=== PATIENT | female | born 1980 | race American Indian/Alaskan Native ===

== ENCOUNTER 2016-11-11 17:57 | Emergency (ER) | payer OTHER ==
[2016-11-11] MEDS ORDERED: ZOFRAN ONE (18:50)
[2016-11-11] MEDS ORDERED: APRESOLINE IV ONE (18:54)
[2016-11-11] MEDS ORDERED: ZOFRAN IV ONE (18:54)
[2016-11-11] MEDS ORDERED: MORPHINE IV ONE (18:54)
[2016-11-11] MEDS ORDERED: REGLAN IV ONE (18:54)
[2016-11-11] MEDS ORDERED: REGLAN ONE (18:56)
--- NOTE | 2016-11-11 19:01 | Emergency Department Report ---
ED Abdominal Pain HPI - General Chief Complaint: Chest Pain Stated Complaint: N/V Time Seen by Provider: 11/11/16 18:47 Source: patient, EMS Mode of arrival: Stretcher Limitations: No Limitations - History of Present Illness Initial Comments: 36 years old female history of diabetes and diabetic gastroparesis, history of high blood pressure. Brought by EMS today for intractable vomiting and abdominal pain. Patient was at [facility] ER today and she was discharged home while she is still vomiting. Patient denied any fever no diarrhea. Describes her pain as diffuse and crampy in nature. Last episode like this for 3 years ago. MD Complaint: abdominal pain -: Last night Location: diffuse Severity: moderate Severity scale (0 -10): 6 Worsens With: eating, vomiting Associated Symptoms: nausea, vomiting. denies: diarrhea, fever, chills, hematemesis, hematochezia, melena, hematuria - Related Data Previous Rx's Medication Instructions Recorded Last Taken Type Lactulose 10 gm PO DAILY PRN #150 ml 11/12/16 Unknown Rx Ondansetron [Zofran Odt] 4 mg PO Q8HR PRN #14 tab.rapdis 11/12/16 Unknown Rx Promethazine [Phenergan SUPPOS] 50 mg [place] Q6H PRN #30 supp.rect 11/12/16 Unknown Rx oxyCODONE /ACETAMINOPHEN [Percocet 1 tab PO Q6HR PRN #10 tablet 11/12/16 Unknown Rx 5/325] Allergies Allergy/AdvReac Type Severity Reaction Status Date / Time No Known Allergies Allergy Verified 11/11/16 18:34 ED Review of Systems ROS: Stated complaint: N/V Other details as noted in HPI Comment: All other systems reviewed and negative Constitutional: denies: chills, fever Respiratory: denies: cough, orthopnea, shortness of breath, SOB with exertion Cardiovascular: denies: palpitations, orthopnea Gastrointestinal: abdominal pain, nausea, vomiting. denies: diarrhea, constipation Neurological: denies: headache, weakness, numbness ED Past Medical Hx - Past Medical History Previous Medical History?: Yes Hx Hypertension: Yes Hx Diabetes: Yes Additional medical history: gastroparesis, cardiomyopathy - Surgical History Past Surgical History?: No - Social History Smoking Status: Never Smoker Substance Use Type: None - Medications Home Medications: Home Medications Medication Instructions Recorded Confirmed Last Taken Type Lactulose 10 gm PO DAILY PRN #150 ml 11/12/16 Unknown Rx Ondansetron [Zofran Odt] 4 mg PO Q8HR PRN #14 tab.rapdis 11/12/16 Unknown Rx Promethazine [Phenergan SUPPOS] 50 mg NV Q6H PRN #30 supp.rect 11/12/16 Unknown Rx oxyCODONE /ACETAMINOPHEN [Percocet 1 tab PO Q6HR PRN #10 tablet 11/12/16 Unknown Rx 5/325] ED Physical Exam - General Limitations: No Limitations General appearance: alert, in distress - Head Head exam: Present: normocephalic - Eye Eye exam: Present: normal appearance - ENT ENT exam: Present: normal exam - Neck Neck exam: Present: normal inspection, full ROM. Absent: meningismus, lymphadenopathy - Respiratory Respiratory exam: Present: normal lung sounds bilaterally. Absent: wheezes, rales, rhonchi, accessory muscle use, decreased breath sounds, prolonged expiratory - Cardiovascular Cardiovascular Exam: Present: tachycardia - GI/Abdominal GI/Abdominal exam: Present: soft, tenderness. Absent: distended, guarding, rebound, rigid, normal bowel sounds, mass, bruit, pulsatile mass, hernia - Extremities Exam Extremities exam: Present: normal inspection - Back Exam Back exam: Present: normal inspection - Neurological Exam Neurological exam: Present: alert, oriented X3, CN II-XII intact, normal gait - Skin Skin exam: Present: warm, normal color ED Course Vital Signs 11/11/16 11/11/16 11/11/16 18:12 19:16 20:16 Temperature 99.5 F Pulse Rate 112 H 115 H Respiratory 16 20 16 Rate Blood Pressure 185/110 204/118 O2 Sat by Pulse 100 100 Oximetry - Reevaluation(s) Reevaluation #1: 11/12/16 00:41 Patient stated that she is feeling better and no more vomiting since she had the Benadryl. Since this is her second visit today for intractable vomiting I recommended admission but patient and her significant others they want to go home with prescription. I informed them that, she can come back if her symptoms don't resolve with outpatient medication. ED Medical Decision Making - Lab Data Result diagrams: 11/11/16 19:00 11/11/16 21:51 Critical care attestation.: If time is entered above; I have spent that time in minutes in the direct care of this critically ill patient, excluding procedure time. ED Disposition Clinical Impression: Abdominal pain, Gastroparesis, Intractable vomiting with nausea Disposition: DC-01 TO HOME OR SELFCARE Is pt being admited?: No Does the pt Need Aspirin: No Condition: Stable Instructions: Acute Nausea and Vomiting (ED), Abdominal Pain (ED) Referrals: PRIMARY CARE, [Primary Care Provider] - 3-5 Days
[2016-11-11] MEDS ORDERED: LOPRESSOR IV ONE ×2 (19:13→19:16)
[2016-11-11 19:14] LABS: Basophils % (Auto) 0.9 % (0.0-1.8); Hematocrit 32.8 % (30.3-42.9); Hemoglobin 10.9 gm/dl (10.1-14.3); Mean Corpuscular HGB Conc 33 % (30-34); Mean Corpuscular Hemoglobin 26 pg (28-32); Mean Corpuscular Volume 80 fl (79-97); Platelet Count 481 K/mm3 (140-440); Red Blood Count 4.11 M/mm3 (3.65-5.03); Red Cell Distribution Width 14.8 % (13.2-15.2); White Blood Count 14.4 K/mm3 (4.5-11.0)
[2016-11-11] MEDS ORDERED: NACL ONE ×2 (20:10→23:22)
[2016-11-11] MEDS ORDERED: NITROSTAT SL ONE (21:02)
[2016-11-11 21:23] LABS: Bilirubin,Urine NEG (Negative); Blood,Urine LG (Negative); Ketones,Urine 80 mg/dL (Negative); Leukocyte Esterase,Urine NEG (Negative); Mucus,Urine FEW /HPF; Nitrite,Urine NEG (Negative); Urobilinogen,Urine < 2.0 mg/dL (<2.0)
[2016-11-11 21:24] LABS: Protein,Urine >500 mg/dL (Negative); RBC,Urine > 182.0 /HPF (0.0-6.0)
[2016-11-11 23:11] LABS: Blood Urea Nitrogen 23 mg/dL (7-17)
[2016-11-11 23:47] LABS: Anion Gap 27 mmol/L; BUN/Creatinine Ratio 18.46; Blood Urea Nitrogen 24 mg/dL (7-17); Calcium 8.9 mg/dL (8.4-10.2); Carbon Dioxide 21 mmol/L (22-30); Chloride 99.1 mmol/L (98-107); Glucose 230 mg/dL (65-100); Potassium 4.4 mmol/L (3.6-5.0); Sodium 143 mmol/L (137-145)
--- NOTE | 2016-11-12 | Cat Scan Report ---
FINAL REPORT PROCEDURE: CT ABDOMEN PELVIS W CON TECHNIQUE: Computerized axial tomography of the abdomen and pelvis was performed after the IV injection of iodinated nonionic contrast. HISTORY: abdominal pain EPIGASTRIC COMPARISON: No prior studies are available for comparison. FINDINGS: There are mild bilateral pleural effusions. Subsegmental atelectatic changes are noted in bilateral lung bases.. Liver, spleen, pancreas and adrenal glands are within normal limits. Bilateral kidneys demonstrate uniform enhancement without hydronephrosis. Aorta is of normal caliber. There is no free fluid or free air. Status post cholecystectomy. Small bowel loops are within normal limits. Large amount of residual stool is noted. Appendix is normal. IMPRESSION: Large amount of residual stool is noted consistent with constipation. Otherwise no acute intra-abdominal or pelvic pathology. Mild degree bilateral pleural effusions. Subsegmental atelectatic changes are noted in bilateral lower lungs. Any underlying early infiltrates cannot be excluded.
[2016-11-12] MEDS ORDERED: BENADRYL ONE (00:07)
[2016-11-12] MEDS ORDERED: BENADRYL IV ONE (00:11)
[2016-11-12 01:32] VITALS: BP 160/88
--- NOTE | 2016-11-12 08:00 | XRay Report ---
PORTABLE CHEST INDICATION: Chest pain, difficulty breathing. COMPARISON: None similar at this institution. FINDINGS: Portable, frontal chest radiograph suggests borderline cardiomegaly. Slight increased bronchovascular prominence centrally, possibly congestive. No significant pleural effusions however. EKG leads. Intact bones. Possible cholecystectomy clips. CONCLUSION: Slight cardiomegaly and possible central congestion, as described. Please correlate. Thank you for the opportunity to participate in this patient's care.
== END 2016-11-12 01:10 | disposition home or self-care (01) ==
LOC: ED 17:57
DX: K31.84 Gastroparesis (principal); R11.2 Nausea with vomiting, unspecified; R10.84 Generalized abdominal pain
CPT/HCPCS: 36415; 71010; 74177; 80048; 81001; 82565; 82962; 83690; 84484; 84520; 84703; 85025; 93005; 93010; 96374; 96375; 99285; J1200; J2270; J2405; J2765; Q9967; J0360

== ENCOUNTER 2016-12-26 15:29 | Inpatient (IN) | payer OTHER ==
[2016-12-26] MEDS ORDERED: ATIVAN ONE ×2 (17:16→17:44)
[2016-12-26] MEDS ORDERED: KEPPRA 1,000 MG in NACL 0.9% 100 ML IV ONE (17:20)
[2016-12-26] MEDS ORDERED: HALDOL IM ONE (17:30)
[2016-12-26] MEDS ORDERED: ATIVAN IV ONE ×2 (17:30→19:46)
[2016-12-26] MEDS ORDERED: GEODON IM ONE ×2 (17:49→19:43)
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
[2016-12-26] MEDS ORDERED: QUELICIN ONE (18:00)
[2016-12-26] MEDS ORDERED: AMIDATE IV ONE (18:00)
[2016-12-26] MEDS ORDERED: DIPRIVAN 10 MG/ML 1,000 MG/100 ML BOTTLE IV ONE (18:06)
[2016-12-26] MEDS ORDERED: VASELINE LIP THERAPY TP PRN (18:08)
[2016-12-26] MEDS ORDERED: ARTIFICIAL TEARS OPHTH OINT OU PRN (18:08)
[2016-12-26] MEDS: DIPRIVAN 10 MG/ML 1,000 MG/100 ML BOTTLE IV SCH (18:15)
[2016-12-26] MEDS ORDERED: NACL 0.9% 1000 ML 1,000 ML IV ONE ×2 (18:33→18:34)
[2016-12-26] MEDS ORDERED: DIPRIVAN 10 MG/ML IV ONE (18:49)
[2016-12-26 18:56] LABS: Urine Drugs of Abuse Note Disclamer
[2016-12-26] MEDS ORDERED: NACL 0.9% 500 ML IV SCH (19:00)
[2016-12-26 19:03] LABS: Basophils % (Auto) 0.3 % (0.0-1.8); Eosinophils % (Auto) 0.1 % (0.0-4.3); Hematocrit 28.1 % (30.3-42.9); Hemoglobin 9.8 gm/dl (10.1-14.3); Mean Corpuscular HGB Conc 35 % (30-34); Mean Corpuscular Hemoglobin 27 pg (28-32); Mean Corpuscular Volume 79 fl (79-97); Platelet Count 393 K/mm3 (140-440); Red Blood Count 3.58 M/mm3 (3.65-5.03); Red Cell Distribution Width 14.2 % (13.2-15.2); White Blood Count 13.4 K/mm3 (4.5-11.0)
[2016-12-26 19:05] LABS: Bilirubin,Urine NEG (Negative); Blood,Urine MOD (Negative); Ketones,Urine NEG (Negative); Leukocyte Esterase,Urine NEG (Negative); Nitrite,Urine NEG (Negative); Urobilinogen,Urine < 2.0 mg/dL (<2.0)
[2016-12-26 19:12] LABS: Protein,Urine >500 mg/dL (Negative)
[2016-12-26 19:19] LABS: Albumin 2.8 g/dL (3.9-5); Albumin/Globulin Ratio 0.9 %; Bilirubin,Total 0.6 mg/dL (0.1-1.2); Chloride 81.6 mmol/L (98-107); Total Protein 5.8 g/dL (6.3-8.2)
[2016-12-26 19:30] LABS: Potassium 2.7 mmol/L (3.6-5.0)
[2016-12-26 19:34] LABS: ABG Base Excess 6.2 mmol/L (-2.0-3.0); ABG HCO3 29.4 mmol/L (20.0-26.0); ABG Oxygen Saturation 93.4 % (95.0-99.0); ABG PH 7.519 pH Units (7.350-7.450); ABG PO2 55.5 mm Hg (80.0-90.0)
[2016-12-26] MEDS ORDERED: VANCOMYCIN/NS 1 GM/250 ML 1 GM/250 ML BAG IV ONE (19:38)
[2016-12-26] MEDS ORDERED: K-DUR PO ONE (19:38)
[2016-12-26] MEDS ORDERED: BENADRYL IV ONE (19:42)
[2016-12-26] MEDS: ZOSYN/NS 3.375GM/50ML 3.375 GM/50 ML BAG IV SCH (20:31)
--- NOTE | 2016-12-26 20:51 | Cat Scan Report ---
FINAL REPORT PROCEDURE: CT HEAD/BRAIN WO CON TECHNIQUE: Computerized tomography of the head was performed without contrast material. HISTORY: new onset seizure COMPARISON: No prior studies are available for comparison. FINDINGS: Skull and scalp: Normal. Paranasal sinuses: Normal. Ventricles and subarachnoid spaces: Normal. Cerebrum: No evidence of hemorrhage, acute infarction or mass . Cerebellum and brainstem: No evidence of hemorrhage, acute infarction or mass. Vasculature: Normal. Comments: None. IMPRESSION: Normal Examination
[2016-12-26] MEDS ORDERED: D50W (25GM) Syringe IV PRN (21:56)
[2016-12-26 22:13] LABS: Phosphorous 3.3 mg/dL (2.5-4.5)
[2016-12-26] MEDS ORDERED: DULCOLAX PR PRN (22:18)
[2016-12-26] MEDS ORDERED: TYLENOL PO PRN (22:18)
[2016-12-26] MEDS ORDERED: ZOFRAN IV PRN (22:18)
[2016-12-26] MEDS ORDERED: MILK OF MAGNESIA PO PRN (22:18)
[2016-12-26] MEDS ORDERED: TYLENOL PR PRN (22:18)
--- NOTE | 2016-12-26 22:25 | History and Physical Report ---
History of Present Illness Date of examination: 12/26/16 History of present illness: There is a 36-year-old man with a history of diabetes complicated by gastroparesis, hypertension was brought to the emergency room because she had a seizure at home. The at bedside stated she had a flare of her gastroparesis for 1 week. Today in the emergency room she also had another seizure. Her glucose was elevated. The patient was intubated for airway protection after his seizure in the emergency room. A review of system is unobtainable PAST MEDICAL HISTORY: diabetes complicated by gastroparesis, hypertension PAST SURGICAL HISTORY: Cholecystectomy FAMILY HISTORY: Hypertension SOCIAL HISTORY: Social alcohol, no tobacco drugs Medications and Allergies Allergies Allergy/AdvReac Type Severity Reaction Status Date / Time No Known Allergies Allergy Verified 11/11/16 18:34 Home Medications Medication Instructions Recorded Confirmed Last Taken Type Ondansetron [Zofran Odt] 4 mg PO Q8HR PRN #14 tab.rapdis 11/12/16 12/26/16 Unknown Rx Promethazine [Phenergan SUPPOS] 50 mg [place] Q6H PRN #30 supp.rect 11/12/16 Unknown Rx Insulin Regular, Human [Novolin R] 22 units SQ AC 12/26/16 12/26/16 Unknown History Active Meds: Active Medications Acetaminophen (Tylenol) 650 mg PO Q4H PRN PRN Reason: Pain MILD(1-3)/Fever >100.5/RICHARDSON Acetaminophen (Tylenol) 650 mg MN Q4H PRN PRN Reason: Pain MILD(1-3)/Fever >100.5/[place] Bisacodyl (Dulcolax) 10 mg MN QDAY PRN PRN Reason: Constipation unrelieved by MOM Dextrose (D50w (25gm) Syringe) 0 ml IV ONCE PRN PRN Reason: Hypoglycemia Enoxaparin Sodium (Lovenox) 30 mg SUB-Q QDAY GUZMAN Hydrophilic Ointment (Vaseline Lip Therapy) 1 applic TP Q2HR PRN PRN Reason: Dry Lips Propofol (Diprivan 10 Mg/Ml) 1,000 mg in 100 mls @ 5.25 mls/hr IV TITR GUZMAN; 5 MCG/KG/MIN PRN Reason: Protocol Last Titration: 12/26/16 20:00 Dose: 30 mcg/kg/min, 31.5 mls/hr Piperacillin Sod/Tazobactam Sod (Zosyn/Ns 3.375gm/50ml) 3.375 gm in 50 mls @ 100 mls/hr IV Q6H GUZMAN Last Admin: 12/26/16 20:31 Dose: 100 mls/hr Insulin Human Regular 100 (units/ Sodium Chloride) 100 mls @ 1 mls/hr IV TITR GUZMAN; 1 UNITS/HR PRN Reason: Protocol Sodium Chloride (Nacl 0.9% 1000 Ml) 1,000 mls @ 150 mls/hr IV DIRECT GUZMAN Magnesium Hydroxide (Milk Of Magnesia) 30 ml PO Q4H PRN PRN Reason: Constipation Multi-Ingred Cream/Lotion/Oil/Oint (Artificial Tears Ophth Oint) 1 applic OU Q4HR PRN PRN Reason: Dry Eye(s) Ondansetron HCl (Zofran) 4 mg IV Q8H PRN PRN Reason: N/V unrelieved by Reglan Sodium Chloride (Nacl 0.9% 500 Ml) 1 ml IV DIRECT GUZMAN Exam - Physical Exam Narrative exam: Gen. appearance: Patient lying in bed in no acute distress, intubated HEENT: Normocephalic/atraumatic, pupils equal round reactive to light, unable to do extraocular movements, no scleral icterus, no JVD or thyromegaly or nodule , neck is supple, mucous membrane moist, unable to examine oral cavity Heart: S1-S2, regular rate and rhythm Lungs: Clear to auscultation bilateral breathing comfortable Abdomen: Positive bowel sounds, soft, nondistended, no organomegaly Extremities: No edema, cyanosis, clubbing Neuro:: Sedated Skin: No rash, nodules, warm dry - Constitutional Vitals: Temp Pulse Resp BP Pulse Ox 104 H 14 124/70 100 12/26/16 21:01 12/26/16 21:01 12/26/16 21:01 12/26/16 21:01 Results - Labs CBC & Chem 7: 12/30/16 05:00 12/29/16 09:12 Labs: Abnormal lab results 12/26/16 12/26/16 12/26/16 Range/Units 17:41 18:35 18:35 WBC 13.4 H (4.5-11.0) K/mm3 RBC 3.58 L (3.65-5.03) M/mm3 Hgb 9.8 L (10.1-14.3) gm/dl Hct 28.1 L (30.3-42.9) % MCH 27 L (28-32) pg MCHC 35 H (30-34) % Lymph % (Auto) 5.4 L (13.4-35.0) % Lymph # 0.7 L (1.2-5.4) K/mm3 Mercer # 0.9 H (0.0-0.8) K/mm3 Seg Neutrophils % 87.2 H (40.0-70.0) % Seg Neutrophils # 11.7 H (1.8-7.7) K/mm3 ABG pH (7.350-7.450) pH Units ABG pO2 (80.0-90.0) mm Hg ABG HCO3 (20.0-26.0) mmol/L ABG O2 Saturation (95.0-99.0) % ABG Base Excess (-2.0-3.0) mmol/L ABG Hemoglobin (12.0-16.0) gm/dl VBG pH (7.320-7.420) Oxyhemoglobin (95.0-99.0) % Potassium 2.7 L* (3.6-5.0) mmol/L BUN 28 H (7-17) mg/dL Creatinine 2.1 H (0.7-1.2) mg/dL Glucose 651 H* (65-100) mg/dL POC Glucose > 500 H (70-105) Lactic Acid (0.7-2.0) mmol/L Total Protein 5.8 L (6.3-8.2) g/dL Albumin 2.8 L (3.9-5) g/dL Salicylates (2.8-20.0) mg/dL 12/26/16 12/26/16 12/26/16 Range/Units 18:35 18:35 18:58 WBC (4.5-11.0) K/mm3 RBC (3.65-5.03) M/mm3 Hgb (10.1-14.3) gm/dl Hct (30.3-42.9) % MCH (28-32) pg MCHC (30-34) % Lymph % (Auto) (13.4-35.0) % Lymph # (1.2-5.4) K/mm3 Mercer # (0.0-0.8) K/mm3 Seg Neutrophils % (40.0-70.0) % Seg Neutrophils # (1.8-7.7) K/mm3 ABG pH (7.350-7.450) pH Units ABG pO2 (80.0-90.0) mm Hg ABG HCO3 (20.0-26.0) mmol/L ABG O2 Saturation (95.0-99.0) % ABG Base Excess (-2.0-3.0) mmol/L ABG Hemoglobin (12.0-16.0) gm/dl VBG pH 7.467 H (7.320-7.420) Oxyhemoglobin (95.0-99.0) % Potassium (3.6-5.0) mmol/L BUN (7-17) mg/dL Creatinine (0.7-1.2) mg/dL Glucose (65-100) mg/dL POC Glucose (70-105) Lactic Acid 6.20 H* (0.7-2.0) mmol/L Total Protein (6.3-8.2) g/dL Albumin (3.9-5) g/dL Salicylates < 0.3 L (2.8-20.0) mg/dL 12/26/16 12/26/16 Range/Units 19:20 21:06 WBC (4.5-11.0) K/mm3 RBC (3.65-5.03) M/mm3 Hgb (10.1-14.3) gm/dl Hct (30.3-42.9) % MCH (28-32) pg MCHC (30-34) % Lymph % (Auto) (13.4-35.0) % Lymph # (1.2-5.4) K/mm3 Mercer # (0.0-0.8) K/mm3 Seg Neutrophils % (40.0-70.0) % Seg Neutrophils # (1.8-7.7) K/mm3 ABG pH 7.519 H (7.350-7.450) pH Units ABG pO2 55.5 L (80.0-90.0) mm Hg ABG HCO3 29.4 H (20.0-26.0) mmol/L ABG O2 Saturation 93.4 L (95.0-99.0) % ABG Base Excess 6.2 H (-2.0-3.0) mmol/L ABG Hemoglobin 8.9 L (12.0-16.0) gm/dl VBG pH (7.320-7.420) Oxyhemoglobin 91.3 L (95.0-99.0) % Potassium (3.6-5.0) mmol/L BUN (7-17) mg/dL Creatinine (0.7-1.2) mg/dL Glucose (65-100) mg/dL POC Glucose > 500 H (70-105) Lactic Acid (0.7-2.0) mmol/L Total Protein (6.3-8.2) g/dL Albumin (3.9-5) g/dL Salicylates (2.8-20.0) mg/dL - Imaging and Cardiology CT Scan - head: report reviewed Assessment and Plan Assessment HONK New onset seizure probably secondary to elevated glucose Hypertension Hypokalemia Plan Admit to medicine Start IV fluids, insulin drip Monitor finger sticks, serum electrolytes Obtain EEG, consult neurology Change propofol to Ativan drip Consult critical care, replete potassium DVT prophylaxis
[2016-12-26 22:56] LABS: Calcium 8.6 mg/dL (8.4-10.2); Chloride 92.7 mmol/L (98-107)
[2016-12-26 23:22] LABS: Potassium 2.9 mmol/L (3.6-5.0)
[2016-12-26] MEDS ORDERED: KCL 10MEQ/100ML 10 MEQ/100 ML BAG IV ONE (23:25)
[2016-12-27] MEDS: DIPRIVAN 10 MG/ML 1,000 MG/100 ML BOTTLE IV SCH ×4 (00:55→20:51)
[2016-12-27 02:18] LABS: ABG Base Excess 4.9 mmol/L (-2.0-3.0); ABG HCO3 28.9 mmol/L (20.0-26.0); ABG Oxygen Saturation 99.4 % (95.0-99.0); ABG PCO2 40.1 mm Hg; ABG PH 7.475 pH Units (7.350-7.450); ABG PO2 228.4 mm Hg (80.0-90.0)
[2016-12-27] MEDS: NACL 0.9% 1000 ML 1,000 ML IV SCH ×3 (02:22→17:21)
[2016-12-27] MEDS: KCL 10MEQ/100ML 10 MEQ/100 ML BAG IV SCH ×6 (02:48→11:45)
[2016-12-27] MEDS: ZOSYN/NS 3.375GM/50ML 3.375 GM/50 ML BAG IV SCH ×2 (02:59→10:10)
[2016-12-27 03:23] LABS: Calcium 8.3 mg/dL (8.4-10.2); Chloride 100.2 mmol/L (98-107)
[2016-12-27 03:34] LABS: Potassium 2.5 mmol/L (3.6-5.0)
[2016-12-27 05:03] LABS: Calcium 8.3 mg/dL (8.4-10.2); Chloride 101.7 mmol/L (98-107)
[2016-12-27 05:04] LABS: Potassium 2.8 mmol/L (3.6-5.0)
[2016-12-27 07:03] LABS: Calcium 8.3 mg/dL (8.4-10.2)
[2016-12-27 07:13] LABS: Potassium 2.7 mmol/L (3.6-5.0)
--- NOTE | 2016-12-27 09:17 | XRay Report ---
AP CHEST :12/26/16 15:29:00 CLINICAL: Post intubation. COMPARISON:11/11/16 FINDINGS: Endotracheal tube is been inserted and the tip is satisfactory. A nasogastric tube tip is below the diaphragm and not imaged. Normal heart and pulmonary vessels. The lungs are clear except for a few calcified granulomata in the left lung. No pneumothorax. IMPRESSION: Satisfactory position of the endotracheal tube.No acute cardiopulmonary process.
[2016-12-27] MEDS: LOVENOX SUB-Q SCH (09:34)
--- NOTE | 2016-12-27 12:35 | Consultation ---
History of Present Illness Consult date: 12/27/16 Requesting physician: HANNAH ROQUE Reason for consult: other (Intubated secondary to aggressive combative state) History of present illness: 36 y/o female admitted with acute respiratory failure, secondary to needing sedation to calm the patient. Per ED notes, patient had several generalized tonic clonic seizures. After being given aTivan in the ED, patient became confused and combative. She was intubated as she was felt to be a threat to others and herself. She is hypokalemic and in acute renal failure. Past History Past Medical History: other (unable to obtain) Past Surgical History: Other (unable to obtain) Medications and Allergies Allergies Allergy/AdvReac Type Severity Reaction Status Date / Time No Known Allergies Allergy Verified 11/11/16 18:34 Home Medications Medication Instructions Recorded Confirmed Last Taken Type Ondansetron [Zofran Odt] 4 mg PO Q8HR PRN #14 tab.rapdis 11/12/16 12/26/16 Unknown Rx Promethazine [Phenergan SUPPOS] 50 mg MS Q6H PRN #30 supp.rect 11/12/16 Unknown Rx Insulin Regular, Human [Novolin R] 22 units SQ AC 12/26/16 12/26/16 Unknown History Active Meds: Active Medications Acetaminophen (Tylenol) 650 mg PO Q4H PRN PRN Reason: Pain MILD(1-3)/Fever >100.5/[place] Acetaminophen (Tylenol) 650 mg MS Q4H PRN PRN Reason: Pain MILD(1-3)/Fever >100.5/[place] Bisacodyl (Dulcolax) 10 mg MS QDAY PRN PRN Reason: Constipation unrelieved by MOM Dextrose (D50w (25gm) Syringe) 0 ml IV ONCE PRN PRN Reason: Hypoglycemia Enoxaparin Sodium (Lovenox) 40 mg SUB-Q QDAY@1000 GUZMAN Last Admin: 12/27/16 09:34 Dose: 40 mg Hydrophilic Ointment (Vaseline Lip Therapy) 1 applic TP Q2HR PRN PRN Reason: Dry Lips Propofol (Diprivan 10 Mg/Ml) 1,000 mg in 100 mls @ 5.25 mls/hr IV TITR GUZMAN; 5 MCG/KG/MIN PRN Reason: Protocol Last Titration: 12/27/16 08:00 Dose: Infused Piperacillin Sod/Tazobactam Sod (Zosyn/Ns 3.375gm/50ml) 3.375 gm in 50 mls @ 100 mls/hr IV Q6H GUZMAN Last Admin: 12/27/16 10:10 Dose: 100 mls/hr Insulin Human Regular 100 (units/ Sodium Chloride) 100 mls @ 1 mls/hr IV TITR GUZMAN; 1 UNITS/HR PRN Reason: Protocol Sodium Chloride (Nacl 0.9% 1000 Ml) 1,000 mls @ 150 mls/hr IV DIRECT GUZMAN Last Admin: 12/27/16 09:35 Dose: 150 mls/hr Magnesium Hydroxide (Milk Of Magnesia) 30 ml PO Q4H PRN PRN Reason: Constipation Multi-Ingred Cream/Lotion/Oil/Oint (Artificial Tears Ophth Oint) 1 applic OU Q4HR PRN PRN Reason: Dry Eye(s) Ondansetron HCl (Zofran) 4 mg IV Q8H PRN PRN Reason: N/V unrelieved by Reglan Sodium Chloride (Nacl 0.9% 500 Ml) 1 ml IV DIRECT GUZMAN Review of Systems ROS unobtainable: due to endotracheal tube, due to mental status Physical Examination Vital signs: Vital Signs Resp Pulse Ox 16 100 12/26/16 18:16 12/26/16 18:16 General appearance: appears uncomfortable, other (appears older than stated age) Eyes: non-icteric, injected ENT: other (orally intubated and sedated on vent, no family at bedside) Neck: supple Ascultation: Bilateral: diminished breath sounds Percussion: Bilateral: not dull Cardiovascular: regular rate and rhythm Gastrointestinal: normoactive bowel sounds, soft, non-tender Extremities: no cyanosis, no edema Results - Laboratory Findings CBC and BMP: 12/26/16 18:35 12/27/16 06:15 ABG ABG pH 7.475 pH Units (7.350-7.450) H 12/27/16 02:11 ABG pCO2 40.1 mm Hg 12/27/16 02:11 ABG pO2 228.4 mm Hg (80.0-90.0) H 12/27/16 02:11 ABG O2 Saturation 99.4 % (95.0-99.0) H 12/27/16 02:11 Abnormal lab findings: Abnormal Labs 12/26/16 12/26/16 12/27/16 23:14 Unknown 02:11 ABG pH 7.475 H ABG pO2 228.4 H ABG HCO3 28.9 H ABG O2 Saturation 99.4 H ABG Base Excess 4.9 H ABG Hemoglobin 8.4 L Potassium BUN Creatinine Glucose POC Glucose 389 H Hemoglobin A1c 8.7 H Calcium 12/27/16 12/27/16 12/27/16 02:18 03:38 04:17 ABG pH ABG pO2 ABG HCO3 ABG O2 Saturation ABG Base Excess ABG Hemoglobin Potassium 2.5 L* 2.8 L* BUN 25 H 25 H Creatinine 1.9 H 1.9 H Glucose 203 H 185 H POC Glucose 226 H Hemoglobin A1c Calcium 8.3 L 8.3 L 12/27/16 12/27/16 12/27/16 04:39 06:06 06:15 ABG pH ABG pO2 ABG HCO3 ABG O2 Saturation ABG Base Excess ABG Hemoglobin Potassium 2.7 L* BUN 25 H Creatinine 1.8 H Glucose 168 H POC Glucose 180 H 200 H Hemoglobin A1c Calcium 8.3 L 12/27/16 06:40 ABG pH ABG pO2 ABG HCO3 ABG O2 Saturation ABG Base Excess ABG Hemoglobin Potassium BUN Creatinine Glucose POC Glucose 182 H Hemoglobin A1c Calcium - Diagnostic Findings Chest x-ray: image reviewed (clear) Assessment and Plan 36 y/o female with acute respiratory failure and seizure with encephalopathy 1. Increase propofol for adequate sedation. May need to add scheduled haldol when weaning diprovan off 2. Correct electrolytes. Checking stat Mag levels to see why K is so low. Need to repeat K later this am. When I spoke with night nurse asked for 10am draw, not done. Will order now 3. Continue vent support, CXR is clear 4. Overall prognosis is guarded CCt 31 minutes
--- NOTE | 2016-12-27 13:44 | Progress Note ---
Assessment and Plan Assessment and plan: Patient is a 36-year-old woman with a history of insulin-dependent diabetes mellitus, gastroparesis who presented with altered mental status and seizures at home. She was intubated for airway protection. -Acute respiratory failure: Continue mechanical ventilator, Carolyn -Status epilepticus: re-ordered IV Keppra, Consult neurology, EEG ordered -Acute encephalopathy due to seizure, treat seizures -Hypokalemia: Replace and recheck magnesium level -Uncontrolled type 2 diabetes mellitus with honk versus DKA: Treat with insulin drip, critical care is following Additional critical care time 34 minutes History Interval history: Patient was seen and examined. Follow-up on current diagnosis/seizures. Patient currently intubated and sedated with the Proventil. Hospitalist Physical - Physical exam Narrative exam: GEN: Ill-appearing, intubated and sedated HEENT: NCAT, EOMI, PERRL, OP with ET tube in place NECK: supple, no adenopathy, no thyromegaly, no JVD CVS/HEART: RRR, NORMAL S1S2, NO JVD, pulses present bilaterally CHEST/LUNGS: CTA B, Symmetrical chest expansion, good air entry bilaterally GI/Abdomen: soft, NTND, good bowel sounds, no guarding or rebound /Bladder: no suprapubic tenderness, no CVA or paraspinal tenderness EXT/Skin: no c/c/e, no obvious rash MSK: Spontaneous movement 4 Neuro: Doesn't follow commands Psych: Sedated - Constitutional Vitals: Temp Pulse Resp BP Pulse Ox 95 F L 76 12 111/70 100 12/27/16 08:00 12/27/16 10:30 12/27/16 10:30 12/27/16 10:30 12/27/16 10:30 Results - Labs CBC & Chem 7: 12/26/16 18:35 12/27/16 06:15 Labs: Laboratory Last Values WBC 13.4 K/mm3 (4.5-11.0) H 12/26/16 18:35 RBC 3.58 M/mm3 (3.65-5.03) L 12/26/16 18:35 Hgb 9.8 gm/dl (10.1-14.3) L 12/26/16 18:35 Hct 28.1 % (30.3-42.9) L 12/26/16 18:35 MCV 79 fl (79-97) 12/26/16 18:35 MCH 27 pg (28-32) L 12/26/16 18:35 MCHC 35 % (30-34) H 12/26/16 18:35 RDW 14.2 % (13.2-15.2) 12/26/16 18:35 Plt Count 393 K/mm3 (140-440) 12/26/16 18:35 Lymph % (Auto) 5.4 % (13.4-35.0) L 12/26/16 18:35 [place] % (Auto) 7.0 % (0.0-7.3) 12/26/16 18:35 Eos % (Auto) 0.1 % (0.0-4.3) 12/26/16 18:35 Baso % (Auto) 0.3 % (0.0-1.8) 12/26/16 18:35 Lymph # 0.7 K/mm3 (1.2-5.4) L 12/26/16 18:35 [place] # 0.9 K/mm3 (0.0-0.8) H 12/26/16 18:35 Eos # 0.0 K/mm3 (0.0-0.4) 12/26/16 18:35 Baso # 0.0 K/mm3 (0.0-0.1) 12/26/16 18:35 Seg Neutrophils % 87.2 % (40.0-70.0) H 12/26/16 18:35 Seg Neutrophils # 11.7 K/mm3 (1.8-7.7) H 12/26/16 18:35 ABG pH 7.475 pH Units (7.350-7.450) H 12/27/16 02:11 ABG pCO2 40.1 mm Hg 12/27/16 02:11 ABG pO2 228.4 mm Hg (80.0-90.0) H 12/27/16 02:11 ABG HCO3 28.9 mmol/L (20.0-26.0) H 12/27/16 02:11 ABG O2 Saturation 99.4 % (95.0-99.0) H 12/27/16 02:11 ABG O2 Content 12.0 (0.0-44) 12/27/16 02:11 ABG Base Excess 4.9 mmol/L (-2.0-3.0) H 12/27/16 02:11 ABG Hemoglobin 8.4 gm/dl (12.0-16.0) L 12/27/16 02:11 ABG Carboxyhemoglobin 1.8 % (0.0-5.0) 12/27/16 02:11 ABG Methemoglobin 0.4 % (0.0-1.5) 12/27/16 02:11 VBG pH 7.467 (7.320-7.420) H 12/26/16 18:35 Oxyhemoglobin 97.2 % (95.0-99.0) 12/27/16 02:11 FiO2 45 % 12/27/16 02:11 Sodium 140 mmol/L (137-145) 12/27/16 06:15 Potassium 2.7 mmol/L (3.6-5.0) L* 12/27/16 06:15 Chloride 102.0 mmol/L (98-107) 12/27/16 06:15 Carbon Dioxide 27 mmol/L (22-30) 12/27/16 06:15 Anion Gap 14 mmol/L 12/27/16 06:15 BUN 25 mg/dL (7-17) H 12/27/16 06:15 Creatinine 1.8 mg/dL (0.7-1.2) H 12/27/16 06:15 Estimated GFR 39 ml/min 12/27/16 06:15 BUN/Creatinine Ratio 14 % 12/27/16 06:15 Glucose 168 mg/dL (65-100) H 12/27/16 06:15 POC Glucose 182 (70-105) H 12/27/16 06:40 Hemoglobin A1c 8.7 % (4-6) H 12/26/16 Unknown Lactic Acid 6.20 mmol/L (0.7-2.0) H* 12/26/16 18:58 Calcium 8.3 mg/dL (8.4-10.2) L 12/27/16 06:15 Phosphorus 3.30 mg/dL (2.5-4.5) 12/26/16 18:35 Magnesium 2.00 mg/dL (1.7-2.3) 12/26/16 18:35 Total Bilirubin 0.60 mg/dL (0.1-1.2) 12/26/16 18:35 AST 16 units/L (5-40) 12/26/16 18:35 ALT 10 units/L (7-56) 12/26/16 18:35 Alkaline Phosphatase 82 units/L (35-129) 12/26/16 18:35 Total Protein 5.8 g/dL (6.3-8.2) L 12/26/16 18:35 Albumin 2.8 g/dL (3.9-5) L 12/26/16 18:35 Albumin/Globulin Ratio 0.9 % 12/26/16 18:35 HCG, Quant < 2 mIU/mL (0-4) 12/26/16 18:35 Urine Color Yellow (Yellow) 12/26/16 18:37 Urine Turbidity Clear (Clear) 12/26/16 18:37 Urine pH 6.0 (5.0-7.0) 12/26/16 18:37 Ur Specific [place] 1.023 (1.003-1.030) 12/26/16 18:37 Urine Protein >500 mg/dL (Negative) 12/26/16 18:37 Urine Glucose (UA) >=500 mg/dL (Negative) 12/26/16 18:37 Urine Ketones Neg mg/dL (Negative) 12/26/16 18:37 Urine Blood Mod (Negative) 12/26/16 18:37 Urine Nitrite Neg (Negative) 12/26/16 18:37 Urine Bilirubin Neg (Negative) 12/26/16 18:37 Urine Urobilinogen < 2.0 mg/dL (<2.0) 12/26/16 18:37 Ur Leukocyte Esterase Neg (Negative) 12/26/16 18:37 Urine WBC (Auto) 2.0 /HPF (0.0-6.0) 12/26/16 18:37 Urine RBC (Auto) 1.0 /HPF (0.0-6.0) 12/26/16 18:37 U Epithel Cells (Auto) < 1.0 /HPF (0-13.0) 12/26/16 18:37 Urine HCG, Qual Negative (Negative) 12/26/16 18:37 Salicylates < 0.3 mg/dL (2.8-20.0) L 12/26/16 18:35 Urine Opiates Screen Presumptive negative 12/26/16 18:37 Urine Methadone Screen Presumptive negative 12/26/16 18:37 Acetaminophen < 15.0 ug/mL (10.0-30.0) 12/26/16 18:35 Ur Barbiturates Screen Presumptive negative 12/26/16 18:37 Ur Phencyclidine Scrn Presumptive negative 12/26/16 18:37 Ur Amphetamines Screen Presumptive negative 12/26/16 18:37 U Benzodiazepines Scrn Presumptive negative 12/26/16 18:37 Urine Cocaine Screen Presumptive negative 12/26/16 18:37 U Marijuana (THC) Screen Presumptive negative 12/26/16 18:37 Drugs of Abuse Note Disclamer 12/26/16 18:37
[2016-12-27] MEDS: KEPPRA 500 MG in NACL 0.9% 100 ML IV SCH ×2 (14:52→21:52)
[2016-12-27 18:39] LABS: Calcium 7.9 mg/dL (8.4-10.2); Chloride 103.6 mmol/L (98-107); Potassium 3.4 mmol/L (3.6-5.0)
[2016-12-27] MEDS ORDERED: NovoLIN R 100 UNITS in NACL 0.9% 99 ML IV SCH (21:00)
[2016-12-27 22:49] LABS: Calcium 7.8 mg/dL (8.4-10.2); Chloride 106.1 mmol/L (98-107)
[2016-12-28] MEDS: NACL 0.9% 1000 ML 1,000 ML IV SCH ×4 (00:10→20:35)
[2016-12-28] MEDS: DIPRIVAN 10 MG/ML 1,000 MG/100 ML BOTTLE IV SCH ×5 (01:28→21:52)
[2016-12-28] MEDS: KCL 10MEQ/100ML 10 MEQ/100 ML BAG IV SCH ×4 (01:40→04:53)
[2016-12-28 06:59] LABS: Hematocrit 21.8 % (30.3-42.9); Hemoglobin 7.7 gm/dl (10.1-14.3); Mean Corpuscular HGB Conc 35 % (30-34); Mean Corpuscular Hemoglobin 28 pg (28-32); Mean Corpuscular Volume 78 fl (79-97); Platelet Count 306 K/mm3 (140-440); Red Blood Count 2.79 M/mm3 (3.65-5.03); Red Cell Distribution Width 14.8 % (13.2-15.2); White Blood Count 11.5 K/mm3 (4.5-11.0)
[2016-12-28 07:18] LABS: Calcium 7.8 mg/dL (8.4-10.2); Chloride 107.9 mmol/L (98-107); Potassium 3.5 mmol/L (3.6-5.0)
[2016-12-28 07:18] LABS: ABG Base Excess -2.7 mmol/L (-2.0-3.0); ABG HCO3 21.9 mmol/L (20.0-26.0); ABG Oxygen Saturation 98.6 % (95.0-99.0); ABG PCO2 37.1 mm Hg; ABG PH 7.389 pH Units (7.350-7.450); ABG PO2 133.5 mm Hg (80.0-90.0)
[2016-12-28] MEDS: LOVENOX SUB-Q SCH (09:13)
[2016-12-28] MEDS: KEPPRA 500 MG in NACL 0.9% 100 ML IV SCH ×2 (09:13→22:48)
--- NOTE | 2016-12-28 09:22 | XRay Report ---
AP CHEST :12/28/16 02:06 CLINICAL: Intubated.Follow up respiratory failure. COMPARISON:12/26/16 FINDINGS: The endotracheal tube is in satisfactory position. The nasogastric tube has been pulled back and is in the mid esophagus. The cardiac silhouette is larger but this may be due to technique. Redistribution of pulmonary blood flow to the upper lobes. No airspace disease or pleural effusion. No pneumothorax. IMPRESSION: Possible cardiac enlargement since the last exam.Recommend advancement of the nasogastric tube into the stomach.
[2016-12-28] MEDS ORDERED: SIMPLE SYRUP FEEDTUBE PRN ×2 (11:00)
[2016-12-28] MEDS ORDERED: SODIUM BICARBONATE FEEDTUBE PRN (11:00)
[2016-12-28] MEDS ORDERED: PANCREAZE DR 10,500 UNIT FEEDTUBE PRN (11:00)
--- NOTE | 2016-12-28 11:29 | XRay Report ---
KUB: 12/28/16 10:46:00 CLINICAL: Nasogastric tube placement. FINDINGS: The nasogastric tube tip is in the upper stomach in satisfactory position.Normal gas pattern. IMPRESSION: Satisfactory position of the nasogastric tube.
[2016-12-28] MEDS: NOVOLOG SUB-Q SCH ×2 (11:55→17:41)
--- NOTE | 2016-12-28 12:49 | Progress Note ---
Assessment and Plan Assessment and plan: Patient is a 36-year-old woman with a history of insulin-dependent diabetes mellitus, gastroparesis who presented with altered mental status and seizures at home. She was intubated for airway protection. -Acute respiratory failure: Continue mechanical ventilator, -Status epilepticus: re-ordered IV Keppra, Consult neurology, EEG ordered -Acute encephalopathy due to seizure, treat seizures -Hypokalemia: Replace and recheck magnesium level -Uncontrolled type 2 diabetes mellitus with honk: critical care is following -Hypokalemai: replace and recheck -DVT prophylaxis: scd hold dvt chemoprophylaxis due to drop in hct -Drop in hct: recheck cbc History Interval history: Patient was seen and examined. Follow-up on current diagnosis/seizures. Patient currently intubated and sedated with the Giselatil. Hospitalist Physical - Physical exam Narrative exam: GEN: Ill-appearing, intubated and sedated HEENT: NCAT, EOMI, PERRL, OP with ET tube in place NECK: supple, no adenopathy, no thyromegaly, no JVD CVS/HEART: RRR, NORMAL S1S2, NO JVD, pulses present bilaterally CHEST/LUNGS: CTA B, Symmetrical chest expansion, good air entry bilaterally GI/Abdomen: soft, NTND, good bowel sounds, no guarding or rebound /Bladder: no suprapubic tenderness, no CVA or paraspinal tenderness EXT/Skin: no c/c/e, no obvious rash MSK: Spontaneous movement 4 Neuro: Doesn't follow commands Psych: Sedated - Constitutional Vitals: Temp Pulse Resp BP Pulse Ox 97.6 F 77 12 165/85 100 12/28/16 12:00 12/28/16 12:20 12/28/16 12:20 12/28/16 12:20 12/28/16 12:20 Results - Labs CBC & Chem 7: 12/28/16 06:28 12/28/16 06:28 Labs: Laboratory Last Values WBC 11.5 K/mm3 (4.5-11.0) H 12/28/16 06:28 RBC 2.79 M/mm3 (3.65-5.03) L 12/28/16 06:28 Hgb 7.7 gm/dl (10.1-14.3) L 12/28/16 06:28 Hct 21.8 % (30.3-42.9) L D 12/28/16 06:28 MCV 78 fl (79-97) L 12/28/16 06:28 MCH 28 pg (28-32) 12/28/16 06:28 MCHC 35 % (30-34) H 12/28/16 06:28 RDW 14.8 % (13.2-15.2) 12/28/16 06:28 Plt Count 306 K/mm3 (140-440) 12/28/16 06:28 Lymph % (Auto) 5.4 % (13.4-35.0) L 12/26/16 18:35 [place] % (Auto) 7.0 % (0.0-7.3) 12/26/16 18:35 Eos % (Auto) 0.1 % (0.0-4.3) 12/26/16 18:35 Baso % (Auto) 0.3 % (0.0-1.8) 12/26/16 18:35 Lymph # 0.7 K/mm3 (1.2-5.4) L 12/26/16 18:35 [place] # 0.9 K/mm3 (0.0-0.8) H 12/26/16 18:35 Eos # 0.0 K/mm3 (0.0-0.4) 12/26/16 18:35 Baso # 0.0 K/mm3 (0.0-0.1) 12/26/16 18:35 Seg Neutrophils % 87.2 % (40.0-70.0) H 12/26/16 18:35 Seg Neutrophils # 11.7 K/mm3 (1.8-7.7) H 12/26/16 18:35 ABG pH 7.389 pH Units (7.350-7.450) 12/28/16 06:00 ABG pCO2 37.1 mm Hg 12/28/16 06:00 ABG pO2 133.5 mm Hg (80.0-90.0) H 12/28/16 06:00 ABG HCO3 21.9 mmol/L (20.0-26.0) 12/28/16 06:00 ABG O2 Saturation 98.6 % (95.0-99.0) 12/28/16 06:00 ABG O2 Content 11.6 (0.0-44) 12/28/16 06:00 ABG Base Excess -2.7 mmol/L (-2.0-3.0) L 12/28/16 06:00 ABG Hemoglobin 8.4 gm/dl (12.0-16.0) L 12/28/16 06:00 ABG Carboxyhemoglobin 1.7 % (0.0-5.0) 12/28/16 06:00 ABG Methemoglobin 0.5 % (0.0-1.5) 12/28/16 06:00 VBG pH 7.467 (7.320-7.420) H 12/26/16 18:35 Oxyhemoglobin 96.5 % (95.0-99.0) 12/28/16 06:00 FiO2 30 % 12/28/16 06:00 Sodium 141 mmol/L (137-145) 12/28/16 06:28 Potassium 3.5 mmol/L (3.6-5.0) L 12/28/16 06:28 Chloride 107.9 mmol/L (98-107) H 12/28/16 06:28 Carbon Dioxide 21 mmol/L (22-30) L 12/28/16 06:28 Anion Gap 16 mmol/L 12/28/16 06:28 BUN 18 mg/dL (7-17) H 12/28/16 06:28 Creatinine 1.5 mg/dL (0.7-1.2) H 12/28/16 06:28 Estimated GFR 48 ml/min 12/28/16 06:28 BUN/Creatinine Ratio 12 % 12/28/16 06:28 Glucose 224 mg/dL (65-100) H 12/28/16 06:28 POC Glucose 264 (70-105) H 12/28/16 10:02 Hemoglobin A1c 8.7 % (4-6) H 12/26/16 Unknown Lactic Acid 6.20 mmol/L (0.7-2.0) H* 12/26/16 18:58 Calcium 7.8 mg/dL (8.4-10.2) L 12/28/16 06:28 Phosphorus 3.30 mg/dL (2.5-4.5) 12/26/16 18:35 Magnesium 1.80 mg/dL (1.7-2.3) 12/27/16 18:14 Total Bilirubin 0.60 mg/dL (0.1-1.2) 12/26/16 18:35 AST 16 units/L (5-40) 12/26/16 18:35 ALT 10 units/L (7-56) 12/26/16 18:35 Alkaline Phosphatase 82 units/L (35-129) 12/26/16 18:35 Total Protein 5.8 g/dL (6.3-8.2) L 12/26/16 18:35 Albumin 2.8 g/dL (3.9-5) L 12/26/16 18:35 Albumin/Globulin Ratio 0.9 % 12/26/16 18:35 HCG, Quant < 2 mIU/mL (0-4) 12/26/16 18:35 Urine Color Yellow (Yellow) 12/26/16 18:37 Urine Turbidity Clear (Clear) 12/26/16 18:37 Urine pH 6.0 (5.0-7.0) 12/26/16 18:37 Ur Specific [place] 1.023 (1.003-1.030) 12/26/16 18:37 Urine Protein >500 mg/dL (Negative) 12/26/16 18:37 Urine Glucose (UA) >=500 mg/dL (Negative) 12/26/16 18:37 Urine Ketones Neg mg/dL (Negative) 12/26/16 18:37 Urine Blood Mod (Negative) 12/26/16 18:37 Urine Nitrite Neg (Negative) 12/26/16 18:37 Urine Bilirubin Neg (Negative) 12/26/16 18:37 Urine Urobilinogen < 2.0 mg/dL (<2.0) 12/26/16 18:37 Ur Leukocyte Esterase Neg (Negative) 12/26/16 18:37 Urine WBC (Auto) 2.0 /HPF (0.0-6.0) 12/26/16 18:37 Urine RBC (Auto) 1.0 /HPF (0.0-6.0) 12/26/16 18:37 U Epithel Cells (Auto) < 1.0 /HPF (0-13.0) 12/26/16 18:37 Urine HCG, Qual Negative (Negative) 12/26/16 18:37 Salicylates < 0.3 mg/dL (2.8-20.0) L 12/26/16 18:35 Urine Opiates Screen Presumptive negative 12/26/16 18:37 Urine Methadone Screen Presumptive negative 12/26/16 18:37 Acetaminophen < 15.0 ug/mL (10.0-30.0) 12/26/16 18:35 Ur Barbiturates Screen Presumptive negative 12/26/16 18:37 Ur Phencyclidine Scrn Presumptive negative 12/26/16 18:37 Ur Amphetamines Screen Presumptive negative 12/26/16 18:37 U Benzodiazepines Scrn Presumptive negative 12/26/16 18:37 Urine Cocaine Screen Presumptive negative 12/26/16 18:37 U Marijuana (THC) Screen Presumptive negative 12/26/16 18:37 Drugs of Abuse Note Disclamer 12/26/16 18:37
[2016-12-28] MEDS ORDERED: MAGNESIUM SULFATE 2GM/50ML 2 GM/50 ML BAG IV ONE (14:09)
--- NOTE | 2016-12-28 14:14 | Progress Note ---
Assessment and Plan 36 y/o female with acute respiratory failure and seizure with encephalopathy 1. Follow up neurology recs and EEG read 2. Ordered 2 grams of Mag to be administered. 3. Continue vent support, CXR is clear 4. Overall prognosis is guarded 5. Given patient's mental state, we will likely have to just extubate and restrain as needed if she remains encephalopathic. Follow up triglyceride level given patient being on Propofol 6. Nursing asked for BP help, per chart has a history of HTN but no meds available. Added PRN hydralazine and then started scheduled HCTZ. CCt 31 minutes Subjective Date of service: 12/28/16 Interval history: No acute events. Stable. CXR remains clear. Still on high doses of propofol. Becomes very agitated when trying to wean. [facility] has ordered Neuro consult and EEG. Renal Function improving. Objective Vital Signs - 12hr 12/28/16 12/28/16 12/28/16 02:20 02:30 02:40 Temperature Pulse Rate 96 H 107 H 97 H Respiratory 12 15 12 Rate Blood Pressure 168/96 181/97 181/97 O2 Sat by Pulse 100 100 100 Oximetry 12/28/16 12/28/16 12/28/16 02:50 03:00 03:10 Temperature Pulse Rate 94 H 99 H 89 Respiratory 12 11 L 12 Rate Blood Pressure 149/87 155/87 155/87 O2 Sat by Pulse 100 100 100 Oximetry 12/28/16 12/28/16 12/28/16 03:20 03:30 03:40 Temperature Pulse Rate 84 86 84 Respiratory 12 12 12 Rate Blood Pressure 155/87 120/75 120/75 O2 Sat by Pulse 100 100 100 Oximetry 12/28/16 12/28/16 12/28/16 03:50 03:56 04:00 Temperature 98.1 F Pulse Rate 81 79 Respiratory 12 12 Rate Blood Pressure 120/75 114/69 O2 Sat by Pulse 100 100 Oximetry 12/28/16 12/28/16 12/28/16 04:10 04:20 04:30 Temperature Pulse Rate 78 77 100 H Respiratory 12 12 14 Rate Blood Pressure 114/69 114/69 138/91 O2 Sat by Pulse 100 100 100 Oximetry 12/28/16 12/28/16 12/28/16 04:40 04:50 05:00 Temperature Pulse Rate 80 80 91 H Respiratory 12 12 10 L Rate Blood Pressure 138/91 138/91 148/91 O2 Sat by Pulse 100 100 100 Oximetry 12/28/16 12/28/16 12/28/16 05:10 05:20 05:30 Temperature Pulse Rate 92 H 99 H 94 H Respiratory 13 9 L 12 Rate Blood Pressure 148/91 148/91 164/96 O2 Sat by Pulse 100 100 100 Oximetry 12/28/16 12/28/16 12/28/16 05:40 05:50 06:00 Temperature Pulse Rate 93 H 101 H Respiratory 12 14 Rate Blood Pressure 148/91 148/91 145/100 O2 Sat by Pulse 100 94 100 Oximetry 12/28/16 12/28/16 12/28/16 06:10 06:20 06:30 Temperature Pulse Rate 88 82 90 Respiratory 12 12 13 Rate Blood Pressure 145/100 145/100 151/83 O2 Sat by Pulse 100 100 100 Oximetry 12/28/16 12/28/16 12/28/16 06:40 06:50 07:00 Temperature Pulse Rate 82 84 82 Respiratory 12 10 L 11 L Rate Blood Pressure 151/83 151/83 159/90 O2 Sat by Pulse 100 100 100 Oximetry 12/28/16 12/28/16 12/28/16 07:10 07:20 07:30 Temperature Pulse Rate 85 79 79 Respiratory 12 12 12 Rate Blood Pressure 159/90 159/90 142/82 O2 Sat by Pulse 100 100 100 Oximetry 12/28/16 12/28/16 12/28/16 07:40 07:50 08:00 Temperature 97.5 F L Pulse Rate 77 103 H 95 H Respiratory 12 14 14 Rate Blood Pressure 159/90 159/90 170/94 O2 Sat by Pulse 100 100 100 Oximetry 12/28/16 12/28/16 12/28/16 08:10 08:20 08:30 Temperature Pulse Rate 84 83 81 Respiratory 12 12 12 Rate Blood Pressure 170/94 170/94 161/91 O2 Sat by Pulse 100 100 100 Oximetry 12/28/16 12/28/16 12/28/16 08:40 08:50 08:51 Temperature Pulse Rate 79 96 H 88 Respiratory 12 13 Rate Blood Pressure 170/94 156/86 156/86 O2 Sat by Pulse 100 100 100 Oximetry 12/28/16 12/28/16 12/28/16 09:00 09:10 09:20 Temperature Pulse Rate 96 H 91 H 82 Respiratory 11 L 12 12 Rate Blood Pressure 168/98 168/98 168/98 O2 Sat by Pulse 100 100 100 Oximetry 12/28/16 12/28/16 12/28/16 09:30 09:40 09:50 Temperature Pulse Rate 101 H 108 H 92 H Respiratory 14 14 12 Rate Blood Pressure 170/92 170/92 167/91 O2 Sat by Pulse 100 100 Oximetry 12/28/16 12/28/16 12/28/16 10:00 10:10 10:20 Temperature Pulse Rate 97 H 87 93 H Respiratory 12 12 13 Rate Blood Pressure 153/85 153/85 153/85 O2 Sat by Pulse 100 100 100 Oximetry 12/28/16 12/28/16 12/28/16 10:30 10:40 10:50 Temperature Pulse Rate 83 79 80 Respiratory 12 12 12 Rate Blood Pressure 172/95 172/95 172/95 O2 Sat by Pulse 100 100 100 Oximetry 12/28/16 12/28/16 12/28/16 11:00 11:10 11:20 Temperature Pulse Rate 94 H 80 82 Respiratory 11 L 12 12 Rate Blood Pressure 167/93 167/93 167/93 O2 Sat by Pulse 100 100 100 Oximetry 12/28/16 12/28/16 12/28/16 11:30 11:40 11:50 Temperature Pulse Rate 85 79 83 Respiratory 12 12 12 Rate Blood Pressure 171/87 171/87 171/87 O2 Sat by Pulse 100 100 100 Oximetry 12/28/16 12/28/16 12/28/16 12:00 12:10 12:14 Temperature 97.6 F Pulse Rate 79 79 78 Respiratory 15 12 Rate Blood Pressure 165/85 165/85 165/85 O2 Sat by Pulse 100 100 100 Oximetry 12/28/16 12:20 Temperature Pulse Rate 77 Respiratory 12 Rate Blood Pressure 165/85 O2 Sat by Pulse 100 Oximetry Constitutional: appears uncomfortable, other (appears older than stated age) Eyes: non-icteric, injected ENT: other (orally intubated and sedated on vent, no family at bedside) Neck: supple Ascultation: Bilateral: diminished breath sounds Percussion: Bilateral: not dull Cardiovascular: regular rate and rhythm Gastrointestinal: normoactive bowel sounds, soft, non-tender Extremities: no cyanosis, no edema CBC and BMP: 12/28/16 06:28 12/28/16 06:28 ABG, PT/INR, D-dimer: ABG ABG pH 7.389 pH Units (7.350-7.450) 12/28/16 06:00 ABG pCO2 37.1 mm Hg 12/28/16 06:00 ABG pO2 133.5 mm Hg (80.0-90.0) H 12/28/16 06:00 ABG O2 Saturation 98.6 % (95.0-99.0) 12/28/16 06:00 Abnormal lab findings: Abnormal Labs 12/26/16 12/26/16 12/27/16 23:14 Unknown 02:11 WBC RBC Hgb Hct MCV MCHC ABG pH 7.475 H ABG pO2 228.4 H ABG HCO3 28.9 H ABG O2 Saturation 99.4 H ABG Base Excess 4.9 H ABG Hemoglobin 8.4 L Potassium Chloride Carbon Dioxide BUN Creatinine Glucose POC Glucose 389 H Hemoglobin A1c 8.7 H Calcium 12/27/16 12/27/16 12/27/16 02:18 03:38 04:17 WBC RBC Hgb Hct MCV MCHC ABG pH ABG pO2 ABG HCO3 ABG O2 Saturation ABG Base Excess ABG Hemoglobin Potassium 2.5 L* 2.8 L* Chloride Carbon Dioxide BUN 25 H 25 H Creatinine 1.9 H 1.9 H Glucose 203 H 185 H POC Glucose 226 H Hemoglobin A1c Calcium 8.3 L 8.3 L 12/27/16 12/27/16 12/27/16 04:39 06:06 06:15 WBC RBC Hgb Hct MCV MCHC ABG pH ABG pO2 ABG HCO3 ABG O2 Saturation ABG Base Excess ABG Hemoglobin Potassium 2.7 L* Chloride Carbon Dioxide BUN 25 H Creatinine 1.8 H Glucose 168 H POC Glucose 180 H 200 H Hemoglobin A1c Calcium 8.3 L 12/27/16 12/27/16 12/27/16 06:40 08:13 10:29 WBC RBC Hgb Hct MCV MCHC ABG pH ABG pO2 ABG HCO3 ABG O2 Saturation ABG Base Excess ABG Hemoglobin Potassium Chloride Carbon Dioxide BUN Creatinine Glucose POC Glucose 182 H 135 H 207 H Hemoglobin A1c Calcium 12/27/16 12/27/16 12/27/16 11:52 14:37 16:33 WBC RBC Hgb Hct MCV MCHC ABG pH ABG pO2 ABG HCO3 ABG O2 Saturation ABG Base Excess ABG Hemoglobin Potassium Chloride Carbon Dioxide BUN Creatinine Glucose POC Glucose 191 H 241 H 226 H Hemoglobin A1c Calcium 12/27/16 12/27/16 12/27/16 18:14 18:26 20:05 WBC RBC Hgb Hct MCV MCHC ABG pH ABG pO2 ABG HCO3 ABG O2 Saturation ABG Base Excess ABG Hemoglobin Potassium 3.4 L D Chloride Carbon Dioxide BUN 20 H Creatinine 1.7 H Glucose 201 H POC Glucose 233 H 220 H Hemoglobin A1c Calcium 7.9 L 12/27/16 12/27/16 12/27/16 22:03 22:18 22:45 WBC RBC Hgb Hct MCV MCHC ABG pH ABG pO2 ABG HCO3 ABG O2 Saturation ABG Base Excess ABG Hemoglobin Potassium 3.0 L Chloride Carbon Dioxide BUN 20 H Creatinine 1.7 H Glucose 198 H POC Glucose 217 H 222 H Hemoglobin A1c Calcium 7.8 L 12/27/16 12/28/16 12/28/16 23:56 02:00 03:54 WBC RBC Hgb Hct MCV MCHC ABG pH ABG pO2 ABG HCO3 ABG O2 Saturation ABG Base Excess ABG Hemoglobin Potassium Chloride Carbon Dioxide BUN Creatinine Glucose POC Glucose 153 H 209 H 232 H Hemoglobin A1c Calcium 12/28/16 12/28/16 12/28/16 05:04 06:00 06:28 WBC 11.5 H RBC 2.79 L Hgb 7.7 L Hct 21.8 L D MCV 78 L MCHC 35 H ABG pH ABG pO2 133.5 H ABG HCO3 ABG O2 Saturation ABG Base Excess -2.7 L ABG Hemoglobin 8.4 L Potassium Chloride Carbon Dioxide BUN Creatinine Glucose POC Glucose 252 H Hemoglobin A1c Calcium 12/28/16 12/28/16 12/28/16 06:28 08:07 10:02 WBC RBC Hgb Hct MCV MCHC ABG pH ABG pO2 ABG HCO3 ABG O2 Saturation ABG Base Excess ABG Hemoglobin Potassium 3.5 L Chloride 107.9 H Carbon Dioxide 21 L BUN 18 H Creatinine 1.5 H Glucose 224 H POC Glucose 245 H 264 H Hemoglobin A1c Calcium 7.8 L
[2016-12-28] MEDS: APRESOLINE IV PRN (14:20)
[2016-12-28] MEDS: HCTZ PO SCH (14:21)
[2016-12-28] MEDS: fentaNYL DRIP Premix 2,000 MCG/100 ML BAG IV SCH (17:31)
[2016-12-28] MEDS ORDERED: SUBLIMAZE IV ONE (18:00)
[2016-12-29] MEDS: NOVOLOG SUB-Q SCH ×5 (00:20→23:51)
[2016-12-29] MEDS: DIPRIVAN 10 MG/ML 1,000 MG/100 ML BOTTLE IV SCH ×3 (02:05→13:59)
[2016-12-29] MEDS: NACL 0.9% 1000 ML 1,000 ML IV SCH ×3 (04:11→20:53)
[2016-12-29 06:19] LABS: ABG Base Excess -3.8 mmol/L (-2.0-3.0); ABG HCO3 20.6 mmol/L (20.0-26.0); ABG Oxygen Saturation 98.6 % (95.0-99.0); ABG PCO2 35.3 mm Hg; ABG PH 7.384 pH Units (7.350-7.450); ABG PO2 133.5 mm Hg (80.0-90.0)
--- NOTE | 2016-12-29 07:24 | XRay Report ---
AP CHEST: HISTORY: Follow up respiratory failure The endotracheal tube remains in good position. The nasogastric tube has been repositioned and now terminates in the fundus of the stomach. Heart and mediastinal structures remain unremarkable. The lungs are clear. No acute process is noted. IMPRESSION: Unremarkable AP chest.
[2016-12-29] MEDS: APRESOLINE IV PRN ×2 (08:00→15:31)
[2016-12-29] MEDS: fentaNYL DRIP Premix 2,000 MCG/100 ML BAG IV SCH (08:51)
[2016-12-29] MEDS: HCTZ PO SCH (09:28)
[2016-12-29] MEDS: PEPCID IV SCH ×2 (09:28→21:50)
[2016-12-29] MEDS: KEPPRA 500 MG in NACL 0.9% 100 ML IV SCH ×2 (09:30→21:51)
[2016-12-29 09:36] LABS: Hemoglobin 8.1 gm/dl (10.1-14.3); Mean Corpuscular HGB Conc 34 % (30-34); Mean Corpuscular Hemoglobin 27 pg (28-32); Mean Corpuscular Volume 80 fl (79-97); Platelet Count 351 K/mm3 (140-440); Red Blood Count 3.02 M/mm3 (3.65-5.03); Red Cell Distribution Width 15.3 % (13.2-15.2); White Blood Count 11.7 K/mm3 (4.5-11.0)
[2016-12-29 09:51] LABS: Anion Gap 16 mmol/L; BUN/Creatinine Ratio 11; Blood Urea Nitrogen 13 mg/dL (7-17); Calcium 8.1 mg/dL (8.4-10.2); Carbon Dioxide 20 mmol/L (22-30); Chloride 111.9 mmol/L (98-107); Glucose 136 mg/dL (65-100); Potassium 3.2 mmol/L (3.6-5.0); Sodium 145 mmol/L (137-145)
--- NOTE | 2016-12-29 11:09 | XRay Report ---
AP CHEST: HISTORY: PICC placement A left arm PICC has been inserted which terminates in the mid to superior right atrium. The endotracheal tube and nasogastric tube are in good position. Normal heart and mediastinal structures. The lungs are clear. IMPRESSION: The left arm PICC terminates in the right atrium. Otherwise, no change since earlier today at 0220 hrs.
[2016-12-29] MEDS: KCL 20MEQ/100ML 20 MEQ/100 ML BAG IV SCH ×3 (12:08→16:21)
[2016-12-29] MEDS ORDERED: POTASSIUM CHLORIDE FEEDTUBE ONE (13:32)
--- NOTE | 2016-12-29 13:34 | Progress Note ---
Assessment and Plan Assessment and plan: Patient is a 36-year-old woman with a history of insulin-dependent diabetes mellitus, gastroparesis who presented with altered mental status and seizures at home. She was intubated for airway protection. -Acute hypoxic respiratory failure nearing 96 hours: Continue trying to wean ventilator -Status epilepticus: re-ordered IV Keppra, Consult neurology, EEG ordered, await results -Acute encephalopathy due to seizure, treat seizures -Hypokalemia: Replace and recheck magnesium level-->replace and reorder tomorrow -Uncontrolled type 2 diabetes mellitus with honk: critical care is following -Hypokalemai: replace and recheck -DVT prophylaxis: scd hold dvt chemoprophylaxis due to drop in hct -Acute on chronic anemia worsen wtih Drop in hct: recheck cbc Picc line placed today and had to be re-positioned. IF h/h stable tomorrow, start dvt chemophylaxis History Interval history: Patient was seen and examined. Follow-up on current diagnosis/seizures. Patient currently intubated and sedated with [facility] Physical - Physical exam Narrative exam: GEN: Ill-appearing, intubated and sedated HEENT: NCAT, EOMI, PERRL, OP with ET tube in place NECK: supple, no adenopathy, no thyromegaly, no JVD CVS/HEART: Reg tach, NORMAL S1S2, NO JVD, pulses present bilaterally CHEST/LUNGS: CTA B, Symmetrical chest expansion, good air entry bilaterally GI/Abdomen: soft, NTND, good bowel sounds, no guarding or rebound /Bladder: no suprapubic tenderness, no CVA or paraspinal tenderness EXT/Skin: no c/c/e, no obvious rash MSK: Spontaneous movement 4 Neuro: Doesn't follow commands Psych: Sedated - Constitutional Vitals: Temp Pulse Resp BP Pulse Ox 98.5 F 109 H 12 147/72 100 12/29/16 12:00 12/29/16 11:38 12/29/16 09:00 12/29/16 11:38 12/29/16 11:38 Results - Labs CBC & Chem 7: 12/29/16 08:21 12/29/16 09:12 Labs: Laboratory Last Values WBC 11.7 K/mm3 (4.5-11.0) H 12/29/16 08:21 RBC 3.02 M/mm3 (3.65-5.03) L 12/29/16 08:21 Hgb 8.1 gm/dl (10.1-14.3) L 12/29/16 08:21 Hct 24.0 % (30.3-42.9) L 12/29/16 08:21 MCV 80 fl (79-97) 12/29/16 08:21 MCH 27 pg (28-32) L 12/29/16 08:21 MCHC 34 % (30-34) 12/29/16 08:21 RDW 15.3 % (13.2-15.2) H 12/29/16 08:21 Plt Count 351 K/mm3 (140-440) 12/29/16 08:21 Lymph % (Auto) 5.4 % (13.4-35.0) L 12/26/16 18:35 [place] % (Auto) 7.0 % (0.0-7.3) 12/26/16 18:35 Eos % (Auto) 0.1 % (0.0-4.3) 12/26/16 18:35 Baso % (Auto) 0.3 % (0.0-1.8) 12/26/16 18:35 Lymph # 0.7 K/mm3 (1.2-5.4) L 12/26/16 18:35 [place] # 0.9 K/mm3 (0.0-0.8) H 12/26/16 18:35 Eos # 0.0 K/mm3 (0.0-0.4) 12/26/16 18:35 Baso # 0.0 K/mm3 (0.0-0.1) 12/26/16 18:35 Seg Neutrophils % 87.2 % (40.0-70.0) H 12/26/16 18:35 Seg Neutrophils # 11.7 K/mm3 (1.8-7.7) H 12/26/16 18:35 ABG pH 7.384 pH Units (7.350-7.450) 12/29/16 Unknown ABG pCO2 35.3 mm Hg 12/29/16 Unknown ABG pO2 133.5 mm Hg (80.0-90.0) H 12/29/16 Unknown ABG HCO3 20.6 mmol/L (20.0-26.0) 12/29/16 Unknown ABG O2 Saturation 98.6 % (95.0-99.0) 12/29/16 Unknown ABG O2 Content 16.7 (0.0-44) 12/29/16 Unknown ABG Base Excess -3.8 mmol/L (-2.0-3.0) L 12/29/16 Unknown ABG Hemoglobin 12.2 gm/dl (12.0-16.0) 12/29/16 Unknown ABG Carboxyhemoglobin 1.9 % (0.0-5.0) 12/29/16 Unknown ABG Methemoglobin 0.3 % (0.0-1.5) 12/29/16 Unknown VBG pH 7.467 (7.320-7.420) H 12/26/16 18:35 Oxyhemoglobin 96.4 % (95.0-99.0) 12/29/16 Unknown FiO2 30 % 12/29/16 Unknown Sodium 145 mmol/L (137-145) 12/29/16 09:12 Potassium 3.2 mmol/L (3.6-5.0) L 12/29/16 09:12 Chloride 111.9 mmol/L (98-107) H 12/29/16 09:12 Carbon Dioxide 20 mmol/L (22-30) L 12/29/16 09:12 Anion Gap 16 mmol/L 12/29/16 09:12 BUN 13 mg/dL (7-17) 12/29/16 09:12 Creatinine 1.2 mg/dL (0.7-1.2) 12/29/16 09:12 Estimated GFR > 60 ml/min 12/29/16 09:12 BUN/Creatinine Ratio 11 % 12/29/16 09:12 Glucose 136 mg/dL (65-100) H 12/29/16 09:12 POC Glucose 167 (70-105) H 12/29/16 11:25 Hemoglobin A1c 8.7 % (4-6) H 12/26/16 Unknown Lactic Acid 6.20 mmol/L (0.7-2.0) H* 12/26/16 18:58 Calcium 8.1 mg/dL (8.4-10.2) L 12/29/16 09:12 Phosphorus 3.30 mg/dL (2.5-4.5) 12/26/16 18:35 Magnesium 1.80 mg/dL (1.7-2.3) 12/29/16 09:12 Total Bilirubin 0.60 mg/dL (0.1-1.2) 12/26/16 18:35 AST 16 units/L (5-40) 12/26/16 18:35 ALT 10 units/L (7-56) 12/26/16 18:35 Alkaline Phosphatase 82 units/L (35-129) 12/26/16 18:35 Total Protein 5.8 g/dL (6.3-8.2) L 12/26/16 18:35 Albumin 2.8 g/dL (3.9-5) L 12/26/16 18:35 Albumin/Globulin Ratio 0.9 % 12/26/16 18:35 Triglycerides 177 mg/dL (2-149) H 12/29/16 09:12 HCG, Quant < 2 mIU/mL (0-4) 12/26/16 18:35 Urine Color Yellow (Yellow) 12/26/16 18:37 Urine Turbidity Clear (Clear) 12/26/16 18:37 Urine pH 6.0 (5.0-7.0) 12/26/16 18:37 Ur Specific [place] 1.023 (1.003-1.030) 12/26/16 18:37 Urine Protein >500 mg/dL (Negative) 12/26/16 18:37 Urine Glucose (UA) >=500 mg/dL (Negative) 12/26/16 18:37 Urine Ketones Neg mg/dL (Negative) 12/26/16 18:37 Urine Blood Mod (Negative) 12/26/16 18:37 Urine Nitrite Neg (Negative) 12/26/16 18:37 Urine Bilirubin Neg (Negative) 12/26/16 18:37 Urine Urobilinogen < 2.0 mg/dL (<2.0) 12/26/16 18:37 Ur Leukocyte Esterase Neg (Negative) 12/26/16 18:37 Urine WBC (Auto) 2.0 /HPF (0.0-6.0) 12/26/16 18:37 Urine RBC (Auto) 1.0 /HPF (0.0-6.0) 12/26/16 18:37 U Epithel Cells (Auto) < 1.0 /HPF (0-13.0) 12/26/16 18:37 Urine HCG, Qual Negative (Negative) 12/26/16 18:37 Salicylates < 0.3 mg/dL (2.8-20.0) L 12/26/16 18:35 Urine Opiates Screen Presumptive negative 12/26/16 18:37 Urine Methadone Screen Presumptive negative 12/26/16 18:37 Acetaminophen < 15.0 ug/mL (10.0-30.0) 12/26/16 18:35 Ur Barbiturates Screen Presumptive negative 12/26/16 18:37 Ur Phencyclidine Scrn Presumptive negative 12/26/16 18:37 Ur Amphetamines Screen Presumptive negative 12/26/16 18:37 U Benzodiazepines Scrn Presumptive negative 12/26/16 18:37 Urine Cocaine Screen Presumptive negative 12/26/16 18:37 U Marijuana (THC) Screen Presumptive negative 12/26/16 18:37 Drugs of Abuse Note Disclamer 12/26/16 18:37
--- NOTE | 2016-12-29 14:20 | Progress Note ---
Assessment and Plan 36 y/o female with acute respiratory failure and seizure with encephalopathy 1. Follow up neurology recs and EEG read 2. Discontinue sedation. 3. Attempt extubation today. 4. BP control CCt 31 minutes Subjective Date of service: 12/29/16 Interval history: Mother at bedside. Patient had to have second agent added yesterday for sedation. Wakes up on both and follows simple commands. Objective Vital Signs - 12hr 12/29/16 12/29/16 12/29/16 02:21 02:31 02:41 Temperature Pulse Rate 102 H 89 84 Respiratory 12 12 12 Rate Blood Pressure 141/85 167/94 167/94 O2 Sat by Pulse 100 100 100 Oximetry 12/29/16 12/29/16 12/29/16 02:51 03:00 03:05 Temperature 97.8 F Pulse Rate 79 77 Respiratory 12 12 Rate Blood Pressure 141/85 153/83 O2 Sat by Pulse 100 100 Oximetry 12/29/16 12/29/16 12/29/16 03:11 03:21 03:30 Temperature Pulse Rate 73 73 76 Respiratory 12 12 12 Rate Blood Pressure 153/83 167/94 142/83 O2 Sat by Pulse 100 100 100 Oximetry 12/29/16 12/29/16 12/29/16 03:41 03:51 04:00 Temperature Pulse Rate 80 102 H 87 Respiratory 12 13 12 Rate Blood Pressure 142/83 153/83 154/84 O2 Sat by Pulse 100 100 100 Oximetry 12/29/16 12/29/16 12/29/16 04:08 04:09 04:11 Temperature Pulse Rate 85 82 Respiratory 18 12 Rate Blood Pressure 154/84 154/84 O2 Sat by Pulse 100 100 100 Oximetry 12/29/16 12/29/16 12/29/16 04:21 04:30 04:41 Temperature Pulse Rate 79 79 77 Respiratory 12 12 12 Rate Blood Pressure 154/84 133/79 133/79 O2 Sat by Pulse 100 100 100 Oximetry 12/29/16 12/29/16 12/29/16 04:51 05:00 05:11 Temperature Pulse Rate 75 78 75 Respiratory 12 12 12 Rate Blood Pressure 133/79 131/78 131/78 O2 Sat by Pulse 100 100 100 Oximetry 12/29/16 12/29/16 12/29/16 05:21 05:30 05:41 Temperature Pulse Rate 76 83 85 Respiratory 12 12 12 Rate Blood Pressure 131/78 154/85 154/85 O2 Sat by Pulse 100 100 100 Oximetry 12/29/16 12/29/16 12/29/16 05:51 06:00 06:11 Temperature Pulse Rate 84 93 H 89 Respiratory 12 12 12 Rate Blood Pressure 154/85 157/80 157/80 O2 Sat by Pulse 100 100 100 Oximetry 12/29/16 12/29/16 12/29/16 06:21 06:31 06:41 Temperature Pulse Rate 96 H 103 H Respiratory 14 12 Rate Blood Pressure 157/80 157/80 157/80 O2 Sat by Pulse 100 100 100 Oximetry 12/29/16 12/29/16 12/29/16 06:51 07:00 07:11 Temperature Pulse Rate 94 H 92 H 86 Respiratory 12 13 12 Rate Blood Pressure 157/80 151/83 151/83 O2 Sat by Pulse 100 100 100 Oximetry 12/29/16 12/29/16 12/29/16 07:21 07:30 07:41 Temperature Pulse Rate 84 82 Respiratory 12 12 Rate Blood Pressure 151/83 140/82 140/82 O2 Sat by Pulse 100 100 100 Oximetry 12/29/16 12/29/16 12/29/16 07:50 07:51 08:00 Temperature 98.4 F Pulse Rate 91 H 92 H 104 H Respiratory 12 12 Rate Blood Pressure 140/82 140/82 169/101 O2 Sat by Pulse 100 100 100 Oximetry 12/29/16 12/29/16 12/29/16 08:11 08:21 08:30 Temperature Pulse Rate 113 H 93 H 95 H Respiratory 18 12 12 Rate Blood Pressure 169/101 169/101 137/73 O2 Sat by Pulse 100 100 100 Oximetry 12/29/16 12/29/16 12/29/16 08:41 08:51 09:00 Temperature Pulse Rate 96 H 102 H 103 H Respiratory 12 12 12 Rate Blood Pressure 137/73 137/73 157/84 O2 Sat by Pulse 100 100 Oximetry 12/29/16 12/29/16 11:38 12:00 Temperature 98.5 F Pulse Rate 109 H Respiratory Rate Blood Pressure 147/72 O2 Sat by Pulse 100 Oximetry Constitutional: appears uncomfortable, other (appears older than stated age) Eyes: non-icteric, injected ENT: other (orally intubated and sedated on vent, no family at bedside) Neck: supple Ascultation: Bilateral: diminished breath sounds Percussion: Bilateral: not dull Cardiovascular: regular rate and rhythm Gastrointestinal: normoactive bowel sounds, soft, non-tender Extremities: no cyanosis, no edema CBC and BMP: 12/29/16 08:21 12/29/16 09:12 ABG, PT/INR, D-dimer: ABG ABG pH 7.384 pH Units (7.350-7.450) 12/29/16 Unknown ABG pCO2 35.3 mm Hg 12/29/16 Unknown ABG pO2 133.5 mm Hg (80.0-90.0) H 12/29/16 Unknown ABG O2 Saturation 98.6 % (95.0-99.0) 12/29/16 Unknown Abnormal lab findings: Abnormal Labs 12/26/16 12/26/16 12/27/16 23:14 Unknown 02:11 WBC RBC Hgb Hct MCV MCH MCHC RDW ABG pH 7.475 H ABG pO2 228.4 H ABG HCO3 28.9 H ABG O2 Saturation 99.4 H ABG Base Excess 4.9 H ABG Hemoglobin 8.4 L Potassium Chloride Carbon Dioxide BUN Creatinine Glucose POC Glucose 389 H Hemoglobin A1c 8.7 H Calcium Triglycerides 12/27/16 12/27/16 12/27/16 02:18 03:38 04:17 WBC RBC Hgb Hct MCV MCH MCHC RDW ABG pH ABG pO2 ABG HCO3 ABG O2 Saturation ABG Base Excess ABG Hemoglobin Potassium 2.5 L* 2.8 L* Chloride Carbon Dioxide BUN 25 H 25 H Creatinine 1.9 H 1.9 H Glucose 203 H 185 H POC Glucose 226 H Hemoglobin A1c Calcium 8.3 L 8.3 L Triglycerides 12/27/16 12/27/16 12/27/16 04:39 06:06 06:15 WBC RBC Hgb Hct MCV MCH MCHC RDW ABG pH ABG pO2 ABG HCO3 ABG O2 Saturation ABG Base Excess ABG Hemoglobin Potassium 2.7 L* Chloride Carbon Dioxide BUN 25 H Creatinine 1.8 H Glucose 168 H POC Glucose 180 H 200 H Hemoglobin A1c Calcium 8.3 L Triglycerides 12/27/16 12/27/16 12/27/16 06:40 08:13 10:29 WBC RBC Hgb Hct MCV MCH MCHC RDW ABG pH ABG pO2 ABG HCO3 ABG O2 Saturation ABG Base Excess ABG Hemoglobin Potassium Chloride Carbon Dioxide BUN Creatinine Glucose POC Glucose 182 H 135 H 207 H Hemoglobin A1c Calcium Triglycerides 12/27/16 12/27/16 12/27/16 11:52 14:37 16:33 WBC RBC Hgb Hct MCV MCH MCHC RDW ABG pH ABG pO2 ABG HCO3 ABG O2 Saturation ABG Base Excess ABG Hemoglobin Potassium Chloride Carbon Dioxide BUN Creatinine Glucose POC Glucose 191 H 241 H 226 H Hemoglobin A1c Calcium Triglycerides 12/27/16 12/27/16 12/27/16 18:14 18:26 20:05 WBC RBC Hgb Hct MCV MCH MCHC RDW ABG pH ABG pO2 ABG HCO3 ABG O2 Saturation ABG Base Excess ABG Hemoglobin Potassium 3.4 L D Chloride Carbon Dioxide BUN 20 H Creatinine 1.7 H Glucose 201 H POC Glucose 233 H 220 H Hemoglobin A1c Calcium 7.9 L Triglycerides 12/27/16 12/27/16 12/27/16 22:03 22:18 22:45 WBC RBC Hgb Hct MCV MCH MCHC RDW ABG pH ABG pO2 ABG HCO3 ABG O2 Saturation ABG Base Excess ABG Hemoglobin Potassium 3.0 L Chloride Carbon Dioxide BUN 20 H Creatinine 1.7 H Glucose 198 H POC Glucose 217 H 222 H Hemoglobin A1c Calcium 7.8 L Triglycerides 12/27/16 12/28/16 12/28/16 23:56 02:00 03:54 WBC RBC Hgb Hct MCV MCH MCHC RDW ABG pH ABG pO2 ABG HCO3 ABG O2 Saturation ABG Base Excess ABG Hemoglobin Potassium Chloride Carbon Dioxide BUN Creatinine Glucose POC Glucose 153 H 209 H 232 H Hemoglobin A1c Calcium Triglycerides 12/28/16 12/28/16 12/28/16 05:04 06:00 06:28 WBC 11.5 H RBC 2.79 L Hgb 7.7 L Hct 21.8 L D MCV 78 L MCH MCHC 35 H RDW ABG pH ABG pO2 133.5 H ABG HCO3 ABG O2 Saturation ABG Base Excess -2.7 L ABG Hemoglobin 8.4 L Potassium Chloride Carbon Dioxide BUN Creatinine Glucose POC Glucose 252 H Hemoglobin A1c Calcium Triglycerides 12/28/16 12/28/16 12/28/16 06:28 08:07 10:02 WBC RBC Hgb Hct MCV MCH MCHC RDW ABG pH ABG pO2 ABG HCO3 ABG O2 Saturation ABG Base Excess ABG Hemoglobin Potassium 3.5 L Chloride 107.9 H Carbon Dioxide 21 L BUN 18 H Creatinine 1.5 H Glucose 224 H POC Glucose 245 H 264 H Hemoglobin A1c Calcium 7.8 L Triglycerides 12/28/16 12/28/16 12/28/16 11:46 17:42 22:21 WBC RBC Hgb Hct MCV MCH MCHC RDW ABG pH ABG pO2 ABG HCO3 ABG O2 Saturation ABG Base Excess ABG Hemoglobin Potassium Chloride Carbon Dioxide BUN Creatinine Glucose POC Glucose 245 H 135 H 186 H Hemoglobin A1c Calcium Triglycerides 12/29/16 12/29/16 12/29/16 00:26 05:32 08:21 WBC 11.7 H RBC 3.02 L Hgb 8.1 L Hct 24.0 L MCV MCH 27 L MCHC RDW 15.3 H ABG pH ABG pO2 ABG HCO3 ABG O2 Saturation ABG Base Excess ABG Hemoglobin Potassium Chloride Carbon Dioxide BUN Creatinine Glucose POC Glucose 189 H 144 H Hemoglobin A1c Calcium Triglycerides 12/29/16 12/29/16 12/29/16 09:12 09:12 11:25 WBC RBC Hgb Hct MCV MCH MCHC RDW ABG pH ABG pO2 ABG HCO3 ABG O2 Saturation ABG Base Excess ABG Hemoglobin Potassium 3.2 L Chloride 111.9 H Carbon Dioxide 20 L BUN Creatinine Glucose 136 H POC Glucose 167 H Hemoglobin A1c Calcium 8.1 L Triglycerides 177 H 12/29/16 Unknown WBC RBC Hgb Hct MCV MCH MCHC RDW ABG pH ABG pO2 133.5 H ABG HCO3 ABG O2 Saturation ABG Base Excess -3.8 L ABG Hemoglobin Potassium Chloride Carbon Dioxide BUN Creatinine Glucose POC Glucose Hemoglobin A1c Calcium Triglycerides
[2016-12-30] MEDS: LOVENOX SUB-Q SCH ×2 (00:02→22:32)
[2016-12-30] MEDS: APRESOLINE IV PRN ×2 (04:42→12:06)
[2016-12-30] MEDS: NACL 0.9% 1000 ML 1,000 ML IV SCH (04:44)
[2016-12-30] MEDS ORDERED: LOPRESSOR IV ONE ×3 (05:31→13:00)
[2016-12-30 06:08] LABS: Hematocrit 26.3 % (30.3-42.9); Hemoglobin 8.8 gm/dl (10.1-14.3); Mean Corpuscular HGB Conc 33 % (30-34); Mean Corpuscular Hemoglobin 27 pg (28-32); Mean Corpuscular Volume 82 fl (79-97); Platelet Count 421 K/mm3 (140-440); Red Blood Count 3.21 M/mm3 (3.65-5.03); Red Cell Distribution Width 15.5 % (13.2-15.2); White Blood Count 13.2 K/mm3 (4.5-11.0)
[2016-12-30 07:19] LABS: Calcium 8.7 mg/dL (8.4-10.2); Chloride 115.4 mmol/L (98-107); Magnesium 1.8 mg/dL (1.7-2.3)
--- NOTE | 2016-12-30 07:32 | XRay Report ---
AP CHEST: HISTORY: Followup respiratory failure The patient has been extubated. The nasogastric tube has been removed. The left arm PICC is still present and has been retracted to the cavoatrial junction. Heart size and pulmonary vascularity are at the upper limits of normal. The lungs are clear. Trace right pleural effusion is suspected. The bony structures are intact. IMPRESSION: Trace right pleural effusion.
--- NOTE | 2016-12-30 09:54 | Progress Note ---
Assessment and Plan 36 y/o female with acute respiratory failure and seizure with encephalopathy 1. Successful extubation. Wean FiO2 as no evidence of underlying lung disease. 2. Still no note from neurology and no EEG reading, if done at all. 3. Will increase BP med. May need to consider low dose BB 4. Transfer out of ICU Subjective Date of service: 12/30/16 Interval history: No acute events. Successful extubation on yesterday. Objective Vital Signs - 12hr 12/29/16 12/29/16 12/29/16 21:50 21:55 22:00 Temperature Pulse Rate 143 H 143 H 135 H Respiratory 16 21 18 Rate Blood Pressure 132/77 120/72 O2 Sat by Pulse 100 100 100 Oximetry 12/29/16 12/29/16 12/29/16 22:10 22:20 22:30 Temperature Pulse Rate 140 H 141 H 142 H Respiratory 22 21 19 Rate Blood Pressure 120/72 120/72 118/71 O2 Sat by Pulse 100 100 100 Oximetry 12/29/16 12/29/16 12/29/16 22:40 22:50 23:00 Temperature Pulse Rate 145 H 142 H 143 H Respiratory 20 19 25 H Rate Blood Pressure 118/71 120/72 131/68 O2 Sat by Pulse 100 100 99 Oximetry 12/29/16 12/29/16 12/29/16 23:06 23:10 23:20 Temperature 102.4 F H Pulse Rate 138 H 142 H Respiratory 21 19 Rate Blood Pressure 131/68 131/68 O2 Sat by Pulse 100 100 Oximetry 12/29/16 12/29/16 12/29/16 23:30 23:40 23:48 Temperature 102.1 F H Pulse Rate 135 H 139 H 135 H Respiratory 20 14 19 Rate Blood Pressure 125/62 125/62 125/62 O2 Sat by Pulse 100 100 100 Oximetry 12/29/16 12/30/16 12/30/16 23:50 00:00 00:10 Temperature Pulse Rate 139 H 135 H 136 H Respiratory 17 17 20 Rate Blood Pressure 125/62 130/76 130/76 O2 Sat by Pulse 100 100 98 Oximetry 12/30/16 12/30/16 12/30/16 00:20 00:30 00:40 Temperature Pulse Rate 138 H 139 H 136 H Respiratory 15 20 18 Rate Blood Pressure 125/62 151/85 151/85 O2 Sat by Pulse 100 100 Oximetry 12/30/16 12/30/16 12/30/16 00:50 01:00 01:10 Temperature Pulse Rate 136 H 134 H 136 H Respiratory 16 16 17 Rate Blood Pressure 151/85 125/77 125/77 O2 Sat by Pulse 100 100 100 Oximetry 12/30/16 12/30/16 12/30/16 01:20 01:28 01:30 Temperature Pulse Rate 138 H 133 H Respiratory 22 14 16 Rate Blood Pressure 125/77 162/89 O2 Sat by Pulse 100 100 100 Oximetry 12/30/16 12/30/16 12/30/16 01:40 01:50 02:00 Temperature Pulse Rate 134 H 132 H 133 H Respiratory 16 17 14 Rate Blood Pressure 162/89 162/89 165/95 O2 Sat by Pulse 100 100 Oximetry 12/30/16 12/30/16 12/30/16 02:10 02:20 02:30 Temperature Pulse Rate 133 H 134 H 136 H Respiratory 18 17 13 Rate Blood Pressure 165/95 165/95 164/84 O2 Sat by Pulse 99 100 100 Oximetry 12/30/16 12/30/16 12/30/16 02:40 02:50 03:00 Temperature Pulse Rate 128 H 126 H 133 H Respiratory 10 L 17 13 Rate Blood Pressure 164/84 164/84 148/88 O2 Sat by Pulse 100 100 100 Oximetry 12/30/16 12/30/16 12/30/16 03:10 03:15 03:20 Temperature Pulse Rate 128 H 126 H 128 H Respiratory 16 13 Rate Blood Pressure 148/88 148/88 O2 Sat by Pulse 100 100 100 Oximetry 12/30/16 12/30/16 12/30/16 03:30 03:40 03:50 Temperature Pulse Rate 127 H 127 H 126 H Respiratory 16 17 15 Rate Blood Pressure 175/92 175/92 175/92 O2 Sat by Pulse 100 100 100 Oximetry 12/30/16 12/30/16 12/30/16 03:56 04:00 04:10 Temperature 99.9 F H Pulse Rate 126 H 126 H Respiratory 17 16 Rate Blood Pressure 172/94 172/94 O2 Sat by Pulse 100 100 Oximetry 12/30/16 12/30/16 12/30/16 04:20 04:30 04:40 Temperature Pulse Rate 127 H 126 H 131 H Respiratory 16 16 12 Rate Blood Pressure 172/94 187/104 174/89 O2 Sat by Pulse 100 100 100 Oximetry 12/30/16 12/30/16 12/30/16 04:42 04:50 05:00 Temperature Pulse Rate 128 H 173 H 178 H Respiratory 13 15 Rate Blood Pressure 174/89 174/89 174/89 O2 Sat by Pulse 100 100 Oximetry 12/30/16 12/30/16 12/30/16 05:10 05:20 05:30 Temperature Pulse Rate 181 H 183 H 179 H Respiratory 17 17 17 Rate Blood Pressure 134/77 134/77 135/69 O2 Sat by Pulse 100 100 100 Oximetry 12/30/16 12/30/16 12/30/16 05:40 05:50 05:54 Temperature Pulse Rate 158 H 144 H 149 H Respiratory 17 9 L Rate Blood Pressure 135/69 135/69 135/69 O2 Sat by Pulse 100 100 Oximetry 12/30/16 12/30/16 12/30/16 06:00 06:10 06:20 Temperature Pulse Rate 123 H 124 H 125 H Respiratory 18 24 25 H Rate Blood Pressure 137/74 137/74 137/74 O2 Sat by Pulse 100 100 100 Oximetry 12/30/16 12/30/16 12/30/16 06:30 06:40 06:50 Temperature Pulse Rate 126 H 125 H 126 H Respiratory 25 H 17 17 Rate Blood Pressure 137/81 137/81 137/81 O2 Sat by Pulse 100 100 100 Oximetry 12/30/16 12/30/16 12/30/16 07:00 07:10 07:20 Temperature Pulse Rate 127 H 129 H 127 H Respiratory 18 15 17 Rate Blood Pressure 145/78 145/78 145/78 O2 Sat by Pulse 100 100 100 Oximetry 12/30/16 12/30/16 12/30/16 07:30 07:40 07:50 Temperature Pulse Rate 129 H 128 H 133 H Respiratory 16 18 15 Rate Blood Pressure 156/94 156/94 156/94 O2 Sat by Pulse 100 100 99 Oximetry 12/30/16 12/30/16 12/30/16 08:00 08:10 08:12 Temperature 99.6 F Pulse Rate 133 H 131 H Respiratory 17 19 Rate Blood Pressure 166/96 166/96 O2 Sat by Pulse 100 100 100 Oximetry 12/30/16 12/30/16 12/30/16 08:20 08:30 08:40 Temperature Pulse Rate 137 H 131 H 134 H Respiratory 19 19 16 Rate Blood Pressure 166/96 150/72 150/72 O2 Sat by Pulse 100 100 100 Oximetry 12/30/16 12/30/16 12/30/16 08:50 09:00 09:10 Temperature Pulse Rate 134 H 132 H 138 H Respiratory 21 22 20 Rate Blood Pressure 150/72 182/95 182/95 O2 Sat by Pulse 89 99 100 Oximetry 12/30/16 09:20 Temperature Pulse Rate 131 H Respiratory 21 Rate Blood Pressure 182/95 O2 Sat by Pulse 100 Oximetry Constitutional: no acute distress, other (appears older than stated age) Eyes: non-icteric, injected Neck: supple Ascultation: Bilateral: diminished breath sounds Percussion: Bilateral: not dull Cardiovascular: regular rate and rhythm Gastrointestinal: normoactive bowel sounds, soft, non-tender Extremities: no cyanosis, no edema CBC and BMP: 12/30/16 05:00 12/30/16 05:00 ABG, PT/INR, D-dimer: ABG ABG pH 7.384 pH Units (7.350-7.450) 12/29/16 Unknown ABG pCO2 35.3 mm Hg 12/29/16 Unknown ABG pO2 133.5 mm Hg (80.0-90.0) H 12/29/16 Unknown ABG O2 Saturation 98.6 % (95.0-99.0) 12/29/16 Unknown Abnormal lab findings: Abnormal Labs 12/26/16 12/26/16 12/27/16 23:14 Unknown 02:11 WBC RBC Hgb Hct MCV MCH MCHC RDW ABG pH 7.475 H ABG pO2 228.4 H ABG HCO3 28.9 H ABG O2 Saturation 99.4 H ABG Base Excess 4.9 H ABG Hemoglobin 8.4 L Sodium Potassium Chloride Carbon Dioxide BUN Creatinine Glucose POC Glucose 389 H Hemoglobin A1c 8.7 H Calcium Triglycerides 12/27/16 12/27/16 12/27/16 02:18 03:38 04:17 WBC RBC Hgb Hct MCV MCH MCHC RDW ABG pH ABG pO2 ABG HCO3 ABG O2 Saturation ABG Base Excess ABG Hemoglobin Sodium Potassium 2.5 L* 2.8 L* Chloride Carbon Dioxide BUN 25 H 25 H Creatinine 1.9 H 1.9 H Glucose 203 H 185 H POC Glucose 226 H Hemoglobin A1c Calcium 8.3 L 8.3 L Triglycerides 12/27/16 12/27/16 12/27/16 04:39 06:06 06:15 WBC RBC Hgb Hct MCV MCH MCHC RDW ABG pH ABG pO2 ABG HCO3 ABG O2 Saturation ABG Base Excess ABG Hemoglobin Sodium Potassium 2.7 L* Chloride Carbon Dioxide BUN 25 H Creatinine 1.8 H Glucose 168 H POC Glucose 180 H 200 H Hemoglobin A1c Calcium 8.3 L Triglycerides 12/27/16 12/27/16 12/27/16 06:40 08:13 10:29 WBC RBC Hgb Hct MCV MCH MCHC RDW ABG pH ABG pO2 ABG HCO3 ABG O2 Saturation ABG Base Excess ABG Hemoglobin Sodium Potassium Chloride Carbon Dioxide BUN Creatinine Glucose POC Glucose 182 H 135 H 207 H Hemoglobin A1c Calcium Triglycerides 12/27/16 12/27/16 12/27/16 11:52 14:37 16:33 WBC RBC Hgb Hct MCV MCH MCHC RDW ABG pH ABG pO2 ABG HCO3 ABG O2 Saturation ABG Base Excess ABG Hemoglobin Sodium Potassium Chloride Carbon Dioxide BUN Creatinine Glucose POC Glucose 191 H 241 H 226 H Hemoglobin A1c Calcium Triglycerides 12/27/16 12/27/16 12/27/16 18:14 18:26 20:05 WBC RBC Hgb Hct MCV MCH MCHC RDW ABG pH ABG pO2 ABG HCO3 ABG O2 Saturation ABG Base Excess ABG Hemoglobin Sodium Potassium 3.4 L D Chloride Carbon Dioxide BUN 20 H Creatinine 1.7 H Glucose 201 H POC Glucose 233 H 220 H Hemoglobin A1c Calcium 7.9 L Triglycerides 12/27/16 12/27/16 12/27/16 22:03 22:18 22:45 WBC RBC Hgb Hct MCV MCH MCHC RDW ABG pH ABG pO2 ABG HCO3 ABG O2 Saturation ABG Base Excess ABG Hemoglobin Sodium Potassium 3.0 L Chloride Carbon Dioxide BUN 20 H Creatinine 1.7 H Glucose 198 H POC Glucose 217 H 222 H Hemoglobin A1c Calcium 7.8 L Triglycerides 12/27/16 12/28/16 12/28/16 23:56 02:00 03:54 WBC RBC Hgb Hct MCV MCH MCHC RDW ABG pH ABG pO2 ABG HCO3 ABG O2 Saturation ABG Base Excess ABG Hemoglobin Sodium Potassium Chloride Carbon Dioxide BUN Creatinine Glucose POC Glucose 153 H 209 H 232 H Hemoglobin A1c Calcium Triglycerides 12/28/16 12/28/16 12/28/16 05:04 06:00 06:28 WBC 11.5 H RBC 2.79 L Hgb 7.7 L Hct 21.8 L D MCV 78 L MCH MCHC 35 H RDW ABG pH ABG pO2 133.5 H ABG HCO3 ABG O2 Saturation ABG Base Excess -2.7 L ABG Hemoglobin 8.4 L Sodium Potassium Chloride Carbon Dioxide BUN Creatinine Glucose POC Glucose 252 H Hemoglobin A1c Calcium Triglycerides 12/28/16 12/28/16 12/28/16 06:28 08:07 10:02 WBC RBC Hgb Hct MCV MCH MCHC RDW ABG pH ABG pO2 ABG HCO3 ABG O2 Saturation ABG Base Excess ABG Hemoglobin Sodium Potassium 3.5 L Chloride 107.9 H Carbon Dioxide 21 L BUN 18 H Creatinine 1.5 H Glucose 224 H POC Glucose 245 H 264 H Hemoglobin A1c Calcium 7.8 L Triglycerides 12/28/16 12/28/16 12/28/16 11:46 17:42 22:21 WBC RBC Hgb Hct MCV MCH MCHC RDW ABG pH ABG pO2 ABG HCO3 ABG O2 Saturation ABG Base Excess ABG Hemoglobin Sodium Potassium Chloride Carbon Dioxide BUN Creatinine Glucose POC Glucose 245 H 135 H 186 H Hemoglobin A1c Calcium Triglycerides 12/29/16 12/29/16 12/29/16 00:26 05:32 08:21 WBC 11.7 H RBC 3.02 L Hgb 8.1 L Hct 24.0 L MCV MCH 27 L MCHC RDW 15.3 H ABG pH ABG pO2 ABG HCO3 ABG O2 Saturation ABG Base Excess ABG Hemoglobin Sodium Potassium Chloride Carbon Dioxide BUN Creatinine Glucose POC Glucose 189 H 144 H Hemoglobin A1c Calcium Triglycerides 12/29/16 12/29/16 12/29/16 09:12 09:12 11:25 WBC RBC Hgb Hct MCV MCH MCHC RDW ABG pH ABG pO2 ABG HCO3 ABG O2 Saturation ABG Base Excess ABG Hemoglobin Sodium Potassium 3.2 L Chloride 111.9 H Carbon Dioxide 20 L BUN Creatinine Glucose 136 H POC Glucose 167 H Hemoglobin A1c Calcium 8.1 L Triglycerides 177 H 12/29/16 12/29/16 12/29/16 18:09 23:32 Unknown WBC RBC Hgb Hct MCV MCH MCHC RDW ABG pH ABG pO2 133.5 H ABG HCO3 ABG O2 Saturation ABG Base Excess -3.8 L ABG Hemoglobin Sodium Potassium Chloride Carbon Dioxide BUN Creatinine Glucose POC Glucose 198 H 199 H Hemoglobin A1c Calcium Triglycerides 12/30/16 12/30/16 12/30/16 05:00 05:00 05:07 WBC 13.2 H RBC 3.21 L Hgb 8.8 L Hct 26.3 L MCV MCH 27 L MCHC RDW 15.5 H ABG pH ABG pO2 ABG HCO3 ABG O2 Saturation ABG Base Excess ABG Hemoglobin Sodium 147 H Potassium Chloride 115.4 H Carbon Dioxide 16 L BUN Creatinine 1.6 H Glucose 128 H POC Glucose 126 H Hemoglobin A1c Calcium Triglycerides
[2016-12-30] MEDS: PEPCID IV SCH (10:53)
[2016-12-30] MEDS: KEPPRA 500 MG in NACL 0.9% 100 ML IV SCH (10:53)
[2016-12-30] MEDS: HCTZ PO SCH (10:53)
[2016-12-30] MEDS ORDERED: ZESTRIL PO SCH (11:00)
[2016-12-30] MEDS: NOVOLOG SUB-Q SCH ×3 (12:44→17:21)
--- NOTE | 2016-12-30 17:20 | Progress Note ---
Assessment and Plan Assessment and plan: Patient is a 36-year-old woman with a history of insulin-dependent diabetes mellitus, gastroparesis who presented with altered mental status and seizures at home. She was intubated for airway protection. -Acute hypoxic respiratory failure nearing 96 hours: Patient extubated, doing well. -Status epilepticus: re-ordered IV Keppra, Consult neurology, EEG ordered, await results -Acute encephalopathy due to seizure, treat seizures -Sinus Tachycardia. Start on Low dose BB. no evidence of sepsis at this time. Elevated Temp likely reactive. -Lactic acidosis: Will reacheck, likely elevated due to SEIZURE. -HTN: ACEI Discontinued, due to hx of angioedema -Hypokalemia: Replace and recheck magnesium level-->replace and reorder tomorrow -Uncontrolled type 2 diabetes mellitus with honk: critical care is following -Hypokalemai: replace and recheck -Acute on chronic anemia worsen with Drop in hct: recheck cbc -DVT prophylaxis: scd hold dvt chemoprophylaxis due to drop in hct - plan History Interval history: Patient seen and examined, awake alert oriented but diaphoretic. Denies any chest pain at this time. Hospitalist Physical - Constitutional Vitals: Temp Pulse Resp BP Pulse Ox 98.4 F 119 H 16 166/83 100 12/30/16 12:00 12/30/16 12:30 12/30/16 12:30 12/30/16 12:30 12/30/16 12:30 General appearance: Present: no acute distress, well-nourished, other ( Diaphoretic) - EENT Eyes: Present: PERRL, EOM intact ENT: hearing intact, clear oral mucosa - Neck Neck: Present: supple, normal ROM - Respiratory Respiratory effort: normal Respiratory: bilateral: CTA - Cardiovascular Heart Sounds: Present: S1 & S2 - Extremities Extremities: pulses intact, pulses symmetrical (Tacycardia), Full ROM Peripheral Pulses: within normal limits - Abdominal General gastrointestinal: soft, non-tender, non-distended, normal bowel sounds - Integumentary Integumentary: Present: clear, warm, dry - Psychiatric Psychiatric: appropriate mood/affect, intact judgment & insight, cooperative - Neurologic Neurologic: CNII-XII intact, moves all extremities - Allied Health Allied health notes reviewed: nursing Results - Labs CBC & Chem 7: 12/31/16 05:05 12/31/16 05:05 Labs: Laboratory Last Values WBC 13.2 K/mm3 (4.5-11.0) H 12/30/16 05:00 RBC 3.21 M/mm3 (3.65-5.03) L 12/30/16 05:00 Hgb 8.8 gm/dl (10.1-14.3) L 12/30/16 05:00 Hct 26.3 % (30.3-42.9) L 12/30/16 05:00 MCV 82 fl (79-97) 12/30/16 05:00 MCH 27 pg (28-32) L 12/30/16 05:00 MCHC 33 % (30-34) 12/30/16 05:00 RDW 15.5 % (13.2-15.2) H 12/30/16 05:00 Plt Count 421 K/mm3 (140-440) 12/30/16 05:00 Lymph % (Auto) 5.4 % (13.4-35.0) L 12/26/16 18:35 [place] % (Auto) 7.0 % (0.0-7.3) 12/26/16 18:35 Eos % (Auto) 0.1 % (0.0-4.3) 12/26/16 18:35 Baso % (Auto) 0.3 % (0.0-1.8) 12/26/16 18:35 Lymph # 0.7 K/mm3 (1.2-5.4) L 12/26/16 18:35 [place] # 0.9 K/mm3 (0.0-0.8) H 12/26/16 18:35 Eos # 0.0 K/mm3 (0.0-0.4) 12/26/16 18:35 Baso # 0.0 K/mm3 (0.0-0.1) 12/26/16 18:35 Seg Neutrophils % 87.2 % (40.0-70.0) H 12/26/16 18:35 Seg Neutrophils # 11.7 K/mm3 (1.8-7.7) H 12/26/16 18:35 ABG pH 7.384 pH Units (7.350-7.450) 12/29/16 Unknown ABG pCO2 35.3 mm Hg 12/29/16 Unknown ABG pO2 133.5 mm Hg (80.0-90.0) H 12/29/16 Unknown ABG HCO3 20.6 mmol/L (20.0-26.0) 12/29/16 Unknown ABG O2 Saturation 98.6 % (95.0-99.0) 12/29/16 Unknown ABG O2 Content 16.7 (0.0-44) 12/29/16 Unknown ABG Base Excess -3.8 mmol/L (-2.0-3.0) L 12/29/16 Unknown ABG Hemoglobin 12.2 gm/dl (12.0-16.0) 12/29/16 Unknown ABG Carboxyhemoglobin 1.9 % (0.0-5.0) 12/29/16 Unknown ABG Methemoglobin 0.3 % (0.0-1.5) 12/29/16 Unknown VBG pH 7.467 (7.320-7.420) H 12/26/16 18:35 Oxyhemoglobin 96.4 % (95.0-99.0) 12/29/16 Unknown FiO2 30 % 12/29/16 Unknown Sodium 147 mmol/L (137-145) H 12/30/16 05:00 Potassium 4.0 mmol/L (3.6-5.0) D 12/30/16 05:00 Chloride 115.4 mmol/L (98-107) H 12/30/16 05:00 Carbon Dioxide 16 mmol/L (22-30) L 12/30/16 05:00 Anion Gap 20 mmol/L 12/30/16 05:00 BUN 14 mg/dL (7-17) 12/30/16 05:00 Creatinine 1.6 mg/dL (0.7-1.2) H 12/30/16 05:00 Estimated GFR 44 ml/min 12/30/16 05:00 BUN/Creatinine Ratio 9 % 12/30/16 05:00 Glucose 128 mg/dL (65-100) H 12/30/16 05:00 POC Glucose 369 (70-105) H 12/30/16 16:42 Hemoglobin A1c 8.7 % (4-6) H 12/26/16 Unknown Lactic Acid 1.80 mmol/L (0.7-2.0) 12/30/16 14:49 Calcium 8.7 mg/dL (8.4-10.2) 12/30/16 05:00 Phosphorus 3.30 mg/dL (2.5-4.5) 12/26/16 18:35 Magnesium 1.80 mg/dL (1.7-2.3) 12/30/16 05:00 Total Bilirubin 0.60 mg/dL (0.1-1.2) 12/26/16 18:35 AST 16 units/L (5-40) 12/26/16 18:35 ALT 10 units/L (7-56) 12/26/16 18:35 Alkaline Phosphatase 82 units/L (35-129) 12/26/16 18:35 Total Protein 5.8 g/dL (6.3-8.2) L 12/26/16 18:35 Albumin 2.8 g/dL (3.9-5) L 12/26/16 18:35 Albumin/Globulin Ratio 0.9 % 12/26/16 18:35 Triglycerides 177 mg/dL (2-149) H 12/29/16 09:12 HCG, Quant < 2 mIU/mL (0-4) 12/26/16 18:35 Urine Color Yellow (Yellow) 12/26/16 18:37 Urine Turbidity Clear (Clear) 12/26/16 18:37 Urine pH 6.0 (5.0-7.0) 12/26/16 18:37 Ur Specific [place] 1.023 (1.003-1.030) 12/26/16 18:37 Urine Protein >500 mg/dL (Negative) 12/26/16 18:37 Urine Glucose (UA) >=500 mg/dL (Negative) 12/26/16 18:37 Urine Ketones Neg mg/dL (Negative) 12/26/16 18:37 Urine Blood Mod (Negative) 12/26/16 18:37 Urine Nitrite Neg (Negative) 12/26/16 18:37 Urine Bilirubin Neg (Negative) 12/26/16 18:37 Urine Urobilinogen < 2.0 mg/dL (<2.0) 12/26/16 18:37 Ur Leukocyte Esterase Neg (Negative) 12/26/16 18:37 Urine WBC (Auto) 2.0 /HPF (0.0-6.0) 12/26/16 18:37 Urine RBC (Auto) 1.0 /HPF (0.0-6.0) 12/26/16 18:37 U Epithel Cells (Auto) < 1.0 /HPF (0-13.0) 12/26/16 18:37 Urine HCG, Qual Negative (Negative) 12/26/16 18:37 Salicylates < 0.3 mg/dL (2.8-20.0) L 12/26/16 18:35 Urine Opiates Screen Presumptive negative 12/26/16 18:37 Urine Methadone Screen Presumptive negative 12/26/16 18:37 Acetaminophen < 15.0 ug/mL (10.0-30.0) 12/26/16 18:35 Ur Barbiturates Screen Presumptive negative 12/26/16 18:37 Ur Phencyclidine Scrn Presumptive negative 12/26/16 18:37 Ur Amphetamines Screen Presumptive negative 12/26/16 18:37 U Benzodiazepines Scrn Presumptive negative 12/26/16 18:37 Urine Cocaine Screen Presumptive negative 12/26/16 18:37 U Marijuana (THC) Screen Presumptive negative 12/26/16 18:37 Drugs of Abuse Note Disclamer 12/26/16 18:37 - Imaging and Cardiology Chest x-ray: image reviewed (Trace PLEURAL EFFUSION)
[2016-12-30] MEDS: KEPPRA PO SCH (22:33)
[2016-12-30] MEDS: PEPCID PO SCH (22:33)
[2016-12-30] MEDS: COREG PO SCH (22:33)
[2016-12-31] MEDS: NOVOLOG SUB-Q SCH ×4 (00:22→17:05)
[2016-12-31 05:48] LABS: Hematocrit 20.8 % (30.3-42.9); Hemoglobin 7.4 gm/dl (10.1-14.3); Mean Corpuscular HGB Conc 36 % (30-34); Mean Corpuscular Hemoglobin 28 pg (28-32); Mean Corpuscular Volume 79 fl (79-97); Platelet Count 357 K/mm3 (140-440); Red Blood Count 2.63 M/mm3 (3.65-5.03); Red Cell Distribution Width 15.2 % (13.2-15.2); White Blood Count 10.1 K/mm3 (4.5-11.0)
[2016-12-31 06:09] LABS: Calcium 8.6 mg/dL (8.4-10.2); Potassium 3.7 mmol/L (3.6-5.0)
--- NOTE | 2016-12-31 11:28 | Progress Note ---
Assessment and Plan Assessment and plan: Patient is a 36-year-old woman with a history of insulin-dependent diabetes mellitus, gastroparesis who presented with altered mental status and seizures at home. She was intubated for airway protection. -Acute hypoxic respiratory failure nearing 96 hours: Continues to improve post extubation. -Status epilepticus: Will switch ot PO keppra, Consult neurology, EEG ordered, await results -Acute encephalopathy due to seizure, treat seizures -Sinus Tachycardia. Start on Low dose BB. no evidence of sepsis at this time. NO new fever. -Lactic acidosis: Will reacheck, likely elevated due to SEIZURE. Resolved on recheCK -HTN: ACEI Discontinued, due to hx of angioedema -Hypokalemia: Replaced -Uncontrolled type 2 diabetes mellitus with honk: critical care is following -Hypokalemia-corrected -Acute on chronic anemia worsen with Drop in hct: Stable -DVT prophylaxis: scd hold dvt chemoprophylaxis due to drop in hct Anticipate discharge in [place] if remains stable Patient reports hx of tachycardia - Plan discussed with the patient. she is not to drive for 6-9 months untill cleared by Neurology History Interval history: Patient seen and examined, awake alert oriented In good spirits, tolerating diet. Hospitalist Physical - Constitutional Vitals: Temp Pulse Resp BP Pulse Ox 99.3 F 113 H 16 146/93 100 12/31/16 09:12 12/31/16 09:12 12/31/16 09:12 12/31/16 09:12 12/31/16 09:12 General appearance: Present: no acute distress, well-nourished, other ( Diaphoretic) Results - Labs CBC & Chem 7: 12/31/16 05:05 12/31/16 05:05 Labs: Laboratory Last Values WBC 10.1 K/mm3 (4.5-11.0) 12/31/16 05:05 RBC 2.63 M/mm3 (3.65-5.03) L 12/31/16 05:05 Hgb 7.4 gm/dl (10.1-14.3) L 12/31/16 05:05 Hct 20.8 % (30.3-42.9) L 12/31/16 05:05 MCV 79 fl (79-97) 12/31/16 05:05 MCH 28 pg (28-32) 12/31/16 05:05 MCHC 36 % (30-34) H 12/31/16 05:05 RDW 15.2 % (13.2-15.2) 12/31/16 05:05 Plt Count 357 K/mm3 (140-440) 12/31/16 05:05 Lymph % (Auto) 5.4 % (13.4-35.0) L 12/26/16 18:35 [place] % (Auto) 7.0 % (0.0-7.3) 12/26/16 18:35 Eos % (Auto) 0.1 % (0.0-4.3) 12/26/16 18:35 Baso % (Auto) 0.3 % (0.0-1.8) 12/26/16 18:35 Lymph # 0.7 K/mm3 (1.2-5.4) L 12/26/16 18:35 [place] # 0.9 K/mm3 (0.0-0.8) H 12/26/16 18:35 Eos # 0.0 K/mm3 (0.0-0.4) 12/26/16 18:35 Baso # 0.0 K/mm3 (0.0-0.1) 12/26/16 18:35 Seg Neutrophils % 87.2 % (40.0-70.0) H 12/26/16 18:35 Seg Neutrophils # 11.7 K/mm3 (1.8-7.7) H 12/26/16 18:35 ABG pH 7.384 pH Units (7.350-7.450) 12/29/16 Unknown ABG pCO2 35.3 mm Hg 12/29/16 Unknown ABG pO2 133.5 mm Hg (80.0-90.0) H 12/29/16 Unknown ABG HCO3 20.6 mmol/L (20.0-26.0) 12/29/16 Unknown ABG O2 Saturation 98.6 % (95.0-99.0) 12/29/16 Unknown ABG O2 Content 16.7 (0.0-44) 12/29/16 Unknown ABG Base Excess -3.8 mmol/L (-2.0-3.0) L 12/29/16 Unknown ABG Hemoglobin 12.2 gm/dl (12.0-16.0) 12/29/16 Unknown ABG Carboxyhemoglobin 1.9 % (0.0-5.0) 12/29/16 Unknown ABG Methemoglobin 0.3 % (0.0-1.5) 12/29/16 Unknown VBG pH 7.467 (7.320-7.420) H 12/26/16 18:35 Oxyhemoglobin 96.4 % (95.0-99.0) 12/29/16 Unknown FiO2 30 % 12/29/16 Unknown Sodium 145 mmol/L (137-145) 12/31/16 05:05 Potassium 3.7 mmol/L (3.6-5.0) 12/31/16 05:05 Chloride 114.0 mmol/L (98-107) H 12/31/16 05:05 Carbon Dioxide 19 mmol/L (22-30) L 12/31/16 05:05 Anion Gap 16 mmol/L 12/31/16 05:05 BUN 16 mg/dL (7-17) 12/31/16 05:05 Creatinine 1.7 mg/dL (0.7-1.2) H 12/31/16 05:05 Estimated GFR 41 ml/min 12/31/16 05:05 BUN/Creatinine Ratio 9 % 12/31/16 05:05 Glucose 142 mg/dL (65-100) H 12/31/16 05:05 POC Glucose 156 (70-105) H 12/31/16 06:48 Hemoglobin A1c 8.7 % (4-6) H 12/26/16 Unknown Lactic Acid 1.80 mmol/L (0.7-2.0) 12/30/16 14:49 Calcium 8.6 mg/dL (8.4-10.2) 12/31/16 05:05 Phosphorus 3.30 mg/dL (2.5-4.5) 12/26/16 18:35 Magnesium 1.80 mg/dL (1.7-2.3) 12/30/16 05:00 Total Bilirubin 0.60 mg/dL (0.1-1.2) 12/26/16 18:35 AST 16 units/L (5-40) 12/26/16 18:35 ALT 10 units/L (7-56) 12/26/16 18:35 Alkaline Phosphatase 82 units/L (35-129) 12/26/16 18:35 Total Protein 5.8 g/dL (6.3-8.2) L 12/26/16 18:35 Albumin 2.8 g/dL (3.9-5) L 12/26/16 18:35 Albumin/Globulin Ratio 0.9 % 12/26/16 18:35 Triglycerides 177 mg/dL (2-149) H 12/29/16 09:12 HCG, Quant < 2 mIU/mL (0-4) 12/26/16 18:35 Urine Color Yellow (Yellow) 12/26/16 18:37 Urine Turbidity Clear (Clear) 12/26/16 18:37 Urine pH 6.0 (5.0-7.0) 12/26/16 18:37 Ur Specific [place] 1.023 (1.003-1.030) 12/26/16 18:37 Urine Protein >500 mg/dL (Negative) 12/26/16 18:37 Urine Glucose (UA) >=500 mg/dL (Negative) 12/26/16 18:37 Urine Ketones Neg mg/dL (Negative) 12/26/16 18:37 Urine Blood Mod (Negative) 12/26/16 18:37 Urine Nitrite Neg (Negative) 12/26/16 18:37 Urine Bilirubin Neg (Negative) 12/26/16 18:37 Urine Urobilinogen < 2.0 mg/dL (<2.0) 12/26/16 18:37 Ur Leukocyte Esterase Neg (Negative) 12/26/16 18:37 Urine WBC (Auto) 2.0 /HPF (0.0-6.0) 12/26/16 18:37 Urine RBC (Auto) 1.0 /HPF (0.0-6.0) 12/26/16 18:37 U Epithel Cells (Auto) < 1.0 /HPF (0-13.0) 12/26/16 18:37 Urine HCG, Qual Negative (Negative) 12/26/16 18:37 Salicylates < 0.3 mg/dL (2.8-20.0) L 12/26/16 18:35 Urine Opiates Screen Presumptive negative 12/26/16 18:37 Urine Methadone Screen Presumptive negative 12/26/16 18:37 Acetaminophen < 15.0 ug/mL (10.0-30.0) 12/26/16 18:35 Ur Barbiturates Screen Presumptive negative 12/26/16 18:37 Ur Phencyclidine Scrn Presumptive negative 12/26/16 18:37 Ur Amphetamines Screen Presumptive negative 12/26/16 18:37 U Benzodiazepines Scrn Presumptive negative 12/26/16 18:37 Urine Cocaine Screen Presumptive negative 12/26/16 18:37 U Marijuana (THC) Screen Presumptive negative 12/26/16 18:37 Drugs of Abuse Note Disclamer 12/26/16 18:37
[2016-12-31] MEDS: COREG PO SCH ×2 (12:23→21:00)
[2016-12-31] MEDS: KEPPRA PO SCH ×2 (12:24→21:00)
[2016-12-31] MEDS: PEPCID PO SCH ×2 (12:25→21:00)
[2016-12-31] MEDS: LOVENOX SUB-Q SCH (21:01)
[2017-01-01] MEDS: NOVOLOG SUB-Q SCH ×3 (01:01→12:30)
[2017-01-01 08:02] VITALS: BP 136/83
--- NOTE | 2017-01-01 09:08 | Discharge Summary ---
Providers - Providers Date of Admission: 12/26/16 22:18 Attending physician: WIL RAMIREZ MD 12/28/16 10:37 Consult to Dietitian/Nutrition [CONS] Routine Physician Instructions: Diabetic Tube Feeding Reason For Exam: Reason for Consult: Write/Manage Tube Feeding 12/28/16 17:22 Consult to PICC Line RN [CONS] Urgent Reason For Exam: Fentanyl and diprivan drips. Type Line:: PICC 12/31/16 17:36 Consult to Physician [CONS] Routine Consulting Provider: GONZALO ALBRIGHT Reason For Exam: seizure Place consult to:: jania Notified:: service Phone number called:: [phone] Was contact made?: Yes Time called:: 18:33 Primary care physician: SILK SCREEN ETCHER Hospitalization Reason for admission: seizure Condition: Stable Hospital course: Patient is a 36-year-old woman with a history of insulin-dependent diabetes mellitus, gastroparesis who presented with altered mental status and seizures at home. She was intubated for airway protection and subsequently extubated -Acute hypoxic respiratory failure nearing 96 hours: -Status epilepticus: * Patient was treated with IV Keppra and switched to keppra, [place] against driving discussed in detail with the patient. Etiology of the seizure was not noted this is the first seizure patient has had. Recommended a neurology follow -up of admission. -Acute encephalopathy due to seizure, -Resolved -Sinus Tachycardia. * Started on Low dose BB. no evidence of sepsis at this time. NO new fever. * PER Patient this is chronic, Cardiology eval recommended on discharge -Lactic acidosis: * likely elevated due to SEIZURE. Resolved on recheck -HTN: * ACEI Discontinued, due to hx of angioedema * Pateint stated on BB -Hypokalemia: * Corrected Replaced -Uncontrolled type 2 diabetes mellitus with honk: * Continue insulin. Diabetic education provided -Hypokalemia-corrected -Acute on chronic anemia * Stable - Plan discussed with the patient. she is not to drive for 6-9 months untill cleared by Neurology Disposition: DC-01 TO HOME OR SELFCARE Time spent for discharge: 35 MINS Core Measure Documentation - Palliative Care Palliative Care/ Comfort Measures: Not Applicable - Core Measures Any of the following diagnoses?: none - VTE Discharge Requirements Deep Vein Thrombosis/Pulmonary Embolism Present on Admission: No Exam - Physical Exam Narrative exam: VITAL SIGNS: Reviewed. GENERAL: The patient appeared well nourished and normally developed. Vital signs as documented. HEAD: No signs of head trauma. EYES: Pupils are equal. Extraocular motions intact. EARS: Hearing grossly intact. MOUTH: Oropharynx is normal. NECK: No adenopathy, no JVD. CHEST: Chest with clear breath sounds bilaterally. No wheezes, rales, or rhonchi. CARDIAC: Regular rate and rhythm. S1 and S2, without murmurs, gallops, or rubs. VASCULAR: No Edema. Peripheral pulses normal and equal in all extremities. ABDOMEN: Soft, without detectable tenderness. No sign of distention. No rebound or guarding, and no masses palpated. Bowel Sounds normal. MUSCULOSKELETAL: Good range of motion of all major joints. Extremities without clubbing, cyanosis or edema. NEUROLOGIC EXAM: Alert and oriented x 3. No focal sensory or strength deficits. Speech normal. Follows commands. PSYCHIATRIC: Mood normal. SKIN: No rash or lesions. - Constitutional Vitals: Temp Pulse Resp BP Pulse Ox 98.9 F 112 H 20 136/83 100 01/01/17 08:00 01/01/17 08:00 01/01/17 08:00 01/01/17 08:00 01/01/17 08:00 Plan Activity: advance as tolerated, no driving until cleared by PCP (according to [place] DRIVING LAW. NO DRIVING FOR 6 MONTHS TILL CLEARED BY NEUROLOGY), fall precautions Diet: low fat Special Instructions: record daily weights, record daily BP diary, record blood sugar diary, smoking cessation Follow up with: PRIMARY CARE, [Primary Care Provider] - 7 Days GONZALO ALBRIGHT MD [Staff Physician] - 7 Days Prescriptions: Carvedilol [Coreg] 12.5 mg PO BID #30 tablet Insulin Regular, Human [Novolin R] 22 units SQ AC 30 Days levETIRAcetam [Keppra TAB] 1,000 mg PO BID #60 tablet
[2017-01-01] MEDS: COREG PO SCH (11:53)
[2017-01-01] MEDS: PEPCID PO SCH (11:53)
[2017-01-01] MEDS: KEPPRA PO SCH (11:53)
== END 2017-01-01 17:47 | disposition home or self-care (01) | DRG 208 ==
LOC: ED 15:29 → CC1 22:18 → 4A 12-30 13:52
PROVIDERS: ADMIT Internal Medicine; ATTEND Internal Medicine
PROC: 5A1945Z Respiratory Ventilation, 24-96 Consecutive Hours (ICD-10-PCS; 2016-12-26)
PROC: 0BH17EZ Insertion of Endotracheal Airway into Trachea, Via Natural or Artificial Opening (ICD-10-PCS; 2016-12-26)
PROC: 4A033R1 Measurement of Arterial Saturation, Peripheral, Percutaneous Approach (ICD-10-PCS; principal; 2016-12-27)
PROC: 02H633Z Insertion of Infusion Device into Right Atrium, Percutaneous Approach (ICD-10-PCS; 2016-12-29)
DX: J96.01 Acute respiratory failure with hypoxia (principal); E11.00 Type 2 diabetes mellitus with hyperosmolarity without nonketotic hyperglycemic-hyperosmolar coma (NKHHC); I42.9 Cardiomyopathy, unspecified; D64.9 Anemia, unspecified; G40.901 Epilepsy, unspecified, not intractable, with status epilepticus; E87.6 Hypokalemia; E11.43 Type 2 diabetes mellitus with diabetic autonomic (poly)neuropathy; K31.84 Gastroparesis; I10 Essential (primary) hypertension; Z79.899 Other long term (current) drug therapy; E11.65 Type 2 diabetes mellitus with hyperglycemia; Z90.49 Acquired absence of other specified parts of digestive tract; Z82.49 Family history of ischemic heart disease and other diseases of the circulatory system
CPT/HCPCS: 36415; 36600; 70450; 71010; 74000; 80048; 80053; 80307; 80320; 81001; 81025; 82140; 82803; 82805; 82962; 83036; 83735; 84100; 84478; 84702; 85025; 85027; 87040; 87070; 87086; 87205; 93005; 93010; 94002; 94003; 94760; 95819; 96365; 96366; 96367; 96372; 96375; G0480; J0330; J0360; J1650; J1815; J1953; J2060; J2405; J2543; J2704; J3010; J3370; J3475; J3480; J3486; J7030

== ENCOUNTER 2017-05-30 06:46 | Inpatient (IN) | payer OTHER ==
[2017-05-30] MEDS ORDERED: KEPPRA 1,000 MG/NS 0.75% 100ML 1,000 MG/100 ML BAG IV ONE (07:53)
[2017-05-30] MEDS ORDERED: APRESOLINE IV ONE (08:02)
[2017-05-30] MEDS ORDERED: APRESOLINE ONE (08:02)
[2017-05-30] MEDS: KEPPRA 1,000 MG in D5W 100 ML IV SCH ×2 (08:08→10:08)
[2017-05-30 08:28] LABS: Hematocrit 36.8 % (30.3-42.9); Mean Corpuscular HGB Conc 33 % (30-34); Mean Corpuscular Hemoglobin 27 pg (28-32); Mean Corpuscular Volume 84 fl (79-97); Platelet Count 383 K/mm3 (140-440); Red Blood Count 4.37 M/mm3 (3.65-5.03); Red Cell Distribution Width 16.3 % (13.2-15.2)
[2017-05-30] MEDS ORDERED: NACL 0.9% 1000 ML 1,000 ML IV ONE (08:32)
[2017-05-30] MEDS ORDERED: NACL 0.9% 1000 ML 1,000 ML ONE ×2 (08:32→12:47)
[2017-05-30 08:45] LABS: Calcium 8.7 mg/dL (8.4-10.2)
[2017-05-30] MEDS ORDERED: HumuLIN R IV ONE (09:15)
[2017-05-30] MEDS ORDERED: ATIVAN ONE (09:23)
[2017-05-30 09:25] LABS: Hematocrit 34.3 % (30.3-42.9); Hemoglobin 11.7 gm/dl (10.1-14.3); Mean Corpuscular HGB Conc 34 % (30-34); Mean Corpuscular Hemoglobin 28 pg (28-32); Mean Corpuscular Volume 81 fl (79-97); Platelet Count 378 K/mm3 (140-440); Red Blood Count 4.22 M/mm3 (3.65-5.03)
[2017-05-30] MEDS ORDERED: ATIVAN IV ONE ×2 (09:25→10:18)
[2017-05-30 09:44] LABS: Albumin 2.9 g/dL (3.9-5); Calcium 8.8 mg/dL (8.4-10.2)
[2017-05-30 10:02] LABS: Monocytes % (Manual) 0 % (0.0-7.3); Total Cells Counted 100
[2017-05-30 10:03] LABS: Anisocytosis 1+; Ovalocytes 1+; Poikilocytosis 1+
[2017-05-30] MEDS ORDERED: D50W (25GM) Syringe IV PRN (11:34)
[2017-05-30] MEDS ORDERED: ZEMURON IV ONE ×2 (11:56→12:15)
[2017-05-30] MEDS ORDERED: AMIDATE IV ONE ×2 (11:57→12:15)
--- NOTE | 2017-05-30 12:23 | History and Physical Report ---
History of Present Illness Date of examination: 05/30/17 Date of admission: 05/30/17 11:38 Chief complaint: Chief complaint: seizures 1. Headache Elevated blood sugar History of present illness: History of Present Illness: 36-year-old female with history of hypertension seizures and insulin-dependent diabetes brought in because she had a tonic seizure with active sensorium. Patient's altered sensorium did not resolve. Also started having headache. In the past when patient had the symptoms she was diagnosed with severe hyperglycemia. Seizure was tonic. No clonic activity. No tongue biting. No shortness of breath. Happened in the daughter's room. No fever no chills. No shortness of breath. No recent travel. Patient intubated in the emergency room for airway protection secondary to patient being very lethargic and altered sensorium . Past Medical History Hypertension: Yes Diabetes: Yes Seizure disorder Additional medical history: gastroparesis, cardiomyopathy Surgical History Hx Cholecystectomy: Yes Additional Surgical History: breast reduction Social History Smoking Status: Unknown if ever smoked Medications Home Medications: Home Medications Medication Instructions Recorded Confirmed Last Taken Type Carvedilol [Coreg] 12.5 mg PO BID #30 tablet 01/01/17 Unknown Rx Insulin Regular, Human [Novolin R] 22 units SQ AC 30 Days vial 01/01/17 Unknown Rx levETIRAcetam [Keppra TAB] 1,000 mg PO BID #60 tablet 01/01/17 Unknown Rx Medications and Allergies Allergies Allergy/AdvReac Type Severity Reaction Status Date / Time lisinopril Allergy Angioedema Verified 12/30/16 12:06 Home Medications Medication Instructions Recorded Confirmed Last Taken Type Carvedilol [Coreg] 12.5 mg PO BID #30 tablet 01/01/17 Unknown Rx Insulin Regular, Human [Novolin R] 22 units SQ AC 30 Days vial 01/01/17 Unknown Rx levETIRAcetam [Keppra TAB] 1,000 mg PO BID #60 tablet 01/01/17 Unknown Rx Active Meds: Active Medications Dextrose (D50w (25gm) Syringe) 0 ml IV ONCE PRN PRN Reason: Hypoglycemia Levetiracetam 1,000 mg/ (Dextrose) 110 mls @ 400 mls/hr IV Q12HR GUZMAN Last Admin: 05/30/17 10:08 Dose: Not Given Review of Systems All systems: negative Constitutional: no weight loss, no weight gain, no fever, no chills Ears, nose, mouth and throat: no sore throat, no swelling in mouth Cardiovascular: no chest pain, no orthopnea, no palpitations, no rapid/ irregular heart beat, no edema, no syncope, no lightheadedness, no shortness of breath Respiratory: no cough, no cough with sputum, no excessive sputum, no hemoptysis , no shortness of breath, no dyspnea on exertion Gastrointestinal: no abdominal pain, no nausea, no vomiting, no diarrhea, no constipation Genitourinary Female: no flank pain, no dysuria, no urinary frequency, no urgency, no stress incontinence, no post void dribbling, no incomplete emptying Rectal: no pain Musculoskeletal: no neck stiffness, no neck pain, no shooting arm pain, no arm numbness/tingling, no low back pain, no shooting leg pain, no leg numbness/ tingling, no redness of joints Integumentary: no rash, no pruritis, no redness, no sores, no wounds, no jaundice, no boils, no blisters Neurological: no seizures, no syncope Psychiatric: no anxiety, no memory loss, no change in sleep habits, no sleep disturbances, no insomnia, no hypersomnia, no change in appetite, no change in libido Endocrine: no cold intolerance, no heat intolerance, no polyphagia, no excessive thirst, no polydipsia, no polyuria Hematologic/Lymphatic: no easy bruising, no easy bleeding Allergic/Immunologic: no urticaria, no allergic rhinitis, no wheezing (O) Exam - Constitutional Vitals: Temp Pulse Resp BP Pulse Ox 104 H 19 186/131 100 05/30/17 08:00 05/30/17 08:00 05/30/17 08:00 05/30/17 07:46 General appearance: Present: severe distress, well-nourished - EENT Eyes: Present: PERRL ENT: hearing intact, clear oral mucosa - Neck Neck: Present: supple, normal ROM - Respiratory Respiratory effort: normal Respiratory: bilateral: CTA - Cardiovascular Heart rate: 80 Rhythm: regular Heart Sounds: Present: S1 & S2. Absent: rub, click - Extremities Extremities: no ischemia, pulses intact (plan Rhinocort bleeding), pulses symmetrical, No edema Peripheral Pulses: within normal limits - Abdominal General gastrointestinal: Present: soft, non-tender, non-distended, normal bowel sounds Female genitourinary: Present: normal - Integumentary Integumentary: Present: clear, warm, dry - Musculoskeletal Musculoskeletal: generalized weakness, other - Psychiatric Psychiatric: other (could not be done) - Neurologic Neurologic: CNII-XII intact, moves all extremities - Allied Health Allied health notes reviewed: nursing, case management Results - Labs CBC & Chem 7: 05/30/17 08:59 05/30/17 16:08 Labs: Laboratory Last Values WBC 14.5 K/mm3 (4.5-11.0) H 05/30/17 08:59 RBC 4.22 M/mm3 (3.65-5.03) 05/30/17 08:59 Hgb 11.7 gm/dl (10.1-14.3) 05/30/17 08:59 Hct 34.3 % (30.3-42.9) 05/30/17 08:59 MCV 81 fl (79-97) 05/30/17 08:59 MCH 28 pg (28-32) 05/30/17 08:59 MCHC 34 % (30-34) 05/30/17 08:59 RDW 16.0 % (13.2-15.2) H 05/30/17 08:59 Plt Count 378 K/mm3 (140-440) 05/30/17 08:59 Add Manual Diff Complete 05/30/17 08:59 Total Counted 100 05/30/17 08:59 Seg Neutrophils % [employer] Operator 05/30/17 08:59 Seg Neuts % (Manual) 95.0 % (40.0-70.0) H 05/30/17 08:59 Band Neutrophils % 0 % 05/30/17 08:59 Lymphocytes % (Manual) 2.0 % (13.4-35.0) L 05/30/17 08:59 Reactive Lymphs % (Man) 0 % 05/30/17 08:59 Monocytes % (Manual) 0 % (0.0-7.3) 05/30/17 08:59 Eosinophils % (Manual) 1.0 % (0.0-4.3) 05/30/17 08:59 Basophils % (Manual) 2.0 % (0.0-1.8) H 05/30/17 08:59 Metamyelocytes % 0 % 05/30/17 08:59 Myelocytes % 0 % 05/30/17 08:59 Promyelocytes % 0 % 05/30/17 08:59 Blast Cells % 0 % 05/30/17 08:59 Nucleated RBC % Not Reportable 05/30/17 08:59 Seg Neutrophils # Man 13.8 K/mm3 (1.8-7.7) H 05/30/17 08:59 Band Neutrophils # 0.0 K/mm3 05/30/17 08:59 Lymphocytes # (Manual) 0.3 K/mm3 (1.2-5.4) L 05/30/17 08:59 Abs React Lymphs (Man) 0.0 K/mm3 05/30/17 08:59 Monocytes # (Manual) 0.0 K/mm3 (0.0-0.8) 05/30/17 08:59 Eosinophils # (Manual) 0.1 K/mm3 (0.0-0.4) 05/30/17 08:59 Basophils # (Manual) 0.3 K/mm3 (0.0-0.1) H 05/30/17 08:59 Metamyelocytes # 0.0 K/mm3 05/30/17 08:59 Myelocytes # 0.0 K/mm3 05/30/17 08:59 Promyelocytes # 0.0 K/mm3 05/30/17 08:59 Blast Cells # 0.0 K/mm3 05/30/17 08:59 WBC Morphology Not Reportable 05/30/17 08:59 Hypersegmented Neuts Not Reportable 05/30/17 08:59 Hyposegmented Neuts Not Reportable 05/30/17 08:59 Hypogranular Neuts Not Reportable 05/30/17 08:59 Smudge Cells Not Reportable 05/30/17 08:59 Toxic Granulation Not Reportable 05/30/17 08:59 Toxic Vacuolation Not Reportable 05/30/17 08:59 Dohle Bodies Not Reportable 05/30/17 08:59 Pelger-Huet Anomaly Not Reportable 05/30/17 08:59 Don Rods Not Reportable 05/30/17 08:59 Platelet Estimate Appears normal 05/30/17 08:59 Clumped Platelets Not Reportable 05/30/17 08:59 Plt Clumps, EDTA Not Reportable 05/30/17 08:59 Large Platelets Not Reportable 05/30/17 08:59 Giant Platelets Not Reportable 05/30/17 08:59 Platelet Satelliting Not Reportable 05/30/17 08:59 Plt Morphology Comment Not Reportable 05/30/17 08:59 RBC Morphology Not Reportable 05/30/17 08:59 Dimorphic RBCs Not Reportable 05/30/17 08:59 Polychromasia Not Reportable 05/30/17 08:59 Hypochromasia Not Reportable 05/30/17 08:59 Poikilocytosis 1+ 05/30/17 08:59 Anisocytosis 1+ 05/30/17 08:59 Microcytosis Not Reportable 05/30/17 08:59 Macrocytosis Not Reportable 05/30/17 08:59 Spherocytes Not Reportable 05/30/17 08:59 Pappenheimer Bodies Not Reportable 05/30/17 08:59 Sickle Cells Not Reportable 05/30/17 08:59 Target Cells Not Reportable 05/30/17 08:59 Tear Drop Cells Not Reportable 05/30/17 08:59 Ovalocytes 1+ 05/30/17 08:59 Helmet Cells Not Reportable 05/30/17 08:59 Wade-[place]ola Bodies Not Reportable 05/30/17 08:59 Mallory Rings Not Reportable 05/30/17 08:59 Cecy Cells Not Reportable 05/30/17 08:59 Bite Cells Not Reportable 05/30/17 08:59 Crenated Cell Not Reportable 05/30/17 08:59 Elliptocytes Few 05/30/17 08:59 Acanthocytes (Spur) Not Reportable 05/30/17 08:59 Rouleaux Not Reportable 05/30/17 08:59 Hemoglobin C Crystals Not Reportable 05/30/17 08:59 Schistocytes Not Reportable 05/30/17 08:59 Malaria parasites Not Reportable 05/30/17 08:59 Fadi Bodies Not Reportable 05/30/17 08:59 Hem Pathologist Commnt No 05/30/17 08:59 VBG pH 7.327 (7.320-7.420) 05/30/17 10:43 Sodium 134 mmol/L (137-145) L 05/30/17 08:59 Potassium 3.9 mmol/L (3.6-5.0) 05/30/17 08:59 Chloride 90.8 mmol/L (98-107) L 05/30/17 08:59 Carbon Dioxide 23 mmol/L (22-30) 05/30/17 08:59 Anion Gap 24 mmol/L 05/30/17 08:59 BUN 28 mg/dL (7-17) H 05/30/17 08:59 Creatinine 2.0 mg/dL (0.7-1.2) H 05/30/17 08:59 Estimated GFR 34 ml/min 05/30/17 08:59 BUN/Creatinine Ratio 14 % 05/30/17 08:59 Glucose 742 mg/dL (65-100) H* 05/30/17 08:59 POC Glucose > 500 (70-105) H 05/30/17 08:32 Calcium 8.8 mg/dL (8.4-10.2) 05/30/17 08:59 Phosphorus 3.70 mg/dL (2.5-4.5) 05/30/17 08:59 Magnesium 1.70 mg/dL (1.7-2.3) 05/30/17 08:59 Total Bilirubin 0.80 mg/dL (0.1-1.2) 05/30/17 08:59 AST 37 units/L (5-40) 05/30/17 08:59 ALT 34 units/L (7-56) 05/30/17 08:59 Alkaline Phosphatase 246 units/L (35-129) H 05/30/17 08:59 Total Protein 5.6 g/dL (6.3-8.2) L 05/30/17 08:59 Albumin 2.9 g/dL (3.9-5) L 05/30/17 08:59 Albumin/Globulin Ratio 1.1 % 05/30/17 08:59 Short CBC 05/30/17 05/30/17 Range/Units 07:48 08:59 WBC 11.5 H 14.5 H (4.5-11.0) K/mm3 Hgb 12.0 11.7 (10.1-14.3) gm/dl Hct 36.8 34.3 (30.3-42.9) % Plt Count 383 378 (140-440) K/mm3 BMP 05/30/17 05/30/1718 07:48 08:59 16:08 Sodium 133 L 134 L 135 L Potassium 4.0 3.9 3.2 L Chloride 89.9 L 90.8 L 93.6 L Carbon Dioxide 27 23 23 BUN 27 H 28 H 30 H Creatinine 2.0 H 2.0 H 2.1 H Glucose 741 H* 742 H* 567 H* Calcium 8.7 8.8 8.5 Liver Function 05/30/17 Range/Units 08:59 Total Bilirubin 0.80 (0.1-1.2) mg/dL AST 37 (5-40) units/L ALT 34 (7-56) units/L Alkaline Phosphatase 246 H (35-129) units/L Albumin 2.9 L (3.9-5) g/dL Urine 05/30/17 Range/Units 15:04 Urine Color Yellow (Yellow) Urine pH 7.0 (5.0-7.0) Ur Specific [place] 1.021 (1.003-1.030) Urine Protein >500 (Negative) mg/dL Urine Glucose (UA) >=500 (Negative) mg/dL - Imaging and Cardiology EKG: report reviewed (sinus tachycardia) Chest x-ray: report reviewed Imaging and Cardiology: Chest x-ray Left lung base opacity suggestive of moderate left pleural effusion Bilateral lung opacities which may be edema atelectasis and pneumonia Cardiac size in the upper limits of normal with vascular markings suggestive of mild vascular congestion Assessment and Plan Assessment and plan: The high probability of a clinically significant, sudden or life threatening deterioration of the [Pulmonary, cadiac, renal] system(s) required my full and direct attention, intervention and personal management. The aggregate critical care time was [45] minutes. This time is in addition to time spent performing reported procedures but includes the following: [x] Data Review and interpretation [x] Patient assessment and monitoring of vital signs [x] Documentation [x] Medication orders and management Advance Directives: Yes (full code) VTE prophylaxis?: Chemical Plan of care discussed with patient/family: Yes - Patient Problems (1) Hyperosmolar non-ketotic state in patient with type 2 diabetes mellitus Current Visit: Yes Status: Acute Plan to address problem: Patient initiated on IV insulin and IV fluids. Even though patient is in hyperosmolar nonketotic state I have initiated DKA protocol. Patient to be on insulin ip and IV fluids (2) Acute respiratory failure Current Visit: Yes Status: Acute Qualifiers: Respiratory failure complication: hypoxia Qualified Code(s): J96.01 - Acute respiratory failure with hypoxia Plan to address problem: Patient intubated Duonebs every 6 [id number] and every 3 when necessary (3) Seizure disorder Current Visit: Yes Status: Acute Plan to address problem: Continue IV Keppra (4) Hypertension Current Visit: Yes Status: Acute Qualifiers: Hypertension type: essential hypertension Qualified Code(s): I10 - Essential (primary) hypertension Plan to address problem: continue antihypertensives. Catapres patch if necessary (5) DVT prophylaxis Current Visit: Yes Status: Acute Plan to address problem: Heparin 5000 every 8 subcutaneous
[2017-05-30] MEDS: COREG PO SCH (13:07)
[2017-05-30] MEDS: KEPPRA PO SCH ×2 (13:07→17:36)
--- NOTE | 2017-05-30 13:07 | XRay Report ---
Single view chest: Compared to 12/30/16. History: Postintubation. Findings: Cardiomegaly. Tip of endotracheal tube is noted at the proximal right mainstem bronchus. It should be withdrawn approximately 3 cm. Mild pulmonary venous congestion without definite evidence of consolidation. Normal CP angles. Impression: Tip of endotracheal tube should be withdrawn approximately 3 cm as detailed above. Mild pulmonary venous congestion.
--- NOTE | 2017-05-30 13:51 | Cat Scan Report ---
FINAL REPORT EXAM: CT HEAD/BRAIN WO CON HISTORY: AMS TECHNIQUE: CT examination of the head without IV contrast PRIORS: 12/26/2016 FINDINGS: Oral tube partly visualized. Nonspecific small fluid levels in the sphenoid sinuses. Bone windows demonstrate no acute fracture. The brain is without mass, mass effect, hemorrhage, or acute infarct. There is no extra-axial intracranial bleed, brain bleed, or midline shift. The ventricles and sulci are age-appropriate. IMPRESSION: No acute CVA, intracranial bleed, or brain mass Sphenoid sinus fluid levels may be effusions related to oral intubation. Differential includes acute sinusitis
--- NOTE | 2017-05-30 13:51 | Emergency Department Report ---
ED Altered Mental Status HPI - General Chief Complaint: Seizure Stated Complaint: SEIZURE Time Seen by Provider: 05/30/17 08:21 Source: patient, family Mode of arrival: Stretcher Limitations: No Limitations - History of Present Illness Initial Comments: PT. IS HERE AFTER SHE WENT TO HER DAUGHTER ROOM AND SAID SHE HAD A SEIZURE. HER DAUGHTER SAID SHE HAD A WITNESSED SEIZURE WHICH WAS TONIC IN NATURE. LASTED ABOUT 1.5 MINUTES. SHE BEEN CONFUSED SINCE AND SHE ALSO TOLD HER DAUGHTER SHE A HEADACHE . THE LAST TIME THIS HAPPENED IT WAS ATTRIBUTED TO HER HYPERGLYCEMIA MD Complaint: altered mental status, other (SEIZURE) Onset/Timin (HOURS) -: Gradual Severity: moderate Consistency of Symptoms: waxing and waning - Related Data Previous Rx's Medication Instructions Recorded Last Taken Type Carvedilol [Coreg] 12.5 mg PO BID #30 tablet 01/01/17 Unknown Rx Insulin Regular, Human [Novolin R] 22 units SQ AC 30 Days vial 01/01/17 Unknown Rx levETIRAcetam [Keppra TAB] 1,000 mg PO BID #60 tablet 01/01/17 Unknown Rx Allergies Allergy/AdvReac Type Severity Reaction Status Date / Time lisinopril Allergy Angioedema Verified 12/30/16 12:06 ED Review of Systems ROS: Stated complaint: SEIZURE Other details as noted in HPI Comment: Unobtainable due to pts medical conditions ED Past Medical Hx - Past Medical History Hx Hypertension: Yes Hx Diabetes: Yes Hx Deep Vein Thrombosis: No Additional medical history: gastroparesis, cardiomyopathy - Surgical History Hx Pacemaker: No Hx Internal Defibrillator: No Hx Cholecystectomy: Yes Additional Surgical History: breast reduction - Social History Smoking Status: Unknown if ever smoked - Medications Home Medications: Home Medications Medication Instructions Recorded Confirmed Last Taken Type Carvedilol [Coreg] 12.5 mg PO BID #30 tablet 01/01/17 Unknown Rx Insulin Regular, Human [Novolin R] 22 units SQ AC 30 Days vial 01/01/17 Unknown Rx levETIRAcetam [Keppra TAB] 1,000 mg PO BID #60 tablet 01/01/17 Unknown Rx ED Physical Exam - General Limitations: No Limitations General appearance: alert, other (CONFUSED) - Head Head exam: Present: atraumatic, normocephalic - Eye Eye exam: Present: normal appearance Pupils: Present: normal accommodation - ENT ENT exam: Present: mucous membranes moist - Neck Neck exam: Present: normal inspection - Respiratory Respiratory exam: Present: normal lung sounds bilaterally. Absent: respiratory distress - Cardiovascular Cardiovascular Exam: Present: regular rate, normal rhythm. Absent: systolic murmur, diastolic murmur, rubs, gallop - GI/Abdominal GI/Abdominal exam: Present: soft, normal bowel sounds. Absent: tenderness - Rectal Rectal exam: Present: deferred - Extremities Exam Extremities exam: Present: normal inspection. Absent: full ROM - Back Exam Back exam: Present: normal inspection. Absent: full ROM - Neurological Exam Neurological exam: Present: alert. Absent: oriented X3 - Psychiatric Psychiatric exam: Present: normal affect, normal mood - Skin Skin exam: Present: warm, dry, intact, normal color. Absent: rash ED Course Vital Signs 05/30/17 05/30/17 05/30/17 06:58 07:00 07:16 Pulse Rate 101 H 105 H 103 H Respiratory 23 15 21 Rate Blood Pressure 191/119 191/119 O2 Sat by Pulse 59 L Oximetry 05/30/17 05/30/17 05/30/17 07:30 07:46 08:00 Pulse Rate 101 H 103 H 104 H Respiratory 10 L 21 19 Rate Blood Pressure 182/123 182/123 186/131 O2 Sat by Pulse 100 100 Oximetry - Intubation Time Out Performed: Yes Sedative: Etomidate Mg Given: 20 Paralytic: Rocuronium Mg Given: 100 Laryngoscope: other (glidescope) Size: 3 Assist Device Used: other (glideoscope) ET Tube Size: 8 Tube Secured Depth (cm): 23 Tube Placement Confirmation: visualized tube passing t, confirmation by capnometr Patient Tolerated Procedure: other Intubation Complications: none - Lab Data Result diagrams: 05/30/17 08:59 05/30/17 08:59 Lab Results 05/30/17 05/30/17 05/30/17 Range/Units 07:48 07:48 08:32 WBC 11.5 H (4.5-11.0) K/mm3 RBC 4.37 (3.65-5.03) M/mm3 Hgb 12.0 (10.1-14.3) gm/dl Hct 36.8 (30.3-42.9) % MCV 84 (79-97) fl MCH 27 L (28-32) pg MCHC 33 (30-34) % RDW 16.3 H (13.2-15.2) % Plt Count 383 (140-440) K/mm3 Add Manual Diff Total Counted Seg Neutrophils % Seg Neuts % (Manual) (40.0-70.0) % Band Neutrophils % % Lymphocytes % (Manual) (13.4-35.0) % Reactive Lymphs % (Man) % Monocytes % (Manual) (0.0-7.3) % Eosinophils % (Manual) (0.0-4.3) % Basophils % (Manual) (0.0-1.8) % Metamyelocytes % % Myelocytes % % Promyelocytes % % Blast Cells % % Nucleated RBC % Seg Neutrophils # Man (1.8-7.7) K/mm3 Band Neutrophils # K/mm3 Lymphocytes # (Manual) (1.2-5.4) K/mm3 Abs React Lymphs (Man) K/mm3 Monocytes # (Manual) (0.0-0.8) K/mm3 Eosinophils # (Manual) (0.0-0.4) K/mm3 Basophils # (Manual) (0.0-0.1) K/mm3 Metamyelocytes # K/mm3 Myelocytes # K/mm3 Promyelocytes # K/mm3 Blast Cells # K/mm3 WBC Morphology Hypersegmented Neuts Hyposegmented Neuts Hypogranular Neuts Smudge Cells Toxic Granulation Toxic Vacuolation Dohle Bodies Pelger-Huet Anomaly Don Rods Platelet Estimate Clumped Platelets Plt Clumps, EDTA Large Platelets Giant Platelets Platelet Satelliting Plt Morphology Comment RBC Morphology Dimorphic RBCs Polychromasia Hypochromasia Poikilocytosis Anisocytosis Microcytosis Macrocytosis Spherocytes Pappenheimer Bodies Sickle Cells Target Cells Tear Drop Cells Ovalocytes Helmet Cells Wade-Clifford Bodies [place] Rings Harvard Cells Bite Cells Crenated Cell Elliptocytes Acanthocytes (Spur) Rouleaux Hemoglobin C Crystals Schistocytes Malaria parasites Fadi Bodies Hem Pathologist Commnt VBG pH (7.320-7.420) Sodium 133 L (137-145) mmol/L Potassium 4.0 (3.6-5.0) mmol/L Chloride 89.9 L (98-107) mmol/L Carbon Dioxide 27 (22-30) mmol/L Anion Gap 20 mmol/L BUN 27 H (7-17) mg/dL Creatinine 2.0 H (0.7-1.2) mg/dL Estimated GFR 34 ml/min BUN/Creatinine Ratio 14 % Glucose 741 H* (65-100) mg/dL POC Glucose > 500 H (70-105) Calcium 8.7 (8.4-10.2) mg/dL Phosphorus (2.5-4.5) mg/dL Magnesium (1.7-2.3) mg/dL Total Bilirubin (0.1-1.2) mg/dL AST (5-40) units/L ALT (7-56) units/L Alkaline Phosphatase (35-129) units/L Total Protein (6.3-8.2) g/dL Albumin (3.9-5) g/dL Albumin/Globulin Ratio % 05/30/17 05/30/17 05/30/17 Range/Units 08:59 08:59 10:43 WBC 14.5 H (4.5-11.0) K/mm3 RBC 4.22 (3.65-5.03) M/mm3 Hgb 11.7 (10.1-14.3) gm/dl Hct 34.3 (30.3-42.9) % MCV 81 (79-97) fl MCH 28 (28-32) pg MCHC 34 (30-34) % RDW 16.0 H (13.2-15.2) % Plt Count 378 (140-440) K/mm3 Add Manual Diff Complete Total Counted 100 Seg Neutrophils % Tube Cleaning Operator Seg Neuts % (Manual) 95.0 H (40.0-70.0) % Band Neutrophils % 0 % Lymphocytes % (Manual) 2.0 L (13.4-35.0) % Reactive Lymphs % (Man) 0 % Monocytes % (Manual) 0 (0.0-7.3) % Eosinophils % (Manual) 1.0 (0.0-4.3) % Basophils % (Manual) 2.0 H (0.0-1.8) % Metamyelocytes % 0 % Myelocytes % 0 % Promyelocytes % 0 % Blast Cells % 0 % Nucleated RBC % Not Reportable Seg Neutrophils # Man 13.8 H (1.8-7.7) K/mm3 Band Neutrophils # 0.0 K/mm3 Lymphocytes # (Manual) 0.3 L (1.2-5.4) K/mm3 Abs React Lymphs (Man) 0.0 K/mm3 Monocytes # (Manual) 0.0 (0.0-0.8) K/mm3 Eosinophils # (Manual) 0.1 (0.0-0.4) K/mm3 Basophils # (Manual) 0.3 H (0.0-0.1) K/mm3 Metamyelocytes # 0.0 K/mm3 Myelocytes # 0.0 K/mm3 Promyelocytes # 0.0 K/mm3 Blast Cells # 0.0 K/mm3 WBC Morphology Not Reportable Hypersegmented Neuts Not Reportable Hyposegmented Neuts Not Reportable Hypogranular Neuts Not Reportable Smudge Cells Not Reportable Toxic Granulation Not Reportable Toxic Vacuolation Not Reportable Dohle Bodies Not Reportable Pelger-Huet Anomaly Not Reportable Don Rods Not Reportable Platelet Estimate Appears normal Clumped Platelets Not Reportable Plt Clumps, EDTA Not Reportable Large Platelets Not Reportable Giant Platelets Not Reportable Platelet Satelliting Not Reportable Plt Morphology Comment Not Reportable RBC Morphology Not Reportable Dimorphic RBCs Not Reportable Polychromasia Not Reportable Hypochromasia Not Reportable Poikilocytosis 1+ Anisocytosis 1+ Microcytosis Not Reportable Macrocytosis Not Reportable Spherocytes Not Reportable Pappenheimer Bodies Not Reportable Sickle Cells Not Reportable Target Cells Not Reportable Tear Drop Cells Not Reportable Ovalocytes 1+ Helmet Cells Not Reportable Wade-Clifford Bodies Not Reportable [place] Rings Not Reportable Harvard Cells Not Reportable Bite Cells Not Reportable Crenated Cell Not Reportable Elliptocytes Few Acanthocytes (Spur) Not Reportable Rouleaux Not Reportable Hemoglobin C Crystals Not Reportable Schistocytes Not Reportable Malaria parasites Not Reportable Fadi Bodies Not Reportable Hem Pathologist Commnt No VBG pH 7.327 (7.320-7.420) Sodium 134 L (137-145) mmol/L Potassium 3.9 (3.6-5.0) mmol/L Chloride 90.8 L (98-107) mmol/L Carbon Dioxide 23 (22-30) mmol/L Anion Gap 24 mmol/L BUN 28 H (7-17) mg/dL Creatinine 2.0 H (0.7-1.2) mg/dL Estimated GFR 34 ml/min BUN/Creatinine Ratio 14 % Glucose 742 H* (65-100) mg/dL POC Glucose (70-105) Calcium 8.8 (8.4-10.2) mg/dL Phosphorus 3.70 (2.5-4.5) mg/dL Magnesium 1.70 (1.7-2.3) mg/dL Total Bilirubin 0.80 (0.1-1.2) mg/dL AST 37 (5-40) units/L ALT 34 (7-56) units/L Alkaline Phosphatase 246 H (35-129) units/L Total Protein 5.6 L (6.3-8.2) g/dL Albumin 2.9 L (3.9-5) g/dL Albumin/Globulin Ratio 1.1 % - Medical Decision Making I sdpoke to Dr Morrell about the patient and he was okay with the insulin drip and admitting to ICU. patient was confused and i needed to do a ct head and she didnot allow one done. The hiusband gave conset for intubation.before intubation she got rocuronium and etomidate and during intubation she lost her pulse and was in PEA for 6minutes before the ROSC. I did inform Dr Morrell of this.I also spoke to Dr Sousa who said to admit to Dr Haile. I alos spoke to Dr Umaña about the patient and he said put the consult in and he will see the patient Critical Care Time: Yes Critical care time in (mins) excluding proc time.: 45 (min) Critical care attestation.: If time is entered above; I have spent that time in minutes in the direct care of this critically ill patient, excluding procedure time. ED Disposition Clinical Impression: Hyperglycemia, Altered mental state, Seizure Disposition: [id number] OP ADMIT IP TO THIS HOSP Is pt being admited?: Yes Does the pt Need Aspirin: No
[2017-05-30] MEDS ORDERED: VASELINE LIP THERAPY TP PRN (14:08)
[2017-05-30] MEDS ORDERED: NACL 0.9% 500 ML IV SCH (15:00)
[2017-05-30 15:13] LABS: Bacteria,Urine 1+ /HPF (Negative); Bilirubin,Urine NEG (Negative); Blood,Urine SM (Negative); Color,Urine Yellow (Yellow); Mucus,Urine FEW /HPF; Protein,Urine >500 mg/dL (Negative); Urobilinogen,Urine < 2.0 mg/dL (<2.0)
[2017-05-30 15:20] LABS: Amphetamine Screen,Urine PRESUMPTIVE NEGATIVE; Benzodiazepines Screen,Urine PRESUMPTIVE NEGATIVE; Cocaine Screen,Urine PRESUMPTIVE NEGATIVE; Methadone Screen,Urine PRESUMPTIVE NEGATIVE; Opiate Screen,Urine PRESUMPTIVE NEGATIVE
[2017-05-30 15:40] LABS: Cannabinoid Screen,Urine PRESUMPTIVE POSITIVE
--- NOTE | 2017-05-30 15:57 | Consultation ---
History of Present Illness Consult date: 05/30/17 Reason for consult: other (seizure disorder and respiratory failure) History of present illness: This is a 36-year-old -[place] female with known history of hypertension diabetes and seizure disorder was brought to the emergency room after sustaining 2 episodes of grand mal type seizures. Patient in emergency room was quite agitated. In spite of Ativan she kind of remained agitated and it was felt by ER physician that she needed a head CT of the chest but due to agitation it could not be performed. In order to protect her airway she was intubated. However during intubation patient sustained PEA arrest was resuscitated CPR was done for approximately 5 minutes or so. Patient is now intubated and being mechanically ventilated. Past History Past Medical History: diabetes, hypertension, seizures Social history: no significant social history Family history: no significant family history Medications and Allergies Allergies Allergy/AdvReac Type Severity Reaction Status Date / Time lisinopril Allergy Angioedema Verified 12/30/16 12:06 Home Medications Medication Instructions Recorded Confirmed Last Taken Type Carvedilol [Coreg] 12.5 mg PO BID #30 tablet 01/01/17 Unknown Rx Insulin Regular, Human [Novolin R] 22 units SQ AC 30 Days vial 01/01/17 Unknown Rx levETIRAcetam [Keppra TAB] 1,000 mg PO BID #60 tablet 01/01/17 Unknown Rx Active Meds: Active Medications Carvedilol (Coreg) 12.5 mg PO BID [facility] Last Admin: 05/30/17 13:07 Dose: Not Given Dextrose (D50w (25gm) Syringe) 0 ml IV ONCE PRN PRN Reason: Hypoglycemia Hydrophilic Ointment (Vaseline Lip Therapy) 1 applic TP Q2HR PRN PRN Reason: Dry Lips Levetiracetam 1,000 mg/ (Dextrose) 110 mls @ 400 mls/hr IV Q12HR [facility] Last Admin: 05/30/17 10:08 Dose: Not Given Propofol (Diprivan 10 Mg/Ml) 1,000 mg in 100 mls @ 2.109 mls/hr IV TITR [facility]; Protocol Insulin Human Regular (Humulin R) 22 units SUB-Q AC [facility] Levetiracetam (Keppra) 1,000 mg PO BID [facility] Last Admin: 05/30/17 13:07 Dose: Not Given Multi-Ingred Cream/Lotion/Oil/Oint (Artificial Tears Ophth Oint) 1 applic OU Q4HR PRN PRN Reason: Dry Eye(s) Sodium Chloride (Nacl 0.9% 500 Ml) 1 ml IV DIRECT [facility] Review of Systems ROS unobtainable: due to endotracheal tube Physical Examination Vital signs: Vital Signs Pulse Resp 101 H 23 05/30/17 06:58 05/30/17 06:58 General appearance: no acute distress, other (unresponsive) Eyes: non-icteric ENT: oropharynx moist, other (orally intubated) Neck: supple, no JVD Effort: mildly labored Ascultation: Bilateral: rales, rhonchi Cardiovascular: regular rate and rhythm, other (tachycardia) Gastrointestinal: normoactive bowel sounds, soft, non-tender Integumentary: normal Extremities: no cyanosis, no edema unable to assess, other (unresponsive) Results - Laboratory Findings CBC and BMP: 05/30/17 08:59 05/30/17 08:59 Abnormal lab findings: Abnormal Labs 05/30/17 05/30/17 05/30/17 07:48 07:48 08:32 WBC 11.5 H MCH 27 L RDW 16.3 H Seg Neuts % (Manual) Lymphocytes % (Manual) Basophils % (Manual) Seg Neutrophils # Man Lymphocytes # (Manual) Basophils # (Manual) Sodium 133 L Chloride 89.9 L BUN 27 H Creatinine 2.0 H Glucose 741 H* POC Glucose > 500 H Alkaline Phosphatase Total Protein Albumin 05/30/17 05/30/17 08:59 08:59 WBC 14.5 H MCH RDW 16.0 H Seg Neuts % (Manual) 95.0 H Lymphocytes % (Manual) 2.0 L Basophils % (Manual) 2.0 H Seg Neutrophils # Man 13.8 H Lymphocytes # (Manual) 0.3 L Basophils # (Manual) 0.3 H Sodium 134 L Chloride 90.8 L BUN 28 H Creatinine 2.0 H Glucose 742 H* POC Glucose Alkaline Phosphatase 246 H Total Protein 5.6 L Albumin 2.9 L - Diagnostic Findings Chest x-ray: image reviewed (endotracheal tube initially was in the right mainstem bronchus since then has been pulled out. Bilateral diffuse interstitial changes suggestive of possible CHF or fluid overload) Assessment and Plan Assessment and plan: Acute respiratory failure Status post PE arrest during intubation. Seizure disorder Uncontrolled diabetes with nonketotic hyperosmolar state Hypertension Hyperkalemia Continue with mechanical ventilator. Check arterial blood gases make adjustment to mechanical ventilator as per blood gas results. Large volume IV fluids IV insulin drip. DVT and GI prophylaxis. Total critical care time 45 minutes
--- NOTE | 2017-05-30 15:57 | Consultation ---
History of Present Illness Consult date: 05/30/17 History of present illness: see my dicated nots from e[facility]ier seizures and acute encephaloaspthy plan w/u will ceck EEG / MRI and follow up agree with use of keppra Medications and Allergies Allergies Allergy/AdvReac Type Severity Reaction Status Date / Time lisinopril Allergy Angioedema Verified 12/30/16 12:06 Home Medications Medication Instructions Recorded Confirmed Last Taken Type Carvedilol [Coreg] 12.5 mg PO BID #30 tablet 01/01/17 Unknown Rx Insulin Regular, Human [Novolin R] 22 units SQ AC 30 Days vial 01/01/17 Unknown Rx levETIRAcetam [Keppra TAB] 1,000 mg PO BID #60 tablet 01/01/17 Unknown Rx Active Meds: Active Medications Carvedilol (Coreg) 12.5 mg PO BID [facility] Last Admin: 05/30/17 13:07 Dose: Not Given Dextrose (D50w (25gm) Syringe) 0 ml IV ONCE PRN PRN Reason: Hypoglycemia Hydrophilic Ointment (Vaseline Lip Therapy) 1 applic TP Q2HR PRN PRN Reason: Dry Lips Levetiracetam 1,000 mg/ (Dextrose) 110 mls @ 400 mls/hr IV Q12HR [facility] Last Admin: 05/30/17 10:08 Dose: Not Given Propofol (Diprivan 10 Mg/Ml) 1,000 mg in 100 mls @ 2.109 mls/hr IV TITR [facility]; Protocol Insulin Human Regular (Humulin R) 22 units SUB-Q AC [facility] Levetiracetam (Keppra) 1,000 mg PO BID [facility] Last Admin: 05/30/17 13:07 Dose: Not Given Multi-Ingred Cream/Lotion/Oil/Oint (Artificial Tears Ophth Oint) 1 applic OU Q4HR PRN PRN Reason: Dry Eye(s) Sodium Chloride (Nacl 0.9% 500 Ml) 1 ml IV DIRECT [facility] Physical Examination - Vital Signs Vital Signs: Vital Signs Pulse Resp 101 H 23 05/30/17 06:58 05/30/17 06:58 Results - Laboratory Findings CBC and BMP: 05/30/17 08:59 05/30/17 08:59 Abnormal Lab Findings: Abnormal Labs 03/17/18 03/17/18 03/17/18 07:48 07:48 08:32 WBC 11.5 H MCH 27 L RDW 16.3 H Seg Neuts % (Manual) Lymphocytes % (Manual) Basophils % (Manual) Seg Neutrophils # Man Lymphocytes # (Manual) Basophils # (Manual) Sodium 133 L Chloride 89.9 L BUN 27 H Creatinine 2.0 H Glucose 741 H* POC Glucose > 500 H Alkaline Phosphatase Total Protein Albumin 05/30/17 05/30/17 08:59 08:59 WBC 14.5 H MCH RDW 16.0 H Seg Neuts % (Manual) 95.0 H Lymphocytes % (Manual) 2.0 L Basophils % (Manual) 2.0 H Seg Neutrophils # Man 13.8 H Lymphocytes # (Manual) 0.3 L Basophils # (Manual) 0.3 H Sodium 134 L Chloride 90.8 L BUN 28 H Creatinine 2.0 H Glucose 742 H* POC Glucose Alkaline Phosphatase 246 H Total Protein 5.6 L Albumin 2.9 L
--- NOTE | 2017-05-30 16:09 | XRay Report ---
FINAL REPORT EXAM: XR ABDOMEN 1V AP HISTORY: NG tube comfirmation TECHNIQUE: KUB was performed. Comparison: Chest x-ray same day FINDINGS: There is a nasogastric tube present with the tip in the region of the mid gastric body. There is scattered air and stool in the colon in a nonspecific pattern. There are clips in right upper quadrant. There is left lower lobe consolidation and trace left pleural effusion. The imaged axial skeleton is unremarkable. IMPRESSION: Nasogastric tube tip projects in the region the mid gastric body. Left lower lobe consolidation and small effusion. Nonspecific bowel gas pattern. Cannot assess for free air on this single view exam. Previous cholecystectomy.
--- NOTE | 2017-05-30 16:10 | XRay Report ---
FINAL REPORT EXAM: XR CHEST 1V AP HISTORY: ETT placement TECHNIQUE: Frontal portable examination of the chest PRIORS: None FINDINGS: Confluent density in the left lung base is suggestive of moderate left pleural effusion. Nonspecific patchy opacity in the central chest bilaterally, as well as left upper lobe and lateral left midlung, may be edema, atelectasis, and/or pneumonia. No evidence of pneumothorax. No visible right pleural effusion. No acute displaced fracture. Cardiac silhouette size at upper limits of normal. Vascular markings are slightly prominent which may reflect mild congestion. IMPRESSION: Left lung base opacity suggestive of moderate left pleural effusion Bilateral lung opacities may be edema, atelectasis, and/or pneumonia Cardiac size at upper limits of normal with vascular markings suggesting mild vascular congestion Distal tip gastric tube is present in the left upper quadrant of the abdomen, in the expected region of the proximal stomach. There may be an endotracheal tube in place but the distal portion is obscured by the NG tube.
[2017-05-30 16:54] LABS: Calcium 8.5 mg/dL (8.4-10.2)
[2017-05-30] MEDS ORDERED: ADRENALIN ONE (17:20)
[2017-05-30] MEDS: PEPCID IV SCH (17:36)
[2017-05-30] MEDS: HumuLIN R SUB-Q SCH (17:55)
[2017-05-30] MEDS ORDERED: TYLENOL PO ONE (18:50)
[2017-05-30 19:40] LABS: Calcium 8.4 mg/dL (8.4-10.2)
[2017-05-30 20:24] LABS: Albumin 2.4 g/dL (3.9-5); Calcium 8.7 mg/dL (8.4-10.2)
[2017-05-30] MEDS ORDERED: TYLENOL FEEDTUBE PRN (21:30)
[2017-05-30 22:17] LABS: Calcium 8.6 mg/dL (8.4-10.2)
[2017-05-30] MEDS: DIPRIVAN 10 MG/ML 1,000 MG/100 ML BOTTLE IV SCH (22:44)
[2017-05-30] MEDS: NACL 0.9% 1000 ML 1,000 ML IV SCH (22:45)
[2017-05-30] MEDS ORDERED: KCL 10MEQ/100ML 10 MEQ/100 ML BAG IV ONE (22:52)
[2017-05-30 23:37] LABS: Calcium 8.4 mg/dL (8.4-10.2)
[2017-05-31] MEDS: KEPPRA 750 MG in NACL 0.9% 100 ML IV SCH ×3 (00:41→22:34)
[2017-05-31] MEDS ORDERED: KCL 10MEQ/100ML 10 MEQ/100 ML BAG IV ONE (00:47)
[2017-05-31] MEDS: LOVENOX SUB-Q SCH ×2 (00:49→09:48)
[2017-05-31] MEDS ORDERED: KCL 40 MEQ in NACL 0.9% 500 ML 500 ML IV ONE (01:00)
[2017-05-31 02:45] LABS: Calcium 8.3 mg/dL (8.4-10.2)
[2017-05-31 06:12] LABS: Calcium 8.3 mg/dL (8.4-10.2)
[2017-05-31 06:16] LABS: Albumin 1.8 g/dL (3.9-5); Calcium 8.2 mg/dL (8.4-10.2)
[2017-05-31] MEDS ORDERED: HumuLIN R SUB-Q ONE (06:30)
[2017-05-31] MEDS ORDERED: HumuLIN R SUB-Q SCH ×2 (06:45→22:00)
[2017-05-31] MEDS: COREG PO SCH ×2 (07:09→11:00)
[2017-05-31] MEDS: HumuLIN R SUB-Q SCH ×3 (08:21→17:44)
--- NOTE | 2017-05-31 09:08 | XRay Report ---
Single view chest: Compared to 05/30/17. History: Respiratory failure. Findings: Mild cardiomegaly. Trachea is midline. Stable support system. Mild pulmonary venous congestion without significant interval change. Impression: Pulmonary venous congestion without significant interval change. Probable early CHF.
[2017-05-31] MEDS: PEPCID IV SCH (09:46)
[2017-05-31] MEDS: NACL 0.9% 1000 ML 1,000 ML IV SCH (12:59)
--- NOTE | 2017-05-31 13:50 | Progress Note ---
Assessment and Plan Assessment and plan: 36-year-old -K[place] female was admitted to the floor for seizure episode, altered mental status, acute hypoxic respiratory failure, patient was intubated in the emergency department patient had PEA and resuscitated successfully. Acute hypoxic respiratory - intubated in the mechanical ventilation<96hrs Acute encephalopathy - treat underlying cause Seizure disorder - Patient is on IV Keppra HONK - was treated with insulin drip, resolved - Sliding scale and basal insulin Acute renal failure - Continue IV fluids Malnutrition - Patient is currently on on OG-tube feeding Hypertension - Continue home medications DVT prophylaxis Disposition - Pending ICU bed - Continue ICU care. History Interval history: Patient was seen and evaluated this morning, patient is on mechanical ventilation, sedated. Hospitalist Physical - Physical exam Narrative exam: Not in cardiopulmonary distress. The patient appeared well nourished and normally developed. Vital signs as documented. Head exam is unremarkable. No scleral icterus . Neck is without jugular venous distension, thyromegaly, or carotid bruits. Lungs are clear to auscultation. Cardiac exam reveals regular rate and Rhythm. First and second heart sounds normal. No murmurs, rubs or gallops. Abdominal exam reveals normal bowel sounds, no masses, no organomegaly and no aortic enlargement. Extremities are nonedematous and both femoral and pedal pulses are normal. 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 No focal weakness. - Constitutional Vitals: Temp Pulse Resp BP Pulse Ox 98.2 F 76 14 90/56 100 05/31/17 11:30 05/31/17 13:27 05/31/17 12:30 05/31/17 13:27 05/31/17 13:27 General appearance: Present: severe distress, well-nourished Results - Labs CBC & Chem 7: 05/30/17 08:59 05/31/17 05:45 Labs: Laboratory Last Values WBC 14.5 K/mm3 (4.5-11.0) H 05/30/17 08:59 RBC 4.22 M/mm3 (3.65-5.03) 05/30/17 08:59 Hgb 11.7 gm/dl (10.1-14.3) 05/30/17 08:59 Hct 34.3 % (30.3-42.9) 05/30/17 08:59 MCV 81 fl (79-97) 05/30/17 08:59 MCH 28 pg (28-32) 05/30/17 08:59 MCHC 34 % (30-34) 05/30/17 08:59 RDW 16.0 % (13.2-15.2) H 05/30/17 08:59 Plt Count 378 K/mm3 (140-440) 05/30/17 08:59 Add Manual Diff Complete 05/30/17 08:59 Total Counted 100 05/30/17 08:59 Seg Neutrophils % Financial Professional 05/30/17 08:59 Seg Neuts % (Manual) 95.0 % (40.0-70.0) H 05/30/17 08:59 Band Neutrophils % 0 % 05/30/17 08:59 Lymphocytes % (Manual) 2.0 % (13.4-35.0) L 05/30/17 08:59 Reactive Lymphs % (Man) 0 % 05/30/17 08:59 Monocytes % (Manual) 0 % (0.0-7.3) 05/30/17 08:59 Eosinophils % (Manual) 1.0 % (0.0-4.3) 05/30/17 08:59 Basophils % (Manual) 2.0 % (0.0-1.8) H 05/30/17 08:59 Metamyelocytes % 0 % 05/30/17 08:59 Myelocytes % 0 % 05/30/17 08:59 Promyelocytes % 0 % 05/30/17 08:59 Blast Cells % 0 % 05/30/17 08:59 Nucleated RBC % Not Reportable 05/30/17 08:59 Seg Neutrophils # Man 13.8 K/mm3 (1.8-7.7) H 05/30/17 08:59 Band Neutrophils # 0.0 K/mm3 05/30/17 08:59 Lymphocytes # (Manual) 0.3 K/mm3 (1.2-5.4) L 05/30/17 08:59 Abs React Lymphs (Man) 0.0 K/mm3 05/30/17 08:59 Monocytes # (Manual) 0.0 K/mm3 (0.0-0.8) 05/30/17 08:59 Eosinophils # (Manual) 0.1 K/mm3 (0.0-0.4) 05/30/17 08:59 Basophils # (Manual) 0.3 K/mm3 (0.0-0.1) H 05/30/17 08:59 Metamyelocytes # 0.0 K/mm3 05/30/17 08:59 Myelocytes # 0.0 K/mm3 05/30/17 08:59 Promyelocytes # 0.0 K/mm3 05/30/17 08:59 Blast Cells # 0.0 K/mm3 05/30/17 08:59 WBC Morphology Not Reportable 05/30/17 08:59 Hypersegmented Neuts Not Reportable 05/30/17 08:59 Hyposegmented Neuts Not Reportable 05/30/17 08:59 Hypogranular Neuts Not Reportable 05/30/17 08:59 Smudge Cells Not Reportable 05/30/17 08:59 Toxic Granulation Not Reportable 05/30/17 08:59 Toxic Vacuolation Not Reportable 05/30/17 08:59 Dohle Bodies Not Reportable 05/30/17 08:59 Pelger-Huet Anomaly Not Reportable 05/30/17 08:59 Don Rods Not Reportable 05/30/17 08:59 Platelet Estimate Appears normal 05/30/17 08:59 Clumped Platelets Not Reportable 05/30/17 08:59 Plt Clumps, EDTA Not Reportable 05/30/17 08:59 Large Platelets Not Reportable 05/30/17 08:59 Giant Platelets Not Reportable 05/30/17 08:59 Platelet Satelliting Not Reportable 05/30/17 08:59 Plt Morphology Comment Not Reportable 05/30/17 08:59 RBC Morphology Not Reportable 05/30/17 08:59 Dimorphic RBCs Not Reportable 05/30/17 08:59 Polychromasia Not Reportable 05/30/17 08:59 Hypochromasia Not Reportable 05/30/17 08:59 Poikilocytosis 1+ 05/30/17 08:59 Anisocytosis 1+ 05/30/17 08:59 Microcytosis Not Reportable 05/30/17 08:59 Macrocytosis Not Reportable 05/30/17 08:59 Spherocytes Not Reportable 05/30/17 08:59 Pappenheimer Bodies Not Reportable 05/30/17 08:59 Sickle Cells Not Reportable 05/30/17 08:59 Target Cells Not Reportable 05/30/17 08:59 Tear Drop Cells Not Reportable 05/30/17 08:59 Ovalocytes 1+ 05/30/17 08:59 Helmet Cells Not Reportable 05/30/17 08:59 [place] Bodies Not Reportable 05/30/17 08:59 [place] Rings Not Reportable 05/30/17 08:59 Cecy Cells Not Reportable 05/30/17 08:59 Bite Cells Not Reportable 05/30/17 08:59 Crenated Cell Not Reportable 05/30/17 08:59 Elliptocytes Few 05/30/17 08:59 Acanthocytes (Spur) Not Reportable 05/30/17 08:59 Rouleaux Not Reportable 05/30/17 08:59 Hemoglobin C Crystals Not Reportable 05/30/17 08:59 Schistocytes Not Reportable 05/30/17 08:59 Malaria parasites Not Reportable 05/30/17 08:59 Afdi Bodies Not Reportable 05/30/17 08:59 Hem Pathologist Commnt No 05/30/17 08:59 POC ABG pH 7.489 (7.35-7.45) H 05/31/17 05:27 POC ABG pCO2 36.3 (35-45) 05/31/17 05:27 POC ABG pO2 100 (80-105) 05/31/17 05:27 POC ABG HCO3 27.6 05/31/17 05:27 POC ABG Total CO2 29 05/31/17 05:27 POC ABG O2 Sat 98 05/31/17 05:27 POC ABG Base Excess 4 05/31/17 05:27 VBG pH 7.327 (7.320-7.420) 05/30/17 10:43 FiO2 40 % 05/31/17 05:27 Sodium 140 mmol/L (137-145) 05/31/17 05:45 Potassium 4.1 mmol/L (3.6-5.0) 05/31/17 05:45 Chloride 101.2 mmol/L (98-107) 05/31/17 05:45 Carbon Dioxide 24 mmol/L (22-30) 05/31/17 05:45 Anion Gap 19 mmol/L 05/31/17 05:45 BUN 30 mg/dL (7-17) H 05/31/17 05:45 Creatinine 2.6 mg/dL (0.7-1.2) H 05/31/17 05:45 Estimated GFR 25 ml/min 05/31/17 05:45 BUN/Creatinine Ratio 12 % 05/31/17 05:45 Glucose 271 mg/dL (65-100) H 05/31/17 05:45 POC Glucose 170 (70-105) H 05/31/17 12:18 Hemoglobin A1c 9.7 % (4-6) H 05/31/17 05:45 Calcium 8.2 mg/dL (8.4-10.2) L 05/31/17 05:45 Phosphorus 2.20 mg/dL (2.5-4.5) L D 05/30/17 19:31 Magnesium 1.40 mg/dL (1.7-2.3) L 05/30/17 19:31 Total Bilirubin 0.80 mg/dL (0.1-1.2) 05/31/17 05:45 AST 23 units/L (5-40) 05/31/17 05:45 ALT 21 units/L (7-56) 05/31/17 05:45 Alkaline Phosphatase 145 units/L (35-129) H 05/31/17 05:45 Total Protein 4.7 g/dL (6.3-8.2) L 05/31/17 05:45 Albumin 1.8 g/dL (3.9-5) L 05/31/17 05:45 Albumin/Globulin Ratio 0.6 % 05/31/17 05:45 Urine Color Yellow (Yellow) 05/30/17 15:04 Urine Turbidity Clear (Clear) 05/30/17 15:04 Urine pH 7.0 (5.0-7.0) 05/30/17 15:04 Ur Specific [place] 1.021 (1.003-1.030) 05/30/17 15:04 Urine Protein >500 mg/dL (Negative) 05/30/17 15:04 Urine Glucose (UA) >=500 mg/dL (Negative) 05/30/17 15:04 Urine Ketones Tr mg/dL (Negative) 05/30/17 15:04 Urine Blood Sm (Negative) 05/30/17 15:04 Urine Nitrite Neg (Negative) 05/30/17 15:04 Urine Bilirubin Neg (Negative) 05/30/17 15:04 Urine Urobilinogen < 2.0 mg/dL (<2.0) 05/30/17 15:04 Ur Leukocyte Esterase Neg (Negative) 05/30/17 15:04 Urine WBC (Auto) 2.0 /HPF (0.0-6.0) 05/30/17 15:04 Urine RBC (Auto) 5.0 /HPF (0.0-6.0) 05/30/17 15:04 Urine Bacteria (Auto) 1+ /HPF (Negative) 05/30/17 15:04 Urine Mucus Few /HPF 05/30/17 15:04 Urine Opiates Screen Presumptive negative 05/30/17 15:04 Urine Methadone Screen Presumptive negative 05/30/17 15:04 Ur Barbiturates Screen Presumptive negative 05/30/17 15:04 Ur Phencyclidine Scrn Presumptive negative 05/30/17 15:04 Ur Amphetamines Screen Presumptive negative 05/30/17 15:04 U Benzodiazepines Scrn Presumptive negative 05/30/17 15:04 Urine Cocaine Screen Presumptive negative 05/30/17 15:04 U Marijuana (THC) Screen Presumptive positive 05/30/17 15:04 Drugs of Abuse Note Disclamer 05/30/17 15:04
--- NOTE | 2017-05-31 13:51 | Progress Note ---
Assessment and Plan Assessment and plan: Acute respiratory failure Status post PEA arrest during intubation. Seizure disorder Uncontrolled diabetes with nonketotic hyperosmolar state, improving Hypertension Hyperkalemia Suspect anoxic encephalopathy Continue with mechanical ventilator. make adjustment to mechanical ventilator as per blood gas results. IV insulin drip. DVT and GI prophylaxis. Consider neurological evaluation. Total critical care time 31 minutes Subjective Date of service: 05/31/17 Interval history: Patient remained unresponsive, orally intubated on mechanical ventilator. Objective Vital Signs - 12hr 05/31/17 05/31/17 05/31/17 02:00 02:15 05:00 Temperature Pulse Rate 116 H 112 H 106 H Respiratory 16 18 Rate Blood Pressure 156/108 134/81 131/83 Blood Pressure [Right] O2 Sat by Pulse 100 100 100 Oximetry 05/31/17 05/31/17 05/31/17 07:20 07:55 08:30 Temperature 98 F Pulse Rate 104 H 104 H 102 H Respiratory 16 14 Rate Blood Pressure 139/88 Blood Pressure 161/89 126/86 [Right] O2 Sat by Pulse 100 100 100 Oximetry 05/31/17 05/31/17 05/31/17 09:30 10:30 11:30 Temperature 98 F 98.2 F Pulse Rate 102 H 99 H 99 H Respiratory 14 14 14 Rate Blood Pressure Blood Pressure 135/88 142/91 139/92 [Right] O2 Sat by Pulse 100 100 100 Oximetry 05/31/17 05/31/17 12:30 13:27 Temperature Pulse Rate 89 76 Respiratory 14 Rate Blood Pressure 90/56 Blood Pressure 112/73 [Right] O2 Sat by Pulse 100 100 Oximetry Constitutional: no acute distress, other (unresponsive) Eyes: non-icteric, other (chemosis of both eyes were noted.) ENT: oropharynx moist, other (orally intubated) Neck: supple, no JVD Effort: mildly labored Ascultation: Bilateral: rales, rhonchi Cardiovascular: regular rate and rhythm, other (tachycardia) Gastrointestinal: normoactive bowel sounds, soft, non-tender Integumentary: normal Extremities: no cyanosis, no edema Neurologic: unable to assess, other (unresponsive) CBC and BMP: 05/30/17 08:59 05/31/17 05:45 ABG, PT/INR, D-dimer: ABG POC ABG pH 7.489 (7.35-7.45) H 05/31/17 05:27 POC ABG pCO2 36.3 (35-45) 05/31/17 05:27 POC ABG pO2 100 (80-105) 05/31/17 05:27 POC ABG HCO3 27.6 05/31/17 05:27 POC ABG Total CO2 29 05/31/17 05:27 POC ABG O2 Sat 98 05/31/17 05:27 Abnormal lab findings: Abnormal Labs 05/30/17 05/30/17 05/30/17 07:48 07:48 08:32 WBC 11.5 H MCH 27 L RDW 16.3 H Seg Neuts % (Manual) Lymphocytes % (Manual) Basophils % (Manual) Seg Neutrophils # Man Lymphocytes # (Manual) Basophils # (Manual) POC ABG pH POC ABG pCO2 POC ABG pO2 Sodium 133 L Potassium Chloride 89.9 L Carbon Dioxide BUN 27 H Creatinine 2.0 H Glucose 741 H* POC Glucose > 500 H Hemoglobin A1c Calcium Phosphorus Magnesium AST Alkaline Phosphatase Total Protein Albumin 05/30/17 05/30/17 05/30/17 08:59 08:59 16:08 WBC 14.5 H MCH RDW 16.0 H Seg Neuts % (Manual) 95.0 H Lymphocytes % (Manual) 2.0 L Basophils % (Manual) 2.0 H Seg Neutrophils # Man 13.8 H Lymphocytes # (Manual) 0.3 L Basophils # (Manual) 0.3 H POC ABG pH POC ABG pCO2 POC ABG pO2 Sodium 134 L 135 L Potassium 3.2 L Chloride 90.8 L 93.6 L Carbon Dioxide BUN 28 H 30 H Creatinine 2.0 H 2.1 H Glucose 742 H* 567 H* POC Glucose Hemoglobin A1c Calcium Phosphorus Magnesium AST Alkaline Phosphatase 246 H Total Protein 5.6 L Albumin 2.9 L 05/30/17 05/30/17 05/30/17 16:35 17:55 18:59 WBC MCH RDW Seg Neuts % (Manual) Lymphocytes % (Manual) Basophils % (Manual) Seg Neutrophils # Man Lymphocytes # (Manual) Basophils # (Manual) POC ABG pH 7.544 H POC ABG pCO2 32.0 L POC ABG pO2 155 H Sodium Potassium 3.1 L Chloride 93.9 L Carbon Dioxide BUN 30 H Creatinine 2.0 H Glucose 561 H* POC Glucose 497 H Hemoglobin A1c Calcium Phosphorus Magnesium AST Alkaline Phosphatase Total Protein Albumin 05/30/17 05/30/17 05/30/17 19:31 19:31 21:38 WBC MCH RDW Seg Neuts % (Manual) Lymphocytes % (Manual) Basophils % (Manual) Seg Neutrophils # Man Lymphocytes # (Manual) Basophils # (Manual) POC ABG pH POC ABG pCO2 POC ABG pO2 Sodium 135 L Potassium 2.9 L* Chloride 93.8 L 95.4 L Carbon Dioxide 20 L BUN 29 H 30 H Creatinine 2.2 H 2.3 H Glucose 478 H 364 H POC Glucose Hemoglobin A1c Calcium Phosphorus 2.20 L D Magnesium 1.40 L AST 42 H Alkaline Phosphatase 177 H Total Protein 5.4 L Albumin 2.4 L 05/30/17 05/31/17 05/31/17 23:06 02:17 05:27 WBC MCH RDW Seg Neuts % (Manual) Lymphocytes % (Manual) Basophils % (Manual) Seg Neutrophils # Man Lymphocytes # (Manual) Basophils # (Manual) POC ABG pH 7.489 H POC ABG pCO2 POC ABG pO2 Sodium Potassium 3.2 L 3.5 L Chloride Carbon Dioxide BUN 30 H 31 H Creatinine 2.5 H 2.4 H Glucose 288 H 246 H POC Glucose Hemoglobin A1c Calcium 8.3 L Phosphorus Magnesium AST Alkaline Phosphatase Total Protein Albumin 05/31/17 05/31/17 05/31/17 05:45 05:45 05:45 WBC MCH RDW Seg Neuts % (Manual) Lymphocytes % (Manual) Basophils % (Manual) Seg Neutrophils # Man Lymphocytes # (Manual) Basophils # (Manual) POC ABG pH POC ABG pCO2 POC ABG pO2 Sodium Potassium Chloride Carbon Dioxide BUN 32 H 30 H Creatinine 2.5 H 2.6 H Glucose 266 H 271 H POC Glucose Hemoglobin A1c 9.7 H Calcium 8.3 L 8.2 L Phosphorus Magnesium AST Alkaline Phosphatase 145 H Total Protein 4.7 L Albumin 1.8 L 05/31/17 05/31/17 05/31/17 08:18 09:20 12:18 WBC MCH RDW Seg Neuts % (Manual) Lymphocytes % (Manual) Basophils % (Manual) Seg Neutrophils # Man Lymphocytes # (Manual) Basophils # (Manual) POC ABG pH POC ABG pCO2 POC ABG pO2 Sodium Potassium Chloride Carbon Dioxide BUN Creatinine Glucose POC Glucose 300 H 254 H 170 H Hemoglobin A1c Calcium Phosphorus Magnesium AST Alkaline Phosphatase Total Protein Albumin Chest x-ray: image reviewed (improving chest x-ray with decreased vascular congestion.)
[2017-05-31] MEDS ORDERED: D5/0.45NS 1,000 ML IV ONE (14:14)
[2017-05-31] MEDS: D50W (25GM) Syringe IV PRN ×2 (14:18→15:20)
[2017-05-31] MEDS: D5/0.45NS 1,000 ML IV SCH (14:22)
[2017-05-31 14:50] LABS: Calcium 7.6 mg/dL (8.4-10.2)
[2017-05-31] MEDS ORDERED: VANCOMYCIN PHARMACY TO DOSE IV SCH (15:00)
[2017-05-31] MEDS ORDERED: ZOSYN/NS 3.375GM/50ML 3.375 GM/50 ML BAG IV SCH (15:00)
[2017-05-31] MEDS ORDERED: VANCOMYCIN 1,500 MG in NACL 0.9% 500 ML 500 ML IV ONE (16:00)
[2017-05-31] MEDS: DIPRIVAN 10 MG/ML 1,000 MG/100 ML BOTTLE IV SCH (18:36)
[2017-05-31 20:24] LABS: Calcium 7.9 mg/dL (8.4-10.2)
[2017-05-31] MEDS: ZOSYN/NS 2.25 GM/50ML 2.25 GM/50 ML BAG IV SCH (22:30)
[2017-06-01] MEDS: COREG PO SCH ×3 (00:58→21:48)
[2017-06-01 04:28] LABS: Calcium 7.8 mg/dL (8.4-10.2)
[2017-06-01] MEDS: ZOSYN/NS 2.25 GM/50ML 2.25 GM/50 ML BAG IV SCH ×4 (04:30→21:47)
[2017-06-01] MEDS: HumuLIN R SUB-Q SCH (08:14)
[2017-06-01] MEDS: KEPPRA 750 MG in NACL 0.9% 100 ML IV SCH ×2 (09:43→21:48)
[2017-06-01] MEDS: LOVENOX SUB-Q SCH (09:43)
[2017-06-01] MEDS: PEPCID IV SCH (09:44)
[2017-06-01 10:03] LABS: Hematocrit 30.9 % (30.3-42.9); Mean Corpuscular HGB Conc 32 % (30-34); Mean Corpuscular Hemoglobin 27 pg (28-32); Mean Corpuscular Volume 84 fl (79-97); Platelet Count 339 K/mm3 (140-440); Red Blood Count 3.69 M/mm3 (3.65-5.03); Red Cell Distribution Width 17.1 % (13.2-15.2)
[2017-06-01] MEDS: D5/0.45NS 1,000 ML IV SCH (11:13)
[2017-06-01] MEDS: HumuLIN R 100 UNITS in NACL 0.9% 99 ML IV SCH ×2 (11:32→19:55)
[2017-06-01] MEDS: NACL 0.9% 1000 ML 1,000 ML IV SCH (14:15)
--- NOTE | 2017-06-01 14:57 | Progress Note ---
Assessment and Plan Assessment and plan: 36-year-old -[place] female was admitted to the floor for seizure episode, altered mental status, acute hypoxic respiratory failure, patient was intubated in the emergency department patient had PEA and resuscitated successfully. Acute hypoxic respiratory - intubated in the mechanical ventilation<96hrs Acute encephalopathy - treat underlying cause Seizure disorder - Patient is on IV Keppra HONK - Patient was on insulin drip yesterday and he become hypoglycemic and was discontinued insulin - Today his blood sugar went up to 400 and was put on insulin drip by commercial cleaner Patient has episodes of hypothermia and leukocytosis - Blood culture was taken and empirically on Vanc and Zosyn Acute renal failure - Continue IV fluids Malnutrition - Patient is currently on on OG-tube feeding Hypertension - Continue home medications DVT prophylaxis Disposition - Pending ICU bed - Continue ICU care. The high probability of a clinically significant, sudden or life threatening deterioration of the [respiratory, cardiovascular, neurologic, renal] system(s) required my full and direct attention, intervention and personal management. The aggregate critical care time was [35] minutes. This time is in addition to time spent performing reported procedures but includes the following: [x] Data Review and interpretation [x] Patient assessment and monitoring of vital signs [x] Documentation [x] Medication orders and management History Interval history: Patient was seen and evaluated this morning, patient is on mechanical ventilation, sedated. Hospitalist Physical - Physical exam Narrative exam: Not in cardiopulmonary distress. The patient appeared well nourished and normally developed. Vital signs as documented. Head exam is unremarkable. No scleral icterus . Neck is without jugular venous distension, thyromegaly, or carotid bruits. Lungs are clear to auscultation. Cardiac exam reveals regular rate and Rhythm. First and second heart sounds normal. No murmurs, rubs or gallops. Abdominal exam reveals normal bowel sounds, no masses, no organomegaly and no aortic enlargement. Extremities are nonedematous and both femoral and pedal pulses are normal. 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 - Constitutional Vitals: Temp Pulse Resp BP Pulse Ox 98.0 F 104 H 19 131/76 100 06/01/17 12:00 06/01/17 14:10 06/01/17 14:10 06/01/17 14:10 06/01/17 14:10 General appearance: Present: severe distress, well-nourished Results - Labs CBC & Chem 7: 06/01/17 09:15 06/01/17 04:06 Labs: Laboratory Last Values WBC 19.7 K/mm3 (4.5-11.0) H 06/01/17 09:15 RBC 3.69 M/mm3 (3.65-5.03) 06/01/17 09:15 Hgb 10.0 gm/dl (10.1-14.3) L 06/01/17 09:15 Hct 30.9 % (30.3-42.9) 06/01/17 09:15 MCV 84 fl (79-97) 06/01/17 09:15 MCH 27 pg (28-32) L 06/01/17 09:15 MCHC 32 % (30-34) 06/01/17 09:15 RDW 17.1 % (13.2-15.2) H 06/01/17 09:15 Plt Count 339 K/mm3 (140-440) 06/01/17 09:15 Lymph % (Auto) Senior Property Manager 06/01/17 09:15 [place] % (Auto) Senior Property Manager 06/01/17 09:15 Eos % (Auto) Senior Property Manager 06/01/17 09:15 Baso % (Auto) Senior Property Manager 06/01/17 09:15 Lymph # Senior Property Manager 06/01/17 09:15 [place] # Senior Property Manager 06/01/17 09:15 Eos # Senior Property Manager 06/01/17 09:15 Baso # Senior Property Manager 06/01/17 09:15 Add Manual Diff Complete 05/30/17 08:59 Total Counted 100 05/30/17 08:59 Seg Neutrophils % Senior Property Manager 06/01/17 09:15 Seg Neuts % (Manual) 95.0 % (40.0-70.0) H 05/30/17 08:59 Band Neutrophils % 0 % 05/30/17 08:59 Lymphocytes % (Manual) 2.0 % (13.4-35.0) L 05/30/17 08:59 Reactive Lymphs % (Man) 0 % 05/30/17 08:59 Monocytes % (Manual) 0 % (0.0-7.3) 05/30/17 08:59 Eosinophils % (Manual) 1.0 % (0.0-4.3) 05/30/17 08:59 Basophils % (Manual) 2.0 % (0.0-1.8) H 05/30/17 08:59 Metamyelocytes % 0 % 05/30/17 08:59 Myelocytes % 0 % 05/30/17 08:59 Promyelocytes % 0 % 05/30/17 08:59 Blast Cells % 0 % 05/30/17 08:59 Nucleated RBC % Not Reportable 05/30/17 08:59 Seg Neutrophils # Senior Property Manager 06/01/17 09:15 Seg Neutrophils # Man 13.8 K/mm3 (1.8-7.7) H 05/30/17 08:59 Band Neutrophils # 0.0 K/mm3 05/30/17 08:59 Lymphocytes # (Manual) 0.3 K/mm3 (1.2-5.4) L 05/30/17 08:59 Abs React Lymphs (Man) 0.0 K/mm3 05/30/17 08:59 Monocytes # (Manual) 0.0 K/mm3 (0.0-0.8) 05/30/17 08:59 Eosinophils # (Manual) 0.1 K/mm3 (0.0-0.4) 05/30/17 08:59 Basophils # (Manual) 0.3 K/mm3 (0.0-0.1) H 05/30/17 08:59 Metamyelocytes # 0.0 K/mm3 05/30/17 08:59 Myelocytes # 0.0 K/mm3 05/30/17 08:59 Promyelocytes # 0.0 K/mm3 05/30/17 08:59 Blast Cells # 0.0 K/mm3 05/30/17 08:59 WBC Morphology Not Reportable 05/30/17 08:59 Hypersegmented Neuts Not Reportable 05/30/17 08:59 Hyposegmented Neuts Not Reportable 05/30/17 08:59 Hypogranular Neuts Not Reportable 05/30/17 08:59 Smudge Cells Not Reportable 05/30/17 08:59 Toxic Granulation Not Reportable 05/30/17 08:59 Toxic Vacuolation Not Reportable 05/30/17 08:59 Dohle Bodies Not Reportable 05/30/17 08:59 Pelger-Huet Anomaly Not Reportable 05/30/17 08:59 Don Rods Not Reportable 05/30/17 08:59 Platelet Estimate Appears normal 05/30/17 08:59 Clumped Platelets Not Reportable 05/30/17 08:59 Plt Clumps, EDTA Not Reportable 05/30/17 08:59 Large Platelets Not Reportable 05/30/17 08:59 Giant Platelets Not Reportable 05/30/17 08:59 Platelet Satelliting Not Reportable 05/30/17 08:59 Plt Morphology Comment Not Reportable 05/30/17 08:59 RBC Morphology Not Reportable 05/30/17 08:59 Dimorphic RBCs Not Reportable 05/30/17 08:59 Polychromasia Not Reportable 05/30/17 08:59 Hypochromasia Not Reportable 05/30/17 08:59 Poikilocytosis 1+ 05/30/17 08:59 Anisocytosis 1+ 05/30/17 08:59 Microcytosis Not Reportable 05/30/17 08:59 Macrocytosis Not Reportable 05/30/17 08:59 Spherocytes Not Reportable 05/30/17 08:59 Pappenheimer Bodies Not Reportable 05/30/17 08:59 Sickle Cells Not Reportable 05/30/17 08:59 Target Cells Not Reportable 05/30/17 08:59 Tear Drop Cells Not Reportable 05/30/17 08:59 Ovalocytes 1+ 05/30/17 08:59 Helmet Cells Not Reportable 05/30/17 08:59 [place] Bodies Not Reportable 05/30/17 08:59 [place] Rings Not Reportable 05/30/17 08:59 [place] Cells Not Reportable 05/30/17 08:59 Bite Cells Not Reportable 05/30/17 08:59 Crenated Cell Not Reportable 05/30/17 08:59 Elliptocytes Few 05/30/17 08:59 Acanthocytes (Spur) Not Reportable 05/30/17 08:59 Rouleaux Not Reportable 05/30/17 08:59 Hemoglobin C Crystals Not Reportable 05/30/17 08:59 Schistocytes Not Reportable 05/30/17 08:59 Malaria parasites Not Reportable 05/30/17 08:59 [place] Bodies Not Reportable 05/30/17 08:59 Hem Pathologist Commnt No 05/30/17 08:59 POC ABG pH 7.464 (7.35-7.45) H 06/01/17 04:30 POC ABG pCO2 31.3 (35-45) L 06/01/17 04:30 POC ABG pO2 81 (80-105) 06/01/17 04:30 POC ABG HCO3 22.5 06/01/17 04:30 POC ABG Total CO2 23 06/01/17 04:30 POC ABG O2 Sat 97 06/01/17 04:30 POC ABG Base Excess -1 06/01/17 04:30 VBG pH 7.327 (7.320-7.420) 05/30/17 10:43 FiO2 35 % 06/01/17 04:30 Sodium 141 mmol/L (137-145) 06/01/17 04:06 Potassium 4.0 mmol/L (3.6-5.0) 06/01/17 04:06 Chloride 103.3 mmol/L (98-107) 06/01/17 04:06 Carbon Dioxide 19 mmol/L (22-30) L 06/01/17 04:06 Anion Gap 23 mmol/L 06/01/17 04:06 BUN 29 mg/dL (7-17) H 06/01/17 04:06 Creatinine 2.6 mg/dL (0.7-1.2) H 06/01/17 04:06 Estimated GFR 25 ml/min 06/01/17 04:06 BUN/Creatinine Ratio 11 % 06/01/17 04:06 Glucose 205 mg/dL (65-100) H 06/01/17 04:06 POC Glucose 434 (70-105) H 06/01/17 12:25 Hemoglobin A1c 9.7 % (4-6) H 05/31/17 05:45 Calcium 7.8 mg/dL (8.4-10.2) L 06/01/17 04:06 Phosphorus 2.20 mg/dL (2.5-4.5) L D 05/30/17 19:31 Magnesium 1.40 mg/dL (1.7-2.3) L 05/30/17 19:31 Total Bilirubin 0.80 mg/dL (0.1-1.2) 05/31/17 05:45 AST 23 units/L (5-40) 05/31/17 05:45 ALT 21 units/L (7-56) 05/31/17 05:45 Alkaline Phosphatase 145 units/L (35-129) H 05/31/17 05:45 Total Protein 4.7 g/dL (6.3-8.2) L 05/31/17 05:45 Albumin 1.8 g/dL (3.9-5) L 05/31/17 05:45 Albumin/Globulin Ratio 0.6 % 05/31/17 05:45 Urine Color Yellow (Yellow) 05/30/17 15:04 Urine Turbidity Clear (Clear) 05/30/17 15:04 Urine pH 7.0 (5.0-7.0) 05/30/17 15:04 Ur Specific [place] 1.021 (1.003-1.030) 05/30/17 15:04 Urine Protein >500 mg/dL (Negative) 05/30/17 15:04 Urine Glucose (UA) >=500 mg/dL (Negative) 05/30/17 15:04 Urine Ketones Tr mg/dL (Negative) 05/30/17 15:04 Urine Blood Sm (Negative) 05/30/17 15:04 Urine Nitrite Neg (Negative) 05/30/17 15:04 Urine Bilirubin Neg (Negative) 05/30/17 15:04 Urine Urobilinogen < 2.0 mg/dL (<2.0) 05/30/17 15:04 Ur Leukocyte Esterase Neg (Negative) 05/30/17 15:04 Urine WBC (Auto) 2.0 /HPF (0.0-6.0) 05/30/17 15:04 Urine RBC (Auto) 5.0 /HPF (0.0-6.0) 05/30/17 15:04 Urine Bacteria (Auto) 1+ /HPF (Negative) 05/30/17 15:04 Urine Mucus Few /HPF 05/30/17 15:04 Urine Opiates Screen Presumptive negative 05/30/17 15:04 Urine Methadone Screen Presumptive negative 05/30/17 15:04 Ur Barbiturates Screen Presumptive negative 05/30/17 15:04 Ur Phencyclidine Scrn Presumptive negative 05/30/17 15:04 Ur Amphetamines Screen Presumptive negative 05/30/17 15:04 U Benzodiazepines Scrn Presumptive negative 05/30/17 15:04 Urine Cocaine Screen Presumptive negative 05/30/17 15:04 U Marijuana (THC) Screen Presumptive positive 05/30/17 15:04 Drugs of Abuse Note Disclamer 05/30/17 15:04
[2017-06-01] MEDS ORDERED: VANCOMYCIN/NS 1 GM/250 ML 1 GM/250 ML BAG IV SCH (16:00)
--- NOTE | 2017-06-01 17:07 | Progress Note ---
Assessment and Plan Imp: 1. Seizures 2. HONK in DM2 patient 3. Metabolic encephalopathy 2/2 above, now ? anoxic enceph. as well 4. s/p CP arrest, ? etiology 5. JERRI 6. R/o Cardiomyopathy/CHF 7. SIRS, r/o sepsis Rec: 1. Cont. Keppra; f/u neurology recs; d/c all sedation 2. Cont. insulin drip for now given anion gap 3. Renal US; consider renal consult if worsening Cr 4. Continue ABX pending cultures 5. Echo 6. Mentation precludes extubation 7. DVT and GI PPx 8. Prognosis is guarded CCT 31 minutes; d/w mother at bedside, she understands/agrees Subjective Date of service: 06/01/17 Principal diagnosis: Acute respiratory failure Interval history: No events. Off Propofol as of this AM. Not responsive. Hyperglycemia persists, on insulin drip. Active Medications Acetaminophen (Tylenol) 650 mg FEEDTUBE Q6H PRN PRN Reason: Pain, Mild (1-3) Last Admin: 05/30/17 22:44 Dose: 650 mg Carvedilol (Coreg) 12.5 mg PO BID [facility] Last Admin: 06/01/17 09:42 Dose: 12.5 mg Dextrose (D50w (25gm) Syringe) 0 ml IV PRN PRN PRN Reason: Hypoglycemia Last Admin: 05/31/17 15:20 Dose: 50 ml Enoxaparin Sodium (Lovenox) 30 mg SUB-Q Q24HR [facility] Last Admin: 06/01/17 09:43 Dose: 30 mg Famotidine (Pepcid) 20 mg IV QDAY [facility] Last Admin: 06/01/17 09:44 Dose: 20 mg Hydrophilic Ointment (Vaseline Lip Therapy) 1 applic TP Q2HR PRN PRN Reason: Dry Lips Sodium Chloride (Nacl 0.9% 1000 Ml) 1,000 mls @ 150 mls/hr IV DIRECT [facility] Last Admin: 06/01/17 14:15 Dose: 150 mls/hr Insulin Human Regular 100 (units/ Sodium Chloride) 100 mls @ 1 mls/hr IV TITR [facility]; Protocol Last Titration: 06/01/17 14:47 Dose: 10 units/hr, 10 mls/hr Levetiracetam 750 mg/ Sodium (Chloride) 107.5 mls @ 400 mls/hr IV Q12HR [facility] Last Admin: 06/01/17 09:43 Dose: 400 mls/hr Dextrose/Sodium Chloride (D5/0.45ns) 1,000 mls @ 75 mls/hr IV DIRECT [facility] Last Infusion: 06/01/17 14:17 Dose: 0 mls/hr Piperacillin Sod/Tazobactam Sod (Zosyn/Ns 2.25 Gm/50ml) 2.25 gm in 50 mls @ 100 mls/hr IV Q6H [facility] Last Admin: 06/01/17 15:43 Dose: 100 mls/hr Vancomycin HCl (Vancomycin/Ns 1 Gm/250 Ml) 1 gm in 250 mls @ 167.007 mls/hr IV Q24H [facility] Multi-Ingred Cream/Lotion/Oil/Oint (Artificial Tears Ophth Oint) 1 applic OU Q4HR PRN PRN Reason: Dry Eye(s) Sodium Chloride (Nacl 0.9% 500 Ml) 1 ml IV DIRECT [facility] Vancomycin HCl (Vancomycin Pharmacy To Dose) 1 each IV PKCONSULT [facility]; Protocol Objective Vital Signs - 12hr 06/01/17 06/01/17 06/01/17 05:10 05:20 05:30 Temperature Pulse Rate 107 H 107 H 105 H Respiratory 16 16 15 Rate Blood Pressure 150/87 147/85 145/86 O2 Sat by Pulse 98 98 99 Oximetry 06/01/17 06/01/17 06/01/17 05:40 05:50 06:00 Temperature Pulse Rate 107 H 108 H 105 H Respiratory 15 14 22 Rate Blood Pressure 145/86 148/86 140/80 O2 Sat by Pulse 100 100 99 Oximetry 06/01/17 06/01/17 06/01/17 06:10 06:20 06:30 Temperature Pulse Rate 105 H 104 H 105 H Respiratory 15 16 16 Rate Blood Pressure 140/80 135/78 136/77 O2 Sat by Pulse 99 99 99 Oximetry 06/01/17 06/01/17 06/01/17 06:40 06:50 07:00 Temperature Pulse Rate 105 H 105 H 104 H Respiratory 15 16 15 Rate Blood Pressure 136/77 134/78 137/78 O2 Sat by Pulse 99 100 100 Oximetry 06/01/17 06/01/17 06/01/17 07:10 07:20 07:30 Temperature Pulse Rate 104 H 104 H 106 H Respiratory 16 15 16 Rate Blood Pressure 137/78 139/79 144/82 O2 Sat by Pulse 99 100 100 Oximetry 06/01/18 /19/18 03//18 07:40 07:50 08:00 Temperature 98.4 F Pulse Rate 107 H 105 H 107 H Respiratory 16 16 16 Rate Blood Pressure 144/82 152/88 152/88 O2 Sat by Pulse 100 100 100 Oximetry 06/01/18 /19/18 //18 08:10 08:20 08:30 Temperature Pulse Rate 105 H 107 H 106 H Respiratory 17 17 16 Rate Blood Pressure 152/88 156/93 154/90 O2 Sat by Pulse 100 100 100 Oximetry 06/01/18 /19/18 //18 08:40 08:44 08:50 Temperature Pulse Rate 108 H 109 H 112 H Respiratory 18 19 Rate Blood Pressure 154/90 156/91 156/91 O2 Sat by Pulse 100 100 100 Oximetry 06/01/18 /19/18 /18 09:00 09:10 09:20 Temperature Pulse Rate 106 H 106 H 108 H Respiratory 17 16 17 Rate Blood Pressure 142/84 142/84 159/94 O2 Sat by Pulse 100 100 100 Oximetry 06/01/18 /19/18 03/18 09:30 09:40 09:42 Temperature Pulse Rate 108 H 107 H 108 H Respiratory 16 17 Rate Blood Pressure 151/90 151/90 151/90 O2 Sat by Pulse 100 100 Oximetry 06/01/18 /19/18 03/19/18 09:50 10:00 10:10 Temperature Pulse Rate 107 H 108 H 108 H Respiratory 17 18 16 Rate Blood Pressure 152/88 147/83 147/83 O2 Sat by Pulse 100 100 100 Oximetry 06/01/18 03/19/18 03/19/18 10:20 10:30 10:40 Temperature Pulse Rate 105 H 105 H 102 H Respiratory 15 17 18 Rate Blood Pressure 141/83 140/86 140/86 O2 Sat by Pulse 100 100 100 Oximetry 06/01/18 /19/18 03/19/18 10:50 11:00 11:10 Temperature Pulse Rate 101 H 102 H 102 H Respiratory 15 16 15 Rate Blood Pressure 131/79 130/79 131/79 O2 Sat by Pulse 100 100 100 Oximetry 0306/01/17 06/01/17 11:20 11:30 11:40 Temperature Pulse Rate 101 H 100 H 99 H Respiratory 19 16 15 Rate Blood Pressure 130/78 134/77 130/79 O2 Sat by Pulse 100 100 100 Oximetry 06/01/17 06/01/17 06/01/17 11:50 12:00 12:10 Temperature 98.0 F Pulse Rate 99 H 100 H 100 H Respiratory 17 18 21 Rate Blood Pressure 129/78 131/78 131/78 O2 Sat by Pulse 100 100 99 Oximetry 06/01/17 06/01/17 06/01/17 12:20 12:30 12:40 Temperature Pulse Rate 102 H 102 H 102 H Respiratory 21 22 21 Rate Blood Pressure 130/73 136/75 136/75 O2 Sat by Pulse 100 100 100 Oximetry 06/01/17 06/01/17 06/01/17 12:50 12:54 13:00 Temperature Pulse Rate 104 H 103 H 105 H Respiratory 20 23 Rate Blood Pressure 136/75 136/75 127/72 O2 Sat by Pulse 100 100 100 Oximetry 06/01/17 06/01/17 06/01/17 13:10 13:20 13:30 Temperature Pulse Rate 104 H 107 H 106 H Respiratory 20 21 23 Rate Blood Pressure 127/72 128/80 133/74 O2 Sat by Pulse 100 100 100 Oximetry 06/01/17 06/01/17 06/01/17 13:40 13:50 14:00 Temperature Pulse Rate 105 H 105 H 108 H Respiratory 21 21 22 Rate Blood Pressure 133/74 130/73 131/76 O2 Sat by Pulse 100 100 100 Oximetry 06/01/17 06/01/17 06/01/17 14:10 14:20 14:30 Temperature Pulse Rate 104 H 105 H 107 H Respiratory 19 21 21 Rate Blood Pressure 131/76 132/73 137/74 O2 Sat by Pulse 100 100 100 Oximetry 06/01/1718 06/01/17 14:40 14:50 15:00 Temperature Pulse Rate 107 H 107 H 107 H Respiratory 21 20 22 Rate Blood Pressure 137/74 133/74 132/76 O2 Sat by Pulse 100 100 100 Oximetry 06/01/17 06/01/17 06/01/17 15:10 15:20 16:00 Temperature 98.3 F Pulse Rate 108 H 107 H 106 H Respiratory 22 22 Rate Blood Pressure 132/76 139/79 142/81 O2 Sat by Pulse 100 100 100 Oximetry Constitutional: other (unresponsive, critically ill on ventilator) Eyes: non-icteric, other (chemosis of both eyes were noted.) ENT: oropharynx moist, other (orally intubated) Neck: supple Effort: mildly labored Ascultation: Bilateral: other (coarse BS bilaterally) Cardiovascular: other (tachycardia, RR; no mrg) Gastrointestinal: normoactive bowel sounds, soft, non-tender Integumentary: normal Extremities: no cyanosis, no edema, pink and warm Neurologic: unable to assess, other (unresponsive) Psychiatric: other (not able to assess) CBC and BMP: 06/01/17 09:15 06/01/17 04:06 ABG, PT/INR, D-dimer: ABG POC ABG pH 7.464 (7.35-7.45) H 06/01/17 04:30 POC ABG pCO2 31.3 (35-45) L 06/01/17 04:30 POC ABG pO2 81 (80-105) 06/01/17 04:30 POC ABG HCO3 22.5 06/01/17 04:30 POC ABG Total CO2 23 06/01/17 04:30 POC ABG O2 Sat 97 06/01/17 04:30 Abnormal lab findings: Abnormal Labs 05/30/17 05/30/17 05/30/17 07:48 07:48 08:32 WBC 11.5 H Hgb MCH 27 L RDW 16.3 H Seg Neuts % (Manual) Lymphocytes % (Manual) Basophils % (Manual) Seg Neutrophils # Man Lymphocytes # (Manual) Basophils # (Manual) POC ABG pH POC ABG pCO2 POC ABG pO2 Sodium 133 L Potassium Chloride 89.9 L Carbon Dioxide BUN 27 H Creatinine 2.0 H Glucose 741 H* POC Glucose > 500 H Hemoglobin A1c Calcium Phosphorus Magnesium AST Alkaline Phosphatase Total Protein Albumin 05/30/17 05/30/17 05/30/17 08:59 08:59 16:08 WBC 14.5 H Hgb MCH RDW 16.0 H Seg Neuts % (Manual) 95.0 H Lymphocytes % (Manual) 2.0 L Basophils % (Manual) 2.0 H Seg Neutrophils # Man 13.8 H Lymphocytes # (Manual) 0.3 L Basophils # (Manual) 0.3 H POC ABG pH POC ABG pCO2 POC ABG pO2 Sodium 134 L 135 L Potassium 3.2 L Chloride 90.8 L 93.6 L Carbon Dioxide BUN 28 H 30 H Creatinine 2.0 H 2.1 H Glucose 742 H* 567 H* POC Glucose Hemoglobin A1c Calcium Phosphorus Magnesium AST Alkaline Phosphatase 246 H Total Protein 5.6 L Albumin 2.9 L 05/30/17 05/30/17 05/30/17 16:35 17:55 18:59 WBC Hgb MCH RDW Seg Neuts % (Manual) Lymphocytes % (Manual) Basophils % (Manual) Seg Neutrophils # Man Lymphocytes # (Manual) Basophils # (Manual) POC ABG pH 7.544 H POC ABG pCO2 32.0 L POC ABG pO2 155 H Sodium Potassium 3.1 L Chloride 93.9 L Carbon Dioxide BUN 30 H Creatinine 2.0 H Glucose 561 H* POC Glucose 497 H Hemoglobin A1c Calcium Phosphorus Magnesium AST Alkaline Phosphatase Total Protein Albumin 05/30/17 05/30/17 05/30/17 19:31 19:31 21:38 WBC Hgb MCH RDW Seg Neuts % (Manual) Lymphocytes % (Manual) Basophils % (Manual) Seg Neutrophils # Man Lymphocytes # (Manual) Basophils # (Manual) POC ABG pH POC ABG pCO2 POC ABG pO2 Sodium 135 L Potassium 2.9 L* Chloride 93.8 L 95.4 L Carbon Dioxide 20 L BUN 29 H 30 H Creatinine 2.2 H 2.3 H Glucose 478 H 364 H POC Glucose Hemoglobin A1c Calcium Phosphorus 2.20 L D Magnesium 1.40 L AST 42 H Alkaline Phosphatase 177 H Total Protein 5.4 L Albumin 2.4 L 05/30/17 05/31/17 05/31/17 23:06 02:17 05:27 WBC Hgb MCH RDW Seg Neuts % (Manual) Lymphocytes % (Manual) Basophils % (Manual) Seg Neutrophils # Man Lymphocytes # (Manual) Basophils # (Manual) POC ABG pH 7.489 H POC ABG pCO2 POC ABG pO2 Sodium Potassium 3.2 L 3.5 L Chloride Carbon Dioxide BUN 30 H 31 H Creatinine 2.5 H 2.4 H Glucose 288 H 246 H POC Glucose Hemoglobin A1c Calcium 8.3 L Phosphorus Magnesium AST Alkaline Phosphatase Total Protein Albumin 05/31/17 05/31/17 05/31/17 05:45 05:45 05:45 WBC Hgb MCH RDW Seg Neuts % (Manual) Lymphocytes % (Manual) Basophils % (Manual) Seg Neutrophils # Man Lymphocytes # (Manual) Basophils # (Manual) POC ABG pH POC ABG pCO2 POC ABG pO2 Sodium Potassium Chloride Carbon Dioxide BUN 32 H 30 H Creatinine 2.5 H 2.6 H Glucose 266 H 271 H POC Glucose Hemoglobin A1c 9.7 H Calcium 8.3 L 8.2 L Phosphorus Magnesium AST Alkaline Phosphatase 145 H Total Protein 4.7 L Albumin 1.8 L 05/31/17 05/31/17 05/31/17 08:18 09:20 12:18 WBC Hgb MCH RDW Seg Neuts % (Manual) Lymphocytes % (Manual) Basophils % (Manual) Seg Neutrophils # Man Lymphocytes # (Manual) Basophils # (Manual) POC ABG pH POC ABG pCO2 POC ABG pO2 Sodium Potassium Chloride Carbon Dioxide BUN Creatinine Glucose POC Glucose 300 H 254 H 170 H Hemoglobin A1c Calcium Phosphorus Magnesium AST Alkaline Phosphatase Total Protein Albumin 05/31/17 05/31/17 05/31/17 14:09 14:17 14:27 WBC Hgb MCH RDW Seg Neuts % (Manual) Lymphocytes % (Manual) Basophils % (Manual) Seg Neutrophils # Man Lymphocytes # (Manual) Basophils # (Manual) POC ABG pH POC ABG pCO2 POC ABG pO2 Sodium Potassium 3.4 L Chloride 107.1 H Carbon Dioxide BUN 30 H Creatinine 2.6 H Glucose 38 L* POC Glucose < 40 L 189 H Hemoglobin A1c Calcium 7.6 L Phosphorus Magnesium AST Alkaline Phosphatase Total Protein Albumin 05/31/17 05/31/17 05/31/17 15:01 16:01 17:19 WBC Hgb MCH RDW Seg Neuts % (Manual) Lymphocytes % (Manual) Basophils % (Manual) Seg Neutrophils # Man Lymphocytes # (Manual) Basophils # (Manual) POC ABG pH POC ABG pCO2 POC ABG pO2 Sodium Potassium Chloride Carbon Dioxide BUN Creatinine Glucose POC Glucose 130 H 165 H 131 H Hemoglobin A1c Calcium Phosphorus Magnesium AST Alkaline Phosphatase Total Protein Albumin 05/31/17 05/31/17 05/31/17 18:46 19:54 20:36 WBC Hgb MCH RDW Seg Neuts % (Manual) Lymphocytes % (Manual) Basophils % (Manual) Seg Neutrophils # Man Lymphocytes # (Manual) Basophils # (Manual) POC ABG pH POC ABG pCO2 POC ABG pO2 Sodium Potassium Chloride Carbon Dioxide BUN 29 H Creatinine 2.4 H Glucose 124 H POC Glucose 128 H 157 H Hemoglobin A1c Calcium 7.9 L Phosphorus Magnesium AST Alkaline Phosphatase Total Protein Albumin 05/31/17 06/01/17 06/01/17 21:41 03:22 04:06 WBC Hgb MCH RDW Seg Neuts % (Manual) Lymphocytes % (Manual) Basophils % (Manual) Seg Neutrophils # Man Lymphocytes # (Manual) Basophils # (Manual) POC ABG pH POC ABG pCO2 POC ABG pO2 Sodium Potassium Chloride Carbon Dioxide 19 L BUN 29 H Creatinine 2.6 H Glucose 205 H POC Glucose 158 H 251 H Hemoglobin A1c Calcium 7.8 L Phosphorus Magnesium AST Alkaline Phosphatase Total Protein Albumin 06/01/17 06/01/17 06/01/17 04:30 09:15 09:59 WBC 19.7 H Hgb 10.0 L MCH 27 L RDW 17.1 H Seg Neuts % (Manual) Lymphocytes % (Manual) Basophils % (Manual) Seg Neutrophils # Man Lymphocytes # (Manual) Basophils # (Manual) POC ABG pH 7.464 H POC ABG pCO2 31.3 L POC ABG pO2 Sodium Potassium Chloride Carbon Dioxide BUN Creatinine Glucose POC Glucose 330 H Hemoglobin A1c Calcium Phosphorus Magnesium AST Alkaline Phosphatase Total Protein Albumin 06/01/17 06/01/17 11:36 12:25 WBC Hgb MCH RDW Seg Neuts % (Manual) Lymphocytes % (Manual) Basophils % (Manual) Seg Neutrophils # Man Lymphocytes # (Manual) Basophils # (Manual) POC ABG pH POC ABG pCO2 POC ABG pO2 Sodium Potassium Chloride Carbon Dioxide BUN Creatinine Glucose POC Glucose 431 H 434 H Hemoglobin A1c Calcium Phosphorus Magnesium AST Alkaline Phosphatase Total Protein Albumin Chest x-ray: report reviewed, image reviewed (cardiomegaly w/ ? CHF)
[2017-06-01] MEDS ORDERED: VANCOMYCIN/0.45 NS 1 GM/250 ML 1 GM/250 ML BAG IV SCH (18:00)
[2017-06-01] MEDS ORDERED: BENADRYL IV ONE (23:36)
[2017-06-02] MEDS ORDERED: LASIX IV STA (00:05)
[2017-06-02] MEDS: NACL 0.9% 1000 ML 1,000 ML IV SCH ×2 (00:17→08:26)
--- NOTE | 2017-06-02 03:32 | Ultrasound Report ---
FINAL REPORT EXAM: US RENAL BILAT HISTORY: JERRI TECHNIQUE: Routine sonographic evaluation was obtained of the kidneys. FINDINGS: The right kidney is normal size contour and configuration measuring 10.1 cm x 5.8 cm x 4.2 cm. The cortical thickness is 1.4 cm. There is no evidence of shadowing stones or hydronephrosis. The left kidney is normal size and contour measuring 10.7 cm x 5.7 cm x 5.3 cm. The cortical thickness is 1.8 cm. There is no evidence of shadowing stones or hydronephrosis. Free fluid is noted in the abdomen. IMPRESSION: No evidence of renal stones or hydronephrosis. Ascites.
[2017-06-02] MEDS: ZOSYN/NS 2.25 GM/50ML 2.25 GM/50 ML BAG IV SCH ×2 (04:06→10:23)
[2017-06-02 04:43] LABS: Hematocrit 29.6 % (30.3-42.9); Hemoglobin 10.1 gm/dl (10.1-14.3); Mean Corpuscular HGB Conc 34 % (30-34); Mean Corpuscular Hemoglobin 28 pg (28-32); Mean Corpuscular Volume 82 fl (79-97); Platelet Count 370 K/mm3 (140-440); Red Blood Count 3.62 M/mm3 (3.65-5.03); Red Cell Distribution Width 16.5 % (13.2-15.2)
[2017-06-02 04:53] LABS: Albumin 1.7 g/dL (3.9-5); Calcium 7.5 mg/dL (8.4-10.2)
[2017-06-02 08:57] LABS: Basophils % (Manual) 0 % (0.0-1.8); Eosinophils % (Manual) 0 % (0.0-4.3); Total Cells Counted 100
[2017-06-02 08:58] LABS: Anisocytosis 1+; Macrocytosis Few; Platelet Estimate Consistent w Auto
[2017-06-02] MEDS ORDERED: MAGNESIUM SULFATE IV ONE (09:47)
[2017-06-02] MEDS: LOVENOX SUB-Q SCH (10:22)
[2017-06-02] MEDS: COREG PO SCH ×2 (10:22→22:02)
[2017-06-02] MEDS: KEPPRA 750 MG in NACL 0.9% 100 ML IV SCH ×2 (10:23→22:07)
[2017-06-02] MEDS: PEPCID IV SCH (10:23)
--- NOTE | 2017-06-02 10:25 | Consultation ---
History of Present Illness - Reason for Consult Consult date: 06/02/17 acute renal failure, chronic renal failure Requesting physician: OSCAR DELUCA - History of Present Illness This is a 36 yo AAF with past medical history of hypertension, Type 2 DM, insulin dependant, complicated by diabetic neuropathy, retinopathy and likely also nephropathy, CKD with baseline Cr around 1. 5-1.7mg/dl as per chart review , seizure disorder, who was initially admitted after sustaining 2 episodes of grand mal type seizures. In order to protect her airway patient was intubated. However during intubation patient sustained PEA arrest was resuscitated CPR was done for approximately 5 minutes. initial labs showed uncontrolled glucose >700 along with elevated BUN/Cr at 27/2.0, renal function continued to worsen with BUN/Cr rising to 36/2.8mg/dl today, for which renal consult is requested. As per patient's mother pt has been diagnosed with CKD in the past along with multiple complications from DM as above. no recent NSAIDs/IV contrast reported. Past History Past Medical History: diabetes, hypertension, seizures Social history: no significant social history Family history: no significant family history Medications and Allergies Allergies Allergy/AdvReac Type Severity Reaction Status Date / Time lisinopril Allergy Angioedema Verified 12/30/16 12:06 Home Medications Medication Instructions Recorded Confirmed Last Taken Type Insulin Regular, Human [Novolin R] 22 units SQ AC 30 Days vial 01/01/17 Unknown Rx Bumetanide [Bumetanide 2 mg tab] 2 mg PO DAILY 06/02/17 06/02/17 Unknown History Carvedilol [Coreg] 6.25 mg PO BID 06/02/17 06/02/17 Unknown History Dicyclomine [Bentyl] 1 cap PO BID PRN 06/02/17 06/02/17 Unknown History Furosemide [Lasix TAB] 40 mg PO QDAY 06/02/17 06/02/17 Unknown History HYDROcodone/APAP 5-325 1 - 2 tab PO Q6HR PRN 06/02/17 06/02/17 Unknown History Metoclopramide [Reglan TAB] 1 tab PO Q6HR 06/02/17 06/02/17 Unknown History Pantoprazole [Protonix] 40 mg PO QDAY 06/02/17 06/02/17 Unknown History Valsartan/Hydrochlorothiazide 1 tab PO DAILY 06/02/17 06/02/17 Unknown History [Valsartan-Hctz 160-12.5 mg Tab] Active Meds: Active Medications Acetaminophen (Tylenol) 650 mg FEEDTUBE Q6H PRN PRN Reason: Pain, Mild (1-3) Last Admin: 05/30/17 22:44 Dose: 650 mg Carvedilol (Coreg) 12.5 mg PO BID [facility] Last Admin: 06/02/17 10:22 Dose: 12.5 mg Dextrose (D50w (25gm) Syringe) 0 ml IV PRN PRN PRN Reason: Hypoglycemia Last Admin: 05/31/17 15:20 Dose: 50 ml Enoxaparin Sodium (Lovenox) 30 mg SUB-Q Q24HR [facility] Last Admin: 06/02/17 10:22 Dose: 30 mg Famotidine (Pepcid) 20 mg IV QDAY [facility] Last Admin: 06/02/17 10:23 Dose: 20 mg Hydrophilic Ointment (Vaseline Lip Therapy) 1 applic TP Q2HR PRN PRN Reason: Dry Lips Sodium Chloride (Nacl 0.9% 1000 Ml) 1,000 mls @ 150 mls/hr IV DIRECT [facility] Last Admin: 06/02/17 08:26 Dose: 150 mls/hr Insulin Human Regular 100 (units/ Sodium Chloride) 100 mls @ 1 mls/hr IV TITR [facility]; Protocol Last Titration: 06/02/17 06:20 Dose: 2 units/hr, 2 mls/hr Levetiracetam 750 mg/ Sodium (Chloride) 107.5 mls @ 400 mls/hr IV Q12HR [facility] Last Admin: 06/02/17 10:23 Dose: 400 mls/hr Dextrose/Sodium Chloride (D5/0.45ns) 1,000 mls @ 75 mls/hr IV DIRECT [facility] Last Infusion: 06/01/17 14:17 Dose: 0 mls/hr Piperacillin Sod/Tazobactam Sod (Zosyn/Ns 2.25 Gm/50ml) 2.25 gm in 50 mls @ 100 mls/hr IV Q6H [facility] Last Admin: 06/02/17 10:23 Dose: 100 mls/hr Magnesium Sulfate (Magnesium Sulfate 2gm/50ml) 2 gm in 50 mls @ 25 mls/hr IV ONCE ONE Stop: 06/02/17 12:59 Methylprednisolone Sodium Succinate (Solu-Medrol) 40 mg IV Q6HR [facility] Stop: 06/03/17 06:01 Last Admin: 06/02/17 05:14 Dose: 40 mg Multi-Ingred Cream/Lotion/Oil/Oint (Artificial Tears Ophth Oint) 1 applic OU Q4HR PRN PRN Reason: Dry Eye(s) Sodium Chloride (Nacl 0.9% 500 Ml) 1 ml IV DIRECT [facility] Vancomycin HCl (Vancomycin Pharmacy To Dose) 1 each IV PKCONSULT [facility]; Protocol Review of Systems ROS unobtainable: due to endotracheal tube, due to mental status Exam - Vital Signs Vital signs: Vital Signs Pulse Resp 101 H 23 05/30/17 06:58 05/30/17 06:58 - General Appearance General appearance: well-developed, well-nourished, appears stated age, sedated on ventilator, intubated EENT: ATNC, PERRL, mucous membranes moist Neck: Present: neck supple Respiratory: Decreased Breath Sounds Heart: regular, S1S2 Gastrointestinal: Present: normoactive bowel sounds, obese Integumentary: no rash, other (2+ edema b/l LE ) Neurologic: other (intubated, sedated ) Results - Lab Results 06/02/17 04:24 06/02/17 04:24 Most recent lab results Calcium 7.5 mg/dL (8.4-10.2) L 06/02/17 04:24 Phosphorus 4.60 mg/dL (2.5-4.5) H 06/02/17 04:24 Magnesium 1.50 mg/dL (1.7-2.3) L 06/02/17 04:24 Laboratory Tests 05/30/17 05/31/17 06/02/17 15:04 05:45 04:03 POC ABG pH POC ABG pCO2 POC ABG pO2 POC ABG HCO3 POC ABG Total CO2 POC ABG O2 Sat POC ABG Base Excess FiO2 POC Glucose 150 H Hemoglobin A1c 9.7 H Calcium Phosphorus Magnesium Total Bilirubin AST ALT Alkaline Phosphatase Total Protein Albumin Albumin/Globulin Ratio Urine Color Yellow Urine Turbidity Clear Urine pH 7.0 Ur Specific Reading 1.021 Urine Protein >500 Urine Glucose (UA) >=500 Urine Ketones Tr Urine Blood Sm Urine Nitrite Neg Urine Bilirubin Neg Urine Urobilinogen < 2.0 Ur Leukocyte Esterase Neg Urine WBC (Auto) 2.0 Urine RBC (Auto) 5.0 Urine Bacteria (Auto) 1+ Urine Mucus Few 06/02/17 06/02/17 04:24 05:01 POC ABG pH 7.517 H POC ABG pCO2 28.4 L POC ABG pO2 67 L POC ABG HCO3 23.1 POC ABG Total CO2 24 POC ABG O2 Sat 95 POC ABG Base Excess 0 FiO2 35 POC Glucose Hemoglobin A1c Calcium 7.5 L Phosphorus 4.60 H Magnesium 1.50 L Total Bilirubin 0.50 AST 23 ALT 14 Alkaline Phosphatase 132 H Total Protein 4.1 L Albumin 1.7 L Albumin/Globulin Ratio 0.7 Urine Color Urine Turbidity Urine pH Ur Specific Reading Urine Protein Urine Glucose (UA) Urine Ketones Urine Blood Urine Nitrite Urine Bilirubin Urine Urobilinogen Ur Leukocyte Esterase Urine WBC (Auto) Urine RBC (Auto) Urine Bacteria (Auto) Urine Mucus Assessment and Plan - Patient Problems (1) Acute renal failure with tubular necrosis Current Visit: Yes Status: Acute Plan to address problem: most likely ATN s/p PEA arrest superimposed on CKD/diabetic nephropathy. pt is becoming more oliguric, will give trial with IV lasix along with albumin support will check urine lytes and urine protein/cr ratio for quantification for proteinuria check CPK to rule out rhabdo in the setting of seizure d/o supportive care for JERRI/ATN avoid nephrotoxins, NSAIDs, IV contrast will monitor lytes/renal parameters and make further recommendations (2) Acute respiratory failure Current Visit: Yes Status: Acute Qualifiers: Respiratory failure complication: hypoxia Qualified Code(s): J96.01 - Acute respiratory failure with hypoxia Plan to address problem: vent management as per pulm/CCM (3) Hyperosmolar non-ketotic state in patient with type 2 diabetes mellitus Current Visit: Yes Status: Acute Plan to address problem: glucose control improved, management as per primary attending (4) Seizure Current Visit: Yes Status: Acute Plan to address problem: neuro following (5) Proteinuria Current Visit: Yes Status: Acute Plan to address problem: likely due to underlying diabetic nephropathy. check urine protein/cr ratio. hold ARAM-I/ARB for now given JERRI (6) Hypertension Current Visit: Yes Status: Acute Qualifiers: Hypertension type: essential hypertension Qualified Code(s): I10 - Essential (primary) hypertension Plan to address problem: monitor BP on current meds
[2017-06-02] MEDS ORDERED: ALBUTEIN IV SCH (11:00)
[2017-06-02] MEDS ORDERED: MAGNESIUM SULFATE 2GM/50ML 2 GM/50 ML BAG IV ONE (11:00)
[2017-06-02] MEDS: LASIX IV SCH ×2 (12:12→17:03)
[2017-06-02] MEDS ORDERED: D50W (25GM) Syringe IV PRN (13:24)
[2017-06-02] MEDS: HumuLIN R SUB-Q SCH ×3 (14:37→22:03)
[2017-06-02 14:42] LABS: Creatinine,Urine < 4.2 mg/dL (0.1-20.0)
--- NOTE | 2017-06-02 15:02 | Progress Note ---
Assessment and Plan Imp: 1. Seizures 2. HONK in DM2 patient 3. Metabolic encephalopathy 2/2 above, now ? anoxic enceph. as well 4. s/p CP arrest, ? etiology 5. JERRI 6. R/o Cardiomyopathy/CHF 7. SIRS, probably seizure related Rec: 1. Cont. Keppra; f/u neurology recs; d/c all sedation; MRI of brain without contrast 2. Hold insulin drip; start sliding scale 3. Renal consult 4. Cultures negative; stop ABX 5. Echo -> f/u 6. Mentation precludes extubation 7. DVT and GI PPx; start TFs 8. Prognosis is guarded CCT 31 minutes; d/w at bedside, he understands/agrees Subjective Date of service: 06/02/17 Principal diagnosis: Acute respiratory failure Interval history: No events. Off sedation. Sugars better. Unresponsive. Active Medications Acetaminophen (Tylenol) 650 mg FEEDTUBE Q6H PRN PRN Reason: Pain, Mild (1-3) Last Admin: 05/30/17 22:44 Dose: 650 mg Albumin Human (Albutein) 12.5 gm IV Q8H [facility] Stop: 06/03/17 03:01 Carvedilol (Coreg) 12.5 mg PO BID [facility] Last Admin: 06/02/17 10:22 Dose: 12.5 mg Dextrose (D50w (25gm) Syringe) 0 ml IV PRN PRN PRN Reason: Hypoglycemia Last Admin: 05/31/17 15:20 Dose: 50 ml Dextrose (D50w (25gm) Syringe) 50 ml IV PRN PRN PRN Reason: Hypoglycemia Enoxaparin Sodium (Lovenox) 30 mg SUB-Q Q24HR [facility] Last Admin: 06/02/17 10:22 Dose: 30 mg Famotidine (Pepcid) 20 mg IV QDAY [facility] Last Admin: 06/02/17 10:23 Dose: 20 mg Furosemide (Lasix) 40 mg IV 0600,1800 [facility] Last Admin: 06/02/17 12:12 Dose: 40 mg Hydrophilic Ointment (Vaseline Lip Therapy) 1 applic TP Q2HR PRN PRN Reason: Dry Lips Sodium Chloride (Nacl 0.9% 1000 Ml) 1,000 mls @ 150 mls/hr IV DIRECT [facility] Last Admin: 06/02/17 08:26 Dose: 150 mls/hr Insulin Human Regular 100 (units/ Sodium Chloride) 100 mls @ 1 mls/hr IV TITR [facility]; Protocol Stop: 06/03/17 06:00 Last Titration: 06/02/17 14:00 Dose: 0 units/hr, 0 mls/hr Levetiracetam 750 mg/ Sodium (Chloride) 107.5 mls @ 400 mls/hr IV Q12HR [facility] Last Admin: 06/02/17 10:23 Dose: 400 mls/hr Dextrose/Sodium Chloride (D5/0.45ns) 1,000 mls @ 75 mls/hr IV DIRECT [facility] Last Infusion: 06/01/17 14:17 Dose: 0 mls/hr Insulin Human Regular (Humulin R) 0 units SUB-Q Q4HR [facility]; Protocol Last Admin: 06/02/17 14:37 Dose: Not Given Methylprednisolone Sodium Succinate (Solu-Medrol) 40 mg IV Q6HR [facility] Stop: 06/03/17 06:01 Last Admin: 06/02/17 11:55 Dose: 40 mg Multi-Ingred Cream/Lotion/Oil/Oint (Artificial Tears Ophth Oint) 1 applic OU Q4HR PRN PRN Reason: Dry Eye(s) Sodium Chloride (Nacl 0.9% 500 Ml) 1 ml IV DIRECT [facility] Objective Vital Signs - 12hr 06/02/17 06/02/17 06/02/17 03:11 03:21 03:30 Temperature Pulse Rate 110 H 110 H 120 H Respiratory 18 18 17 Rate Blood Pressure 137/88 137/85 156/104 O2 Sat by Pulse 98 97 98 Oximetry 06/02/17 06/02/17 06/02/17 03:41 03:51 03:55 Temperature Pulse Rate 111 H 111 H 108 H Respiratory 19 20 Rate Blood Pressure 156/104 156/106 O2 Sat by Pulse 100 97 Oximetry 06/02/17 06/02/17 06/02/17 04:00 04:01 04:11 Temperature 97.6 F Pulse Rate 109 H 109 H 108 H Respiratory 19 18 Rate Blood Pressure 143/90 143/90 156/106 O2 Sat by Pulse 109 H 97 99 Oximetry 06/02/17 06/02/17 06/02/17 04:21 04:30 04:41 Temperature Pulse Rate 105 H 104 H 104 H Respiratory 18 18 17 Rate Blood Pressure 141/89 141/87 143/90 O2 Sat by Pulse 99 98 99 Oximetry 03/20/18 03/20/18 03/20/18 04:51 05:00 05:11 Temperature Pulse Rate 114 H 107 H 107 H Respiratory 19 17 18 Rate Blood Pressure 151/95 153/98 153/98 O2 Sat by Pulse 100 100 100 Oximetry 03/20/18 03/20/18 03/20/18 05:16 05:21 05:31 Temperature Pulse Rate 106 H 105 H Respiratory 18 17 18 Rate Blood Pressure 153/96 153/96 O2 Sat by Pulse 100 100 100 Oximetry 03/20/18 03/20/18 03/20/18 05:41 05:51 06:01 Temperature Pulse Rate 105 H 104 H 105 H Respiratory 20 17 17 Rate Blood Pressure 153/96 154/99 158/97 O2 Sat by Pulse 100 100 100 Oximetry 03/20/18 03/20/18 03/20/18 06:11 06:21 06:31 Temperature Pulse Rate 104 H 108 H 104 H Respiratory 19 18 15 Rate Blood Pressure 153/96 159/102 152/96 O2 Sat by Pulse 100 100 100 Oximetry 03/20/18 03/20/18 03/20/18 06:41 06:51 07:01 Temperature Pulse Rate 101 H 106 H 108 H Respiratory 16 17 16 Rate Blood Pressure 152/96 152/102 150/97 O2 Sat by Pulse 100 100 100 Oximetry 03/20/18 03/20/18 03/20/18 07:11 07:21 07:30 Temperature Pulse Rate 107 H 105 H 104 H Respiratory 17 17 15 Rate Blood Pressure 150/97 146/91 144/94 O2 Sat by Pulse 100 100 100 Oximetry 03/20/18 03/20/18 03/20/18 07:41 07:50 07:51 Temperature Pulse Rate 101 H 101 H 112 H Respiratory 15 15 Rate Blood Pressure 144/94 152/96 153/105 O2 Sat by Pulse 100 100 100 Oximetry 03/20/18 03/20/18 03/20/18 08:00 08:01 08:11 Temperature 98.8 F Pulse Rate 103 H 102 H Respiratory 16 16 Rate Blood Pressure 156/93 156/93 O2 Sat by Pulse 100 100 Oximetry 03/20/18 03/20/18 03/20/18 08:14 08:21 08:30 Temperature Pulse Rate 101 H 107 H Respiratory 16 15 Rate Blood Pressure 141/86 157/103 O2 Sat by Pulse 100 100 100 Oximetry 03/20/18 03/20/18 03/20/18 08:41 08:51 09:01 Temperature Pulse Rate 101 H 100 H 100 H Respiratory 17 16 15 Rate Blood Pressure 157/103 156/93 155/91 O2 Sat by Pulse 100 100 100 Oximetry 03/20/18 03/20/18 03/20/18 09:11 09:21 09:30 Temperature Pulse Rate 100 H 100 H 104 H Respiratory 14 14 17 Rate Blood Pressure 155/91 154/88 151/90 O2 Sat by Pulse 100 100 100 Oximetry /20/18 03/20/18 03/20/18 09:41 09:51 10:00 Temperature Pulse Rate 98 H 98 H 99 H Respiratory 16 15 17 Rate Blood Pressure 151/90 142/81 142/80 O2 Sat by Pulse 100 100 100 Oximetry 03/20/18 03/20/18 03/20/18 10:11 10:21 10:22 Temperature Pulse Rate 99 H 109 H 104 H Respiratory 16 23 Rate Blood Pressure 142/80 145/82 145/82 O2 Sat by Pulse 100 100 Oximetry 03/20/18 03/20/18 03/20/18 10:30 10:41 10:51 Temperature Pulse Rate 102 H 104 H 101 H Respiratory 17 18 23 Rate Blood Pressure 143/82 143/82 147/87 O2 Sat by Pulse 100 100 99 Oximetry /20/18 03/20/18 03/20/18 11:00 11:11 11:21 Temperature Pulse Rate 97 H 101 H 100 H Respiratory 16 15 25 H Rate Blood Pressure 141/81 141/81 143/84 O2 Sat by Pulse 98 98 99 Oximetry 03/20/18 03/20/18 03/20/18 11:30 11:41 11:51 Temperature Pulse Rate 103 H 103 H 101 H Respiratory 18 17 19 Rate Blood Pressure 150/88 150/88 156/98 O2 Sat by Pulse 100 99 99 Oximetry 03/20/18 03/20/18 03/20/18 12:00 12:06 12:11 Temperature 98.0 F Pulse Rate 101 H 94 H 102 H Respiratory 18 20 Rate Blood Pressure 147/85 140/83 147/85 O2 Sat by Pulse 99 99 99 Oximetry 03/20/18 03/20/18 03/20/18 12:21 12:30 12:41 Temperature Pulse Rate 98 H 100 H 94 H Respiratory 15 19 14 Rate Blood Pressure 156/98 140/83 140/83 O2 Sat by Pulse 100 100 99 Oximetry 06/02/17 06/02/17 06/02/17 12:51 13:00 13:11 Temperature Pulse Rate 93 H 102 H 95 H Respiratory 13 24 16 Rate Blood Pressure 137/81 145/87 145/87 O2 Sat by Pulse 99 100 99 Oximetry 06/02/17 06/02/17 13:21 13:30 Temperature Pulse Rate 93 H 96 H Respiratory 18 16 Rate Blood Pressure 138/82 142/84 O2 Sat by Pulse 98 99 Oximetry Constitutional: other (unresponsive, critically ill on ventilator) Eyes: non-icteric, other (chemosis of both eyes were noted.) ENT: oropharynx moist, other (orally intubated) Neck: supple Effort: mildly labored Ascultation: Bilateral: other (coarse BS bilaterally) Cardiovascular: other (tachycardia, RR; no mrg) Gastrointestinal: normoactive bowel sounds, soft, non-tender Integumentary: normal Extremities: no cyanosis, no edema, pink and warm Neurologic: unable to assess, other (unresponsive) Psychiatric: other (not able to assess) CBC and BMP: 06/02/17 04:24 06/02/17 04:24 ABG, PT/INR, D-dimer: ABG POC ABG pH 7.517 (7.35-7.45) H 06/02/17 05:01 POC ABG pCO2 28.4 (35-45) L 06/02/17 05:01 POC ABG pO2 67 (80-105) L 06/02/17 05:01 POC ABG HCO3 23.1 06/02/17 05:01 POC ABG Total CO2 24 06/02/17 05:01 POC ABG O2 Sat 95 06/02/17 05:01 Abnormal lab findings: Abnormal Labs 05/30/17 05/30/17 05/30/17 07:48 07:48 08:32 WBC 11.5 H RBC Hgb Hct MCH 27 L RDW 16.3 H Seg Neuts % (Manual) Lymphocytes % (Manual) Basophils % (Manual) Seg Neutrophils # Man Lymphocytes # (Manual) Basophils # (Manual) POC ABG pH POC ABG pCO2 POC ABG pO2 Sodium 133 L Potassium Chloride 89.9 L Carbon Dioxide BUN 27 H Creatinine 2.0 H Glucose 741 H* POC Glucose > 500 H Hemoglobin A1c Calcium Phosphorus Magnesium AST Alkaline Phosphatase Total Protein Albumin Urine Total Protein 05/30/17 05/30/17 05/30/17 08:59 08:59 16:08 WBC 14.5 H RBC Hgb Hct MCH RDW 16.0 H Seg Neuts % (Manual) 95.0 H Lymphocytes % (Manual) 2.0 L Basophils % (Manual) 2.0 H Seg Neutrophils # Man 13.8 H Lymphocytes # (Manual) 0.3 L Basophils # (Manual) 0.3 H POC ABG pH POC ABG pCO2 POC ABG pO2 Sodium 134 L 135 L Potassium 3.2 L Chloride 90.8 L 93.6 L Carbon Dioxide BUN 28 H 30 H Creatinine 2.0 H 2.1 H Glucose 742 H* 567 H* POC Glucose Hemoglobin A1c Calcium Phosphorus Magnesium AST Alkaline Phosphatase 246 H Total Protein 5.6 L Albumin 2.9 L Urine Total Protein 05/30/17 05/30/17 05/30/17 16:35 17:55 18:59 WBC RBC Hgb Hct MCH RDW Seg Neuts % (Manual) Lymphocytes % (Manual) Basophils % (Manual) Seg Neutrophils # Man Lymphocytes # (Manual) Basophils # (Manual) POC ABG pH 7.544 H POC ABG pCO2 32.0 L POC ABG pO2 155 H Sodium Potassium 3.1 L Chloride 93.9 L Carbon Dioxide BUN 30 H Creatinine 2.0 H Glucose 561 H* POC Glucose 497 H Hemoglobin A1c Calcium Phosphorus Magnesium AST Alkaline Phosphatase Total Protein Albumin Urine Total Protein 05/30/17 05/30/17 05/30/17 19:31 19:31 21:38 WBC RBC Hgb Hct MCH RDW Seg Neuts % (Manual) Lymphocytes % (Manual) Basophils % (Manual) Seg Neutrophils # Man Lymphocytes # (Manual) Basophils # (Manual) POC ABG pH POC ABG pCO2 POC ABG pO2 Sodium 135 L Potassium 2.9 L* Chloride 93.8 L 95.4 L Carbon Dioxide 20 L BUN 29 H 30 H Creatinine 2.2 H 2.3 H Glucose 478 H 364 H POC Glucose Hemoglobin A1c Calcium Phosphorus 2.20 L D Magnesium 1.40 L AST 42 H Alkaline Phosphatase 177 H Total Protein 5.4 L Albumin 2.4 L Urine Total Protein 05/30/17 05/31/17 05/31/17 23:06 02:17 05:27 WBC RBC Hgb Hct MCH RDW Seg Neuts % (Manual) Lymphocytes % (Manual) Basophils % (Manual) Seg Neutrophils # Man Lymphocytes # (Manual) Basophils # (Manual) POC ABG pH 7.489 H POC ABG pCO2 POC ABG pO2 Sodium Potassium 3.2 L 3.5 L Chloride Carbon Dioxide BUN 30 H 31 H Creatinine 2.5 H 2.4 H Glucose 288 H 246 H POC Glucose Hemoglobin A1c Calcium 8.3 L Phosphorus Magnesium AST Alkaline Phosphatase Total Protein Albumin Urine Total Protein 05/31/17 05/31/17 05/31/17 05:45 05:45 05:45 WBC RBC Hgb Hct MCH RDW Seg Neuts % (Manual) Lymphocytes % (Manual) Basophils % (Manual) Seg Neutrophils # Man Lymphocytes # (Manual) Basophils # (Manual) POC ABG pH POC ABG pCO2 POC ABG pO2 Sodium Potassium Chloride Carbon Dioxide BUN 32 H 30 H Creatinine 2.5 H 2.6 H Glucose 266 H 271 H POC Glucose Hemoglobin A1c 9.7 H Calcium 8.3 L 8.2 L Phosphorus Magnesium AST Alkaline Phosphatase 145 H Total Protein 4.7 L Albumin 1.8 L Urine Total Protein 05/31/17 05/31/17 05/31/17 08:18 09:20 12:18 WBC RBC Hgb Hct MCH RDW Seg Neuts % (Manual) Lymphocytes % (Manual) Basophils % (Manual) Seg Neutrophils # Man Lymphocytes # (Manual) Basophils # (Manual) POC ABG pH POC ABG pCO2 POC ABG pO2 Sodium Potassium Chloride Carbon Dioxide BUN Creatinine Glucose POC Glucose 300 H 254 H 170 H Hemoglobin A1c Calcium Phosphorus Magnesium AST Alkaline Phosphatase Total Protein Albumin Urine Total Protein 05/31/17 05/31/17 05/31/17 14:09 14:17 14:27 WBC RBC Hgb Hct MCH RDW Seg Neuts % (Manual) Lymphocytes % (Manual) Basophils % (Manual) Seg Neutrophils # Man Lymphocytes # (Manual) Basophils # (Manual) POC ABG pH POC ABG pCO2 POC ABG pO2 Sodium Potassium 3.4 L Chloride 107.1 H Carbon Dioxide BUN 30 H Creatinine 2.6 H Glucose 38 L* POC Glucose < 40 L 189 H Hemoglobin A1c Calcium 7.6 L Phosphorus Magnesium AST Alkaline Phosphatase Total Protein Albumin Urine Total Protein 05/31/17 05/31/17 05/31/17 15:01 16:01 17:19 WBC RBC Hgb Hct MCH RDW Seg Neuts % (Manual) Lymphocytes % (Manual) Basophils % (Manual) Seg Neutrophils # Man Lymphocytes # (Manual) Basophils # (Manual) POC ABG pH POC ABG pCO2 POC ABG pO2 Sodium Potassium Chloride Carbon Dioxide BUN Creatinine Glucose POC Glucose 130 H 165 H 131 H Hemoglobin A1c Calcium Phosphorus Magnesium AST Alkaline Phosphatase Total Protein Albumin Urine Total Protein 05/31/17 05/31/17 05/31/17 18:46 19:54 20:36 WBC RBC Hgb Hct MCH RDW Seg Neuts % (Manual) Lymphocytes % (Manual) Basophils % (Manual) Seg Neutrophils # Man Lymphocytes # (Manual) Basophils # (Manual) POC ABG pH POC ABG pCO2 POC ABG pO2 Sodium Potassium Chloride Carbon Dioxide BUN 29 H Creatinine 2.4 H Glucose 124 H POC Glucose 128 H 157 H Hemoglobin A1c Calcium 7.9 L Phosphorus Magnesium AST Alkaline Phosphatase Total Protein Albumin Urine Total Protein 05/31/17 06/01/17 06/01/17 21:41 03:22 04:06 WBC RBC Hgb Hct MCH RDW Seg Neuts % (Manual) Lymphocytes % (Manual) Basophils % (Manual) Seg Neutrophils # Man Lymphocytes # (Manual) Basophils # (Manual) POC ABG pH POC ABG pCO2 POC ABG pO2 Sodium Potassium Chloride Carbon Dioxide 19 L BUN 29 H Creatinine 2.6 H Glucose 205 H POC Glucose 158 H 251 H Hemoglobin A1c Calcium 7.8 L Phosphorus Magnesium AST Alkaline Phosphatase Total Protein Albumin Urine Total Protein 06/01/17 06/01/17 06/01/17 04:30 09:15 09:59 WBC 19.7 H RBC Hgb 10.0 L Hct MCH 27 L RDW 17.1 H Seg Neuts % (Manual) Lymphocytes % (Manual) Basophils % (Manual) Seg Neutrophils # Man Lymphocytes # (Manual) Basophils # (Manual) POC ABG pH 7.464 H POC ABG pCO2 31.3 L POC ABG pO2 Sodium Potassium Chloride Carbon Dioxide BUN Creatinine Glucose POC Glucose 330 H Hemoglobin A1c Calcium Phosphorus Magnesium AST Alkaline Phosphatase Total Protein Albumin Urine Total Protein 06/01/17 06/01/17 06/01/17 11:36 12:25 13:43 WBC RBC Hgb Hct MCH RDW Seg Neuts % (Manual) Lymphocytes % (Manual) Basophils % (Manual) Seg Neutrophils # Man Lymphocytes # (Manual) Basophils # (Manual) POC ABG pH POC ABG pCO2 POC ABG pO2 Sodium Potassium Chloride Carbon Dioxide BUN Creatinine Glucose POC Glucose 431 H 434 H 445 H Hemoglobin A1c Calcium Phosphorus Magnesium AST Alkaline Phosphatase Total Protein Albumin Urine Total Protein 06/01/17 06/01/17 06/01/17 14:26 15:46 16:03 WBC RBC Hgb Hct MCH RDW Seg Neuts % (Manual) Lymphocytes % (Manual) Basophils % (Manual) Seg Neutrophils # Man Lymphocytes # (Manual) Basophils # (Manual) POC ABG pH POC ABG pCO2 POC ABG pO2 Sodium Potassium Chloride Carbon Dioxide BUN Creatinine Glucose POC Glucose 310 H 292 H 244 H Hemoglobin A1c Calcium Phosphorus Magnesium AST Alkaline Phosphatase Total Protein Albumin Urine Total Protein 06/01/17 06/01/17 06/01/17 16:59 17:49 19:05 WBC RBC Hgb Hct MCH RDW Seg Neuts % (Manual) Lymphocytes % (Manual) Basophils % (Manual) Seg Neutrophils # Man Lymphocytes # (Manual) Basophils # (Manual) POC ABG pH POC ABG pCO2 POC ABG pO2 Sodium Potassium Chloride Carbon Dioxide BUN Creatinine Glucose POC Glucose 260 H 203 H 156 H Hemoglobin A1c Calcium Phosphorus Magnesium AST Alkaline Phosphatase Total Protein Albumin Urine Total Protein 06/02/17 06/02/17 06/02/17 00:09 01:06 02:31 WBC RBC Hgb Hct MCH RDW Seg Neuts % (Manual) Lymphocytes % (Manual) Basophils % (Manual) Seg Neutrophils # Man Lymphocytes # (Manual) Basophils # (Manual) POC ABG pH POC ABG pCO2 POC ABG pO2 Sodium Potassium Chloride Carbon Dioxide BUN Creatinine Glucose POC Glucose 137 H 146 H 182 H Hemoglobin A1c Calcium Phosphorus Magnesium AST Alkaline Phosphatase Total Protein Albumin Urine Total Protein 06/02/17 06/02/17 06/02/17 04:03 04:24 04:24 WBC 21.0 H RBC 3.62 L Hgb Hct 29.6 L MCH RDW 16.5 H Seg Neuts % (Manual) 98.0 H Lymphocytes % (Manual) 1.0 L Basophils % (Manual) Seg Neutrophils # Man 20.6 H Lymphocytes # (Manual) 0.2 L Basophils # (Manual) POC ABG pH POC ABG pCO2 POC ABG pO2 Sodium Potassium Chloride Carbon Dioxide 20 L BUN 36 H Creatinine 2.8 H Glucose 137 H POC Glucose 150 H Hemoglobin A1c Calcium 7.5 L Phosphorus 4.60 H Magnesium 1.50 L AST Alkaline Phosphatase 132 H Total Protein 4.1 L Albumin 1.7 L Urine Total Protein 06/02/17 06/02/17 06/02/17 05:01 05:14 06:20 WBC RBC Hgb Hct MCH RDW Seg Neuts % (Manual) Lymphocytes % (Manual) Basophils % (Manual) Seg Neutrophils # Man Lymphocytes # (Manual) Basophils # (Manual) POC ABG pH 7.517 H POC ABG pCO2 28.4 L POC ABG pO2 67 L Sodium Potassium Chloride Carbon Dioxide BUN Creatinine Glucose POC Glucose 137 H 163 H Hemoglobin A1c Calcium Phosphorus Magnesium AST Alkaline Phosphatase Total Protein Albumin Urine Total Protein 06/02/17 10:18 WBC RBC Hgb Hct MCH RDW Seg Neuts % (Manual) Lymphocytes % (Manual) Basophils % (Manual) Seg Neutrophils # Man Lymphocytes # (Manual) Basophils # (Manual) POC ABG pH POC ABG pCO2 POC ABG pO2 Sodium Potassium Chloride Carbon Dioxide BUN Creatinine Glucose POC Glucose Hemoglobin A1c Calcium Phosphorus Magnesium AST Alkaline Phosphatase Total Protein Albumin Urine Total Protein < 4 L Chest x-ray: report reviewed, image reviewed
[2017-06-02] MEDS ORDERED: PANCREAZE DR 10,500 UNIT FEEDTUBE PRN (15:03)
[2017-06-02] MEDS ORDERED: SODIUM BICARBONATE FEEDTUBE PRN (15:03)
[2017-06-02] MEDS ORDERED: SIMPLE SYRUP FEEDTUBE PRN ×2 (15:03)
--- NOTE | 2017-06-02 16:28 | Progress Note ---
Assessment and Plan Assessment and plan: 36-year-old -[place] female was admitted to the floor for seizure episode, altered mental status, acute hypoxic respiratory failure, patient was intubated in the emergency department patient had PEA and resuscitated successfully. Acute hypoxic respiratory - intubated in the mechanical ventilation<96hrs Acute encephalopathy - treat underlying cause Seizure disorder - Patient is on IV Keppra -Neurology following -Await MRI HONK - on Insulin drip - Today his blood sugar went up to 400 and was put on insulin drip by literacy coordinator Patient has episodes of hypothermia and leukocytosis - Blood culture was taken and empirically on Vanc and Zosyn - Further rise in Leukocytosis likely secondary to Steroids Acute renal failure - Continue IV fluids Malnutrition - Patient is currently on on OG-tube feeding Hypertension - Continue home medications ?Cardiac arrest DVT prophylaxis Disposition - Continue ICU care. Discussed with family The high probability of a clinically significant, sudden or life threatening deterioration of the [respiratory, cardiovascular, neurologic, renal] system(s) required my full and direct attention, intervention and personal management. The aggregate critical care time was [35] minutes. This time is in addition to time spent performing reported procedures but includes the following: [x] Data Review and interpretation [x] Patient assessment and monitoring of vital signs [x] Documentation [x] Medication orders and management History Interval history: Patient seen and examined remains unresponsive on mechanical ventilation. Off sedation. Family at bedside. Hospitalist Physical - Physical exam Narrative exam: Not in cardiopulmonary distress. The patient appeared well nourished and normally developed. Vital signs as documented. HEENT: Swelling of orbital, oral and facial soft tissue structures. ETT is in place No scleral icterus . Neck is without jugular venous distension, thyromegaly, or carotid bruits. Lungs are clear to auscultation. Cardiac exam reveals regular rate and Rhythm. First and second heart sounds normal. No murmurs, rubs or gallops. Abdominal exam reveals normal bowel sounds, no masses, no organomegaly and no aortic enlargement. Extremities are nonedematous and both femoral and pedal pulses are normal. - Constitutional Vitals: Temp Pulse Resp BP Pulse Ox 97.7 F 96 H 16 142/84 99 06/02/17 16:00 06/02/17 15:55 06/02/17 13:30 06/02/17 15:55 06/02/17 15:55 General appearance: Present: severe distress, well-nourished Results - Labs CBC & Chem 7: 06/02/17 04:24 06/02/17 04:24 Labs: Laboratory Last Values WBC 21.0 K/mm3 (4.5-11.0) H 06/02/17 04:24 RBC 3.62 M/mm3 (3.65-5.03) L 06/02/17 04:24 Hgb 10.1 gm/dl (10.1-14.3) 06/02/17 04:24 Hct 29.6 % (30.3-42.9) L 06/02/17 04:24 MCV 82 fl (79-97) 06/02/17 04:24 MCH 28 pg (28-32) 06/02/17 04:24 MCHC 34 % (30-34) 06/02/17 04:24 RDW 16.5 % (13.2-15.2) H 06/02/17 04:24 Plt Count 370 K/mm3 (140-440) 06/02/17 04:24 Lymph % (Auto) Cut Off Saw [employer]ender [employer] 06/01/17 09:15 [place] % (Auto) Cut Off [employer]ender [employer] 06/01/17 09:15 Eos % (Auto) Cut Off [employer] 06/01/17 09:15 Baso % (Auto) Cut Off [employer]ender [employer] 06/01/17 09:15 Lymph # Cut Off [employer]ender [employer] 06/01/17 09:15 [place] # Cut Off Saw Tender Metal 06/01/17 09:15 Eos # Cut Off Saw Tender Metal 06/01/17 09:15 Baso # Cut Off [employer] Tender Metal 06/01/17 09:15 Add Manual Diff Complete 06/02/17 04:24 Total Counted 100 06/02/17 04:24 Seg Neutrophils % Cut Off [employer]ender [employer] 06/02/17 04:24 Seg Neuts % (Manual) 98.0 % (40.0-70.0) H 06/02/17 04:24 Band Neutrophils % 0 % 06/02/17 04:24 Lymphocytes % (Manual) 1.0 % (13.4-35.0) L 06/02/17 04:24 Reactive Lymphs % (Man) 0 % 06/02/17 04:24 Monocytes % (Manual) 1.0 % (0.0-7.3) 06/02/17 04:24 Eosinophils % (Manual) 0 % (0.0-4.3) 06/02/17 04:24 Basophils % (Manual) 0 % (0.0-1.8) 06/02/17 04:24 Metamyelocytes % 0 % 06/02/17 04:24 Myelocytes % 0 % 06/02/17 04:24 Promyelocytes % 0 % 06/02/17 04:24 Blast Cells % 0 % 06/02/17 04:24 Nucleated RBC % Not Reportable 06/02/17 04:24 Seg Neutrophils # Cut Off Saw Tender Metal 06/01/17 09:15 Seg Neutrophils # Man 20.6 K/mm3 (1.8-7.7) H 06/02/17 04:24 Band Neutrophils # 0.0 K/mm3 06/02/17 04:24 Lymphocytes # (Manual) 0.2 K/mm3 (1.2-5.4) L 06/02/17 04:24 Abs React Lymphs (Man) 0.0 K/mm3 06/02/17 04:24 Monocytes # (Manual) 0.2 K/mm3 (0.0-0.8) 06/02/17 04:24 Eosinophils # (Manual) 0.0 K/mm3 (0.0-0.4) 06/02/17 04:24 Basophils # (Manual) 0.0 K/mm3 (0.0-0.1) 06/02/17 04:24 Metamyelocytes # 0.0 K/mm3 06/02/17 04:24 Myelocytes # 0.0 K/mm3 06/02/17 04:24 Promyelocytes # 0.0 K/mm3 06/02/17 04:24 Blast Cells # 0.0 K/mm3 06/02/17 04:24 WBC Morphology Not Reportable 06/02/17 04:24 Hypersegmented Neuts Not Reportable 06/02/17 04:24 Hyposegmented Neuts Not Reportable 06/02/17 04:24 Hypogranular Neuts Not Reportable 06/02/17 04:24 Smudge Cells Not Reportable 06/02/17 04:24 Toxic Granulation Not Reportable 06/02/17 04:24 Toxic Vacuolation Not Reportable 06/02/17 04:24 Dohle Bodies Not Reportable 06/02/17 04:24 Pelger-Huet Anomaly Not Reportable 06/02/17 04:24 Don Rods Not Reportable 06/02/17 04:24 Platelet Estimate Consistent w auto 06/02/17 04:24 Clumped Platelets Not Reportable 06/02/17 04:24 Plt Clumps, EDTA Not Reportable 06/02/17 04:24 Large Platelets Not Reportable 06/02/17 04:24 Giant Platelets Not Reportable 06/02/17 04:24 Platelet Satelliting Not Reportable 06/02/17 04:24 Plt Morphology Comment Not Reportable 06/02/17 04:24 RBC Morphology Not Reportable 06/02/17 04:24 Dimorphic RBCs Not Reportable 06/02/17 04:24 Polychromasia Not Reportable 06/02/17 04:24 Hypochromasia Not Reportable 06/02/17 04:24 Poikilocytosis Not Reportable 06/02/17 04:24 Anisocytosis 1+ 06/02/17 04:24 Microcytosis Few 06/02/17 04:24 Macrocytosis Few 06/02/17 04:24 Spherocytes Not Reportable 06/02/17 04:24 Pappenheimer Bodies Not Reportable 06/02/17 04:24 Sickle Cells Not Reportable 06/02/17 04:24 Target Cells Not Reportable 06/02/17 04:24 Tear Drop Cells Not Reportable 06/02/17 04:24 Ovalocytes Not Reportable 06/02/17 04:24 Helmet Cells Not Reportable 06/02/17 04:24 Wade-[place]rop Bodies Not Reportable 06/02/17 04:24 [place] Rings Not Reportable 06/02/17 04:24 [place] Cells Not Reportable 06/02/17 04:24 Bite Cells Not Reportable 06/02/17 04:24 Crenated Cell Not Reportable 06/02/17 04:24 Elliptocytes Not Reportable 06/02/17 04:24 Acanthocytes (Spur) Not Reportable 06/02/17 04:24 Rouleaux Not Reportable 06/02/17 04:24 Hemoglobin C Crystals Not Reportable 06/02/17 04:24 Schistocytes Not Reportable 06/02/17 04:24 Malaria parasites Not Reportable 06/02/17 04:24 Fadi Bodies Not Reportable 06/02/17 04:24 Hem Pathologist Commnt No 06/02/17 04:24 POC ABG pH 7.517 (7.35-7.45) H 06/02/17 05:01 POC ABG pCO2 28.4 (35-45) L 06/02/17 05:01 POC ABG pO2 67 (80-105) L 06/02/17 05:01 POC ABG HCO3 23.1 06/02/17 05:01 POC ABG Total CO2 24 06/02/17 05:01 POC ABG O2 Sat 95 06/02/17 05:01 POC ABG Base Excess 0 06/02/17 05:01 VBG pH 7.327 (7.320-7.420) 05/30/17 10:43 FiO2 35 % 06/02/17 05:01 Sodium 142 mmol/L (137-145) 06/02/17 04:24 Potassium 4.2 mmol/L (3.6-5.0) 06/02/17 04:24 Chloride 105.7 mmol/L (98-107) 06/02/17 04:24 Carbon Dioxide 20 mmol/L (22-30) L 06/02/17 04:24 Anion Gap 21 mmol/L 06/02/17 04:24 BUN 36 mg/dL (7-17) H 06/02/17 04:24 Creatinine 2.8 mg/dL (0.7-1.2) H 06/02/17 04:24 Estimated GFR 23 ml/min 06/02/17 04:24 BUN/Creatinine Ratio 13 % 06/02/17 04:24 Glucose 137 mg/dL (65-100) H 06/02/17 04:24 POC Glucose 163 (70-105) H 06/02/17 06:20 Hemoglobin A1c 9.7 % (4-6) H 05/31/17 05:45 Calcium 7.5 mg/dL (8.4-10.2) L 06/02/17 04:24 Phosphorus 4.60 mg/dL (2.5-4.5) H 06/02/17 04:24 Magnesium 1.50 mg/dL (1.7-2.3) L 06/02/17 04:24 Total Bilirubin 0.50 mg/dL (0.1-1.2) 06/02/17 04:24 AST 23 units/L (5-40) 06/02/17 04:24 ALT 14 units/L (7-56) 06/02/17 04:24 Alkaline Phosphatase 132 units/L (35-129) H 06/02/17 04:24 Total Protein 4.1 g/dL (6.3-8.2) L 06/02/17 04:24 Albumin 1.7 g/dL (3.9-5) L 06/02/17 04:24 Albumin/Globulin Ratio 0.7 % 06/02/17 04:24 Urine Color Yellow (Yellow) 05/30/17 15:04 Urine Turbidity Clear (Clear) 05/30/17 15:04 Urine pH 7.0 (5.0-7.0) 05/30/17 15:04 Ur Specific [place] 1.021 (1.003-1.030) 05/30/17 15:04 Urine Protein >500 mg/dL (Negative) 05/30/17 15:04 Urine Glucose (UA) >=500 mg/dL (Negative) 05/30/17 15:04 Urine Ketones Tr mg/dL (Negative) 05/30/17 15:04 Urine Blood Sm (Negative) 05/30/17 15:04 Urine Nitrite Neg (Negative) 05/30/17 15:04 Urine Bilirubin Neg (Negative) 05/30/17 15:04 Urine Urobilinogen < 2.0 mg/dL (<2.0) 05/30/17 15:04 Ur Leukocyte Esterase Neg (Negative) 05/30/17 15:04 Urine WBC (Auto) 2.0 /HPF (0.0-6.0) 05/30/17 15:04 Urine RBC (Auto) 5.0 /HPF (0.0-6.0) 05/30/17 15:04 Urine Bacteria (Auto) 1+ /HPF (Negative) 05/30/17 15:04 Urine Mucus Few /HPF 05/30/17 15:04 Urine Creatinine < 4.2 mg/dL (0.1-20.0) 06/02/17 10:18 Urine Sodium 10 mmol/L 06/02/17 10:18 Urine Total Protein < 4 mg/dL (5-11.8) L 06/02/17 10:18 Urine Opiates Screen Presumptive negative 05/30/17 15:04 Urine Methadone Screen Presumptive negative 05/30/17 15:04 Ur Barbiturates Screen Presumptive negative 05/30/17 15:04 Ur Phencyclidine Scrn Presumptive negative 05/30/17 15:04 Ur Amphetamines Screen Presumptive negative 05/30/17 15:04 U Benzodiazepines Scrn Presumptive negative 05/30/17 15:04 Urine Cocaine Screen Presumptive negative 05/30/17 15:04 U Marijuana (THC) Screen Presumptive positive 05/30/17 15:04 Drugs of Abuse Note Disclamer 05/30/17 15:04
[2017-06-02] MEDS: ARTIFICIAL TEARS OPHTH OINT OU PRN (17:03)
[2017-06-02] MEDS: ALBUTEIN IV SCH (17:04)
[2017-06-03] MEDS: HumuLIN R SUB-Q SCH ×4 (03:11→13:43)
--- NOTE | 2017-06-03 03:28 | XRay Report ---
FINAL REPORT EXAM: XR CHEST 1V AP HISTORY: Acute respiratory failure TECHNIQUE: A portable upright view the chest was obtained and compared to the study 05/30/2017. FINDINGS: The heart remains mildly enlarged. The lungs remain congested. There are bilateral effusions. There is obscuration of the left hemidiaphragm secondary to pleural effusion versus infiltrate. The ET tube and NG tube appear in good position. There EKG leads overlying the chest wall. The bones soft tissues are unchanged. IMPRESSION: Stable cardiomegaly with pulmonary vascular congestion and bilateral effusions. Obscuration of left diaphragm secondary to pleural fluid and/or infiltrate.
[2017-06-03] MEDS: ALBUTEIN IV SCH ×2 (04:15→10:47)
[2017-06-03 05:01] LABS: Hematocrit 31.5 % (30.3-42.9); Hemoglobin 10.5 gm/dl (10.1-14.3); Mean Corpuscular HGB Conc 33 % (30-34); Mean Corpuscular Hemoglobin 27 pg (28-32); Mean Corpuscular Volume 82 fl (79-97); Platelet Count 447 K/mm3 (140-440); Red Blood Count 3.85 M/mm3 (3.65-5.03); Red Cell Distribution Width 15.9 % (13.2-15.2)
[2017-06-03 06:15] LABS: Basophils % (Manual) 0 % (0.0-1.8); Eosinophils % (Manual) 0 % (0.0-4.3); Total Cells Counted 100
[2017-06-03 06:16] LABS: Platelet Estimate Consistent w Auto
[2017-06-03] MEDS: LASIX IV SCH ×2 (06:16→17:38)
[2017-06-03] MEDS: LOVENOX SUB-Q SCH (10:24)
[2017-06-03] MEDS: KEPPRA 750 MG in NACL 0.9% 100 ML IV SCH (10:24)
[2017-06-03] MEDS: COREG PO SCH ×2 (10:25→22:16)
[2017-06-03] MEDS: PEPCID IV SCH (10:25)
--- NOTE | 2017-06-03 11:30 | Progress Note ---
Assessment and Plan - Patient Problems (1) Acute renal failure with tubular necrosis Current Visit: Yes Status: Acute Plan to address problem: most likely ATN s/p PEA arrest superimposed on CKD/diabetic nephropathy. Echocardiogram shows 4 chamber dilated cardiomyopathy with LVEF 15-20%. acute cardiorenal syndrome contributing to JERRI follow cardiology recommendations regarding inotropic support supportive care for JERRI/ATN avoid nephrotoxins, NSAIDs, IV contrast will monitor lytes/renal parameters and make further recommendations (2) Acute respiratory failure Current Visit: Yes Status: Acute Qualifiers: Respiratory failure complication: hypoxia Qualified Code(s): J96.01 - Acute respiratory failure with hypoxia Plan to address problem: vent management as per pulm/CCM (3) Hyperosmolar non-ketotic state in patient with type 2 diabetes mellitus Current Visit: Yes Status: Acute Plan to address problem: glucose control improved, management as per primary attending (4) Seizure Current Visit: Yes Status: Acute Plan to address problem: neuro following (5) Proteinuria Current Visit: Yes Status: Acute Plan to address problem: likely due to underlying diabetic nephropathy. check urine protein/cr ratio. hold ARAM-I/ARB for now given JERRI (6) Hypertension Current Visit: Yes Status: Acute Qualifiers: Hypertension type: essential hypertension Qualified Code(s): I10 - Essential (primary) hypertension Plan to address problem: monitor BP on current meds (7) Acute systolic heart failure Current Visit: Yes Status: Acute Plan to address problem: Echocardiogram shows 4 chamber dilated cardiomyopathy with LVEF 15-20%. acute cardiorenal syndrome contributing to JERRI follow cardiology recommendations regarding inotropic support. cont IV diuresis with lasix 40mg bid, along with albumin support given significant hypoalbuminemia. target net negative fluid balance Subjective Date of service: 06/03/17 Principal diagnosis: Acute respiratory failure Interval history: pt remains on vent, sedated. Objective - Vital Signs Vital signs: Vital Signs - 12hr 06/02/17 06/02/17 06/02/17 23:30 23:41 23:51 Temperature Pulse Rate 102 H 98 H 99 H Pulse Rate [ From Monitor] Respiratory 18 16 21 Rate Blood Pressure 157/88 157/88 154/85 O2 Sat by Pulse 100 100 100 Oximetry 06/03/17 06/03/17 06/03/17 00:00 00:11 00:21 Temperature 98.8 F Pulse Rate 102 H 98 H 98 H Pulse Rate [ From Monitor] Respiratory 20 18 18 Rate Blood Pressure 154/85 154/85 155/81 O2 Sat by Pulse 100 100 100 Oximetry 06/03/17 06/03/17 06/03/17 00:30 00:41 00:51 Temperature Pulse Rate 99 H 98 H 98 H Pulse Rate [ From Monitor] Respiratory 18 18 18 Rate Blood Pressure 154/81 154/81 152/84 O2 Sat by Pulse 100 100 100 Oximetry 06/03/17 06/03/17 06/03/17 01:00 01:11 01:21 Temperature Pulse Rate 99 H 96 H 99 H Pulse Rate [ From Monitor] Respiratory 18 16 17 Rate Blood Pressure 153/82 153/82 150/81 O2 Sat by Pulse 100 100 100 Oximetry 06/03/17 06/03/17 06/03/17 01:30 01:41 01:51 Temperature Pulse Rate 100 H 98 H 98 H Pulse Rate [ From Monitor] Respiratory 20 19 18 Rate Blood Pressure 155/85 155/85 148/82 O2 Sat by Pulse 100 100 100 Oximetry 06/03/17 06/03/17 06/03/17 02:00 02:11 02:21 Temperature Pulse Rate 99 H 110 H 103 H Pulse Rate [ From Monitor] Respiratory 20 25 H 19 Rate Blood Pressure 147/79 147/79 169/98 O2 Sat by Pulse 100 100 100 Oximetry 06/03/17 06/03/17 06/03/17 02:30 02:41 02:51 Temperature Pulse Rate 110 H 121 H 107 H Pulse Rate [ From Monitor] Respiratory 20 25 H 19 Rate Blood Pressure 167/93 167/93 163/94 O2 Sat by Pulse 100 100 100 Oximetry 06/03/17 06/03/17 06/03/17 03:00 03:11 03:14 Temperature Pulse Rate 104 H 105 H 106 H Pulse Rate [ From Monitor] Respiratory 19 19 Rate Blood Pressure 149/79 149/79 154/88 O2 Sat by Pulse 100 100 100 Oximetry 06/03/17 06/03/17 06/03/17 03:21 03:30 03:41 Temperature Pulse Rate 105 H 106 H 113 H Pulse Rate [ From Monitor] Respiratory 19 19 12 Rate Blood Pressure 154/88 150/84 150/84 O2 Sat by Pulse 100 100 100 Oximetry 06/03/17 06/03/17 06/03/17 03:51 04:00 04:01 Temperature 98.9 F Pulse Rate 102 H 102 H Pulse Rate [ From Monitor] Respiratory 20 20 Rate Blood Pressure 159/94 159/94 O2 Sat by Pulse 100 100 Oximetry 06/03/17 06/03/17 06/03/17 04:11 04:21 04:31 Temperature Pulse Rate 100 H 100 H 101 H Pulse Rate [ From Monitor] Respiratory 19 19 19 Rate Blood Pressure 159/94 156/87 156/82 O2 Sat by Pulse 100 100 100 Oximetry 06/03/17 06/03/17 06/03/17 04:41 04:51 05:00 Temperature Pulse Rate 99 H 104 H Pulse Rate [ From Monitor] Respiratory 18 20 20 Rate Blood Pressure 156/82 154/80 O2 Sat by Pulse 100 100 98 Oximetry 06/03/17 06/03/17 06/03/17 05:01 05:11 05:21 Temperature Pulse Rate 98 H 99 H 98 H Pulse Rate [ From Monitor] Respiratory 18 18 16 Rate Blood Pressure 156/80 156/80 156/83 O2 Sat by Pulse 100 100 100 Oximetry 06/03/17 06/03/17 06/03/17 05:31 05:41 05:50 Temperature Pulse Rate 104 H 100 H 103 H Pulse Rate [ From Monitor] Respiratory 18 16 16 Rate Blood Pressure 165/84 165/84 163/87 O2 Sat by Pulse 100 100 100 Oximetry 06/03/17 06/03/17 06/03/17 06:01 06:11 06:21 Temperature Pulse Rate 103 H 102 H 106 H Pulse Rate [ From Monitor] Respiratory 16 18 19 Rate Blood Pressure 164/92 163/87 164/92 O2 Sat by Pulse 100 100 100 Oximetry 06/03/17 06/03/17 06/03/17 06:30 06:41 06:51 Temperature Pulse Rate 116 H 104 H 103 H Pulse Rate [ From Monitor] Respiratory 17 16 17 Rate Blood Pressure 191/106 164/92 167/80 O2 Sat by Pulse 100 100 100 Oximetry 06/03/17 06/03/17 06/03/17 07:01 07:11 07:21 Temperature Pulse Rate 102 H 100 H 100 H Pulse Rate [ From Monitor] Respiratory 18 14 19 Rate Blood Pressure 164/84 164/84 155/79 O2 Sat by Pulse 100 100 100 Oximetry 06/03/17 06/03/17 06/03/17 07:31 07:41 07:51 Temperature Pulse Rate 100 H 99 H 97 H Pulse Rate [ From Monitor] Respiratory 16 19 18 Rate Blood Pressure 159/82 159/82 154/76 O2 Sat by Pulse 100 100 100 Oximetry 06/03/17 06/03/17 06/03/17 07:59 08:00 08:01 Temperature 97.8 F Pulse Rate 92 H 98 H Pulse Rate [ From Monitor] Respiratory 15 Rate Blood Pressure 147/70 147/70 O2 Sat by Pulse 100 100 Oximetry 06/03/17 06/03/17 08:14 10:25 Temperature Pulse Rate 94 H Pulse Rate [ 98 H From Monitor] Respiratory 15 Rate Blood Pressure 165/87 O2 Sat by Pulse 100 Oximetry - General Appearance General appearance: well-developed, well-nourished, appears stated age, sedated on ventilator, intubated EENT: ATNC, PERRL, mucous membranes moist Neck: no JVD Respiratory: Present: Decreased Breath Sounds Cardiology: regular, S1S2 Gastrointestinal: normoactive bowel sounds Integumentary: no rash, other (2+ edema b/l LE ) Neurologic: other (intubated, sedated ) - Lab 06/03/17 04:14 06/03/17 04:14 Most recent lab results Calcium 8.0 mg/dL (8.4-10.2) L 06/03/17 04:14 Phosphorus 4.60 mg/dL (2.5-4.5) H 06/02/17 04:24 Magnesium 1.50 mg/dL (1.7-2.3) L 06/02/17 04:24 Urine Creatinine < 4.2 mg/dL (0.1-20.0) 06/02/17 10:18 Urine Sodium 10 mmol/L 06/02/17 10:18 Urine Total Protein < 4 mg/dL (5-11.8) L 06/02/17 10:18
[2017-06-03] MEDS: APRESOLINE IV PRN (13:59)
[2017-06-03] MEDS ORDERED: COREG PO SCH (15:16)
--- NOTE | 2017-06-03 15:21 | Progress Note ---
Assessment and Plan Imp: 1. Seizures 2. HONK in DM2 patient 3. Metabolic encephalopathy 2/2 above, now ? anoxic enceph. as well 4. s/p CP arrest -> suspect severe biventricular failure played a role in this 5. JERRI 6. Dilated CMP and acute systolic CHF 7. SIRS, probably seizure related Rec: 1. Cont. Keppra; f/u neurology recs; d/c all sedation; MRI of brain without contrast and EEG ordered 2. Hold insulin drip pending MRI brain (okay to resume afterwards) 3. Renal consult -> stop IVFs; on Lasix 4. Cultures negative; stop ABX 5. Echo reviewed; consider cardiology consult; increase Coreg 6. Mentation precludes extubation 7. DVT and GI PPx; increase TFs to goal 8. Finished brief course of steroids; doubt allergic reaction 9. Prognosis is guarded CCT 31 minutes; d/w at bedside 06/02/17, he understands/agrees Subjective Date of service: 06/03/17 Principal diagnosis: Acute respiratory failure Interval history: No events. Off sedation. Sugars better. Unresponsive except eyes are open. Active Medications Acetaminophen (Tylenol) 650 mg FEEDTUBE Q6H PRN PRN Reason: Pain, Mild (1-3) Last Admin: 05/30/17 22:44 Dose: 650 mg Lipase/Protease/Amylase (Pancreaze Dr 10,500 Unit) 1 each FEEDTUBE PRN PRN PRN Reason: For Clogged Feeding Tube Carvedilol (Coreg) 25 mg PO BID [facility] Dextrose (D50w (25gm) Syringe) 0 ml IV PRN PRN PRN Reason: Hypoglycemia Last Admin: 05/31/17 15:20 Dose: 50 ml Dextrose (D50w (25gm) Syringe) 50 ml IV PRN PRN PRN Reason: Hypoglycemia Enoxaparin Sodium (Lovenox) 30 mg SUB-Q Q24HR [facility] Last Admin: 06/03/17 10:24 Dose: 30 mg Famotidine (Pepcid) 20 mg PO DAILY [facility] Furosemide (Lasix) 40 mg IV 0600,1800 [facility] Last Admin: 06/03/17 06:16 Dose: 40 mg Hydralazine HCl (Apresoline) 10 mg IV Q6HR PRN PRN Reason: Hypertension Last Admin: 06/03/17 13:59 Dose: 10 mg Hydrophilic Ointment (Vaseline Lip Therapy) 1 applic TP Q2HR PRN PRN Reason: Dry Lips Last Admin: 06/02/17 17:03 Dose: 1 applic Insulin Human Regular 100 (units/ Sodium Chloride) 100 mls @ 1 mls/hr IV TITR GUZMAN; Protocol Levetiracetam (Keppra) 750 mg PO BID [facility] Multi-Ingred Cream/Lotion/Oil/Oint (Artificial Tears Ophth Oint) 1 applic OU Q4HR PRN PRN Reason: Dry Eye(s) Last Admin: 06/02/17 17:03 Dose: 1 applic Simple Syrup (Simple Syrup) 15 ml FEEDTUBE PRN PRN PRN Reason: Hypoglycemia Simple Syrup (Simple Syrup) 30 ml FEEDTUBE PRN PRN PRN Reason: Hypoglycemia Sodium Bicarbonate (Sodium Bicarbonate) 325 mg FEEDTUBE PRN PRN PRN Reason: For Clogged Feeding Tube Sodium Chloride (Nacl 0.9% 500 Ml) 1 ml IV DIRECT [facility] Objective Vital Signs - 12hr 06/03/17 06/03/17 06/03/17 03:21 03:30 03:41 Temperature Pulse Rate 105 H 106 H 113 H Pulse Rate [ From Monitor] Respiratory 19 19 12 Rate Blood Pressure 154/88 150/84 150/84 O2 Sat by Pulse 100 100 100 Oximetry 06/03/17 06/03/17 06/03/17 03:51 04:00 04:01 Temperature 98.9 F Pulse Rate 102 H 102 H Pulse Rate [ From Monitor] Respiratory 20 20 Rate Blood Pressure 159/94 159/94 O2 Sat by Pulse 100 100 Oximetry 06/03/17 06/03/17 06/03/17 04:11 04:21 04:31 Temperature Pulse Rate 100 H 100 H 101 H Pulse Rate [ From Monitor] Respiratory 19 19 19 Rate Blood Pressure 159/94 156/87 156/82 O2 Sat by Pulse 100 100 100 Oximetry 06/03/17 06/03/17 06/03/17 04:41 04:51 05:00 Temperature Pulse Rate 99 H 104 H Pulse Rate [ From Monitor] Respiratory 18 20 20 Rate Blood Pressure 156/82 154/80 O2 Sat by Pulse 100 100 98 Oximetry 06/03/17 06/03/17 06/03/17 05:01 05:11 05:21 Temperature Pulse Rate 98 H 99 H 98 H Pulse Rate [ From Monitor] Respiratory 18 18 16 Rate Blood Pressure 156/80 156/80 156/83 O2 Sat by Pulse 100 100 100 Oximetry 06/03/17 06/03/17 06/03/17 05:31 05:41 05:50 Temperature Pulse Rate 104 H 100 H 103 H Pulse Rate [ From Monitor] Respiratory 18 16 16 Rate Blood Pressure 165/84 165/84 163/87 O2 Sat by Pulse 100 100 100 Oximetry 06/03/17 06/03/17 06/03/17 06:01 06:11 06:21 Temperature Pulse Rate 103 H 102 H 106 H Pulse Rate [ From Monitor] Respiratory 16 18 19 Rate Blood Pressure 164/92 163/87 164/92 O2 Sat by Pulse 100 100 100 Oximetry 06/03/17 06/03/17 06/03/17 06:30 06:41 06:51 Temperature Pulse Rate 116 H 104 H 103 H Pulse Rate [ From Monitor] Respiratory 17 16 17 Rate Blood Pressure 191/106 164/92 167/80 O2 Sat by Pulse 100 100 100 Oximetry 06/03/17 06/03/17 06/03/17 07:01 07:11 07:21 Temperature Pulse Rate 102 H 100 H 100 H Pulse Rate [ From Monitor] Respiratory 18 14 19 Rate Blood Pressure 164/84 164/84 155/79 O2 Sat by Pulse 100 100 100 Oximetry 06/03/17 06/03/17 06/03/17 07:31 07:41 07:51 Temperature Pulse Rate 100 H 99 H 97 H Pulse Rate [ From Monitor] Respiratory 16 19 18 Rate Blood Pressure 159/82 159/82 154/76 O2 Sat by Pulse 100 100 100 Oximetry 06/03/17 06/03/17 06/03/17 07:59 08:00 08:01 Temperature 97.8 F Pulse Rate 92 H 98 H Pulse Rate [ From Monitor] Respiratory 15 Rate Blood Pressure 147/70 147/70 O2 Sat by Pulse 100 100 Oximetry 06/03/17 06/03/17 06/03/17 08:11 08:14 08:21 Temperature Pulse Rate 98 H 96 H Pulse Rate [ 98 H From Monitor] Respiratory 13 15 15 Rate Blood Pressure 147/70 154/75 O2 Sat by Pulse 100 100 100 Oximetry 06/03/17 06/03/17 06/03/17 08:31 08:41 08:51 Temperature Pulse Rate 92 H 93 H 92 H Pulse Rate [ From Monitor] Respiratory 14 18 17 Rate Blood Pressure 145/77 145/77 150/74 O2 Sat by Pulse 100 100 100 Oximetry 06/03/17 06/03/17 06/03/17 09:01 09:11 09:21 Temperature Pulse Rate 92 H 102 H 94 H Pulse Rate [ From Monitor] Respiratory 15 15 14 Rate Blood Pressure 141/70 141/70 167/101 O2 Sat by Pulse 100 100 100 Oximetry 06/03/17 06/03/17 06/03/17 09:31 09:41 09:51 Temperature Pulse Rate 94 H 95 H 89 Pulse Rate [ From Monitor] Respiratory 15 19 14 Rate Blood Pressure 167/101 167/101 160/77 O2 Sat by Pulse 100 100 100 Oximetry 06/03/17 06/03/17 06/03/17 10:01 10:11 10:21 Temperature Pulse Rate 105 H 92 H 90 Pulse Rate [ From Monitor] Respiratory 19 18 15 Rate Blood Pressure 187/101 187/101 165/87 O2 Sat by Pulse 100 100 100 Oximetry 06/03/17 06/03/17 06/03/17 10:25 10:31 10:41 Temperature Pulse Rate 94 H 106 H 103 H Pulse Rate [ From Monitor] Respiratory 19 18 Rate Blood Pressure 165/87 191/103 191/103 O2 Sat by Pulse 100 100 Oximetry 06/03/17 06/03/17 06/03/17 10:51 11:01 11:11 Temperature Pulse Rate 103 H 103 H 98 H Pulse Rate [ From Monitor] Respiratory 19 18 18 Rate Blood Pressure 178/101 185/106 185/106 O2 Sat by Pulse 100 100 100 Oximetry 06/03/17 06/03/17 06/03/17 11:21 11:31 11:41 Temperature Pulse Rate 98 H 103 H 98 H Pulse Rate [ From Monitor] Respiratory 17 20 16 Rate Blood Pressure 180/98 170/93 170/93 O2 Sat by Pulse 100 100 100 Oximetry 06/03/17 06/03/17 06/03/17 11:51 12:01 12:05 Temperature Pulse Rate 98 H 95 H 92 H Pulse Rate [ From Monitor] Respiratory 19 17 Rate Blood Pressure 170/93 176/92 176/92 O2 Sat by Pulse 100 100 100 Oximetry 06/03/17 06/03/17 06/03/17 12:11 12:21 12:31 Temperature Pulse Rate 95 H 87 91 H Pulse Rate [ From Monitor] Respiratory 17 14 18 Rate Blood Pressure 176/92 176/92 166/82 O2 Sat by Pulse 100 100 100 Oximetry 06/03/17 06/03/17 06/03/17 12:41 12:51 13:01 Temperature Pulse Rate 92 H 88 91 H Pulse Rate [ From Monitor] Respiratory 16 17 18 Rate Blood Pressure 176/92 176/92 166/87 O2 Sat by Pulse 100 100 100 Oximetry 06/03/17 06/03/17 06/03/17 13:11 13:21 13:30 Temperature Pulse Rate 87 89 94 H Pulse Rate [ From Monitor] Respiratory 14 14 21 Rate Blood Pressure 166/87 166/82 166/87 O2 Sat by Pulse 100 100 100 Oximetry 06/03/17 06/03/17 06/03/17 13:41 13:51 13:59 Temperature Pulse Rate 89 95 H 93 H Pulse Rate [ From Monitor] Respiratory 16 18 Rate Blood Pressure 170/86 170/86 170/86 O2 Sat by Pulse 100 100 Oximetry 06/03/17 06/03/17 06/03/17 14:01 14:11 14:21 Temperature Pulse Rate 91 H 98 H 96 H Pulse Rate [ From Monitor] Respiratory 19 20 19 Rate Blood Pressure 172/84 172/84 172/84 O2 Sat by Pulse 100 100 100 Oximetry 06/03/17 06/03/17 06/03/17 14:30 14:41 14:51 Temperature Pulse Rate 103 H 100 H 93 H Pulse Rate [ From Monitor] Respiratory 21 20 19 Rate Blood Pressure 172/84 159/81 159/81 O2 Sat by Pulse 100 100 100 Oximetry 06/03/17 15:01 Temperature Pulse Rate 103 H Pulse Rate [ From Monitor] Respiratory 20 Rate Blood Pressure 160/84 O2 Sat by Pulse 100 Oximetry Constitutional: other (unresponsive, critically ill on ventilator) Eyes: non-icteric, other (chemosis of both eyes were noted.) ENT: oropharynx moist, other (orally intubated) Neck: supple Effort: mildly labored Ascultation: Bilateral: other (coarse BS bilaterally) Cardiovascular: other (tachycardia, RR; no mrg) Gastrointestinal: normoactive bowel sounds, soft, non-tender Integumentary: normal Extremities: no cyanosis, no edema, pink and warm Neurologic: unable to assess, other (unresponsive) Psychiatric: other (not able to assess) CBC and BMP: 06/03/17 04:14 06/03/17 04:14 ABG, PT/INR, D-dimer: ABG POC ABG pH 7.381 (7.35-7.45) 06/03/17 05:06 POC ABG pCO2 28.6 (35-45) L 06/03/17 05:06 POC ABG pO2 112 (80-105) H 06/03/17 05:06 POC ABG HCO3 16.9 06/03/17 05:06 POC ABG Total CO2 18 06/03/17 05:06 POC ABG O2 Sat 98 06/03/17 05:06 Abnormal lab findings: Abnormal Labs 05/30/17 05/30/17 05/30/17 07:48 07:48 08:32 WBC 11.5 H RBC Hgb Hct MCH 27 L RDW 16.3 H Plt Count Seg Neuts % (Manual) Lymphocytes % (Manual) Basophils % (Manual) Seg Neutrophils # Man Lymphocytes # (Manual) Basophils # (Manual) POC ABG pH POC ABG pCO2 POC ABG pO2 Sodium 133 L Potassium Chloride 89.9 L Carbon Dioxide BUN 27 H Creatinine 2.0 H Glucose 741 H* POC Glucose > 500 H Hemoglobin A1c Calcium Phosphorus Magnesium AST Alkaline Phosphatase Total Protein Albumin Urine Total Protein 05/30/17 05/30/17 05/30/17 08:59 08:59 16:08 WBC 14.5 H RBC Hgb Hct MCH RDW 16.0 H Plt Count Seg Neuts % (Manual) 95.0 H Lymphocytes % (Manual) 2.0 L Basophils % (Manual) 2.0 H Seg Neutrophils # Man 13.8 H Lymphocytes # (Manual) 0.3 L Basophils # (Manual) 0.3 H POC ABG pH POC ABG pCO2 POC ABG pO2 Sodium 134 L 135 L Potassium 3.2 L Chloride 90.8 L 93.6 L Carbon Dioxide BUN 28 H 30 H Creatinine 2.0 H 2.1 H Glucose 742 H* 567 H* POC Glucose Hemoglobin A1c Calcium Phosphorus Magnesium AST Alkaline Phosphatase 246 H Total Protein 5.6 L Albumin 2.9 L Urine Total Protein 05/30/17 05/30/17 05/30/17 16:35 17:55 18:59 WBC RBC Hgb Hct MCH RDW Plt Count Seg Neuts % (Manual) Lymphocytes % (Manual) Basophils % (Manual) Seg Neutrophils # Man Lymphocytes # (Manual) Basophils # (Manual) POC ABG pH 7.544 H POC ABG pCO2 32.0 L POC ABG pO2 155 H Sodium Potassium 3.1 L Chloride 93.9 L Carbon Dioxide BUN 30 H Creatinine 2.0 H Glucose 561 H* POC Glucose 497 H Hemoglobin A1c Calcium Phosphorus Magnesium AST Alkaline Phosphatase Total Protein Albumin Urine Total Protein 05/30/17 05/30/17 05/30/17 19:31 19:31 21:38 WBC RBC Hgb Hct MCH RDW Plt Count Seg Neuts % (Manual) Lymphocytes % (Manual) Basophils % (Manual) Seg Neutrophils # Man Lymphocytes # (Manual) Basophils # (Manual) POC ABG pH POC ABG pCO2 POC ABG pO2 Sodium 135 L Potassium 2.9 L* Chloride 93.8 L 95.4 L Carbon Dioxide 20 L BUN 29 H 30 H Creatinine 2.2 H 2.3 H Glucose 478 H 364 H POC Glucose Hemoglobin A1c Calcium Phosphorus 2.20 L D Magnesium 1.40 L AST 42 H Alkaline Phosphatase 177 H Total Protein 5.4 L Albumin 2.4 L Urine Total Protein 05/30/17 05/31/17 05/31/17 23:06 02:17 05:27 WBC RBC Hgb Hct MCH RDW Plt Count Seg Neuts % (Manual) Lymphocytes % (Manual) Basophils % (Manual) Seg Neutrophils # Man Lymphocytes # (Manual) Basophils # (Manual) POC ABG pH 7.489 H POC ABG pCO2 POC ABG pO2 Sodium Potassium 3.2 L 3.5 L Chloride Carbon Dioxide BUN 30 H 31 H Creatinine 2.5 H 2.4 H Glucose 288 H 246 H POC Glucose Hemoglobin A1c Calcium 8.3 L Phosphorus Magnesium AST Alkaline Phosphatase Total Protein Albumin Urine Total Protein 05/31/17 05/31/17 05/31/17 05:45 05:45 05:45 WBC RBC Hgb Hct MCH RDW Plt Count Seg Neuts % (Manual) Lymphocytes % (Manual) Basophils % (Manual) Seg Neutrophils # Man Lymphocytes # (Manual) Basophils # (Manual) POC ABG pH POC ABG pCO2 POC ABG pO2 Sodium Potassium Chloride Carbon Dioxide BUN 32 H 30 H Creatinine 2.5 H 2.6 H Glucose 266 H 271 H POC Glucose Hemoglobin A1c 9.7 H Calcium 8.3 L 8.2 L Phosphorus Magnesium AST Alkaline Phosphatase 145 H Total Protein 4.7 L Albumin 1.8 L Urine Total Protein 05/31/17 05/31/17 05/31/17 08:18 09:20 12:18 WBC RBC Hgb Hct MCH RDW Plt Count Seg Neuts % (Manual) Lymphocytes % (Manual) Basophils % (Manual) Seg Neutrophils # Man Lymphocytes # (Manual) Basophils # (Manual) POC ABG pH POC ABG pCO2 POC ABG pO2 Sodium Potassium Chloride Carbon Dioxide BUN Creatinine Glucose POC Glucose 300 H 254 H 170 H Hemoglobin A1c Calcium Phosphorus Magnesium AST Alkaline Phosphatase Total Protein Albumin Urine Total Protein 05/31/17 05/31/17 05/31/17 14:09 14:17 14:27 WBC RBC Hgb Hct MCH RDW Plt Count Seg Neuts % (Manual) Lymphocytes % (Manual) Basophils % (Manual) Seg Neutrophils # Man Lymphocytes # (Manual) Basophils # (Manual) POC ABG pH POC ABG pCO2 POC ABG pO2 Sodium Potassium 3.4 L Chloride 107.1 H Carbon Dioxide BUN 30 H Creatinine 2.6 H Glucose 38 L* POC Glucose < 40 L 189 H Hemoglobin A1c Calcium 7.6 L Phosphorus Magnesium AST Alkaline Phosphatase Total Protein Albumin Urine Total Protein 05/31/17 05/31/17 05/31/17 15:01 16:01 17:19 WBC RBC Hgb Hct MCH RDW Plt Count Seg Neuts % (Manual) Lymphocytes % (Manual) Basophils % (Manual) Seg Neutrophils # Man Lymphocytes # (Manual) Basophils # (Manual) POC ABG pH POC ABG pCO2 POC ABG pO2 Sodium Potassium Chloride Carbon Dioxide BUN Creatinine Glucose POC Glucose 130 H 165 H 131 H Hemoglobin A1c Calcium Phosphorus Magnesium AST Alkaline Phosphatase Total Protein Albumin Urine Total Protein 05/31/17 05/31/17 05/31/17 18:46 19:54 20:36 WBC RBC Hgb Hct MCH RDW Plt Count Seg Neuts % (Manual) Lymphocytes % (Manual) Basophils % (Manual) Seg Neutrophils # Man Lymphocytes # (Manual) Basophils # (Manual) POC ABG pH POC ABG pCO2 POC ABG pO2 Sodium Potassium Chloride Carbon Dioxide BUN 29 H Creatinine 2.4 H Glucose 124 H POC Glucose 128 H 157 H Hemoglobin A1c Calcium 7.9 L Phosphorus Magnesium AST Alkaline Phosphatase Total Protein Albumin Urine Total Protein 05/31/17 06/01/1706/01/18 21:41 03:22 04:06 WBC RBC Hgb Hct MCH RDW Plt Count Seg Neuts % (Manual) Lymphocytes % (Manual) Basophils % (Manual) Seg Neutrophils # Man Lymphocytes # (Manual) Basophils # (Manual) POC ABG pH POC ABG pCO2 POC ABG pO2 Sodium Potassium Chloride Carbon Dioxide 19 L BUN 29 H Creatinine 2.6 H Glucose 205 H POC Glucose 158 H 251 H Hemoglobin A1c Calcium 7.8 L Phosphorus Magnesium AST Alkaline Phosphatase Total Protein Albumin Urine Total Protein 06/01/17 06/01/17 06/01/17 04:30 09:15 09:59 WBC 19.7 H RBC Hgb 10.0 L Hct MCH 27 L RDW 17.1 H Plt Count Seg Neuts % (Manual) Lymphocytes % (Manual) Basophils % (Manual) Seg Neutrophils # Man Lymphocytes # (Manual) Basophils # (Manual) POC ABG pH 7.464 H POC ABG pCO2 31.3 L POC ABG pO2 Sodium Potassium Chloride Carbon Dioxide BUN Creatinine Glucose POC Glucose 330 H Hemoglobin A1c Calcium Phosphorus Magnesium AST Alkaline Phosphatase Total Protein Albumin Urine Total Protein 06/01/17 06/01/17 06/01/17 11:36 12:25 13:43 WBC RBC Hgb Hct MCH RDW Plt Count Seg Neuts % (Manual) Lymphocytes % (Manual) Basophils % (Manual) Seg Neutrophils # Man Lymphocytes # (Manual) Basophils # (Manual) POC ABG pH POC ABG pCO2 POC ABG pO2 Sodium Potassium Chloride Carbon Dioxide BUN Creatinine Glucose POC Glucose 431 H 434 H 445 H Hemoglobin A1c Calcium Phosphorus Magnesium AST Alkaline Phosphatase Total Protein Albumin Urine Total Protein 06/01/17 06/01/17 06/01/17 14:26 15:46 16:03 WBC RBC Hgb Hct MCH RDW Plt Count Seg Neuts % (Manual) Lymphocytes % (Manual) Basophils % (Manual) Seg Neutrophils # Man Lymphocytes # (Manual) Basophils # (Manual) POC ABG pH POC ABG pCO2 POC ABG pO2 Sodium Potassium Chloride Carbon Dioxide BUN Creatinine Glucose POC Glucose 310 H 292 H 244 H Hemoglobin A1c Calcium Phosphorus Magnesium AST Alkaline Phosphatase Total Protein Albumin Urine Total Protein 06/01/17 06/01/17 06/01/17 16:59 17:49 19:05 WBC RBC Hgb Hct MCH RDW Plt Count Seg Neuts % (Manual) Lymphocytes % (Manual) Basophils % (Manual) Seg Neutrophils # Man Lymphocytes # (Manual) Basophils # (Manual) POC ABG pH POC ABG pCO2 POC ABG pO2 Sodium Potassium Chloride Carbon Dioxide BUN Creatinine Glucose POC Glucose 260 H 203 H 156 H Hemoglobin A1c Calcium Phosphorus Magnesium AST Alkaline Phosphatase Total Protein Albumin Urine Total Protein 06/02/17 06/02/17 06/02/17 00:09 01:06 02:31 WBC RBC Hgb Hct MCH RDW Plt Count Seg Neuts % (Manual) Lymphocytes % (Manual) Basophils % (Manual) Seg Neutrophils # Man Lymphocytes # (Manual) Basophils # (Manual) POC ABG pH POC ABG pCO2 POC ABG pO2 Sodium Potassium Chloride Carbon Dioxide BUN Creatinine Glucose POC Glucose 137 H 146 H 182 H Hemoglobin A1c Calcium Phosphorus Magnesium AST Alkaline Phosphatase Total Protein Albumin Urine Total Protein 06/02/17 06/02/17 06/02/17 04:03 04:24 04:24 WBC 21.0 H RBC 3.62 L Hgb Hct 29.6 L MCH RDW 16.5 H Plt Count Seg Neuts % (Manual) 98.0 H Lymphocytes % (Manual) 1.0 L Basophils % (Manual) Seg Neutrophils # Man 20.6 H Lymphocytes # (Manual) 0.2 L Basophils # (Manual) POC ABG pH POC ABG pCO2 POC ABG pO2 Sodium Potassium Chloride Carbon Dioxide 20 L BUN 36 H Creatinine 2.8 H Glucose 137 H POC Glucose 150 H Hemoglobin A1c Calcium 7.5 L Phosphorus 4.60 H Magnesium 1.50 L AST Alkaline Phosphatase 132 H Total Protein 4.1 L Albumin 1.7 L Urine Total Protein 06/02/17 06/02/17 06/02/17 05:01 05:14 06:20 WBC RBC Hgb Hct MCH RDW Plt Count Seg Neuts % (Manual) Lymphocytes % (Manual) Basophils % (Manual) Seg Neutrophils # Man Lymphocytes # (Manual) Basophils # (Manual) POC ABG pH 7.517 H POC ABG pCO2 28.4 L POC ABG pO2 67 L Sodium Potassium Chloride Carbon Dioxide BUN Creatinine Glucose POC Glucose 137 H 163 H Hemoglobin A1c Calcium Phosphorus Magnesium AST Alkaline Phosphatase Total Protein Albumin Urine Total Protein 06/02/17 06/02/17 06/02/17 07:43 09:40 10:18 WBC RBC Hgb Hct MCH RDW Plt Count Seg Neuts % (Manual) Lymphocytes % (Manual) Basophils % (Manual) Seg Neutrophils # Man Lymphocytes # (Manual) Basophils # (Manual) POC ABG pH POC ABG pCO2 POC ABG pO2 Sodium Potassium Chloride Carbon Dioxide BUN Creatinine Glucose POC Glucose 135 H 196 H Hemoglobin A1c Calcium Phosphorus Magnesium AST Alkaline Phosphatase Total Protein Albumin Urine Total Protein < 4 L 06/02/17 06/02/17 06/02/17 10:33 11:55 17:39 WBC RBC Hgb Hct MCH RDW Plt Count Seg Neuts % (Manual) Lymphocytes % (Manual) Basophils % (Manual) Seg Neutrophils # Man Lymphocytes # (Manual) Basophils # (Manual) POC ABG pH POC ABG pCO2 POC ABG pO2 Sodium Potassium Chloride Carbon Dioxide BUN Creatinine Glucose POC Glucose 188 H 110 H 150 H Hemoglobin A1c Calcium Phosphorus Magnesium AST Alkaline Phosphatase Total Protein Albumin Urine Total Protein 06/02/17 06/02/17 06/03/17 18:12 21:32 02:02 WBC RBC Hgb Hct MCH RDW Plt Count Seg Neuts % (Manual) Lymphocytes % (Manual) Basophils % (Manual) Seg Neutrophils # Man Lymphocytes # (Manual) Basophils # (Manual) POC ABG pH POC ABG pCO2 POC ABG pO2 Sodium Potassium Chloride Carbon Dioxide BUN Creatinine Glucose POC Glucose 131 H 143 H 191 H Hemoglobin A1c Calcium Phosphorus Magnesium AST Alkaline Phosphatase Total Protein Albumin Urine Total Protein 06/03/17 06/03/17 06/03/17 04:14 04:14 05:06 WBC 21.1 H RBC Hgb Hct MCH 27 L RDW 15.9 H Plt Count 447 H Seg Neuts % (Manual) 94.0 H Lymphocytes % (Manual) 3.0 L Basophils % (Manual) Seg Neutrophils # Man 19.8 H Lymphocytes # (Manual) 0.6 L Basophils # (Manual) POC ABG pH POC ABG pCO2 28.6 L POC ABG pO2 112 H Sodium Potassium Chloride Carbon Dioxide 14 L BUN 45 H Creatinine 2.8 H Glucose 211 H POC Glucose Hemoglobin A1c Calcium 8.0 L Phosphorus Magnesium AST Alkaline Phosphatase Total Protein Albumin Urine Total Protein 06/03/17 06/03/17 06/03/17 06:00 10:20 13:43 WBC RBC Hgb Hct MCH RDW Plt Count Seg Neuts % (Manual) Lymphocytes % (Manual) Basophils % (Manual) Seg Neutrophils # Man Lymphocytes # (Manual) Basophils # (Manual) POC ABG pH POC ABG pCO2 POC ABG pO2 Sodium Potassium Chloride Carbon Dioxide BUN Creatinine Glucose POC Glucose 224 H 226 H 296 H Hemoglobin A1c Calcium Phosphorus Magnesium AST Alkaline Phosphatase Total Protein Albumin Urine Total Protein Chest x-ray: report reviewed, image reviewed
--- NOTE | 2017-06-03 16:48 | Magnetic Resonance Report ---
FINAL REPORT PROCEDURE: MRI brain without contrast. TECHNIQUE: Magnetic resonance imaging of the brain was performed without contrast material. HISTORY: Encephalopathy after cardiopulmonary arrest. COMPARISON: CT head 05/30/2017. FINDINGS: The ventricles are normal in size. There is normal signal intensity from the santos matter and white matter. There are no mass lesions. There is no intracranial hemorrhage. There is fairly extensive restricted diffusion. This is prominent in the cortical gyri of both cerebral hemispheres. It involves portions of both frontal lobes, both temporal lobes, the right parietal lobe and the right occipital lobe. There is relative sparing of the left occipital lobe and left parietal lobe. These areas of restricted diffusion are confirmed on the ADC map images. The findings are consistent with a global anoxic event. There is some fluid in some of the left mastoid air cells. There is fluid in both sphenoid sinuses. There is some mucosal thickening in the left maxillary sinus. IMPRESSION: Fairly extensive anoxic encephalopathy as described. Mild left mastoiditis. Acute sphenoid sinusitis.
[2017-06-03] MEDS: HumuLIN R 100 UNITS in NACL 0.9% 99 ML IV SCH ×2 (17:38→23:11)
[2017-06-03] MEDS ORDERED: NACL 0.45% 1000 ML 1,000 ML IV SCH (19:00)
[2017-06-03] MEDS: ARTIFICIAL TEARS OPHTH OINT OU PRN (22:17)
[2017-06-03] MEDS: KEPPRA PO SCH (22:17)
[2017-06-04] MEDS: D5W/0.45% NACL/KCL 20 MEQ 20 MEQ/1,000 ML BAG IV SCH ×2 (02:32→07:06)
[2017-06-04 04:46] LABS: Basophils # (Auto) 0.1 K/mm3 (0.0-0.1); Basophils % (Auto) 0.4 % (0.0-1.8); Eosinophils % (Auto) 0.1 % (0.0-4.3); Hematocrit 32.1 % (30.3-42.9); Hemoglobin 10.4 gm/dl (10.1-14.3); Lymphocytes # (Auto) 1.4 K/mm3 (1.2-5.4); Lymphocytes % (Auto) 7.3 % (13.4-35.0); Mean Corpuscular HGB Conc 32 % (30-34); Mean Corpuscular Hemoglobin 26 pg (28-32); Mean Corpuscular Volume 81 fl (79-97); Monocytes # (Auto) 2.1 K/mm3 (0.0-0.8); Monocytes % (Auto) 10.8 % (0.0-7.3); Platelet Count 564 K/mm3 (140-440); Red Blood Count 3.94 M/mm3 (3.65-5.03); Red Cell Distribution Width 15.6 % (13.2-15.2)
[2017-06-04 05:04] LABS: Calcium 7.9 mg/dL (8.4-10.2)
[2017-06-04] MEDS: LASIX IV SCH ×2 (05:14→17:45)
--- NOTE | 2017-06-04 07:03 | Progress Note ---
Assessment and Plan Assessment and plan: 36-year-old -[place] female was admitted to the floor for seizure episode, altered mental status, acute hypoxic respiratory failure, patient was intubated in the emergency department patient had PEA and resuscitated successfully. Acute hypoxic respiratory - intubated in the mechanical ventilation<96hrs Acute encephalopathy - treat underlying cause -Await MRI Seizure disorder - Patient is on IV Keppra -Neurology following -Await MRI Cardiomyopathy-possible -Cardiology consult HONK - on Insulin drip - Continue Insulin drip, Advised nursing about gap and need to continue and the transition method. Patient has episodes of hypothermia and leukocytosis - Blood culture was taken and empirically on Vanc and Zosyn - Further rise in Leukocytosis likely secondary to Steroids Acute renal failure - Continue IV fluids Malnutrition - Patient is currently on on OG-tube feeding Hypertension - Continue home medications ?Cardiac arrest DVT prophylaxis Disposition - Continue ICU care. Discussed with family The high probability of a clinically significant, sudden or life threatening deterioration of the [respiratory, cardiovascular, neurologic, renal] system(s) required my full and direct attention, intervention and personal management. The aggregate critical care time was [35] minutes. This time is in addition to time spent performing reported procedures but includes the following: [x] Data Review and interpretation [x] Patient assessment and monitoring of vital signs [x] Documentation [x] Medication orders and management History Interval history: Patient seen and examined remains unresponsive on mechanical ventilation. Off sedation. NO clinical change Hospitalist Physical - Physical exam Narrative exam: Not in cardiopulmonary distress. The patient appeared well nourished and normally developed. Vital signs as documented. HEENT: Swelling of orbital, oral and facial soft tissue structures. ETT is in place No scleral icterus . Neck is without jugular venous distension, thyromegaly, or carotid bruits. Lungs are clear to auscultation. Cardiac exam reveals regular rate and Rhythm. First and second heart sounds normal. No murmurs, rubs or gallops. Abdominal exam reveals normal bowel sounds, no masses, no organomegaly and no aortic enlargement. Extremities are nonedematous and both femoral and pedal pulses are normal. Neuro: None responsive. Sponteonous eye opening observed. - Constitutional Vitals: Temp Pulse Resp BP Pulse Ox 98 F 103 H 21 161/99 100 06/04/17 04:00 06/04/17 06:40 06/04/17 06:40 06/04/17 06:40 06/04/17 06:40 General appearance: Present: severe distress, well-nourished Results - Labs CBC & Chem 7: 06/04/17 04:05 06/04/17 04:05 Labs: Laboratory Last Values WBC 19.6 K/mm3 (4.5-11.0) H 06/04/17 04:05 RBC 3.94 M/mm3 (3.65-5.03) 06/04/17 04:05 Hgb 10.4 gm/dl (10.1-14.3) 06/04/17 04:05 Hct 32.1 % (30.3-42.9) 06/04/17 04:05 MCV 81 fl (79-97) 06/04/17 04:05 MCH 26 pg (28-32) L 06/04/17 04:05 MCHC 32 % (30-34) 06/04/17 04:05 RDW 15.6 % (13.2-15.2) H 06/04/17 04:05 Plt Count 564 K/mm3 (140-440) H 06/04/17 04:05 Lymph % (Auto) 7.3 % (13.4-35.0) L 06/04/17 04:05 [place] % (Auto) 10.8 % (0.0-7.3) H 06/04/17 04:05 Eos % (Auto) 0.1 % (0.0-4.3) 06/04/17 04:05 Baso % (Auto) 0.4 % (0.0-1.8) 06/04/17 04:05 Lymph # 1.4 K/mm3 (1.2-5.4) 06/04/17 04:05 [place] # 2.1 K/mm3 (0.0-0.8) H 06/04/17 04:05 Eos # 0.0 K/mm3 (0.0-0.4) 06/04/17 04:05 Baso # 0.1 K/mm3 (0.0-0.1) 06/04/17 04:05 Add Manual Diff Complete 06/03/17 04:14 Total Counted 100 06/03/17 04:14 Seg Neutrophils % 81.4 % (40.0-70.0) H 06/04/17 04:05 Seg Neuts % (Manual) 94.0 % (40.0-70.0) H 06/03/17 04:14 Band Neutrophils % 0 % 06/03/17 04:14 Lymphocytes % (Manual) 3.0 % (13.4-35.0) L 06/03/17 04:14 Reactive Lymphs % (Man) 0 % 06/03/17 04:14 Monocytes % (Manual) 3.0 % (0.0-7.3) 06/03/17 04:14 Eosinophils % (Manual) 0 % (0.0-4.3) 06/03/17 04:14 Basophils % (Manual) 0 % (0.0-1.8) 06/03/17 04:14 Metamyelocytes % 0 % 06/03/17 04:14 Myelocytes % 0 % 06/03/17 04:14 Promyelocytes % 0 % 06/03/17 04:14 Blast Cells % 0 % 06/03/17 04:14 Nucleated RBC % Not Reportable 06/03/17 04:14 Seg Neutrophils # 15.9 K/mm3 (1.8-7.7) H 06/04/17 04:05 Seg Neutrophils # Man 19.8 K/mm3 (1.8-7.7) H 06/03/17 04:14 Band Neutrophils # 0.0 K/mm3 06/03/17 04:14 Lymphocytes # (Manual) 0.6 K/mm3 (1.2-5.4) L 06/03/17 04:14 Abs React Lymphs (Man) 0.0 K/mm3 06/03/17 04:14 Monocytes # (Manual) 0.6 K/mm3 (0.0-0.8) 06/03/17 04:14 Eosinophils # (Manual) 0.0 K/mm3 (0.0-0.4) 06/03/17 04:14 Basophils # (Manual) 0.0 K/mm3 (0.0-0.1) 06/03/17 04:14 Metamyelocytes # 0.0 K/mm3 06/03/17 04:14 Myelocytes # 0.0 K/mm3 06/03/17 04:14 Promyelocytes # 0.0 K/mm3 06/03/17 04:14 Blast Cells # 0.0 K/mm3 06/03/17 04:14 WBC Morphology Not Reportable 06/03/17 04:14 Hypersegmented Neuts Not Reportable 06/03/17 04:14 Hyposegmented Neuts Not Reportable 06/03/17 04:14 Hypogranular Neuts Not Reportable 06/03/17 04:14 Smudge Cells Not Reportable 06/03/17 04:14 Toxic Granulation Not Reportable 06/03/17 04:14 Toxic Vacuolation Not Reportable 06/03/17 04:14 Dohle Bodies Not Reportable 06/03/17 04:14 Pelger-Huet Anomaly Not Reportable 06/03/17 04:14 Don Rods Not Reportable 06/03/17 04:14 Platelet Estimate Consistent w auto 06/03/17 04:14 Clumped Platelets Not Reportable 06/03/17 04:14 Plt Clumps, EDTA Not Reportable 06/03/17 04:14 Large Platelets Not Reportable 06/03/17 04:14 Giant Platelets Not Reportable 06/03/17 04:14 Platelet Satelliting Not Reportable 06/03/17 04:14 Plt Morphology Comment Not Reportable 06/03/17 04:14 RBC Morphology Not Reportable 06/03/17 04:14 Dimorphic RBCs Not Reportable 06/03/17 04:14 Polychromasia Not Reportable 06/03/17 04:14 Hypochromasia Not Reportable 06/03/17 04:14 Poikilocytosis Not Reportable 06/03/17 04:14 Anisocytosis Not Reportable 06/03/17 04:14 Microcytosis Not Reportable 06/03/17 04:14 Macrocytosis Not Reportable 06/03/17 04:14 Spherocytes Not Reportable 06/03/17 04:14 Pappenheimer Bodies Not Reportable 06/03/17 04:14 Sickle Cells Not Reportable 06/03/17 04:14 Target Cells Not Reportable 06/03/17 04:14 Tear Drop Cells Not Reportable 06/03/17 04:14 Ovalocytes Not Reportable 06/03/17 04:14 Helmet Cells Not Reportable 06/03/17 04:14 [place] Bodies Not Reportable 06/03/17 04:14 [place] Rings Not Reportable 06/03/17 04:14 Cecy Cells Not Reportable 06/03/17 04:14 Bite Cells Not Reportable 06/03/17 04:14 Crenated Cell Not Reportable 06/03/17 04:14 Elliptocytes Not Reportable 06/03/17 04:14 Acanthocytes (Spur) Not Reportable 06/03/17 04:14 Rouleaux Not Reportable 06/03/17 04:14 Hemoglobin C Crystals Not Reportable 06/03/17 04:14 Schistocytes Not Reportable 06/03/17 04:14 Malaria parasites Not Reportable 06/03/17 04:14 [place]aid Bodies Not Reportable 06/03/17 04:14 Hem Pathologist Commnt No 06/03/17 04:14 POC ABG pH 7.486 (7.35-7.45) H 06/04/17 04:56 POC ABG pCO2 26.8 (35-45) L 06/04/17 04:56 POC ABG pO2 92 (80-105) 06/04/17 04:56 POC ABG HCO3 20.2 06/04/17 04:56 POC ABG Total CO2 21 06/04/17 04:56 POC ABG O2 Sat 98 06/04/17 04:56 POC ABG Base Excess -3 06/04/17 04:56 VBG pH 7.327 (7.320-7.420) 05/30/17 10:43 FiO2 30 % 06/04/17 04:56 Sodium 139 mmol/L (137-145) 06/04/17 04:05 Potassium 3.6 mmol/L (3.6-5.0) 06/04/17 04:05 Chloride 104.7 mmol/L (98-107) 06/04/17 04:05 Carbon Dioxide 17 mmol/L (22-30) L 06/04/17 04:05 Anion Gap 21 mmol/L 06/04/17 04:05 BUN 52 mg/dL (7-17) H 06/04/17 04:05 Creatinine 2.5 mg/dL (0.7-1.2) H 06/04/17 04:05 Estimated GFR 27 ml/min 06/04/17 04:05 BUN/Creatinine Ratio 21 % 06/04/17 04:05 Glucose 163 mg/dL (65-100) H 06/04/17 04:05 POC Glucose 208 (70-105) H 06/04/17 05:39 Hemoglobin A1c 9.7 % (4-6) H 05/31/17 05:45 Calcium 7.9 mg/dL (8.4-10.2) L 06/04/17 04:05 Phosphorus 4.60 mg/dL (2.5-4.5) H 06/02/17 04:24 Magnesium 1.50 mg/dL (1.7-2.3) L 06/02/17 04:24 Total Bilirubin 0.50 mg/dL (0.1-1.2) 06/02/17 04:24 AST 23 units/L (5-40) 06/02/17 04:24 ALT 14 units/L (7-56) 06/02/17 04:24 Alkaline Phosphatase 132 units/L (35-129) H 06/02/17 04:24 Total Protein 4.1 g/dL (6.3-8.2) L 06/02/17 04:24 Albumin 1.7 g/dL (3.9-5) L 06/02/17 04:24 Albumin/Globulin Ratio 0.7 % 06/02/17 04:24 Urine Color Yellow (Yellow) 05/30/17 15:04 Urine Turbidity Clear (Clear) 05/30/17 15:04 Urine pH 7.0 (5.0-7.0) 05/30/17 15:04 Ur Specific [place] 1.021 (1.003-1.030) 05/30/17 15:04 Urine Protein >500 mg/dL (Negative) 05/30/17 15:04 Urine Glucose (UA) >=500 mg/dL (Negative) 05/30/17 15:04 Urine Ketones Tr mg/dL (Negative) 05/30/17 15:04 Urine Blood Sm (Negative) 05/30/17 15:04 Urine Nitrite Neg (Negative) 05/30/17 15:04 Urine Bilirubin Neg (Negative) 05/30/17 15:04 Urine Urobilinogen < 2.0 mg/dL (<2.0) 05/30/17 15:04 Ur Leukocyte Esterase Neg (Negative) 05/30/17 15:04 Urine WBC (Auto) 2.0 /HPF (0.0-6.0) 05/30/17 15:04 Urine RBC (Auto) 5.0 /HPF (0.0-6.0) 05/30/17 15:04 Urine Bacteria (Auto) 1+ /HPF (Negative) 05/30/17 15:04 Urine Mucus Few /HPF 05/30/17 15:04 Urine Creatinine < 4.2 mg/dL (0.1-20.0) 06/02/17 10:18 Urine Sodium 10 mmol/L 06/02/17 10:18 Urine Total Protein < 4 mg/dL (5-11.8) L 06/02/17 10:18 Urine Opiates Screen Presumptive negative 05/30/17 15:04 Urine Methadone Screen Presumptive negative 05/30/17 15:04 Ur Barbiturates Screen Presumptive negative 05/30/17 15:04 Ur Phencyclidine Scrn Presumptive negative 05/30/17 15:04 Ur Amphetamines Screen Presumptive negative 05/30/17 15:04 U Benzodiazepines Scrn Presumptive negative 05/30/17 15:04 Urine Cocaine Screen Presumptive negative 05/30/17 15:04 U Marijuana (THC) Screen Presumptive positive 05/30/17 15:04 Drugs of Abuse Note Disclamer 05/30/17 15:04 - Imaging and Cardiology MRI - head: pending
[2017-06-04] MEDS: APRESOLINE IV PRN ×2 (07:33→17:45)
[2017-06-04] MEDS ORDERED: SODIUM BICARBONATE IV ONE (09:06)
[2017-06-04] MEDS: PEPCID PO SCH (09:42)
[2017-06-04] MEDS: COREG PO SCH ×2 (09:42→21:11)
[2017-06-04] MEDS: KEPPRA PO SCH ×2 (09:43→21:12)
[2017-06-04] MEDS: LOVENOX SUB-Q SCH (09:44)
[2017-06-04] MEDS: HumaLOG SUB-Q SCH ×3 (10:23→17:51)
--- NOTE | 2017-06-04 12:56 | Consultation ---
History of Present Illness Consult date: 06/04/17 Consult reason: other (dilated cardiomyopathy) History of present illness: The patient is a 36-year-old woman who was admitted to the hospital 5 days ago with a diagnosis of a seizure episode. Since then, she has been unresponsive on the vent with respiratory failure in the ICU. A review of the telemetry strips show sinus rhythm, no significant dysrhythmias, stable blood pressure which is currently 126 systolic. Yesterday, an echocardiogram was ordered by the medical service, which revealed a severe cardiomyopathy, left ventricular ejection fraction 15-20%. Based on this finding, a cardiac consultation was requested. The patient as reported this unresponsive on the vent, unable to provide a history, and no family members at the bedside. No records of her prior cardiac history on review of the hospital chart. Past medical history on the chart reports hypertension and diabetes. Home medications include carvedilol and a diuretic, but there is no specific record of a previous known cardiomyopathy. Currently in a normal sinus rhythm, 86, narrow QRS complexes, blood pressure 126 systolic. Past History Past Medical History: diabetes, hypertension, seizures Social history: no significant social history Family history: no significant family history Medications and Allergies Allergies Allergy/AdvReac Type Severity Reaction Status Date / Time lisinopril Allergy Angioedema Verified 12/30/16 12:06 Home Medications Medication Instructions Recorded Confirmed Last Taken Type Insulin Regular, Human [Novolin R] 22 units SQ AC 30 Days vial 01/01/17 Unknown Rx Bumetanide [Bumetanide 2 mg tab] 2 mg PO DAILY 06/02/17 06/02/17 Unknown History Carvedilol [Coreg] 6.25 mg PO BID 06/02/17 06/02/17 Unknown History Dicyclomine [Bentyl] 1 cap PO BID PRN 06/02/17 06/02/17 Unknown History Furosemide [Lasix TAB] 40 mg PO QDAY 06/02/17 06/02/17 Unknown History HYDROcodone/APAP 5-325 1 - 2 tab PO Q6HR PRN 06/02/17 06/02/17 Unknown History Metoclopramide [Reglan TAB] 1 tab PO Q6HR 06/02/17 06/02/17 Unknown History Pantoprazole [Protonix] 40 mg PO QDAY 06/02/17 06/02/17 Unknown History Valsartan/Hydrochlorothiazide 1 tab PO DAILY 06/02/17 06/02/17 Unknown History [Valsartan-Hctz 160-12.5 mg Tab] Active Meds: Active Medications Acetaminophen (Tylenol) 650 mg FEEDTUBE Q6H PRN PRN Reason: Pain, Mild (1-3) Last Admin: 05/30/17 22:44 Dose: 650 mg Lipase/Protease/Amylase (Pancreaze Dr 10,500 Unit) 1 each FEEDTUBE PRN PRN PRN Reason: For Clogged Feeding Tube Carvedilol (Coreg) 25 mg PO BID REPLACED BY [facility] Last Admin: 06/04/17 09:42 Dose: 25 mg Dextrose (D50w (25gm) Syringe) 0 ml IV PRN PRN PRN Reason: Hypoglycemia Last Admin: 05/31/17 15:20 Dose: 50 ml Dextrose (D50w (25gm) Syringe) 50 ml IV PRN PRN PRN Reason: Hypoglycemia Enoxaparin Sodium (Lovenox) 30 mg SUB-Q Q24HR REPLACED BY [facility] Last Admin: 06/04/17 09:44 Dose: 30 mg Famotidine (Pepcid) 20 mg PO DAILY REPLACED BY [facility] Last Admin: 06/04/17 09:42 Dose: 20 mg Furosemide (Lasix) 40 mg IV 0600,1800 REPLACED BY [facility] Last Admin: 06/04/17 05:14 Dose: 40 mg Hydralazine HCl (Apresoline) 10 mg IV Q6HR PRN PRN Reason: Hypertension Last Admin: 06/04/17 07:33 Dose: 10 mg Hydrophilic Ointment (Vaseline Lip Therapy) 1 applic TP Q2HR PRN PRN Reason: Dry Lips Last Admin: 06/02/17 17:03 Dose: 1 applic Insulin Human Regular 100 (units/ Sodium Chloride) 100 mls @ 1 mls/hr IV TITR REPLACED BY [facility]; Protocol Last Titration: 06/04/17 10:27 Dose: 0 units/hr, 0 mls/hr Insulin Human Isoph/Insulin Regular (Humulin 70/30) 15 unit SUB-Q BID REPLACED BY [facility] Last Admin: 06/04/17 10:18 Dose: 15 unit Insulin Human Lispro (Humalog) 0 unit SUB-Q Q6HR REPLACED BY [facility]; Protocol Last Admin: 06/04/17 12:35 Dose: 2 unit Levetiracetam (Keppra) 750 mg PO BID GUZMAN Last Admin: 06/04/17 09:43 Dose: 750 mg Multi-Ingred Cream/Lotion/Oil/Oint (Artificial Tears Ophth Oint) 1 applic OU Q4HR PRN PRN Reason: Dry Eye(s) Last Admin: 06/03/17 22:17 Dose: 1 applic Simple Syrup (Simple Syrup) 15 ml FEEDTUBE PRN PRN PRN Reason: Hypoglycemia Simple Syrup (Simple Syrup) 30 ml FEEDTUBE PRN PRN PRN Reason: Hypoglycemia Sodium Bicarbonate (Sodium Bicarbonate) 325 mg FEEDTUBE PRN PRN PRN Reason: For Clogged Feeding Tube Sodium Chloride (Nacl 0.9% 500 Ml) 1 ml IV DIRECT GUZMAN Review of Systems ROS unobtainable: due to endotracheal tube, due to mental status Physical Examination Vital Signs Pulse Resp 101 H 23 05/30/17 06:58 05/30/17 06:58 General appearance: other (unresponsive, on the ventilator) HEENT: Positive: Other (pupils fixed) Neck: Positive: neck supple Cardiac: Positive: Reg Rate and Rhythm Lungs: Positive: Decreased Breath Sounds Neuro: Positive: Other (unresponsive, on the vent) Abdomen: Positive: Soft Female genitourinary: deferred Skin: Positive: Clear Extremities: Absent: edema Results 06/04/17 04:05 06/04/17 04:05 CBC 06/04/17 Range/Units 04:05 WBC 19.6 H (4.5-11.0) K/mm3 RBC 3.94 (3.65-5.03) M/mm3 Hgb 10.4 (10.1-14.3) gm/dl Hct 32.1 (30.3-42.9) % Plt Count 564 H (140-440) K/mm3 Lymph # 1.4 (1.2-5.4) K/mm3 [place] # 2.1 H (0.0-0.8) K/mm3 Eos # 0.0 (0.0-0.4) K/mm3 Baso # 0.1 (0.0-0.1) K/mm3 Comprehensive Metabolic Panel 06/04/17 Range/Units 04:05 Sodium 139 (137-145) mmol/L Potassium 3.6 (3.6-5.0) mmol/L Chloride 104.7 (98-107) mmol/L Carbon Dioxide 17 L (22-30) mmol/L BUN 52 H (7-17) mg/dL Creatinine 2.5 H (0.7-1.2) mg/dL Glucose 163 H (65-100) mg/dL Calcium 7.9 L (8.4-10.2) mg/dL EKG interpretations - Telemetry EKG Rhythm: Sinus Rhythm Assessment and Plan - Patient Problems (1) Dilated cardiomyopathy Current Visit: Yes Status: Acute Plan to address problem: Echocardiogram demonstrates dilated cardiomyopathy, ejection fraction 15-20%. The chronicity of the cardiomyopathy is uncertain, no records available for review. Patient's home medications do include carvedilol, valsartan and a diuretic, which may suggest the cardiomyopathy is possibly not new. At this time, will recommend medical therapy with continued afterload reduction , beta blockers and oral antiplatelet therapy. Further cardiac evaluation and management will depend on clinical course. Prognosis is guarded. (2) Acute respiratory failure Current Visit: Yes Status: Acute Qualifiers: Respiratory failure complication: hypoxia Qualified Code(s): J96.01 - Acute respiratory failure with hypoxia Plan to address problem: Patient was admitted with a reported seizure event, currently has acute respiratory failure, unresponsive on the vent. During the course in the hospital, I do not see any cardiac tachycardia or bradycardia arrhythmias on telemetry monitoring.
--- NOTE | 2017-06-04 13:58 | Progress Note ---
Assessment and Plan Imp: 1. Seizures 2. HONK in DM2 patient 3. Metabolic encephalopathy 2/2 above + anoxic enceph per MRI brain 4. s/p CP arrest -> suspect severe biventricular failure played a role in this 5. JERRI 6. Dilated CMP and acute systolic CHF 7. SIRS, probably seizure related Rec: 1. Cont. Keppra; neurology evaluation; d/c all sedation; MRI of brain without contrast and EEG ordered 2. Lasix 3. Cultures negative; stop ABX 4. Cards eval. 5. Mentation precludes extubation; depending on goals of care may need trach 6. DVT and GI PPx; TFs 7. Finished brief course of steroids; doubt allergic reaction 8. Prognosis is guarded to poor CCT 31 minutes; d/w at bedside 06/02/17, he understands/agrees Subjective Date of service: 06/04/17 Principal diagnosis: Acute respiratory failure Interval history: No events. Off sedation. Sugars better. Unresponsive except eyes are open. Active Medications Acetaminophen (Tylenol) 650 mg FEEDTUBE Q6H PRN PRN Reason: Pain, Mild (1-3) Last Admin: 05/30/17 22:44 Dose: 650 mg Lipase/Protease/Amylase (Pancreaze Dr 10,500 Unit) 1 each FEEDTUBE PRN PRN PRN Reason: For Clogged Feeding Tube Carvedilol (Coreg) 25 mg PO BID [facility] Last Admin: 06/04/17 09:42 Dose: 25 mg Dextrose (D50w (25gm) Syringe) 0 ml IV PRN PRN PRN Reason: Hypoglycemia Last Admin: 05/31/17 15:20 Dose: 50 ml Dextrose (D50w (25gm) Syringe) 50 ml IV PRN PRN PRN Reason: Hypoglycemia Enoxaparin Sodium (Lovenox) 30 mg SUB-Q Q24HR [facility] Last Admin: 06/04/17 09:44 Dose: 30 mg Famotidine (Pepcid) 20 mg PO DAILY [facility] Last Admin: 06/04/17 09:42 Dose: 20 mg Furosemide (Lasix) 40 mg IV 0600,1800 [facility] Last Admin: 06/04/17 05:14 Dose: 40 mg Hydralazine HCl (Apresoline) 10 mg IV Q6HR PRN PRN Reason: Hypertension Last Admin: 06/04/17 07:33 Dose: 10 mg Hydrophilic Ointment (Vaseline Lip Therapy) 1 applic TP Q2HR PRN PRN Reason: Dry Lips Last Admin: 06/02/17 17:03 Dose: 1 applic Insulin Human Regular 100 (units/ Sodium Chloride) 100 mls @ 1 mls/hr IV TITR [facility]; Protocol Last Titration: 06/04/17 10:27 Dose: 0 units/hr, 0 mls/hr Insulin Human Isoph/Insulin Regular (Humulin 70/30) 15 unit SUB-Q BID [facility] Last Admin: 06/04/17 10:18 Dose: 15 unit Insulin Human Lispro (Humalog) 0 unit SUB-Q Q6HR [facility]; Protocol Last Admin: 06/04/17 12:35 Dose: 2 unit Levetiracetam (Keppra) 750 mg PO BID [facility] Last Admin: 06/04/17 09:43 Dose: 750 mg Multi-Ingred Cream/Lotion/Oil/Oint (Artificial Tears Ophth Oint) 1 applic OU Q4HR PRN PRN Reason: Dry Eye(s) Last Admin: 06/03/17 22:17 Dose: 1 applic Simple Syrup (Simple Syrup) 15 ml FEEDTUBE PRN PRN PRN Reason: Hypoglycemia Simple Syrup (Simple Syrup) 30 ml FEEDTUBE PRN PRN PRN Reason: Hypoglycemia Sodium Bicarbonate (Sodium Bicarbonate) 325 mg FEEDTUBE PRN PRN PRN Reason: For Clogged Feeding Tube Sodium Chloride (Nacl 0.9% 500 Ml) 1 ml IV DIRECT [facility] Objective Vital Signs - 12hr 06/04/17 06/04/17 06/04/17 02:00 02:10 02:20 Temperature Pulse Rate 99 H 94 H 89 Pulse Rate [ Right Dorsalis Pedis] Respiratory 20 19 12 Rate Blood Pressure 150/92 150/92 150/92 O2 Sat by Pulse 100 100 100 Oximetry 06/04/17 06/04/17 06/04/17 02:30 02:40 02:50 Temperature Pulse Rate 91 H 90 94 H Pulse Rate [ Right Dorsalis Pedis] Respiratory 18 17 19 Rate Blood Pressure 149/89 149/89 149/89 O2 Sat by Pulse 100 100 100 Oximetry 06/04/17 06/04/17 06/04/17 03:00 03:10 03:20 Temperature Pulse Rate 101 H 91 H 92 H Pulse Rate [ Right Dorsalis Pedis] Respiratory 21 16 19 Rate Blood Pressure 156/94 156/94 156/94 O2 Sat by Pulse 100 100 100 Oximetry 06/04/17 06/04/17 06/04/17 03:30 03:40 03:50 Temperature Pulse Rate 92 H 92 H 105 H Pulse Rate [ Right Dorsalis Pedis] Respiratory 17 20 23 Rate Blood Pressure 152/89 152/89 152/89 O2 Sat by Pulse 100 100 100 Oximetry 06/04/17 06/04/17 06/04/17 04:00 04:10 04:20 Temperature 98 F Pulse Rate 95 H 96 H 99 H Pulse Rate [ Right Dorsalis Pedis] Respiratory 19 18 20 Rate Blood Pressure 155/99 155/99 155/99 O2 Sat by Pulse 100 100 100 Oximetry 06/04/17 06/04/17 06/04/17 04:30 04:40 04:42 Temperature Pulse Rate 94 H 100 H 100 H Pulse Rate [ Right Dorsalis Pedis] Respiratory 17 20 Rate Blood Pressure 154/85 154/85 154/85 O2 Sat by Pulse 100 100 100 Oximetry 06/04/17 06/04/17 06/04/17 04:50 05:00 05:10 Temperature Pulse Rate 98 H 101 H 91 H Pulse Rate [ Right Dorsalis Pedis] Respiratory 18 21 16 Rate Blood Pressure 154/85 150/91 150/91 O2 Sat by Pulse 100 100 100 Oximetry 06/04/17 06/04/17 06/04/17 05:20 05:30 05:40 Temperature Pulse Rate 109 H 94 H 94 H Pulse Rate [ Right Dorsalis Pedis] Respiratory 19 16 18 Rate Blood Pressure 150/91 160/94 150/91 O2 Sat by Pulse 100 100 100 Oximetry 06/04/17 06/04/17 06/04/17 05:50 06:00 06:10 Temperature Pulse Rate 94 H 96 H 96 H Pulse Rate [ Right Dorsalis Pedis] Respiratory 18 18 16 Rate Blood Pressure 150/91 155/91 160/94 O2 Sat by Pulse 100 100 100 Oximetry 06/04/17 06/04/17 06/04/17 06:20 06:30 06:40 Temperature Pulse Rate 93 H 99 H 103 H Pulse Rate [ Right Dorsalis Pedis] Respiratory 19 20 21 Rate Blood Pressure 160/94 161/99 161/99 O2 Sat by Pulse 100 100 100 Oximetry 06/04/17 06/04/17 06/04/17 06:50 07:00 07:10 Temperature Pulse Rate 98 H 100 H 103 H Pulse Rate [ Right Dorsalis Pedis] Respiratory 15 19 21 Rate Blood Pressure 161/99 161/99 173/104 O2 Sat by Pulse 100 100 100 Oximetry 06/04/17 06/04/17 06/04/17 07:20 07:30 07:33 Temperature Pulse Rate 98 H 102 H 101 H Pulse Rate [ Right Dorsalis Pedis] Respiratory 19 21 Rate Blood Pressure 173/104 174/99 173/104 O2 Sat by Pulse 100 100 Oximetry 06/04/17 06/04/17 06/04/17 07:40 07:50 08:00 Temperature 97.7 F Pulse Rate 113 H 109 H 109 H Pulse Rate [ 109 H Right Dorsalis Pedis] Respiratory 22 20 19 Rate Blood Pressure 179/97 179/97 157/84 O2 Sat by Pulse 100 100 100 Oximetry 06/04/17 06/04/17 06/04/17 08:10 08:20 08:30 Temperature Pulse Rate 111 H 111 H 107 H Pulse Rate [ Right Dorsalis Pedis] Respiratory 20 19 17 Rate Blood Pressure 157/84 157/84 149/82 O2 Sat by Pulse 100 100 100 Oximetry 06/04/17 06/04/17 06/04/17 08:38 08:40 08:50 Temperature Pulse Rate 100 H 103 H 114 H Pulse Rate [ Right Dorsalis Pedis] Respiratory 15 20 Rate Blood Pressure 149/82 149/82 149/82 O2 Sat by Pulse 100 100 100 Oximetry 06/04/17 06/04/17 06/04/17 09:00 09:10 09:20 Temperature Pulse Rate 102 H 102 H 102 H Pulse Rate [ Right Dorsalis Pedis] Respiratory 15 18 16 Rate Blood Pressure 147/80 149/82 149/82 O2 Sat by Pulse 100 100 100 Oximetry 06/04/17 06/04/17 06/04/17 09:30 09:40 09:42 Temperature Pulse Rate 100 H 104 H 95 H Pulse Rate [ Right Dorsalis Pedis] Respiratory 16 19 Rate Blood Pressure 143/80 143/80 143/80 O2 Sat by Pulse 100 100 Oximetry 06/04/17 06/04/17 06/04/17 09:50 10:00 10:10 Temperature Pulse Rate 113 H 105 H 96 H Pulse Rate [ Right Dorsalis Pedis] Respiratory 19 17 15 Rate Blood Pressure 143/80 162/87 143/80 O2 Sat by Pulse 100 100 100 Oximetry 06/04/17 06/04/17 06/04/17 10:20 10:30 10:40 Temperature Pulse Rate 93 H 89 86 Pulse Rate [ Right Dorsalis Pedis] Respiratory 13 16 17 Rate Blood Pressure 143/80 125/70 162/87 O2 Sat by Pulse 100 100 100 Oximetry 06/04/17 06/04/17 06/04/17 10:50 11:00 11:10 Temperature Pulse Rate 88 96 H 85 Pulse Rate [ Right Dorsalis Pedis] Respiratory 18 21 19 Rate Blood Pressure 162/87 126/78 126/78 O2 Sat by Pulse 100 100 100 Oximetry 06/04/17 06/04/17 06/04/17 11:20 11:30 11:40 Temperature Pulse Rate 85 94 H 92 H Pulse Rate [ Right Dorsalis Pedis] Respiratory 14 20 19 Rate Blood Pressure 126/78 130/77 130/77 O2 Sat by Pulse 100 100 100 Oximetry 06/04/17 06/04/17 06/04/17 11:44 11:50 12:00 Temperature 97.7 F Pulse Rate 92 H 89 90 Pulse Rate [ Right Dorsalis Pedis] Respiratory 15 16 Rate Blood Pressure 130/77 130/77 128/76 O2 Sat by Pulse 100 100 100 Oximetry 06/04/17 06/04/17 06/04/17 12:10 12:20 12:30 Temperature Pulse Rate 91 H 91 H 97 H Pulse Rate [ Right Dorsalis Pedis] Respiratory 15 18 19 Rate Blood Pressure 128/76 128/76 137/88 O2 Sat by Pulse 100 100 100 Oximetry 06/04/17 12:40 Temperature Pulse Rate 99 H Pulse Rate [ Right Dorsalis Pedis] Respiratory 18 Rate Blood Pressure 137/88 O2 Sat by Pulse 100 Oximetry Constitutional: other (unresponsive, critically ill on ventilator) Eyes: non-icteric, other (chemosis of both eyes were noted.) ENT: oropharynx moist, other (orally intubated) Neck: supple Effort: normal Ascultation: Bilateral: other (coarse BS bilaterally) Cardiovascular: other (tachycardia, RR; no mrg) Gastrointestinal: normoactive bowel sounds, soft, non-tender Integumentary: normal Extremities: no cyanosis, no edema, pink and warm Neurologic: unable to assess, other (unresponsive) Psychiatric: other (not able to assess) CBC and BMP: 06/04/17 04:05 06/04/17 04:05 ABG, PT/INR, D-dimer: ABG POC ABG pH 7.486 (7.35-7.45) H 06/04/17 04:56 POC ABG pCO2 26.8 (35-45) L 06/04/17 04:56 POC ABG pO2 92 (80-105) 06/04/17 04:56 POC ABG HCO3 20.2 06/04/17 04:56 POC ABG Total CO2 21 06/04/17 04:56 POC ABG O2 Sat 98 06/04/17 04:56 Abnormal lab findings: Abnormal Labs 05/30/17 05/30/17 05/30/17 07:48 07:48 08:32 WBC 11.5 H RBC Hgb Hct MCH 27 L RDW 16.3 H Plt Count Lymph % (Auto) Cobb % (Auto) Cobb # Seg Neutrophils % Seg Neuts % (Manual) Lymphocytes % (Manual) Basophils % (Manual) Seg Neutrophils # Seg Neutrophils # Man Lymphocytes # (Manual) Basophils # (Manual) POC ABG pH POC ABG pCO2 POC ABG pO2 Sodium 133 L Potassium Chloride 89.9 L Carbon Dioxide BUN 27 H Creatinine 2.0 H Glucose 741 H* POC Glucose > 500 H Hemoglobin A1c Calcium Phosphorus Magnesium AST Alkaline Phosphatase Total Protein Albumin Urine Total Protein 05/30/17 05/30/17 05/30/17 08:59 08:59 16:08 WBC 14.5 H RBC Hgb Hct MCH RDW 16.0 H Plt Count Lymph % (Auto) Cobb % (Auto) Cobb # Seg Neutrophils % Seg Neuts % (Manual) 95.0 H Lymphocytes % (Manual) 2.0 L Basophils % (Manual) 2.0 H Seg Neutrophils # Seg Neutrophils # Man 13.8 H Lymphocytes # (Manual) 0.3 L Basophils # (Manual) 0.3 H POC ABG pH POC ABG pCO2 POC ABG pO2 Sodium 134 L 135 L Potassium 3.2 L Chloride 90.8 L 93.6 L Carbon Dioxide BUN 28 H 30 H Creatinine 2.0 H 2.1 H Glucose 742 H* 567 H* POC Glucose Hemoglobin A1c Calcium Phosphorus Magnesium AST Alkaline Phosphatase 246 H Total Protein 5.6 L Albumin 2.9 L Urine Total Protein 05/30/17 05/30/17 05/30/17 16:35 17:55 18:59 WBC RBC Hgb Hct MCH RDW Plt Count Lymph % (Auto) Cobb % (Auto) Cobb # Seg Neutrophils % Seg Neuts % (Manual) Lymphocytes % (Manual) Basophils % (Manual) Seg Neutrophils # Seg Neutrophils # Man Lymphocytes # (Manual) Basophils # (Manual) POC ABG pH 7.544 H POC ABG pCO2 32.0 L POC ABG pO2 155 H Sodium Potassium 3.1 L Chloride 93.9 L Carbon Dioxide BUN 30 H Creatinine 2.0 H Glucose 561 H* POC Glucose 497 H Hemoglobin A1c Calcium Phosphorus Magnesium AST Alkaline Phosphatase Total Protein Albumin Urine Total Protein 05/30/17 05/30/17 05/30/17 19:31 19:31 21:38 WBC RBC Hgb Hct MCH RDW Plt Count Lymph % (Auto) Cobb % (Auto) Cobb # Seg Neutrophils % Seg Neuts % (Manual) Lymphocytes % (Manual) Basophils % (Manual) Seg Neutrophils # Seg Neutrophils # Man Lymphocytes # (Manual) Basophils # (Manual) POC ABG pH POC ABG pCO2 POC ABG pO2 Sodium 135 L Potassium 2.9 L* Chloride 93.8 L 95.4 L Carbon Dioxide 20 L BUN 29 H 30 H Creatinine 2.2 H 2.3 H Glucose 478 H 364 H POC Glucose Hemoglobin A1c Calcium Phosphorus 2.20 L D Magnesium 1.40 L AST 42 H Alkaline Phosphatase 177 H Total Protein 5.4 L Albumin 2.4 L Urine Total Protein 05/30/17 05/31/17 05/31/17 23:06 02:17 05:27 WBC RBC Hgb Hct MCH RDW Plt Count Lymph % (Auto) Cobb % (Auto) Cobb # Seg Neutrophils % Seg Neuts % (Manual) Lymphocytes % (Manual) Basophils % (Manual) Seg Neutrophils # Seg Neutrophils # Man Lymphocytes # (Manual) Basophils # (Manual) POC ABG pH 7.489 H POC ABG pCO2 POC ABG pO2 Sodium Potassium 3.2 L 3.5 L Chloride Carbon Dioxide BUN 30 H 31 H Creatinine 2.5 H 2.4 H Glucose 288 H 246 H POC Glucose Hemoglobin A1c Calcium 8.3 L Phosphorus Magnesium AST Alkaline Phosphatase Total Protein Albumin Urine Total Protein 0305/31/17 05/31/17 05:45 05:45 05:45 WBC RBC Hgb Hct MCH RDW Plt Count Lymph % (Auto) Cobb % (Auto) Cobb # Seg Neutrophils % Seg Neuts % (Manual) Lymphocytes % (Manual) Basophils % (Manual) Seg Neutrophils # Seg Neutrophils # Man Lymphocytes # (Manual) Basophils # (Manual) POC ABG pH POC ABG pCO2 POC ABG pO2 Sodium Potassium Chloride Carbon Dioxide BUN 32 H 30 H Creatinine 2.5 H 2.6 H Glucose 266 H 271 H POC Glucose Hemoglobin A1c 9.7 H Calcium 8.3 L 8.2 L Phosphorus Magnesium AST Alkaline Phosphatase 145 H Total Protein 4.7 L Albumin 1.8 L Urine Total Protein 05/31/17 05/31/17 05/31/17 08:18 09:20 12:18 WBC RBC Hgb Hct MCH RDW Plt Count Lymph % (Auto) Cobb % (Auto) Cobb # Seg Neutrophils % Seg Neuts % (Manual) Lymphocytes % (Manual) Basophils % (Manual) Seg Neutrophils # Seg Neutrophils # Man Lymphocytes # (Manual) Basophils # (Manual) POC ABG pH POC ABG pCO2 POC ABG pO2 Sodium Potassium Chloride Carbon Dioxide BUN Creatinine Glucose POC Glucose 300 H 254 H 170 H Hemoglobin A1c Calcium Phosphorus Magnesium AST Alkaline Phosphatase Total Protein Albumin Urine Total Protein 05/31/17 05/31/17 05/31/17 14:09 14:17 14:27 WBC RBC Hgb Hct MCH RDW Plt Count Lymph % (Auto) Cobb % (Auto) Cobb # Seg Neutrophils % Seg Neuts % (Manual) Lymphocytes % (Manual) Basophils % (Manual) Seg Neutrophils # Seg Neutrophils # Man Lymphocytes # (Manual) Basophils # (Manual) POC ABG pH POC ABG pCO2 POC ABG pO2 Sodium Potassium 3.4 L Chloride 107.1 H Carbon Dioxide BUN 30 H Creatinine 2.6 H Glucose 38 L* POC Glucose < 40 L 189 H Hemoglobin A1c Calcium 7.6 L Phosphorus Magnesium AST Alkaline Phosphatase Total Protein Albumin Urine Total Protein 05/31/17 05/31/17 05/31/17 15:01 16:01 17:19 WBC RBC Hgb Hct MCH RDW Plt Count Lymph % (Auto) Cobb % (Auto) Cobb # Seg Neutrophils % Seg Neuts % (Manual) Lymphocytes % (Manual) Basophils % (Manual) Seg Neutrophils # Seg Neutrophils # Man Lymphocytes # (Manual) Basophils # (Manual) POC ABG pH POC ABG pCO2 POC ABG pO2 Sodium Potassium Chloride Carbon Dioxide BUN Creatinine Glucose POC Glucose 130 H 165 H 131 H Hemoglobin A1c Calcium Phosphorus Magnesium AST Alkaline Phosphatase Total Protein Albumin Urine Total Protein 05/31/17 05/31/17 05/31/17 18:46 19:54 20:36 WBC RBC Hgb Hct MCH RDW Plt Count Lymph % (Auto) Cobb % (Auto) Cobb # Seg Neutrophils % Seg Neuts % (Manual) Lymphocytes % (Manual) Basophils % (Manual) Seg Neutrophils # Seg Neutrophils # Man Lymphocytes # (Manual) Basophils # (Manual) POC ABG pH POC ABG pCO2 POC ABG pO2 Sodium Potassium Chloride Carbon Dioxide BUN 29 H Creatinine 2.4 H Glucose 124 H POC Glucose 128 H 157 H Hemoglobin A1c Calcium 7.9 L Phosphorus Magnesium AST Alkaline Phosphatase Total Protein Albumin Urine Total Protein 05/31/17 06/01/17 06/01/17 21:41 03:22 04:06 WBC RBC Hgb Hct MCH RDW Plt Count Lymph % (Auto) Cobb % (Auto) Cobb # Seg Neutrophils % Seg Neuts % (Manual) Lymphocytes % (Manual) Basophils % (Manual) Seg Neutrophils # Seg Neutrophils # Man Lymphocytes # (Manual) Basophils # (Manual) POC ABG pH POC ABG pCO2 POC ABG pO2 Sodium Potassium Chloride Carbon Dioxide 19 L BUN 29 H Creatinine 2.6 H Glucose 205 H POC Glucose 158 H 251 H Hemoglobin A1c Calcium 7.8 L Phosphorus Magnesium AST Alkaline Phosphatase Total Protein Albumin Urine Total Protein 06/01/17 06/01/17 06/01/17 04:30 09:15 09:59 WBC 19.7 H RBC Hgb 10.0 L Hct MCH 27 L RDW 17.1 H Plt Count Lymph % (Auto) Cobb % (Auto) Cobb # Seg Neutrophils % Seg Neuts % (Manual) Lymphocytes % (Manual) Basophils % (Manual) Seg Neutrophils # Seg Neutrophils # Man Lymphocytes # (Manual) Basophils # (Manual) POC ABG pH 7.464 H POC ABG pCO2 31.3 L POC ABG pO2 Sodium Potassium Chloride Carbon Dioxide BUN Creatinine Glucose POC Glucose 330 H Hemoglobin A1c Calcium Phosphorus Magnesium AST Alkaline Phosphatase Total Protein Albumin Urine Total Protein 06/01/17 06/01/17 06/01/17 11:36 12:25 13:43 WBC RBC Hgb Hct MCH RDW Plt Count Lymph % (Auto) Cobb % (Auto) Cobb # Seg Neutrophils % Seg Neuts % (Manual) Lymphocytes % (Manual) Basophils % (Manual) Seg Neutrophils # Seg Neutrophils # Man Lymphocytes # (Manual) Basophils # (Manual) POC ABG pH POC ABG pCO2 POC ABG pO2 Sodium Potassium Chloride Carbon Dioxide BUN Creatinine Glucose POC Glucose 431 H 434 H 445 H Hemoglobin A1c Calcium Phosphorus Magnesium AST Alkaline Phosphatase Total Protein Albumin Urine Total Protein 06/01/17 06/01/17 06/01/17 14:26 15:46 16:03 WBC RBC Hgb Hct MCH RDW Plt Count Lymph % (Auto) Cobb % (Auto) Cobb # Seg Neutrophils % Seg Neuts % (Manual) Lymphocytes % (Manual) Basophils % (Manual) Seg Neutrophils # Seg Neutrophils # Man Lymphocytes # (Manual) Basophils # (Manual) POC ABG pH POC ABG pCO2 POC ABG pO2 Sodium Potassium Chloride Carbon Dioxide BUN Creatinine Glucose POC Glucose 310 H 292 H 244 H Hemoglobin A1c Calcium Phosphorus Magnesium AST Alkaline Phosphatase Total Protein Albumin Urine Total Protein 06/01/17 06/01/17 06/01/17 16:59 17:49 19:05 WBC RBC Hgb Hct MCH RDW Plt Count Lymph % (Auto) Cobb % (Auto) Cobb # Seg Neutrophils % Seg Neuts % (Manual) Lymphocytes % (Manual) Basophils % (Manual) Seg Neutrophils # Seg Neutrophils # Man Lymphocytes # (Manual) Basophils # (Manual) POC ABG pH POC ABG pCO2 POC ABG pO2 Sodium Potassium Chloride Carbon Dioxide BUN Creatinine Glucose POC Glucose 260 H 203 H 156 H Hemoglobin A1c Calcium Phosphorus Magnesium AST Alkaline Phosphatase Total Protein Albumin Urine Total Protein 06/02/17 06/02/17 06/02/17 00:09 01:06 02:31 WBC RBC Hgb Hct MCH RDW Plt Count Lymph % (Auto) Cobb % (Auto) Cobb # Seg Neutrophils % Seg Neuts % (Manual) Lymphocytes % (Manual) Basophils % (Manual) Seg Neutrophils # Seg Neutrophils # Man Lymphocytes # (Manual) Basophils # (Manual) POC ABG pH POC ABG pCO2 POC ABG pO2 Sodium Potassium Chloride Carbon Dioxide BUN Creatinine Glucose POC Glucose 137 H 146 H 182 H Hemoglobin A1c Calcium Phosphorus Magnesium AST Alkaline Phosphatase Total Protein Albumin Urine Total Protein 06/02/17 06/02/17 06/02/17 04:03 04:24 04:24 WBC 21.0 H RBC 3.62 L Hgb Hct 29.6 L MCH RDW 16.5 H Plt Count Lymph % (Auto) Cobb % (Auto) Cobb # Seg Neutrophils % Seg Neuts % (Manual) 98.0 H Lymphocytes % (Manual) 1.0 L Basophils % (Manual) Seg Neutrophils # Seg Neutrophils # Man 20.6 H Lymphocytes # (Manual) 0.2 L Basophils # (Manual) POC ABG pH POC ABG pCO2 POC ABG pO2 Sodium Potassium Chloride Carbon Dioxide 20 L BUN 36 H Creatinine 2.8 H Glucose 137 H POC Glucose 150 H Hemoglobin A1c Calcium 7.5 L Phosphorus 4.60 H Magnesium 1.50 L AST Alkaline Phosphatase 132 H Total Protein 4.1 L Albumin 1.7 L Urine Total Protein 06/02/17 06/02/17 06/02/17 05:01 05:14 06:20 WBC RBC Hgb Hct MCH RDW Plt Count Lymph % (Auto) Cobb % (Auto) Cobb # Seg Neutrophils % Seg Neuts % (Manual) Lymphocytes % (Manual) Basophils % (Manual) Seg Neutrophils # Seg Neutrophils # Man Lymphocytes # (Manual) Basophils # (Manual) POC ABG pH 7.517 H POC ABG pCO2 28.4 L POC ABG pO2 67 L Sodium Potassium Chloride Carbon Dioxide BUN Creatinine Glucose POC Glucose 137 H 163 H Hemoglobin A1c Calcium Phosphorus Magnesium AST Alkaline Phosphatase Total Protein Albumin Urine Total Protein 06/02/17 06/02/17 06/02/17 07:43 09:40 10:18 WBC RBC Hgb Hct MCH RDW Plt Count Lymph % (Auto) Cobb % (Auto) Cobb # Seg Neutrophils % Seg Neuts % (Manual) Lymphocytes % (Manual) Basophils % (Manual) Seg Neutrophils # Seg Neutrophils # Man Lymphocytes # (Manual) Basophils # (Manual) POC ABG pH POC ABG pCO2 POC ABG pO2 Sodium Potassium Chloride Carbon Dioxide BUN Creatinine Glucose POC Glucose 135 H 196 H Hemoglobin A1c Calcium Phosphorus Magnesium AST Alkaline Phosphatase Total Protein Albumin Urine Total Protein < 4 L 06/02/17 06/02/17 06/02/17 10:33 11:55 17:39 WBC RBC Hgb Hct MCH RDW Plt Count Lymph % (Auto) Cobb % (Auto) Cobb # Seg Neutrophils % Seg Neuts % (Manual) Lymphocytes % (Manual) Basophils % (Manual) Seg Neutrophils # Seg Neutrophils # Man Lymphocytes # (Manual) Basophils # (Manual) POC ABG pH POC ABG pCO2 POC ABG pO2 Sodium Potassium Chloride Carbon Dioxide BUN Creatinine Glucose POC Glucose 188 H 110 H 150 H Hemoglobin A1c Calcium Phosphorus Magnesium AST Alkaline Phosphatase Total Protein Albumin Urine Total Protein 06/02/17 06/02/17 06/03/17 18:12 21:32 02:02 WBC RBC Hgb Hct MCH RDW Plt Count Lymph % (Auto) Cobb % (Auto) Cobb # Seg Neutrophils % Seg Neuts % (Manual) Lymphocytes % (Manual) Basophils % (Manual) Seg Neutrophils # Seg Neutrophils # Man Lymphocytes # (Manual) Basophils # (Manual) POC ABG pH POC ABG pCO2 POC ABG pO2 Sodium Potassium Chloride Carbon Dioxide BUN Creatinine Glucose POC Glucose 131 H 143 H 191 H Hemoglobin A1c Calcium Phosphorus Magnesium AST Alkaline Phosphatase Total Protein Albumin Urine Total Protein 06/03/17 06/03/17 06/03/17 04:14 04:14 05:06 WBC 21.1 H RBC Hgb Hct MCH 27 L RDW 15.9 H Plt Count 447 H Lymph % (Auto) Cobb % (Auto) Cobb # Seg Neutrophils % Seg Neuts % (Manual) 94.0 H Lymphocytes % (Manual) 3.0 L Basophils % (Manual) Seg Neutrophils # Seg Neutrophils # Man 19.8 H Lymphocytes # (Manual) 0.6 L Basophils # (Manual) POC ABG pH POC ABG pCO2 28.6 L POC ABG pO2 112 H Sodium Potassium Chloride Carbon Dioxide 14 L BUN 45 H Creatinine 2.8 H Glucose 211 H POC Glucose Hemoglobin A1c Calcium 8.0 L Phosphorus Magnesium AST Alkaline Phosphatase Total Protein Albumin Urine Total Protein 06/03/17 06/03/17 06/03/17 06:00 10:20 13:43 WBC RBC Hgb Hct MCH RDW Plt Count Lymph % (Auto) Cobb % (Auto) Cobb # Seg Neutrophils % Seg Neuts % (Manual) Lymphocytes % (Manual) Basophils % (Manual) Seg Neutrophils # Seg Neutrophils # Man Lymphocytes # (Manual) Basophils # (Manual) POC ABG pH POC ABG pCO2 POC ABG pO2 Sodium Potassium Chloride Carbon Dioxide BUN Creatinine Glucose POC Glucose 224 H 226 H 296 H Hemoglobin A1c Calcium Phosphorus Magnesium AST Alkaline Phosphatase Total Protein Albumin Urine Total Protein 06/03/17 06/03/17 06/03/17 17:38 19:23 20:45 WBC RBC Hgb Hct MCH RDW Plt Count Lymph % (Auto) Cobb % (Auto) Cobb # Seg Neutrophils % Seg Neuts % (Manual) Lymphocytes % (Manual) Basophils % (Manual) Seg Neutrophils # Seg Neutrophils # Man Lymphocytes # (Manual) Basophils # (Manual) POC ABG pH POC ABG pCO2 POC ABG pO2 Sodium Potassium Chloride Carbon Dioxide BUN Creatinine Glucose POC Glucose 295 H 275 H 338 H Hemoglobin A1c Calcium Phosphorus Magnesium AST Alkaline Phosphatase Total Protein Albumin Urine Total Protein 06/03/17 06/03/17 06/04/17 21:50 23:08 00:16 WBC RBC Hgb Hct MCH RDW Plt Count Lymph % (Auto) Cobb % (Auto) Cobb # Seg Neutrophils % Seg Neuts % (Manual) Lymphocytes % (Manual) Basophils % (Manual) Seg Neutrophils # Seg Neutrophils # Man Lymphocytes # (Manual) Basophils # (Manual) POC ABG pH POC ABG pCO2 POC ABG pO2 Sodium Potassium Chloride Carbon Dioxide BUN Creatinine Glucose POC Glucose 223 H 214 H 226 H Hemoglobin A1c Calcium Phosphorus Magnesium AST Alkaline Phosphatase Total Protein Albumin Urine Total Protein 06/04/17 06/04/17 06/04/17 01:05 02:07 03:27 WBC RBC Hgb Hct MCH RDW Plt Count Lymph % (Auto) Cobb % (Auto) Cobb # Seg Neutrophils % Seg Neuts % (Manual) Lymphocytes % (Manual) Basophils % (Manual) Seg Neutrophils # Seg Neutrophils # Man Lymphocytes # (Manual) Basophils # (Manual) POC ABG pH POC ABG pCO2 POC ABG pO2 Sodium Potassium Chloride Carbon Dioxide BUN Creatinine Glucose POC Glucose 217 H 229 H 185 H Hemoglobin A1c Calcium Phosphorus Magnesium AST Alkaline Phosphatase Total Protein Albumin Urine Total Protein 06/04/17 06/04/17 06/04/17 03:52 04:05 04:05 WBC 19.6 H RBC Hgb Hct MCH 26 L RDW 15.6 H Plt Count 564 H Lymph % (Auto) 7.3 L Cobb % (Auto) 10.8 H Cobb # 2.1 H Seg Neutrophils % 81.4 H Seg Neuts % (Manual) Lymphocytes % (Manual) Basophils % (Manual) Seg Neutrophils # 15.9 H Seg Neutrophils # Man Lymphocytes # (Manual) Basophils # (Manual) POC ABG pH POC ABG pCO2 POC ABG pO2 Sodium Potassium Chloride Carbon Dioxide 17 L BUN 52 H Creatinine 2.5 H Glucose 163 H POC Glucose 181 H Hemoglobin A1c Calcium 7.9 L Phosphorus Magnesium AST Alkaline Phosphatase Total Protein Albumin Urine Total Protein 06/04/17 06/04/1718 04:56 05:39 06:12 WBC RBC Hgb Hct MCH RDW Plt Count Lymph % (Auto) Cobb % (Auto) Cobb # Seg Neutrophils % Seg Neuts % (Manual) Lymphocytes % (Manual) Basophils % (Manual) Seg Neutrophils # Seg Neutrophils # Man Lymphocytes # (Manual) Basophils # (Manual) POC ABG pH 7.486 H POC ABG pCO2 26.8 L POC ABG pO2 Sodium Potassium Chloride Carbon Dioxide BUN Creatinine Glucose POC Glucose 208 H 225 H Hemoglobin A1c Calcium Phosphorus Magnesium AST Alkaline Phosphatase Total Protein Albumin Urine Total Protein 06/04/17 06/04/17 06/04/17 07:07 08:06 09:15 WBC RBC Hgb Hct MCH RDW Plt Count Lymph % (Auto) Cobb % (Auto) Cobb # Seg Neutrophils % Seg Neuts % (Manual) Lymphocytes % (Manual) Basophils % (Manual) Seg Neutrophils # Seg Neutrophils # Man Lymphocytes # (Manual) Basophils # (Manual) POC ABG pH POC ABG pCO2 POC ABG pO2 Sodium Potassium Chloride Carbon Dioxide BUN Creatinine Glucose POC Glucose 201 H 171 H 178 H Hemoglobin A1c Calcium Phosphorus Magnesium AST Alkaline Phosphatase Total Protein Albumin Urine Total Protein 06/04/17 06/04/17 10:16 12:22 WBC RBC Hgb Hct MCH RDW Plt Count Lymph % (Auto) Cobb % (Auto) Cobb # Seg Neutrophils % Seg Neuts % (Manual) Lymphocytes % (Manual) Basophils % (Manual) Seg Neutrophils # Seg Neutrophils # Man Lymphocytes # (Manual) Basophils # (Manual) POC ABG pH POC ABG pCO2 POC ABG pO2 Sodium Potassium Chloride Carbon Dioxide BUN Creatinine Glucose POC Glucose 191 H 188 H Hemoglobin A1c Calcium Phosphorus Magnesium AST Alkaline Phosphatase Total Protein Albumin Urine Total Protein Chest x-ray: report reviewed, image reviewed
--- NOTE | 2017-06-04 17:21 | Progress Note ---
Assessment and Plan - Patient Problems (1) Acute renal failure with tubular necrosis Current Visit: Yes Status: Acute Plan to address problem: most likely ATN s/p PEA arrest superimposed on CKD/diabetic nephropathy. Echocardiogram shows 4 chamber dilated cardiomyopathy with LVEF 15-20%. acute cardiorenal syndrome contributing to JERRI pt remains non-oliguric, responding to diuretic therapy supportive care for JERRI/ATN avoid nephrotoxins, NSAIDs, IV contrast will monitor lytes/renal parameters and make further recommendations (2) Acute respiratory failure Current Visit: Yes Status: Acute Qualifiers: Respiratory failure complication: hypoxia Qualified Code(s): J96.01 - Acute respiratory failure with hypoxia Plan to address problem: vent management as per pulm/CCM (3) Hyperosmolar non-ketotic state in patient with type 2 diabetes mellitus Current Visit: Yes Status: Acute Plan to address problem: glucose control improved, management as per primary attending (4) Seizure Current Visit: Yes Status: Acute Plan to address problem: neuro following (5) Proteinuria Current Visit: Yes Status: Acute Plan to address problem: likely due to underlying diabetic nephropathy. check urine protein/cr ratio. hold ARAM-I/ARB for now given JERRI (6) Hypertension Current Visit: Yes Status: Acute Qualifiers: Hypertension type: essential hypertension Qualified Code(s): I10 - Essential (primary) hypertension Plan to address problem: monitor BP on current meds (7) Acute systolic heart failure Current Visit: Yes Status: Acute Plan to address problem: Echocardiogram shows 4 chamber dilated cardiomyopathy with LVEF 15-20%. acute cardiorenal syndrome contributing to JERRI. cont IV diuresis with lasix 40mg bid to target net negative fluid balance Subjective Date of service: 06/04/17 Principal diagnosis: Acute respiratory failure Interval history: pt remains on vent, unresponsive Objective - Vital Signs Vital signs: Vital Signs - 12hr 06/04/17 06/04/17 06/04/17 05:20 05:30 05:40 Temperature Pulse Rate 109 H 94 H 94 H Pulse Rate [ Right Dorsalis Pedis] Respiratory 19 16 18 Rate Blood Pressure 150/91 160/94 150/91 O2 Sat by Pulse 100 100 100 Oximetry 06/04/17 06/04/17 06/04/17 05:50 06:00 06:10 Temperature Pulse Rate 94 H 96 H 96 H Pulse Rate [ Right Dorsalis Pedis] Respiratory 18 18 16 Rate Blood Pressure 150/91 155/91 160/94 O2 Sat by Pulse 100 100 100 Oximetry 06/04/17 06/04/17 06/04/17 06:20 06:30 06:40 Temperature Pulse Rate 93 H 99 H 103 H Pulse Rate [ Right Dorsalis Pedis] Respiratory 19 20 21 Rate Blood Pressure 160/94 161/99 161/99 O2 Sat by Pulse 100 100 100 Oximetry 06/04/17 06/04/17 06/04/17 06:50 07:00 07:10 Temperature Pulse Rate 98 H 100 H 103 H Pulse Rate [ Right Dorsalis Pedis] Respiratory 15 19 21 Rate Blood Pressure 161/99 161/99 173/104 O2 Sat by Pulse 100 100 100 Oximetry 06/04/17 06/04/17 06/04/17 07:20 07:30 07:33 Temperature Pulse Rate 98 H 102 H 101 H Pulse Rate [ Right Dorsalis Pedis] Respiratory 19 21 Rate Blood Pressure 173/104 174/99 173/104 O2 Sat by Pulse 100 100 Oximetry 06/04/17 06/04/17 06/04/17 07:40 07:50 08:00 Temperature 97.7 F Pulse Rate 113 H 109 H 109 H Pulse Rate [ 109 H Right Dorsalis Pedis] Respiratory 22 20 19 Rate Blood Pressure 179/97 179/97 157/84 O2 Sat by Pulse 100 100 100 Oximetry 06/04/17 06/04/17 06/04/17 08:10 08:20 08:30 Temperature Pulse Rate 111 H 111 H 107 H Pulse Rate [ Right Dorsalis Pedis] Respiratory 20 19 17 Rate Blood Pressure 157/84 157/84 149/82 O2 Sat by Pulse 100 100 100 Oximetry 06/04/17 06/04/17 06/04/17 08:38 08:40 08:50 Temperature Pulse Rate 100 H 103 H 114 H Pulse Rate [ Right Dorsalis Pedis] Respiratory 15 20 Rate Blood Pressure 149/82 149/82 149/82 O2 Sat by Pulse 100 100 100 Oximetry 06/04/17 06/04/17 06/04/17 09:00 09:10 09:20 Temperature Pulse Rate 102 H 102 H 102 H Pulse Rate [ Right Dorsalis Pedis] Respiratory 15 18 16 Rate Blood Pressure 147/80 149/82 149/82 O2 Sat by Pulse 100 100 100 Oximetry 06/04/17 06/04/17 06/04/17 09:30 09:40 09:42 Temperature Pulse Rate 100 H 104 H 95 H Pulse Rate [ Right Dorsalis Pedis] Respiratory 16 19 Rate Blood Pressure 143/80 143/80 143/80 O2 Sat by Pulse 100 100 Oximetry 06/04/17 06/04/17 06/04/17 09:50 10:00 10:10 Temperature Pulse Rate 113 H 105 H 96 H Pulse Rate [ 105 H Right Dorsalis Pedis] Respiratory 19 17 15 Rate Blood Pressure 143/80 162/87 143/80 O2 Sat by Pulse 100 100 100 Oximetry 06/04/17 06/04/17 06/04/17 10:20 10:30 10:40 Temperature Pulse Rate 93 H 89 86 Pulse Rate [ Right Dorsalis Pedis] Respiratory 13 16 17 Rate Blood Pressure 143/80 125/70 162/87 O2 Sat by Pulse 100 100 100 Oximetry 06/04/17 06/04/17 06/04/17 10:50 11:00 11:10 Temperature Pulse Rate 88 96 H 85 Pulse Rate [ Right Dorsalis Pedis] Respiratory 18 21 19 Rate Blood Pressure 162/87 126/78 126/78 O2 Sat by Pulse 100 100 100 Oximetry 06/04/17 06/04/17 06/04/17 11:20 11:30 11:40 Temperature Pulse Rate 85 94 H 92 H Pulse Rate [ Right Dorsalis Pedis] Respiratory 14 20 19 Rate Blood Pressure 126/78 130/77 130/77 O2 Sat by Pulse 100 100 100 Oximetry 06/04/17 06/04/17 06/04/17 11:44 11:50 12:00 Temperature 97.7 F Pulse Rate 92 H 89 90 Pulse Rate [ 90 Right Dorsalis Pedis] Respiratory 15 16 Rate Blood Pressure 130/77 130/77 128/76 O2 Sat by Pulse 100 100 100 Oximetry 06/04/17 06/04/17 06/04/17 12:10 12:20 12:30 Temperature Pulse Rate 91 H 91 H 97 H Pulse Rate [ Right Dorsalis Pedis] Respiratory 15 18 19 Rate Blood Pressure 128/76 128/76 137/88 O2 Sat by Pulse 100 100 100 Oximetry 06/04/17 06/04/17 06/04/17 12:40 12:50 13:00 Temperature Pulse Rate 99 H 88 87 Pulse Rate [ Right Dorsalis Pedis] Respiratory 18 18 18 Rate Blood Pressure 137/88 137/88 133/79 O2 Sat by Pulse 100 100 100 Oximetry 06/04/17 06/04/17 06/04/17 13:10 13:20 13:30 Temperature Pulse Rate 84 84 83 Pulse Rate [ Right Dorsalis Pedis] Respiratory 17 14 14 Rate Blood Pressure 133/79 133/79 130/75 O2 Sat by Pulse 100 100 100 Oximetry 06/04/17 06/04/17 06/04/17 13:40 13:50 14:00 Temperature Pulse Rate 86 85 88 Pulse Rate [ Right Dorsalis Pedis] Respiratory 15 14 18 Rate Blood Pressure 130/75 130/75 144/85 O2 Sat by Pulse 100 100 100 Oximetry 06/04/17 06/04/17 06/04/17 14:05 14:10 14:20 Temperature Pulse Rate 86 88 Pulse Rate [ 88 Right Dorsalis Pedis] Respiratory 18 15 17 Rate Blood Pressure 144/85 144/85 O2 Sat by Pulse 100 100 100 Oximetry 06/04/17 06/04/17 06/04/17 14:30 14:40 14:50 Temperature Pulse Rate 86 86 99 H Pulse Rate [ Right Dorsalis Pedis] Respiratory 15 14 21 Rate Blood Pressure 146/89 146/89 146/89 O2 Sat by Pulse 100 100 100 Oximetry 06/04/17 06/04/17 06/04/17 15:00 15:10 15:21 Temperature Pulse Rate 94 H 100 H 89 Pulse Rate [ Right Dorsalis Pedis] Respiratory 18 18 18 Rate Blood Pressure 146/89 143/89 O2 Sat by Pulse 100 100 100 Oximetry 06/04/17 06/04/17 06/04/17 15:30 15:41 15:51 Temperature Pulse Rate 90 93 H 91 H Pulse Rate [ Right Dorsalis Pedis] Respiratory 16 16 19 Rate Blood Pressure 143/87 143/87 143/87 O2 Sat by Pulse 100 100 100 Oximetry 06/04/17 06/04/17 06/04/17 16:00 16:07 16:11 Temperature 97.3 F L Pulse Rate 92 H 101 H 92 H Pulse Rate [ 92 H Right Dorsalis Pedis] Respiratory 18 475 H 18 Rate Blood Pressure 155/95 155/95 155/95 O2 Sat by Pulse 100 100 100 Oximetry 06/04/17 06/04/17 06/04/17 16:21 16:30 16:41 Temperature Pulse Rate 93 H 90 89 Pulse Rate [ Right Dorsalis Pedis] Respiratory 15 14 15 Rate Blood Pressure 155/95 151/88 151/88 O2 Sat by Pulse 100 100 100 Oximetry 06/04/17 06/04/17 16:51 17:00 Temperature Pulse Rate 91 H 99 H Pulse Rate [ Right Dorsalis Pedis] Respiratory 14 17 Rate Blood Pressure 151/88 167/101 O2 Sat by Pulse 100 100 Oximetry - General Appearance General appearance: well-developed, well-nourished, appears stated age, intubated EENT: ATNC, mucous membranes moist Neck: no JVD Respiratory: Present: Decreased Breath Sounds Cardiology: regular, S1S2 Gastrointestinal: normoactive bowel sounds Integumentary: no rash, other (++ edema b/l LE ) - Lab 06/04/17 04:05 06/04/17 04:05 Most recent lab results Calcium 7.9 mg/dL (8.4-10.2) L 06/04/17 04:05 Phosphorus 4.60 mg/dL (2.5-4.5) H 06/02/17 04:24 Magnesium 1.50 mg/dL (1.7-2.3) L 06/02/17 04:24 Urine Creatinine < 4.2 mg/dL (0.1-20.0) 06/02/17 10:18 Urine Sodium 10 mmol/L 06/02/17 10:18 Urine Total Protein < 4 mg/dL (5-11.8) L 06/02/17 10:18
--- NOTE | 2017-06-04 17:42 | Consultation ---
History of Present Illness Consult date: 06/04/17 Requesting physician: LUIZ DICKEY Reason for Consult: coma Chief complaint: coma, hx of seizures History of present illness: This 36-year-old right-handed -[place] female per hospitalist in ER on admission 05/30/17: "history of hypertension diabetes and seizure disorder was brought to the emergency room after sustaining 2 episodes of grand mal type seizures. Patient in emergency room was quite agitated. In spite of Ativan she kind of remained agitated and it was felt by ER physician that she needed a head CT of the chest but due to agitation it could not be performed. In order to protect her airway she was intubated. However during intubation patient sustained PEA arrest was resuscitated CPR was done for approximately 5 minutes or so. Patient is now intubated and being mechanically ventilated." According to her mother, the patient's daughter said she had a seizure on the toilet and fell over and called to her daughter called 911. They said to call back only if she had a second seizure which she did later and 911 was called again. She had upper body jerking according to her mother in the emergency room and had a cardiac arrest at the time of intubation as noted lasting 6 minutes they were told. She has not waked up since although she opens her eyes. Seizures began about a month ago associated with hyperglycemia for which she was placed on Keppra at the emergency room here. Patient has also had recent hypertension. She has a history of diabetes. MRI shows cortical rim positive diffusion indicating hypoxic ischemic damage more on the right than the left which I reviewed with her parents today. Past History Past Medical History: diabetes, hypertension, seizures Social history: no significant social history, other (some marijuana to help gastroparesis.). denies: smoking, alcohol abuse (as one drink per month her mother estimates.), prescription drug abuse, IV drug use Family history: no significant family history, diabetes (both sides family), hypertension (both sides of family), stroke (mother), other (epilepsy in paternal first cousin and a first cousin wants removed on maternal side) Medications and Allergies Allergies Allergy/AdvReac Type Severity Reaction Status Date / Time lisinopril Allergy Angioedema Verified 12/30/16 12:06 Home Medications Medication Instructions Recorded Confirmed Last Taken Type Insulin Regular, Human [Novolin R] 22 units SQ AC 30 Days vial 01/01/17 Unknown Rx Bumetanide [Bumetanide 2 mg tab] 2 mg PO DAILY 06/02/17 06/02/17 Unknown History Carvedilol [Coreg] 6.25 mg PO BID 06/02/17 06/02/17 Unknown History Dicyclomine [Bentyl] 1 cap PO BID PRN 06/02/17 06/02/17 Unknown History Furosemide [Lasix TAB] 40 mg PO QDAY 06/02/17 06/02/17 Unknown History HYDROcodone/APAP 5-325 1 - 2 tab PO Q6HR PRN 06/02/17 06/02/17 Unknown History Metoclopramide [Reglan TAB] 1 tab PO Q6HR 06/02/17 06/02/17 Unknown History Pantoprazole [Protonix] 40 mg PO QDAY 06/02/17 06/02/17 Unknown History Valsartan/Hydrochlorothiazide 1 tab PO DAILY 06/02/17 06/02/17 Unknown History [Valsartan-Hctz 160-12.5 mg Tab] Active Meds: Active Medications Acetaminophen (Tylenol) 650 mg FEEDTUBE Q6H PRN PRN Reason: Pain, Mild (1-3) Last Admin: 05/30/17 22:44 Dose: 650 mg Lipase/Protease/Amylase (Anil Dr 10,500 Unit) 1 each FEEDTUBE PRN PRN PRN Reason: For Clogged Feeding Tube Carvedilol (Coreg) 25 mg PO BID [facility] Last Admin: 06/04/17 09:42 Dose: 25 mg Dextrose (D50w (25gm) Syringe) 0 ml IV PRN PRN PRN Reason: Hypoglycemia Last Admin: 05/31/17 15:20 Dose: 50 ml Dextrose (D50w (25gm) Syringe) 50 ml IV PRN PRN PRN Reason: Hypoglycemia Enoxaparin Sodium (Lovenox) 30 mg SUB-Q Q24HR [facility] Last Admin: 06/04/17 09:44 Dose: 30 mg Famotidine (Pepcid) 20 mg PO DAILY [facility] Last Admin: 06/04/17 09:42 Dose: 20 mg Furosemide (Lasix) 40 mg IV 0600,1800 [facility] Last Admin: 06/04/17 05:14 Dose: 40 mg Hydralazine HCl (Apresoline) 10 mg IV Q6HR PRN PRN Reason: Hypertension Last Admin: 06/04/17 07:33 Dose: 10 mg Hydrophilic Ointment (Vaseline Lip Therapy) 1 applic TP Q2HR PRN PRN Reason: Dry Lips Last Admin: 06/02/17 17:03 Dose: 1 applic Insulin Human Regular 100 (units/ Sodium Chloride) 100 mls @ 1 mls/hr IV TITR [facility]; Protocol Last Titration: 06/04/17 10:27 Dose: 0 units/hr, 0 mls/hr Insulin Human Isoph/Insulin Regular (Humulin 70/30) 15 unit SUB-Q BID [facility] Last Admin: 06/04/17 10:18 Dose: 15 unit Insulin Human Lispro (Humalog) 0 unit SUB-Q Q6HR [facility]; Protocol Last Admin: 06/04/17 12:35 Dose: 2 unit Levetiracetam (Keppra) 750 mg PO BID [facility] Last Admin: 06/04/17 09:43 Dose: 750 mg Memantine (Namenda) 5 mg PO Q12H [facility] Multi-Ingred Cream/Lotion/Oil/Oint (Artificial Tears Ophth Oint) 1 applic OU Q4HR PRN PRN Reason: Dry Eye(s) Last Admin: 06/03/17 22:17 Dose: 1 applic Simple Syrup (Simple Syrup) 15 ml FEEDTUBE PRN PRN PRN Reason: Hypoglycemia Simple Syrup (Simple Syrup) 30 ml FEEDTUBE PRN PRN PRN Reason: Hypoglycemia Sodium Bicarbonate (Sodium Bicarbonate) 325 mg FEEDTUBE PRN PRN PRN Reason: For Clogged Feeding Tube Sodium Chloride (Nacl 0.9% 500 Ml) 1 ml IV DIRECT [facility] Review of Systems All systems: negative (no headaches, some dizziness from medications, no snoring or memory problems) Physical Examination - Vital Signs Vital Signs: Vital Signs Pulse Resp 101 H 23 05/30/17 06:58 05/30/17 06:58 - Physical Exam Narrative exam: General Appearance: well developed but obese (per BMI) mid 30s -[place] female in [facility], orally intubated. HEENT: atraumatic, normocephalic; no bruits, 2+ Brock without soreness or induration or enlargement, sclerae nonicteric. Oropharynx pink and moist. Neck: supple, no bruits. Heart: no murmur or extra sounds. Extremities: no clubbing or cyanosis but 2+ pretibial edema. 2+ dorsalis pedis pulses bilaterally. Neurologic Exam: Mental Status: Eyes open spontaneously but not clearly to voice or pain and no obedience of commands. Cranial Nerves: No blink to threat, no papilledema but exudates on the left and possible retinal hemorrhage right, cannot assess venous pulsations, pupils are about 2 mm with more sluggish reaction on the right than left, EOMs roving but not tracking, positive doll's eyes, no response to pinprick, corneals are positive, no grimace to supraorbital pressure or TMJ pressure, cannot reach back of throat was suctioned to test gag, cough reflex is triggered by tracheal suction, tongue does not protrude to command. Cerebellar: Cannot assess. Sensory: No response to an nail bed pressure or local pinch or pinprick. Motor Exam Upper Extremities: Decerebrate to supraorbital pressure especially on the right, tone is normal. No withdrawal to nail bed pressure or palmar rub. No atrophy or fasciculations are noted visually. Motor Exam Lower Extremities: Decerebrate to supraorbital pressure. Tone is normal. No atrophy or fasciculations are noted visually. No withdrawal to nail bed pressure but slightly only for great toes to plantar rub though a few hours later when I reexamined her and she seems to have some wiggling of toes slightly to command, on 2 different testings. Reflexes: Palmomental, snout and jaw jerk are negative. Triceps are 1, biceps and brachioradialis are 0 bilaterally. Fidelia's is negative bilaterally. Knee jerks and ankle jerks are 0 bilaterally without clonus. Toes are upgoing bilaterally to Babinski testing. Results - Laboratory Findings CBC and BMP: 06/04/17 04:05 06/04/17 04:05 Abnormal Lab Findings: Abnormal Labs 05/30/17 05/30/17 05/30/17 07:48 07:48 08:32 WBC 11.5 H RBC Hgb Hct MCH 27 L RDW 16.3 H Plt Count Lymph % (Auto) Moffat % (Auto) Moffat # Seg Neutrophils % Seg Neuts % (Manual) Lymphocytes % (Manual) Basophils % (Manual) Seg Neutrophils # Seg Neutrophils # Man Lymphocytes # (Manual) Basophils # (Manual) POC ABG pH POC ABG pCO2 POC ABG pO2 Sodium 133 L Potassium Chloride 89.9 L Carbon Dioxide BUN 27 H Creatinine 2.0 H Glucose 741 H* POC Glucose > 500 H Hemoglobin A1c Calcium Phosphorus Magnesium AST Alkaline Phosphatase Total Protein Albumin Urine Total Protein 05/30/17 05/30/17 05/30/17 08:59 08:59 16:08 WBC 14.5 H RBC Hgb Hct MCH RDW 16.0 H Plt Count Lymph % (Auto) Moffat % (Auto) Moffat # Seg Neutrophils % Seg Neuts % (Manual) 95.0 H Lymphocytes % (Manual) 2.0 L Basophils % (Manual) 2.0 H Seg Neutrophils # Seg Neutrophils # Man 13.8 H Lymphocytes # (Manual) 0.3 L Basophils # (Manual) 0.3 H POC ABG pH POC ABG pCO2 POC ABG pO2 Sodium 134 L 135 L Potassium 3.2 L Chloride 90.8 L 93.6 L Carbon Dioxide BUN 28 H 30 H Creatinine 2.0 H 2.1 H Glucose 742 H* 567 H* POC Glucose Hemoglobin A1c Calcium Phosphorus Magnesium AST Alkaline Phosphatase 246 H Total Protein 5.6 L Albumin 2.9 L Urine Total Protein 05/30/17 05/30/17 05/30/17 16:35 17:55 18:59 WBC RBC Hgb Hct MCH RDW Plt Count Lymph % (Auto) Moffat % (Auto) Moffat # Seg Neutrophils % Seg Neuts % (Manual) Lymphocytes % (Manual) Basophils % (Manual) Seg Neutrophils # Seg Neutrophils # Man Lymphocytes # (Manual) Basophils # (Manual) POC ABG pH 7.544 H POC ABG pCO2 32.0 L POC ABG pO2 155 H Sodium Potassium 3.1 L Chloride 93.9 L Carbon Dioxide BUN 30 H Creatinine 2.0 H Glucose 561 H* POC Glucose 497 H Hemoglobin A1c Calcium Phosphorus Magnesium AST Alkaline Phosphatase Total Protein Albumin Urine Total Protein 05/30/17 05/30/17 05/30/17 19:31 19:31 21:38 WBC RBC Hgb Hct MCH RDW Plt Count Lymph % (Auto) Moffat % (Auto) Moffat # Seg Neutrophils % Seg Neuts % (Manual) Lymphocytes % (Manual) Basophils % (Manual) Seg Neutrophils # Seg Neutrophils # Man Lymphocytes # (Manual) Basophils # (Manual) POC ABG pH POC ABG pCO2 POC ABG pO2 Sodium 135 L Potassium 2.9 L* Chloride 93.8 L 95.4 L Carbon Dioxide 20 L BUN 29 H 30 H Creatinine 2.2 H 2.3 H Glucose 478 H 364 H POC Glucose Hemoglobin A1c Calcium Phosphorus 2.20 L D Magnesium 1.40 L AST 42 H Alkaline Phosphatase 177 H Total Protein 5.4 L Albumin 2.4 L Urine Total Protein 05/30/17 05/31/17 05/31/17 23:06 02:17 05:27 WBC RBC Hgb Hct MCH RDW Plt Count Lymph % (Auto) Moffat % (Auto) Moffat # Seg Neutrophils % Seg Neuts % (Manual) Lymphocytes % (Manual) Basophils % (Manual) Seg Neutrophils # Seg Neutrophils # Man Lymphocytes # (Manual) Basophils # (Manual) POC ABG pH 7.489 H POC ABG pCO2 POC ABG pO2 Sodium Potassium 3.2 L 3.5 L Chloride Carbon Dioxide BUN 30 H 31 H Creatinine 2.5 H 2.4 H Glucose 288 H 246 H POC Glucose Hemoglobin A1c Calcium 8.3 L Phosphorus Magnesium AST Alkaline Phosphatase Total Protein Albumin Urine Total Protein 05/31/17 05/31/17 05/31/17 05:45 05:45 05:45 WBC RBC Hgb Hct MCH RDW Plt Count Lymph % (Auto) Moffat % (Auto) Moffat # Seg Neutrophils % Seg Neuts % (Manual) Lymphocytes % (Manual) Basophils % (Manual) Seg Neutrophils # Seg Neutrophils # Man Lymphocytes # (Manual) Basophils # (Manual) POC ABG pH POC ABG pCO2 POC ABG pO2 Sodium Potassium Chloride Carbon Dioxide BUN 32 H 30 H Creatinine 2.5 H 2.6 H Glucose 266 H 271 H POC Glucose Hemoglobin A1c 9.7 H Calcium 8.3 L 8.2 L Phosphorus Magnesium AST Alkaline Phosphatase 145 H Total Protein 4.7 L Albumin 1.8 L Urine Total Protein 05/31/17 05/31/17 05/31/17 08:18 09:20 12:18 WBC RBC Hgb Hct MCH RDW Plt Count Lymph % (Auto) Moffat % (Auto) Moffat # Seg Neutrophils % Seg Neuts % (Manual) Lymphocytes % (Manual) Basophils % (Manual) Seg Neutrophils # Seg Neutrophils # Man Lymphocytes # (Manual) Basophils # (Manual) POC ABG pH POC ABG pCO2 POC ABG pO2 Sodium Potassium Chloride Carbon Dioxide BUN Creatinine Glucose POC Glucose 300 H 254 H 170 H Hemoglobin A1c Calcium Phosphorus Magnesium AST Alkaline Phosphatase Total Protein Albumin Urine Total Protein 05/31/17 05/31/17 05/31/17 14:09 14:17 14:27 WBC RBC Hgb Hct MCH RDW Plt Count Lymph % (Auto) Moffat % (Auto) Moffat # Seg Neutrophils % Seg Neuts % (Manual) Lymphocytes % (Manual) Basophils % (Manual) Seg Neutrophils # Seg Neutrophils # Man Lymphocytes # (Manual) Basophils # (Manual) POC ABG pH POC ABG pCO2 POC ABG pO2 Sodium Potassium 3.4 L Chloride 107.1 H Carbon Dioxide BUN 30 H Creatinine 2.6 H Glucose 38 L* POC Glucose < 40 L 189 H Hemoglobin A1c Calcium 7.6 L Phosphorus Magnesium AST Alkaline Phosphatase Total Protein Albumin Urine Total Protein 05/31/17 05/31/17 05/31/17 15:01 16:01 17:19 WBC RBC Hgb Hct MCH RDW Plt Count Lymph % (Auto) Moffat % (Auto) Moffat # Seg Neutrophils % Seg Neuts % (Manual) Lymphocytes % (Manual) Basophils % (Manual) Seg Neutrophils # Seg Neutrophils # Man Lymphocytes # (Manual) Basophils # (Manual) POC ABG pH POC ABG pCO2 POC ABG pO2 Sodium Potassium Chloride Carbon Dioxide BUN Creatinine Glucose POC Glucose 130 H 165 H 131 H Hemoglobin A1c Calcium Phosphorus Magnesium AST Alkaline Phosphatase Total Protein Albumin Urine Total Protein 05/31/17 05/31/17 05/31/17 18:46 19:54 20:36 WBC RBC Hgb Hct MCH RDW Plt Count Lymph % (Auto) Moffat % (Auto) Moffat # Seg Neutrophils % Seg Neuts % (Manual) Lymphocytes % (Manual) Basophils % (Manual) Seg Neutrophils # Seg Neutrophils # Man Lymphocytes # (Manual) Basophils # (Manual) POC ABG pH POC ABG pCO2 POC ABG pO2 Sodium Potassium Chloride Carbon Dioxide BUN 29 H Creatinine 2.4 H Glucose 124 H POC Glucose 128 H 157 H Hemoglobin A1c Calcium 7.9 L Phosphorus Magnesium AST Alkaline Phosphatase Total Protein Albumin Urine Total Protein 05/31/17 06/01/17 06/01/17 21:41 03:22 04:06 WBC RBC Hgb Hct MCH RDW Plt Count Lymph % (Auto) Moffat % (Auto) Moffat # Seg Neutrophils % Seg Neuts % (Manual) Lymphocytes % (Manual) Basophils % (Manual) Seg Neutrophils # Seg Neutrophils # Man Lymphocytes # (Manual) Basophils # (Manual) POC ABG pH POC ABG pCO2 POC ABG pO2 Sodium Potassium Chloride Carbon Dioxide 19 L BUN 29 H Creatinine 2.6 H Glucose 205 H POC Glucose 158 H 251 H Hemoglobin A1c Calcium 7.8 L Phosphorus Magnesium AST Alkaline Phosphatase Total Protein Albumin Urine Total Protein 06/01/17 06/01/17 06/01/17 04:30 09:15 09:59 WBC 19.7 H RBC Hgb 10.0 L Hct MCH 27 L RDW 17.1 H Plt Count Lymph % (Auto) Moffat % (Auto) Moffat # Seg Neutrophils % Seg Neuts % (Manual) Lymphocytes % (Manual) Basophils % (Manual) Seg Neutrophils # Seg Neutrophils # Man Lymphocytes # (Manual) Basophils # (Manual) POC ABG pH 7.464 H POC ABG pCO2 31.3 L POC ABG pO2 Sodium Potassium Chloride Carbon Dioxide BUN Creatinine Glucose POC Glucose 330 H Hemoglobin A1c Calcium Phosphorus Magnesium AST Alkaline Phosphatase Total Protein Albumin Urine Total Protein 06/01/17 06/01/17 06/01/17 11:36 12:25 13:43 WBC RBC Hgb Hct MCH RDW Plt Count Lymph % (Auto) Moffat % (Auto) Moffat # Seg Neutrophils % Seg Neuts % (Manual) Lymphocytes % (Manual) Basophils % (Manual) Seg Neutrophils # Seg Neutrophils # Man Lymphocytes # (Manual) Basophils # (Manual) POC ABG pH POC ABG pCO2 POC ABG pO2 Sodium Potassium Chloride Carbon Dioxide BUN Creatinine Glucose POC Glucose 431 H 434 H 445 H Hemoglobin A1c Calcium Phosphorus Magnesium AST Alkaline Phosphatase Total Protein Albumin Urine Total Protein 06/01/17 06/01/17 06/01/17 14:26 15:46 16:03 WBC RBC Hgb Hct MCH RDW Plt Count Lymph % (Auto) Moffat % (Auto) Moffat # Seg Neutrophils % Seg Neuts % (Manual) Lymphocytes % (Manual) Basophils % (Manual) Seg Neutrophils # Seg Neutrophils # Man Lymphocytes # (Manual) Basophils # (Manual) POC ABG pH POC ABG pCO2 POC ABG pO2 Sodium Potassium Chloride Carbon Dioxide BUN Creatinine Glucose POC Glucose 310 H 292 H 244 H Hemoglobin A1c Calcium Phosphorus Magnesium AST Alkaline Phosphatase Total Protein Albumin Urine Total Protein 06/01/17 06/01/17 06/01/17 16:59 17:49 19:05 WBC RBC Hgb Hct MCH RDW Plt Count Lymph % (Auto) Moffat % (Auto) Moffat # Seg Neutrophils % Seg Neuts % (Manual) Lymphocytes % (Manual) Basophils % (Manual) Seg Neutrophils # Seg Neutrophils # Man Lymphocytes # (Manual) Basophils # (Manual) POC ABG pH POC ABG pCO2 POC ABG pO2 Sodium Potassium Chloride Carbon Dioxide BUN Creatinine Glucose POC Glucose 260 H 203 H 156 H Hemoglobin A1c Calcium Phosphorus Magnesium AST Alkaline Phosphatase Total Protein Albumin Urine Total Protein 06/02/17 06/02/17 06/02/17 00:09 01:06 02:31 WBC RBC Hgb Hct MCH RDW Plt Count Lymph % (Auto) Moffat % (Auto) Moffat # Seg Neutrophils % Seg Neuts % (Manual) Lymphocytes % (Manual) Basophils % (Manual) Seg Neutrophils # Seg Neutrophils # Man Lymphocytes # (Manual) Basophils # (Manual) POC ABG pH POC ABG pCO2 POC ABG pO2 Sodium Potassium Chloride Carbon Dioxide BUN Creatinine Glucose POC Glucose 137 H 146 H 182 H Hemoglobin A1c Calcium Phosphorus Magnesium AST Alkaline Phosphatase Total Protein Albumin Urine Total Protein 06/02/17 06/02/17 06/02/17 04:03 04:24 04:24 WBC 21.0 H RBC 3.62 L Hgb Hct 29.6 L MCH RDW 16.5 H Plt Count Lymph % (Auto) Moffat % (Auto) Moffat # Seg Neutrophils % Seg Neuts % (Manual) 98.0 H Lymphocytes % (Manual) 1.0 L Basophils % (Manual) Seg Neutrophils # Seg Neutrophils # Man 20.6 H Lymphocytes # (Manual) 0.2 L Basophils # (Manual) POC ABG pH POC ABG pCO2 POC ABG pO2 Sodium Potassium Chloride Carbon Dioxide 20 L BUN 36 H Creatinine 2.8 H Glucose 137 H POC Glucose 150 H Hemoglobin A1c Calcium 7.5 L Phosphorus 4.60 H Magnesium 1.50 L AST Alkaline Phosphatase 132 H Total Protein 4.1 L Albumin 1.7 L Urine Total Protein 06/02/17 06/02/17 06/02/17 05:01 05:14 06:20 WBC RBC Hgb Hct MCH RDW Plt Count Lymph % (Auto) Moffat % (Auto) Moffat # Seg Neutrophils % Seg Neuts % (Manual) Lymphocytes % (Manual) Basophils % (Manual) Seg Neutrophils # Seg Neutrophils # Man Lymphocytes # (Manual) Basophils # (Manual) POC ABG pH 7.517 H POC ABG pCO2 28.4 L POC ABG pO2 67 L Sodium Potassium Chloride Carbon Dioxide BUN Creatinine Glucose POC Glucose 137 H 163 H Hemoglobin A1c Calcium Phosphorus Magnesium AST Alkaline Phosphatase Total Protein Albumin Urine Total Protein 06/02/17 06/02/17 06/02/17 07:43 09:40 10:18 WBC RBC Hgb Hct MCH RDW Plt Count Lymph % (Auto) Moffat % (Auto) Moffat # Seg Neutrophils % Seg Neuts % (Manual) Lymphocytes % (Manual) Basophils % (Manual) Seg Neutrophils # Seg Neutrophils # Man Lymphocytes # (Manual) Basophils # (Manual) POC ABG pH POC ABG pCO2 POC ABG pO2 Sodium Potassium Chloride Carbon Dioxide BUN Creatinine Glucose POC Glucose 135 H 196 H Hemoglobin A1c Calcium Phosphorus Magnesium AST Alkaline Phosphatase Total Protein Albumin Urine Total Protein < 4 L 06/02/17 06/02/17 06/02/17 10:33 11:55 17:39 WBC RBC Hgb Hct MCH RDW Plt Count Lymph % (Auto) Moffat % (Auto) Moffat # Seg Neutrophils % Seg Neuts % (Manual) Lymphocytes % (Manual) Basophils % (Manual) Seg Neutrophils # Seg Neutrophils # Man Lymphocytes # (Manual) Basophils # (Manual) POC ABG pH POC ABG pCO2 POC ABG pO2 Sodium Potassium Chloride Carbon Dioxide BUN Creatinine Glucose POC Glucose 188 H 110 H 150 H Hemoglobin A1c Calcium Phosphorus Magnesium AST Alkaline Phosphatase Total Protein Albumin Urine Total Protein 06/02/17 06/02/17 06/03/17 18:12 21:32 02:02 WBC RBC Hgb Hct MCH RDW Plt Count Lymph % (Auto) Moffat % (Auto) Moffat # Seg Neutrophils % Seg Neuts % (Manual) Lymphocytes % (Manual) Basophils % (Manual) Seg Neutrophils # Seg Neutrophils # Man Lymphocytes # (Manual) Basophils # (Manual) POC ABG pH POC ABG pCO2 POC ABG pO2 Sodium Potassium Chloride Carbon Dioxide BUN Creatinine Glucose POC Glucose 131 H 143 H 191 H Hemoglobin A1c Calcium Phosphorus Magnesium AST Alkaline Phosphatase Total Protein Albumin Urine Total Protein 06/03/17 06/03/17 06/03/17 04:14 04:14 05:06 WBC 21.1 H RBC Hgb Hct MCH 27 L RDW 15.9 H Plt Count 447 H Lymph % (Auto) Moffat % (Auto) Moffat # Seg Neutrophils % Seg Neuts % (Manual) 94.0 H Lymphocytes % (Manual) 3.0 L Basophils % (Manual) Seg Neutrophils # Seg Neutrophils # Man 19.8 H Lymphocytes # (Manual) 0.6 L Basophils # (Manual) POC ABG pH POC ABG pCO2 28.6 L POC ABG pO2 112 H Sodium Potassium Chloride Carbon Dioxide 14 L BUN 45 H Creatinine 2.8 H Glucose 211 H POC Glucose Hemoglobin A1c Calcium 8.0 L Phosphorus Magnesium AST Alkaline Phosphatase Total Protein Albumin Urine Total Protein 06/03/17 06/03/17 06/03/17 06:00 10:20 13:43 WBC RBC Hgb Hct MCH RDW Plt Count Lymph % (Auto) Moffat % (Auto) Moffat # Seg Neutrophils % Seg Neuts % (Manual) Lymphocytes % (Manual) Basophils % (Manual) Seg Neutrophils # Seg Neutrophils # Man Lymphocytes # (Manual) Basophils # (Manual) POC ABG pH POC ABG pCO2 POC ABG pO2 Sodium Potassium Chloride Carbon Dioxide BUN Creatinine Glucose POC Glucose 224 H 226 H 296 H Hemoglobin A1c Calcium Phosphorus Magnesium AST Alkaline Phosphatase Total Protein Albumin Urine Total Protein 06/03/17 06/03/17 06/03/17 17:38 19:23 20:45 WBC RBC Hgb Hct MCH RDW Plt Count Lymph % (Auto) Moffat % (Auto) Moffat # Seg Neutrophils % Seg Neuts % (Manual) Lymphocytes % (Manual) Basophils % (Manual) Seg Neutrophils # Seg Neutrophils # Man Lymphocytes # (Manual) Basophils # (Manual) POC ABG pH POC ABG pCO2 POC ABG pO2 Sodium Potassium Chloride Carbon Dioxide BUN Creatinine Glucose POC Glucose 295 H 275 H 338 H Hemoglobin A1c Calcium Phosphorus Magnesium AST Alkaline Phosphatase Total Protein Albumin Urine Total Protein 06/03/17 06/03/17 06/04/17 21:50 23:08 00:16 WBC RBC Hgb Hct MCH RDW Plt Count Lymph % (Auto) Moffat % (Auto) Moffat # Seg Neutrophils % Seg Neuts % (Manual) Lymphocytes % (Manual) Basophils % (Manual) Seg Neutrophils # Seg Neutrophils # Man Lymphocytes # (Manual) Basophils # (Manual) POC ABG pH POC ABG pCO2 POC ABG pO2 Sodium Potassium Chloride Carbon Dioxide BUN Creatinine Glucose POC Glucose 223 H 214 H 226 H Hemoglobin A1c Calcium Phosphorus Magnesium AST Alkaline Phosphatase Total Protein Albumin Urine Total Protein 06/04/17 06/04/17 06/04/17 01:05 02:07 03:27 WBC RBC Hgb Hct MCH RDW Plt Count Lymph % (Auto) Moffat % (Auto) Moffat # Seg Neutrophils % Seg Neuts % (Manual) Lymphocytes % (Manual) Basophils % (Manual) Seg Neutrophils # Seg Neutrophils # Man Lymphocytes # (Manual) Basophils # (Manual) POC ABG pH POC ABG pCO2 POC ABG pO2 Sodium Potassium Chloride Carbon Dioxide BUN Creatinine Glucose POC Glucose 217 H 229 H 185 H Hemoglobin A1c Calcium Phosphorus Magnesium AST Alkaline Phosphatase Total Protein Albumin Urine Total Protein 06/04/17 06/04/17 06/04/17 03:52 04:05 04:05 WBC 19.6 H RBC Hgb Hct MCH 26 L RDW 15.6 H Plt Count 564 H Lymph % (Auto) 7.3 L Moffat % (Auto) 10.8 H Moffat # 2.1 H Seg Neutrophils % 81.4 H Seg Neuts % (Manual) Lymphocytes % (Manual) Basophils % (Manual) Seg Neutrophils # 15.9 H Seg Neutrophils # Man Lymphocytes # (Manual) Basophils # (Manual) POC ABG pH POC ABG pCO2 POC ABG pO2 Sodium Potassium Chloride Carbon Dioxide 17 L BUN 52 H Creatinine 2.5 H Glucose 163 H POC Glucose 181 H Hemoglobin A1c Calcium 7.9 L Phosphorus Magnesium AST Alkaline Phosphatase Total Protein Albumin Urine Total Protein 06/04/17 06/04/17 06/04/17 04:56 05:39 06:12 WBC RBC Hgb Hct MCH RDW Plt Count Lymph % (Auto) Moffat % (Auto) Moffat # Seg Neutrophils % Seg Neuts % (Manual) Lymphocytes % (Manual) Basophils % (Manual) Seg Neutrophils # Seg Neutrophils # Man Lymphocytes # (Manual) Basophils # (Manual) POC ABG pH 7.486 H POC ABG pCO2 26.8 L POC ABG pO2 Sodium Potassium Chloride Carbon Dioxide BUN Creatinine Glucose POC Glucose 208 H 225 H Hemoglobin A1c Calcium Phosphorus Magnesium AST Alkaline Phosphatase Total Protein Albumin Urine Total Protein 06/04/17 06/04/17 06/04/17 07:07 08:06 09:15 WBC RBC Hgb Hct MCH RDW Plt Count Lymph % (Auto) Moffat % (Auto) Moffat # Seg Neutrophils % Seg Neuts % (Manual) Lymphocytes % (Manual) Basophils % (Manual) Seg Neutrophils # Seg Neutrophils # Man Lymphocytes # (Manual) Basophils # (Manual) POC ABG pH POC ABG pCO2 POC ABG pO2 Sodium Potassium Chloride Carbon Dioxide BUN Creatinine Glucose POC Glucose 201 H 171 H 178 H Hemoglobin A1c Calcium Phosphorus Magnesium AST Alkaline Phosphatase Total Protein Albumin Urine Total Protein 06/04/17 06/04/17 10:16 12:22 WBC RBC Hgb Hct MCH RDW Plt Count Lymph % (Auto) Moffat % (Auto) Moffat # Seg Neutrophils % Seg Neuts % (Manual) Lymphocytes % (Manual) Basophils % (Manual) Seg Neutrophils # Seg Neutrophils # Man Lymphocytes # (Manual) Basophils # (Manual) POC ABG pH POC ABG pCO2 POC ABG pO2 Sodium Potassium Chloride Carbon Dioxide BUN Creatinine Glucose POC Glucose 191 H 188 H Hemoglobin A1c Calcium Phosphorus Magnesium AST Alkaline Phosphatase Total Protein Albumin Urine Total Protein Assessment and Plan Impression: 1. Hypoxic ischemic encephalopathy 2. Complex partial seizures with secondary generalization Plan: 1. Increased her levetiracetam. 2. EEG done and reviewed showing some slowing frontal temporally bilaterally and elsewhere with some additional noise and sometimes overlying faster frequencies versus noise but no epileptiform activity. 3. Explained to family poor likelihood of waking up given the time that his past without improvement. Will try memantine to wake up from coma since modafinil would appear to be unsafe. 35 minutes critical care time spent with this patient including review of 100s of MRI images. Thank you for an interesting consultation on this unfortunate mid 30s lady.
[2017-06-04] MEDS: NAMENDA PO SCH (17:51)
--- NOTE | 2017-06-04 17:59 | Progress Note ---
Assessment and Plan Assessment and plan: 36-year-old -[place] female was admitted to the floor for seizure episode, altered mental status, acute hypoxic respiratory failure, patient was intubated in the emergency department patient had PEA and resuscitated successfully. Acute hypoxic respiratory - intubated in the mechanical ventilation<96hrs Acute encephalopathy with anoxic hypoxic brain injury - treat underlying cause -MRI reviewed, D/W NEUROLOGY -[place] of Seizure disorder-complex partial - Patient is on IV Keppra -try memantine -Neurology following -Await MRI Cardiomyopathy-possible -Cardiology consult HONK - on Insulin drip - Continue Insulin drip, Advised nursing about gap and need to continue and the transition method. Patient has episodes of hypothermia and leukocytosis - Blood culture was taken and empirically on Vanc and Zosyn - Further rise in Leukocytosis likely secondary to Steroids Acute renal failure - Continue IV fluids Malnutrition - Patient is currently on on OG-tube feeding Hypertension - Continue home medications ?Cardiac arrest DVT prophylaxis Disposition - Continue ICU care. poor prognosis Discussed with family The high probability of a clinically significant, sudden or life threatening deterioration of the [respiratory, cardiovascular, neurologic, renal] system(s) required my full and direct attention, intervention and personal management. The aggregate critical care time was [35] minutes. This time is in addition to time spent performing reported procedures but includes the following: [x] Data Review and interpretation [x] Patient assessment and monitoring of vital signs [x] Documentation [x] Medication orders and management History Interval history: Patient seen and examined remains unresponsive on mechanical ventilation. Off sedation. NO clinical change Hospitalist Physical - Physical exam Narrative exam: Not in cardiopulmonary distress. The patient appeared well nourished and normally developed. Vital signs as documented. HEENT: Swelling of orbital, oral and facial soft tissue structures. ETT is in place No scleral icterus . Neck is without jugular venous distension, thyromegaly, or carotid bruits. Lungs are clear to auscultation. Cardiac exam reveals regular rate and Rhythm. First and second heart sounds normal. No murmurs, rubs or gallops. Abdominal exam reveals normal bowel sounds, no masses, no organomegaly and no aortic enlargement. Extremities are nonedematous and both femoral and pedal pulses are normal. Neuro: None responsive. Sponteonous eye opening observed. - Constitutional Vitals: Temp Pulse Resp BP Pulse Ox 97.3 F L 105 H 17 187/110 100 03/22/18 16:00 06/04/17 17:45 06/04/17 17:00 06/04/17 17:45 06/04/17 17:00 General appearance: Present: other (unresponsive, on the ventilator) Results - Labs CBC & Chem 7: 06/04/17 04:05 06/04/17 22:10 Labs: Laboratory Last Values WBC 19.6 K/mm3 (4.5-11.0) H 06/04/17 04:05 RBC 3.94 M/mm3 (3.65-5.03) 06/04/17 04:05 Hgb 10.4 gm/dl (10.1-14.3) 06/04/17 04:05 Hct 32.1 % (30.3-42.9) 06/04/17 04:05 MCV 81 fl (79-97) 06/04/17 04:05 MCH 26 pg (28-32) L 06/04/17 04:05 MCHC 32 % (30-34) 06/04/17 04:05 RDW 15.6 % (13.2-15.2) H 06/04/17 04:05 Plt Count 564 K/mm3 (140-440) H 06/04/17 04:05 Lymph % (Auto) 7.3 % (13.4-35.0) L 06/04/17 04:05 [place] % (Auto) 10.8 % (0.0-7.3) H 06/04/17 04:05 Eos % (Auto) 0.1 % (0.0-4.3) 06/04/17 04:05 Baso % (Auto) 0.4 % (0.0-1.8) 06/04/17 04:05 Lymph # 1.4 K/mm3 (1.2-5.4) 06/04/17 04:05 [place] # 2.1 K/mm3 (0.0-0.8) H 06/04/17 04:05 Eos # 0.0 K/mm3 (0.0-0.4) 06/04/17 04:05 Baso # 0.1 K/mm3 (0.0-0.1) 06/04/17 04:05 Add Manual Diff Complete 06/03/17 04:14 Total Counted 100 06/03/17 04:14 Seg Neutrophils % 81.4 % (40.0-70.0) H 06/04/17 04:05 Seg Neuts % (Manual) 94.0 % (40.0-70.0) H 06/03/17 04:14 Band Neutrophils % 0 % 06/03/17 04:14 Lymphocytes % (Manual) 3.0 % (13.4-35.0) L 06/03/17 04:14 Reactive Lymphs % (Man) 0 % 06/03/17 04:14 Monocytes % (Manual) 3.0 % (0.0-7.3) 06/03/17 04:14 Eosinophils % (Manual) 0 % (0.0-4.3) 06/03/17 04:14 Basophils % (Manual) 0 % (0.0-1.8) 06/03/17 04:14 Metamyelocytes % 0 % 06/03/17 04:14 Myelocytes % 0 % 06/03/17 04:14 Promyelocytes % 0 % 06/03/17 04:14 Blast Cells % 0 % 06/03/17 04:14 Nucleated RBC % Not Reportable 06/03/17 04:14 Seg Neutrophils # 15.9 K/mm3 (1.8-7.7) H 06/04/17 04:05 Seg Neutrophils # Man 19.8 K/mm3 (1.8-7.7) H 06/03/17 04:14 Band Neutrophils # 0.0 K/mm3 06/03/17 04:14 Lymphocytes # (Manual) 0.6 K/mm3 (1.2-5.4) L 06/03/17 04:14 Abs React Lymphs (Man) 0.0 K/mm3 06/03/17 04:14 Monocytes # (Manual) 0.6 K/mm3 (0.0-0.8) 06/03/17 04:14 Eosinophils # (Manual) 0.0 K/mm3 (0.0-0.4) 06/03/17 04:14 Basophils # (Manual) 0.0 K/mm3 (0.0-0.1) 06/03/17 04:14 Metamyelocytes # 0.0 K/mm3 06/03/17 04:14 Myelocytes # 0.0 K/mm3 06/03/17 04:14 Promyelocytes # 0.0 K/mm3 06/03/17 04:14 Blast Cells # 0.0 K/mm3 06/03/17 04:14 WBC Morphology Not Reportable 06/03/17 04:14 Hypersegmented Neuts Not Reportable 06/03/17 04:14 Hyposegmented Neuts Not Reportable 06/03/17 04:14 Hypogranular Neuts Not Reportable 06/03/17 04:14 Smudge Cells Not Reportable 06/03/17 04:14 Toxic Granulation Not Reportable 06/03/17 04:14 Toxic Vacuolation Not Reportable 06/03/17 04:14 Dohle Bodies Not Reportable 06/03/17 04:14 Pelger-Huet Anomaly Not Reportable 06/03/17 04:14 Don Rods Not Reportable 06/03/17 04:14 Platelet Estimate Consistent w auto 06/03/17 04:14 Clumped Platelets Not Reportable 06/03/17 04:14 Plt Clumps, EDTA Not Reportable 06/03/17 04:14 Large Platelets Not Reportable 06/03/17 04:14 Giant Platelets Not Reportable 06/03/17 04:14 Platelet Satelliting Not Reportable 06/03/17 04:14 Plt Morphology Comment Not Reportable 06/03/17 04:14 RBC Morphology Not Reportable 06/03/17 04:14 Dimorphic RBCs Not Reportable 06/03/17 04:14 Polychromasia Not Reportable 06/03/17 04:14 Hypochromasia Not Reportable 06/03/17 04:14 Poikilocytosis Not Reportable 06/03/17 04:14 Anisocytosis Not Reportable 06/03/17 04:14 Microcytosis Not Reportable 06/03/17 04:14 Macrocytosis Not Reportable 06/03/17 04:14 Spherocytes Not Reportable 06/03/17 04:14 Pappenheimer Bodies Not Reportable 06/03/17 04:14 Sickle Cells Not Reportable 06/03/17 04:14 Target Cells Not Reportable 06/03/17 04:14 Tear Drop Cells Not Reportable 06/03/17 04:14 Ovalocytes Not Reportable 06/03/17 04:14 Helmet Cells Not Reportable 06/03/17 04:14 [place] Bodies Not Reportable 06/03/17 04:14 Norris Rings Not Reportable 06/03/17 04:14 Cecy Cells Not Reportable 06/03/17 04:14 Bite Cells Not Reportable 06/03/17 04:14 Crenated Cell Not Reportable 06/03/17 04:14 Elliptocytes Not Reportable 06/03/17 04:14 Acanthocytes (Spur) Not Reportable 06/03/17 04:14 Rouleaux Not Reportable 06/03/17 04:14 Hemoglobin C Crystals Not Reportable 06/03/17 04:14 Schistocytes Not Reportable 06/03/17 04:14 Malaria parasites Not Reportable 06/03/17 04:14 Fadi Bodies Not Reportable 06/03/17 04:14 Hem Pathologist Commnt No 06/03/17 04:14 POC ABG pH 7.486 (7.35-7.45) H 06/04/17 04:56 POC ABG pCO2 26.8 (35-45) L 06/04/17 04:56 POC ABG pO2 92 (80-105) 06/04/17 04:56 POC ABG HCO3 20.2 06/04/17 04:56 POC ABG Total CO2 21 06/04/17 04:56 POC ABG O2 Sat 98 06/04/17 04:56 POC ABG Base Excess -3 06/04/17 04:56 VBG pH 7.327 (7.320-7.420) 05/30/17 10:43 FiO2 30 % 06/04/17 04:56 Sodium 139 mmol/L (137-145) 06/04/17 04:05 Potassium 3.6 mmol/L (3.6-5.0) 06/04/17 04:05 Chloride 104.7 mmol/L (98-107) 06/04/17 04:05 Carbon Dioxide 17 mmol/L (22-30) L 06/04/17 04:05 Anion Gap 21 mmol/L 06/04/17 04:05 BUN 52 mg/dL (7-17) H 06/04/17 04:05 Creatinine 2.5 mg/dL (0.7-1.2) H 06/04/17 04:05 Estimated GFR 27 ml/min 06/04/17 04:05 BUN/Creatinine Ratio 21 % 06/04/17 04:05 Glucose 163 mg/dL (65-100) H 06/04/17 04:05 POC Glucose 188 (70-105) H 06/04/17 12:22 Hemoglobin A1c 9.7 % (4-6) H 05/31/17 05:45 Calcium 7.9 mg/dL (8.4-10.2) L 06/04/17 04:05 Phosphorus 4.60 mg/dL (2.5-4.5) H 06/02/17 04:24 Magnesium 1.50 mg/dL (1.7-2.3) L 06/02/17 04:24 Total Bilirubin 0.50 mg/dL (0.1-1.2) 06/02/17 04:24 AST 23 units/L (5-40) 06/02/17 04:24 ALT 14 units/L (7-56) 06/02/17 04:24 Alkaline Phosphatase 132 units/L (35-129) H 06/02/17 04:24 Total Protein 4.1 g/dL (6.3-8.2) L 06/02/17 04:24 Albumin 1.7 g/dL (3.9-5) L 06/02/17 04:24 Albumin/Globulin Ratio 0.7 % 06/02/17 04:24 Urine Color Yellow (Yellow) 05/30/17 15:04 Urine Turbidity Clear (Clear) 05/30/17 15:04 Urine pH 7.0 (5.0-7.0) 05/30/17 15:04 Ur Specific [place] 1.021 (1.003-1.030) 05/30/17 15:04 Urine Protein >500 mg/dL (Negative) 05/30/17 15:04 Urine Glucose (UA) >=500 mg/dL (Negative) 05/30/17 15:04 Urine Ketones Tr mg/dL (Negative) 05/30/17 15:04 Urine Blood Sm (Negative) 05/30/17 15:04 Urine Nitrite Neg (Negative) 05/30/17 15:04 Urine Bilirubin Neg (Negative) 05/30/17 15:04 Urine Urobilinogen < 2.0 mg/dL (<2.0) 05/30/17 15:04 Ur Leukocyte Esterase Neg (Negative) 05/30/17 15:04 Urine WBC (Auto) 2.0 /HPF (0.0-6.0) 05/30/17 15:04 Urine RBC (Auto) 5.0 /HPF (0.0-6.0) 05/30/17 15:04 Urine Bacteria (Auto) 1+ /HPF (Negative) 05/30/17 15:04 Urine Mucus Few /HPF 05/30/17 15:04 Urine Creatinine < 4.2 mg/dL (0.1-20.0) 06/02/17 10:18 Urine Sodium 10 mmol/L 06/02/17 10:18 Urine Total Protein < 4 mg/dL (5-11.8) L 06/02/17 10:18 Urine Opiates Screen Presumptive negative 05/30/17 15:04 Urine Methadone Screen Presumptive negative 05/30/17 15:04 Ur Barbiturates Screen Presumptive negative 05/30/17 15:04 Levetiracetam 21.2 mcg/mL 05/30/17 08:59 Ur Phencyclidine Scrn Presumptive negative 05/30/17 15:04 Ur Amphetamines Screen Presumptive negative 05/30/17 15:04 U Benzodiazepines Scrn Presumptive negative 05/30/17 15:04 Urine Cocaine Screen Presumptive negative 05/30/17 15:04 U Marijuana (THC) Screen Presumptive positive 05/30/17 15:04 Drugs of Abuse Note Disclamer 05/30/17 15:04
[2017-06-04 18:21] LABS: Creatinine,Urine 78.7 mg/dL (0.1-20.0)
[2017-06-04] MEDS: ARTIFICIAL TEARS OPHTH OINT OU PRN (21:12)
[2017-06-04 22:56] LABS: Calcium 7.4 mg/dL (8.4-10.2)
[2017-06-05] MEDS: HumaLOG SUB-Q SCH ×4 (00:46→18:22)
[2017-06-05] MEDS: APRESOLINE IV PRN ×3 (03:54→23:31)
[2017-06-05 04:48] LABS: Calcium 7.7 mg/dL (8.4-10.2)
[2017-06-05] MEDS: LASIX IV SCH ×2 (05:37→18:31)
[2017-06-05] MEDS: NAMENDA PO SCH ×2 (05:37→18:30)
--- NOTE | 2017-06-05 10:07 | Progress Note ---
Assessment and Plan Seizures Respiratory failure intubated on mechanical ventilation Hypoxic encephalopathy Acute renal failure Diabetes mellitus Dilated Cardiomyopathy EF 15-20 on echo this admission. mother reports pt was previously diagnosed at [facility]. Hypertension Recommend: Medical therapy for cardiomyopathy with afterload reduction and beta blockers.. Subjective Date of service: 06/05/17 Principal diagnosis: Acute respiratory failure Interval history: Patient remains intubated, unresponsive, on the vent. Objective Vital Signs Temp Pulse Pulse Resp BP Pulse Ox 06/05/17 08:15 17 06/05/17 07:50 105 H 19 160/90 100 06/05/17 06:41 107 H 20 147/87 100 06/05/17 06:31 104 H 19 147/87 100 06/05/17 06:21 105 H 19 150/86 100 06/05/17 06:11 105 H 20 150/86 100 06/05/17 06:01 105 H 19 150/86 99 06/05/17 05:51 105 H 18 168/84 99 06/05/17 05:41 109 H 20 168/84 99 06/05/17 05:31 114 H 20 175/92 99 06/05/17 05:30 98.4 F 06/05/17 05:21 109 H 19 150/83 99 06/05/17 05:11 110 H 19 150/83 99 06/05/17 05:01 114 H 20 150/83 99 06/05/17 04:51 111 H 20 152/83 99 06/05/17 04:41 111 H 20 152/83 99 06/05/17 04:31 109 H 18 152/83 99 06/05/17 04:21 110 H 20 153/83 99 06/05/17 04:11 111 H 21 153/83 99 06/05/17 04:01 107 H 19 153/83 100 06/05/17 03:54 109 H 165/92 06/05/17 03:51 109 H 18 165/92 100 06/05/17 03:41 106 H 19 165/92 100 06/05/17 03:30 107 H 21 165/92 99 06/05/17 03:21 110 H 21 159/94 100 06/05/17 03:18 98.1 F 06/05/17 03:14 110 H 22 159/94 100 06/05/17 03:11 115 H 23 159/94 100 03/23/18 03:00 104 H 17 159/94 100 06/05/18 02:51 101 H 16 151/85 100 18 02:41 98 H 16 151/85 100 18 02:30 101 H 17 151/85 100 18 02:21 104 H 20 146/82 100 18 02:11 102 H 18 146/82 100 18 02:00 104 H 17 146/82 100 18 01:50 101 H 18 143/84 100 06/05/18 01:41 105 H 20 171/105 98 06/05/18 01:31 104 H 18 171/105 100 18 01:21 101 H 18 171/105 100 18 01:11 107 H 20 171/105 100 18 01:00 103 H 19 171/105 100 18 00:51 101 H 17 150/102 100 18 00:41 108 H 20 154/100 100 06/05/18 00:30 99 H 19 154/100 100 06/05/18 00:21 101 H 19 150/102 100 06/05/18 00:11 100 H 19 150/102 100 06/05/18 00:00 98.1 F 101 H 18 154/94 100 18 23:51 110 H 27 H 154/94 100 06/04/18 23:45 105 H 20 154/94 100 06/04/18 23:41 111 H 17 154/94 100 06/04/18 23:38 104 H 20 154/94 100 06/04/18 23:30 101 H 17 154/94 100 22/18 23:21 95 H 16 142/91 100 22/18 23:11 100 H 19 142/91 100 22/18 23:01 95 H 15 142/91 100 22/18 22:51 102 H 19 142/86 100 22/18 22:41 100 H 18 144/89 100 22/18 22:31 97 H 20 144/89 100 22/18 22:21 95 H 17 142/86 99 22/18 22:11 98 H 19 142/86 99 22/18 22:01 97 H 19 142/86 99 22/18 22:00 97 H 03/22/18 21:51 98 H 17 149/89 98 03/22/18 21:41 100 H 22 149/89 99 03/22/18 21:31 99 H 21 149/89 100 0322/18 21:21 100 H 19 172/96 100 0322/18 21:11 106 H 18 172/96 100 0322/18 21:01 110 H 17 172/96 100 22/18 20:51 104 H 16 170/96 100 0322/18 20:41 101 H 16 170/96 100 22/18 20:31 104 H 17 170/96 100 22/18 20:21 110 H 19 162/91 100 06/04/18 20:15 96 H 18 149/89 100 06/04/18 20:11 105 H 18 169/102 100 06/04/18 20:01 106 H 18 169/102 100 22/18 20:00 97.2 F L 101 H 17 18 19:51 104 H 17 162/91 100 22/18 19:41 104 H 18 162/91 100 22/18 19:30 103 H 17 162/91 100 22/18 19:21 104 H 18 142/78 100 22/18 19:11 106 H 22 142/78 100 06/04/18 19:01 97 H 15 142/78 100 06/04/18 18:51 98 H 16 157/93 100 0322/18 18:41 99 H 17 157/93 100 22/18 18:31 106 H 20 142/84 100 22/18 18:21 102 H 18 157/93 100 22/18 18:11 112 H 18 157/93 95 0322/18 18:01 106 H 16 157/93 99 22/18 18:00 103 H 18 100 22/18 17:51 110 H 22 187/110 100 0322/18 17:45 105 H 187/110 22/18 17:41 104 H 19 187/110 100 0322/18 17:31 99 H 18 187/110 100 22/18 17:21 98 H 17 167/101 100 22/18 17:11 94 H 14 167/101 100 06/04/18 17:00 99 H 17 167/101 100 03/18 16:51 91 H 14 151/88 100 03/18 16:41 89 15 151/88 100 18 16:30 90 14 151/88 100 06/04/18 16:21 93 H 15 155/95 100 18 16:11 92 H 18 155/95 100 18 16:07 101 H 475 H 155/95 100 18 16:00 97.3 F L 92 H 92 H 18 155/95 100 06/04/18 15:51 91 H 19 143/87 100 03/18 15:41 93 H 16 143/87 100 06/04/18 15:30 90 16 143/87 100 18 15:21 89 18 100 18 15:10 100 H 18 143/89 100 18 15:00 94 H 18 146/89 100 18 14:50 99 H 21 146/89 100 18 14:40 86 14 146/89 100 06/04/18 14:30 86 15 146/89 100 06/04/18 14:20 88 17 144/85 100 06/04/18 14:10 86 15 144/85 100 18 14:05 88 18 100 18 14:00 88 18 144/85 100 18 13:50 85 14 130/75 100 //18 13:40 86 15 130/75 100 06/04/18 13:30 83 14 130/75 100 06/04/18 13:20 84 14 133/79 100 03/18 13:10 84 17 133/79 100 06/04/18 13:00 87 18 133/79 100 06/04/18 12:50 88 18 137/88 100 03/18 12:40 99 H 18 137/88 100 06/04/18 12:30 97 H 19 137/88 100 06/04/18 12:20 91 H 18 128/76 100 06/04/18 12:10 91 H 15 128/76 100 06/04/18 12:00 97.7 F 90 90 16 128/76 100 06/04/18 11:50 89 15 130/77 100 03/18 11:44 92 H 130/77 06/04/17 11:40 92 H 19 130/77 06/04/17 11:30 94 H 20 130/77 06/04/17 11:20 85 14 126/78 100 06/04/17 11:10 85 19 126/78 06/04/17 11:00 96 H 21 126/78 06/04/17 10:50 88 18 162/87 06/04/17 10:40 86 17 162/87 06/04/17 10:30 89 16 125/70 06/04/17 10:20 93 H 13 143/80 06/04/17 10:10 96 H 15 143/80 100 - Physical Examination General: Other (intubated on the vent.) Cardiac: Positive: Reg Rate and Rhythm - Labs and Meds Comprehensive Metabolic Panel 06/04/17 06/05/17 Range/Units 22:10 04:11 Sodium 137 138 (137-145) mmol/L Potassium 3.9 3.7 (3.6-5.0) mmol/L Chloride 104.8 105.7 (98-107) mmol/L Carbon Dioxide 17 L 19 L (22-30) mmol/L BUN 55 H 55 H (7-17) mg/dL Creatinine 2.3 H 2.2 H (0.7-1.2) mg/dL Glucose 300 H 226 H (65-100) mg/dL Calcium 7.4 L 7.7 L (8.4-10.2) mg/dL
[2017-06-05] MEDS: KEPPRA PO SCH ×2 (10:28→21:06)
[2017-06-05] MEDS: LOVENOX SUB-Q SCH (10:29)
[2017-06-05] MEDS: COREG PO SCH ×2 (10:29→21:05)
[2017-06-05] MEDS: PEPCID PO SCH (10:29)
--- NOTE | 2017-06-05 11:59 | Progress Note ---
Assessment and Plan Imp: 1. Seizures 2. HONK in DM2 patient 3. Metabolic encephalopathy 2/2 above + anoxic enceph per MRI brain 4. s/p CP arrest -> suspect severe biventricular failure played a role in this 5. JERRI 6. Dilated CMP and acute systolic CHF 7. SIRS, probably seizure related Rec: 1. Cont. Keppra; neurology evaluation appreciated; off sedation 2. Lasix per renal 3. Cultures negative; stopped ABX 4. Cards eval. 5. Mentation precludes extubation; depending on goals of care may need trach/ PEG -> long d/w /family about this (if they request everything done would consult surgery over the weekend) 6. DVT and GI PPx; TFs 7. Finished brief course of steroids; doubt allergic reaction; WBC elevated probably due to steroids 8. Prognosis is guarded to poor CCT 31 minutes; d/w family at bedside, they understands/agree Subjective Date of service: 06/05/17 Principal diagnosis: Acute respiratory failure Interval history: No events. Off sedation. Sugars better. Unresponsive except eyes are open. Active Medications Acetaminophen (Tylenol) 650 mg FEEDTUBE Q6H PRN PRN Reason: Pain, Mild (1-3) Last Admin: 05/30/17 22:44 Dose: 650 mg Lipase/Protease/Amylase (Pancreaze Dr 10,500 Unit) 1 each FEEDTUBE PRN PRN PRN Reason: For Clogged Feeding Tube Carvedilol (Coreg) 25 mg PO BID [facility] Last Admin: 06/05/17 10:29 Dose: 25 mg Dextrose (D50w (25gm) Syringe) 0 ml IV PRN PRN PRN Reason: Hypoglycemia Last Admin: 05/31/17 15:20 Dose: 50 ml Dextrose (D50w (25gm) Syringe) 50 ml IV PRN PRN PRN Reason: Hypoglycemia Enoxaparin Sodium (Lovenox) 30 mg SUB-Q Q24HR [facility] Last Admin: 06/05/17 10:29 Dose: 30 mg Famotidine (Pepcid) 20 mg PO DAILY [facility] Last Admin: 06/05/17 10:29 Dose: 20 mg Furosemide (Lasix) 40 mg IV 0600,1800 [facility] Last Admin: 06/05/17 05:37 Dose: 40 mg Hydralazine HCl (Apresoline) 10 mg IV Q6HR PRN PRN Reason: Hypertension Last Admin: 06/05/17 10:31 Dose: 10 mg Hydralazine HCl (Apresoline) 25 mg PO Q8HR [facility] Last Admin: 06/05/17 14:04 Dose: 25 mg Hydrophilic Ointment (Vaseline Lip Therapy) 1 applic TP Q2HR PRN PRN Reason: Dry Lips Last Admin: 06/02/17 17:03 Dose: 1 applic Insulin Human Isoph/Insulin Regular (Humulin 70/30) 25 unit SUB-Q BID [facility] Insulin Human Lispro (Humalog) 0 unit SUB-Q Q6HR [facility]; Protocol Last Admin: 06/05/17 13:00 Dose: 2 unit Isosorbide Dinitrate (Isordil Titradose) 10 mg PO Q8HR [facility] Last Admin: 06/05/17 14:04 Dose: 10 mg Levetiracetam (Keppra) 750 mg PO BID [facility] Last Admin: 06/05/17 10:28 Dose: 750 mg Memantine (Namenda) 5 mg PO Q12H [facility] Last Admin: 06/05/17 05:37 Dose: 5 mg Metolazone (Zaroxolyn) 5 mg PO BID [facility] Multi-Ingred Cream/Lotion/Oil/Oint (Artificial Tears Ophth Oint) 1 applic OU Q4HR PRN PRN Reason: Dry Eye(s) Last Admin: 06/04/17 21:12 Dose: 1 applic Simple Syrup (Simple Syrup) 15 ml FEEDTUBE PRN PRN PRN Reason: Hypoglycemia Simple Syrup (Simple Syrup) 30 ml FEEDTUBE PRN PRN PRN Reason: Hypoglycemia Sodium Bicarbonate (Sodium Bicarbonate) 325 mg FEEDTUBE PRN PRN PRN Reason: For Clogged Feeding Tube Sodium Chloride (Nacl 0.9% 500 Ml) 1 ml IV DIRECT [facility] Objective Vital Signs - 12hr 06/05/17 06/05/17 06/05/17 00:00 00:11 00:21 Temperature 98.1 F Pulse Rate 101 H 100 H 101 H Respiratory 18 19 19 Rate Blood Pressure 154/94 150/102 150/102 O2 Sat by Pulse 100 100 100 Oximetry 06/05/17 06/05/17 06/05/17 00:30 00:41 00:51 Temperature Pulse Rate 99 H 108 H 101 H Respiratory 19 20 17 Rate Blood Pressure 154/100 154/100 150/102 O2 Sat by Pulse 100 100 100 Oximetry 06/05/1718 06/05/17 01:00 01:11 01:21 Temperature Pulse Rate 103 H 107 H 101 H Respiratory 19 20 18 Rate Blood Pressure 171/105 171/105 171/105 O2 Sat by Pulse 100 100 100 Oximetry 06/05/17 06/05/17 06/05/17 01:31 01:41 01:50 Temperature Pulse Rate 104 H 105 H 101 H Respiratory 18 20 18 Rate Blood Pressure 171/105 171/105 143/84 O2 Sat by Pulse 100 98 100 Oximetry 06/05/17 06/05/17 06/05/17 02:00 02:11 02:21 Temperature Pulse Rate 104 H 102 H 104 H Respiratory 17 18 20 Rate Blood Pressure 146/82 146/82 146/82 O2 Sat by Pulse 100 100 100 Oximetry 06/05/17 06/05/17 06/05/17 02:30 02:41 02:51 Temperature Pulse Rate 101 H 98 H 101 H Respiratory 17 16 16 Rate Blood Pressure 151/85 151/85 151/85 O2 Sat by Pulse 100 100 100 Oximetry 06/05/17 06/05/17 06/05/17 03:00 03:11 03:14 Temperature Pulse Rate 104 H 115 H 110 H Respiratory 17 23 22 Rate Blood Pressure 159/94 159/94 159/94 O2 Sat by Pulse 100 100 100 Oximetry 06/05/17 06/05/17 06/05/17 03:18 03:21 03:30 Temperature 98.1 F Pulse Rate 110 H 107 H Respiratory 21 21 Rate Blood Pressure 159/94 165/92 O2 Sat by Pulse 100 99 Oximetry 06/05/1718 06/05/17 03:41 03:51 03:54 Temperature Pulse Rate 106 H 109 H 109 H Respiratory 19 18 Rate Blood Pressure 165/92 165/92 165/92 O2 Sat by Pulse 100 100 Oximetry 06/05/17 06/05/17 06/05/17 04:01 04:11 04:21 Temperature Pulse Rate 107 H 111 H 110 H Respiratory 19 21 20 Rate Blood Pressure 153/83 153/83 153/83 O2 Sat by Pulse 100 99 99 Oximetry 06/05/17 06/05/17 06/05/17 04:31 04:41 04:51 Temperature Pulse Rate 109 H 111 H 111 H Respiratory 18 20 20 Rate Blood Pressure 152/83 152/83 152/83 O2 Sat by Pulse 99 99 99 Oximetry 06/05/18 06/05/18 18 05:01 05:11 05:21 Temperature Pulse Rate 114 H 110 H 109 H Respiratory 20 19 19 Rate Blood Pressure 150/83 150/83 150/83 O2 Sat by Pulse 99 99 99 Oximetry 06/05/18 06/05/18 18 05:30 05:31 05:41 Temperature 98.4 F Pulse Rate 114 H 109 H Respiratory 20 20 Rate Blood Pressure 175/92 168/84 O2 Sat by Pulse 99 99 Oximetry 06/05/18 06/05/18 18 05:51 06:01 06:11 Temperature Pulse Rate 105 H 105 H 105 H Respiratory 18 19 20 Rate Blood Pressure 168/84 150/86 150/86 O2 Sat by Pulse 99 99 100 Oximetry 06/05/18 06/05/18 18 06:21 06:31 06:41 Temperature Pulse Rate 105 H 104 H 107 H Respiratory 19 19 20 Rate Blood Pressure 150/86 147/87 147/87 O2 Sat by Pulse 100 100 100 Oximetry 06/05/18 06/05/18 18 06:51 07:01 07:11 Temperature Pulse Rate 104 H 105 H 105 H Respiratory 20 19 18 Rate Blood Pressure 147/87 166/91 166/91 O2 Sat by Pulse 100 99 100 Oximetry 18 06/05/18 18 07:21 07:31 07:41 Temperature Pulse Rate 103 H 107 H 100 H Respiratory 18 21 17 Rate Blood Pressure 166/91 162/90 162/90 O2 Sat by Pulse 100 100 100 Oximetry 06/05/18 06/05/18 06/05/18 07:50 07:51 08:00 Temperature 98 F Pulse Rate 105 H 105 H Respiratory 19 20 Rate Blood Pressure 160/90 162/90 O2 Sat by Pulse 100 100 Oximetry 06/05/18 06/05/18 18 08:01 08:11 08:15 Temperature Pulse Rate 107 H 102 H Respiratory 21 19 17 Rate Blood Pressure 181/100 181/100 O2 Sat by Pulse 100 100 Oximetry 06/05/18 06/0506/05/17 08:21 08:31 08:41 Temperature Pulse Rate 104 H 104 H 108 H Respiratory 19 20 21 Rate Blood Pressure 181/100 167/92 167/92 O2 Sat by Pulse 100 100 100 Oximetry 06/05/17 06/05/17 06/05/17 08:51 09:01 09:11 Temperature Pulse Rate 97 H 104 H 101 H Respiratory 15 18 18 Rate Blood Pressure 167/92 175/94 175/94 O2 Sat by Pulse 99 100 100 Oximetry 06/05/17 06/05/17 06/05/17 09:21 09:31 09:41 Temperature Pulse Rate 106 H 96 H 105 H Respiratory 18 16 21 Rate Blood Pressure 175/94 160/85 160/85 O2 Sat by Pulse 100 100 100 Oximetry 06/05/17 06/05/17 06/05/17 09:51 10:01 10:11 Temperature Pulse Rate 96 H 105 H 97 H Respiratory 15 21 13 Rate Blood Pressure 160/85 172/99 172/99 O2 Sat by Pulse 100 100 100 Oximetry 06/05/17 06/05/17 06/05/17 10:21 10:29 10:31 Temperature Pulse Rate 108 H 109 H 106 H Respiratory 20 19 Rate Blood Pressure 172/99 172/99 183/101 O2 Sat by Pulse 100 100 Oximetry 06/05/17 06/05/17 06/05/17 10:41 10:51 11:01 Temperature Pulse Rate 113 H 110 H 111 H Respiratory 23 19 21 Rate Blood Pressure 183/101 183/101 183/101 O2 Sat by Pulse 99 99 98 Oximetry 06/05/17 06/05/17 06/05/17 11:11 11:21 11:31 Temperature Pulse Rate 106 H 108 H 104 H Respiratory 17 21 19 Rate Blood Pressure 172/99 172/99 138/76 O2 Sat by Pulse 97 98 98 Oximetry Constitutional: other (unresponsive, critically ill on ventilator) Eyes: non-icteric, other (chemosis better) ENT: oropharynx moist, other (orally intubated) Neck: supple Effort: normal Ascultation: Bilateral: other (coarse BS bilaterally) Cardiovascular: other (tachycardia, RR; no mrg) Gastrointestinal: normoactive bowel sounds, soft, non-tender Integumentary: normal Extremities: no cyanosis, no edema, pink and warm Neurologic: unable to assess, other (unresponsive) Psychiatric: other (not able to assess) CBC and BMP: 06/04/17 04:05 06/05/17 04:11 ABG, PT/INR, D-dimer: ABG POC ABG pH 7.586 (7.35-7.45) H 06/05/17 03:26 POC ABG pCO2 22.6 (35-45) L 06/05/17 03:26 POC ABG pO2 179 (80-105) H 06/05/17 03:26 POC ABG HCO3 21.4 06/05/17 03:26 POC ABG Total CO2 22 06/05/17 03:26 POC ABG O2 Sat 100 06/05/17 03:26 Abnormal lab findings: Abnormal Labs 05/30/17 05/30/17 05/30/17 07:48 07:48 08:32 WBC 11.5 H RBC Hgb Hct MCH 27 L RDW 16.3 H Plt Count Lymph % (Auto) Charles % (Auto) Charles # Seg Neutrophils % Seg Neuts % (Manual) Lymphocytes % (Manual) Basophils % (Manual) Seg Neutrophils # Seg Neutrophils # Man Lymphocytes # (Manual) Basophils # (Manual) POC ABG pH POC ABG pCO2 POC ABG pO2 Sodium 133 L Potassium Chloride 89.9 L Carbon Dioxide BUN 27 H Creatinine 2.0 H Glucose 741 H* POC Glucose > 500 H Hemoglobin A1c Calcium Phosphorus Magnesium AST Alkaline Phosphatase Total Protein Albumin Urine Creatinine Urine Total Protein 05/30/17 05/30/17 05/30/17 08:59 08:59 16:08 WBC 14.5 H RBC Hgb Hct MCH RDW 16.0 H Plt Count Lymph % (Auto) Charles % (Auto) Charles # Seg Neutrophils % Seg Neuts % (Manual) 95.0 H Lymphocytes % (Manual) 2.0 L Basophils % (Manual) 2.0 H Seg Neutrophils # Seg Neutrophils # Man 13.8 H Lymphocytes # (Manual) 0.3 L Basophils # (Manual) 0.3 H POC ABG pH POC ABG pCO2 POC ABG pO2 Sodium 134 L 135 L Potassium 3.2 L Chloride 90.8 L 93.6 L Carbon Dioxide BUN 28 H 30 H Creatinine 2.0 H 2.1 H Glucose 742 H* 567 H* POC Glucose Hemoglobin A1c Calcium Phosphorus Magnesium AST Alkaline Phosphatase 246 H Total Protein 5.6 L Albumin 2.9 L Urine Creatinine Urine Total Protein 05/30/17 05/30/17 05/30/17 16:35 17:55 18:59 WBC RBC Hgb Hct MCH RDW Plt Count Lymph % (Auto) Charles % (Auto) Charles # Seg Neutrophils % Seg Neuts % (Manual) Lymphocytes % (Manual) Basophils % (Manual) Seg Neutrophils # Seg Neutrophils # Man Lymphocytes # (Manual) Basophils # (Manual) POC ABG pH 7.544 H POC ABG pCO2 32.0 L POC ABG pO2 155 H Sodium Potassium 3.1 L Chloride 93.9 L Carbon Dioxide BUN 30 H Creatinine 2.0 H Glucose 561 H* POC Glucose 497 H Hemoglobin A1c Calcium Phosphorus Magnesium AST Alkaline Phosphatase Total Protein Albumin Urine Creatinine Urine Total Protein 05/30/17 05/30/17 05/30/17 19:31 19:31 21:38 WBC RBC Hgb Hct MCH RDW Plt Count Lymph % (Auto) Charles % (Auto) Charles # Seg Neutrophils % Seg Neuts % (Manual) Lymphocytes % (Manual) Basophils % (Manual) Seg Neutrophils # Seg Neutrophils # Man Lymphocytes # (Manual) Basophils # (Manual) POC ABG pH POC ABG pCO2 POC ABG pO2 Sodium 135 L Potassium 2.9 L* Chloride 93.8 L 95.4 L Carbon Dioxide 20 L BUN 29 H 30 H Creatinine 2.2 H 2.3 H Glucose 478 H 364 H POC Glucose Hemoglobin A1c Calcium Phosphorus 2.20 L D Magnesium 1.40 L AST 42 H Alkaline Phosphatase 177 H Total Protein 5.4 L Albumin 2.4 L Urine Creatinine Urine Total Protein 05/30/17 05/31/17 05/31/17 23:06 02:17 05:27 WBC RBC Hgb Hct MCH RDW Plt Count Lymph % (Auto) Charles % (Auto) Charles # Seg Neutrophils % Seg Neuts % (Manual) Lymphocytes % (Manual) Basophils % (Manual) Seg Neutrophils # Seg Neutrophils # Man Lymphocytes # (Manual) Basophils # (Manual) POC ABG pH 7.489 H POC ABG pCO2 POC ABG pO2 Sodium Potassium 3.2 L 3.5 L Chloride Carbon Dioxide BUN 30 H 31 H Creatinine 2.5 H 2.4 H Glucose 288 H 246 H POC Glucose Hemoglobin A1c Calcium 8.3 L Phosphorus Magnesium AST Alkaline Phosphatase Total Protein Albumin Urine Creatinine Urine Total Protein 05/31/17 05/31/17 05/31/17 05:45 05:45 05:45 WBC RBC Hgb Hct MCH RDW Plt Count Lymph % (Auto) Charles % (Auto) Charles # Seg Neutrophils % Seg Neuts % (Manual) Lymphocytes % (Manual) Basophils % (Manual) Seg Neutrophils # Seg Neutrophils # Man Lymphocytes # (Manual) Basophils # (Manual) POC ABG pH POC ABG pCO2 POC ABG pO2 Sodium Potassium Chloride Carbon Dioxide BUN 32 H 30 H Creatinine 2.5 H 2.6 H Glucose 266 H 271 H POC Glucose Hemoglobin A1c 9.7 H Calcium 8.3 L 8.2 L Phosphorus Magnesium AST Alkaline Phosphatase 145 H Total Protein 4.7 L Albumin 1.8 L Urine Creatinine Urine Total Protein 05/31/17 05/31/17 05/31/17 08:18 09:20 12:18 WBC RBC Hgb Hct MCH RDW Plt Count Lymph % (Auto) Charles % (Auto) Charles # Seg Neutrophils % Seg Neuts % (Manual) Lymphocytes % (Manual) Basophils % (Manual) Seg Neutrophils # Seg Neutrophils # Man Lymphocytes # (Manual) Basophils # (Manual) POC ABG pH POC ABG pCO2 POC ABG pO2 Sodium Potassium Chloride Carbon Dioxide BUN Creatinine Glucose POC Glucose 300 H 254 H 170 H Hemoglobin A1c Calcium Phosphorus Magnesium AST Alkaline Phosphatase Total Protein Albumin Urine Creatinine Urine Total Protein 05/31/17 05/31/17 05/31/17 14:09 14:17 14:27 WBC RBC Hgb Hct MCH RDW Plt Count Lymph % (Auto) Charles % (Auto) Charles # Seg Neutrophils % Seg Neuts % (Manual) Lymphocytes % (Manual) Basophils % (Manual) Seg Neutrophils # Seg Neutrophils # Man Lymphocytes # (Manual) Basophils # (Manual) POC ABG pH POC ABG pCO2 POC ABG pO2 Sodium Potassium 3.4 L Chloride 107.1 H Carbon Dioxide BUN 30 H Creatinine 2.6 H Glucose 38 L* POC Glucose < 40 L 189 H Hemoglobin A1c Calcium 7.6 L Phosphorus Magnesium AST Alkaline Phosphatase Total Protein Albumin Urine Creatinine Urine Total Protein 05/31/17 05/31/17 05/31/17 15:01 16:01 17:19 WBC RBC Hgb Hct MCH RDW Plt Count Lymph % (Auto) Charles % (Auto) Charles # Seg Neutrophils % Seg Neuts % (Manual) Lymphocytes % (Manual) Basophils % (Manual) Seg Neutrophils # Seg Neutrophils # Man Lymphocytes # (Manual) Basophils # (Manual) POC ABG pH POC ABG pCO2 POC ABG pO2 Sodium Potassium Chloride Carbon Dioxide BUN Creatinine Glucose POC Glucose 130 H 165 H 131 H Hemoglobin A1c Calcium Phosphorus Magnesium AST Alkaline Phosphatase Total Protein Albumin Urine Creatinine Urine Total Protein 05/31/17 05/31/17 05/31/17 18:46 19:54 20:36 WBC RBC Hgb Hct MCH RDW Plt Count Lymph % (Auto) Charles % (Auto) Charles # Seg Neutrophils % Seg Neuts % (Manual) Lymphocytes % (Manual) Basophils % (Manual) Seg Neutrophils # Seg Neutrophils # Man Lymphocytes # (Manual) Basophils # (Manual) POC ABG pH POC ABG pCO2 POC ABG pO2 Sodium Potassium Chloride Carbon Dioxide BUN 29 H Creatinine 2.4 H Glucose 124 H POC Glucose 128 H 157 H Hemoglobin A1c Calcium 7.9 L Phosphorus Magnesium AST Alkaline Phosphatase Total Protein Albumin Urine Creatinine Urine Total Protein 05/31/17 06/01/17 06/01/17 21:41 03:22 04:06 WBC RBC Hgb Hct MCH RDW Plt Count Lymph % (Auto) Charles % (Auto) Charles # Seg Neutrophils % Seg Neuts % (Manual) Lymphocytes % (Manual) Basophils % (Manual) Seg Neutrophils # Seg Neutrophils # Man Lymphocytes # (Manual) Basophils # (Manual) POC ABG pH POC ABG pCO2 POC ABG pO2 Sodium Potassium Chloride Carbon Dioxide 19 L BUN 29 H Creatinine 2.6 H Glucose 205 H POC Glucose 158 H 251 H Hemoglobin A1c Calcium 7.8 L Phosphorus Magnesium AST Alkaline Phosphatase Total Protein Albumin Urine Creatinine Urine Total Protein 06/01/17 06/01/17 06/01/17 04:30 09:15 09:59 WBC 19.7 H RBC Hgb 10.0 L Hct MCH 27 L RDW 17.1 H Plt Count Lymph % (Auto) Charles % (Auto) Charles # Seg Neutrophils % Seg Neuts % (Manual) Lymphocytes % (Manual) Basophils % (Manual) Seg Neutrophils # Seg Neutrophils # Man Lymphocytes # (Manual) Basophils # (Manual) POC ABG pH 7.464 H POC ABG pCO2 31.3 L POC ABG pO2 Sodium Potassium Chloride Carbon Dioxide BUN Creatinine Glucose POC Glucose 330 H Hemoglobin A1c Calcium Phosphorus Magnesium AST Alkaline Phosphatase Total Protein Albumin Urine Creatinine Urine Total Protein 06/01/17 06/01/17 06/01/17 11:36 12:25 13:43 WBC RBC Hgb Hct MCH RDW Plt Count Lymph % (Auto) Charles % (Auto) Charles # Seg Neutrophils % Seg Neuts % (Manual) Lymphocytes % (Manual) Basophils % (Manual) Seg Neutrophils # Seg Neutrophils # Man Lymphocytes # (Manual) Basophils # (Manual) POC ABG pH POC ABG pCO2 POC ABG pO2 Sodium Potassium Chloride Carbon Dioxide BUN Creatinine Glucose POC Glucose 431 H 434 H 445 H Hemoglobin A1c Calcium Phosphorus Magnesium AST Alkaline Phosphatase Total Protein Albumin Urine Creatinine Urine Total Protein 06/01/17 06/01/17 06/01/17 14:26 15:46 16:03 WBC RBC Hgb Hct MCH RDW Plt Count Lymph % (Auto) Charles % (Auto) Charles # Seg Neutrophils % Seg Neuts % (Manual) Lymphocytes % (Manual) Basophils % (Manual) Seg Neutrophils # Seg Neutrophils # Man Lymphocytes # (Manual) Basophils # (Manual) POC ABG pH POC ABG pCO2 POC ABG pO2 Sodium Potassium Chloride Carbon Dioxide BUN Creatinine Glucose POC Glucose 310 H 292 H 244 H Hemoglobin A1c Calcium Phosphorus Magnesium AST Alkaline Phosphatase Total Protein Albumin Urine Creatinine Urine Total Protein 06/01/17 06/01/17 06/01/17 16:59 17:49 19:05 WBC RBC Hgb Hct MCH RDW Plt Count Lymph % (Auto) Charles % (Auto) Charles # Seg Neutrophils % Seg Neuts % (Manual) Lymphocytes % (Manual) Basophils % (Manual) Seg Neutrophils # Seg Neutrophils # Man Lymphocytes # (Manual) Basophils # (Manual) POC ABG pH POC ABG pCO2 POC ABG pO2 Sodium Potassium Chloride Carbon Dioxide BUN Creatinine Glucose POC Glucose 260 H 203 H 156 H Hemoglobin A1c Calcium Phosphorus Magnesium AST Alkaline Phosphatase Total Protein Albumin Urine Creatinine Urine Total Protein 06/02/17 06/02/17 06/02/17 00:09 01:06 02:31 WBC RBC Hgb Hct MCH RDW Plt Count Lymph % (Auto) Charles % (Auto) Charles # Seg Neutrophils % Seg Neuts % (Manual) Lymphocytes % (Manual) Basophils % (Manual) Seg Neutrophils # Seg Neutrophils # Man Lymphocytes # (Manual) Basophils # (Manual) POC ABG pH POC ABG pCO2 POC ABG pO2 Sodium Potassium Chloride Carbon Dioxide BUN Creatinine Glucose POC Glucose 137 H 146 H 182 H Hemoglobin A1c Calcium Phosphorus Magnesium AST Alkaline Phosphatase Total Protein Albumin Urine Creatinine Urine Total Protein 06/02/17 06/02/17 06/02/17 04:03 04:24 04:24 WBC 21.0 H RBC 3.62 L Hgb Hct 29.6 L MCH RDW 16.5 H Plt Count Lymph % (Auto) Charles % (Auto) Charles # Seg Neutrophils % Seg Neuts % (Manual) 98.0 H Lymphocytes % (Manual) 1.0 L Basophils % (Manual) Seg Neutrophils # Seg Neutrophils # Man 20.6 H Lymphocytes # (Manual) 0.2 L Basophils # (Manual) POC ABG pH POC ABG pCO2 POC ABG pO2 Sodium Potassium Chloride Carbon Dioxide 20 L BUN 36 H Creatinine 2.8 H Glucose 137 H POC Glucose 150 H Hemoglobin A1c Calcium 7.5 L Phosphorus 4.60 H Magnesium 1.50 L AST Alkaline Phosphatase 132 H Total Protein 4.1 L Albumin 1.7 L Urine Creatinine Urine Total Protein 06/02/17 06/02/17 06/02/17 05:01 05:14 06:20 WBC RBC Hgb Hct MCH RDW Plt Count Lymph % (Auto) Charles % (Auto) Charles # Seg Neutrophils % Seg Neuts % (Manual) Lymphocytes % (Manual) Basophils % (Manual) Seg Neutrophils # Seg Neutrophils # Man Lymphocytes # (Manual) Basophils # (Manual) POC ABG pH 7.517 H POC ABG pCO2 28.4 L POC ABG pO2 67 L Sodium Potassium Chloride Carbon Dioxide BUN Creatinine Glucose POC Glucose 137 H 163 H Hemoglobin A1c Calcium Phosphorus Magnesium AST Alkaline Phosphatase Total Protein Albumin Urine Creatinine Urine Total Protein 06/02/17 06/02/17 06/02/17 07:43 09:40 10:18 WBC RBC Hgb Hct MCH RDW Plt Count Lymph % (Auto) Charles % (Auto) Charles # Seg Neutrophils % Seg Neuts % (Manual) Lymphocytes % (Manual) Basophils % (Manual) Seg Neutrophils # Seg Neutrophils # Man Lymphocytes # (Manual) Basophils # (Manual) POC ABG pH POC ABG pCO2 POC ABG pO2 Sodium Potassium Chloride Carbon Dioxide BUN Creatinine Glucose POC Glucose 135 H 196 H Hemoglobin A1c Calcium Phosphorus Magnesium AST Alkaline Phosphatase Total Protein Albumin Urine Creatinine Urine Total Protein < 4 L 06/02/17 06/02/17 06/02/17 10:33 11:55 17:39 WBC RBC Hgb Hct MCH RDW Plt Count Lymph % (Auto) Charles % (Auto) Charles # Seg Neutrophils % Seg Neuts % (Manual) Lymphocytes % (Manual) Basophils % (Manual) Seg Neutrophils # Seg Neutrophils # Man Lymphocytes # (Manual) Basophils # (Manual) POC ABG pH POC ABG pCO2 POC ABG pO2 Sodium Potassium Chloride Carbon Dioxide BUN Creatinine Glucose POC Glucose 188 H 110 H 150 H Hemoglobin A1c Calcium Phosphorus Magnesium AST Alkaline Phosphatase Total Protein Albumin Urine Creatinine Urine Total Protein 06/02/17 06/02/17 06/03/17 18:12 21:32 02:02 WBC RBC Hgb Hct MCH RDW Plt Count Lymph % (Auto) Charles % (Auto) Charles # Seg Neutrophils % Seg Neuts % (Manual) Lymphocytes % (Manual) Basophils % (Manual) Seg Neutrophils # Seg Neutrophils # Man Lymphocytes # (Manual) Basophils # (Manual) POC ABG pH POC ABG pCO2 POC ABG pO2 Sodium Potassium Chloride Carbon Dioxide BUN Creatinine Glucose POC Glucose 131 H 143 H 191 H Hemoglobin A1c Calcium Phosphorus Magnesium AST Alkaline Phosphatase Total Protein Albumin Urine Creatinine Urine Total Protein 06/03/17 06/03/17 06/03/17 04:14 04:14 05:06 WBC 21.1 H RBC Hgb Hct MCH 27 L RDW 15.9 H Plt Count 447 H Lymph % (Auto) Charles % (Auto) Charles # Seg Neutrophils % Seg Neuts % (Manual) 94.0 H Lymphocytes % (Manual) 3.0 L Basophils % (Manual) Seg Neutrophils # Seg Neutrophils # Man 19.8 H Lymphocytes # (Manual) 0.6 L Basophils # (Manual) POC ABG pH POC ABG pCO2 28.6 L POC ABG pO2 112 H Sodium Potassium Chloride Carbon Dioxide 14 L BUN 45 H Creatinine 2.8 H Glucose 211 H POC Glucose Hemoglobin A1c Calcium 8.0 L Phosphorus Magnesium AST Alkaline Phosphatase Total Protein Albumin Urine Creatinine Urine Total Protein 06/03/17 06/03/17 06/03/17 06:00 10:20 13:43 WBC RBC Hgb Hct MCH RDW Plt Count Lymph % (Auto) Charles % (Auto) Charles # Seg Neutrophils % Seg Neuts % (Manual) Lymphocytes % (Manual) Basophils % (Manual) Seg Neutrophils # Seg Neutrophils # Man Lymphocytes # (Manual) Basophils # (Manual) POC ABG pH POC ABG pCO2 POC ABG pO2 Sodium Potassium Chloride Carbon Dioxide BUN Creatinine Glucose POC Glucose 224 H 226 H 296 H Hemoglobin A1c Calcium Phosphorus Magnesium AST Alkaline Phosphatase Total Protein Albumin Urine Creatinine Urine Total Protein 06/03/17 06/03/17 06/03/17 17:38 19:23 20:45 WBC RBC Hgb Hct MCH RDW Plt Count Lymph % (Auto) Charles % (Auto) Charles # Seg Neutrophils % Seg Neuts % (Manual) Lymphocytes % (Manual) Basophils % (Manual) Seg Neutrophils # Seg Neutrophils # Man Lymphocytes # (Manual) Basophils # (Manual) POC ABG pH POC ABG pCO2 POC ABG pO2 Sodium Potassium Chloride Carbon Dioxide BUN Creatinine Glucose POC Glucose 295 H 275 H 338 H Hemoglobin A1c Calcium Phosphorus Magnesium AST Alkaline Phosphatase Total Protein Albumin Urine Creatinine Urine Total Protein 06/03/17 06/03/17 06/04/17 21:50 23:08 00:16 WBC RBC Hgb Hct MCH RDW Plt Count Lymph % (Auto) Charles % (Auto) Charles # Seg Neutrophils % Seg Neuts % (Manual) Lymphocytes % (Manual) Basophils % (Manual) Seg Neutrophils # Seg Neutrophils # Man Lymphocytes # (Manual) Basophils # (Manual) POC ABG pH POC ABG pCO2 POC ABG pO2 Sodium Potassium Chloride Carbon Dioxide BUN Creatinine Glucose POC Glucose 223 H 214 H 226 H Hemoglobin A1c Calcium Phosphorus Magnesium AST Alkaline Phosphatase Total Protein Albumin Urine Creatinine Urine Total Protein 06/04/17 06/04/17 06/04/17 01:05 02:07 03:27 WBC RBC Hgb Hct MCH RDW Plt Count Lymph % (Auto) Charles % (Auto) Charles # Seg Neutrophils % Seg Neuts % (Manual) Lymphocytes % (Manual) Basophils % (Manual) Seg Neutrophils # Seg Neutrophils # Man Lymphocytes # (Manual) Basophils # (Manual) POC ABG pH POC ABG pCO2 POC ABG pO2 Sodium Potassium Chloride Carbon Dioxide BUN Creatinine Glucose POC Glucose 217 H 229 H 185 H Hemoglobin A1c Calcium Phosphorus Magnesium AST Alkaline Phosphatase Total Protein Albumin Urine Creatinine Urine Total Protein 06/04/17 06/04/17 06/04/17 03:52 04:05 04:05 WBC 19.6 H RBC Hgb Hct MCH 26 L RDW 15.6 H Plt Count 564 H Lymph % (Auto) 7.3 L Charles % (Auto) 10.8 H Charles # 2.1 H Seg Neutrophils % 81.4 H Seg Neuts % (Manual) Lymphocytes % (Manual) Basophils % (Manual) Seg Neutrophils # 15.9 H Seg Neutrophils # Man Lymphocytes # (Manual) Basophils # (Manual) POC ABG pH POC ABG pCO2 POC ABG pO2 Sodium Potassium Chloride Carbon Dioxide 17 L BUN 52 H Creatinine 2.5 H Glucose 163 H POC Glucose 181 H Hemoglobin A1c Calcium 7.9 L Phosphorus Magnesium AST Alkaline Phosphatase Total Protein Albumin Urine Creatinine Urine Total Protein 06/04/17 06/04/17 06/04/17 04:56 05:39 06:12 WBC RBC Hgb Hct MCH RDW Plt Count Lymph % (Auto) Charles % (Auto) Charles # Seg Neutrophils % Seg Neuts % (Manual) Lymphocytes % (Manual) Basophils % (Manual) Seg Neutrophils # Seg Neutrophils # Man Lymphocytes # (Manual) Basophils # (Manual) POC ABG pH 7.486 H POC ABG pCO2 26.8 L POC ABG pO2 Sodium Potassium Chloride Carbon Dioxide BUN Creatinine Glucose POC Glucose 208 H 225 H Hemoglobin A1c Calcium Phosphorus Magnesium AST Alkaline Phosphatase Total Protein Albumin Urine Creatinine Urine Total Protein 06/04/17 06/04/17 06/04/17 07:07 08:06 09:15 WBC RBC Hgb Hct MCH RDW Plt Count Lymph % (Auto) Charles % (Auto) Charles # Seg Neutrophils % Seg Neuts % (Manual) Lymphocytes % (Manual) Basophils % (Manual) Seg Neutrophils # Seg Neutrophils # Man Lymphocytes # (Manual) Basophils # (Manual) POC ABG pH POC ABG pCO2 POC ABG pO2 Sodium Potassium Chloride Carbon Dioxide BUN Creatinine Glucose POC Glucose 201 H 171 H 178 H Hemoglobin A1c Calcium Phosphorus Magnesium AST Alkaline Phosphatase Total Protein Albumin Urine Creatinine Urine Total Protein 06/04/17 06/04/17 06/04/17 10:16 12:22 17:21 WBC RBC Hgb Hct MCH RDW Plt Count Lymph % (Auto) Charles % (Auto) Charles # Seg Neutrophils % Seg Neuts % (Manual) Lymphocytes % (Manual) Basophils % (Manual) Seg Neutrophils # Seg Neutrophils # Man Lymphocytes # (Manual) Basophils # (Manual) POC ABG pH POC ABG pCO2 POC ABG pO2 Sodium Potassium Chloride Carbon Dioxide BUN Creatinine Glucose POC Glucose 191 H 188 H Hemoglobin A1c Calcium Phosphorus Magnesium AST Alkaline Phosphatase Total Protein Albumin Urine Creatinine 78.7 H Urine Total Protein 197 H 06/04/17 06/04/17 06/05/17 17:56 22:10 00:00 WBC RBC Hgb Hct MCH RDW Plt Count Lymph % (Auto) Charles % (Auto) Charles # Seg Neutrophils % Seg Neuts % (Manual) Lymphocytes % (Manual) Basophils % (Manual) Seg Neutrophils # Seg Neutrophils # Man Lymphocytes # (Manual) Basophils # (Manual) POC ABG pH POC ABG pCO2 POC ABG pO2 Sodium Potassium Chloride Carbon Dioxide 17 L BUN 55 H Creatinine 2.3 H Glucose 300 H POC Glucose 266 H 337 H Hemoglobin A1c Calcium 7.4 L Phosphorus Magnesium AST Alkaline Phosphatase Total Protein Albumin Urine Creatinine Urine Total Protein 06/05/17 06/05/17 06/05/17 03:26 04:11 05:13 WBC RBC Hgb Hct MCH RDW Plt Count Lymph % (Auto) Charles % (Auto) Charles # Seg Neutrophils % Seg Neuts % (Manual) Lymphocytes % (Manual) Basophils % (Manual) Seg Neutrophils # Seg Neutrophils # Man Lymphocytes # (Manual) Basophils # (Manual) POC ABG pH 7.586 H POC ABG pCO2 22.6 L POC ABG pO2 179 H Sodium Potassium Chloride Carbon Dioxide 19 L BUN 55 H Creatinine 2.2 H Glucose 226 H POC Glucose 220 H Hemoglobin A1c Calcium 7.7 L Phosphorus Magnesium AST Alkaline Phosphatase Total Protein Albumin Urine Creatinine Urine Total Protein Chest x-ray: report reviewed, image reviewed
--- NOTE | 2017-06-05 13:40 | Progress Note ---
Assessment and Plan - Patient Problems (1) Acute renal failure with tubular necrosis Current Visit: Yes Status: Acute Plan to address problem: most likely du to ATN s/p PEA arrest superimposed on CKD/diabetic nephropathy. Echocardiogram shows 4 chamber dilated cardiomyopathy with LVEF 15-20%. acute cardiorenal syndrome contributing to JERRI pt remains non-oliguric, responding to diuretic therapy cont supportive care for JERRI/ATN avoid nephrotoxins, NSAIDs, IV contrast overall poor prognosis (2) Acute respiratory failure Current Visit: Yes Status: Acute Qualifiers: Respiratory failure complication: hypoxia Qualified Code(s): J96.01 - Acute respiratory failure with hypoxia Plan to address problem: vent management as per pulm/CCM (3) Hyperosmolar non-ketotic state in patient with type 2 diabetes mellitus Current Visit: Yes Status: Acute Plan to address problem: glucose control improved, management as per primary attending (4) Seizure Current Visit: Yes Status: Acute Plan to address problem: neuro following (5) Proteinuria Current Visit: Yes Status: Acute Plan to address problem: likely due to underlying diabetic nephropathy. hold ARAM-I/ARB for now given JERRI (6) Hypertension Current Visit: Yes Status: Acute Qualifiers: Hypertension type: essential hypertension Qualified Code(s): I10 - Essential (primary) hypertension Plan to address problem: monitor BP on current meds (7) Acute systolic heart failure Current Visit: Yes Status: Acute Plan to address problem: Echocardiogram shows 4 chamber dilated cardiomyopathy with LVEF 15-20%. acute cardiorenal syndrome contributing to JERRI. cont IV diuresis with lasix 40mg bid will add metolazone 5mg po bid to target net negative fluid balance Subjective Date of service: 06/05/17 Principal diagnosis: Acute respiratory failure Interval history: pt remains on vent, unresponsive Objective - Vital Signs Vital signs: Vital Signs - 12hr 06/05/17 06/05/17 06/05/17 01:41 01:50 02:00 Temperature Pulse Rate 105 H 101 H 104 H Respiratory 20 18 17 Rate Blood Pressure 171/105 143/84 146/82 O2 Sat by Pulse 98 100 100 Oximetry 06/05/17 06/05/17 06/05/17 02:11 02:21 02:30 Temperature Pulse Rate 102 H 104 H 101 H Respiratory 18 20 17 Rate Blood Pressure 146/82 146/82 151/85 O2 Sat by Pulse 100 100 100 Oximetry 03/06/05/17 06/05/17 02:41 02:51 03:00 Temperature Pulse Rate 98 H 101 H 104 H Respiratory 16 16 17 Rate Blood Pressure 151/85 151/85 159/94 O2 Sat by Pulse 100 100 100 Oximetry 06/05/17 06/05/17 06/05/17 03:11 03:14 03:18 Temperature 98.1 F Pulse Rate 115 H 110 H Respiratory 23 22 Rate Blood Pressure 159/94 159/94 O2 Sat by Pulse 100 100 Oximetry 06/05/17 06/05/17 06/05/17 03:21 03:30 03:41 Temperature Pulse Rate 110 H 107 H 106 H Respiratory 21 21 19 Rate Blood Pressure 159/94 165/92 165/92 O2 Sat by Pulse 100 99 100 Oximetry 06/05/17 06/05/17 06/05/17 03:51 03:54 04:01 Temperature Pulse Rate 109 H 109 H 107 H Respiratory 18 19 Rate Blood Pressure 165/92 165/92 153/83 O2 Sat by Pulse 100 100 Oximetry 06/05/17 06/05/17 06/05/17 04:11 04:21 04:31 Temperature Pulse Rate 111 H 110 H 109 H Respiratory 21 20 18 Rate Blood Pressure 153/83 153/83 152/83 O2 Sat by Pulse 99 99 99 Oximetry 06/05/17 06/05/17 06/05/17 04:41 04:51 05:01 Temperature Pulse Rate 111 H 111 H 114 H Respiratory 20 20 20 Rate Blood Pressure 152/83 152/83 150/83 O2 Sat by Pulse 99 99 99 Oximetry 06/05/17 06/05/17 06/05/17 05:11 05:21 05:30 Temperature 98.4 F Pulse Rate 110 H 109 H Respiratory 19 19 Rate Blood Pressure 150/83 150/83 O2 Sat by Pulse 99 99 Oximetry 06/05/17 06/05/17 06/05/17 05:31 05:41 05:51 Temperature Pulse Rate 114 H 109 H 105 H Respiratory 20 20 18 Rate Blood Pressure 175/92 168/84 168/84 O2 Sat by Pulse 99 99 99 Oximetry 06/05/17 06/05/17 06/05/17 06:01 06:11 06:21 Temperature Pulse Rate 105 H 105 H 105 H Respiratory 19 20 19 Rate Blood Pressure 150/86 150/86 150/86 O2 Sat by Pulse 99 100 100 Oximetry 06/05/18 06/05/18 18 06:31 06:41 06:51 Temperature Pulse Rate 104 H 107 H 104 H Respiratory 19 20 20 Rate Blood Pressure 147/87 147/87 147/87 O2 Sat by Pulse 100 100 100 Oximetry 06/05/18 06/05/18 06/05/17 07:01 07:11 07:21 Temperature Pulse Rate 105 H 105 H 103 H Respiratory 19 18 18 Rate Blood Pressure 166/91 166/91 166/91 O2 Sat by Pulse 99 100 100 Oximetry 06/05/1706/05/18 06/05/17 07:31 07:41 07:50 Temperature Pulse Rate 107 H 100 H 105 H Respiratory 21 17 19 Rate Blood Pressure 162/90 162/90 160/90 O2 Sat by Pulse 100 100 100 Oximetry 18 06/05/18 06/05/17 07:51 08:00 08:01 Temperature 98 F Pulse Rate 105 H 107 H Respiratory 20 21 Rate Blood Pressure 162/90 181/100 O2 Sat by Pulse 100 100 Oximetry 06/05/1706/05/18 06/05/17 08:11 08:21 08:31 Temperature Pulse Rate 102 H 104 H 104 H Respiratory 19 19 20 Rate Blood Pressure 181/100 181/100 167/92 O2 Sat by Pulse 100 100 100 Oximetry 06/05/1706/05/18 06/05/17 08:41 08:51 09:01 Temperature Pulse Rate 108 H 97 H 104 H Respiratory 21 15 18 Rate Blood Pressure 167/92 167/92 175/94 O2 Sat by Pulse 100 99 100 Oximetry 06/05/1706/05/18 06/05/17 09:11 09:21 09:31 Temperature Pulse Rate 101 H 106 H 96 H Respiratory 18 18 16 Rate Blood Pressure 175/94 175/94 160/85 O2 Sat by Pulse 100 100 100 Oximetry 06/05/18 06/05/18 06/05/17 09:41 09:51 10:01 Temperature Pulse Rate 105 H 96 H 105 H Respiratory 21 15 21 Rate Blood Pressure 160/85 160/85 172/99 O2 Sat by Pulse 100 100 100 Oximetry 06/05/1706/05/18 18 10:11 10:21 10:29 Temperature Pulse Rate 97 H 108 H 109 H Respiratory 13 20 Rate Blood Pressure 172/99 172/99 172/99 O2 Sat by Pulse 100 100 Oximetry 06/05/17 06/05/17 06/05/17 10:31 10:41 10:51 Temperature Pulse Rate 106 H 113 H 110 H Respiratory 19 23 19 Rate Blood Pressure 183/101 183/101 183/101 O2 Sat by Pulse 100 99 99 Oximetry 06/05/17 06/05/17 06/05/17 11:01 11:11 11:21 Temperature Pulse Rate 111 H 106 H 108 H Respiratory 21 17 21 Rate Blood Pressure 183/101 172/99 172/99 O2 Sat by Pulse 98 97 98 Oximetry 06/05/17 06/05/17 11:31 12:00 Temperature Pulse Rate 104 H 97 H Respiratory 19 16 Rate Blood Pressure 138/76 136/71 O2 Sat by Pulse 98 99 Oximetry - General Appearance General appearance: well-developed, well-nourished, appears stated age, intubated, comatose EENT: ATNC, mucous membranes moist Neck: no JVD Respiratory: Present: Decreased Breath Sounds Cardiology: regular, S1S2 Gastrointestinal: normoactive bowel sounds Integumentary: no rash, other (2+ edema b/l UE/LE) Neurologic: other (on vent, unresponsive ) - Lab 06/04/17 04:05 06/05/17 04:11 Most recent lab results Calcium 7.7 mg/dL (8.4-10.2) L 06/05/17 04:11 Phosphorus 4.60 mg/dL (2.5-4.5) H 06/02/17 04:24 Magnesium 1.50 mg/dL (1.7-2.3) L 06/02/17 04:24 Urine Creatinine 78.7 mg/dL (0.1-20.0) H 06/04/17 17:21 Urine Sodium 10 mmol/L 06/02/17 10:18 Urine Total Protein 197 mg/dL (5-11.8) H 06/04/17 17:21
[2017-06-05] MEDS ORDERED: ZAROXOLYN PO SCH (14:00)
[2017-06-05] MEDS: APRESOLINE PO SCH ×2 (14:04→21:05)
[2017-06-05] MEDS: ISORDIL TITRADOSE PO SCH ×2 (14:04→21:05)
[2017-06-05] MEDS: ZAROXOLYN PO SCH ×2 (16:30→21:06)
--- NOTE | 2017-06-05 18:26 | Progress Note ---
Assessment and Plan Assessment and plan: 36-year-old -[place] female was admitted to the floor for seizure episode, altered mental status, acute hypoxic respiratory failure, patient was intubated in the emergency department patient had PEA and resuscitated successfully. 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 at bedside today -MRI reviewed, D/[facility] -[place] [facility] Seizure disorder-complex partial - Patient is on IV Keppra -try memantine -Neurology following -Await MRI Cardiomyopathy-possible -Cardiology consult HONK - on Insulin drip - Continue Insulin drip, Advised nursing about gap and need to continue and the transition method. Patient has episodes of hypothermia and leukocytosis - Blood culture was taken and empirically on Vanc and Zosyn - Further rise in Leukocytosis likely secondary to Steroids Acute renal failure - Continue IV fluids Malnutrition - Patient is currently on on OG-tube feeding Hypertension - Continue home medications ?Cardiac arrest DVT prophylaxis Disposition - Continue ICU care. poor prognosis Discussed with family The high probability of a clinically significant, sudden or life threatening deterioration of the [respiratory, cardiovascular, neurologic, renal] system(s) required my full and direct attention, intervention and personal management. The aggregate critical care time was [35] minutes. This time is in addition to time spent performing reported procedures but includes the following: [x] Data Review and interpretation [x] Patient assessment and monitoring of vital signs [x] Documentation [x] Medication orders and management History Interval history: Patient seen and examined remains unresponsive on mechanical ventilation. Off sedation. NO clinical change. at bedside Hospitalist Physical - Physical exam Narrative exam: Not in cardiopulmonary distress. The patient appeared well nourished and normally developed. Vital signs as documented. HEENT: Swelling of orbital, oral and facial soft tissue structures. ETT is in place No scleral icterus . Neck is without jugular venous distension, thyromegaly, or carotid bruits. Lungs are clear to auscultation. Cardiac exam reveals regular rate and Rhythm. First and second heart sounds normal. No murmurs, rubs or gallops. Abdominal exam reveals normal bowel sounds, no masses, no organomegaly and no aortic enlargement. Extremities are nonedematous and both femoral and pedal pulses are normal. Neuro: None responsive. Spontaneous eye opening observed. - Constitutional Vitals: Temp Pulse Resp BP Pulse Ox 98 F 97 H 19 148/79 99 06/05/17 08:00 06/05/17 16:00 06/05/17 16:00 06/05/17 16:00 06/05/17 16:00 General appearance: Present: other (unresponsive, on the ventilator) Results - Labs CBC & Chem 7: 06/04/17 04:05 06/05/17 04:11 Labs: Laboratory Last Values WBC 19.6 K/mm3 (4.5-11.0) H 06/04/17 04:05 RBC 3.94 M/mm3 (3.65-5.03) 06/04/17 04:05 Hgb 10.4 gm/dl (10.1-14.3) 06/04/17 04:05 Hct 32.1 % (30.3-42.9) 06/04/17 04:05 MCV 81 fl (79-97) 06/04/17 04:05 MCH 26 pg (28-32) L 06/04/17 04:05 MCHC 32 % (30-34) 06/04/17 04:05 RDW 15.6 % (13.2-15.2) H 06/04/17 04:05 Plt Count 564 K/mm3 (140-440) H 06/04/17 04:05 Lymph % (Auto) 7.3 % (13.4-35.0) L 06/04/17 04:05 Dent % (Auto) 10.8 % (0.0-7.3) H 06/04/17 04:05 Eos % (Auto) 0.1 % (0.0-4.3) 06/04/17 04:05 Baso % (Auto) 0.4 % (0.0-1.8) 06/04/17 04:05 Lymph # 1.4 K/mm3 (1.2-5.4) 06/04/17 04:05 Dent # 2.1 K/mm3 (0.0-0.8) H 06/04/17 04:05 Eos # 0.0 K/mm3 (0.0-0.4) 06/04/17 04:05 Baso # 0.1 K/mm3 (0.0-0.1) 06/04/17 04:05 Add Manual Diff Complete 06/03/17 04:14 Total Counted 100 06/03/17 04:14 Seg Neutrophils % 81.4 % (40.0-70.0) H 06/04/17 04:05 Seg Neuts % (Manual) 94.0 % (40.0-70.0) H 06/03/17 04:14 Band Neutrophils % 0 % 06/03/17 04:14 Lymphocytes % (Manual) 3.0 % (13.4-35.0) L 06/03/17 04:14 Reactive Lymphs % (Man) 0 % 06/03/17 04:14 Monocytes % (Manual) 3.0 % (0.0-7.3) 06/03/17 04:14 Eosinophils % (Manual) 0 % (0.0-4.3) 06/03/17 04:14 Basophils % (Manual) 0 % (0.0-1.8) 06/03/17 04:14 Metamyelocytes % 0 % 06/03/17 04:14 Myelocytes % 0 % 06/03/17 04:14 Promyelocytes % 0 % 06/03/17 04:14 Blast Cells % 0 % 06/03/17 04:14 Nucleated RBC % Not Reportable 06/03/17 04:14 Seg Neutrophils # 15.9 K/mm3 (1.8-7.7) H 06/04/17 04:05 Seg Neutrophils # Man 19.8 K/mm3 (1.8-7.7) H 06/03/17 04:14 Band Neutrophils # 0.0 K/mm3 06/03/17 04:14 Lymphocytes # (Manual) 0.6 K/mm3 (1.2-5.4) L 06/03/17 04:14 Abs React Lymphs (Man) 0.0 K/mm3 06/03/17 04:14 Monocytes # (Manual) 0.6 K/mm3 (0.0-0.8) 06/03/17 04:14 Eosinophils # (Manual) 0.0 K/mm3 (0.0-0.4) 06/03/17 04:14 Basophils # (Manual) 0.0 K/mm3 (0.0-0.1) 06/03/17 04:14 Metamyelocytes # 0.0 K/mm3 06/03/17 04:14 Myelocytes # 0.0 K/mm3 06/03/17 04:14 Promyelocytes # 0.0 K/mm3 06/03/17 04:14 Blast Cells # 0.0 K/mm3 06/03/17 04:14 WBC Morphology Not Reportable 06/03/17 04:14 Hypersegmented Neuts Not Reportable 06/03/17 04:14 Hyposegmented Neuts Not Reportable 06/03/17 04:14 Hypogranular Neuts Not Reportable 06/03/17 04:14 Smudge Cells Not Reportable 06/03/17 04:14 Toxic Granulation Not Reportable 06/03/17 04:14 Toxic Vacuolation Not Reportable 06/03/17 04:14 Dohle Bodies Not Reportable 06/03/17 04:14 Pelger-Huet Anomaly Not Reportable 06/03/17 04:14 Don Rods Not Reportable 06/03/17 04:14 Platelet Estimate Consistent w auto 06/03/17 04:14 Clumped Platelets Not Reportable 06/03/17 04:14 Plt Clumps, EDTA Not Reportable 06/03/17 04:14 Large Platelets Not Reportable 06/03/17 04:14 Giant Platelets Not Reportable 06/03/17 04:14 Platelet Satelliting Not Reportable 06/03/17 04:14 Plt Morphology Comment Not Reportable 06/03/17 04:14 RBC Morphology Not Reportable 06/03/17 04:14 Dimorphic RBCs Not Reportable 06/03/17 04:14 Polychromasia Not Reportable 06/03/17 04:14 Hypochromasia Not Reportable 06/03/17 04:14 Poikilocytosis Not Reportable 06/03/17 04:14 Anisocytosis Not Reportable 06/03/17 04:14 Microcytosis Not Reportable 06/03/17 04:14 Macrocytosis Not Reportable 06/03/17 04:14 Spherocytes Not Reportable 06/03/17 04:14 Pappenheimer Bodies Not Reportable 06/03/17 04:14 Sickle Cells Not Reportable 06/03/17 04:14 Target Cells Not Reportable 06/03/17 04:14 Tear Drop Cells Not Reportable 06/03/17 04:14 Ovalocytes Not Reportable 06/03/17 04:14 Helmet Cells Not Reportable 06/03/17 04:14 Wade-Oketo Bodies Not Reportable 06/03/17 04:14 Union Rings Not Reportable 06/03/17 04:14 Doss Cells Not Reportable 06/03/17 04:14 Bite Cells Not Reportable 06/03/17 04:14 Crenated Cell Not Reportable 06/03/17 04:14 Elliptocytes Not Reportable 06/03/17 04:14 Acanthocytes (Spur) Not Reportable 06/03/17 04:14 Rouleaux Not Reportable 06/03/17 04:14 Hemoglobin C Crystals Not Reportable 06/03/17 04:14 Schistocytes Not Reportable 06/03/17 04:14 Malaria parasites Not Reportable 06/03/17 04:14 Fadi Bodies Not Reportable 06/03/17 04:14 Hem Pathologist Commnt No 06/03/17 04:14 POC ABG pH 7.586 (7.35-7.45) H 06/05/17 03:26 POC ABG pCO2 22.6 (35-45) L 06/05/17 03:26 POC ABG pO2 179 (80-105) H 06/05/17 03:26 POC ABG HCO3 21.4 06/05/17 03:26 POC ABG Total CO2 22 06/05/17 03:26 POC ABG O2 Sat 100 06/05/17 03:26 POC ABG Base Excess 0 06/05/17 03:26 VBG pH 7.327 (7.320-7.420) 05/30/17 10:43 FiO2 30 % 06/05/17 03:26 Sodium 138 mmol/L (137-145) 06/05/17 04:11 Potassium 3.7 mmol/L (3.6-5.0) 06/05/17 04:11 Chloride 105.7 mmol/L (98-107) 06/05/17 04:11 Carbon Dioxide 19 mmol/L (22-30) L 06/05/17 04:11 Anion Gap 17 mmol/L 06/05/17 04:11 BUN 55 mg/dL (7-17) H 06/05/17 04:11 Creatinine 2.2 mg/dL (0.7-1.2) H 06/05/17 04:11 Estimated GFR 31 ml/min 06/05/17 04:11 BUN/Creatinine Ratio 25 % 06/05/17 04:11 Glucose 226 mg/dL (65-100) H 06/05/17 04:11 POC Glucose 168 (70-105) H 06/05/17 12:42 Hemoglobin A1c 9.7 % (4-6) H 05/31/17 05:45 Calcium 7.7 mg/dL (8.4-10.2) L 06/05/17 04:11 Phosphorus 4.60 mg/dL (2.5-4.5) H 06/02/17 04:24 Magnesium 1.50 mg/dL (1.7-2.3) L 06/02/17 04:24 Total Bilirubin 0.50 mg/dL (0.1-1.2) 06/02/17 04:24 AST 23 units/L (5-40) 06/02/17 04:24 ALT 14 units/L (7-56) 06/02/17 04:24 Alkaline Phosphatase 132 units/L (35-129) H 06/02/17 04:24 Total Protein 4.1 g/dL (6.3-8.2) L 06/02/17 04:24 Albumin 1.7 g/dL (3.9-5) L 06/02/17 04:24 Albumin/Globulin Ratio 0.7 % 06/02/17 04:24 Urine Color Yellow (Yellow) 05/30/17 15:04 Urine Turbidity Clear (Clear) 05/30/17 15:04 Urine pH 7.0 (5.0-7.0) 05/30/17 15:04 Ur Specific Rolfe 1.021 (1.003-1.030) 05/30/17 15:04 Urine Protein >500 mg/dL (Negative) 05/30/17 15:04 Urine Glucose (UA) >=500 mg/dL (Negative) 05/30/17 15:04 Urine Ketones Tr mg/dL (Negative) 05/30/17 15:04 Urine Blood Sm (Negative) 05/30/17 15:04 Urine Nitrite Neg (Negative) 05/30/17 15:04 Urine Bilirubin Neg (Negative) 05/30/17 15:04 Urine Urobilinogen < 2.0 mg/dL (<2.0) 05/30/17 15:04 Ur Leukocyte Esterase Neg (Negative) 05/30/17 15:04 Urine WBC (Auto) 2.0 /HPF (0.0-6.0) 05/30/17 15:04 Urine RBC (Auto) 5.0 /HPF (0.0-6.0) 05/30/17 15:04 Urine Bacteria (Auto) 1+ /HPF (Negative) 05/30/17 15:04 Urine Mucus Few /HPF 05/30/17 15:04 Urine Creatinine 78.7 mg/dL (0.1-20.0) H 06/04/17 17:21 Urine Sodium 10 mmol/L 06/02/17 10:18 Urine Total Protein 197 mg/dL (5-11.8) H 06/04/17 17:21 Urine Opiates Screen Presumptive negative 05/30/17 15:04 Urine Methadone Screen Presumptive negative 05/30/17 15:04 Ur Barbiturates Screen Presumptive negative 05/30/17 15:04 Levetiracetam 21.2 mcg/mL 05/30/17 08:59 Ur Phencyclidine Scrn Presumptive negative 05/30/17 15:04 Ur Amphetamines Screen Presumptive negative 05/30/17 15:04 U Benzodiazepines Scrn Presumptive negative 05/30/17 15:04 Urine Cocaine Screen Presumptive negative 05/30/17 15:04 U Marijuana (THC) Screen Presumptive positive 05/30/17 15:04 Drugs of Abuse Note Disclamer 05/30/17 15:04
--- NOTE | 2017-06-05 18:27 | Progress Note ---
Assessment and Plan Impression: 1. Complex partial seizures with secondary generalization, non-intractable 2. Hypoxic ischemic encephalopathy Plan: 1. Reviewed creatinine clearance by calculation 52.06 so her levetiracetam dose is in a good range at 750 mg every 12 hours with level 21.2 on May 30. 2. Could take theoretically a few days to see any benefit from memantine but given her MRI findings and length of time since cardiac arrest, will not wake up and should be considered for DO NOT RESUSCITATE and withdrawal of support. 3. Dr. Apple takes over Thursday, call him if needed. 25 minutes critical care time spent. Subjective Date of service: 06/05/17 Principal diagnosis: coma Interval history: HPI: This 36-year-old -[place] female seen again in follow-up for hypoxic ischemic encephalopathy following cardiac arrest at time of intubation. I have ordered memantine 10 mg daily which started yesterday. Cannot increase dose due to renal dysfunction. Objective - Exam Narrative Exam: Gen. appearance: Well-developed but obese (per BMI) mid 30s -[place] female in [facility], orally intubated. No family at bedside. Neurologic Exam: Mental Status: Does not obey commands though keeps eyes open at times though not clearly in response to voice or pain. Cranial Nerves: No blink to threat, PERRL, roving eye movements and at least partially positive doll's eyes, positive corneals bilaterally, no grimace to supraorbital pressure, coughs to tracheal suctioning but cannot reach back of throat with suction to check gags, will not protrude tongue to command. Cerebellar: Cannot assess. Motor Exam Upper Extremities: Decerebrate bilaterally to right supraorbital pressure. Motor Exam Lower Extremities: Decerebrate bilaterally to right supraorbital pressure with greater plantar extension on the right foot than left. Wiggling of toes to command. Leg withdrawal of right toes to plantar rub and slight withdrawal of left knee and toes to plantar rub. - Vital Sign Vital Signs - 12hr 06/05/17 06/05/17 06/05/17 06:31 06:41 06:51 Temperature Pulse Rate 104 H 107 H 104 H Respiratory 19 20 20 Rate Blood Pressure 147/87 147/87 147/87 O2 Sat by Pulse 100 100 100 Oximetry 06/05/17 06/05/17 06/05/17 07:01 07:11 07:21 Temperature Pulse Rate 105 H 105 H 103 H Respiratory 19 18 18 Rate Blood Pressure 166/91 166/91 166/91 O2 Sat by Pulse 99 100 100 Oximetry 06/05/1706/05/18 18 07:31 07:41 07:50 Temperature Pulse Rate 107 H 100 H 105 H Respiratory 21 17 19 Rate Blood Pressure 162/90 162/90 160/90 O2 Sat by Pulse 100 100 100 Oximetry 06/05/1706/05/18 06/05/17 07:51 08:00 08:01 Temperature 98 F Pulse Rate 105 H 107 H Respiratory 20 21 Rate Blood Pressure 162/90 181/100 O2 Sat by Pulse 100 100 Oximetry 06/05/06/05/18 06/05/17 08:11 08:21 08:31 Temperature Pulse Rate 102 H 104 H 104 H Respiratory 19 19 20 Rate Blood Pressure 181/100 181/100 167/92 O2 Sat by Pulse 100 100 100 Oximetry 06/05/1706/05/18 06/05/17 08:41 08:51 09:01 Temperature Pulse Rate 108 H 97 H 104 H Respiratory 21 15 18 Rate Blood Pressure 167/92 167/92 175/94 O2 Sat by Pulse 100 99 100 Oximetry 06/05/1718 06/05/17 09:11 09:21 09:31 Temperature Pulse Rate 101 H 106 H 96 H Respiratory 18 18 16 Rate Blood Pressure 175/94 175/94 160/85 O2 Sat by Pulse 100 100 100 Oximetry 06/05/1718 06/05/17 09:41 09:51 10:01 Temperature Pulse Rate 105 H 96 H 105 H Respiratory 21 15 21 Rate Blood Pressure 160/85 160/85 172/99 O2 Sat by Pulse 100 100 100 Oximetry 18 06/05/18 18 10:11 10:21 10:29 Temperature Pulse Rate 97 H 108 H 109 H Respiratory 13 20 Rate Blood Pressure 172/99 172/99 172/99 O2 Sat by Pulse 100 100 Oximetry 18 06/05/18 18 10:31 10:41 10:51 Temperature Pulse Rate 106 H 113 H 110 H Respiratory 19 23 19 Rate Blood Pressure 183/101 183/101 183/101 O2 Sat by Pulse 100 99 99 Oximetry 03/23/18 06/05/17 06/05/17 11:01 11:11 11:21 Temperature Pulse Rate 111 H 106 H 108 H Respiratory 21 17 21 Rate Blood Pressure 183/101 172/99 172/99 O2 Sat by Pulse 98 97 98 Oximetry 06/05/17 06/05/17 06/05/17 11:31 12:00 14:04 Temperature Pulse Rate 104 H 97 H 94 H Respiratory 19 16 Rate Blood Pressure 138/76 136/71 126/70 O2 Sat by Pulse 98 99 Oximetry 06/05/17 16:00 Temperature Pulse Rate 97 H Respiratory 19 Rate Blood Pressure 148/79 O2 Sat by Pulse 99 Oximetry - Laboratory Findings CBC and BMP: 06/04/17 04:05 06/05/17 04:11 Abnormal Lab Findings: Abnormal Labs 05/30/17 05/30/17 05/30/17 07:48 07:48 08:32 WBC 11.5 H RBC Hgb Hct MCH 27 L RDW 16.3 H Plt Count Lymph % (Auto) [place] % (Auto) [place] # Seg Neutrophils % Seg Neuts % (Manual) Lymphocytes % (Manual) Basophils % (Manual) Seg Neutrophils # Seg Neutrophils # Man Lymphocytes # (Manual) Basophils # (Manual) POC ABG pH POC ABG pCO2 POC ABG pO2 Sodium 133 L Potassium Chloride 89.9 L Carbon Dioxide BUN 27 H Creatinine 2.0 H Glucose 741 H* POC Glucose > 500 H Hemoglobin A1c Calcium Phosphorus Magnesium AST Alkaline Phosphatase Total Protein Albumin Urine Creatinine Urine Total Protein 05/30/17 05/30/17 05/30/17 08:59 08:59 16:08 WBC 14.5 H RBC Hgb Hct MCH RDW 16.0 H Plt Count Lymph % (Auto) [place] % (Auto) [place] # Seg Neutrophils % Seg Neuts % (Manual) 95.0 H Lymphocytes % (Manual) 2.0 L Basophils % (Manual) 2.0 H Seg Neutrophils # Seg Neutrophils # Man 13.8 H Lymphocytes # (Manual) 0.3 L Basophils # (Manual) 0.3 H POC ABG pH POC ABG pCO2 POC ABG pO2 Sodium 134 L 135 L Potassium 3.2 L Chloride 90.8 L 93.6 L Carbon Dioxide BUN 28 H 30 H Creatinine 2.0 H 2.1 H Glucose 742 H* 567 H* POC Glucose Hemoglobin A1c Calcium Phosphorus Magnesium AST Alkaline Phosphatase 246 H Total Protein 5.6 L Albumin 2.9 L Urine Creatinine Urine Total Protein 05/30/17 05/30/17 05/30/17 16:35 17:55 18:59 WBC RBC Hgb Hct MCH RDW Plt Count Lymph % (Auto) [place] % (Auto) [place] # Seg Neutrophils % Seg Neuts % (Manual) Lymphocytes % (Manual) Basophils % (Manual) Seg Neutrophils # Seg Neutrophils # Man Lymphocytes # (Manual) Basophils # (Manual) POC ABG pH 7.544 H POC ABG pCO2 32.0 L POC ABG pO2 155 H Sodium Potassium 3.1 L Chloride 93.9 L Carbon Dioxide BUN 30 H Creatinine 2.0 H Glucose 561 H* POC Glucose 497 H Hemoglobin A1c Calcium Phosphorus Magnesium AST Alkaline Phosphatase Total Protein Albumin Urine Creatinine Urine Total Protein 05/30/17 05/30/17 05/30/17 19:31 19:31 21:38 WBC RBC Hgb Hct MCH RDW Plt Count Lymph % (Auto) [place] % (Auto) [place] # Seg Neutrophils % Seg Neuts % (Manual) Lymphocytes % (Manual) Basophils % (Manual) Seg Neutrophils # Seg Neutrophils # Man Lymphocytes # (Manual) Basophils # (Manual) POC ABG pH POC ABG pCO2 POC ABG pO2 Sodium 135 L Potassium 2.9 L* Chloride 93.8 L 95.4 L Carbon Dioxide 20 L BUN 29 H 30 H Creatinine 2.2 H 2.3 H Glucose 478 H 364 H POC Glucose Hemoglobin A1c Calcium Phosphorus 2.20 L D Magnesium 1.40 L AST 42 H Alkaline Phosphatase 177 H Total Protein 5.4 L Albumin 2.4 L Urine Creatinine Urine Total Protein 05/30/17 05/31/17 05/31/17 23:06 02:17 05:27 WBC RBC Hgb Hct MCH RDW Plt Count Lymph % (Auto) [place] % (Auto) [place] # Seg Neutrophils % Seg Neuts % (Manual) Lymphocytes % (Manual) Basophils % (Manual) Seg Neutrophils # Seg Neutrophils # Man Lymphocytes # (Manual) Basophils # (Manual) POC ABG pH 7.489 H POC ABG pCO2 POC ABG pO2 Sodium Potassium 3.2 L 3.5 L Chloride Carbon Dioxide BUN 30 H 31 H Creatinine 2.5 H 2.4 H Glucose 288 H 246 H POC Glucose Hemoglobin A1c Calcium 8.3 L Phosphorus Magnesium AST Alkaline Phosphatase Total Protein Albumin Urine Creatinine Urine Total Protein 05/31/17 05/31/1705/31/18 05:45 05:45 05:45 WBC RBC Hgb Hct MCH RDW Plt Count Lymph % (Auto) [place] % (Auto) [place] # Seg Neutrophils % Seg Neuts % (Manual) Lymphocytes % (Manual) Basophils % (Manual) Seg Neutrophils # Seg Neutrophils # Man Lymphocytes # (Manual) Basophils # (Manual) POC ABG pH POC ABG pCO2 POC ABG pO2 Sodium Potassium Chloride Carbon Dioxide BUN 32 H 30 H Creatinine 2.5 H 2.6 H Glucose 266 H 271 H POC Glucose Hemoglobin A1c 9.7 H Calcium 8.3 L 8.2 L Phosphorus Magnesium AST Alkaline Phosphatase 145 H Total Protein 4.7 L Albumin 1.8 L Urine Creatinine Urine Total Protein 05/31/17 05/31/17 05/31/17 08:18 09:20 12:18 WBC RBC Hgb Hct MCH RDW Plt Count Lymph % (Auto) [place] % (Auto) [place] # Seg Neutrophils % Seg Neuts % (Manual) Lymphocytes % (Manual) Basophils % (Manual) Seg Neutrophils # Seg Neutrophils # Man Lymphocytes # (Manual) Basophils # (Manual) POC ABG pH POC ABG pCO2 POC ABG pO2 Sodium Potassium Chloride Carbon Dioxide BUN Creatinine Glucose POC Glucose 300 H 254 H 170 H Hemoglobin A1c Calcium Phosphorus Magnesium AST Alkaline Phosphatase Total Protein Albumin Urine Creatinine Urine Total Protein 05/31/17 05/31/17 05/31/17 14:09 14:17 14:27 WBC RBC Hgb Hct MCH RDW Plt Count Lymph % (Auto) [place] % (Auto) [place] # Seg Neutrophils % Seg Neuts % (Manual) Lymphocytes % (Manual) Basophils % (Manual) Seg Neutrophils # Seg Neutrophils # Man Lymphocytes # (Manual) Basophils # (Manual) POC ABG pH POC ABG pCO2 POC ABG pO2 Sodium Potassium 3.4 L Chloride 107.1 H Carbon Dioxide BUN 30 H Creatinine 2.6 H Glucose 38 L* POC Glucose < 40 L 189 H Hemoglobin A1c Calcium 7.6 L Phosphorus Magnesium AST Alkaline Phosphatase Total Protein Albumin Urine Creatinine Urine Total Protein 05/31/17 05/31/17 05/31/17 15:01 16:01 17:19 WBC RBC Hgb Hct MCH RDW Plt Count Lymph % (Auto) [place] % (Auto) [place] # Seg Neutrophils % Seg Neuts % (Manual) Lymphocytes % (Manual) Basophils % (Manual) Seg Neutrophils # Seg Neutrophils # Man Lymphocytes # (Manual) Basophils # (Manual) POC ABG pH POC ABG pCO2 POC ABG pO2 Sodium Potassium Chloride Carbon Dioxide BUN Creatinine Glucose POC Glucose 130 H 165 H 131 H Hemoglobin A1c Calcium Phosphorus Magnesium AST Alkaline Phosphatase Total Protein Albumin Urine Creatinine Urine Total Protein 05/31/17 05/31/17 05/31/17 18:46 19:54 20:36 WBC RBC Hgb Hct MCH RDW Plt Count Lymph % (Auto) [place] % (Auto) [place] # Seg Neutrophils % Seg Neuts % (Manual) Lymphocytes % (Manual) Basophils % (Manual) Seg Neutrophils # Seg Neutrophils # Man Lymphocytes # (Manual) Basophils # (Manual) POC ABG pH POC ABG pCO2 POC ABG pO2 Sodium Potassium Chloride Carbon Dioxide BUN 29 H Creatinine 2.4 H Glucose 124 H POC Glucose 128 H 157 H Hemoglobin A1c Calcium 7.9 L Phosphorus Magnesium AST Alkaline Phosphatase Total Protein Albumin Urine Creatinine Urine Total Protein 05/31/17 06/01/17 06/01/17 21:41 03:22 04:06 WBC RBC Hgb Hct MCH RDW Plt Count Lymph % (Auto) [place] % (Auto) [place] # Seg Neutrophils % Seg Neuts % (Manual) Lymphocytes % (Manual) Basophils % (Manual) Seg Neutrophils # Seg Neutrophils # Man Lymphocytes # (Manual) Basophils # (Manual) POC ABG pH POC ABG pCO2 POC ABG pO2 Sodium Potassium Chloride Carbon Dioxide 19 L BUN 29 H Creatinine 2.6 H Glucose 205 H POC Glucose 158 H 251 H Hemoglobin A1c Calcium 7.8 L Phosphorus Magnesium AST Alkaline Phosphatase Total Protein Albumin Urine Creatinine Urine Total Protein 06/01/17 06/01/17 06/01/17 04:30 09:15 09:59 WBC 19.7 H RBC Hgb 10.0 L Hct MCH 27 L RDW 17.1 H Plt Count Lymph % (Auto) [place] % (Auto) [place] # Seg Neutrophils % Seg Neuts % (Manual) Lymphocytes % (Manual) Basophils % (Manual) Seg Neutrophils # Seg Neutrophils # Man Lymphocytes # (Manual) Basophils # (Manual) POC ABG pH 7.464 H POC ABG pCO2 31.3 L POC ABG pO2 Sodium Potassium Chloride Carbon Dioxide BUN Creatinine Glucose POC Glucose 330 H Hemoglobin A1c Calcium Phosphorus Magnesium AST Alkaline Phosphatase Total Protein Albumin Urine Creatinine Urine Total Protein 06/01/17 06/01/17 06/01/17 11:36 12:25 13:43 WBC RBC Hgb Hct MCH RDW Plt Count Lymph % (Auto) [place] % (Auto) [place] # Seg Neutrophils % Seg Neuts % (Manual) Lymphocytes % (Manual) Basophils % (Manual) Seg Neutrophils # Seg Neutrophils # Man Lymphocytes # (Manual) Basophils # (Manual) POC ABG pH POC ABG pCO2 POC ABG pO2 Sodium Potassium Chloride Carbon Dioxide BUN Creatinine Glucose POC Glucose 431 H 434 H 445 H Hemoglobin A1c Calcium Phosphorus Magnesium AST Alkaline Phosphatase Total Protein Albumin Urine Creatinine Urine Total Protein 06/01/17 06/01/17 06/01/17 14:26 15:46 16:03 WBC RBC Hgb Hct MCH RDW Plt Count Lymph % (Auto) [place] % (Auto) [place] # Seg Neutrophils % Seg Neuts % (Manual) Lymphocytes % (Manual) Basophils % (Manual) Seg Neutrophils # Seg Neutrophils # Man Lymphocytes # (Manual) Basophils # (Manual) POC ABG pH POC ABG pCO2 POC ABG pO2 Sodium Potassium Chloride Carbon Dioxide BUN Creatinine Glucose POC Glucose 310 H 292 H 244 H Hemoglobin A1c Calcium Phosphorus Magnesium AST Alkaline Phosphatase Total Protein Albumin Urine Creatinine Urine Total Protein 06/01/17 06/01/17 06/01/17 16:59 17:49 19:05 WBC RBC Hgb Hct MCH RDW Plt Count Lymph % (Auto) [place] % (Auto) [place] # Seg Neutrophils % Seg Neuts % (Manual) Lymphocytes % (Manual) Basophils % (Manual) Seg Neutrophils # Seg Neutrophils # Man Lymphocytes # (Manual) Basophils # (Manual) POC ABG pH POC ABG pCO2 POC ABG pO2 Sodium Potassium Chloride Carbon Dioxide BUN Creatinine Glucose POC Glucose 260 H 203 H 156 H Hemoglobin A1c Calcium Phosphorus Magnesium AST Alkaline Phosphatase Total Protein Albumin Urine Creatinine Urine Total Protein 06/02/17 06/02/17 06/02/17 00:09 01:06 02:31 WBC RBC Hgb Hct MCH RDW Plt Count Lymph % (Auto) [place] % (Auto) [place] # Seg Neutrophils % Seg Neuts % (Manual) Lymphocytes % (Manual) Basophils % (Manual) Seg Neutrophils # Seg Neutrophils # Man Lymphocytes # (Manual) Basophils # (Manual) POC ABG pH POC ABG pCO2 POC ABG pO2 Sodium Potassium Chloride Carbon Dioxide BUN Creatinine Glucose POC Glucose 137 H 146 H 182 H Hemoglobin A1c Calcium Phosphorus Magnesium AST Alkaline Phosphatase Total Protein Albumin Urine Creatinine Urine Total Protein 06/02/17 06/02/17 06/02/17 04:03 04:24 04:24 WBC 21.0 H RBC 3.62 L Hgb Hct 29.6 L MCH RDW 16.5 H Plt Count Lymph % (Auto) [place] % (Auto) [place] # Seg Neutrophils % Seg Neuts % (Manual) 98.0 H Lymphocytes % (Manual) 1.0 L Basophils % (Manual) Seg Neutrophils # Seg Neutrophils # Man 20.6 H Lymphocytes # (Manual) 0.2 L Basophils # (Manual) POC ABG pH POC ABG pCO2 POC ABG pO2 Sodium Potassium Chloride Carbon Dioxide 20 L BUN 36 H Creatinine 2.8 H Glucose 137 H POC Glucose 150 H Hemoglobin A1c Calcium 7.5 L Phosphorus 4.60 H Magnesium 1.50 L AST Alkaline Phosphatase 132 H Total Protein 4.1 L Albumin 1.7 L Urine Creatinine Urine Total Protein 06/02/17 06/02/17 06/02/17 05:01 05:14 06:20 WBC RBC Hgb Hct MCH RDW Plt Count Lymph % (Auto) [place] % (Auto) [place] # Seg Neutrophils % Seg Neuts % (Manual) Lymphocytes % (Manual) Basophils % (Manual) Seg Neutrophils # Seg Neutrophils # Man Lymphocytes # (Manual) Basophils # (Manual) POC ABG pH 7.517 H POC ABG pCO2 28.4 L POC ABG pO2 67 L Sodium Potassium Chloride Carbon Dioxide BUN Creatinine Glucose POC Glucose 137 H 163 H Hemoglobin A1c Calcium Phosphorus Magnesium AST Alkaline Phosphatase Total Protein Albumin Urine Creatinine Urine Total Protein 06/02/17 06/02/17 06/02/17 07:43 09:40 10:18 WBC RBC Hgb Hct MCH RDW Plt Count Lymph % (Auto) [place] % (Auto) [place] # Seg Neutrophils % Seg Neuts % (Manual) Lymphocytes % (Manual) Basophils % (Manual) Seg Neutrophils # Seg Neutrophils # Man Lymphocytes # (Manual) Basophils # (Manual) POC ABG pH POC ABG pCO2 POC ABG pO2 Sodium Potassium Chloride Carbon Dioxide BUN Creatinine Glucose POC Glucose 135 H 196 H Hemoglobin A1c Calcium Phosphorus Magnesium AST Alkaline Phosphatase Total Protein Albumin Urine Creatinine Urine Total Protein < 4 L 06/02/17 06/02/17 06/02/17 10:33 11:55 17:39 WBC RBC Hgb Hct MCH RDW Plt Count Lymph % (Auto) [place] % (Auto) [place] # Seg Neutrophils % Seg Neuts % (Manual) Lymphocytes % (Manual) Basophils % (Manual) Seg Neutrophils # Seg Neutrophils # Man Lymphocytes # (Manual) Basophils # (Manual) POC ABG pH POC ABG pCO2 POC ABG pO2 Sodium Potassium Chloride Carbon Dioxide BUN Creatinine Glucose POC Glucose 188 H 110 H 150 H Hemoglobin A1c Calcium Phosphorus Magnesium AST Alkaline Phosphatase Total Protein Albumin Urine Creatinine Urine Total Protein 06/02/17 06/02/17 06/03/17 18:12 21:32 02:02 WBC RBC Hgb Hct MCH RDW Plt Count Lymph % (Auto) [place] % (Auto) [place] # Seg Neutrophils % Seg Neuts % (Manual) Lymphocytes % (Manual) Basophils % (Manual) Seg Neutrophils # Seg Neutrophils # Man Lymphocytes # (Manual) Basophils # (Manual) POC ABG pH POC ABG pCO2 POC ABG pO2 Sodium Potassium Chloride Carbon Dioxide BUN Creatinine Glucose POC Glucose 131 H 143 H 191 H Hemoglobin A1c Calcium Phosphorus Magnesium AST Alkaline Phosphatase Total Protein Albumin Urine Creatinine Urine Total Protein 06/03/17 06/03/17 06/03/17 04:14 04:14 05:06 WBC 21.1 H RBC Hgb Hct MCH 27 L RDW 15.9 H Plt Count 447 H Lymph % (Auto) [place] % (Auto) [place] # Seg Neutrophils % Seg Neuts % (Manual) 94.0 H Lymphocytes % (Manual) 3.0 L Basophils % (Manual) Seg Neutrophils # Seg Neutrophils # Man 19.8 H Lymphocytes # (Manual) 0.6 L Basophils # (Manual) POC ABG pH POC ABG pCO2 28.6 L POC ABG pO2 112 H Sodium Potassium Chloride Carbon Dioxide 14 L BUN 45 H Creatinine 2.8 H Glucose 211 H POC Glucose Hemoglobin A1c Calcium 8.0 L Phosphorus Magnesium AST Alkaline Phosphatase Total Protein Albumin Urine Creatinine Urine Total Protein 06/03/17 06/03/17 06/03/17 06:00 10:20 13:43 WBC RBC Hgb Hct MCH RDW Plt Count Lymph % (Auto) [place] % (Auto) [place] # Seg Neutrophils % Seg Neuts % (Manual) Lymphocytes % (Manual) Basophils % (Manual) Seg Neutrophils # Seg Neutrophils # Man Lymphocytes # (Manual) Basophils # (Manual) POC ABG pH POC ABG pCO2 POC ABG pO2 Sodium Potassium Chloride Carbon Dioxide BUN Creatinine Glucose POC Glucose 224 H 226 H 296 H Hemoglobin A1c Calcium Phosphorus Magnesium AST Alkaline Phosphatase Total Protein Albumin Urine Creatinine Urine Total Protein 06/03/17 06/03/17 06/03/17 17:38 19:23 20:45 WBC RBC Hgb Hct MCH RDW Plt Count Lymph % (Auto) [place] % (Auto) [place] # Seg Neutrophils % Seg Neuts % (Manual) Lymphocytes % (Manual) Basophils % (Manual) Seg Neutrophils # Seg Neutrophils # Man Lymphocytes # (Manual) Basophils # (Manual) POC ABG pH POC ABG pCO2 POC ABG pO2 Sodium Potassium Chloride Carbon Dioxide BUN Creatinine Glucose POC Glucose 295 H 275 H 338 H Hemoglobin A1c Calcium Phosphorus Magnesium AST Alkaline Phosphatase Total Protein Albumin Urine Creatinine Urine Total Protein 06/03/17 06/03/17 06/04/17 21:50 23:08 00:16 WBC RBC Hgb Hct MCH RDW Plt Count Lymph % (Auto) [place] % (Auto) [place] # Seg Neutrophils % Seg Neuts % (Manual) Lymphocytes % (Manual) Basophils % (Manual) Seg Neutrophils # Seg Neutrophils # Man Lymphocytes # (Manual) Basophils # (Manual) POC ABG pH POC ABG pCO2 POC ABG pO2 Sodium Potassium Chloride Carbon Dioxide BUN Creatinine Glucose POC Glucose 223 H 214 H 226 H Hemoglobin A1c Calcium Phosphorus Magnesium AST Alkaline Phosphatase Total Protein Albumin Urine Creatinine Urine Total Protein 06/04/17 06/04/17 06/04/17 01:05 02:07 03:27 WBC RBC Hgb Hct MCH RDW Plt Count Lymph % (Auto) [place] % (Auto) [place] # Seg Neutrophils % Seg Neuts % (Manual) Lymphocytes % (Manual) Basophils % (Manual) Seg Neutrophils # Seg Neutrophils # Man Lymphocytes # (Manual) Basophils # (Manual) POC ABG pH POC ABG pCO2 POC ABG pO2 Sodium Potassium Chloride Carbon Dioxide BUN Creatinine Glucose POC Glucose 217 H 229 H 185 H Hemoglobin A1c Calcium Phosphorus Magnesium AST Alkaline Phosphatase Total Protein Albumin Urine Creatinine Urine Total Protein 06/04/17 06/04/17 06/04/17 03:52 04:05 04:05 WBC 19.6 H RBC Hgb Hct MCH 26 L RDW 15.6 H Plt Count 564 H Lymph % (Auto) 7.3 L [place] % (Auto) 10.8 H [place] # 2.1 H Seg Neutrophils % 81.4 H Seg Neuts % (Manual) Lymphocytes % (Manual) Basophils % (Manual) Seg Neutrophils # 15.9 H Seg Neutrophils # Man Lymphocytes # (Manual) Basophils # (Manual) POC ABG pH POC ABG pCO2 POC ABG pO2 Sodium Potassium Chloride Carbon Dioxide 17 L BUN 52 H Creatinine 2.5 H Glucose 163 H POC Glucose 181 H Hemoglobin A1c Calcium 7.9 L Phosphorus Magnesium AST Alkaline Phosphatase Total Protein Albumin Urine Creatinine Urine Total Protein 06/04/17 06/04/17 06/04/17 04:56 05:39 06:12 WBC RBC Hgb Hct MCH RDW Plt Count Lymph % (Auto) [place] % (Auto) [place] # Seg Neutrophils % Seg Neuts % (Manual) Lymphocytes % (Manual) Basophils % (Manual) Seg Neutrophils # Seg Neutrophils # Man Lymphocytes # (Manual) Basophils # (Manual) POC ABG pH 7.486 H POC ABG pCO2 26.8 L POC ABG pO2 Sodium Potassium Chloride Carbon Dioxide BUN Creatinine Glucose POC Glucose 208 H 225 H Hemoglobin A1c Calcium Phosphorus Magnesium AST Alkaline Phosphatase Total Protein Albumin Urine Creatinine Urine Total Protein 06/04/17 06/04/17 06/04/17 07:07 08:06 09:15 WBC RBC Hgb Hct MCH RDW Plt Count Lymph % (Auto) [place] % (Auto) [place] # Seg Neutrophils % Seg Neuts % (Manual) Lymphocytes % (Manual) Basophils % (Manual) Seg Neutrophils # Seg Neutrophils # Man Lymphocytes # (Manual) Basophils # (Manual) POC ABG pH POC ABG pCO2 POC ABG pO2 Sodium Potassium Chloride Carbon Dioxide BUN Creatinine Glucose POC Glucose 201 H 171 H 178 H Hemoglobin A1c Calcium Phosphorus Magnesium AST Alkaline Phosphatase Total Protein Albumin Urine Creatinine Urine Total Protein 06/04/17 06/04/17 06/04/17 10:16 12:22 17:21 WBC RBC Hgb Hct MCH RDW Plt Count Lymph % (Auto) [place] % (Auto) [place] # Seg Neutrophils % Seg Neuts % (Manual) Lymphocytes % (Manual) Basophils % (Manual) Seg Neutrophils # Seg Neutrophils # Man Lymphocytes # (Manual) Basophils # (Manual) POC ABG pH POC ABG pCO2 POC ABG pO2 Sodium Potassium Chloride Carbon Dioxide BUN Creatinine Glucose POC Glucose 191 H 188 H Hemoglobin A1c Calcium Phosphorus Magnesium AST Alkaline Phosphatase Total Protein Albumin Urine Creatinine 78.7 H Urine Total Protein 197 H 06/04/17 06/04/17 06/05/17 17:56 22:10 00:00 WBC RBC Hgb Hct MCH RDW Plt Count Lymph % (Auto) [place] % (Auto) [place] # Seg Neutrophils % Seg Neuts % (Manual) Lymphocytes % (Manual) Basophils % (Manual) Seg Neutrophils # Seg Neutrophils # Man Lymphocytes # (Manual) Basophils # (Manual) POC ABG pH POC ABG pCO2 POC ABG pO2 Sodium Potassium Chloride Carbon Dioxide 17 L BUN 55 H Creatinine 2.3 H Glucose 300 H POC Glucose 266 H 337 H Hemoglobin A1c Calcium 7.4 L Phosphorus Magnesium AST Alkaline Phosphatase Total Protein Albumin Urine Creatinine Urine Total Protein 06/05/17 06/05/17 06/05/17 03:26 04:11 05:13 WBC RBC Hgb Hct MCH RDW Plt Count Lymph % (Auto) [place] % (Auto) [place] # Seg Neutrophils % Seg Neuts % (Manual) Lymphocytes % (Manual) Basophils % (Manual) Seg Neutrophils # Seg Neutrophils # Man Lymphocytes # (Manual) Basophils # (Manual) POC ABG pH 7.586 H POC ABG pCO2 22.6 L POC ABG pO2 179 H Sodium Potassium Chloride Carbon Dioxide 19 L BUN 55 H Creatinine 2.2 H Glucose 226 H POC Glucose 220 H Hemoglobin A1c Calcium 7.7 L Phosphorus Magnesium AST Alkaline Phosphatase Total Protein Albumin Urine Creatinine Urine Total Protein 06/05/17 12:42 WBC RBC Hgb Hct MCH RDW Plt Count Lymph % (Auto) [place] % (Auto) [place] # Seg Neutrophils % Seg Neuts % (Manual) Lymphocytes % (Manual) Basophils % (Manual) Seg Neutrophils # Seg Neutrophils # Man Lymphocytes # (Manual) Basophils # (Manual) POC ABG pH POC ABG pCO2 POC ABG pO2 Sodium Potassium Chloride Carbon Dioxide BUN Creatinine Glucose POC Glucose 168 H Hemoglobin A1c Calcium Phosphorus Magnesium AST Alkaline Phosphatase Total Protein Albumin Urine Creatinine Urine Total Protein
[2017-06-06] MEDS: HumaLOG SUB-Q SCH ×5 (00:04→23:50)
[2017-06-06] MEDS: APRESOLINE PO SCH ×3 (06:07→23:42)
[2017-06-06] MEDS: NAMENDA PO SCH ×2 (06:08→18:40)
[2017-06-06] MEDS: LASIX IV SCH ×2 (06:08→18:40)
[2017-06-06] MEDS: ISORDIL TITRADOSE PO SCH ×3 (06:08→23:42)
[2017-06-06] MEDS: KEPPRA PO SCH ×2 (10:55→23:41)
[2017-06-06] MEDS: PEPCID PO SCH (10:55)
[2017-06-06] MEDS: LOVENOX SUB-Q SCH (10:55)
[2017-06-06] MEDS: COREG PO SCH ×2 (11:00→23:42)
--- NOTE | 2017-06-06 11:32 | Consultation ---
History of Present Illness Consult date: 06/06/17 History of present illness: neuro follow up note evidence of diffuse white matter cortical ribbon ischemia which is typical for severe ischemia prognosis for recovery very doubtful as hypoxia is profound Past History Past Medical History: diabetes, hypertension, seizures Social history: no significant social history, other (some marijuana to help gastroparesis.). denies: smoking, alcohol abuse (as one drink per month her mother estimates.), prescription drug abuse, IV drug use Family history: no significant family history, diabetes (both sides family), hypertension (both sides of family), stroke (mother), other (epilepsy in paternal first cousin and a first cousin wants removed on maternal side) Medications and Allergies Allergies Allergy/AdvReac Type Severity Reaction Status Date / Time lisinopril Allergy Angioedema Verified 12/30/16 12:06 Home Medications Medication Instructions Recorded Confirmed Last Taken Type Insulin Regular, Human [Novolin R] 22 units SQ AC 30 Days vial 01/01/17 Unknown Rx Bumetanide [Bumetanide 2 mg tab] 2 mg PO DAILY 06/02/17 06/02/17 Unknown History Carvedilol [Coreg] 6.25 mg PO BID 06/02/17 06/02/17 Unknown History Dicyclomine [Bentyl] 1 cap PO BID PRN 06/02/17 06/02/17 Unknown History Furosemide [Lasix TAB] 40 mg PO QDAY 06/02/17 06/02/17 Unknown History HYDROcodone/APAP 5-325 1 - 2 tab PO Q6HR PRN 06/02/17 06/02/17 Unknown History Metoclopramide [Reglan TAB] 1 tab PO Q6HR 06/02/17 06/02/17 Unknown History Pantoprazole [Protonix] 40 mg PO QDAY 06/02/17 06/02/17 Unknown History Valsartan/Hydrochlorothiazide 1 tab PO DAILY 06/02/17 06/02/17 Unknown History [Valsartan-Hctz 160-12.5 mg Tab] Active Meds: Active Medications Acetaminophen (Tylenol) 650 mg FEEDTUBE Q6H PRN PRN Reason: Pain, Mild (1-3) Last Admin: 05/30/17 22:44 Dose: 650 mg Lipase/Protease/Amylase (Pancreaze Dr 10,500 Unit) 1 each FEEDTUBE PRN PRN PRN Reason: For Clogged Feeding Tube Carvedilol (Coreg) 25 mg PO BID [facility] Last Admin: 06/06/17 11:00 Dose: 25 mg Dextrose (D50w (25gm) Syringe) 0 ml IV PRN PRN PRN Reason: Hypoglycemia Last Admin: 05/31/17 15:20 Dose: 50 ml Dextrose (D50w (25gm) Syringe) 50 ml IV PRN PRN PRN Reason: Hypoglycemia Enoxaparin Sodium (Lovenox) 30 mg SUB-Q Q24HR [facility] Last Admin: 06/06/17 10:55 Dose: 30 mg Famotidine (Pepcid) 20 mg PO DAILY [facility] Last Admin: 06/06/17 10:55 Dose: 20 mg Furosemide (Lasix) 40 mg IV 0600,1800 [facility] Last Admin: 06/06/17 06:08 Dose: 40 mg Hydralazine HCl (Apresoline) 10 mg IV Q6HR PRN PRN Reason: Hypertension Last Admin: 06/05/17 23:31 Dose: 10 mg Hydralazine HCl (Apresoline) 25 mg PO Q8HR [facility] Last Admin: 06/06/17 06:07 Dose: 25 mg Hydrophilic Ointment (Vaseline Lip Therapy) 1 applic TP Q2HR PRN PRN Reason: Dry Lips Last Admin: 06/02/17 17:03 Dose: 1 applic Insulin Human Isoph/Insulin Regular (Humulin 70/30) 25 unit SUB-Q BID [facility] Last Admin: 06/06/17 10:55 Dose: 25 unit Insulin Human Lispro (Humalog) 0 unit SUB-Q Q6HR [facility]; Protocol Last Admin: 06/06/17 06:25 Dose: 2 unit Isosorbide Dinitrate (Isordil Titradose) 10 mg PO Q8HR [facility] Last Admin: 06/06/17 06:08 Dose: 10 mg Levetiracetam (Keppra) 750 mg PO BID [facility] Last Admin: 06/06/17 10:55 Dose: 750 mg Memantine (Namenda) 5 mg PO Q12H [facility] Last Admin: 06/06/17 06:08 Dose: 5 mg Metolazone (Zaroxolyn) 5 mg PO BID [facility] Last Admin: 06/05/17 21:06 Dose: 5 mg Multi-Ingred Cream/Lotion/Oil/Oint (Artificial Tears Ophth Oint) 1 applic OU Q4HR PRN PRN Reason: Dry Eye(s) Last Admin: 06/04/17 21:12 Dose: 1 applic Simple Syrup (Simple Syrup) 15 ml FEEDTUBE PRN PRN PRN Reason: Hypoglycemia Simple Syrup (Simple Syrup) 30 ml FEEDTUBE PRN PRN PRN Reason: Hypoglycemia Sodium Bicarbonate (Sodium Bicarbonate) 325 mg FEEDTUBE PRN PRN PRN Reason: For Clogged Feeding Tube Sodium Chloride (Nacl 0.9% 500 Ml) 1 ml IV DIRECT [facility] Physical Examination - Vital Signs Vital Signs: Vital Signs Pulse Resp 101 H 23 05/30/17 06:58 05/30/17 06:58 Results - Laboratory Findings CBC and BMP: 06/04/17 04:05 06/05/17 04:11 Abnormal Lab Findings: Abnormal Labs 05/30/17 05/30/17 05/30/17 07:48 07:48 08:32 WBC 11.5 H RBC Hgb Hct MCH 27 L RDW 16.3 H Plt Count Lymph % (Auto) [place] % (Auto) [place] # Seg Neutrophils % Seg Neuts % (Manual) Lymphocytes % (Manual) Basophils % (Manual) Seg Neutrophils # Seg Neutrophils # Man Lymphocytes # (Manual) Basophils # (Manual) POC ABG pH POC ABG pCO2 POC ABG pO2 Sodium 133 L Potassium Chloride 89.9 L Carbon Dioxide BUN 27 H Creatinine 2.0 H Glucose 741 H* POC Glucose > 500 H Hemoglobin A1c Calcium Phosphorus Magnesium AST Alkaline Phosphatase Total Protein Albumin Urine Creatinine Urine Total Protein 05/30/17 05/30/17 05/30/17 08:59 08:59 16:08 WBC 14.5 H RBC Hgb Hct MCH RDW 16.0 H Plt Count Lymph % (Auto) [place] % (Auto) [place] # Seg Neutrophils % Seg Neuts % (Manual) 95.0 H Lymphocytes % (Manual) 2.0 L Basophils % (Manual) 2.0 H Seg Neutrophils # Seg Neutrophils # Man 13.8 H Lymphocytes # (Manual) 0.3 L Basophils # (Manual) 0.3 H POC ABG pH POC ABG pCO2 POC ABG pO2 Sodium 134 L 135 L Potassium 3.2 L Chloride 90.8 L 93.6 L Carbon Dioxide BUN 28 H 30 H Creatinine 2.0 H 2.1 H Glucose 742 H* 567 H* POC Glucose Hemoglobin A1c Calcium Phosphorus Magnesium AST Alkaline Phosphatase 246 H Total Protein 5.6 L Albumin 2.9 L Urine Creatinine Urine Total Protein 05/30/17 05/30/17 05/30/17 16:35 17:55 18:59 WBC RBC Hgb Hct MCH RDW Plt Count Lymph % (Auto) [place] % (Auto) [place] # Seg Neutrophils % Seg Neuts % (Manual) Lymphocytes % (Manual) Basophils % (Manual) Seg Neutrophils # Seg Neutrophils # Man Lymphocytes # (Manual) Basophils # (Manual) POC ABG pH 7.544 H POC ABG pCO2 32.0 L POC ABG pO2 155 H Sodium Potassium 3.1 L Chloride 93.9 L Carbon Dioxide BUN 30 H Creatinine 2.0 H Glucose 561 H* POC Glucose 497 H Hemoglobin A1c Calcium Phosphorus Magnesium AST Alkaline Phosphatase Total Protein Albumin Urine Creatinine Urine Total Protein 05/30/17 05/30/17 05/30/17 19:31 19:31 21:38 WBC RBC Hgb Hct MCH RDW Plt Count Lymph % (Auto) [place] % (Auto) [place] # Seg Neutrophils % Seg Neuts % (Manual) Lymphocytes % (Manual) Basophils % (Manual) Seg Neutrophils # Seg Neutrophils # Man Lymphocytes # (Manual) Basophils # (Manual) POC ABG pH POC ABG pCO2 POC ABG pO2 Sodium 135 L Potassium 2.9 L* Chloride 93.8 L 95.4 L Carbon Dioxide 20 L BUN 29 H 30 H Creatinine 2.2 H 2.3 H Glucose 478 H 364 H POC Glucose Hemoglobin A1c Calcium Phosphorus 2.20 L D Magnesium 1.40 L AST 42 H Alkaline Phosphatase 177 H Total Protein 5.4 L Albumin 2.4 L Urine Creatinine Urine Total Protein 05/30/17 05/31/17 05/31/17 23:06 02:17 05:27 WBC RBC Hgb Hct MCH RDW Plt Count Lymph % (Auto) [place] % (Auto) [place] # Seg Neutrophils % Seg Neuts % (Manual) Lymphocytes % (Manual) Basophils % (Manual) Seg Neutrophils # Seg Neutrophils # Man Lymphocytes # (Manual) Basophils # (Manual) POC ABG pH 7.489 H POC ABG pCO2 POC ABG pO2 Sodium Potassium 3.2 L 3.5 L Chloride Carbon Dioxide BUN 30 H 31 H Creatinine 2.5 H 2.4 H Glucose 288 H 246 H POC Glucose Hemoglobin A1c Calcium 8.3 L Phosphorus Magnesium AST Alkaline Phosphatase Total Protein Albumin Urine Creatinine Urine Total Protein 05/31/17 05/31/17 05/31/17 05:45 05:45 05:45 WBC RBC Hgb Hct MCH RDW Plt Count Lymph % (Auto) [place] % (Auto) [place] # Seg Neutrophils % Seg Neuts % (Manual) Lymphocytes % (Manual) Basophils % (Manual) Seg Neutrophils # Seg Neutrophils # Man Lymphocytes # (Manual) Basophils # (Manual) POC ABG pH POC ABG pCO2 POC ABG pO2 Sodium Potassium Chloride Carbon Dioxide BUN 32 H 30 H Creatinine 2.5 H 2.6 H Glucose 266 H 271 H POC Glucose Hemoglobin A1c 9.7 H Calcium 8.3 L 8.2 L Phosphorus Magnesium AST Alkaline Phosphatase 145 H Total Protein 4.7 L Albumin 1.8 L Urine Creatinine Urine Total Protein 05/31/17 05/31/17 05/31/17 08:18 09:20 12:18 WBC RBC Hgb Hct MCH RDW Plt Count Lymph % (Auto) [place] % (Auto) [place] # Seg Neutrophils % Seg Neuts % (Manual) Lymphocytes % (Manual) Basophils % (Manual) Seg Neutrophils # Seg Neutrophils # Man Lymphocytes # (Manual) Basophils # (Manual) POC ABG pH POC ABG pCO2 POC ABG pO2 Sodium Potassium Chloride Carbon Dioxide BUN Creatinine Glucose POC Glucose 300 H 254 H 170 H Hemoglobin A1c Calcium Phosphorus Magnesium AST Alkaline Phosphatase Total Protein Albumin Urine Creatinine Urine Total Protein 05/31/17 05/31/17 05/31/17 14:09 14:17 14:27 WBC RBC Hgb Hct MCH RDW Plt Count Lymph % (Auto) [place] % (Auto) [place] # Seg Neutrophils % Seg Neuts % (Manual) Lymphocytes % (Manual) Basophils % (Manual) Seg Neutrophils # Seg Neutrophils # Man Lymphocytes # (Manual) Basophils # (Manual) POC ABG pH POC ABG pCO2 POC ABG pO2 Sodium Potassium 3.4 L Chloride 107.1 H Carbon Dioxide BUN 30 H Creatinine 2.6 H Glucose 38 L* POC Glucose < 40 L 189 H Hemoglobin A1c Calcium 7.6 L Phosphorus Magnesium AST Alkaline Phosphatase Total Protein Albumin Urine Creatinine Urine Total Protein 05/31/17 05/31/17 05/31/17 15:01 16:01 17:19 WBC RBC Hgb Hct MCH RDW Plt Count Lymph % (Auto) [place] % (Auto) [place] # Seg Neutrophils % Seg Neuts % (Manual) Lymphocytes % (Manual) Basophils % (Manual) Seg Neutrophils # Seg Neutrophils # Man Lymphocytes # (Manual) Basophils # (Manual) POC ABG pH POC ABG pCO2 POC ABG pO2 Sodium Potassium Chloride Carbon Dioxide BUN Creatinine Glucose POC Glucose 130 H 165 H 131 H Hemoglobin A1c Calcium Phosphorus Magnesium AST Alkaline Phosphatase Total Protein Albumin Urine Creatinine Urine Total Protein 05/31/17 05/31/17 05/31/17 18:46 19:54 20:36 WBC RBC Hgb Hct MCH RDW Plt Count Lymph % (Auto) [place] % (Auto) [place] # Seg Neutrophils % Seg Neuts % (Manual) Lymphocytes % (Manual) Basophils % (Manual) Seg Neutrophils # Seg Neutrophils # Man Lymphocytes # (Manual) Basophils # (Manual) POC ABG pH POC ABG pCO2 POC ABG pO2 Sodium Potassium Chloride Carbon Dioxide BUN 29 H Creatinine 2.4 H Glucose 124 H POC Glucose 128 H 157 H Hemoglobin A1c Calcium 7.9 L Phosphorus Magnesium AST Alkaline Phosphatase Total Protein Albumin Urine Creatinine Urine Total Protein 05/31/17 06/01/17 06/01/17 21:41 03:22 04:06 WBC RBC Hgb Hct MCH RDW Plt Count Lymph % (Auto) [place] % (Auto) [place] # Seg Neutrophils % Seg Neuts % (Manual) Lymphocytes % (Manual) Basophils % (Manual) Seg Neutrophils # Seg Neutrophils # Man Lymphocytes # (Manual) Basophils # (Manual) POC ABG pH POC ABG pCO2 POC ABG pO2 Sodium Potassium Chloride Carbon Dioxide 19 L BUN 29 H Creatinine 2.6 H Glucose 205 H POC Glucose 158 H 251 H Hemoglobin A1c Calcium 7.8 L Phosphorus Magnesium AST Alkaline Phosphatase Total Protein Albumin Urine Creatinine Urine Total Protein 06/01/17 06/01/17 06/01/17 04:30 09:15 09:59 WBC 19.7 H RBC Hgb 10.0 L Hct MCH 27 L RDW 17.1 H Plt Count Lymph % (Auto) [place] % (Auto) [place] # Seg Neutrophils % Seg Neuts % (Manual) Lymphocytes % (Manual) Basophils % (Manual) Seg Neutrophils # Seg Neutrophils # Man Lymphocytes # (Manual) Basophils # (Manual) POC ABG pH 7.464 H POC ABG pCO2 31.3 L POC ABG pO2 Sodium Potassium Chloride Carbon Dioxide BUN Creatinine Glucose POC Glucose 330 H Hemoglobin A1c Calcium Phosphorus Magnesium AST Alkaline Phosphatase Total Protein Albumin Urine Creatinine Urine Total Protein 06/01/17 06/01/17 06/01/17 11:36 12:25 13:43 WBC RBC Hgb Hct MCH RDW Plt Count Lymph % (Auto) [place] % (Auto) [place] # Seg Neutrophils % Seg Neuts % (Manual) Lymphocytes % (Manual) Basophils % (Manual) Seg Neutrophils # Seg Neutrophils # Man Lymphocytes # (Manual) Basophils # (Manual) POC ABG pH POC ABG pCO2 POC ABG pO2 Sodium Potassium Chloride Carbon Dioxide BUN Creatinine Glucose POC Glucose 431 H 434 H 445 H Hemoglobin A1c Calcium Phosphorus Magnesium AST Alkaline Phosphatase Total Protein Albumin Urine Creatinine Urine Total Protein 06/01/17 06/01/17 06/01/17 14:26 15:46 16:03 WBC RBC Hgb Hct MCH RDW Plt Count Lymph % (Auto) [place] % (Auto) [place] # Seg Neutrophils % Seg Neuts % (Manual) Lymphocytes % (Manual) Basophils % (Manual) Seg Neutrophils # Seg Neutrophils # Man Lymphocytes # (Manual) Basophils # (Manual) POC ABG pH POC ABG pCO2 POC ABG pO2 Sodium Potassium Chloride Carbon Dioxide BUN Creatinine Glucose POC Glucose 310 H 292 H 244 H Hemoglobin A1c Calcium Phosphorus Magnesium AST Alkaline Phosphatase Total Protein Albumin Urine Creatinine Urine Total Protein 06/01/17 06/01/17 06/01/17 16:59 17:49 19:05 WBC RBC Hgb Hct MCH RDW Plt Count Lymph % (Auto) [place] % (Auto) [place] # Seg Neutrophils % Seg Neuts % (Manual) Lymphocytes % (Manual) Basophils % (Manual) Seg Neutrophils # Seg Neutrophils # Man Lymphocytes # (Manual) Basophils # (Manual) POC ABG pH POC ABG pCO2 POC ABG pO2 Sodium Potassium Chloride Carbon Dioxide BUN Creatinine Glucose POC Glucose 260 H 203 H 156 H Hemoglobin A1c Calcium Phosphorus Magnesium AST Alkaline Phosphatase Total Protein Albumin Urine Creatinine Urine Total Protein 06/02/17 06/02/17 06/02/17 00:09 01:06 02:31 WBC RBC Hgb Hct MCH RDW Plt Count Lymph % (Auto) [place] % (Auto) [place] # Seg Neutrophils % Seg Neuts % (Manual) Lymphocytes % (Manual) Basophils % (Manual) Seg Neutrophils # Seg Neutrophils # Man Lymphocytes # (Manual) Basophils # (Manual) POC ABG pH POC ABG pCO2 POC ABG pO2 Sodium Potassium Chloride Carbon Dioxide BUN Creatinine Glucose POC Glucose 137 H 146 H 182 H Hemoglobin A1c Calcium Phosphorus Magnesium AST Alkaline Phosphatase Total Protein Albumin Urine Creatinine Urine Total Protein 06/02/17 06/02/17 06/02/17 04:03 04:24 04:24 WBC 21.0 H RBC 3.62 L Hgb Hct 29.6 L MCH RDW 16.5 H Plt Count Lymph % (Auto) [place] % (Auto) [place] # Seg Neutrophils % Seg Neuts % (Manual) 98.0 H Lymphocytes % (Manual) 1.0 L Basophils % (Manual) Seg Neutrophils # Seg Neutrophils # Man 20.6 H Lymphocytes # (Manual) 0.2 L Basophils # (Manual) POC ABG pH POC ABG pCO2 POC ABG pO2 Sodium Potassium Chloride Carbon Dioxide 20 L BUN 36 H Creatinine 2.8 H Glucose 137 H POC Glucose 150 H Hemoglobin A1c Calcium 7.5 L Phosphorus 4.60 H Magnesium 1.50 L AST Alkaline Phosphatase 132 H Total Protein 4.1 L Albumin 1.7 L Urine Creatinine Urine Total Protein 06/02/17 06/02/17 06/02/17 05:01 05:14 06:20 WBC RBC Hgb Hct MCH RDW Plt Count Lymph % (Auto) [place] % (Auto) [place] # Seg Neutrophils % Seg Neuts % (Manual) Lymphocytes % (Manual) Basophils % (Manual) Seg Neutrophils # Seg Neutrophils # Man Lymphocytes # (Manual) Basophils # (Manual) POC ABG pH 7.517 H POC ABG pCO2 28.4 L POC ABG pO2 67 L Sodium Potassium Chloride Carbon Dioxide BUN Creatinine Glucose POC Glucose 137 H 163 H Hemoglobin A1c Calcium Phosphorus Magnesium AST Alkaline Phosphatase Total Protein Albumin Urine Creatinine Urine Total Protein 06/02/17 06/02/17 06/02/17 07:43 09:40 10:18 WBC RBC Hgb Hct MCH RDW Plt Count Lymph % (Auto) [place] % (Auto) [place] # Seg Neutrophils % Seg Neuts % (Manual) Lymphocytes % (Manual) Basophils % (Manual) Seg Neutrophils # Seg Neutrophils # Man Lymphocytes # (Manual) Basophils # (Manual) POC ABG pH POC ABG pCO2 POC ABG pO2 Sodium Potassium Chloride Carbon Dioxide BUN Creatinine Glucose POC Glucose 135 H 196 H Hemoglobin A1c Calcium Phosphorus Magnesium AST Alkaline Phosphatase Total Protein Albumin Urine Creatinine Urine Total Protein < 4 L 06/02/17 06/02/17 06/02/17 10:33 11:55 17:39 WBC RBC Hgb Hct MCH RDW Plt Count Lymph % (Auto) [place] % (Auto) [place] # Seg Neutrophils % Seg Neuts % (Manual) Lymphocytes % (Manual) Basophils % (Manual) Seg Neutrophils # Seg Neutrophils # Man Lymphocytes # (Manual) Basophils # (Manual) POC ABG pH POC ABG pCO2 POC ABG pO2 Sodium Potassium Chloride Carbon Dioxide BUN Creatinine Glucose POC Glucose 188 H 110 H 150 H Hemoglobin A1c Calcium Phosphorus Magnesium AST Alkaline Phosphatase Total Protein Albumin Urine Creatinine Urine Total Protein 06/02/17 06/02/17 06/03/17 18:12 21:32 02:02 WBC RBC Hgb Hct MCH RDW Plt Count Lymph % (Auto) [place] % (Auto) [place] # Seg Neutrophils % Seg Neuts % (Manual) Lymphocytes % (Manual) Basophils % (Manual) Seg Neutrophils # Seg Neutrophils # Man Lymphocytes # (Manual) Basophils # (Manual) POC ABG pH POC ABG pCO2 POC ABG pO2 Sodium Potassium Chloride Carbon Dioxide BUN Creatinine Glucose POC Glucose 131 H 143 H 191 H Hemoglobin A1c Calcium Phosphorus Magnesium AST Alkaline Phosphatase Total Protein Albumin Urine Creatinine Urine Total Protein 06/03/17 06/03/17 06/03/17 04:14 04:14 05:06 WBC 21.1 H RBC Hgb Hct MCH 27 L RDW 15.9 H Plt Count 447 H Lymph % (Auto) [place] % (Auto) [place] # Seg Neutrophils % Seg Neuts % (Manual) 94.0 H Lymphocytes % (Manual) 3.0 L Basophils % (Manual) Seg Neutrophils # Seg Neutrophils # Man 19.8 H Lymphocytes # (Manual) 0.6 L Basophils # (Manual) POC ABG pH POC ABG pCO2 28.6 L POC ABG pO2 112 H Sodium Potassium Chloride Carbon Dioxide 14 L BUN 45 H Creatinine 2.8 H Glucose 211 H POC Glucose Hemoglobin A1c Calcium 8.0 L Phosphorus Magnesium AST Alkaline Phosphatase Total Protein Albumin Urine Creatinine Urine Total Protein 06/03/17 06/03/17 06/03/17 06:00 10:20 13:43 WBC RBC Hgb Hct MCH RDW Plt Count Lymph % (Auto) [place] % (Auto) [place] # Seg Neutrophils % Seg Neuts % (Manual) Lymphocytes % (Manual) Basophils % (Manual) Seg Neutrophils # Seg Neutrophils # Man Lymphocytes # (Manual) Basophils # (Manual) POC ABG pH POC ABG pCO2 POC ABG pO2 Sodium Potassium Chloride Carbon Dioxide BUN Creatinine Glucose POC Glucose 224 H 226 H 296 H Hemoglobin A1c Calcium Phosphorus Magnesium AST Alkaline Phosphatase Total Protein Albumin Urine Creatinine Urine Total Protein 06/03/17 06/03/17 06/03/17 17:38 19:23 20:45 WBC RBC Hgb Hct MCH RDW Plt Count Lymph % (Auto) [place] % (Auto) [place] # Seg Neutrophils % Seg Neuts % (Manual) Lymphocytes % (Manual) Basophils % (Manual) Seg Neutrophils # Seg Neutrophils # Man Lymphocytes # (Manual) Basophils # (Manual) POC ABG pH POC ABG pCO2 POC ABG pO2 Sodium Potassium Chloride Carbon Dioxide BUN Creatinine Glucose POC Glucose 295 H 275 H 338 H Hemoglobin A1c Calcium Phosphorus Magnesium AST Alkaline Phosphatase Total Protein Albumin Urine Creatinine Urine Total Protein 06/03/17 06/03/17 06/04/17 21:50 23:08 00:16 WBC RBC Hgb Hct MCH RDW Plt Count Lymph % (Auto) [place] % (Auto) [place] # Seg Neutrophils % Seg Neuts % (Manual) Lymphocytes % (Manual) Basophils % (Manual) Seg Neutrophils # Seg Neutrophils # Man Lymphocytes # (Manual) Basophils # (Manual) POC ABG pH POC ABG pCO2 POC ABG pO2 Sodium Potassium Chloride Carbon Dioxide BUN Creatinine Glucose POC Glucose 223 H 214 H 226 H Hemoglobin A1c Calcium Phosphorus Magnesium AST Alkaline Phosphatase Total Protein Albumin Urine Creatinine Urine Total Protein 06/04/17 06/04/17 06/04/17 01:05 02:07 03:27 WBC RBC Hgb Hct MCH RDW Plt Count Lymph % (Auto) [place] % (Auto) [place] # Seg Neutrophils % Seg Neuts % (Manual) Lymphocytes % (Manual) Basophils % (Manual) Seg Neutrophils # Seg Neutrophils # Man Lymphocytes # (Manual) Basophils # (Manual) POC ABG pH POC ABG pCO2 POC ABG pO2 Sodium Potassium Chloride Carbon Dioxide BUN Creatinine Glucose POC Glucose 217 H 229 H 185 H Hemoglobin A1c Calcium Phosphorus Magnesium AST Alkaline Phosphatase Total Protein Albumin Urine Creatinine Urine Total Protein 06/04/17 06/04/17 06/04/17 03:52 04:05 04:05 WBC 19.6 H RBC Hgb Hct MCH 26 L RDW 15.6 H Plt Count 564 H Lymph % (Auto) 7.3 L [place] % (Auto) 10.8 H [place] # 2.1 H Seg Neutrophils % 81.4 H Seg Neuts % (Manual) Lymphocytes % (Manual) Basophils % (Manual) Seg Neutrophils # 15.9 H Seg Neutrophils # Man Lymphocytes # (Manual) Basophils # (Manual) POC ABG pH POC ABG pCO2 POC ABG pO2 Sodium Potassium Chloride Carbon Dioxide 17 L BUN 52 H Creatinine 2.5 H Glucose 163 H POC Glucose 181 H Hemoglobin A1c Calcium 7.9 L Phosphorus Magnesium AST Alkaline Phosphatase Total Protein Albumin Urine Creatinine Urine Total Protein 06/04/17 06/04/17 06/04/17 04:56 05:39 06:12 WBC RBC Hgb Hct MCH RDW Plt Count Lymph % (Auto) [place] % (Auto) [place] # Seg Neutrophils % Seg Neuts % (Manual) Lymphocytes % (Manual) Basophils % (Manual) Seg Neutrophils # Seg Neutrophils # Man Lymphocytes # (Manual) Basophils # (Manual) POC ABG pH 7.486 H POC ABG pCO2 26.8 L POC ABG pO2 Sodium Potassium Chloride Carbon Dioxide BUN Creatinine Glucose POC Glucose 208 H 225 H Hemoglobin A1c Calcium Phosphorus Magnesium AST Alkaline Phosphatase Total Protein Albumin Urine Creatinine Urine Total Protein 06/04/17 06/04/17 06/04/17 07:07 08:06 09:15 WBC RBC Hgb Hct MCH RDW Plt Count Lymph % (Auto) [place] % (Auto) [place] # Seg Neutrophils % Seg Neuts % (Manual) Lymphocytes % (Manual) Basophils % (Manual) Seg Neutrophils # Seg Neutrophils # Man Lymphocytes # (Manual) Basophils # (Manual) POC ABG pH POC ABG pCO2 POC ABG pO2 Sodium Potassium Chloride Carbon Dioxide BUN Creatinine Glucose POC Glucose 201 H 171 H 178 H Hemoglobin A1c Calcium Phosphorus Magnesium AST Alkaline Phosphatase Total Protein Albumin Urine Creatinine Urine Total Protein 06/04/17 06/04/17 06/04/17 10:16 12:22 17:21 WBC RBC Hgb Hct MCH RDW Plt Count Lymph % (Auto) [place] % (Auto) [place] # Seg Neutrophils % Seg Neuts % (Manual) Lymphocytes % (Manual) Basophils % (Manual) Seg Neutrophils # Seg Neutrophils # Man Lymphocytes # (Manual) Basophils # (Manual) POC ABG pH POC ABG pCO2 POC ABG pO2 Sodium Potassium Chloride Carbon Dioxide BUN Creatinine Glucose POC Glucose 191 H 188 H Hemoglobin A1c Calcium Phosphorus Magnesium AST Alkaline Phosphatase Total Protein Albumin Urine Creatinine 78.7 H Urine Total Protein 197 H 06/04/17 06/04/17 06/05/17 17:56 22:10 00:00 WBC RBC Hgb Hct MCH RDW Plt Count Lymph % (Auto) [place] % (Auto) [place] # Seg Neutrophils % Seg Neuts % (Manual) Lymphocytes % (Manual) Basophils % (Manual) Seg Neutrophils # Seg Neutrophils # Man Lymphocytes # (Manual) Basophils # (Manual) POC ABG pH POC ABG pCO2 POC ABG pO2 Sodium Potassium Chloride Carbon Dioxide 17 L BUN 55 H Creatinine 2.3 H Glucose 300 H POC Glucose 266 H 337 H Hemoglobin A1c Calcium 7.4 L Phosphorus Magnesium AST Alkaline Phosphatase Total Protein Albumin Urine Creatinine Urine Total Protein 06/05/17 06/05/17 06/05/17 03:26 04:11 05:13 WBC RBC Hgb Hct MCH RDW Plt Count Lymph % (Auto) [place] % (Auto) [place] # Seg Neutrophils % Seg Neuts % (Manual) Lymphocytes % (Manual) Basophils % (Manual) Seg Neutrophils # Seg Neutrophils # Man Lymphocytes # (Manual) Basophils # (Manual) POC ABG pH 7.586 H POC ABG pCO2 22.6 L POC ABG pO2 179 H Sodium Potassium Chloride Carbon Dioxide 19 L BUN 55 H Creatinine 2.2 H Glucose 226 H POC Glucose 220 H Hemoglobin A1c Calcium 7.7 L Phosphorus Magnesium AST Alkaline Phosphatase Total Protein Albumin Urine Creatinine Urine Total Protein 06/05/17 06/05/17 06/05/17 12:42 18:24 21:23 WBC RBC Hgb Hct MCH RDW Plt Count Lymph % (Auto) [place] % (Auto) [place] # Seg Neutrophils % Seg Neuts % (Manual) Lymphocytes % (Manual) Basophils % (Manual) Seg Neutrophils # Seg Neutrophils # Man Lymphocytes # (Manual) Basophils # (Manual) POC ABG pH POC ABG pCO2 POC ABG pO2 Sodium Potassium Chloride Carbon Dioxide BUN Creatinine Glucose POC Glucose 168 H 121 H 166 H Hemoglobin A1c Calcium Phosphorus Magnesium AST Alkaline Phosphatase Total Protein Albumin Urine Creatinine Urine Total Protein 06/06/17 06/06/17 06/06/17 00:14 04:11 06:19 WBC RBC Hgb Hct MCH RDW Plt Count Lymph % (Auto) [place] % (Auto) [place] # Seg Neutrophils % Seg Neuts % (Manual) Lymphocytes % (Manual) Basophils % (Manual) Seg Neutrophils # Seg Neutrophils # Man Lymphocytes # (Manual) Basophils # (Manual) POC ABG pH POC ABG pCO2 33.0 L POC ABG pO2 Sodium Potassium Chloride Carbon Dioxide BUN Creatinine Glucose POC Glucose 179 H 180 H Hemoglobin A1c Calcium Phosphorus Magnesium AST Alkaline Phosphatase Total Protein Albumin Urine Creatinine Urine Total Protein
--- NOTE | 2017-06-06 12:35 | Progress Note ---
Assessment and Plan - Patient Problems (1) Acute anoxic encephalopathy Current Visit: Yes Status: Acute (2) Acute renal failure with tubular necrosis Current Visit: Yes Status: Acute (3) Acute respiratory failure Current Visit: Yes Status: Acute Qualifiers: Respiratory failure complication: hypoxia Qualified Code(s): J96.01 - Acute respiratory failure with hypoxia (4) Dilated cardiomyopathy Current Visit: Yes Status: Acute (5) Hyperosmolar non-ketotic state in patient with type 2 diabetes mellitus Current Visit: Yes Status: Acute Subjective Principal diagnosis: coma Interval history: on vent. not responsive Not tolerating tube feeding ( high residuals) Objective Vital Signs - 12hr 06/06/17 06/06/17 06/06/17 00:41 00:51 01:01 Temperature Pulse Rate 99 H 106 H 100 H Respiratory 15 20 16 Rate Blood Pressure 158/88 158/88 162/90 O2 Sat by Pulse 100 100 100 Oximetry 06/06/17 06/06/17 06/06/17 01:11 01:21 01:30 Temperature Pulse Rate 100 H 101 H 106 H Respiratory 17 17 18 Rate Blood Pressure 162/90 162/90 170/101 O2 Sat by Pulse 100 100 100 Oximetry 06/06/17 06/06/17 06/06/17 01:41 01:51 02:00 Temperature Pulse Rate 102 H 98 H 101 H Respiratory 17 16 16 Rate Blood Pressure 170/101 170/101 170/101 O2 Sat by Pulse 100 100 100 Oximetry 06/06/17 06/06/17 06/06/17 02:11 02:21 02:31 Temperature Pulse Rate 99 H 99 H 102 H Respiratory 16 17 17 Rate Blood Pressure 169/92 169/92 175/98 O2 Sat by Pulse 100 100 99 Oximetry 06/06/17 06/06/17 06/06/17 02:41 02:51 03:01 Temperature Pulse Rate 104 H 99 H 100 H Respiratory 17 16 16 Rate Blood Pressure 175/98 175/98 163/93 O2 Sat by Pulse 100 100 100 Oximetry 06/06/17 06/06/17 06/06/17 03:11 03:21 03:30 Temperature Pulse Rate 102 H 100 H 98 H Respiratory 14 16 15 Rate Blood Pressure 163/93 163/93 167/94 O2 Sat by Pulse 100 99 100 Oximetry 06/06/17 06/06/17 06/06/17 03:41 03:51 03:58 Temperature Pulse Rate 108 H 98 H 100 H Respiratory 16 16 Rate Blood Pressure 167/94 167/94 167/94 O2 Sat by Pulse 99 100 100 Oximetry 06/06/17 06/06/17 06/06/17 04:00 04:01 04:11 Temperature 98.6 F Pulse Rate 107 H 99 H Respiratory 20 14 Rate Blood Pressure 174/99 174/99 O2 Sat by Pulse 100 100 Oximetry 06/06/17 06/06/17 06/06/17 04:21 04:31 04:41 Temperature Pulse Rate 99 H 96 H 98 H Respiratory 14 15 15 Rate Blood Pressure 174/99 166/92 166/92 O2 Sat by Pulse 100 100 100 Oximetry 06/06/17 06/06/17 06/06/17 04:51 05:01 05:11 Temperature Pulse Rate 97 H 98 H 98 H Respiratory 16 15 15 Rate Blood Pressure 166/92 155/88 155/88 O2 Sat by Pulse 100 100 100 Oximetry 06/06/17 06/06/17 06/06/17 05:21 05:31 05:41 Temperature Pulse Rate 96 H 93 H 97 H Respiratory 14 15 15 Rate Blood Pressure 155/88 158/88 158/88 O2 Sat by Pulse 100 100 100 Oximetry 06/06/17 06/06/17 06/06/17 05:51 06:01 06:07 Temperature Pulse Rate 93 H 96 H 93 H Respiratory 12 14 Rate Blood Pressure 158/88 148/84 148/94 O2 Sat by Pulse 100 99 Oximetry 06/06/17 06/06/17 06/06/17 06:08 06:11 06:21 Temperature Pulse Rate 93 H 101 H 95 H Respiratory 18 15 Rate Blood Pressure 148/94 148/84 148/84 O2 Sat by Pulse 100 100 Oximetry 06/06/17 06/06/17 06/06/17 07:01 08:00 09:00 Temperature 97.6 F Pulse Rate 96 H 92 H 91 H Respiratory 18 16 17 Rate Blood Pressure 140/81 158/101 148/84 O2 Sat by Pulse 100 100 100 Oximetry 06/06/17 06/06/17 09:55 11:00 Temperature Pulse Rate 100 H 94 H Respiratory Rate Blood Pressure 166/91 166/91 O2 Sat by Pulse 100 Oximetry Constitutional: other (unresponsive, critically ill on ventilator) Eyes: non-icteric, other (chemosis better) ENT: oropharynx moist, other (orally intubated) Neck: supple Effort: normal Ascultation: Bilateral: rales, rhonchi, other (coarse BS bilaterally) Cardiovascular: other (tachycardia, RR; no mrg) Gastrointestinal: normoactive bowel sounds, soft, non-tender Integumentary: normal Extremities: no cyanosis, no edema, pink and warm Neurologic: unable to assess, other (unresponsive) Psychiatric: other (not able to assess) CBC and BMP: 06/04/17 04:05 06/05/17 04:11 ABG, PT/INR, D-dimer: ABG POC ABG pH 7.443 (7.35-7.45) 06/06/17 04:11 POC ABG pCO2 33.0 (35-45) L 06/06/17 04:11 POC ABG pO2 100 (80-105) 06/06/17 04:11 POC ABG HCO3 22.5 06/06/17 04:11 POC ABG Total CO2 24 06/06/17 04:11 POC ABG O2 Sat 98 06/06/17 04:11 Abnormal lab findings: Abnormal Labs 05/30/17 05/30/17 05/30/17 07:48 07:48 08:32 WBC 11.5 H RBC Hgb Hct MCH 27 L RDW 16.3 H Plt Count Lymph % (Auto) Dickenson % (Auto) Dickenson # Seg Neutrophils % Seg Neuts % (Manual) Lymphocytes % (Manual) Basophils % (Manual) Seg Neutrophils # Seg Neutrophils # Man Lymphocytes # (Manual) Basophils # (Manual) POC ABG pH POC ABG pCO2 POC ABG pO2 Sodium 133 L Potassium Chloride 89.9 L Carbon Dioxide BUN 27 H Creatinine 2.0 H Glucose 741 H* POC Glucose > 500 H Hemoglobin A1c Calcium Phosphorus Magnesium AST Alkaline Phosphatase Total Protein Albumin Urine Creatinine Urine Total Protein 05/30/17 05/30/17 05/30/17 08:59 08:59 16:08 WBC 14.5 H RBC Hgb Hct MCH RDW 16.0 H Plt Count Lymph % (Auto) Dickenson % (Auto) Dickenson # Seg Neutrophils % Seg Neuts % (Manual) 95.0 H Lymphocytes % (Manual) 2.0 L Basophils % (Manual) 2.0 H Seg Neutrophils # Seg Neutrophils # Man 13.8 H Lymphocytes # (Manual) 0.3 L Basophils # (Manual) 0.3 H POC ABG pH POC ABG pCO2 POC ABG pO2 Sodium 134 L 135 L Potassium 3.2 L Chloride 90.8 L 93.6 L Carbon Dioxide BUN 28 H 30 H Creatinine 2.0 H 2.1 H Glucose 742 H* 567 H* POC Glucose Hemoglobin A1c Calcium Phosphorus Magnesium AST Alkaline Phosphatase 246 H Total Protein 5.6 L Albumin 2.9 L Urine Creatinine Urine Total Protein 05/30/17 05/30/17 05/30/17 16:35 17:55 18:59 WBC RBC Hgb Hct MCH RDW Plt Count Lymph % (Auto) Dickenson % (Auto) Dickenson # Seg Neutrophils % Seg Neuts % (Manual) Lymphocytes % (Manual) Basophils % (Manual) Seg Neutrophils # Seg Neutrophils # Man Lymphocytes # (Manual) Basophils # (Manual) POC ABG pH 7.544 H POC ABG pCO2 32.0 L POC ABG pO2 155 H Sodium Potassium 3.1 L Chloride 93.9 L Carbon Dioxide BUN 30 H Creatinine 2.0 H Glucose 561 H* POC Glucose 497 H Hemoglobin A1c Calcium Phosphorus Magnesium AST Alkaline Phosphatase Total Protein Albumin Urine Creatinine Urine Total Protein 05/30/17 05/30/17 05/30/17 19:31 19:31 21:38 WBC RBC Hgb Hct MCH RDW Plt Count Lymph % (Auto) Dickenson % (Auto) Dickenson # Seg Neutrophils % Seg Neuts % (Manual) Lymphocytes % (Manual) Basophils % (Manual) Seg Neutrophils # Seg Neutrophils # Man Lymphocytes # (Manual) Basophils # (Manual) POC ABG pH POC ABG pCO2 POC ABG pO2 Sodium 135 L Potassium 2.9 L* Chloride 93.8 L 95.4 L Carbon Dioxide 20 L BUN 29 H 30 H Creatinine 2.2 H 2.3 H Glucose 478 H 364 H POC Glucose Hemoglobin A1c Calcium Phosphorus 2.20 L D Magnesium 1.40 L AST 42 H Alkaline Phosphatase 177 H Total Protein 5.4 L Albumin 2.4 L Urine Creatinine Urine Total Protein 05/30/17 05/31/17 05/31/17 23:06 02:17 05:27 WBC RBC Hgb Hct MCH RDW Plt Count Lymph % (Auto) Dickenson % (Auto) Dickenson # Seg Neutrophils % Seg Neuts % (Manual) Lymphocytes % (Manual) Basophils % (Manual) Seg Neutrophils # Seg Neutrophils # Man Lymphocytes # (Manual) Basophils # (Manual) POC ABG pH 7.489 H POC ABG pCO2 POC ABG pO2 Sodium Potassium 3.2 L 3.5 L Chloride Carbon Dioxide BUN 30 H 31 H Creatinine 2.5 H 2.4 H Glucose 288 H 246 H POC Glucose Hemoglobin A1c Calcium 8.3 L Phosphorus Magnesium AST Alkaline Phosphatase Total Protein Albumin Urine Creatinine Urine Total Protein 05/31/17 05/31/17 05/31/17 05:45 05:45 05:45 WBC RBC Hgb Hct MCH RDW Plt Count Lymph % (Auto) Dickenson % (Auto) Dickenson # Seg Neutrophils % Seg Neuts % (Manual) Lymphocytes % (Manual) Basophils % (Manual) Seg Neutrophils # Seg Neutrophils # Man Lymphocytes # (Manual) Basophils # (Manual) POC ABG pH POC ABG pCO2 POC ABG pO2 Sodium Potassium Chloride Carbon Dioxide BUN 32 H 30 H Creatinine 2.5 H 2.6 H Glucose 266 H 271 H POC Glucose Hemoglobin A1c 9.7 H Calcium 8.3 L 8.2 L Phosphorus Magnesium AST Alkaline Phosphatase 145 H Total Protein 4.7 L Albumin 1.8 L Urine Creatinine Urine Total Protein 05/31/17 05/31/17 05/31/17 08:18 09:20 12:18 WBC RBC Hgb Hct MCH RDW Plt Count Lymph % (Auto) Dickenson % (Auto) Dickenson # Seg Neutrophils % Seg Neuts % (Manual) Lymphocytes % (Manual) Basophils % (Manual) Seg Neutrophils # Seg Neutrophils # Man Lymphocytes # (Manual) Basophils # (Manual) POC ABG pH POC ABG pCO2 POC ABG pO2 Sodium Potassium Chloride Carbon Dioxide BUN Creatinine Glucose POC Glucose 300 H 254 H 170 H Hemoglobin A1c Calcium Phosphorus Magnesium AST Alkaline Phosphatase Total Protein Albumin Urine Creatinine Urine Total Protein 05/31/17 05/31/17 05/31/17 14:09 14:17 14:27 WBC RBC Hgb Hct MCH RDW Plt Count Lymph % (Auto) Dickenson % (Auto) Dickenson # Seg Neutrophils % Seg Neuts % (Manual) Lymphocytes % (Manual) Basophils % (Manual) Seg Neutrophils # Seg Neutrophils # Man Lymphocytes # (Manual) Basophils # (Manual) POC ABG pH POC ABG pCO2 POC ABG pO2 Sodium Potassium 3.4 L Chloride 107.1 H Carbon Dioxide BUN 30 H Creatinine 2.6 H Glucose 38 L* POC Glucose < 40 L 189 H Hemoglobin A1c Calcium 7.6 L Phosphorus Magnesium AST Alkaline Phosphatase Total Protein Albumin Urine Creatinine Urine Total Protein 05/31/17 05/31/17 05/31/17 15:01 16:01 17:19 WBC RBC Hgb Hct MCH RDW Plt Count Lymph % (Auto) Dickenson % (Auto) Dickenson # Seg Neutrophils % Seg Neuts % (Manual) Lymphocytes % (Manual) Basophils % (Manual) Seg Neutrophils # Seg Neutrophils # Man Lymphocytes # (Manual) Basophils # (Manual) POC ABG pH POC ABG pCO2 POC ABG pO2 Sodium Potassium Chloride Carbon Dioxide BUN Creatinine Glucose POC Glucose 130 H 165 H 131 H Hemoglobin A1c Calcium Phosphorus Magnesium AST Alkaline Phosphatase Total Protein Albumin Urine Creatinine Urine Total Protein 05/31/17 05/31/17 05/31/17 18:46 19:54 20:36 WBC RBC Hgb Hct MCH RDW Plt Count Lymph % (Auto) Dickenson % (Auto) Dickenson # Seg Neutrophils % Seg Neuts % (Manual) Lymphocytes % (Manual) Basophils % (Manual) Seg Neutrophils # Seg Neutrophils # Man Lymphocytes # (Manual) Basophils # (Manual) POC ABG pH POC ABG pCO2 POC ABG pO2 Sodium Potassium Chloride Carbon Dioxide BUN 29 H Creatinine 2.4 H Glucose 124 H POC Glucose 128 H 157 H Hemoglobin A1c Calcium 7.9 L Phosphorus Magnesium AST Alkaline Phosphatase Total Protein Albumin Urine Creatinine Urine Total Protein 05/31/17 06/01/17 06/01/17 21:41 03:22 04:06 WBC RBC Hgb Hct MCH RDW Plt Count Lymph % (Auto) Dickenson % (Auto) Dickenson # Seg Neutrophils % Seg Neuts % (Manual) Lymphocytes % (Manual) Basophils % (Manual) Seg Neutrophils # Seg Neutrophils # Man Lymphocytes # (Manual) Basophils # (Manual) POC ABG pH POC ABG pCO2 POC ABG pO2 Sodium Potassium Chloride Carbon Dioxide 19 L BUN 29 H Creatinine 2.6 H Glucose 205 H POC Glucose 158 H 251 H Hemoglobin A1c Calcium 7.8 L Phosphorus Magnesium AST Alkaline Phosphatase Total Protein Albumin Urine Creatinine Urine Total Protein 06/01/17 06/01/17 06/01/17 04:30 09:15 09:59 WBC 19.7 H RBC Hgb 10.0 L Hct MCH 27 L RDW 17.1 H Plt Count Lymph % (Auto) Dickenson % (Auto) Dickenson # Seg Neutrophils % Seg Neuts % (Manual) Lymphocytes % (Manual) Basophils % (Manual) Seg Neutrophils # Seg Neutrophils # Man Lymphocytes # (Manual) Basophils # (Manual) POC ABG pH 7.464 H POC ABG pCO2 31.3 L POC ABG pO2 Sodium Potassium Chloride Carbon Dioxide BUN Creatinine Glucose POC Glucose 330 H Hemoglobin A1c Calcium Phosphorus Magnesium AST Alkaline Phosphatase Total Protein Albumin Urine Creatinine Urine Total Protein 06/01/17 06/01/17 06/01/17 11:36 12:25 13:43 WBC RBC Hgb Hct MCH RDW Plt Count Lymph % (Auto) Dickenson % (Auto) Dickenson # Seg Neutrophils % Seg Neuts % (Manual) Lymphocytes % (Manual) Basophils % (Manual) Seg Neutrophils # Seg Neutrophils # Man Lymphocytes # (Manual) Basophils # (Manual) POC ABG pH POC ABG pCO2 POC ABG pO2 Sodium Potassium Chloride Carbon Dioxide BUN Creatinine Glucose POC Glucose 431 H 434 H 445 H Hemoglobin A1c Calcium Phosphorus Magnesium AST Alkaline Phosphatase Total Protein Albumin Urine Creatinine Urine Total Protein 06/01/17 06/01/17 06/01/17 14:26 15:46 16:03 WBC RBC Hgb Hct MCH RDW Plt Count Lymph % (Auto) Dickenson % (Auto) Dickenson # Seg Neutrophils % Seg Neuts % (Manual) Lymphocytes % (Manual) Basophils % (Manual) Seg Neutrophils # Seg Neutrophils # Man Lymphocytes # (Manual) Basophils # (Manual) POC ABG pH POC ABG pCO2 POC ABG pO2 Sodium Potassium Chloride Carbon Dioxide BUN Creatinine Glucose POC Glucose 310 H 292 H 244 H Hemoglobin A1c Calcium Phosphorus Magnesium AST Alkaline Phosphatase Total Protein Albumin Urine Creatinine Urine Total Protein 06/01/17 06/01/17 06/01/17 16:59 17:49 19:05 WBC RBC Hgb Hct MCH RDW Plt Count Lymph % (Auto) Dickenson % (Auto) Dickenson # Seg Neutrophils % Seg Neuts % (Manual) Lymphocytes % (Manual) Basophils % (Manual) Seg Neutrophils # Seg Neutrophils # Man Lymphocytes # (Manual) Basophils # (Manual) POC ABG pH POC ABG pCO2 POC ABG pO2 Sodium Potassium Chloride Carbon Dioxide BUN Creatinine Glucose POC Glucose 260 H 203 H 156 H Hemoglobin A1c Calcium Phosphorus Magnesium AST Alkaline Phosphatase Total Protein Albumin Urine Creatinine Urine Total Protein 06/02/17 06/02/17 06/02/17 00:09 01:06 02:31 WBC RBC Hgb Hct MCH RDW Plt Count Lymph % (Auto) Dickenson % (Auto) Dickenson # Seg Neutrophils % Seg Neuts % (Manual) Lymphocytes % (Manual) Basophils % (Manual) Seg Neutrophils # Seg Neutrophils # Man Lymphocytes # (Manual) Basophils # (Manual) POC ABG pH POC ABG pCO2 POC ABG pO2 Sodium Potassium Chloride Carbon Dioxide BUN Creatinine Glucose POC Glucose 137 H 146 H 182 H Hemoglobin A1c Calcium Phosphorus Magnesium AST Alkaline Phosphatase Total Protein Albumin Urine Creatinine Urine Total Protein 06/02/17 06/02/17 06/02/17 04:03 04:24 04:24 WBC 21.0 H RBC 3.62 L Hgb Hct 29.6 L MCH RDW 16.5 H Plt Count Lymph % (Auto) Dickenson % (Auto) Dickenson # Seg Neutrophils % Seg Neuts % (Manual) 98.0 H Lymphocytes % (Manual) 1.0 L Basophils % (Manual) Seg Neutrophils # Seg Neutrophils # Man 20.6 H Lymphocytes # (Manual) 0.2 L Basophils # (Manual) POC ABG pH POC ABG pCO2 POC ABG pO2 Sodium Potassium Chloride Carbon Dioxide 20 L BUN 36 H Creatinine 2.8 H Glucose 137 H POC Glucose 150 H Hemoglobin A1c Calcium 7.5 L Phosphorus 4.60 H Magnesium 1.50 L AST Alkaline Phosphatase 132 H Total Protein 4.1 L Albumin 1.7 L Urine Creatinine Urine Total Protein 06/02/17 06/02/17 06/02/17 05:01 05:14 06:20 WBC RBC Hgb Hct MCH RDW Plt Count Lymph % (Auto) Dickenson % (Auto) Dickenson # Seg Neutrophils % Seg Neuts % (Manual) Lymphocytes % (Manual) Basophils % (Manual) Seg Neutrophils # Seg Neutrophils # Man Lymphocytes # (Manual) Basophils # (Manual) POC ABG pH 7.517 H POC ABG pCO2 28.4 L POC ABG pO2 67 L Sodium Potassium Chloride Carbon Dioxide BUN Creatinine Glucose POC Glucose 137 H 163 H Hemoglobin A1c Calcium Phosphorus Magnesium AST Alkaline Phosphatase Total Protein Albumin Urine Creatinine Urine Total Protein 06/02/17 06/02/17 06/02/17 07:43 09:40 10:18 WBC RBC Hgb Hct MCH RDW Plt Count Lymph % (Auto) Dickenson % (Auto) Dickenson # Seg Neutrophils % Seg Neuts % (Manual) Lymphocytes % (Manual) Basophils % (Manual) Seg Neutrophils # Seg Neutrophils # Man Lymphocytes # (Manual) Basophils # (Manual) POC ABG pH POC ABG pCO2 POC ABG pO2 Sodium Potassium Chloride Carbon Dioxide BUN Creatinine Glucose POC Glucose 135 H 196 H Hemoglobin A1c Calcium Phosphorus Magnesium AST Alkaline Phosphatase Total Protein Albumin Urine Creatinine Urine Total Protein < 4 L 06/02/17 06/02/17 06/02/17 10:33 11:55 17:39 WBC RBC Hgb Hct MCH RDW Plt Count Lymph % (Auto) Dickenson % (Auto) Dickenson # Seg Neutrophils % Seg Neuts % (Manual) Lymphocytes % (Manual) Basophils % (Manual) Seg Neutrophils # Seg Neutrophils # Man Lymphocytes # (Manual) Basophils # (Manual) POC ABG pH POC ABG pCO2 POC ABG pO2 Sodium Potassium Chloride Carbon Dioxide BUN Creatinine Glucose POC Glucose 188 H 110 H 150 H Hemoglobin A1c Calcium Phosphorus Magnesium AST Alkaline Phosphatase Total Protein Albumin Urine Creatinine Urine Total Protein 06/02/17 06/02/17 06/03/17 18:12 21:32 02:02 WBC RBC Hgb Hct MCH RDW Plt Count Lymph % (Auto) Dickenson % (Auto) Dickenson # Seg Neutrophils % Seg Neuts % (Manual) Lymphocytes % (Manual) Basophils % (Manual) Seg Neutrophils # Seg Neutrophils # Man Lymphocytes # (Manual) Basophils # (Manual) POC ABG pH POC ABG pCO2 POC ABG pO2 Sodium Potassium Chloride Carbon Dioxide BUN Creatinine Glucose POC Glucose 131 H 143 H 191 H Hemoglobin A1c Calcium Phosphorus Magnesium AST Alkaline Phosphatase Total Protein Albumin Urine Creatinine Urine Total Protein 06/03/17 06/03/17 06/03/17 04:14 04:14 05:06 WBC 21.1 H RBC Hgb Hct MCH 27 L RDW 15.9 H Plt Count 447 H Lymph % (Auto) Dickenson % (Auto) Dickenson # Seg Neutrophils % Seg Neuts % (Manual) 94.0 H Lymphocytes % (Manual) 3.0 L Basophils % (Manual) Seg Neutrophils # Seg Neutrophils # Man 19.8 H Lymphocytes # (Manual) 0.6 L Basophils # (Manual) POC ABG pH POC ABG pCO2 28.6 L POC ABG pO2 112 H Sodium Potassium Chloride Carbon Dioxide 14 L BUN 45 H Creatinine 2.8 H Glucose 211 H POC Glucose Hemoglobin A1c Calcium 8.0 L Phosphorus Magnesium AST Alkaline Phosphatase Total Protein Albumin Urine Creatinine Urine Total Protein 06/03/17 06/03/17 06/03/17 06:00 10:20 13:43 WBC RBC Hgb Hct MCH RDW Plt Count Lymph % (Auto) Dickenson % (Auto) Dickenson # Seg Neutrophils % Seg Neuts % (Manual) Lymphocytes % (Manual) Basophils % (Manual) Seg Neutrophils # Seg Neutrophils # Man Lymphocytes # (Manual) Basophils # (Manual) POC ABG pH POC ABG pCO2 POC ABG pO2 Sodium Potassium Chloride Carbon Dioxide BUN Creatinine Glucose POC Glucose 224 H 226 H 296 H Hemoglobin A1c Calcium Phosphorus Magnesium AST Alkaline Phosphatase Total Protein Albumin Urine Creatinine Urine Total Protein 06/03/17 06/03/17 06/03/17 17:38 19:23 20:45 WBC RBC Hgb Hct MCH RDW Plt Count Lymph % (Auto) Dickenson % (Auto) Dickenson # Seg Neutrophils % Seg Neuts % (Manual) Lymphocytes % (Manual) Basophils % (Manual) Seg Neutrophils # Seg Neutrophils # Man Lymphocytes # (Manual) Basophils # (Manual) POC ABG pH POC ABG pCO2 POC ABG pO2 Sodium Potassium Chloride Carbon Dioxide BUN Creatinine Glucose POC Glucose 295 H 275 H 338 H Hemoglobin A1c Calcium Phosphorus Magnesium AST Alkaline Phosphatase Total Protein Albumin Urine Creatinine Urine Total Protein 06/03/17 06/03/17 06/04/17 21:50 23:08 00:16 WBC RBC Hgb Hct MCH RDW Plt Count Lymph % (Auto) Dickenson % (Auto) Dickenson # Seg Neutrophils % Seg Neuts % (Manual) Lymphocytes % (Manual) Basophils % (Manual) Seg Neutrophils # Seg Neutrophils # Man Lymphocytes # (Manual) Basophils # (Manual) POC ABG pH POC ABG pCO2 POC ABG pO2 Sodium Potassium Chloride Carbon Dioxide BUN Creatinine Glucose POC Glucose 223 H 214 H 226 H Hemoglobin A1c Calcium Phosphorus Magnesium AST Alkaline Phosphatase Total Protein Albumin Urine Creatinine Urine Total Protein 06/04/17 06/04/17 06/04/17 01:05 02:07 03:27 WBC RBC Hgb Hct MCH RDW Plt Count Lymph % (Auto) Dickenson % (Auto) Dickenson # Seg Neutrophils % Seg Neuts % (Manual) Lymphocytes % (Manual) Basophils % (Manual) Seg Neutrophils # Seg Neutrophils # Man Lymphocytes # (Manual) Basophils # (Manual) POC ABG pH POC ABG pCO2 POC ABG pO2 Sodium Potassium Chloride Carbon Dioxide BUN Creatinine Glucose POC Glucose 217 H 229 H 185 H Hemoglobin A1c Calcium Phosphorus Magnesium AST Alkaline Phosphatase Total Protein Albumin Urine Creatinine Urine Total Protein 06/04/17 06/04/17 06/04/17 03:52 04:05 04:05 WBC 19.6 H RBC Hgb Hct MCH 26 L RDW 15.6 H Plt Count 564 H Lymph % (Auto) 7.3 L Dickenson % (Auto) 10.8 H Dickenson # 2.1 H Seg Neutrophils % 81.4 H Seg Neuts % (Manual) Lymphocytes % (Manual) Basophils % (Manual) Seg Neutrophils # 15.9 H Seg Neutrophils # Man Lymphocytes # (Manual) Basophils # (Manual) POC ABG pH POC ABG pCO2 POC ABG pO2 Sodium Potassium Chloride Carbon Dioxide 17 L BUN 52 H Creatinine 2.5 H Glucose 163 H POC Glucose 181 H Hemoglobin A1c Calcium 7.9 L Phosphorus Magnesium AST Alkaline Phosphatase Total Protein Albumin Urine Creatinine Urine Total Protein 06/04/17 06/04/17 06/04/17 04:56 05:39 06:12 WBC RBC Hgb Hct MCH RDW Plt Count Lymph % (Auto) Dickenson % (Auto) Dickenson # Seg Neutrophils % Seg Neuts % (Manual) Lymphocytes % (Manual) Basophils % (Manual) Seg Neutrophils # Seg Neutrophils # Man Lymphocytes # (Manual) Basophils # (Manual) POC ABG pH 7.486 H POC ABG pCO2 26.8 L POC ABG pO2 Sodium Potassium Chloride Carbon Dioxide BUN Creatinine Glucose POC Glucose 208 H 225 H Hemoglobin A1c Calcium Phosphorus Magnesium AST Alkaline Phosphatase Total Protein Albumin Urine Creatinine Urine Total Protein 06/04/17 06/04/17 06/04/17 07:07 08:06 09:15 WBC RBC Hgb Hct MCH RDW Plt Count Lymph % (Auto) Dickenson % (Auto) Dickenson # Seg Neutrophils % Seg Neuts % (Manual) Lymphocytes % (Manual) Basophils % (Manual) Seg Neutrophils # Seg Neutrophils # Man Lymphocytes # (Manual) Basophils # (Manual) POC ABG pH POC ABG pCO2 POC ABG pO2 Sodium Potassium Chloride Carbon Dioxide BUN Creatinine Glucose POC Glucose 201 H 171 H 178 H Hemoglobin A1c Calcium Phosphorus Magnesium AST Alkaline Phosphatase Total Protein Albumin Urine Creatinine Urine Total Protein 06/04/17 06/04/17 06/04/17 10:16 12:22 17:21 WBC RBC Hgb Hct MCH RDW Plt Count Lymph % (Auto) Dickenson % (Auto) Dickenson # Seg Neutrophils % Seg Neuts % (Manual) Lymphocytes % (Manual) Basophils % (Manual) Seg Neutrophils # Seg Neutrophils # Man Lymphocytes # (Manual) Basophils # (Manual) POC ABG pH POC ABG pCO2 POC ABG pO2 Sodium Potassium Chloride Carbon Dioxide BUN Creatinine Glucose POC Glucose 191 H 188 H Hemoglobin A1c Calcium Phosphorus Magnesium AST Alkaline Phosphatase Total Protein Albumin Urine Creatinine 78.7 H Urine Total Protein 197 H 06/04/17 06/04/17 06/05/17 17:56 22:10 00:00 WBC RBC Hgb Hct MCH RDW Plt Count Lymph % (Auto) Dickenson % (Auto) Dickenson # Seg Neutrophils % Seg Neuts % (Manual) Lymphocytes % (Manual) Basophils % (Manual) Seg Neutrophils # Seg Neutrophils # Man Lymphocytes # (Manual) Basophils # (Manual) POC ABG pH POC ABG pCO2 POC ABG pO2 Sodium Potassium Chloride Carbon Dioxide 17 L BUN 55 H Creatinine 2.3 H Glucose 300 H POC Glucose 266 H 337 H Hemoglobin A1c Calcium 7.4 L Phosphorus Magnesium AST Alkaline Phosphatase Total Protein Albumin Urine Creatinine Urine Total Protein 06/05/17 06/05/17 06/05/17 03:26 04:11 05:13 WBC RBC Hgb Hct MCH RDW Plt Count Lymph % (Auto) Dickenson % (Auto) Dickenson # Seg Neutrophils % Seg Neuts % (Manual) Lymphocytes % (Manual) Basophils % (Manual) Seg Neutrophils # Seg Neutrophils # Man Lymphocytes # (Manual) Basophils # (Manual) POC ABG pH 7.586 H POC ABG pCO2 22.6 L POC ABG pO2 179 H Sodium Potassium Chloride Carbon Dioxide 19 L BUN 55 H Creatinine 2.2 H Glucose 226 H POC Glucose 220 H Hemoglobin A1c Calcium 7.7 L Phosphorus Magnesium AST Alkaline Phosphatase Total Protein Albumin Urine Creatinine Urine Total Protein 06/05/17 06/05/17 06/05/17 12:42 18:24 21:23 WBC RBC Hgb Hct MCH RDW Plt Count Lymph % (Auto) Dickenson % (Auto) Dickenson # Seg Neutrophils % Seg Neuts % (Manual) Lymphocytes % (Manual) Basophils % (Manual) Seg Neutrophils # Seg Neutrophils # Man Lymphocytes # (Manual) Basophils # (Manual) POC ABG pH POC ABG pCO2 POC ABG pO2 Sodium Potassium Chloride Carbon Dioxide BUN Creatinine Glucose POC Glucose 168 H 121 H 166 H Hemoglobin A1c Calcium Phosphorus Magnesium AST Alkaline Phosphatase Total Protein Albumin Urine Creatinine Urine Total Protein 06/06/17 06/06/17 06/06/17 00:14 04:11 06:19 WBC RBC Hgb Hct MCH RDW Plt Count Lymph % (Auto) Dickenson % (Auto) Dickenson # Seg Neutrophils % Seg Neuts % (Manual) Lymphocytes % (Manual) Basophils % (Manual) Seg Neutrophils # Seg Neutrophils # Man Lymphocytes # (Manual) Basophils # (Manual) POC ABG pH POC ABG pCO2 33.0 L POC ABG pO2 Sodium Potassium Chloride Carbon Dioxide BUN Creatinine Glucose POC Glucose 179 H 180 H Hemoglobin A1c Calcium Phosphorus Magnesium AST Alkaline Phosphatase Total Protein Albumin Urine Creatinine Urine Total Protein
--- NOTE | 2017-06-06 13:44 | Progress Note ---
Assessment and Plan - Patient Problems (1) Dilated cardiomyopathy Current Visit: Yes Status: Acute Plan to address problem: Echocardiogram demonstrates dilated cardiomyopathy, ejection fraction 15-20%. The chronicity of the cardiomyopathy is uncertain, no records available for review. Patient's home medications do include carvedilol, valsartan and a diuretic, which may suggest the cardiomyopathy is possibly not new. At this time, will recommend medical therapy with continued afterload reduction , beta blockers and oral antiplatelet therapy. Further cardiac evaluation and management will depend on clinical course. Prognosis is guarded. (2) Acute respiratory failure Current Visit: Yes Status: Acute Qualifiers: Respiratory failure complication: hypoxia Qualified Code(s): J96.01 - Acute respiratory failure with hypoxia Plan to address problem: Patient was admitted with a reported seizure event, currently has acute respiratory failure, unresponsive on the vent. During the course in the hospital, I do not see any cardiac tachycardia or bradycardia arrhythmias on telemetry monitoring. Subjective Date of service: 06/06/17 Principal diagnosis: coma Interval history: Patient is unresponsive, on the vent. On telemetry she is in a sinus rhythm at 90, blood pressure 150 systolic. Objective Vital Signs Temp Pulse Pulse Resp BP Pulse Ox 06/06/17 12:00 97.5 F L 06/06/17 11:00 94 H 166/91 06/06/17 09:55 100 H 166/91 100 06/06/17 09:00 91 H 17 148/84 100 06/06/17 08:00 97.6 F 92 H 16 158/101 100 06/06/17 07:01 96 H 18 140/81 100 06/06/17 06:21 95 H 15 148/84 100 06/06/17 06:11 101 H 18 148/84 100 06/06/17 06:08 93 H 148/94 06/06/17 06:07 93 H 148/94 06/06/17 06:01 96 H 14 148/84 99 06/06/17 05:51 93 H 12 158/88 100 06/06/17 05:41 97 H 15 158/88 100 06/06/17 05:31 93 H 15 158/88 100 06/06/17 05:21 96 H 14 155/88 100 06/06/17 05:11 98 H 15 155/88 100 06/06/17 05:01 98 H 15 155/88 100 03/24/18 04:51 97 H 16 166/92 100 24/18 04:41 98 H 15 166/92 100 18 04:31 96 H 15 166/92 100 18 04:21 99 H 14 174/99 100 18 04:11 99 H 14 174/99 100 18 04:01 107 H 20 174/99 100 18 04:00 98.6 F 06/06/17 03:58 100 H 167/94 100 18 03:51 98 H 16 167/94 100 18 03:41 108 H 16 167/94 99 18 03:30 98 H 15 167/94 100 18 03:21 100 H 16 163/93 99 18 03:11 102 H 14 163/93 100 18 03:01 100 H 16 163/93 100 18 02:51 99 H 16 175/98 100 18 02:41 104 H 17 175/98 100 18 02:31 102 H 17 175/98 99 18 02:21 99 H 17 169/92 100 18 02:11 99 H 16 169/92 100 18 02:00 101 H 16 170/101 100 18 01:51 98 H 16 170/101 100 18 01:41 102 H 17 170/101 100 06/06/18 01:30 106 H 18 170/101 100 18 01:21 101 H 17 162/90 100 18 01:11 100 H 17 162/90 100 06/06/18 01:01 100 H 16 162/90 100 24/18 00:51 106 H 20 158/88 100 24/18 00:41 99 H 15 158/88 100 24/18 00:31 100 H 15 158/88 100 18 00:21 100 H 17 161/93 100 18 00:11 101 H 16 161/93 100 24/18 00:01 110 H 15 161/93 100 18 00:00 98.6 F 06/05/17 23:51 100 H 17 164/94 100 03/23/18 23:50 99 H 164/94 100 03/23/18 23:41 97 H 16 164/94 100 03/23/18 23:31 97 H 17 164/94 100 03/23/18 23:27 99 H 18 168/100 100 0323/18 23:21 97 H 18 168/100 100 03/23/18 23:11 97 H 18 168/100 100 0323/18 23:00 98 H 18 168/100 100 0323/18 22:51 101 H 20 167/98 97 03/23/18 22:41 97 H 18 167/98 100 0323/18 22:31 98 H 17 167/98 100 0323/18 22:21 96 H 18 163/95 100 0323/18 22:11 95 H 18 163/95 100 03/18 22:01 93 H 17 163/95 100 03/18 22:00 94 H 06/05/18 21:51 96 H 18 170/98 100 03/18 21:41 95 H 17 170/98 100 03/18 21:31 103 H 20 159/88 100 03/18 21:21 96 H 17 159/88 100 0323/18 21:11 97 H 18 159/88 100 06/05/18 21:05 99 H 159/88 06/05/18 21:01 94 H 18 159/88 100 06/05/18 20:51 98 H 19 159/88 100 03/18 20:41 99 H 18 159/88 100 03/18 20:31 95 H 17 159/88 100 03/18 20:21 98 H 17 159/88 100 0323/18 20:11 94 H 18 159/88 100 0323/18 20:01 97 H 19 159/88 100 0323/18 20:00 98.6 F 06/05/18 19:51 94 H 18 159/88 100 06/05/18 19:40 94 H 19 159/88 100 06/05/18 19:31 95 H 18 159/88 100 03/18 19:21 113 H 26 H 159/88 100 03/18 19:18 96 H 17 159/88 100 03/18 19:11 98 H 17 159/88 100 03/18 19:01 97 H 17 161/90 100 06/05/18 19:00 94 H 19 06/05/18 18:51 92 H 18 161/90 100 06/05/18 18:41 97 H 18 161/90 100 06/05/18 18:31 97 H 19 154/89 100 06/05/18 18:21 98 H 19 154/89 100 06/05/18 18:11 95 H 19 154/89 100 06/05/18 18:01 94 H 18 154/89 100 06/05/18 17:51 94 H 18 154/89 100 06/05/18 17:41 102 H 18 154/89 100 06/05/18 17:31 99 H 20 167/95 100 06/05/18 17:21 112 H 26 H 140/75 06/05/18 17:11 110 H 19 140/75 100 06/05/18 17:01 98 H 19 154/89 100 06/05/18 16:51 92 H 19 148/79 100 06/05/18 16:41 89 18 148/79 100 06/05/18 16:31 88 17 140/75 100 06/05/18 16:20 90 16 148/79 100 06/05/18 16:11 98 H 19 148/79 99 06/05/18 16:01 91 H 19 148/79 100 06/05/18 16:00 98.6 F 97 H 19 148/79 99 06/05/18 15:51 95 H 16 141/78 99 06/05/18 15:41 95 H 19 141/78 99 06/05/18 15:31 95 H 20 141/78 98 06/05/18 15:21 96 H 21 132/71 99 06/05/18 15:11 95 H 22 132/71 99 /23/18 15:01 93 H 19 135/75 99 06/05/18 14:50 95 H 19 132/71 99 23/18 14:41 93 H 19 132/71 99 06/05/18 14:31 92 H 19 132/71 99 06/05/18 14:21 95 H 16 99 23/18 14:10 91 H 17 139/75 99 06/05/18 14:04 94 H 126/70 06/05/18 14:01 90 18 139/75 99 03/23/18 13:51 92 H 20 126/70 99 - Physical Examination General: Other (intubated on the vent.) HEENT: Positive: Other (pupils fixed) Neck: Positive: neck supple Lungs: Positive: Decreased Breath Sounds Neuro: Positive: Other (unresponsive, on the vent) Abdomen: Positive: Soft Skin: Positive: Clear Extremities: Absent: edema - Imaging and Cardiology EKG: report reviewed (sinus tachycardia)
--- NOTE | 2017-06-06 14:43 | Progress Note ---
Assessment and Plan - Patient Problems (1) Acute renal failure with tubular necrosis Current Visit: Yes Status: Acute Plan to address problem: Non-Oliguric Acute renal failure/acute tubular necrosis. Kidney function was improving. No labs today. Follow up labs in morning (2) Acute respiratory failure Current Visit: Yes Status: Acute Qualifiers: Respiratory failure complication: hypoxia Qualified Code(s): J96.01 - Acute respiratory failure with hypoxia Plan to address problem: Ventilator management by primary attending (3) Acute systolic heart failure Current Visit: Yes Status: Acute Plan to address problem: Continue diuretics and beta jas. ARAM inhibitor allergy noted (4) Hyperosmolar non-ketotic state in patient with type 2 diabetes mellitus Current Visit: Yes Status: Acute Plan to address problem: Blood sugar management by primary attending (5) Hypertension Current Visit: Yes Status: Acute Qualifiers: Hypertension type: essential hypertension Qualified Code(s): I10 - Essential (primary) hypertension Plan to address problem: Follow blood pressure on current medications Subjective Date of service: 06/06/17 Principal diagnosis: coma Interval history: Patient seen lying in bed in the intensive care unit. Intubated on ventilator. Not communicating. Not following commands.\ Vent settings CMV 450/10/28% PEEP of 5 Objective - Exam Narrative Exam: Young -[place] female lying in bed intubated on ventilator HEENT: NCAT, endotracheal tube intact, orogastric tube intact Neck: Supple, no venous distention CVS: S1S2 RRR with no murmur, rub or gallop Chest: Low pitched rhonchi bilaterally Abdomen: Protuberant, soft, nontender, no organomegaly, bowel sounds are present Extremities: Bilateral upper extremity edema Neuro: Eyes open, not following commands - Vital Signs Vital signs: Vital Signs - 12hr 06/06/17 06/06/17 06/06/17 02:41 02:51 03:01 Temperature Pulse Rate 104 H 99 H 100 H Respiratory 17 16 16 Rate Blood Pressure 175/98 175/98 163/93 O2 Sat by Pulse 100 100 100 Oximetry 06/06/17 06/06/17 06/06/17 03:11 03:21 03:30 Temperature Pulse Rate 102 H 100 H 98 H Respiratory 14 16 15 Rate Blood Pressure 163/93 163/93 167/94 O2 Sat by Pulse 100 99 100 Oximetry 06/06/17 06/06/17 06/06/17 03:41 03:51 03:58 Temperature Pulse Rate 108 H 98 H 100 H Respiratory 16 16 Rate Blood Pressure 167/94 167/94 167/94 O2 Sat by Pulse 99 100 100 Oximetry 06/06/17 06/06/17 06/06/17 04:00 04:01 04:11 Temperature 98.6 F Pulse Rate 107 H 99 H Respiratory 20 14 Rate Blood Pressure 174/99 174/99 O2 Sat by Pulse 100 100 Oximetry 06/06/17 06/06/17 06/06/17 04:21 04:31 04:41 Temperature Pulse Rate 99 H 96 H 98 H Respiratory 14 15 15 Rate Blood Pressure 174/99 166/92 166/92 O2 Sat by Pulse 100 100 100 Oximetry 06/06/17 06/06/17 06/06/17 04:51 05:01 05:11 Temperature Pulse Rate 97 H 98 H 98 H Respiratory 16 15 15 Rate Blood Pressure 166/92 155/88 155/88 O2 Sat by Pulse 100 100 100 Oximetry 06/06/17 06/06/17 06/06/17 05:21 05:31 05:41 Temperature Pulse Rate 96 H 93 H 97 H Respiratory 14 15 15 Rate Blood Pressure 155/88 158/88 158/88 O2 Sat by Pulse 100 100 100 Oximetry 06/06/17 06/06/17 06/06/17 05:51 06:01 06:07 Temperature Pulse Rate 93 H 96 H 93 H Respiratory 12 14 Rate Blood Pressure 158/88 148/84 148/94 O2 Sat by Pulse 100 99 Oximetry 06/06/17 06/06/17 06/06/17 06:08 06:11 06:21 Temperature Pulse Rate 93 H 101 H 95 H Respiratory 18 15 Rate Blood Pressure 148/94 148/84 148/84 O2 Sat by Pulse 100 100 Oximetry 06/06/17 06/06/17 06/06/17 07:01 08:00 09:00 Temperature 97.6 F Pulse Rate 96 H 92 H 91 H Respiratory 18 16 17 Rate Blood Pressure 140/81 158/101 148/84 O2 Sat by Pulse 100 100 100 Oximetry 06/06/17 06/06/17 06/06/17 09:55 11:00 12:00 Temperature 97.5 F L Pulse Rate 100 H 94 H Respiratory Rate Blood Pressure 166/91 166/91 O2 Sat by Pulse 100 Oximetry - Lab 06/04/17 04:05 06/05/17 04:11 Most recent lab results Calcium 7.7 mg/dL (8.4-10.2) L 06/05/17 04:11 Phosphorus 4.60 mg/dL (2.5-4.5) H 06/02/17 04:24 Magnesium 1.50 mg/dL (1.7-2.3) L 06/02/17 04:24 Urine Creatinine 78.7 mg/dL (0.1-20.0) H 06/04/17 17:21 Urine Sodium 10 mmol/L 06/02/17 10:18 Urine Total Protein 197 mg/dL (5-11.8) H 06/04/17 17:21
[2017-06-06] MEDS: ZAROXOLYN PO SCH ×2 (15:14→23:42)
[2017-06-06] MEDS: D50W (25GM) Syringe IV PRN (18:42)
--- NOTE | 2017-06-06 22:50 | Progress Note ---
Assessment and Plan Assessment and plan: 36-year-old -[place] female was admitted to the floor for seizure episode, altered mental status, acute hypoxic respiratory failure, patient was intubated in the emergency department patient had PEA and resuscitated successfully. 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 at bedside today -MRI reviewed, D/W NEUROLOGY -[place] [facility] Seizure disorder-complex partial - Patient is on IV Keppra -try memantine -Neurology following -Await MRI Cardiomyopathy-possible -Cardiology consult HONK - on Insulin drip - Continue Insulin drip, Advised nursing about gap and need to continue and the transition method. Patient has episodes of hypothermia and leukocytosis - Blood culture was taken and empirically on Vanc and Zosyn - Further rise in Leukocytosis likely secondary to Steroids Acute renal failure - Continue IV fluids Malnutrition - Patient is currently on on OG-tube feeding Hypertension - Continue home medications ?Cardiac arrest DVT prophylaxis Disposition - Continue ICU care. poor prognosis Discussed with family The high probability of a clinically significant, sudden or life threatening deterioration of the [respiratory, cardiovascular, neurologic, renal] system(s) required my full and direct attention, intervention and personal management. The aggregate critical care time was [35] minutes. This time is in addition to time spent performing reported procedures but includes the following: [x] Data Review and interpretation [x] Patient assessment and monitoring of vital signs [x] Documentation [x] Medication orders and management History Interval history: Patient seen and examined remains unresponsive on MV now on CPAP. Off sedation. NO clinical change. at bedside Hospitalist Physical - Physical exam Narrative exam: Not in cardiopulmonary distress. The patient appeared well nourished and normally developed. Vital signs as documented. HEENT: Swelling of orbital, oral and facial soft tissue structures. ETT is in place No scleral icterus . Neck is without jugular venous distension, thyromegaly, or carotid bruits. Lungs are clear to auscultation. Cardiac exam reveals regular rate and Rhythm. First and second heart sounds normal. No murmurs, rubs or gallops. Abdominal exam reveals normal bowel sounds, no masses, no organomegaly and no aortic enlargement. Extremities are nonedematous and both femoral and pedal pulses are normal. Neuro: None responsive. Spontaneous eye opening observed. - Constitutional Vitals: Temp Pulse Resp BP Pulse Ox 97.8 F 89 14 157/86 100 06/06/17 20:00 06/06/17 20:00 06/06/17 20:00 06/06/17 20:00 06/06/17 20:00 General appearance: Present: other (unresponsive, on the ventilator) Results - Labs CBC & Chem 7: 06/04/17 04:05 06/07/17 07:51 Labs: Laboratory Last Values WBC 19.6 K/mm3 (4.5-11.0) H 06/04/17 04:05 RBC 3.94 M/mm3 (3.65-5.03) 06/04/17 04:05 Hgb 10.4 gm/dl (10.1-14.3) 06/04/17 04:05 Hct 32.1 % (30.3-42.9) 06/04/17 04:05 MCV 81 fl (79-97) 06/04/17 04:05 MCH 26 pg (28-32) L 06/04/17 04:05 MCHC 32 % (30-34) 06/04/17 04:05 RDW 15.6 % (13.2-15.2) H 06/04/17 04:05 Plt Count 564 K/mm3 (140-440) H 06/04/17 04:05 Lymph % (Auto) 7.3 % (13.4-35.0) L 06/04/17 04:05 [place] % (Auto) 10.8 % (0.0-7.3) H 06/04/17 04:05 Eos % (Auto) 0.1 % (0.0-4.3) 06/04/17 04:05 Baso % (Auto) 0.4 % (0.0-1.8) 06/04/17 04:05 Lymph # 1.4 K/mm3 (1.2-5.4) 06/04/17 04:05 [place] # 2.1 K/mm3 (0.0-0.8) H 06/04/17 04:05 Eos # 0.0 K/mm3 (0.0-0.4) 06/04/17 04:05 Baso # 0.1 K/mm3 (0.0-0.1) 06/04/17 04:05 Add Manual Diff Complete 06/03/17 04:14 Total Counted 100 06/03/17 04:14 Seg Neutrophils % 81.4 % (40.0-70.0) H 06/04/17 04:05 Seg Neuts % (Manual) 94.0 % (40.0-70.0) H 06/03/17 04:14 Band Neutrophils % 0 % 06/03/17 04:14 Lymphocytes % (Manual) 3.0 % (13.4-35.0) L 06/03/17 04:14 Reactive Lymphs % (Man) 0 % 06/03/17 04:14 Monocytes % (Manual) 3.0 % (0.0-7.3) 06/03/17 04:14 Eosinophils % (Manual) 0 % (0.0-4.3) 06/03/17 04:14 Basophils % (Manual) 0 % (0.0-1.8) 06/03/17 04:14 Metamyelocytes % 0 % 06/03/17 04:14 Myelocytes % 0 % 06/03/17 04:14 Promyelocytes % 0 % 06/03/17 04:14 Blast Cells % 0 % 06/03/17 04:14 Nucleated RBC % Not Reportable 06/03/17 04:14 Seg Neutrophils # 15.9 K/mm3 (1.8-7.7) H 06/04/17 04:05 Seg Neutrophils # Man 19.8 K/mm3 (1.8-7.7) H 06/03/17 04:14 Band Neutrophils # 0.0 K/mm3 06/03/17 04:14 Lymphocytes # (Manual) 0.6 K/mm3 (1.2-5.4) L 06/03/17 04:14 Abs React Lymphs (Man) 0.0 K/mm3 06/03/17 04:14 Monocytes # (Manual) 0.6 K/mm3 (0.0-0.8) 06/03/17 04:14 Eosinophils # (Manual) 0.0 K/mm3 (0.0-0.4) 06/03/17 04:14 Basophils # (Manual) 0.0 K/mm3 (0.0-0.1) 06/03/17 04:14 Metamyelocytes # 0.0 K/mm3 06/03/17 04:14 Myelocytes # 0.0 K/mm3 06/03/17 04:14 Promyelocytes # 0.0 K/mm3 06/03/17 04:14 Blast Cells # 0.0 K/mm3 06/03/17 04:14 WBC Morphology Not Reportable 06/03/17 04:14 Hypersegmented Neuts Not Reportable 06/03/17 04:14 Hyposegmented Neuts Not Reportable 06/03/17 04:14 Hypogranular Neuts Not Reportable 06/03/17 04:14 Smudge Cells Not Reportable 06/03/17 04:14 Toxic Granulation Not Reportable 06/03/17 04:14 Toxic Vacuolation Not Reportable 06/03/17 04:14 Dohle Bodies Not Reportable 06/03/17 04:14 Pelger-Huet Anomaly Not Reportable 06/03/17 04:14 Don Rods Not Reportable 06/03/17 04:14 Platelet Estimate Consistent w auto 06/03/17 04:14 Clumped Platelets Not Reportable 06/03/17 04:14 Plt Clumps, EDTA Not Reportable 06/03/17 04:14 Large Platelets Not Reportable 06/03/17 04:14 Giant Platelets Not Reportable 06/03/17 04:14 Platelet Satelliting Not Reportable 06/03/17 04:14 Plt Morphology Comment Not Reportable 06/03/17 04:14 RBC Morphology Not Reportable 06/03/17 04:14 Dimorphic RBCs Not Reportable 06/03/17 04:14 Polychromasia Not Reportable 06/03/17 04:14 Hypochromasia Not Reportable 06/03/17 04:14 Poikilocytosis Not Reportable 06/03/17 04:14 Anisocytosis Not Reportable 06/03/17 04:14 Microcytosis Not Reportable 06/03/17 04:14 Macrocytosis Not Reportable 06/03/17 04:14 Spherocytes Not Reportable 06/03/17 04:14 Pappenheimer Bodies Not Reportable 06/03/17 04:14 Sickle Cells Not Reportable 06/03/17 04:14 Target Cells Not Reportable 06/03/17 04:14 Tear Drop Cells Not Reportable 06/03/17 04:14 Ovalocytes Not Reportable 06/03/17 04:14 Helmet Cells Not Reportable 06/03/17 04:14 [place] Bodies Not Reportable 06/03/17 04:14 [place] Rings Not Reportable 06/03/17 04:14 [place] Cells Not Reportable 06/03/17 04:14 Bite Cells Not Reportable 06/03/17 04:14 Crenated Cell Not Reportable 06/03/17 04:14 Elliptocytes Not Reportable 06/03/17 04:14 Acanthocytes (Spur) Not Reportable 06/03/17 04:14 Rouleaux Not Reportable 06/03/17 04:14 Hemoglobin C Crystals Not Reportable 06/03/17 04:14 Schistocytes Not Reportable 06/03/17 04:14 Malaria parasites Not Reportable 06/03/17 04:14 Fadi Bodies Not Reportable 06/03/17 04:14 Hem Pathologist Commnt No 06/03/17 04:14 POC ABG pH 7.443 (7.35-7.45) 06/06/17 04:11 POC ABG pCO2 33.0 (35-45) L 06/06/17 04:11 POC ABG pO2 100 (80-105) 06/06/17 04:11 POC ABG HCO3 22.5 06/06/17 04:11 POC ABG Total CO2 24 06/06/17 04:11 POC ABG O2 Sat 98 06/06/17 04:11 POC ABG Base Excess -2 06/06/17 04:11 VBG pH 7.327 (7.320-7.420) 05/30/17 10:43 FiO2 35 % 06/06/17 04:11 Sodium 138 mmol/L (137-145) 06/05/17 04:11 Potassium 3.7 mmol/L (3.6-5.0) 06/05/17 04:11 Chloride 105.7 mmol/L (98-107) 06/05/17 04:11 Carbon Dioxide 19 mmol/L (22-30) L 06/05/17 04:11 Anion Gap 17 mmol/L 06/05/17 04:11 BUN 55 mg/dL (7-17) H 06/05/17 04:11 Creatinine 2.2 mg/dL (0.7-1.2) H 06/05/17 04:11 Estimated GFR 31 ml/min 06/05/17 04:11 BUN/Creatinine Ratio 25 % 06/05/17 04:11 Glucose 226 mg/dL (65-100) H 06/05/17 04:11 POC Glucose 98 (70-105) 06/06/17 21:53 Hemoglobin A1c 9.7 % (4-6) H 05/31/17 05:45 Calcium 7.7 mg/dL (8.4-10.2) L 06/05/17 04:11 Phosphorus 4.60 mg/dL (2.5-4.5) H 06/02/17 04:24 Magnesium 1.50 mg/dL (1.7-2.3) L 06/02/17 04:24 Total Bilirubin 0.50 mg/dL (0.1-1.2) 06/02/17 04:24 AST 23 units/L (5-40) 06/02/17 04:24 ALT 14 units/L (7-56) 06/02/17 04:24 Alkaline Phosphatase 132 units/L (35-129) H 06/02/17 04:24 Total Protein 4.1 g/dL (6.3-8.2) L 06/02/17 04:24 Albumin 1.7 g/dL (3.9-5) L 06/02/17 04:24 Albumin/Globulin Ratio 0.7 % 06/02/17 04:24 Urine Color Yellow (Yellow) 05/30/17 15:04 Urine Turbidity Clear (Clear) 05/30/17 15:04 Urine pH 7.0 (5.0-7.0) 05/30/17 15:04 Ur Specific [place] 1.021 (1.003-1.030) 05/30/17 15:04 Urine Protein >500 mg/dL (Negative) 05/30/17 15:04 Urine Glucose (UA) >=500 mg/dL (Negative) 05/30/17 15:04 Urine Ketones Tr mg/dL (Negative) 05/30/17 15:04 Urine Blood Sm (Negative) 05/30/17 15:04 Urine Nitrite Neg (Negative) 05/30/17 15:04 Urine Bilirubin Neg (Negative) 05/30/17 15:04 Urine Urobilinogen < 2.0 mg/dL (<2.0) 05/30/17 15:04 Ur Leukocyte Esterase Neg (Negative) 05/30/17 15:04 Urine WBC (Auto) 2.0 /HPF (0.0-6.0) 05/30/17 15:04 Urine RBC (Auto) 5.0 /HPF (0.0-6.0) 05/30/17 15:04 Urine Bacteria (Auto) 1+ /HPF (Negative) 05/30/17 15:04 Urine Mucus Few /HPF 05/30/17 15:04 Urine Creatinine 78.7 mg/dL (0.1-20.0) H 06/04/17 17:21 Urine Sodium 10 mmol/L 06/02/17 10:18 Urine Total Protein 197 mg/dL (5-11.8) H 06/04/17 17:21 Urine Opiates Screen Presumptive negative 05/30/17 15:04 Urine Methadone Screen Presumptive negative 05/30/17 15:04 Ur Barbiturates Screen Presumptive negative 05/30/17 15:04 Levetiracetam 21.2 mcg/mL 05/30/17 08:59 Ur Phencyclidine Scrn Presumptive negative 05/30/17 15:04 Ur Amphetamines Screen Presumptive negative 05/30/17 15:04 U Benzodiazepines Scrn Presumptive negative 05/30/17 15:04 Urine Cocaine Screen Presumptive negative 05/30/17 15:04 U Marijuana (THC) Screen Presumptive positive 05/30/17 15:04 Drugs of Abuse Note Disclamer 05/30/17 15:04
[2017-06-07] MEDS: APRESOLINE IV PRN (01:01)
[2017-06-07] MEDS: HumaLOG SUB-Q SCH ×3 (06:12→18:15)
[2017-06-07] MEDS: LASIX IV SCH ×2 (06:12→18:15)
[2017-06-07] MEDS: APRESOLINE PO SCH ×3 (06:13→22:19)
[2017-06-07] MEDS: ISORDIL TITRADOSE PO SCH ×3 (06:13→22:19)
[2017-06-07] MEDS: NAMENDA PO SCH ×2 (06:13→18:15)
[2017-06-07] MEDS: LOVENOX SUB-Q SCH (09:08)
[2017-06-07] MEDS: KEPPRA PO SCH ×2 (09:08→22:18)
[2017-06-07] MEDS: COREG PO SCH ×2 (09:08→22:19)
[2017-06-07] MEDS: ZAROXOLYN PO SCH ×2 (09:08→22:19)
[2017-06-07] MEDS: PEPCID PO SCH ×2 (09:09→22:19)
--- NOTE | 2017-06-07 11:12 | Progress Note ---
Assessment and Plan Assessment and plan: 36-year-old -[place] female was admitted to the floor for seizure episode, altered mental status, acute hypoxic respiratory failure, patient was intubated in the emergency department patient had PEA and resuscitated successfully. Acute hypoxic respiratory - intubated in the mechanical ventilation<96hrs - Now on CPAP on the vent Acute encephalopathy with anoxic hypoxic brain injury - treat underlying cause -no clinical change, family wants to discuss further with neurology. -MRI reviewed, Profound ischmic anoxic injury D/W NEUROLOGY, family -[place] [facility] [place] Seizure disorder-complex partial - Patient is on IV Keppra -trial memantine -Neurology following Cardiomyopathy-possible -Cardiology consult HONK - on Insulin drip - Continue Insulin drip, Advised nursing about gap and need to continue and the transition method. Patient has episodes of hypothermia and leukocytosis - Blood culture was taken and empirically on Vanc and Zosyn - Further rise in Leukocytosis likely secondary to Steroids Acute renal failure - Continue IV fluids Malnutrition - Patient is currently on on OG-tube feeding Hypertension - Continue home medications ?Cardiac arrest DVT prophylaxis Disposition - Continue ICU care. poor prognosis Discussed with family POOR PROGRNOSIS Family leaning towards, Trach and PEG. Will await final decision The high probability of a clinically significant, sudden or life threatening deterioration of the [respiratory, cardiovascular, neurologic, renal] system(s) required my full and direct attention, intervention and personal management. The aggregate critical care time was [35] minutes. This time is in addition to time spent performing reported procedures but includes the following: [x] Data Review and interpretation [x] Patient assessment and monitoring of vital signs [x] Documentation [x] Medication orders and management History Interval history: Patient seen and examined remains unresponsive on MV now on CPAP. Off sedation. NO clinical change.father at bedside Hospitalist Physical - Physical exam Narrative exam: Not in cardiopulmonary distress. The patient appeared well nourished and normally developed. Vital signs as documented. HEENT: Swelling of orbital, oral and facial soft tissue structures. Tongue swelling improving ETT is in place No scleral icterus . Neck is without jugular venous distension, thyromegaly, or carotid bruits. Lungs are clear to auscultation. Cardiac exam reveals regular rate and Rhythm. First and second heart sounds normal. No murmurs, rubs or gallops. Abdominal exam reveals normal bowel sounds, no masses, no organomegaly and no aortic enlargement. Extremities: anasacar both femoral and pedal pulses are normal. Neuro: None responsive. Spontaneous eye opening observed. - Constitutional Vitals: Temp Pulse Resp BP Pulse Ox 97.4 F L 94 H 17 119/69 100 06/07/17 08:00 06/07/17 10:14 06/07/17 10:14 06/07/17 10:14 06/07/17 10:14 General appearance: Present: other (unresponsive, on the ventilator) Results - Labs CBC & Chem 7: 06/04/17 04:05 06/07/17 07:51 Labs: Laboratory Last Values WBC 19.6 K/mm3 (4.5-11.0) H 06/04/17 04:05 RBC 3.94 M/mm3 (3.65-5.03) 06/04/17 04:05 Hgb 10.4 gm/dl (10.1-14.3) 06/04/17 04:05 Hct 32.1 % (30.3-42.9) 06/04/17 04:05 MCV 81 fl (79-97) 06/04/17 04:05 MCH 26 pg (28-32) L 06/04/17 04:05 MCHC 32 % (30-34) 06/04/17 04:05 RDW 15.6 % (13.2-15.2) H 06/04/17 04:05 Plt Count 564 K/mm3 (140-440) H 06/04/17 04:05 Lymph % (Auto) 7.3 % (13.4-35.0) L 06/04/17 04:05 [place] % (Auto) 10.8 % (0.0-7.3) H 06/04/17 04:05 Eos % (Auto) 0.1 % (0.0-4.3) 06/04/17 04:05 Baso % (Auto) 0.4 % (0.0-1.8) 06/04/17 04:05 Lymph # 1.4 K/mm3 (1.2-5.4) 06/04/17 04:05 [place] # 2.1 K/mm3 (0.0-0.8) H 06/04/17 04:05 Eos # 0.0 K/mm3 (0.0-0.4) 06/04/17 04:05 Baso # 0.1 K/mm3 (0.0-0.1) 06/04/17 04:05 Add Manual Diff Complete 06/03/17 04:14 Total Counted 100 06/03/17 04:14 Seg Neutrophils % 81.4 % (40.0-70.0) H 06/04/17 04:05 Seg Neuts % (Manual) 94.0 % (40.0-70.0) H 06/03/17 04:14 Band Neutrophils % 0 % 06/03/17 04:14 Lymphocytes % (Manual) 3.0 % (13.4-35.0) L 06/03/17 04:14 Reactive Lymphs % (Man) 0 % 06/03/17 04:14 Monocytes % (Manual) 3.0 % (0.0-7.3) 06/03/17 04:14 Eosinophils % (Manual) 0 % (0.0-4.3) 06/03/17 04:14 Basophils % (Manual) 0 % (0.0-1.8) 06/03/17 04:14 Metamyelocytes % 0 % 06/03/17 04:14 Myelocytes % 0 % 06/03/17 04:14 Promyelocytes % 0 % 06/03/17 04:14 Blast Cells % 0 % 06/03/17 04:14 Nucleated RBC % Not Reportable 06/03/17 04:14 Seg Neutrophils # 15.9 K/mm3 (1.8-7.7) H 06/04/17 04:05 Seg Neutrophils # Man 19.8 K/mm3 (1.8-7.7) H 06/03/17 04:14 Band Neutrophils # 0.0 K/mm3 06/03/17 04:14 Lymphocytes # (Manual) 0.6 K/mm3 (1.2-5.4) L 06/03/17 04:14 Abs React Lymphs (Man) 0.0 K/mm3 06/03/17 04:14 Monocytes # (Manual) 0.6 K/mm3 (0.0-0.8) 06/03/17 04:14 Eosinophils # (Manual) 0.0 K/mm3 (0.0-0.4) 06/03/17 04:14 Basophils # (Manual) 0.0 K/mm3 (0.0-0.1) 06/03/17 04:14 Metamyelocytes # 0.0 K/mm3 06/03/17 04:14 Myelocytes # 0.0 K/mm3 06/03/17 04:14 Promyelocytes # 0.0 K/mm3 06/03/17 04:14 Blast Cells # 0.0 K/mm3 06/03/17 04:14 WBC Morphology Not Reportable 06/03/17 04:14 Hypersegmented Neuts Not Reportable 06/03/17 04:14 Hyposegmented Neuts Not Reportable 06/03/17 04:14 Hypogranular Neuts Not Reportable 06/03/17 04:14 Smudge Cells Not Reportable 06/03/17 04:14 Toxic Granulation Not Reportable 06/03/17 04:14 Toxic Vacuolation Not Reportable 06/03/17 04:14 Dohle Bodies Not Reportable 06/03/17 04:14 Pelger-Huet Anomaly Not Reportable 06/03/17 04:14 Don Rods Not Reportable 06/03/17 04:14 Platelet Estimate Consistent w auto 06/03/17 04:14 Clumped Platelets Not Reportable 06/03/17 04:14 Plt Clumps, EDTA Not Reportable 06/03/17 04:14 Large Platelets Not Reportable 06/03/17 04:14 Giant Platelets Not Reportable 06/03/17 04:14 Platelet Satelliting Not Reportable 06/03/17 04:14 Plt Morphology Comment Not Reportable 06/03/17 04:14 RBC Morphology Not Reportable 06/03/17 04:14 Dimorphic RBCs Not Reportable 06/03/17 04:14 Polychromasia Not Reportable 06/03/17 04:14 Hypochromasia Not Reportable 06/03/17 04:14 Poikilocytosis Not Reportable 06/03/17 04:14 Anisocytosis Not Reportable 06/03/17 04:14 Microcytosis Not Reportable 06/03/17 04:14 Macrocytosis Not Reportable 06/03/17 04:14 Spherocytes Not Reportable 06/03/17 04:14 Pappenheimer Bodies Not Reportable 06/03/17 04:14 Sickle Cells Not Reportable 06/03/17 04:14 Target Cells Not Reportable 06/03/17 04:14 Tear Drop Cells Not Reportable 06/03/17 04:14 Ovalocytes Not Reportable 06/03/17 04:14 Helmet Cells Not Reportable 06/03/17 04:14 [place] Bodies Not Reportable 06/03/17 04:14 [place] Rings Not Reportable 06/03/17 04:14 Cecy Cells Not Reportable 06/03/17 04:14 Bite Cells Not Reportable 06/03/17 04:14 Crenated Cell Not Reportable 06/03/17 04:14 Elliptocytes Not Reportable 06/03/17 04:14 Acanthocytes (Spur) Not Reportable 06/03/17 04:14 Rouleaux Not Reportable 06/03/17 04:14 Hemoglobin C Crystals Not Reportable 06/03/17 04:14 Schistocytes Not Reportable 06/03/17 04:14 Malaria parasites Not Reportable 06/03/17 04:14 Fadi Bodies Not Reportable 06/03/17 04:14 Hem Pathologist Commnt No 06/03/17 04:14 POC ABG pH 7.470 (7.35-7.45) H 06/07/17 04:25 POC ABG pCO2 33.6 (35-45) L 06/07/17 04:25 POC ABG pO2 94 (80-105) 06/07/17 04:25 POC ABG HCO3 24.4 06/07/17 04:25 POC ABG Total CO2 25 06/07/17 04:25 POC ABG O2 Sat 98 06/07/17 04:25 POC ABG Base Excess 1 06/07/17 04:25 VBG pH 7.327 (7.320-7.420) 05/30/17 10:43 FiO2 28 % 06/07/17 04:25 Sodium 135 mmol/L (137-145) L 06/07/17 07:51 Potassium 4.1 mmol/L (3.6-5.0) 06/07/17 07:51 Chloride 102.0 mmol/L (98-107) 06/07/17 07:51 Carbon Dioxide 21 mmol/L (22-30) L 06/07/17 07:51 Anion Gap 16 mmol/L 06/07/17 07:51 BUN 50 mg/dL (7-17) H 06/07/17 07:51 Creatinine 1.8 mg/dL (0.7-1.2) H 06/07/17 07:51 Estimated GFR 39 ml/min 06/07/17 07:51 BUN/Creatinine Ratio 28 % 06/07/17 07:51 Glucose 232 mg/dL (65-100) H 06/07/17 07:51 POC Glucose 183 (70-105) H 06/07/17 05:29 Hemoglobin A1c 9.7 % (4-6) H 05/31/17 05:45 Calcium 8.0 mg/dL (8.4-10.2) L 06/07/17 07:51 Phosphorus 4.40 mg/dL (2.5-4.5) 06/07/17 07:51 Magnesium 1.70 mg/dL (1.7-2.3) 06/07/17 07:51 Total Bilirubin 0.50 mg/dL (0.1-1.2) 06/02/17 04:24 AST 23 units/L (5-40) 06/02/17 04:24 ALT 14 units/L (7-56) 06/02/17 04:24 Alkaline Phosphatase 132 units/L (35-129) H 06/02/17 04:24 Total Protein 4.1 g/dL (6.3-8.2) L 06/02/17 04:24 Albumin 1.7 g/dL (3.9-5) L 06/02/17 04:24 Albumin/Globulin Ratio 0.7 % 06/02/17 04:24 Urine Color Yellow (Yellow) 05/30/17 15:04 Urine Turbidity Clear (Clear) 05/30/17 15:04 Urine pH 7.0 (5.0-7.0) 05/30/17 15:04 Ur Specific [place] 1.021 (1.003-1.030) 05/30/17 15:04 Urine Protein >500 mg/dL (Negative) 05/30/17 15:04 Urine Glucose (UA) >=500 mg/dL (Negative) 05/30/17 15:04 Urine Ketones Tr mg/dL (Negative) 05/30/17 15:04 Urine Blood Sm (Negative) 05/30/17 15:04 Urine Nitrite Neg (Negative) 05/30/17 15:04 Urine Bilirubin Neg (Negative) 05/30/17 15:04 Urine Urobilinogen < 2.0 mg/dL (<2.0) 05/30/17 15:04 Ur Leukocyte Esterase Neg (Negative) 05/30/17 15:04 Urine WBC (Auto) 2.0 /HPF (0.0-6.0) 05/30/17 15:04 Urine RBC (Auto) 5.0 /HPF (0.0-6.0) 05/30/17 15:04 Urine Bacteria (Auto) 1+ /HPF (Negative) 05/30/17 15:04 Urine Mucus Few /HPF 05/30/17 15:04 Urine Creatinine 78.7 mg/dL (0.1-20.0) H 06/04/17 17:21 Urine Sodium 10 mmol/L 06/02/17 10:18 Urine Total Protein 197 mg/dL (5-11.8) H 06/04/17 17:21 Urine Opiates Screen Presumptive negative 05/30/17 15:04 Urine Methadone Screen Presumptive negative 05/30/17 15:04 Ur Barbiturates Screen Presumptive negative 05/30/17 15:04 Levetiracetam 21.2 mcg/mL 05/30/17 08:59 Ur Phencyclidine Scrn Presumptive negative 05/30/17 15:04 Ur Amphetamines Screen Presumptive negative 05/30/17 15:04 U Benzodiazepines Scrn Presumptive negative 05/30/17 15:04 Urine Cocaine Screen Presumptive negative 05/30/17 15:04 U Marijuana (THC) Screen Presumptive positive 05/30/17 15:04 Drugs of Abuse Note Disclamer 05/30/17 15:04
--- NOTE | 2017-06-07 13:43 | Progress Note ---
Assessment and Plan - Patient Problems (1) Dilated cardiomyopathy Current Visit: Yes Status: Acute Plan to address problem: Echocardiogram demonstrates dilated cardiomyopathy, ejection fraction 15-20%. The chronicity of the cardiomyopathy is uncertain, no records available for review. Patient's home medications do include carvedilol, valsartan and a diuretic, which may suggest the cardiomyopathy is possibly not new. At this time, will recommend medical therapy with continued afterload reduction , beta blockers and oral antiplatelet therapy. Further cardiac evaluation and management will depend on clinical course. Prognosis is guarded. (2) Acute respiratory failure Current Visit: Yes Status: Acute Qualifiers: Respiratory failure complication: hypoxia Qualified Code(s): J96.01 - Acute respiratory failure with hypoxia Plan to address problem: Patient was admitted with a reported seizure event, currently has acute respiratory failure, unresponsive on the vent. During the course in the hospital, I do not see any cardiac tachycardia or bradycardia arrhythmias on telemetry monitoring. Subjective Date of service: 06/07/17 Principal diagnosis: coma Interval history: Patient is unresponsive, on the vent. On telemetry she is in a sinus rhythm at 86, blood pressure 136 systolic. Objective Vital Signs Temp Pulse Resp BP Pulse Ox 06/07/17 13:00 97.5 F L 101 H 18 142/77 100 06/07/17 12:01 96 H 16 126/71 100 06/07/17 12:00 97.5 F L 06/07/17 11:00 97 H 17 115/75 100 06/07/17 10:14 94 H 17 119/69 100 06/07/17 10:00 93 H 17 161/82 99 06/07/17 09:58 94 H 161/82 99 06/07/17 09:08 105 H 131/71 06/07/17 09:00 91 H 15 131/71 100 06/07/17 08:00 97.4 F L 91 H 16 119/67 100 06/07/17 07:00 93 H 15 126/70 100 06/07/17 06:13 93 H 134/73 06/07/17 06:01 94 H 12 134/73 100 06/07/17 05:01 93 H 13 135/70 100 06/07/17 04:11 97 H 153/83 100 06/07/17 04:01 96 H 14 153/83 100 06/07/17 04:00 98.8 F 98 06/07/17 03:00 105 H 14 171/86 06/07/17 02:00 113 H 22 184/89 99 06/07/17 01:01 105 H 187/101 06/07/17 01:00 101 H 14 181/95 100 06/07/17 00:00 98.2 F 99 H 13 179/95 97 06/06/17 23:42 107 H 187/104 06/06/17 23:37 120 H 187/104 100 06/06/17 23:00 106 H 17 184/102 100 06/06/17 22:54 102 H 21 184/102 100 06/06/17 22:00 104 H 17 183/103 100 06/06/17 21:00 103 H 20 169/100 100 06/06/17 20:00 97.8 F 89 14 157/86 99 06/06/17 19:47 90 155/86 100 06/06/17 19:00 96 H 24 155/92 100 06/06/17 18:20 89 21 149/89 99 06/06/17 18:00 94 H 22 149/89 100 06/06/17 17:00 92 H 19 132/74 100 06/06/17 16:00 94 H 19 126/71 100 06/06/17 15:33 97.7 F 06/06/17 15:14 97 H 06/06/17 15:00 96 H 13 138/93 100 06/06/17 14:50 99 H 17 138/93 99 06/06/17 14:00 95 H 16 159/100 100 - Physical Examination General: Other (intubated on the vent.) HEENT: Positive: Other (pupils fixed) Neck: Positive: neck supple Cardiac: Positive: Reg Rate and Rhythm Lungs: Positive: Decreased Breath Sounds Neuro: Positive: Other (unresponsive, on the vent) Abdomen: Positive: Soft Skin: Positive: Clear Extremities: Absent: edema - Labs and Meds Comprehensive Metabolic Panel 06/07/17 Range/Units 07:51 Sodium 135 L (137-145) mmol/L Potassium 4.1 (3.6-5.0) mmol/L Chloride 102.0 (98-107) mmol/L Carbon Dioxide 21 L (22-30) mmol/L BUN 50 H (7-17) mg/dL Creatinine 1.8 H (0.7-1.2) mg/dL Glucose 232 H (65-100) mg/dL Calcium 8.0 L (8.4-10.2) mg/dL - Imaging and Cardiology EKG: report reviewed (sinus tachycardia)
--- NOTE | 2017-06-07 14:11 | Progress Note ---
Assessment and Plan - Patient Problems (1) Acute anoxic encephalopathy Current Visit: Yes Status: Acute (2) Acute renal failure with tubular necrosis Current Visit: Yes Status: Acute (3) Acute respiratory failure Current Visit: Yes Status: Acute Qualifiers: Respiratory failure complication: hypoxia Qualified Code(s): J96.01 - Acute respiratory failure with hypoxia (4) Dilated cardiomyopathy Current Visit: Yes Status: Acute (5) Hyperosmolar non-ketotic state in patient with type 2 diabetes mellitus Current Visit: Yes Status: Acute Subjective Principal diagnosis: coma Interval history: Patient without change. Daughter at bedside Objective Vital Signs - 12hr 06/07/17 06/07/17 06/07/17 03:00 04:00 04:01 Temperature 98.8 F Pulse Rate 105 H 96 H Respiratory 14 14 Rate Blood Pressure 171/86 153/83 O2 Sat by Pulse 98 100 Oximetry 06/07/17 06/07/17 06/07/17 04:11 05:01 06:01 Temperature Pulse Rate 97 H 93 H 94 H Respiratory 13 12 Rate Blood Pressure 153/83 135/70 134/73 O2 Sat by Pulse 100 100 100 Oximetry 06/07/17 06/07/17 06/07/17 06:13 07:00 08:00 Temperature 97.4 F L Pulse Rate 93 H 93 H 91 H Respiratory 15 16 Rate Blood Pressure 134/73 126/70 119/67 O2 Sat by Pulse 100 100 Oximetry 06/07/17 06/07/17 06/07/17 09:00 09:08 09:58 Temperature Pulse Rate 91 H 105 H 94 H Respiratory 15 Rate Blood Pressure 131/71 131/71 161/82 O2 Sat by Pulse 100 99 Oximetry 06/07/17 06/07/17 06/07/17 10:00 10:14 11:00 Temperature Pulse Rate 93 H 94 H 97 H Respiratory 17 17 17 Rate Blood Pressure 161/82 119/69 115/75 O2 Sat by Pulse 99 100 100 Oximetry 06/07/17 06/07/17 06/07/17 12:00 12:01 13:00 Temperature 97.5 F L 97.5 F L Pulse Rate 96 H 101 H Respiratory 16 18 Rate Blood Pressure 126/71 142/77 O2 Sat by Pulse 100 100 Oximetry Constitutional: other (unresponsive, critically ill on ventilator) Eyes: non-icteric, other (chemosis better) ENT: oropharynx moist, other (orally intubated) Neck: supple Effort: normal Ascultation: Bilateral: rales, rhonchi, other (coarse BS bilaterally) Cardiovascular: other (tachycardia, RR; no mrg) Gastrointestinal: normoactive bowel sounds, soft, non-tender Integumentary: normal Extremities: no cyanosis, no edema, pink and warm Neurologic: unable to assess, other (unresponsive) Psychiatric: other (not able to assess) CBC and BMP: 06/04/17 04:05 06/07/17 07:51 ABG, PT/INR, D-dimer: ABG POC ABG pH 7.470 (7.35-7.45) H 06/07/17 04:25 POC ABG pCO2 33.6 (35-45) L 06/07/17 04:25 POC ABG pO2 94 (80-105) 06/07/17 04:25 POC ABG HCO3 24.4 06/07/17 04:25 POC ABG Total CO2 25 06/07/17 04:25 POC ABG O2 Sat 98 06/07/17 04:25 Abnormal lab findings: Abnormal Labs 05/30/17 05/30/17 05/30/17 07:48 07:48 08:32 WBC 11.5 H RBC Hgb Hct MCH 27 L RDW 16.3 H Plt Count Lymph % (Auto) [place] % (Auto) [place] # Seg Neutrophils % Seg Neuts % (Manual) Lymphocytes % (Manual) Basophils % (Manual) Seg Neutrophils # Seg Neutrophils # Man Lymphocytes # (Manual) Basophils # (Manual) POC ABG pH POC ABG pCO2 POC ABG pO2 Sodium 133 L Potassium Chloride 89.9 L Carbon Dioxide BUN 27 H Creatinine 2.0 H Glucose 741 H* POC Glucose > 500 H Hemoglobin A1c Calcium Phosphorus Magnesium AST Alkaline Phosphatase Total Protein Albumin Urine Creatinine Urine Total Protein 05/30/17 05/30/17 05/30/17 08:59 08:59 16:08 WBC 14.5 H RBC Hgb Hct MCH RDW 16.0 H Plt Count Lymph % (Auto) [place] % (Auto) [place] # Seg Neutrophils % Seg Neuts % (Manual) 95.0 H Lymphocytes % (Manual) 2.0 L Basophils % (Manual) 2.0 H Seg Neutrophils # Seg Neutrophils # Man 13.8 H Lymphocytes # (Manual) 0.3 L Basophils # (Manual) 0.3 H POC ABG pH POC ABG pCO2 POC ABG pO2 Sodium 134 L 135 L Potassium 3.2 L Chloride 90.8 L 93.6 L Carbon Dioxide BUN 28 H 30 H Creatinine 2.0 H 2.1 H Glucose 742 H* 567 H* POC Glucose Hemoglobin A1c Calcium Phosphorus Magnesium AST Alkaline Phosphatase 246 H Total Protein 5.6 L Albumin 2.9 L Urine Creatinine Urine Total Protein 05/30/17 05/30/17 05/30/17 16:35 17:55 18:59 WBC RBC Hgb Hct MCH RDW Plt Count Lymph % (Auto) [place] % (Auto) [place] # Seg Neutrophils % Seg Neuts % (Manual) Lymphocytes % (Manual) Basophils % (Manual) Seg Neutrophils # Seg Neutrophils # Man Lymphocytes # (Manual) Basophils # (Manual) POC ABG pH 7.544 H POC ABG pCO2 32.0 L POC ABG pO2 155 H Sodium Potassium 3.1 L Chloride 93.9 L Carbon Dioxide BUN 30 H Creatinine 2.0 H Glucose 561 H* POC Glucose 497 H Hemoglobin A1c Calcium Phosphorus Magnesium AST Alkaline Phosphatase Total Protein Albumin Urine Creatinine Urine Total Protein 05/30/17 05/30/17 05/30/17 19:31 19:31 21:38 WBC RBC Hgb Hct MCH RDW Plt Count Lymph % (Auto) [place] % (Auto) [place] # Seg Neutrophils % Seg Neuts % (Manual) Lymphocytes % (Manual) Basophils % (Manual) Seg Neutrophils # Seg Neutrophils # Man Lymphocytes # (Manual) Basophils # (Manual) POC ABG pH POC ABG pCO2 POC ABG pO2 Sodium 135 L Potassium 2.9 L* Chloride 93.8 L 95.4 L Carbon Dioxide 20 L BUN 29 H 30 H Creatinine 2.2 H 2.3 H Glucose 478 H 364 H POC Glucose Hemoglobin A1c Calcium Phosphorus 2.20 L D Magnesium 1.40 L AST 42 H Alkaline Phosphatase 177 H Total Protein 5.4 L Albumin 2.4 L Urine Creatinine Urine Total Protein 05/30/17 05/31/17 05/31/17 23:06 02:17 05:27 WBC RBC Hgb Hct MCH RDW Plt Count Lymph % (Auto) [place] % (Auto) [place] # Seg Neutrophils % Seg Neuts % (Manual) Lymphocytes % (Manual) Basophils % (Manual) Seg Neutrophils # Seg Neutrophils # Man Lymphocytes # (Manual) Basophils # (Manual) POC ABG pH 7.489 H POC ABG pCO2 POC ABG pO2 Sodium Potassium 3.2 L 3.5 L Chloride Carbon Dioxide BUN 30 H 31 H Creatinine 2.5 H 2.4 H Glucose 288 H 246 H POC Glucose Hemoglobin A1c Calcium 8.3 L Phosphorus Magnesium AST Alkaline Phosphatase Total Protein Albumin Urine Creatinine Urine Total Protein 05/31/17 05/31/17 05/31/17 05:45 05:45 05:45 WBC RBC Hgb Hct MCH RDW Plt Count Lymph % (Auto) [place] % (Auto) [place] # Seg Neutrophils % Seg Neuts % (Manual) Lymphocytes % (Manual) Basophils % (Manual) Seg Neutrophils # Seg Neutrophils # Man Lymphocytes # (Manual) Basophils # (Manual) POC ABG pH POC ABG pCO2 POC ABG pO2 Sodium Potassium Chloride Carbon Dioxide BUN 32 H 30 H Creatinine 2.5 H 2.6 H Glucose 266 H 271 H POC Glucose Hemoglobin A1c 9.7 H Calcium 8.3 L 8.2 L Phosphorus Magnesium AST Alkaline Phosphatase 145 H Total Protein 4.7 L Albumin 1.8 L Urine Creatinine Urine Total Protein 05/31/17 05/31/17 05/31/17 08:18 09:20 12:18 WBC RBC Hgb Hct MCH RDW Plt Count Lymph % (Auto) [place] % (Auto) [place] # Seg Neutrophils % Seg Neuts % (Manual) Lymphocytes % (Manual) Basophils % (Manual) Seg Neutrophils # Seg Neutrophils # Man Lymphocytes # (Manual) Basophils # (Manual) POC ABG pH POC ABG pCO2 POC ABG pO2 Sodium Potassium Chloride Carbon Dioxide BUN Creatinine Glucose POC Glucose 300 H 254 H 170 H Hemoglobin A1c Calcium Phosphorus Magnesium AST Alkaline Phosphatase Total Protein Albumin Urine Creatinine Urine Total Protein 05/31/17 05/31/17 05/31/17 14:09 14:17 14:27 WBC RBC Hgb Hct MCH RDW Plt Count Lymph % (Auto) [place] % (Auto) [place] # Seg Neutrophils % Seg Neuts % (Manual) Lymphocytes % (Manual) Basophils % (Manual) Seg Neutrophils # Seg Neutrophils # Man Lymphocytes # (Manual) Basophils # (Manual) POC ABG pH POC ABG pCO2 POC ABG pO2 Sodium Potassium 3.4 L Chloride 107.1 H Carbon Dioxide BUN 30 H Creatinine 2.6 H Glucose 38 L* POC Glucose < 40 L 189 H Hemoglobin A1c Calcium 7.6 L Phosphorus Magnesium AST Alkaline Phosphatase Total Protein Albumin Urine Creatinine Urine Total Protein 05/31/17 05/31/17 05/31/17 15:01 16:01 17:19 WBC RBC Hgb Hct MCH RDW Plt Count Lymph % (Auto) [place] % (Auto) [place] # Seg Neutrophils % Seg Neuts % (Manual) Lymphocytes % (Manual) Basophils % (Manual) Seg Neutrophils # Seg Neutrophils # Man Lymphocytes # (Manual) Basophils # (Manual) POC ABG pH POC ABG pCO2 POC ABG pO2 Sodium Potassium Chloride Carbon Dioxide BUN Creatinine Glucose POC Glucose 130 H 165 H 131 H Hemoglobin A1c Calcium Phosphorus Magnesium AST Alkaline Phosphatase Total Protein Albumin Urine Creatinine Urine Total Protein 05/31/17 05/31/17 05/31/17 18:46 19:54 20:36 WBC RBC Hgb Hct MCH RDW Plt Count Lymph % (Auto) [place] % (Auto) [place] # Seg Neutrophils % Seg Neuts % (Manual) Lymphocytes % (Manual) Basophils % (Manual) Seg Neutrophils # Seg Neutrophils # Man Lymphocytes # (Manual) Basophils # (Manual) POC ABG pH POC ABG pCO2 POC ABG pO2 Sodium Potassium Chloride Carbon Dioxide BUN 29 H Creatinine 2.4 H Glucose 124 H POC Glucose 128 H 157 H Hemoglobin A1c Calcium 7.9 L Phosphorus Magnesium AST Alkaline Phosphatase Total Protein Albumin Urine Creatinine Urine Total Protein 05/31/17 06/01/17 06/01/17 21:41 03:22 04:06 WBC RBC Hgb Hct MCH RDW Plt Count Lymph % (Auto) [place] % (Auto) [place] # Seg Neutrophils % Seg Neuts % (Manual) Lymphocytes % (Manual) Basophils % (Manual) Seg Neutrophils # Seg Neutrophils # Man Lymphocytes # (Manual) Basophils # (Manual) POC ABG pH POC ABG pCO2 POC ABG pO2 Sodium Potassium Chloride Carbon Dioxide 19 L BUN 29 H Creatinine 2.6 H Glucose 205 H POC Glucose 158 H 251 H Hemoglobin A1c Calcium 7.8 L Phosphorus Magnesium AST Alkaline Phosphatase Total Protein Albumin Urine Creatinine Urine Total Protein 06/01/17 06/01/17 06/01/17 04:30 09:15 09:59 WBC 19.7 H RBC Hgb 10.0 L Hct MCH 27 L RDW 17.1 H Plt Count Lymph % (Auto) [place] % (Auto) [place] # Seg Neutrophils % Seg Neuts % (Manual) Lymphocytes % (Manual) Basophils % (Manual) Seg Neutrophils # Seg Neutrophils # Man Lymphocytes # (Manual) Basophils # (Manual) POC ABG pH 7.464 H POC ABG pCO2 31.3 L POC ABG pO2 Sodium Potassium Chloride Carbon Dioxide BUN Creatinine Glucose POC Glucose 330 H Hemoglobin A1c Calcium Phosphorus Magnesium AST Alkaline Phosphatase Total Protein Albumin Urine Creatinine Urine Total Protein 06/01/17 06/01/17 06/01/17 11:36 12:25 13:43 WBC RBC Hgb Hct MCH RDW Plt Count Lymph % (Auto) [place] % (Auto) [place] # Seg Neutrophils % Seg Neuts % (Manual) Lymphocytes % (Manual) Basophils % (Manual) Seg Neutrophils # Seg Neutrophils # Man Lymphocytes # (Manual) Basophils # (Manual) POC ABG pH POC ABG pCO2 POC ABG pO2 Sodium Potassium Chloride Carbon Dioxide BUN Creatinine Glucose POC Glucose 431 H 434 H 445 H Hemoglobin A1c Calcium Phosphorus Magnesium AST Alkaline Phosphatase Total Protein Albumin Urine Creatinine Urine Total Protein 06/01/17 06/01/17 06/01/17 14:26 15:46 16:03 WBC RBC Hgb Hct MCH RDW Plt Count Lymph % (Auto) [place] % (Auto) [place] # Seg Neutrophils % Seg Neuts % (Manual) Lymphocytes % (Manual) Basophils % (Manual) Seg Neutrophils # Seg Neutrophils # Man Lymphocytes # (Manual) Basophils # (Manual) POC ABG pH POC ABG pCO2 POC ABG pO2 Sodium Potassium Chloride Carbon Dioxide BUN Creatinine Glucose POC Glucose 310 H 292 H 244 H Hemoglobin A1c Calcium Phosphorus Magnesium AST Alkaline Phosphatase Total Protein Albumin Urine Creatinine Urine Total Protein 06/01/17 06/01/17 06/01/17 16:59 17:49 19:05 WBC RBC Hgb Hct MCH RDW Plt Count Lymph % (Auto) [place] % (Auto) [place] # Seg Neutrophils % Seg Neuts % (Manual) Lymphocytes % (Manual) Basophils % (Manual) Seg Neutrophils # Seg Neutrophils # Man Lymphocytes # (Manual) Basophils # (Manual) POC ABG pH POC ABG pCO2 POC ABG pO2 Sodium Potassium Chloride Carbon Dioxide BUN Creatinine Glucose POC Glucose 260 H 203 H 156 H Hemoglobin A1c Calcium Phosphorus Magnesium AST Alkaline Phosphatase Total Protein Albumin Urine Creatinine Urine Total Protein 06/02/17 06/02/17 06/02/17 00:09 01:06 02:31 WBC RBC Hgb Hct MCH RDW Plt Count Lymph % (Auto) [place] % (Auto) [place] # Seg Neutrophils % Seg Neuts % (Manual) Lymphocytes % (Manual) Basophils % (Manual) Seg Neutrophils # Seg Neutrophils # Man Lymphocytes # (Manual) Basophils # (Manual) POC ABG pH POC ABG pCO2 POC ABG pO2 Sodium Potassium Chloride Carbon Dioxide BUN Creatinine Glucose POC Glucose 137 H 146 H 182 H Hemoglobin A1c Calcium Phosphorus Magnesium AST Alkaline Phosphatase Total Protein Albumin Urine Creatinine Urine Total Protein 06/02/17 06/02/17 06/02/17 04:03 04:24 04:24 WBC 21.0 H RBC 3.62 L Hgb Hct 29.6 L MCH RDW 16.5 H Plt Count Lymph % (Auto) [place] % (Auto) [place] # Seg Neutrophils % Seg Neuts % (Manual) 98.0 H Lymphocytes % (Manual) 1.0 L Basophils % (Manual) Seg Neutrophils # Seg Neutrophils # Man 20.6 H Lymphocytes # (Manual) 0.2 L Basophils # (Manual) POC ABG pH POC ABG pCO2 POC ABG pO2 Sodium Potassium Chloride Carbon Dioxide 20 L BUN 36 H Creatinine 2.8 H Glucose 137 H POC Glucose 150 H Hemoglobin A1c Calcium 7.5 L Phosphorus 4.60 H Magnesium 1.50 L AST Alkaline Phosphatase 132 H Total Protein 4.1 L Albumin 1.7 L Urine Creatinine Urine Total Protein 06/02/17 06/02/17 06/02/17 05:01 05:14 06:20 WBC RBC Hgb Hct MCH RDW Plt Count Lymph % (Auto) [place] % (Auto) [place] # Seg Neutrophils % Seg Neuts % (Manual) Lymphocytes % (Manual) Basophils % (Manual) Seg Neutrophils # Seg Neutrophils # Man Lymphocytes # (Manual) Basophils # (Manual) POC ABG pH 7.517 H POC ABG pCO2 28.4 L POC ABG pO2 67 L Sodium Potassium Chloride Carbon Dioxide BUN Creatinine Glucose POC Glucose 137 H 163 H Hemoglobin A1c Calcium Phosphorus Magnesium AST Alkaline Phosphatase Total Protein Albumin Urine Creatinine Urine Total Protein 06/02/17 06/02/17 06/02/17 07:43 09:40 10:18 WBC RBC Hgb Hct MCH RDW Plt Count Lymph % (Auto) [place] % (Auto) [place] # Seg Neutrophils % Seg Neuts % (Manual) Lymphocytes % (Manual) Basophils % (Manual) Seg Neutrophils # Seg Neutrophils # Man Lymphocytes # (Manual) Basophils # (Manual) POC ABG pH POC ABG pCO2 POC ABG pO2 Sodium Potassium Chloride Carbon Dioxide BUN Creatinine Glucose POC Glucose 135 H 196 H Hemoglobin A1c Calcium Phosphorus Magnesium AST Alkaline Phosphatase Total Protein Albumin Urine Creatinine Urine Total Protein < 4 L 06/02/17 06/02/17 06/02/17 10:33 11:55 17:39 WBC RBC Hgb Hct MCH RDW Plt Count Lymph % (Auto) [place] % (Auto) [place] # Seg Neutrophils % Seg Neuts % (Manual) Lymphocytes % (Manual) Basophils % (Manual) Seg Neutrophils # Seg Neutrophils # Man Lymphocytes # (Manual) Basophils # (Manual) POC ABG pH POC ABG pCO2 POC ABG pO2 Sodium Potassium Chloride Carbon Dioxide BUN Creatinine Glucose POC Glucose 188 H 110 H 150 H Hemoglobin A1c Calcium Phosphorus Magnesium AST Alkaline Phosphatase Total Protein Albumin Urine Creatinine Urine Total Protein 06/02/17 06/02/17 06/03/17 18:12 21:32 02:02 WBC RBC Hgb Hct MCH RDW Plt Count Lymph % (Auto) [place] % (Auto) [place] # Seg Neutrophils % Seg Neuts % (Manual) Lymphocytes % (Manual) Basophils % (Manual) Seg Neutrophils # Seg Neutrophils # Man Lymphocytes # (Manual) Basophils # (Manual) POC ABG pH POC ABG pCO2 POC ABG pO2 Sodium Potassium Chloride Carbon Dioxide BUN Creatinine Glucose POC Glucose 131 H 143 H 191 H Hemoglobin A1c Calcium Phosphorus Magnesium AST Alkaline Phosphatase Total Protein Albumin Urine Creatinine Urine Total Protein 06/03/17 06/03/17 06/03/17 04:14 04:14 05:06 WBC 21.1 H RBC Hgb Hct MCH 27 L RDW 15.9 H Plt Count 447 H Lymph % (Auto) [place] % (Auto) [place] # Seg Neutrophils % Seg Neuts % (Manual) 94.0 H Lymphocytes % (Manual) 3.0 L Basophils % (Manual) Seg Neutrophils # Seg Neutrophils # Man 19.8 H Lymphocytes # (Manual) 0.6 L Basophils # (Manual) POC ABG pH POC ABG pCO2 28.6 L POC ABG pO2 112 H Sodium Potassium Chloride Carbon Dioxide 14 L BUN 45 H Creatinine 2.8 H Glucose 211 H POC Glucose Hemoglobin A1c Calcium 8.0 L Phosphorus Magnesium AST Alkaline Phosphatase Total Protein Albumin Urine Creatinine Urine Total Protein 06/03/17 06/03/17 06/03/17 06:00 10:20 13:43 WBC RBC Hgb Hct MCH RDW Plt Count Lymph % (Auto) [place] % (Auto) [place] # Seg Neutrophils % Seg Neuts % (Manual) Lymphocytes % (Manual) Basophils % (Manual) Seg Neutrophils # Seg Neutrophils # Man Lymphocytes # (Manual) Basophils # (Manual) POC ABG pH POC ABG pCO2 POC ABG pO2 Sodium Potassium Chloride Carbon Dioxide BUN Creatinine Glucose POC Glucose 224 H 226 H 296 H Hemoglobin A1c Calcium Phosphorus Magnesium AST Alkaline Phosphatase Total Protein Albumin Urine Creatinine Urine Total Protein 06/03/17 06/03/17 06/03/17 17:38 19:23 20:45 WBC RBC Hgb Hct MCH RDW Plt Count Lymph % (Auto) [place] % (Auto) [place] # Seg Neutrophils % Seg Neuts % (Manual) Lymphocytes % (Manual) Basophils % (Manual) Seg Neutrophils # Seg Neutrophils # Man Lymphocytes # (Manual) Basophils # (Manual) POC ABG pH POC ABG pCO2 POC ABG pO2 Sodium Potassium Chloride Carbon Dioxide BUN Creatinine Glucose POC Glucose 295 H 275 H 338 H Hemoglobin A1c Calcium Phosphorus Magnesium AST Alkaline Phosphatase Total Protein Albumin Urine Creatinine Urine Total Protein 06/03/17 06/03/17 06/04/17 21:50 23:08 00:16 WBC RBC Hgb Hct MCH RDW Plt Count Lymph % (Auto) [place] % (Auto) [place] # Seg Neutrophils % Seg Neuts % (Manual) Lymphocytes % (Manual) Basophils % (Manual) Seg Neutrophils # Seg Neutrophils # Man Lymphocytes # (Manual) Basophils # (Manual) POC ABG pH POC ABG pCO2 POC ABG pO2 Sodium Potassium Chloride Carbon Dioxide BUN Creatinine Glucose POC Glucose 223 H 214 H 226 H Hemoglobin A1c Calcium Phosphorus Magnesium AST Alkaline Phosphatase Total Protein Albumin Urine Creatinine Urine Total Protein 06/04/17 06/04/17 06/04/17 01:05 02:07 03:27 WBC RBC Hgb Hct MCH RDW Plt Count Lymph % (Auto) [place] % (Auto) [place] # Seg Neutrophils % Seg Neuts % (Manual) Lymphocytes % (Manual) Basophils % (Manual) Seg Neutrophils # Seg Neutrophils # Man Lymphocytes # (Manual) Basophils # (Manual) POC ABG pH POC ABG pCO2 POC ABG pO2 Sodium Potassium Chloride Carbon Dioxide BUN Creatinine Glucose POC Glucose 217 H 229 H 185 H Hemoglobin A1c Calcium Phosphorus Magnesium AST Alkaline Phosphatase Total Protein Albumin Urine Creatinine Urine Total Protein 06/04/17 06/04/17 06/04/17 03:52 04:05 04:05 WBC 19.6 H RBC Hgb Hct MCH 26 L RDW 15.6 H Plt Count 564 H Lymph % (Auto) 7.3 L [place] % (Auto) 10.8 H [place] # 2.1 H Seg Neutrophils % 81.4 H Seg Neuts % (Manual) Lymphocytes % (Manual) Basophils % (Manual) Seg Neutrophils # 15.9 H Seg Neutrophils # Man Lymphocytes # (Manual) Basophils # (Manual) POC ABG pH POC ABG pCO2 POC ABG pO2 Sodium Potassium Chloride Carbon Dioxide 17 L BUN 52 H Creatinine 2.5 H Glucose 163 H POC Glucose 181 H Hemoglobin A1c Calcium 7.9 L Phosphorus Magnesium AST Alkaline Phosphatase Total Protein Albumin Urine Creatinine Urine Total Protein 06/04/17 06/04/17 06/04/17 04:56 05:39 06:12 WBC RBC Hgb Hct MCH RDW Plt Count Lymph % (Auto) [place] % (Auto) [place] # Seg Neutrophils % Seg Neuts % (Manual) Lymphocytes % (Manual) Basophils % (Manual) Seg Neutrophils # Seg Neutrophils # Man Lymphocytes # (Manual) Basophils # (Manual) POC ABG pH 7.486 H POC ABG pCO2 26.8 L POC ABG pO2 Sodium Potassium Chloride Carbon Dioxide BUN Creatinine Glucose POC Glucose 208 H 225 H Hemoglobin A1c Calcium Phosphorus Magnesium AST Alkaline Phosphatase Total Protein Albumin Urine Creatinine Urine Total Protein 06/04/17 06/04/17 06/04/17 07:07 08:06 09:15 WBC RBC Hgb Hct MCH RDW Plt Count Lymph % (Auto) [place] % (Auto) [place] # Seg Neutrophils % Seg Neuts % (Manual) Lymphocytes % (Manual) Basophils % (Manual) Seg Neutrophils # Seg Neutrophils # Man Lymphocytes # (Manual) Basophils # (Manual) POC ABG pH POC ABG pCO2 POC ABG pO2 Sodium Potassium Chloride Carbon Dioxide BUN Creatinine Glucose POC Glucose 201 H 171 H 178 H Hemoglobin A1c Calcium Phosphorus Magnesium AST Alkaline Phosphatase Total Protein Albumin Urine Creatinine Urine Total Protein 06/04/17 06/04/17 06/04/17 10:16 12:22 17:21 WBC RBC Hgb Hct MCH RDW Plt Count Lymph % (Auto) [place] % (Auto) [place] # Seg Neutrophils % Seg Neuts % (Manual) Lymphocytes % (Manual) Basophils % (Manual) Seg Neutrophils # Seg Neutrophils # Man Lymphocytes # (Manual) Basophils # (Manual) POC ABG pH POC ABG pCO2 POC ABG pO2 Sodium Potassium Chloride Carbon Dioxide BUN Creatinine Glucose POC Glucose 191 H 188 H Hemoglobin A1c Calcium Phosphorus Magnesium AST Alkaline Phosphatase Total Protein Albumin Urine Creatinine 78.7 H Urine Total Protein 197 H 06/04/17 06/04/17 06/05/17 17:56 22:10 00:00 WBC RBC Hgb Hct MCH RDW Plt Count Lymph % (Auto) [place] % (Auto) [place] # Seg Neutrophils % Seg Neuts % (Manual) Lymphocytes % (Manual) Basophils % (Manual) Seg Neutrophils # Seg Neutrophils # Man Lymphocytes # (Manual) Basophils # (Manual) POC ABG pH POC ABG pCO2 POC ABG pO2 Sodium Potassium Chloride Carbon Dioxide 17 L BUN 55 H Creatinine 2.3 H Glucose 300 H POC Glucose 266 H 337 H Hemoglobin A1c Calcium 7.4 L Phosphorus Magnesium AST Alkaline Phosphatase Total Protein Albumin Urine Creatinine Urine Total Protein 06/05/17 06/05/17 06/05/17 03:26 04:11 05:13 WBC RBC Hgb Hct MCH RDW Plt Count Lymph % (Auto) [place] % (Auto) [place] # Seg Neutrophils % Seg Neuts % (Manual) Lymphocytes % (Manual) Basophils % (Manual) Seg Neutrophils # Seg Neutrophils # Man Lymphocytes # (Manual) Basophils # (Manual) POC ABG pH 7.586 H POC ABG pCO2 22.6 L POC ABG pO2 179 H Sodium Potassium Chloride Carbon Dioxide 19 L BUN 55 H Creatinine 2.2 H Glucose 226 H POC Glucose 220 H Hemoglobin A1c Calcium 7.7 L Phosphorus Magnesium AST Alkaline Phosphatase Total Protein Albumin Urine Creatinine Urine Total Protein 06/05/17 06/05/17 06/05/17 12:42 18:24 21:23 WBC RBC Hgb Hct MCH RDW Plt Count Lymph % (Auto) [place] % (Auto) [place] # Seg Neutrophils % Seg Neuts % (Manual) Lymphocytes % (Manual) Basophils % (Manual) Seg Neutrophils # Seg Neutrophils # Man Lymphocytes # (Manual) Basophils # (Manual) POC ABG pH POC ABG pCO2 POC ABG pO2 Sodium Potassium Chloride Carbon Dioxide BUN Creatinine Glucose POC Glucose 168 H 121 H 166 H Hemoglobin A1c Calcium Phosphorus Magnesium AST Alkaline Phosphatase Total Protein Albumin Urine Creatinine Urine Total Protein 06/06/17 06/06/17 06/06/17 00:14 04:11 06:19 WBC RBC Hgb Hct MCH RDW Plt Count Lymph % (Auto) [place] % (Auto) [place] # Seg Neutrophils % Seg Neuts % (Manual) Lymphocytes % (Manual) Basophils % (Manual) Seg Neutrophils # Seg Neutrophils # Man Lymphocytes # (Manual) Basophils # (Manual) POC ABG pH POC ABG pCO2 33.0 L POC ABG pO2 Sodium Potassium Chloride Carbon Dioxide BUN Creatinine Glucose POC Glucose 179 H 180 H Hemoglobin A1c Calcium Phosphorus Magnesium AST Alkaline Phosphatase Total Protein Albumin Urine Creatinine Urine Total Protein 06/06/17 06/06/17 06/06/17 12:19 18:38 20:01 WBC RBC Hgb Hct MCH RDW Plt Count Lymph % (Auto) [place] % (Auto) [place] # Seg Neutrophils % Seg Neuts % (Manual) Lymphocytes % (Manual) Basophils % (Manual) Seg Neutrophils # Seg Neutrophils # Man Lymphocytes # (Manual) Basophils # (Manual) POC ABG pH POC ABG pCO2 POC ABG pO2 Sodium Potassium Chloride Carbon Dioxide BUN Creatinine Glucose POC Glucose 123 H 56 L 65 L Hemoglobin A1c Calcium Phosphorus Magnesium AST Alkaline Phosphatase Total Protein Albumin Urine Creatinine Urine Total Protein 06/06/17 06/07/17 06/07/17 23:51 04:25 05:29 WBC RBC Hgb Hct MCH RDW Plt Count Lymph % (Auto) [place] % (Auto) [place] # Seg Neutrophils % Seg Neuts % (Manual) Lymphocytes % (Manual) Basophils % (Manual) Seg Neutrophils # Seg Neutrophils # Man Lymphocytes # (Manual) Basophils # (Manual) POC ABG pH 7.470 H POC ABG pCO2 33.6 L POC ABG pO2 Sodium Potassium Chloride Carbon Dioxide BUN Creatinine Glucose POC Glucose 118 H 183 H Hemoglobin A1c Calcium Phosphorus Magnesium AST Alkaline Phosphatase Total Protein Albumin Urine Creatinine Urine Total Protein 06/07/17 06/07/17 07:51 12:00 WBC RBC Hgb Hct MCH RDW Plt Count Lymph % (Auto) [place] % (Auto) [place] # Seg Neutrophils % Seg Neuts % (Manual) Lymphocytes % (Manual) Basophils % (Manual) Seg Neutrophils # Seg Neutrophils # Man Lymphocytes # (Manual) Basophils # (Manual) POC ABG pH POC ABG pCO2 POC ABG pO2 Sodium 135 L Potassium Chloride Carbon Dioxide 21 L BUN 50 H Creatinine 1.8 H Glucose 232 H POC Glucose 361 H Hemoglobin A1c Calcium 8.0 L Phosphorus Magnesium AST Alkaline Phosphatase Total Protein Albumin Urine Creatinine Urine Total Protein
--- NOTE | 2017-06-07 15:49 | Progress Note ---
Assessment and Plan - Patient Problems (1) Acute renal failure with tubular necrosis Current Visit: Yes Status: Acute Plan to address problem: Non-Oliguric Acute renal failure/acute tubular necrosis. Kidney function was improving. Follow kidney function and electrolytes on increased dose of diuretics. (2) Acute respiratory failure Current Visit: Yes Status: Acute Qualifiers: Respiratory failure complication: hypoxia Qualified Code(s): J96.01 - Acute respiratory failure with hypoxia Plan to address problem: Ventilator management by primary attending (3) Acute systolic heart failure Current Visit: Yes Status: Acute Plan to address problem: Continue diuretics and beta jas. We'll add spironolactone and increase the dose of Lasix and monitor fluid balance. ARAM inhibitor allergy noted (4) Hyperosmolar non-ketotic state in patient with type 2 diabetes mellitus Current Visit: Yes Status: Acute Plan to address problem: Blood sugar management by primary attending (5) Hypertension Current Visit: Yes Status: Acute Qualifiers: Hypertension type: essential hypertension Qualified Code(s): I10 - Essential (primary) hypertension Plan to address problem: Blood pressure has improved. Follow blood pressure on current medications Subjective Date of service: 06/07/17 Principal diagnosis: coma Interval history: Patient seen lying in bed in the intensive care unit. Intubated on ventilator. Not communicating. Nurse at the bedside reports poor urine output despite giving Lasix earlier. Not following commands.\ Vent settings CMV 450/10/28% PEEP of 5 Objective - Exam Narrative Exam: Young -[place] female lying in bed intubated on ventilator HEENT: NCAT, endotracheal tube intact, orogastric tube intact Neck: Supple, no venous distention CVS: S1S2 RRR with no murmur, rub or gallop Chest: Lungs breath sounds with Low pitched rhonchi bilaterally Abdomen: Protuberant, soft, nontender, no organomegaly, bowel sounds are present Extremities: 2+ bilateral edema both upper and lower extremities Neuro: Eyes open, not following commands - Vital Signs Vital signs: Vital Signs - 12hr 06/07/17 06/07/17 06/07/17 04:00 04:01 04:11 Temperature 98.8 F Pulse Rate 96 H 97 H Respiratory 14 Rate Blood Pressure 153/83 153/83 O2 Sat by Pulse 98 100 100 Oximetry 06/07/17 06/07/17 06/07/17 05:01 06:01 06:13 Temperature Pulse Rate 93 H 94 H 93 H Respiratory 13 12 Rate Blood Pressure 135/70 134/73 134/73 O2 Sat by Pulse 100 100 Oximetry 06/07/17 06/07/17 06/07/17 07:00 08:00 09:00 Temperature 97.4 F L Pulse Rate 93 H 91 H 91 H Respiratory 15 16 15 Rate Blood Pressure 126/70 119/67 131/71 O2 Sat by Pulse 100 100 100 Oximetry 06/07/17 06/07/17 06/07/17 09:08 09:58 10:00 Temperature Pulse Rate 105 H 94 H 93 H Respiratory 17 Rate Blood Pressure 131/71 161/82 161/82 O2 Sat by Pulse 99 99 Oximetry 06/07/17 06/07/17 06/07/17 10:14 11:00 12:00 Temperature 97.5 F L Pulse Rate 94 H 97 H Respiratory 17 17 Rate Blood Pressure 119/69 115/75 O2 Sat by Pulse 100 100 Oximetry 06/07/17 06/07/17 06/07/17 12:01 13:00 14:00 Temperature 97.5 F L Pulse Rate 96 H 95 H 94 H Respiratory 16 17 15 Rate Blood Pressure 126/71 142/77 141/77 O2 Sat by Pulse 100 100 99 Oximetry 06/07/17 06/07/17 15:01 15:16 Temperature Pulse Rate 102 H 97 H Respiratory 19 Rate Blood Pressure 145/83 145/83 O2 Sat by Pulse 100 Oximetry - Lab 06/04/17 04:05 06/07/17 07:51 Most recent lab results Calcium 8.0 mg/dL (8.4-10.2) L 06/07/17 07:51 Phosphorus 4.40 mg/dL (2.5-4.5) 06/07/17 07:51 Magnesium 1.70 mg/dL (1.7-2.3) 06/07/17 07:51 Urine Creatinine 78.7 mg/dL (0.1-20.0) H 06/04/17 17:21 Urine Sodium 10 mmol/L 06/02/17 10:18 Urine Total Protein 197 mg/dL (5-11.8) H 06/04/17 17:21
[2017-06-07] MEDS: ALDACTONE PO SCH (18:14)
[2017-06-08] MEDS: HumaLOG SUB-Q SCH ×5 (00:20→23:33)
--- NOTE | 2017-06-08 04:53 | XRay Report ---
FINAL REPORT PROCEDURE: XR CHEST 1V AP TECHNIQUE: Chest radiograph anteroposterior view. CPT 41656 HISTORY: Resp failure COMPARISON: No prior studies are available for comparison. FINDINGS: Heart: The heart is mildly enlarged. Mediastinum/Vessels: Normal. Lungs/Pleural space: There are no acute infiltrates, effusions or pneumothoraces.. Bony thorax: No acute osseous abnormality. Life support devices: ET tube is in the mid trachea. NG tube is in the stomach.. IMPRESSION: The heart is mildly enlarged. There are no acute infiltrates, effusions or pneumothoraces.. ET tube is in the mid trachea. NG tube is in the stomach.. .
[2017-06-08] MEDS: APRESOLINE PO SCH ×3 (05:38→22:56)
[2017-06-08] MEDS: ISORDIL TITRADOSE PO SCH ×3 (05:38→22:56)
[2017-06-08] MEDS: NAMENDA PO SCH ×2 (05:38→18:44)
[2017-06-08] MEDS: LASIX IV SCH ×2 (05:38→18:43)
--- NOTE | 2017-06-08 09:33 | Progress Note ---
Assessment and Plan Assessment and plan: 36-year-old -[place] female was admitted to the floor for seizure episode, altered mental status, acute hypoxic respiratory failure, patient was intubated in the emergency department patient had PEA and resuscitated successfully. 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 -Improving. Creationine 1.8 yesterday Nephrology following Malnutrition - Patient is currently on on OG-tube feeding Hypertension DVT prophylaxis Disposition - Continue ICU care. poor prognosis POOR PROGNOSIS History Interval history: Intubated, Unresponsive Hospitalist Physical - Physical exam Narrative exam: Gen appearance: Intubated, lying in bed, obese HEENT: facial edema, swollen tongue,intubated orally Neck:supple, no JVD Lungs: Coarse breath sounds bilaterally, no wheeze Heart: S1 and S2 regular, no murmurs, rubs or gallop Abdomen: soft, non tender, non distended, normal bowel sounds Ext: Edema both upper and lower extremities, no cyanosis Neuro: Intubated, unresponsive - Constitutional Vitals: Temp Pulse Resp BP Pulse Ox 97.6 F 109 H 17 152/80 100 06/08/17 08:59 06/08/17 08:09 06/08/17 06:00 06/08/17 08:09 06/08/17 08:09 General appearance: Present: other (unresponsive, on the ventilator) Results - Labs CBC & Chem 7: 06/08/17 14:20 06/08/17 14:20 Labs: Laboratory Last Values WBC 19.6 K/mm3 (4.5-11.0) H 06/04/17 04:05 RBC 3.94 M/mm3 (3.65-5.03) 06/04/17 04:05 Hgb 10.4 gm/dl (10.1-14.3) 06/04/17 04:05 Hct 32.1 % (30.3-42.9) 06/04/17 04:05 MCV 81 fl (79-97) 06/04/17 04:05 MCH 26 pg (28-32) L 06/04/17 04:05 MCHC 32 % (30-34) 06/04/17 04:05 RDW 15.6 % (13.2-15.2) H 06/04/17 04:05 Plt Count 564 K/mm3 (140-440) H 06/04/17 04:05 Lymph % (Auto) 7.3 % (13.4-35.0) L 06/04/17 04:05 [place] % (Auto) 10.8 % (0.0-7.3) H 06/04/17 04:05 Eos % (Auto) 0.1 % (0.0-4.3) 06/04/17 04:05 Baso % (Auto) 0.4 % (0.0-1.8) 06/04/17 04:05 Lymph # 1.4 K/mm3 (1.2-5.4) 06/04/17 04:05 [place] # 2.1 K/mm3 (0.0-0.8) H 06/04/17 04:05 Eos # 0.0 K/mm3 (0.0-0.4) 06/04/17 04:05 Baso # 0.1 K/mm3 (0.0-0.1) 06/04/17 04:05 Add Manual Diff Complete 06/03/17 04:14 Total Counted 100 06/03/17 04:14 Seg Neutrophils % 81.4 % (40.0-70.0) H 06/04/17 04:05 Seg Neuts % (Manual) 94.0 % (40.0-70.0) H 06/03/17 04:14 Band Neutrophils % 0 % 06/03/17 04:14 Lymphocytes % (Manual) 3.0 % (13.4-35.0) L 06/03/17 04:14 Reactive Lymphs % (Man) 0 % 06/03/17 04:14 Monocytes % (Manual) 3.0 % (0.0-7.3) 06/03/17 04:14 Eosinophils % (Manual) 0 % (0.0-4.3) 06/03/17 04:14 Basophils % (Manual) 0 % (0.0-1.8) 06/03/17 04:14 Metamyelocytes % 0 % 06/03/17 04:14 Myelocytes % 0 % 06/03/17 04:14 Promyelocytes % 0 % 06/03/17 04:14 Blast Cells % 0 % 06/03/17 04:14 Nucleated RBC % Not Reportable 06/03/17 04:14 Seg Neutrophils # 15.9 K/mm3 (1.8-7.7) H 06/04/17 04:05 Seg Neutrophils # Man 19.8 K/mm3 (1.8-7.7) H 06/03/17 04:14 Band Neutrophils # 0.0 K/mm3 06/03/17 04:14 Lymphocytes # (Manual) 0.6 K/mm3 (1.2-5.4) L 06/03/17 04:14 Abs React Lymphs (Man) 0.0 K/mm3 06/03/17 04:14 Monocytes # (Manual) 0.6 K/mm3 (0.0-0.8) 06/03/17 04:14 Eosinophils # (Manual) 0.0 K/mm3 (0.0-0.4) 06/03/17 04:14 Basophils # (Manual) 0.0 K/mm3 (0.0-0.1) 06/03/17 04:14 Metamyelocytes # 0.0 K/mm3 06/03/17 04:14 Myelocytes # 0.0 K/mm3 06/03/17 04:14 Promyelocytes # 0.0 K/mm3 06/03/17 04:14 Blast Cells # 0.0 K/mm3 06/03/17 04:14 WBC Morphology Not Reportable 06/03/17 04:14 Hypersegmented Neuts Not Reportable 06/03/17 04:14 Hyposegmented Neuts Not Reportable 06/03/17 04:14 Hypogranular Neuts Not Reportable 06/03/17 04:14 Smudge Cells Not Reportable 06/03/17 04:14 Toxic Granulation Not Reportable 06/03/17 04:14 Toxic Vacuolation Not Reportable 06/03/17 04:14 Dohle Bodies Not Reportable 06/03/17 04:14 Pelger-Huet Anomaly Not Reportable 06/03/17 04:14 Don Rods Not Reportable 06/03/17 04:14 Platelet Estimate Consistent w auto 06/03/17 04:14 Clumped Platelets Not Reportable 06/03/17 04:14 Plt Clumps, EDTA Not Reportable 06/03/17 04:14 Large Platelets Not Reportable 06/03/17 04:14 Giant Platelets Not Reportable 06/03/17 04:14 Platelet Satelliting Not Reportable 06/03/17 04:14 Plt Morphology Comment Not Reportable 06/03/17 04:14 RBC Morphology Not Reportable 06/03/17 04:14 Dimorphic RBCs Not Reportable 06/03/17 04:14 Polychromasia Not Reportable 06/03/17 04:14 Hypochromasia Not Reportable 06/03/17 04:14 Poikilocytosis Not Reportable 06/03/17 04:14 Anisocytosis Not Reportable 06/03/17 04:14 Microcytosis Not Reportable 06/03/17 04:14 Macrocytosis Not Reportable 06/03/17 04:14 Spherocytes Not Reportable 06/03/17 04:14 Pappenheimer Bodies Not Reportable 06/03/17 04:14 Sickle Cells Not Reportable 06/03/17 04:14 Target Cells Not Reportable 06/03/17 04:14 Tear Drop Cells Not Reportable 06/03/17 04:14 Ovalocytes Not Reportable 06/03/17 04:14 Helmet Cells Not Reportable 06/03/17 04:14 Wade-Mercer Bodies Not Reportable 06/03/17 04:14 Larose Rings Not Reportable 06/03/17 04:14 Cecy Cells Not Reportable 06/03/17 04:14 Bite Cells Not Reportable 06/03/17 04:14 Crenated Cell Not Reportable 06/03/17 04:14 Elliptocytes Not Reportable 06/03/17 04:14 Acanthocytes (Spur) Not Reportable 06/03/17 04:14 Rouleaux Not Reportable 06/03/17 04:14 Hemoglobin C Crystals Not Reportable 06/03/17 04:14 Schistocytes Not Reportable 06/03/17 04:14 Malaria parasites Not Reportable 06/03/17 04:14 Fadi Bodies Not Reportable 06/03/17 04:14 Hem Pathologist Commnt No 06/03/17 04:14 POC ABG pH 7.470 (7.35-7.45) H 06/07/17 04:25 POC ABG pCO2 33.6 (35-45) L 06/07/17 04:25 POC ABG pO2 94 (80-105) 06/07/17 04:25 POC ABG HCO3 24.4 06/07/17 04:25 POC ABG Total CO2 25 06/07/17 04:25 POC ABG O2 Sat 98 06/07/17 04:25 POC ABG Base Excess 1 06/07/17 04:25 VBG pH 7.327 (7.320-7.420) 05/30/17 10:43 FiO2 28 % 06/07/17 04:25 Sodium 135 mmol/L (137-145) L 06/07/17 07:51 Potassium 4.1 mmol/L (3.6-5.0) 06/07/17 07:51 Chloride 102.0 mmol/L (98-107) 06/07/17 07:51 Carbon Dioxide 21 mmol/L (22-30) L 06/07/17 07:51 Anion Gap 16 mmol/L 06/07/17 07:51 BUN 50 mg/dL (7-17) H 06/07/17 07:51 Creatinine 1.8 mg/dL (0.7-1.2) H 06/07/17 07:51 Estimated GFR 39 ml/min 06/07/17 07:51 BUN/Creatinine Ratio 28 % 06/07/17 07:51 Glucose 232 mg/dL (65-100) H 06/07/17 07:51 POC Glucose 136 (70-105) H 06/08/17 05:25 Hemoglobin A1c 9.7 % (4-6) H 05/31/17 05:45 Calcium 8.0 mg/dL (8.4-10.2) L 06/07/17 07:51 Phosphorus 4.40 mg/dL (2.5-4.5) 06/07/17 07:51 Magnesium 1.70 mg/dL (1.7-2.3) 06/07/17 07:51 Total Bilirubin 0.50 mg/dL (0.1-1.2) 06/02/17 04:24 AST 23 units/L (5-40) 06/02/17 04:24 ALT 14 units/L (7-56) 06/02/17 04:24 Alkaline Phosphatase 132 units/L (35-129) H 06/02/17 04:24 Total Protein 4.1 g/dL (6.3-8.2) L 06/02/17 04:24 Albumin 1.7 g/dL (3.9-5) L 06/02/17 04:24 Albumin/Globulin Ratio 0.7 % 06/02/17 04:24 Urine Color Yellow (Yellow) 05/30/17 15:04 Urine Turbidity Clear (Clear) 05/30/17 15:04 Urine pH 7.0 (5.0-7.0) 05/30/17 15:[address] 1.021 (1.003-1.030) 05/30/17 15:04 Urine Protein >500 mg/dL (Negative) 05/30/17 15:04 Urine Glucose (UA) >=500 mg/dL (Negative) 05/30/17 15:04 Urine Ketones Tr mg/dL (Negative) 05/30/17 15:04 Urine Blood Sm (Negative) 05/30/17 15:04 Urine Nitrite Neg (Negative) 05/30/17 15:04 Urine Bilirubin Neg (Negative) 05/30/17 15:04 Urine Urobilinogen < 2.0 mg/dL (<2.0) 05/30/17 15:04 Ur Leukocyte Esterase Neg (Negative) 05/30/17 15:04 Urine WBC (Auto) 2.0 /HPF (0.0-6.0) 05/30/17 15:04 Urine RBC (Auto) 5.0 /HPF (0.0-6.0) 05/30/17 15:04 Urine Bacteria (Auto) 1+ /HPF (Negative) 05/30/17 15:04 Urine Mucus Few /HPF 05/30/17 15:04 Urine Creatinine 78.7 mg/dL (0.1-20.0) H 06/04/17 17:21 Urine Sodium 10 mmol/L 06/02/17 10:18 Urine Total Protein 197 mg/dL (5-11.8) H 06/04/17 17:21 Urine Opiates Screen Presumptive negative 05/30/17 15:04 Urine Methadone Screen Presumptive negative 05/30/17 15:04 Ur Barbiturates Screen Presumptive negative 05/30/17 15:04 Levetiracetam 21.2 mcg/mL 05/30/17 08:59 Ur Phencyclidine Scrn Presumptive negative 05/30/17 15:04 Ur Amphetamines Screen Presumptive negative 05/30/17 15:04 U Benzodiazepines Scrn Presumptive negative 05/30/17 15:04 Urine Cocaine Screen Presumptive negative 05/30/17 15:04 U Marijuana (THC) Screen Presumptive positive 05/30/17 15:04 Drugs of Abuse Note Disclamer 05/30/17 15:04
--- NOTE | 2017-06-08 09:58 | Progress Note ---
Assessment and Plan 36 y/o female with acute respiratory failure secondary to metabolic encephalopathy, thought to be from seizures, s/p cardiac arrest. 1. Needs trach and peg. Discussed with mom at bedside. She will let us know current decision 2. Continue supportive care and PSV trials 3. Overall prognosis is guarded to poor. Will likely need LTACH for transition. CCT 31 minutes. Subjective Date of service: 06/08/17 Principal diagnosis: coma Interval history: Eyes open but not responsive to commands. Mother at bedside. Tachycardic but sinus. Objective Vital Signs - 12hr 06/07/17 06/07/17 06/07/17 22:00 22:01 22:19 Temperature Pulse Rate 119 H 114 H 119 H Respiratory 18 Rate Blood Pressure 179/99 179/99 O2 Sat by Pulse 100 Oximetry 06/07/17 06/07/17 06/08/17 23:01 23:40 00:00 Temperature 98.9 F Pulse Rate 106 H 98 H Respiratory 17 17 Rate Blood Pressure 147/78 164/85 O2 Sat by Pulse 98 99 97 Oximetry 06/08/17 06/08/17 06/08/17 00:01 01:01 02:01 Temperature Pulse Rate 99 H 91 H 90 Respiratory 18 17 16 Rate Blood Pressure 151/77 136/67 142/72 O2 Sat by Pulse 99 100 100 Oximetry 06/08/17 06/08/17 06/08/17 03:01 04:00 04:02 Temperature Pulse Rate 101 H 93 H 93 H Respiratory 19 17 Rate Blood Pressure 152/84 147/84 137/70 O2 Sat by Pulse 100 100 100 Oximetry 06/08/17 06/08/17 06/08/17 05:00 05:38 06:00 Temperature Pulse Rate 107 H 90 104 H Respiratory 20 17 Rate Blood Pressure 150/88 133/69 133/69 O2 Sat by Pulse 100 100 Oximetry 06/08/17 06/08/17 08:09 08:59 Temperature 97.6 F Pulse Rate 109 H Respiratory Rate Blood Pressure 152/80 O2 Sat by Pulse 100 Oximetry Constitutional: other (unresponsive, critically ill on ventilator) Eyes: non-icteric, other (chemosis better) ENT: oropharynx moist, other (orally intubated) Neck: supple Effort: normal Ascultation: Bilateral: rales, rhonchi, other (coarse BS bilaterally) Cardiovascular: other (tachycardia, RR; no mrg) Gastrointestinal: normoactive bowel sounds, soft, non-tender Integumentary: normal Extremities: no cyanosis, no edema, pink and warm Neurologic: unable to assess, other (unresponsive) Psychiatric: other (not able to assess) CBC and BMP: 06/04/17 04:05 06/07/17 07:51 ABG, PT/INR, D-dimer: ABG POC ABG pH 7.470 (7.35-7.45) H 06/07/17 04:25 POC ABG pCO2 33.6 (35-45) L 06/07/17 04:25 POC ABG pO2 94 (80-105) 06/07/17 04:25 POC ABG HCO3 24.4 06/07/17 04:25 POC ABG Total CO2 25 06/07/17 04:25 POC ABG O2 Sat 98 06/07/17 04:25 Abnormal lab findings: Abnormal Labs 05/30/17 05/30/17 05/30/17 07:48 07:48 08:32 WBC 11.5 H RBC Hgb Hct MCH 27 L RDW 16.3 H Plt Count Lymph % (Auto) [place] % (Auto) [place] # Seg Neutrophils % Seg Neuts % (Manual) Lymphocytes % (Manual) Basophils % (Manual) Seg Neutrophils # Seg Neutrophils # Man Lymphocytes # (Manual) Basophils # (Manual) POC ABG pH POC ABG pCO2 POC ABG pO2 Sodium 133 L Potassium Chloride 89.9 L Carbon Dioxide BUN 27 H Creatinine 2.0 H Glucose 741 H* POC Glucose > 500 H Hemoglobin A1c Calcium Phosphorus Magnesium AST Alkaline Phosphatase Total Protein Albumin Urine Creatinine Urine Total Protein 05/30/17 05/30/17 05/30/17 08:59 08:59 16:08 WBC 14.5 H RBC Hgb Hct MCH RDW 16.0 H Plt Count Lymph % (Auto) [place] % (Auto) [place] # Seg Neutrophils % Seg Neuts % (Manual) 95.0 H Lymphocytes % (Manual) 2.0 L Basophils % (Manual) 2.0 H Seg Neutrophils # Seg Neutrophils # Man 13.8 H Lymphocytes # (Manual) 0.3 L Basophils # (Manual) 0.3 H POC ABG pH POC ABG pCO2 POC ABG pO2 Sodium 134 L 135 L Potassium 3.2 L Chloride 90.8 L 93.6 L Carbon Dioxide BUN 28 H 30 H Creatinine 2.0 H 2.1 H Glucose 742 H* 567 H* POC Glucose Hemoglobin A1c Calcium Phosphorus Magnesium AST Alkaline Phosphatase 246 H Total Protein 5.6 L Albumin 2.9 L Urine Creatinine Urine Total Protein 05/30/17 05/30/17 05/30/17 16:35 17:55 18:59 WBC RBC Hgb Hct MCH RDW Plt Count Lymph % (Auto) [place] % (Auto) [place] # Seg Neutrophils % Seg Neuts % (Manual) Lymphocytes % (Manual) Basophils % (Manual) Seg Neutrophils # Seg Neutrophils # Man Lymphocytes # (Manual) Basophils # (Manual) POC ABG pH 7.544 H POC ABG pCO2 32.0 L POC ABG pO2 155 H Sodium Potassium 3.1 L Chloride 93.9 L Carbon Dioxide BUN 30 H Creatinine 2.0 H Glucose 561 H* POC Glucose 497 H Hemoglobin A1c Calcium Phosphorus Magnesium AST Alkaline Phosphatase Total Protein Albumin Urine Creatinine Urine Total Protein 05/30/17 05/30/17 05/30/17 19:31 19:31 21:38 WBC RBC Hgb Hct MCH RDW Plt Count Lymph % (Auto) [place] % (Auto) [place] # Seg Neutrophils % Seg Neuts % (Manual) Lymphocytes % (Manual) Basophils % (Manual) Seg Neutrophils # Seg Neutrophils # Man Lymphocytes # (Manual) Basophils # (Manual) POC ABG pH POC ABG pCO2 POC ABG pO2 Sodium 135 L Potassium 2.9 L* Chloride 93.8 L 95.4 L Carbon Dioxide 20 L BUN 29 H 30 H Creatinine 2.2 H 2.3 H Glucose 478 H 364 H POC Glucose Hemoglobin A1c Calcium Phosphorus 2.20 L D Magnesium 1.40 L AST 42 H Alkaline Phosphatase 177 H Total Protein 5.4 L Albumin 2.4 L Urine Creatinine Urine Total Protein 05/30/17 05/31/17 05/31/17 23:06 02:17 05:27 WBC RBC Hgb Hct MCH RDW Plt Count Lymph % (Auto) [place] % (Auto) [place] # Seg Neutrophils % Seg Neuts % (Manual) Lymphocytes % (Manual) Basophils % (Manual) Seg Neutrophils # Seg Neutrophils # Man Lymphocytes # (Manual) Basophils # (Manual) POC ABG pH 7.489 H POC ABG pCO2 POC ABG pO2 Sodium Potassium 3.2 L 3.5 L Chloride Carbon Dioxide BUN 30 H 31 H Creatinine 2.5 H 2.4 H Glucose 288 H 246 H POC Glucose Hemoglobin A1c Calcium 8.3 L Phosphorus Magnesium AST Alkaline Phosphatase Total Protein Albumin Urine Creatinine Urine Total Protein 05/31/17 05/31/17 05/31/17 05:45 05:45 05:45 WBC RBC Hgb Hct MCH RDW Plt Count Lymph % (Auto) [place] % (Auto) [place] # Seg Neutrophils % Seg Neuts % (Manual) Lymphocytes % (Manual) Basophils % (Manual) Seg Neutrophils # Seg Neutrophils # Man Lymphocytes # (Manual) Basophils # (Manual) POC ABG pH POC ABG pCO2 POC ABG pO2 Sodium Potassium Chloride Carbon Dioxide BUN 32 H 30 H Creatinine 2.5 H 2.6 H Glucose 266 H 271 H POC Glucose Hemoglobin A1c 9.7 H Calcium 8.3 L 8.2 L Phosphorus Magnesium AST Alkaline Phosphatase 145 H Total Protein 4.7 L Albumin 1.8 L Urine Creatinine Urine Total Protein 05/31/17 05/31/17 05/31/17 08:18 09:20 12:18 WBC RBC Hgb Hct MCH RDW Plt Count Lymph % (Auto) [place] % (Auto) [place] # Seg Neutrophils % Seg Neuts % (Manual) Lymphocytes % (Manual) Basophils % (Manual) Seg Neutrophils # Seg Neutrophils # Man Lymphocytes # (Manual) Basophils # (Manual) POC ABG pH POC ABG pCO2 POC ABG pO2 Sodium Potassium Chloride Carbon Dioxide BUN Creatinine Glucose POC Glucose 300 H 254 H 170 H Hemoglobin A1c Calcium Phosphorus Magnesium AST Alkaline Phosphatase Total Protein Albumin Urine Creatinine Urine Total Protein 05/31/17 05/31/17 05/31/17 14:09 14:17 14:27 WBC RBC Hgb Hct MCH RDW Plt Count Lymph % (Auto) [place] % (Auto) [place] # Seg Neutrophils % Seg Neuts % (Manual) Lymphocytes % (Manual) Basophils % (Manual) Seg Neutrophils # Seg Neutrophils # Man Lymphocytes # (Manual) Basophils # (Manual) POC ABG pH POC ABG pCO2 POC ABG pO2 Sodium Potassium 3.4 L Chloride 107.1 H Carbon Dioxide BUN 30 H Creatinine 2.6 H Glucose 38 L* POC Glucose < 40 L 189 H Hemoglobin A1c Calcium 7.6 L Phosphorus Magnesium AST Alkaline Phosphatase Total Protein Albumin Urine Creatinine Urine Total Protein 05/31/17 05/31/17 05/31/17 15:01 16:01 17:19 WBC RBC Hgb Hct MCH RDW Plt Count Lymph % (Auto) [place] % (Auto) [place] # Seg Neutrophils % Seg Neuts % (Manual) Lymphocytes % (Manual) Basophils % (Manual) Seg Neutrophils # Seg Neutrophils # Man Lymphocytes # (Manual) Basophils # (Manual) POC ABG pH POC ABG pCO2 POC ABG pO2 Sodium Potassium Chloride Carbon Dioxide BUN Creatinine Glucose POC Glucose 130 H 165 H 131 H Hemoglobin A1c Calcium Phosphorus Magnesium AST Alkaline Phosphatase Total Protein Albumin Urine Creatinine Urine Total Protein 05/31/17 05/31/17 05/31/17 18:46 19:54 20:36 WBC RBC Hgb Hct MCH RDW Plt Count Lymph % (Auto) [place] % (Auto) [place] # Seg Neutrophils % Seg Neuts % (Manual) Lymphocytes % (Manual) Basophils % (Manual) Seg Neutrophils # Seg Neutrophils # Man Lymphocytes # (Manual) Basophils # (Manual) POC ABG pH POC ABG pCO2 POC ABG pO2 Sodium Potassium Chloride Carbon Dioxide BUN 29 H Creatinine 2.4 H Glucose 124 H POC Glucose 128 H 157 H Hemoglobin A1c Calcium 7.9 L Phosphorus Magnesium AST Alkaline Phosphatase Total Protein Albumin Urine Creatinine Urine Total Protein 05/31/17 06/01/17 06/01/17 21:41 03:22 04:06 WBC RBC Hgb Hct MCH RDW Plt Count Lymph % (Auto) [place] % (Auto) [place] # Seg Neutrophils % Seg Neuts % (Manual) Lymphocytes % (Manual) Basophils % (Manual) Seg Neutrophils # Seg Neutrophils # Man Lymphocytes # (Manual) Basophils # (Manual) POC ABG pH POC ABG pCO2 POC ABG pO2 Sodium Potassium Chloride Carbon Dioxide 19 L BUN 29 H Creatinine 2.6 H Glucose 205 H POC Glucose 158 H 251 H Hemoglobin A1c Calcium 7.8 L Phosphorus Magnesium AST Alkaline Phosphatase Total Protein Albumin Urine Creatinine Urine Total Protein 06/01/17 06/01/17 06/01/17 04:30 09:15 09:59 WBC 19.7 H RBC Hgb 10.0 L Hct MCH 27 L RDW 17.1 H Plt Count Lymph % (Auto) [place] % (Auto) [place] # Seg Neutrophils % Seg Neuts % (Manual) Lymphocytes % (Manual) Basophils % (Manual) Seg Neutrophils # Seg Neutrophils # Man Lymphocytes # (Manual) Basophils # (Manual) POC ABG pH 7.464 H POC ABG pCO2 31.3 L POC ABG pO2 Sodium Potassium Chloride Carbon Dioxide BUN Creatinine Glucose POC Glucose 330 H Hemoglobin A1c Calcium Phosphorus Magnesium AST Alkaline Phosphatase Total Protein Albumin Urine Creatinine Urine Total Protein 06/01/17 06/01/17 06/01/17 11:36 12:25 13:43 WBC RBC Hgb Hct MCH RDW Plt Count Lymph % (Auto) [place] % (Auto) [place] # Seg Neutrophils % Seg Neuts % (Manual) Lymphocytes % (Manual) Basophils % (Manual) Seg Neutrophils # Seg Neutrophils # Man Lymphocytes # (Manual) Basophils # (Manual) POC ABG pH POC ABG pCO2 POC ABG pO2 Sodium Potassium Chloride Carbon Dioxide BUN Creatinine Glucose POC Glucose 431 H 434 H 445 H Hemoglobin A1c Calcium Phosphorus Magnesium AST Alkaline Phosphatase Total Protein Albumin Urine Creatinine Urine Total Protein 06/01/17 06/01/17 06/01/17 14:26 15:46 16:03 WBC RBC Hgb Hct MCH RDW Plt Count Lymph % (Auto) [place] % (Auto) [place] # Seg Neutrophils % Seg Neuts % (Manual) Lymphocytes % (Manual) Basophils % (Manual) Seg Neutrophils # Seg Neutrophils # Man Lymphocytes # (Manual) Basophils # (Manual) POC ABG pH POC ABG pCO2 POC ABG pO2 Sodium Potassium Chloride Carbon Dioxide BUN Creatinine Glucose POC Glucose 310 H 292 H 244 H Hemoglobin A1c Calcium Phosphorus Magnesium AST Alkaline Phosphatase Total Protein Albumin Urine Creatinine Urine Total Protein 06/01/17 06/01/17 06/01/17 16:59 17:49 19:05 WBC RBC Hgb Hct MCH RDW Plt Count Lymph % (Auto) [place] % (Auto) [place] # Seg Neutrophils % Seg Neuts % (Manual) Lymphocytes % (Manual) Basophils % (Manual) Seg Neutrophils # Seg Neutrophils # Man Lymphocytes # (Manual) Basophils # (Manual) POC ABG pH POC ABG pCO2 POC ABG pO2 Sodium Potassium Chloride Carbon Dioxide BUN Creatinine Glucose POC Glucose 260 H 203 H 156 H Hemoglobin A1c Calcium Phosphorus Magnesium AST Alkaline Phosphatase Total Protein Albumin Urine Creatinine Urine Total Protein 06/02/17 06/02/17 06/02/17 00:09 01:06 02:31 WBC RBC Hgb Hct MCH RDW Plt Count Lymph % (Auto) [place] % (Auto) [place] # Seg Neutrophils % Seg Neuts % (Manual) Lymphocytes % (Manual) Basophils % (Manual) Seg Neutrophils # Seg Neutrophils # Man Lymphocytes # (Manual) Basophils # (Manual) POC ABG pH POC ABG pCO2 POC ABG pO2 Sodium Potassium Chloride Carbon Dioxide BUN Creatinine Glucose POC Glucose 137 H 146 H 182 H Hemoglobin A1c Calcium Phosphorus Magnesium AST Alkaline Phosphatase Total Protein Albumin Urine Creatinine Urine Total Protein 06/02/17 06/02/17 06/02/17 04:03 04:24 04:24 WBC 21.0 H RBC 3.62 L Hgb Hct 29.6 L MCH RDW 16.5 H Plt Count Lymph % (Auto) [place] % (Auto) [place] # Seg Neutrophils % Seg Neuts % (Manual) 98.0 H Lymphocytes % (Manual) 1.0 L Basophils % (Manual) Seg Neutrophils # Seg Neutrophils # Man 20.6 H Lymphocytes # (Manual) 0.2 L Basophils # (Manual) POC ABG pH POC ABG pCO2 POC ABG pO2 Sodium Potassium Chloride Carbon Dioxide 20 L BUN 36 H Creatinine 2.8 H Glucose 137 H POC Glucose 150 H Hemoglobin A1c Calcium 7.5 L Phosphorus 4.60 H Magnesium 1.50 L AST Alkaline Phosphatase 132 H Total Protein 4.1 L Albumin 1.7 L Urine Creatinine Urine Total Protein 06/02/17 06/02/17 06/02/17 05:01 05:14 06:20 WBC RBC Hgb Hct MCH RDW Plt Count Lymph % (Auto) [place] % (Auto) [place] # Seg Neutrophils % Seg Neuts % (Manual) Lymphocytes % (Manual) Basophils % (Manual) Seg Neutrophils # Seg Neutrophils # Man Lymphocytes # (Manual) Basophils # (Manual) POC ABG pH 7.517 H POC ABG pCO2 28.4 L POC ABG pO2 67 L Sodium Potassium Chloride Carbon Dioxide BUN Creatinine Glucose POC Glucose 137 H 163 H Hemoglobin A1c Calcium Phosphorus Magnesium AST Alkaline Phosphatase Total Protein Albumin Urine Creatinine Urine Total Protein 06/02/17 06/02/17 06/02/17 07:43 09:40 10:18 WBC RBC Hgb Hct MCH RDW Plt Count Lymph % (Auto) [place] % (Auto) [place] # Seg Neutrophils % Seg Neuts % (Manual) Lymphocytes % (Manual) Basophils % (Manual) Seg Neutrophils # Seg Neutrophils # Man Lymphocytes # (Manual) Basophils # (Manual) POC ABG pH POC ABG pCO2 POC ABG pO2 Sodium Potassium Chloride Carbon Dioxide BUN Creatinine Glucose POC Glucose 135 H 196 H Hemoglobin A1c Calcium Phosphorus Magnesium AST Alkaline Phosphatase Total Protein Albumin Urine Creatinine Urine Total Protein < 4 L 06/02/17 06/02/17 06/02/17 10:33 11:55 17:39 WBC RBC Hgb Hct MCH RDW Plt Count Lymph % (Auto) [place] % (Auto) [place] # Seg Neutrophils % Seg Neuts % (Manual) Lymphocytes % (Manual) Basophils % (Manual) Seg Neutrophils # Seg Neutrophils # Man Lymphocytes # (Manual) Basophils # (Manual) POC ABG pH POC ABG pCO2 POC ABG pO2 Sodium Potassium Chloride Carbon Dioxide BUN Creatinine Glucose POC Glucose 188 H 110 H 150 H Hemoglobin A1c Calcium Phosphorus Magnesium AST Alkaline Phosphatase Total Protein Albumin Urine Creatinine Urine Total Protein 06/02/17 06/02/17 06/03/17 18:12 21:32 02:02 WBC RBC Hgb Hct MCH RDW Plt Count Lymph % (Auto) [place] % (Auto) [place] # Seg Neutrophils % Seg Neuts % (Manual) Lymphocytes % (Manual) Basophils % (Manual) Seg Neutrophils # Seg Neutrophils # Man Lymphocytes # (Manual) Basophils # (Manual) POC ABG pH POC ABG pCO2 POC ABG pO2 Sodium Potassium Chloride Carbon Dioxide BUN Creatinine Glucose POC Glucose 131 H 143 H 191 H Hemoglobin A1c Calcium Phosphorus Magnesium AST Alkaline Phosphatase Total Protein Albumin Urine Creatinine Urine Total Protein 06/03/17 06/03/17 06/03/17 04:14 04:14 05:06 WBC 21.1 H RBC Hgb Hct MCH 27 L RDW 15.9 H Plt Count 447 H Lymph % (Auto) [place] % (Auto) [place] # Seg Neutrophils % Seg Neuts % (Manual) 94.0 H Lymphocytes % (Manual) 3.0 L Basophils % (Manual) Seg Neutrophils # Seg Neutrophils # Man 19.8 H Lymphocytes # (Manual) 0.6 L Basophils # (Manual) POC ABG pH POC ABG pCO2 28.6 L POC ABG pO2 112 H Sodium Potassium Chloride Carbon Dioxide 14 L BUN 45 H Creatinine 2.8 H Glucose 211 H POC Glucose Hemoglobin A1c Calcium 8.0 L Phosphorus Magnesium AST Alkaline Phosphatase Total Protein Albumin Urine Creatinine Urine Total Protein 06/03/17 06/03/17 06/03/17 06:00 10:20 13:43 WBC RBC Hgb Hct MCH RDW Plt Count Lymph % (Auto) [place] % (Auto) [place] # Seg Neutrophils % Seg Neuts % (Manual) Lymphocytes % (Manual) Basophils % (Manual) Seg Neutrophils # Seg Neutrophils # Man Lymphocytes # (Manual) Basophils # (Manual) POC ABG pH POC ABG pCO2 POC ABG pO2 Sodium Potassium Chloride Carbon Dioxide BUN Creatinine Glucose POC Glucose 224 H 226 H 296 H Hemoglobin A1c Calcium Phosphorus Magnesium AST Alkaline Phosphatase Total Protein Albumin Urine Creatinine Urine Total Protein 06/03/17 06/03/17 06/03/17 17:38 19:23 20:45 WBC RBC Hgb Hct MCH RDW Plt Count Lymph % (Auto) [place] % (Auto) [place] # Seg Neutrophils % Seg Neuts % (Manual) Lymphocytes % (Manual) Basophils % (Manual) Seg Neutrophils # Seg Neutrophils # Man Lymphocytes # (Manual) Basophils # (Manual) POC ABG pH POC ABG pCO2 POC ABG pO2 Sodium Potassium Chloride Carbon Dioxide BUN Creatinine Glucose POC Glucose 295 H 275 H 338 H Hemoglobin A1c Calcium Phosphorus Magnesium AST Alkaline Phosphatase Total Protein Albumin Urine Creatinine Urine Total Protein 06/03/17 06/03/17 06/04/17 21:50 23:08 00:16 WBC RBC Hgb Hct MCH RDW Plt Count Lymph % (Auto) [place] % (Auto) [place] # Seg Neutrophils % Seg Neuts % (Manual) Lymphocytes % (Manual) Basophils % (Manual) Seg Neutrophils # Seg Neutrophils # Man Lymphocytes # (Manual) Basophils # (Manual) POC ABG pH POC ABG pCO2 POC ABG pO2 Sodium Potassium Chloride Carbon Dioxide BUN Creatinine Glucose POC Glucose 223 H 214 H 226 H Hemoglobin A1c Calcium Phosphorus Magnesium AST Alkaline Phosphatase Total Protein Albumin Urine Creatinine Urine Total Protein 06/04/17 06/04/17 06/04/17 01:05 02:07 03:27 WBC RBC Hgb Hct MCH RDW Plt Count Lymph % (Auto) [place] % (Auto) [place] # Seg Neutrophils % Seg Neuts % (Manual) Lymphocytes % (Manual) Basophils % (Manual) Seg Neutrophils # Seg Neutrophils # Man Lymphocytes # (Manual) Basophils # (Manual) POC ABG pH POC ABG pCO2 POC ABG pO2 Sodium Potassium Chloride Carbon Dioxide BUN Creatinine Glucose POC Glucose 217 H 229 H 185 H Hemoglobin A1c Calcium Phosphorus Magnesium AST Alkaline Phosphatase Total Protein Albumin Urine Creatinine Urine Total Protein 06/04/17 06/04/17 06/04/17 03:52 04:05 04:05 WBC 19.6 H RBC Hgb Hct MCH 26 L RDW 15.6 H Plt Count 564 H Lymph % (Auto) 7.3 L [place] % (Auto) 10.8 H [place] # 2.1 H Seg Neutrophils % 81.4 H Seg Neuts % (Manual) Lymphocytes % (Manual) Basophils % (Manual) Seg Neutrophils # 15.9 H Seg Neutrophils # Man Lymphocytes # (Manual) Basophils # (Manual) POC ABG pH POC ABG pCO2 POC ABG pO2 Sodium Potassium Chloride Carbon Dioxide 17 L BUN 52 H Creatinine 2.5 H Glucose 163 H POC Glucose 181 H Hemoglobin A1c Calcium 7.9 L Phosphorus Magnesium AST Alkaline Phosphatase Total Protein Albumin Urine Creatinine Urine Total Protein 06/04/17 06/04/17 06/04/17 04:56 05:39 06:12 WBC RBC Hgb Hct MCH RDW Plt Count Lymph % (Auto) [place] % (Auto) [place] # Seg Neutrophils % Seg Neuts % (Manual) Lymphocytes % (Manual) Basophils % (Manual) Seg Neutrophils # Seg Neutrophils # Man Lymphocytes # (Manual) Basophils # (Manual) POC ABG pH 7.486 H POC ABG pCO2 26.8 L POC ABG pO2 Sodium Potassium Chloride Carbon Dioxide BUN Creatinine Glucose POC Glucose 208 H 225 H Hemoglobin A1c Calcium Phosphorus Magnesium AST Alkaline Phosphatase Total Protein Albumin Urine Creatinine Urine Total Protein 06/04/17 06/04/17 06/04/17 07:07 08:06 09:15 WBC RBC Hgb Hct MCH RDW Plt Count Lymph % (Auto) [place] % (Auto) [place] # Seg Neutrophils % Seg Neuts % (Manual) Lymphocytes % (Manual) Basophils % (Manual) Seg Neutrophils # Seg Neutrophils # Man Lymphocytes # (Manual) Basophils # (Manual) POC ABG pH POC ABG pCO2 POC ABG pO2 Sodium Potassium Chloride Carbon Dioxide BUN Creatinine Glucose POC Glucose 201 H 171 H 178 H Hemoglobin A1c Calcium Phosphorus Magnesium AST Alkaline Phosphatase Total Protein Albumin Urine Creatinine Urine Total Protein 06/04/17 06/04/17 06/04/17 10:16 12:22 17:21 WBC RBC Hgb Hct MCH RDW Plt Count Lymph % (Auto) [place] % (Auto) [place] # Seg Neutrophils % Seg Neuts % (Manual) Lymphocytes % (Manual) Basophils % (Manual) Seg Neutrophils # Seg Neutrophils # Man Lymphocytes # (Manual) Basophils # (Manual) POC ABG pH POC ABG pCO2 POC ABG pO2 Sodium Potassium Chloride Carbon Dioxide BUN Creatinine Glucose POC Glucose 191 H 188 H Hemoglobin A1c Calcium Phosphorus Magnesium AST Alkaline Phosphatase Total Protein Albumin Urine Creatinine 78.7 H Urine Total Protein 197 H 06/04/17 06/04/17 06/05/17 17:56 22:10 00:00 WBC RBC Hgb Hct MCH RDW Plt Count Lymph % (Auto) [place] % (Auto) [place] # Seg Neutrophils % Seg Neuts % (Manual) Lymphocytes % (Manual) Basophils % (Manual) Seg Neutrophils # Seg Neutrophils # Man Lymphocytes # (Manual) Basophils # (Manual) POC ABG pH POC ABG pCO2 POC ABG pO2 Sodium Potassium Chloride Carbon Dioxide 17 L BUN 55 H Creatinine 2.3 H Glucose 300 H POC Glucose 266 H 337 H Hemoglobin A1c Calcium 7.4 L Phosphorus Magnesium AST Alkaline Phosphatase Total Protein Albumin Urine Creatinine Urine Total Protein 06/05/17 06/05/17 06/05/17 03:26 04:11 05:13 WBC RBC Hgb Hct MCH RDW Plt Count Lymph % (Auto) [place] % (Auto) [place] # Seg Neutrophils % Seg Neuts % (Manual) Lymphocytes % (Manual) Basophils % (Manual) Seg Neutrophils # Seg Neutrophils # Man Lymphocytes # (Manual) Basophils # (Manual) POC ABG pH 7.586 H POC ABG pCO2 22.6 L POC ABG pO2 179 H Sodium Potassium Chloride Carbon Dioxide 19 L BUN 55 H Creatinine 2.2 H Glucose 226 H POC Glucose 220 H Hemoglobin A1c Calcium 7.7 L Phosphorus Magnesium AST Alkaline Phosphatase Total Protein Albumin Urine Creatinine Urine Total Protein 06/05/17 06/05/17 06/05/17 12:42 18:24 21:23 WBC RBC Hgb Hct MCH RDW Plt Count Lymph % (Auto) [place] % (Auto) [place] # Seg Neutrophils % Seg Neuts % (Manual) Lymphocytes % (Manual) Basophils % (Manual) Seg Neutrophils # Seg Neutrophils # Man Lymphocytes # (Manual) Basophils # (Manual) POC ABG pH POC ABG pCO2 POC ABG pO2 Sodium Potassium Chloride Carbon Dioxide BUN Creatinine Glucose POC Glucose 168 H 121 H 166 H Hemoglobin A1c Calcium Phosphorus Magnesium AST Alkaline Phosphatase Total Protein Albumin Urine Creatinine Urine Total Protein 06/06/17 06/06/17 06/06/17 00:14 04:11 06:19 WBC RBC Hgb Hct MCH RDW Plt Count Lymph % (Auto) [place] % (Auto) [place] # Seg Neutrophils % Seg Neuts % (Manual) Lymphocytes % (Manual) Basophils % (Manual) Seg Neutrophils # Seg Neutrophils # Man Lymphocytes # (Manual) Basophils # (Manual) POC ABG pH POC ABG pCO2 33.0 L POC ABG pO2 Sodium Potassium Chloride Carbon Dioxide BUN Creatinine Glucose POC Glucose 179 H 180 H Hemoglobin A1c Calcium Phosphorus Magnesium AST Alkaline Phosphatase Total Protein Albumin Urine Creatinine Urine Total Protein 06/06/17 06/06/17 06/06/17 12:19 18:38 20:01 WBC RBC Hgb Hct MCH RDW Plt Count Lymph % (Auto) [place] % (Auto) [place] # Seg Neutrophils % Seg Neuts % (Manual) Lymphocytes % (Manual) Basophils % (Manual) Seg Neutrophils # Seg Neutrophils # Man Lymphocytes # (Manual) Basophils # (Manual) POC ABG pH POC ABG pCO2 POC ABG pO2 Sodium Potassium Chloride Carbon Dioxide BUN Creatinine Glucose POC Glucose 123 H 56 L 65 L Hemoglobin A1c Calcium Phosphorus Magnesium AST Alkaline Phosphatase Total Protein Albumin Urine Creatinine Urine Total Protein 06/06/17 06/07/17 06/07/17 23:51 04:25 05:29 WBC RBC Hgb Hct MCH RDW Plt Count Lymph % (Auto) [place] % (Auto) [place] # Seg Neutrophils % Seg Neuts % (Manual) Lymphocytes % (Manual) Basophils % (Manual) Seg Neutrophils # Seg Neutrophils # Man Lymphocytes # (Manual) Basophils # (Manual) POC ABG pH 7.470 H POC ABG pCO2 33.6 L POC ABG pO2 Sodium Potassium Chloride Carbon Dioxide BUN Creatinine Glucose POC Glucose 118 H 183 H Hemoglobin A1c Calcium Phosphorus Magnesium AST Alkaline Phosphatase Total Protein Albumin Urine Creatinine Urine Total Protein 06/07/17 06/07/17 06/07/17 07:51 12:00 18:08 WBC RBC Hgb Hct MCH RDW Plt Count Lymph % (Auto) [place] % (Auto) [place] # Seg Neutrophils % Seg Neuts % (Manual) Lymphocytes % (Manual) Basophils % (Manual) Seg Neutrophils # Seg Neutrophils # Man Lymphocytes # (Manual) Basophils # (Manual) POC ABG pH POC ABG pCO2 POC ABG pO2 Sodium 135 L Potassium Chloride Carbon Dioxide 21 L BUN 50 H Creatinine 1.8 H Glucose 232 H POC Glucose 361 H 249 H Hemoglobin A1c Calcium 8.0 L Phosphorus Magnesium AST Alkaline Phosphatase Total Protein Albumin Urine Creatinine Urine Total Protein 06/07/17 06/08/17 23:53 05:25 WBC RBC Hgb Hct MCH RDW Plt Count Lymph % (Auto) [place] % (Auto) [place] # Seg Neutrophils % Seg Neuts % (Manual) Lymphocytes % (Manual) Basophils % (Manual) Seg Neutrophils # Seg Neutrophils # Man Lymphocytes # (Manual) Basophils # (Manual) POC ABG pH POC ABG pCO2 POC ABG pO2 Sodium Potassium Chloride Carbon Dioxide BUN Creatinine Glucose POC Glucose 190 H 136 H Hemoglobin A1c Calcium Phosphorus Magnesium AST Alkaline Phosphatase Total Protein Albumin Urine Creatinine Urine Total Protein
--- NOTE | 2017-06-08 10:20 | Progress Note ---
Assessment and Plan - Patient Problems (1) Acute renal failure with tubular necrosis Current Visit: Yes Status: Acute Plan to address problem: Non-Oliguric Acute renal failure/acute tubular necrosis. Kidney function was improving. Labs pending this morning. Follow kidney function and electrolytes on increased dose of diuretics. (2) Acute respiratory failure Current Visit: Yes Status: Acute Qualifiers: Respiratory failure complication: hypoxia Qualified Code(s): J96.01 - Acute respiratory failure with hypoxia Plan to address problem: Ventilator management by primary attending (3) Acute systolic heart failure Current Visit: Yes Status: Acute Plan to address problem: Continue diuretics and beta jas. Continue spironolactone and monitor fluid balance. ARAM inhibitor allergy noted (4) Hyperosmolar non-ketotic state in patient with type 2 diabetes mellitus Current Visit: Yes Status: Acute Plan to address problem: Blood sugar management by primary attending (5) Hypertension Current Visit: Yes Status: Acute Qualifiers: Hypertension type: essential hypertension Qualified Code(s): I10 - Essential (primary) hypertension Plan to address problem: Blood pressure has improved. Follow blood pressure on current medications Subjective Date of service: 06/08/17 Principal diagnosis: coma Interval history: Patient seen lying in bed in the intensive care unit. Intubated on ventilator. Not communicating. Not following commands. Mother at bedside Vent settings CMV 450/10/28% PEEP of 5 Objective - Exam Narrative Exam: Young -[place] female lying in bed intubated on ventilator HEENT: NCAT, endotracheal tube intact, orogastric tube intact Neck: Supple, no venous distention CVS: S1S2 RRR with no murmur, rub or gallop Chest: Lungs breath sounds with Low pitched rhonchi bilaterally Abdomen: Protuberant, soft, nontender, no organomegaly, bowel sounds are present Extremities: 1+ bilateral edema both upper and lower extremities Neuro: Eyes open, not following commands - Vital Signs Vital signs: Vital Signs - 12hr 06/07/17 06/07/17 06/07/17 22:19 23:01 23:40 Temperature Pulse Rate 119 H 106 H 98 H Respiratory 17 17 Rate Blood Pressure 179/99 147/78 164/85 O2 Sat by Pulse 98 99 Oximetry 06/08/17 06/08/17 06/08/17 00:00 00:01 01:01 Temperature 98.9 F Pulse Rate 99 H 91 H Respiratory 18 17 Rate Blood Pressure 151/77 136/67 O2 Sat by Pulse 97 99 100 Oximetry 06/08/17 06/08/17 06/08/17 02:01 03:01 04:00 Temperature Pulse Rate 90 101 H 93 H Respiratory 16 19 17 Rate Blood Pressure 142/72 152/84 147/84 O2 Sat by Pulse 100 100 100 Oximetry 06/08/17 06/08/17 06/08/17 04:02 05:00 05:38 Temperature Pulse Rate 93 H 107 H 90 Respiratory 20 Rate Blood Pressure 137/70 150/88 133/69 O2 Sat by Pulse 100 100 Oximetry 06/08/17 06/08/17 06/08/17 06:00 08:09 08:59 Temperature 97.6 F Pulse Rate 104 H 109 H Respiratory 17 Rate Blood Pressure 133/69 152/80 O2 Sat by Pulse 100 100 Oximetry 06/08/17 09:58 Temperature Pulse Rate 102 H Respiratory 15 Rate Blood Pressure 170/92 O2 Sat by Pulse 100 Oximetry - Lab 06/04/17 04:05 06/07/17 07:51 Most recent lab results Calcium 8.0 mg/dL (8.4-10.2) L 06/07/17 07:51 Phosphorus 4.40 mg/dL (2.5-4.5) 06/07/17 07:51 Magnesium 1.70 mg/dL (1.7-2.3) 06/07/17 07:51 Urine Creatinine 78.7 mg/dL (0.1-20.0) H 06/04/17 17:21 Urine Sodium 10 mmol/L 06/02/17 10:18 Urine Total Protein 197 mg/dL (5-11.8) H 06/04/17 17:21
[2017-06-08] MEDS: ARTIFICIAL TEARS OPHTH OINT OU PRN (11:06)
[2017-06-08] MEDS: ZAROXOLYN PO SCH ×2 (11:07→22:58)
[2017-06-08] MEDS: LOVENOX SUB-Q SCH (11:07)
[2017-06-08] MEDS: KEPPRA PO SCH ×2 (11:08→23:22)
[2017-06-08] MEDS: ALDACTONE PO SCH (11:08)
[2017-06-08] MEDS: COREG PO SCH ×2 (11:08→22:56)
[2017-06-08] MEDS: PEPCID PO SCH ×2 (11:08→22:56)
--- NOTE | 2017-06-08 14:28 | Progress Note ---
Assessment and Plan - Patient Problems (1) Dilated cardiomyopathy Current Visit: Yes Status: Acute Plan to address problem: Echocardiogram demonstrates dilated cardiomyopathy, ejection fraction 15-20%. The chronicity of the cardiomyopathy is uncertain, no records available for review. Patient's home medications do include carvedilol, valsartan and a diuretic, which may suggest the cardiomyopathy is possibly not new. At this time, will recommend medical therapy with continued afterload reduction , beta blockers and oral antiplatelet therapy. Further cardiac evaluation and management will depend on clinical course. Prognosis is guarded. (2) Acute respiratory failure Current Visit: Yes Status: Acute Qualifiers: Respiratory failure complication: hypoxia Qualified Code(s): J96.01 - Acute respiratory failure with hypoxia Plan to address problem: Patient was admitted with a reported seizure event, currently has acute respiratory failure, unresponsive on the vent. During the course in the hospital, I do not see any cardiac tachycardia or bradycardia arrhythmias on telemetry monitoring. Subjective Date of service: 06/08/17 Principal diagnosis: coma Interval history: Patient is unresponsive, on the vent. Stable sinus rhythm, stable hemodynamics. Objective Vital Signs Temp Pulse Resp BP Pulse Ox 06/08/17 13:01 97.4 F L 06/08/17 11:57 103 H 18 159/84 100 06/08/17 11:08 94 H 152/80 06/08/17 11:00 95 H 15 164/91 100 06/08/17 10:00 105 H 16 170/92 100 06/08/17 09:58 102 H 15 170/92 100 06/08/17 09:00 99 H 16 153/80 100 06/08/17 08:59 97.6 F 06/08/17 08:09 109 H 152/80 100 06/08/17 08:00 101 H 17 152/80 100 06/08/17 07:00 105 H 15 149/81 100 06/08/17 06:00 104 H 17 133/69 100 06/08/17 05:38 90 133/69 06/08/17 05:00 107 H 20 150/88 100 06/08/17 04:02 93 H 137/70 100 06/08/17 04:00 93 H 17 147/84 100 06/08/17 03:01 101 H 19 152/84 100 06/08/17 02:01 90 16 142/72 100 06/08/17 01:01 91 H 17 136/67 100 06/08/17 00:01 99 H 18 151/77 99 06/08/17 00:00 98.9 F 97 06/07/17 23:40 98 H 17 164/85 99 06/07/17 23:01 106 H 17 147/78 98 06/07/17 22:19 119 H 179/99 06/07/17 22:01 114 H 18 179/99 100 06/07/17 22:00 119 H 06/07/17 21:01 106 H 18 171/92 100 06/07/17 20:01 104 H 16 162/85 100 06/07/17 20:00 98.0 F 98 06/07/17 19:35 98 H 15 160/80 100 06/07/17 19:01 102 H 16 154/80 100 06/07/17 18:14 104 H 153/80 06/07/17 18:00 98 H 16 153/80 100 06/07/17 17:40 103 H 17 149/90 100 06/07/17 17:01 93 H 15 136/72 100 06/07/17 16:31 97.6 F 06/07/17 16:00 105 H 18 135/78 100 06/07/17 15:16 97 H 145/83 06/07/17 15:01 102 H 19 145/83 100 - Physical Examination General: Other (intubated on the vent.) HEENT: Positive: Other (pupils fixed) Neck: Positive: neck supple Cardiac: Positive: Reg Rate and Rhythm Lungs: Positive: Decreased Breath Sounds Neuro: Positive: Other (unresponsive, on the vent) Abdomen: Positive: Soft Skin: Positive: Clear Extremities: Absent: edema - Imaging and Cardiology EKG: report reviewed (sinus tachycardia)
[2017-06-08 14:47] LABS: Hematocrit 27.9 % (30.3-42.9); Hemoglobin 9.4 gm/dl (10.1-14.3); Mean Corpuscular HGB Conc 34 % (30-34); Mean Corpuscular Hemoglobin 27 pg (28-32); Mean Corpuscular Volume 80 fl (79-97); Platelet Count 590 K/mm3 (140-440); Red Blood Count 3.49 M/mm3 (3.65-5.03); Red Cell Distribution Width 15.3 % (13.2-15.2)
[2017-06-08 15:03] LABS: Calcium 8.6 mg/dL (8.4-10.2)
--- NOTE | 2017-06-08 16:46 | Consultation ---
History of Present Illness Consult date: 06/08/17 Chief complaint: on vent - History of present illness History of present illness: 36 yo F with hx of HTN, DM who presented to the hospital s/p seizures with altered mental status. The patient was intubated on arrival secondary to altered mental status. She has had a history of intubation in the past. She was also found to be severely hyperglycemic with blood glucose in the 500s. The patient is s/p cardiac arrest and has been unable to be weaned from the ventilator. In addition, she has been unresponsive even off sedation. Surgery is consulted for tracheostomy and PEG tube placement. Past History Past Medical History: diabetes, hypertension, seizures, other (gastroparesis) Past Surgical History: cholecystectomy, Other (botox for gastroparesis, bilateral breast reduction) Social history: no significant social history, , other (some marijuana to help gastroparesis.). denies: smoking, alcohol abuse (as one drink per month her mother estimates.), prescription drug abuse, IV drug use Family history: no significant family history, diabetes (both sides family), hypertension (both sides of family), stroke (mother), other (epilepsy in paternal first cousin and a first cousin wants removed on maternal side) Medications and Allergies Allergies Allergy/AdvReac Type Severity Reaction Status Date / Time lisinopril Allergy Angioedema Verified 12/30/16 12:06 Home Medications Medication Instructions Recorded Confirmed Last Taken Type Insulin Regular, Human [Novolin R] 22 units SQ AC 30 Days vial 01/01/17 Unknown Rx Bumetanide [Bumetanide 2 mg tab] 2 mg PO DAILY 06/02/17 06/02/17 Unknown History Carvedilol [Coreg] 6.25 mg PO BID 06/02/17 06/02/17 Unknown History Dicyclomine [Bentyl] 1 cap PO BID PRN 06/02/17 06/02/17 Unknown History Furosemide [Lasix TAB] 40 mg PO QDAY 06/02/17 06/02/17 Unknown History HYDROcodone/APAP 5-325 1 - 2 tab PO Q6HR PRN 06/02/17 06/02/17 Unknown History Metoclopramide [Reglan TAB] 1 tab PO Q6HR 06/02/17 06/02/17 Unknown History Pantoprazole [Protonix] 40 mg PO QDAY 06/02/17 06/02/17 Unknown History Valsartan/Hydrochlorothiazide 1 tab PO DAILY 06/02/17 06/02/17 Unknown History [Valsartan-Hctz 160-12.5 mg Tab] Active Meds: Active Medications Acetaminophen (Tylenol) 650 mg FEEDTUBE Q6H PRN PRN Reason: Pain, Mild (1-3) Last Admin: 05/30/17 22:44 Dose: 650 mg Lipase/Protease/Amylase (Pancreaze Dr 10,500 Unit) 1 each FEEDTUBE PRN PRN PRN Reason: For Clogged Feeding Tube Carvedilol (Coreg) 25 mg PO BID [facility] Last Admin: 06/08/17 11:08 Dose: 25 mg Dextrose (D50w (25gm) Syringe) 0 ml IV PRN PRN PRN Reason: Hypoglycemia Last Admin: 06/06/17 18:42 Dose: 20 ml Enoxaparin Sodium (Lovenox) 40 mg SUB-Q QDAY [facility] Last Admin: 06/08/17 11:07 Dose: 40 mg Famotidine (Pepcid) 20 mg PO BID [facility] Last Admin: 06/08/17 11:08 Dose: 20 mg Furosemide (Lasix) 50 mg IV 0600,1800 [facility] Last Admin: 06/08/17 05:38 Dose: 50 mg Hydralazine HCl (Apresoline) 10 mg IV Q6HR PRN PRN Reason: Hypertension Last Admin: 06/07/17 01:01 Dose: 10 mg Hydralazine HCl (Apresoline) 25 mg PO Q8HR [facility] Last Admin: 06/08/17 15:34 Dose: 25 mg Hydrophilic Ointment (Vaseline Lip Therapy) 1 applic TP Q2HR PRN PRN Reason: Dry Lips Last Admin: 06/02/17 17:03 Dose: 1 applic Insulin Human Isoph/Insulin Regular (Humulin 70/30) 25 unit SUB-Q BID [facility] Last Admin: 06/08/17 11:07 Dose: 25 unit Insulin Human Lispro (Humalog) 0 unit SUB-Q Q6HR [facility]; Protocol Last Admin: 06/08/17 14:05 Dose: Not Given Isosorbide Dinitrate (Isordil Titradose) 10 mg PO Q8HR [facility] Last Admin: 06/08/17 15:33 Dose: 10 mg Levetiracetam (Keppra) 750 mg PO BID [facility] Last Admin: 06/08/17 11:08 Dose: 750 mg Memantine (Namenda) 5 mg PO Q12H [facility] Last Admin: 06/08/17 05:38 Dose: 5 mg Metolazone (Zaroxolyn) 5 mg PO BID [facility] Last Admin: 06/08/17 11:07 Dose: 5 mg Multi-Ingred Cream/Lotion/Oil/Oint (Artificial Tears Ophth Oint) 1 applic OU Q4HR PRN PRN Reason: Dry Eye(s) Last Admin: 06/08/17 11:06 Dose: 1 applic Simple Syrup (Simple Syrup) 15 ml FEEDTUBE PRN PRN PRN Reason: Hypoglycemia Simple Syrup (Simple Syrup) 30 ml FEEDTUBE PRN PRN PRN Reason: Hypoglycemia Sodium Bicarbonate (Sodium Bicarbonate) 325 mg FEEDTUBE PRN PRN PRN Reason: For Clogged Feeding Tube Sodium Chloride (Nacl 0.9% 500 Ml) 1 ml IV DIRECT [facility] Spironolactone (Aldactone) 25 mg PO QDAY [facility] Last Admin: 06/08/17 11:08 Dose: 25 mg Review of Systems ROS unobtainable: due to endotracheal tube Exam Vital Signs Pulse Resp 101 H 23 05/30/17 06:58 05/30/17 06:58 Narrative exam: Gen: Intubated on Vent. Not responsive ENT: NGT in place with TF running. ETT in place. Trachea midline CV: S1, S2+ Resp: No wheezes Abd: soft, NT, ND Ext: no c/c/e Results - Labs 06/08/17 14:20 06/08/17 14:20 Abnormal lab results 06/07/17 06/07/17 06/08/17 Range/Units 18:08 23:53 05:25 WBC (4.5-11.0) K/mm3 RBC (3.65-5.03) M/mm3 Hgb (10.1-14.3) gm/dl Hct (30.3-42.9) % MCH (28-32) pg RDW (13.2-15.2) % Plt Count (140-440) K/mm3 BUN (7-17) mg/dL Creatinine (0.7-1.2) mg/dL Glucose (65-100) mg/dL POC Glucose 249 H 190 H 136 H (70-105) 06/08/17 06/08/17 06/08/17 Range/Units 11:50 14:20 14:20 WBC 15.7 H (4.5-11.0) K/mm3 RBC 3.49 L (3.65-5.03) M/mm3 Hgb 9.4 L (10.1-14.3) gm/dl Hct 27.9 L (30.3-42.9) % MCH 27 L (28-32) pg RDW 15.3 H (13.2-15.2) % Plt Count 590 H (140-440) K/mm3 BUN 55 H (7-17) mg/dL Creatinine 1.7 H (0.7-1.2) mg/dL Glucose 117 H (65-100) mg/dL POC Glucose 166 H (70-105) Diabetes panel 06/08/17 Range/Units 14:20 Sodium 138 (137-145) mmol/L Potassium 3.9 (3.6-5.0) mmol/L Chloride 101.7 (98-107) mmol/L Carbon Dioxide 22 (22-30) mmol/L BUN 55 H (7-17) mg/dL Creatinine 1.7 H (0.7-1.2) mg/dL Glucose 117 H (65-100) mg/dL Calcium 8.6 (8.4-10.2) mg/dL Calcium panel 06/08/17 Range/Units 14:20 Calcium 8.6 (8.4-10.2) mg/dL Pituitary panel 06/08/17 Range/Units 14:20 Sodium 138 (137-145) mmol/L Potassium 3.9 (3.6-5.0) mmol/L Chloride 101.7 (98-107) mmol/L Carbon Dioxide 22 (22-30) mmol/L BUN 55 H (7-17) mg/dL Creatinine 1.7 H (0.7-1.2) mg/dL Glucose 117 H (65-100) mg/dL Calcium 8.6 (8.4-10.2) mg/dL Adrenal panel 06/08/17 Range/Units 14:20 Sodium 138 (137-145) mmol/L Potassium 3.9 (3.6-5.0) mmol/L Chloride 101.7 (98-107) mmol/L Carbon Dioxide 22 (22-30) mmol/L BUN 55 H (7-17) mg/dL Creatinine 1.7 H (0.7-1.2) mg/dL Glucose 117 H (65-100) mg/dL Calcium 8.6 (8.4-10.2) mg/dL - Imaging Chest x-ray: report reviewed, image reviewed Assessment and Plan 36 yo F with 1. VDRF 2. gastroparesis 3. metabolic encephalopathy 4. s/p cardiac arrest 5. DM 6. seizures Plan: 1. will plan for Tracheostomy this week 2. will discuss with IR regarding placement of percutaneous G-J feeling tube in light of the patient's known hx of gastroparesis 3. continue vent support per ICU team 4. all risks, benefits, and alternatives of tracheostomy, PEG tube, fiberoptic bronchoscopy discussed with patient's , mother, and family. All questions answered and consent obtained Thank you Dr. Pate for this consultation. Please call with questions or concerns.
[2017-06-09 05:11] LABS: INR 0.88 (0.87-1.13)
[2017-06-09 05:24] LABS: Calcium 8.5 mg/dL (8.4-10.2)
[2017-06-09] MEDS: NAMENDA PO SCH ×2 (05:29→18:01)
[2017-06-09] MEDS: APRESOLINE PO SCH ×3 (05:29→21:21)
[2017-06-09] MEDS: LASIX IV SCH ×2 (05:30→18:00)
[2017-06-09] MEDS: HumaLOG SUB-Q SCH ×3 (05:33→18:00)
[2017-06-09] MEDS: ISORDIL TITRADOSE PO SCH ×3 (05:35→21:22)
--- NOTE | 2017-06-09 09:13 | Progress Note ---
Assessment and Plan Assessment and plan: 36-year-old -[place] female was admitted to the floor for seizure episode, altered mental status, acute hypoxic respiratory failure, patient was intubated in the emergency department patient had PEA and resuscitated successfully. 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 -Improving. Creatinine 1.6 today Nephrology following Hypertension. BP uncontrolled. Will increase Hydralazine to 50mg q 8hrs. DVT prophylaxis with Lovenox Disposition - Continue ICU care. poor prognosis POOR PROGNOSIS History Interval history: Still intubated, Unresponsive Hospitalist Physical - Physical exam Narrative exam: Gen appearance: Intubated, lying in bed, obese HEENT: facial edema, swollen tongue,intubated orally Neck:supple, no JVD Lungs: Coarse breath sounds bilaterally, no wheeze Heart: S1 and S2 regular, no murmurs, rubs or gallop Abdomen: soft, non tender, non distended, normal bowel sounds Ext: Edema both upper and lower extremities, no cyanosis Neuro: Intubated, unresponsive - Constitutional Vitals: Temp Pulse Resp BP Pulse Ox 99 F 83 15 155/95 100 06/09/17 03:52 06/09/17 08:13 06/09/17 06:30 06/09/17 08:13 06/09/17 08:13 General appearance: Present: other (unresponsive, on the ventilator) Results - Labs CBC & Chem 7: 06/08/17 14:20 06/09/17 04:18 Labs: Laboratory Last Values WBC 15.7 K/mm3 (4.5-11.0) H 06/08/17 14:20 RBC 3.49 M/mm3 (3.65-5.03) L 06/08/17 14:20 Hgb 9.4 gm/dl (10.1-14.3) L 06/08/17 14:20 Hct 27.9 % (30.3-42.9) L 06/08/17 14:20 MCV 80 fl (79-97) 06/08/17 14:20 MCH 27 pg (28-32) L 06/08/17 14:20 MCHC 34 % (30-34) 06/08/17 14:20 RDW 15.3 % (13.2-15.2) H 06/08/17 14:20 Plt Count 590 K/mm3 (140-440) H 06/08/17 14:20 Lymph % (Auto) 7.3 % (13.4-35.0) L 06/04/17 04:05 [place] % (Auto) 10.8 % (0.0-7.3) H 06/04/17 04:05 Eos % (Auto) 0.1 % (0.0-4.3) 06/04/17 04:05 Baso % (Auto) 0.4 % (0.0-1.8) 06/04/17 04:05 Lymph # 1.4 K/mm3 (1.2-5.4) 06/04/17 04:05 [place] # 2.1 K/mm3 (0.0-0.8) H 06/04/17 04:05 Eos # 0.0 K/mm3 (0.0-0.4) 06/04/17 04:05 Baso # 0.1 K/mm3 (0.0-0.1) 06/04/17 04:05 Add Manual Diff Complete 06/03/17 04:14 Total Counted 100 06/03/17 04:14 Seg Neutrophils % 81.4 % (40.0-70.0) H 06/04/17 04:05 Seg Neuts % (Manual) 94.0 % (40.0-70.0) H 06/03/17 04:14 Band Neutrophils % 0 % 06/03/17 04:14 Lymphocytes % (Manual) 3.0 % (13.4-35.0) L 06/03/17 04:14 Reactive Lymphs % (Man) 0 % 06/03/17 04:14 Monocytes % (Manual) 3.0 % (0.0-7.3) 06/03/17 04:14 Eosinophils % (Manual) 0 % (0.0-4.3) 06/03/17 04:14 Basophils % (Manual) 0 % (0.0-1.8) 06/03/17 04:14 Metamyelocytes % 0 % 06/03/17 04:14 Myelocytes % 0 % 06/03/17 04:14 Promyelocytes % 0 % 06/03/17 04:14 Blast Cells % 0 % 06/03/17 04:14 Nucleated RBC % Not Reportable 06/03/17 04:14 Seg Neutrophils # 15.9 K/mm3 (1.8-7.7) H 06/04/17 04:05 Seg Neutrophils # Man 19.8 K/mm3 (1.8-7.7) H 06/03/17 04:14 Band Neutrophils # 0.0 K/mm3 06/03/17 04:14 Lymphocytes # (Manual) 0.6 K/mm3 (1.2-5.4) L 06/03/17 04:14 Abs React Lymphs (Man) 0.0 K/mm3 06/03/17 04:14 Monocytes # (Manual) 0.6 K/mm3 (0.0-0.8) 06/03/17 04:14 Eosinophils # (Manual) 0.0 K/mm3 (0.0-0.4) 06/03/17 04:14 Basophils # (Manual) 0.0 K/mm3 (0.0-0.1) 06/03/17 04:14 Metamyelocytes # 0.0 K/mm3 06/03/17 04:14 Myelocytes # 0.0 K/mm3 06/03/17 04:14 Promyelocytes # 0.0 K/mm3 06/03/17 04:14 Blast Cells # 0.0 K/mm3 06/03/17 04:14 WBC Morphology Not Reportable 06/03/17 04:14 Hypersegmented Neuts Not Reportable 06/03/17 04:14 Hyposegmented Neuts Not Reportable 06/03/17 04:14 Hypogranular Neuts Not Reportable 06/03/17 04:14 Smudge Cells Not Reportable 06/03/17 04:14 Toxic Granulation Not Reportable 06/03/17 04:14 Toxic Vacuolation Not Reportable 06/03/17 04:14 Dohle Bodies Not Reportable 06/03/17 04:14 Pelger-Huet Anomaly Not Reportable 06/03/17 04:14 Don Rods Not Reportable 06/03/17 04:14 Platelet Estimate Consistent w auto 06/03/17 04:14 Clumped Platelets Not Reportable 06/03/17 04:14 Plt Clumps, EDTA Not Reportable 06/03/17 04:14 Large Platelets Not Reportable 06/03/17 04:14 Giant Platelets Not Reportable 06/03/17 04:14 Platelet Satelliting Not Reportable 06/03/17 04:14 Plt Morphology Comment Not Reportable 06/03/17 04:14 RBC Morphology Not Reportable 06/03/17 04:14 Dimorphic RBCs Not Reportable 06/03/17 04:14 Polychromasia Not Reportable 06/03/17 04:14 Hypochromasia Not Reportable 06/03/17 04:14 Poikilocytosis Not Reportable 06/03/17 04:14 Anisocytosis Not Reportable 06/03/17 04:14 Microcytosis Not Reportable 06/03/17 04:14 Macrocytosis Not Reportable 06/03/17 04:14 Spherocytes Not Reportable 06/03/17 04:14 Pappenheimer Bodies Not Reportable 06/03/17 04:14 Sickle Cells Not Reportable 06/03/17 04:14 Target Cells Not Reportable 06/03/17 04:14 Tear Drop Cells Not Reportable 06/03/17 04:14 Ovalocytes Not Reportable 06/03/17 04:14 Helmet Cells Not Reportable 06/03/17 04:14 [place] Bodies Not Reportable 06/03/17 04:14 [place] Rings Not Reportable 06/03/17 04:14 Cecy Cells Not Reportable 06/03/17 04:14 Bite Cells Not Reportable 06/03/17 04:14 Crenated Cell Not Reportable 06/03/17 04:14 Elliptocytes Not Reportable 06/03/17 04:14 Acanthocytes (Spur) Not Reportable 06/03/17 04:14 Rouleaux Not Reportable 06/03/17 04:14 Hemoglobin C Crystals Not Reportable 06/03/17 04:14 Schistocytes Not Reportable 06/03/17 04:14 Malaria parasites Not Reportable 06/03/17 04:14 Fadi Bodies Not Reportable 06/03/17 04:14 Hem Pathologist Commnt No 06/03/17 04:14 PT 12.4 Sec. (12.2-14.9) 06/09/17 04:18 INR 0.88 (0.87-1.13) 06/09/17 04:18 POC ABG pH 7.470 (7.35-7.45) H 06/07/17 04:25 POC ABG pCO2 33.6 (35-45) L 06/07/17 04:25 POC ABG pO2 94 (80-105) 06/07/17 04:25 POC ABG HCO3 24.4 06/07/17 04:25 POC ABG Total CO2 25 06/07/17 04:25 POC ABG O2 Sat 98 06/07/17 04:25 POC ABG Base Excess 1 06/07/17 04:25 VBG pH 7.327 (7.320-7.420) 05/30/17 10:43 FiO2 28 % 06/07/17 04:25 Sodium 140 mmol/L (137-145) 06/09/17 04:18 Potassium 3.7 mmol/L (3.6-5.0) 06/09/17 04:18 Chloride 103.5 mmol/L (98-107) 06/09/17 04:18 Carbon Dioxide 22 mmol/L (22-30) 06/09/17 04:18 Anion Gap 18 mmol/L 06/09/17 04:18 BUN 51 mg/dL (7-17) H 06/09/17 04:18 Creatinine 1.6 mg/dL (0.7-1.2) H 06/09/17 04:18 Estimated GFR 44 ml/min 06/09/17 04:18 BUN/Creatinine Ratio 32 % 06/09/17 04:18 Glucose 95 mg/dL (65-100) 06/09/17 04:18 POC Glucose 97 (70-105) 06/09/17 05:38 Hemoglobin A1c 9.7 % (4-6) H 05/31/17 05:45 Calcium 8.5 mg/dL (8.4-10.2) 06/09/17 04:18 Phosphorus 4.40 mg/dL (2.5-4.5) 06/07/17 07:51 Magnesium 1.70 mg/dL (1.7-2.3) 06/07/17 07:51 Total Bilirubin 0.50 mg/dL (0.1-1.2) 06/02/17 04:24 AST 23 units/L (5-40) 06/02/17 04:24 ALT 14 units/L (7-56) 06/02/17 04:24 Alkaline Phosphatase 132 units/L (35-129) H 06/02/17 04:24 Total Protein 4.1 g/dL (6.3-8.2) L 06/02/17 04:24 Albumin 1.7 g/dL (3.9-5) L 06/02/17 04:24 Albumin/Globulin Ratio 0.7 % 06/02/17 04:24 Urine Color Yellow (Yellow) 05/30/17 15:04 Urine Turbidity Clear (Clear) 05/30/17 15:04 Urine pH 7.0 (5.0-7.0) 05/30/17 15:04 Ur Specific [place] 1.021 (1.003-1.030) 05/30/17 15:04 Urine Protein >500 mg/dL (Negative) 05/30/17 15:04 Urine Glucose (UA) >=500 mg/dL (Negative) 05/30/17 15:04 Urine Ketones Tr mg/dL (Negative) 05/30/17 15:04 Urine Blood Sm (Negative) 05/30/17 15:04 Urine Nitrite Neg (Negative) 05/30/17 15:04 Urine Bilirubin Neg (Negative) 05/30/17 15:04 Urine Urobilinogen < 2.0 mg/dL (<2.0) 05/30/17 15:04 Ur Leukocyte Esterase Neg (Negative) 05/30/17 15:04 Urine WBC (Auto) 2.0 /HPF (0.0-6.0) 05/30/17 15:04 Urine RBC (Auto) 5.0 /HPF (0.0-6.0) 05/30/17 15:04 Urine Bacteria (Auto) 1+ /HPF (Negative) 05/30/17 15:04 Urine Mucus Few /HPF 05/30/17 15:04 Urine Creatinine 78.7 mg/dL (0.1-20.0) H 06/04/17 17:21 Urine Sodium 10 mmol/L 06/02/17 10:18 Urine Total Protein 197 mg/dL (5-11.8) H 06/04/17 17:21 Urine Opiates Screen Presumptive negative 05/30/17 15:04 Urine Methadone Screen Presumptive negative 05/30/17 15:04 Ur Barbiturates Screen Presumptive negative 05/30/17 15:04 Levetiracetam 21.2 mcg/mL 05/30/17 08:59 Ur Phencyclidine Scrn Presumptive negative 05/30/17 15:04 Ur Amphetamines Screen Presumptive negative 05/30/17 15:04 U Benzodiazepines Scrn Presumptive negative 05/30/17 15:04 Urine Cocaine Screen Presumptive negative 05/30/17 15:04 U Marijuana (THC) Screen Presumptive positive 05/30/17 15:04 Drugs of Abuse Note Disclamer 05/30/17 15:04
[2017-06-09] MEDS: LOVENOX SUB-Q SCH (10:00)
--- NOTE | 2017-06-09 10:27 | Event Note ---
Date: 06/09/17 Patient is scheduled for tracheostomy and PEG placement today at 1330. All meds and equipment ordered to the bedside. Consent obtained from yesterday. Labs reviewed. Called and left voicemessage for patient's to update him on scheduling.
--- NOTE | 2017-06-09 11:52 | Progress Note ---
Assessment and Plan 36 y/o female with acute respiratory failure secondary to metabolic encephalopathy, thought to be from seizures, s/p cardiac arrest. 1. Trach and Peg today. 2. Continue supportive care and PSV trials 3. Overall prognosis is guarded to poor. Will likely need LTACH for transition. CCT 31 minutes. Subjective Date of service: 06/09/17 Principal diagnosis: coma Interval history: No acute events overnight. Surgery saw patient and will perform trach and peg at the bedside this afternoon. Currently on PSV and tolerating. Objective Vital Signs - 12hr 06/09/17 06/09/17 06/09/17 00:00 00:10 00:30 Temperature 98 F Pulse Rate 101 H 103 H 100 H Pulse Rate [ 103 H From Monitor] Respiratory 16 16 Rate Blood Pressure 160/104 160/104 146/81 O2 Sat by Pulse 100 100 100 Oximetry 06/09/17 06/09/17 06/09/17 01:00 01:30 02:00 Temperature Pulse Rate 97 H 96 H 98 H Pulse Rate [ From Monitor] Respiratory 17 17 16 Rate Blood Pressure 147/85 145/81 145/81 O2 Sat by Pulse 100 100 100 Oximetry 06/09/17 06/09/17 06/09/17 02:30 03:00 03:30 Temperature Pulse Rate 98 H 96 H 114 H Pulse Rate [ From Monitor] Respiratory 16 14 19 Rate Blood Pressure 155/86 154/88 154/88 O2 Sat by Pulse 100 100 100 Oximetry 06/09/17 06/09/17 06/09/17 03:52 04:00 04:30 Temperature 99 F Pulse Rate 116 H 99 H Pulse Rate [ 96 H From Monitor] Respiratory 22 18 Rate Blood Pressure 156/85 156/95 O2 Sat by Pulse 96 Oximetry 06/09/17 06/09/17 06/09/17 04:34 05:00 05:29 Temperature Pulse Rate 109 H 106 H 95 H Pulse Rate [ From Monitor] Respiratory 18 Rate Blood Pressure 156/85 168/99 168/99 O2 Sat by Pulse 100 Oximetry 06/09/17 06/09/17 06/09/17 05:30 05:35 06:00 Temperature Pulse Rate 95 H 94 H 90 Pulse Rate [ From Monitor] Respiratory 18 15 Rate Blood Pressure 156/95 157/88 158/90 O2 Sat by Pulse 98 Oximetry 06/09/17 06/09/17 06/09/17 06:30 07:00 07:30 Temperature Pulse Rate 87 83 80 Pulse Rate [ From Monitor] Respiratory 15 12 13 Rate Blood Pressure 153/88 158/90 149/85 O2 Sat by Pulse 100 98 98 Oximetry 06/09/17 06/09/17 06/09/17 08:00 08:13 08:30 Temperature Pulse Rate 91 H 83 83 Pulse Rate [ From Monitor] Respiratory 13 16 Rate Blood Pressure 155/95 155/95 155/95 O2 Sat by Pulse 100 100 100 Oximetry 06/09/17 09:00 Temperature Pulse Rate 76 Pulse Rate [ From Monitor] Respiratory 16 Rate Blood Pressure 157/88 O2 Sat by Pulse 100 Oximetry Constitutional: other (unresponsive, critically ill on ventilator) Eyes: non-icteric ENT: oropharynx moist, other (orally intubated) Neck: supple Effort: normal Ascultation: Bilateral: diminished breath sounds Percussion: Bilateral: not dull Cardiovascular: other (tachycardia, RR; no mrg) Gastrointestinal: normoactive bowel sounds, soft, non-tender Integumentary: normal Extremities: no cyanosis, no edema, pink and warm Neurologic: unable to assess, other (unresponsive) Psychiatric: other (not able to assess) CBC and BMP: 06/08/17 14:20 06/09/17 04:18 ABG, PT/INR, D-dimer: ABG POC ABG pH 7.470 (7.35-7.45) H 06/07/17 04:25 POC ABG pCO2 33.6 (35-45) L 06/07/17 04:25 POC ABG pO2 94 (80-105) 06/07/17 04:25 POC ABG HCO3 24.4 06/07/17 04:25 POC ABG Total CO2 25 06/07/17 04:25 POC ABG O2 Sat 98 06/07/17 04:25 PT/INR, D-dimer PT 12.4 Sec. (12.2-14.9) 06/09/17 04:18 INR 0.88 (0.87-1.13) 06/09/17 04:18 Abnormal lab findings: Abnormal Labs 05/30/17 05/30/17 05/30/17 07:48 07:48 08:32 WBC 11.5 H RBC Hgb Hct MCH 27 L RDW 16.3 H Plt Count Lymph % (Auto) [place] % (Auto) [place] # Seg Neutrophils % Seg Neuts % (Manual) Lymphocytes % (Manual) Basophils % (Manual) Seg Neutrophils # Seg Neutrophils # Man Lymphocytes # (Manual) Basophils # (Manual) POC ABG pH POC ABG pCO2 POC ABG pO2 Sodium 133 L Potassium Chloride 89.9 L Carbon Dioxide BUN 27 H Creatinine 2.0 H Glucose 741 H* POC Glucose > 500 H Hemoglobin A1c Calcium Phosphorus Magnesium AST Alkaline Phosphatase Total Protein Albumin Urine Creatinine Urine Total Protein 05/30/17 05/30/17 05/30/17 08:59 08:59 16:08 WBC 14.5 H RBC Hgb Hct MCH RDW 16.0 H Plt Count Lymph % (Auto) [place] % (Auto) [place] # Seg Neutrophils % Seg Neuts % (Manual) 95.0 H Lymphocytes % (Manual) 2.0 L Basophils % (Manual) 2.0 H Seg Neutrophils # Seg Neutrophils # Man 13.8 H Lymphocytes # (Manual) 0.3 L Basophils # (Manual) 0.3 H POC ABG pH POC ABG pCO2 POC ABG pO2 Sodium 134 L 135 L Potassium 3.2 L Chloride 90.8 L 93.6 L Carbon Dioxide BUN 28 H 30 H Creatinine 2.0 H 2.1 H Glucose 742 H* 567 H* POC Glucose Hemoglobin A1c Calcium Phosphorus Magnesium AST Alkaline Phosphatase 246 H Total Protein 5.6 L Albumin 2.9 L Urine Creatinine Urine Total Protein 05/30/17 05/30/17 05/30/17 16:35 17:55 18:59 WBC RBC Hgb Hct MCH RDW Plt Count Lymph % (Auto) [place] % (Auto) [place] # Seg Neutrophils % Seg Neuts % (Manual) Lymphocytes % (Manual) Basophils % (Manual) Seg Neutrophils # Seg Neutrophils # Man Lymphocytes # (Manual) Basophils # (Manual) POC ABG pH 7.544 H POC ABG pCO2 32.0 L POC ABG pO2 155 H Sodium Potassium 3.1 L Chloride 93.9 L Carbon Dioxide BUN 30 H Creatinine 2.0 H Glucose 561 H* POC Glucose 497 H Hemoglobin A1c Calcium Phosphorus Magnesium AST Alkaline Phosphatase Total Protein Albumin Urine Creatinine Urine Total Protein 05/30/17 05/30/17 05/30/17 19:31 19:31 21:38 WBC RBC Hgb Hct MCH RDW Plt Count Lymph % (Auto) [place] % (Auto) [place] # Seg Neutrophils % Seg Neuts % (Manual) Lymphocytes % (Manual) Basophils % (Manual) Seg Neutrophils # Seg Neutrophils # Man Lymphocytes # (Manual) Basophils # (Manual) POC ABG pH POC ABG pCO2 POC ABG pO2 Sodium 135 L Potassium 2.9 L* Chloride 93.8 L 95.4 L Carbon Dioxide 20 L BUN 29 H 30 H Creatinine 2.2 H 2.3 H Glucose 478 H 364 H POC Glucose Hemoglobin A1c Calcium Phosphorus 2.20 L D Magnesium 1.40 L AST 42 H Alkaline Phosphatase 177 H Total Protein 5.4 L Albumin 2.4 L Urine Creatinine Urine Total Protein 05/30/17 05/31/17 05/31/17 23:06 02:17 05:27 WBC RBC Hgb Hct MCH RDW Plt Count Lymph % (Auto) [place] % (Auto) [place] # Seg Neutrophils % Seg Neuts % (Manual) Lymphocytes % (Manual) Basophils % (Manual) Seg Neutrophils # Seg Neutrophils # Man Lymphocytes # (Manual) Basophils # (Manual) POC ABG pH 7.489 H POC ABG pCO2 POC ABG pO2 Sodium Potassium 3.2 L 3.5 L Chloride Carbon Dioxide BUN 30 H 31 H Creatinine 2.5 H 2.4 H Glucose 288 H 246 H POC Glucose Hemoglobin A1c Calcium 8.3 L Phosphorus Magnesium AST Alkaline Phosphatase Total Protein Albumin Urine Creatinine Urine Total Protein 05/31/17 05/31/17 05/31/17 05:45 05:45 05:45 WBC RBC Hgb Hct MCH RDW Plt Count Lymph % (Auto) [place] % (Auto) [place] # Seg Neutrophils % Seg Neuts % (Manual) Lymphocytes % (Manual) Basophils % (Manual) Seg Neutrophils # Seg Neutrophils # Man Lymphocytes # (Manual) Basophils # (Manual) POC ABG pH POC ABG pCO2 POC ABG pO2 Sodium Potassium Chloride Carbon Dioxide BUN 32 H 30 H Creatinine 2.5 H 2.6 H Glucose 266 H 271 H POC Glucose Hemoglobin A1c 9.7 H Calcium 8.3 L 8.2 L Phosphorus Magnesium AST Alkaline Phosphatase 145 H Total Protein 4.7 L Albumin 1.8 L Urine Creatinine Urine Total Protein 05/31/17 05/31/17 05/31/17 08:18 09:20 12:18 WBC RBC Hgb Hct MCH RDW Plt Count Lymph % (Auto) [place] % (Auto) [place] # Seg Neutrophils % Seg Neuts % (Manual) Lymphocytes % (Manual) Basophils % (Manual) Seg Neutrophils # Seg Neutrophils # Man Lymphocytes # (Manual) Basophils # (Manual) POC ABG pH POC ABG pCO2 POC ABG pO2 Sodium Potassium Chloride Carbon Dioxide BUN Creatinine Glucose POC Glucose 300 H 254 H 170 H Hemoglobin A1c Calcium Phosphorus Magnesium AST Alkaline Phosphatase Total Protein Albumin Urine Creatinine Urine Total Protein 05/31/17 05/31/17 05/31/17 14:09 14:17 14:27 WBC RBC Hgb Hct MCH RDW Plt Count Lymph % (Auto) [place] % (Auto) [place] # Seg Neutrophils % Seg Neuts % (Manual) Lymphocytes % (Manual) Basophils % (Manual) Seg Neutrophils # Seg Neutrophils # Man Lymphocytes # (Manual) Basophils # (Manual) POC ABG pH POC ABG pCO2 POC ABG pO2 Sodium Potassium 3.4 L Chloride 107.1 H Carbon Dioxide BUN 30 H Creatinine 2.6 H Glucose 38 L* POC Glucose < 40 L 189 H Hemoglobin A1c Calcium 7.6 L Phosphorus Magnesium AST Alkaline Phosphatase Total Protein Albumin Urine Creatinine Urine Total Protein 05/31/17 05/31/17 05/31/17 15:01 16:01 17:19 WBC RBC Hgb Hct MCH RDW Plt Count Lymph % (Auto) [place] % (Auto) [place] # Seg Neutrophils % Seg Neuts % (Manual) Lymphocytes % (Manual) Basophils % (Manual) Seg Neutrophils # Seg Neutrophils # Man Lymphocytes # (Manual) Basophils # (Manual) POC ABG pH POC ABG pCO2 POC ABG pO2 Sodium Potassium Chloride Carbon Dioxide BUN Creatinine Glucose POC Glucose 130 H 165 H 131 H Hemoglobin A1c Calcium Phosphorus Magnesium AST Alkaline Phosphatase Total Protein Albumin Urine Creatinine Urine Total Protein 05/31/17 05/31/17 05/31/17 18:46 19:54 20:36 WBC RBC Hgb Hct MCH RDW Plt Count Lymph % (Auto) [place] % (Auto) [place] # Seg Neutrophils % Seg Neuts % (Manual) Lymphocytes % (Manual) Basophils % (Manual) Seg Neutrophils # Seg Neutrophils # Man Lymphocytes # (Manual) Basophils # (Manual) POC ABG pH POC ABG pCO2 POC ABG pO2 Sodium Potassium Chloride Carbon Dioxide BUN 29 H Creatinine 2.4 H Glucose 124 H POC Glucose 128 H 157 H Hemoglobin A1c Calcium 7.9 L Phosphorus Magnesium AST Alkaline Phosphatase Total Protein Albumin Urine Creatinine Urine Total Protein 05/31/17 06/01/17 06/01/17 21:41 03:22 04:06 WBC RBC Hgb Hct MCH RDW Plt Count Lymph % (Auto) [place] % (Auto) [place] # Seg Neutrophils % Seg Neuts % (Manual) Lymphocytes % (Manual) Basophils % (Manual) Seg Neutrophils # Seg Neutrophils # Man Lymphocytes # (Manual) Basophils # (Manual) POC ABG pH POC ABG pCO2 POC ABG pO2 Sodium Potassium Chloride Carbon Dioxide 19 L BUN 29 H Creatinine 2.6 H Glucose 205 H POC Glucose 158 H 251 H Hemoglobin A1c Calcium 7.8 L Phosphorus Magnesium AST Alkaline Phosphatase Total Protein Albumin Urine Creatinine Urine Total Protein 06/01/17 06/01/17 06/01/17 04:30 09:15 09:59 WBC 19.7 H RBC Hgb 10.0 L Hct MCH 27 L RDW 17.1 H Plt Count Lymph % (Auto) [place] % (Auto) [place] # Seg Neutrophils % Seg Neuts % (Manual) Lymphocytes % (Manual) Basophils % (Manual) Seg Neutrophils # Seg Neutrophils # Man Lymphocytes # (Manual) Basophils # (Manual) POC ABG pH 7.464 H POC ABG pCO2 31.3 L POC ABG pO2 Sodium Potassium Chloride Carbon Dioxide BUN Creatinine Glucose POC Glucose 330 H Hemoglobin A1c Calcium Phosphorus Magnesium AST Alkaline Phosphatase Total Protein Albumin Urine Creatinine Urine Total Protein 06/01/17 06/01/17 06/01/17 11:36 12:25 13:43 WBC RBC Hgb Hct MCH RDW Plt Count Lymph % (Auto) [place] % (Auto) [place] # Seg Neutrophils % Seg Neuts % (Manual) Lymphocytes % (Manual) Basophils % (Manual) Seg Neutrophils # Seg Neutrophils # Man Lymphocytes # (Manual) Basophils # (Manual) POC ABG pH POC ABG pCO2 POC ABG pO2 Sodium Potassium Chloride Carbon Dioxide BUN Creatinine Glucose POC Glucose 431 H 434 H 445 H Hemoglobin A1c Calcium Phosphorus Magnesium AST Alkaline Phosphatase Total Protein Albumin Urine Creatinine Urine Total Protein 06/01/17 06/01/17 06/01/17 14:26 15:46 16:03 WBC RBC Hgb Hct MCH RDW Plt Count Lymph % (Auto) [place] % (Auto) [place] # Seg Neutrophils % Seg Neuts % (Manual) Lymphocytes % (Manual) Basophils % (Manual) Seg Neutrophils # Seg Neutrophils # Man Lymphocytes # (Manual) Basophils # (Manual) POC ABG pH POC ABG pCO2 POC ABG pO2 Sodium Potassium Chloride Carbon Dioxide BUN Creatinine Glucose POC Glucose 310 H 292 H 244 H Hemoglobin A1c Calcium Phosphorus Magnesium AST Alkaline Phosphatase Total Protein Albumin Urine Creatinine Urine Total Protein 06/01/17 06/01/17 06/01/17 16:59 17:49 19:05 WBC RBC Hgb Hct MCH RDW Plt Count Lymph % (Auto) [place] % (Auto) [place] # Seg Neutrophils % Seg Neuts % (Manual) Lymphocytes % (Manual) Basophils % (Manual) Seg Neutrophils # Seg Neutrophils # Man Lymphocytes # (Manual) Basophils # (Manual) POC ABG pH POC ABG pCO2 POC ABG pO2 Sodium Potassium Chloride Carbon Dioxide BUN Creatinine Glucose POC Glucose 260 H 203 H 156 H Hemoglobin A1c Calcium Phosphorus Magnesium AST Alkaline Phosphatase Total Protein Albumin Urine Creatinine Urine Total Protein 06/02/17 06/02/17 06/02/17 00:09 01:06 02:31 WBC RBC Hgb Hct MCH RDW Plt Count Lymph % (Auto) [place] % (Auto) [place] # Seg Neutrophils % Seg Neuts % (Manual) Lymphocytes % (Manual) Basophils % (Manual) Seg Neutrophils # Seg Neutrophils # Man Lymphocytes # (Manual) Basophils # (Manual) POC ABG pH POC ABG pCO2 POC ABG pO2 Sodium Potassium Chloride Carbon Dioxide BUN Creatinine Glucose POC Glucose 137 H 146 H 182 H Hemoglobin A1c Calcium Phosphorus Magnesium AST Alkaline Phosphatase Total Protein Albumin Urine Creatinine Urine Total Protein 06/02/17 06/02/17 06/02/17 04:03 04:24 04:24 WBC 21.0 H RBC 3.62 L Hgb Hct 29.6 L MCH RDW 16.5 H Plt Count Lymph % (Auto) [place] % (Auto) [place] # Seg Neutrophils % Seg Neuts % (Manual) 98.0 H Lymphocytes % (Manual) 1.0 L Basophils % (Manual) Seg Neutrophils # Seg Neutrophils # Man 20.6 H Lymphocytes # (Manual) 0.2 L Basophils # (Manual) POC ABG pH POC ABG pCO2 POC ABG pO2 Sodium Potassium Chloride Carbon Dioxide 20 L BUN 36 H Creatinine 2.8 H Glucose 137 H POC Glucose 150 H Hemoglobin A1c Calcium 7.5 L Phosphorus 4.60 H Magnesium 1.50 L AST Alkaline Phosphatase 132 H Total Protein 4.1 L Albumin 1.7 L Urine Creatinine Urine Total Protein 06/02/17 06/02/17 06/02/17 05:01 05:14 06:20 WBC RBC Hgb Hct MCH RDW Plt Count Lymph % (Auto) [place] % (Auto) [place] # Seg Neutrophils % Seg Neuts % (Manual) Lymphocytes % (Manual) Basophils % (Manual) Seg Neutrophils # Seg Neutrophils # Man Lymphocytes # (Manual) Basophils # (Manual) POC ABG pH 7.517 H POC ABG pCO2 28.4 L POC ABG pO2 67 L Sodium Potassium Chloride Carbon Dioxide BUN Creatinine Glucose POC Glucose 137 H 163 H Hemoglobin A1c Calcium Phosphorus Magnesium AST Alkaline Phosphatase Total Protein Albumin Urine Creatinine Urine Total Protein 06/02/17 06/02/17 06/02/17 07:43 09:40 10:18 WBC RBC Hgb Hct MCH RDW Plt Count Lymph % (Auto) [place] % (Auto) [place] # Seg Neutrophils % Seg Neuts % (Manual) Lymphocytes % (Manual) Basophils % (Manual) Seg Neutrophils # Seg Neutrophils # Man Lymphocytes # (Manual) Basophils # (Manual) POC ABG pH POC ABG pCO2 POC ABG pO2 Sodium Potassium Chloride Carbon Dioxide BUN Creatinine Glucose POC Glucose 135 H 196 H Hemoglobin A1c Calcium Phosphorus Magnesium AST Alkaline Phosphatase Total Protein Albumin Urine Creatinine Urine Total Protein < 4 L 06/02/17 06/02/17 06/02/17 10:33 11:55 17:39 WBC RBC Hgb Hct MCH RDW Plt Count Lymph % (Auto) [place] % (Auto) [place] # Seg Neutrophils % Seg Neuts % (Manual) Lymphocytes % (Manual) Basophils % (Manual) Seg Neutrophils # Seg Neutrophils # Man Lymphocytes # (Manual) Basophils # (Manual) POC ABG pH POC ABG pCO2 POC ABG pO2 Sodium Potassium Chloride Carbon Dioxide BUN Creatinine Glucose POC Glucose 188 H 110 H 150 H Hemoglobin A1c Calcium Phosphorus Magnesium AST Alkaline Phosphatase Total Protein Albumin Urine Creatinine Urine Total Protein 06/02/17 06/02/17 06/03/17 18:12 21:32 02:02 WBC RBC Hgb Hct MCH RDW Plt Count Lymph % (Auto) [place] % (Auto) [place] # Seg Neutrophils % Seg Neuts % (Manual) Lymphocytes % (Manual) Basophils % (Manual) Seg Neutrophils # Seg Neutrophils # Man Lymphocytes # (Manual) Basophils # (Manual) POC ABG pH POC ABG pCO2 POC ABG pO2 Sodium Potassium Chloride Carbon Dioxide BUN Creatinine Glucose POC Glucose 131 H 143 H 191 H Hemoglobin A1c Calcium Phosphorus Magnesium AST Alkaline Phosphatase Total Protein Albumin Urine Creatinine Urine Total Protein 03/21/18 03/21/18 03/21/18 04:14 04:14 05:06 WBC 21.1 H RBC Hgb Hct MCH 27 L RDW 15.9 H Plt Count 447 H Lymph % (Auto) [place] % (Auto) [place] # Seg Neutrophils % Seg Neuts % (Manual) 94.0 H Lymphocytes % (Manual) 3.0 L Basophils % (Manual) Seg Neutrophils # Seg Neutrophils # Man 19.8 H Lymphocytes # (Manual) 0.6 L Basophils # (Manual) POC ABG pH POC ABG pCO2 28.6 L POC ABG pO2 112 H Sodium Potassium Chloride Carbon Dioxide 14 L BUN 45 H Creatinine 2.8 H Glucose 211 H POC Glucose Hemoglobin A1c Calcium 8.0 L Phosphorus Magnesium AST Alkaline Phosphatase Total Protein Albumin Urine Creatinine Urine Total Protein 06/03/17 06/03/17 06/03/17 06:00 10:20 13:43 WBC RBC Hgb Hct MCH RDW Plt Count Lymph % (Auto) [place] % (Auto) [place] # Seg Neutrophils % Seg Neuts % (Manual) Lymphocytes % (Manual) Basophils % (Manual) Seg Neutrophils # Seg Neutrophils # Man Lymphocytes # (Manual) Basophils # (Manual) POC ABG pH POC ABG pCO2 POC ABG pO2 Sodium Potassium Chloride Carbon Dioxide BUN Creatinine Glucose POC Glucose 224 H 226 H 296 H Hemoglobin A1c Calcium Phosphorus Magnesium AST Alkaline Phosphatase Total Protein Albumin Urine Creatinine Urine Total Protein 06/03/17 06/03/17 06/03/17 17:38 19:23 20:45 WBC RBC Hgb Hct MCH RDW Plt Count Lymph % (Auto) [place] % (Auto) [place] # Seg Neutrophils % Seg Neuts % (Manual) Lymphocytes % (Manual) Basophils % (Manual) Seg Neutrophils # Seg Neutrophils # Man Lymphocytes # (Manual) Basophils # (Manual) POC ABG pH POC ABG pCO2 POC ABG pO2 Sodium Potassium Chloride Carbon Dioxide BUN Creatinine Glucose POC Glucose 295 H 275 H 338 H Hemoglobin A1c Calcium Phosphorus Magnesium AST Alkaline Phosphatase Total Protein Albumin Urine Creatinine Urine Total Protein 06/03/17 06/03/17 06/04/17 21:50 23:08 00:16 WBC RBC Hgb Hct MCH RDW Plt Count Lymph % (Auto) [place] % (Auto) [place] # Seg Neutrophils % Seg Neuts % (Manual) Lymphocytes % (Manual) Basophils % (Manual) Seg Neutrophils # Seg Neutrophils # Man Lymphocytes # (Manual) Basophils # (Manual) POC ABG pH POC ABG pCO2 POC ABG pO2 Sodium Potassium Chloride Carbon Dioxide BUN Creatinine Glucose POC Glucose 223 H 214 H 226 H Hemoglobin A1c Calcium Phosphorus Magnesium AST Alkaline Phosphatase Total Protein Albumin Urine Creatinine Urine Total Protein 06/04/17 06/04/17 06/04/17 01:05 02:07 03:27 WBC RBC Hgb Hct MCH RDW Plt Count Lymph % (Auto) [place] % (Auto) [place] # Seg Neutrophils % Seg Neuts % (Manual) Lymphocytes % (Manual) Basophils % (Manual) Seg Neutrophils # Seg Neutrophils # Man Lymphocytes # (Manual) Basophils # (Manual) POC ABG pH POC ABG pCO2 POC ABG pO2 Sodium Potassium Chloride Carbon Dioxide BUN Creatinine Glucose POC Glucose 217 H 229 H 185 H Hemoglobin A1c Calcium Phosphorus Magnesium AST Alkaline Phosphatase Total Protein Albumin Urine Creatinine Urine Total Protein 06/04/17 06/04/17 06/04/17 03:52 04:05 04:05 WBC 19.6 H RBC Hgb Hct MCH 26 L RDW 15.6 H Plt Count 564 H Lymph % (Auto) 7.3 L [place] % (Auto) 10.8 H [place] # 2.1 H Seg Neutrophils % 81.4 H Seg Neuts % (Manual) Lymphocytes % (Manual) Basophils % (Manual) Seg Neutrophils # 15.9 H Seg Neutrophils # Man Lymphocytes # (Manual) Basophils # (Manual) POC ABG pH POC ABG pCO2 POC ABG pO2 Sodium Potassium Chloride Carbon Dioxide 17 L BUN 52 H Creatinine 2.5 H Glucose 163 H POC Glucose 181 H Hemoglobin A1c Calcium 7.9 L Phosphorus Magnesium AST Alkaline Phosphatase Total Protein Albumin Urine Creatinine Urine Total Protein 06/04/17 06/04/17 06/04/17 04:56 05:39 06:12 WBC RBC Hgb Hct MCH RDW Plt Count Lymph % (Auto) [place] % (Auto) [place] # Seg Neutrophils % Seg Neuts % (Manual) Lymphocytes % (Manual) Basophils % (Manual) Seg Neutrophils # Seg Neutrophils # Man Lymphocytes # (Manual) Basophils # (Manual) POC ABG pH 7.486 H POC ABG pCO2 26.8 L POC ABG pO2 Sodium Potassium Chloride Carbon Dioxide BUN Creatinine Glucose POC Glucose 208 H 225 H Hemoglobin A1c Calcium Phosphorus Magnesium AST Alkaline Phosphatase Total Protein Albumin Urine Creatinine Urine Total Protein 06/04/17 06/04/17 06/04/17 07:07 08:06 09:15 WBC RBC Hgb Hct MCH RDW Plt Count Lymph % (Auto) [place] % (Auto) [place] # Seg Neutrophils % Seg Neuts % (Manual) Lymphocytes % (Manual) Basophils % (Manual) Seg Neutrophils # Seg Neutrophils # Man Lymphocytes # (Manual) Basophils # (Manual) POC ABG pH POC ABG pCO2 POC ABG pO2 Sodium Potassium Chloride Carbon Dioxide BUN Creatinine Glucose POC Glucose 201 H 171 H 178 H Hemoglobin A1c Calcium Phosphorus Magnesium AST Alkaline Phosphatase Total Protein Albumin Urine Creatinine Urine Total Protein 06/04/17 06/04/17 06/04/17 10:16 12:22 17:21 WBC RBC Hgb Hct MCH RDW Plt Count Lymph % (Auto) [place] % (Auto) [place] # Seg Neutrophils % Seg Neuts % (Manual) Lymphocytes % (Manual) Basophils % (Manual) Seg Neutrophils # Seg Neutrophils # Man Lymphocytes # (Manual) Basophils # (Manual) POC ABG pH POC ABG pCO2 POC ABG pO2 Sodium Potassium Chloride Carbon Dioxide BUN Creatinine Glucose POC Glucose 191 H 188 H Hemoglobin A1c Calcium Phosphorus Magnesium AST Alkaline Phosphatase Total Protein Albumin Urine Creatinine 78.7 H Urine Total Protein 197 H 06/04/17 06/04/17 06/05/17 17:56 22:10 00:00 WBC RBC Hgb Hct MCH RDW Plt Count Lymph % (Auto) [place] % (Auto) [place] # Seg Neutrophils % Seg Neuts % (Manual) Lymphocytes % (Manual) Basophils % (Manual) Seg Neutrophils # Seg Neutrophils # Man Lymphocytes # (Manual) Basophils # (Manual) POC ABG pH POC ABG pCO2 POC ABG pO2 Sodium Potassium Chloride Carbon Dioxide 17 L BUN 55 H Creatinine 2.3 H Glucose 300 H POC Glucose 266 H 337 H Hemoglobin A1c Calcium 7.4 L Phosphorus Magnesium AST Alkaline Phosphatase Total Protein Albumin Urine Creatinine Urine Total Protein 06/05/17 06/05/17 06/05/17 03:26 04:11 05:13 WBC RBC Hgb Hct MCH RDW Plt Count Lymph % (Auto) [place] % (Auto) [place] # Seg Neutrophils % Seg Neuts % (Manual) Lymphocytes % (Manual) Basophils % (Manual) Seg Neutrophils # Seg Neutrophils # Man Lymphocytes # (Manual) Basophils # (Manual) POC ABG pH 7.586 H POC ABG pCO2 22.6 L POC ABG pO2 179 H Sodium Potassium Chloride Carbon Dioxide 19 L BUN 55 H Creatinine 2.2 H Glucose 226 H POC Glucose 220 H Hemoglobin A1c Calcium 7.7 L Phosphorus Magnesium AST Alkaline Phosphatase Total Protein Albumin Urine Creatinine Urine Total Protein 06/05/17 06/05/17 06/05/17 12:42 18:24 21:23 WBC RBC Hgb Hct MCH RDW Plt Count Lymph % (Auto) [place] % (Auto) [place] # Seg Neutrophils % Seg Neuts % (Manual) Lymphocytes % (Manual) Basophils % (Manual) Seg Neutrophils # Seg Neutrophils # Man Lymphocytes # (Manual) Basophils # (Manual) POC ABG pH POC ABG pCO2 POC ABG pO2 Sodium Potassium Chloride Carbon Dioxide BUN Creatinine Glucose POC Glucose 168 H 121 H 166 H Hemoglobin A1c Calcium Phosphorus Magnesium AST Alkaline Phosphatase Total Protein Albumin Urine Creatinine Urine Total Protein 06/06/17 06/06/17 06/06/17 00:14 04:11 06:19 WBC RBC Hgb Hct MCH RDW Plt Count Lymph % (Auto) [place] % (Auto) [place] # Seg Neutrophils % Seg Neuts % (Manual) Lymphocytes % (Manual) Basophils % (Manual) Seg Neutrophils # Seg Neutrophils # Man Lymphocytes # (Manual) Basophils # (Manual) POC ABG pH POC ABG pCO2 33.0 L POC ABG pO2 Sodium Potassium Chloride Carbon Dioxide BUN Creatinine Glucose POC Glucose 179 H 180 H Hemoglobin A1c Calcium Phosphorus Magnesium AST Alkaline Phosphatase Total Protein Albumin Urine Creatinine Urine Total Protein 06/06/17 06/06/17 06/06/17 12:19 18:38 20:01 WBC RBC Hgb Hct MCH RDW Plt Count Lymph % (Auto) [place] % (Auto) [place] # Seg Neutrophils % Seg Neuts % (Manual) Lymphocytes % (Manual) Basophils % (Manual) Seg Neutrophils # Seg Neutrophils # Man Lymphocytes # (Manual) Basophils # (Manual) POC ABG pH POC ABG pCO2 POC ABG pO2 Sodium Potassium Chloride Carbon Dioxide BUN Creatinine Glucose POC Glucose 123 H 56 L 65 L Hemoglobin A1c Calcium Phosphorus Magnesium AST Alkaline Phosphatase Total Protein Albumin Urine Creatinine Urine Total Protein 06/06/17 06/07/17 06/07/17 23:51 04:25 05:29 WBC RBC Hgb Hct MCH RDW Plt Count Lymph % (Auto) [place] % (Auto) [place] # Seg Neutrophils % Seg Neuts % (Manual) Lymphocytes % (Manual) Basophils % (Manual) Seg Neutrophils # Seg Neutrophils # Man Lymphocytes # (Manual) Basophils # (Manual) POC ABG pH 7.470 H POC ABG pCO2 33.6 L POC ABG pO2 Sodium Potassium Chloride Carbon Dioxide BUN Creatinine Glucose POC Glucose 118 H 183 H Hemoglobin A1c Calcium Phosphorus Magnesium AST Alkaline Phosphatase Total Protein Albumin Urine Creatinine Urine Total Protein 06/07/17 06/07/17 06/07/17 07:51 12:00 18:08 WBC RBC Hgb Hct MCH RDW Plt Count Lymph % (Auto) [place] % (Auto) [place] # Seg Neutrophils % Seg Neuts % (Manual) Lymphocytes % (Manual) Basophils % (Manual) Seg Neutrophils # Seg Neutrophils # Man Lymphocytes # (Manual) Basophils # (Manual) POC ABG pH POC ABG pCO2 POC ABG pO2 Sodium 135 L Potassium Chloride Carbon Dioxide 21 L BUN 50 H Creatinine 1.8 H Glucose 232 H POC Glucose 361 H 249 H Hemoglobin A1c Calcium 8.0 L Phosphorus Magnesium AST Alkaline Phosphatase Total Protein Albumin Urine Creatinine Urine Total Protein 06/07/17 06/08/17 06/08/17 23:53 05:25 11:50 WBC RBC Hgb Hct MCH RDW Plt Count Lymph % (Auto) [place] % (Auto) [place] # Seg Neutrophils % Seg Neuts % (Manual) Lymphocytes % (Manual) Basophils % (Manual) Seg Neutrophils # Seg Neutrophils # Man Lymphocytes # (Manual) Basophils # (Manual) POC ABG pH POC ABG pCO2 POC ABG pO2 Sodium Potassium Chloride Carbon Dioxide BUN Creatinine Glucose POC Glucose 190 H 136 H 166 H Hemoglobin A1c Calcium Phosphorus Magnesium AST Alkaline Phosphatase Total Protein Albumin Urine Creatinine Urine Total Protein 06/08/17 06/08/17 06/08/17 14:20 14:20 19:05 WBC 15.7 H RBC 3.49 L Hgb 9.4 L Hct 27.9 L MCH 27 L RDW 15.3 H Plt Count 590 H Lymph % (Auto) [place] % (Auto) [place] # Seg Neutrophils % Seg Neuts % (Manual) Lymphocytes % (Manual) Basophils % (Manual) Seg Neutrophils # Seg Neutrophils # Man Lymphocytes # (Manual) Basophils # (Manual) POC ABG pH POC ABG pCO2 POC ABG pO2 Sodium Potassium Chloride Carbon Dioxide BUN 55 H Creatinine 1.7 H Glucose 117 H POC Glucose 135 H Hemoglobin A1c Calcium Phosphorus Magnesium AST Alkaline Phosphatase Total Protein Albumin Urine Creatinine Urine Total Protein 06/08/17 06/08/17 06/09/17 21:52 23:55 04:18 WBC RBC Hgb Hct MCH RDW Plt Count Lymph % (Auto) [place] % (Auto) [place] # Seg Neutrophils % Seg Neuts % (Manual) Lymphocytes % (Manual) Basophils % (Manual) Seg Neutrophils # Seg Neutrophils # Man Lymphocytes # (Manual) Basophils # (Manual) POC ABG pH POC ABG pCO2 POC ABG pO2 Sodium Potassium Chloride Carbon Dioxide BUN 51 H Creatinine 1.6 H Glucose POC Glucose 186 H 209 H Hemoglobin A1c Calcium Phosphorus Magnesium AST Alkaline Phosphatase Total Protein Albumin Urine Creatinine Urine Total Protein 06/09/17 09:56 WBC RBC Hgb Hct MCH RDW Plt Count Lymph % (Auto) [place] % (Auto) [place] # Seg Neutrophils % Seg Neuts % (Manual) Lymphocytes % (Manual) Basophils % (Manual) Seg Neutrophils # Seg Neutrophils # Man Lymphocytes # (Manual) Basophils # (Manual) POC ABG pH POC ABG pCO2 POC ABG pO2 Sodium Potassium Chloride Carbon Dioxide BUN Creatinine Glucose POC Glucose 63 L Hemoglobin A1c Calcium Phosphorus Magnesium AST Alkaline Phosphatase Total Protein Albumin Urine Creatinine Urine Total Protein
--- NOTE | 2017-06-09 12:11 | Progress Note ---
Assessment and Plan Seizures Respiratory failure intubated on mechanical ventilation Hypoxic encephalopathy Acute renal failure Diabetes mellitus Dilated Cardiomyopathy EF 15-20 on echo this admission. Echo done 10/2016 at [facility] showed LVEF 35-40% with severe pulmonary hypertension. At that time, there was a plan to perform a LHC but this had to be cancelled due to severe gastroparesis and renal failure. Hypertension Continue medical therapy for her dilated cardiomyopathy. Subjective Date of service: 06/09/17 Principal diagnosis: coma Interval history: Awaits trach and PEG placement. Objective Vital Signs Temp Pulse Pulse Resp BP Pulse Ox 06/09/17 09:00 76 16 157/88 100 06/09/17 08:30 83 16 155/95 100 06/09/17 08:13 83 155/95 100 06/09/17 08:00 91 H 13 155/95 100 06/09/17 07:30 80 13 149/85 98 06/09/17 07:00 83 12 158/90 98 06/09/17 06:30 87 15 153/88 100 06/09/17 06:00 90 15 158/90 98 06/09/17 05:35 94 H 157/88 06/09/17 05:30 95 H 18 156/95 06/09/17 05:29 95 H 168/99 06/09/17 05:00 106 H 18 168/99 06/09/17 04:34 109 H 156/85 100 06/09/17 04:30 99 H 18 156/95 06/09/17 04:00 116 H 96 H 22 156/85 96 06/09/17 03:52 99 F 06/09/17 03:30 114 H 19 154/88 100 06/09/17 03:00 96 H 14 154/88 100 06/09/17 02:30 98 H 16 155/86 100 06/09/17 02:00 98 H 16 145/81 100 06/09/17 01:30 96 H 17 145/81 100 06/09/17 01:00 97 H 17 147/85 100 06/09/17 00:30 100 H 16 146/81 100 06/09/17 00:10 103 H 160/104 100 06/09/17 00:00 98 F 101 H 103 H 16 160/104 100 06/08/17 23:30 110 H 17 176/101 99 03/26/18 23:04 127 H 18 175/105 100 06/08/17 23:00 110 H 17 176/101 100 06/08/17 22:57 108 H 18 176/101 100 06/08/17 22:56 106 H 176/101 06/08/17 22:30 109 H 18 176/101 100 06/08/17 22:00 107 H 16 165/93 100 06/08/17 21:30 106 H 15 163/94 100 06/08/17 21:00 104 H 15 163/94 100 06/08/17 20:30 107 H 16 162/91 100 06/08/17 20:12 107 H 178/103 98 06/08/17 20:00 117 H 106 H 18 171/96 99 06/08/17 19:00 113 H 17 148/78 100 06/08/17 18:00 100 H 18 151/85 100 06/08/17 17:00 98.6 F 105 H 20 151/85 100 06/08/17 16:00 102 H 20 139/80 100 06/08/17 15:59 102 H 18 151/85 100 06/08/17 15:33 100 H 151/85 06/08/17 15:00 95 H 16 139/80 100 06/08/17 14:00 94 H 17 142/77 100 06/08/17 13:01 97.4 F L 06/08/17 13:00 97 H 15 159/87 100 - Physical Examination General: Other (intubated on the vent.) Cardiac: Positive: Reg Rate and Rhythm - Labs and Meds Coagulation 06/09/17 Range/Units 04:18 PT 12.4 (12.2-14.9) Sec. INR 0.88 (0.87-1.13) CBC 06/08/17 Range/Units 14:20 WBC 15.7 H (4.5-11.0) K/mm3 RBC 3.49 L (3.65-5.03) M/mm3 Hgb 9.4 L (10.1-14.3) gm/dl Hct 27.9 L (30.3-42.9) % Plt Count 590 H (140-440) K/mm3 Comprehensive Metabolic Panel 06/08/17 06/09/17 Range/Units 14:20 04:18 Sodium 138 140 (137-145) mmol/L Potassium 3.9 3.7 (3.6-5.0) mmol/L Chloride 101.7 103.5 (98-107) mmol/L Carbon Dioxide 22 22 (22-30) mmol/L BUN 55 H 51 H (7-17) mg/dL Creatinine 1.7 H 1.6 H (0.7-1.2) mg/dL Glucose 117 H 95 (65-100) mg/dL Calcium 8.6 8.5 (8.4-10.2) mg/dL - Imaging and Cardiology EKG: report reviewed (sinus tachycardia)
[2017-06-09] MEDS ORDERED: SUBLIMAZE IV ONE (13:00)
[2017-06-09] MEDS ORDERED: VERSED IV ONE (13:00)
[2017-06-09] MEDS ORDERED: DIPRIVAN 10 MG/ML IV ONE (13:00)
[2017-06-09] MEDS ORDERED: NEO SYNEPHRINE/NS Syringe(OR USE) IV ONE (13:00)
[2017-06-09] MEDS ORDERED: ATROPINE IV ONE (13:00)
[2017-06-09] MEDS ORDERED: D5/0.45NS 1,000 ML IV SCH (13:00)
[2017-06-09] MEDS ORDERED: NORCURON IV ONE (13:00)
[2017-06-09] MEDS ORDERED: WATER FOR IRRIG STERILE IR ONE (14:26)
[2017-06-09] MEDS ORDERED: NACL 0.9% 1000 ML 1,000 ML ONE (14:40)
--- NOTE | 2017-06-09 16:15 | Event Note ---
Date: 06/09/17 Attempted to do trach and PEG today. We had everything set-up and ready to go. Timeout was performed. conscious sedation was ordered by me. After giving her 4mg VSD, 100mcg FTL, 100mg propofol, and 10mg vecuronium in a step-arnold manner, she had absolutely no change in her clinical status. It was apparent that the IV was not working. We had no other access in order to continue the case. We had not made any changes with her tubes or made any incisions. I decided to abort the procedure until we had better access. Instructions were given to the nurse for monitoring purposes. We also advised that they monitor the left arm for any signs of increased swelling or skin compromise. The left arm was swollen , but this was reported to us that it had been that way. The nurse did not feel as though it had changed. I advised that the arm be kept elevated. We also advised the patient be kept on a rate on the vent in case there was a late effect of the vecuronium. The family and Dr. Pate were updated by Dr. Lazo. Pt was stable when we left. We will reschedule the trach/PEG once IV access is re-established.
[2017-06-09] MEDS: PEPCID PO SCH ×2 (16:40→21:22)
[2017-06-09] MEDS: COREG PO SCH ×2 (16:40→23:30)
[2017-06-09] MEDS: ALDACTONE PO SCH (16:40)
--- NOTE | 2017-06-09 17:59 | Progress Note ---
Assessment and Plan - Patient Problems (1) Acute renal failure with tubular necrosis Current Visit: Yes Status: Acute Plan to address problem: Non-Oliguric Acute renal failure/acute tubular necrosis. Kidney function improving. Follow kidney function and electrolytes on diuretics. (2) Acute respiratory failure Current Visit: Yes Status: Acute Qualifiers: Respiratory failure complication: hypoxia Qualified Code(s): J96.01 - Acute respiratory failure with hypoxia Plan to address problem: Ventilator management by primary attending (3) Acute systolic heart failure Current Visit: Yes Status: Acute Plan to address problem: Continue diuretics and beta jas. Continue spironolactone and monitor fluid balance. ARAM inhibitor allergy noted (4) Hyperosmolar non-ketotic state in patient with type 2 diabetes mellitus Current Visit: Yes Status: Acute Plan to address problem: Blood sugar management by primary attending (5) Hypertension Current Visit: Yes Status: Acute Qualifiers: Hypertension type: essential hypertension Qualified Code(s): I10 - Essential (primary) hypertension Plan to address problem: Blood pressure has improved. Follow blood pressure on current medications Subjective Date of service: 06/09/17 Principal diagnosis: coma Interval history: Patient seen lying in bed in the intensive care unit. Intubated on ventilator. Not communicating. Not following commands. No family at bedside Vent settings CMV 450/10/28% PEEP of 5 Objective - Exam Narrative Exam: Young -[place] female lying in bed intubated on ventilator HEENT: NCAT, endotracheal tube intact, orogastric tube intact Neck: Supple, no venous distention CVS: S1S2 RRR with no murmur, rub or gallop Chest: Lungs breath sounds with Low pitched rhonchi bilaterally Abdomen: Protuberant, soft, nontender, no organomegaly, bowel sounds are present Extremities: 1+ bilateral edema both upper and lower extremities Neuro: Eyes open, not following commands - Vital Signs Vital signs: Vital Signs - 12hr 06/09/17 06/09/17 06/09/17 06:00 06:30 07:00 Temperature Pulse Rate 90 87 83 Respiratory 15 15 12 Rate Blood Pressure 158/90 153/88 158/90 O2 Sat by Pulse 98 100 98 Oximetry 06/09/17 06/09/17 06/09/17 07:30 08:00 08:13 Temperature 97.8 F Pulse Rate 80 91 H 83 Respiratory 13 13 Rate Blood Pressure 149/85 155/95 155/95 O2 Sat by Pulse 98 100 100 Oximetry 06/09/17 06/09/17 06/09/17 08:30 09:00 09:30 Temperature Pulse Rate 83 76 78 Respiratory 16 16 16 Rate Blood Pressure 155/95 157/88 146/81 O2 Sat by Pulse 100 100 99 Oximetry 06/09/17 06/09/17 06/09/17 10:00 10:30 11:00 Temperature Pulse Rate 110 H 80 90 Respiratory 22 16 17 Rate Blood Pressure 148/84 205/133 168/97 O2 Sat by Pulse 100 99 100 Oximetry 06/09/17 06/09/17 06/09/17 11:30 12:00 12:15 Temperature Pulse Rate 94 H 87 101 H Respiratory 17 16 19 Rate Blood Pressure 168/97 169/94 161/89 O2 Sat by Pulse 100 100 100 Oximetry 06/09/17 06/09/17 06/09/17 12:30 13:00 13:30 Temperature Pulse Rate 100 H 92 H 92 H Respiratory 20 18 16 Rate Blood Pressure 161/89 177/99 166/93 O2 Sat by Pulse 100 100 100 Oximetry 06/09/17 06/09/17 06/09/17 14:00 14:45 16:22 Temperature Pulse Rate 89 104 H 95 H Respiratory 17 19 Rate Blood Pressure 167/93 174/105 147/87 O2 Sat by Pulse 100 100 100 Oximetry - Lab 06/08/17 14:20 06/09/17 04:18 Most recent lab results Calcium 8.5 mg/dL (8.4-10.2) 06/09/17 04:18 Phosphorus 4.40 mg/dL (2.5-4.5) 06/07/17 07:51 Magnesium 1.70 mg/dL (1.7-2.3) 06/07/17 07:51 Urine Creatinine 78.7 mg/dL (0.1-20.0) H 06/04/17 17:21 Urine Sodium 10 mmol/L 06/02/17 10:18 Urine Total Protein 197 mg/dL (5-11.8) H 06/04/17 17:21
[2017-06-09] MEDS: KEPPRA PO SCH ×2 (18:00→21:23)
[2017-06-09] MEDS: ZAROXOLYN PO SCH ×2 (18:01→21:22)
[2017-06-10] MEDS: COREG PO SCH ×3 (00:15→22:19)
[2017-06-10] MEDS: HumaLOG SUB-Q SCH ×4 (00:15→18:58)
[2017-06-10 05:11] LABS: Calcium 8.5 mg/dL (8.4-10.2)
[2017-06-10 05:18] LABS: Hematocrit 23.6 % (30.3-42.9); Hemoglobin 8.1 gm/dl (10.1-14.3); Mean Corpuscular HGB Conc 35 % (30-34); Mean Corpuscular Hemoglobin 27 pg (28-32); Mean Corpuscular Volume 79 fl (79-97); Platelet Count 500 K/mm3 (140-440); Red Blood Count 2.99 M/mm3 (3.65-5.03); Red Cell Distribution Width 15.4 % (13.2-15.2)
[2017-06-10] MEDS: LASIX IV SCH ×2 (05:43→18:19)
[2017-06-10] MEDS: APRESOLINE PO SCH ×3 (05:43→22:19)
[2017-06-10] MEDS: ISORDIL TITRADOSE PO SCH ×3 (05:44→22:18)
[2017-06-10] MEDS: NAMENDA PO SCH ×2 (05:49→18:19)
--- NOTE | 2017-06-10 08:04 | Progress Note ---
Assessment and Plan Assessment and plan: 36-year-old -[place] female was admitted to the floor for seizure episode, altered mental status, acute hypoxic respiratory failure, patient was intubated in the emergency department patient had PEA and resuscitated successfully. 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 -Creatinine 1.8 today Nephrology following Hypertension. BP improved on increasing Hydralazine to 50mg q 8hrs. DVT prophylaxis with Lovenox Disposition - Continue ICU care. poor prognosis POOR PROGNOSIS History Interval history: Still intubated, Unresponsive Hospitalist Physical - Physical exam Narrative exam: Gen appearance: Intubated, lying in bed, obese HEENT: facial edema, swollen tongue,intubated orally Neck:supple, no JVD Lungs: Coarse breath sounds bilaterally, no wheeze Heart: S1 and S2 regular, no murmurs, rubs or gallop Abdomen: soft, non tender, non distended, normal bowel sounds Ext: Edema both upper and lower extremities, no cyanosis Neuro: Intubated, unresponsive - Constitutional Vitals: Temp Pulse Resp BP Pulse Ox 97.2 F L 88 16 130/73 100 06/10/17 04:00 06/10/17 07:48 06/10/17 07:48 06/10/17 07:31 06/10/17 07:31 General appearance: Present: other (unresponsive, on the ventilator) Results - Labs CBC & Chem 7: 06/10/17 04:28 06/10/17 04:28 Labs: Laboratory Last Values WBC 15.1 K/mm3 (4.5-11.0) H 06/10/17 04:28 RBC 2.99 M/mm3 (3.65-5.03) L 06/10/17 04:28 Hgb 8.1 gm/dl (10.1-14.3) L 06/10/17 04:28 Hct 23.6 % (30.3-42.9) L 06/10/17 04:28 MCV 79 fl (79-97) 06/10/17 04:28 MCH 27 pg (28-32) L 06/10/17 04:28 MCHC 35 % (30-34) H 06/10/17 04:28 RDW 15.4 % (13.2-15.2) H 06/10/17 04:28 Plt Count 500 K/mm3 (140-440) H 06/10/17 04:28 Lymph % (Auto) 7.3 % (13.4-35.0) L 06/04/17 04:05 [place] % (Auto) 10.8 % (0.0-7.3) H 06/04/17 04:05 Eos % (Auto) 0.1 % (0.0-4.3) 06/04/17 04:05 Baso % (Auto) 0.4 % (0.0-1.8) 06/04/17 04:05 Lymph # 1.4 K/mm3 (1.2-5.4) 06/04/17 04:05 [place] # 2.1 K/mm3 (0.0-0.8) H 06/04/17 04:05 Eos # 0.0 K/mm3 (0.0-0.4) 06/04/17 04:05 Baso # 0.1 K/mm3 (0.0-0.1) 06/04/17 04:05 Add Manual Diff Complete 06/03/17 04:14 Total Counted 100 06/03/17 04:14 Seg Neutrophils % 81.4 % (40.0-70.0) H 06/04/17 04:05 Seg Neuts % (Manual) 94.0 % (40.0-70.0) H 06/03/17 04:14 Band Neutrophils % 0 % 06/03/17 04:14 Lymphocytes % (Manual) 3.0 % (13.4-35.0) L 06/03/17 04:14 Reactive Lymphs % (Man) 0 % 06/03/17 04:14 Monocytes % (Manual) 3.0 % (0.0-7.3) 06/03/17 04:14 Eosinophils % (Manual) 0 % (0.0-4.3) 06/03/17 04:14 Basophils % (Manual) 0 % (0.0-1.8) 06/03/17 04:14 Metamyelocytes % 0 % 06/03/17 04:14 Myelocytes % 0 % 06/03/17 04:14 Promyelocytes % 0 % 06/03/17 04:14 Blast Cells % 0 % 06/03/17 04:14 Nucleated RBC % Not Reportable 06/03/17 04:14 Seg Neutrophils # 15.9 K/mm3 (1.8-7.7) H 06/04/17 04:05 Seg Neutrophils # Man 19.8 K/mm3 (1.8-7.7) H 06/03/17 04:14 Band Neutrophils # 0.0 K/mm3 06/03/17 04:14 Lymphocytes # (Manual) 0.6 K/mm3 (1.2-5.4) L 06/03/17 04:14 Abs React Lymphs (Man) 0.0 K/mm3 06/03/17 04:14 Monocytes # (Manual) 0.6 K/mm3 (0.0-0.8) 06/03/17 04:14 Eosinophils # (Manual) 0.0 K/mm3 (0.0-0.4) 06/03/17 04:14 Basophils # (Manual) 0.0 K/mm3 (0.0-0.1) 06/03/17 04:14 Metamyelocytes # 0.0 K/mm3 06/03/17 04:14 Myelocytes # 0.0 K/mm3 06/03/17 04:14 Promyelocytes # 0.0 K/mm3 06/03/17 04:14 Blast Cells # 0.0 K/mm3 06/03/17 04:14 WBC Morphology Not Reportable 06/03/17 04:14 Hypersegmented Neuts Not Reportable 06/03/17 04:14 Hyposegmented Neuts Not Reportable 06/03/17 04:14 Hypogranular Neuts Not Reportable 06/03/17 04:14 Smudge Cells Not Reportable 06/03/17 04:14 Toxic Granulation Not Reportable 06/03/17 04:14 Toxic Vacuolation Not Reportable 06/03/17 04:14 Dohle Bodies Not Reportable 06/03/17 04:14 Pelger-Huet Anomaly Not Reportable 06/03/17 04:14 Don Rods Not Reportable 06/03/17 04:14 Platelet Estimate Consistent w auto 06/03/17 04:14 Clumped Platelets Not Reportable 06/03/17 04:14 Plt Clumps, EDTA Not Reportable 06/03/17 04:14 Large Platelets Not Reportable 06/03/17 04:14 Giant Platelets Not Reportable 06/03/17 04:14 Platelet Satelliting Not Reportable 06/03/17 04:14 Plt Morphology Comment Not Reportable 06/03/17 04:14 RBC Morphology Not Reportable 06/03/17 04:14 Dimorphic RBCs Not Reportable 06/03/17 04:14 Polychromasia Not Reportable 06/03/17 04:14 Hypochromasia Not Reportable 06/03/17 04:14 Poikilocytosis Not Reportable 06/03/17 04:14 Anisocytosis Not Reportable 06/03/17 04:14 Microcytosis Not Reportable 06/03/17 04:14 Macrocytosis Not Reportable 06/03/17 04:14 Spherocytes Not Reportable 06/03/17 04:14 Pappenheimer Bodies Not Reportable 06/03/17 04:14 Sickle Cells Not Reportable 06/03/17 04:14 Target Cells Not Reportable 06/03/17 04:14 Tear Drop Cells Not Reportable 06/03/17 04:14 Ovalocytes Not Reportable 06/03/17 04:14 Helmet Cells Not Reportable 06/03/17 04:14 [place] Bodies Not Reportable 06/03/17 04:14 [place] Rings Not Reportable 06/03/17 04:14 Cecy Cells Not Reportable 06/03/17 04:14 Bite Cells Not Reportable 06/03/17 04:14 Crenated Cell Not Reportable 06/03/17 04:14 Elliptocytes Not Reportable 06/03/17 04:14 Acanthocytes (Spur) Not Reportable 06/03/17 04:14 Rouleaux Not Reportable 06/03/17 04:14 Hemoglobin C Crystals Not Reportable 06/03/17 04:14 Schistocytes Not Reportable 06/03/17 04:14 Malaria parasites Not Reportable 06/03/17 04:14 Fadi Bodies Not Reportable 06/03/17 04:14 Hem Pathologist Commnt No 06/03/17 04:14 PT 12.4 Sec. (12.2-14.9) 06/09/17 04:18 INR 0.88 (0.87-1.13) 06/09/17 04:18 POC ABG pH 7.461 (7.35-7.45) H 06/10/17 03:24 POC ABG pCO2 36.6 (35-45) 06/10/17 03:24 POC ABG pO2 131 (80-105) H 06/10/17 03:24 POC ABG HCO3 26.1 06/10/17 03:24 POC ABG Total CO2 27 06/10/17 03:24 POC ABG O2 Sat 99 06/10/17 03:24 POC ABG Base Excess 2 06/10/17 03:24 VBG pH 7.327 (7.320-7.420) 05/30/17 10:43 FiO2 45 % 06/10/17 03:24 Sodium 140 mmol/L (137-145) 06/10/17 04:28 Potassium 3.9 mmol/L (3.6-5.0) 06/10/17 04:28 Chloride 102.9 mmol/L (98-107) 06/10/17 04:28 Carbon Dioxide 24 mmol/L (22-30) 06/10/17 04:28 Anion Gap 17 mmol/L 06/10/17 04:28 BUN 53 mg/dL (7-17) H 06/10/17 04:28 Creatinine 1.8 mg/dL (0.7-1.2) H 06/10/17 04:28 Estimated GFR 39 ml/min 06/10/17 04:28 BUN/Creatinine Ratio 29 % 06/10/17 04:28 Glucose 185 mg/dL (65-100) H 06/10/17 04:28 POC Glucose 190 (70-105) H 06/10/17 05:10 Hemoglobin A1c 9.7 % (4-6) H 05/31/17 05:45 Calcium 8.5 mg/dL (8.4-10.2) 06/10/17 04:28 Phosphorus 4.40 mg/dL (2.5-4.5) 06/07/17 07:51 Magnesium 1.70 mg/dL (1.7-2.3) 06/07/17 07:51 Total Bilirubin 0.50 mg/dL (0.1-1.2) 06/02/17 04:24 AST 23 units/L (5-40) 06/02/17 04:24 ALT 14 units/L (7-56) 06/02/17 04:24 Alkaline Phosphatase 132 units/L (35-129) H 06/02/17 04:24 Total Protein 4.1 g/dL (6.3-8.2) L 06/02/17 04:24 Albumin 1.7 g/dL (3.9-5) L 06/02/17 04:24 Albumin/Globulin Ratio 0.7 % 06/02/17 04:24 Urine Color Yellow (Yellow) 05/30/17 15:04 Urine Turbidity Clear (Clear) 05/30/17 15:04 Urine pH 7.0 (5.0-7.0) 05/30/17 15:04 Ur Specific [place] 1.021 (1.003-1.030) 05/30/17 15:04 Urine Protein >500 mg/dL (Negative) 05/30/17 15:04 Urine Glucose (UA) >=500 mg/dL (Negative) 05/30/17 15:04 Urine Ketones Tr mg/dL (Negative) 05/30/17 15:04 Urine Blood Sm (Negative) 05/30/17 15:04 Urine Nitrite Neg (Negative) 05/30/17 15:04 Urine Bilirubin Neg (Negative) 05/30/17 15:04 Urine Urobilinogen < 2.0 mg/dL (<2.0) 05/30/17 15:04 Ur Leukocyte Esterase Neg (Negative) 05/30/17 15:04 Urine WBC (Auto) 2.0 /HPF (0.0-6.0) 05/30/17 15:04 Urine RBC (Auto) 5.0 /HPF (0.0-6.0) 05/30/17 15:04 Urine Bacteria (Auto) 1+ /HPF (Negative) 05/30/17 15:04 Urine Mucus Few /HPF 05/30/17 15:04 Urine Creatinine 78.7 mg/dL (0.1-20.0) H 06/04/17 17:21 Urine Sodium 10 mmol/L 06/02/17 10:18 Urine Total Protein 197 mg/dL (5-11.8) H 06/04/17 17:21 Urine Opiates Screen Presumptive negative 05/30/17 15:04 Urine Methadone Screen Presumptive negative 05/30/17 15:04 Ur Barbiturates Screen Presumptive negative 05/30/17 15:04 Levetiracetam 21.2 mcg/mL 05/30/17 08:59 Ur Phencyclidine Scrn Presumptive negative 05/30/17 15:04 Ur Amphetamines Screen Presumptive negative 05/30/17 15:04 U Benzodiazepines Scrn Presumptive negative 05/30/17 15:04 Urine Cocaine Screen Presumptive negative 05/30/17 15:04 U Marijuana (THC) Screen Presumptive positive 05/30/17 15:04 Drugs of Abuse Note Disclamer 05/30/17 15:04
--- NOTE | 2017-06-10 11:02 | Progress Note ---
Assessment and Plan - Patient Problems (1) Acute renal failure with tubular necrosis Current Visit: Yes Status: Acute Plan to address problem: Non-Oliguric Acute renal failure/acute tubular necrosis. Kidney function marginally worse. Follow kidney function and electrolytes on diuretics. (2) Acute respiratory failure Current Visit: Yes Status: Acute Qualifiers: Respiratory failure complication: hypoxia Qualified Code(s): J96.01 - Acute respiratory failure with hypoxia Plan to address problem: Ventilator management by primary attending (3) Acute systolic heart failure Current Visit: Yes Status: Acute Plan to address problem: Continue diuretics and beta jas. Continue spironolactone and monitor fluid balance. ARAM inhibitor allergy noted (4) Hyperosmolar non-ketotic state in patient with type 2 diabetes mellitus Current Visit: Yes Status: Acute Plan to address problem: Blood sugar management by primary attending (5) Hypertension Current Visit: Yes Status: Acute Qualifiers: Hypertension type: essential hypertension Qualified Code(s): I10 - Essential (primary) hypertension Plan to address problem: Blood pressure has improved. Follow blood pressure on current medications Subjective Date of service: 06/10/17 Principal diagnosis: coma, acute kidney injury Interval history: Patient seen lying in bed in the intensive care unit. Intubated on ventilator. Not communicating. Not following commands. No family at bedside Vent settings CMV 450/12/35% PEEP of 5 Objective - Exam Narrative Exam: Young -[place] female lying in bed intubated on ventilator HEENT: NCAT, endotracheal tube intact, orogastric tube intact Neck: Supple, no venous distention CVS: S1S2 RRR with no murmur, rub or gallop Chest: Coarse breath sounds with Low pitched rhonchi bilaterally Abdomen: Protuberant, soft, nontender, no organomegaly, bowel sounds are present Extremities: 1+ bilateral edema both upper and lower extremities Neuro: Eyes open, not following commands - Vital Signs Vital signs: Vital Signs - 12hr 06/09/17 06/09/17 06/09/17 23:25 23:30 23:44 Temperature Pulse Rate 108 H 112 H 93 H Pulse Rate [ From Monitor] Respiratory 14 18 14 Rate Blood Pressure 148/86 119/66 119/66 O2 Sat by Pulse 100 100 100 Oximetry 06/09/17 06/10/17 06/10/17 23:49 00:00 00:15 Temperature 97.5 F L Pulse Rate 110 H 97 H Pulse Rate [ From Monitor] Respiratory 15 15 Rate Blood Pressure 160/92 160/92 O2 Sat by Pulse 100 100 Oximetry 06/10/17 06/10/17 06/10/17 00:30 01:01 01:30 Temperature Pulse Rate 94 H 106 H 89 Pulse Rate [ From Monitor] Respiratory 15 17 15 Rate Blood Pressure 158/94 148/91 135/74 O2 Sat by Pulse 100 100 100 Oximetry 06/10/17 06/10/17 06/10/17 01:35 02:00 02:30 Temperature Pulse Rate 89 100 H 100 H Pulse Rate [ From Monitor] Respiratory 15 18 17 Rate Blood Pressure 142/82 148/87 O2 Sat by Pulse 100 100 100 Oximetry 06/10/17 06/10/17 06/10/17 03:01 03:11 03:15 Temperature Pulse Rate 86 99 H Pulse Rate [ From Monitor] Respiratory 14 3 L 15 Rate Blood Pressure 114/66 114/66 O2 Sat by Pulse 100 100 100 Oximetry 06/10/17 06/10/17 06/10/17 03:30 04:00 04:01 Temperature 97.2 F L Pulse Rate 102 H 83 Pulse Rate [ From Monitor] Respiratory 16 12 Rate Blood Pressure 128/77 107/61 O2 Sat by Pulse 100 100 Oximetry 06/10/17 06/10/17 06/10/17 04:15 04:31 05:01 Temperature Pulse Rate 93 H 80 Pulse Rate [ From Monitor] Respiratory 15 12 12 Rate Blood Pressure 132/79 124/68 O2 Sat by Pulse 100 100 100 Oximetry 06/10/17 06/10/17 06/10/17 05:31 05:43 05:44 Temperature Pulse Rate 105 H 94 H 90 Pulse Rate [ From Monitor] Respiratory 21 Rate Blood Pressure 124/68 125/74 125/74 O2 Sat by Pulse 100 Oximetry 06/10/17 06/10/17 06/10/17 06:01 06:09 06:30 Temperature Pulse Rate 83 83 82 Pulse Rate [ From Monitor] Respiratory 12 15 14 Rate Blood Pressure 125/77 130/73 O2 Sat by Pulse 100 100 100 Oximetry 06/10/17 06/10/17 06/10/17 07:00 07:31 07:48 Temperature Pulse Rate 84 94 H Pulse Rate [ 88 From Monitor] Respiratory 14 16 16 Rate Blood Pressure 131/77 130/73 O2 Sat by Pulse 100 100 Oximetry 06/10/17 06/10/17 08:00 08:01 Temperature 97.4 F L Pulse Rate 89 Pulse Rate [ From Monitor] Respiratory 16 Rate Blood Pressure 146/84 O2 Sat by Pulse 100 Oximetry - Lab 06/10/17 04:28 06/10/17 04:28 Most recent lab results Calcium 8.5 mg/dL (8.4-10.2) 06/10/17 04:28 Phosphorus 4.40 mg/dL (2.5-4.5) 06/07/17 07:51 Magnesium 1.70 mg/dL (1.7-2.3) 06/07/17 07:51 Urine Creatinine 78.7 mg/dL (0.1-20.0) H 06/04/17 17:21 Urine Sodium 10 mmol/L 06/02/17 10:18 Urine Total Protein 197 mg/dL (5-11.8) H 06/04/17 17:21
--- NOTE | 2017-06-10 11:21 | Progress Note ---
Subjective Date of service: 06/10/17 Principal diagnosis: coma, acute kidney injury Objective Vital Signs - 12hr 06/09/17 06/09/17 06/09/17 23:25 23:30 23:44 Temperature Pulse Rate 108 H 112 H 93 H Pulse Rate [ From Monitor] Respiratory 14 18 14 Rate Blood Pressure 148/86 119/66 119/66 O2 Sat by Pulse 100 100 100 Oximetry 06/09/17 06/10/17 06/10/17 23:49 00:00 00:15 Temperature 97.5 F L Pulse Rate 110 H 97 H Pulse Rate [ From Monitor] Respiratory 15 15 Rate Blood Pressure 160/92 160/92 O2 Sat by Pulse 100 100 Oximetry 06/10/17 06/10/17 06/10/17 00:30 01:01 01:30 Temperature Pulse Rate 94 H 106 H 89 Pulse Rate [ From Monitor] Respiratory 15 17 15 Rate Blood Pressure 158/94 148/91 135/74 O2 Sat by Pulse 100 100 100 Oximetry 06/10/17 06/10/17 06/10/17 01:35 02:00 02:30 Temperature Pulse Rate 89 100 H 100 H Pulse Rate [ From Monitor] Respiratory 15 18 17 Rate Blood Pressure 142/82 148/87 O2 Sat by Pulse 100 100 100 Oximetry 06/10/17 06/10/17 06/10/17 03:01 03:11 03:15 Temperature Pulse Rate 86 99 H Pulse Rate [ From Monitor] Respiratory 14 3 L 15 Rate Blood Pressure 114/66 114/66 O2 Sat by Pulse 100 100 100 Oximetry 06/10/17 06/10/17 06/10/17 03:30 04:00 04:01 Temperature 97.2 F L Pulse Rate 102 H 83 Pulse Rate [ From Monitor] Respiratory 16 12 Rate Blood Pressure 128/77 107/61 O2 Sat by Pulse 100 100 Oximetry 06/10/17 06/10/17 06/10/17 04:15 04:31 05:01 Temperature Pulse Rate 93 H 80 Pulse Rate [ From Monitor] Respiratory 15 12 12 Rate Blood Pressure 132/79 124/68 O2 Sat by Pulse 100 100 100 Oximetry 06/10/17 06/10/17 06/10/17 05:31 05:43 05:44 Temperature Pulse Rate 105 H 94 H 90 Pulse Rate [ From Monitor] Respiratory 21 Rate Blood Pressure 124/68 125/74 125/74 O2 Sat by Pulse 100 Oximetry 06/10/17 06/10/17 06/10/17 06:01 06:09 06:30 Temperature Pulse Rate 83 83 82 Pulse Rate [ From Monitor] Respiratory 12 15 14 Rate Blood Pressure 125/77 130/73 O2 Sat by Pulse 100 100 100 Oximetry 06/10/17 06/10/17 06/10/17 07:00 07:31 07:48 Temperature Pulse Rate 84 94 H Pulse Rate [ 88 From Monitor] Respiratory 14 16 16 Rate Blood Pressure 131/77 130/73 O2 Sat by Pulse 100 100 Oximetry 06/10/17 06/10/17 08:00 08:01 Temperature 97.4 F L Pulse Rate 89 Pulse Rate [ From Monitor] Respiratory 16 Rate Blood Pressure 146/84 O2 Sat by Pulse 100 Oximetry Constitutional: other (unresponsive, critically ill on ventilator) Eyes: non-icteric ENT: oropharynx moist, other (orally intubated) Neck: supple Effort: normal Ascultation: Bilateral: diminished breath sounds, rales, rhonchi, other (coarse BS bilaterally) Percussion: Bilateral: not dull Cardiovascular: other (tachycardia, RR; no mrg) Gastrointestinal: normoactive bowel sounds, soft, non-tender Integumentary: normal Extremities: no cyanosis, no edema, pink and warm Neurologic: unable to assess, other (unresponsive) Psychiatric: other (not able to assess) CBC and BMP: 06/10/17 04:28 06/10/17 04:28 ABG, PT/INR, D-dimer: ABG POC ABG pH 7.461 (7.35-7.45) H 06/10/17 03:24 POC ABG pCO2 36.6 (35-45) 06/10/17 03:24 POC ABG pO2 131 (80-105) H 06/10/17 03:24 POC ABG HCO3 26.1 06/10/17 03:24 POC ABG Total CO2 27 06/10/17 03:24 POC ABG O2 Sat 99 06/10/17 03:24 PT/INR, D-dimer PT 12.4 Sec. (12.2-14.9) 06/09/17 04:18 INR 0.88 (0.87-1.13) 06/09/17 04:18 Abnormal lab findings: Abnormal Labs 05/30/17 05/30/17 05/30/17 07:48 07:48 08:32 WBC 11.5 H RBC Hgb Hct MCH 27 L MCHC RDW 16.3 H Plt Count Lymph % (Auto) [place] % (Auto) [place] # Seg Neutrophils % Seg Neuts % (Manual) Lymphocytes % (Manual) Basophils % (Manual) Seg Neutrophils # Seg Neutrophils # Man Lymphocytes # (Manual) Basophils # (Manual) POC ABG pH POC ABG pCO2 POC ABG pO2 Sodium 133 L Potassium Chloride 89.9 L Carbon Dioxide BUN 27 H Creatinine 2.0 H Glucose 741 H* POC Glucose > 500 H Hemoglobin A1c Calcium Phosphorus Magnesium AST Alkaline Phosphatase Total Protein Albumin Urine Creatinine Urine Total Protein 05/30/17 05/30/17 05/30/17 08:59 08:59 16:08 WBC 14.5 H RBC Hgb Hct MCH MCHC RDW 16.0 H Plt Count Lymph % (Auto) [facility] % (Auto) [place] # Seg Neutrophils % Seg Neuts % (Manual) 95.0 H Lymphocytes % (Manual) 2.0 L Basophils % (Manual) 2.0 H Seg Neutrophils # Seg Neutrophils # Man 13.8 H Lymphocytes # (Manual) 0.3 L Basophils # (Manual) 0.3 H POC ABG pH POC ABG pCO2 POC ABG pO2 Sodium 134 L 135 L Potassium 3.2 L Chloride 90.8 L 93.6 L Carbon Dioxide BUN 28 H 30 H Creatinine 2.0 H 2.1 H Glucose 742 H* 567 H* POC Glucose Hemoglobin A1c Calcium Phosphorus Magnesium AST Alkaline Phosphatase 246 H Total Protein 5.6 L Albumin 2.9 L Urine Creatinine Urine Total Protein 05/30/17 05/30/17 05/30/17 16:35 17:55 18:59 WBC RBC Hgb Hct MCH MCHC RDW Plt Count Lymph % (Auto) [place] % (Auto) [place] # Seg Neutrophils % Seg Neuts % (Manual) Lymphocytes % (Manual) Basophils % (Manual) Seg Neutrophils # Seg Neutrophils # Man Lymphocytes # (Manual) Basophils # (Manual) POC ABG pH 7.544 H POC ABG pCO2 32.0 L POC ABG pO2 155 H Sodium Potassium 3.1 L Chloride 93.9 L Carbon Dioxide BUN 30 H Creatinine 2.0 H Glucose 561 H* POC Glucose 497 H Hemoglobin A1c Calcium Phosphorus Magnesium AST Alkaline Phosphatase Total Protein Albumin Urine Creatinine Urine Total Protein 05/30/17 05/30/17 05/30/17 19:31 19:31 21:38 WBC RBC Hgb Hct MCH MCHC RDW Plt Count Lymph % (Auto) [facility] % (Auto) [place] # Seg Neutrophils % Seg Neuts % (Manual) Lymphocytes % (Manual) Basophils % (Manual) Seg Neutrophils # Seg Neutrophils # Man Lymphocytes # (Manual) Basophils # (Manual) POC ABG pH POC ABG pCO2 POC ABG pO2 Sodium 135 L Potassium 2.9 L* Chloride 93.8 L 95.4 L Carbon Dioxide 20 L BUN 29 H 30 H Creatinine 2.2 H 2.3 H Glucose 478 H 364 H POC Glucose Hemoglobin A1c Calcium Phosphorus 2.20 L D Magnesium 1.40 L AST 42 H Alkaline Phosphatase 177 H Total Protein 5.4 L Albumin 2.4 L Urine Creatinine Urine Total Protein 05/30/17 05/31/17 05/31/17 23:06 02:17 05:27 WBC RBC Hgb Hct MCH MCHC RDW Plt Count Lymph % (Auto) [facility] % (Auto) [place] # Seg Neutrophils % Seg Neuts % (Manual) Lymphocytes % (Manual) Basophils % (Manual) Seg Neutrophils # Seg Neutrophils # Man Lymphocytes # (Manual) Basophils # (Manual) POC ABG pH 7.489 H POC ABG pCO2 POC ABG pO2 Sodium Potassium 3.2 L 3.5 L Chloride Carbon Dioxide BUN 30 H 31 H Creatinine 2.5 H 2.4 H Glucose 288 H 246 H POC Glucose Hemoglobin A1c Calcium 8.3 L Phosphorus Magnesium AST Alkaline Phosphatase Total Protein Albumin Urine Creatinine Urine Total Protein 05/31/17 05/31/17 05/31/17 05:45 05:45 05:45 WBC RBC Hgb Hct MCH MCHC RDW Plt Count Lymph % (Auto) [facility] % (Auto) [place] # Seg Neutrophils % Seg Neuts % (Manual) Lymphocytes % (Manual) Basophils % (Manual) Seg Neutrophils # Seg Neutrophils # Man Lymphocytes # (Manual) Basophils # (Manual) POC ABG pH POC ABG pCO2 POC ABG pO2 Sodium Potassium Chloride Carbon Dioxide BUN 32 H 30 H Creatinine 2.5 H 2.6 H Glucose 266 H 271 H POC Glucose Hemoglobin A1c 9.7 H Calcium 8.3 L 8.2 L Phosphorus Magnesium AST Alkaline Phosphatase 145 H Total Protein 4.7 L Albumin 1.8 L Urine Creatinine Urine Total Protein 05/31/17 05/31/17 05/31/17 08:18 09:20 12:18 WBC RBC Hgb Hct MCH MCHC RDW Plt Count Lymph % (Auto) [facility] % (Auto) [place] # Seg Neutrophils % Seg Neuts % (Manual) Lymphocytes % (Manual) Basophils % (Manual) Seg Neutrophils # Seg Neutrophils # Man Lymphocytes # (Manual) Basophils # (Manual) POC ABG pH POC ABG pCO2 POC ABG pO2 Sodium Potassium Chloride Carbon Dioxide BUN Creatinine Glucose POC Glucose 300 H 254 H 170 H Hemoglobin A1c Calcium Phosphorus Magnesium AST Alkaline Phosphatase Total Protein Albumin Urine Creatinine Urine Total Protein 05/31/17 05/31/17 05/31/17 14:09 14:17 14:27 WBC RBC Hgb Hct MCH MCHC RDW Plt Count Lymph % (Auto) [facility] % (Auto) [place] # Seg Neutrophils % Seg Neuts % (Manual) Lymphocytes % (Manual) Basophils % (Manual) Seg Neutrophils # Seg Neutrophils # Man Lymphocytes # (Manual) Basophils # (Manual) POC ABG pH POC ABG pCO2 POC ABG pO2 Sodium Potassium 3.4 L Chloride 107.1 H Carbon Dioxide BUN 30 H Creatinine 2.6 H Glucose 38 L* POC Glucose < 40 L 189 H Hemoglobin A1c Calcium 7.6 L Phosphorus Magnesium AST Alkaline Phosphatase Total Protein Albumin Urine Creatinine Urine Total Protein 05/31/17 05/31/17 05/31/17 15:01 16:01 17:19 WBC RBC Hgb Hct MCH MCHC RDW Plt Count Lymph % (Auto) [facility] % (Auto) [place] # Seg Neutrophils % Seg Neuts % (Manual) Lymphocytes % (Manual) Basophils % (Manual) Seg Neutrophils # Seg Neutrophils # Man Lymphocytes # (Manual) Basophils # (Manual) POC ABG pH POC ABG pCO2 POC ABG pO2 Sodium Potassium Chloride Carbon Dioxide BUN Creatinine Glucose POC Glucose 130 H 165 H 131 H Hemoglobin A1c Calcium Phosphorus Magnesium AST Alkaline Phosphatase Total Protein Albumin Urine Creatinine Urine Total Protein 05/31/17 05/31/17 05/31/17 18:46 19:54 20:36 WBC RBC Hgb Hct MCH MCHC RDW Plt Count Lymph % (Auto) [facility] % (Auto) [place] # Seg Neutrophils % Seg Neuts % (Manual) Lymphocytes % (Manual) Basophils % (Manual) Seg Neutrophils # Seg Neutrophils # Man Lymphocytes # (Manual) Basophils # (Manual) POC ABG pH POC ABG pCO2 POC ABG pO2 Sodium Potassium Chloride Carbon Dioxide BUN 29 H Creatinine 2.4 H Glucose 124 H POC Glucose 128 H 157 H Hemoglobin A1c Calcium 7.9 L Phosphorus Magnesium AST Alkaline Phosphatase Total Protein Albumin Urine Creatinine Urine Total Protein 05/31/17 06/01/17 06/01/17 21:41 03:22 04:06 WBC RBC Hgb Hct MCH MCHC RDW Plt Count Lymph % (Auto) [facility] % (Auto) [place] # Seg Neutrophils % Seg Neuts % (Manual) Lymphocytes % (Manual) Basophils % (Manual) Seg Neutrophils # Seg Neutrophils # Man Lymphocytes # (Manual) Basophils # (Manual) POC ABG pH POC ABG pCO2 POC ABG pO2 Sodium Potassium Chloride Carbon Dioxide 19 L BUN 29 H Creatinine 2.6 H Glucose 205 H POC Glucose 158 H 251 H Hemoglobin A1c Calcium 7.8 L Phosphorus Magnesium AST Alkaline Phosphatase Total Protein Albumin Urine Creatinine Urine Total Protein 06/01/17 06/01/17 06/01/17 04:30 09:15 09:59 WBC 19.7 H RBC Hgb 10.0 L Hct MCH 27 L MCHC RDW 17.1 H Plt Count Lymph % (Auto) [facility] % (Auto) [place] # Seg Neutrophils % Seg Neuts % (Manual) Lymphocytes % (Manual) Basophils % (Manual) Seg Neutrophils # Seg Neutrophils # Man Lymphocytes # (Manual) Basophils # (Manual) POC ABG pH 7.464 H POC ABG pCO2 31.3 L POC ABG pO2 Sodium Potassium Chloride Carbon Dioxide BUN Creatinine Glucose POC Glucose 330 H Hemoglobin A1c Calcium Phosphorus Magnesium AST Alkaline Phosphatase Total Protein Albumin Urine Creatinine Urine Total Protein 06/01/17 06/01/17 06/01/17 11:36 12:25 13:43 WBC RBC Hgb Hct MCH MCHC RDW Plt Count Lymph % (Auto) [facility] % (Auto) [place] # Seg Neutrophils % Seg Neuts % (Manual) Lymphocytes % (Manual) Basophils % (Manual) Seg Neutrophils # Seg Neutrophils # Man Lymphocytes # (Manual) Basophils # (Manual) POC ABG pH POC ABG pCO2 POC ABG pO2 Sodium Potassium Chloride Carbon Dioxide BUN Creatinine Glucose POC Glucose 431 H 434 H 445 H Hemoglobin A1c Calcium Phosphorus Magnesium AST Alkaline Phosphatase Total Protein Albumin Urine Creatinine Urine Total Protein 06/01/17 06/01/17 06/01/17 14:26 15:46 16:03 WBC RBC Hgb Hct MCH MCHC RDW Plt Count Lymph % (Auto) [facility] % (Auto) [place] # Seg Neutrophils % Seg Neuts % (Manual) Lymphocytes % (Manual) Basophils % (Manual) Seg Neutrophils # Seg Neutrophils # Man Lymphocytes # (Manual) Basophils # (Manual) POC ABG pH POC ABG pCO2 POC ABG pO2 Sodium Potassium Chloride Carbon Dioxide BUN Creatinine Glucose POC Glucose 310 H 292 H 244 H Hemoglobin A1c Calcium Phosphorus Magnesium AST Alkaline Phosphatase Total Protein Albumin Urine Creatinine Urine Total Protein 06/01/17 06/01/17 06/01/17 16:59 17:49 19:05 WBC RBC Hgb Hct MCH MCHC RDW Plt Count Lymph % (Auto) [facility] % (Auto) [facility] # Seg Neutrophils % Seg Neuts % (Manual) Lymphocytes % (Manual) Basophils % (Manual) Seg Neutrophils # Seg Neutrophils # Man Lymphocytes # (Manual) Basophils # (Manual) POC ABG pH POC ABG pCO2 POC ABG pO2 Sodium Potassium Chloride Carbon Dioxide BUN Creatinine Glucose POC Glucose 260 H 203 H 156 H Hemoglobin A1c Calcium Phosphorus Magnesium AST Alkaline Phosphatase Total Protein Albumin Urine Creatinine Urine Total Protein 06/02/17 06/02/17 06/02/17 00:09 01:06 02:31 WBC RBC Hgb Hct MCH MCHC RDW Plt Count Lymph % (Auto) [facility] % (Auto) [facility] # Seg Neutrophils % Seg Neuts % (Manual) Lymphocytes % (Manual) Basophils % (Manual) Seg Neutrophils # Seg Neutrophils # Man Lymphocytes # (Manual) Basophils # (Manual) POC ABG pH POC ABG pCO2 POC ABG pO2 Sodium Potassium Chloride Carbon Dioxide BUN Creatinine Glucose POC Glucose 137 H 146 H 182 H Hemoglobin A1c Calcium Phosphorus Magnesium AST Alkaline Phosphatase Total Protein Albumin Urine Creatinine Urine Total Protein 06/02/17 06/02/17 06/02/17 04:03 04:24 04:24 WBC 21.0 H RBC 3.62 L Hgb Hct 29.6 L MCH MCHC RDW 16.5 H Plt Count Lymph % (Auto) [facility] % (Auto) [place] # Seg Neutrophils % Seg Neuts % (Manual) 98.0 H Lymphocytes % (Manual) 1.0 L Basophils % (Manual) Seg Neutrophils # Seg Neutrophils # Man 20.6 H Lymphocytes # (Manual) 0.2 L Basophils # (Manual) POC ABG pH POC ABG pCO2 POC ABG pO2 Sodium Potassium Chloride Carbon Dioxide 20 L BUN 36 H Creatinine 2.8 H Glucose 137 H POC Glucose 150 H Hemoglobin A1c Calcium 7.5 L Phosphorus 4.60 H Magnesium 1.50 L AST Alkaline Phosphatase 132 H Total Protein 4.1 L Albumin 1.7 L Urine Creatinine Urine Total Protein 06/02/17 06/02/17 06/02/17 05:01 05:14 06:20 WBC RBC Hgb Hct MCH MCHC RDW Plt Count Lymph % (Auto) [facility] % (Auto) [facility] # Seg Neutrophils % Seg Neuts % (Manual) Lymphocytes % (Manual) Basophils % (Manual) Seg Neutrophils # Seg Neutrophils # Man Lymphocytes # (Manual) Basophils # (Manual) POC ABG pH 7.517 H POC ABG pCO2 28.4 L POC ABG pO2 67 L Sodium Potassium Chloride Carbon Dioxide BUN Creatinine Glucose POC Glucose 137 H 163 H Hemoglobin A1c Calcium Phosphorus Magnesium AST Alkaline Phosphatase Total Protein Albumin Urine Creatinine Urine Total Protein 06/02/17 06/02/17 06/02/17 07:43 09:40 10:18 WBC RBC Hgb Hct MCH MCHC RDW Plt Count Lymph % (Auto) [facility] % (Auto) [facility] # Seg Neutrophils % Seg Neuts % (Manual) Lymphocytes % (Manual) Basophils % (Manual) Seg Neutrophils # Seg Neutrophils # Man Lymphocytes # (Manual) Basophils # (Manual) POC ABG pH POC ABG pCO2 POC ABG pO2 Sodium Potassium Chloride Carbon Dioxide BUN Creatinine Glucose POC Glucose 135 H 196 H Hemoglobin A1c Calcium Phosphorus Magnesium AST Alkaline Phosphatase Total Protein Albumin Urine Creatinine Urine Total Protein < 4 L 06/02/17 06/02/17 06/02/17 10:33 11:55 17:39 WBC RBC Hgb Hct MCH MCHC RDW Plt Count Lymph % (Auto) [facility] % (Auto) [facility] # Seg Neutrophils % Seg Neuts % (Manual) Lymphocytes % (Manual) Basophils % (Manual) Seg Neutrophils # Seg Neutrophils # Man Lymphocytes # (Manual) Basophils # (Manual) POC ABG pH POC ABG pCO2 POC ABG pO2 Sodium Potassium Chloride Carbon Dioxide BUN Creatinine Glucose POC Glucose 188 H 110 H 150 H Hemoglobin A1c Calcium Phosphorus Magnesium AST Alkaline Phosphatase Total Protein Albumin Urine Creatinine Urine Total Protein 06/02/17 06/02/17 06/03/17 18:12 21:32 02:02 WBC RBC Hgb Hct MCH MCHC RDW Plt Count Lymph % (Auto) [facility] % (Auto) [facility] # Seg Neutrophils % Seg Neuts % (Manual) Lymphocytes % (Manual) Basophils % (Manual) Seg Neutrophils # Seg Neutrophils # Man Lymphocytes # (Manual) Basophils # (Manual) POC ABG pH POC ABG pCO2 POC ABG pO2 Sodium Potassium Chloride Carbon Dioxide BUN Creatinine Glucose POC Glucose 131 H 143 H 191 H Hemoglobin A1c Calcium Phosphorus Magnesium AST Alkaline Phosphatase Total Protein Albumin Urine Creatinine Urine Total Protein 06/03/17 06/03/17 06/03/17 04:14 04:14 05:06 WBC 21.1 H RBC Hgb Hct MCH 27 L MCHC RDW 15.9 H Plt Count 447 H Lymph % (Auto) [facility] % (Auto) [facility] # Seg Neutrophils % Seg Neuts % (Manual) 94.0 H Lymphocytes % (Manual) 3.0 L Basophils % (Manual) Seg Neutrophils # Seg Neutrophils # Man 19.8 H Lymphocytes # (Manual) 0.6 L Basophils # (Manual) POC ABG pH POC ABG pCO2 28.6 L POC ABG pO2 112 H Sodium Potassium Chloride Carbon Dioxide 14 L BUN 45 H Creatinine 2.8 H Glucose 211 H POC Glucose Hemoglobin A1c Calcium 8.0 L Phosphorus Magnesium AST Alkaline Phosphatase Total Protein Albumin Urine Creatinine Urine Total Protein 06/03/17 06/03/17 06/03/17 06:00 10:20 13:43 WBC RBC Hgb Hct MCH MCHC RDW Plt Count Lymph % (Auto) [facility] % (Auto) [facility] # Seg Neutrophils % Seg Neuts % (Manual) Lymphocytes % (Manual) Basophils % (Manual) Seg Neutrophils # Seg Neutrophils # Man Lymphocytes # (Manual) Basophils # (Manual) POC ABG pH POC ABG pCO2 POC ABG pO2 Sodium Potassium Chloride Carbon Dioxide BUN Creatinine Glucose POC Glucose 224 H 226 H 296 H Hemoglobin A1c Calcium Phosphorus Magnesium AST Alkaline Phosphatase Total Protein Albumin Urine Creatinine Urine Total Protein 06/03/17 06/03/17 06/03/17 17:38 19:23 20:45 WBC RBC Hgb Hct MCH MCHC RDW Plt Count Lymph % (Auto) [facility] % (Auto) [facility] # Seg Neutrophils % Seg Neuts % (Manual) Lymphocytes % (Manual) Basophils % (Manual) Seg Neutrophils # Seg Neutrophils # Man Lymphocytes # (Manual) Basophils # (Manual) POC ABG pH POC ABG pCO2 POC ABG pO2 Sodium Potassium Chloride Carbon Dioxide BUN Creatinine Glucose POC Glucose 295 H 275 H 338 H Hemoglobin A1c Calcium Phosphorus Magnesium AST Alkaline Phosphatase Total Protein Albumin Urine Creatinine Urine Total Protein 06/03/17 06/03/1718 21:50 23:08 00:16 WBC RBC Hgb Hct MCH MCHC RDW Plt Count Lymph % (Auto) [facility] % (Auto) [facility] # Seg Neutrophils % Seg Neuts % (Manual) Lymphocytes % (Manual) Basophils % (Manual) Seg Neutrophils # Seg Neutrophils # Man Lymphocytes # (Manual) Basophils # (Manual) POC ABG pH POC ABG pCO2 POC ABG pO2 Sodium Potassium Chloride Carbon Dioxide BUN Creatinine Glucose POC Glucose 223 H 214 H 226 H Hemoglobin A1c Calcium Phosphorus Magnesium AST Alkaline Phosphatase Total Protein Albumin Urine Creatinine Urine Total Protein 06/04/17 06/04/17 06/04/17 01:05 02:07 03:27 WBC RBC Hgb Hct MCH MCHC RDW Plt Count Lymph % (Auto) [facility] % (Auto) [facility] # Seg Neutrophils % Seg Neuts % (Manual) Lymphocytes % (Manual) Basophils % (Manual) Seg Neutrophils # Seg Neutrophils # Man Lymphocytes # (Manual) Basophils # (Manual) POC ABG pH POC ABG pCO2 POC ABG pO2 Sodium Potassium Chloride Carbon Dioxide BUN Creatinine Glucose POC Glucose 217 H 229 H 185 H Hemoglobin A1c Calcium Phosphorus Magnesium AST Alkaline Phosphatase Total Protein Albumin Urine Creatinine Urine Total Protein 06/04/17 06/04/17 06/04/17 03:52 04:05 04:05 WBC 19.6 H RBC Hgb Hct MCH 26 L MCHC RDW 15.6 H Plt Count 564 H Lymph % (Auto) 7.[address] [place] % (Auto) 10.[address] [place] # 2.1 H Seg Neutrophils % 81.4 H Seg Neuts % (Manual) Lymphocytes % (Manual) Basophils % (Manual) Seg Neutrophils # 15.9 H Seg Neutrophils # Man Lymphocytes # (Manual) Basophils # (Manual) POC ABG pH POC ABG pCO2 POC ABG pO2 Sodium Potassium Chloride Carbon Dioxide 17 L BUN 52 H Creatinine 2.5 H Glucose 163 H POC Glucose 181 H Hemoglobin A1c Calcium 7.9 L Phosphorus Magnesium AST Alkaline Phosphatase Total Protein Albumin Urine Creatinine Urine Total Protein 06/04/17 06/04/17 06/04/17 04:56 05:39 06:12 WBC RBC Hgb Hct MCH MCHC RDW Plt Count Lymph % (Auto) [facility] % (Auto) [facility] # Seg Neutrophils % Seg Neuts % (Manual) Lymphocytes % (Manual) Basophils % (Manual) Seg Neutrophils # Seg Neutrophils # Man Lymphocytes # (Manual) Basophils # (Manual) POC ABG pH 7.486 H POC ABG pCO2 26.8 L POC ABG pO2 Sodium Potassium Chloride Carbon Dioxide BUN Creatinine Glucose POC Glucose 208 H 225 H Hemoglobin A1c Calcium Phosphorus Magnesium AST Alkaline Phosphatase Total Protein Albumin Urine Creatinine Urine Total Protein 06/04/17 06/04/17 06/04/17 07:07 08:06 09:15 WBC RBC Hgb Hct MCH MCHC RDW Plt Count Lymph % (Auto) [facility] % (Auto) [facility] # Seg Neutrophils % Seg Neuts % (Manual) Lymphocytes % (Manual) Basophils % (Manual) Seg Neutrophils # Seg Neutrophils # Man Lymphocytes # (Manual) Basophils # (Manual) POC ABG pH POC ABG pCO2 POC ABG pO2 Sodium Potassium Chloride Carbon Dioxide BUN Creatinine Glucose POC Glucose 201 H 171 H 178 H Hemoglobin A1c Calcium Phosphorus Magnesium AST Alkaline Phosphatase Total Protein Albumin Urine Creatinine Urine Total Protein 06/04/17 06/04/17 06/04/17 10:16 12:22 17:21 WBC RBC Hgb Hct MCH MCHC RDW Plt Count Lymph % (Auto) [facility] % (Auto) [facility] # Seg Neutrophils % Seg Neuts % (Manual) Lymphocytes % (Manual) Basophils % (Manual) Seg Neutrophils # Seg Neutrophils # Man Lymphocytes # (Manual) Basophils # (Manual) POC ABG pH POC ABG pCO2 POC ABG pO2 Sodium Potassium Chloride Carbon Dioxide BUN Creatinine Glucose POC Glucose 191 H 188 H Hemoglobin A1c Calcium Phosphorus Magnesium AST Alkaline Phosphatase Total Protein Albumin Urine Creatinine 78.7 H Urine Total Protein 197 H 06/04/17 06/04/17 06/05/17 17:56 22:10 00:00 WBC RBC Hgb Hct MCH MCHC RDW Plt Count Lymph % (Auto) [facility] % (Auto) [facility] # Seg Neutrophils % Seg Neuts % (Manual) Lymphocytes % (Manual) Basophils % (Manual) Seg Neutrophils # Seg Neutrophils # Man Lymphocytes # (Manual) Basophils # (Manual) POC ABG pH POC ABG pCO2 POC ABG pO2 Sodium Potassium Chloride Carbon Dioxide 17 L BUN 55 H Creatinine 2.3 H Glucose 300 H POC Glucose 266 H 337 H Hemoglobin A1c Calcium 7.4 L Phosphorus Magnesium AST Alkaline Phosphatase Total Protein Albumin Urine Creatinine Urine Total Protein 06/05/17 06/05/17 06/05/17 03:26 04:11 05:13 WBC RBC Hgb Hct MCH MCHC RDW Plt Count Lymph % (Auto) [facility] % (Auto) [facility] # Seg Neutrophils % Seg Neuts % (Manual) Lymphocytes % (Manual) Basophils % (Manual) Seg Neutrophils # Seg Neutrophils # Man Lymphocytes # (Manual) Basophils # (Manual) POC ABG pH 7.586 H POC ABG pCO2 22.6 L POC ABG pO2 179 H Sodium Potassium Chloride Carbon Dioxide 19 L BUN 55 H Creatinine 2.2 H Glucose 226 H POC Glucose 220 H Hemoglobin A1c Calcium 7.7 L Phosphorus Magnesium AST Alkaline Phosphatase Total Protein Albumin Urine Creatinine Urine Total Protein 06/05/17 06/05/17 06/05/17 12:42 18:24 21:23 WBC RBC Hgb Hct MCH MCHC RDW Plt Count Lymph % (Auto) [facility] % (Auto) [facility] # Seg Neutrophils % Seg Neuts % (Manual) Lymphocytes % (Manual) Basophils % (Manual) Seg Neutrophils # Seg Neutrophils # Man Lymphocytes # (Manual) Basophils # (Manual) POC ABG pH POC ABG pCO2 POC ABG pO2 Sodium Potassium Chloride Carbon Dioxide BUN Creatinine Glucose POC Glucose 168 H 121 H 166 H Hemoglobin A1c Calcium Phosphorus Magnesium AST Alkaline Phosphatase Total Protein Albumin Urine Creatinine Urine Total Protein 06/06/17 06/06/17 06/06/17 00:14 04:11 06:19 WBC RBC Hgb Hct MCH MCHC RDW Plt Count Lymph % (Auto) [facility] % (Auto) [facility] # Seg Neutrophils % Seg Neuts % (Manual) Lymphocytes % (Manual) Basophils % (Manual) Seg Neutrophils # Seg Neutrophils # Man Lymphocytes # (Manual) Basophils # (Manual) POC ABG pH POC ABG pCO2 33.0 L POC ABG pO2 Sodium Potassium Chloride Carbon Dioxide BUN Creatinine Glucose POC Glucose 179 H 180 H Hemoglobin A1c Calcium Phosphorus Magnesium AST Alkaline Phosphatase Total Protein Albumin Urine Creatinine Urine Total Protein 06/06/17 06/06/17 06/06/17 12:19 18:38 20:01 WBC RBC Hgb Hct MCH MCHC RDW Plt Count Lymph % (Auto) [facility] % (Auto) [facility] # Seg Neutrophils % Seg Neuts % (Manual) Lymphocytes % (Manual) Basophils % (Manual) Seg Neutrophils # Seg Neutrophils # Man Lymphocytes # (Manual) Basophils # (Manual) POC ABG pH POC ABG pCO2 POC ABG pO2 Sodium Potassium Chloride Carbon Dioxide BUN Creatinine Glucose POC Glucose 123 H 56 L 65 L Hemoglobin A1c Calcium Phosphorus Magnesium AST Alkaline Phosphatase Total Protein Albumin Urine Creatinine Urine Total Protein 06/06/17 06/07/17 06/07/17 23:51 04:25 05:29 WBC RBC Hgb Hct MCH MCHC RDW Plt Count Lymph % (Auto) [place] % (Auto) [place] # Seg Neutrophils % Seg Neuts % (Manual) Lymphocytes % (Manual) Basophils % (Manual) Seg Neutrophils # Seg Neutrophils # Man Lymphocytes # (Manual) Basophils # (Manual) POC ABG pH 7.470 H POC ABG pCO2 33.6 L POC ABG pO2 Sodium Potassium Chloride Carbon Dioxide BUN Creatinine Glucose POC Glucose 118 H 183 H Hemoglobin A1c Calcium Phosphorus Magnesium AST Alkaline Phosphatase Total Protein Albumin Urine Creatinine Urine Total Protein 06/07/17 06/07/17 06/07/17 07:51 12:00 18:08 WBC RBC Hgb Hct MCH MCHC RDW Plt Count Lymph % (Auto) [place] % (Auto) [place] # Seg Neutrophils % Seg Neuts % (Manual) Lymphocytes % (Manual) Basophils % (Manual) Seg Neutrophils # Seg Neutrophils # Man Lymphocytes # (Manual) Basophils # (Manual) POC ABG pH POC ABG pCO2 POC ABG pO2 Sodium 135 L Potassium Chloride Carbon Dioxide 21 L BUN 50 H Creatinine 1.8 H Glucose 232 H POC Glucose 361 H 249 H Hemoglobin A1c Calcium 8.0 L Phosphorus Magnesium AST Alkaline Phosphatase Total Protein Albumin Urine Creatinine Urine Total Protein 06/07/17 06/08/17 06/08/17 23:53 05:25 11:50 WBC RBC Hgb Hct MCH MCHC RDW Plt Count Lymph % (Auto) [place] % (Auto) [place] # Seg Neutrophils % Seg Neuts % (Manual) Lymphocytes % (Manual) Basophils % (Manual) Seg Neutrophils # Seg Neutrophils # Man Lymphocytes # (Manual) Basophils # (Manual) POC ABG pH POC ABG pCO2 POC ABG pO2 Sodium Potassium Chloride Carbon Dioxide BUN Creatinine Glucose POC Glucose 190 H 136 H 166 H Hemoglobin A1c Calcium Phosphorus Magnesium AST Alkaline Phosphatase Total Protein Albumin Urine Creatinine Urine Total Protein 06/08/17 06/08/17 06/08/17 14:20 14:20 19:05 WBC 15.7 H RBC 3.49 L Hgb 9.4 L Hct 27.9 L MCH 27 L MCHC RDW 15.3 H Plt Count 590 H Lymph % (Auto) [place] % (Auto) [place] # Seg Neutrophils % Seg Neuts % (Manual) Lymphocytes % (Manual) Basophils % (Manual) Seg Neutrophils # Seg Neutrophils # Man Lymphocytes # (Manual) Basophils # (Manual) POC ABG pH POC ABG pCO2 POC ABG pO2 Sodium Potassium Chloride Carbon Dioxide BUN 55 H Creatinine 1.7 H Glucose 117 H POC Glucose 135 H Hemoglobin A1c Calcium Phosphorus Magnesium AST Alkaline Phosphatase Total Protein Albumin Urine Creatinine Urine Total Protein 06/08/17 06/08/17 06/09/17 21:52 23:55 04:18 WBC RBC Hgb Hct MCH MCHC RDW Plt Count Lymph % (Auto) [place] % (Auto) [place] # Seg Neutrophils % Seg Neuts % (Manual) Lymphocytes % (Manual) Basophils % (Manual) Seg Neutrophils # Seg Neutrophils # Man Lymphocytes # (Manual) Basophils # (Manual) POC ABG pH POC ABG pCO2 POC ABG pO2 Sodium Potassium Chloride Carbon Dioxide BUN 51 H Creatinine 1.6 H Glucose POC Glucose 186 H 209 H Hemoglobin A1c Calcium Phosphorus Magnesium AST Alkaline Phosphatase Total Protein Albumin Urine Creatinine Urine Total Protein 06/09/17 06/09/17 06/09/17 09:56 12:42 18:09 WBC RBC Hgb Hct MCH MCHC RDW Plt Count Lymph % (Auto) [place] % (Auto) [place] # Seg Neutrophils % Seg Neuts % (Manual) Lymphocytes % (Manual) Basophils % (Manual) Seg Neutrophils # Seg Neutrophils # Man Lymphocytes # (Manual) Basophils # (Manual) POC ABG pH POC ABG pCO2 POC ABG pO2 Sodium Potassium Chloride Carbon Dioxide BUN Creatinine Glucose POC Glucose 63 L 142 H 166 H Hemoglobin A1c Calcium Phosphorus Magnesium AST Alkaline Phosphatase Total Protein Albumin Urine Creatinine Urine Total Protein 06/09/17 06/10/17 06/10/17 23:39 03:24 04:28 WBC 15.1 H RBC 2.99 L Hgb 8.1 L Hct 23.6 L MCH 27 L MCHC 35 H RDW 15.4 H Plt Count 500 H Lymph % (Auto) [place] % (Auto) [place] # Seg Neutrophils % Seg Neuts % (Manual) Lymphocytes % (Manual) Basophils % (Manual) Seg Neutrophils # Seg Neutrophils # Man Lymphocytes # (Manual) Basophils # (Manual) POC ABG pH 7.461 H POC ABG pCO2 POC ABG pO2 131 H Sodium Potassium Chloride Carbon Dioxide BUN Creatinine Glucose POC Glucose 284 H Hemoglobin A1c Calcium Phosphorus Magnesium AST Alkaline Phosphatase Total Protein Albumin Urine Creatinine Urine Total Protein 06/10/17 06/10/17 04:28 05:10 WBC RBC Hgb Hct MCH MCHC RDW Plt Count Lymph % (Auto) [place] % (Auto) [place] # Seg Neutrophils % Seg Neuts % (Manual) Lymphocytes % (Manual) Basophils % (Manual) Seg Neutrophils # Seg Neutrophils # Man Lymphocytes # (Manual) Basophils # (Manual) POC ABG pH POC ABG pCO2 POC ABG pO2 Sodium Potassium Chloride Carbon Dioxide BUN 53 H Creatinine 1.8 H Glucose 185 H POC Glucose 190 H Hemoglobin A1c Calcium Phosphorus Magnesium AST Alkaline Phosphatase Total Protein Albumin Urine Creatinine Urine Total Protein
--- NOTE | 2017-06-10 12:21 | Progress Note ---
Assessment and Plan Seizures Respiratory failure intubated on mechanical ventilation Hypoxic encephalopathy Acute renal failure Diabetes mellitus Dilated Cardiomyopathy EF 15-20% on echo this admission. Echo done 10/2016 at [place] showed LVEF 35-40% with severe pulmonary hypertension. At that time, there was a plan to perform a LHC but this had to be cancelled due to severe gastroparesis and renal failure. Hypertension Continue medical therapy for her dilated cardiomyopathy. Conservative cardiac management. Subjective Date of service: 06/10/17 Principal diagnosis: coma, acute kidney injury Interval history: No interval changes. Awaits trach and PEG placement. Objective Vital Signs Temp Pulse Pulse Resp BP Pulse Ox 06/10/17 08:01 89 16 146/84 100 06/10/17 08:00 97.4 F L 06/10/17 07:48 88 16 06/10/17 07:31 94 H 16 130/73 100 06/10/17 07:00 84 14 131/77 100 06/10/17 06:30 82 14 130/73 100 06/10/17 06:09 83 15 100 06/10/17 06:01 83 12 125/77 100 06/10/17 05:44 90 125/74 06/10/17 05:43 94 H 125/74 06/10/17 05:31 105 H 21 124/68 100 06/10/17 05:01 80 12 124/68 100 06/10/17 04:31 93 H 12 132/79 100 06/10/17 04:15 15 100 06/10/17 04:01 83 12 107/61 100 06/10/17 04:00 97.2 F L 06/10/17 03:30 102 H 16 128/77 100 06/10/17 03:15 15 100 06/10/17 03:11 99 H 3 L 114/66 100 06/10/17 03:01 86 14 114/66 100 06/10/17 02:30 100 H 17 148/87 100 06/10/17 02:00 100 H 18 142/82 100 06/10/17 01:35 89 15 100 06/10/17 01:30 89 15 135/74 100 06/10/17 01:01 106 H 17 148/91 100 06/10/17 00:30 94 H 15 158/94 100 06/10/17 00:15 97 H 15 160/92 100 06/10/17 00:00 110 H 15 160/92 100 06/09/17 23:49 97.5 F L 06/09/17 23:44 93 H 14 119/66 100 06/09/17 23:30 112 H 18 119/66 100 06/09/17 23:25 108 H 14 148/86 100 06/09/17 23:00 100 H 14 119/66 100 06/09/17 22:30 90 15 115/64 100 06/09/17 22:00 93 H 14 171/98 100 06/09/17 21:30 102 H 14 171/98 100 06/09/17 21:28 97 H 15 100 06/09/17 21:22 97 H 171/98 06/09/17 21:21 97 H 171/98 06/09/17 21:00 121 H 6 L 157/90 100 06/09/17 20:30 94 H 14 157/90 100 06/09/17 20:00 97.3 F L 103 H 19 141/85 100 06/09/17 19:40 89 06/09/17 19:30 89 15 121/72 100 06/09/17 19:00 94 H 12 147/82 100 06/09/17 18:30 99 H 13 202/118 100 06/09/17 18:01 87 163/94 06/09/17 18:00 86 14 163/94 100 06/09/17 17:30 87 13 153/90 100 06/09/17 17:00 89 12 145/85 100 06/09/17 16:30 91 H 12 147/87 100 06/09/17 16:22 95 H 147/87 100 06/09/17 16:00 98.7 F 97 H 18 153/89 100 06/09/17 15:30 102 H 16 185/110 100 06/09/17 15:00 99 H 16 182/110 100 06/09/17 14:45 104 H 19 174/105 100 06/09/17 14:30 99 H 17 187/111 100 06/09/17 14:00 89 17 167/93 100 06/09/17 13:30 92 H 16 166/93 100 06/09/17 13:00 92 H 18 177/99 100 06/09/17 12:30 100 H 20 161/89 100 - Physical Examination General: Other (intubated on the vent.) Cardiac: Positive: Reg Rate and Rhythm - Labs and Meds CBC 06/10/17 Range/Units 04:28 WBC 15.1 H (4.5-11.0) K/mm3 RBC 2.99 L (3.65-5.03) M/mm3 Hgb 8.1 L (10.1-14.3) gm/dl Hct 23.6 L (30.3-42.9) % Plt Count 500 H (140-440) K/mm3 Comprehensive Metabolic Panel 06/10/17 Range/Units 04:28 Sodium 140 (137-145) mmol/L Potassium 3.9 (3.6-5.0) mmol/L Chloride 102.9 (98-107) mmol/L Carbon Dioxide 24 (22-30) mmol/L BUN 53 H (7-17) mg/dL Creatinine 1.8 H (0.7-1.2) mg/dL Glucose 185 H (65-100) mg/dL Calcium 8.5 (8.4-10.2) mg/dL - Imaging and Cardiology EKG: report reviewed (sinus tachycardia)
--- NOTE | 2017-06-10 13:13 | Progress Note ---
Assessment and Plan 36 y/o female with acute respiratory failure secondary to metabolic encephalopathy, thought to be from seizures, s/p cardiac arrest. 1. Trach and Peg tomorrow 2. Continue supportive care and PSV trials 3. Overall prognosis is guarded to poor. Will likely need LTACH for transition. CCT 31 minutes. Subjective Date of service: 06/10/17 Principal diagnosis: coma, acute kidney injury Interval history: Unable to finish the trach and peg yesterday as IV infiltrated. Remains orally intubated. Mother at bedside. Objective Vital Signs - 12hr 06/10/17 06/10/17 06/10/17 01:30 01:35 02:00 Temperature Pulse Rate 89 89 100 H Pulse Rate [ From Monitor] Respiratory 15 15 18 Rate Blood Pressure 135/74 142/82 O2 Sat by Pulse 100 100 100 Oximetry 06/10/17 06/10/17 06/10/17 02:30 03:01 03:11 Temperature Pulse Rate 100 H 86 99 H Pulse Rate [ From Monitor] Respiratory 17 14 3 L Rate Blood Pressure 148/87 114/66 114/66 O2 Sat by Pulse 100 100 100 Oximetry 06/10/17 06/10/17 06/10/17 03:15 03:30 04:00 Temperature 97.2 F L Pulse Rate 102 H Pulse Rate [ From Monitor] Respiratory 15 16 Rate Blood Pressure 128/77 O2 Sat by Pulse 100 100 Oximetry 06/10/17 06/10/17 06/10/17 04:01 04:15 04:31 Temperature Pulse Rate 83 93 H Pulse Rate [ From Monitor] Respiratory 12 15 12 Rate Blood Pressure 107/61 132/79 O2 Sat by Pulse 100 100 100 Oximetry 06/10/17 06/10/17 06/10/17 05:01 05:31 05:43 Temperature Pulse Rate 80 105 H 94 H Pulse Rate [ From Monitor] Respiratory 12 21 Rate Blood Pressure 124/68 124/68 125/74 O2 Sat by Pulse 100 100 Oximetry 06/10/17 06/10/17 06/10/17 05:44 06:01 06:09 Temperature Pulse Rate 90 83 83 Pulse Rate [ From Monitor] Respiratory 12 15 Rate Blood Pressure 125/74 125/77 O2 Sat by Pulse 100 100 Oximetry 06/10/17 06/10/17 06/10/17 06:30 07:00 07:31 Temperature Pulse Rate 82 84 94 H Pulse Rate [ From Monitor] Respiratory 14 14 16 Rate Blood Pressure 130/73 131/77 130/73 O2 Sat by Pulse 100 100 100 Oximetry 06/10/17 06/10/17 06/10/17 07:48 08:00 08:01 Temperature 97.4 F L Pulse Rate 89 Pulse Rate [ 88 From Monitor] Respiratory 16 16 Rate Blood Pressure 146/84 O2 Sat by Pulse 100 Oximetry 06/10/17 12:54 Temperature Pulse Rate 71 Pulse Rate [ From Monitor] Respiratory 12 Rate Blood Pressure 131/77 O2 Sat by Pulse 100 Oximetry Constitutional: other (unresponsive, critically ill on ventilator) Eyes: non-icteric ENT: oropharynx moist, other (orally intubated) Neck: supple Effort: normal Ascultation: Bilateral: diminished breath sounds, rales, rhonchi, other (coarse BS bilaterally) Percussion: Bilateral: not dull Cardiovascular: other (tachycardia, RR; no mrg) Gastrointestinal: normoactive bowel sounds, soft, non-tender Integumentary: normal Extremities: no cyanosis, no edema, pink and warm Neurologic: unable to assess, other (unresponsive) Psychiatric: other (not able to assess) CBC and BMP: 06/10/17 04:28 06/10/17 04:28 ABG, PT/INR, D-dimer: ABG POC ABG pH 7.461 (7.35-7.45) H 06/10/17 03:24 POC ABG pCO2 36.6 (35-45) 06/10/17 03:24 POC ABG pO2 131 (80-105) H 06/10/17 03:24 POC ABG HCO3 26.1 06/10/17 03:24 POC ABG Total CO2 27 06/10/17 03:24 POC ABG O2 Sat 99 06/10/17 03:24 PT/INR, D-dimer PT 12.4 Sec. (12.2-14.9) 06/09/17 04:18 INR 0.88 (0.87-1.13) 06/09/17 04:18 Abnormal lab findings: Abnormal Labs 05/30/17 05/30/17 05/30/17 07:48 07:48 08:32 WBC 11.5 H RBC Hgb Hct MCH 27 L MCHC RDW 16.3 H Plt Count Lymph % (Auto) Leon % (Auto) Leon # Seg Neutrophils % Seg Neuts % (Manual) Lymphocytes % (Manual) Basophils % (Manual) Seg Neutrophils # Seg Neutrophils # Man Lymphocytes # (Manual) Basophils # (Manual) POC ABG pH POC ABG pCO2 POC ABG pO2 Sodium 133 L Potassium Chloride 89.9 L Carbon Dioxide BUN 27 H Creatinine 2.0 H Glucose 741 H* POC Glucose > 500 H Hemoglobin A1c Calcium Phosphorus Magnesium AST Alkaline Phosphatase Total Protein Albumin Urine Creatinine Urine Total Protein 05/30/17 05/30/17 05/30/17 08:59 08:59 16:08 WBC 14.5 H RBC Hgb Hct MCH MCHC RDW 16.0 H Plt Count Lymph % (Auto) Leon % (Auto) Leon # Seg Neutrophils % Seg Neuts % (Manual) 95.0 H Lymphocytes % (Manual) 2.0 L Basophils % (Manual) 2.0 H Seg Neutrophils # Seg Neutrophils # Man 13.8 H Lymphocytes # (Manual) 0.3 L Basophils # (Manual) 0.3 H POC ABG pH POC ABG pCO2 POC ABG pO2 Sodium 134 L 135 L Potassium 3.2 L Chloride 90.8 L 93.6 L Carbon Dioxide BUN 28 H 30 H Creatinine 2.0 H 2.1 H Glucose 742 H* 567 H* POC Glucose Hemoglobin A1c Calcium Phosphorus Magnesium AST Alkaline Phosphatase 246 H Total Protein 5.6 L Albumin 2.9 L Urine Creatinine Urine Total Protein 05/30/17 05/30/17 05/30/17 16:35 17:55 18:59 WBC RBC Hgb Hct MCH MCHC RDW Plt Count Lymph % (Auto) Leon % (Auto) Leon # Seg Neutrophils % Seg Neuts % (Manual) Lymphocytes % (Manual) Basophils % (Manual) Seg Neutrophils # Seg Neutrophils # Man Lymphocytes # (Manual) Basophils # (Manual) POC ABG pH 7.544 H POC ABG pCO2 32.0 L POC ABG pO2 155 H Sodium Potassium 3.1 L Chloride 93.9 L Carbon Dioxide BUN 30 H Creatinine 2.0 H Glucose 561 H* POC Glucose 497 H Hemoglobin A1c Calcium Phosphorus Magnesium AST Alkaline Phosphatase Total Protein Albumin Urine Creatinine Urine Total Protein 05/30/17 05/30/17 05/30/17 19:31 19:31 21:38 WBC RBC Hgb Hct MCH MCHC RDW Plt Count Lymph % (Auto) Leon % (Auto) Leon # Seg Neutrophils % Seg Neuts % (Manual) Lymphocytes % (Manual) Basophils % (Manual) Seg Neutrophils # Seg Neutrophils # Man Lymphocytes # (Manual) Basophils # (Manual) POC ABG pH POC ABG pCO2 POC ABG pO2 Sodium 135 L Potassium 2.9 L* Chloride 93.8 L 95.4 L Carbon Dioxide 20 L BUN 29 H 30 H Creatinine 2.2 H 2.3 H Glucose 478 H 364 H POC Glucose Hemoglobin A1c Calcium Phosphorus 2.20 L D Magnesium 1.40 L AST 42 H Alkaline Phosphatase 177 H Total Protein 5.4 L Albumin 2.4 L Urine Creatinine Urine Total Protein 05/30/17 05/31/17 05/31/17 23:06 02:17 05:27 WBC RBC Hgb Hct MCH MCHC RDW Plt Count Lymph % (Auto) Leon % (Auto) Leon # Seg Neutrophils % Seg Neuts % (Manual) Lymphocytes % (Manual) Basophils % (Manual) Seg Neutrophils # Seg Neutrophils # Man Lymphocytes # (Manual) Basophils # (Manual) POC ABG pH 7.489 H POC ABG pCO2 POC ABG pO2 Sodium Potassium 3.2 L 3.5 L Chloride Carbon Dioxide BUN 30 H 31 H Creatinine 2.5 H 2.4 H Glucose 288 H 246 H POC Glucose Hemoglobin A1c Calcium 8.3 L Phosphorus Magnesium AST Alkaline Phosphatase Total Protein Albumin Urine Creatinine Urine Total Protein 05/31/17 05/31/17 05/31/17 05:45 05:45 05:45 WBC RBC Hgb Hct MCH MCHC RDW Plt Count Lymph % (Auto) Leon % (Auto) Leon # Seg Neutrophils % Seg Neuts % (Manual) Lymphocytes % (Manual) Basophils % (Manual) Seg Neutrophils # Seg Neutrophils # Man Lymphocytes # (Manual) Basophils # (Manual) POC ABG pH POC ABG pCO2 POC ABG pO2 Sodium Potassium Chloride Carbon Dioxide BUN 32 H 30 H Creatinine 2.5 H 2.6 H Glucose 266 H 271 H POC Glucose Hemoglobin A1c 9.7 H Calcium 8.3 L 8.2 L Phosphorus Magnesium AST Alkaline Phosphatase 145 H Total Protein 4.7 L Albumin 1.8 L Urine Creatinine Urine Total Protein 05/31/17 05/31/17 05/31/17 08:18 09:20 12:18 WBC RBC Hgb Hct MCH MCHC RDW Plt Count Lymph % (Auto) Leon % (Auto) Leon # Seg Neutrophils % Seg Neuts % (Manual) Lymphocytes % (Manual) Basophils % (Manual) Seg Neutrophils # Seg Neutrophils # Man Lymphocytes # (Manual) Basophils # (Manual) POC ABG pH POC ABG pCO2 POC ABG pO2 Sodium Potassium Chloride Carbon Dioxide BUN Creatinine Glucose POC Glucose 300 H 254 H 170 H Hemoglobin A1c Calcium Phosphorus Magnesium AST Alkaline Phosphatase Total Protein Albumin Urine Creatinine Urine Total Protein 05/31/17 05/31/17 05/31/17 14:09 14:17 14:27 WBC RBC Hgb Hct MCH MCHC RDW Plt Count Lymph % (Auto) Leon % (Auto) Leon # Seg Neutrophils % Seg Neuts % (Manual) Lymphocytes % (Manual) Basophils % (Manual) Seg Neutrophils # Seg Neutrophils # Man Lymphocytes # (Manual) Basophils # (Manual) POC ABG pH POC ABG pCO2 POC ABG pO2 Sodium Potassium 3.4 L Chloride 107.1 H Carbon Dioxide BUN 30 H Creatinine 2.6 H Glucose 38 L* POC Glucose < 40 L 189 H Hemoglobin A1c Calcium 7.6 L Phosphorus Magnesium AST Alkaline Phosphatase Total Protein Albumin Urine Creatinine Urine Total Protein 05/31/17 05/31/17 05/31/17 15:01 16:01 17:19 WBC RBC Hgb Hct MCH MCHC RDW Plt Count Lymph % (Auto) Leon % (Auto) Leon # Seg Neutrophils % Seg Neuts % (Manual) Lymphocytes % (Manual) Basophils % (Manual) Seg Neutrophils # Seg Neutrophils # Man Lymphocytes # (Manual) Basophils # (Manual) POC ABG pH POC ABG pCO2 POC ABG pO2 Sodium Potassium Chloride Carbon Dioxide BUN Creatinine Glucose POC Glucose 130 H 165 H 131 H Hemoglobin A1c Calcium Phosphorus Magnesium AST Alkaline Phosphatase Total Protein Albumin Urine Creatinine Urine Total Protein 05/31/17 05/31/17 05/31/17 18:46 19:54 20:36 WBC RBC Hgb Hct MCH MCHC RDW Plt Count Lymph % (Auto) Leon % (Auto) Leon # Seg Neutrophils % Seg Neuts % (Manual) Lymphocytes % (Manual) Basophils % (Manual) Seg Neutrophils # Seg Neutrophils # Man Lymphocytes # (Manual) Basophils # (Manual) POC ABG pH POC ABG pCO2 POC ABG pO2 Sodium Potassium Chloride Carbon Dioxide BUN 29 H Creatinine 2.4 H Glucose 124 H POC Glucose 128 H 157 H Hemoglobin A1c Calcium 7.9 L Phosphorus Magnesium AST Alkaline Phosphatase Total Protein Albumin Urine Creatinine Urine Total Protein 05/31/17 06/01/17 06/01/17 21:41 03:22 04:06 WBC RBC Hgb Hct MCH MCHC RDW Plt Count Lymph % (Auto) Leon % (Auto) Leon # Seg Neutrophils % Seg Neuts % (Manual) Lymphocytes % (Manual) Basophils % (Manual) Seg Neutrophils # Seg Neutrophils # Man Lymphocytes # (Manual) Basophils # (Manual) POC ABG pH POC ABG pCO2 POC ABG pO2 Sodium Potassium Chloride Carbon Dioxide 19 L BUN 29 H Creatinine 2.6 H Glucose 205 H POC Glucose 158 H 251 H Hemoglobin A1c Calcium 7.8 L Phosphorus Magnesium AST Alkaline Phosphatase Total Protein Albumin Urine Creatinine Urine Total Protein 06/01/17 06/01/17 06/01/17 04:30 09:15 09:59 WBC 19.7 H RBC Hgb 10.0 L Hct MCH 27 L MCHC RDW 17.1 H Plt Count Lymph % (Auto) Leon % (Auto) Leon # Seg Neutrophils % Seg Neuts % (Manual) Lymphocytes % (Manual) Basophils % (Manual) Seg Neutrophils # Seg Neutrophils # Man Lymphocytes # (Manual) Basophils # (Manual) POC ABG pH 7.464 H POC ABG pCO2 31.3 L POC ABG pO2 Sodium Potassium Chloride Carbon Dioxide BUN Creatinine Glucose POC Glucose 330 H Hemoglobin A1c Calcium Phosphorus Magnesium AST Alkaline Phosphatase Total Protein Albumin Urine Creatinine Urine Total Protein 06/01/17 06/01/17 06/01/17 11:36 12:25 13:43 WBC RBC Hgb Hct MCH MCHC RDW Plt Count Lymph % (Auto) Leon % (Auto) Leon # Seg Neutrophils % Seg Neuts % (Manual) Lymphocytes % (Manual) Basophils % (Manual) Seg Neutrophils # Seg Neutrophils # Man Lymphocytes # (Manual) Basophils # (Manual) POC ABG pH POC ABG pCO2 POC ABG pO2 Sodium Potassium Chloride Carbon Dioxide BUN Creatinine Glucose POC Glucose 431 H 434 H 445 H Hemoglobin A1c Calcium Phosphorus Magnesium AST Alkaline Phosphatase Total Protein Albumin Urine Creatinine Urine Total Protein 06/01/17 06/01/17 06/01/17 14:26 15:46 16:03 WBC RBC Hgb Hct MCH MCHC RDW Plt Count Lymph % (Auto) Leon % (Auto) Leon # Seg Neutrophils % Seg Neuts % (Manual) Lymphocytes % (Manual) Basophils % (Manual) Seg Neutrophils # Seg Neutrophils # Man Lymphocytes # (Manual) Basophils # (Manual) POC ABG pH POC ABG pCO2 POC ABG pO2 Sodium Potassium Chloride Carbon Dioxide BUN Creatinine Glucose POC Glucose 310 H 292 H 244 H Hemoglobin A1c Calcium Phosphorus Magnesium AST Alkaline Phosphatase Total Protein Albumin Urine Creatinine Urine Total Protein 06/01/17 06/01/17 06/01/17 16:59 17:49 19:05 WBC RBC Hgb Hct MCH MCHC RDW Plt Count Lymph % (Auto) Leon % (Auto) Leon # Seg Neutrophils % Seg Neuts % (Manual) Lymphocytes % (Manual) Basophils % (Manual) Seg Neutrophils # Seg Neutrophils # Man Lymphocytes # (Manual) Basophils # (Manual) POC ABG pH POC ABG pCO2 POC ABG pO2 Sodium Potassium Chloride Carbon Dioxide BUN Creatinine Glucose POC Glucose 260 H 203 H 156 H Hemoglobin A1c Calcium Phosphorus Magnesium AST Alkaline Phosphatase Total Protein Albumin Urine Creatinine Urine Total Protein 06/02/17 06/02/17 06/02/17 00:09 01:06 02:31 WBC RBC Hgb Hct MCH MCHC RDW Plt Count Lymph % (Auto) Leon % (Auto) Leon # Seg Neutrophils % Seg Neuts % (Manual) Lymphocytes % (Manual) Basophils % (Manual) Seg Neutrophils # Seg Neutrophils # Man Lymphocytes # (Manual) Basophils # (Manual) POC ABG pH POC ABG pCO2 POC ABG pO2 Sodium Potassium Chloride Carbon Dioxide BUN Creatinine Glucose POC Glucose 137 H 146 H 182 H Hemoglobin A1c Calcium Phosphorus Magnesium AST Alkaline Phosphatase Total Protein Albumin Urine Creatinine Urine Total Protein 06/02/17 06/02/17 06/02/17 04:03 04:24 04:24 WBC 21.0 H RBC 3.62 L Hgb Hct 29.6 L MCH MCHC RDW 16.5 H Plt Count Lymph % (Auto) Leon % (Auto) Leon # Seg Neutrophils % Seg Neuts % (Manual) 98.0 H Lymphocytes % (Manual) 1.0 L Basophils % (Manual) Seg Neutrophils # Seg Neutrophils # Man 20.6 H Lymphocytes # (Manual) 0.2 L Basophils # (Manual) POC ABG pH POC ABG pCO2 POC ABG pO2 Sodium Potassium Chloride Carbon Dioxide 20 L BUN 36 H Creatinine 2.8 H Glucose 137 H POC Glucose 150 H Hemoglobin A1c Calcium 7.5 L Phosphorus 4.60 H Magnesium 1.50 L AST Alkaline Phosphatase 132 H Total Protein 4.1 L Albumin 1.7 L Urine Creatinine Urine Total Protein 06/02/17 06/02/17 06/02/17 05:01 05:14 06:20 WBC RBC Hgb Hct MCH MCHC RDW Plt Count Lymph % (Auto) Leon % (Auto) Leon # Seg Neutrophils % Seg Neuts % (Manual) Lymphocytes % (Manual) Basophils % (Manual) Seg Neutrophils # Seg Neutrophils # Man Lymphocytes # (Manual) Basophils # (Manual) POC ABG pH 7.517 H POC ABG pCO2 28.4 L POC ABG pO2 67 L Sodium Potassium Chloride Carbon Dioxide BUN Creatinine Glucose POC Glucose 137 H 163 H Hemoglobin A1c Calcium Phosphorus Magnesium AST Alkaline Phosphatase Total Protein Albumin Urine Creatinine Urine Total Protein 06/02/17 06/02/17 06/02/17 07:43 09:40 10:18 WBC RBC Hgb Hct MCH MCHC RDW Plt Count Lymph % (Auto) Leon % (Auto) Leon # Seg Neutrophils % Seg Neuts % (Manual) Lymphocytes % (Manual) Basophils % (Manual) Seg Neutrophils # Seg Neutrophils # Man Lymphocytes # (Manual) Basophils # (Manual) POC ABG pH POC ABG pCO2 POC ABG pO2 Sodium Potassium Chloride Carbon Dioxide BUN Creatinine Glucose POC Glucose 135 H 196 H Hemoglobin A1c Calcium Phosphorus Magnesium AST Alkaline Phosphatase Total Protein Albumin Urine Creatinine Urine Total Protein < 4 L 06/02/17 06/02/17 06/02/17 10:33 11:55 17:39 WBC RBC Hgb Hct MCH MCHC RDW Plt Count Lymph % (Auto) Leon % (Auto) Leon # Seg Neutrophils % Seg Neuts % (Manual) Lymphocytes % (Manual) Basophils % (Manual) Seg Neutrophils # Seg Neutrophils # Man Lymphocytes # (Manual) Basophils # (Manual) POC ABG pH POC ABG pCO2 POC ABG pO2 Sodium Potassium Chloride Carbon Dioxide BUN Creatinine Glucose POC Glucose 188 H 110 H 150 H Hemoglobin A1c Calcium Phosphorus Magnesium AST Alkaline Phosphatase Total Protein Albumin Urine Creatinine Urine Total Protein 06/02/17 06/02/17 06/03/17 18:12 21:32 02:02 WBC RBC Hgb Hct MCH MCHC RDW Plt Count Lymph % (Auto) Leon % (Auto) Leon # Seg Neutrophils % Seg Neuts % (Manual) Lymphocytes % (Manual) Basophils % (Manual) Seg Neutrophils # Seg Neutrophils # Man Lymphocytes # (Manual) Basophils # (Manual) POC ABG pH POC ABG pCO2 POC ABG pO2 Sodium Potassium Chloride Carbon Dioxide BUN Creatinine Glucose POC Glucose 131 H 143 H 191 H Hemoglobin A1c Calcium Phosphorus Magnesium AST Alkaline Phosphatase Total Protein Albumin Urine Creatinine Urine Total Protein 06/03/17 06/03/17 06/03/17 04:14 04:14 05:06 WBC 21.1 H RBC Hgb Hct MCH 27 L MCHC RDW 15.9 H Plt Count 447 H Lymph % (Auto) Leon % (Auto) Leon # Seg Neutrophils % Seg Neuts % (Manual) 94.0 H Lymphocytes % (Manual) 3.0 L Basophils % (Manual) Seg Neutrophils # Seg Neutrophils # Man 19.8 H Lymphocytes # (Manual) 0.6 L Basophils # (Manual) POC ABG pH POC ABG pCO2 28.6 L POC ABG pO2 112 H Sodium Potassium Chloride Carbon Dioxide 14 L BUN 45 H Creatinine 2.8 H Glucose 211 H POC Glucose Hemoglobin A1c Calcium 8.0 L Phosphorus Magnesium AST Alkaline Phosphatase Total Protein Albumin Urine Creatinine Urine Total Protein 06/03/17 06/03/17 06/03/17 06:00 10:20 13:43 WBC RBC Hgb Hct MCH MCHC RDW Plt Count Lymph % (Auto) Leon % (Auto) Leon # Seg Neutrophils % Seg Neuts % (Manual) Lymphocytes % (Manual) Basophils % (Manual) Seg Neutrophils # Seg Neutrophils # Man Lymphocytes # (Manual) Basophils # (Manual) POC ABG pH POC ABG pCO2 POC ABG pO2 Sodium Potassium Chloride Carbon Dioxide BUN Creatinine Glucose POC Glucose 224 H 226 H 296 H Hemoglobin A1c Calcium Phosphorus Magnesium AST Alkaline Phosphatase Total Protein Albumin Urine Creatinine Urine Total Protein 06/03/17 06/03/17 06/03/17 17:38 19:23 20:45 WBC RBC Hgb Hct MCH MCHC RDW Plt Count Lymph % (Auto) Leon % (Auto) Leon # Seg Neutrophils % Seg Neuts % (Manual) Lymphocytes % (Manual) Basophils % (Manual) Seg Neutrophils # Seg Neutrophils # Man Lymphocytes # (Manual) Basophils # (Manual) POC ABG pH POC ABG pCO2 POC ABG pO2 Sodium Potassium Chloride Carbon Dioxide BUN Creatinine Glucose POC Glucose 295 H 275 H 338 H Hemoglobin A1c Calcium Phosphorus Magnesium AST Alkaline Phosphatase Total Protein Albumin Urine Creatinine Urine Total Protein 06/03/17 06/03/17 06/04/17 21:50 23:08 00:16 WBC RBC Hgb Hct MCH MCHC RDW Plt Count Lymph % (Auto) Leon % (Auto) Leon # Seg Neutrophils % Seg Neuts % (Manual) Lymphocytes % (Manual) Basophils % (Manual) Seg Neutrophils # Seg Neutrophils # Man Lymphocytes # (Manual) Basophils # (Manual) POC ABG pH POC ABG pCO2 POC ABG pO2 Sodium Potassium Chloride Carbon Dioxide BUN Creatinine Glucose POC Glucose 223 H 214 H 226 H Hemoglobin A1c Calcium Phosphorus Magnesium AST Alkaline Phosphatase Total Protein Albumin Urine Creatinine Urine Total Protein 06/04/17 06/04/17 06/04/17 01:05 02:07 03:27 WBC RBC Hgb Hct MCH MCHC RDW Plt Count Lymph % (Auto) Leon % (Auto) Leon # Seg Neutrophils % Seg Neuts % (Manual) Lymphocytes % (Manual) Basophils % (Manual) Seg Neutrophils # Seg Neutrophils # Man Lymphocytes # (Manual) Basophils # (Manual) POC ABG pH POC ABG pCO2 POC ABG pO2 Sodium Potassium Chloride Carbon Dioxide BUN Creatinine Glucose POC Glucose 217 H 229 H 185 H Hemoglobin A1c Calcium Phosphorus Magnesium AST Alkaline Phosphatase Total Protein Albumin Urine Creatinine Urine Total Protein 06/04/17 06/04/17 06/04/17 03:52 04:05 04:05 WBC 19.6 H RBC Hgb Hct MCH 26 L MCHC RDW 15.6 H Plt Count 564 H Lymph % (Auto) 7.3 L Leon % (Auto) 10.8 H Leon # 2.1 H Seg Neutrophils % 81.4 H Seg Neuts % (Manual) Lymphocytes % (Manual) Basophils % (Manual) Seg Neutrophils # 15.9 H Seg Neutrophils # Man Lymphocytes # (Manual) Basophils # (Manual) POC ABG pH POC ABG pCO2 POC ABG pO2 Sodium Potassium Chloride Carbon Dioxide 17 L BUN 52 H Creatinine 2.5 H Glucose 163 H POC Glucose 181 H Hemoglobin A1c Calcium 7.9 L Phosphorus Magnesium AST Alkaline Phosphatase Total Protein Albumin Urine Creatinine Urine Total Protein 06/04/17 06/04/17 06/04/17 04:56 05:39 06:12 WBC RBC Hgb Hct MCH MCHC RDW Plt Count Lymph % (Auto) Leon % (Auto) Leon # Seg Neutrophils % Seg Neuts % (Manual) Lymphocytes % (Manual) Basophils % (Manual) Seg Neutrophils # Seg Neutrophils # Man Lymphocytes # (Manual) Basophils # (Manual) POC ABG pH 7.486 H POC ABG pCO2 26.8 L POC ABG pO2 Sodium Potassium Chloride Carbon Dioxide BUN Creatinine Glucose POC Glucose 208 H 225 H Hemoglobin A1c Calcium Phosphorus Magnesium AST Alkaline Phosphatase Total Protein Albumin Urine Creatinine Urine Total Protein 06/04/17 06/04/17 06/04/17 07:07 08:06 09:15 WBC RBC Hgb Hct MCH MCHC RDW Plt Count Lymph % (Auto) Leon % (Auto) Leon # Seg Neutrophils % Seg Neuts % (Manual) Lymphocytes % (Manual) Basophils % (Manual) Seg Neutrophils # Seg Neutrophils # Man Lymphocytes # (Manual) Basophils # (Manual) POC ABG pH POC ABG pCO2 POC ABG pO2 Sodium Potassium Chloride Carbon Dioxide BUN Creatinine Glucose POC Glucose 201 H 171 H 178 H Hemoglobin A1c Calcium Phosphorus Magnesium AST Alkaline Phosphatase Total Protein Albumin Urine Creatinine Urine Total Protein 06/04/17 06/04/17 06/04/17 10:16 12:22 17:21 WBC RBC Hgb Hct MCH MCHC RDW Plt Count Lymph % (Auto) Leon % (Auto) Leon # Seg Neutrophils % Seg Neuts % (Manual) Lymphocytes % (Manual) Basophils % (Manual) Seg Neutrophils # Seg Neutrophils # Man Lymphocytes # (Manual) Basophils # (Manual) POC ABG pH POC ABG pCO2 POC ABG pO2 Sodium Potassium Chloride Carbon Dioxide BUN Creatinine Glucose POC Glucose 191 H 188 H Hemoglobin A1c Calcium Phosphorus Magnesium AST Alkaline Phosphatase Total Protein Albumin Urine Creatinine 78.7 H Urine Total Protein 197 H 06/04/17 06/04/17 06/05/17 17:56 22:10 00:00 WBC RBC Hgb Hct MCH MCHC RDW Plt Count Lymph % (Auto) Leon % (Auto) Leon # Seg Neutrophils % Seg Neuts % (Manual) Lymphocytes % (Manual) Basophils % (Manual) Seg Neutrophils # Seg Neutrophils # Man Lymphocytes # (Manual) Basophils # (Manual) POC ABG pH POC ABG pCO2 POC ABG pO2 Sodium Potassium Chloride Carbon Dioxide 17 L BUN 55 H Creatinine 2.3 H Glucose 300 H POC Glucose 266 H 337 H Hemoglobin A1c Calcium 7.4 L Phosphorus Magnesium AST Alkaline Phosphatase Total Protein Albumin Urine Creatinine Urine Total Protein 06/05/17 06/05/17 06/05/17 03:26 04:11 05:13 WBC RBC Hgb Hct MCH MCHC RDW Plt Count Lymph % (Auto) Leon % (Auto) Leon # Seg Neutrophils % Seg Neuts % (Manual) Lymphocytes % (Manual) Basophils % (Manual) Seg Neutrophils # Seg Neutrophils # Man Lymphocytes # (Manual) Basophils # (Manual) POC ABG pH 7.586 H POC ABG pCO2 22.6 L POC ABG pO2 179 H Sodium Potassium Chloride Carbon Dioxide 19 L BUN 55 H Creatinine 2.2 H Glucose 226 H POC Glucose 220 H Hemoglobin A1c Calcium 7.7 L Phosphorus Magnesium AST Alkaline Phosphatase Total Protein Albumin Urine Creatinine Urine Total Protein 06/05/17 06/05/17 06/05/17 12:42 18:24 21:23 WBC RBC Hgb Hct MCH MCHC RDW Plt Count Lymph % (Auto) Leon % (Auto) Leon # Seg Neutrophils % Seg Neuts % (Manual) Lymphocytes % (Manual) Basophils % (Manual) Seg Neutrophils # Seg Neutrophils # Man Lymphocytes # (Manual) Basophils # (Manual) POC ABG pH POC ABG pCO2 POC ABG pO2 Sodium Potassium Chloride Carbon Dioxide BUN Creatinine Glucose POC Glucose 168 H 121 H 166 H Hemoglobin A1c Calcium Phosphorus Magnesium AST Alkaline Phosphatase Total Protein Albumin Urine Creatinine Urine Total Protein 06/06/17 06/06/17 06/06/17 00:14 04:11 06:19 WBC RBC Hgb Hct MCH MCHC RDW Plt Count Lymph % (Auto) Leon % (Auto) Leon # Seg Neutrophils % Seg Neuts % (Manual) Lymphocytes % (Manual) Basophils % (Manual) Seg Neutrophils # Seg Neutrophils # Man Lymphocytes # (Manual) Basophils # (Manual) POC ABG pH POC ABG pCO2 33.0 L POC ABG pO2 Sodium Potassium Chloride Carbon Dioxide BUN Creatinine Glucose POC Glucose 179 H 180 H Hemoglobin A1c Calcium Phosphorus Magnesium AST Alkaline Phosphatase Total Protein Albumin Urine Creatinine Urine Total Protein 06/06/17 06/06/17 06/06/17 12:19 18:38 20:01 WBC RBC Hgb Hct MCH MCHC RDW Plt Count Lymph % (Auto) Leon % (Auto) Leon # Seg Neutrophils % Seg Neuts % (Manual) Lymphocytes % (Manual) Basophils % (Manual) Seg Neutrophils # Seg Neutrophils # Man Lymphocytes # (Manual) Basophils # (Manual) POC ABG pH POC ABG pCO2 POC ABG pO2 Sodium Potassium Chloride Carbon Dioxide BUN Creatinine Glucose POC Glucose 123 H 56 L 65 L Hemoglobin A1c Calcium Phosphorus Magnesium AST Alkaline Phosphatase Total Protein Albumin Urine Creatinine Urine Total Protein 06/06/17 06/07/17 06/07/17 23:51 04:25 05:29 WBC RBC Hgb Hct MCH MCHC RDW Plt Count Lymph % (Auto) Leon % (Auto) Leon # Seg Neutrophils % Seg Neuts % (Manual) Lymphocytes % (Manual) Basophils % (Manual) Seg Neutrophils # Seg Neutrophils # Man Lymphocytes # (Manual) Basophils # (Manual) POC ABG pH 7.470 H POC ABG pCO2 33.6 L POC ABG pO2 Sodium Potassium Chloride Carbon Dioxide BUN Creatinine Glucose POC Glucose 118 H 183 H Hemoglobin A1c Calcium Phosphorus Magnesium AST Alkaline Phosphatase Total Protein Albumin Urine Creatinine Urine Total Protein 06/07/17 06/07/17 06/07/17 07:51 12:00 18:08 WBC RBC Hgb Hct MCH MCHC RDW Plt Count Lymph % (Auto) Leon % (Auto) Leon # Seg Neutrophils % Seg Neuts % (Manual) Lymphocytes % (Manual) Basophils % (Manual) Seg Neutrophils # Seg Neutrophils # Man Lymphocytes # (Manual) Basophils # (Manual) POC ABG pH POC ABG pCO2 POC ABG pO2 Sodium 135 L Potassium Chloride Carbon Dioxide 21 L BUN 50 H Creatinine 1.8 H Glucose 232 H POC Glucose 361 H 249 H Hemoglobin A1c Calcium 8.0 L Phosphorus Magnesium AST Alkaline Phosphatase Total Protein Albumin Urine Creatinine Urine Total Protein 06/07/17 06/08/17 06/08/17 23:53 05:25 11:50 WBC RBC Hgb Hct MCH MCHC RDW Plt Count Lymph % (Auto) Leon % (Auto) Leon # Seg Neutrophils % Seg Neuts % (Manual) Lymphocytes % (Manual) Basophils % (Manual) Seg Neutrophils # Seg Neutrophils # Man Lymphocytes # (Manual) Basophils # (Manual) POC ABG pH POC ABG pCO2 POC ABG pO2 Sodium Potassium Chloride Carbon Dioxide BUN Creatinine Glucose POC Glucose 190 H 136 H 166 H Hemoglobin A1c Calcium Phosphorus Magnesium AST Alkaline Phosphatase Total Protein Albumin Urine Creatinine Urine Total Protein 06/08/17 06/08/17 06/08/17 14:20 14:20 19:05 WBC 15.7 H RBC 3.49 L Hgb 9.4 L Hct 27.9 L MCH 27 L MCHC RDW 15.3 H Plt Count 590 H Lymph % (Auto) Leon % (Auto) Leon # Seg Neutrophils % Seg Neuts % (Manual) Lymphocytes % (Manual) Basophils % (Manual) Seg Neutrophils # Seg Neutrophils # Man Lymphocytes # (Manual) Basophils # (Manual) POC ABG pH POC ABG pCO2 POC ABG pO2 Sodium Potassium Chloride Carbon Dioxide BUN 55 H Creatinine 1.7 H Glucose 117 H POC Glucose 135 H Hemoglobin A1c Calcium Phosphorus Magnesium AST Alkaline Phosphatase Total Protein Albumin Urine Creatinine Urine Total Protein 06/08/17 06/08/17 06/09/17 21:52 23:55 04:18 WBC RBC Hgb Hct MCH MCHC RDW Plt Count Lymph % (Auto) Leon % (Auto) Leon # Seg Neutrophils % Seg Neuts % (Manual) Lymphocytes % (Manual) Basophils % (Manual) Seg Neutrophils # Seg Neutrophils # Man Lymphocytes # (Manual) Basophils # (Manual) POC ABG pH POC ABG pCO2 POC ABG pO2 Sodium Potassium Chloride Carbon Dioxide BUN 51 H Creatinine 1.6 H Glucose POC Glucose 186 H 209 H Hemoglobin A1c Calcium Phosphorus Magnesium AST Alkaline Phosphatase Total Protein Albumin Urine Creatinine Urine Total Protein 06/09/17 06/09/17 06/09/17 09:56 12:42 18:09 WBC RBC Hgb Hct MCH MCHC RDW Plt Count Lymph % (Auto) Leon % (Auto) Leon # Seg Neutrophils % Seg Neuts % (Manual) Lymphocytes % (Manual) Basophils % (Manual) Seg Neutrophils # Seg Neutrophils # Man Lymphocytes # (Manual) Basophils # (Manual) POC ABG pH POC ABG pCO2 POC ABG pO2 Sodium Potassium Chloride Carbon Dioxide BUN Creatinine Glucose POC Glucose 63 L 142 H 166 H Hemoglobin A1c Calcium Phosphorus Magnesium AST Alkaline Phosphatase Total Protein Albumin Urine Creatinine Urine Total Protein 06/09/17 06/10/17 06/10/17 23:39 03:24 04:28 WBC 15.1 H RBC 2.99 L Hgb 8.1 L Hct 23.6 L MCH 27 L MCHC 35 H RDW 15.4 H Plt Count 500 H Lymph % (Auto) Leon % (Auto) Leon # Seg Neutrophils % Seg Neuts % (Manual) Lymphocytes % (Manual) Basophils % (Manual) Seg Neutrophils # Seg Neutrophils # Man Lymphocytes # (Manual) Basophils # (Manual) POC ABG pH 7.461 H POC ABG pCO2 POC ABG pO2 131 H Sodium Potassium Chloride Carbon Dioxide BUN Creatinine Glucose POC Glucose 284 H Hemoglobin A1c Calcium Phosphorus Magnesium AST Alkaline Phosphatase Total Protein Albumin Urine Creatinine Urine Total Protein 06/10/17 06/10/17 04:28 05:10 WBC RBC Hgb Hct MCH MCHC RDW Plt Count Lymph % (Auto) Leon % (Auto) Leon # Seg Neutrophils % Seg Neuts % (Manual) Lymphocytes % (Manual) Basophils % (Manual) Seg Neutrophils # Seg Neutrophils # Man Lymphocytes # (Manual) Basophils # (Manual) POC ABG pH POC ABG pCO2 POC ABG pO2 Sodium Potassium Chloride Carbon Dioxide BUN 53 H Creatinine 1.8 H Glucose 185 H POC Glucose 190 H Hemoglobin A1c Calcium Phosphorus Magnesium AST Alkaline Phosphatase Total Protein Albumin Urine Creatinine Urine Total Protein
[2017-06-10] MEDS: D50W (25GM) Syringe IV PRN ×2 (13:36→18:33)
[2017-06-10] MEDS: ALDACTONE PO SCH (13:43)
[2017-06-10] MEDS: KEPPRA PO SCH ×2 (13:43→22:17)
[2017-06-10] MEDS: PEPCID PO SCH ×2 (13:43→22:18)
[2017-06-10] MEDS: LOVENOX SUB-Q SCH (13:43)
[2017-06-10] MEDS: ZAROXOLYN PO SCH ×2 (13:44→22:18)
[2017-06-11] MEDS: APRESOLINE PO SCH ×3 (06:16→21:49)
[2017-06-11] MEDS: HumaLOG SUB-Q SCH ×4 (06:16→18:44)
[2017-06-11] MEDS: LASIX IV SCH ×2 (06:16→18:36)
[2017-06-11] MEDS: NAMENDA PO SCH ×2 (06:17→18:35)
[2017-06-11] MEDS: ISORDIL TITRADOSE PO SCH ×3 (06:17→21:46)
[2017-06-11 06:25] LABS: Hemoglobin 8.3 gm/dl (10.1-14.3); Mean Corpuscular HGB Conc 35 % (30-34); Mean Corpuscular Hemoglobin 28 pg (28-32); Mean Corpuscular Volume 79 fl (79-97); Platelet Count 492 K/mm3 (140-440); Red Blood Count 3.03 M/mm3 (3.65-5.03); Red Cell Distribution Width 15.2 % (13.2-15.2)
[2017-06-11 06:48] LABS: Calcium 8.4 mg/dL (8.4-10.2)
[2017-06-11] MEDS ORDERED: NACL 0.9% 1000 ML 1,000 ML IV SCH (08:00)
--- NOTE | 2017-06-11 08:40 | Progress Note ---
Assessment and Plan Assessment and plan: Patient had 36-year-old -[place] female was admitted to the floor for seizure episode, altered mental status, acute hypoxic respiratory failure, patient was intubated in the emergency department patient had PEA and resuscitated successfully. Acute hypoxic respiratory failure - still intubated, on mechanical ventilation>96hrs -For PEG and Trach, likely today Acute encephalopathy with anoxic hypoxic brain injury - treat underlying cause Seizure disorder-complex partial - Patient is on IV Keppra - Cont Namenda -Neurology following Cardiomyopathy -Cardiology following Hyperosmolar hyperglycemic syndrome in Diabetes mellitus type 2 - She was on Insulin drip, now on subcut Insulin Acute kidney injury. -Creatinine 1.8 today Nephrology following Hypertension. BP improved on increasing Hydralazine to 50mg q 8hrs. DVT prophylaxis with Lovenox Disposition - Continue ICU care. poor prognosis POOR PROGNOSIS History Interval history: Still intubated, Unresponsive Hospitalist Physical - Physical exam Narrative exam: Gen appearance: Intubated, lying in bed, obese HEENT: facial edema, swollen tongue,intubated orally Neck:supple, no JVD Lungs: Coarse breath sounds bilaterally, no wheeze Heart: S1 and S2 regular, no murmurs, rubs or gallop Abdomen: soft, non tender, non distended, normal bowel sounds Ext: Edema both upper and lower extremities, no cyanosis Neuro: Intubated, unresponsive - Constitutional Vitals: Temp Pulse Resp BP Pulse Ox 98.6 F 95 H 14 172/98 100 06/11/17 08:00 06/11/17 08:28 06/11/17 08:00 06/11/17 08:00 06/11/17 08:00 General appearance: Present: other (unresponsive, on the ventilator) Results - Labs CBC & Chem 7: 06/11/17 06:01 06/11/17 06:03 Labs: Laboratory Last Values WBC 15.6 K/mm3 (4.5-11.0) H 06/11/17 06:01 RBC 3.03 M/mm3 (3.65-5.03) L 06/11/17 06:01 Hgb 8.3 gm/dl (10.1-14.3) L 06/11/17 06:01 Hct 24.0 % (30.3-42.9) L 06/11/17 06:01 MCV 79 fl (79-97) 06/11/17 06:01 MCH 28 pg (28-32) 06/11/17 06:01 MCHC 35 % (30-34) H 06/11/17 06:01 RDW 15.2 % (13.2-15.2) 06/11/17 06:01 Plt Count 492 K/mm3 (140-440) H 06/11/17 06:01 Lymph % (Auto) 7.3 % (13.4-35.0) L 06/04/17 04:05 Emery % (Auto) 10.8 % (0.0-7.3) H 06/04/17 04:05 Eos % (Auto) 0.1 % (0.0-4.3) 06/04/17 04:05 Baso % (Auto) 0.4 % (0.0-1.8) 06/04/17 04:05 Lymph # 1.4 K/mm3 (1.2-5.4) 06/04/17 04:05 Emery # 2.1 K/mm3 (0.0-0.8) H 06/04/17 04:05 Eos # 0.0 K/mm3 (0.0-0.4) 06/04/17 04:05 Baso # 0.1 K/mm3 (0.0-0.1) 06/04/17 04:05 Add Manual Diff Complete 06/03/17 04:14 Total Counted 100 06/03/17 04:14 Seg Neutrophils % 81.4 % (40.0-70.0) H 06/04/17 04:05 Seg Neuts % (Manual) 94.0 % (40.0-70.0) H 06/03/17 04:14 Band Neutrophils % 0 % 06/03/17 04:14 Lymphocytes % (Manual) 3.0 % (13.4-35.0) L 06/03/17 04:14 Reactive Lymphs % (Man) 0 % 06/03/17 04:14 Monocytes % (Manual) 3.0 % (0.0-7.3) 06/03/17 04:14 Eosinophils % (Manual) 0 % (0.0-4.3) 06/03/17 04:14 Basophils % (Manual) 0 % (0.0-1.8) 06/03/17 04:14 Metamyelocytes % 0 % 06/03/17 04:14 Myelocytes % 0 % 06/03/17 04:14 Promyelocytes % 0 % 06/03/17 04:14 Blast Cells % 0 % 06/03/17 04:14 Nucleated RBC % Not Reportable 06/03/17 04:14 Seg Neutrophils # 15.9 K/mm3 (1.8-7.7) H 06/04/17 04:05 Seg Neutrophils # Man 19.8 K/mm3 (1.8-7.7) H 06/03/17 04:14 Band Neutrophils # 0.0 K/mm3 06/03/17 04:14 Lymphocytes # (Manual) 0.6 K/mm3 (1.2-5.4) L 06/03/17 04:14 Abs React Lymphs (Man) 0.0 K/mm3 06/03/17 04:14 Monocytes # (Manual) 0.6 K/mm3 (0.0-0.8) 06/03/17 04:14 Eosinophils # (Manual) 0.0 K/mm3 (0.0-0.4) 06/03/17 04:14 Basophils # (Manual) 0.0 K/mm3 (0.0-0.1) 06/03/17 04:14 Metamyelocytes # 0.0 K/mm3 06/03/17 04:14 Myelocytes # 0.0 K/mm3 06/03/17 04:14 Promyelocytes # 0.0 K/mm3 06/03/17 04:14 Blast Cells # 0.0 K/mm3 06/03/17 04:14 WBC Morphology Not Reportable 06/03/17 04:14 Hypersegmented Neuts Not Reportable 06/03/17 04:14 Hyposegmented Neuts Not Reportable 06/03/17 04:14 Hypogranular Neuts Not Reportable 06/03/17 04:14 Smudge Cells Not Reportable 06/03/17 04:14 Toxic Granulation Not Reportable 06/03/17 04:14 Toxic Vacuolation Not Reportable 06/03/17 04:14 Dohle Bodies Not Reportable 06/03/17 04:14 Pelger-Huet Anomaly Not Reportable 06/03/17 04:14 Don Rods Not Reportable 06/03/17 04:14 Platelet Estimate Consistent w auto 06/03/17 04:14 Clumped Platelets Not Reportable 06/03/17 04:14 Plt Clumps, EDTA Not Reportable 06/03/17 04:14 Large Platelets Not Reportable 06/03/17 04:14 Giant Platelets Not Reportable 06/03/17 04:14 Platelet Satelliting Not Reportable 06/03/17 04:14 Plt Morphology Comment Not Reportable 06/03/17 04:14 RBC Morphology Not Reportable 06/03/17 04:14 Dimorphic RBCs Not Reportable 06/03/17 04:14 Polychromasia Not Reportable 06/03/17 04:14 Hypochromasia Not Reportable 06/03/17 04:14 Poikilocytosis Not Reportable 06/03/17 04:14 Anisocytosis Not Reportable 06/03/17 04:14 Microcytosis Not Reportable 06/03/17 04:14 Macrocytosis Not Reportable 06/03/17 04:14 Spherocytes Not Reportable 06/03/17 04:14 Pappenheimer Bodies Not Reportable 06/03/17 04:14 Sickle Cells Not Reportable 06/03/17 04:14 Target Cells Not Reportable 06/03/17 04:14 Tear Drop Cells Not Reportable 06/03/17 04:14 Ovalocytes Not Reportable 06/03/17 04:14 Helmet Cells Not Reportable 06/03/17 04:14 Wade-Maybee Bodies Not Reportable 06/03/17 04:14 [place]es Rings Not Reportable 06/03/17 04:14 Cecy Cells Not Reportable 06/03/17 04:14 Bite Cells Not Reportable 06/03/17 04:14 Crenated Cell Not Reportable 06/03/17 04:14 Elliptocytes Not Reportable 06/03/17 04:14 Acanthocytes (Spur) Not Reportable 06/03/17 04:14 Rouleaux Not Reportable 06/03/17 04:14 Hemoglobin C Crystals Not Reportable 06/03/17 04:14 Schistocytes Not Reportable 06/03/17 04:14 Malaria parasites Not Reportable 06/03/17 04:14 Fadi Bodies Not Reportable 06/03/17 04:14 Hem Pathologist Commnt No 06/03/17 04:14 PT 12.4 Sec. (12.2-14.9) 06/09/17 04:18 INR 0.88 (0.87-1.13) 06/09/17 04:18 POC ABG pH 7.461 (7.35-7.45) H 06/10/17 03:24 POC ABG pCO2 36.6 (35-45) 06/10/17 03:24 POC ABG pO2 131 (80-105) H 06/10/17 03:24 POC ABG HCO3 26.1 06/10/17 03:24 POC ABG Total CO2 27 06/10/17 03:24 POC ABG O2 Sat 99 06/10/17 03:24 POC ABG Base Excess 2 06/10/17 03:24 VBG pH 7.327 (7.320-7.420) 05/30/17 10:43 FiO2 45 % 06/10/17 03:24 Sodium 140 mmol/L (137-145) 06/11/17 06:03 Potassium 4.2 mmol/L (3.6-5.0) 06/11/17 06:03 Chloride 102.5 mmol/L (98-107) 06/11/17 06:03 Carbon Dioxide 23 mmol/L (22-30) 06/11/17 06:03 Anion Gap 19 mmol/L 06/11/17 06:03 BUN 55 mg/dL (7-17) H 06/11/17 06:03 Creatinine 1.8 mg/dL (0.7-1.2) H 06/11/17 06:03 Estimated GFR 39 ml/min 06/11/17 06:03 BUN/Creatinine Ratio 31 % 06/11/17 06:03 Glucose 228 mg/dL (65-100) H 06/11/17 06:03 POC Glucose 219 (70-105) H 06/11/17 05:32 Hemoglobin A1c 9.7 % (4-6) H 05/31/17 05:45 Calcium 8.4 mg/dL (8.4-10.2) 06/11/17 06:03 Phosphorus 4.40 mg/dL (2.5-4.5) 06/07/17 07:51 Magnesium 1.70 mg/dL (1.7-2.3) 06/07/17 07:51 Total Bilirubin 0.50 mg/dL (0.1-1.2) 06/02/17 04:24 AST 23 units/L (5-40) 06/02/17 04:24 ALT 14 units/L (7-56) 06/02/17 04:24 Alkaline Phosphatase 132 units/L (35-129) H 06/02/17 04:24 Total Protein 4.1 g/dL (6.3-8.2) L 06/02/17 04:24 Albumin 1.7 g/dL (3.9-5) L 06/02/17 04:24 Albumin/Globulin Ratio 0.7 % 06/02/17 04:24 Urine Color Yellow (Yellow) 05/30/17 15:04 Urine Turbidity Clear (Clear) 05/30/17 15:04 Urine pH 7.0 (5.0-7.0) 05/30/17 15:04 Ur Specific [place] 1.021 (1.003-1.030) 05/30/17 15:04 Urine Protein >500 mg/dL (Negative) 05/30/17 15:04 Urine Glucose (UA) >=500 mg/dL (Negative) 05/30/17 15:04 Urine Ketones Tr mg/dL (Negative) 05/30/17 15:04 Urine Blood Sm (Negative) 05/30/17 15:04 Urine Nitrite Neg (Negative) 05/30/17 15:04 Urine Bilirubin Neg (Negative) 05/30/17 15:04 Urine Urobilinogen < 2.0 mg/dL (<2.0) 05/30/17 15:04 Ur Leukocyte Esterase Neg (Negative) 05/30/17 15:04 Urine WBC (Auto) 2.0 /HPF (0.0-6.0) 05/30/17 15:04 Urine RBC (Auto) 5.0 /HPF (0.0-6.0) 05/30/17 15:04 Urine Bacteria (Auto) 1+ /HPF (Negative) 05/30/17 15:04 Urine Mucus Few /HPF 05/30/17 15:04 Urine Creatinine 78.7 mg/dL (0.1-20.0) H 06/04/17 17:21 Urine Sodium 10 mmol/L 06/02/17 10:18 Urine Total Protein 197 mg/dL (5-11.8) H 06/04/17 17:21 Urine Opiates Screen Presumptive negative 05/30/17 15:04 Urine Methadone Screen Presumptive negative 05/30/17 15:04 Ur Barbiturates Screen Presumptive negative 05/30/17 15:04 Levetiracetam 21.2 mcg/mL 05/30/17 08:59 Ur Phencyclidine Scrn Presumptive negative 05/30/17 15:04 Ur Amphetamines Screen Presumptive negative 05/30/17 15:04 U Benzodiazepines Scrn Presumptive negative 05/30/17 15:04 Urine Cocaine Screen Presumptive negative 05/30/17 15:04 U Marijuana (THC) Screen Presumptive positive 05/30/17 15:04 Drugs of Abuse Note Disclamer 05/30/17 15:04
--- NOTE | 2017-06-11 08:46 | Progress Note ---
Assessment and Plan - Patient Problems (1) Acute renal failure with tubular necrosis Current Visit: Yes Status: Acute Plan to address problem: Non-Oliguric Acute renal failure/acute tubular necrosis. Kidney function unchanged from previous. Follow kidney function and electrolytes on diuretics. (2) Acute respiratory failure Current Visit: Yes Status: Acute Qualifiers: Respiratory failure complication: hypoxia Qualified Code(s): J96.01 - Acute respiratory failure with hypoxia Plan to address problem: Ventilator management by primary attending (3) Acute systolic heart failure Current Visit: Yes Status: Acute Plan to address problem: Continue diuretics and beta jas. Continue spironolactone and monitor fluid balance. ARAM inhibitor/angiotensin receptor jas contraindicated due to her history of allergy (4) Hyperosmolar non-ketotic state in patient with type 2 diabetes mellitus Current Visit: Yes Status: Acute Plan to address problem: Blood sugar management by primary attending (5) Hypertension Current Visit: Yes Status: Acute Qualifiers: Hypertension type: essential hypertension Qualified Code(s): I10 - Essential (primary) hypertension Plan to address problem: Blood pressure has improved. Follow blood pressure on current medications Subjective Date of service: 06/11/17 Principal diagnosis: coma, acute kidney injury Interval history: Patient seen lying in bed in the intensive care unit. Intubated on ventilator. Not communicating. Not following commands. No family at bedside Vent settings CMV 450/12/35% PEEP of 5 Objective - Exam Narrative Exam: Young -[place] female lying in bed intubated on ventilator HEENT: NCAT, endotracheal tube intact, orogastric tube intact Neck: Supple, no venous distention CVS: S1S2 RRR with no murmur, rub or gallop Chest: Coarse breath sounds with Low pitched rhonchi bilaterally Abdomen: Protuberant, soft, nontender, no organomegaly, bowel sounds are present Extremities: 1+ bilateral edema both upper and lower extremities Neuro: Eyes open, not following commands - Vital Signs Vital signs: Vital Signs - 12hr 06/10/17 06/10/17 06/10/17 21:01 21:13 21:31 Temperature Pulse Rate 99 H 89 94 H Pulse Rate [ From Monitor] Respiratory 18 17 16 Rate Blood Pressure 151/82 151/82 147/80 O2 Sat by Pulse 98 100 99 Oximetry 06/10/17 06/10/17 06/10/17 21:40 22:00 22:01 Temperature 98.1 F Pulse Rate 98 H 90 Pulse Rate [ From Monitor] Respiratory 16 Rate Blood Pressure 139/77 O2 Sat by Pulse 98 Oximetry 06/10/17 06/10/17 06/10/17 22:18 22:19 22:30 Temperature Pulse Rate 93 H 91 H 113 H Pulse Rate [ From Monitor] Respiratory 24 Rate Blood Pressure 139/77 139/77 O2 Sat by Pulse Oximetry 06/10/17 06/10/17 06/11/17 23:00 23:30 00:00 Temperature 98.0 F Pulse Rate 102 H 92 H 92 H Pulse Rate [ 98 H From Monitor] Respiratory 20 14 16 Rate Blood Pressure 137/75 137/75 121/59 O2 Sat by Pulse 97 98 99 Oximetry 06/11/17 06/11/17 06/11/17 00:16 00:30 01:00 Temperature Pulse Rate 91 H 91 H 91 H Pulse Rate [ From Monitor] Respiratory 15 15 Rate Blood Pressure 121/59 115/62 119/64 O2 Sat by Pulse 99 98 98 Oximetry 06/11/17 06/11/17 06/11/17 01:30 02:00 02:30 Temperature Pulse Rate 96 H 97 H 96 H Pulse Rate [ From Monitor] Respiratory 16 15 15 Rate Blood Pressure 124/70 127/70 126/67 O2 Sat by Pulse 98 96 95 Oximetry 06/11/17 06/11/17 06/11/17 03:00 03:30 04:00 Temperature 97.9 F Pulse Rate 97 H 97 H 99 H Pulse Rate [ 98 H From Monitor] Respiratory 17 16 16 Rate Blood Pressure 140/75 128/68 133/69 O2 Sat by Pulse 97 97 97 Oximetry 06/11/17 06/11/17 06/11/17 04:30 04:45 05:00 Temperature Pulse Rate 111 H 105 H 112 H Pulse Rate [ From Monitor] Respiratory 13 Rate Blood Pressure 148/99 148/99 154/91 O2 Sat by Pulse 10 L 99 Oximetry 06/11/17 06/11/17 06/11/17 05:30 06:00 06:16 Temperature Pulse Rate 109 H 95 H Pulse Rate [ From Monitor] Respiratory Rate Blood Pressure 158/89 144/75 144/75 O2 Sat by Pulse 99 Oximetry 06/11/17 06/11/17 06/11/17 06:17 06:30 07:00 Temperature Pulse Rate 92 H 93 H 89 Pulse Rate [ From Monitor] Respiratory Rate Blood Pressure 144/75 129/66 131/68 O2 Sat by Pulse 98 99 Oximetry 06/11/17 06/11/17 06/11/17 07:30 08:00 08:28 Temperature 98.6 F Pulse Rate 118 H 95 H 95 H Pulse Rate [ 89 From Monitor] Respiratory 14 Rate Blood Pressure 131/68 172/98 O2 Sat by Pulse 100 100 Oximetry - Lab 06/11/17 06:01 06/11/17 06:03 Most recent lab results Calcium 8.4 mg/dL (8.4-10.2) 06/11/17 06:03 Phosphorus 4.40 mg/dL (2.5-4.5) 06/07/17 07:51 Magnesium 1.70 mg/dL (1.7-2.3) 06/07/17 07:51 Urine Creatinine 78.7 mg/dL (0.1-20.0) H 06/04/17 17:21 Urine Sodium 10 mmol/L 06/02/17 10:18 Urine Total Protein 197 mg/dL (5-11.8) H 06/04/17 17:21
[2017-06-11] MEDS ORDERED: NORCURON IV NR (09:16)
[2017-06-11] MEDS ORDERED: DIPRIVAN 10 MG/ML IV NR (09:16)
[2017-06-11] MEDS ORDERED: SUBLIMAZE IV NR (09:16)
--- NOTE | 2017-06-11 09:51 | Progress Note ---
Assessment and Plan 36 y/o female with acute respiratory failure secondary to metabolic encephalopathy, thought to be from seizures, s/p cardiac arrest. 1. Trach and Peg today 2. Continue supportive care and PSV trials 3. Overall prognosis is guarded to poor. Will likely need LTACH for transition. CCT 31 minutes. Subjective Date of service: 06/11/17 Principal diagnosis: coma, acute kidney injury Interval history: No acute events. Scheduled for trach and peg today at 11:30. No family currently at bedside. Objective Vital Signs - 12hr 06/10/17 06/10/17 06/10/17 22:00 22:01 22:18 Temperature Pulse Rate 98 H 90 93 H Pulse Rate [ From Monitor] Respiratory 16 Rate Blood Pressure 139/77 139/77 O2 Sat by Pulse 98 Oximetry 06/10/17 06/10/17 06/10/17 22:19 22:30 23:00 Temperature Pulse Rate 91 H 113 H 102 H Pulse Rate [ From Monitor] Respiratory 24 20 Rate Blood Pressure 139/77 137/75 O2 Sat by Pulse 97 Oximetry 06/10/17 06/11/17 06/11/17 23:30 00:00 00:16 Temperature 98.0 F Pulse Rate 92 H 92 H 91 H Pulse Rate [ 98 H From Monitor] Respiratory 14 16 Rate Blood Pressure 137/75 121/59 121/59 O2 Sat by Pulse 98 99 99 Oximetry 06/11/17 06/11/17 06/11/17 00:30 01:00 01:30 Temperature Pulse Rate 91 H 91 H 96 H Pulse Rate [ From Monitor] Respiratory 15 15 16 Rate Blood Pressure 115/62 119/64 124/70 O2 Sat by Pulse 98 98 98 Oximetry 06/11/17 06/11/17 06/11/17 02:00 02:30 03:00 Temperature Pulse Rate 97 H 96 H 97 H Pulse Rate [ From Monitor] Respiratory 15 15 17 Rate Blood Pressure 127/70 126/67 140/75 O2 Sat by Pulse 96 95 97 Oximetry 06/11/17 06/11/17 06/11/17 03:30 04:00 04:30 Temperature 97.9 F Pulse Rate 97 H 99 H 111 H Pulse Rate [ 98 H From Monitor] Respiratory 16 16 13 Rate Blood Pressure 128/68 133/69 148/99 O2 Sat by Pulse 97 97 Oximetry 06/11/17 06/11/17 06/11/17 04:45 05:00 05:30 Temperature Pulse Rate 105 H 112 H 109 H Pulse Rate [ From Monitor] Respiratory Rate Blood Pressure 148/99 154/91 158/89 O2 Sat by Pulse 10 L 99 99 Oximetry 06/11/17 06/11/17 06/11/17 06:00 06:16 06:17 Temperature Pulse Rate 95 H 92 H Pulse Rate [ From Monitor] Respiratory Rate Blood Pressure 144/75 144/75 144/75 O2 Sat by Pulse Oximetry 06/11/17 06/11/17 06/11/17 06:30 07:00 07:30 Temperature Pulse Rate 93 H 89 118 H Pulse Rate [ From Monitor] Respiratory Rate Blood Pressure 129/66 131/68 131/68 O2 Sat by Pulse 98 99 100 Oximetry 06/11/17 06/11/17 08:00 08:28 Temperature 98.6 F Pulse Rate 95 H 95 H Pulse Rate [ 89 From Monitor] Respiratory 14 Rate Blood Pressure 172/98 O2 Sat by Pulse 100 Oximetry Constitutional: other (unresponsive, critically ill on ventilator) Eyes: non-icteric ENT: oropharynx moist, other (orally intubated) Neck: supple Effort: normal Ascultation: Bilateral: diminished breath sounds, rales, rhonchi, other (coarse BS bilaterally) Percussion: Bilateral: not dull Cardiovascular: other (tachycardia, RR; no mrg) Gastrointestinal: normoactive bowel sounds, soft, non-tender Integumentary: normal Extremities: no cyanosis, no edema, pink and warm Neurologic: unable to assess, other (unresponsive) Psychiatric: other (not able to assess) CBC and BMP: 06/11/17 06:01 06/11/17 06:03 ABG, PT/INR, D-dimer: ABG POC ABG pH 7.461 (7.35-7.45) H 06/10/17 03:24 POC ABG pCO2 36.6 (35-45) 06/10/17 03:24 POC ABG pO2 131 (80-105) H 06/10/17 03:24 POC ABG HCO3 26.1 06/10/17 03:24 POC ABG Total CO2 27 06/10/17 03:24 POC ABG O2 Sat 99 06/10/17 03:24 PT/INR, D-dimer PT 12.4 Sec. (12.2-14.9) 06/09/17 04:18 INR 0.88 (0.87-1.13) 06/09/17 04:18 Abnormal lab findings: Abnormal Labs 05/30/17 05/30/17 05/30/17 07:48 07:48 08:32 WBC 11.5 H RBC Hgb Hct MCH 27 L MCHC RDW 16.3 H Plt Count Lymph % (Auto) [place] % (Auto) [place] # Seg Neutrophils % Seg Neuts % (Manual) Lymphocytes % (Manual) Basophils % (Manual) Seg Neutrophils # Seg Neutrophils # Man Lymphocytes # (Manual) Basophils # (Manual) POC ABG pH POC ABG pCO2 POC ABG pO2 Sodium 133 L Potassium Chloride 89.9 L Carbon Dioxide BUN 27 H Creatinine 2.0 H Glucose 741 H* POC Glucose > 500 H Hemoglobin A1c Calcium Phosphorus Magnesium AST Alkaline Phosphatase Total Protein Albumin Urine Creatinine Urine Total Protein 05/30/17 05/30/17 05/30/17 08:59 08:59 16:08 WBC 14.5 H RBC Hgb Hct MCH MCHC RDW 16.0 H Plt Count Lymph % (Auto) [place] % (Auto) [place] # Seg Neutrophils % Seg Neuts % (Manual) 95.0 H Lymphocytes % (Manual) 2.0 L Basophils % (Manual) 2.0 H Seg Neutrophils # Seg Neutrophils # Man 13.8 H Lymphocytes # (Manual) 0.3 L Basophils # (Manual) 0.3 H POC ABG pH POC ABG pCO2 POC ABG pO2 Sodium 134 L 135 L Potassium 3.2 L Chloride 90.8 L 93.6 L Carbon Dioxide BUN 28 H 30 H Creatinine 2.0 H 2.1 H Glucose 742 H* 567 H* POC Glucose Hemoglobin A1c Calcium Phosphorus Magnesium AST Alkaline Phosphatase 246 H Total Protein 5.6 L Albumin 2.9 L Urine Creatinine Urine Total Protein 05/30/17 05/30/17 05/30/17 16:35 17:55 18:59 WBC RBC Hgb Hct MCH MCHC RDW Plt Count Lymph % (Auto) [place] % (Auto) [place] # Seg Neutrophils % Seg Neuts % (Manual) Lymphocytes % (Manual) Basophils % (Manual) Seg Neutrophils # Seg Neutrophils # Man Lymphocytes # (Manual) Basophils # (Manual) POC ABG pH 7.544 H POC ABG pCO2 32.0 L POC ABG pO2 155 H Sodium Potassium 3.1 L Chloride 93.9 L Carbon Dioxide BUN 30 H Creatinine 2.0 H Glucose 561 H* POC Glucose 497 H Hemoglobin A1c Calcium Phosphorus Magnesium AST Alkaline Phosphatase Total Protein Albumin Urine Creatinine Urine Total Protein 05/30/17 05/30/17 05/30/17 19:31 19:31 21:38 WBC RBC Hgb Hct MCH MCHC RDW Plt Count Lymph % (Auto) [place] % (Auto) [place] # Seg Neutrophils % Seg Neuts % (Manual) Lymphocytes % (Manual) Basophils % (Manual) Seg Neutrophils # Seg Neutrophils # Man Lymphocytes # (Manual) Basophils # (Manual) POC ABG pH POC ABG pCO2 POC ABG pO2 Sodium 135 L Potassium 2.9 L* Chloride 93.8 L 95.4 L Carbon Dioxide 20 L BUN 29 H 30 H Creatinine 2.2 H 2.3 H Glucose 478 H 364 H POC Glucose Hemoglobin A1c Calcium Phosphorus 2.20 L D Magnesium 1.40 L AST 42 H Alkaline Phosphatase 177 H Total Protein 5.4 L Albumin 2.4 L Urine Creatinine Urine Total Protein 05/30/17 05/31/17 05/31/17 23:06 02:17 05:27 WBC RBC Hgb Hct MCH MCHC RDW Plt Count Lymph % (Auto) [place] % (Auto) [place] # Seg Neutrophils % Seg Neuts % (Manual) Lymphocytes % (Manual) Basophils % (Manual) Seg Neutrophils # Seg Neutrophils # Man Lymphocytes # (Manual) Basophils # (Manual) POC ABG pH 7.489 H POC ABG pCO2 POC ABG pO2 Sodium Potassium 3.2 L 3.5 L Chloride Carbon Dioxide BUN 30 H 31 H Creatinine 2.5 H 2.4 H Glucose 288 H 246 H POC Glucose Hemoglobin A1c Calcium 8.3 L Phosphorus Magnesium AST Alkaline Phosphatase Total Protein Albumin Urine Creatinine Urine Total Protein 05/31/17 05/31/17 05/31/17 05:45 05:45 05:45 WBC RBC Hgb Hct MCH MCHC RDW Plt Count Lymph % (Auto) [place] % (Auto) [place] # Seg Neutrophils % Seg Neuts % (Manual) Lymphocytes % (Manual) Basophils % (Manual) Seg Neutrophils # Seg Neutrophils # Man Lymphocytes # (Manual) Basophils # (Manual) POC ABG pH POC ABG pCO2 POC ABG pO2 Sodium Potassium Chloride Carbon Dioxide BUN 32 H 30 H Creatinine 2.5 H 2.6 H Glucose 266 H 271 H POC Glucose Hemoglobin A1c 9.7 H Calcium 8.3 L 8.2 L Phosphorus Magnesium AST Alkaline Phosphatase 145 H Total Protein 4.7 L Albumin 1.8 L Urine Creatinine Urine Total Protein 05/31/17 05/31/17 05/31/17 08:18 09:20 12:18 WBC RBC Hgb Hct MCH MCHC RDW Plt Count Lymph % (Auto) [place] % (Auto) [place] # Seg Neutrophils % Seg Neuts % (Manual) Lymphocytes % (Manual) Basophils % (Manual) Seg Neutrophils # Seg Neutrophils # Man Lymphocytes # (Manual) Basophils # (Manual) POC ABG pH POC ABG pCO2 POC ABG pO2 Sodium Potassium Chloride Carbon Dioxide BUN Creatinine Glucose POC Glucose 300 H 254 H 170 H Hemoglobin A1c Calcium Phosphorus Magnesium AST Alkaline Phosphatase Total Protein Albumin Urine Creatinine Urine Total Protein 05/31/17 05/31/17 05/31/17 14:09 14:17 14:27 WBC RBC Hgb Hct MCH MCHC RDW Plt Count Lymph % (Auto) [place] % (Auto) [place] # Seg Neutrophils % Seg Neuts % (Manual) Lymphocytes % (Manual) Basophils % (Manual) Seg Neutrophils # Seg Neutrophils # Man Lymphocytes # (Manual) Basophils # (Manual) POC ABG pH POC ABG pCO2 POC ABG pO2 Sodium Potassium 3.4 L Chloride 107.1 H Carbon Dioxide BUN 30 H Creatinine 2.6 H Glucose 38 L* POC Glucose < 40 L 189 H Hemoglobin A1c Calcium 7.6 L Phosphorus Magnesium AST Alkaline Phosphatase Total Protein Albumin Urine Creatinine Urine Total Protein 05/31/17 05/31/17 05/31/17 15:01 16:01 17:19 WBC RBC Hgb Hct MCH MCHC RDW Plt Count Lymph % (Auto) [place] % (Auto) [place] # Seg Neutrophils % Seg Neuts % (Manual) Lymphocytes % (Manual) Basophils % (Manual) Seg Neutrophils # Seg Neutrophils # Man Lymphocytes # (Manual) Basophils # (Manual) POC ABG pH POC ABG pCO2 POC ABG pO2 Sodium Potassium Chloride Carbon Dioxide BUN Creatinine Glucose POC Glucose 130 H 165 H 131 H Hemoglobin A1c Calcium Phosphorus Magnesium AST Alkaline Phosphatase Total Protein Albumin Urine Creatinine Urine Total Protein 05/31/17 05/31/17 05/31/17 18:46 19:54 20:36 WBC RBC Hgb Hct MCH MCHC RDW Plt Count Lymph % (Auto) [place] % (Auto) [place] # Seg Neutrophils % Seg Neuts % (Manual) Lymphocytes % (Manual) Basophils % (Manual) Seg Neutrophils # Seg Neutrophils # Man Lymphocytes # (Manual) Basophils # (Manual) POC ABG pH POC ABG pCO2 POC ABG pO2 Sodium Potassium Chloride Carbon Dioxide BUN 29 H Creatinine 2.4 H Glucose 124 H POC Glucose 128 H 157 H Hemoglobin A1c Calcium 7.9 L Phosphorus Magnesium AST Alkaline Phosphatase Total Protein Albumin Urine Creatinine Urine Total Protein 05/31/17 06/01/17 06/01/17 21:41 03:22 04:06 WBC RBC Hgb Hct MCH MCHC RDW Plt Count Lymph % (Auto) [place] % (Auto) [place] # Seg Neutrophils % Seg Neuts % (Manual) Lymphocytes % (Manual) Basophils % (Manual) Seg Neutrophils # Seg Neutrophils # Man Lymphocytes # (Manual) Basophils # (Manual) POC ABG pH POC ABG pCO2 POC ABG pO2 Sodium Potassium Chloride Carbon Dioxide 19 L BUN 29 H Creatinine 2.6 H Glucose 205 H POC Glucose 158 H 251 H Hemoglobin A1c Calcium 7.8 L Phosphorus Magnesium AST Alkaline Phosphatase Total Protein Albumin Urine Creatinine Urine Total Protein 06/01/17 06/01/17 06/01/17 04:30 09:15 09:59 WBC 19.7 H RBC Hgb 10.0 L Hct MCH 27 L MCHC RDW 17.1 H Plt Count Lymph % (Auto) [place] % (Auto) [place] # Seg Neutrophils % Seg Neuts % (Manual) Lymphocytes % (Manual) Basophils % (Manual) Seg Neutrophils # Seg Neutrophils # Man Lymphocytes # (Manual) Basophils # (Manual) POC ABG pH 7.464 H POC ABG pCO2 31.3 L POC ABG pO2 Sodium Potassium Chloride Carbon Dioxide BUN Creatinine Glucose POC Glucose 330 H Hemoglobin A1c Calcium Phosphorus Magnesium AST Alkaline Phosphatase Total Protein Albumin Urine Creatinine Urine Total Protein 06/01/17 06/01/17 06/01/17 11:36 12:25 13:43 WBC RBC Hgb Hct MCH MCHC RDW Plt Count Lymph % (Auto) [place] % (Auto) [place] # Seg Neutrophils % Seg Neuts % (Manual) Lymphocytes % (Manual) Basophils % (Manual) Seg Neutrophils # Seg Neutrophils # Man Lymphocytes # (Manual) Basophils # (Manual) POC ABG pH POC ABG pCO2 POC ABG pO2 Sodium Potassium Chloride Carbon Dioxide BUN Creatinine Glucose POC Glucose 431 H 434 H 445 H Hemoglobin A1c Calcium Phosphorus Magnesium AST Alkaline Phosphatase Total Protein Albumin Urine Creatinine Urine Total Protein 06/01/17 06/01/17 06/01/17 14:26 15:46 16:03 WBC RBC Hgb Hct MCH MCHC RDW Plt Count Lymph % (Auto) [place] % (Auto) [place] # Seg Neutrophils % Seg Neuts % (Manual) Lymphocytes % (Manual) Basophils % (Manual) Seg Neutrophils # Seg Neutrophils # Man Lymphocytes # (Manual) Basophils # (Manual) POC ABG pH POC ABG pCO2 POC ABG pO2 Sodium Potassium Chloride Carbon Dioxide BUN Creatinine Glucose POC Glucose 310 H 292 H 244 H Hemoglobin A1c Calcium Phosphorus Magnesium AST Alkaline Phosphatase Total Protein Albumin Urine Creatinine Urine Total Protein 06/01/17 06/01/17 06/01/17 16:59 17:49 19:05 WBC RBC Hgb Hct MCH MCHC RDW Plt Count Lymph % (Auto) [place] % (Auto) [place] # Seg Neutrophils % Seg Neuts % (Manual) Lymphocytes % (Manual) Basophils % (Manual) Seg Neutrophils # Seg Neutrophils # Man Lymphocytes # (Manual) Basophils # (Manual) POC ABG pH POC ABG pCO2 POC ABG pO2 Sodium Potassium Chloride Carbon Dioxide BUN Creatinine Glucose POC Glucose 260 H 203 H 156 H Hemoglobin A1c Calcium Phosphorus Magnesium AST Alkaline Phosphatase Total Protein Albumin Urine Creatinine Urine Total Protein 06/02/17 06/02/17 06/02/17 00:09 01:06 02:31 WBC RBC Hgb Hct MCH MCHC RDW Plt Count Lymph % (Auto) [place] % (Auto) [place] # Seg Neutrophils % Seg Neuts % (Manual) Lymphocytes % (Manual) Basophils % (Manual) Seg Neutrophils # Seg Neutrophils # Man Lymphocytes # (Manual) Basophils # (Manual) POC ABG pH POC ABG pCO2 POC ABG pO2 Sodium Potassium Chloride Carbon Dioxide BUN Creatinine Glucose POC Glucose 137 H 146 H 182 H Hemoglobin A1c Calcium Phosphorus Magnesium AST Alkaline Phosphatase Total Protein Albumin Urine Creatinine Urine Total Protein 06/02/17 06/02/17 06/02/17 04:03 04:24 04:24 WBC 21.0 H RBC 3.62 L Hgb Hct 29.6 L MCH MCHC RDW 16.5 H Plt Count Lymph % (Auto) [place] % (Auto) [place] # Seg Neutrophils % Seg Neuts % (Manual) 98.0 H Lymphocytes % (Manual) 1.0 L Basophils % (Manual) Seg Neutrophils # Seg Neutrophils # Man 20.6 H Lymphocytes # (Manual) 0.2 L Basophils # (Manual) POC ABG pH POC ABG pCO2 POC ABG pO2 Sodium Potassium Chloride Carbon Dioxide 20 L BUN 36 H Creatinine 2.8 H Glucose 137 H POC Glucose 150 H Hemoglobin A1c Calcium 7.5 L Phosphorus 4.60 H Magnesium 1.50 L AST Alkaline Phosphatase 132 H Total Protein 4.1 L Albumin 1.7 L Urine Creatinine Urine Total Protein 06/02/17 06/02/17 06/02/17 05:01 05:14 06:20 WBC RBC Hgb Hct MCH MCHC RDW Plt Count Lymph % (Auto) [place] % (Auto) [place] # Seg Neutrophils % Seg Neuts % (Manual) Lymphocytes % (Manual) Basophils % (Manual) Seg Neutrophils # Seg Neutrophils # Man Lymphocytes # (Manual) Basophils # (Manual) POC ABG pH 7.517 H POC ABG pCO2 28.4 L POC ABG pO2 67 L Sodium Potassium Chloride Carbon Dioxide BUN Creatinine Glucose POC Glucose 137 H 163 H Hemoglobin A1c Calcium Phosphorus Magnesium AST Alkaline Phosphatase Total Protein Albumin Urine Creatinine Urine Total Protein 06/02/17 06/02/17 06/02/17 07:43 09:40 10:18 WBC RBC Hgb Hct MCH MCHC RDW Plt Count Lymph % (Auto) [place] % (Auto) [place] # Seg Neutrophils % Seg Neuts % (Manual) Lymphocytes % (Manual) Basophils % (Manual) Seg Neutrophils # Seg Neutrophils # Man Lymphocytes # (Manual) Basophils # (Manual) POC ABG pH POC ABG pCO2 POC ABG pO2 Sodium Potassium Chloride Carbon Dioxide BUN Creatinine Glucose POC Glucose 135 H 196 H Hemoglobin A1c Calcium Phosphorus Magnesium AST Alkaline Phosphatase Total Protein Albumin Urine Creatinine Urine Total Protein < 4 L 06/02/17 06/02/17 06/02/17 10:33 11:55 17:39 WBC RBC Hgb Hct MCH MCHC RDW Plt Count Lymph % (Auto) [place] % (Auto) [place] # Seg Neutrophils % Seg Neuts % (Manual) Lymphocytes % (Manual) Basophils % (Manual) Seg Neutrophils # Seg Neutrophils # Man Lymphocytes # (Manual) Basophils # (Manual) POC ABG pH POC ABG pCO2 POC ABG pO2 Sodium Potassium Chloride Carbon Dioxide BUN Creatinine Glucose POC Glucose 188 H 110 H 150 H Hemoglobin A1c Calcium Phosphorus Magnesium AST Alkaline Phosphatase Total Protein Albumin Urine Creatinine Urine Total Protein 06/02/17 06/02/17 06/03/17 18:12 21:32 02:02 WBC RBC Hgb Hct MCH MCHC RDW Plt Count Lymph % (Auto) [place] % (Auto) [place] # Seg Neutrophils % Seg Neuts % (Manual) Lymphocytes % (Manual) Basophils % (Manual) Seg Neutrophils # Seg Neutrophils # Man Lymphocytes # (Manual) Basophils # (Manual) POC ABG pH POC ABG pCO2 POC ABG pO2 Sodium Potassium Chloride Carbon Dioxide BUN Creatinine Glucose POC Glucose 131 H 143 H 191 H Hemoglobin A1c Calcium Phosphorus Magnesium AST Alkaline Phosphatase Total Protein Albumin Urine Creatinine Urine Total Protein 06/03/17 06/03/17 06/03/17 04:14 04:14 05:06 WBC 21.1 H RBC Hgb Hct MCH 27 L MCHC RDW 15.9 H Plt Count 447 H Lymph % (Auto) [place] % (Auto) [place] # Seg Neutrophils % Seg Neuts % (Manual) 94.0 H Lymphocytes % (Manual) 3.0 L Basophils % (Manual) Seg Neutrophils # Seg Neutrophils # Man 19.8 H Lymphocytes # (Manual) 0.6 L Basophils # (Manual) POC ABG pH POC ABG pCO2 28.6 L POC ABG pO2 112 H Sodium Potassium Chloride Carbon Dioxide 14 L BUN 45 H Creatinine 2.8 H Glucose 211 H POC Glucose Hemoglobin A1c Calcium 8.0 L Phosphorus Magnesium AST Alkaline Phosphatase Total Protein Albumin Urine Creatinine Urine Total Protein 06/03/17 06/03/17 06/03/17 06:00 10:20 13:43 WBC RBC Hgb Hct MCH MCHC RDW Plt Count Lymph % (Auto) [place] % (Auto) [place] # Seg Neutrophils % Seg Neuts % (Manual) Lymphocytes % (Manual) Basophils % (Manual) Seg Neutrophils # Seg Neutrophils # Man Lymphocytes # (Manual) Basophils # (Manual) POC ABG pH POC ABG pCO2 POC ABG pO2 Sodium Potassium Chloride Carbon Dioxide BUN Creatinine Glucose POC Glucose 224 H 226 H 296 H Hemoglobin A1c Calcium Phosphorus Magnesium AST Alkaline Phosphatase Total Protein Albumin Urine Creatinine Urine Total Protein 06/03/17 06/03/17 06/03/17 17:38 19:23 20:45 WBC RBC Hgb Hct MCH MCHC RDW Plt Count Lymph % (Auto) [place] % (Auto) [place] # Seg Neutrophils % Seg Neuts % (Manual) Lymphocytes % (Manual) Basophils % (Manual) Seg Neutrophils # Seg Neutrophils # Man Lymphocytes # (Manual) Basophils # (Manual) POC ABG pH POC ABG pCO2 POC ABG pO2 Sodium Potassium Chloride Carbon Dioxide BUN Creatinine Glucose POC Glucose 295 H 275 H 338 H Hemoglobin A1c Calcium Phosphorus Magnesium AST Alkaline Phosphatase Total Protein Albumin Urine Creatinine Urine Total Protein 06/03/17 06/03/17 06/04/17 21:50 23:08 00:16 WBC RBC Hgb Hct MCH MCHC RDW Plt Count Lymph % (Auto) [place] % (Auto) [place] # Seg Neutrophils % Seg Neuts % (Manual) Lymphocytes % (Manual) Basophils % (Manual) Seg Neutrophils # Seg Neutrophils # Man Lymphocytes # (Manual) Basophils # (Manual) POC ABG pH POC ABG pCO2 POC ABG pO2 Sodium Potassium Chloride Carbon Dioxide BUN Creatinine Glucose POC Glucose 223 H 214 H 226 H Hemoglobin A1c Calcium Phosphorus Magnesium AST Alkaline Phosphatase Total Protein Albumin Urine Creatinine Urine Total Protein 06/04/17 06/04/17 06/04/17 01:05 02:07 03:27 WBC RBC Hgb Hct MCH MCHC RDW Plt Count Lymph % (Auto) [place] % (Auto) [place] # Seg Neutrophils % Seg Neuts % (Manual) Lymphocytes % (Manual) Basophils % (Manual) Seg Neutrophils # Seg Neutrophils # Man Lymphocytes # (Manual) Basophils # (Manual) POC ABG pH POC ABG pCO2 POC ABG pO2 Sodium Potassium Chloride Carbon Dioxide BUN Creatinine Glucose POC Glucose 217 H 229 H 185 H Hemoglobin A1c Calcium Phosphorus Magnesium AST Alkaline Phosphatase Total Protein Albumin Urine Creatinine Urine Total Protein 06/04/17 06/04/17 06/04/17 03:52 04:05 04:05 WBC 19.6 H RBC Hgb Hct MCH 26 L MCHC RDW 15.6 H Plt Count 564 H Lymph % (Auto) 7.3 L [place] % (Auto) 10.8 H [place] # 2.1 H Seg Neutrophils % 81.4 H Seg Neuts % (Manual) Lymphocytes % (Manual) Basophils % (Manual) Seg Neutrophils # 15.9 H Seg Neutrophils # Man Lymphocytes # (Manual) Basophils # (Manual) POC ABG pH POC ABG pCO2 POC ABG pO2 Sodium Potassium Chloride Carbon Dioxide 17 L BUN 52 H Creatinine 2.5 H Glucose 163 H POC Glucose 181 H Hemoglobin A1c Calcium 7.9 L Phosphorus Magnesium AST Alkaline Phosphatase Total Protein Albumin Urine Creatinine Urine Total Protein 06/04/17 06/04/17 06/04/17 04:56 05:39 06:12 WBC RBC Hgb Hct MCH MCHC RDW Plt Count Lymph % (Auto) [place] % (Auto) [place] # Seg Neutrophils % Seg Neuts % (Manual) Lymphocytes % (Manual) Basophils % (Manual) Seg Neutrophils # Seg Neutrophils # Man Lymphocytes # (Manual) Basophils # (Manual) POC ABG pH 7.486 H POC ABG pCO2 26.8 L POC ABG pO2 Sodium Potassium Chloride Carbon Dioxide BUN Creatinine Glucose POC Glucose 208 H 225 H Hemoglobin A1c Calcium Phosphorus Magnesium AST Alkaline Phosphatase Total Protein Albumin Urine Creatinine Urine Total Protein 06/04/17 06/04/17 06/04/17 07:07 08:06 09:15 WBC RBC Hgb Hct MCH MCHC RDW Plt Count Lymph % (Auto) [place] % (Auto) [place] # Seg Neutrophils % Seg Neuts % (Manual) Lymphocytes % (Manual) Basophils % (Manual) Seg Neutrophils # Seg Neutrophils # Man Lymphocytes # (Manual) Basophils # (Manual) POC ABG pH POC ABG pCO2 POC ABG pO2 Sodium Potassium Chloride Carbon Dioxide BUN Creatinine Glucose POC Glucose 201 H 171 H 178 H Hemoglobin A1c Calcium Phosphorus Magnesium AST Alkaline Phosphatase Total Protein Albumin Urine Creatinine Urine Total Protein 06/04/17 06/04/17 06/04/17 10:16 12:22 17:21 WBC RBC Hgb Hct MCH MCHC RDW Plt Count Lymph % (Auto) [place] % (Auto) [place] # Seg Neutrophils % Seg Neuts % (Manual) Lymphocytes % (Manual) Basophils % (Manual) Seg Neutrophils # Seg Neutrophils # Man Lymphocytes # (Manual) Basophils # (Manual) POC ABG pH POC ABG pCO2 POC ABG pO2 Sodium Potassium Chloride Carbon Dioxide BUN Creatinine Glucose POC Glucose 191 H 188 H Hemoglobin A1c Calcium Phosphorus Magnesium AST Alkaline Phosphatase Total Protein Albumin Urine Creatinine 78.7 H Urine Total Protein 197 H 06/04/17 06/04/17 06/05/17 17:56 22:10 00:00 WBC RBC Hgb Hct MCH MCHC RDW Plt Count Lymph % (Auto) [place] % (Auto) [place] # Seg Neutrophils % Seg Neuts % (Manual) Lymphocytes % (Manual) Basophils % (Manual) Seg Neutrophils # Seg Neutrophils # Man Lymphocytes # (Manual) Basophils # (Manual) POC ABG pH POC ABG pCO2 POC ABG pO2 Sodium Potassium Chloride Carbon Dioxide 17 L BUN 55 H Creatinine 2.3 H Glucose 300 H POC Glucose 266 H 337 H Hemoglobin A1c Calcium 7.4 L Phosphorus Magnesium AST Alkaline Phosphatase Total Protein Albumin Urine Creatinine Urine Total Protein 06/05/17 06/05/17 06/05/17 03:26 04:11 05:13 WBC RBC Hgb Hct MCH MCHC RDW Plt Count Lymph % (Auto) [place] % (Auto) [place] # Seg Neutrophils % Seg Neuts % (Manual) Lymphocytes % (Manual) Basophils % (Manual) Seg Neutrophils # Seg Neutrophils # Man Lymphocytes # (Manual) Basophils # (Manual) POC ABG pH 7.586 H POC ABG pCO2 22.6 L POC ABG pO2 179 H Sodium Potassium Chloride Carbon Dioxide 19 L BUN 55 H Creatinine 2.2 H Glucose 226 H POC Glucose 220 H Hemoglobin A1c Calcium 7.7 L Phosphorus Magnesium AST Alkaline Phosphatase Total Protein Albumin Urine Creatinine Urine Total Protein 06/05/17 06/05/17 06/05/17 12:42 18:24 21:23 WBC RBC Hgb Hct MCH MCHC RDW Plt Count Lymph % (Auto) [place] % (Auto) [place] # Seg Neutrophils % Seg Neuts % (Manual) Lymphocytes % (Manual) Basophils % (Manual) Seg Neutrophils # Seg Neutrophils # Man Lymphocytes # (Manual) Basophils # (Manual) POC ABG pH POC ABG pCO2 POC ABG pO2 Sodium Potassium Chloride Carbon Dioxide BUN Creatinine Glucose POC Glucose 168 H 121 H 166 H Hemoglobin A1c Calcium Phosphorus Magnesium AST Alkaline Phosphatase Total Protein Albumin Urine Creatinine Urine Total Protein 06/06/17 06/06/17 06/06/17 00:14 04:11 06:19 WBC RBC Hgb Hct MCH MCHC RDW Plt Count Lymph % (Auto) [place] % (Auto) [place] # Seg Neutrophils % Seg Neuts % (Manual) Lymphocytes % (Manual) Basophils % (Manual) Seg Neutrophils # Seg Neutrophils # Man Lymphocytes # (Manual) Basophils # (Manual) POC ABG pH POC ABG pCO2 33.0 L POC ABG pO2 Sodium Potassium Chloride Carbon Dioxide BUN Creatinine Glucose POC Glucose 179 H 180 H Hemoglobin A1c Calcium Phosphorus Magnesium AST Alkaline Phosphatase Total Protein Albumin Urine Creatinine Urine Total Protein 06/06/17 06/06/17 06/06/17 12:19 18:38 20:01 WBC RBC Hgb Hct MCH MCHC RDW Plt Count Lymph % (Auto) [place] % (Auto) [place] # Seg Neutrophils % Seg Neuts % (Manual) Lymphocytes % (Manual) Basophils % (Manual) Seg Neutrophils # Seg Neutrophils # Man Lymphocytes # (Manual) Basophils # (Manual) POC ABG pH POC ABG pCO2 POC ABG pO2 Sodium Potassium Chloride Carbon Dioxide BUN Creatinine Glucose POC Glucose 123 H 56 L 65 L Hemoglobin A1c Calcium Phosphorus Magnesium AST Alkaline Phosphatase Total Protein Albumin Urine Creatinine Urine Total Protein 06/06/17 06/07/17 06/07/17 23:51 04:25 05:29 WBC RBC Hgb Hct MCH MCHC RDW Plt Count Lymph % (Auto) [place] % (Auto) [place] # Seg Neutrophils % Seg Neuts % (Manual) Lymphocytes % (Manual) Basophils % (Manual) Seg Neutrophils # Seg Neutrophils # Man Lymphocytes # (Manual) Basophils # (Manual) POC ABG pH 7.470 H POC ABG pCO2 33.6 L POC ABG pO2 Sodium Potassium Chloride Carbon Dioxide BUN Creatinine Glucose POC Glucose 118 H 183 H Hemoglobin A1c Calcium Phosphorus Magnesium AST Alkaline Phosphatase Total Protein Albumin Urine Creatinine Urine Total Protein 06/07/17 06/07/17 06/07/17 07:51 12:00 18:08 WBC RBC Hgb Hct MCH MCHC RDW Plt Count Lymph % (Auto) [place] % (Auto) [place] # Seg Neutrophils % Seg Neuts % (Manual) Lymphocytes % (Manual) Basophils % (Manual) Seg Neutrophils # Seg Neutrophils # Man Lymphocytes # (Manual) Basophils # (Manual) POC ABG pH POC ABG pCO2 POC ABG pO2 Sodium 135 L Potassium Chloride Carbon Dioxide 21 L BUN 50 H Creatinine 1.8 H Glucose 232 H POC Glucose 361 H 249 H Hemoglobin A1c Calcium 8.0 L Phosphorus Magnesium AST Alkaline Phosphatase Total Protein Albumin Urine Creatinine Urine Total Protein 06/07/17 06/08/17 06/08/17 23:53 05:25 11:50 WBC RBC Hgb Hct MCH MCHC RDW Plt Count Lymph % (Auto) [place] % (Auto) [place] # Seg Neutrophils % Seg Neuts % (Manual) Lymphocytes % (Manual) Basophils % (Manual) Seg Neutrophils # Seg Neutrophils # Man Lymphocytes # (Manual) Basophils # (Manual) POC ABG pH POC ABG pCO2 POC ABG pO2 Sodium Potassium Chloride Carbon Dioxide BUN Creatinine Glucose POC Glucose 190 H 136 H 166 H Hemoglobin A1c Calcium Phosphorus Magnesium AST Alkaline Phosphatase Total Protein Albumin Urine Creatinine Urine Total Protein 06/08/17 06/08/17 06/08/17 14:20 14:20 19:05 WBC 15.7 H RBC 3.49 L Hgb 9.4 L Hct 27.9 L MCH 27 L MCHC RDW 15.3 H Plt Count 590 H Lymph % (Auto) [place] % (Auto) [place] # Seg Neutrophils % Seg Neuts % (Manual) Lymphocytes % (Manual) Basophils % (Manual) Seg Neutrophils # Seg Neutrophils # Man Lymphocytes # (Manual) Basophils # (Manual) POC ABG pH POC ABG pCO2 POC ABG pO2 Sodium Potassium Chloride Carbon Dioxide BUN 55 H Creatinine 1.7 H Glucose 117 H POC Glucose 135 H Hemoglobin A1c Calcium Phosphorus Magnesium AST Alkaline Phosphatase Total Protein Albumin Urine Creatinine Urine Total Protein 06/08/17 06/08/17 06/09/17 21:52 23:55 04:18 WBC RBC Hgb Hct MCH MCHC RDW Plt Count Lymph % (Auto) [place] % (Auto) [place] # Seg Neutrophils % Seg Neuts % (Manual) Lymphocytes % (Manual) Basophils % (Manual) Seg Neutrophils # Seg Neutrophils # Man Lymphocytes # (Manual) Basophils # (Manual) POC ABG pH POC ABG pCO2 POC ABG pO2 Sodium Potassium Chloride Carbon Dioxide BUN 51 H Creatinine 1.6 H Glucose POC Glucose 186 H 209 H Hemoglobin A1c Calcium Phosphorus Magnesium AST Alkaline Phosphatase Total Protein Albumin Urine Creatinine Urine Total Protein 06/09/17 06/09/17 06/09/17 09:56 12:42 18:09 WBC RBC Hgb Hct MCH MCHC RDW Plt Count Lymph % (Auto) [place] % (Auto) [place] # Seg Neutrophils % Seg Neuts % (Manual) Lymphocytes % (Manual) Basophils % (Manual) Seg Neutrophils # Seg Neutrophils # Man Lymphocytes # (Manual) Basophils # (Manual) POC ABG pH POC ABG pCO2 POC ABG pO2 Sodium Potassium Chloride Carbon Dioxide BUN Creatinine Glucose POC Glucose 63 L 142 H 166 H Hemoglobin A1c Calcium Phosphorus Magnesium AST Alkaline Phosphatase Total Protein Albumin Urine Creatinine Urine Total Protein 06/09/17 06/10/17 06/10/17 23:39 03:24 04:28 WBC 15.1 H RBC 2.99 L Hgb 8.1 L Hct 23.6 L MCH 27 L MCHC 35 H RDW 15.4 H Plt Count 500 H Lymph % (Auto) [place] % (Auto) [place] # Seg Neutrophils % Seg Neuts % (Manual) Lymphocytes % (Manual) Basophils % (Manual) Seg Neutrophils # Seg Neutrophils # Man Lymphocytes # (Manual) Basophils # (Manual) POC ABG pH 7.461 H POC ABG pCO2 POC ABG pO2 131 H Sodium Potassium Chloride Carbon Dioxide BUN Creatinine Glucose POC Glucose 284 H Hemoglobin A1c Calcium Phosphorus Magnesium AST Alkaline Phosphatase Total Protein Albumin Urine Creatinine Urine Total Protein 06/10/17 06/10/17 06/10/17 04:28 05:10 12:41 WBC RBC Hgb Hct MCH MCHC RDW Plt Count Lymph % (Auto) [place] % (Auto) [place] # Seg Neutrophils % Seg Neuts % (Manual) Lymphocytes % (Manual) Basophils % (Manual) Seg Neutrophils # Seg Neutrophils # Man Lymphocytes # (Manual) Basophils # (Manual) POC ABG pH POC ABG pCO2 POC ABG pO2 Sodium Potassium Chloride Carbon Dioxide BUN 53 H Creatinine 1.8 H Glucose 185 H POC Glucose 190 H 50 L Hemoglobin A1c Calcium Phosphorus Magnesium AST Alkaline Phosphatase Total Protein Albumin Urine Creatinine Urine Total Protein 06/10/17 06/10/17 06/11/17 14:35 18:31 00:09 WBC RBC Hgb Hct MCH MCHC RDW Plt Count Lymph % (Auto) [place] % (Auto) [place] # Seg Neutrophils % Seg Neuts % (Manual) Lymphocytes % (Manual) Basophils % (Manual) Seg Neutrophils # Seg Neutrophils # Man Lymphocytes # (Manual) Basophils # (Manual) POC ABG pH POC ABG pCO2 POC ABG pO2 Sodium Potassium Chloride Carbon Dioxide BUN Creatinine Glucose POC Glucose 58 L 55 L 126 H Hemoglobin A1c Calcium Phosphorus Magnesium AST Alkaline Phosphatase Total Protein Albumin Urine Creatinine Urine Total Protein 06/11/17 06/11/17 06/11/17 05:32 06:01 06:03 WBC 15.6 H RBC 3.03 L Hgb 8.3 L Hct 24.0 L MCH MCHC 35 H RDW Plt Count 492 H Lymph % (Auto) [place] % (Auto) [place] # Seg Neutrophils % Seg Neuts % (Manual) Lymphocytes % (Manual) Basophils % (Manual) Seg Neutrophils # Seg Neutrophils # Man Lymphocytes # (Manual) Basophils # (Manual) POC ABG pH POC ABG pCO2 POC ABG pO2 Sodium Potassium Chloride Carbon Dioxide BUN 55 H Creatinine 1.8 H Glucose 228 H POC Glucose 219 H Hemoglobin A1c Calcium Phosphorus Magnesium AST Alkaline Phosphatase Total Protein Albumin Urine Creatinine Urine Total Protein
[2017-06-11] MEDS: ZAROXOLYN PO SCH ×2 (10:00→21:53)
[2017-06-11] MEDS ORDERED: NEO SYNEPHRINE/NS Syringe(OR USE) IV SCH (10:00)
[2017-06-11] MEDS ORDERED: VERSED IV SCH (10:00)
[2017-06-11] MEDS ORDERED: ATROPINE IV NR (10:00)
[2017-06-11] MEDS ORDERED: WATER FOR IRRIG STERILE IR ONE (11:07)
[2017-06-11] MEDS ORDERED: NACL 0.9% IR NR (11:24)
[2017-06-11] MEDS ORDERED: SUBLIMAZE ONE (11:43)
[2017-06-11] MEDS ORDERED: ANCEF/STERILE WATER 2 GM/20 ML 2 GM/20 ML SYRINGE IV NR (12:00)
[2017-06-11] MEDS ORDERED: SUBLIMAZE IV ONE (12:31)
--- NOTE | 2017-06-11 12:52 | Procedure Note ---
Date of procedure: 06/11/17 Pre-op diagnosis: vent dependent respiratory failure Post-op diagnosis: same Procedure: Percutaneous tracheostomy tube placement Findings: The patient was identified in the hospital bed in the ICU. Consent was verified on the chart and timeout was performed. The neck was prepped and draped in usual sterile fashion. Conscious sedation was administered by Dr. Berg. Dr. Berg performed fiberoptic bronchoscopy throughout the entire procedure (see separate procedure note). 1% lidocaine was infiltrated into the skin and subcutaneous tissue approximately 2 fingerbreadths above the sternal notch. A 2 cm incision was made in a horizontal fashion using a 15 blade. Using a hemostat the soft tissues were bluntly dissected until the trachea was encountered. Using a finder needle the trachea was entered under direct visualization. The introducer needle was then used to enter the trachea under direct visualization, through which the wire was passed down the trachea towards the natalie. Introducer needle was then removed. The trachea was then serially dilated, after which a 8 Romans[place] Shiley tracheostomy tube was inserted. The balloon was inflated, patient placed back on ventilator, and tidal volumes assessed which were satisfactory. The bronchoscope was then placed this through the tracheostomy and showed good positioning of the tracheostomy above the natalie and no bleeding. The tracheostomy was sutured into place using 2-0 Prolene sutures. A drain sponge was placed between the skin and tracheostomy. The tracheostomy was secured to the patient's neck using a tracheostomy strap. A post op chest x-ray showed the tracheostomy in good positioning. The patient tolerated the procedure well. All sharps were disposed of appropriately. The family was updated post procedure. Implants: 8F tracheostomy tube Anesthesia: MAC, local Surgeon: HOLLIS MITCHELL Estimated blood loss: minimal Pathology: none Condition: stable Disposition: ICU
--- NOTE | 2017-06-11 12:58 | Procedure Note ---
Date of procedure: 06/11/17 Pre-op diagnosis: anoxic brain injury Post-op diagnosis: same Procedure: Bronchoscopic Report Written Consent was on the chart. Pre-op Dx Respiratory Failure Post-op Dx same Procedure Bronchoscopy for tracheostomy placement (CPT 15977) Surgeon Carlos Davidson MD Surgeon performing tracheostomy Lionel Lazo, Anesth MAC EBL min Specimen none Findings Complications Disposition Stable in ICU Indications Procedure, risks, benefits, alternatives have been discussed. Consent was obtained. Procedure After time out was called, bronchoscopy was begun. Airway was evaluated. Secretions were aspirated. ETT was pulled back to about 16cm at the teeth. Dr. Lazo performed the tracheostomy under bronchoscopic guidance. Introducer needle was seen safely entering the trachea. Trach was placed after serial dilation. Bronchoscope was then inserted through the trach to confirm position. There was several centimeters of space above the natalie. There was no significant bleeding. Patient had good inspiratory and expiratory tidal volumes. Pt was stable in ICU. Total Conscious Sedation time = 45min. 5mg VSD, 350mcg FTL, 100mg Propofol, and 10mg vecuronium given. Continuous monitor was done during the case and for 30min after the case. The patient remained stable the entire time. Anesthesia: MAC Surgeon: TONEY DAVIDSON Estimated blood loss: none Pathology: none Condition: stable Disposition: ICU
--- NOTE | 2017-06-11 12:59 | Procedure Note ---
Date of procedure: 06/11/17 Pre-op diagnosis: Anoxic Brain Injury Post-op diagnosis: same Procedure: PEG placement (CPT 77593) Timeout was called EGD scope was advanced into the stomach. Stomach was insufflated. Site was identified by good transillumination, at least 3 fingerbreadths away from costal margin and not too close to pylorus. After sterile prep and drape, Dr. Mitchell anesthetized the planned insertion site and inserted the introducer needle. Wire was inserted and pulled back into the mouth. PEG tube was attached and then pulled into position by Dr. Mitchell. EGD scope was re-inserted and button was identified. There was no bleeding and button was seen to be in good position. I then proceeded to evaluate the rest of the stomach and proximal portion of duodenum. The esophagus was evaluated as the scope was being pulled out. Pt tolerated the procedure well. The PEG collar was at 3.5cm at the skin level. Implants: 20Fr PEG tube Anesthesia: MAC Surgeon: TONEY DAVIDSON Rn Social Work: HOLLIS MITCHELL Estimated blood loss: minimal Pathology: none Condition: stable Disposition: ICU
[2017-06-11] MEDS: PEPCID PO SCH ×2 (13:22→21:59)
--- NOTE | 2017-06-11 13:54 | XRay Report ---
AP CHEST: HISTORY: Tracheostomy placement The endotracheal tube has been replaced with a tracheostomy since 06/08/17. The nasogastric tube has been removed. Mild cardiomegaly is stable. The lungs are generally clear. There is minor segmental atelectasis in right lower lobe. No pleural effusion, pneumothorax or pneumomediastinum. IMPRESSION: Mild cardiomegaly.
[2017-06-11] MEDS: ALDACTONE PO SCH (17:39)
[2017-06-11] MEDS: COREG PO SCH ×2 (17:39→21:47)
[2017-06-11] MEDS: LOVENOX SUB-Q SCH (17:40)
[2017-06-11] MEDS: KEPPRA PO SCH ×2 (17:53→21:48)
[2017-06-12 04:43] LABS: Mean Corpuscular HGB Conc 35 % (30-34); Mean Corpuscular Hemoglobin 28 pg (28-32); Mean Corpuscular Volume 79 fl (79-97); Platelet Count 460 K/mm3 (140-440); Red Cell Distribution Width 15.1 % (13.2-15.2)
[2017-06-12] MEDS: HumaLOG SUB-Q SCH ×5 (05:40→23:36)
[2017-06-12] MEDS ORDERED: D50W (25GM) Syringe IV ONE (05:42)
[2017-06-12] MEDS: LASIX IV SCH (06:33)
[2017-06-12] MEDS: APRESOLINE PO SCH ×3 (06:36→21:41)
[2017-06-12] MEDS: NAMENDA PO SCH ×2 (06:41→17:43)
[2017-06-12] MEDS: ISORDIL TITRADOSE PO SCH ×3 (06:42→21:43)
[2017-06-12] MEDS ORDERED: D5NS 1,000 ML IV ONE ×2 (08:14→12:00)
[2017-06-12] MEDS: D50W (25GM) Syringe IV PRN (08:26)
--- NOTE | 2017-06-12 08:43 | Progress Note ---
Assessment and Plan Assessment and plan: Patient had 36-year-old -[place] female was admitted to the floor for seizure episode, altered mental status, acute hypoxic respiratory failure, patient was intubated in the emergency department patient had PEA and resuscitated successfully. Acute hypoxic respiratory failure - still intubated, on mechanical ventilation>96hrs -Had PEG and Trach, yesterday. Acute encephalopathy with anoxic hypoxic brain injury - treat underlying cause Seizure disorder-complex partial - Patient is on IV Keppra - Cont Namenda -Neurology following Cardiomyopathy -Cardiology following Hyperosmolar hyperglycemic syndrome in Diabetes mellitus type 2 - She was on Insulin drip, now on subcut Insulin Hypoglycemia. Given doses of 50%Dextrose. Now started on 5%dextrose Acute kidney injury. -Creatinine 1.8 Nephrology following Hypertension. BP stable on Hydralazine 50mg q 8hrs. DVT prophylaxis with Lovenox Disposition - Continue ICU care. poor prognosis POOR PROGNOSIS History Interval history: Still intubated, Unresponsive, PEG and Trach done yesterday Hospitalist Physical - Physical exam Narrative exam: Gen appearance: Intubated, lying in bed, obese HEENT: facial edema, swollen tongue,intubated orally Neck:supple, no JVD, Tracheostomy Lungs: Coarse breath sounds bilaterally, no wheeze Heart: S1 and S2 regular, no murmurs, rubs or gallop Abdomen: soft, non tender, non distended, normal bowel sounds, PEG tube Ext: Edema both upper and lower extremities, no cyanosis,anasarca Neuro: Intubated, unresponsive - Constitutional Vitals: Temp Pulse Resp BP Pulse Ox 98.6 F 92 H 19 125/75 99 06/12/17 08:00 06/12/17 06:42 06/12/17 06:30 06/12/17 06:42 06/12/17 06:30 General appearance: Present: other (unresponsive, on the ventilator) Results - Labs CBC & Chem 7: 06/12/17 04:24 06/12/17 08:47 Labs: Laboratory Last Values WBC 17.4 K/mm3 (4.5-11.0) H 06/12/17 04:24 RBC 2.90 M/mm3 (3.65-5.03) L 06/12/17 04:24 Hgb 8.0 gm/dl (10.1-14.3) L 06/12/17 04:24 Hct 23.0 % (30.3-42.9) L 06/12/17 04:24 MCV 79 fl (79-97) 06/12/17 04:24 MCH 28 pg (28-32) 06/12/17 04:24 MCHC 35 % (30-34) H 06/12/17 04:24 RDW 15.1 % (13.2-15.2) 06/12/17 04:24 Plt Count 460 K/mm3 (140-440) H 06/12/17 04:24 Lymph % (Auto) 7.3 % (13.4-35.0) L 06/04/17 04:05 [place] % (Auto) 10.8 % (0.0-7.3) H 06/04/17 04:05 Eos % (Auto) 0.1 % (0.0-4.3) 06/04/17 04:05 Baso % (Auto) 0.4 % (0.0-1.8) 06/04/17 04:05 Lymph # 1.4 K/mm3 (1.2-5.4) 06/04/17 04:05 [place] # 2.1 K/mm3 (0.0-0.8) H 06/04/17 04:05 Eos # 0.0 K/mm3 (0.0-0.4) 06/04/17 04:05 Baso # 0.1 K/mm3 (0.0-0.1) 06/04/17 04:05 Add Manual Diff Complete 06/03/17 04:14 Total Counted 100 06/03/17 04:14 Seg Neutrophils % 81.4 % (40.0-70.0) H 06/04/17 04:05 Seg Neuts % (Manual) 94.0 % (40.0-70.0) H 06/03/17 04:14 Band Neutrophils % 0 % 06/03/17 04:14 Lymphocytes % (Manual) 3.0 % (13.4-35.0) L 06/03/17 04:14 Reactive Lymphs % (Man) 0 % 06/03/17 04:14 Monocytes % (Manual) 3.0 % (0.0-7.3) 06/03/17 04:14 Eosinophils % (Manual) 0 % (0.0-4.3) 06/03/17 04:14 Basophils % (Manual) 0 % (0.0-1.8) 06/03/17 04:14 Metamyelocytes % 0 % 06/03/17 04:14 Myelocytes % 0 % 06/03/17 04:14 Promyelocytes % 0 % 06/03/17 04:14 Blast Cells % 0 % 06/03/17 04:14 Nucleated RBC % Not Reportable 06/03/17 04:14 Seg Neutrophils # 15.9 K/mm3 (1.8-7.7) H 06/04/17 04:05 Seg Neutrophils # Man 19.8 K/mm3 (1.8-7.7) H 06/03/17 04:14 Band Neutrophils # 0.0 K/mm3 06/03/17 04:14 Lymphocytes # (Manual) 0.6 K/mm3 (1.2-5.4) L 06/03/17 04:14 Abs React Lymphs (Man) 0.0 K/mm3 06/03/17 04:14 Monocytes # (Manual) 0.6 K/mm3 (0.0-0.8) 06/03/17 04:14 Eosinophils # (Manual) 0.0 K/mm3 (0.0-0.4) 06/03/17 04:14 Basophils # (Manual) 0.0 K/mm3 (0.0-0.1) 06/03/17 04:14 Metamyelocytes # 0.0 K/mm3 06/03/17 04:14 Myelocytes # 0.0 K/mm3 06/03/17 04:14 Promyelocytes # 0.0 K/mm3 06/03/17 04:14 Blast Cells # 0.0 K/mm3 06/03/17 04:14 WBC Morphology Not Reportable 06/03/17 04:14 Hypersegmented Neuts Not Reportable 06/03/17 04:14 Hyposegmented Neuts Not Reportable 06/03/17 04:14 Hypogranular Neuts Not Reportable 06/03/17 04:14 Smudge Cells Not Reportable 06/03/17 04:14 Toxic Granulation Not Reportable 06/03/17 04:14 Toxic Vacuolation Not Reportable 06/03/17 04:14 Dohle Bodies Not Reportable 06/03/17 04:14 Pelger-Huet Anomaly Not Reportable 06/03/17 04:14 Don Rods Not Reportable 06/03/17 04:14 Platelet Estimate Consistent w auto 06/03/17 04:14 Clumped Platelets Not Reportable 06/03/17 04:14 Plt Clumps, EDTA Not Reportable 06/03/17 04:14 Large Platelets Not Reportable 06/03/17 04:14 Giant Platelets Not Reportable 06/03/17 04:14 Platelet Satelliting Not Reportable 06/03/17 04:14 Plt Morphology Comment Not Reportable 06/03/17 04:14 RBC Morphology Not Reportable 06/03/17 04:14 Dimorphic RBCs Not Reportable 06/03/17 04:14 Polychromasia Not Reportable 06/03/17 04:14 Hypochromasia Not Reportable 06/03/17 04:14 Poikilocytosis Not Reportable 06/03/17 04:14 Anisocytosis Not Reportable 06/03/17 04:14 Microcytosis Not Reportable 06/03/17 04:14 Macrocytosis Not Reportable 06/03/17 04:14 Spherocytes Not Reportable 06/03/17 04:14 Pappenheimer Bodies Not Reportable 06/03/17 04:14 Sickle Cells Not Reportable 06/03/17 04:14 Target Cells Not Reportable 06/03/17 04:14 Tear Drop Cells Not Reportable 06/03/17 04:14 Ovalocytes Not Reportable 06/03/17 04:14 Helmet Cells Not Reportable 06/03/17 04:14 [place] Bodies Not Reportable 06/03/17 04:14 [place] Rings Not Reportable 06/03/17 04:14 Cecy Cells Not Reportable 06/03/17 04:14 Bite Cells Not Reportable 06/03/17 04:14 Crenated Cell Not Reportable 06/03/17 04:14 Elliptocytes Not Reportable 06/03/17 04:14 Acanthocytes (Spur) Not Reportable 06/03/17 04:14 Rouleaux Not Reportable 06/03/17 04:14 Hemoglobin C Crystals Not Reportable 06/03/17 04:14 Schistocytes Not Reportable 06/03/17 04:14 Malaria parasites Not Reportable 06/03/17 04:14 Fadi Bodies Not Reportable 06/03/17 04:14 Hem Pathologist Commnt No 06/03/17 04:14 PT 12.4 Sec. (12.2-14.9) 06/09/17 04:18 INR 0.88 (0.87-1.13) 06/09/17 04:18 POC ABG pH 7.461 (7.35-7.45) H 06/10/17 03:24 POC ABG pCO2 36.6 (35-45) 06/10/17 03:24 POC ABG pO2 131 (80-105) H 06/10/17 03:24 POC ABG HCO3 26.1 06/10/17 03:24 POC ABG Total CO2 27 06/10/17 03:24 POC ABG O2 Sat 99 06/10/17 03:24 POC ABG Base Excess 2 06/10/17 03:24 VBG pH 7.327 (7.320-7.420) 05/30/17 10:43 FiO2 45 % 06/10/17 03:24 Sodium 140 mmol/L (137-145) 06/11/17 06:03 Potassium 4.2 mmol/L (3.6-5.0) 06/11/17 06:03 Chloride 102.5 mmol/L (98-107) 06/11/17 06:03 Carbon Dioxide 23 mmol/L (22-30) 06/11/17 06:03 Anion Gap 19 mmol/L 06/11/17 06:03 BUN 55 mg/dL (7-17) H 06/11/17 06:03 Creatinine 1.8 mg/dL (0.7-1.2) H 06/11/17 06:03 Estimated GFR 39 ml/min 06/11/17 06:03 BUN/Creatinine Ratio 31 % 06/11/17 06:03 Glucose 41 mg/dL (65-100) L 06/12/17 06:00 POC Glucose 64 (70-105) L 06/12/17 07:09 Hemoglobin A1c 9.7 % (4-6) H 05/31/17 05:45 Calcium 8.4 mg/dL (8.4-10.2) 06/11/17 06:03 Phosphorus 4.40 mg/dL (2.5-4.5) 06/07/17 07:51 Magnesium 1.70 mg/dL (1.7-2.3) 06/07/17 07:51 Total Bilirubin 0.50 mg/dL (0.1-1.2) 06/02/17 04:24 AST 23 units/L (5-40) 06/02/17 04:24 ALT 14 units/L (7-56) 06/02/17 04:24 Alkaline Phosphatase 132 units/L (35-129) H 06/02/17 04:24 Total Protein 4.1 g/dL (6.3-8.2) L 06/02/17 04:24 Albumin 1.7 g/dL (3.9-5) L 06/02/17 04:24 Albumin/Globulin Ratio 0.7 % 06/02/17 04:24 Urine Color Yellow (Yellow) 05/30/17 15:04 Urine Turbidity Clear (Clear) 05/30/17 15:04 Urine pH 7.0 (5.0-7.0) 05/30/17 15:04 Ur Specific [place] 1.021 (1.003-1.030) 05/30/17 15:04 Urine Protein >500 mg/dL (Negative) 05/30/17 15:04 Urine Glucose (UA) >=500 mg/dL (Negative) 05/30/17 15:04 Urine Ketones Tr mg/dL (Negative) 05/30/17 15:04 Urine Blood Sm (Negative) 05/30/17 15:04 Urine Nitrite Neg (Negative) 05/30/17 15:04 Urine Bilirubin Neg (Negative) 05/30/17 15:04 Urine Urobilinogen < 2.0 mg/dL (<2.0) 05/30/17 15:04 Ur Leukocyte Esterase Neg (Negative) 05/30/17 15:04 Urine WBC (Auto) 2.0 /HPF (0.0-6.0) 05/30/17 15:04 Urine RBC (Auto) 5.0 /HPF (0.0-6.0) 05/30/17 15:04 Urine Bacteria (Auto) 1+ /HPF (Negative) 05/30/17 15:04 Urine Mucus Few /HPF 05/30/17 15:04 Urine Creatinine 78.7 mg/dL (0.1-20.0) H 06/04/17 17:21 Urine Sodium 10 mmol/L 06/02/17 10:18 Urine Total Protein 197 mg/dL (5-11.8) H 06/04/17 17:21 Urine Opiates Screen Presumptive negative 05/30/17 15:04 Urine Methadone Screen Presumptive negative 05/30/17 15:04 Ur Barbiturates Screen Presumptive negative 05/30/17 15:04 Levetiracetam 21.2 mcg/mL 05/30/17 08:59 Ur Phencyclidine Scrn Presumptive negative 05/30/17 15:04 Ur Amphetamines Screen Presumptive negative 05/30/17 15:04 U Benzodiazepines Scrn Presumptive negative 05/30/17 15:04 Urine Cocaine Screen Presumptive negative 05/30/17 15:04 U Marijuana (THC) Screen Presumptive positive 05/30/17 15:04 Drugs of Abuse Note Disclamer 05/30/17 15:04
[2017-06-12] MEDS ORDERED: D5W 1,000 ML IV SCH (09:00)
--- NOTE | 2017-06-12 09:15 | Progress Note ---
Assessment and Plan 36 y/o female with acute respiratory failure secondary to metabolic encephalopathy, thought to be from seizures, s/p cardiac arrest. 1. Continue PSV trials, status post trach and peg 2. q1 hour FSBS until at least 3 consecutive sugars >180 3. Will follow up with CM about LTACH and other options CCT 31 minutes. Subjective Date of service: 06/12/17 Principal diagnosis: coma, acute kidney injury Interval history: Had hypoglycemia this am. Has been given 2 amps of D50. I started on D5W this am with q1 hour fingersticks. Most likely secondary from prolonged period of NPO. Objective Vital Signs - 12hr 06/11/17 06/11/17 06/11/17 21:31 21:46 21:47 Temperature Pulse Rate 101 H 96 H 95 H Respiratory 15 Rate Blood Pressure 144/84 144/84 144/84 O2 Sat by Pulse 98 Oximetry O2 Sat by Pulse Oximetry [ Assessment] 06/11/17 06/11/17 06/11/17 21:49 22:00 22:01 Temperature Pulse Rate 96 H 94 H 97 H Respiratory 16 11 L Rate Blood Pressure 144/84 129/81 O2 Sat by Pulse 100 99 Oximetry O2 Sat by Pulse Oximetry [ Assessment] 06/11/17 06/11/17 06/11/17 22:31 23:01 23:30 Temperature Pulse Rate 93 H 92 H 97 H Respiratory 12 12 Rate Blood Pressure 128/75 127/73 149/90 O2 Sat by Pulse 99 99 100 Oximetry O2 Sat by Pulse Oximetry [ Assessment] 06/11/17 06/12/17 06/12/17 23:31 00:00 00:01 Temperature 98.9 F Pulse Rate 97 H 96 H Respiratory 14 13 Rate Blood Pressure 136/79 127/70 O2 Sat by Pulse 98 100 Oximetry O2 Sat by Pulse Oximetry [ Assessment] 06/12/17 06/12/17 06/12/17 00:31 01:01 01:31 Temperature Pulse Rate 96 H 99 H 102 H Respiratory 14 15 12 Rate Blood Pressure 119/67 128/71 123/67 O2 Sat by Pulse 100 100 99 Oximetry O2 Sat by Pulse Oximetry [ Assessment] 06/12/17 06/12/17 06/12/17 02:00 02:30 03:01 Temperature Pulse Rate 97 H 96 H 95 H Respiratory 14 13 14 Rate Blood Pressure 121/69 122/67 128/68 O2 Sat by Pulse 100 99 99 Oximetry O2 Sat by Pulse Oximetry [ Assessment] 06/12/17 06/12/17 06/12/17 03:30 03:42 04:00 Temperature 98.6 F Pulse Rate 96 H 93 H Respiratory 15 Rate Blood Pressure 124/70 120/72 O2 Sat by Pulse 100 100 Oximetry O2 Sat by Pulse Oximetry [ Assessment] 06/12/17 06/12/17 06/12/17 04:01 04:31 05:01 Temperature Pulse Rate 96 H 96 H 91 H Respiratory 14 15 12 Rate Blood Pressure 126/71 125/70 126/67 O2 Sat by Pulse 99 98 99 Oximetry O2 Sat by Pulse Oximetry [ Assessment] 06/12/17 06/12/17 06/12/17 05:31 06:01 06:30 Temperature Pulse Rate 90 82 89 Respiratory 12 12 19 Rate Blood Pressure 111/62 108/44 125/75 O2 Sat by Pulse 99 98 99 Oximetry O2 Sat by Pulse Oximetry [ Assessment] 06/12/17 06/12/17 06/12/17 06:36 06:42 08:00 Temperature 98.6 F Pulse Rate 92 H 92 H Respiratory Rate Blood Pressure 125/75 125/75 O2 Sat by Pulse Oximetry O2 Sat by Pulse Oximetry [ Assessment] 06/12/17 08:35 Temperature Pulse Rate 103 H Respiratory Rate Blood Pressure 117/65 O2 Sat by Pulse 96 Oximetry O2 Sat by Pulse 95 Oximetry [ Assessment] Constitutional: other (unresponsive, critically ill on ventilator) Eyes: non-icteric ENT: oropharynx moist, other (orally intubated) Neck: supple Effort: normal Ascultation: Bilateral: diminished breath sounds, rales, rhonchi, other (coarse BS bilaterally) Percussion: Bilateral: not dull Cardiovascular: other (tachycardia, RR; no mrg) Gastrointestinal: normoactive bowel sounds, soft, non-tender Integumentary: normal Extremities: no cyanosis, no edema, pink and warm Neurologic: unable to assess, other (unresponsive) Psychiatric: other (not able to assess) CBC and BMP: 06/12/17 04:24 06/12/17 06:00 ABG, PT/INR, D-dimer: ABG POC ABG pH 7.461 (7.35-7.45) H 06/10/17 03:24 POC ABG pCO2 36.6 (35-45) 06/10/17 03:24 POC ABG pO2 131 (80-105) H 06/10/17 03:24 POC ABG HCO3 26.1 06/10/17 03:24 POC ABG Total CO2 27 06/10/17 03:24 POC ABG O2 Sat 99 06/10/17 03:24 PT/INR, D-dimer PT 12.4 Sec. (12.2-14.9) 06/09/17 04:18 INR 0.88 (0.87-1.13) 06/09/17 04:18 Abnormal lab findings: Abnormal Labs 05/30/17 05/30/17 05/30/17 07:48 07:48 08:32 WBC 11.5 H RBC Hgb Hct MCH 27 L MCHC RDW 16.3 H Plt Count Lymph % (Auto) Hall % (Auto) Hall # Seg Neutrophils % Seg Neuts % (Manual) Lymphocytes % (Manual) Basophils % (Manual) Seg Neutrophils # Seg Neutrophils # Man Lymphocytes # (Manual) Basophils # (Manual) POC ABG pH POC ABG pCO2 POC ABG pO2 Sodium 133 L Potassium Chloride 89.9 L Carbon Dioxide BUN 27 H Creatinine 2.0 H Glucose 741 H* POC Glucose > 500 H Hemoglobin A1c Calcium Phosphorus Magnesium AST Alkaline Phosphatase Total Protein Albumin Urine Creatinine Urine Total Protein 05/30/17 05/30/17 05/30/17 08:59 08:59 16:08 WBC 14.5 H RBC Hgb Hct MCH MCHC RDW 16.0 H Plt Count Lymph % (Auto) Hall % (Auto) Hall # Seg Neutrophils % Seg Neuts % (Manual) 95.0 H Lymphocytes % (Manual) 2.0 L Basophils % (Manual) 2.0 H Seg Neutrophils # Seg Neutrophils # Man 13.8 H Lymphocytes # (Manual) 0.3 L Basophils # (Manual) 0.3 H POC ABG pH POC ABG pCO2 POC ABG pO2 Sodium 134 L 135 L Potassium 3.2 L Chloride 90.8 L 93.6 L Carbon Dioxide BUN 28 H 30 H Creatinine 2.0 H 2.1 H Glucose 742 H* 567 H* POC Glucose Hemoglobin A1c Calcium Phosphorus Magnesium AST Alkaline Phosphatase 246 H Total Protein 5.6 L Albumin 2.9 L Urine Creatinine Urine Total Protein 05/30/17 05/30/17 05/30/17 16:35 17:55 18:59 WBC RBC Hgb Hct MCH MCHC RDW Plt Count Lymph % (Auto) Hall % (Auto) Hall # Seg Neutrophils % Seg Neuts % (Manual) Lymphocytes % (Manual) Basophils % (Manual) Seg Neutrophils # Seg Neutrophils # Man Lymphocytes # (Manual) Basophils # (Manual) POC ABG pH 7.544 H POC ABG pCO2 32.0 L POC ABG pO2 155 H Sodium Potassium 3.1 L Chloride 93.9 L Carbon Dioxide BUN 30 H Creatinine 2.0 H Glucose 561 H* POC Glucose 497 H Hemoglobin A1c Calcium Phosphorus Magnesium AST Alkaline Phosphatase Total Protein Albumin Urine Creatinine Urine Total Protein 05/30/17 05/30/17 05/30/17 19:31 19:31 21:38 WBC RBC Hgb Hct MCH MCHC RDW Plt Count Lymph % (Auto) Hall % (Auto) Hall # Seg Neutrophils % Seg Neuts % (Manual) Lymphocytes % (Manual) Basophils % (Manual) Seg Neutrophils # Seg Neutrophils # Man Lymphocytes # (Manual) Basophils # (Manual) POC ABG pH POC ABG pCO2 POC ABG pO2 Sodium 135 L Potassium 2.9 L* Chloride 93.8 L 95.4 L Carbon Dioxide 20 L BUN 29 H 30 H Creatinine 2.2 H 2.3 H Glucose 478 H 364 H POC Glucose Hemoglobin A1c Calcium Phosphorus 2.20 L D Magnesium 1.40 L AST 42 H Alkaline Phosphatase 177 H Total Protein 5.4 L Albumin 2.4 L Urine Creatinine Urine Total Protein 05/30/17 05/31/17 05/31/17 23:06 02:17 05:27 WBC RBC Hgb Hct MCH MCHC RDW Plt Count Lymph % (Auto) Hall % (Auto) Hall # Seg Neutrophils % Seg Neuts % (Manual) Lymphocytes % (Manual) Basophils % (Manual) Seg Neutrophils # Seg Neutrophils # Man Lymphocytes # (Manual) Basophils # (Manual) POC ABG pH 7.489 H POC ABG pCO2 POC ABG pO2 Sodium Potassium 3.2 L 3.5 L Chloride Carbon Dioxide BUN 30 H 31 H Creatinine 2.5 H 2.4 H Glucose 288 H 246 H POC Glucose Hemoglobin A1c Calcium 8.3 L Phosphorus Magnesium AST Alkaline Phosphatase Total Protein Albumin Urine Creatinine Urine Total Protein 05/31/17 05/31/17 05/31/17 05:45 05:45 05:45 WBC RBC Hgb Hct MCH MCHC RDW Plt Count Lymph % (Auto) Hall % (Auto) Hall # Seg Neutrophils % Seg Neuts % (Manual) Lymphocytes % (Manual) Basophils % (Manual) Seg Neutrophils # Seg Neutrophils # Man Lymphocytes # (Manual) Basophils # (Manual) POC ABG pH POC ABG pCO2 POC ABG pO2 Sodium Potassium Chloride Carbon Dioxide BUN 32 H 30 H Creatinine 2.5 H 2.6 H Glucose 266 H 271 H POC Glucose Hemoglobin A1c 9.7 H Calcium 8.3 L 8.2 L Phosphorus Magnesium AST Alkaline Phosphatase 145 H Total Protein 4.7 L Albumin 1.8 L Urine Creatinine Urine Total Protein 05/31/17 05/31/17 05/31/17 08:18 09:20 12:18 WBC RBC Hgb Hct MCH MCHC RDW Plt Count Lymph % (Auto) Hall % (Auto) Hall # Seg Neutrophils % Seg Neuts % (Manual) Lymphocytes % (Manual) Basophils % (Manual) Seg Neutrophils # Seg Neutrophils # Man Lymphocytes # (Manual) Basophils # (Manual) POC ABG pH POC ABG pCO2 POC ABG pO2 Sodium Potassium Chloride Carbon Dioxide BUN Creatinine Glucose POC Glucose 300 H 254 H 170 H Hemoglobin A1c Calcium Phosphorus Magnesium AST Alkaline Phosphatase Total Protein Albumin Urine Creatinine Urine Total Protein 05/31/17 05/31/17 05/31/17 14:09 14:17 14:27 WBC RBC Hgb Hct MCH MCHC RDW Plt Count Lymph % (Auto) Hall % (Auto) Hall # Seg Neutrophils % Seg Neuts % (Manual) Lymphocytes % (Manual) Basophils % (Manual) Seg Neutrophils # Seg Neutrophils # Man Lymphocytes # (Manual) Basophils # (Manual) POC ABG pH POC ABG pCO2 POC ABG pO2 Sodium Potassium 3.4 L Chloride 107.1 H Carbon Dioxide BUN 30 H Creatinine 2.6 H Glucose 38 L* POC Glucose < 40 L 189 H Hemoglobin A1c Calcium 7.6 L Phosphorus Magnesium AST Alkaline Phosphatase Total Protein Albumin Urine Creatinine Urine Total Protein 05/31/17 05/31/17 05/31/17 15:01 16:01 17:19 WBC RBC Hgb Hct MCH MCHC RDW Plt Count Lymph % (Auto) Hall % (Auto) Hall # Seg Neutrophils % Seg Neuts % (Manual) Lymphocytes % (Manual) Basophils % (Manual) Seg Neutrophils # Seg Neutrophils # Man Lymphocytes # (Manual) Basophils # (Manual) POC ABG pH POC ABG pCO2 POC ABG pO2 Sodium Potassium Chloride Carbon Dioxide BUN Creatinine Glucose POC Glucose 130 H 165 H 131 H Hemoglobin A1c Calcium Phosphorus Magnesium AST Alkaline Phosphatase Total Protein Albumin Urine Creatinine Urine Total Protein 05/31/17 05/31/17 05/31/17 18:46 19:54 20:36 WBC RBC Hgb Hct MCH MCHC RDW Plt Count Lymph % (Auto) Hall % (Auto) Hall # Seg Neutrophils % Seg Neuts % (Manual) Lymphocytes % (Manual) Basophils % (Manual) Seg Neutrophils # Seg Neutrophils # Man Lymphocytes # (Manual) Basophils # (Manual) POC ABG pH POC ABG pCO2 POC ABG pO2 Sodium Potassium Chloride Carbon Dioxide BUN 29 H Creatinine 2.4 H Glucose 124 H POC Glucose 128 H 157 H Hemoglobin A1c Calcium 7.9 L Phosphorus Magnesium AST Alkaline Phosphatase Total Protein Albumin Urine Creatinine Urine Total Protein 05/31/17 06/01/17 06/01/17 21:41 03:22 04:06 WBC RBC Hgb Hct MCH MCHC RDW Plt Count Lymph % (Auto) Hall % (Auto) Hall # Seg Neutrophils % Seg Neuts % (Manual) Lymphocytes % (Manual) Basophils % (Manual) Seg Neutrophils # Seg Neutrophils # Man Lymphocytes # (Manual) Basophils # (Manual) POC ABG pH POC ABG pCO2 POC ABG pO2 Sodium Potassium Chloride Carbon Dioxide 19 L BUN 29 H Creatinine 2.6 H Glucose 205 H POC Glucose 158 H 251 H Hemoglobin A1c Calcium 7.8 L Phosphorus Magnesium AST Alkaline Phosphatase Total Protein Albumin Urine Creatinine Urine Total Protein 06/01/17 06/01/17 06/01/17 04:30 09:15 09:59 WBC 19.7 H RBC Hgb 10.0 L Hct MCH 27 L MCHC RDW 17.1 H Plt Count Lymph % (Auto) Hall % (Auto) Hall # Seg Neutrophils % Seg Neuts % (Manual) Lymphocytes % (Manual) Basophils % (Manual) Seg Neutrophils # Seg Neutrophils # Man Lymphocytes # (Manual) Basophils # (Manual) POC ABG pH 7.464 H POC ABG pCO2 31.3 L POC ABG pO2 Sodium Potassium Chloride Carbon Dioxide BUN Creatinine Glucose POC Glucose 330 H Hemoglobin A1c Calcium Phosphorus Magnesium AST Alkaline Phosphatase Total Protein Albumin Urine Creatinine Urine Total Protein 06/01/17 06/01/17 06/01/17 11:36 12:25 13:43 WBC RBC Hgb Hct MCH MCHC RDW Plt Count Lymph % (Auto) Hall % (Auto) Hall # Seg Neutrophils % Seg Neuts % (Manual) Lymphocytes % (Manual) Basophils % (Manual) Seg Neutrophils # Seg Neutrophils # Man Lymphocytes # (Manual) Basophils # (Manual) POC ABG pH POC ABG pCO2 POC ABG pO2 Sodium Potassium Chloride Carbon Dioxide BUN Creatinine Glucose POC Glucose 431 H 434 H 445 H Hemoglobin A1c Calcium Phosphorus Magnesium AST Alkaline Phosphatase Total Protein Albumin Urine Creatinine Urine Total Protein 06/01/17 06/01/17 06/01/17 14:26 15:46 16:03 WBC RBC Hgb Hct MCH MCHC RDW Plt Count Lymph % (Auto) Hall % (Auto) Hall # Seg Neutrophils % Seg Neuts % (Manual) Lymphocytes % (Manual) Basophils % (Manual) Seg Neutrophils # Seg Neutrophils # Man Lymphocytes # (Manual) Basophils # (Manual) POC ABG pH POC ABG pCO2 POC ABG pO2 Sodium Potassium Chloride Carbon Dioxide BUN Creatinine Glucose POC Glucose 310 H 292 H 244 H Hemoglobin A1c Calcium Phosphorus Magnesium AST Alkaline Phosphatase Total Protein Albumin Urine Creatinine Urine Total Protein 06/01/17 06/01/17 06/01/17 16:59 17:49 19:05 WBC RBC Hgb Hct MCH MCHC RDW Plt Count Lymph % (Auto) Hall % (Auto) Hall # Seg Neutrophils % Seg Neuts % (Manual) Lymphocytes % (Manual) Basophils % (Manual) Seg Neutrophils # Seg Neutrophils # Man Lymphocytes # (Manual) Basophils # (Manual) POC ABG pH POC ABG pCO2 POC ABG pO2 Sodium Potassium Chloride Carbon Dioxide BUN Creatinine Glucose POC Glucose 260 H 203 H 156 H Hemoglobin A1c Calcium Phosphorus Magnesium AST Alkaline Phosphatase Total Protein Albumin Urine Creatinine Urine Total Protein 06/02/17 06/02/17 06/02/17 00:09 01:06 02:31 WBC RBC Hgb Hct MCH MCHC RDW Plt Count Lymph % (Auto) Hall % (Auto) Hall # Seg Neutrophils % Seg Neuts % (Manual) Lymphocytes % (Manual) Basophils % (Manual) Seg Neutrophils # Seg Neutrophils # Man Lymphocytes # (Manual) Basophils # (Manual) POC ABG pH POC ABG pCO2 POC ABG pO2 Sodium Potassium Chloride Carbon Dioxide BUN Creatinine Glucose POC Glucose 137 H 146 H 182 H Hemoglobin A1c Calcium Phosphorus Magnesium AST Alkaline Phosphatase Total Protein Albumin Urine Creatinine Urine Total Protein 0306/02/17 06/02/17 04:03 04:24 04:24 WBC 21.0 H RBC 3.62 L Hgb Hct 29.6 L MCH MCHC RDW 16.5 H Plt Count Lymph % (Auto) Hall % (Auto) Hall # Seg Neutrophils % Seg Neuts % (Manual) 98.0 H Lymphocytes % (Manual) 1.0 L Basophils % (Manual) Seg Neutrophils # Seg Neutrophils # Man 20.6 H Lymphocytes # (Manual) 0.2 L Basophils # (Manual) POC ABG pH POC ABG pCO2 POC ABG pO2 Sodium Potassium Chloride Carbon Dioxide 20 L BUN 36 H Creatinine 2.8 H Glucose 137 H POC Glucose 150 H Hemoglobin A1c Calcium 7.5 L Phosphorus 4.60 H Magnesium 1.50 L AST Alkaline Phosphatase 132 H Total Protein 4.1 L Albumin 1.7 L Urine Creatinine Urine Total Protein 06/02/17 06/02/17 06/02/17 05:01 05:14 06:20 WBC RBC Hgb Hct MCH MCHC RDW Plt Count Lymph % (Auto) Hall % (Auto) Hall # Seg Neutrophils % Seg Neuts % (Manual) Lymphocytes % (Manual) Basophils % (Manual) Seg Neutrophils # Seg Neutrophils # Man Lymphocytes # (Manual) Basophils # (Manual) POC ABG pH 7.517 H POC ABG pCO2 28.4 L POC ABG pO2 67 L Sodium Potassium Chloride Carbon Dioxide BUN Creatinine Glucose POC Glucose 137 H 163 H Hemoglobin A1c Calcium Phosphorus Magnesium AST Alkaline Phosphatase Total Protein Albumin Urine Creatinine Urine Total Protein 06/02/17 06/02/17 06/02/17 07:43 09:40 10:18 WBC RBC Hgb Hct MCH MCHC RDW Plt Count Lymph % (Auto) Hall % (Auto) Hall # Seg Neutrophils % Seg Neuts % (Manual) Lymphocytes % (Manual) Basophils % (Manual) Seg Neutrophils # Seg Neutrophils # Man Lymphocytes # (Manual) Basophils # (Manual) POC ABG pH POC ABG pCO2 POC ABG pO2 Sodium Potassium Chloride Carbon Dioxide BUN Creatinine Glucose POC Glucose 135 H 196 H Hemoglobin A1c Calcium Phosphorus Magnesium AST Alkaline Phosphatase Total Protein Albumin Urine Creatinine Urine Total Protein < 4 L 06/02/17 06/02/17 06/02/17 10:33 11:55 17:39 WBC RBC Hgb Hct MCH MCHC RDW Plt Count Lymph % (Auto) Hall % (Auto) Hall # Seg Neutrophils % Seg Neuts % (Manual) Lymphocytes % (Manual) Basophils % (Manual) Seg Neutrophils # Seg Neutrophils # Man Lymphocytes # (Manual) Basophils # (Manual) POC ABG pH POC ABG pCO2 POC ABG pO2 Sodium Potassium Chloride Carbon Dioxide BUN Creatinine Glucose POC Glucose 188 H 110 H 150 H Hemoglobin A1c Calcium Phosphorus Magnesium AST Alkaline Phosphatase Total Protein Albumin Urine Creatinine Urine Total Protein 06/02/17 06/02/17 06/03/17 18:12 21:32 02:02 WBC RBC Hgb Hct MCH MCHC RDW Plt Count Lymph % (Auto) Hall % (Auto) Hall # Seg Neutrophils % Seg Neuts % (Manual) Lymphocytes % (Manual) Basophils % (Manual) Seg Neutrophils # Seg Neutrophils # Man Lymphocytes # (Manual) Basophils # (Manual) POC ABG pH POC ABG pCO2 POC ABG pO2 Sodium Potassium Chloride Carbon Dioxide BUN Creatinine Glucose POC Glucose 131 H 143 H 191 H Hemoglobin A1c Calcium Phosphorus Magnesium AST Alkaline Phosphatase Total Protein Albumin Urine Creatinine Urine Total Protein 06/03/17 06/03/17 06/03/17 04:14 04:14 05:06 WBC 21.1 H RBC Hgb Hct MCH 27 L MCHC RDW 15.9 H Plt Count 447 H Lymph % (Auto) Hall % (Auto) Hall # Seg Neutrophils % Seg Neuts % (Manual) 94.0 H Lymphocytes % (Manual) 3.0 L Basophils % (Manual) Seg Neutrophils # Seg Neutrophils # Man 19.8 H Lymphocytes # (Manual) 0.6 L Basophils # (Manual) POC ABG pH POC ABG pCO2 28.6 L POC ABG pO2 112 H Sodium Potassium Chloride Carbon Dioxide 14 L BUN 45 H Creatinine 2.8 H Glucose 211 H POC Glucose Hemoglobin A1c Calcium 8.0 L Phosphorus Magnesium AST Alkaline Phosphatase Total Protein Albumin Urine Creatinine Urine Total Protein 06/03/17 06/03/17 06/03/17 06:00 10:20 13:43 WBC RBC Hgb Hct MCH MCHC RDW Plt Count Lymph % (Auto) Hall % (Auto) Hall # Seg Neutrophils % Seg Neuts % (Manual) Lymphocytes % (Manual) Basophils % (Manual) Seg Neutrophils # Seg Neutrophils # Man Lymphocytes # (Manual) Basophils # (Manual) POC ABG pH POC ABG pCO2 POC ABG pO2 Sodium Potassium Chloride Carbon Dioxide BUN Creatinine Glucose POC Glucose 224 H 226 H 296 H Hemoglobin A1c Calcium Phosphorus Magnesium AST Alkaline Phosphatase Total Protein Albumin Urine Creatinine Urine Total Protein 06/03/17 06/03/17 06/03/17 17:38 19:23 20:45 WBC RBC Hgb Hct MCH MCHC RDW Plt Count Lymph % (Auto) Hall % (Auto) Hall # Seg Neutrophils % Seg Neuts % (Manual) Lymphocytes % (Manual) Basophils % (Manual) Seg Neutrophils # Seg Neutrophils # Man Lymphocytes # (Manual) Basophils # (Manual) POC ABG pH POC ABG pCO2 POC ABG pO2 Sodium Potassium Chloride Carbon Dioxide BUN Creatinine Glucose POC Glucose 295 H 275 H 338 H Hemoglobin A1c Calcium Phosphorus Magnesium AST Alkaline Phosphatase Total Protein Albumin Urine Creatinine Urine Total Protein 06/03/17 06/03/17 06/04/17 21:50 23:08 00:16 WBC RBC Hgb Hct MCH MCHC RDW Plt Count Lymph % (Auto) Hall % (Auto) Hall # Seg Neutrophils % Seg Neuts % (Manual) Lymphocytes % (Manual) Basophils % (Manual) Seg Neutrophils # Seg Neutrophils # Man Lymphocytes # (Manual) Basophils # (Manual) POC ABG pH POC ABG pCO2 POC ABG pO2 Sodium Potassium Chloride Carbon Dioxide BUN Creatinine Glucose POC Glucose 223 H 214 H 226 H Hemoglobin A1c Calcium Phosphorus Magnesium AST Alkaline Phosphatase Total Protein Albumin Urine Creatinine Urine Total Protein 06/04/17 06/04/17 06/04/17 01:05 02:07 03:27 WBC RBC Hgb Hct MCH MCHC RDW Plt Count Lymph % (Auto) Hall % (Auto) Hall # Seg Neutrophils % Seg Neuts % (Manual) Lymphocytes % (Manual) Basophils % (Manual) Seg Neutrophils # Seg Neutrophils # Man Lymphocytes # (Manual) Basophils # (Manual) POC ABG pH POC ABG pCO2 POC ABG pO2 Sodium Potassium Chloride Carbon Dioxide BUN Creatinine Glucose POC Glucose 217 H 229 H 185 H Hemoglobin A1c Calcium Phosphorus Magnesium AST Alkaline Phosphatase Total Protein Albumin Urine Creatinine Urine Total Protein 06/04/17 06/04/17 06/04/17 03:52 04:05 04:05 WBC 19.6 H RBC Hgb Hct MCH 26 L MCHC RDW 15.6 H Plt Count 564 H Lymph % (Auto) 7.3 L Hall % (Auto) 10.8 H Hall # 2.1 H Seg Neutrophils % 81.4 H Seg Neuts % (Manual) Lymphocytes % (Manual) Basophils % (Manual) Seg Neutrophils # 15.9 H Seg Neutrophils # Man Lymphocytes # (Manual) Basophils # (Manual) POC ABG pH POC ABG pCO2 POC ABG pO2 Sodium Potassium Chloride Carbon Dioxide 17 L BUN 52 H Creatinine 2.5 H Glucose 163 H POC Glucose 181 H Hemoglobin A1c Calcium 7.9 L Phosphorus Magnesium AST Alkaline Phosphatase Total Protein Albumin Urine Creatinine Urine Total Protein 06/04/17 06/04/17 06/04/17 04:56 05:39 06:12 WBC RBC Hgb Hct MCH MCHC RDW Plt Count Lymph % (Auto) Hall % (Auto) Hall # Seg Neutrophils % Seg Neuts % (Manual) Lymphocytes % (Manual) Basophils % (Manual) Seg Neutrophils # Seg Neutrophils # Man Lymphocytes # (Manual) Basophils # (Manual) POC ABG pH 7.486 H POC ABG pCO2 26.8 L POC ABG pO2 Sodium Potassium Chloride Carbon Dioxide BUN Creatinine Glucose POC Glucose 208 H 225 H Hemoglobin A1c Calcium Phosphorus Magnesium AST Alkaline Phosphatase Total Protein Albumin Urine Creatinine Urine Total Protein 06/04/17 06/04/17 06/04/17 07:07 08:06 09:15 WBC RBC Hgb Hct MCH MCHC RDW Plt Count Lymph % (Auto) Hall % (Auto) Hall # Seg Neutrophils % Seg Neuts % (Manual) Lymphocytes % (Manual) Basophils % (Manual) Seg Neutrophils # Seg Neutrophils # Man Lymphocytes # (Manual) Basophils # (Manual) POC ABG pH POC ABG pCO2 POC ABG pO2 Sodium Potassium Chloride Carbon Dioxide BUN Creatinine Glucose POC Glucose 201 H 171 H 178 H Hemoglobin A1c Calcium Phosphorus Magnesium AST Alkaline Phosphatase Total Protein Albumin Urine Creatinine Urine Total Protein 06/04/17 06/04/17 06/04/17 10:16 12:22 17:21 WBC RBC Hgb Hct MCH MCHC RDW Plt Count Lymph % (Auto) Hall % (Auto) Hall # Seg Neutrophils % Seg Neuts % (Manual) Lymphocytes % (Manual) Basophils % (Manual) Seg Neutrophils # Seg Neutrophils # Man Lymphocytes # (Manual) Basophils # (Manual) POC ABG pH POC ABG pCO2 POC ABG pO2 Sodium Potassium Chloride Carbon Dioxide BUN Creatinine Glucose POC Glucose 191 H 188 H Hemoglobin A1c Calcium Phosphorus Magnesium AST Alkaline Phosphatase Total Protein Albumin Urine Creatinine 78.7 H Urine Total Protein 197 H 06/04/17 06/04/17 06/05/17 17:56 22:10 00:00 WBC RBC Hgb Hct MCH MCHC RDW Plt Count Lymph % (Auto) Hall % (Auto) Hall # Seg Neutrophils % Seg Neuts % (Manual) Lymphocytes % (Manual) Basophils % (Manual) Seg Neutrophils # Seg Neutrophils # Man Lymphocytes # (Manual) Basophils # (Manual) POC ABG pH POC ABG pCO2 POC ABG pO2 Sodium Potassium Chloride Carbon Dioxide 17 L BUN 55 H Creatinine 2.3 H Glucose 300 H POC Glucose 266 H 337 H Hemoglobin A1c Calcium 7.4 L Phosphorus Magnesium AST Alkaline Phosphatase Total Protein Albumin Urine Creatinine Urine Total Protein 06/05/17 06/05/17 06/05/17 03:26 04:11 05:13 WBC RBC Hgb Hct MCH MCHC RDW Plt Count Lymph % (Auto) Hall % (Auto) Hall # Seg Neutrophils % Seg Neuts % (Manual) Lymphocytes % (Manual) Basophils % (Manual) Seg Neutrophils # Seg Neutrophils # Man Lymphocytes # (Manual) Basophils # (Manual) POC ABG pH 7.586 H POC ABG pCO2 22.6 L POC ABG pO2 179 H Sodium Potassium Chloride Carbon Dioxide 19 L BUN 55 H Creatinine 2.2 H Glucose 226 H POC Glucose 220 H Hemoglobin A1c Calcium 7.7 L Phosphorus Magnesium AST Alkaline Phosphatase Total Protein Albumin Urine Creatinine Urine Total Protein 06/05/17 06/05/17 06/05/17 12:42 18:24 21:23 WBC RBC Hgb Hct MCH MCHC RDW Plt Count Lymph % (Auto) Hall % (Auto) Hall # Seg Neutrophils % Seg Neuts % (Manual) Lymphocytes % (Manual) Basophils % (Manual) Seg Neutrophils # Seg Neutrophils # Man Lymphocytes # (Manual) Basophils # (Manual) POC ABG pH POC ABG pCO2 POC ABG pO2 Sodium Potassium Chloride Carbon Dioxide BUN Creatinine Glucose POC Glucose 168 H 121 H 166 H Hemoglobin A1c Calcium Phosphorus Magnesium AST Alkaline Phosphatase Total Protein Albumin Urine Creatinine Urine Total Protein 06/06/17 06/06/17 06/06/17 00:14 04:11 06:19 WBC RBC Hgb Hct MCH MCHC RDW Plt Count Lymph % (Auto) Hall % (Auto) Hall # Seg Neutrophils % Seg Neuts % (Manual) Lymphocytes % (Manual) Basophils % (Manual) Seg Neutrophils # Seg Neutrophils # Man Lymphocytes # (Manual) Basophils # (Manual) POC ABG pH POC ABG pCO2 33.0 L POC ABG pO2 Sodium Potassium Chloride Carbon Dioxide BUN Creatinine Glucose POC Glucose 179 H 180 H Hemoglobin A1c Calcium Phosphorus Magnesium AST Alkaline Phosphatase Total Protein Albumin Urine Creatinine Urine Total Protein 06/06/17 06/06/17 06/06/17 12:19 18:38 20:01 WBC RBC Hgb Hct MCH MCHC RDW Plt Count Lymph % (Auto) Hall % (Auto) Hall # Seg Neutrophils % Seg Neuts % (Manual) Lymphocytes % (Manual) Basophils % (Manual) Seg Neutrophils # Seg Neutrophils # Man Lymphocytes # (Manual) Basophils # (Manual) POC ABG pH POC ABG pCO2 POC ABG pO2 Sodium Potassium Chloride Carbon Dioxide BUN Creatinine Glucose POC Glucose 123 H 56 L 65 L Hemoglobin A1c Calcium Phosphorus Magnesium AST Alkaline Phosphatase Total Protein Albumin Urine Creatinine Urine Total Protein 06/06/17 06/07/17 06/07/17 23:51 04:25 05:29 WBC RBC Hgb Hct MCH MCHC RDW Plt Count Lymph % (Auto) Hall % (Auto) Hall # Seg Neutrophils % Seg Neuts % (Manual) Lymphocytes % (Manual) Basophils % (Manual) Seg Neutrophils # Seg Neutrophils # Man Lymphocytes # (Manual) Basophils # (Manual) POC ABG pH 7.470 H POC ABG pCO2 33.6 L POC ABG pO2 Sodium Potassium Chloride Carbon Dioxide BUN Creatinine Glucose POC Glucose 118 H 183 H Hemoglobin A1c Calcium Phosphorus Magnesium AST Alkaline Phosphatase Total Protein Albumin Urine Creatinine Urine Total Protein 06/07/17 06/07/17 06/07/17 07:51 12:00 18:08 WBC RBC Hgb Hct MCH MCHC RDW Plt Count Lymph % (Auto) Hall % (Auto) Hall # Seg Neutrophils % Seg Neuts % (Manual) Lymphocytes % (Manual) Basophils % (Manual) Seg Neutrophils # Seg Neutrophils # Man Lymphocytes # (Manual) Basophils # (Manual) POC ABG pH POC ABG pCO2 POC ABG pO2 Sodium 135 L Potassium Chloride Carbon Dioxide 21 L BUN 50 H Creatinine 1.8 H Glucose 232 H POC Glucose 361 H 249 H Hemoglobin A1c Calcium 8.0 L Phosphorus Magnesium AST Alkaline Phosphatase Total Protein Albumin Urine Creatinine Urine Total Protein 06/07/17 06/08/17 06/08/17 23:53 05:25 11:50 WBC RBC Hgb Hct MCH MCHC RDW Plt Count Lymph % (Auto) Hall % (Auto) Hall # Seg Neutrophils % Seg Neuts % (Manual) Lymphocytes % (Manual) Basophils % (Manual) Seg Neutrophils # Seg Neutrophils # Man Lymphocytes # (Manual) Basophils # (Manual) POC ABG pH POC ABG pCO2 POC ABG pO2 Sodium Potassium Chloride Carbon Dioxide BUN Creatinine Glucose POC Glucose 190 H 136 H 166 H Hemoglobin A1c Calcium Phosphorus Magnesium AST Alkaline Phosphatase Total Protein Albumin Urine Creatinine Urine Total Protein 06/08/17 06/08/17 06/08/17 14:20 14:20 19:05 WBC 15.7 H RBC 3.49 L Hgb 9.4 L Hct 27.9 L MCH 27 L MCHC RDW 15.3 H Plt Count 590 H Lymph % (Auto) Hall % (Auto) Hall # Seg Neutrophils % Seg Neuts % (Manual) Lymphocytes % (Manual) Basophils % (Manual) Seg Neutrophils # Seg Neutrophils # Man Lymphocytes # (Manual) Basophils # (Manual) POC ABG pH POC ABG pCO2 POC ABG pO2 Sodium Potassium Chloride Carbon Dioxide BUN 55 H Creatinine 1.7 H Glucose 117 H POC Glucose 135 H Hemoglobin A1c Calcium Phosphorus Magnesium AST Alkaline Phosphatase Total Protein Albumin Urine Creatinine Urine Total Protein 06/08/17 06/08/17 06/09/17 21:52 23:55 04:18 WBC RBC Hgb Hct MCH MCHC RDW Plt Count Lymph % (Auto) Hall % (Auto) Hall # Seg Neutrophils % Seg Neuts % (Manual) Lymphocytes % (Manual) Basophils % (Manual) Seg Neutrophils # Seg Neutrophils # Man Lymphocytes # (Manual) Basophils # (Manual) POC ABG pH POC ABG pCO2 POC ABG pO2 Sodium Potassium Chloride Carbon Dioxide BUN 51 H Creatinine 1.6 H Glucose POC Glucose 186 H 209 H Hemoglobin A1c Calcium Phosphorus Magnesium AST Alkaline Phosphatase Total Protein Albumin Urine Creatinine Urine Total Protein 06/09/17 06/09/17 06/09/17 09:56 12:42 18:09 WBC RBC Hgb Hct MCH MCHC RDW Plt Count Lymph % (Auto) Hall % (Auto) Hall # Seg Neutrophils % Seg Neuts % (Manual) Lymphocytes % (Manual) Basophils % (Manual) Seg Neutrophils # Seg Neutrophils # Man Lymphocytes # (Manual) Basophils # (Manual) POC ABG pH POC ABG pCO2 POC ABG pO2 Sodium Potassium Chloride Carbon Dioxide BUN Creatinine Glucose POC Glucose 63 L 142 H 166 H Hemoglobin A1c Calcium Phosphorus Magnesium AST Alkaline Phosphatase Total Protein Albumin Urine Creatinine Urine Total Protein 06/09/17 06/10/17 06/10/17 23:39 03:24 04:28 WBC 15.1 H RBC 2.99 L Hgb 8.1 L Hct 23.6 L MCH 27 L MCHC 35 H RDW 15.4 H Plt Count 500 H Lymph % (Auto) Hall % (Auto) Hall # Seg Neutrophils % Seg Neuts % (Manual) Lymphocytes % (Manual) Basophils % (Manual) Seg Neutrophils # Seg Neutrophils # Man Lymphocytes # (Manual) Basophils # (Manual) POC ABG pH 7.461 H POC ABG pCO2 POC ABG pO2 131 H Sodium Potassium Chloride Carbon Dioxide BUN Creatinine Glucose POC Glucose 284 H Hemoglobin A1c Calcium Phosphorus Magnesium AST Alkaline Phosphatase Total Protein Albumin Urine Creatinine Urine Total Protein 06/10/17 06/10/17 06/10/17 04:28 05:10 12:41 WBC RBC Hgb Hct MCH MCHC RDW Plt Count Lymph % (Auto) Hall % (Auto) Hall # Seg Neutrophils % Seg Neuts % (Manual) Lymphocytes % (Manual) Basophils % (Manual) Seg Neutrophils # Seg Neutrophils # Man Lymphocytes # (Manual) Basophils # (Manual) POC ABG pH POC ABG pCO2 POC ABG pO2 Sodium Potassium Chloride Carbon Dioxide BUN 53 H Creatinine 1.8 H Glucose 185 H POC Glucose 190 H 50 L Hemoglobin A1c Calcium Phosphorus Magnesium AST Alkaline Phosphatase Total Protein Albumin Urine Creatinine Urine Total Protein 06/10/17 06/10/17 06/11/17 14:35 18:31 00:09 WBC RBC Hgb Hct MCH MCHC RDW Plt Count Lymph % (Auto) Hall % (Auto) Hall # Seg Neutrophils % Seg Neuts % (Manual) Lymphocytes % (Manual) Basophils % (Manual) Seg Neutrophils # Seg Neutrophils # Man Lymphocytes # (Manual) Basophils # (Manual) POC ABG pH POC ABG pCO2 POC ABG pO2 Sodium Potassium Chloride Carbon Dioxide BUN Creatinine Glucose POC Glucose 58 L 55 L 126 H Hemoglobin A1c Calcium Phosphorus Magnesium AST Alkaline Phosphatase Total Protein Albumin Urine Creatinine Urine Total Protein 06/11/17 06/11/17 06/11/17 05:32 06:01 06:03 WBC 15.6 H RBC 3.03 L Hgb 8.3 L Hct 24.0 L MCH MCHC 35 H RDW Plt Count 492 H Lymph % (Auto) Hall % (Auto) Hall # Seg Neutrophils % Seg Neuts % (Manual) Lymphocytes % (Manual) Basophils % (Manual) Seg Neutrophils # Seg Neutrophils # Man Lymphocytes # (Manual) Basophils # (Manual) POC ABG pH POC ABG pCO2 POC ABG pO2 Sodium Potassium Chloride Carbon Dioxide BUN 55 H Creatinine 1.8 H Glucose 228 H POC Glucose 219 H Hemoglobin A1c Calcium Phosphorus Magnesium AST Alkaline Phosphatase Total Protein Albumin Urine Creatinine Urine Total Protein 06/11/17 06/11/17 06/12/17 11:53 18:31 04:24 WBC 17.4 H RBC 2.90 L Hgb 8.0 L Hct 23.0 L MCH MCHC 35 H RDW Plt Count 460 H Lymph % (Auto) Hall % (Auto) Hall # Seg Neutrophils % Seg Neuts % (Manual) Lymphocytes % (Manual) Basophils % (Manual) Seg Neutrophils # Seg Neutrophils # Man Lymphocytes # (Manual) Basophils # (Manual) POC ABG pH POC ABG pCO2 POC ABG pO2 Sodium Potassium Chloride Carbon Dioxide BUN Creatinine Glucose POC Glucose 220 H 254 H Hemoglobin A1c Calcium Phosphorus Magnesium AST Alkaline Phosphatase Total Protein Albumin Urine Creatinine Urine Total Protein 06/12/17 06/12/17 06/12/17 05:37 05:40 06:00 WBC RBC Hgb Hct MCH MCHC RDW Plt Count Lymph % (Auto) Hall % (Auto) Hall # Seg Neutrophils % Seg Neuts % (Manual) Lymphocytes % (Manual) Basophils % (Manual) Seg Neutrophils # Seg Neutrophils # Man Lymphocytes # (Manual) Basophils # (Manual) POC ABG pH POC ABG pCO2 POC ABG pO2 Sodium Potassium Chloride Carbon Dioxide BUN Creatinine Glucose 41 L POC Glucose < 40 L < 40 L Hemoglobin A1c Calcium Phosphorus Magnesium AST Alkaline Phosphatase Total Protein Albumin Urine Creatinine Urine Total Protein 06/12/17 06/12/17 07:09 07:51 WBC RBC Hgb Hct MCH MCHC RDW Plt Count Lymph % (Auto) Hall % (Auto) Hall # Seg Neutrophils % Seg Neuts % (Manual) Lymphocytes % (Manual) Basophils % (Manual) Seg Neutrophils # Seg Neutrophils # Man Lymphocytes # (Manual) Basophils # (Manual) POC ABG pH POC ABG pCO2 POC ABG pO2 Sodium Potassium Chloride Carbon Dioxide BUN Creatinine Glucose POC Glucose 64 L 42 L Hemoglobin A1c Calcium Phosphorus Magnesium AST Alkaline Phosphatase Total Protein Albumin Urine Creatinine Urine Total Protein
--- NOTE | 2017-06-12 10:28 | Progress Note ---
Assessment and Plan Seizures Respiratory failure intubated on mechanical ventilation Hypoxic encephalopathy Acute renal failure Diabetes mellitus Dilated Cardiomyopathy EF 15-20% on echo this admission. Echo done 10/2016 at [place] showed LVEF 35-40% with severe pulmonary hypertension. At that time, there was a plan to perform a LHC but this had to be cancelled due to severe gastroparesis and renal failure. Hypertension Recommendations: Continue medical therapy for her dilated cardiomyopathy. Conservative cardiac management. Subjective Date of service: 06/12/17 Principal diagnosis: coma, acute kidney injury Interval history: No cardiac events Objective Vital Signs Temp Pulse Pulse Resp BP Pulse Ox Pulse Ox 06/12/17 08:35 103 H 117/65 96 95 06/12/17 08:00 98.6 F 06/12/17 06:42 92 H 125/75 06/12/17 06:36 92 H 125/75 06/12/17 06:30 89 19 125/75 99 06/12/17 06:01 82 12 108/44 98 06/12/17 05:31 90 12 111/62 99 06/12/17 05:01 91 H 12 126/67 99 06/12/17 04:31 96 H 15 125/70 98 06/12/17 04:01 96 H 14 126/71 99 06/12/17 04:00 98.6 F 06/12/17 03:42 93 H 120/72 100 06/12/17 03:30 96 H 15 124/70 100 06/12/17 03:01 95 H 14 128/68 99 06/12/17 02:30 96 H 13 122/67 99 06/12/17 02:00 97 H 14 121/69 100 06/12/17 01:31 102 H 12 123/67 99 06/12/17 01:01 99 H 15 128/71 100 06/12/17 00:31 96 H 14 119/67 100 06/12/17 00:01 96 H 13 127/70 100 06/12/17 00:00 98.9 F 06/11/17 23:31 97 H 14 136/79 98 06/11/17 23:30 97 H 149/90 100 06/11/17 23:01 92 H 12 127/73 99 06/11/17 22:31 93 H 12 128/75 99 06/11/17 22:01 97 H 11 L 129/81 99 06/11/17 22:00 94 H 16 100 06/11/17 21:49 96 H 144/84 06/11/17 21:47 95 H 144/84 06/11/17 21:46 96 H 144/84 06/11/17 21:31 101 H 15 144/84 98 06/11/17 21:01 102 H 19 138/81 99 06/11/17 20:31 95 H 12 128/74 99 06/11/17 20:06 100 06/11/17 20:01 100 H 13 131/79 100 06/11/17 20:00 98.0 F 16 100 06/11/17 19:58 94 H 121/65 100 06/11/17 19:31 94 H 12 130/67 99 06/11/17 19:01 95 H 12 129/68 98 06/11/17 18:30 101 H 12 139/77 100 06/11/17 18:00 121 H 16 139/76 99 06/11/17 17:55 96 H 137/79 100 06/11/17 17:45 117 H 131/68 06/11/17 17:39 117 H 131/68 06/11/17 17:35 14 131/68 06/11/17 17:30 94 H 13 130/72 98 06/11/17 17:00 93 H 12 137/79 99 06/11/17 16:30 90 12 132/77 99 06/11/17 16:00 94 H 97 H 14 128/80 100 06/11/17 15:34 98.1 F 06/11/17 15:30 92 H 12 137/75 06/11/17 15:00 90 12 139/73 99 06/11/17 14:30 97 H 13 159/78 100 06/11/17 14:28 94 H 100 06/11/17 14:00 91 H 12 131/69 06/11/17 13:31 98.2 F 89 14 131/68 100 06/11/17 13:30 93 H 12 138/75 06/11/17 13:08 14 06/11/17 13:00 96 H 13 146/76 99 06/11/17 12:30 104 H 14 157/82 98 06/11/17 12:00 98.2 F 110 H 89 13 140/81 99 03/29/18 11:30 120 H 180/107 100 06/11/17 11:18 97.9 F 89 20 131/68 100 06/11/17 11:00 93 H 131/68 06/11/17 10:30 97 H 150/78 99 - Physical Examination General: Other (intubated on the vent.) HEENT: Positive: Other (pupils fixed) Neck: Positive: neck supple Cardiac: Positive: Reg Rate and Rhythm Lungs: Positive: clear to auscultation Neuro: Positive: Other (unresponsive, on the vent) Abdomen: Positive: Soft Skin: Positive: Clear Extremities: Absent: edema - Labs and Meds CBC 06/12/17 Range/Units 04:24 WBC 17.4 H (4.5-11.0) K/mm3 RBC 2.90 L (3.65-5.03) M/mm3 Hgb 8.0 L (10.1-14.3) gm/dl Hct 23.0 L (30.3-42.9) % Plt Count 460 H (140-440) K/mm3 Comprehensive Metabolic Panel 06/12/17 06/12/17 Range/Units 06:00 08:47 Glucose 41 L 87 (65-100) mg/dL - Imaging and Cardiology EKG: report reviewed (sinus tachycardia)
[2017-06-12] MEDS: PEPCID PO SCH ×2 (11:16→21:49)
[2017-06-12] MEDS: ZAROXOLYN PO SCH ×2 (11:16→21:42)
[2017-06-12] MEDS: KEPPRA PO SCH ×2 (11:16→21:50)
[2017-06-12] MEDS: COREG PO SCH ×2 (11:17→21:43)
[2017-06-12] MEDS: LOVENOX SUB-Q SCH (11:17)
[2017-06-12] MEDS: ALDACTONE PO SCH (11:18)
[2017-06-12] MEDS: TRANSDERM-SCOP TD SCH (11:21)
--- NOTE | 2017-06-12 11:48 | Progress Note ---
Assessment and Plan - Patient Problems (1) Acute renal failure with tubular necrosis Current Visit: Yes Status: Acute Plan to address problem: Non-Oliguric Acute renal failure/acute tubular necrosis. Kidney function unchanged from previous. Follow kidney function and electrolytes on diuretics. (2) Acute respiratory failure Current Visit: Yes Status: Acute Qualifiers: Respiratory failure complication: hypoxia Qualified Code(s): J96.01 - Acute respiratory failure with hypoxia Plan to address problem: Ventilator management by primary attending (3) Hyperosmolar non-ketotic state in patient with type 2 diabetes mellitus Current Visit: Yes Status: Acute Plan to address problem: Blood sugar management by primary attending (4) Proteinuria Current Visit: Yes Status: Acute Plan to address problem: likely due to underlying diabetic nephropathy. ARAM-I contraindicated due to h/o allergy (5) Hypertension Current Visit: Yes Status: Acute Qualifiers: Hypertension type: essential hypertension Qualified Code(s): I10 - Essential (primary) hypertension Plan to address problem: Blood pressure has improved. Follow blood pressure on current medications (6) Acute systolic heart failure Current Visit: Yes Status: Acute Plan to address problem: Continue diuretics and beta jas. Continue spironolactone and monitor fluid balance. ARAM inhibitor/angiotensin receptor jas contraindicated due to her history of allergy Subjective Date of service: 06/12/17 Principal diagnosis: coma, acute kidney injury Interval history: pt s/p trach/peg, opening eyes, however not responding to pain stimuli, not following commands Objective - Vital Signs Vital signs: Vital Signs - 12hr 06/12/17 06/12/17 06/12/17 00:00 00:01 00:31 Temperature 98.9 F Pulse Rate 96 H 96 H Respiratory 13 14 Rate Blood Pressure 127/70 119/67 O2 Sat by Pulse 100 100 Oximetry O2 Sat by Pulse Oximetry [ Assessment] 06/12/17 06/12/17 06/12/17 01:01 01:31 02:00 Temperature Pulse Rate 99 H 102 H 97 H Respiratory 15 12 14 Rate Blood Pressure 128/71 123/67 121/69 O2 Sat by Pulse 100 99 100 Oximetry O2 Sat by Pulse Oximetry [ Assessment] 06/12/17 06/12/17 06/12/17 02:30 03:01 03:30 Temperature Pulse Rate 96 H 95 H 96 H Respiratory 13 14 15 Rate Blood Pressure 122/67 128/68 124/70 O2 Sat by Pulse 99 99 100 Oximetry O2 Sat by Pulse Oximetry [ Assessment] 06/12/17 06/12/17 06/12/17 03:42 04:00 04:01 Temperature 98.6 F Pulse Rate 93 H 96 H Respiratory 14 Rate Blood Pressure 120/72 126/71 O2 Sat by Pulse 100 99 Oximetry O2 Sat by Pulse Oximetry [ Assessment] 06/12/17 06/12/17 06/12/17 04:31 05:01 05:31 Temperature Pulse Rate 96 H 91 H 90 Respiratory 15 12 12 Rate Blood Pressure 125/70 126/67 111/62 O2 Sat by Pulse 98 99 99 Oximetry O2 Sat by Pulse Oximetry [ Assessment] 06/12/17 06/12/17 06/12/17 06:01 06:30 06:36 Temperature Pulse Rate 82 89 92 H Respiratory 12 19 Rate Blood Pressure 108/44 125/75 125/75 O2 Sat by Pulse 98 99 Oximetry O2 Sat by Pulse Oximetry [ Assessment] 06/12/17 06/12/17 06/12/17 06:42 08:00 08:35 Temperature 98.6 F Pulse Rate 92 H 103 H Respiratory Rate Blood Pressure 125/75 117/65 O2 Sat by Pulse 96 Oximetry O2 Sat by Pulse 95 Oximetry [ Assessment] 06/12/17 06/12/17 11:17 11:18 Temperature Pulse Rate 109 H 109 H Respiratory Rate Blood Pressure 134/72 134/72 O2 Sat by Pulse Oximetry O2 Sat by Pulse Oximetry [ Assessment] - General Appearance General appearance: well-developed, well-nourished, intubated EENT: ATNC, mucous membranes moist Neck: no JVD Respiratory: Present: Clear to Ascultation Cardiology: regular, S1S2 Gastrointestinal: normoactive bowel sounds Integumentary: no rash, other (no edema ) Neurologic: other (intubated, unresponsive ) - Lab 06/12/17 04:24 06/12/17 08:47 Most recent lab results Calcium 8.4 mg/dL (8.4-10.2) 06/11/17 06:03 Phosphorus 4.40 mg/dL (2.5-4.5) 06/07/17 07:51 Magnesium 1.70 mg/dL (1.7-2.3) 06/07/17 07:51 Urine Creatinine 78.7 mg/dL (0.1-20.0) H 06/04/17 17:21 Urine Sodium 10 mmol/L 06/02/17 10:18 Urine Total Protein 197 mg/dL (5-11.8) H 06/04/17 17:21
--- NOTE | 2017-06-12 14:16 | Progress Note ---
Assessment and Plan 36 yo F with 1. VDRF s/p Percutaneous tracheostomy, fiberoptic bronchoscopy, PEG tube placement POD 1 2. gastroparesis 3. metabolic encephalopathy 4. s/p cardiac arrest 5. DM 6. seizures Plan: 1. Trach care per protocol, remove sutures on post op day 5 - 4/3 2. continue vent support per ICU team 3. continue TF at goal 4. DVT ppx 5. dc planning per ICU team will s/o, please call with questions or concerns. Subjective Date of service: 06/12/17 Objective Vital Signs - 12hr 06/12/17 06/12/17 06/12/17 02:30 03:01 03:30 Temperature Pulse Rate 96 H 95 H 96 H Pulse Rate [ From Monitor] Respiratory 13 14 15 Rate Blood Pressure 122/67 128/68 124/70 O2 Sat by Pulse 99 99 100 Oximetry O2 Sat by Pulse Oximetry [ Assessment] 06/12/17 06/12/17 06/12/17 03:42 04:00 04:01 Temperature 98.6 F Pulse Rate 93 H 96 H Pulse Rate [ From Monitor] Respiratory 14 Rate Blood Pressure 120/72 126/71 O2 Sat by Pulse 100 99 Oximetry O2 Sat by Pulse Oximetry [ Assessment] 06/12/17 06/12/17 06/12/17 04:31 05:01 05:31 Temperature Pulse Rate 96 H 91 H 90 Pulse Rate [ From Monitor] Respiratory 15 12 12 Rate Blood Pressure 125/70 126/67 111/62 O2 Sat by Pulse 98 99 99 Oximetry O2 Sat by Pulse Oximetry [ Assessment] 06/12/17 06/12/17 06/12/17 06:01 06:30 06:36 Temperature Pulse Rate 82 89 92 H Pulse Rate [ From Monitor] Respiratory 12 19 Rate Blood Pressure 108/44 125/75 125/75 O2 Sat by Pulse 98 99 Oximetry O2 Sat by Pulse Oximetry [ Assessment] 06/12/17 06/12/17 06/12/17 06:42 07:00 07:31 Temperature Pulse Rate 92 H 99 H 96 H Pulse Rate [ From Monitor] Respiratory 18 14 Rate Blood Pressure 125/75 127/78 120/74 O2 Sat by Pulse 99 100 Oximetry O2 Sat by Pulse Oximetry [ Assessment] 06/12/17 06/12/17 06/12/17 08:00 08:01 08:30 Temperature 98.6 F Pulse Rate 92 H 101 H Pulse Rate [ From Monitor] Respiratory 29 H 20 Rate Blood Pressure 107/56 117/65 O2 Sat by Pulse 85 94 Oximetry O2 Sat by Pulse Oximetry [ Assessment] 06/12/17 06/12/17 06/12/17 08:35 09:00 09:31 Temperature Pulse Rate 103 H 106 H 104 H Pulse Rate [ From Monitor] Respiratory 20 17 Rate Blood Pressure 117/65 126/77 127/70 O2 Sat by Pulse 96 100 100 Oximetry O2 Sat by Pulse 95 Oximetry [ Assessment] 06/12/17 06/12/17 06/12/17 10:00 10:01 10:31 Temperature Pulse Rate 109 H 105 H 107 H Pulse Rate [ 108 H From Monitor] Respiratory 16 19 18 Rate Blood Pressure 127/68 129/70 O2 Sat by Pulse 100 100 100 Oximetry O2 Sat by Pulse Oximetry [ Assessment] 06/12/17 06/12/17 06/12/17 11:01 11:17 11:18 Temperature Pulse Rate 109 H 109 H 109 H Pulse Rate [ From Monitor] Respiratory 21 Rate Blood Pressure 134/72 134/72 134/72 O2 Sat by Pulse 100 Oximetry O2 Sat by Pulse Oximetry [ Assessment] 06/12/17 06/12/17 06/12/17 11:31 11:44 12:00 Temperature 100.5 F H Pulse Rate 109 H 109 H Pulse Rate [ From Monitor] Respiratory 18 Rate Blood Pressure 135/71 135/71 O2 Sat by Pulse 100 100 Oximetry O2 Sat by Pulse Oximetry [ Assessment] 06/12/17 06/12/17 12:01 14:03 Temperature Pulse Rate 110 H 110 H Pulse Rate [ From Monitor] Respiratory 20 Rate Blood Pressure 138/71 138/71 O2 Sat by Pulse 100 Oximetry O2 Sat by Pulse Oximetry [ Assessment] - Labs 06/12/17 04:24 06/12/17 08:47 Diabetes panel 06/12/17 06/12/17 Range/Units 06:00 08:47 Glucose 41 L 87 (65-100) mg/dL Pituitary panel 06/12/17 06/12/17 Range/Units 06:00 08:47 Glucose 41 L 87 (65-100) mg/dL Adrenal panel 06/12/17 06/12/17 Range/Units 06:00 08:47 Glucose 41 L 87 (65-100) mg/dL
[2017-06-12] MEDS ORDERED: SIMPLE SYRUP FEEDTUBE PRN ×2 (14:46)
[2017-06-12] MEDS ORDERED: SODIUM BICARBONATE FEEDTUBE PRN (14:46)
[2017-06-12] MEDS ORDERED: PANCREAZE DR 10,500 UNIT FEEDTUBE PRN (14:46)
[2017-06-12] MEDS: LASIX PO SCH ×2 (22:03→22:06)
[2017-06-13] MEDS: NAMENDA PO SCH ×2 (05:03→17:29)
[2017-06-13] MEDS: APRESOLINE PO SCH ×3 (05:03→21:30)
[2017-06-13] MEDS: HumaLOG SUB-Q SCH ×3 (05:08→17:29)
[2017-06-13] MEDS: ISORDIL TITRADOSE PO SCH ×3 (05:45→21:32)
--- NOTE | 2017-06-13 07:58 | Progress Note ---
Assessment and Plan Seizures Respiratory failure intubated on mechanical ventilation Hypoxic encephalopathy Acute renal failure Diabetes mellitus Dilated Cardiomyopathy EF 15-20% on echo this admission. Echo done 10/2016 at [place] showed LVEF 35-40% with severe pulmonary hypertension. At that time, there was a plan to perform a LHC but this had to be cancelled due to severe gastroparesis and renal failure. Hypertension Recommendations: Continue medical therapy for her dilated cardiomyopathy. Conservative cardiac management. Subjective Date of service: 06/13/17 Principal diagnosis: coma, acute kidney injury Interval history: No acute events. Trach in place. on vent. Objective Vital Signs Temp Pulse Pulse Resp BP Pulse Ox Pulse Ox 06/13/17 06:30 103 H 15 139/86 98 06/13/17 06:18 102 H 13 100 06/13/17 06:00 102 H 19 138/84 100 06/13/17 05:48 13 100 06/13/17 05:45 103 H 136/82 06/13/17 05:30 104 H 16 136/83 06/13/17 05:03 100 H 136/73 06/13/17 05:00 100 H 13 136/73 100 06/13/17 04:30 102 H 17 144/82 100 06/13/17 04:01 98.9 F 06/13/17 04:00 101 H 18 134/77 06/13/17 03:52 100 06/13/17 03:37 105 H 134/77 97 06/13/17 03:30 103 H 18 140/85 06/13/17 03:00 105 H 15 142/86 06/13/17 02:30 105 H 19 129/79 06/13/17 02:07 13 100 06/13/17 02:00 102 H 14 121/73 100 06/13/17 01:50 102 H 13 100 06/13/17 01:30 104 H 21 129/78 100 06/13/17 01:00 102 H 17 121/73 100 06/13/17 00:30 105 H 17 119/77 100 06/13/17 00:26 100 06/13/17 00:14 108 H 117/75 100 06/13/17 00:10 13 100 06/13/17 00:00 108 H 18 119/77 99 06/12/17 23:58 98.7 F 06/12/17 23:34 104 H 21 119/77 95 03/30/18 23:30 103 H 20 119/77 98 06/12/17 23:12 104 H 20 120/72 100 06/12/17 23:00 102 H 15 131/74 96 18 22:30 105 H 22 134/76 06/12/17 22:00 101 H 15 131/74 96 06/12/17 21:43 99 H 112/61 06/12/17 21:41 100 H 112/61 06/12/17 21:40 99 H 13 100 06/12/17 21:30 98 H 15 112/61 99 06/12/17 21:00 99 H 13 124/65 06/12/17 20:30 104 H 17 124/65 99 06/12/17 20:00 101 H 14 117/64 99 06/12/17 19:54 97.5 F L 06/12/17 19:34 96 H 108/57 99 06/12/17 19:30 98 H 19 108/57 06/12/17 19:15 100 H 13 100 06/12/17 19:00 100 H 15 122/68 100 06/12/17 18:30 97 H 12 118/64 100 06/12/17 18:00 99 H 100 H 17 114/64 100 06/12/17 17:30 103 H 18 130/73 06/12/17 17:00 99 H 13 130/73 99 06/12/17 16:32 101 H 124/73 98 98 06/12/17 16:30 100 H 16 128/73 06/12/17 16:00 100 H 14 128/73 06/12/17 15:39 99.4 F 06/12/17 15:30 103 H 18 127/72 06/12/17 15:00 102 H 16 127/82 100 06/12/17 14:30 103 H 15 128/76 99 06/12/17 14:03 110 H 138/71 06/12/17 14:00 107 H 100 H 19 127/82 100 06/12/17 13:31 107 H 21 145/77 06/12/17 13:00 137 H 18 130/69 100 06/12/17 12:31 108 H 15 135/70 100 06/12/17 12:01 110 H 20 138/71 100 06/12/17 12:00 100.5 F H 06/12/17 11:44 109 H 135/71 100 06/12/17 11:31 109 H 18 135/71 100 06/12/17 11:18 109 H 134/72 06/12/17 11:17 109 H 134/72 06/12/17 11:01 109 H 21 134/72 100 06/12/17 10:31 107 H 18 129/70 100 06/12/17 10:01 105 H 19 127/68 100 06/12/17 10:00 109 H 108 H 16 100 06/12/17 09:31 104 H 17 127/70 100 06/12/17 09:00 106 H 20 126/77 100 06/12/17 08:35 103 H 117/65 96 95 06/12/17 08:30 101 H 20 117/65 94 06/12/17 08:01 92 H 29 H 107/56 85 06/12/17 08:00 98.6 F - Physical Examination General: Other (intubated on the vent.) HEENT: Positive: Other (pupils fixed) Neck: Positive: neck supple Neuro: Positive: Other (unresponsive, on the vent) Abdomen: Positive: Soft Skin: Positive: Clear Extremities: Absent: edema - Labs and Meds Comprehensive Metabolic Panel 06/12/17 Range/Units 08:47 Glucose 87 (65-100) mg/dL - Imaging and Cardiology EKG: report reviewed (sinus tachycardia)
--- NOTE | 2017-06-13 09:13 | Progress Note ---
Assessment and Plan Assessment and plan: Patient had 36-year-old -[place] female was admitted to the floor for seizure episode, altered mental status, acute hypoxic respiratory failure, patient was intubated in the emergency department patient had PEA and resuscitated successfully. Acute hypoxic respiratory failure -was intubated, on mechanical ventilation>96hrs, now tracheostomy to ventilator -Had PEG and Trach, yesterday. Acute encephalopathy with anoxic hypoxic brain injury - treat underlying cause Seizure disorder-complex partial - Patient is on IV Keppra - Cont Namenda -Neurology following Cardiomyopathy -Cardiology following Hyperosmolar hyperglycemic syndrome in Diabetes mellitus type 2 - She was on Insulin drip, now on subcut Insulin Hypoglycemia.episodes, Now resolved after given doses of 50%Dextrose and started on 5%dextrose. Will discontinue 5%Dextrose since glucose>300 consistently Acute kidney injury. -Creatinine 1.8 Nephrology following Hypertension. BP stable on Hydralazine 50mg q 8hrs. DVT prophylaxis with Lovenox Disposition - Continue ICU care. poor prognosis POOR PROGNOSIS History Interval history: Still intubated, Unresponsive, PEG and Trach done 06/11 Hospitalist Physical - Physical exam Narrative exam: Gen appearance:Not in acute distress Intubated, lying in bed, obese HEENT: facial edema, Neck:supple, no JVD, Tracheostomy Lungs: Coarse breath sounds bilaterally, no wheeze Heart: S1 and S2 regular, no murmurs, rubs or gallop Abdomen: soft, non tender, non distended, normal bowel sounds, PEG tube present Ext: Edema both upper and lower extremities, no cyanosis,anasarca Neuro: Unresponsive - Constitutional Vitals: Temp Pulse Resp BP Pulse Ox 98 F 103 H 26 H 138/90 100 06/13/17 08:00 06/13/17 08:30 06/13/17 08:30 06/13/17 08:30 06/13/17 08:30 General appearance: Present: other (unresponsive, on the ventilator) Results - Labs CBC & Chem 7: 06/12/17 04:24 06/12/17 08:47 Labs: Laboratory Last Values WBC 17.4 K/mm3 (4.5-11.0) H 06/12/17 04:24 RBC 2.90 M/mm3 (3.65-5.03) L 06/12/17 04:24 Hgb 8.0 gm/dl (10.1-14.3) L 06/12/17 04:24 Hct 23.0 % (30.3-42.9) L 06/12/17 04:24 MCV 79 fl (79-97) 06/12/17 04:24 MCH 28 pg (28-32) 06/12/17 04:24 MCHC 35 % (30-34) H 06/12/17 04:24 RDW 15.1 % (13.2-15.2) 06/12/17 04:24 Plt Count 460 K/mm3 (140-440) H 06/12/17 04:24 Lymph % (Auto) 7.3 % (13.4-35.0) L 06/04/17 04:05 Mccracken % (Auto) 10.8 % (0.0-7.3) H 06/04/17 04:05 Eos % (Auto) 0.1 % (0.0-4.3) 06/04/17 04:05 Baso % (Auto) 0.4 % (0.0-1.8) 06/04/17 04:05 Lymph # 1.4 K/mm3 (1.2-5.4) 06/04/17 04:05 Mccracken # 2.1 K/mm3 (0.0-0.8) H 06/04/17 04:05 Eos # 0.0 K/mm3 (0.0-0.4) 06/04/17 04:05 Baso # 0.1 K/mm3 (0.0-0.1) 06/04/17 04:05 Add Manual Diff Complete 06/03/17 04:14 Total Counted 100 06/03/17 04:14 Seg Neutrophils % 81.4 % (40.0-70.0) H 06/04/17 04:05 Seg Neuts % (Manual) 94.0 % (40.0-70.0) H 06/03/17 04:14 Band Neutrophils % 0 % 06/03/17 04:14 Lymphocytes % (Manual) 3.0 % (13.4-35.0) L 06/03/17 04:14 Reactive Lymphs % (Man) 0 % 06/03/17 04:14 Monocytes % (Manual) 3.0 % (0.0-7.3) 06/03/17 04:14 Eosinophils % (Manual) 0 % (0.0-4.3) 06/03/17 04:14 Basophils % (Manual) 0 % (0.0-1.8) 06/03/17 04:14 Metamyelocytes % 0 % 06/03/17 04:14 Myelocytes % 0 % 06/03/17 04:14 Promyelocytes % 0 % 06/03/17 04:14 Blast Cells % 0 % 06/03/17 04:14 Nucleated RBC % Not Reportable 06/03/17 04:14 Seg Neutrophils # 15.9 K/mm3 (1.8-7.7) H 06/04/17 04:05 Seg Neutrophils # Man 19.8 K/mm3 (1.8-7.7) H 06/03/17 04:14 Band Neutrophils # 0.0 K/mm3 06/03/17 04:14 Lymphocytes # (Manual) 0.6 K/mm3 (1.2-5.4) L 06/03/17 04:14 Abs React Lymphs (Man) 0.0 K/mm3 06/03/17 04:14 Monocytes # (Manual) 0.6 K/mm3 (0.0-0.8) 06/03/17 04:14 Eosinophils # (Manual) 0.0 K/mm3 (0.0-0.4) 06/03/17 04:14 Basophils # (Manual) 0.0 K/mm3 (0.0-0.1) 06/03/17 04:14 Metamyelocytes # 0.0 K/mm3 06/03/17 04:14 Myelocytes # 0.0 K/mm3 06/03/17 04:14 Promyelocytes # 0.0 K/mm3 06/03/17 04:14 Blast Cells # 0.0 K/mm3 06/03/17 04:14 WBC Morphology Not Reportable 06/03/17 04:14 Hypersegmented Neuts Not Reportable 06/03/17 04:14 Hyposegmented Neuts Not Reportable 06/03/17 04:14 Hypogranular Neuts Not Reportable 06/03/17 04:14 Smudge Cells Not Reportable 06/03/17 04:14 Toxic Granulation Not Reportable 06/03/17 04:14 Toxic Vacuolation Not Reportable 06/03/17 04:14 Dohle Bodies Not Reportable 06/03/17 04:14 Pelger-Huet Anomaly Not Reportable 06/03/17 04:14 Don Rods Not Reportable 06/03/17 04:14 Platelet Estimate Consistent w auto 06/03/17 04:14 Clumped Platelets Not Reportable 06/03/17 04:14 Plt Clumps, EDTA Not Reportable 06/03/17 04:14 Large Platelets Not Reportable 06/03/17 04:14 Giant Platelets Not Reportable 06/03/17 04:14 Platelet Satelliting Not Reportable 06/03/17 04:14 Plt Morphology Comment Not Reportable 06/03/17 04:14 RBC Morphology Not Reportable 06/03/17 04:14 Dimorphic RBCs Not Reportable 06/03/17 04:14 Polychromasia Not Reportable 06/03/17 04:14 Hypochromasia Not Reportable 06/03/17 04:14 Poikilocytosis Not Reportable 06/03/17 04:14 Anisocytosis Not Reportable 06/03/17 04:14 Microcytosis Not Reportable 06/03/17 04:14 Macrocytosis Not Reportable 06/03/17 04:14 Spherocytes Not Reportable 06/03/17 04:14 Pappenheimer Bodies Not Reportable 06/03/17 04:14 Sickle Cells Not Reportable 06/03/17 04:14 Target Cells Not Reportable 06/03/17 04:14 Tear Drop Cells Not Reportable 06/03/17 04:14 Ovalocytes Not Reportable 06/03/17 04:14 Helmet Cells Not Reportable 06/03/17 04:14 Wade-Otranto Bodies Not Reportable 06/03/17 04:14 Randle Rings Not Reportable 06/03/17 04:14 Cecy Cells Not Reportable 06/03/17 04:14 Bite Cells Not Reportable 06/03/17 04:14 Crenated Cell Not Reportable 06/03/17 04:14 Elliptocytes Not Reportable 06/03/17 04:14 Acanthocytes (Spur) Not Reportable 06/03/17 04:14 Rouleaux Not Reportable 06/03/17 04:14 Hemoglobin C Crystals Not Reportable 06/03/17 04:14 Schistocytes Not Reportable 06/03/17 04:14 Malaria parasites Not Reportable 06/03/17 04:14 Fadi Bodies Not Reportable 06/03/17 04:14 Hem Pathologist Commnt No 06/03/17 04:14 PT 12.4 Sec. (12.2-14.9) 06/09/17 04:18 INR 0.88 (0.87-1.13) 06/09/17 04:18 POC ABG pH 7.461 (7.35-7.45) H 06/10/17 03:24 POC ABG pCO2 36.6 (35-45) 06/10/17 03:24 POC ABG pO2 131 (80-105) H 06/10/17 03:24 POC ABG HCO3 26.1 06/10/17 03:24 POC ABG Total CO2 27 06/10/17 03:24 POC ABG O2 Sat 99 06/10/17 03:24 POC ABG Base Excess 2 06/10/17 03:24 VBG pH 7.327 (7.320-7.420) 05/30/17 10:43 FiO2 45 % 06/10/17 03:24 Sodium 140 mmol/L (137-145) 06/11/17 06:03 Potassium 4.2 mmol/L (3.6-5.0) 06/11/17 06:03 Chloride 102.5 mmol/L (98-107) 06/11/17 06:03 Carbon Dioxide 23 mmol/L (22-30) 06/11/17 06:03 Anion Gap 19 mmol/L 06/11/17 06:03 BUN 55 mg/dL (7-17) H 06/11/17 06:03 Creatinine 1.8 mg/dL (0.7-1.2) H 06/11/17 06:03 Estimated GFR 39 ml/min 06/11/17 06:03 BUN/Creatinine Ratio 31 % 06/11/17 06:03 Glucose 87 mg/dL (65-100) 06/12/17 08:47 POC Glucose 350 (70-105) H 06/13/17 06:21 Hemoglobin A1c 9.7 % (4-6) H 05/31/17 05:45 Calcium 8.4 mg/dL (8.4-10.2) 06/11/17 06:03 Phosphorus 4.40 mg/dL (2.5-4.5) 06/07/17 07:51 Magnesium 1.70 mg/dL (1.7-2.3) 06/07/17 07:51 Total Bilirubin 0.50 mg/dL (0.1-1.2) 06/02/17 04:24 AST 23 units/L (5-40) 06/02/17 04:24 ALT 14 units/L (7-56) 06/02/17 04:24 Alkaline Phosphatase 132 units/L (35-129) H 06/02/17 04:24 Total Protein 4.1 g/dL (6.3-8.2) L 06/02/17 04:24 Albumin 1.7 g/dL (3.9-5) L 06/02/17 04:24 Albumin/Globulin Ratio 0.7 % 06/02/17 04:24 Urine Color Yellow (Yellow) 05/30/17 15:04 Urine Turbidity Clear (Clear) 05/30/17 15:04 Urine pH 7.0 (5.0-7.0) 05/30/17 15:04 Ur Specific [place] 1.021 (1.003-1.030) 05/30/17 15:04 Urine Protein >500 mg/dL (Negative) 05/30/17 15:04 Urine Glucose (UA) >=500 mg/dL (Negative) 05/30/17 15:04 Urine Ketones Tr mg/dL (Negative) 05/30/17 15:04 Urine Blood Sm (Negative) 05/30/17 15:04 Urine Nitrite Neg (Negative) 05/30/17 15:04 Urine Bilirubin Neg (Negative) 05/30/17 15:04 Urine Urobilinogen < 2.0 mg/dL (<2.0) 05/30/17 15:04 Ur Leukocyte Esterase Neg (Negative) 05/30/17 15:04 Urine WBC (Auto) 2.0 /HPF (0.0-6.0) 05/30/17 15:04 Urine RBC (Auto) 5.0 /HPF (0.0-6.0) 05/30/17 15:04 Urine Bacteria (Auto) 1+ /HPF (Negative) 05/30/17 15:04 Urine Mucus Few /HPF 05/30/17 15:04 Urine Creatinine 78.7 mg/dL (0.1-20.0) H 06/04/17 17:21 Urine Sodium 10 mmol/L 06/02/17 10:18 Urine Total Protein 197 mg/dL (5-11.8) H 06/04/17 17:21 Urine Opiates Screen Presumptive negative 05/30/17 15:04 Urine Methadone Screen Presumptive negative 05/30/17 15:04 Ur Barbiturates Screen Presumptive negative 05/30/17 15:04 Levetiracetam 21.2 mcg/mL 05/30/17 08:59 Ur Phencyclidine Scrn Presumptive negative 05/30/17 15:04 Ur Amphetamines Screen Presumptive negative 05/30/17 15:04 U Benzodiazepines Scrn Presumptive negative 05/30/17 15:04 Urine Cocaine Screen Presumptive negative 05/30/17 15:04 U Marijuana (THC) Screen Presumptive positive 05/30/17 15:04 Drugs of Abuse Note Disclamer 05/30/17 15:04
[2017-06-13] MEDS: KEPPRA PO SCH ×2 (09:35→21:30)
[2017-06-13] MEDS: LANTUS SUB-Q SCH (09:35)
[2017-06-13] MEDS: ZAROXOLYN PO SCH ×2 (09:36→21:32)
[2017-06-13] MEDS: LASIX PO SCH ×2 (09:36→21:30)
[2017-06-13] MEDS: COREG PO SCH ×2 (09:36→21:32)
[2017-06-13] MEDS: LOVENOX SUB-Q SCH (09:37)
[2017-06-13] MEDS: ALDACTONE PO SCH (09:37)
[2017-06-13] MEDS: PEPCID PO SCH ×2 (09:38→21:31)
--- NOTE | 2017-06-13 10:28 | Progress Note ---
Assessment and Plan 36 y/o female with acute respiratory failure secondary to metabolic encephalopathy, thought to be from seizures, s/p cardiac arrest. 1. Continue PSV trials, status post trach and peg 2. q1 hour FSBS until at least 3 consecutive sugars >180 3. Will follow up with CM about LTACH and other options 4. Restart long acting insulin now that basal sugars are better and back on Tube feeds CCT 31 minutes. Subjective Date of service: 06/13/17 Principal diagnosis: coma, acute kidney injury Interval history: No acute events. Stable on PSV. Blood sugars have improved and she is off D5W Objective Vital Signs - 12hr 06/12/17 06/12/17 06/12/17 22:30 23:00 23:12 Temperature Pulse Rate 105 H 102 H 104 H Respiratory 22 15 20 Rate Blood Pressure 134/76 131/74 120/72 O2 Sat by Pulse 96 100 Oximetry O2 Sat by Pulse Oximetry [ Assessment] 06/12/17 06/12/17 06/12/17 23:30 23:34 23:58 Temperature 98.7 F Pulse Rate 103 H 104 H Respiratory 20 21 Rate Blood Pressure 119/77 119/77 O2 Sat by Pulse 98 95 Oximetry O2 Sat by Pulse Oximetry [ Assessment] 06/13/17 06/13/17 06/13/17 00:00 00:10 00:14 Temperature Pulse Rate 108 H 108 H Respiratory 18 13 Rate Blood Pressure 119/77 117/75 O2 Sat by Pulse 99 100 100 Oximetry O2 Sat by Pulse Oximetry [ Assessment] 06/13/17 06/13/17 06/13/17 00:26 00:30 01:00 Temperature Pulse Rate 105 H 102 H Respiratory 17 17 Rate Blood Pressure 119/77 121/73 O2 Sat by Pulse 100 100 Oximetry O2 Sat by Pulse 100 Oximetry [ Assessment] 06/13/17 06/13/17 06/13/17 01:30 01:50 02:00 Temperature Pulse Rate 104 H 102 H 102 H Respiratory 21 13 14 Rate Blood Pressure 129/78 121/73 O2 Sat by Pulse 100 100 100 Oximetry O2 Sat by Pulse Oximetry [ Assessment] 06/13/17 06/13/17 06/13/17 02:07 02:30 03:00 Temperature Pulse Rate 105 H 105 H Respiratory 13 19 15 Rate Blood Pressure 129/79 142/86 O2 Sat by Pulse 100 Oximetry O2 Sat by Pulse Oximetry [ Assessment] 06/13/17 06/13/17 06/13/17 03:30 03:37 03:52 Temperature Pulse Rate 103 H 105 H Respiratory 18 Rate Blood Pressure 140/85 134/77 O2 Sat by Pulse 97 Oximetry O2 Sat by Pulse 100 Oximetry [ Assessment] 06/13/17 06/13/17 06/13/17 04:00 04:01 04:30 Temperature 98.9 F Pulse Rate 101 H 102 H Respiratory 18 17 Rate Blood Pressure 134/77 144/82 O2 Sat by Pulse 100 Oximetry O2 Sat by Pulse Oximetry [ Assessment] 06/13/17 06/13/17 06/13/17 05:00 05:03 05:30 Temperature Pulse Rate 100 H 100 H 104 H Respiratory 13 16 Rate Blood Pressure 136/73 136/73 136/83 O2 Sat by Pulse 100 Oximetry O2 Sat by Pulse Oximetry [ Assessment] 06/13/17 06/13/17 06/13/17 05:45 05:48 06:00 Temperature Pulse Rate 103 H 102 H Respiratory 13 19 Rate Blood Pressure 136/82 138/84 O2 Sat by Pulse 100 100 Oximetry O2 Sat by Pulse Oximetry [ Assessment] 06/13/17 06/13/17 06/13/17 06:18 06:30 07:00 Temperature Pulse Rate 102 H 103 H 103 H Respiratory 13 15 15 Rate Blood Pressure 139/86 139/86 O2 Sat by Pulse 100 98 100 Oximetry O2 Sat by Pulse Oximetry [ Assessment] 06/13/17 06/13/17 06/13/17 07:30 08:00 08:10 Temperature 98 F Pulse Rate 103 H 104 H Respiratory 17 14 Rate Blood Pressure 136/82 129/84 O2 Sat by Pulse 97 100 100 Oximetry O2 Sat by Pulse Oximetry [ Assessment] 06/13/17 06/13/17 06/13/17 08:22 08:25 08:30 Temperature Pulse Rate 104 H 103 H 103 H Respiratory 21 26 H Rate Blood Pressure 129/84 129/84 138/90 O2 Sat by Pulse 100 100 100 Oximetry O2 Sat by Pulse Oximetry [ Assessment] 06/13/17 06/13/17 09:36 09:37 Temperature Pulse Rate 103 H 103 H Respiratory Rate Blood Pressure 147/89 147/89 O2 Sat by Pulse Oximetry O2 Sat by Pulse Oximetry [ Assessment] Constitutional: other (unresponsive, critically ill on ventilator) Eyes: non-icteric ENT: oropharynx moist, other (orally intubated) Neck: supple Effort: normal Ascultation: Bilateral: diminished breath sounds, rales, rhonchi, other (coarse BS bilaterally) Percussion: Bilateral: not dull Cardiovascular: other (tachycardia, RR; no mrg) Gastrointestinal: normoactive bowel sounds, soft, non-tender Integumentary: normal Extremities: no cyanosis, no edema, pink and warm Neurologic: unable to assess, other (unresponsive) Psychiatric: other (not able to assess) CBC and BMP: 06/12/17 04:24 06/12/17 08:47 ABG, PT/INR, D-dimer: ABG POC ABG pH 7.461 (7.35-7.45) H 06/10/17 03:24 POC ABG pCO2 36.6 (35-45) 06/10/17 03:24 POC ABG pO2 131 (80-105) H 06/10/17 03:24 POC ABG HCO3 26.1 06/10/17 03:24 POC ABG Total CO2 27 06/10/17 03:24 POC ABG O2 Sat 99 06/10/17 03:24 PT/INR, D-dimer PT 12.4 Sec. (12.2-14.9) 06/09/17 04:18 INR 0.88 (0.87-1.13) 06/09/17 04:18 Abnormal lab findings: Abnormal Labs 05/30/17 05/30/17 05/30/17 07:48 07:48 08:32 WBC 11.5 H RBC Hgb Hct MCH 27 L MCHC RDW 16.3 H Plt Count Lymph % (Auto) Bee % (Auto) Bee # Seg Neutrophils % Seg Neuts % (Manual) Lymphocytes % (Manual) Basophils % (Manual) Seg Neutrophils # Seg Neutrophils # Man Lymphocytes # (Manual) Basophils # (Manual) POC ABG pH POC ABG pCO2 POC ABG pO2 Sodium 133 L Potassium Chloride 89.9 L Carbon Dioxide BUN 27 H Creatinine 2.0 H Glucose 741 H* POC Glucose > 500 H Hemoglobin A1c Calcium Phosphorus Magnesium AST Alkaline Phosphatase Total Protein Albumin Urine Creatinine Urine Total Protein 05/30/17 05/30/17 05/30/17 08:59 08:59 16:08 WBC 14.5 H RBC Hgb Hct MCH MCHC RDW 16.0 H Plt Count Lymph % (Auto) Bee % (Auto) Bee # Seg Neutrophils % Seg Neuts % (Manual) 95.0 H Lymphocytes % (Manual) 2.0 L Basophils % (Manual) 2.0 H Seg Neutrophils # Seg Neutrophils # Man 13.8 H Lymphocytes # (Manual) 0.3 L Basophils # (Manual) 0.3 H POC ABG pH POC ABG pCO2 POC ABG pO2 Sodium 134 L 135 L Potassium 3.2 L Chloride 90.8 L 93.6 L Carbon Dioxide BUN 28 H 30 H Creatinine 2.0 H 2.1 H Glucose 742 H* 567 H* POC Glucose Hemoglobin A1c Calcium Phosphorus Magnesium AST Alkaline Phosphatase 246 H Total Protein 5.6 L Albumin 2.9 L Urine Creatinine Urine Total Protein 05/30/17 05/30/17 05/30/17 16:35 17:55 18:59 WBC RBC Hgb Hct MCH MCHC RDW Plt Count Lymph % (Auto) Bee % (Auto) Bee # Seg Neutrophils % Seg Neuts % (Manual) Lymphocytes % (Manual) Basophils % (Manual) Seg Neutrophils # Seg Neutrophils # Man Lymphocytes # (Manual) Basophils # (Manual) POC ABG pH 7.544 H POC ABG pCO2 32.0 L POC ABG pO2 155 H Sodium Potassium 3.1 L Chloride 93.9 L Carbon Dioxide BUN 30 H Creatinine 2.0 H Glucose 561 H* POC Glucose 497 H Hemoglobin A1c Calcium Phosphorus Magnesium AST Alkaline Phosphatase Total Protein Albumin Urine Creatinine Urine Total Protein 05/30/17 05/30/17 05/30/17 19:31 19:31 21:38 WBC RBC Hgb Hct MCH MCHC RDW Plt Count Lymph % (Auto) Bee % (Auto) Bee # Seg Neutrophils % Seg Neuts % (Manual) Lymphocytes % (Manual) Basophils % (Manual) Seg Neutrophils # Seg Neutrophils # Man Lymphocytes # (Manual) Basophils # (Manual) POC ABG pH POC ABG pCO2 POC ABG pO2 Sodium 135 L Potassium 2.9 L* Chloride 93.8 L 95.4 L Carbon Dioxide 20 L BUN 29 H 30 H Creatinine 2.2 H 2.3 H Glucose 478 H 364 H POC Glucose Hemoglobin A1c Calcium Phosphorus 2.20 L D Magnesium 1.40 L AST 42 H Alkaline Phosphatase 177 H Total Protein 5.4 L Albumin 2.4 L Urine Creatinine Urine Total Protein 05/30/17 05/31/17 05/31/17 23:06 02:17 05:27 WBC RBC Hgb Hct MCH MCHC RDW Plt Count Lymph % (Auto) Bee % (Auto) Bee # Seg Neutrophils % Seg Neuts % (Manual) Lymphocytes % (Manual) Basophils % (Manual) Seg Neutrophils # Seg Neutrophils # Man Lymphocytes # (Manual) Basophils # (Manual) POC ABG pH 7.489 H POC ABG pCO2 POC ABG pO2 Sodium Potassium 3.2 L 3.5 L Chloride Carbon Dioxide BUN 30 H 31 H Creatinine 2.5 H 2.4 H Glucose 288 H 246 H POC Glucose Hemoglobin A1c Calcium 8.3 L Phosphorus Magnesium AST Alkaline Phosphatase Total Protein Albumin Urine Creatinine Urine Total Protein 05/31/17 05/31/17 05/31/17 05:45 05:45 05:45 WBC RBC Hgb Hct MCH MCHC RDW Plt Count Lymph % (Auto) Bee % (Auto) Bee # Seg Neutrophils % Seg Neuts % (Manual) Lymphocytes % (Manual) Basophils % (Manual) Seg Neutrophils # Seg Neutrophils # Man Lymphocytes # (Manual) Basophils # (Manual) POC ABG pH POC ABG pCO2 POC ABG pO2 Sodium Potassium Chloride Carbon Dioxide BUN 32 H 30 H Creatinine 2.5 H 2.6 H Glucose 266 H 271 H POC Glucose Hemoglobin A1c 9.7 H Calcium 8.3 L 8.2 L Phosphorus Magnesium AST Alkaline Phosphatase 145 H Total Protein 4.7 L Albumin 1.8 L Urine Creatinine Urine Total Protein 05/31/17 05/31/17 05/31/17 08:18 09:20 12:18 WBC RBC Hgb Hct MCH MCHC RDW Plt Count Lymph % (Auto) Bee % (Auto) Bee # Seg Neutrophils % Seg Neuts % (Manual) Lymphocytes % (Manual) Basophils % (Manual) Seg Neutrophils # Seg Neutrophils # Man Lymphocytes # (Manual) Basophils # (Manual) POC ABG pH POC ABG pCO2 POC ABG pO2 Sodium Potassium Chloride Carbon Dioxide BUN Creatinine Glucose POC Glucose 300 H 254 H 170 H Hemoglobin A1c Calcium Phosphorus Magnesium AST Alkaline Phosphatase Total Protein Albumin Urine Creatinine Urine Total Protein 05/31/17 05/31/17 05/31/17 14:09 14:17 14:27 WBC RBC Hgb Hct MCH MCHC RDW Plt Count Lymph % (Auto) Bee % (Auto) Bee # Seg Neutrophils % Seg Neuts % (Manual) Lymphocytes % (Manual) Basophils % (Manual) Seg Neutrophils # Seg Neutrophils # Man Lymphocytes # (Manual) Basophils # (Manual) POC ABG pH POC ABG pCO2 POC ABG pO2 Sodium Potassium 3.4 L Chloride 107.1 H Carbon Dioxide BUN 30 H Creatinine 2.6 H Glucose 38 L* POC Glucose < 40 L 189 H Hemoglobin A1c Calcium 7.6 L Phosphorus Magnesium AST Alkaline Phosphatase Total Protein Albumin Urine Creatinine Urine Total Protein 05/31/17 05/31/17 05/31/17 15:01 16:01 17:19 WBC RBC Hgb Hct MCH MCHC RDW Plt Count Lymph % (Auto) Bee % (Auto) Bee # Seg Neutrophils % Seg Neuts % (Manual) Lymphocytes % (Manual) Basophils % (Manual) Seg Neutrophils # Seg Neutrophils # Man Lymphocytes # (Manual) Basophils # (Manual) POC ABG pH POC ABG pCO2 POC ABG pO2 Sodium Potassium Chloride Carbon Dioxide BUN Creatinine Glucose POC Glucose 130 H 165 H 131 H Hemoglobin A1c Calcium Phosphorus Magnesium AST Alkaline Phosphatase Total Protein Albumin Urine Creatinine Urine Total Protein 05/31/17 05/31/17 05/31/17 18:46 19:54 20:36 WBC RBC Hgb Hct MCH MCHC RDW Plt Count Lymph % (Auto) Bee % (Auto) Bee # Seg Neutrophils % Seg Neuts % (Manual) Lymphocytes % (Manual) Basophils % (Manual) Seg Neutrophils # Seg Neutrophils # Man Lymphocytes # (Manual) Basophils # (Manual) POC ABG pH POC ABG pCO2 POC ABG pO2 Sodium Potassium Chloride Carbon Dioxide BUN 29 H Creatinine 2.4 H Glucose 124 H POC Glucose 128 H 157 H Hemoglobin A1c Calcium 7.9 L Phosphorus Magnesium AST Alkaline Phosphatase Total Protein Albumin Urine Creatinine Urine Total Protein 05/31/17 06/01/17 06/01/17 21:41 03:22 04:06 WBC RBC Hgb Hct MCH MCHC RDW Plt Count Lymph % (Auto) Bee % (Auto) Bee # Seg Neutrophils % Seg Neuts % (Manual) Lymphocytes % (Manual) Basophils % (Manual) Seg Neutrophils # Seg Neutrophils # Man Lymphocytes # (Manual) Basophils # (Manual) POC ABG pH POC ABG pCO2 POC ABG pO2 Sodium Potassium Chloride Carbon Dioxide 19 L BUN 29 H Creatinine 2.6 H Glucose 205 H POC Glucose 158 H 251 H Hemoglobin A1c Calcium 7.8 L Phosphorus Magnesium AST Alkaline Phosphatase Total Protein Albumin Urine Creatinine Urine Total Protein 06/01/17 06/01/17 06/01/17 04:30 09:15 09:59 WBC 19.7 H RBC Hgb 10.0 L Hct MCH 27 L MCHC RDW 17.1 H Plt Count Lymph % (Auto) Bee % (Auto) Bee # Seg Neutrophils % Seg Neuts % (Manual) Lymphocytes % (Manual) Basophils % (Manual) Seg Neutrophils # Seg Neutrophils # Man Lymphocytes # (Manual) Basophils # (Manual) POC ABG pH 7.464 H POC ABG pCO2 31.3 L POC ABG pO2 Sodium Potassium Chloride Carbon Dioxide BUN Creatinine Glucose POC Glucose 330 H Hemoglobin A1c Calcium Phosphorus Magnesium AST Alkaline Phosphatase Total Protein Albumin Urine Creatinine Urine Total Protein 06/01/17 06/01/17 06/01/17 11:36 12:25 13:43 WBC RBC Hgb Hct MCH MCHC RDW Plt Count Lymph % (Auto) Bee % (Auto) Bee # Seg Neutrophils % Seg Neuts % (Manual) Lymphocytes % (Manual) Basophils % (Manual) Seg Neutrophils # Seg Neutrophils # Man Lymphocytes # (Manual) Basophils # (Manual) POC ABG pH POC ABG pCO2 POC ABG pO2 Sodium Potassium Chloride Carbon Dioxide BUN Creatinine Glucose POC Glucose 431 H 434 H 445 H Hemoglobin A1c Calcium Phosphorus Magnesium AST Alkaline Phosphatase Total Protein Albumin Urine Creatinine Urine Total Protein 06/01/17 06/01/17 06/01/17 14:26 15:46 16:03 WBC RBC Hgb Hct MCH MCHC RDW Plt Count Lymph % (Auto) Bee % (Auto) Bee # Seg Neutrophils % Seg Neuts % (Manual) Lymphocytes % (Manual) Basophils % (Manual) Seg Neutrophils # Seg Neutrophils # Man Lymphocytes # (Manual) Basophils # (Manual) POC ABG pH POC ABG pCO2 POC ABG pO2 Sodium Potassium Chloride Carbon Dioxide BUN Creatinine Glucose POC Glucose 310 H 292 H 244 H Hemoglobin A1c Calcium Phosphorus Magnesium AST Alkaline Phosphatase Total Protein Albumin Urine Creatinine Urine Total Protein 06/01/17 06/01/17 06/01/17 16:59 17:49 19:05 WBC RBC Hgb Hct MCH MCHC RDW Plt Count Lymph % (Auto) Bee % (Auto) Bee # Seg Neutrophils % Seg Neuts % (Manual) Lymphocytes % (Manual) Basophils % (Manual) Seg Neutrophils # Seg Neutrophils # Man Lymphocytes # (Manual) Basophils # (Manual) POC ABG pH POC ABG pCO2 POC ABG pO2 Sodium Potassium Chloride Carbon Dioxide BUN Creatinine Glucose POC Glucose 260 H 203 H 156 H Hemoglobin A1c Calcium Phosphorus Magnesium AST Alkaline Phosphatase Total Protein Albumin Urine Creatinine Urine Total Protein 06/02/17 06/02/17 06/02/17 00:09 01:06 02:31 WBC RBC Hgb Hct MCH MCHC RDW Plt Count Lymph % (Auto) Bee % (Auto) Bee # Seg Neutrophils % Seg Neuts % (Manual) Lymphocytes % (Manual) Basophils % (Manual) Seg Neutrophils # Seg Neutrophils # Man Lymphocytes # (Manual) Basophils # (Manual) POC ABG pH POC ABG pCO2 POC ABG pO2 Sodium Potassium Chloride Carbon Dioxide BUN Creatinine Glucose POC Glucose 137 H 146 H 182 H Hemoglobin A1c Calcium Phosphorus Magnesium AST Alkaline Phosphatase Total Protein Albumin Urine Creatinine Urine Total Protein 06/02/17 06/02/17 06/02/17 04:03 04:24 04:24 WBC 21.0 H RBC 3.62 L Hgb Hct 29.6 L MCH MCHC RDW 16.5 H Plt Count Lymph % (Auto) Bee % (Auto) Bee # Seg Neutrophils % Seg Neuts % (Manual) 98.0 H Lymphocytes % (Manual) 1.0 L Basophils % (Manual) Seg Neutrophils # Seg Neutrophils # Man 20.6 H Lymphocytes # (Manual) 0.2 L Basophils # (Manual) POC ABG pH POC ABG pCO2 POC ABG pO2 Sodium Potassium Chloride Carbon Dioxide 20 L BUN 36 H Creatinine 2.8 H Glucose 137 H POC Glucose 150 H Hemoglobin A1c Calcium 7.5 L Phosphorus 4.60 H Magnesium 1.50 L AST Alkaline Phosphatase 132 H Total Protein 4.1 L Albumin 1.7 L Urine Creatinine Urine Total Protein 06/02/17 06/02/17 06/02/17 05:01 05:14 06:20 WBC RBC Hgb Hct MCH MCHC RDW Plt Count Lymph % (Auto) Bee % (Auto) Bee # Seg Neutrophils % Seg Neuts % (Manual) Lymphocytes % (Manual) Basophils % (Manual) Seg Neutrophils # Seg Neutrophils # Man Lymphocytes # (Manual) Basophils # (Manual) POC ABG pH 7.517 H POC ABG pCO2 28.4 L POC ABG pO2 67 L Sodium Potassium Chloride Carbon Dioxide BUN Creatinine Glucose POC Glucose 137 H 163 H Hemoglobin A1c Calcium Phosphorus Magnesium AST Alkaline Phosphatase Total Protein Albumin Urine Creatinine Urine Total Protein 06/02/17 06/02/17 06/02/17 07:43 09:40 10:18 WBC RBC Hgb Hct MCH MCHC RDW Plt Count Lymph % (Auto) Bee % (Auto) Bee # Seg Neutrophils % Seg Neuts % (Manual) Lymphocytes % (Manual) Basophils % (Manual) Seg Neutrophils # Seg Neutrophils # Man Lymphocytes # (Manual) Basophils # (Manual) POC ABG pH POC ABG pCO2 POC ABG pO2 Sodium Potassium Chloride Carbon Dioxide BUN Creatinine Glucose POC Glucose 135 H 196 H Hemoglobin A1c Calcium Phosphorus Magnesium AST Alkaline Phosphatase Total Protein Albumin Urine Creatinine Urine Total Protein < 4 L 06/02/17 06/02/17 06/02/17 10:33 11:55 17:39 WBC RBC Hgb Hct MCH MCHC RDW Plt Count Lymph % (Auto) Bee % (Auto) Bee # Seg Neutrophils % Seg Neuts % (Manual) Lymphocytes % (Manual) Basophils % (Manual) Seg Neutrophils # Seg Neutrophils # Man Lymphocytes # (Manual) Basophils # (Manual) POC ABG pH POC ABG pCO2 POC ABG pO2 Sodium Potassium Chloride Carbon Dioxide BUN Creatinine Glucose POC Glucose 188 H 110 H 150 H Hemoglobin A1c Calcium Phosphorus Magnesium AST Alkaline Phosphatase Total Protein Albumin Urine Creatinine Urine Total Protein 06/02/17 06/02/17 06/03/17 18:12 21:32 02:02 WBC RBC Hgb Hct MCH MCHC RDW Plt Count Lymph % (Auto) Bee % (Auto) Bee # Seg Neutrophils % Seg Neuts % (Manual) Lymphocytes % (Manual) Basophils % (Manual) Seg Neutrophils # Seg Neutrophils # Man Lymphocytes # (Manual) Basophils # (Manual) POC ABG pH POC ABG pCO2 POC ABG pO2 Sodium Potassium Chloride Carbon Dioxide BUN Creatinine Glucose POC Glucose 131 H 143 H 191 H Hemoglobin A1c Calcium Phosphorus Magnesium AST Alkaline Phosphatase Total Protein Albumin Urine Creatinine Urine Total Protein 06/03/17 06/03/17 06/03/17 04:14 04:14 05:06 WBC 21.1 H RBC Hgb Hct MCH 27 L MCHC RDW 15.9 H Plt Count 447 H Lymph % (Auto) Bee % (Auto) Bee # Seg Neutrophils % Seg Neuts % (Manual) 94.0 H Lymphocytes % (Manual) 3.0 L Basophils % (Manual) Seg Neutrophils # Seg Neutrophils # Man 19.8 H Lymphocytes # (Manual) 0.6 L Basophils # (Manual) POC ABG pH POC ABG pCO2 28.6 L POC ABG pO2 112 H Sodium Potassium Chloride Carbon Dioxide 14 L BUN 45 H Creatinine 2.8 H Glucose 211 H POC Glucose Hemoglobin A1c Calcium 8.0 L Phosphorus Magnesium AST Alkaline Phosphatase Total Protein Albumin Urine Creatinine Urine Total Protein 06/03/17 06/03/17 06/03/17 06:00 10:20 13:43 WBC RBC Hgb Hct MCH MCHC RDW Plt Count Lymph % (Auto) Bee % (Auto) Bee # Seg Neutrophils % Seg Neuts % (Manual) Lymphocytes % (Manual) Basophils % (Manual) Seg Neutrophils # Seg Neutrophils # Man Lymphocytes # (Manual) Basophils # (Manual) POC ABG pH POC ABG pCO2 POC ABG pO2 Sodium Potassium Chloride Carbon Dioxide BUN Creatinine Glucose POC Glucose 224 H 226 H 296 H Hemoglobin A1c Calcium Phosphorus Magnesium AST Alkaline Phosphatase Total Protein Albumin Urine Creatinine Urine Total Protein 06/03/17 06/03/17 06/03/17 17:38 19:23 20:45 WBC RBC Hgb Hct MCH MCHC RDW Plt Count Lymph % (Auto) Bee % (Auto) Bee # Seg Neutrophils % Seg Neuts % (Manual) Lymphocytes % (Manual) Basophils % (Manual) Seg Neutrophils # Seg Neutrophils # Man Lymphocytes # (Manual) Basophils # (Manual) POC ABG pH POC ABG pCO2 POC ABG pO2 Sodium Potassium Chloride Carbon Dioxide BUN Creatinine Glucose POC Glucose 295 H 275 H 338 H Hemoglobin A1c Calcium Phosphorus Magnesium AST Alkaline Phosphatase Total Protein Albumin Urine Creatinine Urine Total Protein 06/03/17 06/03/17 06/04/17 21:50 23:08 00:16 WBC RBC Hgb Hct MCH MCHC RDW Plt Count Lymph % (Auto) Bee % (Auto) Bee # Seg Neutrophils % Seg Neuts % (Manual) Lymphocytes % (Manual) Basophils % (Manual) Seg Neutrophils # Seg Neutrophils # Man Lymphocytes # (Manual) Basophils # (Manual) POC ABG pH POC ABG pCO2 POC ABG pO2 Sodium Potassium Chloride Carbon Dioxide BUN Creatinine Glucose POC Glucose 223 H 214 H 226 H Hemoglobin A1c Calcium Phosphorus Magnesium AST Alkaline Phosphatase Total Protein Albumin Urine Creatinine Urine Total Protein 06/04/17 06/04/17 06/04/17 01:05 02:07 03:27 WBC RBC Hgb Hct MCH MCHC RDW Plt Count Lymph % (Auto) Bee % (Auto) Bee # Seg Neutrophils % Seg Neuts % (Manual) Lymphocytes % (Manual) Basophils % (Manual) Seg Neutrophils # Seg Neutrophils # Man Lymphocytes # (Manual) Basophils # (Manual) POC ABG pH POC ABG pCO2 POC ABG pO2 Sodium Potassium Chloride Carbon Dioxide BUN Creatinine Glucose POC Glucose 217 H 229 H 185 H Hemoglobin A1c Calcium Phosphorus Magnesium AST Alkaline Phosphatase Total Protein Albumin Urine Creatinine Urine Total Protein 06/04/17 06/04/17 06/04/17 03:52 04:05 04:05 WBC 19.6 H RBC Hgb Hct MCH 26 L MCHC RDW 15.6 H Plt Count 564 H Lymph % (Auto) 7.3 L Bee % (Auto) 10.8 H Bee # 2.1 H Seg Neutrophils % 81.4 H Seg Neuts % (Manual) Lymphocytes % (Manual) Basophils % (Manual) Seg Neutrophils # 15.9 H Seg Neutrophils # Man Lymphocytes # (Manual) Basophils # (Manual) POC ABG pH POC ABG pCO2 POC ABG pO2 Sodium Potassium Chloride Carbon Dioxide 17 L BUN 52 H Creatinine 2.5 H Glucose 163 H POC Glucose 181 H Hemoglobin A1c Calcium 7.9 L Phosphorus Magnesium AST Alkaline Phosphatase Total Protein Albumin Urine Creatinine Urine Total Protein 06/04/17 06/04/17 06/04/17 04:56 05:39 06:12 WBC RBC Hgb Hct MCH MCHC RDW Plt Count Lymph % (Auto) Bee % (Auto) Bee # Seg Neutrophils % Seg Neuts % (Manual) Lymphocytes % (Manual) Basophils % (Manual) Seg Neutrophils # Seg Neutrophils # Man Lymphocytes # (Manual) Basophils # (Manual) POC ABG pH 7.486 H POC ABG pCO2 26.8 L POC ABG pO2 Sodium Potassium Chloride Carbon Dioxide BUN Creatinine Glucose POC Glucose 208 H 225 H Hemoglobin A1c Calcium Phosphorus Magnesium AST Alkaline Phosphatase Total Protein Albumin Urine Creatinine Urine Total Protein 06/04/17 06/04/17 06/04/17 07:07 08:06 09:15 WBC RBC Hgb Hct MCH MCHC RDW Plt Count Lymph % (Auto) Bee % (Auto) Bee # Seg Neutrophils % Seg Neuts % (Manual) Lymphocytes % (Manual) Basophils % (Manual) Seg Neutrophils # Seg Neutrophils # Man Lymphocytes # (Manual) Basophils # (Manual) POC ABG pH POC ABG pCO2 POC ABG pO2 Sodium Potassium Chloride Carbon Dioxide BUN Creatinine Glucose POC Glucose 201 H 171 H 178 H Hemoglobin A1c Calcium Phosphorus Magnesium AST Alkaline Phosphatase Total Protein Albumin Urine Creatinine Urine Total Protein 06/04/17 06/04/17 06/04/17 10:16 12:22 17:21 WBC RBC Hgb Hct MCH MCHC RDW Plt Count Lymph % (Auto) Bee % (Auto) Bee # Seg Neutrophils % Seg Neuts % (Manual) Lymphocytes % (Manual) Basophils % (Manual) Seg Neutrophils # Seg Neutrophils # Man Lymphocytes # (Manual) Basophils # (Manual) POC ABG pH POC ABG pCO2 POC ABG pO2 Sodium Potassium Chloride Carbon Dioxide BUN Creatinine Glucose POC Glucose 191 H 188 H Hemoglobin A1c Calcium Phosphorus Magnesium AST Alkaline Phosphatase Total Protein Albumin Urine Creatinine 78.7 H Urine Total Protein 197 H 06/04/17 06/04/17 06/05/17 17:56 22:10 00:00 WBC RBC Hgb Hct MCH MCHC RDW Plt Count Lymph % (Auto) Bee % (Auto) Bee # Seg Neutrophils % Seg Neuts % (Manual) Lymphocytes % (Manual) Basophils % (Manual) Seg Neutrophils # Seg Neutrophils # Man Lymphocytes # (Manual) Basophils # (Manual) POC ABG pH POC ABG pCO2 POC ABG pO2 Sodium Potassium Chloride Carbon Dioxide 17 L BUN 55 H Creatinine 2.3 H Glucose 300 H POC Glucose 266 H 337 H Hemoglobin A1c Calcium 7.4 L Phosphorus Magnesium AST Alkaline Phosphatase Total Protein Albumin Urine Creatinine Urine Total Protein 06/05/17 06/05/17 06/05/17 03:26 04:11 05:13 WBC RBC Hgb Hct MCH MCHC RDW Plt Count Lymph % (Auto) Bee % (Auto) Bee # Seg Neutrophils % Seg Neuts % (Manual) Lymphocytes % (Manual) Basophils % (Manual) Seg Neutrophils # Seg Neutrophils # Man Lymphocytes # (Manual) Basophils # (Manual) POC ABG pH 7.586 H POC ABG pCO2 22.6 L POC ABG pO2 179 H Sodium Potassium Chloride Carbon Dioxide 19 L BUN 55 H Creatinine 2.2 H Glucose 226 H POC Glucose 220 H Hemoglobin A1c Calcium 7.7 L Phosphorus Magnesium AST Alkaline Phosphatase Total Protein Albumin Urine Creatinine Urine Total Protein 06/05/17 06/05/17 06/05/17 12:42 18:24 21:23 WBC RBC Hgb Hct MCH MCHC RDW Plt Count Lymph % (Auto) Bee % (Auto) Bee # Seg Neutrophils % Seg Neuts % (Manual) Lymphocytes % (Manual) Basophils % (Manual) Seg Neutrophils # Seg Neutrophils # Man Lymphocytes # (Manual) Basophils # (Manual) POC ABG pH POC ABG pCO2 POC ABG pO2 Sodium Potassium Chloride Carbon Dioxide BUN Creatinine Glucose POC Glucose 168 H 121 H 166 H Hemoglobin A1c Calcium Phosphorus Magnesium AST Alkaline Phosphatase Total Protein Albumin Urine Creatinine Urine Total Protein 06/06/17 06/06/17 06/06/17 00:14 04:11 06:19 WBC RBC Hgb Hct MCH MCHC RDW Plt Count Lymph % (Auto) Bee % (Auto) Bee # Seg Neutrophils % Seg Neuts % (Manual) Lymphocytes % (Manual) Basophils % (Manual) Seg Neutrophils # Seg Neutrophils # Man Lymphocytes # (Manual) Basophils # (Manual) POC ABG pH POC ABG pCO2 33.0 L POC ABG pO2 Sodium Potassium Chloride Carbon Dioxide BUN Creatinine Glucose POC Glucose 179 H 180 H Hemoglobin A1c Calcium Phosphorus Magnesium AST Alkaline Phosphatase Total Protein Albumin Urine Creatinine Urine Total Protein 06/06/17 06/06/17 06/06/17 12:19 18:38 20:01 WBC RBC Hgb Hct MCH MCHC RDW Plt Count Lymph % (Auto) Bee % (Auto) Bee # Seg Neutrophils % Seg Neuts % (Manual) Lymphocytes % (Manual) Basophils % (Manual) Seg Neutrophils # Seg Neutrophils # Man Lymphocytes # (Manual) Basophils # (Manual) POC ABG pH POC ABG pCO2 POC ABG pO2 Sodium Potassium Chloride Carbon Dioxide BUN Creatinine Glucose POC Glucose 123 H 56 L 65 L Hemoglobin A1c Calcium Phosphorus Magnesium AST Alkaline Phosphatase Total Protein Albumin Urine Creatinine Urine Total Protein 06/06/17 06/07/17 06/07/17 23:51 04:25 05:29 WBC RBC Hgb Hct MCH MCHC RDW Plt Count Lymph % (Auto) Bee % (Auto) Bee # Seg Neutrophils % Seg Neuts % (Manual) Lymphocytes % (Manual) Basophils % (Manual) Seg Neutrophils # Seg Neutrophils # Man Lymphocytes # (Manual) Basophils # (Manual) POC ABG pH 7.470 H POC ABG pCO2 33.6 L POC ABG pO2 Sodium Potassium Chloride Carbon Dioxide BUN Creatinine Glucose POC Glucose 118 H 183 H Hemoglobin A1c Calcium Phosphorus Magnesium AST Alkaline Phosphatase Total Protein Albumin Urine Creatinine Urine Total Protein 06/07/17 06/07/17 06/07/17 07:51 12:00 18:08 WBC RBC Hgb Hct MCH MCHC RDW Plt Count Lymph % (Auto) Bee % (Auto) Bee # Seg Neutrophils % Seg Neuts % (Manual) Lymphocytes % (Manual) Basophils % (Manual) Seg Neutrophils # Seg Neutrophils # Man Lymphocytes # (Manual) Basophils # (Manual) POC ABG pH POC ABG pCO2 POC ABG pO2 Sodium 135 L Potassium Chloride Carbon Dioxide 21 L BUN 50 H Creatinine 1.8 H Glucose 232 H POC Glucose 361 H 249 H Hemoglobin A1c Calcium 8.0 L Phosphorus Magnesium AST Alkaline Phosphatase Total Protein Albumin Urine Creatinine Urine Total Protein 06/07/17 06/08/17 06/08/17 23:53 05:25 11:50 WBC RBC Hgb Hct MCH MCHC RDW Plt Count Lymph % (Auto) Bee % (Auto) Bee # Seg Neutrophils % Seg Neuts % (Manual) Lymphocytes % (Manual) Basophils % (Manual) Seg Neutrophils # Seg Neutrophils # Man Lymphocytes # (Manual) Basophils # (Manual) POC ABG pH POC ABG pCO2 POC ABG pO2 Sodium Potassium Chloride Carbon Dioxide BUN Creatinine Glucose POC Glucose 190 H 136 H 166 H Hemoglobin A1c Calcium Phosphorus Magnesium AST Alkaline Phosphatase Total Protein Albumin Urine Creatinine Urine Total Protein 06/08/17 06/08/17 06/08/17 14:20 14:20 19:05 WBC 15.7 H RBC 3.49 L Hgb 9.4 L Hct 27.9 L MCH 27 L MCHC RDW 15.3 H Plt Count 590 H Lymph % (Auto) Bee % (Auto) Bee # Seg Neutrophils % Seg Neuts % (Manual) Lymphocytes % (Manual) Basophils % (Manual) Seg Neutrophils # Seg Neutrophils # Man Lymphocytes # (Manual) Basophils # (Manual) POC ABG pH POC ABG pCO2 POC ABG pO2 Sodium Potassium Chloride Carbon Dioxide BUN 55 H Creatinine 1.7 H Glucose 117 H POC Glucose 135 H Hemoglobin A1c Calcium Phosphorus Magnesium AST Alkaline Phosphatase Total Protein Albumin Urine Creatinine Urine Total Protein 06/08/17 06/08/17 06/09/17 21:52 23:55 04:18 WBC RBC Hgb Hct MCH MCHC RDW Plt Count Lymph % (Auto) Bee % (Auto) Bee # Seg Neutrophils % Seg Neuts % (Manual) Lymphocytes % (Manual) Basophils % (Manual) Seg Neutrophils # Seg Neutrophils # Man Lymphocytes # (Manual) Basophils # (Manual) POC ABG pH POC ABG pCO2 POC ABG pO2 Sodium Potassium Chloride Carbon Dioxide BUN 51 H Creatinine 1.6 H Glucose POC Glucose 186 H 209 H Hemoglobin A1c Calcium Phosphorus Magnesium AST Alkaline Phosphatase Total Protein Albumin Urine Creatinine Urine Total Protein 06/09/17 06/09/17 06/09/17 09:56 12:42 18:09 WBC RBC Hgb Hct MCH MCHC RDW Plt Count Lymph % (Auto) Bee % (Auto) Bee # Seg Neutrophils % Seg Neuts % (Manual) Lymphocytes % (Manual) Basophils % (Manual) Seg Neutrophils # Seg Neutrophils # Man Lymphocytes # (Manual) Basophils # (Manual) POC ABG pH POC ABG pCO2 POC ABG pO2 Sodium Potassium Chloride Carbon Dioxide BUN Creatinine Glucose POC Glucose 63 L 142 H 166 H Hemoglobin A1c Calcium Phosphorus Magnesium AST Alkaline Phosphatase Total Protein Albumin Urine Creatinine Urine Total Protein 06/09/17 06/10/17 06/10/17 23:39 03:24 04:28 WBC 15.1 H RBC 2.99 L Hgb 8.1 L Hct 23.6 L MCH 27 L MCHC 35 H RDW 15.4 H Plt Count 500 H Lymph % (Auto) Bee % (Auto) Bee # Seg Neutrophils % Seg Neuts % (Manual) Lymphocytes % (Manual) Basophils % (Manual) Seg Neutrophils # Seg Neutrophils # Man Lymphocytes # (Manual) Basophils # (Manual) POC ABG pH 7.461 H POC ABG pCO2 POC ABG pO2 131 H Sodium Potassium Chloride Carbon Dioxide BUN Creatinine Glucose POC Glucose 284 H Hemoglobin A1c Calcium Phosphorus Magnesium AST Alkaline Phosphatase Total Protein Albumin Urine Creatinine Urine Total Protein 06/10/17 06/10/17 06/10/17 04:28 05:10 12:41 WBC RBC Hgb Hct MCH MCHC RDW Plt Count Lymph % (Auto) Bee % (Auto) Bee # Seg Neutrophils % Seg Neuts % (Manual) Lymphocytes % (Manual) Basophils % (Manual) Seg Neutrophils # Seg Neutrophils # Man Lymphocytes # (Manual) Basophils # (Manual) POC ABG pH POC ABG pCO2 POC ABG pO2 Sodium Potassium Chloride Carbon Dioxide BUN 53 H Creatinine 1.8 H Glucose 185 H POC Glucose 190 H 50 L Hemoglobin A1c Calcium Phosphorus Magnesium AST Alkaline Phosphatase Total Protein Albumin Urine Creatinine Urine Total Protein 06/10/17 06/10/17 06/11/17 14:35 18:31 00:09 WBC RBC Hgb Hct MCH MCHC RDW Plt Count Lymph % (Auto) Bee % (Auto) Bee # Seg Neutrophils % Seg Neuts % (Manual) Lymphocytes % (Manual) Basophils % (Manual) Seg Neutrophils # Seg Neutrophils # Man Lymphocytes # (Manual) Basophils # (Manual) POC ABG pH POC ABG pCO2 POC ABG pO2 Sodium Potassium Chloride Carbon Dioxide BUN Creatinine Glucose POC Glucose 58 L 55 L 126 H Hemoglobin A1c Calcium Phosphorus Magnesium AST Alkaline Phosphatase Total Protein Albumin Urine Creatinine Urine Total Protein 06/11/17 06/11/17 06/11/17 05:32 06:01 06:03 WBC 15.6 H RBC 3.03 L Hgb 8.3 L Hct 24.0 L MCH MCHC 35 H RDW Plt Count 492 H Lymph % (Auto) Bee % (Auto) Bee # Seg Neutrophils % Seg Neuts % (Manual) Lymphocytes % (Manual) Basophils % (Manual) Seg Neutrophils # Seg Neutrophils # Man Lymphocytes # (Manual) Basophils # (Manual) POC ABG pH POC ABG pCO2 POC ABG pO2 Sodium Potassium Chloride Carbon Dioxide BUN 55 H Creatinine 1.8 H Glucose 228 H POC Glucose 219 H Hemoglobin A1c Calcium Phosphorus Magnesium AST Alkaline Phosphatase Total Protein Albumin Urine Creatinine Urine Total Protein 06/11/17 06/11/17 06/12/17 11:53 18:31 04:24 WBC 17.4 H RBC 2.90 L Hgb 8.0 L Hct 23.0 L MCH MCHC 35 H RDW Plt Count 460 H Lymph % (Auto) Bee % (Auto) Bee # Seg Neutrophils % Seg Neuts % (Manual) Lymphocytes % (Manual) Basophils % (Manual) Seg Neutrophils # Seg Neutrophils # Man Lymphocytes # (Manual) Basophils # (Manual) POC ABG pH POC ABG pCO2 POC ABG pO2 Sodium Potassium Chloride Carbon Dioxide BUN Creatinine Glucose POC Glucose 220 H 254 H Hemoglobin A1c Calcium Phosphorus Magnesium AST Alkaline Phosphatase Total Protein Albumin Urine Creatinine Urine Total Protein 06/12/17 06/12/17 06/12/17 05:37 05:40 06:00 WBC RBC Hgb Hct MCH MCHC RDW Plt Count Lymph % (Auto) Bee % (Auto) Bee # Seg Neutrophils % Seg Neuts % (Manual) Lymphocytes % (Manual) Basophils % (Manual) Seg Neutrophils # Seg Neutrophils # Man Lymphocytes # (Manual) Basophils # (Manual) POC ABG pH POC ABG pCO2 POC ABG pO2 Sodium Potassium Chloride Carbon Dioxide BUN Creatinine Glucose 41 L POC Glucose < 40 L < 40 L Hemoglobin A1c Calcium Phosphorus Magnesium AST Alkaline Phosphatase Total Protein Albumin Urine Creatinine Urine Total Protein 06/12/17 06/12/17 06/12/17 07:09 07:51 10:06 WBC RBC Hgb Hct MCH MCHC RDW Plt Count Lymph % (Auto) Bee % (Auto) Bee # Seg Neutrophils % Seg Neuts % (Manual) Lymphocytes % (Manual) Basophils % (Manual) Seg Neutrophils # Seg Neutrophils # Man Lymphocytes # (Manual) Basophils # (Manual) POC ABG pH POC ABG pCO2 POC ABG pO2 Sodium Potassium Chloride Carbon Dioxide BUN Creatinine Glucose POC Glucose 64 L 42 L 61 L Hemoglobin A1c Calcium Phosphorus Magnesium AST Alkaline Phosphatase Total Protein Albumin Urine Creatinine Urine Total Protein 06/12/17 06/12/17 06/12/17 11:16 14:04 18:03 WBC RBC Hgb Hct MCH MCHC RDW Plt Count Lymph % (Auto) Bee % (Auto) Bee # Seg Neutrophils % Seg Neuts % (Manual) Lymphocytes % (Manual) Basophils % (Manual) Seg Neutrophils # Seg Neutrophils # Man Lymphocytes # (Manual) Basophils # (Manual) POC ABG pH POC ABG pCO2 POC ABG pO2 Sodium Potassium Chloride Carbon Dioxide BUN Creatinine Glucose POC Glucose 67 L 112 H 116 H Hemoglobin A1c Calcium Phosphorus Magnesium AST Alkaline Phosphatase Total Protein Albumin Urine Creatinine Urine Total Protein 06/12/17 06/12/17 06/12/17 19:30 20:34 21:01 WBC RBC Hgb Hct MCH MCHC RDW Plt Count Lymph % (Auto) Bee % (Auto) Bee # Seg Neutrophils % Seg Neuts % (Manual) Lymphocytes % (Manual) Basophils % (Manual) Seg Neutrophils # Seg Neutrophils # Man Lymphocytes # (Manual) Basophils # (Manual) POC ABG pH POC ABG pCO2 POC ABG pO2 Sodium Potassium Chloride Carbon Dioxide BUN Creatinine Glucose POC Glucose 156 H 172 H 174 H Hemoglobin A1c Calcium Phosphorus Magnesium AST Alkaline Phosphatase Total Protein Albumin Urine Creatinine Urine Total Protein 06/12/17 06/12/17 06/13/17 22:00 23:23 00:27 WBC RBC Hgb Hct MCH MCHC RDW Plt Count Lymph % (Auto) Bee % (Auto) Bee # Seg Neutrophils % Seg Neuts % (Manual) Lymphocytes % (Manual) Basophils % (Manual) Seg Neutrophils # Seg Neutrophils # Man Lymphocytes # (Manual) Basophils # (Manual) POC ABG pH POC ABG pCO2 POC ABG pO2 Sodium Potassium Chloride Carbon Dioxide BUN Creatinine Glucose POC Glucose 240 H 286 H 182 H Hemoglobin A1c Calcium Phosphorus Magnesium AST Alkaline Phosphatase Total Protein Albumin Urine Creatinine Urine Total Protein 06/13/17 06/13/17 06/13/17 01:28 02:10 03:15 WBC RBC Hgb Hct MCH MCHC RDW Plt Count Lymph % (Auto) Bee % (Auto) Bee # Seg Neutrophils % Seg Neuts % (Manual) Lymphocytes % (Manual) Basophils % (Manual) Seg Neutrophils # Seg Neutrophils # Man Lymphocytes # (Manual) Basophils # (Manual) POC ABG pH POC ABG pCO2 POC ABG pO2 Sodium Potassium Chloride Carbon Dioxide BUN Creatinine Glucose POC Glucose 304 H 277 H 318 H Hemoglobin A1c Calcium Phosphorus Magnesium AST Alkaline Phosphatase Total Protein Albumin Urine Creatinine Urine Total Protein 06/13/17 06/13/17 06/13/17 04:15 05:10 05:38 WBC RBC Hgb Hct MCH MCHC RDW Plt Count Lymph % (Auto) Bee % (Auto) Bee # Seg Neutrophils % Seg Neuts % (Manual) Lymphocytes % (Manual) Basophils % (Manual) Seg Neutrophils # Seg Neutrophils # Man Lymphocytes # (Manual) Basophils # (Manual) POC ABG pH POC ABG pCO2 POC ABG pO2 Sodium Potassium Chloride Carbon Dioxide BUN Creatinine Glucose POC Glucose 294 H 275 H 315 H Hemoglobin A1c Calcium Phosphorus Magnesium AST Alkaline Phosphatase Total Protein Albumin Urine Creatinine Urine Total Protein 06/13/17 06:21 WBC RBC Hgb Hct MCH MCHC RDW Plt Count Lymph % (Auto) Bee % (Auto) Bee # Seg Neutrophils % Seg Neuts % (Manual) Lymphocytes % (Manual) Basophils % (Manual) Seg Neutrophils # Seg Neutrophils # Man Lymphocytes # (Manual) Basophils # (Manual) POC ABG pH POC ABG pCO2 POC ABG pO2 Sodium Potassium Chloride Carbon Dioxide BUN Creatinine Glucose POC Glucose 350 H Hemoglobin A1c Calcium Phosphorus Magnesium AST Alkaline Phosphatase Total Protein Albumin Urine Creatinine Urine Total Protein
--- NOTE | 2017-06-13 13:43 | Progress Note ---
Assessment and Plan - Patient Problems (1) Acute renal failure with tubular necrosis Current Visit: Yes Status: Acute Plan to address problem: Non-Oliguric Acute renal failure/acute tubular necrosis. Follow kidney function and electrolytes on diuretics. D/w family at bedside regarding renal care plan (2) Acute respiratory failure Current Visit: Yes Status: Acute Qualifiers: Respiratory failure complication: hypoxia Qualified Code(s): J96.01 - Acute respiratory failure with hypoxia Plan to address problem: Ventilator management by pulmonary/CCM (3) Hyperosmolar non-ketotic state in patient with type 2 diabetes mellitus Current Visit: Yes Status: Acute Plan to address problem: Blood sugar management by primary attending (4) Proteinuria Current Visit: Yes Status: Acute Plan to address problem: likely due to underlying diabetic nephropathy. ARAM-I contraindicated due to h/o allergy (5) Hypertension Current Visit: Yes Status: Acute Qualifiers: Hypertension type: essential hypertension Qualified Code(s): I10 - Essential (primary) hypertension Plan to address problem: Blood pressure has improved. Follow blood pressure on current medications (6) Acute systolic heart failure Current Visit: Yes Status: Acute Plan to address problem: Continue diuretics and beta jas. Continue spironolactone and monitor fluid balance. ARAM inhibitor/angiotensin receptor jas contraindicated due to her history of allergy Subjective Date of service: 06/13/17 Principal diagnosis: coma, acute kidney injury Interval history: pt s/p trach/peg, on CPAP trial, remains unresponsive Objective - Vital Signs Vital signs: Vital Signs - 12hr 06/13/17 06/13/17 06/13/17 01:50 02:00 02:07 Temperature Pulse Rate 102 H 102 H Respiratory 13 14 13 Rate Blood Pressure 121/73 O2 Sat by Pulse 100 100 100 Oximetry O2 Sat by Pulse Oximetry [ Assessment] 06/13/17 06/13/17 06/13/17 02:30 03:00 03:30 Temperature Pulse Rate 105 H 105 H 103 H Respiratory 19 15 18 Rate Blood Pressure 129/79 142/86 140/85 O2 Sat by Pulse Oximetry O2 Sat by Pulse Oximetry [ Assessment] 06/13/17 06/13/17 06/13/17 03:37 03:52 04:00 Temperature Pulse Rate 105 H 101 H Respiratory 18 Rate Blood Pressure 134/77 134/77 O2 Sat by Pulse 97 Oximetry O2 Sat by Pulse 100 Oximetry [ Assessment] 06/13/17 06/13/17 06/13/17 04:01 04:30 05:00 Temperature 98.9 F Pulse Rate 102 H 100 H Respiratory 17 13 Rate Blood Pressure 144/82 136/73 O2 Sat by Pulse 100 100 Oximetry O2 Sat by Pulse Oximetry [ Assessment] 06/13/17 06/13/17 06/13/17 05:03 05:30 05:45 Temperature Pulse Rate 100 H 104 H 103 H Respiratory 16 Rate Blood Pressure 136/73 136/83 136/82 O2 Sat by Pulse Oximetry O2 Sat by Pulse Oximetry [ Assessment] 06/13/17 06/13/17 06/13/17 05:48 06:00 06:18 Temperature Pulse Rate 102 H 102 H Respiratory 13 19 13 Rate Blood Pressure 138/84 O2 Sat by Pulse 100 100 100 Oximetry O2 Sat by Pulse Oximetry [ Assessment] 06/13/17 06/13/17 06/13/17 06:30 07:00 07:30 Temperature Pulse Rate 103 H 103 H 103 H Respiratory 15 15 17 Rate Blood Pressure 139/86 139/86 136/82 O2 Sat by Pulse 98 100 97 Oximetry O2 Sat by Pulse Oximetry [ Assessment] 06/13/17 06/13/17 06/13/17 08:00 08:10 08:22 Temperature 98 F Pulse Rate 104 H 104 H Respiratory 14 Rate Blood Pressure 129/84 129/84 O2 Sat by Pulse 100 100 100 Oximetry O2 Sat by Pulse Oximetry [ Assessment] 06/13/17 06/13/17 06/13/17 08:25 08:30 09:00 Temperature Pulse Rate 103 H 103 H 103 H Respiratory 21 26 H 33 H Rate Blood Pressure 129/84 138/90 143/88 O2 Sat by Pulse 100 100 100 Oximetry O2 Sat by Pulse Oximetry [ Assessment] 06/13/17 06/13/17 06/13/17 09:30 09:36 09:37 Temperature Pulse Rate 103 H 103 H 103 H Respiratory 19 Rate Blood Pressure 147/89 147/89 147/89 O2 Sat by Pulse 100 Oximetry O2 Sat by Pulse Oximetry [ Assessment] 06/13/17 06/13/17 06/13/17 10:00 10:30 12:43 Temperature Pulse Rate 105 H 102 H 99 H Respiratory 20 20 23 Rate Blood Pressure 140/85 139/84 143/86 O2 Sat by Pulse 100 100 100 Oximetry O2 Sat by Pulse Oximetry [ Assessment] 06/13/17 06/13/17 13:34 13:35 Temperature Pulse Rate 98 H 99 H Respiratory Rate Blood Pressure 134/86 134/86 O2 Sat by Pulse Oximetry O2 Sat by Pulse Oximetry [ Assessment] - General Appearance General appearance: well-developed, well-nourished, appears stated age EENT: ATNC, mucous membranes moist Neck: no JVD Respiratory: Present: Clear to Ascultation Cardiology: regular, S1S2 Gastrointestinal: normoactive bowel sounds Integumentary: no rash, other (b/l UE edema ) Neurologic: other (unresponsive ) - Lab 06/12/17 04:24 06/12/17 08:47 Most recent lab results Calcium 8.4 mg/dL (8.4-10.2) 06/11/17 06:03 Phosphorus 4.40 mg/dL (2.5-4.5) 06/07/17 07:51 Magnesium 1.70 mg/dL (1.7-2.3) 06/07/17 07:51 Urine Creatinine 78.7 mg/dL (0.1-20.0) H 06/04/17 17:21 Urine Sodium 10 mmol/L 06/02/17 10:18 Urine Total Protein 197 mg/dL (5-11.8) H 06/04/17 17:21
[2017-06-14] MEDS: HumaLOG SUB-Q SCH ×4 (00:12→18:06)
[2017-06-14] MEDS: ISORDIL TITRADOSE PO SCH ×3 (05:26→21:05)
[2017-06-14] MEDS: APRESOLINE PO SCH ×3 (05:27→21:04)
[2017-06-14 05:55] LABS: Calcium 8.6 mg/dL (8.4-10.2)
[2017-06-14 06:09] LABS: Hematocrit 23.2 % (30.3-42.9); Hemoglobin 7.8 gm/dl (10.1-14.3); Mean Corpuscular HGB Conc 34 % (30-34); Mean Corpuscular Hemoglobin 28 pg (28-32); Mean Corpuscular Volume 82 fl (79-97); Red Blood Count 2.81 M/mm3 (3.65-5.03); Red Cell Distribution Width 15.3 % (13.2-15.2)
[2017-06-14 06:24] LABS: Platelet Count 298 K/mm3 (140-440)
--- NOTE | 2017-06-14 08:57 | Progress Note ---
Assessment and Plan Assessment and plan: Patient had 36-year-old -[place] female was admitted to the floor for seizure episode, altered mental status, acute hypoxic respiratory failure, patient was intubated in the emergency department patient had PEA and resuscitated successfully. Acute hypoxic respiratory failure -was intubated, on mechanical ventilation>96hrs, now tracheostomy to ventilator -Had PEG and Trach, 06/11/17 Acute encephalopathy with anoxic hypoxic brain injury - treat underlying cause Seizure disorder-complex partial - Patient is on IV Keppra - Cont Namenda -Neurology following Cardiomyopathy -Cardiology following Hyperosmolar hyperglycemic syndrome in Diabetes mellitus type 2 - She was on Insulin drip, now on subcut Insulin Hypoglycemia.episodes, Now resolved after given doses of 50%Dextrose and started on 5%dextrose. Will discontinue 5%Dextrose since glucose>300 consistently Acute kidney injury. -Creatinine 1.8 Nephrology following Hypertension. BP stable on Hydralazine 50mg q 8hrs. DVT prophylaxis with Lovenox Disposition - Continue ICU care. poor prognosis POOR PROGNOSIS History Interval history: Still intubated, Unresponsive, PEG and Trach done 06/11 Hospitalist Physical - Physical exam Narrative exam: Gen appearance:Not in acute distress, lying in bed, obese HEENT: facial edema, Neck:supple, no JVD, Tracheostomy Lungs: Coarse breath sounds bilaterally, no wheeze Heart: S1 and S2 regular, no murmurs, rubs or gallop Abdomen: soft, non tender, non distended, normal bowel sounds, PEG tube present Ext: Edema both upper and lower extremities, no cyanosis,anasarca Neuro: Unresponsive - Constitutional Vitals: Temp Pulse Resp BP Pulse Ox 98.8 F 97 H 15 132/74 100 06/14/17 08:00 06/14/17 08:00 06/14/17 08:00 06/14/17 08:00 06/14/17 08:10 General appearance: Present: other (unresponsive, on the ventilator) Results - Labs CBC & Chem 7: 06/14/17 04:18 06/14/17 04:18 Labs: Laboratory Last Values WBC 29.6 K/mm3 (4.5-11.0) H 06/14/17 04:18 RBC 2.81 M/mm3 (3.65-5.03) L 06/14/17 04:18 Hgb 7.8 gm/dl (10.1-14.3) L 06/14/17 04:18 Hct 23.2 % (30.3-42.9) L 06/14/17 04:18 MCV 82 fl (79-97) 06/14/17 04:18 MCH 28 pg (28-32) 06/14/17 04:18 MCHC 34 % (30-34) 06/14/17 04:18 RDW 15.3 % (13.2-15.2) H 06/14/17 04:18 Plt Count 298 K/mm3 (140-440) 06/14/17 04:18 Lymph % (Auto) 7.3 % (13.4-35.0) L 06/04/17 04:05 Floyd % (Auto) 10.8 % (0.0-7.3) H 06/04/17 04:05 Eos % (Auto) 0.1 % (0.0-4.3) 06/04/17 04:05 Baso % (Auto) 0.4 % (0.0-1.8) 06/04/17 04:05 Lymph # 1.4 K/mm3 (1.2-5.4) 06/04/17 04:05 Floyd # 2.1 K/mm3 (0.0-0.8) H 06/04/17 04:05 Eos # 0.0 K/mm3 (0.0-0.4) 06/04/17 04:05 Baso # 0.1 K/mm3 (0.0-0.1) 06/04/17 04:05 Add Manual Diff Complete 06/03/17 04:14 Total Counted 100 06/03/17 04:14 Seg Neutrophils % 81.4 % (40.0-70.0) H 06/04/17 04:05 Seg Neuts % (Manual) 94.0 % (40.0-70.0) H 06/03/17 04:14 Band Neutrophils % 0 % 06/03/17 04:14 Lymphocytes % (Manual) 3.0 % (13.4-35.0) L 06/03/17 04:14 Reactive Lymphs % (Man) 0 % 06/03/17 04:14 Monocytes % (Manual) 3.0 % (0.0-7.3) 06/03/17 04:14 Eosinophils % (Manual) 0 % (0.0-4.3) 06/03/17 04:14 Basophils % (Manual) 0 % (0.0-1.8) 06/03/17 04:14 Metamyelocytes % 0 % 06/03/17 04:14 Myelocytes % 0 % 06/03/17 04:14 Promyelocytes % 0 % 06/03/17 04:14 Blast Cells % 0 % 06/03/17 04:14 Nucleated RBC % Not Reportable 06/03/17 04:14 Seg Neutrophils # 15.9 K/mm3 (1.8-7.7) H 06/04/17 04:05 Seg Neutrophils # Man 19.8 K/mm3 (1.8-7.7) H 06/03/17 04:14 Band Neutrophils # 0.0 K/mm3 06/03/17 04:14 Lymphocytes # (Manual) 0.6 K/mm3 (1.2-5.4) L 06/03/17 04:14 Abs React Lymphs (Man) 0.0 K/mm3 06/03/17 04:14 Monocytes # (Manual) 0.6 K/mm3 (0.0-0.8) 06/03/17 04:14 Eosinophils # (Manual) 0.0 K/mm3 (0.0-0.4) 06/03/17 04:14 Basophils # (Manual) 0.0 K/mm3 (0.0-0.1) 06/03/17 04:14 Metamyelocytes # 0.0 K/mm3 06/03/17 04:14 Myelocytes # 0.0 K/mm3 06/03/17 04:14 Promyelocytes # 0.0 K/mm3 06/03/17 04:14 Blast Cells # 0.0 K/mm3 06/03/17 04:14 WBC Morphology Not Reportable 06/03/17 04:14 Hypersegmented Neuts Not Reportable 06/03/17 04:14 Hyposegmented Neuts Not Reportable 06/03/17 04:14 Hypogranular Neuts Not Reportable 06/03/17 04:14 Smudge Cells Not Reportable 06/03/17 04:14 Toxic Granulation Not Reportable 06/03/17 04:14 Toxic Vacuolation Not Reportable 06/03/17 04:14 Dohle Bodies Not Reportable 06/03/17 04:14 Pelger-Huet Anomaly Not Reportable 06/03/17 04:14 Don Rods Not Reportable 06/03/17 04:14 Platelet Estimate Consistent w auto 06/03/17 04:14 Clumped Platelets Not Reportable 06/03/17 04:14 Plt Clumps, EDTA Not Reportable 06/03/17 04:14 Large Platelets Not Reportable 06/03/17 04:14 Giant Platelets Not Reportable 06/03/17 04:14 Platelet Satelliting Not Reportable 06/03/17 04:14 Plt Morphology Comment Not Reportable 06/03/17 04:14 RBC Morphology Not Reportable 06/03/17 04:14 Dimorphic RBCs Not Reportable 06/03/17 04:14 Polychromasia Not Reportable 06/03/17 04:14 Hypochromasia Not Reportable 06/03/17 04:14 Poikilocytosis Not Reportable 06/03/17 04:14 Anisocytosis Not Reportable 06/03/17 04:14 Microcytosis Not Reportable 06/03/17 04:14 Macrocytosis Not Reportable 06/03/17 04:14 Spherocytes Not Reportable 06/03/17 04:14 Pappenheimer Bodies Not Reportable 06/03/17 04:14 Sickle Cells Not Reportable 06/03/17 04:14 Target Cells Not Reportable 06/03/17 04:14 Tear Drop Cells Not Reportable 06/03/17 04:14 Ovalocytes Not Reportable 06/03/17 04:14 Helmet Cells Not Reportable 06/03/17 04:14 [place] Bodies Not Reportable 06/03/17 04:14 Ermine Rings Not Reportable 06/03/17 04:14 Cecy Cells Not Reportable 06/03/17 04:14 Bite Cells Not Reportable 06/03/17 04:14 Crenated Cell Not Reportable 06/03/17 04:14 Elliptocytes Not Reportable 06/03/17 04:14 Acanthocytes (Spur) Not Reportable 06/03/17 04:14 Rouleaux Not Reportable 06/03/17 04:14 Hemoglobin C Crystals Not Reportable 06/03/17 04:14 Schistocytes Not Reportable 06/03/17 04:14 Malaria parasites Not Reportable 06/03/17 04:14 Fadi Bodies Not Reportable 06/03/17 04:14 Hem Pathologist Commnt No 06/03/17 04:14 PT 12.4 Sec. (12.2-14.9) 06/09/17 04:18 INR 0.88 (0.87-1.13) 06/09/17 04:18 POC ABG pH 7.461 (7.35-7.45) H 06/10/17 03:24 POC ABG pCO2 36.6 (35-45) 06/10/17 03:24 POC ABG pO2 131 (80-105) H 06/10/17 03:24 POC ABG HCO3 26.1 06/10/17 03:24 POC ABG Total CO2 27 06/10/17 03:24 POC ABG O2 Sat 99 06/10/17 03:24 POC ABG Base Excess 2 06/10/17 03:24 VBG pH 7.327 (7.320-7.420) 05/30/17 10:43 FiO2 45 % 06/10/17 03:24 Sodium 139 mmol/L (137-145) 06/14/17 04:18 Potassium 4.6 mmol/L (3.6-5.0) 06/14/17 04:18 Chloride 100.4 mmol/L (98-107) 06/14/17 04:18 Carbon Dioxide 20 mmol/L (22-30) L 06/14/17 04:18 Anion Gap 23 mmol/L 06/14/17 04:18 BUN 75 mg/dL (7-17) H 06/14/17 04:18 Creatinine 2.2 mg/dL (0.7-1.2) H 06/14/17 04:18 Estimated GFR 31 ml/min 06/14/17 04:18 BUN/Creatinine Ratio 34 % 06/14/17 04:18 Glucose 364 mg/dL (65-100) H 06/14/17 04:18 POC Glucose 322 (70-105) H 06/14/17 08:25 Hemoglobin A1c 9.7 % (4-6) H 05/31/17 05:45 Calcium 8.6 mg/dL (8.4-10.2) 06/14/17 04:18 Phosphorus 4.40 mg/dL (2.5-4.5) 06/07/17 07:51 Magnesium 1.70 mg/dL (1.7-2.3) 06/07/17 07:51 Total Bilirubin 0.50 mg/dL (0.1-1.2) 06/02/17 04:24 AST 23 units/L (5-40) 06/02/17 04:24 ALT 14 units/L (7-56) 06/02/17 04:24 Alkaline Phosphatase 132 units/L (35-129) H 06/02/17 04:24 Total Protein 4.1 g/dL (6.3-8.2) L 06/02/17 04:24 Albumin 1.7 g/dL (3.9-5) L 06/02/17 04:24 Albumin/Globulin Ratio 0.7 % 06/02/17 04:24 Urine Color Yellow (Yellow) 05/30/17 15:04 Urine Turbidity Clear (Clear) 05/30/17 15:04 Urine pH 7.0 (5.0-7.0) 05/30/17 15:04 Ur Specific [place] 1.021 (1.003-1.030) 05/30/17 15:04 Urine Protein >500 mg/dL (Negative) 05/30/17 15:04 Urine Glucose (UA) >=500 mg/dL (Negative) 05/30/17 15:04 Urine Ketones Tr mg/dL (Negative) 05/30/17 15:04 Urine Blood Sm (Negative) 05/30/17 15:04 Urine Nitrite Neg (Negative) 05/30/17 15:04 Urine Bilirubin Neg (Negative) 05/30/17 15:04 Urine Urobilinogen < 2.0 mg/dL (<2.0) 05/30/17 15:04 Ur Leukocyte Esterase Neg (Negative) 05/30/17 15:04 Urine WBC (Auto) 2.0 /HPF (0.0-6.0) 05/30/17 15:04 Urine RBC (Auto) 5.0 /HPF (0.0-6.0) 05/30/17 15:04 Urine Bacteria (Auto) 1+ /HPF (Negative) 05/30/17 15:04 Urine Mucus Few /HPF 05/30/17 15:04 Urine Creatinine 78.7 mg/dL (0.1-20.0) H 06/04/17 17:21 Urine Sodium 10 mmol/L 06/02/17 10:18 Urine Total Protein 197 mg/dL (5-11.8) H 06/04/17 17:21 Urine Opiates Screen Presumptive negative 05/30/17 15:04 Urine Methadone Screen Presumptive negative 05/30/17 15:04 Ur Barbiturates Screen Presumptive negative 05/30/17 15:04 Levetiracetam 21.2 mcg/mL 05/30/17 08:59 Ur Phencyclidine Scrn Presumptive negative 05/30/17 15:04 Ur Amphetamines Screen Presumptive negative 05/30/17 15:04 U Benzodiazepines Scrn Presumptive negative 05/30/17 15:04 Urine Cocaine Screen Presumptive negative 05/30/17 15:04 U Marijuana (THC) Screen Presumptive positive 05/30/17 15:04 Drugs of Abuse Note Disclamer 05/30/17 15:04
--- NOTE | 2017-06-14 09:04 | Progress Note ---
Assessment and Plan Seizures Respiratory failure intubated on mechanical ventilation Hypoxic encephalopathy Acute renal failure Diabetes mellitus Dilated Cardiomyopathy EF 15-20% on echo this admission. Echo done 10/2016 at [facility] showed LVEF 35-40% with severe pulmonary hypertension. At that time, there was a plan to perform a LHC but this had to be cancelled due to severe gastroparesis and renal failure. Hypertension Recommendations: Continue medical therapy for her dilated cardiomyopathy. Conservative cardiac management. Subjective Date of service: 06/14/17 Principal diagnosis: coma, acute kidney injury Interval history: No acute events. Trach in place. on vent. Objective Vital Signs Temp Pulse Resp BP Pulse Ox Pulse Ox 06/14/17 08:10 100 06/14/17 08:00 98.8 F 97 H 15 132/74 99 06/14/17 07:30 101 H 23 134/81 99 06/14/17 07:23 100 H 20 128/73 100 06/14/17 07:20 99 H 128/73 100 06/14/17 07:00 100 H 15 128/73 99 06/14/17 06:30 101 H 18 143/80 99 06/14/17 06:00 100 H 17 138/77 99 06/14/17 05:30 99 H 17 142/82 99 06/14/17 05:27 99 H 136/74 06/14/17 05:26 99 H 136/74 06/14/17 05:00 97 H 15 136/74 99 06/14/17 04:30 97 H 17 127/65 97 06/14/17 04:02 98 H 06/14/17 04:00 95 H 14 127/65 100 06/14/17 03:49 99.4 F 06/14/17 03:30 98 H 16 150/82 99 06/14/17 03:00 97 H 15 141/78 99 100 06/14/17 02:30 97 H 19 140/79 99 06/14/17 02:05 98 H 100 06/14/17 02:00 96 H 18 136/75 99 06/14/17 01:30 96 H 17 134/72 100 06/14/17 01:00 97 H 17 133/78 99 06/14/17 00:30 96 H 18 135/83 100 06/14/17 00:00 100 H 16 136/84 100 06/13/17 23:59 97 H 136/84 100 03/31/18 23:31 98.9 F 06/13/17 23:30 96 H 17 130/79 100 06/13/17 23:05 98 H 100 06/13/17 23:00 96 H 20 128/76 100 06/13/17 22:58 96 H 18 129/78 100 06/13/17 22:30 96 H 17 129/78 100 06/13/17 22:00 98 H 17 130/78 100 06/13/17 21:45 101 H 100 06/13/17 21:32 101 H 140/87 06/13/17 21:30 97 H 15 140/87 100 06/13/17 21:00 98 H 18 136/86 100 06/13/17 20:30 98 H 20 138/87 100 06/13/17 20:00 98.8 F 101 H 19 139/88 100 06/13/17 19:30 98 H 24 140/88 100 06/13/17 19:00 98 H 21 141/86 100 06/13/17 18:30 99 H 26 H 141/86 100 06/13/17 18:00 101 H 25 H 145/88 100 06/13/17 17:36 100 06/13/17 17:34 102 H 25 H 145/86 100 06/13/17 17:30 103 H 23 145/86 99 06/13/17 17:00 102 H 27 H 141/87 99 06/13/17 16:30 104 H 30 H 138/82 95 06/13/17 16:10 100 06/13/17 16:00 98.3 F 103 H 25 H 129/83 95 06/13/17 15:30 105 H 30 H 127/91 100 06/13/17 15:26 100 H 25 H 132/81 100 06/13/17 15:00 101 H 26 H 132/81 99 06/13/17 14:30 102 H 25 H 130/79 100 06/13/17 14:10 100 06/13/17 14:06 101 H 25 H 100 06/13/17 13:35 99 H 134/86 06/13/17 13:34 98 H 134/86 06/13/17 13:30 99 H 26 H 134/86 100 06/13/17 13:00 98 H 22 138/83 99 06/13/17 12:43 99 H 23 143/86 100 06/13/17 12:30 100 H 19 143/86 100 06/13/17 12:15 100 06/13/17 12:00 98.8 F 99 H 21 144/88 99 06/13/17 11:30 100 H 18 141/86 99 06/13/17 11:00 101 H 19 141/85 100 06/13/17 10:30 102 H 20 139/84 100 06/13/17 10:00 105 H 20 140/85 100 06/13/17 09:37 103 H 147/89 06/13/17 09:36 103 H 147/89 06/13/17 09:30 103 H 19 147/89 100 - Physical Examination General: Other (intubated on the vent.) HEENT: Positive: Other (pupils fixed) Neck: Positive: neck supple Neuro: Positive: Other (unresponsive, on the vent) Abdomen: Positive: Soft Skin: Positive: Clear Extremities: Absent: edema - Labs and Meds CBC 06/14/17 Range/Units 04:18 WBC 29.6 H (4.5-11.0) K/mm3 RBC 2.81 L (3.65-5.03) M/mm3 Hgb 7.8 L (10.1-14.3) gm/dl Hct 23.2 L (30.3-42.9) % Plt Count 298 (140-440) K/mm3 Comprehensive Metabolic Panel 06/14/17 Range/Units 04:18 Sodium 139 (137-145) mmol/L Potassium 4.6 (3.6-5.0) mmol/L Chloride 100.4 (98-107) mmol/L Carbon Dioxide 20 L (22-30) mmol/L BUN 75 H (7-17) mg/dL Creatinine 2.2 H (0.7-1.2) mg/dL Glucose 364 H (65-100) mg/dL Calcium 8.6 (8.4-10.2) mg/dL - Imaging and Cardiology EKG: report reviewed (sinus tachycardia)
[2017-06-14] MEDS: LOVENOX SUB-Q SCH (09:49)
[2017-06-14] MEDS: ZAROXOLYN PO SCH ×2 (09:50→21:04)
[2017-06-14] MEDS: KEPPRA PO SCH ×2 (09:50→21:03)
[2017-06-14] MEDS: NAMENDA PO SCH ×2 (09:50→18:06)
[2017-06-14] MEDS: LASIX PO SCH (09:50)
[2017-06-14] MEDS: PEPCID PO SCH ×2 (09:51→21:04)
[2017-06-14] MEDS: ALDACTONE PO SCH (09:51)
[2017-06-14] MEDS: COREG PO SCH ×2 (09:51→21:05)
--- NOTE | 2017-06-14 10:18 | Progress Note ---
Assessment and Plan 36 y/o female with acute respiratory failure secondary to metabolic encephalopathy, thought to be from seizures, s/p cardiac arrest. 1. Continue PSV trials, status post trach and peg 2. Patient has to be in the ICU 20 days before Insurance will approve LTACH transfer 3. PT/OT if possible 4. Blood sugar control CCT 31 minutes. Subjective Date of service: 06/14/17 Principal diagnosis: coma, acute kidney injury Interval history: No acute events. Stable on PSV. No family at bedside. Remains unresponsive. Objective Vital Signs - 12hr 06/13/17 06/13/17 06/13/17 22:30 22:58 23:00 Temperature Pulse Rate 96 H 96 H 96 H Respiratory 17 18 20 Rate Blood Pressure 129/78 129/78 128/76 O2 Sat by Pulse 100 100 100 Oximetry O2 Sat by Pulse Oximetry [ Assessment] 06/13/17 06/13/17 06/13/17 23:05 23:30 23:31 Temperature 98.9 F Pulse Rate 98 H 96 H Respiratory 17 Rate Blood Pressure 130/79 O2 Sat by Pulse 100 100 Oximetry O2 Sat by Pulse Oximetry [ Assessment] 06/13/17 06/14/17 06/14/17 23:59 00:00 00:30 Temperature Pulse Rate 97 H 100 H 96 H Respiratory 16 18 Rate Blood Pressure 136/84 136/84 135/83 O2 Sat by Pulse 100 100 100 Oximetry O2 Sat by Pulse Oximetry [ Assessment] 06/14/17 06/14/17 06/14/17 01:00 01:30 02:00 Temperature Pulse Rate 97 H 96 H 96 H Respiratory 17 17 18 Rate Blood Pressure 133/78 134/72 136/75 O2 Sat by Pulse 99 100 99 Oximetry O2 Sat by Pulse Oximetry [ Assessment] 06/14/17 06/14/17 06/14/17 02:05 02:30 03:00 Temperature Pulse Rate 98 H 97 H 97 H Respiratory 19 15 Rate Blood Pressure 140/79 141/78 O2 Sat by Pulse 100 99 99 Oximetry O2 Sat by Pulse 100 Oximetry [ Assessment] 06/14/17 06/14/17 06/14/17 03:30 03:49 04:00 Temperature 99.4 F Pulse Rate 98 H 95 H Respiratory 16 14 Rate Blood Pressure 150/82 127/65 O2 Sat by Pulse 99 100 Oximetry O2 Sat by Pulse Oximetry [ Assessment] 06/14/17 06/14/17 06/14/17 04:02 04:30 05:00 Temperature Pulse Rate 98 H 97 H 97 H Respiratory 17 15 Rate Blood Pressure 127/65 136/74 O2 Sat by Pulse 97 99 Oximetry O2 Sat by Pulse Oximetry [ Assessment] 06/14/17 06/14/17 06/14/17 05:26 05:27 05:30 Temperature Pulse Rate 99 H 99 H 99 H Respiratory 17 Rate Blood Pressure 136/74 136/74 142/82 O2 Sat by Pulse 99 Oximetry O2 Sat by Pulse Oximetry [ Assessment] 06/14/17 06/14/17 06/14/17 06:00 06:30 07:00 Temperature Pulse Rate 100 H 101 H 100 H Respiratory 17 18 15 Rate Blood Pressure 138/77 143/80 128/73 O2 Sat by Pulse 99 99 99 Oximetry O2 Sat by Pulse Oximetry [ Assessment] 06/14/17 06/14/17 06/14/17 07:20 07:23 07:30 Temperature Pulse Rate 99 H 100 H 101 H Respiratory 20 23 Rate Blood Pressure 128/73 128/73 134/81 O2 Sat by Pulse 100 100 99 Oximetry O2 Sat by Pulse Oximetry [ Assessment] 06/14/17 06/14/17 06/14/17 08:00 08:10 09:51 Temperature 98.8 F Pulse Rate 97 H 98 H Respiratory 15 Rate Blood Pressure 132/74 136/82 O2 Sat by Pulse 99 100 Oximetry O2 Sat by Pulse Oximetry [ Assessment] 06/14/17 10:09 Temperature Pulse Rate 101 H Respiratory 20 Rate Blood Pressure 144/78 O2 Sat by Pulse 100 Oximetry O2 Sat by Pulse Oximetry [ Assessment] Constitutional: other (unresponsive, critically ill on ventilator) Eyes: non-icteric ENT: oropharynx moist, other (orally intubated) Neck: supple Effort: normal Ascultation: Bilateral: diminished breath sounds, rales, rhonchi, other (coarse BS bilaterally) Percussion: Bilateral: not dull Cardiovascular: other (tachycardia, RR; no mrg) Gastrointestinal: normoactive bowel sounds, soft, non-tender Integumentary: normal Extremities: no cyanosis, no edema, pink and warm Neurologic: unable to assess, other (unresponsive) Psychiatric: other (not able to assess) CBC and BMP: 06/14/17 04:18 04/01/18 04:18 ABG, PT/INR, D-dimer: ABG POC ABG pH 7.461 (7.35-7.45) H 06/10/17 03:24 POC ABG pCO2 36.6 (35-45) 06/10/17 03:24 POC ABG pO2 131 (80-105) H 06/10/17 03:24 POC ABG HCO3 26.1 06/10/17 03:24 POC ABG Total CO2 27 06/10/17 03:24 POC ABG O2 Sat 99 06/10/17 03:24 PT/INR, D-dimer PT 12.4 Sec. (12.2-14.9) 06/09/17 04:18 INR 0.88 (0.87-1.13) 06/09/17 04:18 Abnormal lab findings: Abnormal Labs 05/30/17 05/30/17 05/30/17 07:48 07:48 08:32 WBC 11.5 H RBC Hgb Hct MCH 27 L MCHC RDW 16.3 H Plt Count Lymph % (Auto) Phillips % (Auto) Phillips # Seg Neutrophils % Seg Neuts % (Manual) Lymphocytes % (Manual) Basophils % (Manual) Seg Neutrophils # Seg Neutrophils # Man Lymphocytes # (Manual) Basophils # (Manual) POC ABG pH POC ABG pCO2 POC ABG pO2 Sodium 133 L Potassium Chloride 89.9 L Carbon Dioxide BUN 27 H Creatinine 2.0 H Glucose 741 H* POC Glucose > 500 H Hemoglobin A1c Calcium Phosphorus Magnesium AST Alkaline Phosphatase Total Protein Albumin Urine Creatinine Urine Total Protein 05/30/17 05/30/17 05/30/17 08:59 08:59 16:08 WBC 14.5 H RBC Hgb Hct MCH MCHC RDW 16.0 H Plt Count Lymph % (Auto) Phillips % (Auto) Phillips # Seg Neutrophils % Seg Neuts % (Manual) 95.0 H Lymphocytes % (Manual) 2.0 L Basophils % (Manual) 2.0 H Seg Neutrophils # Seg Neutrophils # Man 13.8 H Lymphocytes # (Manual) 0.3 L Basophils # (Manual) 0.3 H POC ABG pH POC ABG pCO2 POC ABG pO2 Sodium 134 L 135 L Potassium 3.2 L Chloride 90.8 L 93.6 L Carbon Dioxide BUN 28 H 30 H Creatinine 2.0 H 2.1 H Glucose 742 H* 567 H* POC Glucose Hemoglobin A1c Calcium Phosphorus Magnesium AST Alkaline Phosphatase 246 H Total Protein 5.6 L Albumin 2.9 L Urine Creatinine Urine Total Protein 05/30/17 05/30/17 05/30/17 16:35 17:55 18:59 WBC RBC Hgb Hct MCH MCHC RDW Plt Count Lymph % (Auto) Phillips % (Auto) Phillips # Seg Neutrophils % Seg Neuts % (Manual) Lymphocytes % (Manual) Basophils % (Manual) Seg Neutrophils # Seg Neutrophils # Man Lymphocytes # (Manual) Basophils # (Manual) POC ABG pH 7.544 H POC ABG pCO2 32.0 L POC ABG pO2 155 H Sodium Potassium 3.1 L Chloride 93.9 L Carbon Dioxide BUN 30 H Creatinine 2.0 H Glucose 561 H* POC Glucose 497 H Hemoglobin A1c Calcium Phosphorus Magnesium AST Alkaline Phosphatase Total Protein Albumin Urine Creatinine Urine Total Protein 05/30/17 05/30/17 05/30/17 19:31 19:31 21:38 WBC RBC Hgb Hct MCH MCHC RDW Plt Count Lymph % (Auto) Phillips % (Auto) Phillips # Seg Neutrophils % Seg Neuts % (Manual) Lymphocytes % (Manual) Basophils % (Manual) Seg Neutrophils # Seg Neutrophils # Man Lymphocytes # (Manual) Basophils # (Manual) POC ABG pH POC ABG pCO2 POC ABG pO2 Sodium 135 L Potassium 2.9 L* Chloride 93.8 L 95.4 L Carbon Dioxide 20 L BUN 29 H 30 H Creatinine 2.2 H 2.3 H Glucose 478 H 364 H POC Glucose Hemoglobin A1c Calcium Phosphorus 2.20 L D Magnesium 1.40 L AST 42 H Alkaline Phosphatase 177 H Total Protein 5.4 L Albumin 2.4 L Urine Creatinine Urine Total Protein 05/30/17 05/31/17 05/31/17 23:06 02:17 05:27 WBC RBC Hgb Hct MCH MCHC RDW Plt Count Lymph % (Auto) Phillips % (Auto) Phillips # Seg Neutrophils % Seg Neuts % (Manual) Lymphocytes % (Manual) Basophils % (Manual) Seg Neutrophils # Seg Neutrophils # Man Lymphocytes # (Manual) Basophils # (Manual) POC ABG pH 7.489 H POC ABG pCO2 POC ABG pO2 Sodium Potassium 3.2 L 3.5 L Chloride Carbon Dioxide BUN 30 H 31 H Creatinine 2.5 H 2.4 H Glucose 288 H 246 H POC Glucose Hemoglobin A1c Calcium 8.3 L Phosphorus Magnesium AST Alkaline Phosphatase Total Protein Albumin Urine Creatinine Urine Total Protein 05/31/17 05/31/17 05/31/17 05:45 05:45 05:45 WBC RBC Hgb Hct MCH MCHC RDW Plt Count Lymph % (Auto) Phillips % (Auto) Phillips # Seg Neutrophils % Seg Neuts % (Manual) Lymphocytes % (Manual) Basophils % (Manual) Seg Neutrophils # Seg Neutrophils # Man Lymphocytes # (Manual) Basophils # (Manual) POC ABG pH POC ABG pCO2 POC ABG pO2 Sodium Potassium Chloride Carbon Dioxide BUN 32 H 30 H Creatinine 2.5 H 2.6 H Glucose 266 H 271 H POC Glucose Hemoglobin A1c 9.7 H Calcium 8.3 L 8.2 L Phosphorus Magnesium AST Alkaline Phosphatase 145 H Total Protein 4.7 L Albumin 1.8 L Urine Creatinine Urine Total Protein 05/31/17 05/31/17 05/31/17 08:18 09:20 12:18 WBC RBC Hgb Hct MCH MCHC RDW Plt Count Lymph % (Auto) Phillips % (Auto) Phillips # Seg Neutrophils % Seg Neuts % (Manual) Lymphocytes % (Manual) Basophils % (Manual) Seg Neutrophils # Seg Neutrophils # Man Lymphocytes # (Manual) Basophils # (Manual) POC ABG pH POC ABG pCO2 POC ABG pO2 Sodium Potassium Chloride Carbon Dioxide BUN Creatinine Glucose POC Glucose 300 H 254 H 170 H Hemoglobin A1c Calcium Phosphorus Magnesium AST Alkaline Phosphatase Total Protein Albumin Urine Creatinine Urine Total Protein 05/31/17 05/31/17 05/31/17 14:09 14:17 14:27 WBC RBC Hgb Hct MCH MCHC RDW Plt Count Lymph % (Auto) Phillips % (Auto) Phillips # Seg Neutrophils % Seg Neuts % (Manual) Lymphocytes % (Manual) Basophils % (Manual) Seg Neutrophils # Seg Neutrophils # Man Lymphocytes # (Manual) Basophils # (Manual) POC ABG pH POC ABG pCO2 POC ABG pO2 Sodium Potassium 3.4 L Chloride 107.1 H Carbon Dioxide BUN 30 H Creatinine 2.6 H Glucose 38 L* POC Glucose < 40 L 189 H Hemoglobin A1c Calcium 7.6 L Phosphorus Magnesium AST Alkaline Phosphatase Total Protein Albumin Urine Creatinine Urine Total Protein 05/31/17 05/31/17 05/31/17 15:01 16:01 17:19 WBC RBC Hgb Hct MCH MCHC RDW Plt Count Lymph % (Auto) Phillips % (Auto) Phillips # Seg Neutrophils % Seg Neuts % (Manual) Lymphocytes % (Manual) Basophils % (Manual) Seg Neutrophils # Seg Neutrophils # Man Lymphocytes # (Manual) Basophils # (Manual) POC ABG pH POC ABG pCO2 POC ABG pO2 Sodium Potassium Chloride Carbon Dioxide BUN Creatinine Glucose POC Glucose 130 H 165 H 131 H Hemoglobin A1c Calcium Phosphorus Magnesium AST Alkaline Phosphatase Total Protein Albumin Urine Creatinine Urine Total Protein 05/31/17 05/31/17 05/31/17 18:46 19:54 20:36 WBC RBC Hgb Hct MCH MCHC RDW Plt Count Lymph % (Auto) Phillips % (Auto) Phillips # Seg Neutrophils % Seg Neuts % (Manual) Lymphocytes % (Manual) Basophils % (Manual) Seg Neutrophils # Seg Neutrophils # Man Lymphocytes # (Manual) Basophils # (Manual) POC ABG pH POC ABG pCO2 POC ABG pO2 Sodium Potassium Chloride Carbon Dioxide BUN 29 H Creatinine 2.4 H Glucose 124 H POC Glucose 128 H 157 H Hemoglobin A1c Calcium 7.9 L Phosphorus Magnesium AST Alkaline Phosphatase Total Protein Albumin Urine Creatinine Urine Total Protein 05/31/17 06/01/17 06/01/17 21:41 03:22 04:06 WBC RBC Hgb Hct MCH MCHC RDW Plt Count Lymph % (Auto) Phillips % (Auto) Phillips # Seg Neutrophils % Seg Neuts % (Manual) Lymphocytes % (Manual) Basophils % (Manual) Seg Neutrophils # Seg Neutrophils # Man Lymphocytes # (Manual) Basophils # (Manual) POC ABG pH POC ABG pCO2 POC ABG pO2 Sodium Potassium Chloride Carbon Dioxide 19 L BUN 29 H Creatinine 2.6 H Glucose 205 H POC Glucose 158 H 251 H Hemoglobin A1c Calcium 7.8 L Phosphorus Magnesium AST Alkaline Phosphatase Total Protein Albumin Urine Creatinine Urine Total Protein 06/01/17 06/01/17 06/01/17 04:30 09:15 09:59 WBC 19.7 H RBC Hgb 10.0 L Hct MCH 27 L MCHC RDW 17.1 H Plt Count Lymph % (Auto) Phillips % (Auto) Phillips # Seg Neutrophils % Seg Neuts % (Manual) Lymphocytes % (Manual) Basophils % (Manual) Seg Neutrophils # Seg Neutrophils # Man Lymphocytes # (Manual) Basophils # (Manual) POC ABG pH 7.464 H POC ABG pCO2 31.3 L POC ABG pO2 Sodium Potassium Chloride Carbon Dioxide BUN Creatinine Glucose POC Glucose 330 H Hemoglobin A1c Calcium Phosphorus Magnesium AST Alkaline Phosphatase Total Protein Albumin Urine Creatinine Urine Total Protein 06/01/17 06/01/17 06/01/17 11:36 12:25 13:43 WBC RBC Hgb Hct MCH MCHC RDW Plt Count Lymph % (Auto) Phillips % (Auto) Phillips # Seg Neutrophils % Seg Neuts % (Manual) Lymphocytes % (Manual) Basophils % (Manual) Seg Neutrophils # Seg Neutrophils # Man Lymphocytes # (Manual) Basophils # (Manual) POC ABG pH POC ABG pCO2 POC ABG pO2 Sodium Potassium Chloride Carbon Dioxide BUN Creatinine Glucose POC Glucose 431 H 434 H 445 H Hemoglobin A1c Calcium Phosphorus Magnesium AST Alkaline Phosphatase Total Protein Albumin Urine Creatinine Urine Total Protein 06/01/17 06/01/17 06/01/17 14:26 15:46 16:03 WBC RBC Hgb Hct MCH MCHC RDW Plt Count Lymph % (Auto) Phillips % (Auto) Phillips # Seg Neutrophils % Seg Neuts % (Manual) Lymphocytes % (Manual) Basophils % (Manual) Seg Neutrophils # Seg Neutrophils # Man Lymphocytes # (Manual) Basophils # (Manual) POC ABG pH POC ABG pCO2 POC ABG pO2 Sodium Potassium Chloride Carbon Dioxide BUN Creatinine Glucose POC Glucose 310 H 292 H 244 H Hemoglobin A1c Calcium Phosphorus Magnesium AST Alkaline Phosphatase Total Protein Albumin Urine Creatinine Urine Total Protein 06/01/17 06/01/17 06/01/17 16:59 17:49 19:05 WBC RBC Hgb Hct MCH MCHC RDW Plt Count Lymph % (Auto) Phillips % (Auto) Phillips # Seg Neutrophils % Seg Neuts % (Manual) Lymphocytes % (Manual) Basophils % (Manual) Seg Neutrophils # Seg Neutrophils # Man Lymphocytes # (Manual) Basophils # (Manual) POC ABG pH POC ABG pCO2 POC ABG pO2 Sodium Potassium Chloride Carbon Dioxide BUN Creatinine Glucose POC Glucose 260 H 203 H 156 H Hemoglobin A1c Calcium Phosphorus Magnesium AST Alkaline Phosphatase Total Protein Albumin Urine Creatinine Urine Total Protein 06/02/17 06/02/17 06/02/17 00:09 01:06 02:31 WBC RBC Hgb Hct MCH MCHC RDW Plt Count Lymph % (Auto) Phillips % (Auto) Phillips # Seg Neutrophils % Seg Neuts % (Manual) Lymphocytes % (Manual) Basophils % (Manual) Seg Neutrophils # Seg Neutrophils # Man Lymphocytes # (Manual) Basophils # (Manual) POC ABG pH POC ABG pCO2 POC ABG pO2 Sodium Potassium Chloride Carbon Dioxide BUN Creatinine Glucose POC Glucose 137 H 146 H 182 H Hemoglobin A1c Calcium Phosphorus Magnesium AST Alkaline Phosphatase Total Protein Albumin Urine Creatinine Urine Total Protein 06/02/17 06/02/17 06/02/17 04:03 04:24 04:24 WBC 21.0 H RBC 3.62 L Hgb Hct 29.6 L MCH MCHC RDW 16.5 H Plt Count Lymph % (Auto) Phillips % (Auto) Phillips # Seg Neutrophils % Seg Neuts % (Manual) 98.0 H Lymphocytes % (Manual) 1.0 L Basophils % (Manual) Seg Neutrophils # Seg Neutrophils # Man 20.6 H Lymphocytes # (Manual) 0.2 L Basophils # (Manual) POC ABG pH POC ABG pCO2 POC ABG pO2 Sodium Potassium Chloride Carbon Dioxide 20 L BUN 36 H Creatinine 2.8 H Glucose 137 H POC Glucose 150 H Hemoglobin A1c Calcium 7.5 L Phosphorus 4.60 H Magnesium 1.50 L AST Alkaline Phosphatase 132 H Total Protein 4.1 L Albumin 1.7 L Urine Creatinine Urine Total Protein 06/02/17 06/02/17 06/02/17 05:01 05:14 06:20 WBC RBC Hgb Hct MCH MCHC RDW Plt Count Lymph % (Auto) Phillips % (Auto) Phillips # Seg Neutrophils % Seg Neuts % (Manual) Lymphocytes % (Manual) Basophils % (Manual) Seg Neutrophils # Seg Neutrophils # Man Lymphocytes # (Manual) Basophils # (Manual) POC ABG pH 7.517 H POC ABG pCO2 28.4 L POC ABG pO2 67 L Sodium Potassium Chloride Carbon Dioxide BUN Creatinine Glucose POC Glucose 137 H 163 H Hemoglobin A1c Calcium Phosphorus Magnesium AST Alkaline Phosphatase Total Protein Albumin Urine Creatinine Urine Total Protein 06/02/17 06/02/17 06/02/17 07:43 09:40 10:18 WBC RBC Hgb Hct MCH MCHC RDW Plt Count Lymph % (Auto) Phillips % (Auto) Phillips # Seg Neutrophils % Seg Neuts % (Manual) Lymphocytes % (Manual) Basophils % (Manual) Seg Neutrophils # Seg Neutrophils # Man Lymphocytes # (Manual) Basophils # (Manual) POC ABG pH POC ABG pCO2 POC ABG pO2 Sodium Potassium Chloride Carbon Dioxide BUN Creatinine Glucose POC Glucose 135 H 196 H Hemoglobin A1c Calcium Phosphorus Magnesium AST Alkaline Phosphatase Total Protein Albumin Urine Creatinine Urine Total Protein < 4 L 06/02/17 06/02/17 06/02/17 10:33 11:55 17:39 WBC RBC Hgb Hct MCH MCHC RDW Plt Count Lymph % (Auto) Phillips % (Auto) Phillips # Seg Neutrophils % Seg Neuts % (Manual) Lymphocytes % (Manual) Basophils % (Manual) Seg Neutrophils # Seg Neutrophils # Man Lymphocytes # (Manual) Basophils # (Manual) POC ABG pH POC ABG pCO2 POC ABG pO2 Sodium Potassium Chloride Carbon Dioxide BUN Creatinine Glucose POC Glucose 188 H 110 H 150 H Hemoglobin A1c Calcium Phosphorus Magnesium AST Alkaline Phosphatase Total Protein Albumin Urine Creatinine Urine Total Protein 06/02/17 06/02/17 06/03/17 18:12 21:32 02:02 WBC RBC Hgb Hct MCH MCHC RDW Plt Count Lymph % (Auto) Phillips % (Auto) Phillips # Seg Neutrophils % Seg Neuts % (Manual) Lymphocytes % (Manual) Basophils % (Manual) Seg Neutrophils # Seg Neutrophils # Man Lymphocytes # (Manual) Basophils # (Manual) POC ABG pH POC ABG pCO2 POC ABG pO2 Sodium Potassium Chloride Carbon Dioxide BUN Creatinine Glucose POC Glucose 131 H 143 H 191 H Hemoglobin A1c Calcium Phosphorus Magnesium AST Alkaline Phosphatase Total Protein Albumin Urine Creatinine Urine Total Protein 06/03/17 06/03/17 06/03/17 04:14 04:14 05:06 WBC 21.1 H RBC Hgb Hct MCH 27 L MCHC RDW 15.9 H Plt Count 447 H Lymph % (Auto) Phillips % (Auto) Phillips # Seg Neutrophils % Seg Neuts % (Manual) 94.0 H Lymphocytes % (Manual) 3.0 L Basophils % (Manual) Seg Neutrophils # Seg Neutrophils # Man 19.8 H Lymphocytes # (Manual) 0.6 L Basophils # (Manual) POC ABG pH POC ABG pCO2 28.6 L POC ABG pO2 112 H Sodium Potassium Chloride Carbon Dioxide 14 L BUN 45 H Creatinine 2.8 H Glucose 211 H POC Glucose Hemoglobin A1c Calcium 8.0 L Phosphorus Magnesium AST Alkaline Phosphatase Total Protein Albumin Urine Creatinine Urine Total Protein 06/03/17 06/03/17 06/03/17 06:00 10:20 13:43 WBC RBC Hgb Hct MCH MCHC RDW Plt Count Lymph % (Auto) Phillips % (Auto) Phillips # Seg Neutrophils % Seg Neuts % (Manual) Lymphocytes % (Manual) Basophils % (Manual) Seg Neutrophils # Seg Neutrophils # Man Lymphocytes # (Manual) Basophils # (Manual) POC ABG pH POC ABG pCO2 POC ABG pO2 Sodium Potassium Chloride Carbon Dioxide BUN Creatinine Glucose POC Glucose 224 H 226 H 296 H Hemoglobin A1c Calcium Phosphorus Magnesium AST Alkaline Phosphatase Total Protein Albumin Urine Creatinine Urine Total Protein 06/03/17 06/03/17 06/03/17 17:38 19:23 20:45 WBC RBC Hgb Hct MCH MCHC RDW Plt Count Lymph % (Auto) Phillips % (Auto) Phillips # Seg Neutrophils % Seg Neuts % (Manual) Lymphocytes % (Manual) Basophils % (Manual) Seg Neutrophils # Seg Neutrophils # Man Lymphocytes # (Manual) Basophils # (Manual) POC ABG pH POC ABG pCO2 POC ABG pO2 Sodium Potassium Chloride Carbon Dioxide BUN Creatinine Glucose POC Glucose 295 H 275 H 338 H Hemoglobin A1c Calcium Phosphorus Magnesium AST Alkaline Phosphatase Total Protein Albumin Urine Creatinine Urine Total Protein 06/03/17 06/03/17 06/04/17 21:50 23:08 00:16 WBC RBC Hgb Hct MCH MCHC RDW Plt Count Lymph % (Auto) Phillips % (Auto) Phillips # Seg Neutrophils % Seg Neuts % (Manual) Lymphocytes % (Manual) Basophils % (Manual) Seg Neutrophils # Seg Neutrophils # Man Lymphocytes # (Manual) Basophils # (Manual) POC ABG pH POC ABG pCO2 POC ABG pO2 Sodium Potassium Chloride Carbon Dioxide BUN Creatinine Glucose POC Glucose 223 H 214 H 226 H Hemoglobin A1c Calcium Phosphorus Magnesium AST Alkaline Phosphatase Total Protein Albumin Urine Creatinine Urine Total Protein 06/04/17 06/04/17 06/04/17 01:05 02:07 03:27 WBC RBC Hgb Hct MCH MCHC RDW Plt Count Lymph % (Auto) Phillips % (Auto) Phillips # Seg Neutrophils % Seg Neuts % (Manual) Lymphocytes % (Manual) Basophils % (Manual) Seg Neutrophils # Seg Neutrophils # Man Lymphocytes # (Manual) Basophils # (Manual) POC ABG pH POC ABG pCO2 POC ABG pO2 Sodium Potassium Chloride Carbon Dioxide BUN Creatinine Glucose POC Glucose 217 H 229 H 185 H Hemoglobin A1c Calcium Phosphorus Magnesium AST Alkaline Phosphatase Total Protein Albumin Urine Creatinine Urine Total Protein 06/04/17 06/04/17 06/04/17 03:52 04:05 04:05 WBC 19.6 H RBC Hgb Hct MCH 26 L MCHC RDW 15.6 H Plt Count 564 H Lymph % (Auto) 7.3 L Phillips % (Auto) 10.8 H Phillips # 2.1 H Seg Neutrophils % 81.4 H Seg Neuts % (Manual) Lymphocytes % (Manual) Basophils % (Manual) Seg Neutrophils # 15.9 H Seg Neutrophils # Man Lymphocytes # (Manual) Basophils # (Manual) POC ABG pH POC ABG pCO2 POC ABG pO2 Sodium Potassium Chloride Carbon Dioxide 17 L BUN 52 H Creatinine 2.5 H Glucose 163 H POC Glucose 181 H Hemoglobin A1c Calcium 7.9 L Phosphorus Magnesium AST Alkaline Phosphatase Total Protein Albumin Urine Creatinine Urine Total Protein 06/04/17 06/04/17 06/04/17 04:56 05:39 06:12 WBC RBC Hgb Hct MCH MCHC RDW Plt Count Lymph % (Auto) Phillips % (Auto) Phillips # Seg Neutrophils % Seg Neuts % (Manual) Lymphocytes % (Manual) Basophils % (Manual) Seg Neutrophils # Seg Neutrophils # Man Lymphocytes # (Manual) Basophils # (Manual) POC ABG pH 7.486 H POC ABG pCO2 26.8 L POC ABG pO2 Sodium Potassium Chloride Carbon Dioxide BUN Creatinine Glucose POC Glucose 208 H 225 H Hemoglobin A1c Calcium Phosphorus Magnesium AST Alkaline Phosphatase Total Protein Albumin Urine Creatinine Urine Total Protein 06/04/17 06/04/17 06/04/17 07:07 08:06 09:15 WBC RBC Hgb Hct MCH MCHC RDW Plt Count Lymph % (Auto) Phillips % (Auto) Phillips # Seg Neutrophils % Seg Neuts % (Manual) Lymphocytes % (Manual) Basophils % (Manual) Seg Neutrophils # Seg Neutrophils # Man Lymphocytes # (Manual) Basophils # (Manual) POC ABG pH POC ABG pCO2 POC ABG pO2 Sodium Potassium Chloride Carbon Dioxide BUN Creatinine Glucose POC Glucose 201 H 171 H 178 H Hemoglobin A1c Calcium Phosphorus Magnesium AST Alkaline Phosphatase Total Protein Albumin Urine Creatinine Urine Total Protein 06/04/17 06/04/17 06/04/17 10:16 12:22 17:21 WBC RBC Hgb Hct MCH MCHC RDW Plt Count Lymph % (Auto) Phillips % (Auto) Phillips # Seg Neutrophils % Seg Neuts % (Manual) Lymphocytes % (Manual) Basophils % (Manual) Seg Neutrophils # Seg Neutrophils # Man Lymphocytes # (Manual) Basophils # (Manual) POC ABG pH POC ABG pCO2 POC ABG pO2 Sodium Potassium Chloride Carbon Dioxide BUN Creatinine Glucose POC Glucose 191 H 188 H Hemoglobin A1c Calcium Phosphorus Magnesium AST Alkaline Phosphatase Total Protein Albumin Urine Creatinine 78.7 H Urine Total Protein 197 H 06/04/17 06/04/17 06/05/17 17:56 22:10 00:00 WBC RBC Hgb Hct MCH MCHC RDW Plt Count Lymph % (Auto) Phillips % (Auto) Phillips # Seg Neutrophils % Seg Neuts % (Manual) Lymphocytes % (Manual) Basophils % (Manual) Seg Neutrophils # Seg Neutrophils # Man Lymphocytes # (Manual) Basophils # (Manual) POC ABG pH POC ABG pCO2 POC ABG pO2 Sodium Potassium Chloride Carbon Dioxide 17 L BUN 55 H Creatinine 2.3 H Glucose 300 H POC Glucose 266 H 337 H Hemoglobin A1c Calcium 7.4 L Phosphorus Magnesium AST Alkaline Phosphatase Total Protein Albumin Urine Creatinine Urine Total Protein 06/05/17 06/05/17 06/05/17 03:26 04:11 05:13 WBC RBC Hgb Hct MCH MCHC RDW Plt Count Lymph % (Auto) Phillips % (Auto) Phillips # Seg Neutrophils % Seg Neuts % (Manual) Lymphocytes % (Manual) Basophils % (Manual) Seg Neutrophils # Seg Neutrophils # Man Lymphocytes # (Manual) Basophils # (Manual) POC ABG pH 7.586 H POC ABG pCO2 22.6 L POC ABG pO2 179 H Sodium Potassium Chloride Carbon Dioxide 19 L BUN 55 H Creatinine 2.2 H Glucose 226 H POC Glucose 220 H Hemoglobin A1c Calcium 7.7 L Phosphorus Magnesium AST Alkaline Phosphatase Total Protein Albumin Urine Creatinine Urine Total Protein 06/05/17 06/05/17 06/05/17 12:42 18:24 21:23 WBC RBC Hgb Hct MCH MCHC RDW Plt Count Lymph % (Auto) Phillips % (Auto) Phillips # Seg Neutrophils % Seg Neuts % (Manual) Lymphocytes % (Manual) Basophils % (Manual) Seg Neutrophils # Seg Neutrophils # Man Lymphocytes # (Manual) Basophils # (Manual) POC ABG pH POC ABG pCO2 POC ABG pO2 Sodium Potassium Chloride Carbon Dioxide BUN Creatinine Glucose POC Glucose 168 H 121 H 166 H Hemoglobin A1c Calcium Phosphorus Magnesium AST Alkaline Phosphatase Total Protein Albumin Urine Creatinine Urine Total Protein 06/06/17 06/06/17 06/06/17 00:14 04:11 06:19 WBC RBC Hgb Hct MCH MCHC RDW Plt Count Lymph % (Auto) Phillips % (Auto) Phillips # Seg Neutrophils % Seg Neuts % (Manual) Lymphocytes % (Manual) Basophils % (Manual) Seg Neutrophils # Seg Neutrophils # Man Lymphocytes # (Manual) Basophils # (Manual) POC ABG pH POC ABG pCO2 33.0 L POC ABG pO2 Sodium Potassium Chloride Carbon Dioxide BUN Creatinine Glucose POC Glucose 179 H 180 H Hemoglobin A1c Calcium Phosphorus Magnesium AST Alkaline Phosphatase Total Protein Albumin Urine Creatinine Urine Total Protein 06/06/17 06/06/17 06/06/17 12:19 18:38 20:01 WBC RBC Hgb Hct MCH MCHC RDW Plt Count Lymph % (Auto) Phillips % (Auto) Phillips # Seg Neutrophils % Seg Neuts % (Manual) Lymphocytes % (Manual) Basophils % (Manual) Seg Neutrophils # Seg Neutrophils # Man Lymphocytes # (Manual) Basophils # (Manual) POC ABG pH POC ABG pCO2 POC ABG pO2 Sodium Potassium Chloride Carbon Dioxide BUN Creatinine Glucose POC Glucose 123 H 56 L 65 L Hemoglobin A1c Calcium Phosphorus Magnesium AST Alkaline Phosphatase Total Protein Albumin Urine Creatinine Urine Total Protein 06/06/17 06/07/17 06/07/17 23:51 04:25 05:29 WBC RBC Hgb Hct MCH MCHC RDW Plt Count Lymph % (Auto) Phillips % (Auto) Phillips # Seg Neutrophils % Seg Neuts % (Manual) Lymphocytes % (Manual) Basophils % (Manual) Seg Neutrophils # Seg Neutrophils # Man Lymphocytes # (Manual) Basophils # (Manual) POC ABG pH 7.470 H POC ABG pCO2 33.6 L POC ABG pO2 Sodium Potassium Chloride Carbon Dioxide BUN Creatinine Glucose POC Glucose 118 H 183 H Hemoglobin A1c Calcium Phosphorus Magnesium AST Alkaline Phosphatase Total Protein Albumin Urine Creatinine Urine Total Protein 06/07/17 06/07/17 06/07/17 07:51 12:00 18:08 WBC RBC Hgb Hct MCH MCHC RDW Plt Count Lymph % (Auto) Phillips % (Auto) Phillips # Seg Neutrophils % Seg Neuts % (Manual) Lymphocytes % (Manual) Basophils % (Manual) Seg Neutrophils # Seg Neutrophils # Man Lymphocytes # (Manual) Basophils # (Manual) POC ABG pH POC ABG pCO2 POC ABG pO2 Sodium 135 L Potassium Chloride Carbon Dioxide 21 L BUN 50 H Creatinine 1.8 H Glucose 232 H POC Glucose 361 H 249 H Hemoglobin A1c Calcium 8.0 L Phosphorus Magnesium AST Alkaline Phosphatase Total Protein Albumin Urine Creatinine Urine Total Protein 06/07/17 06/08/17 06/08/17 23:53 05:25 11:50 WBC RBC Hgb Hct MCH MCHC RDW Plt Count Lymph % (Auto) Phillips % (Auto) Phillips # Seg Neutrophils % Seg Neuts % (Manual) Lymphocytes % (Manual) Basophils % (Manual) Seg Neutrophils # Seg Neutrophils # Man Lymphocytes # (Manual) Basophils # (Manual) POC ABG pH POC ABG pCO2 POC ABG pO2 Sodium Potassium Chloride Carbon Dioxide BUN Creatinine Glucose POC Glucose 190 H 136 H 166 H Hemoglobin A1c Calcium Phosphorus Magnesium AST Alkaline Phosphatase Total Protein Albumin Urine Creatinine Urine Total Protein 06/08/17 06/08/17 06/08/17 14:20 14:20 19:05 WBC 15.7 H RBC 3.49 L Hgb 9.4 L Hct 27.9 L MCH 27 L MCHC RDW 15.3 H Plt Count 590 H Lymph % (Auto) Phillips % (Auto) Phillips # Seg Neutrophils % Seg Neuts % (Manual) Lymphocytes % (Manual) Basophils % (Manual) Seg Neutrophils # Seg Neutrophils # Man Lymphocytes # (Manual) Basophils # (Manual) POC ABG pH POC ABG pCO2 POC ABG pO2 Sodium Potassium Chloride Carbon Dioxide BUN 55 H Creatinine 1.7 H Glucose 117 H POC Glucose 135 H Hemoglobin A1c Calcium Phosphorus Magnesium AST Alkaline Phosphatase Total Protein Albumin Urine Creatinine Urine Total Protein 06/08/17 06/08/17 06/09/17 21:52 23:55 04:18 WBC RBC Hgb Hct MCH MCHC RDW Plt Count Lymph % (Auto) Phillips % (Auto) Phillips # Seg Neutrophils % Seg Neuts % (Manual) Lymphocytes % (Manual) Basophils % (Manual) Seg Neutrophils # Seg Neutrophils # Man Lymphocytes # (Manual) Basophils # (Manual) POC ABG pH POC ABG pCO2 POC ABG pO2 Sodium Potassium Chloride Carbon Dioxide BUN 51 H Creatinine 1.6 H Glucose POC Glucose 186 H 209 H Hemoglobin A1c Calcium Phosphorus Magnesium AST Alkaline Phosphatase Total Protein Albumin Urine Creatinine Urine Total Protein 06/09/17 06/09/17 06/09/17 09:56 12:42 18:09 WBC RBC Hgb Hct MCH MCHC RDW Plt Count Lymph % (Auto) Phillips % (Auto) Phillips # Seg Neutrophils % Seg Neuts % (Manual) Lymphocytes % (Manual) Basophils % (Manual) Seg Neutrophils # Seg Neutrophils # Man Lymphocytes # (Manual) Basophils # (Manual) POC ABG pH POC ABG pCO2 POC ABG pO2 Sodium Potassium Chloride Carbon Dioxide BUN Creatinine Glucose POC Glucose 63 L 142 H 166 H Hemoglobin A1c Calcium Phosphorus Magnesium AST Alkaline Phosphatase Total Protein Albumin Urine Creatinine Urine Total Protein 06/09/17 06/10/17 06/10/17 23:39 03:24 04:28 WBC 15.1 H RBC 2.99 L Hgb 8.1 L Hct 23.6 L MCH 27 L MCHC 35 H RDW 15.4 H Plt Count 500 H Lymph % (Auto) Phillips % (Auto) Phillips # Seg Neutrophils % Seg Neuts % (Manual) Lymphocytes % (Manual) Basophils % (Manual) Seg Neutrophils # Seg Neutrophils # Man Lymphocytes # (Manual) Basophils # (Manual) POC ABG pH 7.461 H POC ABG pCO2 POC ABG pO2 131 H Sodium Potassium Chloride Carbon Dioxide BUN Creatinine Glucose POC Glucose 284 H Hemoglobin A1c Calcium Phosphorus Magnesium AST Alkaline Phosphatase Total Protein Albumin Urine Creatinine Urine Total Protein 06/10/17 06/10/17 06/10/17 04:28 05:10 12:41 WBC RBC Hgb Hct MCH MCHC RDW Plt Count Lymph % (Auto) Phillips % (Auto) Phillips # Seg Neutrophils % Seg Neuts % (Manual) Lymphocytes % (Manual) Basophils % (Manual) Seg Neutrophils # Seg Neutrophils # Man Lymphocytes # (Manual) Basophils # (Manual) POC ABG pH POC ABG pCO2 POC ABG pO2 Sodium Potassium Chloride Carbon Dioxide BUN 53 H Creatinine 1.8 H Glucose 185 H POC Glucose 190 H 50 L Hemoglobin A1c Calcium Phosphorus Magnesium AST Alkaline Phosphatase Total Protein Albumin Urine Creatinine Urine Total Protein 06/10/17 06/10/17 06/11/17 14:35 18:31 00:09 WBC RBC Hgb Hct MCH MCHC RDW Plt Count Lymph % (Auto) Phillips % (Auto) Phillips # Seg Neutrophils % Seg Neuts % (Manual) Lymphocytes % (Manual) Basophils % (Manual) Seg Neutrophils # Seg Neutrophils # Man Lymphocytes # (Manual) Basophils # (Manual) POC ABG pH POC ABG pCO2 POC ABG pO2 Sodium Potassium Chloride Carbon Dioxide BUN Creatinine Glucose POC Glucose 58 L 55 L 126 H Hemoglobin A1c Calcium Phosphorus Magnesium AST Alkaline Phosphatase Total Protein Albumin Urine Creatinine Urine Total Protein 06/11/17 06/11/17 06/11/17 05:32 06:01 06:03 WBC 15.6 H RBC 3.03 L Hgb 8.3 L Hct 24.0 L MCH MCHC 35 H RDW Plt Count 492 H Lymph % (Auto) Phillips % (Auto) Phillips # Seg Neutrophils % Seg Neuts % (Manual) Lymphocytes % (Manual) Basophils % (Manual) Seg Neutrophils # Seg Neutrophils # Man Lymphocytes # (Manual) Basophils # (Manual) POC ABG pH POC ABG pCO2 POC ABG pO2 Sodium Potassium Chloride Carbon Dioxide BUN 55 H Creatinine 1.8 H Glucose 228 H POC Glucose 219 H Hemoglobin A1c Calcium Phosphorus Magnesium AST Alkaline Phosphatase Total Protein Albumin Urine Creatinine Urine Total Protein 06/11/17 06/11/17 06/12/17 11:53 18:31 04:24 WBC 17.4 H RBC 2.90 L Hgb 8.0 L Hct 23.0 L MCH MCHC 35 H RDW Plt Count 460 H Lymph % (Auto) Phillips % (Auto) Phillips # Seg Neutrophils % Seg Neuts % (Manual) Lymphocytes % (Manual) Basophils % (Manual) Seg Neutrophils # Seg Neutrophils # Man Lymphocytes # (Manual) Basophils # (Manual) POC ABG pH POC ABG pCO2 POC ABG pO2 Sodium Potassium Chloride Carbon Dioxide BUN Creatinine Glucose POC Glucose 220 H 254 H Hemoglobin A1c Calcium Phosphorus Magnesium AST Alkaline Phosphatase Total Protein Albumin Urine Creatinine Urine Total Protein 06/12/17 06/12/17 06/12/17 05:37 05:40 06:00 WBC RBC Hgb Hct MCH MCHC RDW Plt Count Lymph % (Auto) Phillips % (Auto) Phillips # Seg Neutrophils % Seg Neuts % (Manual) Lymphocytes % (Manual) Basophils % (Manual) Seg Neutrophils # Seg Neutrophils # Man Lymphocytes # (Manual) Basophils # (Manual) POC ABG pH POC ABG pCO2 POC ABG pO2 Sodium Potassium Chloride Carbon Dioxide BUN Creatinine Glucose 41 L POC Glucose < 40 L < 40 L Hemoglobin A1c Calcium Phosphorus Magnesium AST Alkaline Phosphatase Total Protein Albumin Urine Creatinine Urine Total Protein 06/12/17 06/12/17 06/12/17 07:09 07:51 10:06 WBC RBC Hgb Hct MCH MCHC RDW Plt Count Lymph % (Auto) Phillips % (Auto) Phillips # Seg Neutrophils % Seg Neuts % (Manual) Lymphocytes % (Manual) Basophils % (Manual) Seg Neutrophils # Seg Neutrophils # Man Lymphocytes # (Manual) Basophils # (Manual) POC ABG pH POC ABG pCO2 POC ABG pO2 Sodium Potassium Chloride Carbon Dioxide BUN Creatinine Glucose POC Glucose 64 L 42 L 61 L Hemoglobin A1c Calcium Phosphorus Magnesium AST Alkaline Phosphatase Total Protein Albumin Urine Creatinine Urine Total Protein 06/12/17 06/12/17 06/12/17 11:16 14:04 18:03 WBC RBC Hgb Hct MCH MCHC RDW Plt Count Lymph % (Auto) Phillips % (Auto) Phillips # Seg Neutrophils % Seg Neuts % (Manual) Lymphocytes % (Manual) Basophils % (Manual) Seg Neutrophils # Seg Neutrophils # Man Lymphocytes # (Manual) Basophils # (Manual) POC ABG pH POC ABG pCO2 POC ABG pO2 Sodium Potassium Chloride Carbon Dioxide BUN Creatinine Glucose POC Glucose 67 L 112 H 116 H Hemoglobin A1c Calcium Phosphorus Magnesium AST Alkaline Phosphatase Total Protein Albumin Urine Creatinine Urine Total Protein 06/12/17 06/12/17 06/12/17 19:30 20:34 21:01 WBC RBC Hgb Hct MCH MCHC RDW Plt Count Lymph % (Auto) Phillips % (Auto) Phillips # Seg Neutrophils % Seg Neuts % (Manual) Lymphocytes % (Manual) Basophils % (Manual) Seg Neutrophils # Seg Neutrophils # Man Lymphocytes # (Manual) Basophils # (Manual) POC ABG pH POC ABG pCO2 POC ABG pO2 Sodium Potassium Chloride Carbon Dioxide BUN Creatinine Glucose POC Glucose 156 H 172 H 174 H Hemoglobin A1c Calcium Phosphorus Magnesium AST Alkaline Phosphatase Total Protein Albumin Urine Creatinine Urine Total Protein 06/12/17 06/12/17 06/13/17 22:00 23:23 00:27 WBC RBC Hgb Hct MCH MCHC RDW Plt Count Lymph % (Auto) Phillips % (Auto) Phillips # Seg Neutrophils % Seg Neuts % (Manual) Lymphocytes % (Manual) Basophils % (Manual) Seg Neutrophils # Seg Neutrophils # Man Lymphocytes # (Manual) Basophils # (Manual) POC ABG pH POC ABG pCO2 POC ABG pO2 Sodium Potassium Chloride Carbon Dioxide BUN Creatinine Glucose POC Glucose 240 H 286 H 182 H Hemoglobin A1c Calcium Phosphorus Magnesium AST Alkaline Phosphatase Total Protein Albumin Urine Creatinine Urine Total Protein 06/13/17 06/13/17 06/13/17 01:28 02:10 03:15 WBC RBC Hgb Hct MCH MCHC RDW Plt Count Lymph % (Auto) Phillips % (Auto) Phillips # Seg Neutrophils % Seg Neuts % (Manual) Lymphocytes % (Manual) Basophils % (Manual) Seg Neutrophils # Seg Neutrophils # Man Lymphocytes # (Manual) Basophils # (Manual) POC ABG pH POC ABG pCO2 POC ABG pO2 Sodium Potassium Chloride Carbon Dioxide BUN Creatinine Glucose POC Glucose 304 H 277 H 318 H Hemoglobin A1c Calcium Phosphorus Magnesium AST Alkaline Phosphatase Total Protein Albumin Urine Creatinine Urine Total Protein 06/13/17 06/13/17 06/13/17 04:15 05:10 05:38 WBC RBC Hgb Hct MCH MCHC RDW Plt Count Lymph % (Auto) Phillips % (Auto) Phillips # Seg Neutrophils % Seg Neuts % (Manual) Lymphocytes % (Manual) Basophils % (Manual) Seg Neutrophils # Seg Neutrophils # Man Lymphocytes # (Manual) Basophils # (Manual) POC ABG pH POC ABG pCO2 POC ABG pO2 Sodium Potassium Chloride Carbon Dioxide BUN Creatinine Glucose POC Glucose 294 H 275 H 315 H Hemoglobin A1c Calcium Phosphorus Magnesium AST Alkaline Phosphatase Total Protein Albumin Urine Creatinine Urine Total Protein 06/13/17 06/13/17 06/13/17 06:21 12:02 16:52 WBC RBC Hgb Hct MCH MCHC RDW Plt Count Lymph % (Auto) Phillips % (Auto) Phillips # Seg Neutrophils % Seg Neuts % (Manual) Lymphocytes % (Manual) Basophils % (Manual) Seg Neutrophils # Seg Neutrophils # Man Lymphocytes # (Manual) Basophils # (Manual) POC ABG pH POC ABG pCO2 POC ABG pO2 Sodium Potassium Chloride Carbon Dioxide BUN Creatinine Glucose POC Glucose 350 H 333 H 343 H Hemoglobin A1c Calcium Phosphorus Magnesium AST Alkaline Phosphatase Total Protein Albumin Urine Creatinine Urine Total Protein 06/14/17 06/14/17 06/14/17 00:01 04:18 04:18 WBC 29.6 H RBC 2.81 L Hgb 7.8 L Hct 23.2 L MCH MCHC RDW 15.3 H Plt Count Lymph % (Auto) Phillips % (Auto) Phillips # Seg Neutrophils % Seg Neuts % (Manual) Lymphocytes % (Manual) Basophils % (Manual) Seg Neutrophils # Seg Neutrophils # Man Lymphocytes # (Manual) Basophils # (Manual) POC ABG pH POC ABG pCO2 POC ABG pO2 Sodium Potassium Chloride Carbon Dioxide 20 L BUN 75 H Creatinine 2.2 H Glucose 364 H POC Glucose 297 H Hemoglobin A1c Calcium Phosphorus Magnesium AST Alkaline Phosphatase Total Protein Albumin Urine Creatinine Urine Total Protein 06/14/17 06/14/17 05:10 08:25 WBC RBC Hgb Hct MCH MCHC RDW Plt Count Lymph % (Auto) Phillips % (Auto) Phillips # Seg Neutrophils % Seg Neuts % (Manual) Lymphocytes % (Manual) Basophils % (Manual) Seg Neutrophils # Seg Neutrophils # Man Lymphocytes # (Manual) Basophils # (Manual) POC ABG pH POC ABG pCO2 POC ABG pO2 Sodium Potassium Chloride Carbon Dioxide BUN Creatinine Glucose POC Glucose 350 H 322 H Hemoglobin A1c Calcium Phosphorus Magnesium AST Alkaline Phosphatase Total Protein Albumin Urine Creatinine Urine Total Protein
--- NOTE | 2017-06-14 10:31 | Progress Note ---
Assessment and Plan - Patient Problems (1) Acute renal failure with tubular necrosis Current Visit: Yes Status: Acute Plan to address problem: Non-Oliguric Acute renal failure/acute tubular necrosis. marginally worse renal function noted, will decrease lasix to 40mg po qd. Follow kidney function and electrolytes on diuretics. (2) Acute respiratory failure Current Visit: Yes Status: Acute Qualifiers: Respiratory failure complication: hypoxia Qualified Code(s): J96.01 - Acute respiratory failure with hypoxia Plan to address problem: Ventilator management by pulmonary/CCM (3) Hyperosmolar non-ketotic state in patient with type 2 diabetes mellitus Current Visit: Yes Status: Acute Plan to address problem: Blood sugar management by primary attending (4) Proteinuria Current Visit: Yes Status: Acute Plan to address problem: likely due to underlying diabetic nephropathy. ARAM-I contraindicated due to h/o allergy (5) Hypertension Current Visit: Yes Status: Acute Qualifiers: Hypertension type: essential hypertension Qualified Code(s): I10 - Essential (primary) hypertension Plan to address problem: Blood pressure has improved. Follow blood pressure on current medications (6) Acute systolic heart failure Current Visit: Yes Status: Acute Plan to address problem: Continue diuretics and beta jas. Continue spironolactone and monitor fluid balance. ARAM inhibitor/angiotensin receptor jas contraindicated due to her history of allergy Subjective Date of service: 06/14/17 Principal diagnosis: coma, acute kidney injury Interval history: pt s/p trach/peg, on vent, remains unresponsive Objective - Vital Signs Vital signs: Vital Signs - 12hr 06/13/17 06/13/17 06/13/17 22:58 23:00 23:05 Temperature Pulse Rate 96 H 96 H 98 H Respiratory 18 20 Rate Blood Pressure 129/78 128/76 O2 Sat by Pulse 100 100 100 Oximetry O2 Sat by Pulse Oximetry [ Assessment] 06/13/17 06/13/17 06/13/17 23:30 23:31 23:59 Temperature 98.9 F Pulse Rate 96 H 97 H Respiratory 17 Rate Blood Pressure 130/79 136/84 O2 Sat by Pulse 100 100 Oximetry O2 Sat by Pulse Oximetry [ Assessment] 06/14/17 06/14/17 06/14/17 00:00 00:30 01:00 Temperature Pulse Rate 100 H 96 H 97 H Respiratory 16 18 17 Rate Blood Pressure 136/84 135/83 133/78 O2 Sat by Pulse 100 100 99 Oximetry O2 Sat by Pulse Oximetry [ Assessment] 06/14/17 06/14/17 06/14/17 01:30 02:00 02:05 Temperature Pulse Rate 96 H 96 H 98 H Respiratory 17 18 Rate Blood Pressure 134/72 136/75 O2 Sat by Pulse 100 99 100 Oximetry O2 Sat by Pulse Oximetry [ Assessment] 06/14/17 06/14/17 06/14/17 02:30 03:00 03:30 Temperature Pulse Rate 97 H 97 H 98 H Respiratory 19 15 16 Rate Blood Pressure 140/79 141/78 150/82 O2 Sat by Pulse 99 99 99 Oximetry O2 Sat by Pulse 100 Oximetry [ Assessment] 06/14/17 06/14/17 06/14/17 03:49 04:00 04:02 Temperature 99.4 F Pulse Rate 95 H 98 H Respiratory 14 Rate Blood Pressure 127/65 O2 Sat by Pulse 100 Oximetry O2 Sat by Pulse Oximetry [ Assessment] 06/14/17 06/14/17 06/14/17 04:30 05:00 05:26 Temperature Pulse Rate 97 H 97 H 99 H Respiratory 17 15 Rate Blood Pressure 127/65 136/74 136/74 O2 Sat by Pulse 97 99 Oximetry O2 Sat by Pulse Oximetry [ Assessment] 06/14/17 06/14/17 06/14/17 05:27 05:30 06:00 Temperature Pulse Rate 99 H 99 H 100 H Respiratory 17 17 Rate Blood Pressure 136/74 142/82 138/77 O2 Sat by Pulse 99 99 Oximetry O2 Sat by Pulse Oximetry [ Assessment] 06/14/17 06/14/17 06/14/17 06:30 07:00 07:20 Temperature Pulse Rate 101 H 100 H 99 H Respiratory 18 15 Rate Blood Pressure 143/80 128/73 128/73 O2 Sat by Pulse 99 99 100 Oximetry O2 Sat by Pulse Oximetry [ Assessment] 06/14/17 06/14/17 06/14/17 07:23 07:30 08:00 Temperature 98.8 F Pulse Rate 100 H 101 H 97 H Respiratory 20 23 15 Rate Blood Pressure 128/73 134/81 132/74 O2 Sat by Pulse 100 99 99 Oximetry O2 Sat by Pulse Oximetry [ Assessment] 06/14/17 06/14/17 06/14/17 08:10 09:51 10:09 Temperature Pulse Rate 98 H 101 H Respiratory 20 Rate Blood Pressure 136/82 144/78 O2 Sat by Pulse 100 100 Oximetry O2 Sat by Pulse Oximetry [ Assessment] - General Appearance General appearance: well-developed, well-nourished, intubated EENT: ATNC, mucous membranes moist Neck: no JVD Respiratory: Present: Clear to Ascultation Cardiology: regular, S1S2 Gastrointestinal: normoactive bowel sounds Integumentary: no rash, other (+2 edema b/l lE ) Neurologic: other (unresponsive ) - Lab 06/14/17 04:18 06/14/17 04:18 Most recent lab results Calcium 8.6 mg/dL (8.4-10.2) 06/14/17 04:18 Phosphorus 4.40 mg/dL (2.5-4.5) 06/07/17 07:51 Magnesium 1.70 mg/dL (1.7-2.3) 06/07/17 07:51 Urine Creatinine 78.7 mg/dL (0.1-20.0) H 06/04/17 17:21 Urine Sodium 10 mmol/L 06/02/17 10:18 Urine Total Protein 197 mg/dL (5-11.8) H 06/04/17 17:21
[2017-06-14] MEDS: LANTUS SUB-Q SCH ×2 (12:30→13:30)
[2017-06-15] MEDS: HumaLOG SUB-Q SCH ×4 (06:02→17:53)
[2017-06-15] MEDS: APRESOLINE PO SCH ×3 (06:02→21:10)
[2017-06-15] MEDS: ISORDIL TITRADOSE PO SCH ×3 (06:03→21:10)
[2017-06-15] MEDS: NAMENDA PO SCH ×2 (06:03→17:53)
[2017-06-15 06:37] LABS: ABG Base Excess -1.7 mmol/L (-2.0-3.0); ABG HCO3 21.9 mmol/L (20.0-26.0); ABG Methemoglobin 0.5 % (0.0-1.5); ABG PH 7.44 pH Units (7.350-7.450); ABG PO2 84.3 mm Hg (80.0-90.0)
[2017-06-15] MEDS ORDERED: LASIX PO ONE (08:00)
[2017-06-15] MEDS: TRANSDERM-SCOP TD SCH (09:53)
[2017-06-15] MEDS: ZAROXOLYN PO SCH ×2 (09:54→21:15)
[2017-06-15] MEDS: KEPPRA PO SCH ×2 (09:54→21:11)
[2017-06-15] MEDS: PEPCID PO SCH (09:54)
[2017-06-15] MEDS: LOVENOX SUB-Q SCH (09:54)
[2017-06-15] MEDS: ALDACTONE PO SCH (09:55)
[2017-06-15] MEDS: LANTUS SUB-Q SCH (09:55)
[2017-06-15] MEDS: COREG PO SCH ×2 (09:55→21:10)
[2017-06-15] MEDS ORDERED: LASIX PO SCH ×2 (10:00→12:00)
--- NOTE | 2017-06-15 11:41 | Progress Note ---
Assessment and Plan Fever. Some chest congestion right lung. Nursing reported some secretions suspicious for NGT feeding Status post cardiac arrest Acute respiratory failure. Metabolic encephalopathy Seizures clinically, she appears to be controlled Recommendations Upper chest x-rays. Cover abx Hold tube feeding for now Aspiration precautions Decrease pressure support to 8/5 cm H2O Monitor tolerance Neurology follow-up Check cultures monitor fever. DVT prophylaxis PPI prophylaxis Discussed with family at the bedside Critical care time was 31 minutes of [id number] evaluation and coordination of care Subjective Date of service: 06/15/17 Principal diagnosis: coma, acute kidney injury Interval history: Intubated nonresponsive Objective Vital Signs - 12hr 06/14/17 06/15/17 06/15/17 23:56 00:00 00:30 Temperature 99.3 F Pulse Rate 96 H 95 H Respiratory 16 22 Rate Blood Pressure 144/78 142/76 O2 Sat by Pulse 97 98 Oximetry O2 Sat by Pulse Oximetry [ Assessment] 06/15/17 06/15/17 06/15/17 01:00 01:30 02:00 Temperature Pulse Rate 96 H 95 H 97 H Respiratory 20 19 19 Rate Blood Pressure 142/76 145/79 147/77 O2 Sat by Pulse 100 97 98 Oximetry O2 Sat by Pulse Oximetry [ Assessment] 06/15/17 06/15/17 06/15/17 02:30 03:00 03:30 Temperature Pulse Rate 97 H 97 H 99 H Respiratory 22 19 18 Rate Blood Pressure 144/75 147/76 152/78 O2 Sat by Pulse 97 98 98 Oximetry O2 Sat by Pulse 100 Oximetry [ Assessment] 06/15/17 06/15/17 06/15/17 04:00 04:30 05:00 Temperature 99.0 F Pulse Rate 97 H 99 H 93 H Respiratory 22 17 18 Rate Blood Pressure 147/75 155/84 141/77 O2 Sat by Pulse 98 97 100 Oximetry O2 Sat by Pulse Oximetry [ Assessment] 06/15/17 06/15/17 06/15/17 05:30 06:00 06:02 Temperature Pulse Rate 96 H 97 H 96 H Respiratory 22 22 Rate Blood Pressure 141/77 150/78 141/77 O2 Sat by Pulse 92 96 Oximetry O2 Sat by Pulse Oximetry [ Assessment] 06/15/17 06/15/17 06/15/17 06:03 06:30 07:00 Temperature Pulse Rate 97 H 95 H 97 H Respiratory 22 22 Rate Blood Pressure 141/77 146/73 141/74 O2 Sat by Pulse 97 96 Oximetry O2 Sat by Pulse Oximetry [ Assessment] 06/15/17 06/15/17 06/15/17 07:30 08:00 08:03 Temperature 99.8 F H Pulse Rate 97 H 98 H 97 H Respiratory 19 19 24 Rate Blood Pressure 137/70 157/79 157/79 O2 Sat by Pulse 95 98 99 Oximetry O2 Sat by Pulse Oximetry [ Assessment] 06/15/17 06/15/17 06/15/17 08:30 09:00 09:30 Temperature Pulse Rate 98 H 94 H 92 H Respiratory 27 H 29 H 30 H Rate Blood Pressure 139/72 150/88 130/79 O2 Sat by Pulse 96 95 98 Oximetry O2 Sat by Pulse Oximetry [ Assessment] 06/15/17 09:55 Temperature Pulse Rate 93 H Respiratory Rate Blood Pressure 130/79 O2 Sat by Pulse Oximetry O2 Sat by Pulse Oximetry [ Assessment] Constitutional: no acute distress, other Eyes: non-icteric ENT: oropharynx moist, other (trach in position) Neck: supple Effort: normal Ascultation: Right: rhonchi, Left: clear, Bilateral: diminished breath sounds Percussion: Bilateral: not dull Cardiovascular: regular rate and rhythm Gastrointestinal: normoactive bowel sounds, soft, non-tender Integumentary: normal Extremities: no cyanosis, no edema, pink and warm Neurologic: unable to assess, other (unresponsive, rolls her eyes sporadically) Psychiatric: other CBC and BMP: 06/14/17 04:18 06/15/17 11:20 ABG, PT/INR, D-dimer: ABG POC ABG pH 7.461 (7.35-7.45) H 06/10/17 03:24 ABG pH 7.440 pH Units (7.350-7.450) 06/15/17 Unknown POC ABG pCO2 36.6 (35-45) 06/10/17 03:24 ABG pCO2 33.0 mm Hg 06/15/17 Unknown POC ABG pO2 131 (80-105) H 06/10/17 03:24 ABG pO2 84.3 mm Hg (80.0-90.0) 06/15/17 Unknown POC ABG HCO3 26.1 06/10/17 03:24 POC ABG Total CO2 27 06/10/17 03:24 POC ABG O2 Sat 99 06/10/17 03:24 ABG O2 Saturation 97.0 % (95.0-99.0) 06/15/17 Unknown PT/INR, D-dimer PT 12.4 Sec. (12.2-14.9) 06/09/17 04:18 INR 0.88 (0.87-1.13) 06/09/17 04:18 Abnormal lab findings: Abnormal Labs 05/30/17 05/30/17 05/30/17 07:48 07:48 08:32 WBC 11.5 H RBC Hgb Hct MCH 27 L MCHC RDW 16.3 H Plt Count Lymph % (Auto) Cross % (Auto) Cross # Seg Neutrophils % Seg Neuts % (Manual) Lymphocytes % (Manual) Basophils % (Manual) Seg Neutrophils # Seg Neutrophils # Man Lymphocytes # (Manual) Basophils # (Manual) POC ABG pH POC ABG pCO2 POC ABG pO2 ABG Hemoglobin Oxyhemoglobin Sodium 133 L Potassium Chloride 89.9 L Carbon Dioxide BUN 27 H Creatinine 2.0 H Glucose 741 H* POC Glucose > 500 H Hemoglobin A1c Calcium Phosphorus Magnesium AST Alkaline Phosphatase Total Protein Albumin Urine Creatinine Urine Total Protein 05/30/17 05/30/17 05/30/17 08:59 08:59 16:08 WBC 14.5 H RBC Hgb Hct MCH MCHC RDW 16.0 H Plt Count Lymph % (Auto) Cross % (Auto) Cross # Seg Neutrophils % Seg Neuts % (Manual) 95.0 H Lymphocytes % (Manual) 2.0 L Basophils % (Manual) 2.0 H Seg Neutrophils # Seg Neutrophils # Man 13.8 H Lymphocytes # (Manual) 0.3 L Basophils # (Manual) 0.3 H POC ABG pH POC ABG pCO2 POC ABG pO2 ABG Hemoglobin Oxyhemoglobin Sodium 134 L 135 L Potassium 3.2 L Chloride 90.8 L 93.6 L Carbon Dioxide BUN 28 H 30 H Creatinine 2.0 H 2.1 H Glucose 742 H* 567 H* POC Glucose Hemoglobin A1c Calcium Phosphorus Magnesium AST Alkaline Phosphatase 246 H Total Protein 5.6 L Albumin 2.9 L Urine Creatinine Urine Total Protein 05/30/17 05/30/17 05/30/17 16:35 17:55 18:59 WBC RBC Hgb Hct MCH MCHC RDW Plt Count Lymph % (Auto) Cross % (Auto) Cross # Seg Neutrophils % Seg Neuts % (Manual) Lymphocytes % (Manual) Basophils % (Manual) Seg Neutrophils # Seg Neutrophils # Man Lymphocytes # (Manual) Basophils # (Manual) POC ABG pH 7.544 H POC ABG pCO2 32.0 L POC ABG pO2 155 H ABG Hemoglobin Oxyhemoglobin Sodium Potassium 3.1 L Chloride 93.9 L Carbon Dioxide BUN 30 H Creatinine 2.0 H Glucose 561 H* POC Glucose 497 H Hemoglobin A1c Calcium Phosphorus Magnesium AST Alkaline Phosphatase Total Protein Albumin Urine Creatinine Urine Total Protein 05/30/17 05/30/17 05/30/17 19:31 19:31 21:38 WBC RBC Hgb Hct MCH MCHC RDW Plt Count Lymph % (Auto) Cross % (Auto) Cross # Seg Neutrophils % Seg Neuts % (Manual) Lymphocytes % (Manual) Basophils % (Manual) Seg Neutrophils # Seg Neutrophils # Man Lymphocytes # (Manual) Basophils # (Manual) POC ABG pH POC ABG pCO2 POC ABG pO2 ABG Hemoglobin Oxyhemoglobin Sodium 135 L Potassium 2.9 L* Chloride 93.8 L 95.4 L Carbon Dioxide 20 L BUN 29 H 30 H Creatinine 2.2 H 2.3 H Glucose 478 H 364 H POC Glucose Hemoglobin A1c Calcium Phosphorus 2.20 L D Magnesium 1.40 L AST 42 H Alkaline Phosphatase 177 H Total Protein 5.4 L Albumin 2.4 L Urine Creatinine Urine Total Protein 05/30/17 05/31/17 05/31/17 23:06 02:17 05:27 WBC RBC Hgb Hct MCH MCHC RDW Plt Count Lymph % (Auto) Cross % (Auto) Cross # Seg Neutrophils % Seg Neuts % (Manual) Lymphocytes % (Manual) Basophils % (Manual) Seg Neutrophils # Seg Neutrophils # Man Lymphocytes # (Manual) Basophils # (Manual) POC ABG pH 7.489 H POC ABG pCO2 POC ABG pO2 ABG Hemoglobin Oxyhemoglobin Sodium Potassium 3.2 L 3.5 L Chloride Carbon Dioxide BUN 30 H 31 H Creatinine 2.5 H 2.4 H Glucose 288 H 246 H POC Glucose Hemoglobin A1c Calcium 8.3 L Phosphorus Magnesium AST Alkaline Phosphatase Total Protein Albumin Urine Creatinine Urine Total Protein 05/31/17 05/31/17 05/31/17 05:45 05:45 05:45 WBC RBC Hgb Hct MCH MCHC RDW Plt Count Lymph % (Auto) Cross % (Auto) Cross # Seg Neutrophils % Seg Neuts % (Manual) Lymphocytes % (Manual) Basophils % (Manual) Seg Neutrophils # Seg Neutrophils # Man Lymphocytes # (Manual) Basophils # (Manual) POC ABG pH POC ABG pCO2 POC ABG pO2 ABG Hemoglobin Oxyhemoglobin Sodium Potassium Chloride Carbon Dioxide BUN 32 H 30 H Creatinine 2.5 H 2.6 H Glucose 266 H 271 H POC Glucose Hemoglobin A1c 9.7 H Calcium 8.3 L 8.2 L Phosphorus Magnesium AST Alkaline Phosphatase 145 H Total Protein 4.7 L Albumin 1.8 L Urine Creatinine Urine Total Protein 05/31/17 05/31/17 05/31/17 08:18 09:20 12:18 WBC RBC Hgb Hct MCH MCHC RDW Plt Count Lymph % (Auto) Cross % (Auto) Cross # Seg Neutrophils % Seg Neuts % (Manual) Lymphocytes % (Manual) Basophils % (Manual) Seg Neutrophils # Seg Neutrophils # Man Lymphocytes # (Manual) Basophils # (Manual) POC ABG pH POC ABG pCO2 POC ABG pO2 ABG Hemoglobin Oxyhemoglobin Sodium Potassium Chloride Carbon Dioxide BUN Creatinine Glucose POC Glucose 300 H 254 H 170 H Hemoglobin A1c Calcium Phosphorus Magnesium AST Alkaline Phosphatase Total Protein Albumin Urine Creatinine Urine Total Protein 05/31/17 05/31/17 05/31/17 14:09 14:17 14:27 WBC RBC Hgb Hct MCH MCHC RDW Plt Count Lymph % (Auto) Cross % (Auto) Cross # Seg Neutrophils % Seg Neuts % (Manual) Lymphocytes % (Manual) Basophils % (Manual) Seg Neutrophils # Seg Neutrophils # Man Lymphocytes # (Manual) Basophils # (Manual) POC ABG pH POC ABG pCO2 POC ABG pO2 ABG Hemoglobin Oxyhemoglobin Sodium Potassium 3.4 L Chloride 107.1 H Carbon Dioxide BUN 30 H Creatinine 2.6 H Glucose 38 L* POC Glucose < 40 L 189 H Hemoglobin A1c Calcium 7.6 L Phosphorus Magnesium AST Alkaline Phosphatase Total Protein Albumin Urine Creatinine Urine Total Protein 05/31/17 05/31/17 05/31/17 15:01 16:01 17:19 WBC RBC Hgb Hct MCH MCHC RDW Plt Count Lymph % (Auto) Cross % (Auto) Cross # Seg Neutrophils % Seg Neuts % (Manual) Lymphocytes % (Manual) Basophils % (Manual) Seg Neutrophils # Seg Neutrophils # Man Lymphocytes # (Manual) Basophils # (Manual) POC ABG pH POC ABG pCO2 POC ABG pO2 ABG Hemoglobin Oxyhemoglobin Sodium Potassium Chloride Carbon Dioxide BUN Creatinine Glucose POC Glucose 130 H 165 H 131 H Hemoglobin A1c Calcium Phosphorus Magnesium AST Alkaline Phosphatase Total Protein Albumin Urine Creatinine Urine Total Protein 05/31/17 05/31/17 05/31/17 18:46 19:54 20:36 WBC RBC Hgb Hct MCH MCHC RDW Plt Count Lymph % (Auto) Cross % (Auto) Cross # Seg Neutrophils % Seg Neuts % (Manual) Lymphocytes % (Manual) Basophils % (Manual) Seg Neutrophils # Seg Neutrophils # Man Lymphocytes # (Manual) Basophils # (Manual) POC ABG pH POC ABG pCO2 POC ABG pO2 ABG Hemoglobin Oxyhemoglobin Sodium Potassium Chloride Carbon Dioxide BUN 29 H Creatinine 2.4 H Glucose 124 H POC Glucose 128 H 157 H Hemoglobin A1c Calcium 7.9 L Phosphorus Magnesium AST Alkaline Phosphatase Total Protein Albumin Urine Creatinine Urine Total Protein 05/31/17 06/01/17 06/01/17 21:41 03:22 04:06 WBC RBC Hgb Hct MCH MCHC RDW Plt Count Lymph % (Auto) Cross % (Auto) Cross # Seg Neutrophils % Seg Neuts % (Manual) Lymphocytes % (Manual) Basophils % (Manual) Seg Neutrophils # Seg Neutrophils # Man Lymphocytes # (Manual) Basophils # (Manual) POC ABG pH POC ABG pCO2 POC ABG pO2 ABG Hemoglobin Oxyhemoglobin Sodium Potassium Chloride Carbon Dioxide 19 L BUN 29 H Creatinine 2.6 H Glucose 205 H POC Glucose 158 H 251 H Hemoglobin A1c Calcium 7.8 L Phosphorus Magnesium AST Alkaline Phosphatase Total Protein Albumin Urine Creatinine Urine Total Protein 06/01/17 06/01/17 06/01/17 04:30 09:15 09:59 WBC 19.7 H RBC Hgb 10.0 L Hct MCH 27 L MCHC RDW 17.1 H Plt Count Lymph % (Auto) Cross % (Auto) Cross # Seg Neutrophils % Seg Neuts % (Manual) Lymphocytes % (Manual) Basophils % (Manual) Seg Neutrophils # Seg Neutrophils # Man Lymphocytes # (Manual) Basophils # (Manual) POC ABG pH 7.464 H POC ABG pCO2 31.3 L POC ABG pO2 ABG Hemoglobin Oxyhemoglobin Sodium Potassium Chloride Carbon Dioxide BUN Creatinine Glucose POC Glucose 330 H Hemoglobin A1c Calcium Phosphorus Magnesium AST Alkaline Phosphatase Total Protein Albumin Urine Creatinine Urine Total Protein 06/01/17 06/01/17 06/01/17 11:36 12:25 13:43 WBC RBC Hgb Hct MCH MCHC RDW Plt Count Lymph % (Auto) Cross % (Auto) Cross # Seg Neutrophils % Seg Neuts % (Manual) Lymphocytes % (Manual) Basophils % (Manual) Seg Neutrophils # Seg Neutrophils # Man Lymphocytes # (Manual) Basophils # (Manual) POC ABG pH POC ABG pCO2 POC ABG pO2 ABG Hemoglobin Oxyhemoglobin Sodium Potassium Chloride Carbon Dioxide BUN Creatinine Glucose POC Glucose 431 H 434 H 445 H Hemoglobin A1c Calcium Phosphorus Magnesium AST Alkaline Phosphatase Total Protein Albumin Urine Creatinine Urine Total Protein 06/01/17 06/01/17 06/01/17 14:26 15:46 16:03 WBC RBC Hgb Hct MCH MCHC RDW Plt Count Lymph % (Auto) Cross % (Auto) Cross # Seg Neutrophils % Seg Neuts % (Manual) Lymphocytes % (Manual) Basophils % (Manual) Seg Neutrophils # Seg Neutrophils # Man Lymphocytes # (Manual) Basophils # (Manual) POC ABG pH POC ABG pCO2 POC ABG pO2 ABG Hemoglobin Oxyhemoglobin Sodium Potassium Chloride Carbon Dioxide BUN Creatinine Glucose POC Glucose 310 H 292 H 244 H Hemoglobin A1c Calcium Phosphorus Magnesium AST Alkaline Phosphatase Total Protein Albumin Urine Creatinine Urine Total Protein 06/01/17 06/01/17 06/01/17 16:59 17:49 19:05 WBC RBC Hgb Hct MCH MCHC RDW Plt Count Lymph % (Auto) Cross % (Auto) Cross # Seg Neutrophils % Seg Neuts % (Manual) Lymphocytes % (Manual) Basophils % (Manual) Seg Neutrophils # Seg Neutrophils # Man Lymphocytes # (Manual) Basophils # (Manual) POC ABG pH POC ABG pCO2 POC ABG pO2 ABG Hemoglobin Oxyhemoglobin Sodium Potassium Chloride Carbon Dioxide BUN Creatinine Glucose POC Glucose 260 H 203 H 156 H Hemoglobin A1c Calcium Phosphorus Magnesium AST Alkaline Phosphatase Total Protein Albumin Urine Creatinine Urine Total Protein 06/02/17 06/02/17 06/02/17 00:09 01:06 02:31 WBC RBC Hgb Hct MCH MCHC RDW Plt Count Lymph % (Auto) Cross % (Auto) Cross # Seg Neutrophils % Seg Neuts % (Manual) Lymphocytes % (Manual) Basophils % (Manual) Seg Neutrophils # Seg Neutrophils # Man Lymphocytes # (Manual) Basophils # (Manual) POC ABG pH POC ABG pCO2 POC ABG pO2 ABG Hemoglobin Oxyhemoglobin Sodium Potassium Chloride Carbon Dioxide BUN Creatinine Glucose POC Glucose 137 H 146 H 182 H Hemoglobin A1c Calcium Phosphorus Magnesium AST Alkaline Phosphatase Total Protein Albumin Urine Creatinine Urine Total Protein 06/02/17 06/02/17 06/02/17 04:03 04:24 04:24 WBC 21.0 H RBC 3.62 L Hgb Hct 29.6 L MCH MCHC RDW 16.5 H Plt Count Lymph % (Auto) Cross % (Auto) Cross # Seg Neutrophils % Seg Neuts % (Manual) 98.0 H Lymphocytes % (Manual) 1.0 L Basophils % (Manual) Seg Neutrophils # Seg Neutrophils # Man 20.6 H Lymphocytes # (Manual) 0.2 L Basophils # (Manual) POC ABG pH POC ABG pCO2 POC ABG pO2 ABG Hemoglobin Oxyhemoglobin Sodium Potassium Chloride Carbon Dioxide 20 L BUN 36 H Creatinine 2.8 H Glucose 137 H POC Glucose 150 H Hemoglobin A1c Calcium 7.5 L Phosphorus 4.60 H Magnesium 1.50 L AST Alkaline Phosphatase 132 H Total Protein 4.1 L Albumin 1.7 L Urine Creatinine Urine Total Protein 06/02/17 06/02/17 06/02/17 05:01 05:14 06:20 WBC RBC Hgb Hct MCH MCHC RDW Plt Count Lymph % (Auto) Cross % (Auto) Cross # Seg Neutrophils % Seg Neuts % (Manual) Lymphocytes % (Manual) Basophils % (Manual) Seg Neutrophils # Seg Neutrophils # Man Lymphocytes # (Manual) Basophils # (Manual) POC ABG pH 7.517 H POC ABG pCO2 28.4 L POC ABG pO2 67 L ABG Hemoglobin Oxyhemoglobin Sodium Potassium Chloride Carbon Dioxide BUN Creatinine Glucose POC Glucose 137 H 163 H Hemoglobin A1c Calcium Phosphorus Magnesium AST Alkaline Phosphatase Total Protein Albumin Urine Creatinine Urine Total Protein 06/02/17 06/02/17 06/02/17 07:43 09:40 10:18 WBC RBC Hgb Hct MCH MCHC RDW Plt Count Lymph % (Auto) Cross % (Auto) Cross # Seg Neutrophils % Seg Neuts % (Manual) Lymphocytes % (Manual) Basophils % (Manual) Seg Neutrophils # Seg Neutrophils # Man Lymphocytes # (Manual) Basophils # (Manual) POC ABG pH POC ABG pCO2 POC ABG pO2 ABG Hemoglobin Oxyhemoglobin Sodium Potassium Chloride Carbon Dioxide BUN Creatinine Glucose POC Glucose 135 H 196 H Hemoglobin A1c Calcium Phosphorus Magnesium AST Alkaline Phosphatase Total Protein Albumin Urine Creatinine Urine Total Protein < 4 L 06/02/17 06/02/17 06/02/17 10:33 11:55 17:39 WBC RBC Hgb Hct MCH MCHC RDW Plt Count Lymph % (Auto) Cross % (Auto) Cross # Seg Neutrophils % Seg Neuts % (Manual) Lymphocytes % (Manual) Basophils % (Manual) Seg Neutrophils # Seg Neutrophils # Man Lymphocytes # (Manual) Basophils # (Manual) POC ABG pH POC ABG pCO2 POC ABG pO2 ABG Hemoglobin Oxyhemoglobin Sodium Potassium Chloride Carbon Dioxide BUN Creatinine Glucose POC Glucose 188 H 110 H 150 H Hemoglobin A1c Calcium Phosphorus Magnesium AST Alkaline Phosphatase Total Protein Albumin Urine Creatinine Urine Total Protein 06/02/17 06/02/17 06/03/17 18:12 21:32 02:02 WBC RBC Hgb Hct MCH MCHC RDW Plt Count Lymph % (Auto) Cross % (Auto) Cross # Seg Neutrophils % Seg Neuts % (Manual) Lymphocytes % (Manual) Basophils % (Manual) Seg Neutrophils # Seg Neutrophils # Man Lymphocytes # (Manual) Basophils # (Manual) POC ABG pH POC ABG pCO2 POC ABG pO2 ABG Hemoglobin Oxyhemoglobin Sodium Potassium Chloride Carbon Dioxide BUN Creatinine Glucose POC Glucose 131 H 143 H 191 H Hemoglobin A1c Calcium Phosphorus Magnesium AST Alkaline Phosphatase Total Protein Albumin Urine Creatinine Urine Total Protein 06/03/17 06/03/17 06/03/17 04:14 04:14 05:06 WBC 21.1 H RBC Hgb Hct MCH 27 L MCHC RDW 15.9 H Plt Count 447 H Lymph % (Auto) Cross % (Auto) Cross # Seg Neutrophils % Seg Neuts % (Manual) 94.0 H Lymphocytes % (Manual) 3.0 L Basophils % (Manual) Seg Neutrophils # Seg Neutrophils # Man 19.8 H Lymphocytes # (Manual) 0.6 L Basophils # (Manual) POC ABG pH POC ABG pCO2 28.6 L POC ABG pO2 112 H ABG Hemoglobin Oxyhemoglobin Sodium Potassium Chloride Carbon Dioxide 14 L BUN 45 H Creatinine 2.8 H Glucose 211 H POC Glucose Hemoglobin A1c Calcium 8.0 L Phosphorus Magnesium AST Alkaline Phosphatase Total Protein Albumin Urine Creatinine Urine Total Protein 06/03/17 06/03/17 06/03/17 06:00 10:20 13:43 WBC RBC Hgb Hct MCH MCHC RDW Plt Count Lymph % (Auto) Cross % (Auto) Cross # Seg Neutrophils % Seg Neuts % (Manual) Lymphocytes % (Manual) Basophils % (Manual) Seg Neutrophils # Seg Neutrophils # Man Lymphocytes # (Manual) Basophils # (Manual) POC ABG pH POC ABG pCO2 POC ABG pO2 ABG Hemoglobin Oxyhemoglobin Sodium Potassium Chloride Carbon Dioxide BUN Creatinine Glucose POC Glucose 224 H 226 H 296 H Hemoglobin A1c Calcium Phosphorus Magnesium AST Alkaline Phosphatase Total Protein Albumin Urine Creatinine Urine Total Protein 06/03/17 06/03/17 06/03/17 17:38 19:23 20:45 WBC RBC Hgb Hct MCH MCHC RDW Plt Count Lymph % (Auto) Cross % (Auto) Cross # Seg Neutrophils % Seg Neuts % (Manual) Lymphocytes % (Manual) Basophils % (Manual) Seg Neutrophils # Seg Neutrophils # Man Lymphocytes # (Manual) Basophils # (Manual) POC ABG pH POC ABG pCO2 POC ABG pO2 ABG Hemoglobin Oxyhemoglobin Sodium Potassium Chloride Carbon Dioxide BUN Creatinine Glucose POC Glucose 295 H 275 H 338 H Hemoglobin A1c Calcium Phosphorus Magnesium AST Alkaline Phosphatase Total Protein Albumin Urine Creatinine Urine Total Protein 06/03/17 06/03/17 06/04/17 21:50 23:08 00:16 WBC RBC Hgb Hct MCH MCHC RDW Plt Count Lymph % (Auto) Cross % (Auto) Cross # Seg Neutrophils % Seg Neuts % (Manual) Lymphocytes % (Manual) Basophils % (Manual) Seg Neutrophils # Seg Neutrophils # Man Lymphocytes # (Manual) Basophils # (Manual) POC ABG pH POC ABG pCO2 POC ABG pO2 ABG Hemoglobin Oxyhemoglobin Sodium Potassium Chloride Carbon Dioxide BUN Creatinine Glucose POC Glucose 223 H 214 H 226 H Hemoglobin A1c Calcium Phosphorus Magnesium AST Alkaline Phosphatase Total Protein Albumin Urine Creatinine Urine Total Protein 06/04/17 06/04/17 06/04/17 01:05 02:07 03:27 WBC RBC Hgb Hct MCH MCHC RDW Plt Count Lymph % (Auto) Cross % (Auto) Cross # Seg Neutrophils % Seg Neuts % (Manual) Lymphocytes % (Manual) Basophils % (Manual) Seg Neutrophils # Seg Neutrophils # Man Lymphocytes # (Manual) Basophils # (Manual) POC ABG pH POC ABG pCO2 POC ABG pO2 ABG Hemoglobin Oxyhemoglobin Sodium Potassium Chloride Carbon Dioxide BUN Creatinine Glucose POC Glucose 217 H 229 H 185 H Hemoglobin A1c Calcium Phosphorus Magnesium AST Alkaline Phosphatase Total Protein Albumin Urine Creatinine Urine Total Protein 06/04/17 06/04/17 06/04/17 03:52 04:05 04:05 WBC 19.6 H RBC Hgb Hct MCH 26 L MCHC RDW 15.6 H Plt Count 564 H Lymph % (Auto) 7.3 L Cross % (Auto) 10.8 H Cross # 2.1 H Seg Neutrophils % 81.4 H Seg Neuts % (Manual) Lymphocytes % (Manual) Basophils % (Manual) Seg Neutrophils # 15.9 H Seg Neutrophils # Man Lymphocytes # (Manual) Basophils # (Manual) POC ABG pH POC ABG pCO2 POC ABG pO2 ABG Hemoglobin Oxyhemoglobin Sodium Potassium Chloride Carbon Dioxide 17 L BUN 52 H Creatinine 2.5 H Glucose 163 H POC Glucose 181 H Hemoglobin A1c Calcium 7.9 L Phosphorus Magnesium AST Alkaline Phosphatase Total Protein Albumin Urine Creatinine Urine Total Protein 06/04/17 06/04/17 06/04/17 04:56 05:39 06:12 WBC RBC Hgb Hct MCH MCHC RDW Plt Count Lymph % (Auto) Cross % (Auto) Cross # Seg Neutrophils % Seg Neuts % (Manual) Lymphocytes % (Manual) Basophils % (Manual) Seg Neutrophils # Seg Neutrophils # Man Lymphocytes # (Manual) Basophils # (Manual) POC ABG pH 7.486 H POC ABG pCO2 26.8 L POC ABG pO2 ABG Hemoglobin Oxyhemoglobin Sodium Potassium Chloride Carbon Dioxide BUN Creatinine Glucose POC Glucose 208 H 225 H Hemoglobin A1c Calcium Phosphorus Magnesium AST Alkaline Phosphatase Total Protein Albumin Urine Creatinine Urine Total Protein 06/04/17 06/04/17 06/04/17 07:07 08:06 09:15 WBC RBC Hgb Hct MCH MCHC RDW Plt Count Lymph % (Auto) Cross % (Auto) Cross # Seg Neutrophils % Seg Neuts % (Manual) Lymphocytes % (Manual) Basophils % (Manual) Seg Neutrophils # Seg Neutrophils # Man Lymphocytes # (Manual) Basophils # (Manual) POC ABG pH POC ABG pCO2 POC ABG pO2 ABG Hemoglobin Oxyhemoglobin Sodium Potassium Chloride Carbon Dioxide BUN Creatinine Glucose POC Glucose 201 H 171 H 178 H Hemoglobin A1c Calcium Phosphorus Magnesium AST Alkaline Phosphatase Total Protein Albumin Urine Creatinine Urine Total Protein 06/04/17 06/04/17 06/04/17 10:16 12:22 17:21 WBC RBC Hgb Hct MCH MCHC RDW Plt Count Lymph % (Auto) Cross % (Auto) Cross # Seg Neutrophils % Seg Neuts % (Manual) Lymphocytes % (Manual) Basophils % (Manual) Seg Neutrophils # Seg Neutrophils # Man Lymphocytes # (Manual) Basophils # (Manual) POC ABG pH POC ABG pCO2 POC ABG pO2 ABG Hemoglobin Oxyhemoglobin Sodium Potassium Chloride Carbon Dioxide BUN Creatinine Glucose POC Glucose 191 H 188 H Hemoglobin A1c Calcium Phosphorus Magnesium AST Alkaline Phosphatase Total Protein Albumin Urine Creatinine 78.7 H Urine Total Protein 197 H 06/04/17 06/04/17 06/05/17 17:56 22:10 00:00 WBC RBC Hgb Hct MCH MCHC RDW Plt Count Lymph % (Auto) Cross % (Auto) Cross # Seg Neutrophils % Seg Neuts % (Manual) Lymphocytes % (Manual) Basophils % (Manual) Seg Neutrophils # Seg Neutrophils # Man Lymphocytes # (Manual) Basophils # (Manual) POC ABG pH POC ABG pCO2 POC ABG pO2 ABG Hemoglobin Oxyhemoglobin Sodium Potassium Chloride Carbon Dioxide 17 L BUN 55 H Creatinine 2.3 H Glucose 300 H POC Glucose 266 H 337 H Hemoglobin A1c Calcium 7.4 L Phosphorus Magnesium AST Alkaline Phosphatase Total Protein Albumin Urine Creatinine Urine Total Protein 06/05/17 06/05/17 06/05/17 03:26 04:11 05:13 WBC RBC Hgb Hct MCH MCHC RDW Plt Count Lymph % (Auto) Cross % (Auto) Cross # Seg Neutrophils % Seg Neuts % (Manual) Lymphocytes % (Manual) Basophils % (Manual) Seg Neutrophils # Seg Neutrophils # Man Lymphocytes # (Manual) Basophils # (Manual) POC ABG pH 7.586 H POC ABG pCO2 22.6 L POC ABG pO2 179 H ABG Hemoglobin Oxyhemoglobin Sodium Potassium Chloride Carbon Dioxide 19 L BUN 55 H Creatinine 2.2 H Glucose 226 H POC Glucose 220 H Hemoglobin A1c Calcium 7.7 L Phosphorus Magnesium AST Alkaline Phosphatase Total Protein Albumin Urine Creatinine Urine Total Protein 06/05/17 06/05/17 06/05/17 12:42 18:24 21:23 WBC RBC Hgb Hct MCH MCHC RDW Plt Count Lymph % (Auto) Cross % (Auto) Cross # Seg Neutrophils % Seg Neuts % (Manual) Lymphocytes % (Manual) Basophils % (Manual) Seg Neutrophils # Seg Neutrophils # Man Lymphocytes # (Manual) Basophils # (Manual) POC ABG pH POC ABG pCO2 POC ABG pO2 ABG Hemoglobin Oxyhemoglobin Sodium Potassium Chloride Carbon Dioxide BUN Creatinine Glucose POC Glucose 168 H 121 H 166 H Hemoglobin A1c Calcium Phosphorus Magnesium AST Alkaline Phosphatase Total Protein Albumin Urine Creatinine Urine Total Protein 06/06/17 06/06/17 06/06/17 00:14 04:11 06:19 WBC RBC Hgb Hct MCH MCHC RDW Plt Count Lymph % (Auto) Cross % (Auto) Cross # Seg Neutrophils % Seg Neuts % (Manual) Lymphocytes % (Manual) Basophils % (Manual) Seg Neutrophils # Seg Neutrophils # Man Lymphocytes # (Manual) Basophils # (Manual) POC ABG pH POC ABG pCO2 33.0 L POC ABG pO2 ABG Hemoglobin Oxyhemoglobin Sodium Potassium Chloride Carbon Dioxide BUN Creatinine Glucose POC Glucose 179 H 180 H Hemoglobin A1c Calcium Phosphorus Magnesium AST Alkaline Phosphatase Total Protein Albumin Urine Creatinine Urine Total Protein 06/06/17 06/06/17 06/06/17 12:19 18:38 20:01 WBC RBC Hgb Hct MCH MCHC RDW Plt Count Lymph % (Auto) Cross % (Auto) Cross # Seg Neutrophils % Seg Neuts % (Manual) Lymphocytes % (Manual) Basophils % (Manual) Seg Neutrophils # Seg Neutrophils # Man Lymphocytes # (Manual) Basophils # (Manual) POC ABG pH POC ABG pCO2 POC ABG pO2 ABG Hemoglobin Oxyhemoglobin Sodium Potassium Chloride Carbon Dioxide BUN Creatinine Glucose POC Glucose 123 H 56 L 65 L Hemoglobin A1c Calcium Phosphorus Magnesium AST Alkaline Phosphatase Total Protein Albumin Urine Creatinine Urine Total Protein 06/06/17 06/07/17 06/07/17 23:51 04:25 05:29 WBC RBC Hgb Hct MCH MCHC RDW Plt Count Lymph % (Auto) Cross % (Auto) Cross # Seg Neutrophils % Seg Neuts % (Manual) Lymphocytes % (Manual) Basophils % (Manual) Seg Neutrophils # Seg Neutrophils # Man Lymphocytes # (Manual) Basophils # (Manual) POC ABG pH 7.470 H POC ABG pCO2 33.6 L POC ABG pO2 ABG Hemoglobin Oxyhemoglobin Sodium Potassium Chloride Carbon Dioxide BUN Creatinine Glucose POC Glucose 118 H 183 H Hemoglobin A1c Calcium Phosphorus Magnesium AST Alkaline Phosphatase Total Protein Albumin Urine Creatinine Urine Total Protein 06/07/17 06/07/17 06/07/17 07:51 12:00 18:08 WBC RBC Hgb Hct MCH MCHC RDW Plt Count Lymph % (Auto) Cross % (Auto) Cross # Seg Neutrophils % Seg Neuts % (Manual) Lymphocytes % (Manual) Basophils % (Manual) Seg Neutrophils # Seg Neutrophils # Man Lymphocytes # (Manual) Basophils # (Manual) POC ABG pH POC ABG pCO2 POC ABG pO2 ABG Hemoglobin Oxyhemoglobin Sodium 135 L Potassium Chloride Carbon Dioxide 21 L BUN 50 H Creatinine 1.8 H Glucose 232 H POC Glucose 361 H 249 H Hemoglobin A1c Calcium 8.0 L Phosphorus Magnesium AST Alkaline Phosphatase Total Protein Albumin Urine Creatinine Urine Total Protein 06/07/17 06/08/17 06/08/17 23:53 05:25 11:50 WBC RBC Hgb Hct MCH MCHC RDW Plt Count Lymph % (Auto) Cross % (Auto) Cross # Seg Neutrophils % Seg Neuts % (Manual) Lymphocytes % (Manual) Basophils % (Manual) Seg Neutrophils # Seg Neutrophils # Man Lymphocytes # (Manual) Basophils # (Manual) POC ABG pH POC ABG pCO2 POC ABG pO2 ABG Hemoglobin Oxyhemoglobin Sodium Potassium Chloride Carbon Dioxide BUN Creatinine Glucose POC Glucose 190 H 136 H 166 H Hemoglobin A1c Calcium Phosphorus Magnesium AST Alkaline Phosphatase Total Protein Albumin Urine Creatinine Urine Total Protein 06/08/17 06/08/17 06/08/17 14:20 14:20 19:05 WBC 15.7 H RBC 3.49 L Hgb 9.4 L Hct 27.9 L MCH 27 L MCHC RDW 15.3 H Plt Count 590 H Lymph % (Auto) Cross % (Auto) Cross # Seg Neutrophils % Seg Neuts % (Manual) Lymphocytes % (Manual) Basophils % (Manual) Seg Neutrophils # Seg Neutrophils # Man Lymphocytes # (Manual) Basophils # (Manual) POC ABG pH POC ABG pCO2 POC ABG pO2 ABG Hemoglobin Oxyhemoglobin Sodium Potassium Chloride Carbon Dioxide BUN 55 H Creatinine 1.7 H Glucose 117 H POC Glucose 135 H Hemoglobin A1c Calcium Phosphorus Magnesium AST Alkaline Phosphatase Total Protein Albumin Urine Creatinine Urine Total Protein 06/08/17 06/08/17 06/09/17 21:52 23:55 04:18 WBC RBC Hgb Hct MCH MCHC RDW Plt Count Lymph % (Auto) Cross % (Auto) Cross # Seg Neutrophils % Seg Neuts % (Manual) Lymphocytes % (Manual) Basophils % (Manual) Seg Neutrophils # Seg Neutrophils # Man Lymphocytes # (Manual) Basophils # (Manual) POC ABG pH POC ABG pCO2 POC ABG pO2 ABG Hemoglobin Oxyhemoglobin Sodium Potassium Chloride Carbon Dioxide BUN 51 H Creatinine 1.6 H Glucose POC Glucose 186 H 209 H Hemoglobin A1c Calcium Phosphorus Magnesium AST Alkaline Phosphatase Total Protein Albumin Urine Creatinine Urine Total Protein 06/09/17 06/09/17 06/09/17 09:56 12:42 18:09 WBC RBC Hgb Hct MCH MCHC RDW Plt Count Lymph % (Auto) Cross % (Auto) Cross # Seg Neutrophils % Seg Neuts % (Manual) Lymphocytes % (Manual) Basophils % (Manual) Seg Neutrophils # Seg Neutrophils # Man Lymphocytes # (Manual) Basophils # (Manual) POC ABG pH POC ABG pCO2 POC ABG pO2 ABG Hemoglobin Oxyhemoglobin Sodium Potassium Chloride Carbon Dioxide BUN Creatinine Glucose POC Glucose 63 L 142 H 166 H Hemoglobin A1c Calcium Phosphorus Magnesium AST Alkaline Phosphatase Total Protein Albumin Urine Creatinine Urine Total Protein 06/09/17 06/10/17 06/10/17 23:39 03:24 04:28 WBC 15.1 H RBC 2.99 L Hgb 8.1 L Hct 23.6 L MCH 27 L MCHC 35 H RDW 15.4 H Plt Count 500 H Lymph % (Auto) Cross % (Auto) Cross # Seg Neutrophils % Seg Neuts % (Manual) Lymphocytes % (Manual) Basophils % (Manual) Seg Neutrophils # Seg Neutrophils # Man Lymphocytes # (Manual) Basophils # (Manual) POC ABG pH 7.461 H POC ABG pCO2 POC ABG pO2 131 H ABG Hemoglobin Oxyhemoglobin Sodium Potassium Chloride Carbon Dioxide BUN Creatinine Glucose POC Glucose 284 H Hemoglobin A1c Calcium Phosphorus Magnesium AST Alkaline Phosphatase Total Protein Albumin Urine Creatinine Urine Total Protein 06/10/17 06/10/17 06/10/17 04:28 05:10 12:41 WBC RBC Hgb Hct MCH MCHC RDW Plt Count Lymph % (Auto) Cross % (Auto) Cross # Seg Neutrophils % Seg Neuts % (Manual) Lymphocytes % (Manual) Basophils % (Manual) Seg Neutrophils # Seg Neutrophils # Man Lymphocytes # (Manual) Basophils # (Manual) POC ABG pH POC ABG pCO2 POC ABG pO2 ABG Hemoglobin Oxyhemoglobin Sodium Potassium Chloride Carbon Dioxide BUN 53 H Creatinine 1.8 H Glucose 185 H POC Glucose 190 H 50 L Hemoglobin A1c Calcium Phosphorus Magnesium AST Alkaline Phosphatase Total Protein Albumin Urine Creatinine Urine Total Protein 06/10/17 06/10/17 06/11/17 14:35 18:31 00:09 WBC RBC Hgb Hct MCH MCHC RDW Plt Count Lymph % (Auto) Cross % (Auto) Cross # Seg Neutrophils % Seg Neuts % (Manual) Lymphocytes % (Manual) Basophils % (Manual) Seg Neutrophils # Seg Neutrophils # Man Lymphocytes # (Manual) Basophils # (Manual) POC ABG pH POC ABG pCO2 POC ABG pO2 ABG Hemoglobin Oxyhemoglobin Sodium Potassium Chloride Carbon Dioxide BUN Creatinine Glucose POC Glucose 58 L 55 L 126 H Hemoglobin A1c Calcium Phosphorus Magnesium AST Alkaline Phosphatase Total Protein Albumin Urine Creatinine Urine Total Protein 06/11/17 06/11/17 06/11/17 05:32 06:01 06:03 WBC 15.6 H RBC 3.03 L Hgb 8.3 L Hct 24.0 L MCH MCHC 35 H RDW Plt Count 492 H Lymph % (Auto) Cross % (Auto) Cross # Seg Neutrophils % Seg Neuts % (Manual) Lymphocytes % (Manual) Basophils % (Manual) Seg Neutrophils # Seg Neutrophils # Man Lymphocytes # (Manual) Basophils # (Manual) POC ABG pH POC ABG pCO2 POC ABG pO2 ABG Hemoglobin Oxyhemoglobin Sodium Potassium Chloride Carbon Dioxide BUN 55 H Creatinine 1.8 H Glucose 228 H POC Glucose 219 H Hemoglobin A1c Calcium Phosphorus Magnesium AST Alkaline Phosphatase Total Protein Albumin Urine Creatinine Urine Total Protein 06/11/17 06/11/17 06/12/17 11:53 18:31 04:24 WBC 17.4 H RBC 2.90 L Hgb 8.0 L Hct 23.0 L MCH MCHC 35 H RDW Plt Count 460 H Lymph % (Auto) Cross % (Auto) Cross # Seg Neutrophils % Seg Neuts % (Manual) Lymphocytes % (Manual) Basophils % (Manual) Seg Neutrophils # Seg Neutrophils # Man Lymphocytes # (Manual) Basophils # (Manual) POC ABG pH POC ABG pCO2 POC ABG pO2 ABG Hemoglobin Oxyhemoglobin Sodium Potassium Chloride Carbon Dioxide BUN Creatinine Glucose POC Glucose 220 H 254 H Hemoglobin A1c Calcium Phosphorus Magnesium AST Alkaline Phosphatase Total Protein Albumin Urine Creatinine Urine Total Protein 06/12/17 06/12/17 06/12/17 05:37 05:40 06:00 WBC RBC Hgb Hct MCH MCHC RDW Plt Count Lymph % (Auto) Cross % (Auto) Cross # Seg Neutrophils % Seg Neuts % (Manual) Lymphocytes % (Manual) Basophils % (Manual) Seg Neutrophils # Seg Neutrophils # Man Lymphocytes # (Manual) Basophils # (Manual) POC ABG pH POC ABG pCO2 POC ABG pO2 ABG Hemoglobin Oxyhemoglobin Sodium Potassium Chloride Carbon Dioxide BUN Creatinine Glucose 41 L POC Glucose < 40 L < 40 L Hemoglobin A1c Calcium Phosphorus Magnesium AST Alkaline Phosphatase Total Protein Albumin Urine Creatinine Urine Total Protein 06/12/17 06/12/17 06/12/17 07:09 07:51 10:06 WBC RBC Hgb Hct MCH MCHC RDW Plt Count Lymph % (Auto) Cross % (Auto) Cross # Seg Neutrophils % Seg Neuts % (Manual) Lymphocytes % (Manual) Basophils % (Manual) Seg Neutrophils # Seg Neutrophils # Man Lymphocytes # (Manual) Basophils # (Manual) POC ABG pH POC ABG pCO2 POC ABG pO2 ABG Hemoglobin Oxyhemoglobin Sodium Potassium Chloride Carbon Dioxide BUN Creatinine Glucose POC Glucose 64 L 42 L 61 L Hemoglobin A1c Calcium Phosphorus Magnesium AST Alkaline Phosphatase Total Protein Albumin Urine Creatinine Urine Total Protein 06/12/17 06/12/17 06/12/17 11:16 14:04 18:03 WBC RBC Hgb Hct MCH MCHC RDW Plt Count Lymph % (Auto) Cross % (Auto) Cross # Seg Neutrophils % Seg Neuts % (Manual) Lymphocytes % (Manual) Basophils % (Manual) Seg Neutrophils # Seg Neutrophils # Man Lymphocytes # (Manual) Basophils # (Manual) POC ABG pH POC ABG pCO2 POC ABG pO2 ABG Hemoglobin Oxyhemoglobin Sodium Potassium Chloride Carbon Dioxide BUN Creatinine Glucose POC Glucose 67 L 112 H 116 H Hemoglobin A1c Calcium Phosphorus Magnesium AST Alkaline Phosphatase Total Protein Albumin Urine Creatinine Urine Total Protein 06/12/17 06/12/17 06/12/17 19:30 20:34 21:01 WBC RBC Hgb Hct MCH MCHC RDW Plt Count Lymph % (Auto) Cross % (Auto) Cross # Seg Neutrophils % Seg Neuts % (Manual) Lymphocytes % (Manual) Basophils % (Manual) Seg Neutrophils # Seg Neutrophils # Man Lymphocytes # (Manual) Basophils # (Manual) POC ABG pH POC ABG pCO2 POC ABG pO2 ABG Hemoglobin Oxyhemoglobin Sodium Potassium Chloride Carbon Dioxide BUN Creatinine Glucose POC Glucose 156 H 172 H 174 H Hemoglobin A1c Calcium Phosphorus Magnesium AST Alkaline Phosphatase Total Protein Albumin Urine Creatinine Urine Total Protein 06/12/17 06/12/17 06/13/17 22:00 23:23 00:27 WBC RBC Hgb Hct MCH MCHC RDW Plt Count Lymph % (Auto) Cross % (Auto) Cross # Seg Neutrophils % Seg Neuts % (Manual) Lymphocytes % (Manual) Basophils % (Manual) Seg Neutrophils # Seg Neutrophils # Man Lymphocytes # (Manual) Basophils # (Manual) POC ABG pH POC ABG pCO2 POC ABG pO2 ABG Hemoglobin Oxyhemoglobin Sodium Potassium Chloride Carbon Dioxide BUN Creatinine Glucose POC Glucose 240 H 286 H 182 H Hemoglobin A1c Calcium Phosphorus Magnesium AST Alkaline Phosphatase Total Protein Albumin Urine Creatinine Urine Total Protein 06/13/17 06/13/17 06/13/17 01:28 02:10 03:15 WBC RBC Hgb Hct MCH MCHC RDW Plt Count Lymph % (Auto) Cross % (Auto) Cross # Seg Neutrophils % Seg Neuts % (Manual) Lymphocytes % (Manual) Basophils % (Manual) Seg Neutrophils # Seg Neutrophils # Man Lymphocytes # (Manual) Basophils # (Manual) POC ABG pH POC ABG pCO2 POC ABG pO2 ABG Hemoglobin Oxyhemoglobin Sodium Potassium Chloride Carbon Dioxide BUN Creatinine Glucose POC Glucose 304 H 277 H 318 H Hemoglobin A1c Calcium Phosphorus Magnesium AST Alkaline Phosphatase Total Protein Albumin Urine Creatinine Urine Total Protein 06/13/17 06/13/17 06/13/17 04:15 05:10 05:38 WBC RBC Hgb Hct MCH MCHC RDW Plt Count Lymph % (Auto) Cross % (Auto) Cross # Seg Neutrophils % Seg Neuts % (Manual) Lymphocytes % (Manual) Basophils % (Manual) Seg Neutrophils # Seg Neutrophils # Man Lymphocytes # (Manual) Basophils # (Manual) POC ABG pH POC ABG pCO2 POC ABG pO2 ABG Hemoglobin Oxyhemoglobin Sodium Potassium Chloride Carbon Dioxide BUN Creatinine Glucose POC Glucose 294 H 275 H 315 H Hemoglobin A1c Calcium Phosphorus Magnesium AST Alkaline Phosphatase Total Protein Albumin Urine Creatinine Urine Total Protein 06/13/17 06/13/17 06/13/17 06:21 12:02 16:52 WBC RBC Hgb Hct MCH MCHC RDW Plt Count Lymph % (Auto) Cross % (Auto) Cross # Seg Neutrophils % Seg Neuts % (Manual) Lymphocytes % (Manual) Basophils % (Manual) Seg Neutrophils # Seg Neutrophils # Man Lymphocytes # (Manual) Basophils # (Manual) POC ABG pH POC ABG pCO2 POC ABG pO2 ABG Hemoglobin Oxyhemoglobin Sodium Potassium Chloride Carbon Dioxide BUN Creatinine Glucose POC Glucose 350 H 333 H 343 H Hemoglobin A1c Calcium Phosphorus Magnesium AST Alkaline Phosphatase Total Protein Albumin Urine Creatinine Urine Total Protein 06/14/17 06/14/17 06/14/17 00:01 04:18 04:18 WBC 29.6 H RBC 2.81 L Hgb 7.8 L Hct 23.2 L MCH MCHC RDW 15.3 H Plt Count Lymph % (Auto) Cross % (Auto) Cross # Seg Neutrophils % Seg Neuts % (Manual) Lymphocytes % (Manual) Basophils % (Manual) Seg Neutrophils # Seg Neutrophils # Man Lymphocytes # (Manual) Basophils # (Manual) POC ABG pH POC ABG pCO2 POC ABG pO2 ABG Hemoglobin Oxyhemoglobin Sodium Potassium Chloride Carbon Dioxide 20 L BUN 75 H Creatinine 2.2 H Glucose 364 H POC Glucose 297 H Hemoglobin A1c Calcium Phosphorus Magnesium AST Alkaline Phosphatase Total Protein Albumin Urine Creatinine Urine Total Protein 06/14/17 06/14/17 06/14/17 05:10 08:25 11:46 WBC RBC Hgb Hct MCH MCHC RDW Plt Count Lymph % (Auto) Cross % (Auto) Cross # Seg Neutrophils % Seg Neuts % (Manual) Lymphocytes % (Manual) Basophils % (Manual) Seg Neutrophils # Seg Neutrophils # Man Lymphocytes # (Manual) Basophils # (Manual) POC ABG pH POC ABG pCO2 POC ABG pO2 ABG Hemoglobin Oxyhemoglobin Sodium Potassium Chloride Carbon Dioxide BUN Creatinine Glucose POC Glucose 350 H 322 H 391 H Hemoglobin A1c Calcium Phosphorus Magnesium AST Alkaline Phosphatase Total Protein Albumin Urine Creatinine Urine Total Protein 06/14/17 06/15/17 06/15/17 18:04 00:16 Unknown WBC RBC Hgb Hct MCH MCHC RDW Plt Count Lymph % (Auto) Cross % (Auto) Cross # Seg Neutrophils % Seg Neuts % (Manual) Lymphocytes % (Manual) Basophils % (Manual) Seg Neutrophils # Seg Neutrophils # Man Lymphocytes # (Manual) Basophils # (Manual) POC ABG pH POC ABG pCO2 POC ABG pO2 ABG Hemoglobin 10.1 L Oxyhemoglobin 94.9 L Sodium Potassium Chloride Carbon Dioxide BUN Creatinine Glucose POC Glucose 384 H 435 H Hemoglobin A1c Calcium Phosphorus Magnesium AST Alkaline Phosphatase Total Protein Albumin Urine Creatinine Urine Total Protein
[2017-06-15] MEDS ORDERED: VANCOMYCIN PHARMACY TO DOSE IV SCH (13:00)
--- NOTE | 2017-06-15 13:43 | XRay Report ---
AP ABDOMEN: HISTORY: PEG tube placement. A PEG tube has been inserted since 05/30/17 which appears to terminate in the body of the stomach. The abdominal gas pattern is unremarkable. No masses or organomegaly is identified and there is no gross evidence of free air or fluid. No significant soft tissue calcifications are noted. Cholecystectomy changes are noted. IMPRESSION: Unremarkable abdomen.
[2017-06-15] MEDS ORDERED: VANCOMYCIN 1,250 MG in NACL 0.9% 250ML 250 ML IV ONE ×2 (14:00→20:00)
--- NOTE | 2017-06-15 14:00 | XRay Report ---
AP CHEST: HISTORY: Right lung pneumonia Hazy opacity at the right lung base has resolved since 06/11/17. Partial atelectasis has developed in the left lower lobe and medial right upper lobe. Mild cardiomegaly is stable. Normal pulmonary vascularity. IMPRESSION: Atelectatic changes as described.
--- NOTE | 2017-06-15 14:18 | Progress Note ---
Assessment and Plan Assessment and plan: Patient had 36-year-old -[place] female was admitted to the floor for seizure episode, altered mental status, acute hypoxic respiratory failure, patient was intubated in the emergency department patient had PEA and resuscitated successfully. Acute hypoxic respiratory failure -was intubated, on mechanical ventilation>96hrs, now tracheostomy to ventilator -Had PEG and Trach, 06/11/17 Acute encephalopathy with anoxic hypoxic brain injury - treat underlying cause Seizure disorder-complex partial - Patient is on IV Keppra - Cont Namenda -Neurology following Cardiomyopathy -Cardiology following Hyperosmolar hyperglycemic syndrome in Diabetes mellitus type 2. This had resolved - She was on Insulin drip, now on subcut Insulin Insulin dose increased to 25 Units bid be cause of hyperglycemia Hypoglycemia.episodes, Now resolved after given doses of 50%Dextrose and started on 5%dextrose. Discontinued 5%Dextrose Acute kidney injury. -Creatinine worsening :2.7 today Nephrology following Hypertension. BP stable on Hydralazine 50mg q 8hrs. DVT prophylaxis with Lovenox Disposition - Continue ICU care. poor prognosis -may need LTAC placement POOR PROGNOSIS History Interval history: Still intubated, Unresponsive, No fever PEG and Trach done 06/11 Hospitalist Physical - Physical exam Narrative exam: Gen appearance:Not in acute distress, lying in bed, obese HEENT: facial edema, Neck:supple, no JVD, Tracheostomy Lungs: Coarse breath sounds bilaterally, no wheeze Heart: S1 and S2 regular, no murmurs, rubs or gallop Abdomen: soft, non tender, non distended, normal bowel sounds, PEG tube present Ext: Edema both upper and lower extremities, no cyanosis,anasarca Neuro: Unresponsive - Constitutional Vitals: Temp Pulse Resp BP Pulse Ox 100.0 F H 81 29 H 123/77 99 06/15/17 12:00 06/15/17 12:54 06/15/17 12:54 06/15/17 12:54 06/15/17 12:54 General appearance: Present: other (unresponsive, on the ventilator) Results - Labs CBC & Chem 7: 06/14/17 04:18 06/15/17 11:20 Labs: Laboratory Last Values WBC 29.6 K/mm3 (4.5-11.0) H 06/14/17 04:18 RBC 2.81 M/mm3 (3.65-5.03) L 04/01/18 04:18 Hgb 7.8 gm/dl (10.1-14.3) L 06/14/17 04:18 Hct 23.2 % (30.3-42.9) L 06/14/17 04:18 MCV 82 fl (79-97) 06/14/17 04:18 MCH 28 pg (28-32) 06/14/17 04:18 MCHC 34 % (30-34) 06/14/17 04:18 RDW 15.3 % (13.2-15.2) H 06/14/17 04:18 Plt Count 298 K/mm3 (140-440) 06/14/17 04:18 Lymph % (Auto) 7.3 % (13.4-35.0) L 06/04/17 04:05 Crane % (Auto) 10.8 % (0.0-7.3) H 06/04/17 04:05 Eos % (Auto) 0.1 % (0.0-4.3) 06/04/17 04:05 Baso % (Auto) 0.4 % (0.0-1.8) 06/04/17 04:05 Lymph # 1.4 K/mm3 (1.2-5.4) 06/04/17 04:05 Crane # 2.1 K/mm3 (0.0-0.8) H 06/04/17 04:05 Eos # 0.0 K/mm3 (0.0-0.4) 06/04/17 04:05 Baso # 0.1 K/mm3 (0.0-0.1) 06/04/17 04:05 Add Manual Diff Complete 06/03/17 04:14 Total Counted 100 06/03/17 04:14 Seg Neutrophils % 81.4 % (40.0-70.0) H 06/04/17 04:05 Seg Neuts % (Manual) 94.0 % (40.0-70.0) H 06/03/17 04:14 Band Neutrophils % 0 % 06/03/17 04:14 Lymphocytes % (Manual) 3.0 % (13.4-35.0) L 06/03/17 04:14 Reactive Lymphs % (Man) 0 % 06/03/17 04:14 Monocytes % (Manual) 3.0 % (0.0-7.3) 06/03/17 04:14 Eosinophils % (Manual) 0 % (0.0-4.3) 06/03/17 04:14 Basophils % (Manual) 0 % (0.0-1.8) 06/03/17 04:14 Metamyelocytes % 0 % 06/03/17 04:14 Myelocytes % 0 % 06/03/17 04:14 Promyelocytes % 0 % 06/03/17 04:14 Blast Cells % 0 % 06/03/17 04:14 Nucleated RBC % Not Reportable 06/03/17 04:14 Seg Neutrophils # 15.9 K/mm3 (1.8-7.7) H 06/04/17 04:05 Seg Neutrophils # Man 19.8 K/mm3 (1.8-7.7) H 06/03/17 04:14 Band Neutrophils # 0.0 K/mm3 06/03/17 04:14 Lymphocytes # (Manual) 0.6 K/mm3 (1.2-5.4) L 06/03/17 04:14 Abs React Lymphs (Man) 0.0 K/mm3 06/03/17 04:14 Monocytes # (Manual) 0.6 K/mm3 (0.0-0.8) 06/03/17 04:14 Eosinophils # (Manual) 0.0 K/mm3 (0.0-0.4) 06/03/17 04:14 Basophils # (Manual) 0.0 K/mm3 (0.0-0.1) 06/03/17 04:14 Metamyelocytes # 0.0 K/mm3 06/03/17 04:14 Myelocytes # 0.0 K/mm3 06/03/17 04:14 Promyelocytes # 0.0 K/mm3 06/03/17 04:14 Blast Cells # 0.0 K/mm3 06/03/17 04:14 WBC Morphology Not Reportable 06/03/17 04:14 Hypersegmented Neuts Not Reportable 06/03/17 04:14 Hyposegmented Neuts Not Reportable 06/03/17 04:14 Hypogranular Neuts Not Reportable 06/03/17 04:14 Smudge Cells Not Reportable 06/03/17 04:14 Toxic Granulation Not Reportable 06/03/17 04:14 Toxic Vacuolation Not Reportable 06/03/17 04:14 Dohle Bodies Not Reportable 06/03/17 04:14 Pelger-Huet Anomaly Not Reportable 06/03/17 04:14 Don Rods Not Reportable 06/03/17 04:14 Platelet Estimate Consistent w auto 06/03/17 04:14 Clumped Platelets Not Reportable 06/03/17 04:14 Plt Clumps, EDTA Not Reportable 06/03/17 04:14 Large Platelets Not Reportable 06/03/17 04:14 Giant Platelets Not Reportable 06/03/17 04:14 Platelet Satelliting Not Reportable 06/03/17 04:14 Plt Morphology Comment Not Reportable 06/03/17 04:14 RBC Morphology Not Reportable 06/03/17 04:14 Dimorphic RBCs Not Reportable 06/03/17 04:14 Polychromasia Not Reportable 06/03/17 04:14 Hypochromasia Not Reportable 06/03/17 04:14 Poikilocytosis Not Reportable 06/03/17 04:14 Anisocytosis Not Reportable 06/03/17 04:14 Microcytosis Not Reportable 06/03/17 04:14 Macrocytosis Not Reportable 06/03/17 04:14 Spherocytes Not Reportable 06/03/17 04:14 Pappenheimer Bodies Not Reportable 06/03/17 04:14 Sickle Cells Not Reportable 06/03/17 04:14 Target Cells Not Reportable 06/03/17 04:14 Tear Drop Cells Not Reportable 06/03/17 04:14 Ovalocytes Not Reportable 06/03/17 04:14 Helmet Cells Not Reportable 06/03/17 04:14 Wade-Humbird Bodies Not Reportable 06/03/17 04:14 Isom Rings Not Reportable 06/03/17 04:14 Cecy Cells Not Reportable 06/03/17 04:14 Bite Cells Not Reportable 06/03/17 04:14 Crenated Cell Not Reportable 06/03/17 04:14 Elliptocytes Not Reportable 06/03/17 04:14 Acanthocytes (Spur) Not Reportable 06/03/17 04:14 Rouleaux Not Reportable 06/03/17 04:14 Hemoglobin C Crystals Not Reportable 06/03/17 04:14 Schistocytes Not Reportable 06/03/17 04:14 Malaria parasites Not Reportable 06/03/17 04:14 Fadi Bodies Not Reportable 06/03/17 04:14 Hem Pathologist Commnt No 06/03/17 04:14 PT 12.4 Sec. (12.2-14.9) 06/09/17 04:18 INR 0.88 (0.87-1.13) 06/09/17 04:18 POC ABG pH 7.461 (7.35-7.45) H 06/10/17 03:24 ABG pH 7.440 pH Units (7.350-7.450) 06/15/17 Unknown POC ABG pCO2 36.6 (35-45) 06/10/17 03:24 ABG pCO2 33.0 mm Hg 06/15/17 Unknown POC ABG pO2 131 (80-105) H 06/10/17 03:24 ABG pO2 84.3 mm Hg (80.0-90.0) 06/15/17 Unknown POC ABG HCO3 26.1 06/10/17 03:24 ABG HCO3 21.9 mmol/L (20.0-26.0) 06/15/17 Unknown POC ABG Total CO2 27 06/10/17 03:24 POC ABG O2 Sat 99 06/10/17 03:24 ABG O2 Saturation 97.0 % (95.0-99.0) 06/15/17 Unknown ABG O2 Content 13.6 (0.0-44) 06/15/17 Unknown POC ABG Base Excess 2 06/10/17 03:24 ABG Base Excess -1.7 mmol/L (-2.0-3.0) 06/15/17 Unknown ABG Hemoglobin 10.1 gm/dl (12.0-16.0) L 06/15/17 Unknown ABG Carboxyhemoglobin 1.7 % (0.0-5.0) 06/15/17 Unknown ABG Methemoglobin 0.5 % (0.0-1.5) 06/15/17 Unknown VBG pH 7.327 (7.320-7.420) 05/30/17 10:43 Oxyhemoglobin 94.9 % (95.0-99.0) L 06/15/17 Unknown FiO2 28 % 06/15/17 Unknown Sodium 137 mmol/L (137-145) 06/15/17 11:20 Potassium 4.6 mmol/L (3.6-5.0) 06/15/17 11:20 Chloride 99.5 mmol/L (98-107) 06/15/17 11:20 Carbon Dioxide 21 mmol/L (22-30) L 06/15/17 11:20 Anion Gap 21 mmol/L 06/15/17 11:20 BUN 88 mg/dL (7-17) H 06/15/17 11:20 Creatinine 2.7 mg/dL (0.7-1.2) H 06/15/17 11:20 Estimated GFR 24 ml/min 06/15/17 11:20 BUN/Creatinine Ratio 33 % 06/15/17 11:20 Glucose 302 mg/dL (65-100) H 06/15/17 11:20 POC Glucose 311 (70-105) H 06/15/17 11:47 Hemoglobin A1c 9.7 % (4-6) H 05/31/17 05:45 Calcium 9.0 mg/dL (8.4-10.2) 06/15/17 11:20 Phosphorus 4.40 mg/dL (2.5-4.5) 06/07/17 07:51 Magnesium 1.70 mg/dL (1.7-2.3) 06/07/17 07:51 Total Bilirubin 0.50 mg/dL (0.1-1.2) 06/02/17 04:24 AST 23 units/L (5-40) 06/02/17 04:24 ALT 14 units/L (7-56) 06/02/17 04:24 Alkaline Phosphatase 132 units/L (35-129) H 06/02/17 04:24 Total Protein 4.1 g/dL (6.3-8.2) L 06/02/17 04:24 Albumin 1.7 g/dL (3.9-5) L 06/02/17 04:24 Albumin/Globulin Ratio 0.7 % 06/02/17 04:24 Urine Color Yellow (Yellow) 05/30/17 15:04 Urine Turbidity Clear (Clear) 05/30/17 15:04 Urine pH 7.0 (5.0-7.0) 05/30/17 15:04 Ur Specific [place] 1.021 (1.003-1.030) 05/30/17 15:04 Urine Protein >500 mg/dL (Negative) 05/30/17 15:04 Urine Glucose (UA) >=500 mg/dL (Negative) 05/30/17 15:04 Urine Ketones Tr mg/dL (Negative) 05/30/17 15:04 Urine Blood Sm (Negative) 05/30/17 15:04 Urine Nitrite Neg (Negative) 05/30/17 15:04 Urine Bilirubin Neg (Negative) 05/30/17 15:04 Urine Urobilinogen < 2.0 mg/dL (<2.0) 05/30/17 15:04 Ur Leukocyte Esterase Neg (Negative) 05/30/17 15:04 Urine WBC (Auto) 2.0 /HPF (0.0-6.0) 05/30/17 15:04 Urine RBC (Auto) 5.0 /HPF (0.0-6.0) 05/30/17 15:04 Urine Bacteria (Auto) 1+ /HPF (Negative) 05/30/17 15:04 Urine Mucus Few /HPF 05/30/17 15:04 Urine Creatinine 78.7 mg/dL (0.1-20.0) H 06/04/17 17:21 Urine Sodium 10 mmol/L 06/02/17 10:18 Urine Total Protein 197 mg/dL (5-11.8) H 06/04/17 17:21 Urine Opiates Screen Presumptive negative 05/30/17 15:04 Urine Methadone Screen Presumptive negative 05/30/17 15:04 Ur Barbiturates Screen Presumptive negative 05/30/17 15:04 Levetiracetam 21.2 mcg/mL 05/30/17 08:59 Ur Phencyclidine Scrn Presumptive negative 05/30/17 15:04 Ur Amphetamines Screen Presumptive negative 05/30/17 15:04 U Benzodiazepines Scrn Presumptive negative 05/30/17 15:04 Urine Cocaine Screen Presumptive negative 05/30/17 15:04 U Marijuana (THC) Screen Presumptive positive 05/30/17 15:04 Drugs of Abuse Note Disclamer 05/30/17 15:04
[2017-06-15] MEDS: MAXIPIME 2 GM in NACL 0.9% 20 ML IV SCH (14:45)
--- NOTE | 2017-06-15 17:55 | Progress Note ---
Assessment and Plan Impression: 1. Hypoxic ischemic encephalopathy 2. Complex partial epilepsy with secondary generalization Plan: 1. Will stop scopolamine patch and give glycopyrrolate instead for secretions, since scopolamine can cause somnolence. 2. Will stop memantine since not helping, and try Ambien, which per reports can awaken patients in coma. Will give it as 10 mg every morning at 8 am. If it helps, would then increase it to tid, adjusting dose times depending on how long it lasts. Will try this for the 4 remaining week days this week. 30 min critical care time spent today with this patient. Discussed plan with her father regarding the memantine and Ambien, but not the scopolamine. Subjective Date of service: 06/15/17 Principal diagnosis: coma Interval history: HPI: This 36-year-old -German female seen again in follow-up for hypoxic ischemic coma due to cardiac arrest. There is been no change from the memantine I added a little over a week ago. Since that time she has had a tracheotomy and PEG tube placement. Objective - Exam Narrative Exam: Gen. appearance: Well-developed but borderline obese (per BMI) mid 30s - German female in NAD, status post tracheotomy, with father at bedside. Neurologic Exam: Mental Status: Does not obey commands or respond to voice or pain though keeps eyes open. Cranial Nerves: No blink to threat, right pupil 2 mm and a bit sluggish to light compared to brisker response on the left also at 2 mm, roving eye movements and at least partially positive doll's eyes, positive corneals bilaterally, no grimace to supraorbital pressure, coughs to tracheal suctioning but cannot reach back of throat with suction to check gags, will not protrude tongue to command. Cerebellar: Cannot assess. Motor Exam Upper Extremities: Decerebrate bilaterally to supraorbital pressure on either side. No withdrawal to nail bed pressure or palmar rub. Motor Exam Lower Extremities: Decerebrate bilaterally to supraorbital pressure. No wiggling of toes. No withdrawal to nail bed pressure or plantar rub. - Vital Sign Vital Signs - 12hr 06/15/17 06/15/17 06/15/17 06:00 06:02 06:03 Temperature Pulse Rate 97 H 96 H 97 H Respiratory 22 Rate Blood Pressure 150/78 141/77 141/77 O2 Sat by Pulse 96 Oximetry 06/15/17 06/15/17 06/15/17 06:30 07:00 07:30 Temperature Pulse Rate 95 H 97 H 97 H Respiratory 22 22 19 Rate Blood Pressure 146/73 141/74 137/70 O2 Sat by Pulse 97 96 95 Oximetry 06/15/17 06/15/17 06/15/17 08:00 08:03 08:30 Temperature 99.8 F H Pulse Rate 98 H 97 H 98 H Respiratory 28 H 24 27 H Rate Blood Pressure 157/79 157/79 139/72 O2 Sat by Pulse 100 99 96 Oximetry 06/15/17 06/15/17 06/15/17 09:00 09:30 09:55 Temperature Pulse Rate 94 H 92 H 93 H Respiratory 29 H 30 H Rate Blood Pressure 150/88 130/79 130/79 O2 Sat by Pulse 95 98 Oximetry 06/15/17 06/15/17 06/15/17 10:00 10:30 11:00 Temperature Pulse Rate 89 88 89 Respiratory 28 H 25 H 26 H Rate Blood Pressure 127/80 129/81 131/80 O2 Sat by Pulse 97 98 98 Oximetry 06/15/17 06/15/17 06/15/17 11:30 12:00 12:30 Temperature 100.0 F H Pulse Rate 90 86 85 Respiratory 27 H 27 H 32 H Rate Blood Pressure 127/75 116/76 123/77 O2 Sat by Pulse 97 96 98 Oximetry 06/15/17 06/15/17 06/15/17 12:54 13:00 13:30 Temperature Pulse Rate 81 81 83 Respiratory 29 H 34 H 28 H Rate Blood Pressure 123/77 107/73 120/74 O2 Sat by Pulse 99 97 99 Oximetry 06/15/17 06/15/17 06/15/17 14:00 14:30 14:44 Temperature Pulse Rate 91 H 95 H 93 H Respiratory 32 H 36 H Rate Blood Pressure 132/83 139/77 139/77 O2 Sat by Pulse 98 98 Oximetry 06/15/17 06/15/17 06/15/17 15:00 15:01 15:30 Temperature Pulse Rate 96 H 96 H 97 H Respiratory 36 H 35 H 36 H Rate Blood Pressure 134/75 139/77 142/77 O2 Sat by Pulse 97 100 98 Oximetry 06/15/17 06/15/17 06/15/17 16:00 16:30 17:00 Temperature 98.7 F Pulse Rate 96 H 97 H 98 H Respiratory 33 H 34 H 35 H Rate Blood Pressure 138/72 138/72 139/77 O2 Sat by Pulse 97 99 97 Oximetry 06/15/17 06/15/17 17:12 17:30 Temperature 98.7 F Pulse Rate 96 H Respiratory 28 H Rate Blood Pressure 134/76 O2 Sat by Pulse 96 Oximetry - Laboratory Findings CBC and BMP: 06/14/17 04:18 06/15/17 11:20 Abnormal Lab Findings: Abnormal Labs 05/30/17 05/30/17 05/30/17 07:48 07:48 08:32 WBC 11.5 H RBC Hgb Hct MCH 27 L MCHC RDW 16.3 H Plt Count Lymph % (Auto) [place] % (Auto) [place] # Seg Neutrophils % Seg Neuts % (Manual) Lymphocytes % (Manual) Basophils % (Manual) Seg Neutrophils # Seg Neutrophils # Man Lymphocytes # (Manual) Basophils # (Manual) POC ABG pH POC ABG pCO2 POC ABG pO2 ABG Hemoglobin Oxyhemoglobin Sodium 133 L Potassium Chloride 89.9 L Carbon Dioxide BUN 27 H Creatinine 2.0 H Glucose 741 H* POC Glucose > 500 H Hemoglobin A1c Calcium Phosphorus Magnesium AST Alkaline Phosphatase Total Protein Albumin Urine Creatinine Urine Total Protein 05/30/17 05/30/17 05/30/17 08:59 08:59 16:08 WBC 14.5 H RBC Hgb Hct MCH MCHC RDW 16.0 H Plt Count Lymph % (Auto) [place] % (Auto) [place] # Seg Neutrophils % Seg Neuts % (Manual) 95.0 H Lymphocytes % (Manual) 2.0 L Basophils % (Manual) 2.0 H Seg Neutrophils # Seg Neutrophils # Man 13.8 H Lymphocytes # (Manual) 0.3 L Basophils # (Manual) 0.3 H POC ABG pH POC ABG pCO2 POC ABG pO2 ABG Hemoglobin Oxyhemoglobin Sodium 134 L 135 L Potassium 3.2 L Chloride 90.8 L 93.6 L Carbon Dioxide BUN 28 H 30 H Creatinine 2.0 H 2.1 H Glucose 742 H* 567 H* POC Glucose Hemoglobin A1c Calcium Phosphorus Magnesium AST Alkaline Phosphatase 246 H Total Protein 5.6 L Albumin 2.9 L Urine Creatinine Urine Total Protein 05/30/17 05/30/17 05/30/17 16:35 17:55 18:59 WBC RBC Hgb Hct MCH MCHC RDW Plt Count Lymph % (Auto) [place] % (Auto) [place] # Seg Neutrophils % Seg Neuts % (Manual) Lymphocytes % (Manual) Basophils % (Manual) Seg Neutrophils # Seg Neutrophils # Man Lymphocytes # (Manual) Basophils # (Manual) POC ABG pH 7.544 H POC ABG pCO2 32.0 L POC ABG pO2 155 H ABG Hemoglobin Oxyhemoglobin Sodium Potassium 3.1 L Chloride 93.9 L Carbon Dioxide BUN 30 H Creatinine 2.0 H Glucose 561 H* POC Glucose 497 H Hemoglobin A1c Calcium Phosphorus Magnesium AST Alkaline Phosphatase Total Protein Albumin Urine Creatinine Urine Total Protein 05/30/17 05/30/17 05/30/17 19:31 19:31 21:38 WBC RBC Hgb Hct MCH MCHC RDW Plt Count Lymph % (Auto) [place] % (Auto) [place] # Seg Neutrophils % Seg Neuts % (Manual) Lymphocytes % (Manual) Basophils % (Manual) Seg Neutrophils # Seg Neutrophils # Man Lymphocytes # (Manual) Basophils # (Manual) POC ABG pH POC ABG pCO2 POC ABG pO2 ABG Hemoglobin Oxyhemoglobin Sodium 135 L Potassium 2.9 L* Chloride 93.8 L 95.4 L Carbon Dioxide 20 L BUN 29 H 30 H Creatinine 2.2 H 2.3 H Glucose 478 H 364 H POC Glucose Hemoglobin A1c Calcium Phosphorus 2.20 L D Magnesium 1.40 L AST 42 H Alkaline Phosphatase 177 H Total Protein 5.4 L Albumin 2.4 L Urine Creatinine Urine Total Protein 05/30/17 05/31/17 05/31/17 23:06 02:17 05:27 WBC RBC Hgb Hct MCH MCHC RDW Plt Count Lymph % (Auto) [place] % (Auto) [place] # Seg Neutrophils % Seg Neuts % (Manual) Lymphocytes % (Manual) Basophils % (Manual) Seg Neutrophils # Seg Neutrophils # Man Lymphocytes # (Manual) Basophils # (Manual) POC ABG pH 7.489 H POC ABG pCO2 POC ABG pO2 ABG Hemoglobin Oxyhemoglobin Sodium Potassium 3.2 L 3.5 L Chloride Carbon Dioxide BUN 30 H 31 H Creatinine 2.5 H 2.4 H Glucose 288 H 246 H POC Glucose Hemoglobin A1c Calcium 8.3 L Phosphorus Magnesium AST Alkaline Phosphatase Total Protein Albumin Urine Creatinine Urine Total Protein 05/31/17 05/31/17 05/31/17 05:45 05:45 05:45 WBC RBC Hgb Hct MCH MCHC RDW Plt Count Lymph % (Auto) [place] % (Auto) [place] # Seg Neutrophils % Seg Neuts % (Manual) Lymphocytes % (Manual) Basophils % (Manual) Seg Neutrophils # Seg Neutrophils # Man Lymphocytes # (Manual) Basophils # (Manual) POC ABG pH POC ABG pCO2 POC ABG pO2 ABG Hemoglobin Oxyhemoglobin Sodium Potassium Chloride Carbon Dioxide BUN 32 H 30 H Creatinine 2.5 H 2.6 H Glucose 266 H 271 H POC Glucose Hemoglobin A1c 9.7 H Calcium 8.3 L 8.2 L Phosphorus Magnesium AST Alkaline Phosphatase 145 H Total Protein 4.7 L Albumin 1.8 L Urine Creatinine Urine Total Protein 05/31/17 05/31/17 05/31/17 08:18 09:20 12:18 WBC RBC Hgb Hct MCH MCHC RDW Plt Count Lymph % (Auto) [place] % (Auto) [place] # Seg Neutrophils % Seg Neuts % (Manual) Lymphocytes % (Manual) Basophils % (Manual) Seg Neutrophils # Seg Neutrophils # Man Lymphocytes # (Manual) Basophils # (Manual) POC ABG pH POC ABG pCO2 POC ABG pO2 ABG Hemoglobin Oxyhemoglobin Sodium Potassium Chloride Carbon Dioxide BUN Creatinine Glucose POC Glucose 300 H 254 H 170 H Hemoglobin A1c Calcium Phosphorus Magnesium AST Alkaline Phosphatase Total Protein Albumin Urine Creatinine Urine Total Protein 05/31/17 05/31/17 05/31/17 14:09 14:17 14:27 WBC RBC Hgb Hct MCH MCHC RDW Plt Count Lymph % (Auto) [place] % (Auto) [place] # Seg Neutrophils % Seg Neuts % (Manual) Lymphocytes % (Manual) Basophils % (Manual) Seg Neutrophils # Seg Neutrophils # Man Lymphocytes # (Manual) Basophils # (Manual) POC ABG pH POC ABG pCO2 POC ABG pO2 ABG Hemoglobin Oxyhemoglobin Sodium Potassium 3.4 L Chloride 107.1 H Carbon Dioxide BUN 30 H Creatinine 2.6 H Glucose 38 L* POC Glucose < 40 L 189 H Hemoglobin A1c Calcium 7.6 L Phosphorus Magnesium AST Alkaline Phosphatase Total Protein Albumin Urine Creatinine Urine Total Protein 05/31/17 05/31/17 05/31/17 15:01 16:01 17:19 WBC RBC Hgb Hct MCH MCHC RDW Plt Count Lymph % (Auto) [place] % (Auto) [place] # Seg Neutrophils % Seg Neuts % (Manual) Lymphocytes % (Manual) Basophils % (Manual) Seg Neutrophils # Seg Neutrophils # Man Lymphocytes # (Manual) Basophils # (Manual) POC ABG pH POC ABG pCO2 POC ABG pO2 ABG Hemoglobin Oxyhemoglobin Sodium Potassium Chloride Carbon Dioxide BUN Creatinine Glucose POC Glucose 130 H 165 H 131 H Hemoglobin A1c Calcium Phosphorus Magnesium AST Alkaline Phosphatase Total Protein Albumin Urine Creatinine Urine Total Protein 05/31/17 05/31/17 05/31/17 18:46 19:54 20:36 WBC RBC Hgb Hct MCH MCHC RDW Plt Count Lymph % (Auto) [place] % (Auto) [place] # Seg Neutrophils % Seg Neuts % (Manual) Lymphocytes % (Manual) Basophils % (Manual) Seg Neutrophils # Seg Neutrophils # Man Lymphocytes # (Manual) Basophils # (Manual) POC ABG pH POC ABG pCO2 POC ABG pO2 ABG Hemoglobin Oxyhemoglobin Sodium Potassium Chloride Carbon Dioxide BUN 29 H Creatinine 2.4 H Glucose 124 H POC Glucose 128 H 157 H Hemoglobin A1c Calcium 7.9 L Phosphorus Magnesium AST Alkaline Phosphatase Total Protein Albumin Urine Creatinine Urine Total Protein 05/31/17 06/01/17 06/01/17 21:41 03:22 04:06 WBC RBC Hgb Hct MCH MCHC RDW Plt Count Lymph % (Auto) [place] % (Auto) [place] # Seg Neutrophils % Seg Neuts % (Manual) Lymphocytes % (Manual) Basophils % (Manual) Seg Neutrophils # Seg Neutrophils # Man Lymphocytes # (Manual) Basophils # (Manual) POC ABG pH POC ABG pCO2 POC ABG pO2 ABG Hemoglobin Oxyhemoglobin Sodium Potassium Chloride Carbon Dioxide 19 L BUN 29 H Creatinine 2.6 H Glucose 205 H POC Glucose 158 H 251 H Hemoglobin A1c Calcium 7.8 L Phosphorus Magnesium AST Alkaline Phosphatase Total Protein Albumin Urine Creatinine Urine Total Protein 06/01/17 06/01/17 06/01/17 04:30 09:15 09:59 WBC 19.7 H RBC Hgb 10.0 L Hct MCH 27 L MCHC RDW 17.1 H Plt Count Lymph % (Auto) [place] % (Auto) [place] # Seg Neutrophils % Seg Neuts % (Manual) Lymphocytes % (Manual) Basophils % (Manual) Seg Neutrophils # Seg Neutrophils # Man Lymphocytes # (Manual) Basophils # (Manual) POC ABG pH 7.464 H POC ABG pCO2 31.3 L POC ABG pO2 ABG Hemoglobin Oxyhemoglobin Sodium Potassium Chloride Carbon Dioxide BUN Creatinine Glucose POC Glucose 330 H Hemoglobin A1c Calcium Phosphorus Magnesium AST Alkaline Phosphatase Total Protein Albumin Urine Creatinine Urine Total Protein 06/01/17 06/01/17 06/01/17 11:36 12:25 13:43 WBC RBC Hgb Hct MCH MCHC RDW Plt Count Lymph % (Auto) [place] % (Auto) [place] # Seg Neutrophils % Seg Neuts % (Manual) Lymphocytes % (Manual) Basophils % (Manual) Seg Neutrophils # Seg Neutrophils # Man Lymphocytes # (Manual) Basophils # (Manual) POC ABG pH POC ABG pCO2 POC ABG pO2 ABG Hemoglobin Oxyhemoglobin Sodium Potassium Chloride Carbon Dioxide BUN Creatinine Glucose POC Glucose 431 H 434 H 445 H Hemoglobin A1c Calcium Phosphorus Magnesium AST Alkaline Phosphatase Total Protein Albumin Urine Creatinine Urine Total Protein 06/01/17 06/01/17 06/01/17 14:26 15:46 16:03 WBC RBC Hgb Hct MCH MCHC RDW Plt Count Lymph % (Auto) [place] % (Auto) [place] # Seg Neutrophils % Seg Neuts % (Manual) Lymphocytes % (Manual) Basophils % (Manual) Seg Neutrophils # Seg Neutrophils # Man Lymphocytes # (Manual) Basophils # (Manual) POC ABG pH POC ABG pCO2 POC ABG pO2 ABG Hemoglobin Oxyhemoglobin Sodium Potassium Chloride Carbon Dioxide BUN Creatinine Glucose POC Glucose 310 H 292 H 244 H Hemoglobin A1c Calcium Phosphorus Magnesium AST Alkaline Phosphatase Total Protein Albumin Urine Creatinine Urine Total Protein 06/01/17 06/01/17 06/01/17 16:59 17:49 19:05 WBC RBC Hgb Hct MCH MCHC RDW Plt Count Lymph % (Auto) [place] % (Auto) [place] # Seg Neutrophils % Seg Neuts % (Manual) Lymphocytes % (Manual) Basophils % (Manual) Seg Neutrophils # Seg Neutrophils # Man Lymphocytes # (Manual) Basophils # (Manual) POC ABG pH POC ABG pCO2 POC ABG pO2 ABG Hemoglobin Oxyhemoglobin Sodium Potassium Chloride Carbon Dioxide BUN Creatinine Glucose POC Glucose 260 H 203 H 156 H Hemoglobin A1c Calcium Phosphorus Magnesium AST Alkaline Phosphatase Total Protein Albumin Urine Creatinine Urine Total Protein 06/02/17 06/02/17 06/02/17 00:09 01:06 02:31 WBC RBC Hgb Hct MCH MCHC RDW Plt Count Lymph % (Auto) [place] % (Auto) [place] # Seg Neutrophils % Seg Neuts % (Manual) Lymphocytes % (Manual) Basophils % (Manual) Seg Neutrophils # Seg Neutrophils # Man Lymphocytes # (Manual) Basophils # (Manual) POC ABG pH POC ABG pCO2 POC ABG pO2 ABG Hemoglobin Oxyhemoglobin Sodium Potassium Chloride Carbon Dioxide BUN Creatinine Glucose POC Glucose 137 H 146 H 182 H Hemoglobin A1c Calcium Phosphorus Magnesium AST Alkaline Phosphatase Total Protein Albumin Urine Creatinine Urine Total Protein 06/02/17 06/02/17 06/02/17 04:03 04:24 04:24 WBC 21.0 H RBC 3.62 L Hgb Hct 29.6 L MCH MCHC RDW 16.5 H Plt Count Lymph % (Auto) [place] % (Auto) [place] # Seg Neutrophils % Seg Neuts % (Manual) 98.0 H Lymphocytes % (Manual) 1.0 L Basophils % (Manual) Seg Neutrophils # Seg Neutrophils # Man 20.6 H Lymphocytes # (Manual) 0.2 L Basophils # (Manual) POC ABG pH POC ABG pCO2 POC ABG pO2 ABG Hemoglobin Oxyhemoglobin Sodium Potassium Chloride Carbon Dioxide 20 L BUN 36 H Creatinine 2.8 H Glucose 137 H POC Glucose 150 H Hemoglobin A1c Calcium 7.5 L Phosphorus 4.60 H Magnesium 1.50 L AST Alkaline Phosphatase 132 H Total Protein 4.1 L Albumin 1.7 L Urine Creatinine Urine Total Protein 06/02/17 06/02/17 06/02/17 05:01 05:14 06:20 WBC RBC Hgb Hct MCH MCHC RDW Plt Count Lymph % (Auto) [place] % (Auto) [place] # Seg Neutrophils % Seg Neuts % (Manual) Lymphocytes % (Manual) Basophils % (Manual) Seg Neutrophils # Seg Neutrophils # Man Lymphocytes # (Manual) Basophils # (Manual) POC ABG pH 7.517 H POC ABG pCO2 28.4 L POC ABG pO2 67 L ABG Hemoglobin Oxyhemoglobin Sodium Potassium Chloride Carbon Dioxide BUN Creatinine Glucose POC Glucose 137 H 163 H Hemoglobin A1c Calcium Phosphorus Magnesium AST Alkaline Phosphatase Total Protein Albumin Urine Creatinine Urine Total Protein 06/02/17 06/02/17 06/02/17 07:43 09:40 10:18 WBC RBC Hgb Hct MCH MCHC RDW Plt Count Lymph % (Auto) [place] % (Auto) [place] # Seg Neutrophils % Seg Neuts % (Manual) Lymphocytes % (Manual) Basophils % (Manual) Seg Neutrophils # Seg Neutrophils # Man Lymphocytes # (Manual) Basophils # (Manual) POC ABG pH POC ABG pCO2 POC ABG pO2 ABG Hemoglobin Oxyhemoglobin Sodium Potassium Chloride Carbon Dioxide BUN Creatinine Glucose POC Glucose 135 H 196 H Hemoglobin A1c Calcium Phosphorus Magnesium AST Alkaline Phosphatase Total Protein Albumin Urine Creatinine Urine Total Protein < 4 L 06/02/17 06/02/17 06/02/17 10:33 11:55 17:39 WBC RBC Hgb Hct MCH MCHC RDW Plt Count Lymph % (Auto) [place] % (Auto) [place] # Seg Neutrophils % Seg Neuts % (Manual) Lymphocytes % (Manual) Basophils % (Manual) Seg Neutrophils # Seg Neutrophils # Man Lymphocytes # (Manual) Basophils # (Manual) POC ABG pH POC ABG pCO2 POC ABG pO2 ABG Hemoglobin Oxyhemoglobin Sodium Potassium Chloride Carbon Dioxide BUN Creatinine Glucose POC Glucose 188 H 110 H 150 H Hemoglobin A1c Calcium Phosphorus Magnesium AST Alkaline Phosphatase Total Protein Albumin Urine Creatinine Urine Total Protein 06/02/17 06/02/17 06/03/17 18:12 21:32 02:02 WBC RBC Hgb Hct MCH MCHC RDW Plt Count Lymph % (Auto) [place] % (Auto) [place] # Seg Neutrophils % Seg Neuts % (Manual) Lymphocytes % (Manual) Basophils % (Manual) Seg Neutrophils # Seg Neutrophils # Man Lymphocytes # (Manual) Basophils # (Manual) POC ABG pH POC ABG pCO2 POC ABG pO2 ABG Hemoglobin Oxyhemoglobin Sodium Potassium Chloride Carbon Dioxide BUN Creatinine Glucose POC Glucose 131 H 143 H 191 H Hemoglobin A1c Calcium Phosphorus Magnesium AST Alkaline Phosphatase Total Protein Albumin Urine Creatinine Urine Total Protein 06/03/17 06/03/17 06/03/17 04:14 04:14 05:06 WBC 21.1 H RBC Hgb Hct MCH 27 L MCHC RDW 15.9 H Plt Count 447 H Lymph % (Auto) [place] % (Auto) [place] # Seg Neutrophils % Seg Neuts % (Manual) 94.0 H Lymphocytes % (Manual) 3.0 L Basophils % (Manual) Seg Neutrophils # Seg Neutrophils # Man 19.8 H Lymphocytes # (Manual) 0.6 L Basophils # (Manual) POC ABG pH POC ABG pCO2 28.6 L POC ABG pO2 112 H ABG Hemoglobin Oxyhemoglobin Sodium Potassium Chloride Carbon Dioxide 14 L BUN 45 H Creatinine 2.8 H Glucose 211 H POC Glucose Hemoglobin A1c Calcium 8.0 L Phosphorus Magnesium AST Alkaline Phosphatase Total Protein Albumin Urine Creatinine Urine Total Protein 06/03/17 06/03/17 06/03/17 06:00 10:20 13:43 WBC RBC Hgb Hct MCH MCHC RDW Plt Count Lymph % (Auto) [place] % (Auto) [place] # Seg Neutrophils % Seg Neuts % (Manual) Lymphocytes % (Manual) Basophils % (Manual) Seg Neutrophils # Seg Neutrophils # Man Lymphocytes # (Manual) Basophils # (Manual) POC ABG pH POC ABG pCO2 POC ABG pO2 ABG Hemoglobin Oxyhemoglobin Sodium Potassium Chloride Carbon Dioxide BUN Creatinine Glucose POC Glucose 224 H 226 H 296 H Hemoglobin A1c Calcium Phosphorus Magnesium AST Alkaline Phosphatase Total Protein Albumin Urine Creatinine Urine Total Protein 06/03/17 06/03/17 06/03/17 17:38 19:23 20:45 WBC RBC Hgb Hct MCH MCHC RDW Plt Count Lymph % (Auto) [place] % (Auto) [place] # Seg Neutrophils % Seg Neuts % (Manual) Lymphocytes % (Manual) Basophils % (Manual) Seg Neutrophils # Seg Neutrophils # Man Lymphocytes # (Manual) Basophils # (Manual) POC ABG pH POC ABG pCO2 POC ABG pO2 ABG Hemoglobin Oxyhemoglobin Sodium Potassium Chloride Carbon Dioxide BUN Creatinine Glucose POC Glucose 295 H 275 H 338 H Hemoglobin A1c Calcium Phosphorus Magnesium AST Alkaline Phosphatase Total Protein Albumin Urine Creatinine Urine Total Protein 06/03/17 06/03/17 06/04/17 21:50 23:08 00:16 WBC RBC Hgb Hct MCH MCHC RDW Plt Count Lymph % (Auto) [place] % (Auto) [place] # Seg Neutrophils % Seg Neuts % (Manual) Lymphocytes % (Manual) Basophils % (Manual) Seg Neutrophils # Seg Neutrophils # Man Lymphocytes # (Manual) Basophils # (Manual) POC ABG pH POC ABG pCO2 POC ABG pO2 ABG Hemoglobin Oxyhemoglobin Sodium Potassium Chloride Carbon Dioxide BUN Creatinine Glucose POC Glucose 223 H 214 H 226 H Hemoglobin A1c Calcium Phosphorus Magnesium AST Alkaline Phosphatase Total Protein Albumin Urine Creatinine Urine Total Protein 06/04/17 06/04/17 06/04/17 01:05 02:07 03:27 WBC RBC Hgb Hct MCH MCHC RDW Plt Count Lymph % (Auto) [place] % (Auto) [place] # Seg Neutrophils % Seg Neuts % (Manual) Lymphocytes % (Manual) Basophils % (Manual) Seg Neutrophils # Seg Neutrophils # Man Lymphocytes # (Manual) Basophils # (Manual) POC ABG pH POC ABG pCO2 POC ABG pO2 ABG Hemoglobin Oxyhemoglobin Sodium Potassium Chloride Carbon Dioxide BUN Creatinine Glucose POC Glucose 217 H 229 H 185 H Hemoglobin A1c Calcium Phosphorus Magnesium AST Alkaline Phosphatase Total Protein Albumin Urine Creatinine Urine Total Protein 06/04/17 06/04/17 06/04/17 03:52 04:05 04:05 WBC 19.6 H RBC Hgb Hct MCH 26 L MCHC RDW 15.6 H Plt Count 564 H Lymph % (Auto) 7.3 L [place] % (Auto) 10.8 H [place] # 2.1 H Seg Neutrophils % 81.4 H Seg Neuts % (Manual) Lymphocytes % (Manual) Basophils % (Manual) Seg Neutrophils # 15.9 H Seg Neutrophils # Man Lymphocytes # (Manual) Basophils # (Manual) POC ABG pH POC ABG pCO2 POC ABG pO2 ABG Hemoglobin Oxyhemoglobin Sodium Potassium Chloride Carbon Dioxide 17 L BUN 52 H Creatinine 2.5 H Glucose 163 H POC Glucose 181 H Hemoglobin A1c Calcium 7.9 L Phosphorus Magnesium AST Alkaline Phosphatase Total Protein Albumin Urine Creatinine Urine Total Protein 06/04/17 06/04/17 06/04/17 04:56 05:39 06:12 WBC RBC Hgb Hct MCH MCHC RDW Plt Count Lymph % (Auto) [place] % (Auto) [place] # Seg Neutrophils % Seg Neuts % (Manual) Lymphocytes % (Manual) Basophils % (Manual) Seg Neutrophils # Seg Neutrophils # Man Lymphocytes # (Manual) Basophils # (Manual) POC ABG pH 7.486 H POC ABG pCO2 26.8 L POC ABG pO2 ABG Hemoglobin Oxyhemoglobin Sodium Potassium Chloride Carbon Dioxide BUN Creatinine Glucose POC Glucose 208 H 225 H Hemoglobin A1c Calcium Phosphorus Magnesium AST Alkaline Phosphatase Total Protein Albumin Urine Creatinine Urine Total Protein 06/04/17 06/04/17 06/04/17 07:07 08:06 09:15 WBC RBC Hgb Hct MCH MCHC RDW Plt Count Lymph % (Auto) [place] % (Auto) [place] # Seg Neutrophils % Seg Neuts % (Manual) Lymphocytes % (Manual) Basophils % (Manual) Seg Neutrophils # Seg Neutrophils # Man Lymphocytes # (Manual) Basophils # (Manual) POC ABG pH POC ABG pCO2 POC ABG pO2 ABG Hemoglobin Oxyhemoglobin Sodium Potassium Chloride Carbon Dioxide BUN Creatinine Glucose POC Glucose 201 H 171 H 178 H Hemoglobin A1c Calcium Phosphorus Magnesium AST Alkaline Phosphatase Total Protein Albumin Urine Creatinine Urine Total Protein 06/04/17 06/04/17 06/04/17 10:16 12:22 17:21 WBC RBC Hgb Hct MCH MCHC RDW Plt Count Lymph % (Auto) [place] % (Auto) [place] # Seg Neutrophils % Seg Neuts % (Manual) Lymphocytes % (Manual) Basophils % (Manual) Seg Neutrophils # Seg Neutrophils # Man Lymphocytes # (Manual) Basophils # (Manual) POC ABG pH POC ABG pCO2 POC ABG pO2 ABG Hemoglobin Oxyhemoglobin Sodium Potassium Chloride Carbon Dioxide BUN Creatinine Glucose POC Glucose 191 H 188 H Hemoglobin A1c Calcium Phosphorus Magnesium AST Alkaline Phosphatase Total Protein Albumin Urine Creatinine 78.7 H Urine Total Protein 197 H 06/04/17 06/04/17 06/05/17 17:56 22:10 00:00 WBC RBC Hgb Hct MCH MCHC RDW Plt Count Lymph % (Auto) [place] % (Auto) [place] # Seg Neutrophils % Seg Neuts % (Manual) Lymphocytes % (Manual) Basophils % (Manual) Seg Neutrophils # Seg Neutrophils # Man Lymphocytes # (Manual) Basophils # (Manual) POC ABG pH POC ABG pCO2 POC ABG pO2 ABG Hemoglobin Oxyhemoglobin Sodium Potassium Chloride Carbon Dioxide 17 L BUN 55 H Creatinine 2.3 H Glucose 300 H POC Glucose 266 H 337 H Hemoglobin A1c Calcium 7.4 L Phosphorus Magnesium AST Alkaline Phosphatase Total Protein Albumin Urine Creatinine Urine Total Protein 06/05/17 06/05/17 06/05/17 03:26 04:11 05:13 WBC RBC Hgb Hct MCH MCHC RDW Plt Count Lymph % (Auto) [place] % (Auto) [place] # Seg Neutrophils % Seg Neuts % (Manual) Lymphocytes % (Manual) Basophils % (Manual) Seg Neutrophils # Seg Neutrophils # Man Lymphocytes # (Manual) Basophils # (Manual) POC ABG pH 7.586 H POC ABG pCO2 22.6 L POC ABG pO2 179 H ABG Hemoglobin Oxyhemoglobin Sodium Potassium Chloride Carbon Dioxide 19 L BUN 55 H Creatinine 2.2 H Glucose 226 H POC Glucose 220 H Hemoglobin A1c Calcium 7.7 L Phosphorus Magnesium AST Alkaline Phosphatase Total Protein Albumin Urine Creatinine Urine Total Protein 06/05/17 06/05/17 06/05/17 12:42 18:24 21:23 WBC RBC Hgb Hct MCH MCHC RDW Plt Count Lymph % (Auto) [place] % (Auto) [place] # Seg Neutrophils % Seg Neuts % (Manual) Lymphocytes % (Manual) Basophils % (Manual) Seg Neutrophils # Seg Neutrophils # Man Lymphocytes # (Manual) Basophils # (Manual) POC ABG pH POC ABG pCO2 POC ABG pO2 ABG Hemoglobin Oxyhemoglobin Sodium Potassium Chloride Carbon Dioxide BUN Creatinine Glucose POC Glucose 168 H 121 H 166 H Hemoglobin A1c Calcium Phosphorus Magnesium AST Alkaline Phosphatase Total Protein Albumin Urine Creatinine Urine Total Protein 06/06/17 06/06/17 06/06/17 00:14 04:11 06:19 WBC RBC Hgb Hct MCH MCHC RDW Plt Count Lymph % (Auto) [place] % (Auto) [place] # Seg Neutrophils % Seg Neuts % (Manual) Lymphocytes % (Manual) Basophils % (Manual) Seg Neutrophils # Seg Neutrophils # Man Lymphocytes # (Manual) Basophils # (Manual) POC ABG pH POC ABG pCO2 33.0 L POC ABG pO2 ABG Hemoglobin Oxyhemoglobin Sodium Potassium Chloride Carbon Dioxide BUN Creatinine Glucose POC Glucose 179 H 180 H Hemoglobin A1c Calcium Phosphorus Magnesium AST Alkaline Phosphatase Total Protein Albumin Urine Creatinine Urine Total Protein 06/06/17 06/06/17 06/06/17 12:19 18:38 20:01 WBC RBC Hgb Hct MCH MCHC RDW Plt Count Lymph % (Auto) [place] % (Auto) [place] # Seg Neutrophils % Seg Neuts % (Manual) Lymphocytes % (Manual) Basophils % (Manual) Seg Neutrophils # Seg Neutrophils # Man Lymphocytes # (Manual) Basophils # (Manual) POC ABG pH POC ABG pCO2 POC ABG pO2 ABG Hemoglobin Oxyhemoglobin Sodium Potassium Chloride Carbon Dioxide BUN Creatinine Glucose POC Glucose 123 H 56 L 65 L Hemoglobin A1c Calcium Phosphorus Magnesium AST Alkaline Phosphatase Total Protein Albumin Urine Creatinine Urine Total Protein 06/06/17 06/07/17 06/07/17 23:51 04:25 05:29 WBC RBC Hgb Hct MCH MCHC RDW Plt Count Lymph % (Auto) [place] % (Auto) [place] # Seg Neutrophils % Seg Neuts % (Manual) Lymphocytes % (Manual) Basophils % (Manual) Seg Neutrophils # Seg Neutrophils # Man Lymphocytes # (Manual) Basophils # (Manual) POC ABG pH 7.470 H POC ABG pCO2 33.6 L POC ABG pO2 ABG Hemoglobin Oxyhemoglobin Sodium Potassium Chloride Carbon Dioxide BUN Creatinine Glucose POC Glucose 118 H 183 H Hemoglobin A1c Calcium Phosphorus Magnesium AST Alkaline Phosphatase Total Protein Albumin Urine Creatinine Urine Total Protein 06/07/17 06/07/17 06/07/17 07:51 12:00 18:08 WBC RBC Hgb Hct MCH MCHC RDW Plt Count Lymph % (Auto) [place] % (Auto) [place] # Seg Neutrophils % Seg Neuts % (Manual) Lymphocytes % (Manual) Basophils % (Manual) Seg Neutrophils # Seg Neutrophils # Man Lymphocytes # (Manual) Basophils # (Manual) POC ABG pH POC ABG pCO2 POC ABG pO2 ABG Hemoglobin Oxyhemoglobin Sodium 135 L Potassium Chloride Carbon Dioxide 21 L BUN 50 H Creatinine 1.8 H Glucose 232 H POC Glucose 361 H 249 H Hemoglobin A1c Calcium 8.0 L Phosphorus Magnesium AST Alkaline Phosphatase Total Protein Albumin Urine Creatinine Urine Total Protein 06/07/17 06/08/17 06/08/17 23:53 05:25 11:50 WBC RBC Hgb Hct MCH MCHC RDW Plt Count Lymph % (Auto) [place] % (Auto) [place] # Seg Neutrophils % Seg Neuts % (Manual) Lymphocytes % (Manual) Basophils % (Manual) Seg Neutrophils # Seg Neutrophils # Man Lymphocytes # (Manual) Basophils # (Manual) POC ABG pH POC ABG pCO2 POC ABG pO2 ABG Hemoglobin Oxyhemoglobin Sodium Potassium Chloride Carbon Dioxide BUN Creatinine Glucose POC Glucose 190 H 136 H 166 H Hemoglobin A1c Calcium Phosphorus Magnesium AST Alkaline Phosphatase Total Protein Albumin Urine Creatinine Urine Total Protein 06/08/17 06/08/17 06/08/17 14:20 14:20 19:05 WBC 15.7 H RBC 3.49 L Hgb 9.4 L Hct 27.9 L MCH 27 L MCHC RDW 15.3 H Plt Count 590 H Lymph % (Auto) [place] % (Auto) [place] # Seg Neutrophils % Seg Neuts % (Manual) Lymphocytes % (Manual) Basophils % (Manual) Seg Neutrophils # Seg Neutrophils # Man Lymphocytes # (Manual) Basophils # (Manual) POC ABG pH POC ABG pCO2 POC ABG pO2 ABG Hemoglobin Oxyhemoglobin Sodium Potassium Chloride Carbon Dioxide BUN 55 H Creatinine 1.7 H Glucose 117 H POC Glucose 135 H Hemoglobin A1c Calcium Phosphorus Magnesium AST Alkaline Phosphatase Total Protein Albumin Urine Creatinine Urine Total Protein 06/08/17 06/08/17 06/09/17 21:52 23:55 04:18 WBC RBC Hgb Hct MCH MCHC RDW Plt Count Lymph % (Auto) [place] % (Auto) [place] # Seg Neutrophils % Seg Neuts % (Manual) Lymphocytes % (Manual) Basophils % (Manual) Seg Neutrophils # Seg Neutrophils # Man Lymphocytes # (Manual) Basophils # (Manual) POC ABG pH POC ABG pCO2 POC ABG pO2 ABG Hemoglobin Oxyhemoglobin Sodium Potassium Chloride Carbon Dioxide BUN 51 H Creatinine 1.6 H Glucose POC Glucose 186 H 209 H Hemoglobin A1c Calcium Phosphorus Magnesium AST Alkaline Phosphatase Total Protein Albumin Urine Creatinine Urine Total Protein 06/09/17 06/09/17 06/09/17 09:56 12:42 18:09 WBC RBC Hgb Hct MCH MCHC RDW Plt Count Lymph % (Auto) [place] % (Auto) [place] # Seg Neutrophils % Seg Neuts % (Manual) Lymphocytes % (Manual) Basophils % (Manual) Seg Neutrophils # Seg Neutrophils # Man Lymphocytes # (Manual) Basophils # (Manual) POC ABG pH POC ABG pCO2 POC ABG pO2 ABG Hemoglobin Oxyhemoglobin Sodium Potassium Chloride Carbon Dioxide BUN Creatinine Glucose POC Glucose 63 L 142 H 166 H Hemoglobin A1c Calcium Phosphorus Magnesium AST Alkaline Phosphatase Total Protein Albumin Urine Creatinine Urine Total Protein 06/09/17 06/10/17 06/10/17 23:39 03:24 04:28 WBC 15.1 H RBC 2.99 L Hgb 8.1 L Hct 23.6 L MCH 27 L MCHC 35 H RDW 15.4 H Plt Count 500 H Lymph % (Auto) [place] % (Auto) [place] # Seg Neutrophils % Seg Neuts % (Manual) Lymphocytes % (Manual) Basophils % (Manual) Seg Neutrophils # Seg Neutrophils # Man Lymphocytes # (Manual) Basophils # (Manual) POC ABG pH 7.461 H POC ABG pCO2 POC ABG pO2 131 H ABG Hemoglobin Oxyhemoglobin Sodium Potassium Chloride Carbon Dioxide BUN Creatinine Glucose POC Glucose 284 H Hemoglobin A1c Calcium Phosphorus Magnesium AST Alkaline Phosphatase Total Protein Albumin Urine Creatinine Urine Total Protein 06/10/17 06/10/17 06/10/17 04:28 05:10 12:41 WBC RBC Hgb Hct MCH MCHC RDW Plt Count Lymph % (Auto) [place] % (Auto) [place] # Seg Neutrophils % Seg Neuts % (Manual) Lymphocytes % (Manual) Basophils % (Manual) Seg Neutrophils # Seg Neutrophils # Man Lymphocytes # (Manual) Basophils # (Manual) POC ABG pH POC ABG pCO2 POC ABG pO2 ABG Hemoglobin Oxyhemoglobin Sodium Potassium Chloride Carbon Dioxide BUN 53 H Creatinine 1.8 H Glucose 185 H POC Glucose 190 H 50 L Hemoglobin A1c Calcium Phosphorus Magnesium AST Alkaline Phosphatase Total Protein Albumin Urine Creatinine Urine Total Protein 06/10/17 06/10/17 06/11/17 14:35 18:31 00:09 WBC RBC Hgb Hct MCH MCHC RDW Plt Count Lymph % (Auto) [place] % (Auto) [place] # Seg Neutrophils % Seg Neuts % (Manual) Lymphocytes % (Manual) Basophils % (Manual) Seg Neutrophils # Seg Neutrophils # Man Lymphocytes # (Manual) Basophils # (Manual) POC ABG pH POC ABG pCO2 POC ABG pO2 ABG Hemoglobin Oxyhemoglobin Sodium Potassium Chloride Carbon Dioxide BUN Creatinine Glucose POC Glucose 58 L 55 L 126 H Hemoglobin A1c Calcium Phosphorus Magnesium AST Alkaline Phosphatase Total Protein Albumin Urine Creatinine Urine Total Protein 06/11/17 06/11/17 06/11/17 05:32 06:01 06:03 WBC 15.6 H RBC 3.03 L Hgb 8.3 L Hct 24.0 L MCH MCHC 35 H RDW Plt Count 492 H Lymph % (Auto) [place] % (Auto) [place] # Seg Neutrophils % Seg Neuts % (Manual) Lymphocytes % (Manual) Basophils % (Manual) Seg Neutrophils # Seg Neutrophils # Man Lymphocytes # (Manual) Basophils # (Manual) POC ABG pH POC ABG pCO2 POC ABG pO2 ABG Hemoglobin Oxyhemoglobin Sodium Potassium Chloride Carbon Dioxide BUN 55 H Creatinine 1.8 H Glucose 228 H POC Glucose 219 H Hemoglobin A1c Calcium Phosphorus Magnesium AST Alkaline Phosphatase Total Protein Albumin Urine Creatinine Urine Total Protein 06/11/17 06/11/17 06/12/17 11:53 18:31 04:24 WBC 17.4 H RBC 2.90 L Hgb 8.0 L Hct 23.0 L MCH MCHC 35 H RDW Plt Count 460 H Lymph % (Auto) [place] % (Auto) [place] # Seg Neutrophils % Seg Neuts % (Manual) Lymphocytes % (Manual) Basophils % (Manual) Seg Neutrophils # Seg Neutrophils # Man Lymphocytes # (Manual) Basophils # (Manual) POC ABG pH POC ABG pCO2 POC ABG pO2 ABG Hemoglobin Oxyhemoglobin Sodium Potassium Chloride Carbon Dioxide BUN Creatinine Glucose POC Glucose 220 H 254 H Hemoglobin A1c Calcium Phosphorus Magnesium AST Alkaline Phosphatase Total Protein Albumin Urine Creatinine Urine Total Protein 06/12/17 06/12/17 06/12/17 05:37 05:40 06:00 WBC RBC Hgb Hct MCH MCHC RDW Plt Count Lymph % (Auto) [place] % (Auto) [place] # Seg Neutrophils % Seg Neuts % (Manual) Lymphocytes % (Manual) Basophils % (Manual) Seg Neutrophils # Seg Neutrophils # Man Lymphocytes # (Manual) Basophils # (Manual) POC ABG pH POC ABG pCO2 POC ABG pO2 ABG Hemoglobin Oxyhemoglobin Sodium Potassium Chloride Carbon Dioxide BUN Creatinine Glucose 41 L POC Glucose < 40 L < 40 L Hemoglobin A1c Calcium Phosphorus Magnesium AST Alkaline Phosphatase Total Protein Albumin Urine Creatinine Urine Total Protein 06/12/17 06/12/17 06/12/17 07:09 07:51 10:06 WBC RBC Hgb Hct MCH MCHC RDW Plt Count Lymph % (Auto) [place] % (Auto) [place] # Seg Neutrophils % Seg Neuts % (Manual) Lymphocytes % (Manual) Basophils % (Manual) Seg Neutrophils # Seg Neutrophils # Man Lymphocytes # (Manual) Basophils # (Manual) POC ABG pH POC ABG pCO2 POC ABG pO2 ABG Hemoglobin Oxyhemoglobin Sodium Potassium Chloride Carbon Dioxide BUN Creatinine Glucose POC Glucose 64 L 42 L 61 L Hemoglobin A1c Calcium Phosphorus Magnesium AST Alkaline Phosphatase Total Protein Albumin Urine Creatinine Urine Total Protein 06/12/17 06/12/17 06/12/17 11:16 14:04 18:03 WBC RBC Hgb Hct MCH MCHC RDW Plt Count Lymph % (Auto) [place] % (Auto) [place] # Seg Neutrophils % Seg Neuts % (Manual) Lymphocytes % (Manual) Basophils % (Manual) Seg Neutrophils # Seg Neutrophils # Man Lymphocytes # (Manual) Basophils # (Manual) POC ABG pH POC ABG pCO2 POC ABG pO2 ABG Hemoglobin Oxyhemoglobin Sodium Potassium Chloride Carbon Dioxide BUN Creatinine Glucose POC Glucose 67 L 112 H 116 H Hemoglobin A1c Calcium Phosphorus Magnesium AST Alkaline Phosphatase Total Protein Albumin Urine Creatinine Urine Total Protein 06/12/17 06/12/17 06/12/17 19:30 20:34 21:01 WBC RBC Hgb Hct MCH MCHC RDW Plt Count Lymph % (Auto) [place] % (Auto) [place] # Seg Neutrophils % Seg Neuts % (Manual) Lymphocytes % (Manual) Basophils % (Manual) Seg Neutrophils # Seg Neutrophils # Man Lymphocytes # (Manual) Basophils # (Manual) POC ABG pH POC ABG pCO2 POC ABG pO2 ABG Hemoglobin Oxyhemoglobin Sodium Potassium Chloride Carbon Dioxide BUN Creatinine Glucose POC Glucose 156 H 172 H 174 H Hemoglobin A1c Calcium Phosphorus Magnesium AST Alkaline Phosphatase Total Protein Albumin Urine Creatinine Urine Total Protein 06/12/17 06/12/17 06/13/17 22:00 23:23 00:27 WBC RBC Hgb Hct MCH MCHC RDW Plt Count Lymph % (Auto) [place] % (Auto) [place] # Seg Neutrophils % Seg Neuts % (Manual) Lymphocytes % (Manual) Basophils % (Manual) Seg Neutrophils # Seg Neutrophils # Man Lymphocytes # (Manual) Basophils # (Manual) POC ABG pH POC ABG pCO2 POC ABG pO2 ABG Hemoglobin Oxyhemoglobin Sodium Potassium Chloride Carbon Dioxide BUN Creatinine Glucose POC Glucose 240 H 286 H 182 H Hemoglobin A1c Calcium Phosphorus Magnesium AST Alkaline Phosphatase Total Protein Albumin Urine Creatinine Urine Total Protein 06/13/17 06/13/17 06/13/17 01:28 02:10 03:15 WBC RBC Hgb Hct MCH MCHC RDW Plt Count Lymph % (Auto) [place] % (Auto) [place] # Seg Neutrophils % Seg Neuts % (Manual) Lymphocytes % (Manual) Basophils % (Manual) Seg Neutrophils # Seg Neutrophils # Man Lymphocytes # (Manual) Basophils # (Manual) POC ABG pH POC ABG pCO2 POC ABG pO2 ABG Hemoglobin Oxyhemoglobin Sodium Potassium Chloride Carbon Dioxide BUN Creatinine Glucose POC Glucose 304 H 277 H 318 H Hemoglobin A1c Calcium Phosphorus Magnesium AST Alkaline Phosphatase Total Protein Albumin Urine Creatinine Urine Total Protein 06/13/17 06/13/17 06/13/17 04:15 05:10 05:38 WBC RBC Hgb Hct MCH MCHC RDW Plt Count Lymph % (Auto) [place] % (Auto) [place] # Seg Neutrophils % Seg Neuts % (Manual) Lymphocytes % (Manual) Basophils % (Manual) Seg Neutrophils # Seg Neutrophils # Man Lymphocytes # (Manual) Basophils # (Manual) POC ABG pH POC ABG pCO2 POC ABG pO2 ABG Hemoglobin Oxyhemoglobin Sodium Potassium Chloride Carbon Dioxide BUN Creatinine Glucose POC Glucose 294 H 275 H 315 H Hemoglobin A1c Calcium Phosphorus Magnesium AST Alkaline Phosphatase Total Protein Albumin Urine Creatinine Urine Total Protein 06/13/17 06/13/17 06/13/17 06:21 12:02 16:52 WBC RBC Hgb Hct MCH MCHC RDW Plt Count Lymph % (Auto) [place] % (Auto) [place] # Seg Neutrophils % Seg Neuts % (Manual) Lymphocytes % (Manual) Basophils % (Manual) Seg Neutrophils # Seg Neutrophils # Man Lymphocytes # (Manual) Basophils # (Manual) POC ABG pH POC ABG pCO2 POC ABG pO2 ABG Hemoglobin Oxyhemoglobin Sodium Potassium Chloride Carbon Dioxide BUN Creatinine Glucose POC Glucose 350 H 333 H 343 H Hemoglobin A1c Calcium Phosphorus Magnesium AST Alkaline Phosphatase Total Protein Albumin Urine Creatinine Urine Total Protein 06/14/17 06/14/17 06/14/17 00:01 04:18 04:18 WBC 29.6 H RBC 2.81 L Hgb 7.8 L Hct 23.2 L MCH MCHC RDW 15.3 H Plt Count Lymph % (Auto) [place] % (Auto) [place] # Seg Neutrophils % Seg Neuts % (Manual) Lymphocytes % (Manual) Basophils % (Manual) Seg Neutrophils # Seg Neutrophils # Man Lymphocytes # (Manual) Basophils # (Manual) POC ABG pH POC ABG pCO2 POC ABG pO2 ABG Hemoglobin Oxyhemoglobin Sodium Potassium Chloride Carbon Dioxide 20 L BUN 75 H Creatinine 2.2 H Glucose 364 H POC Glucose 297 H Hemoglobin A1c Calcium Phosphorus Magnesium AST Alkaline Phosphatase Total Protein Albumin Urine Creatinine Urine Total Protein 06/14/17 06/14/17 06/14/17 05:10 08:25 11:46 WBC RBC Hgb Hct MCH MCHC RDW Plt Count Lymph % (Auto) [place] % (Auto) [place] # Seg Neutrophils % Seg Neuts % (Manual) Lymphocytes % (Manual) Basophils % (Manual) Seg Neutrophils # Seg Neutrophils # Man Lymphocytes # (Manual) Basophils # (Manual) POC ABG pH POC ABG pCO2 POC ABG pO2 ABG Hemoglobin Oxyhemoglobin Sodium Potassium Chloride Carbon Dioxide BUN Creatinine Glucose POC Glucose 350 H 322 H 391 H Hemoglobin A1c Calcium Phosphorus Magnesium AST Alkaline Phosphatase Total Protein Albumin Urine Creatinine Urine Total Protein 06/14/17 06/15/17 06/15/17 18:04 00:16 11:20 WBC RBC Hgb Hct MCH MCHC RDW Plt Count Lymph % (Auto) [place] % (Auto) [place] # Seg Neutrophils % Seg Neuts % (Manual) Lymphocytes % (Manual) Basophils % (Manual) Seg Neutrophils # Seg Neutrophils # Man Lymphocytes # (Manual) Basophils # (Manual) POC ABG pH POC ABG pCO2 POC ABG pO2 ABG Hemoglobin Oxyhemoglobin Sodium Potassium Chloride Carbon Dioxide 21 L BUN 88 H Creatinine 2.7 H Glucose 302 H POC Glucose 384 H 435 H Hemoglobin A1c Calcium Phosphorus Magnesium AST Alkaline Phosphatase Total Protein Albumin Urine Creatinine Urine Total Protein 06/15/17 06/15/17 06/15/17 11:47 17:35 Unknown WBC RBC Hgb Hct MCH MCHC RDW Plt Count Lymph % (Auto) [place] % (Auto) [place] # Seg Neutrophils % Seg Neuts % (Manual) Lymphocytes % (Manual) Basophils % (Manual) Seg Neutrophils # Seg Neutrophils # Man Lymphocytes # (Manual) Basophils # (Manual) POC ABG pH POC ABG pCO2 POC ABG pO2 ABG Hemoglobin 10.1 L Oxyhemoglobin 94.9 L Sodium Potassium Chloride Carbon Dioxide BUN Creatinine Glucose POC Glucose 311 H 428 H Hemoglobin A1c Calcium Phosphorus Magnesium AST Alkaline Phosphatase Total Protein Albumin Urine Creatinine Urine Total Protein
[2017-06-15] MEDS: ROBINUL FEEDTUBE SCH (20:57)
[2017-06-15] MEDS ORDERED: AMBIEN FEEDTUBE SCH (22:00)
[2017-06-16] MEDS: HumaLOG SUB-Q SCH ×4 (00:06→18:46)
[2017-06-16] MEDS: APRESOLINE PO SCH ×3 (05:15→21:05)
[2017-06-16] MEDS: ISORDIL TITRADOSE PO SCH ×3 (05:16→21:06)
[2017-06-16 06:39] LABS: Hematocrit 21.6 % (30.3-42.9); Hemoglobin 7.2 gm/dl (10.1-14.3); Mean Corpuscular HGB Conc 34 % (30-34); Mean Corpuscular Hemoglobin 27 pg (28-32); Mean Corpuscular Volume 80 fl (79-97); Platelet Count 418 K/mm3 (140-440); Red Blood Count 2.68 M/mm3 (3.65-5.03); Red Cell Distribution Width 15.9 % (13.2-15.2)
[2017-06-16 07:06] LABS: Calcium 8.4 mg/dL (8.4-10.2)
[2017-06-16] MEDS ORDERED: LASIX PO SCH (10:00)
[2017-06-16] MEDS: PEPCID PO SCH (10:04)
[2017-06-16] MEDS: LOVENOX SUB-Q SCH (10:04)
[2017-06-16] MEDS: ALDACTONE PO SCH (10:04)
[2017-06-16] MEDS: ROBINUL FEEDTUBE SCH ×3 (10:05→20:57)
[2017-06-16] MEDS: COREG PO SCH ×2 (10:05→21:06)
[2017-06-16] MEDS: AMBIEN FEEDTUBE SCH (10:05)
[2017-06-16] MEDS: MAXIPIME 2 GM in NACL 0.9% 20 ML IV SCH (10:06)
[2017-06-16] MEDS: KEPPRA PO SCH ×2 (10:06→21:06)
--- NOTE | 2017-06-16 10:24 | Progress Note ---
Assessment and Plan Fever. RUL atelectasis right lung. Nursing reported some secretions suspicious for NGT feeding Status post cardiac arrest Acute respiratory failure. Metabolic encephalopathy. See neurology comments Seizures clinically, she appears to be controlled Recommendations Continue ABX Aspiration precautions May benefit from bronchoscopy, prior to full weaning attempts Neurology follow-up. Appreciate recommendations Check cultures , monitor fever. DVT prophylaxis PPI prophylaxis We'll discuss bronchoscopy with family available. Nothing by mouth after midnight and schedule for tomorrow at 11 AM in the meantime Critical care time was 31 minutes of [id number] evaluation and coordination of care Subjective Date of service: 06/16/17 Principal diagnosis: coma Interval history: Trach, nonresponsive Objective Vital Signs - 12hr 06/15/17 06/15/17 06/15/17 22:30 23:01 23:11 Temperature Pulse Rate 98 H 97 H 98 H Respiratory 34 H 31 H 12 Rate Blood Pressure 139/74 138/76 139/74 O2 Sat by Pulse 97 98 99 Oximetry 06/15/17 06/15/17 06/15/17 23:21 23:31 23:47 Temperature 99.0 F Pulse Rate 98 H Respiratory 19 Rate Blood Pressure 141/78 O2 Sat by Pulse 99 96 Oximetry 06/16/17 06/16/17 06/16/17 00:00 00:03 00:30 Temperature Pulse Rate 98 H 98 H 98 H Respiratory 16 17 22 Rate Blood Pressure 138/78 141/78 143/80 O2 Sat by Pulse 98 99 97 Oximetry 06/16/17 06/16/17 06/16/17 01:00 01:30 02:00 Temperature Pulse Rate 98 H 99 H 99 H Respiratory 23 22 19 Rate Blood Pressure 142/80 143/80 146/80 O2 Sat by Pulse 97 96 100 Oximetry 06/16/17 06/16/17 06/16/17 02:30 03:00 03:08 Temperature Pulse Rate 99 H 100 H 99 H Respiratory 21 20 5 L Rate Blood Pressure 146/81 144/82 144/80 O2 Sat by Pulse 97 97 99 Oximetry 06/16/17 06/16/17 06/16/17 03:30 04:00 04:03 Temperature 99.3 F Pulse Rate 99 H 96 H Respiratory 19 20 Rate Blood Pressure 140/75 140/75 O2 Sat by Pulse 98 Oximetry 06/16/17 06/16/17 06/16/17 04:31 05:00 05:15 Temperature Pulse Rate 93 H 93 H 90 Respiratory 17 19 Rate Blood Pressure 166/93 150/73 150/73 O2 Sat by Pulse 98 98 Oximetry 06/16/17 06/16/17 06/16/17 05:16 05:31 06:00 Temperature Pulse Rate 90 90 89 Respiratory 18 17 Rate Blood Pressure 150/73 150/73 157/67 O2 Sat by Pulse 99 99 Oximetry 06/16/17 06/16/17 06/16/17 06:20 07:49 08:00 Temperature 98.2 F Pulse Rate 89 90 Respiratory 24 24 Rate Blood Pressure 157/67 136/76 O2 Sat by Pulse 99 99 Oximetry 06/16/17 06/16/17 06/16/17 09:46 10:04 10:05 Temperature Pulse Rate 90 89 90 Respiratory Rate Blood Pressure 130/75 135/82 135/82 O2 Sat by Pulse 100 Oximetry Constitutional: no acute distress, other Eyes: non-icteric ENT: oropharynx moist, other (trach in position) Neck: supple Effort: normal Ascultation: Bilateral: clear, diminished breath sounds Percussion: Bilateral: not dull Cardiovascular: regular rate and rhythm Gastrointestinal: normoactive bowel sounds, soft, non-tender Integumentary: normal Extremities: no cyanosis, no edema, pink and warm Neurologic: unable to assess, other (unresponsive, rolls her eyes sporadically no posturing) Psychiatric: other CBC and BMP: 06/16/17 06:33 06/16/17 06:33 ABG, PT/INR, D-dimer: ABG POC ABG pH 7.461 (7.35-7.45) H 06/10/17 03:24 ABG pH 7.440 pH Units (7.350-7.450) 06/15/17 Unknown POC ABG pCO2 36.6 (35-45) 06/10/17 03:24 ABG pCO2 33.0 mm Hg 06/15/17 Unknown POC ABG pO2 131 (80-105) H 06/10/17 03:24 ABG pO2 84.3 mm Hg (80.0-90.0) 06/15/17 Unknown POC ABG HCO3 26.1 06/10/17 03:24 POC ABG Total CO2 27 06/10/17 03:24 POC ABG O2 Sat 99 06/10/17 03:24 ABG O2 Saturation 97.0 % (95.0-99.0) 06/15/17 Unknown PT/INR, D-dimer PT 12.4 Sec. (12.2-14.9) 06/09/17 04:18 INR 0.88 (0.87-1.13) 06/09/17 04:18 Abnormal lab findings: Abnormal Labs 05/30/17 05/30/17 05/30/17 07:48 07:48 08:32 WBC 11.5 H RBC Hgb Hct MCH 27 L MCHC RDW 16.3 H Plt Count Lymph % (Auto) [place] % (Auto) [place] # Seg Neutrophils % Seg Neuts % (Manual) Lymphocytes % (Manual) Basophils % (Manual) Seg Neutrophils # Seg Neutrophils # Man Lymphocytes # (Manual) Basophils # (Manual) POC ABG pH POC ABG pCO2 POC ABG pO2 ABG Hemoglobin Oxyhemoglobin Sodium 133 L Potassium Chloride 89.9 L Carbon Dioxide BUN 27 H Creatinine 2.0 H Glucose 741 H* POC Glucose > 500 H Hemoglobin A1c Calcium Phosphorus Magnesium AST Alkaline Phosphatase Total Protein Albumin Urine Creatinine Urine Total Protein 05/30/17 05/30/17 05/30/17 08:59 08:59 16:08 WBC 14.5 H RBC Hgb Hct MCH MCHC RDW 16.0 H Plt Count Lymph % (Auto) [place] % (Auto) [place] # Seg Neutrophils % Seg Neuts % (Manual) 95.0 H Lymphocytes % (Manual) 2.0 L Basophils % (Manual) 2.0 H Seg Neutrophils # Seg Neutrophils # Man 13.8 H Lymphocytes # (Manual) 0.3 L Basophils # (Manual) 0.3 H POC ABG pH POC ABG pCO2 POC ABG pO2 ABG Hemoglobin Oxyhemoglobin Sodium 134 L 135 L Potassium 3.2 L Chloride 90.8 L 93.6 L Carbon Dioxide BUN 28 H 30 H Creatinine 2.0 H 2.1 H Glucose 742 H* 567 H* POC Glucose Hemoglobin A1c Calcium Phosphorus Magnesium AST Alkaline Phosphatase 246 H Total Protein 5.6 L Albumin 2.9 L Urine Creatinine Urine Total Protein 05/30/17 05/30/17 05/30/17 16:35 17:55 18:59 WBC RBC Hgb Hct MCH MCHC RDW Plt Count Lymph % (Auto) [place] % (Auto) [place] # Seg Neutrophils % Seg Neuts % (Manual) Lymphocytes % (Manual) Basophils % (Manual) Seg Neutrophils # Seg Neutrophils # Man Lymphocytes # (Manual) Basophils # (Manual) POC ABG pH 7.544 H POC ABG pCO2 32.0 L POC ABG pO2 155 H ABG Hemoglobin Oxyhemoglobin Sodium Potassium 3.1 L Chloride 93.9 L Carbon Dioxide BUN 30 H Creatinine 2.0 H Glucose 561 H* POC Glucose 497 H Hemoglobin A1c Calcium Phosphorus Magnesium AST Alkaline Phosphatase Total Protein Albumin Urine Creatinine Urine Total Protein 05/30/17 05/30/17 05/30/17 19:31 19:31 21:38 WBC RBC Hgb Hct MCH MCHC RDW Plt Count Lymph % (Auto) [place] % (Auto) [place] # Seg Neutrophils % Seg Neuts % (Manual) Lymphocytes % (Manual) Basophils % (Manual) Seg Neutrophils # Seg Neutrophils # Man Lymphocytes # (Manual) Basophils # (Manual) POC ABG pH POC ABG pCO2 POC ABG pO2 ABG Hemoglobin Oxyhemoglobin Sodium 135 L Potassium 2.9 L* Chloride 93.8 L 95.4 L Carbon Dioxide 20 L BUN 29 H 30 H Creatinine 2.2 H 2.3 H Glucose 478 H 364 H POC Glucose Hemoglobin A1c Calcium Phosphorus 2.20 L D Magnesium 1.40 L AST 42 H Alkaline Phosphatase 177 H Total Protein 5.4 L Albumin 2.4 L Urine Creatinine Urine Total Protein 05/30/17 05/31/17 05/31/17 23:06 02:17 05:27 WBC RBC Hgb Hct MCH MCHC RDW Plt Count Lymph % (Auto) [place] % (Auto) [place] # Seg Neutrophils % Seg Neuts % (Manual) Lymphocytes % (Manual) Basophils % (Manual) Seg Neutrophils # Seg Neutrophils # Man Lymphocytes # (Manual) Basophils # (Manual) POC ABG pH 7.489 H POC ABG pCO2 POC ABG pO2 ABG Hemoglobin Oxyhemoglobin Sodium Potassium 3.2 L 3.5 L Chloride Carbon Dioxide BUN 30 H 31 H Creatinine 2.5 H 2.4 H Glucose 288 H 246 H POC Glucose Hemoglobin A1c Calcium 8.3 L Phosphorus Magnesium AST Alkaline Phosphatase Total Protein Albumin Urine Creatinine Urine Total Protein 05/31/17 05/31/17 05/31/17 05:45 05:45 05:45 WBC RBC Hgb Hct MCH MCHC RDW Plt Count Lymph % (Auto) [place] % (Auto) [place] # Seg Neutrophils % Seg Neuts % (Manual) Lymphocytes % (Manual) Basophils % (Manual) Seg Neutrophils # Seg Neutrophils # Man Lymphocytes # (Manual) Basophils # (Manual) POC ABG pH POC ABG pCO2 POC ABG pO2 ABG Hemoglobin Oxyhemoglobin Sodium Potassium Chloride Carbon Dioxide BUN 32 H 30 H Creatinine 2.5 H 2.6 H Glucose 266 H 271 H POC Glucose Hemoglobin A1c 9.7 H Calcium 8.3 L 8.2 L Phosphorus Magnesium AST Alkaline Phosphatase 145 H Total Protein 4.7 L Albumin 1.8 L Urine Creatinine Urine Total Protein 05/31/17 05/31/17 05/31/17 08:18 09:20 12:18 WBC RBC Hgb Hct MCH MCHC RDW Plt Count Lymph % (Auto) [place] % (Auto) [place] # Seg Neutrophils % Seg Neuts % (Manual) Lymphocytes % (Manual) Basophils % (Manual) Seg Neutrophils # Seg Neutrophils # Man Lymphocytes # (Manual) Basophils # (Manual) POC ABG pH POC ABG pCO2 POC ABG pO2 ABG Hemoglobin Oxyhemoglobin Sodium Potassium Chloride Carbon Dioxide BUN Creatinine Glucose POC Glucose 300 H 254 H 170 H Hemoglobin A1c Calcium Phosphorus Magnesium AST Alkaline Phosphatase Total Protein Albumin Urine Creatinine Urine Total Protein 05/31/17 05/31/17 05/31/17 14:09 14:17 14:27 WBC RBC Hgb Hct MCH MCHC RDW Plt Count Lymph % (Auto) [place] % (Auto) [place] # Seg Neutrophils % Seg Neuts % (Manual) Lymphocytes % (Manual) Basophils % (Manual) Seg Neutrophils # Seg Neutrophils # Man Lymphocytes # (Manual) Basophils # (Manual) POC ABG pH POC ABG pCO2 POC ABG pO2 ABG Hemoglobin Oxyhemoglobin Sodium Potassium 3.4 L Chloride 107.1 H Carbon Dioxide BUN 30 H Creatinine 2.6 H Glucose 38 L* POC Glucose < 40 L 189 H Hemoglobin A1c Calcium 7.6 L Phosphorus Magnesium AST Alkaline Phosphatase Total Protein Albumin Urine Creatinine Urine Total Protein 05/31/17 05/31/17 05/31/17 15:01 16:01 17:19 WBC RBC Hgb Hct MCH MCHC RDW Plt Count Lymph % (Auto) [place] % (Auto) [place] # Seg Neutrophils % Seg Neuts % (Manual) Lymphocytes % (Manual) Basophils % (Manual) Seg Neutrophils # Seg Neutrophils # Man Lymphocytes # (Manual) Basophils # (Manual) POC ABG pH POC ABG pCO2 POC ABG pO2 ABG Hemoglobin Oxyhemoglobin Sodium Potassium Chloride Carbon Dioxide BUN Creatinine Glucose POC Glucose 130 H 165 H 131 H Hemoglobin A1c Calcium Phosphorus Magnesium AST Alkaline Phosphatase Total Protein Albumin Urine Creatinine Urine Total Protein 05/31/17 05/31/17 05/31/17 18:46 19:54 20:36 WBC RBC Hgb Hct MCH MCHC RDW Plt Count Lymph % (Auto) [place] % (Auto) [place] # Seg Neutrophils % Seg Neuts % (Manual) Lymphocytes % (Manual) Basophils % (Manual) Seg Neutrophils # Seg Neutrophils # Man Lymphocytes # (Manual) Basophils # (Manual) POC ABG pH POC ABG pCO2 POC ABG pO2 ABG Hemoglobin Oxyhemoglobin Sodium Potassium Chloride Carbon Dioxide BUN 29 H Creatinine 2.4 H Glucose 124 H POC Glucose 128 H 157 H Hemoglobin A1c Calcium 7.9 L Phosphorus Magnesium AST Alkaline Phosphatase Total Protein Albumin Urine Creatinine Urine Total Protein 05/31/17 06/01/17 06/01/17 21:41 03:22 04:06 WBC RBC Hgb Hct MCH MCHC RDW Plt Count Lymph % (Auto) [place] % (Auto) [place] # Seg Neutrophils % Seg Neuts % (Manual) Lymphocytes % (Manual) Basophils % (Manual) Seg Neutrophils # Seg Neutrophils # Man Lymphocytes # (Manual) Basophils # (Manual) POC ABG pH POC ABG pCO2 POC ABG pO2 ABG Hemoglobin Oxyhemoglobin Sodium Potassium Chloride Carbon Dioxide 19 L BUN 29 H Creatinine 2.6 H Glucose 205 H POC Glucose 158 H 251 H Hemoglobin A1c Calcium 7.8 L Phosphorus Magnesium AST Alkaline Phosphatase Total Protein Albumin Urine Creatinine Urine Total Protein 06/01/17 06/01/17 06/01/17 04:30 09:15 09:59 WBC 19.7 H RBC Hgb 10.0 L Hct MCH 27 L MCHC RDW 17.1 H Plt Count Lymph % (Auto) [place] % (Auto) [place] # Seg Neutrophils % Seg Neuts % (Manual) Lymphocytes % (Manual) Basophils % (Manual) Seg Neutrophils # Seg Neutrophils # Man Lymphocytes # (Manual) Basophils # (Manual) POC ABG pH 7.464 H POC ABG pCO2 31.3 L POC ABG pO2 ABG Hemoglobin Oxyhemoglobin Sodium Potassium Chloride Carbon Dioxide BUN Creatinine Glucose POC Glucose 330 H Hemoglobin A1c Calcium Phosphorus Magnesium AST Alkaline Phosphatase Total Protein Albumin Urine Creatinine Urine Total Protein 06/01/17 06/01/17 06/01/17 11:36 12:25 13:43 WBC RBC Hgb Hct MCH MCHC RDW Plt Count Lymph % (Auto) [place] % (Auto) [place] # Seg Neutrophils % Seg Neuts % (Manual) Lymphocytes % (Manual) Basophils % (Manual) Seg Neutrophils # Seg Neutrophils # Man Lymphocytes # (Manual) Basophils # (Manual) POC ABG pH POC ABG pCO2 POC ABG pO2 ABG Hemoglobin Oxyhemoglobin Sodium Potassium Chloride Carbon Dioxide BUN Creatinine Glucose POC Glucose 431 H 434 H 445 H Hemoglobin A1c Calcium Phosphorus Magnesium AST Alkaline Phosphatase Total Protein Albumin Urine Creatinine Urine Total Protein 06/01/17 06/01/17 06/01/17 14:26 15:46 16:03 WBC RBC Hgb Hct MCH MCHC RDW Plt Count Lymph % (Auto) [place] % (Auto) [place] # Seg Neutrophils % Seg Neuts % (Manual) Lymphocytes % (Manual) Basophils % (Manual) Seg Neutrophils # Seg Neutrophils # Man Lymphocytes # (Manual) Basophils # (Manual) POC ABG pH POC ABG pCO2 POC ABG pO2 ABG Hemoglobin Oxyhemoglobin Sodium Potassium Chloride Carbon Dioxide BUN Creatinine Glucose POC Glucose 310 H 292 H 244 H Hemoglobin A1c Calcium Phosphorus Magnesium AST Alkaline Phosphatase Total Protein Albumin Urine Creatinine Urine Total Protein 06/01/17 06/01/17 06/01/17 16:59 17:49 19:05 WBC RBC Hgb Hct MCH MCHC RDW Plt Count Lymph % (Auto) [place] % (Auto) [place] # Seg Neutrophils % Seg Neuts % (Manual) Lymphocytes % (Manual) Basophils % (Manual) Seg Neutrophils # Seg Neutrophils # Man Lymphocytes # (Manual) Basophils # (Manual) POC ABG pH POC ABG pCO2 POC ABG pO2 ABG Hemoglobin Oxyhemoglobin Sodium Potassium Chloride Carbon Dioxide BUN Creatinine Glucose POC Glucose 260 H 203 H 156 H Hemoglobin A1c Calcium Phosphorus Magnesium AST Alkaline Phosphatase Total Protein Albumin Urine Creatinine Urine Total Protein 06/02/17 06/02/17 06/02/17 00:09 01:06 02:31 WBC RBC Hgb Hct MCH MCHC RDW Plt Count Lymph % (Auto) [place] % (Auto) [place] # Seg Neutrophils % Seg Neuts % (Manual) Lymphocytes % (Manual) Basophils % (Manual) Seg Neutrophils # Seg Neutrophils # Man Lymphocytes # (Manual) Basophils # (Manual) POC ABG pH POC ABG pCO2 POC ABG pO2 ABG Hemoglobin Oxyhemoglobin Sodium Potassium Chloride Carbon Dioxide BUN Creatinine Glucose POC Glucose 137 H 146 H 182 H Hemoglobin A1c Calcium Phosphorus Magnesium AST Alkaline Phosphatase Total Protein Albumin Urine Creatinine Urine Total Protein 06/02/17 06/02/17 06/02/17 04:03 04:24 04:24 WBC 21.0 H RBC 3.62 L Hgb Hct 29.6 L MCH MCHC RDW 16.5 H Plt Count Lymph % (Auto) [place] % (Auto) [place] # Seg Neutrophils % Seg Neuts % (Manual) 98.0 H Lymphocytes % (Manual) 1.0 L Basophils % (Manual) Seg Neutrophils # Seg Neutrophils # Man 20.6 H Lymphocytes # (Manual) 0.2 L Basophils # (Manual) POC ABG pH POC ABG pCO2 POC ABG pO2 ABG Hemoglobin Oxyhemoglobin Sodium Potassium Chloride Carbon Dioxide 20 L BUN 36 H Creatinine 2.8 H Glucose 137 H POC Glucose 150 H Hemoglobin A1c Calcium 7.5 L Phosphorus 4.60 H Magnesium 1.50 L AST Alkaline Phosphatase 132 H Total Protein 4.1 L Albumin 1.7 L Urine Creatinine Urine Total Protein 06/02/17 06/02/17 06/02/17 05:01 05:14 06:20 WBC RBC Hgb Hct MCH MCHC RDW Plt Count Lymph % (Auto) [place] % (Auto) [place] # Seg Neutrophils % Seg Neuts % (Manual) Lymphocytes % (Manual) Basophils % (Manual) Seg Neutrophils # Seg Neutrophils # Man Lymphocytes # (Manual) Basophils # (Manual) POC ABG pH 7.517 H POC ABG pCO2 28.4 L POC ABG pO2 67 L ABG Hemoglobin Oxyhemoglobin Sodium Potassium Chloride Carbon Dioxide BUN Creatinine Glucose POC Glucose 137 H 163 H Hemoglobin A1c Calcium Phosphorus Magnesium AST Alkaline Phosphatase Total Protein Albumin Urine Creatinine Urine Total Protein 06/02/17 06/02/17 06/02/17 07:43 09:40 10:18 WBC RBC Hgb Hct MCH MCHC RDW Plt Count Lymph % (Auto) [place] % (Auto) [place] # Seg Neutrophils % Seg Neuts % (Manual) Lymphocytes % (Manual) Basophils % (Manual) Seg Neutrophils # Seg Neutrophils # Man Lymphocytes # (Manual) Basophils # (Manual) POC ABG pH POC ABG pCO2 POC ABG pO2 ABG Hemoglobin Oxyhemoglobin Sodium Potassium Chloride Carbon Dioxide BUN Creatinine Glucose POC Glucose 135 H 196 H Hemoglobin A1c Calcium Phosphorus Magnesium AST Alkaline Phosphatase Total Protein Albumin Urine Creatinine Urine Total Protein < 4 L 06/02/17 06/02/17 06/02/17 10:33 11:55 17:39 WBC RBC Hgb Hct MCH MCHC RDW Plt Count Lymph % (Auto) [place] % (Auto) [place] # Seg Neutrophils % Seg Neuts % (Manual) Lymphocytes % (Manual) Basophils % (Manual) Seg Neutrophils # Seg Neutrophils # Man Lymphocytes # (Manual) Basophils # (Manual) POC ABG pH POC ABG pCO2 POC ABG pO2 ABG Hemoglobin Oxyhemoglobin Sodium Potassium Chloride Carbon Dioxide BUN Creatinine Glucose POC Glucose 188 H 110 H 150 H Hemoglobin A1c Calcium Phosphorus Magnesium AST Alkaline Phosphatase Total Protein Albumin Urine Creatinine Urine Total Protein 06/02/17 06/02/17 06/03/17 18:12 21:32 02:02 WBC RBC Hgb Hct MCH MCHC RDW Plt Count Lymph % (Auto) [place] % (Auto) [place] # Seg Neutrophils % Seg Neuts % (Manual) Lymphocytes % (Manual) Basophils % (Manual) Seg Neutrophils # Seg Neutrophils # Man Lymphocytes # (Manual) Basophils # (Manual) POC ABG pH POC ABG pCO2 POC ABG pO2 ABG Hemoglobin Oxyhemoglobin Sodium Potassium Chloride Carbon Dioxide BUN Creatinine Glucose POC Glucose 131 H 143 H 191 H Hemoglobin A1c Calcium Phosphorus Magnesium AST Alkaline Phosphatase Total Protein Albumin Urine Creatinine Urine Total Protein 06/03/17 06/03/17 06/03/17 04:14 04:14 05:06 WBC 21.1 H RBC Hgb Hct MCH 27 L MCHC RDW 15.9 H Plt Count 447 H Lymph % (Auto) [place] % (Auto) [place] # Seg Neutrophils % Seg Neuts % (Manual) 94.0 H Lymphocytes % (Manual) 3.0 L Basophils % (Manual) Seg Neutrophils # Seg Neutrophils # Man 19.8 H Lymphocytes # (Manual) 0.6 L Basophils # (Manual) POC ABG pH POC ABG pCO2 28.6 L POC ABG pO2 112 H ABG Hemoglobin Oxyhemoglobin Sodium Potassium Chloride Carbon Dioxide 14 L BUN 45 H Creatinine 2.8 H Glucose 211 H POC Glucose Hemoglobin A1c Calcium 8.0 L Phosphorus Magnesium AST Alkaline Phosphatase Total Protein Albumin Urine Creatinine Urine Total Protein 06/03/17 06/03/17 06/03/17 06:00 10:20 13:43 WBC RBC Hgb Hct MCH MCHC RDW Plt Count Lymph % (Auto) [place] % (Auto) [place] # Seg Neutrophils % Seg Neuts % (Manual) Lymphocytes % (Manual) Basophils % (Manual) Seg Neutrophils # Seg Neutrophils # Man Lymphocytes # (Manual) Basophils # (Manual) POC ABG pH POC ABG pCO2 POC ABG pO2 ABG Hemoglobin Oxyhemoglobin Sodium Potassium Chloride Carbon Dioxide BUN Creatinine Glucose POC Glucose 224 H 226 H 296 H Hemoglobin A1c Calcium Phosphorus Magnesium AST Alkaline Phosphatase Total Protein Albumin Urine Creatinine Urine Total Protein 06/03/17 06/03/17 06/03/17 17:38 19:23 20:45 WBC RBC Hgb Hct MCH MCHC RDW Plt Count Lymph % (Auto) [place] % (Auto) [place] # Seg Neutrophils % Seg Neuts % (Manual) Lymphocytes % (Manual) Basophils % (Manual) Seg Neutrophils # Seg Neutrophils # Man Lymphocytes # (Manual) Basophils # (Manual) POC ABG pH POC ABG pCO2 POC ABG pO2 ABG Hemoglobin Oxyhemoglobin Sodium Potassium Chloride Carbon Dioxide BUN Creatinine Glucose POC Glucose 295 H 275 H 338 H Hemoglobin A1c Calcium Phosphorus Magnesium AST Alkaline Phosphatase Total Protein Albumin Urine Creatinine Urine Total Protein 06/03/17 06/03/17 06/04/17 21:50 23:08 00:16 WBC RBC Hgb Hct MCH MCHC RDW Plt Count Lymph % (Auto) [place] % (Auto) [place] # Seg Neutrophils % Seg Neuts % (Manual) Lymphocytes % (Manual) Basophils % (Manual) Seg Neutrophils # Seg Neutrophils # Man Lymphocytes # (Manual) Basophils # (Manual) POC ABG pH POC ABG pCO2 POC ABG pO2 ABG Hemoglobin Oxyhemoglobin Sodium Potassium Chloride Carbon Dioxide BUN Creatinine Glucose POC Glucose 223 H 214 H 226 H Hemoglobin A1c Calcium Phosphorus Magnesium AST Alkaline Phosphatase Total Protein Albumin Urine Creatinine Urine Total Protein 06/04/17 06/04/17 06/04/17 01:05 02:07 03:27 WBC RBC Hgb Hct MCH MCHC RDW Plt Count Lymph % (Auto) [place] % (Auto) [place] # Seg Neutrophils % Seg Neuts % (Manual) Lymphocytes % (Manual) Basophils % (Manual) Seg Neutrophils # Seg Neutrophils # Man Lymphocytes # (Manual) Basophils # (Manual) POC ABG pH POC ABG pCO2 POC ABG pO2 ABG Hemoglobin Oxyhemoglobin Sodium Potassium Chloride Carbon Dioxide BUN Creatinine Glucose POC Glucose 217 H 229 H 185 H Hemoglobin A1c Calcium Phosphorus Magnesium AST Alkaline Phosphatase Total Protein Albumin Urine Creatinine Urine Total Protein 06/04/17 06/04/17 06/04/17 03:52 04:05 04:05 WBC 19.6 H RBC Hgb Hct MCH 26 L MCHC RDW 15.6 H Plt Count 564 H Lymph % (Auto) 7.3 L [place] % (Auto) 10.8 H [place] # 2.1 H Seg Neutrophils % 81.4 H Seg Neuts % (Manual) Lymphocytes % (Manual) Basophils % (Manual) Seg Neutrophils # 15.9 H Seg Neutrophils # Man Lymphocytes # (Manual) Basophils # (Manual) POC ABG pH POC ABG pCO2 POC ABG pO2 ABG Hemoglobin Oxyhemoglobin Sodium Potassium Chloride Carbon Dioxide 17 L BUN 52 H Creatinine 2.5 H Glucose 163 H POC Glucose 181 H Hemoglobin A1c Calcium 7.9 L Phosphorus Magnesium AST Alkaline Phosphatase Total Protein Albumin Urine Creatinine Urine Total Protein 06/04/17 06/04/17 06/04/17 04:56 05:39 06:12 WBC RBC Hgb Hct MCH MCHC RDW Plt Count Lymph % (Auto) [place] % (Auto) [place] # Seg Neutrophils % Seg Neuts % (Manual) Lymphocytes % (Manual) Basophils % (Manual) Seg Neutrophils # Seg Neutrophils # Man Lymphocytes # (Manual) Basophils # (Manual) POC ABG pH 7.486 H POC ABG pCO2 26.8 L POC ABG pO2 ABG Hemoglobin Oxyhemoglobin Sodium Potassium Chloride Carbon Dioxide BUN Creatinine Glucose POC Glucose 208 H 225 H Hemoglobin A1c Calcium Phosphorus Magnesium AST Alkaline Phosphatase Total Protein Albumin Urine Creatinine Urine Total Protein 06/04/17 06/04/17 06/04/17 07:07 08:06 09:15 WBC RBC Hgb Hct MCH MCHC RDW Plt Count Lymph % (Auto) [place] % (Auto) [place] # Seg Neutrophils % Seg Neuts % (Manual) Lymphocytes % (Manual) Basophils % (Manual) Seg Neutrophils # Seg Neutrophils # Man Lymphocytes # (Manual) Basophils # (Manual) POC ABG pH POC ABG pCO2 POC ABG pO2 ABG Hemoglobin Oxyhemoglobin Sodium Potassium Chloride Carbon Dioxide BUN Creatinine Glucose POC Glucose 201 H 171 H 178 H Hemoglobin A1c Calcium Phosphorus Magnesium AST Alkaline Phosphatase Total Protein Albumin Urine Creatinine Urine Total Protein 06/04/17 06/04/17 06/04/17 10:16 12:22 17:21 WBC RBC Hgb Hct MCH MCHC RDW Plt Count Lymph % (Auto) [place] % (Auto) [place] # Seg Neutrophils % Seg Neuts % (Manual) Lymphocytes % (Manual) Basophils % (Manual) Seg Neutrophils # Seg Neutrophils # Man Lymphocytes # (Manual) Basophils # (Manual) POC ABG pH POC ABG pCO2 POC ABG pO2 ABG Hemoglobin Oxyhemoglobin Sodium Potassium Chloride Carbon Dioxide BUN Creatinine Glucose POC Glucose 191 H 188 H Hemoglobin A1c Calcium Phosphorus Magnesium AST Alkaline Phosphatase Total Protein Albumin Urine Creatinine 78.7 H Urine Total Protein 197 H 06/04/17 06/04/17 06/05/17 17:56 22:10 00:00 WBC RBC Hgb Hct MCH MCHC RDW Plt Count Lymph % (Auto) [place] % (Auto) [place] # Seg Neutrophils % Seg Neuts % (Manual) Lymphocytes % (Manual) Basophils % (Manual) Seg Neutrophils # Seg Neutrophils # Man Lymphocytes # (Manual) Basophils # (Manual) POC ABG pH POC ABG pCO2 POC ABG pO2 ABG Hemoglobin Oxyhemoglobin Sodium Potassium Chloride Carbon Dioxide 17 L BUN 55 H Creatinine 2.3 H Glucose 300 H POC Glucose 266 H 337 H Hemoglobin A1c Calcium 7.4 L Phosphorus Magnesium AST Alkaline Phosphatase Total Protein Albumin Urine Creatinine Urine Total Protein 06/05/17 06/05/17 06/05/17 03:26 04:11 05:13 WBC RBC Hgb Hct MCH MCHC RDW Plt Count Lymph % (Auto) [place] % (Auto) [place] # Seg Neutrophils % Seg Neuts % (Manual) Lymphocytes % (Manual) Basophils % (Manual) Seg Neutrophils # Seg Neutrophils # Man Lymphocytes # (Manual) Basophils # (Manual) POC ABG pH 7.586 H POC ABG pCO2 22.6 L POC ABG pO2 179 H ABG Hemoglobin Oxyhemoglobin Sodium Potassium Chloride Carbon Dioxide 19 L BUN 55 H Creatinine 2.2 H Glucose 226 H POC Glucose 220 H Hemoglobin A1c Calcium 7.7 L Phosphorus Magnesium AST Alkaline Phosphatase Total Protein Albumin Urine Creatinine Urine Total Protein 06/05/17 06/05/17 06/05/17 12:42 18:24 21:23 WBC RBC Hgb Hct MCH MCHC RDW Plt Count Lymph % (Auto) [place] % (Auto) [place] # Seg Neutrophils % Seg Neuts % (Manual) Lymphocytes % (Manual) Basophils % (Manual) Seg Neutrophils # Seg Neutrophils # Man Lymphocytes # (Manual) Basophils # (Manual) POC ABG pH POC ABG pCO2 POC ABG pO2 ABG Hemoglobin Oxyhemoglobin Sodium Potassium Chloride Carbon Dioxide BUN Creatinine Glucose POC Glucose 168 H 121 H 166 H Hemoglobin A1c Calcium Phosphorus Magnesium AST Alkaline Phosphatase Total Protein Albumin Urine Creatinine Urine Total Protein 06/06/17 06/06/17 06/06/17 00:14 04:11 06:19 WBC RBC Hgb Hct MCH MCHC RDW Plt Count Lymph % (Auto) [place] % (Auto) [place] # Seg Neutrophils % Seg Neuts % (Manual) Lymphocytes % (Manual) Basophils % (Manual) Seg Neutrophils # Seg Neutrophils # Man Lymphocytes # (Manual) Basophils # (Manual) POC ABG pH POC ABG pCO2 33.0 L POC ABG pO2 ABG Hemoglobin Oxyhemoglobin Sodium Potassium Chloride Carbon Dioxide BUN Creatinine Glucose POC Glucose 179 H 180 H Hemoglobin A1c Calcium Phosphorus Magnesium AST Alkaline Phosphatase Total Protein Albumin Urine Creatinine Urine Total Protein 06/06/17 06/06/17 06/06/17 12:19 18:38 20:01 WBC RBC Hgb Hct MCH MCHC RDW Plt Count Lymph % (Auto) [place] % (Auto) [place] # Seg Neutrophils % Seg Neuts % (Manual) Lymphocytes % (Manual) Basophils % (Manual) Seg Neutrophils # Seg Neutrophils # Man Lymphocytes # (Manual) Basophils # (Manual) POC ABG pH POC ABG pCO2 POC ABG pO2 ABG Hemoglobin Oxyhemoglobin Sodium Potassium Chloride Carbon Dioxide BUN Creatinine Glucose POC Glucose 123 H 56 L 65 L Hemoglobin A1c Calcium Phosphorus Magnesium AST Alkaline Phosphatase Total Protein Albumin Urine Creatinine Urine Total Protein 06/06/17 06/07/17 06/07/17 23:51 04:25 05:29 WBC RBC Hgb Hct MCH MCHC RDW Plt Count Lymph % (Auto) [place] % (Auto) [place] # Seg Neutrophils % Seg Neuts % (Manual) Lymphocytes % (Manual) Basophils % (Manual) Seg Neutrophils # Seg Neutrophils # Man Lymphocytes # (Manual) Basophils # (Manual) POC ABG pH 7.470 H POC ABG pCO2 33.6 L POC ABG pO2 ABG Hemoglobin Oxyhemoglobin Sodium Potassium Chloride Carbon Dioxide BUN Creatinine Glucose POC Glucose 118 H 183 H Hemoglobin A1c Calcium Phosphorus Magnesium AST Alkaline Phosphatase Total Protein Albumin Urine Creatinine Urine Total Protein 06/07/17 06/07/17 06/07/17 07:51 12:00 18:08 WBC RBC Hgb Hct MCH MCHC RDW Plt Count Lymph % (Auto) [place] % (Auto) [place] # Seg Neutrophils % Seg Neuts % (Manual) Lymphocytes % (Manual) Basophils % (Manual) Seg Neutrophils # Seg Neutrophils # Man Lymphocytes # (Manual) Basophils # (Manual) POC ABG pH POC ABG pCO2 POC ABG pO2 ABG Hemoglobin Oxyhemoglobin Sodium 135 L Potassium Chloride Carbon Dioxide 21 L BUN 50 H Creatinine 1.8 H Glucose 232 H POC Glucose 361 H 249 H Hemoglobin A1c Calcium 8.0 L Phosphorus Magnesium AST Alkaline Phosphatase Total Protein Albumin Urine Creatinine Urine Total Protein 06/07/17 06/08/17 06/08/17 23:53 05:25 11:50 WBC RBC Hgb Hct MCH MCHC RDW Plt Count Lymph % (Auto) [place] % (Auto) [place] # Seg Neutrophils % Seg Neuts % (Manual) Lymphocytes % (Manual) Basophils % (Manual) Seg Neutrophils # Seg Neutrophils # Man Lymphocytes # (Manual) Basophils # (Manual) POC ABG pH POC ABG pCO2 POC ABG pO2 ABG Hemoglobin Oxyhemoglobin Sodium Potassium Chloride Carbon Dioxide BUN Creatinine Glucose POC Glucose 190 H 136 H 166 H Hemoglobin A1c Calcium Phosphorus Magnesium AST Alkaline Phosphatase Total Protein Albumin Urine Creatinine Urine Total Protein 06/08/17 06/08/17 06/08/17 14:20 14:20 19:05 WBC 15.7 H RBC 3.49 L Hgb 9.4 L Hct 27.9 L MCH 27 L MCHC RDW 15.3 H Plt Count 590 H Lymph % (Auto) [place] % (Auto) [place] # Seg Neutrophils % Seg Neuts % (Manual) Lymphocytes % (Manual) Basophils % (Manual) Seg Neutrophils # Seg Neutrophils # Man Lymphocytes # (Manual) Basophils # (Manual) POC ABG pH POC ABG pCO2 POC ABG pO2 ABG Hemoglobin Oxyhemoglobin Sodium Potassium Chloride Carbon Dioxide BUN 55 H Creatinine 1.7 H Glucose 117 H POC Glucose 135 H Hemoglobin A1c Calcium Phosphorus Magnesium AST Alkaline Phosphatase Total Protein Albumin Urine Creatinine Urine Total Protein 06/08/17 06/08/17 06/09/17 21:52 23:55 04:18 WBC RBC Hgb Hct MCH MCHC RDW Plt Count Lymph % (Auto) [place] % (Auto) [place] # Seg Neutrophils % Seg Neuts % (Manual) Lymphocytes % (Manual) Basophils % (Manual) Seg Neutrophils # Seg Neutrophils # Man Lymphocytes # (Manual) Basophils # (Manual) POC ABG pH POC ABG pCO2 POC ABG pO2 ABG Hemoglobin Oxyhemoglobin Sodium Potassium Chloride Carbon Dioxide BUN 51 H Creatinine 1.6 H Glucose POC Glucose 186 H 209 H Hemoglobin A1c Calcium Phosphorus Magnesium AST Alkaline Phosphatase Total Protein Albumin Urine Creatinine Urine Total Protein 06/09/17 06/09/17 06/09/17 09:56 12:42 18:09 WBC RBC Hgb Hct MCH MCHC RDW Plt Count Lymph % (Auto) [place] % (Auto) [place] # Seg Neutrophils % Seg Neuts % (Manual) Lymphocytes % (Manual) Basophils % (Manual) Seg Neutrophils # Seg Neutrophils # Man Lymphocytes # (Manual) Basophils # (Manual) POC ABG pH POC ABG pCO2 POC ABG pO2 ABG Hemoglobin Oxyhemoglobin Sodium Potassium Chloride Carbon Dioxide BUN Creatinine Glucose POC Glucose 63 L 142 H 166 H Hemoglobin A1c Calcium Phosphorus Magnesium AST Alkaline Phosphatase Total Protein Albumin Urine Creatinine Urine Total Protein 06/09/17 06/10/17 06/10/17 23:39 03:24 04:28 WBC 15.1 H RBC 2.99 L Hgb 8.1 L Hct 23.6 L MCH 27 L MCHC 35 H RDW 15.4 H Plt Count 500 H Lymph % (Auto) [place] % (Auto) [place] # Seg Neutrophils % Seg Neuts % (Manual) Lymphocytes % (Manual) Basophils % (Manual) Seg Neutrophils # Seg Neutrophils # Man Lymphocytes # (Manual) Basophils # (Manual) POC ABG pH 7.461 H POC ABG pCO2 POC ABG pO2 131 H ABG Hemoglobin Oxyhemoglobin Sodium Potassium Chloride Carbon Dioxide BUN Creatinine Glucose POC Glucose 284 H Hemoglobin A1c Calcium Phosphorus Magnesium AST Alkaline Phosphatase Total Protein Albumin Urine Creatinine Urine Total Protein 06/10/17 06/10/17 06/10/17 04:28 05:10 12:41 WBC RBC Hgb Hct MCH MCHC RDW Plt Count Lymph % (Auto) [place] % (Auto) [place] # Seg Neutrophils % Seg Neuts % (Manual) Lymphocytes % (Manual) Basophils % (Manual) Seg Neutrophils # Seg Neutrophils # Man Lymphocytes # (Manual) Basophils # (Manual) POC ABG pH POC ABG pCO2 POC ABG pO2 ABG Hemoglobin Oxyhemoglobin Sodium Potassium Chloride Carbon Dioxide BUN 53 H Creatinine 1.8 H Glucose 185 H POC Glucose 190 H 50 L Hemoglobin A1c Calcium Phosphorus Magnesium AST Alkaline Phosphatase Total Protein Albumin Urine Creatinine Urine Total Protein 06/10/17 06/10/17 06/11/17 14:35 18:31 00:09 WBC RBC Hgb Hct MCH MCHC RDW Plt Count Lymph % (Auto) [place] % (Auto) [place] # Seg Neutrophils % Seg Neuts % (Manual) Lymphocytes % (Manual) Basophils % (Manual) Seg Neutrophils # Seg Neutrophils # Man Lymphocytes # (Manual) Basophils # (Manual) POC ABG pH POC ABG pCO2 POC ABG pO2 ABG Hemoglobin Oxyhemoglobin Sodium Potassium Chloride Carbon Dioxide BUN Creatinine Glucose POC Glucose 58 L 55 L 126 H Hemoglobin A1c Calcium Phosphorus Magnesium AST Alkaline Phosphatase Total Protein Albumin Urine Creatinine Urine Total Protein 06/11/17 06/11/17 06/11/17 05:32 06:01 06:03 WBC 15.6 H RBC 3.03 L Hgb 8.3 L Hct 24.0 L MCH MCHC 35 H RDW Plt Count 492 H Lymph % (Auto) [place] % (Auto) [place] # Seg Neutrophils % Seg Neuts % (Manual) Lymphocytes % (Manual) Basophils % (Manual) Seg Neutrophils # Seg Neutrophils # Man Lymphocytes # (Manual) Basophils # (Manual) POC ABG pH POC ABG pCO2 POC ABG pO2 ABG Hemoglobin Oxyhemoglobin Sodium Potassium Chloride Carbon Dioxide BUN 55 H Creatinine 1.8 H Glucose 228 H POC Glucose 219 H Hemoglobin A1c Calcium Phosphorus Magnesium AST Alkaline Phosphatase Total Protein Albumin Urine Creatinine Urine Total Protein 06/11/17 06/11/17 06/12/17 11:53 18:31 04:24 WBC 17.4 H RBC 2.90 L Hgb 8.0 L Hct 23.0 L MCH MCHC 35 H RDW Plt Count 460 H Lymph % (Auto) [place] % (Auto) [place] # Seg Neutrophils % Seg Neuts % (Manual) Lymphocytes % (Manual) Basophils % (Manual) Seg Neutrophils # Seg Neutrophils # Man Lymphocytes # (Manual) Basophils # (Manual) POC ABG pH POC ABG pCO2 POC ABG pO2 ABG Hemoglobin Oxyhemoglobin Sodium Potassium Chloride Carbon Dioxide BUN Creatinine Glucose POC Glucose 220 H 254 H Hemoglobin A1c Calcium Phosphorus Magnesium AST Alkaline Phosphatase Total Protein Albumin Urine Creatinine Urine Total Protein 06/12/17 06/12/17 06/12/17 05:37 05:40 06:00 WBC RBC Hgb Hct MCH MCHC RDW Plt Count Lymph % (Auto) [place] % (Auto) [place] # Seg Neutrophils % Seg Neuts % (Manual) Lymphocytes % (Manual) Basophils % (Manual) Seg Neutrophils # Seg Neutrophils # Man Lymphocytes # (Manual) Basophils # (Manual) POC ABG pH POC ABG pCO2 POC ABG pO2 ABG Hemoglobin Oxyhemoglobin Sodium Potassium Chloride Carbon Dioxide BUN Creatinine Glucose 41 L POC Glucose < 40 L < 40 L Hemoglobin A1c Calcium Phosphorus Magnesium AST Alkaline Phosphatase Total Protein Albumin Urine Creatinine Urine Total Protein 06/12/17 06/12/17 06/12/17 07:09 07:51 10:06 WBC RBC Hgb Hct MCH MCHC RDW Plt Count Lymph % (Auto) [place] % (Auto) [place] # Seg Neutrophils % Seg Neuts % (Manual) Lymphocytes % (Manual) Basophils % (Manual) Seg Neutrophils # Seg Neutrophils # Man Lymphocytes # (Manual) Basophils # (Manual) POC ABG pH POC ABG pCO2 POC ABG pO2 ABG Hemoglobin Oxyhemoglobin Sodium Potassium Chloride Carbon Dioxide BUN Creatinine Glucose POC Glucose 64 L 42 L 61 L Hemoglobin A1c Calcium Phosphorus Magnesium AST Alkaline Phosphatase Total Protein Albumin Urine Creatinine Urine Total Protein 06/12/17 06/12/17 06/12/17 11:16 14:04 18:03 WBC RBC Hgb Hct MCH MCHC RDW Plt Count Lymph % (Auto) [place] % (Auto) [place] # Seg Neutrophils % Seg Neuts % (Manual) Lymphocytes % (Manual) Basophils % (Manual) Seg Neutrophils # Seg Neutrophils # Man Lymphocytes # (Manual) Basophils # (Manual) POC ABG pH POC ABG pCO2 POC ABG pO2 ABG Hemoglobin Oxyhemoglobin Sodium Potassium Chloride Carbon Dioxide BUN Creatinine Glucose POC Glucose 67 L 112 H 116 H Hemoglobin A1c Calcium Phosphorus Magnesium AST Alkaline Phosphatase Total Protein Albumin Urine Creatinine Urine Total Protein 06/12/17 06/12/17 06/12/17 19:30 20:34 21:01 WBC RBC Hgb Hct MCH MCHC RDW Plt Count Lymph % (Auto) [place] % (Auto) [place] # Seg Neutrophils % Seg Neuts % (Manual) Lymphocytes % (Manual) Basophils % (Manual) Seg Neutrophils # Seg Neutrophils # Man Lymphocytes # (Manual) Basophils # (Manual) POC ABG pH POC ABG pCO2 POC ABG pO2 ABG Hemoglobin Oxyhemoglobin Sodium Potassium Chloride Carbon Dioxide BUN Creatinine Glucose POC Glucose 156 H 172 H 174 H Hemoglobin A1c Calcium Phosphorus Magnesium AST Alkaline Phosphatase Total Protein Albumin Urine Creatinine Urine Total Protein 06/12/17 06/12/17 06/13/17 22:00 23:23 00:27 WBC RBC Hgb Hct MCH MCHC RDW Plt Count Lymph % (Auto) [place] % (Auto) [place] # Seg Neutrophils % Seg Neuts % (Manual) Lymphocytes % (Manual) Basophils % (Manual) Seg Neutrophils # Seg Neutrophils # Man Lymphocytes # (Manual) Basophils # (Manual) POC ABG pH POC ABG pCO2 POC ABG pO2 ABG Hemoglobin Oxyhemoglobin Sodium Potassium Chloride Carbon Dioxide BUN Creatinine Glucose POC Glucose 240 H 286 H 182 H Hemoglobin A1c Calcium Phosphorus Magnesium AST Alkaline Phosphatase Total Protein Albumin Urine Creatinine Urine Total Protein 06/13/17 06/13/17 06/13/17 01:28 02:10 03:15 WBC RBC Hgb Hct MCH MCHC RDW Plt Count Lymph % (Auto) [place] % (Auto) [place] # Seg Neutrophils % Seg Neuts % (Manual) Lymphocytes % (Manual) Basophils % (Manual) Seg Neutrophils # Seg Neutrophils # Man Lymphocytes # (Manual) Basophils # (Manual) POC ABG pH POC ABG pCO2 POC ABG pO2 ABG Hemoglobin Oxyhemoglobin Sodium Potassium Chloride Carbon Dioxide BUN Creatinine Glucose POC Glucose 304 H 277 H 318 H Hemoglobin A1c Calcium Phosphorus Magnesium AST Alkaline Phosphatase Total Protein Albumin Urine Creatinine Urine Total Protein 06/13/17 06/13/17 06/13/17 04:15 05:10 05:38 WBC RBC Hgb Hct MCH MCHC RDW Plt Count Lymph % (Auto) [place] % (Auto) [place] # Seg Neutrophils % Seg Neuts % (Manual) Lymphocytes % (Manual) Basophils % (Manual) Seg Neutrophils # Seg Neutrophils # Man Lymphocytes # (Manual) Basophils # (Manual) POC ABG pH POC ABG pCO2 POC ABG pO2 ABG Hemoglobin Oxyhemoglobin Sodium Potassium Chloride Carbon Dioxide BUN Creatinine Glucose POC Glucose 294 H 275 H 315 H Hemoglobin A1c Calcium Phosphorus Magnesium AST Alkaline Phosphatase Total Protein Albumin Urine Creatinine Urine Total Protein 06/13/17 06/13/17 06/13/17 06:21 12:02 16:52 WBC RBC Hgb Hct MCH MCHC RDW Plt Count Lymph % (Auto) [place] % (Auto) [place] # Seg Neutrophils % Seg Neuts % (Manual) Lymphocytes % (Manual) Basophils % (Manual) Seg Neutrophils # Seg Neutrophils # Man Lymphocytes # (Manual) Basophils # (Manual) POC ABG pH POC ABG pCO2 POC ABG pO2 ABG Hemoglobin Oxyhemoglobin Sodium Potassium Chloride Carbon Dioxide BUN Creatinine Glucose POC Glucose 350 H 333 H 343 H Hemoglobin A1c Calcium Phosphorus Magnesium AST Alkaline Phosphatase Total Protein Albumin Urine Creatinine Urine Total Protein 06/14/17 06/14/17 06/14/17 00:01 04:18 04:18 WBC 29.6 H RBC 2.81 L Hgb 7.8 L Hct 23.2 L MCH MCHC RDW 15.3 H Plt Count Lymph % (Auto) [place] % (Auto) [place] # Seg Neutrophils % Seg Neuts % (Manual) Lymphocytes % (Manual) Basophils % (Manual) Seg Neutrophils # Seg Neutrophils # Man Lymphocytes # (Manual) Basophils # (Manual) POC ABG pH POC ABG pCO2 POC ABG pO2 ABG Hemoglobin Oxyhemoglobin Sodium Potassium Chloride Carbon Dioxide 20 L BUN 75 H Creatinine 2.2 H Glucose 364 H POC Glucose 297 H Hemoglobin A1c Calcium Phosphorus Magnesium AST Alkaline Phosphatase Total Protein Albumin Urine Creatinine Urine Total Protein 06/14/17 06/14/17 06/14/17 05:10 08:25 11:46 WBC RBC Hgb Hct MCH MCHC RDW Plt Count Lymph % (Auto) [place] % (Auto) [place] # Seg Neutrophils % Seg Neuts % (Manual) Lymphocytes % (Manual) Basophils % (Manual) Seg Neutrophils # Seg Neutrophils # Man Lymphocytes # (Manual) Basophils # (Manual) POC ABG pH POC ABG pCO2 POC ABG pO2 ABG Hemoglobin Oxyhemoglobin Sodium Potassium Chloride Carbon Dioxide BUN Creatinine Glucose POC Glucose 350 H 322 H 391 H Hemoglobin A1c Calcium Phosphorus Magnesium AST Alkaline Phosphatase Total Protein Albumin Urine Creatinine Urine Total Protein 06/14/17 06/15/17 06/15/17 18:04 00:16 11:20 WBC RBC Hgb Hct MCH MCHC RDW Plt Count Lymph % (Auto) [place] % (Auto) [place] # Seg Neutrophils % Seg Neuts % (Manual) Lymphocytes % (Manual) Basophils % (Manual) Seg Neutrophils # Seg Neutrophils # Man Lymphocytes # (Manual) Basophils # (Manual) POC ABG pH POC ABG pCO2 POC ABG pO2 ABG Hemoglobin Oxyhemoglobin Sodium Potassium Chloride Carbon Dioxide 21 L BUN 88 H Creatinine 2.7 H Glucose 302 H POC Glucose 384 H 435 H Hemoglobin A1c Calcium Phosphorus Magnesium AST Alkaline Phosphatase Total Protein Albumin Urine Creatinine Urine Total Protein 06/15/17 06/15/17 06/15/17 11:47 17:35 21:33 WBC RBC Hgb Hct MCH MCHC RDW Plt Count Lymph % (Auto) [place] % (Auto) [place] # Seg Neutrophils % Seg Neuts % (Manual) Lymphocytes % (Manual) Basophils % (Manual) Seg Neutrophils # Seg Neutrophils # Man Lymphocytes # (Manual) Basophils # (Manual) POC ABG pH POC ABG pCO2 POC ABG pO2 ABG Hemoglobin Oxyhemoglobin Sodium Potassium Chloride Carbon Dioxide BUN Creatinine Glucose POC Glucose 311 H 428 H 346 H Hemoglobin A1c Calcium Phosphorus Magnesium AST Alkaline Phosphatase Total Protein Albumin Urine Creatinine Urine Total Protein 06/15/17 06/15/17 06/16/17 23:23 Unknown 05:36 WBC RBC Hgb Hct MCH MCHC RDW Plt Count Lymph % (Auto) [place] % (Auto) [place] # Seg Neutrophils % Seg Neuts % (Manual) Lymphocytes % (Manual) Basophils % (Manual) Seg Neutrophils # Seg Neutrophils # Man Lymphocytes # (Manual) Basophils # (Manual) POC ABG pH POC ABG pCO2 POC ABG pO2 ABG Hemoglobin 10.1 L Oxyhemoglobin 94.9 L Sodium Potassium Chloride Carbon Dioxide BUN Creatinine Glucose POC Glucose 351 H 303 H Hemoglobin A1c Calcium Phosphorus Magnesium AST Alkaline Phosphatase Total Protein Albumin Urine Creatinine Urine Total Protein 06/16/17 06/16/17 06:33 06:33 WBC 25.8 H RBC 2.68 L Hgb 7.2 L Hct 21.6 L MCH 27 L MCHC RDW 15.9 H Plt Count Lymph % (Auto) [place] % (Auto) [place] # Seg Neutrophils % Seg Neuts % (Manual) Lymphocytes % (Manual) Basophils % (Manual) Seg Neutrophils # Seg Neutrophils # Man Lymphocytes # (Manual) Basophils # (Manual) POC ABG pH POC ABG pCO2 POC ABG pO2 ABG Hemoglobin Oxyhemoglobin Sodium Potassium Chloride Carbon Dioxide 21 L BUN 94 H Creatinine 2.7 H Glucose 280 H POC Glucose Hemoglobin A1c Calcium Phosphorus Magnesium AST Alkaline Phosphatase Total Protein Albumin Urine Creatinine Urine Total Protein Chest x-ray: report reviewed, image reviewed
[2017-06-16 12:05] LABS: Bacteria,Urine 4+ /HPF (Negative); Bilirubin,Urine NEG (Negative); Blood,Urine SM (Negative); Color,Urine Yellow (Yellow); Mucus,Urine 1+ /HPF; Urobilinogen,Urine < 2.0 mg/dL (<2.0); WBC,Urine > 182.0 /HPF (0.0-6.0)
[2017-06-16 12:06] LABS: RBC,Urine > 182.0 /HPF (0.0-6.0)
[2017-06-16 12:42] LABS: Creatinine,Urine 119.9 mg/dL (0.1-20.0)
--- NOTE | 2017-06-16 13:14 | Progress Note ---
Assessment and Plan - Patient Problems (1) Acute renal failure with tubular necrosis Current Visit: Yes Status: Acute Plan to address problem: Non-Oliguric Acute renal failure/acute tubular necrosis. worsening renal function noted, UA consistent with UTI, FeNA 0.6%. recent CXR showed stable cardiomegaly, rt base opacity however normal pulmonary vascularity. Suspect pre-renal azotemia in the setting of sepsis. Will hold diuretics for now. tight glucose control as per primary attending. if renal function continues to worsen will start gentle IVF. Supportive care for JERRI avoid nephrotoxins, NSAIDs, IV contrast. D/w family and RN at bedside (2) Acute respiratory failure Current Visit: Yes Status: Acute Qualifiers: Respiratory failure complication: hypoxia Qualified Code(s): J96.01 - Acute respiratory failure with hypoxia Plan to address problem: Ventilator management by pulmonary/CCM (3) Hyperosmolar non-ketotic state in patient with type 2 diabetes mellitus Current Visit: Yes Status: Acute Plan to address problem: Blood sugar management by primary attending (4) Proteinuria Current Visit: Yes Status: Acute Plan to address problem: likely due to underlying diabetic nephropathy. ARAM-I contraindicated due to h/o allergy (5) Hypertension Current Visit: Yes Status: Acute Qualifiers: Hypertension type: essential hypertension Qualified Code(s): I10 - Essential (primary) hypertension Plan to address problem: Blood pressure has improved. Follow blood pressure on current medications (6) Acute systolic heart failure Current Visit: Yes Status: Acute Plan to address problem: Continue beta jas. Continue spironolactone and monitor fluid balance. ARAM inhibitor/angiotensin receptor jas contraindicated due to her history of allergy. diuretics on hold for now given worsening renal function Subjective Date of service: 06/16/17 Principal diagnosis: coma Interval history: pt s/p trach/peg, on vent, remains unresponsive Objective - Vital Signs Vital signs: Vital Signs - 12hr 06/16/17 06/16/17 06/16/17 01:30 02:00 02:30 Temperature Pulse Rate 99 H 99 H 99 H Respiratory 22 19 21 Rate Blood Pressure 143/80 146/80 146/81 O2 Sat by Pulse 96 100 97 Oximetry 06/16/17 06/16/17 06/16/17 03:00 03:08 03:30 Temperature Pulse Rate 100 H 99 H 99 H Respiratory 20 5 L 19 Rate Blood Pressure 144/82 144/80 140/75 O2 Sat by Pulse 97 99 98 Oximetry 06/16/17 06/16/17 06/16/17 04:00 04:03 04:31 Temperature 99.3 F Pulse Rate 96 H 93 H Respiratory 20 17 Rate Blood Pressure 140/75 166/93 O2 Sat by Pulse 98 Oximetry 06/16/17 06/16/17 06/16/17 05:00 05:15 05:16 Temperature Pulse Rate 93 H 90 90 Respiratory 19 Rate Blood Pressure 150/73 150/73 150/73 O2 Sat by Pulse 98 Oximetry 06/16/17 06/16/17 06/16/17 05:31 06:00 06:20 Temperature Pulse Rate 90 89 89 Respiratory 18 17 24 Rate Blood Pressure 150/73 157/67 157/67 O2 Sat by Pulse 99 99 99 Oximetry 06/16/17 06/16/17 06/16/17 06:31 07:00 07:31 Temperature Pulse Rate 89 90 88 Respiratory 28 H 26 H 34 H Rate Blood Pressure 157/67 136/76 136/76 O2 Sat by Pulse 99 99 94 Oximetry 06/16/17 06/16/17 06/16/17 07:49 08:00 08:30 Temperature 98.2 F Pulse Rate 90 92 H 90 Respiratory 24 26 H 23 Rate Blood Pressure 136/76 141/84 141/84 O2 Sat by Pulse 99 100 100 Oximetry 06/16/17 06/16/17 06/16/17 09:00 09:31 09:46 Temperature Pulse Rate 88 88 90 Respiratory 25 H 27 H Rate Blood Pressure 130/75 130/75 130/75 O2 Sat by Pulse 100 100 100 Oximetry 06/16/17 06/16/17 06/16/17 10:00 10:04 10:05 Temperature Pulse Rate 90 89 90 Respiratory 35 H Rate Blood Pressure 135/82 135/82 135/82 O2 Sat by Pulse 100 Oximetry 06/16/17 06/16/17 06/16/17 10:28 10:31 11:00 Temperature Pulse Rate 89 88 90 Respiratory 18 16 Rate Blood Pressure 135/82 135/82 135/79 O2 Sat by Pulse 99 99 100 Oximetry 06/16/17 06/16/17 11:54 11:59 Temperature 98.7 F Pulse Rate 86 Respiratory Rate Blood Pressure 135/79 O2 Sat by Pulse 100 Oximetry - General Appearance General appearance: well-developed, intubated EENT: ATNC, mucous membranes moist Neck: no JVD Respiratory: Present: Decreased Breath Sounds Cardiology: regular, S1S2 Gastrointestinal: normoactive bowel sounds Integumentary: no rash, other (1+ edema b/l LE ) Neurologic: other (unresponsive ) - Lab 06/16/17 06:33 06/16/17 06:33 Most recent lab results ABG pH 7.440 pH Units (7.350-7.450) 06/15/17 Unknown ABG pCO2 33.0 mm Hg 06/15/17 Unknown ABG pO2 84.3 mm Hg (80.0-90.0) 06/15/17 Unknown ABG HCO3 21.9 mmol/L (20.0-26.0) 06/15/17 Unknown ABG O2 Saturation 97.0 % (95.0-99.0) 06/15/17 Unknown Calcium 8.4 mg/dL (8.4-10.2) 06/16/17 06:33 Phosphorus 4.40 mg/dL (2.5-4.5) 06/07/17 07:51 Magnesium 1.70 mg/dL (1.7-2.3) 06/07/17 07:51 Urine Creatinine 119.9 mg/dL (0.1-20.0) H 06/16/17 08:26 Urine Sodium 39 mmol/L 06/16/17 08:26 Urine Total Protein 295 mg/dL (5-11.8) H 06/16/17 08:26
--- NOTE | 2017-06-16 19:05 | Progress Note ---
Assessment and Plan /Acute hypoxic respiratory failure -was intubated, on mechanical ventilation>96hrs, now tracheostomy to ventilator -Had PEG and Trach, 06/11/17 /Status post cardiac arrest - Cardiology following - EF 15-20% /Acute encephalopathy with anoxic hypoxic brain injury -Continue supportive care /Seizure disorder-complex partial - Patient is on IV Keppra - Cont Ambien -Neurology following Cardiomyopathy -Cardiology following, continue aspirin, statin, beta jas, Lasix and spironolactone Hyperosmolar hyperglycemic syndrome in Diabetes mellitus type 2. This had resolved - She was on Insulin drip, now on subcut Insulin - Insulin dose increased to 25 Units bid because of hyperglycemia /Hypoglycemia.episodes, Now resolved /Acute kidney injury. -Creatinine worsening :2.7 today - Nephrology following /Hypertension. BP stable with beta jas, hydralazine, Imdur, Lasix and spironolactone /Sepsis, with leukocytosis, tachycardia tachypnea - Aspiration pneumonia versus UTI versus atelectasis - Continue antibiotics for now, plan for bronchoscopy /DVT prophylaxis with Lovenox /Disposition - Continue ICU care. poor prognosis -will need LTAC placement POOR PROGNOSIS Brief history: Patient had 36-year-old -Turk[place] female was admitted to the floor for seizure episode, altered mental status, acute hypoxic respiratory failure, patient was intubated in the emergency department patient had PEA and resuscitated successfully. She was placed on trach and PEG tube on 06/11/17. Hospitalist Physical Gen appearance:Not in acute distress, lying in bed, obese HEENT: facial edema, Neck:supple, no JVD, Tracheostomy Lungs: Coarse breath sounds bilaterally, no wheeze Heart: S1 and S2 regular, no murmurs, rubs or gallop Abdomen: soft, non tender, non distended, normal bowel sounds, PEG tube present Ext: Edema both upper and lower extremities, no cyanosis,anasarca Neuro: Unresponsive Subjective Date of service: 06/16/17 Principal diagnosis: coma Interval history: Still intubated, Unresponsive, No fever PEG and Trach done 06/11 Objective - Constitutional Vitals: Vital Signs - 12hr 06/16/17 06/16/17 06/16/17 07:31 07:49 08:00 Temperature 98.2 F Pulse Rate 88 90 92 H Respiratory 34 H 24 26 H Rate Blood Pressure 136/76 136/76 141/84 O2 Sat by Pulse 94 99 100 Oximetry O2 Sat by Pulse Oximetry [ Assessment] 06/16/17 06/16/17 06/16/17 08:30 09:00 09:31 Temperature Pulse Rate 90 88 88 Respiratory 23 25 H 27 H Rate Blood Pressure 141/84 130/75 130/75 O2 Sat by Pulse 100 100 100 Oximetry O2 Sat by Pulse Oximetry [ Assessment] 06/16/17 06/16/17 06/16/17 09:46 10:00 10:04 Temperature Pulse Rate 90 90 89 Respiratory 35 H Rate Blood Pressure 130/75 135/82 135/82 O2 Sat by Pulse 100 100 Oximetry O2 Sat by Pulse Oximetry [ Assessment] 06/16/17 06/16/17 06/16/17 10:05 10:28 10:31 Temperature Pulse Rate 90 89 88 Respiratory 18 Rate Blood Pressure 135/82 135/82 135/82 O2 Sat by Pulse 99 99 Oximetry O2 Sat by Pulse Oximetry [ Assessment] 06/16/17 06/16/17 06/16/17 11:00 11:31 11:54 Temperature 98.7 F Pulse Rate 90 89 Respiratory 16 18 Rate Blood Pressure 135/79 135/79 O2 Sat by Pulse 100 100 Oximetry O2 Sat by Pulse Oximetry [ Assessment] 06/16/17 06/16/17 06/16/17 11:59 12:00 12:31 Temperature Pulse Rate 86 87 86 Respiratory 19 19 Rate Blood Pressure 135/79 126/72 126/72 O2 Sat by Pulse 100 100 100 Oximetry O2 Sat by Pulse Oximetry [ Assessment] 06/16/17 06/16/17 06/16/17 13:01 13:31 14:00 Temperature Pulse Rate 90 90 87 Respiratory 12 17 18 Rate Blood Pressure 151/95 151/95 141/80 O2 Sat by Pulse 100 100 100 Oximetry O2 Sat by Pulse Oximetry [ Assessment] 06/16/17 06/16/17 06/16/17 14:10 14:22 14:31 Temperature Pulse Rate 87 88 88 Respiratory 17 Rate Blood Pressure 141/80 141/80 141/80 O2 Sat by Pulse 100 100 Oximetry O2 Sat by Pulse Oximetry [ Assessment] 06/16/17 06/16/17 06/16/17 15:00 15:31 16:00 Temperature 98.5 F Pulse Rate 88 88 90 Respiratory 17 21 21 Rate Blood Pressure 142/83 142/83 150/90 O2 Sat by Pulse 100 100 100 Oximetry O2 Sat by Pulse Oximetry [ Assessment] 06/16/17 06/16/17 06/16/17 16:30 17:00 17:30 Temperature Pulse Rate 86 85 85 Respiratory 20 20 18 Rate Blood Pressure 150/90 141/64 141/64 O2 Sat by Pulse 100 100 100 Oximetry O2 Sat by Pulse Oximetry [ Assessment] 06/16/17 06/16/17 06/16/17 17:55 17:57 18:00 Temperature Pulse Rate 88 90 Respiratory 22 Rate Blood Pressure 141/64 149/85 O2 Sat by Pulse 100 100 Oximetry O2 Sat by Pulse 100 Oximetry [ Assessment] - Labs CBC & Chem 7: 06/17/17 04:04 06/17/17 04:04 Labs: Abnormal lab results 06/15/17 06/15/17 06/16/17 Range/Units 21:33 23:23 05:36 WBC (4.5-11.0) K/mm3 RBC (3.65-5.03) M/mm3 Hgb (10.1-14.3) gm/dl Hct (30.3-42.9) % MCH (28-32) pg RDW (13.2-15.2) % Carbon Dioxide (22-30) mmol/L BUN (7-17) mg/dL Creatinine (0.7-1.2) mg/dL Glucose (65-100) mg/dL POC Glucose 346 H 351 H 303 H (70-105) Urine WBC (Auto) (0.0-6.0) /HPF Urine Creatinine (0.1-20.0) mg/dL Urine Total Protein (5-11.8) mg/dL 06/16/17 06/16/17 06/16/17 Range/Units 06:33 06:33 08:26 WBC 25.8 H (4.5-11.0) K/mm3 RBC 2.68 L (3.65-5.03) M/mm3 Hgb 7.2 L (10.1-14.3) gm/dl Hct 21.6 L (30.3-42.9) % MCH 27 L (28-32) pg RDW 15.9 H (13.2-15.2) % Carbon Dioxide 21 L (22-30) mmol/L BUN 94 H (7-17) mg/dL Creatinine 2.7 H (0.7-1.2) mg/dL Glucose 280 H (65-100) mg/dL POC Glucose (70-105) Urine WBC (Auto) > 182.0 H (0.0-6.0) /HPF Urine Creatinine (0.1-20.0) mg/dL Urine Total Protein (5-11.8) mg/dL 06/16/17 06/16/17 06/16/17 Range/Units 08:26 11:45 18:28 WBC (4.5-11.0) K/mm3 RBC (3.65-5.03) M/mm3 Hgb (10.1-14.3) gm/dl Hct (30.3-42.9) % MCH (28-32) pg RDW (13.2-15.2) % Carbon Dioxide (22-30) mmol/L BUN (7-17) mg/dL Creatinine (0.7-1.2) mg/dL Glucose (65-100) mg/dL POC Glucose 263 H 175 H (70-105) Urine WBC (Auto) (0.0-6.0) /HPF Urine Creatinine 119.9 H (0.1-20.0) mg/dL Urine Total Protein 295 H (5-11.8) mg/dL
[2017-06-17 04:28] LABS: ABG Base Excess -2.1 mmol/L (-2.0-3.0); ABG HCO3 21.1 mmol/L (20.0-26.0); ABG Methemoglobin 0.4 % (0.0-1.5); ABG Oxygen Saturation 98.9 % (95.0-99.0); ABG PCO2 28.7 mm Hg; ABG PH 7.483 pH Units (7.350-7.450)
[2017-06-17 04:59] LABS: Hematocrit 21.5 % (30.3-42.9); Hemoglobin 7.1 gm/dl (10.1-14.3); Mean Corpuscular HGB Conc 33 % (30-34); Mean Corpuscular Hemoglobin 27 pg (28-32); Mean Corpuscular Volume 82 fl (79-97); Platelet Count 425 K/mm3 (140-440); Red Blood Count 2.61 M/mm3 (3.65-5.03); Red Cell Distribution Width 15.8 % (13.2-15.2)
[2017-06-17 05:12] LABS: Calcium 8.6 mg/dL (8.4-10.2)
[2017-06-17] MEDS: APRESOLINE PO SCH ×3 (05:22→21:35)
[2017-06-17] MEDS: HumaLOG SUB-Q SCH ×4 (05:22→17:29)
[2017-06-17] MEDS: ISORDIL TITRADOSE PO SCH ×3 (05:23→21:35)
[2017-06-17 05:51] LABS: Band Neutrophils # (Manual) 0.4 K/mm3; Basophils % (Manual) 0 % (0.0-1.8); Eosinophils % (Manual) 0 % (0.0-4.3); Monocytes % (Manual) 5.5 % (0.0-7.3); Myelocytes # (Manual) 0.1 K/mm3; Nucleated Red Blood Cells 0.5 % (0.0-0.9); Total Cells Counted 200
[2017-06-17 05:52] LABS: Anisocytosis 1+; Platelet Estimate Consistent w Auto
[2017-06-17] MEDS ORDERED: XYLOCAINE 1% 20 mL ONE (08:18)
[2017-06-17] MEDS ORDERED: NACL 0.9% IR ONE (08:23)
[2017-06-17] MEDS ORDERED: XYLOCAINE 1% 20 mL INFILTRATI ONE (08:23)
--- NOTE | 2017-06-17 08:45 | Progress Note ---
Assessment and Plan Fever. RUL atelectasis right lung. Nursing reported some secretions suspicious for NGT feeding Status post cardiac arrest Acute respiratory failure. Metabolic encephalopathy. See neurology comments DKA Seizures clinically, she appears to be controlled Recommendations I discussed bronchoscopy with family at the bedside. Bronchoscopy including indications, benefits and risks was discussed with the patient detail. Specifically, risks of respiratory complications including hemoptysis, pneumothorax, pneumonia and respiratory failure, were discussed. All questions answered. The patient probably understands the procedure and potential benefits and complications and wants to proceed at this point.. Finally agreeable to proceed. We'll adjust ventilator support and PEEP to minimize atelectasis. Also instructed staff to monitor secretions on suctioning as needed Continue antibiotics and monitor WBC, cultures Critical care time was 31 minutes of [id number] evaluation and coordination of care Subjective Date of service: 06/17/17 Principal diagnosis: coma Interval history: Trach, nonresponsive on ventilators support. Objective Vital Signs - 12hr 06/16/17 06/16/17 06/16/17 21:00 21:05 21:06 Temperature Pulse Rate 93 H 93 H 93 H Respiratory 20 Rate Blood Pressure 128/73 128/73 129/73 O2 Sat by Pulse 99 Oximetry O2 Sat by Pulse Oximetry [ Assessment] 06/16/17 06/16/17 06/16/17 21:24 21:30 22:00 Temperature Pulse Rate 90 89 Respiratory 20 14 Rate Blood Pressure 128/73 119/71 O2 Sat by Pulse 100 99 99 Oximetry O2 Sat by Pulse Oximetry [ Assessment] 06/16/17 06/16/17 06/16/17 22:30 23:00 23:29 Temperature Pulse Rate 85 85 86 Respiratory 21 18 Rate Blood Pressure 119/71 115/68 115/68 O2 Sat by Pulse 99 99 100 Oximetry O2 Sat by Pulse Oximetry [ Assessment] 06/16/17 06/16/17 06/17/17 23:30 23:32 00:00 Temperature 98.1 F Pulse Rate 85 86 85 Respiratory 19 18 20 Rate Blood Pressure 115/68 115/68 117/71 O2 Sat by Pulse 100 100 100 Oximetry O2 Sat by Pulse 100 Oximetry [ Assessment] 06/17/17 06/17/17 06/17/17 00:30 01:00 01:30 Temperature Pulse Rate 84 85 86 Respiratory 20 17 19 Rate Blood Pressure 115/68 117/72 117/72 O2 Sat by Pulse 100 100 100 Oximetry O2 Sat by Pulse Oximetry [ Assessment] 06/17/17 06/17/17 06/17/17 02:00 02:30 03:00 Temperature Pulse Rate 85 85 88 Respiratory 18 19 18 Rate Blood Pressure 117/72 122/75 127/79 O2 Sat by Pulse 100 100 100 Oximetry O2 Sat by Pulse Oximetry [ Assessment] 06/17/17 06/17/17 06/17/17 03:18 03:30 04:00 Temperature 98.3 F Pulse Rate 88 88 87 Respiratory 19 17 Rate Blood Pressure 127/79 127/79 130/82 O2 Sat by Pulse 100 100 100 Oximetry O2 Sat by Pulse Oximetry [ Assessment] 06/17/17 06/17/17 06/17/17 04:30 05:00 05:30 Temperature Pulse Rate 86 84 84 Respiratory 15 17 15 Rate Blood Pressure 130/82 127/77 127/77 O2 Sat by Pulse 100 100 100 Oximetry O2 Sat by Pulse Oximetry [ Assessment] 06/17/17 06/17/17 06/17/17 06:00 06:30 07:00 Temperature Pulse Rate 83 84 83 Respiratory 15 16 17 Rate Blood Pressure 134/80 134/80 130/77 O2 Sat by Pulse 100 100 100 Oximetry O2 Sat by Pulse Oximetry [ Assessment] 06/17/17 06/17/17 06/17/17 07:30 08:00 08:30 Temperature Pulse Rate 82 84 83 Respiratory 15 15 17 Rate Blood Pressure 130/77 138/84 138/84 O2 Sat by Pulse 99 100 100 Oximetry O2 Sat by Pulse Oximetry [ Assessment] Constitutional: no acute distress, other Eyes: non-icteric ENT: oropharynx moist, other (trach in position) Neck: supple, no JVD Effort: normal Ascultation: Right: rales, rhonchi, Left: clear, Bilateral: diminished breath sounds Cardiovascular: regular rate and rhythm Gastrointestinal: normoactive bowel sounds, soft, non-tender Integumentary: normal Extremities: no cyanosis, no edema, pink and warm Neurologic: other (unresponsive, rolls her eyes sporadically no posturing. GCS 4) Psychiatric: other CBC and BMP: 06/17/17 04:04 06/17/17 04:04 ABG, PT/INR, D-dimer: ABG POC ABG pH 7.461 (7.35-7.45) H 06/10/17 03:24 ABG pH 7.483 pH Units (7.350-7.450) H 06/17/17 03:51 POC ABG pCO2 36.6 (35-45) 06/10/17 03:24 ABG pCO2 28.7 mm Hg 06/17/17 03:51 POC ABG pO2 131 (80-105) H 06/10/17 03:24 ABG pO2 144.0 mm Hg (80.0-90.0) H 06/17/17 03:51 POC ABG HCO3 26.1 06/10/17 03:24 POC ABG Total CO2 27 06/10/17 03:24 POC ABG O2 Sat 99 06/10/17 03:24 ABG O2 Saturation 98.9 % (95.0-99.0) 06/17/17 03:51 PT/INR, D-dimer PT 12.4 Sec. (12.2-14.9) 06/09/17 04:18 INR 0.88 (0.87-1.13) 06/09/17 04:18 Abnormal lab findings: Abnormal Labs 05/30/17 05/30/17 05/30/17 07:48 07:48 08:32 WBC 11.5 H RBC Hgb Hct MCH 27 L MCHC RDW 16.3 H Plt Count Lymph % (Auto) [place] % (Auto) [place] # Seg Neutrophils % Seg Neuts % (Manual) Lymphocytes % (Manual) Basophils % (Manual) Seg Neutrophils # Seg Neutrophils # Man Lymphocytes # (Manual) Monocytes # (Manual) Basophils # (Manual) POC ABG pH ABG pH POC ABG pCO2 POC ABG pO2 ABG pO2 ABG Base Excess ABG Hemoglobin Oxyhemoglobin Sodium 133 L Potassium Chloride 89.9 L Carbon Dioxide BUN 27 H Creatinine 2.0 H Glucose 741 H* POC Glucose > 500 H Hemoglobin A1c Calcium Phosphorus Magnesium AST Alkaline Phosphatase Total Protein Albumin Urine WBC (Auto) Urine Creatinine Urine Total Protein 05/30/17 05/30/17 05/30/17 08:59 08:59 16:08 WBC 14.5 H RBC Hgb Hct MCH MCHC RDW 16.0 H Plt Count Lymph % (Auto) [place] % (Auto) [place] # Seg Neutrophils % Seg Neuts % (Manual) 95.0 H Lymphocytes % (Manual) 2.0 L Basophils % (Manual) 2.0 H Seg Neutrophils # Seg Neutrophils # Man 13.8 H Lymphocytes # (Manual) 0.3 L Monocytes # (Manual) Basophils # (Manual) 0.3 H POC ABG pH ABG pH POC ABG pCO2 POC ABG pO2 ABG pO2 ABG Base Excess ABG Hemoglobin Oxyhemoglobin Sodium 134 L 135 L Potassium 3.2 L Chloride 90.8 L 93.6 L Carbon Dioxide BUN 28 H 30 H Creatinine 2.0 H 2.1 H Glucose 742 H* 567 H* POC Glucose Hemoglobin A1c Calcium Phosphorus Magnesium AST Alkaline Phosphatase 246 H Total Protein 5.6 L Albumin 2.9 L Urine WBC (Auto) Urine Creatinine Urine Total Protein 05/30/17 05/30/17 05/30/17 16:35 17:55 18:59 WBC RBC Hgb Hct MCH MCHC RDW Plt Count Lymph % (Auto) [place] % (Auto) [place] # Seg Neutrophils % Seg Neuts % (Manual) Lymphocytes % (Manual) Basophils % (Manual) Seg Neutrophils # Seg Neutrophils # Man Lymphocytes # (Manual) Monocytes # (Manual) Basophils # (Manual) POC ABG pH 7.544 H ABG pH POC ABG pCO2 32.0 L POC ABG pO2 155 H ABG pO2 ABG Base Excess ABG Hemoglobin Oxyhemoglobin Sodium Potassium 3.1 L Chloride 93.9 L Carbon Dioxide BUN 30 H Creatinine 2.0 H Glucose 561 H* POC Glucose 497 H Hemoglobin A1c Calcium Phosphorus Magnesium AST Alkaline Phosphatase Total Protein Albumin Urine WBC (Auto) Urine Creatinine Urine Total Protein 05/30/17 05/30/17 05/30/17 19:31 19:31 21:38 WBC RBC Hgb Hct MCH MCHC RDW Plt Count Lymph % (Auto) [place] % (Auto) [place] # Seg Neutrophils % Seg Neuts % (Manual) Lymphocytes % (Manual) Basophils % (Manual) Seg Neutrophils # Seg Neutrophils # Man Lymphocytes # (Manual) Monocytes # (Manual) Basophils # (Manual) POC ABG pH ABG pH POC ABG pCO2 POC ABG pO2 ABG pO2 ABG Base Excess ABG Hemoglobin Oxyhemoglobin Sodium 135 L Potassium 2.9 L* Chloride 93.8 L 95.4 L Carbon Dioxide 20 L BUN 29 H 30 H Creatinine 2.2 H 2.3 H Glucose 478 H 364 H POC Glucose Hemoglobin A1c Calcium Phosphorus 2.20 L D Magnesium 1.40 L AST 42 H Alkaline Phosphatase 177 H Total Protein 5.4 L Albumin 2.4 L Urine WBC (Auto) Urine Creatinine Urine Total Protein 05/30/17 05/31/17 05/31/17 23:06 02:17 05:27 WBC RBC Hgb Hct MCH MCHC RDW Plt Count Lymph % (Auto) [place] % (Auto) [place] # Seg Neutrophils % Seg Neuts % (Manual) Lymphocytes % (Manual) Basophils % (Manual) Seg Neutrophils # Seg Neutrophils # Man Lymphocytes # (Manual) Monocytes # (Manual) Basophils # (Manual) POC ABG pH 7.489 H ABG pH POC ABG pCO2 POC ABG pO2 ABG pO2 ABG Base Excess ABG Hemoglobin Oxyhemoglobin Sodium Potassium 3.2 L 3.5 L Chloride Carbon Dioxide BUN 30 H 31 H Creatinine 2.5 H 2.4 H Glucose 288 H 246 H POC Glucose Hemoglobin A1c Calcium 8.3 L Phosphorus Magnesium AST Alkaline Phosphatase Total Protein Albumin Urine WBC (Auto) Urine Creatinine Urine Total Protein 05/31/17 05/31/17 05/31/17 05:45 05:45 05:45 WBC RBC Hgb Hct MCH MCHC RDW Plt Count Lymph % (Auto) [place] % (Auto) [place] # Seg Neutrophils % Seg Neuts % (Manual) Lymphocytes % (Manual) Basophils % (Manual) Seg Neutrophils # Seg Neutrophils # Man Lymphocytes # (Manual) Monocytes # (Manual) Basophils # (Manual) POC ABG pH ABG pH POC ABG pCO2 POC ABG pO2 ABG pO2 ABG Base Excess ABG Hemoglobin Oxyhemoglobin Sodium Potassium Chloride Carbon Dioxide BUN 32 H 30 H Creatinine 2.5 H 2.6 H Glucose 266 H 271 H POC Glucose Hemoglobin A1c 9.7 H Calcium 8.3 L 8.2 L Phosphorus Magnesium AST Alkaline Phosphatase 145 H Total Protein 4.7 L Albumin 1.8 L Urine WBC (Auto) Urine Creatinine Urine Total Protein 05/31/17 05/31/17 05/31/17 08:18 09:20 12:18 WBC RBC Hgb Hct MCH MCHC RDW Plt Count Lymph % (Auto) [place] % (Auto) [place] # Seg Neutrophils % Seg Neuts % (Manual) Lymphocytes % (Manual) Basophils % (Manual) Seg Neutrophils # Seg Neutrophils # Man Lymphocytes # (Manual) Monocytes # (Manual) Basophils # (Manual) POC ABG pH ABG pH POC ABG pCO2 POC ABG pO2 ABG pO2 ABG Base Excess ABG Hemoglobin Oxyhemoglobin Sodium Potassium Chloride Carbon Dioxide BUN Creatinine Glucose POC Glucose 300 H 254 H 170 H Hemoglobin A1c Calcium Phosphorus Magnesium AST Alkaline Phosphatase Total Protein Albumin Urine WBC (Auto) Urine Creatinine Urine Total Protein 05/31/17 05/31/17 05/31/17 14:09 14:17 14:27 WBC RBC Hgb Hct MCH MCHC RDW Plt Count Lymph % (Auto) [place] % (Auto) [place] # Seg Neutrophils % Seg Neuts % (Manual) Lymphocytes % (Manual) Basophils % (Manual) Seg Neutrophils # Seg Neutrophils # Man Lymphocytes # (Manual) Monocytes # (Manual) Basophils # (Manual) POC ABG pH ABG pH POC ABG pCO2 POC ABG pO2 ABG pO2 ABG Base Excess ABG Hemoglobin Oxyhemoglobin Sodium Potassium 3.4 L Chloride 107.1 H Carbon Dioxide BUN 30 H Creatinine 2.6 H Glucose 38 L* POC Glucose < 40 L 189 H Hemoglobin A1c Calcium 7.6 L Phosphorus Magnesium AST Alkaline Phosphatase Total Protein Albumin Urine WBC (Auto) Urine Creatinine Urine Total Protein 05/31/17 05/31/17 05/31/17 15:01 16:01 17:19 WBC RBC Hgb Hct MCH MCHC RDW Plt Count Lymph % (Auto) [place] % (Auto) [place] # Seg Neutrophils % Seg Neuts % (Manual) Lymphocytes % (Manual) Basophils % (Manual) Seg Neutrophils # Seg Neutrophils # Man Lymphocytes # (Manual) Monocytes # (Manual) Basophils # (Manual) POC ABG pH ABG pH POC ABG pCO2 POC ABG pO2 ABG pO2 ABG Base Excess ABG Hemoglobin Oxyhemoglobin Sodium Potassium Chloride Carbon Dioxide BUN Creatinine Glucose POC Glucose 130 H 165 H 131 H Hemoglobin A1c Calcium Phosphorus Magnesium AST Alkaline Phosphatase Total Protein Albumin Urine WBC (Auto) Urine Creatinine Urine Total Protein 05/31/17 05/31/17 05/31/17 18:46 19:54 20:36 WBC RBC Hgb Hct MCH MCHC RDW Plt Count Lymph % (Auto) [place] % (Auto) [place] # Seg Neutrophils % Seg Neuts % (Manual) Lymphocytes % (Manual) Basophils % (Manual) Seg Neutrophils # Seg Neutrophils # Man Lymphocytes # (Manual) Monocytes # (Manual) Basophils # (Manual) POC ABG pH ABG pH POC ABG pCO2 POC ABG pO2 ABG pO2 ABG Base Excess ABG Hemoglobin Oxyhemoglobin Sodium Potassium Chloride Carbon Dioxide BUN 29 H Creatinine 2.4 H Glucose 124 H POC Glucose 128 H 157 H Hemoglobin A1c Calcium 7.9 L Phosphorus Magnesium AST Alkaline Phosphatase Total Protein Albumin Urine WBC (Auto) Urine Creatinine Urine Total Protein 05/31/17 06/01/17 06/01/17 21:41 03:22 04:06 WBC RBC Hgb Hct MCH MCHC RDW Plt Count Lymph % (Auto) [place] % (Auto) [place] # Seg Neutrophils % Seg Neuts % (Manual) Lymphocytes % (Manual) Basophils % (Manual) Seg Neutrophils # Seg Neutrophils # Man Lymphocytes # (Manual) Monocytes # (Manual) Basophils # (Manual) POC ABG pH ABG pH POC ABG pCO2 POC ABG pO2 ABG pO2 ABG Base Excess ABG Hemoglobin Oxyhemoglobin Sodium Potassium Chloride Carbon Dioxide 19 L BUN 29 H Creatinine 2.6 H Glucose 205 H POC Glucose 158 H 251 H Hemoglobin A1c Calcium 7.8 L Phosphorus Magnesium AST Alkaline Phosphatase Total Protein Albumin Urine WBC (Auto) Urine Creatinine Urine Total Protein 06/01/17 06/01/17 06/01/17 04:30 09:15 09:59 WBC 19.7 H RBC Hgb 10.0 L Hct MCH 27 L MCHC RDW 17.1 H Plt Count Lymph % (Auto) [place] % (Auto) [place] # Seg Neutrophils % Seg Neuts % (Manual) Lymphocytes % (Manual) Basophils % (Manual) Seg Neutrophils # Seg Neutrophils # Man Lymphocytes # (Manual) Monocytes # (Manual) Basophils # (Manual) POC ABG pH 7.464 H ABG pH POC ABG pCO2 31.3 L POC ABG pO2 ABG pO2 ABG Base Excess ABG Hemoglobin Oxyhemoglobin Sodium Potassium Chloride Carbon Dioxide BUN Creatinine Glucose POC Glucose 330 H Hemoglobin A1c Calcium Phosphorus Magnesium AST Alkaline Phosphatase Total Protein Albumin Urine WBC (Auto) Urine Creatinine Urine Total Protein 06/01/17 06/01/17 06/01/17 11:36 12:25 13:43 WBC RBC Hgb Hct MCH MCHC RDW Plt Count Lymph % (Auto) [place] % (Auto) [place] # Seg Neutrophils % Seg Neuts % (Manual) Lymphocytes % (Manual) Basophils % (Manual) Seg Neutrophils # Seg Neutrophils # Man Lymphocytes # (Manual) Monocytes # (Manual) Basophils # (Manual) POC ABG pH ABG pH POC ABG pCO2 POC ABG pO2 ABG pO2 ABG Base Excess ABG Hemoglobin Oxyhemoglobin Sodium Potassium Chloride Carbon Dioxide BUN Creatinine Glucose POC Glucose 431 H 434 H 445 H Hemoglobin A1c Calcium Phosphorus Magnesium AST Alkaline Phosphatase Total Protein Albumin Urine WBC (Auto) Urine Creatinine Urine Total Protein 06/01/17 06/01/17 06/01/17 14:26 15:46 16:03 WBC RBC Hgb Hct MCH MCHC RDW Plt Count Lymph % (Auto) [place] % (Auto) [place] # Seg Neutrophils % Seg Neuts % (Manual) Lymphocytes % (Manual) Basophils % (Manual) Seg Neutrophils # Seg Neutrophils # Man Lymphocytes # (Manual) Monocytes # (Manual) Basophils # (Manual) POC ABG pH ABG pH POC ABG pCO2 POC ABG pO2 ABG pO2 ABG Base Excess ABG Hemoglobin Oxyhemoglobin Sodium Potassium Chloride Carbon Dioxide BUN Creatinine Glucose POC Glucose 310 H 292 H 244 H Hemoglobin A1c Calcium Phosphorus Magnesium AST Alkaline Phosphatase Total Protein Albumin Urine WBC (Auto) Urine Creatinine Urine Total Protein 06/01/17 06/01/17 06/01/17 16:59 17:49 19:05 WBC RBC Hgb Hct MCH MCHC RDW Plt Count Lymph % (Auto) [place] % (Auto) [place] # Seg Neutrophils % Seg Neuts % (Manual) Lymphocytes % (Manual) Basophils % (Manual) Seg Neutrophils # Seg Neutrophils # Man Lymphocytes # (Manual) Monocytes # (Manual) Basophils # (Manual) POC ABG pH ABG pH POC ABG pCO2 POC ABG pO2 ABG pO2 ABG Base Excess ABG Hemoglobin Oxyhemoglobin Sodium Potassium Chloride Carbon Dioxide BUN Creatinine Glucose POC Glucose 260 H 203 H 156 H Hemoglobin A1c Calcium Phosphorus Magnesium AST Alkaline Phosphatase Total Protein Albumin Urine WBC (Auto) Urine Creatinine Urine Total Protein 06/02/17 06/02/17 06/02/17 00:09 01:06 02:31 WBC RBC Hgb Hct MCH MCHC RDW Plt Count Lymph % (Auto) [place] % (Auto) [place] # Seg Neutrophils % Seg Neuts % (Manual) Lymphocytes % (Manual) Basophils % (Manual) Seg Neutrophils # Seg Neutrophils # Man Lymphocytes # (Manual) Monocytes # (Manual) Basophils # (Manual) POC ABG pH ABG pH POC ABG pCO2 POC ABG pO2 ABG pO2 ABG Base Excess ABG Hemoglobin Oxyhemoglobin Sodium Potassium Chloride Carbon Dioxide BUN Creatinine Glucose POC Glucose 137 H 146 H 182 H Hemoglobin A1c Calcium Phosphorus Magnesium AST Alkaline Phosphatase Total Protein Albumin Urine WBC (Auto) Urine Creatinine Urine Total Protein 06/02/17 06/02/17 06/02/17 04:03 04:24 04:24 WBC 21.0 H RBC 3.62 L Hgb Hct 29.6 L MCH MCHC RDW 16.5 H Plt Count Lymph % (Auto) [place] % (Auto) [place] # Seg Neutrophils % Seg Neuts % (Manual) 98.0 H Lymphocytes % (Manual) 1.0 L Basophils % (Manual) Seg Neutrophils # Seg Neutrophils # Man 20.6 H Lymphocytes # (Manual) 0.2 L Monocytes # (Manual) Basophils # (Manual) POC ABG pH ABG pH POC ABG pCO2 POC ABG pO2 ABG pO2 ABG Base Excess ABG Hemoglobin Oxyhemoglobin Sodium Potassium Chloride Carbon Dioxide 20 L BUN 36 H Creatinine 2.8 H Glucose 137 H POC Glucose 150 H Hemoglobin A1c Calcium 7.5 L Phosphorus 4.60 H Magnesium 1.50 L AST Alkaline Phosphatase 132 H Total Protein 4.1 L Albumin 1.7 L Urine WBC (Auto) Urine Creatinine Urine Total Protein 06/02/17 06/02/17 06/02/17 05:01 05:14 06:20 WBC RBC Hgb Hct MCH MCHC RDW Plt Count Lymph % (Auto) [place] % (Auto) [place] # Seg Neutrophils % Seg Neuts % (Manual) Lymphocytes % (Manual) Basophils % (Manual) Seg Neutrophils # Seg Neutrophils # Man Lymphocytes # (Manual) Monocytes # (Manual) Basophils # (Manual) POC ABG pH 7.517 H ABG pH POC ABG pCO2 28.4 L POC ABG pO2 67 L ABG pO2 ABG Base Excess ABG Hemoglobin Oxyhemoglobin Sodium Potassium Chloride Carbon Dioxide BUN Creatinine Glucose POC Glucose 137 H 163 H Hemoglobin A1c Calcium Phosphorus Magnesium AST Alkaline Phosphatase Total Protein Albumin Urine WBC (Auto) Urine Creatinine Urine Total Protein 06/02/17 06/02/17 06/02/17 07:43 09:40 10:18 WBC RBC Hgb Hct MCH MCHC RDW Plt Count Lymph % (Auto) [place] % (Auto) [place] # Seg Neutrophils % Seg Neuts % (Manual) Lymphocytes % (Manual) Basophils % (Manual) Seg Neutrophils # Seg Neutrophils # Man Lymphocytes # (Manual) Monocytes # (Manual) Basophils # (Manual) POC ABG pH ABG pH POC ABG pCO2 POC ABG pO2 ABG pO2 ABG Base Excess ABG Hemoglobin Oxyhemoglobin Sodium Potassium Chloride Carbon Dioxide BUN Creatinine Glucose POC Glucose 135 H 196 H Hemoglobin A1c Calcium Phosphorus Magnesium AST Alkaline Phosphatase Total Protein Albumin Urine WBC (Auto) Urine Creatinine Urine Total Protein < 4 L 06/02/17 06/02/17 06/02/17 10:33 11:55 17:39 WBC RBC Hgb Hct MCH MCHC RDW Plt Count Lymph % (Auto) [place] % (Auto) [place] # Seg Neutrophils % Seg Neuts % (Manual) Lymphocytes % (Manual) Basophils % (Manual) Seg Neutrophils # Seg Neutrophils # Man Lymphocytes # (Manual) Monocytes # (Manual) Basophils # (Manual) POC ABG pH ABG pH POC ABG pCO2 POC ABG pO2 ABG pO2 ABG Base Excess ABG Hemoglobin Oxyhemoglobin Sodium Potassium Chloride Carbon Dioxide BUN Creatinine Glucose POC Glucose 188 H 110 H 150 H Hemoglobin A1c Calcium Phosphorus Magnesium AST Alkaline Phosphatase Total Protein Albumin Urine WBC (Auto) Urine Creatinine Urine Total Protein 06/02/17 06/02/17 06/03/17 18:12 21:32 02:02 WBC RBC Hgb Hct MCH MCHC RDW Plt Count Lymph % (Auto) [place] % (Auto) [place] # Seg Neutrophils % Seg Neuts % (Manual) Lymphocytes % (Manual) Basophils % (Manual) Seg Neutrophils # Seg Neutrophils # Man Lymphocytes # (Manual) Monocytes # (Manual) Basophils # (Manual) POC ABG pH ABG pH POC ABG pCO2 POC ABG pO2 ABG pO2 ABG Base Excess ABG Hemoglobin Oxyhemoglobin Sodium Potassium Chloride Carbon Dioxide BUN Creatinine Glucose POC Glucose 131 H 143 H 191 H Hemoglobin A1c Calcium Phosphorus Magnesium AST Alkaline Phosphatase Total Protein Albumin Urine WBC (Auto) Urine Creatinine Urine Total Protein 06/03/17 06/03/17 06/03/17 04:14 04:14 05:06 WBC 21.1 H RBC Hgb Hct MCH 27 L MCHC RDW 15.9 H Plt Count 447 H Lymph % (Auto) [place] % (Auto) [place] # Seg Neutrophils % Seg Neuts % (Manual) 94.0 H Lymphocytes % (Manual) 3.0 L Basophils % (Manual) Seg Neutrophils # Seg Neutrophils # Man 19.8 H Lymphocytes # (Manual) 0.6 L Monocytes # (Manual) Basophils # (Manual) POC ABG pH ABG pH POC ABG pCO2 28.6 L POC ABG pO2 112 H ABG pO2 ABG Base Excess ABG Hemoglobin Oxyhemoglobin Sodium Potassium Chloride Carbon Dioxide 14 L BUN 45 H Creatinine 2.8 H Glucose 211 H POC Glucose Hemoglobin A1c Calcium 8.0 L Phosphorus Magnesium AST Alkaline Phosphatase Total Protein Albumin Urine WBC (Auto) Urine Creatinine Urine Total Protein 06/03/17 06/03/17 06/03/17 06:00 10:20 13:43 WBC RBC Hgb Hct MCH MCHC RDW Plt Count Lymph % (Auto) [place] % (Auto) [place] # Seg Neutrophils % Seg Neuts % (Manual) Lymphocytes % (Manual) Basophils % (Manual) Seg Neutrophils # Seg Neutrophils # Man Lymphocytes # (Manual) Monocytes # (Manual) Basophils # (Manual) POC ABG pH ABG pH POC ABG pCO2 POC ABG pO2 ABG pO2 ABG Base Excess ABG Hemoglobin Oxyhemoglobin Sodium Potassium Chloride Carbon Dioxide BUN Creatinine Glucose POC Glucose 224 H 226 H 296 H Hemoglobin A1c Calcium Phosphorus Magnesium AST Alkaline Phosphatase Total Protein Albumin Urine WBC (Auto) Urine Creatinine Urine Total Protein 06/03/17 06/03/17 06/03/17 17:38 19:23 20:45 WBC RBC Hgb Hct MCH MCHC RDW Plt Count Lymph % (Auto) [place] % (Auto) [place] # Seg Neutrophils % Seg Neuts % (Manual) Lymphocytes % (Manual) Basophils % (Manual) Seg Neutrophils # Seg Neutrophils # Man Lymphocytes # (Manual) Monocytes # (Manual) Basophils # (Manual) POC ABG pH ABG pH POC ABG pCO2 POC ABG pO2 ABG pO2 ABG Base Excess ABG Hemoglobin Oxyhemoglobin Sodium Potassium Chloride Carbon Dioxide BUN Creatinine Glucose POC Glucose 295 H 275 H 338 H Hemoglobin A1c Calcium Phosphorus Magnesium AST Alkaline Phosphatase Total Protein Albumin Urine WBC (Auto) Urine Creatinine Urine Total Protein 06/03/17 06/03/17 06/04/17 21:50 23:08 00:16 WBC RBC Hgb Hct MCH MCHC RDW Plt Count Lymph % (Auto) [place] % (Auto) [place] # Seg Neutrophils % Seg Neuts % (Manual) Lymphocytes % (Manual) Basophils % (Manual) Seg Neutrophils # Seg Neutrophils # Man Lymphocytes # (Manual) Monocytes # (Manual) Basophils # (Manual) POC ABG pH ABG pH POC ABG pCO2 POC ABG pO2 ABG pO2 ABG Base Excess ABG Hemoglobin Oxyhemoglobin Sodium Potassium Chloride Carbon Dioxide BUN Creatinine Glucose POC Glucose 223 H 214 H 226 H Hemoglobin A1c Calcium Phosphorus Magnesium AST Alkaline Phosphatase Total Protein Albumin Urine WBC (Auto) Urine Creatinine Urine Total Protein 06/04/17 06/04/17 06/04/17 01:05 02:07 03:27 WBC RBC Hgb Hct MCH MCHC RDW Plt Count Lymph % (Auto) [place] % (Auto) [place] # Seg Neutrophils % Seg Neuts % (Manual) Lymphocytes % (Manual) Basophils % (Manual) Seg Neutrophils # Seg Neutrophils # Man Lymphocytes # (Manual) Monocytes # (Manual) Basophils # (Manual) POC ABG pH ABG pH POC ABG pCO2 POC ABG pO2 ABG pO2 ABG Base Excess ABG Hemoglobin Oxyhemoglobin Sodium Potassium Chloride Carbon Dioxide BUN Creatinine Glucose POC Glucose 217 H 229 H 185 H Hemoglobin A1c Calcium Phosphorus Magnesium AST Alkaline Phosphatase Total Protein Albumin Urine WBC (Auto) Urine Creatinine Urine Total Protein 06/04/17 06/04/17 06/04/17 03:52 04:05 04:05 WBC 19.6 H RBC Hgb Hct MCH 26 L MCHC RDW 15.6 H Plt Count 564 H Lymph % (Auto) 7.3 L [place] % (Auto) 10.8 H [place] # 2.1 H Seg Neutrophils % 81.4 H Seg Neuts % (Manual) Lymphocytes % (Manual) Basophils % (Manual) Seg Neutrophils # 15.9 H Seg Neutrophils # Man Lymphocytes # (Manual) Monocytes # (Manual) Basophils # (Manual) POC ABG pH ABG pH POC ABG pCO2 POC ABG pO2 ABG pO2 ABG Base Excess ABG Hemoglobin Oxyhemoglobin Sodium Potassium Chloride Carbon Dioxide 17 L BUN 52 H Creatinine 2.5 H Glucose 163 H POC Glucose 181 H Hemoglobin A1c Calcium 7.9 L Phosphorus Magnesium AST Alkaline Phosphatase Total Protein Albumin Urine WBC (Auto) Urine Creatinine Urine Total Protein 06/04/17 06/04/17 06/04/17 04:56 05:39 06:12 WBC RBC Hgb Hct MCH MCHC RDW Plt Count Lymph % (Auto) [place] % (Auto) [place] # Seg Neutrophils % Seg Neuts % (Manual) Lymphocytes % (Manual) Basophils % (Manual) Seg Neutrophils # Seg Neutrophils # Man Lymphocytes # (Manual) Monocytes # (Manual) Basophils # (Manual) POC ABG pH 7.486 H ABG pH POC ABG pCO2 26.8 L POC ABG pO2 ABG pO2 ABG Base Excess ABG Hemoglobin Oxyhemoglobin Sodium Potassium Chloride Carbon Dioxide BUN Creatinine Glucose POC Glucose 208 H 225 H Hemoglobin A1c Calcium Phosphorus Magnesium AST Alkaline Phosphatase Total Protein Albumin Urine WBC (Auto) Urine Creatinine Urine Total Protein 06/04/17 06/04/17 06/04/17 07:07 08:06 09:15 WBC RBC Hgb Hct MCH MCHC RDW Plt Count Lymph % (Auto) [place] % (Auto) [place] # Seg Neutrophils % Seg Neuts % (Manual) Lymphocytes % (Manual) Basophils % (Manual) Seg Neutrophils # Seg Neutrophils # Man Lymphocytes # (Manual) Monocytes # (Manual) Basophils # (Manual) POC ABG pH ABG pH POC ABG pCO2 POC ABG pO2 ABG pO2 ABG Base Excess ABG Hemoglobin Oxyhemoglobin Sodium Potassium Chloride Carbon Dioxide BUN Creatinine Glucose POC Glucose 201 H 171 H 178 H Hemoglobin A1c Calcium Phosphorus Magnesium AST Alkaline Phosphatase Total Protein Albumin Urine WBC (Auto) Urine Creatinine Urine Total Protein 06/04/17 06/04/17 06/04/17 10:16 12:22 17:21 WBC RBC Hgb Hct MCH MCHC RDW Plt Count Lymph % (Auto) [place] % (Auto) [place] # Seg Neutrophils % Seg Neuts % (Manual) Lymphocytes % (Manual) Basophils % (Manual) Seg Neutrophils # Seg Neutrophils # Man Lymphocytes # (Manual) Monocytes # (Manual) Basophils # (Manual) POC ABG pH ABG pH POC ABG pCO2 POC ABG pO2 ABG pO2 ABG Base Excess ABG Hemoglobin Oxyhemoglobin Sodium Potassium Chloride Carbon Dioxide BUN Creatinine Glucose POC Glucose 191 H 188 H Hemoglobin A1c Calcium Phosphorus Magnesium AST Alkaline Phosphatase Total Protein Albumin Urine WBC (Auto) Urine Creatinine 78.7 H Urine Total Protein 197 H 06/04/17 06/04/17 06/05/17 17:56 22:10 00:00 WBC RBC Hgb Hct MCH MCHC RDW Plt Count Lymph % (Auto) [place] % (Auto) [place] # Seg Neutrophils % Seg Neuts % (Manual) Lymphocytes % (Manual) Basophils % (Manual) Seg Neutrophils # Seg Neutrophils # Man Lymphocytes # (Manual) Monocytes # (Manual) Basophils # (Manual) POC ABG pH ABG pH POC ABG pCO2 POC ABG pO2 ABG pO2 ABG Base Excess ABG Hemoglobin Oxyhemoglobin Sodium Potassium Chloride Carbon Dioxide 17 L BUN 55 H Creatinine 2.3 H Glucose 300 H POC Glucose 266 H 337 H Hemoglobin A1c Calcium 7.4 L Phosphorus Magnesium AST Alkaline Phosphatase Total Protein Albumin Urine WBC (Auto) Urine Creatinine Urine Total Protein 06/05/17 06/05/17 06/05/17 03:26 04:11 05:13 WBC RBC Hgb Hct MCH MCHC RDW Plt Count Lymph % (Auto) [place] % (Auto) [place] # Seg Neutrophils % Seg Neuts % (Manual) Lymphocytes % (Manual) Basophils % (Manual) Seg Neutrophils # Seg Neutrophils # Man Lymphocytes # (Manual) Monocytes # (Manual) Basophils # (Manual) POC ABG pH 7.586 H ABG pH POC ABG pCO2 22.6 L POC ABG pO2 179 H ABG pO2 ABG Base Excess ABG Hemoglobin Oxyhemoglobin Sodium Potassium Chloride Carbon Dioxide 19 L BUN 55 H Creatinine 2.2 H Glucose 226 H POC Glucose 220 H Hemoglobin A1c Calcium 7.7 L Phosphorus Magnesium AST Alkaline Phosphatase Total Protein Albumin Urine WBC (Auto) Urine Creatinine Urine Total Protein 06/05/17 06/05/17 06/05/17 12:42 18:24 21:23 WBC RBC Hgb Hct MCH MCHC RDW Plt Count Lymph % (Auto) [place] % (Auto) [place] # Seg Neutrophils % Seg Neuts % (Manual) Lymphocytes % (Manual) Basophils % (Manual) Seg Neutrophils # Seg Neutrophils # Man Lymphocytes # (Manual) Monocytes # (Manual) Basophils # (Manual) POC ABG pH ABG pH POC ABG pCO2 POC ABG pO2 ABG pO2 ABG Base Excess ABG Hemoglobin Oxyhemoglobin Sodium Potassium Chloride Carbon Dioxide BUN Creatinine Glucose POC Glucose 168 H 121 H 166 H Hemoglobin A1c Calcium Phosphorus Magnesium AST Alkaline Phosphatase Total Protein Albumin Urine WBC (Auto) Urine Creatinine Urine Total Protein 06/06/17 06/06/17 06/06/17 00:14 04:11 06:19 WBC RBC Hgb Hct MCH MCHC RDW Plt Count Lymph % (Auto) [place] % (Auto) [place] # Seg Neutrophils % Seg Neuts % (Manual) Lymphocytes % (Manual) Basophils % (Manual) Seg Neutrophils # Seg Neutrophils # Man Lymphocytes # (Manual) Monocytes # (Manual) Basophils # (Manual) POC ABG pH ABG pH POC ABG pCO2 33.0 L POC ABG pO2 ABG pO2 ABG Base Excess ABG Hemoglobin Oxyhemoglobin Sodium Potassium Chloride Carbon Dioxide BUN Creatinine Glucose POC Glucose 179 H 180 H Hemoglobin A1c Calcium Phosphorus Magnesium AST Alkaline Phosphatase Total Protein Albumin Urine WBC (Auto) Urine Creatinine Urine Total Protein 06/06/17 06/06/17 06/06/17 12:19 18:38 20:01 WBC RBC Hgb Hct MCH MCHC RDW Plt Count Lymph % (Auto) [place] % (Auto) [place] # Seg Neutrophils % Seg Neuts % (Manual) Lymphocytes % (Manual) Basophils % (Manual) Seg Neutrophils # Seg Neutrophils # Man Lymphocytes # (Manual) Monocytes # (Manual) Basophils # (Manual) POC ABG pH ABG pH POC ABG pCO2 POC ABG pO2 ABG pO2 ABG Base Excess ABG Hemoglobin Oxyhemoglobin Sodium Potassium Chloride Carbon Dioxide BUN Creatinine Glucose POC Glucose 123 H 56 L 65 L Hemoglobin A1c Calcium Phosphorus Magnesium AST Alkaline Phosphatase Total Protein Albumin Urine WBC (Auto) Urine Creatinine Urine Total Protein 06/06/17 06/07/17 06/07/17 23:51 04:25 05:29 WBC RBC Hgb Hct MCH MCHC RDW Plt Count Lymph % (Auto) [place] % (Auto) [place] # Seg Neutrophils % Seg Neuts % (Manual) Lymphocytes % (Manual) Basophils % (Manual) Seg Neutrophils # Seg Neutrophils # Man Lymphocytes # (Manual) Monocytes # (Manual) Basophils # (Manual) POC ABG pH 7.470 H ABG pH POC ABG pCO2 33.6 L POC ABG pO2 ABG pO2 ABG Base Excess ABG Hemoglobin Oxyhemoglobin Sodium Potassium Chloride Carbon Dioxide BUN Creatinine Glucose POC Glucose 118 H 183 H Hemoglobin A1c Calcium Phosphorus Magnesium AST Alkaline Phosphatase Total Protein Albumin Urine WBC (Auto) Urine Creatinine Urine Total Protein 06/07/17 06/07/17 06/07/17 07:51 12:00 18:08 WBC RBC Hgb Hct MCH MCHC RDW Plt Count Lymph % (Auto) [place] % (Auto) [place] # Seg Neutrophils % Seg Neuts % (Manual) Lymphocytes % (Manual) Basophils % (Manual) Seg Neutrophils # Seg Neutrophils # Man Lymphocytes # (Manual) Monocytes # (Manual) Basophils # (Manual) POC ABG pH ABG pH POC ABG pCO2 POC ABG pO2 ABG pO2 ABG Base Excess ABG Hemoglobin Oxyhemoglobin Sodium 135 L Potassium Chloride Carbon Dioxide 21 L BUN 50 H Creatinine 1.8 H Glucose 232 H POC Glucose 361 H 249 H Hemoglobin A1c Calcium 8.0 L Phosphorus Magnesium AST Alkaline Phosphatase Total Protein Albumin Urine WBC (Auto) Urine Creatinine Urine Total Protein 03/06/08/17 06/08/17 23:53 05:25 11:50 WBC RBC Hgb Hct MCH MCHC RDW Plt Count Lymph % (Auto) [place] % (Auto) [place] # Seg Neutrophils % Seg Neuts % (Manual) Lymphocytes % (Manual) Basophils % (Manual) Seg Neutrophils # Seg Neutrophils # Man Lymphocytes # (Manual) Monocytes # (Manual) Basophils # (Manual) POC ABG pH ABG pH POC ABG pCO2 POC ABG pO2 ABG pO2 ABG Base Excess ABG Hemoglobin Oxyhemoglobin Sodium Potassium Chloride Carbon Dioxide BUN Creatinine Glucose POC Glucose 190 H 136 H 166 H Hemoglobin A1c Calcium Phosphorus Magnesium AST Alkaline Phosphatase Total Protein Albumin Urine WBC (Auto) Urine Creatinine Urine Total Protein 06/08/17 06/08/17 06/08/17 14:20 14:20 19:05 WBC 15.7 H RBC 3.49 L Hgb 9.4 L Hct 27.9 L MCH 27 L MCHC RDW 15.3 H Plt Count 590 H Lymph % (Auto) [place] % (Auto) [place] # Seg Neutrophils % Seg Neuts % (Manual) Lymphocytes % (Manual) Basophils % (Manual) Seg Neutrophils # Seg Neutrophils # Man Lymphocytes # (Manual) Monocytes # (Manual) Basophils # (Manual) POC ABG pH ABG pH POC ABG pCO2 POC ABG pO2 ABG pO2 ABG Base Excess ABG Hemoglobin Oxyhemoglobin Sodium Potassium Chloride Carbon Dioxide BUN 55 H Creatinine 1.7 H Glucose 117 H POC Glucose 135 H Hemoglobin A1c Calcium Phosphorus Magnesium AST Alkaline Phosphatase Total Protein Albumin Urine WBC (Auto) Urine Creatinine Urine Total Protein 06/08/17 06/08/17 06/09/17 21:52 23:55 04:18 WBC RBC Hgb Hct MCH MCHC RDW Plt Count Lymph % (Auto) [place] % (Auto) [place] # Seg Neutrophils % Seg Neuts % (Manual) Lymphocytes % (Manual) Basophils % (Manual) Seg Neutrophils # Seg Neutrophils # Man Lymphocytes # (Manual) Monocytes # (Manual) Basophils # (Manual) POC ABG pH ABG pH POC ABG pCO2 POC ABG pO2 ABG pO2 ABG Base Excess ABG Hemoglobin Oxyhemoglobin Sodium Potassium Chloride Carbon Dioxide BUN 51 H Creatinine 1.6 H Glucose POC Glucose 186 H 209 H Hemoglobin A1c Calcium Phosphorus Magnesium AST Alkaline Phosphatase Total Protein Albumin Urine WBC (Auto) Urine Creatinine Urine Total Protein 06/09/17 06/09/17 06/09/17 09:56 12:42 18:09 WBC RBC Hgb Hct MCH MCHC RDW Plt Count Lymph % (Auto) [place] % (Auto) [place] # Seg Neutrophils % Seg Neuts % (Manual) Lymphocytes % (Manual) Basophils % (Manual) Seg Neutrophils # Seg Neutrophils # Man Lymphocytes # (Manual) Monocytes # (Manual) Basophils # (Manual) POC ABG pH ABG pH POC ABG pCO2 POC ABG pO2 ABG pO2 ABG Base Excess ABG Hemoglobin Oxyhemoglobin Sodium Potassium Chloride Carbon Dioxide BUN Creatinine Glucose POC Glucose 63 L 142 H 166 H Hemoglobin A1c Calcium Phosphorus Magnesium AST Alkaline Phosphatase Total Protein Albumin Urine WBC (Auto) Urine Creatinine Urine Total Protein 06/09/17 06/10/17 06/10/17 23:39 03:24 04:28 WBC 15.1 H RBC 2.99 L Hgb 8.1 L Hct 23.6 L MCH 27 L MCHC 35 H RDW 15.4 H Plt Count 500 H Lymph % (Auto) [place] % (Auto) [place] # Seg Neutrophils % Seg Neuts % (Manual) Lymphocytes % (Manual) Basophils % (Manual) Seg Neutrophils # Seg Neutrophils # Man Lymphocytes # (Manual) Monocytes # (Manual) Basophils # (Manual) POC ABG pH 7.461 H ABG pH POC ABG pCO2 POC ABG pO2 131 H ABG pO2 ABG Base Excess ABG Hemoglobin Oxyhemoglobin Sodium Potassium Chloride Carbon Dioxide BUN Creatinine Glucose POC Glucose 284 H Hemoglobin A1c Calcium Phosphorus Magnesium AST Alkaline Phosphatase Total Protein Albumin Urine WBC (Auto) Urine Creatinine Urine Total Protein 06/10/17 06/10/17 06/10/17 04:28 05:10 12:41 WBC RBC Hgb Hct MCH MCHC RDW Plt Count Lymph % (Auto) [place] % (Auto) [place] # Seg Neutrophils % Seg Neuts % (Manual) Lymphocytes % (Manual) Basophils % (Manual) Seg Neutrophils # Seg Neutrophils # Man Lymphocytes # (Manual) Monocytes # (Manual) Basophils # (Manual) POC ABG pH ABG pH POC ABG pCO2 POC ABG pO2 ABG pO2 ABG Base Excess ABG Hemoglobin Oxyhemoglobin Sodium Potassium Chloride Carbon Dioxide BUN 53 H Creatinine 1.8 H Glucose 185 H POC Glucose 190 H 50 L Hemoglobin A1c Calcium Phosphorus Magnesium AST Alkaline Phosphatase Total Protein Albumin Urine WBC (Auto) Urine Creatinine Urine Total Protein 06/10/17 06/10/17 06/11/17 14:35 18:31 00:09 WBC RBC Hgb Hct MCH MCHC RDW Plt Count Lymph % (Auto) [place] % (Auto) [place] # Seg Neutrophils % Seg Neuts % (Manual) Lymphocytes % (Manual) Basophils % (Manual) Seg Neutrophils # Seg Neutrophils # Man Lymphocytes # (Manual) Monocytes # (Manual) Basophils # (Manual) POC ABG pH ABG pH POC ABG pCO2 POC ABG pO2 ABG pO2 ABG Base Excess ABG Hemoglobin Oxyhemoglobin Sodium Potassium Chloride Carbon Dioxide BUN Creatinine Glucose POC Glucose 58 L 55 L 126 H Hemoglobin A1c Calcium Phosphorus Magnesium AST Alkaline Phosphatase Total Protein Albumin Urine WBC (Auto) Urine Creatinine Urine Total Protein 06/11/17 06/11/17 06/11/17 05:32 06:01 06:03 WBC 15.6 H RBC 3.03 L Hgb 8.3 L Hct 24.0 L MCH MCHC 35 H RDW Plt Count 492 H Lymph % (Auto) [place] % (Auto) [place] # Seg Neutrophils % Seg Neuts % (Manual) Lymphocytes % (Manual) Basophils % (Manual) Seg Neutrophils # Seg Neutrophils # Man Lymphocytes # (Manual) Monocytes # (Manual) Basophils # (Manual) POC ABG pH ABG pH POC ABG pCO2 POC ABG pO2 ABG pO2 ABG Base Excess ABG Hemoglobin Oxyhemoglobin Sodium Potassium Chloride Carbon Dioxide BUN 55 H Creatinine 1.8 H Glucose 228 H POC Glucose 219 H Hemoglobin A1c Calcium Phosphorus Magnesium AST Alkaline Phosphatase Total Protein Albumin Urine WBC (Auto) Urine Creatinine Urine Total Protein 06/11/17 06/11/17 06/12/17 11:53 18:31 04:24 WBC 17.4 H RBC 2.90 L Hgb 8.0 L Hct 23.0 L MCH MCHC 35 H RDW Plt Count 460 H Lymph % (Auto) [place] % (Auto) [place] # Seg Neutrophils % Seg Neuts % (Manual) Lymphocytes % (Manual) Basophils % (Manual) Seg Neutrophils # Seg Neutrophils # Man Lymphocytes # (Manual) Monocytes # (Manual) Basophils # (Manual) POC ABG pH ABG pH POC ABG pCO2 POC ABG pO2 ABG pO2 ABG Base Excess ABG Hemoglobin Oxyhemoglobin Sodium Potassium Chloride Carbon Dioxide BUN Creatinine Glucose POC Glucose 220 H 254 H Hemoglobin A1c Calcium Phosphorus Magnesium AST Alkaline Phosphatase Total Protein Albumin Urine WBC (Auto) Urine Creatinine Urine Total Protein 06/12/17 06/12/17 06/12/17 05:37 05:40 06:00 WBC RBC Hgb Hct MCH MCHC RDW Plt Count Lymph % (Auto) [place] % (Auto) [place] # Seg Neutrophils % Seg Neuts % (Manual) Lymphocytes % (Manual) Basophils % (Manual) Seg Neutrophils # Seg Neutrophils # Man Lymphocytes # (Manual) Monocytes # (Manual) Basophils # (Manual) POC ABG pH ABG pH POC ABG pCO2 POC ABG pO2 ABG pO2 ABG Base Excess ABG Hemoglobin Oxyhemoglobin Sodium Potassium Chloride Carbon Dioxide BUN Creatinine Glucose 41 L POC Glucose < 40 L < 40 L Hemoglobin A1c Calcium Phosphorus Magnesium AST Alkaline Phosphatase Total Protein Albumin Urine WBC (Auto) Urine Creatinine Urine Total Protein 06/12/17 06/12/17 06/12/17 07:09 07:51 10:06 WBC RBC Hgb Hct MCH MCHC RDW Plt Count Lymph % (Auto) [place] % (Auto) [place] # Seg Neutrophils % Seg Neuts % (Manual) Lymphocytes % (Manual) Basophils % (Manual) Seg Neutrophils # Seg Neutrophils # Man Lymphocytes # (Manual) Monocytes # (Manual) Basophils # (Manual) POC ABG pH ABG pH POC ABG pCO2 POC ABG pO2 ABG pO2 ABG Base Excess ABG Hemoglobin Oxyhemoglobin Sodium Potassium Chloride Carbon Dioxide BUN Creatinine Glucose POC Glucose 64 L 42 L 61 L Hemoglobin A1c Calcium Phosphorus Magnesium AST Alkaline Phosphatase Total Protein Albumin Urine WBC (Auto) Urine Creatinine Urine Total Protein 06/12/17 06/12/17 06/12/17 11:16 14:04 18:03 WBC RBC Hgb Hct MCH MCHC RDW Plt Count Lymph % (Auto) [place] % (Auto) [place] # Seg Neutrophils % Seg Neuts % (Manual) Lymphocytes % (Manual) Basophils % (Manual) Seg Neutrophils # Seg Neutrophils # Man Lymphocytes # (Manual) Monocytes # (Manual) Basophils # (Manual) POC ABG pH ABG pH POC ABG pCO2 POC ABG pO2 ABG pO2 ABG Base Excess ABG Hemoglobin Oxyhemoglobin Sodium Potassium Chloride Carbon Dioxide BUN Creatinine Glucose POC Glucose 67 L 112 H 116 H Hemoglobin A1c Calcium Phosphorus Magnesium AST Alkaline Phosphatase Total Protein Albumin Urine WBC (Auto) Urine Creatinine Urine Total Protein 06/12/17 06/12/17 06/12/17 19:30 20:34 21:01 WBC RBC Hgb Hct MCH MCHC RDW Plt Count Lymph % (Auto) [place] % (Auto) [place] # Seg Neutrophils % Seg Neuts % (Manual) Lymphocytes % (Manual) Basophils % (Manual) Seg Neutrophils # Seg Neutrophils # Man Lymphocytes # (Manual) Monocytes # (Manual) Basophils # (Manual) POC ABG pH ABG pH POC ABG pCO2 POC ABG pO2 ABG pO2 ABG Base Excess ABG Hemoglobin Oxyhemoglobin Sodium Potassium Chloride Carbon Dioxide BUN Creatinine Glucose POC Glucose 156 H 172 H 174 H Hemoglobin A1c Calcium Phosphorus Magnesium AST Alkaline Phosphatase Total Protein Albumin Urine WBC (Auto) Urine Creatinine Urine Total Protein 06/12/17 06/12/17 06/13/17 22:00 23:23 00:27 WBC RBC Hgb Hct MCH MCHC RDW Plt Count Lymph % (Auto) [place] % (Auto) [place] # Seg Neutrophils % Seg Neuts % (Manual) Lymphocytes % (Manual) Basophils % (Manual) Seg Neutrophils # Seg Neutrophils # Man Lymphocytes # (Manual) Monocytes # (Manual) Basophils # (Manual) POC ABG pH ABG pH POC ABG pCO2 POC ABG pO2 ABG pO2 ABG Base Excess ABG Hemoglobin Oxyhemoglobin Sodium Potassium Chloride Carbon Dioxide BUN Creatinine Glucose POC Glucose 240 H 286 H 182 H Hemoglobin A1c Calcium Phosphorus Magnesium AST Alkaline Phosphatase Total Protein Albumin Urine WBC (Auto) Urine Creatinine Urine Total Protein 06/13/17 06/13/17 06/13/17 01:28 02:10 03:15 WBC RBC Hgb Hct MCH MCHC RDW Plt Count Lymph % (Auto) [place] % (Auto) [place] # Seg Neutrophils % Seg Neuts % (Manual) Lymphocytes % (Manual) Basophils % (Manual) Seg Neutrophils # Seg Neutrophils # Man Lymphocytes # (Manual) Monocytes # (Manual) Basophils # (Manual) POC ABG pH ABG pH POC ABG pCO2 POC ABG pO2 ABG pO2 ABG Base Excess ABG Hemoglobin Oxyhemoglobin Sodium Potassium Chloride Carbon Dioxide BUN Creatinine Glucose POC Glucose 304 H 277 H 318 H Hemoglobin A1c Calcium Phosphorus Magnesium AST Alkaline Phosphatase Total Protein Albumin Urine WBC (Auto) Urine Creatinine Urine Total Protein 06/13/17 06/13/17 06/13/17 04:15 05:10 05:38 WBC RBC Hgb Hct MCH MCHC RDW Plt Count Lymph % (Auto) [place] % (Auto) [place] # Seg Neutrophils % Seg Neuts % (Manual) Lymphocytes % (Manual) Basophils % (Manual) Seg Neutrophils # Seg Neutrophils # Man Lymphocytes # (Manual) Monocytes # (Manual) Basophils # (Manual) POC ABG pH ABG pH POC ABG pCO2 POC ABG pO2 ABG pO2 ABG Base Excess ABG Hemoglobin Oxyhemoglobin Sodium Potassium Chloride Carbon Dioxide BUN Creatinine Glucose POC Glucose 294 H 275 H 315 H Hemoglobin A1c Calcium Phosphorus Magnesium AST Alkaline Phosphatase Total Protein Albumin Urine WBC (Auto) Urine Creatinine Urine Total Protein 06/13/17 06/13/17 06/13/17 06:21 12:02 16:52 WBC RBC Hgb Hct MCH MCHC RDW Plt Count Lymph % (Auto) [place] % (Auto) [place] # Seg Neutrophils % Seg Neuts % (Manual) Lymphocytes % (Manual) Basophils % (Manual) Seg Neutrophils # Seg Neutrophils # Man Lymphocytes # (Manual) Monocytes # (Manual) Basophils # (Manual) POC ABG pH ABG pH POC ABG pCO2 POC ABG pO2 ABG pO2 ABG Base Excess ABG Hemoglobin Oxyhemoglobin Sodium Potassium Chloride Carbon Dioxide BUN Creatinine Glucose POC Glucose 350 H 333 H 343 H Hemoglobin A1c Calcium Phosphorus Magnesium AST Alkaline Phosphatase Total Protein Albumin Urine WBC (Auto) Urine Creatinine Urine Total Protein 06/14/17 06/14/17 06/14/17 00:01 04:18 04:18 WBC 29.6 H RBC 2.81 L Hgb 7.8 L Hct 23.2 L MCH MCHC RDW 15.3 H Plt Count Lymph % (Auto) [place] % (Auto) [place] # Seg Neutrophils % Seg Neuts % (Manual) Lymphocytes % (Manual) Basophils % (Manual) Seg Neutrophils # Seg Neutrophils # Man Lymphocytes # (Manual) Monocytes # (Manual) Basophils # (Manual) POC ABG pH ABG pH POC ABG pCO2 POC ABG pO2 ABG pO2 ABG Base Excess ABG Hemoglobin Oxyhemoglobin Sodium Potassium Chloride Carbon Dioxide 20 L BUN 75 H Creatinine 2.2 H Glucose 364 H POC Glucose 297 H Hemoglobin A1c Calcium Phosphorus Magnesium AST Alkaline Phosphatase Total Protein Albumin Urine WBC (Auto) Urine Creatinine Urine Total Protein 06/14/17 06/14/17 06/14/17 05:10 08:25 11:46 WBC RBC Hgb Hct MCH MCHC RDW Plt Count Lymph % (Auto) [place] % (Auto) [place] # Seg Neutrophils % Seg Neuts % (Manual) Lymphocytes % (Manual) Basophils % (Manual) Seg Neutrophils # Seg Neutrophils # Man Lymphocytes # (Manual) Monocytes # (Manual) Basophils # (Manual) POC ABG pH ABG pH POC ABG pCO2 POC ABG pO2 ABG pO2 ABG Base Excess ABG Hemoglobin Oxyhemoglobin Sodium Potassium Chloride Carbon Dioxide BUN Creatinine Glucose POC Glucose 350 H 322 H 391 H Hemoglobin A1c Calcium Phosphorus Magnesium AST Alkaline Phosphatase Total Protein Albumin Urine WBC (Auto) Urine Creatinine Urine Total Protein 06/14/17 06/15/17 06/15/17 18:04 00:16 11:20 WBC RBC Hgb Hct MCH MCHC RDW Plt Count Lymph % (Auto) [place] % (Auto) [place] # Seg Neutrophils % Seg Neuts % (Manual) Lymphocytes % (Manual) Basophils % (Manual) Seg Neutrophils # Seg Neutrophils # Man Lymphocytes # (Manual) Monocytes # (Manual) Basophils # (Manual) POC ABG pH ABG pH POC ABG pCO2 POC ABG pO2 ABG pO2 ABG Base Excess ABG Hemoglobin Oxyhemoglobin Sodium Potassium Chloride Carbon Dioxide 21 L BUN 88 H Creatinine 2.7 H Glucose 302 H POC Glucose 384 H 435 H Hemoglobin A1c Calcium Phosphorus Magnesium AST Alkaline Phosphatase Total Protein Albumin Urine WBC (Auto) Urine Creatinine Urine Total Protein 06/15/17 06/15/17 06/15/17 11:47 17:35 21:33 WBC RBC Hgb Hct MCH MCHC RDW Plt Count Lymph % (Auto) [place] % (Auto) [place] # Seg Neutrophils % Seg Neuts % (Manual) Lymphocytes % (Manual) Basophils % (Manual) Seg Neutrophils # Seg Neutrophils # Man Lymphocytes # (Manual) Monocytes # (Manual) Basophils # (Manual) POC ABG pH ABG pH POC ABG pCO2 POC ABG pO2 ABG pO2 ABG Base Excess ABG Hemoglobin Oxyhemoglobin Sodium Potassium Chloride Carbon Dioxide BUN Creatinine Glucose POC Glucose 311 H 428 H 346 H Hemoglobin A1c Calcium Phosphorus Magnesium AST Alkaline Phosphatase Total Protein Albumin Urine WBC (Auto) Urine Creatinine Urine Total Protein 06/15/17 06/15/17 06/16/17 23:23 Unknown 05:36 WBC RBC Hgb Hct MCH MCHC RDW Plt Count Lymph % (Auto) [place] % (Auto) [place] # Seg Neutrophils % Seg Neuts % (Manual) Lymphocytes % (Manual) Basophils % (Manual) Seg Neutrophils # Seg Neutrophils # Man Lymphocytes # (Manual) Monocytes # (Manual) Basophils # (Manual) POC ABG pH ABG pH POC ABG pCO2 POC ABG pO2 ABG pO2 ABG Base Excess ABG Hemoglobin 10.1 L Oxyhemoglobin 94.9 L Sodium Potassium Chloride Carbon Dioxide BUN Creatinine Glucose POC Glucose 351 H 303 H Hemoglobin A1c Calcium Phosphorus Magnesium AST Alkaline Phosphatase Total Protein Albumin Urine WBC (Auto) Urine Creatinine Urine Total Protein 06/16/17 06/16/17 06/16/17 06:33 06:33 08:26 WBC 25.8 H RBC 2.68 L Hgb 7.2 L Hct 21.6 L MCH 27 L MCHC RDW 15.9 H Plt Count Lymph % (Auto) [place] % (Auto) [place] # Seg Neutrophils % Seg Neuts % (Manual) Lymphocytes % (Manual) Basophils % (Manual) Seg Neutrophils # Seg Neutrophils # Man Lymphocytes # (Manual) Monocytes # (Manual) Basophils # (Manual) POC ABG pH ABG pH POC ABG pCO2 POC ABG pO2 ABG pO2 ABG Base Excess ABG Hemoglobin Oxyhemoglobin Sodium Potassium Chloride Carbon Dioxide 21 L BUN 94 H Creatinine 2.7 H Glucose 280 H POC Glucose Hemoglobin A1c Calcium Phosphorus Magnesium AST Alkaline Phosphatase Total Protein Albumin Urine WBC (Auto) > 182.0 H Urine Creatinine Urine Total Protein 06/16/17 06/16/17 06/16/17 08:26 11:45 18:28 WBC RBC Hgb Hct MCH MCHC RDW Plt Count Lymph % (Auto) [place] % (Auto) [place] # Seg Neutrophils % Seg Neuts % (Manual) Lymphocytes % (Manual) Basophils % (Manual) Seg Neutrophils # Seg Neutrophils # Man Lymphocytes # (Manual) Monocytes # (Manual) Basophils # (Manual) POC ABG pH ABG pH POC ABG pCO2 POC ABG pO2 ABG pO2 ABG Base Excess ABG Hemoglobin Oxyhemoglobin Sodium Potassium Chloride Carbon Dioxide BUN Creatinine Glucose POC Glucose 263 H 175 H Hemoglobin A1c Calcium Phosphorus Magnesium AST Alkaline Phosphatase Total Protein Albumin Urine WBC (Auto) Urine Creatinine 119.9 H Urine Total Protein 295 H 06/16/17 06/17/17 06/17/17 23:36 03:51 04:04 WBC 28.1 H RBC 2.61 L Hgb 7.1 L Hct 21.5 L MCH 27 L MCHC RDW 15.8 H Plt Count Lymph % (Auto) [place] % (Auto) [place] # Seg Neutrophils % Seg Neuts % (Manual) 90.5 H Lymphocytes % (Manual) 2.0 L Basophils % (Manual) Seg Neutrophils # Seg Neutrophils # Man 25.4 H Lymphocytes # (Manual) 0.6 L Monocytes # (Manual) 1.5 H Basophils # (Manual) POC ABG pH ABG pH 7.483 H POC ABG pCO2 POC ABG pO2 ABG pO2 144.0 H ABG Base Excess -2.1 L ABG Hemoglobin 6.5 L Oxyhemoglobin Sodium Potassium Chloride Carbon Dioxide BUN Creatinine Glucose POC Glucose 152 H Hemoglobin A1c Calcium Phosphorus Magnesium AST Alkaline Phosphatase Total Protein Albumin Urine WBC (Auto) Urine Creatinine Urine Total Protein 06/17/17 06/17/17 04:04 05:34 WBC RBC Hgb Hct MCH MCHC RDW Plt Count Lymph % (Auto) [place] % (Auto) [place] # Seg Neutrophils % Seg Neuts % (Manual) Lymphocytes % (Manual) Basophils % (Manual) Seg Neutrophils # Seg Neutrophils # Man Lymphocytes # (Manual) Monocytes # (Manual) Basophils # (Manual) POC ABG pH ABG pH POC ABG pCO2 POC ABG pO2 ABG pO2 ABG Base Excess ABG Hemoglobin Oxyhemoglobin Sodium 136 L Potassium Chloride Carbon Dioxide 20 L BUN 97 H Creatinine 2.7 H Glucose 151 H POC Glucose 203 H Hemoglobin A1c Calcium Phosphorus Magnesium AST Alkaline Phosphatase Total Protein Albumin Urine WBC (Auto) Urine Creatinine Urine Total Protein
[2017-06-17] MEDS: AMBIEN FEEDTUBE SCH (09:30)
--- NOTE | 2017-06-17 09:39 | Progress Note ---
Assessment and Plan - Patient Problems (1) Acute renal failure with tubular necrosis Current Visit: Yes Status: Acute Plan to address problem: Non-Oliguric Acute renal failure/acute tubular necrosis. BUN rising out of proportion to Cr, despite holding lasix. with down trending Hb , to rule out GI bleed, check stool guaiac. transfuse for Hb < 7 worsening fluid overload, will resume lasix 40mg po qd with albumin support. Supportive care for JERRI avoid nephrotoxins, NSAIDs, IV contrast. D/w family at bedside and RN (2) Acute respiratory failure Current Visit: Yes Status: Acute Qualifiers: Respiratory failure complication: hypoxia Qualified Code(s): J96.01 - Acute respiratory failure with hypoxia Plan to address problem: Ventilator management by pulmonary/CCM. possible bronchoscopy today (3) Hyperosmolar non-ketotic state in patient with type 2 diabetes mellitus Current Visit: Yes Status: Acute Plan to address problem: Blood sugar management by primary attending (4) Proteinuria Current Visit: Yes Status: Chronic Plan to address problem: likely due to underlying diabetic nephropathy. ARAM-I contraindicated due to h/o allergy (5) Hypertension Current Visit: Yes Status: Acute Qualifiers: Hypertension type: essential hypertension Qualified Code(s): I10 - Essential (primary) hypertension Plan to address problem: Blood pressure has improved. Follow blood pressure on current medications (6) Acute systolic heart failure Current Visit: Yes Status: Acute Plan to address problem: Continue beta jas. Continue spironolactone and monitor fluid balance. ARAM inhibitor/angiotensin receptor jas contraindicated due to her history of allergy. resume lasix 40mg po qd (7) Anemia in chronic illness Current Visit: Yes Status: Acute Plan to address problem: monitor Hb, transfuse with 1PRBC for Hb < 7, check stool guaiac Subjective Date of service: 06/17/17 Principal diagnosis: coma Interval history: pt s/p trach/peg, on vent, remains unresponsive Objective - Vital Signs Vital signs: Vital Signs - 12hr 06/16/17 06/16/17 06/16/17 22:00 22:30 23:00 Temperature Pulse Rate 89 85 85 Respiratory 14 21 18 Rate Blood Pressure 119/71 119/71 115/68 O2 Sat by Pulse 99 99 99 Oximetry O2 Sat by Pulse Oximetry [ Assessment] 06/16/17 06/16/17 06/16/17 23:29 23:30 23:32 Temperature Pulse Rate 86 85 86 Respiratory 19 18 Rate Blood Pressure 115/68 115/68 115/68 O2 Sat by Pulse 100 100 100 Oximetry O2 Sat by Pulse 100 Oximetry [ Assessment] 06/17/17 06/17/17 06/17/17 00:00 00:30 01:00 Temperature 98.1 F Pulse Rate 85 84 85 Respiratory 20 20 17 Rate Blood Pressure 117/71 115/68 117/72 O2 Sat by Pulse 100 100 100 Oximetry O2 Sat by Pulse Oximetry [ Assessment] 06/17/17 06/17/17 06/17/17 01:30 02:00 02:30 Temperature Pulse Rate 86 85 85 Respiratory 19 18 19 Rate Blood Pressure 117/72 117/72 122/75 O2 Sat by Pulse 100 100 100 Oximetry O2 Sat by Pulse Oximetry [ Assessment] 06/17/17 06/17/17 06/17/17 03:00 03:18 03:30 Temperature Pulse Rate 88 88 88 Respiratory 18 19 Rate Blood Pressure 127/79 127/79 127/79 O2 Sat by Pulse 100 100 100 Oximetry O2 Sat by Pulse Oximetry [ Assessment] 06/17/17 06/17/17 06/17/17 04:00 04:30 05:00 Temperature 98.3 F Pulse Rate 87 86 84 Respiratory 17 15 17 Rate Blood Pressure 130/82 130/82 127/77 O2 Sat by Pulse 100 100 100 Oximetry O2 Sat by Pulse Oximetry [ Assessment] 06/17/17 06/17/17 06/17/17 05:30 06:00 06:30 Temperature Pulse Rate 84 83 84 Respiratory 15 15 16 Rate Blood Pressure 127/77 134/80 134/80 O2 Sat by Pulse 100 100 100 Oximetry O2 Sat by Pulse Oximetry [ Assessment] 06/17/17 06/17/17 06/17/17 07:00 07:30 08:00 Temperature Pulse Rate 83 82 84 Respiratory 17 15 15 Rate Blood Pressure 130/77 130/77 138/84 O2 Sat by Pulse 100 99 100 Oximetry O2 Sat by Pulse Oximetry [ Assessment] 06/17/17 08:30 Temperature Pulse Rate 83 Respiratory 17 Rate Blood Pressure 138/84 O2 Sat by Pulse 100 Oximetry O2 Sat by Pulse Oximetry [ Assessment] - General Appearance General appearance: well-developed, intubated, comatose EENT: ATNC, PERRL, mucous membranes moist Neck: no JVD Respiratory: Present: Decreased Breath Sounds Cardiology: regular, S1S2 Gastrointestinal: normoactive bowel sounds Integumentary: no rash, other (+ 2 b/l UE edema, + edema b/l LE ) Neurologic: other (intubated, unresponsive ) - Lab 06/17/17 04:04 06/17/17 04:04 Most recent lab results ABG pH 7.483 pH Units (7.350-7.450) H 06/17/17 03:51 ABG pCO2 28.7 mm Hg 06/17/17 03:51 ABG pO2 144.0 mm Hg (80.0-90.0) H 06/17/17 03:51 ABG HCO3 21.1 mmol/L (20.0-26.0) 06/17/17 03:51 ABG O2 Saturation 98.9 % (95.0-99.0) 06/17/17 03:51 Calcium 8.6 mg/dL (8.4-10.2) 06/17/17 04:04 Phosphorus 4.40 mg/dL (2.5-4.5) 06/07/17 07:51 Magnesium 1.70 mg/dL (1.7-2.3) 06/07/17 07:51 Urine Creatinine 119.9 mg/dL (0.1-20.0) H 06/16/17 08:26 Urine Sodium 39 mmol/L 06/16/17 08:26 Urine Total Protein 295 mg/dL (5-11.8) H 06/16/17 08:26
[2017-06-17] MEDS: COREG PO SCH ×2 (09:43→21:35)
[2017-06-17] MEDS: ROBINUL FEEDTUBE SCH ×3 (09:44→21:34)
[2017-06-17] MEDS: PEPCID PO SCH (09:44)
[2017-06-17] MEDS: ALDACTONE PO SCH (09:45)
[2017-06-17] MEDS: KEPPRA PO SCH ×2 (09:45→21:35)
[2017-06-17] MEDS: LOVENOX SUB-Q SCH (09:46)
[2017-06-17] MEDS: MAXIPIME 2 GM in NACL 0.9% 20 ML IV SCH (09:48)
[2017-06-17] MEDS: ALBURX 25% (ALBUMIN) IV SCH ×3 (11:00→21:36)
[2017-06-17] MEDS ORDERED: NACL 0.9% 1,000 ML IR ONE (11:14)
[2017-06-17] MEDS ORDERED: VERSED ONE (11:16)
[2017-06-17] MEDS: LASIX PO SCH (12:00)
--- NOTE | 2017-06-17 12:05 | Procedure Note ---
Date of procedure: 06/17/17 Pre-op diagnosis: right upper lobe atelectasis, respiratory failure Post-op diagnosis: other (partial mucous plugging right upper lobe) Procedure: BRONCHOSCOPY REPORT Preoperative diagnosis: Right upper lobe atelectasis, respiratory failure Postoperative diagnosis: Right upper lobe atelectasis, respiratory failure partial mucous plugging right upper lobe Procedure: Fiberoptic bronchoscopy with mucous plug removal, BAL for culture Patient Mrs. Hall underwent bronchoscopy today after informed consent was obtained and discussed in detail with the patient family .This was signed and placed on the patient chart. Procedure was performed in the ICU under mechanical ventilator support. Prior to initiation, FiO2 was increased 100% for 50 minutes on vital sign check. Standard timeout review was done, with comfirmation of patient name, site,procedure and consent. Patient had 2 mg IV Versed Once sedated the scope was gently introduced through the tracheotomy connector and tracheostomy area and mid lower trachea and main natalie were inspected. There were purulent secretions slightly above the main natalie The trachea was normal with no lesions seen. Main natalie was sharp and midline. We then inspected the right main, right upper lobe, bronchus intermedius, right middle lobe and right lower lobe segmental and subsegmental airways was done. Findings: Partial plugging with clear purulent secretions in the open her right upper lobe and right upper lobe superior segment We then inspected the left main and left upper lobe lingular and left lower lobe segmental and subsegmental airways. Findings-minimal secretions all segments open At this point we performed bronchial alveolar lavage with mucous removal of the right upper lobe. Sample secured for BAL culture evaluation at the lab Complications: none. Samples: BAL for culture, right upper lobe Post procedure recommendations/orders: Continue ventilator support support on FiO2 100 for 50 minutes then back to prior settings Suction secretions as needed Follow-up cultures and adjust antibiotics accordingly Monitor fever and WBC SBT later on or in the morning Will discuss later with patient and family on recovery or the floor Anesthesia: other (IV sedation) Surgeon: QUINN TORRES Estimated blood loss: none Pathology: none Specimen disposition: to lab Condition: stable Disposition: ICU
[2017-06-17] MEDS ORDERED: VERSED IV ONE (14:00)
--- NOTE | 2017-06-17 18:09 | Progress Note ---
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 This had resolved - She was on Insulin drip, now on subcut Insulin - Insulin dose increased to 25 Units bid because of hyperglycemia /Hypoglycemia.episodes, Now resolved /Acute kidney injury. -Creatinine worsening :2.7 today - Nephrology following /Hypertension. BP stable with beta jas, hydralazine, Imdur, Lasix and spironolactone /Sepsis, with leukocytosis, tachycardia tachypnea - Aspiration pneumonia versus UTI versus atelectasis - Continue antibiotics for now, will follow bronchoscopy report and BAL culture /DVT prophylaxis with Lovenox /Disposition - Continue ICU care. poor prognosis -will need LTAC placement POOR PROGNOSIS Brief history: Patient had 36-year-old -[place] female was admitted to the floor for seizure episode, altered mental status, acute hypoxic respiratory failure, patient was intubated in the emergency department patient had PEA and resuscitated successfully. She was placed on trach and PEG tube on 06/11/17. Hospitalist Physical Gen appearance:Not in acute distress, lying in bed, obese HEENT: facial edema, Neck:supple, no JVD, Tracheostomy Lungs: Coarse breath sounds bilaterally, no wheeze Heart: S1 and S2 regular, no murmurs, rubs or gallop Abdomen: soft, non tender, non distended, normal bowel sounds, PEG tube present Ext: Edema both upper and lower extremities, no cyanosis,anasarca Neuro: Unresponsive Subjective Date of service: 06/17/17 Principal diagnosis: coma Interval history: Still intubated, Unresponsive, No fever PEG and Trach done 06/11 s/p bronch today Objective - Constitutional Vitals: Vital Signs - 12hr 06/17/17 06/17/17 06/17/17 06:30 07:00 07:30 Temperature Pulse Rate 84 83 82 Respiratory 16 17 15 Rate Blood Pressure 134/80 130/77 130/77 O2 Sat by Pulse 100 100 99 Oximetry 06/17/17 06/17/17 06/17/17 08:00 08:30 09:00 Temperature 98 F Pulse Rate 84 83 83 Respiratory 15 17 15 Rate Blood Pressure 138/84 138/84 141/84 O2 Sat by Pulse 100 100 100 Oximetry 06/17/17 06/17/17 06/17/17 09:30 09:43 09:45 Temperature Pulse Rate 83 83 Respiratory 17 Rate Blood Pressure 141/84 141/84 141/84 O2 Sat by Pulse 100 Oximetry 06/17/17 06/17/17 06/17/17 10:00 10:30 11:00 Temperature Pulse Rate 82 84 84 Respiratory 16 19 20 Rate Blood Pressure 139/82 139/82 130/73 O2 Sat by Pulse 100 100 100 Oximetry 06/17/17 06/17/17 06/17/17 11:30 12:00 12:30 Temperature 98.5 F Pulse Rate 86 89 89 Respiratory 20 24 22 Rate Blood Pressure 147/89 136/82 148/89 O2 Sat by Pulse 100 100 100 Oximetry 06/17/17 06/17/17 06/17/17 13:00 13:30 14:00 Temperature Pulse Rate 90 92 H 92 H Respiratory 20 26 H 23 Rate Blood Pressure 150/91 149/89 150/90 O2 Sat by Pulse 100 100 100 Oximetry 06/17/17 06/17/17 06/17/17 14:30 15:00 15:30 Temperature Pulse Rate 90 89 87 Respiratory 17 20 22 Rate Blood Pressure 150/90 132/76 132/76 O2 Sat by Pulse 100 100 100 Oximetry 06/17/17 06/17/17 06/17/17 15:39 16:00 16:30 Temperature 98.4 F Pulse Rate 90 90 89 Respiratory 21 21 Rate Blood Pressure 132/76 130/75 O2 Sat by Pulse 100 100 100 Oximetry 06/17/17 06/17/17 17:00 17:30 Temperature Pulse Rate 91 H 91 H Respiratory 23 21 Rate Blood Pressure 133/73 133/73 O2 Sat by Pulse 100 100 Oximetry - Labs CBC & Chem 7: 06/17/17 04:04 06/17/17 04:04 Labs: Abnormal lab results 06/16/17 06/16/17 06/17/17 Range/Units 18:28 23:36 03:51 WBC (4.5-11.0) K/mm3 RBC (3.65-5.03) M/mm3 Hgb (10.1-14.3) gm/dl Hct (30.3-42.9) % MCH (28-32) pg RDW (13.2-15.2) % Seg Neuts % (Manual) (40.0-70.0) % Lymphocytes % (Manual) (13.4-35.0) % Seg Neutrophils # Man (1.8-7.7) K/mm3 Lymphocytes # (Manual) (1.2-5.4) K/mm3 Monocytes # (Manual) (0.0-0.8) K/mm3 ABG pH 7.483 H (7.350-7.450) pH Units ABG pO2 144.0 H (80.0-90.0) mm Hg ABG Base Excess -2.1 L (-2.0-3.0) mmol/L ABG Hemoglobin 6.5 L (12.0-16.0) gm/dl Sodium (137-145) mmol/L Carbon Dioxide (22-30) mmol/L BUN (7-17) mg/dL Creatinine (0.7-1.2) mg/dL Glucose (65-100) mg/dL POC Glucose 175 H 152 H (70-105) 06/17/17 06/17/17 06/17/17 Range/Units 04:04 04:04 05:34 WBC 28.1 H (4.5-11.0) K/mm3 RBC 2.61 L (3.65-5.03) M/mm3 Hgb 7.1 L (10.1-14.3) gm/dl Hct 21.5 L (30.3-42.9) % MCH 27 L (28-32) pg RDW 15.8 H (13.2-15.2) % Seg Neuts % (Manual) 90.5 H (40.0-70.0) % Lymphocytes % (Manual) 2.0 L (13.4-35.0) % Seg Neutrophils # Man 25.4 H (1.8-7.7) K/mm3 Lymphocytes # (Manual) 0.6 L (1.2-5.4) K/mm3 Monocytes # (Manual) 1.5 H (0.0-0.8) K/mm3 ABG pH (7.350-7.450) pH Units ABG pO2 (80.0-90.0) mm Hg ABG Base Excess (-2.0-3.0) mmol/L ABG Hemoglobin (12.0-16.0) gm/dl Sodium 136 L (137-145) mmol/L Carbon Dioxide 20 L (22-30) mmol/L BUN 97 H (7-17) mg/dL Creatinine 2.7 H (0.7-1.2) mg/dL Glucose 151 H (65-100) mg/dL POC Glucose 203 H (70-105) 06/17/17 06/17/17 06/17/17 Range/Units 09:34 12:36 17:24 WBC (4.5-11.0) K/mm3 RBC (3.65-5.03) M/mm3 Hgb (10.1-14.3) gm/dl Hct (30.3-42.9) % MCH (28-32) pg RDW (13.2-15.2) % Seg Neuts % (Manual) (40.0-70.0) % Lymphocytes % (Manual) (13.4-35.0) % Seg Neutrophils # Man (1.8-7.7) K/mm3 Lymphocytes # (Manual) (1.2-5.4) K/mm3 Monocytes # (Manual) (0.0-0.8) K/mm3 ABG pH (7.350-7.450) pH Units ABG pO2 (80.0-90.0) mm Hg ABG Base Excess (-2.0-3.0) mmol/L ABG Hemoglobin (12.0-16.0) gm/dl Sodium (137-145) mmol/L Carbon Dioxide (22-30) mmol/L BUN (7-17) mg/dL Creatinine (0.7-1.2) mg/dL Glucose (65-100) mg/dL POC Glucose 243 H 214 H 131 H (70-105)
[2017-06-18] MEDS: HumaLOG SUB-Q SCH ×5 (00:42→23:30)
[2017-06-18] MEDS: APRESOLINE PO SCH ×2 (06:01→15:30)
[2017-06-18] MEDS: ISORDIL TITRADOSE PO SCH ×2 (06:02→15:29)
--- NOTE | 2017-06-18 08:44 | Progress Note ---
Assessment and Plan Fever. RUL atelectasis right lung. Low grade, noted x 1 s/p bronc. Few PMN's on BAL. WBC still high Status post cardiac arrest Acute respiratory failure. Metabolic encephalopathy. No major changes today. DKA Seizures clinically, she appears to be controlled Recommendations Restart SBT and monitor tolerance. I had long discussion with the patient parent today regarding her prognosis and neurological status. The patient father stated that, in view of her lack of neurological improving/in full recovery at this point, the pelvis considering termination of care and discontinue mechanical ventilation support. He asked me how her breathing will respond and at this point I let him know that, there is a possibility that she might hypoventilate and became apneic. He is aware of this and states that if she has no further improvement, the family will accept this as a final outcome. I recommended that they talk to neurology so that the family can get an update on her neurological status and overall neurologic prognosis Critical care time was 31 minutes of [id number] evaluation and coordination of care Subjective Date of service: 06/18/17 Principal diagnosis: coma Interval history: Trach, nonresponsive on ventilators support. Objective Vital Signs - 12hr 06/17/17 06/17/17 06/17/17 21:00 21:35 22:00 Temperature Pulse Rate 95 H 97 H 98 H Respiratory 20 22 Rate Blood Pressure 127/67 127/67 133/69 O2 Sat by Pulse 100 100 Oximetry O2 Sat by Pulse Oximetry [ Assessment] 06/17/17 06/17/17 06/17/17 23:00 23:02 23:40 Temperature Pulse Rate 102 H 101 H 92 H Respiratory 26 H 19 Rate Blood Pressure 128/66 133/69 O2 Sat by Pulse 100 100 Oximetry O2 Sat by Pulse Oximetry [ Assessment] 06/17/17 06/18/17 06/18/17 23:41 00:00 00:40 Temperature 97.8 F Pulse Rate 92 H Respiratory 24 Rate Blood Pressure 117/55 O2 Sat by Pulse 100 Oximetry O2 Sat by Pulse 100 Oximetry [ Assessment] 06/18/17 06/18/17 06/18/17 00:46 01:00 02:00 Temperature Pulse Rate 100 H 102 H 99 H Respiratory 19 20 Rate Blood Pressure 117/55 117/57 119/62 O2 Sat by Pulse 100 100 100 Oximetry O2 Sat by Pulse Oximetry [ Assessment] 06/18/17 06/18/17 06/18/17 03:00 03:58 04:00 Temperature 100.2 F H Pulse Rate 100 H 97 H Respiratory 23 23 Rate Blood Pressure 119/60 115/58 O2 Sat by Pulse 100 100 Oximetry O2 Sat by Pulse Oximetry [ Assessment] 06/18/17 06/18/17 06/18/17 04:42 05:00 06:00 Temperature Pulse Rate 100 H 98 H 94 H Respiratory 24 22 Rate Blood Pressure 115/58 135/72 126/76 O2 Sat by Pulse 100 100 100 Oximetry O2 Sat by Pulse Oximetry [ Assessment] 06/18/17 06/18/17 06/18/17 06:01 06:02 07:00 Temperature Pulse Rate 94 H 94 H 97 H Respiratory 22 Rate Blood Pressure 127/76 127/76 131/76 O2 Sat by Pulse 100 Oximetry O2 Sat by Pulse Oximetry [ Assessment] 06/18/17 06/18/17 06/18/17 07:36 07:40 07:46 Temperature Pulse Rate 96 H 96 H 89 Respiratory 21 Rate Blood Pressure 131/76 131/76 131/76 O2 Sat by Pulse 100 99 96 Oximetry O2 Sat by Pulse Oximetry [ Assessment] 06/18/17 08:00 Temperature 98.5 F Pulse Rate Respiratory Rate Blood Pressure O2 Sat by Pulse Oximetry O2 Sat by Pulse Oximetry [ Assessment] Constitutional: no acute distress, other Eyes: non-icteric ENT: oropharynx moist, other (trach in position) Neck: supple, no JVD Effort: normal Ascultation: Bilateral: clear Percussion: Bilateral: not dull Cardiovascular: regular rate and rhythm Gastrointestinal: normoactive bowel sounds, soft, non-tender Integumentary: normal Extremities: no cyanosis, no edema, pink and warm Neurologic: other (unresponsive, rolls her eyes sporadically no posturing. GCS 4) Psychiatric: other CBC and BMP: 06/17/17 04:04 06/17/17 04:04 ABG, PT/INR, D-dimer: ABG POC ABG pH 7.461 (7.35-7.45) H 06/10/17 03:24 ABG pH 7.483 pH Units (7.350-7.450) H 06/17/17 03:51 POC ABG pCO2 36.6 (35-45) 06/10/17 03:24 ABG pCO2 28.7 mm Hg 06/17/17 03:51 POC ABG pO2 131 (80-105) H 06/10/17 03:24 ABG pO2 144.0 mm Hg (80.0-90.0) H 06/17/17 03:51 POC ABG HCO3 26.1 06/10/17 03:24 POC ABG Total CO2 27 06/10/17 03:24 POC ABG O2 Sat 99 06/10/17 03:24 ABG O2 Saturation 98.9 % (95.0-99.0) 06/17/17 03:51 PT/INR, D-dimer PT 12.4 Sec. (12.2-14.9) 06/09/17 04:18 INR 0.88 (0.87-1.13) 06/09/17 04:18 Abnormal lab findings: Abnormal Labs 05/30/17 05/30/17 05/30/17 07:48 07:48 08:32 WBC 11.5 H RBC Hgb Hct MCH 27 L MCHC RDW 16.3 H Plt Count Lymph % (Auto) Barren % (Auto) Barren # Seg Neutrophils % Seg Neuts % (Manual) Lymphocytes % (Manual) Basophils % (Manual) Seg Neutrophils # Seg Neutrophils # Man Lymphocytes # (Manual) Monocytes # (Manual) Basophils # (Manual) POC ABG pH ABG pH POC ABG pCO2 POC ABG pO2 ABG pO2 ABG Base Excess ABG Hemoglobin Oxyhemoglobin Sodium 133 L Potassium Chloride 89.9 L Carbon Dioxide BUN 27 H Creatinine 2.0 H Glucose 741 H* POC Glucose > 500 H Hemoglobin A1c Calcium Phosphorus Magnesium AST Alkaline Phosphatase Total Protein Albumin Urine WBC (Auto) Urine Creatinine Urine Total Protein 05/30/17 05/30/17 05/30/17 08:59 08:59 16:08 WBC 14.5 H RBC Hgb Hct MCH MCHC RDW 16.0 H Plt Count Lymph % (Auto) Barren % (Auto) Barren # Seg Neutrophils % Seg Neuts % (Manual) 95.0 H Lymphocytes % (Manual) 2.0 L Basophils % (Manual) 2.0 H Seg Neutrophils # Seg Neutrophils # Man 13.8 H Lymphocytes # (Manual) 0.3 L Monocytes # (Manual) Basophils # (Manual) 0.3 H POC ABG pH ABG pH POC ABG pCO2 POC ABG pO2 ABG pO2 ABG Base Excess ABG Hemoglobin Oxyhemoglobin Sodium 134 L 135 L Potassium 3.2 L Chloride 90.8 L 93.6 L Carbon Dioxide BUN 28 H 30 H Creatinine 2.0 H 2.1 H Glucose 742 H* 567 H* POC Glucose Hemoglobin A1c Calcium Phosphorus Magnesium AST Alkaline Phosphatase 246 H Total Protein 5.6 L Albumin 2.9 L Urine WBC (Auto) Urine Creatinine Urine Total Protein 05/30/17 05/30/17 05/30/17 16:35 17:55 18:59 WBC RBC Hgb Hct MCH MCHC RDW Plt Count Lymph % (Auto) Barren % (Auto) Barren # Seg Neutrophils % Seg Neuts % (Manual) Lymphocytes % (Manual) Basophils % (Manual) Seg Neutrophils # Seg Neutrophils # Man Lymphocytes # (Manual) Monocytes # (Manual) Basophils # (Manual) POC ABG pH 7.544 H ABG pH POC ABG pCO2 32.0 L POC ABG pO2 155 H ABG pO2 ABG Base Excess ABG Hemoglobin Oxyhemoglobin Sodium Potassium 3.1 L Chloride 93.9 L Carbon Dioxide BUN 30 H Creatinine 2.0 H Glucose 561 H* POC Glucose 497 H Hemoglobin A1c Calcium Phosphorus Magnesium AST Alkaline Phosphatase Total Protein Albumin Urine WBC (Auto) Urine Creatinine Urine Total Protein 05/30/17 05/30/17 05/30/17 19:31 19:31 21:38 WBC RBC Hgb Hct MCH MCHC RDW Plt Count Lymph % (Auto) Barren % (Auto) Barren # Seg Neutrophils % Seg Neuts % (Manual) Lymphocytes % (Manual) Basophils % (Manual) Seg Neutrophils # Seg Neutrophils # Man Lymphocytes # (Manual) Monocytes # (Manual) Basophils # (Manual) POC ABG pH ABG pH POC ABG pCO2 POC ABG pO2 ABG pO2 ABG Base Excess ABG Hemoglobin Oxyhemoglobin Sodium 135 L Potassium 2.9 L* Chloride 93.8 L 95.4 L Carbon Dioxide 20 L BUN 29 H 30 H Creatinine 2.2 H 2.3 H Glucose 478 H 364 H POC Glucose Hemoglobin A1c Calcium Phosphorus 2.20 L D Magnesium 1.40 L AST 42 H Alkaline Phosphatase 177 H Total Protein 5.4 L Albumin 2.4 L Urine WBC (Auto) Urine Creatinine Urine Total Protein 05/30/17 05/31/17 05/31/17 23:06 02:17 05:27 WBC RBC Hgb Hct MCH MCHC RDW Plt Count Lymph % (Auto) Barren % (Auto) Barren # Seg Neutrophils % Seg Neuts % (Manual) Lymphocytes % (Manual) Basophils % (Manual) Seg Neutrophils # Seg Neutrophils # Man Lymphocytes # (Manual) Monocytes # (Manual) Basophils # (Manual) POC ABG pH 7.489 H ABG pH POC ABG pCO2 POC ABG pO2 ABG pO2 ABG Base Excess ABG Hemoglobin Oxyhemoglobin Sodium Potassium 3.2 L 3.5 L Chloride Carbon Dioxide BUN 30 H 31 H Creatinine 2.5 H 2.4 H Glucose 288 H 246 H POC Glucose Hemoglobin A1c Calcium 8.3 L Phosphorus Magnesium AST Alkaline Phosphatase Total Protein Albumin Urine WBC (Auto) Urine Creatinine Urine Total Protein 05/31/17 05/31/17 05/31/17 05:45 05:45 05:45 WBC RBC Hgb Hct MCH MCHC RDW Plt Count Lymph % (Auto) Barren % (Auto) Barren # Seg Neutrophils % Seg Neuts % (Manual) Lymphocytes % (Manual) Basophils % (Manual) Seg Neutrophils # Seg Neutrophils # Man Lymphocytes # (Manual) Monocytes # (Manual) Basophils # (Manual) POC ABG pH ABG pH POC ABG pCO2 POC ABG pO2 ABG pO2 ABG Base Excess ABG Hemoglobin Oxyhemoglobin Sodium Potassium Chloride Carbon Dioxide BUN 32 H 30 H Creatinine 2.5 H 2.6 H Glucose 266 H 271 H POC Glucose Hemoglobin A1c 9.7 H Calcium 8.3 L 8.2 L Phosphorus Magnesium AST Alkaline Phosphatase 145 H Total Protein 4.7 L Albumin 1.8 L Urine WBC (Auto) Urine Creatinine Urine Total Protein 05/31/17 05/31/17 05/31/17 08:18 09:20 12:18 WBC RBC Hgb Hct MCH MCHC RDW Plt Count Lymph % (Auto) Barren % (Auto) Barren # Seg Neutrophils % Seg Neuts % (Manual) Lymphocytes % (Manual) Basophils % (Manual) Seg Neutrophils # Seg Neutrophils # Man Lymphocytes # (Manual) Monocytes # (Manual) Basophils # (Manual) POC ABG pH ABG pH POC ABG pCO2 POC ABG pO2 ABG pO2 ABG Base Excess ABG Hemoglobin Oxyhemoglobin Sodium Potassium Chloride Carbon Dioxide BUN Creatinine Glucose POC Glucose 300 H 254 H 170 H Hemoglobin A1c Calcium Phosphorus Magnesium AST Alkaline Phosphatase Total Protein Albumin Urine WBC (Auto) Urine Creatinine Urine Total Protein 05/31/17 05/31/17 05/31/17 14:09 14:17 14:27 WBC RBC Hgb Hct MCH MCHC RDW Plt Count Lymph % (Auto) Barren % (Auto) Barren # Seg Neutrophils % Seg Neuts % (Manual) Lymphocytes % (Manual) Basophils % (Manual) Seg Neutrophils # Seg Neutrophils # Man Lymphocytes # (Manual) Monocytes # (Manual) Basophils # (Manual) POC ABG pH ABG pH POC ABG pCO2 POC ABG pO2 ABG pO2 ABG Base Excess ABG Hemoglobin Oxyhemoglobin Sodium Potassium 3.4 L Chloride 107.1 H Carbon Dioxide BUN 30 H Creatinine 2.6 H Glucose 38 L* POC Glucose < 40 L 189 H Hemoglobin A1c Calcium 7.6 L Phosphorus Magnesium AST Alkaline Phosphatase Total Protein Albumin Urine WBC (Auto) Urine Creatinine Urine Total Protein 05/31/17 05/31/17 05/31/17 15:01 16:01 17:19 WBC RBC Hgb Hct MCH MCHC RDW Plt Count Lymph % (Auto) Barren % (Auto) Barren # Seg Neutrophils % Seg Neuts % (Manual) Lymphocytes % (Manual) Basophils % (Manual) Seg Neutrophils # Seg Neutrophils # Man Lymphocytes # (Manual) Monocytes # (Manual) Basophils # (Manual) POC ABG pH ABG pH POC ABG pCO2 POC ABG pO2 ABG pO2 ABG Base Excess ABG Hemoglobin Oxyhemoglobin Sodium Potassium Chloride Carbon Dioxide BUN Creatinine Glucose POC Glucose 130 H 165 H 131 H Hemoglobin A1c Calcium Phosphorus Magnesium AST Alkaline Phosphatase Total Protein Albumin Urine WBC (Auto) Urine Creatinine Urine Total Protein 05/31/17 05/31/17 05/31/17 18:46 19:54 20:36 WBC RBC Hgb Hct MCH MCHC RDW Plt Count Lymph % (Auto) Barren % (Auto) Barren # Seg Neutrophils % Seg Neuts % (Manual) Lymphocytes % (Manual) Basophils % (Manual) Seg Neutrophils # Seg Neutrophils # Man Lymphocytes # (Manual) Monocytes # (Manual) Basophils # (Manual) POC ABG pH ABG pH POC ABG pCO2 POC ABG pO2 ABG pO2 ABG Base Excess ABG Hemoglobin Oxyhemoglobin Sodium Potassium Chloride Carbon Dioxide BUN 29 H Creatinine 2.4 H Glucose 124 H POC Glucose 128 H 157 H Hemoglobin A1c Calcium 7.9 L Phosphorus Magnesium AST Alkaline Phosphatase Total Protein Albumin Urine WBC (Auto) Urine Creatinine Urine Total Protein 05/31/17 06/01/17 06/01/17 21:41 03:22 04:06 WBC RBC Hgb Hct MCH MCHC RDW Plt Count Lymph % (Auto) Barren % (Auto) Barren # Seg Neutrophils % Seg Neuts % (Manual) Lymphocytes % (Manual) Basophils % (Manual) Seg Neutrophils # Seg Neutrophils # Man Lymphocytes # (Manual) Monocytes # (Manual) Basophils # (Manual) POC ABG pH ABG pH POC ABG pCO2 POC ABG pO2 ABG pO2 ABG Base Excess ABG Hemoglobin Oxyhemoglobin Sodium Potassium Chloride Carbon Dioxide 19 L BUN 29 H Creatinine 2.6 H Glucose 205 H POC Glucose 158 H 251 H Hemoglobin A1c Calcium 7.8 L Phosphorus Magnesium AST Alkaline Phosphatase Total Protein Albumin Urine WBC (Auto) Urine Creatinine Urine Total Protein 06/01/17 06/01/17 06/01/17 04:30 09:15 09:59 WBC 19.7 H RBC Hgb 10.0 L Hct MCH 27 L MCHC RDW 17.1 H Plt Count Lymph % (Auto) Barren % (Auto) Barren # Seg Neutrophils % Seg Neuts % (Manual) Lymphocytes % (Manual) Basophils % (Manual) Seg Neutrophils # Seg Neutrophils # Man Lymphocytes # (Manual) Monocytes # (Manual) Basophils # (Manual) POC ABG pH 7.464 H ABG pH POC ABG pCO2 31.3 L POC ABG pO2 ABG pO2 ABG Base Excess ABG Hemoglobin Oxyhemoglobin Sodium Potassium Chloride Carbon Dioxide BUN Creatinine Glucose POC Glucose 330 H Hemoglobin A1c Calcium Phosphorus Magnesium AST Alkaline Phosphatase Total Protein Albumin Urine WBC (Auto) Urine Creatinine Urine Total Protein 06/01/17 06/01/17 06/01/17 11:36 12:25 13:43 WBC RBC Hgb Hct MCH MCHC RDW Plt Count Lymph % (Auto) Barren % (Auto) Barren # Seg Neutrophils % Seg Neuts % (Manual) Lymphocytes % (Manual) Basophils % (Manual) Seg Neutrophils # Seg Neutrophils # Man Lymphocytes # (Manual) Monocytes # (Manual) Basophils # (Manual) POC ABG pH ABG pH POC ABG pCO2 POC ABG pO2 ABG pO2 ABG Base Excess ABG Hemoglobin Oxyhemoglobin Sodium Potassium Chloride Carbon Dioxide BUN Creatinine Glucose POC Glucose 431 H 434 H 445 H Hemoglobin A1c Calcium Phosphorus Magnesium AST Alkaline Phosphatase Total Protein Albumin Urine WBC (Auto) Urine Creatinine Urine Total Protein 06/01/17 06/01/17 06/01/17 14:26 15:46 16:03 WBC RBC Hgb Hct MCH MCHC RDW Plt Count Lymph % (Auto) Barren % (Auto) Barren # Seg Neutrophils % Seg Neuts % (Manual) Lymphocytes % (Manual) Basophils % (Manual) Seg Neutrophils # Seg Neutrophils # Man Lymphocytes # (Manual) Monocytes # (Manual) Basophils # (Manual) POC ABG pH ABG pH POC ABG pCO2 POC ABG pO2 ABG pO2 ABG Base Excess ABG Hemoglobin Oxyhemoglobin Sodium Potassium Chloride Carbon Dioxide BUN Creatinine Glucose POC Glucose 310 H 292 H 244 H Hemoglobin A1c Calcium Phosphorus Magnesium AST Alkaline Phosphatase Total Protein Albumin Urine WBC (Auto) Urine Creatinine Urine Total Protein 06/01/17 06/01/17 06/01/17 16:59 17:49 19:05 WBC RBC Hgb Hct MCH MCHC RDW Plt Count Lymph % (Auto) Barren % (Auto) Barren # Seg Neutrophils % Seg Neuts % (Manual) Lymphocytes % (Manual) Basophils % (Manual) Seg Neutrophils # Seg Neutrophils # Man Lymphocytes # (Manual) Monocytes # (Manual) Basophils # (Manual) POC ABG pH ABG pH POC ABG pCO2 POC ABG pO2 ABG pO2 ABG Base Excess ABG Hemoglobin Oxyhemoglobin Sodium Potassium Chloride Carbon Dioxide BUN Creatinine Glucose POC Glucose 260 H 203 H 156 H Hemoglobin A1c Calcium Phosphorus Magnesium AST Alkaline Phosphatase Total Protein Albumin Urine WBC (Auto) Urine Creatinine Urine Total Protein 06/02/17 06/02/17 06/02/17 00:09 01:06 02:31 WBC RBC Hgb Hct MCH MCHC RDW Plt Count Lymph % (Auto) Barren % (Auto) Barren # Seg Neutrophils % Seg Neuts % (Manual) Lymphocytes % (Manual) Basophils % (Manual) Seg Neutrophils # Seg Neutrophils # Man Lymphocytes # (Manual) Monocytes # (Manual) Basophils # (Manual) POC ABG pH ABG pH POC ABG pCO2 POC ABG pO2 ABG pO2 ABG Base Excess ABG Hemoglobin Oxyhemoglobin Sodium Potassium Chloride Carbon Dioxide BUN Creatinine Glucose POC Glucose 137 H 146 H 182 H Hemoglobin A1c Calcium Phosphorus Magnesium AST Alkaline Phosphatase Total Protein Albumin Urine WBC (Auto) Urine Creatinine Urine Total Protein 06/02/17 06/02/17 06/02/17 04:03 04:24 04:24 WBC 21.0 H RBC 3.62 L Hgb Hct 29.6 L MCH MCHC RDW 16.5 H Plt Count Lymph % (Auto) Barren % (Auto) Barren # Seg Neutrophils % Seg Neuts % (Manual) 98.0 H Lymphocytes % (Manual) 1.0 L Basophils % (Manual) Seg Neutrophils # Seg Neutrophils # Man 20.6 H Lymphocytes # (Manual) 0.2 L Monocytes # (Manual) Basophils # (Manual) POC ABG pH ABG pH POC ABG pCO2 POC ABG pO2 ABG pO2 ABG Base Excess ABG Hemoglobin Oxyhemoglobin Sodium Potassium Chloride Carbon Dioxide 20 L BUN 36 H Creatinine 2.8 H Glucose 137 H POC Glucose 150 H Hemoglobin A1c Calcium 7.5 L Phosphorus 4.60 H Magnesium 1.50 L AST Alkaline Phosphatase 132 H Total Protein 4.1 L Albumin 1.7 L Urine WBC (Auto) Urine Creatinine Urine Total Protein 06/02/17 06/02/17 06/02/17 05:01 05:14 06:20 WBC RBC Hgb Hct MCH MCHC RDW Plt Count Lymph % (Auto) Barren % (Auto) Barren # Seg Neutrophils % Seg Neuts % (Manual) Lymphocytes % (Manual) Basophils % (Manual) Seg Neutrophils # Seg Neutrophils # Man Lymphocytes # (Manual) Monocytes # (Manual) Basophils # (Manual) POC ABG pH 7.517 H ABG pH POC ABG pCO2 28.4 L POC ABG pO2 67 L ABG pO2 ABG Base Excess ABG Hemoglobin Oxyhemoglobin Sodium Potassium Chloride Carbon Dioxide BUN Creatinine Glucose POC Glucose 137 H 163 H Hemoglobin A1c Calcium Phosphorus Magnesium AST Alkaline Phosphatase Total Protein Albumin Urine WBC (Auto) Urine Creatinine Urine Total Protein 06/02/17 06/02/17 06/02/17 07:43 09:40 10:18 WBC RBC Hgb Hct MCH MCHC RDW Plt Count Lymph % (Auto) Barren % (Auto) Barren # Seg Neutrophils % Seg Neuts % (Manual) Lymphocytes % (Manual) Basophils % (Manual) Seg Neutrophils # Seg Neutrophils # Man Lymphocytes # (Manual) Monocytes # (Manual) Basophils # (Manual) POC ABG pH ABG pH POC ABG pCO2 POC ABG pO2 ABG pO2 ABG Base Excess ABG Hemoglobin Oxyhemoglobin Sodium Potassium Chloride Carbon Dioxide BUN Creatinine Glucose POC Glucose 135 H 196 H Hemoglobin A1c Calcium Phosphorus Magnesium AST Alkaline Phosphatase Total Protein Albumin Urine WBC (Auto) Urine Creatinine Urine Total Protein < 4 L 06/02/17 06/02/17 06/02/17 10:33 11:55 17:39 WBC RBC Hgb Hct MCH MCHC RDW Plt Count Lymph % (Auto) Barren % (Auto) Barren # Seg Neutrophils % Seg Neuts % (Manual) Lymphocytes % (Manual) Basophils % (Manual) Seg Neutrophils # Seg Neutrophils # Man Lymphocytes # (Manual) Monocytes # (Manual) Basophils # (Manual) POC ABG pH ABG pH POC ABG pCO2 POC ABG pO2 ABG pO2 ABG Base Excess ABG Hemoglobin Oxyhemoglobin Sodium Potassium Chloride Carbon Dioxide BUN Creatinine Glucose POC Glucose 188 H 110 H 150 H Hemoglobin A1c Calcium Phosphorus Magnesium AST Alkaline Phosphatase Total Protein Albumin Urine WBC (Auto) Urine Creatinine Urine Total Protein 06/02/17 06/02/17 06/03/17 18:12 21:32 02:02 WBC RBC Hgb Hct MCH MCHC RDW Plt Count Lymph % (Auto) Barren % (Auto) Barren # Seg Neutrophils % Seg Neuts % (Manual) Lymphocytes % (Manual) Basophils % (Manual) Seg Neutrophils # Seg Neutrophils # Man Lymphocytes # (Manual) Monocytes # (Manual) Basophils # (Manual) POC ABG pH ABG pH POC ABG pCO2 POC ABG pO2 ABG pO2 ABG Base Excess ABG Hemoglobin Oxyhemoglobin Sodium Potassium Chloride Carbon Dioxide BUN Creatinine Glucose POC Glucose 131 H 143 H 191 H Hemoglobin A1c Calcium Phosphorus Magnesium AST Alkaline Phosphatase Total Protein Albumin Urine WBC (Auto) Urine Creatinine Urine Total Protein 06/03/17 06/03/17 06/03/17 04:14 04:14 05:06 WBC 21.1 H RBC Hgb Hct MCH 27 L MCHC RDW 15.9 H Plt Count 447 H Lymph % (Auto) Barren % (Auto) Barren # Seg Neutrophils % Seg Neuts % (Manual) 94.0 H Lymphocytes % (Manual) 3.0 L Basophils % (Manual) Seg Neutrophils # Seg Neutrophils # Man 19.8 H Lymphocytes # (Manual) 0.6 L Monocytes # (Manual) Basophils # (Manual) POC ABG pH ABG pH POC ABG pCO2 28.6 L POC ABG pO2 112 H ABG pO2 ABG Base Excess ABG Hemoglobin Oxyhemoglobin Sodium Potassium Chloride Carbon Dioxide 14 L BUN 45 H Creatinine 2.8 H Glucose 211 H POC Glucose Hemoglobin A1c Calcium 8.0 L Phosphorus Magnesium AST Alkaline Phosphatase Total Protein Albumin Urine WBC (Auto) Urine Creatinine Urine Total Protein 06/03/17 06/03/17 06/03/17 06:00 10:20 13:43 WBC RBC Hgb Hct MCH MCHC RDW Plt Count Lymph % (Auto) Barren % (Auto) Barren # Seg Neutrophils % Seg Neuts % (Manual) Lymphocytes % (Manual) Basophils % (Manual) Seg Neutrophils # Seg Neutrophils # Man Lymphocytes # (Manual) Monocytes # (Manual) Basophils # (Manual) POC ABG pH ABG pH POC ABG pCO2 POC ABG pO2 ABG pO2 ABG Base Excess ABG Hemoglobin Oxyhemoglobin Sodium Potassium Chloride Carbon Dioxide BUN Creatinine Glucose POC Glucose 224 H 226 H 296 H Hemoglobin A1c Calcium Phosphorus Magnesium AST Alkaline Phosphatase Total Protein Albumin Urine WBC (Auto) Urine Creatinine Urine Total Protein 06/03/17 06/03/17 06/03/17 17:38 19:23 20:45 WBC RBC Hgb Hct MCH MCHC RDW Plt Count Lymph % (Auto) Barren % (Auto) Barren # Seg Neutrophils % Seg Neuts % (Manual) Lymphocytes % (Manual) Basophils % (Manual) Seg Neutrophils # Seg Neutrophils # Man Lymphocytes # (Manual) Monocytes # (Manual) Basophils # (Manual) POC ABG pH ABG pH POC ABG pCO2 POC ABG pO2 ABG pO2 ABG Base Excess ABG Hemoglobin Oxyhemoglobin Sodium Potassium Chloride Carbon Dioxide BUN Creatinine Glucose POC Glucose 295 H 275 H 338 H Hemoglobin A1c Calcium Phosphorus Magnesium AST Alkaline Phosphatase Total Protein Albumin Urine WBC (Auto) Urine Creatinine Urine Total Protein 06/03/17 06/03/17 06/04/17 21:50 23:08 00:16 WBC RBC Hgb Hct MCH MCHC RDW Plt Count Lymph % (Auto) Barren % (Auto) Barren # Seg Neutrophils % Seg Neuts % (Manual) Lymphocytes % (Manual) Basophils % (Manual) Seg Neutrophils # Seg Neutrophils # Man Lymphocytes # (Manual) Monocytes # (Manual) Basophils # (Manual) POC ABG pH ABG pH POC ABG pCO2 POC ABG pO2 ABG pO2 ABG Base Excess ABG Hemoglobin Oxyhemoglobin Sodium Potassium Chloride Carbon Dioxide BUN Creatinine Glucose POC Glucose 223 H 214 H 226 H Hemoglobin A1c Calcium Phosphorus Magnesium AST Alkaline Phosphatase Total Protein Albumin Urine WBC (Auto) Urine Creatinine Urine Total Protein 06/04/17 06/04/17 06/04/17 01:05 02:07 03:27 WBC RBC Hgb Hct MCH MCHC RDW Plt Count Lymph % (Auto) Barren % (Auto) Barren # Seg Neutrophils % Seg Neuts % (Manual) Lymphocytes % (Manual) Basophils % (Manual) Seg Neutrophils # Seg Neutrophils # Man Lymphocytes # (Manual) Monocytes # (Manual) Basophils # (Manual) POC ABG pH ABG pH POC ABG pCO2 POC ABG pO2 ABG pO2 ABG Base Excess ABG Hemoglobin Oxyhemoglobin Sodium Potassium Chloride Carbon Dioxide BUN Creatinine Glucose POC Glucose 217 H 229 H 185 H Hemoglobin A1c Calcium Phosphorus Magnesium AST Alkaline Phosphatase Total Protein Albumin Urine WBC (Auto) Urine Creatinine Urine Total Protein 06/04/17 06/04/17 06/04/17 03:52 04:05 04:05 WBC 19.6 H RBC Hgb Hct MCH 26 L MCHC RDW 15.6 H Plt Count 564 H Lymph % (Auto) 7.3 L Barren % (Auto) 10.8 H Barren # 2.1 H Seg Neutrophils % 81.4 H Seg Neuts % (Manual) Lymphocytes % (Manual) Basophils % (Manual) Seg Neutrophils # 15.9 H Seg Neutrophils # Man Lymphocytes # (Manual) Monocytes # (Manual) Basophils # (Manual) POC ABG pH ABG pH POC ABG pCO2 POC ABG pO2 ABG pO2 ABG Base Excess ABG Hemoglobin Oxyhemoglobin Sodium Potassium Chloride Carbon Dioxide 17 L BUN 52 H Creatinine 2.5 H Glucose 163 H POC Glucose 181 H Hemoglobin A1c Calcium 7.9 L Phosphorus Magnesium AST Alkaline Phosphatase Total Protein Albumin Urine WBC (Auto) Urine Creatinine Urine Total Protein 06/04/17 06/04/17 06/04/17 04:56 05:39 06:12 WBC RBC Hgb Hct MCH MCHC RDW Plt Count Lymph % (Auto) Barren % (Auto) Barren # Seg Neutrophils % Seg Neuts % (Manual) Lymphocytes % (Manual) Basophils % (Manual) Seg Neutrophils # Seg Neutrophils # Man Lymphocytes # (Manual) Monocytes # (Manual) Basophils # (Manual) POC ABG pH 7.486 H ABG pH POC ABG pCO2 26.8 L POC ABG pO2 ABG pO2 ABG Base Excess ABG Hemoglobin Oxyhemoglobin Sodium Potassium Chloride Carbon Dioxide BUN Creatinine Glucose POC Glucose 208 H 225 H Hemoglobin A1c Calcium Phosphorus Magnesium AST Alkaline Phosphatase Total Protein Albumin Urine WBC (Auto) Urine Creatinine Urine Total Protein 06/04/17 06/04/17 06/04/17 07:07 08:06 09:15 WBC RBC Hgb Hct MCH MCHC RDW Plt Count Lymph % (Auto) Barren % (Auto) Barren # Seg Neutrophils % Seg Neuts % (Manual) Lymphocytes % (Manual) Basophils % (Manual) Seg Neutrophils # Seg Neutrophils # Man Lymphocytes # (Manual) Monocytes # (Manual) Basophils # (Manual) POC ABG pH ABG pH POC ABG pCO2 POC ABG pO2 ABG pO2 ABG Base Excess ABG Hemoglobin Oxyhemoglobin Sodium Potassium Chloride Carbon Dioxide BUN Creatinine Glucose POC Glucose 201 H 171 H 178 H Hemoglobin A1c Calcium Phosphorus Magnesium AST Alkaline Phosphatase Total Protein Albumin Urine WBC (Auto) Urine Creatinine Urine Total Protein 06/04/17 06/04/17 06/04/17 10:16 12:22 17:21 WBC RBC Hgb Hct MCH MCHC RDW Plt Count Lymph % (Auto) Barren % (Auto) Barren # Seg Neutrophils % Seg Neuts % (Manual) Lymphocytes % (Manual) Basophils % (Manual) Seg Neutrophils # Seg Neutrophils # Man Lymphocytes # (Manual) Monocytes # (Manual) Basophils # (Manual) POC ABG pH ABG pH POC ABG pCO2 POC ABG pO2 ABG pO2 ABG Base Excess ABG Hemoglobin Oxyhemoglobin Sodium Potassium Chloride Carbon Dioxide BUN Creatinine Glucose POC Glucose 191 H 188 H Hemoglobin A1c Calcium Phosphorus Magnesium AST Alkaline Phosphatase Total Protein Albumin Urine WBC (Auto) Urine Creatinine 78.7 H Urine Total Protein 197 H 06/04/17 06/04/17 06/05/17 17:56 22:10 00:00 WBC RBC Hgb Hct MCH MCHC RDW Plt Count Lymph % (Auto) [place] % (Auto) [place] # Seg Neutrophils % Seg Neuts % (Manual) Lymphocytes % (Manual) Basophils % (Manual) Seg Neutrophils # Seg Neutrophils # Man Lymphocytes # (Manual) Monocytes # (Manual) Basophils # (Manual) POC ABG pH ABG pH POC ABG pCO2 POC ABG pO2 ABG pO2 ABG Base Excess ABG Hemoglobin Oxyhemoglobin Sodium Potassium Chloride Carbon Dioxide 17 L BUN 55 H Creatinine 2.3 H Glucose 300 H POC Glucose 266 H 337 H Hemoglobin A1c Calcium 7.4 L Phosphorus Magnesium AST Alkaline Phosphatase Total Protein Albumin Urine WBC (Auto) Urine Creatinine Urine Total Protein 06/05/17 06/05/17 06/05/17 03:26 04:11 05:13 WBC RBC Hgb Hct MCH MCHC RDW Plt Count Lymph % (Auto) [place] % (Auto) [place] # Seg Neutrophils % Seg Neuts % (Manual) Lymphocytes % (Manual) Basophils % (Manual) Seg Neutrophils # Seg Neutrophils # Man Lymphocytes # (Manual) Monocytes # (Manual) Basophils # (Manual) POC ABG pH 7.586 H ABG pH POC ABG pCO2 22.6 L POC ABG pO2 179 H ABG pO2 ABG Base Excess ABG Hemoglobin Oxyhemoglobin Sodium Potassium Chloride Carbon Dioxide 19 L BUN 55 H Creatinine 2.2 H Glucose 226 H POC Glucose 220 H Hemoglobin A1c Calcium 7.7 L Phosphorus Magnesium AST Alkaline Phosphatase Total Protein Albumin Urine WBC (Auto) Urine Creatinine Urine Total Protein 06/05/17 06/05/17 06/05/17 12:42 18:24 21:23 WBC RBC Hgb Hct MCH MCHC RDW Plt Count Lymph % (Auto) [place] % (Auto) [place] # Seg Neutrophils % Seg Neuts % (Manual) Lymphocytes % (Manual) Basophils % (Manual) Seg Neutrophils # Seg Neutrophils # Man Lymphocytes # (Manual) Monocytes # (Manual) Basophils # (Manual) POC ABG pH ABG pH POC ABG pCO2 POC ABG pO2 ABG pO2 ABG Base Excess ABG Hemoglobin Oxyhemoglobin Sodium Potassium Chloride Carbon Dioxide BUN Creatinine Glucose POC Glucose 168 H 121 H 166 H Hemoglobin A1c Calcium Phosphorus Magnesium AST Alkaline Phosphatase Total Protein Albumin Urine WBC (Auto) Urine Creatinine Urine Total Protein 06/06/17 06/06/17 06/06/17 00:14 04:11 06:19 WBC RBC Hgb Hct MCH MCHC RDW Plt Count Lymph % (Auto) [place] % (Auto) [place] # Seg Neutrophils % Seg Neuts % (Manual) Lymphocytes % (Manual) Basophils % (Manual) Seg Neutrophils # Seg Neutrophils # Man Lymphocytes # (Manual) Monocytes # (Manual) Basophils # (Manual) POC ABG pH ABG pH POC ABG pCO2 33.0 L POC ABG pO2 ABG pO2 ABG Base Excess ABG Hemoglobin Oxyhemoglobin Sodium Potassium Chloride Carbon Dioxide BUN Creatinine Glucose POC Glucose 179 H 180 H Hemoglobin A1c Calcium Phosphorus Magnesium AST Alkaline Phosphatase Total Protein Albumin Urine WBC (Auto) Urine Creatinine Urine Total Protein 06/06/17 06/06/17 06/06/17 12:19 18:38 20:01 WBC RBC Hgb Hct MCH MCHC RDW Plt Count Lymph % (Auto) [place] % (Auto) [place] # Seg Neutrophils % Seg Neuts % (Manual) Lymphocytes % (Manual) Basophils % (Manual) Seg Neutrophils # Seg Neutrophils # Man Lymphocytes # (Manual) Monocytes # (Manual) Basophils # (Manual) POC ABG pH ABG pH POC ABG pCO2 POC ABG pO2 ABG pO2 ABG Base Excess ABG Hemoglobin Oxyhemoglobin Sodium Potassium Chloride Carbon Dioxide BUN Creatinine Glucose POC Glucose 123 H 56 L 65 L Hemoglobin A1c Calcium Phosphorus Magnesium AST Alkaline Phosphatase Total Protein Albumin Urine WBC (Auto) Urine Creatinine Urine Total Protein 06/06/17 06/07/17 06/07/17 23:51 04:25 05:29 WBC RBC Hgb Hct MCH MCHC RDW Plt Count Lymph % (Auto) [place] % (Auto) [place] # Seg Neutrophils % Seg Neuts % (Manual) Lymphocytes % (Manual) Basophils % (Manual) Seg Neutrophils # Seg Neutrophils # Man Lymphocytes # (Manual) Monocytes # (Manual) Basophils # (Manual) POC ABG pH 7.470 H ABG pH POC ABG pCO2 33.6 L POC ABG pO2 ABG pO2 ABG Base Excess ABG Hemoglobin Oxyhemoglobin Sodium Potassium Chloride Carbon Dioxide BUN Creatinine Glucose POC Glucose 118 H 183 H Hemoglobin A1c Calcium Phosphorus Magnesium AST Alkaline Phosphatase Total Protein Albumin Urine WBC (Auto) Urine Creatinine Urine Total Protein 06/07/17 06/07/17 06/07/17 07:51 12:00 18:08 WBC RBC Hgb Hct MCH MCHC RDW Plt Count Lymph % (Auto) [place] % (Auto) [place] # Seg Neutrophils % Seg Neuts % (Manual) Lymphocytes % (Manual) Basophils % (Manual) Seg Neutrophils # Seg Neutrophils # Man Lymphocytes # (Manual) Monocytes # (Manual) Basophils # (Manual) POC ABG pH ABG pH POC ABG pCO2 POC ABG pO2 ABG pO2 ABG Base Excess ABG Hemoglobin Oxyhemoglobin Sodium 135 L Potassium Chloride Carbon Dioxide 21 L BUN 50 H Creatinine 1.8 H Glucose 232 H POC Glucose 361 H 249 H Hemoglobin A1c Calcium 8.0 L Phosphorus Magnesium AST Alkaline Phosphatase Total Protein Albumin Urine WBC (Auto) Urine Creatinine Urine Total Protein 06/07/17 06/08/17 06/08/17 23:53 05:25 11:50 WBC RBC Hgb Hct MCH MCHC RDW Plt Count Lymph % (Auto) [place] % (Auto) [place] # Seg Neutrophils % Seg Neuts % (Manual) Lymphocytes % (Manual) Basophils % (Manual) Seg Neutrophils # Seg Neutrophils # Man Lymphocytes # (Manual) Monocytes # (Manual) Basophils # (Manual) POC ABG pH ABG pH POC ABG pCO2 POC ABG pO2 ABG pO2 ABG Base Excess ABG Hemoglobin Oxyhemoglobin Sodium Potassium Chloride Carbon Dioxide BUN Creatinine Glucose POC Glucose 190 H 136 H 166 H Hemoglobin A1c Calcium Phosphorus Magnesium AST Alkaline Phosphatase Total Protein Albumin Urine WBC (Auto) Urine Creatinine Urine Total Protein 06/08/17 06/08/17 06/08/17 14:20 14:20 19:05 WBC 15.7 H RBC 3.49 L Hgb 9.4 L Hct 27.9 L MCH 27 L MCHC RDW 15.3 H Plt Count 590 H Lymph % (Auto) [place] % (Auto) [place] # Seg Neutrophils % Seg Neuts % (Manual) Lymphocytes % (Manual) Basophils % (Manual) Seg Neutrophils # Seg Neutrophils # Man Lymphocytes # (Manual) Monocytes # (Manual) Basophils # (Manual) POC ABG pH ABG pH POC ABG pCO2 POC ABG pO2 ABG pO2 ABG Base Excess ABG Hemoglobin Oxyhemoglobin Sodium Potassium Chloride Carbon Dioxide BUN 55 H Creatinine 1.7 H Glucose 117 H POC Glucose 135 H Hemoglobin A1c Calcium Phosphorus Magnesium AST Alkaline Phosphatase Total Protein Albumin Urine WBC (Auto) Urine Creatinine Urine Total Protein 06/08/17 06/08/17 06/09/17 21:52 23:55 04:18 WBC RBC Hgb Hct MCH MCHC RDW Plt Count Lymph % (Auto) [place] % (Auto) [place] # Seg Neutrophils % Seg Neuts % (Manual) Lymphocytes % (Manual) Basophils % (Manual) Seg Neutrophils # Seg Neutrophils # Man Lymphocytes # (Manual) Monocytes # (Manual) Basophils # (Manual) POC ABG pH ABG pH POC ABG pCO2 POC ABG pO2 ABG pO2 ABG Base Excess ABG Hemoglobin Oxyhemoglobin Sodium Potassium Chloride Carbon Dioxide BUN 51 H Creatinine 1.6 H Glucose POC Glucose 186 H 209 H Hemoglobin A1c Calcium Phosphorus Magnesium AST Alkaline Phosphatase Total Protein Albumin Urine WBC (Auto) Urine Creatinine Urine Total Protein 06/09/17 06/09/17 06/09/17 09:56 12:42 18:09 WBC RBC Hgb Hct MCH MCHC RDW Plt Count Lymph % (Auto) [place] % (Auto) [place] # Seg Neutrophils % Seg Neuts % (Manual) Lymphocytes % (Manual) Basophils % (Manual) Seg Neutrophils # Seg Neutrophils # Man Lymphocytes # (Manual) Monocytes # (Manual) Basophils # (Manual) POC ABG pH ABG pH POC ABG pCO2 POC ABG pO2 ABG pO2 ABG Base Excess ABG Hemoglobin Oxyhemoglobin Sodium Potassium Chloride Carbon Dioxide BUN Creatinine Glucose POC Glucose 63 L 142 H 166 H Hemoglobin A1c Calcium Phosphorus Magnesium AST Alkaline Phosphatase Total Protein Albumin Urine WBC (Auto) Urine Creatinine Urine Total Protein 06/09/17 06/10/17 06/10/17 23:39 03:24 04:28 WBC 15.1 H RBC 2.99 L Hgb 8.1 L Hct 23.6 L MCH 27 L MCHC 35 H RDW 15.4 H Plt Count 500 H Lymph % (Auto) [place] % (Auto) [place] # Seg Neutrophils % Seg Neuts % (Manual) Lymphocytes % (Manual) Basophils % (Manual) Seg Neutrophils # Seg Neutrophils # Man Lymphocytes # (Manual) Monocytes # (Manual) Basophils # (Manual) POC ABG pH 7.461 H ABG pH POC ABG pCO2 POC ABG pO2 131 H ABG pO2 ABG Base Excess ABG Hemoglobin Oxyhemoglobin Sodium Potassium Chloride Carbon Dioxide BUN Creatinine Glucose POC Glucose 284 H Hemoglobin A1c Calcium Phosphorus Magnesium AST Alkaline Phosphatase Total Protein Albumin Urine WBC (Auto) Urine Creatinine Urine Total Protein 06/10/17 06/10/17 06/10/17 04:28 05:10 12:41 WBC RBC Hgb Hct MCH MCHC RDW Plt Count Lymph % (Auto) [place] % (Auto) [place] # Seg Neutrophils % Seg Neuts % (Manual) Lymphocytes % (Manual) Basophils % (Manual) Seg Neutrophils # Seg Neutrophils # Man Lymphocytes # (Manual) Monocytes # (Manual) Basophils # (Manual) POC ABG pH ABG pH POC ABG pCO2 POC ABG pO2 ABG pO2 ABG Base Excess ABG Hemoglobin Oxyhemoglobin Sodium Potassium Chloride Carbon Dioxide BUN 53 H Creatinine 1.8 H Glucose 185 H POC Glucose 190 H 50 L Hemoglobin A1c Calcium Phosphorus Magnesium AST Alkaline Phosphatase Total Protein Albumin Urine WBC (Auto) Urine Creatinine Urine Total Protein 06/10/17 06/10/17 06/11/17 14:35 18:31 00:09 WBC RBC Hgb Hct MCH MCHC RDW Plt Count Lymph % (Auto) [place] % (Auto) [place] # Seg Neutrophils % Seg Neuts % (Manual) Lymphocytes % (Manual) Basophils % (Manual) Seg Neutrophils # Seg Neutrophils # Man Lymphocytes # (Manual) Monocytes # (Manual) Basophils # (Manual) POC ABG pH ABG pH POC ABG pCO2 POC ABG pO2 ABG pO2 ABG Base Excess ABG Hemoglobin Oxyhemoglobin Sodium Potassium Chloride Carbon Dioxide BUN Creatinine Glucose POC Glucose 58 L 55 L 126 H Hemoglobin A1c Calcium Phosphorus Magnesium AST Alkaline Phosphatase Total Protein Albumin Urine WBC (Auto) Urine Creatinine Urine Total Protein 06/11/17 06/11/17 06/11/17 05:32 06:01 06:03 WBC 15.6 H RBC 3.03 L Hgb 8.3 L Hct 24.0 L MCH MCHC 35 H RDW Plt Count 492 H Lymph % (Auto) [place] % (Auto) [place] # Seg Neutrophils % Seg Neuts % (Manual) Lymphocytes % (Manual) Basophils % (Manual) Seg Neutrophils # Seg Neutrophils # Man Lymphocytes # (Manual) Monocytes # (Manual) Basophils # (Manual) POC ABG pH ABG pH POC ABG pCO2 POC ABG pO2 ABG pO2 ABG Base Excess ABG Hemoglobin Oxyhemoglobin Sodium Potassium Chloride Carbon Dioxide BUN 55 H Creatinine 1.8 H Glucose 228 H POC Glucose 219 H Hemoglobin A1c Calcium Phosphorus Magnesium AST Alkaline Phosphatase Total Protein Albumin Urine WBC (Auto) Urine Creatinine Urine Total Protein 06/11/17 06/11/17 06/12/17 11:53 18:31 04:24 WBC 17.4 H RBC 2.90 L Hgb 8.0 L Hct 23.0 L MCH MCHC 35 H RDW Plt Count 460 H Lymph % (Auto) [place] % (Auto) [place] # Seg Neutrophils % Seg Neuts % (Manual) Lymphocytes % (Manual) Basophils % (Manual) Seg Neutrophils # Seg Neutrophils # Man Lymphocytes # (Manual) Monocytes # (Manual) Basophils # (Manual) POC ABG pH ABG pH POC ABG pCO2 POC ABG pO2 ABG pO2 ABG Base Excess ABG Hemoglobin Oxyhemoglobin Sodium Potassium Chloride Carbon Dioxide BUN Creatinine Glucose POC Glucose 220 H 254 H Hemoglobin A1c Calcium Phosphorus Magnesium AST Alkaline Phosphatase Total Protein Albumin Urine WBC (Auto) Urine Creatinine Urine Total Protein 06/12/17 06/12/17 06/12/17 05:37 05:40 06:00 WBC RBC Hgb Hct MCH MCHC RDW Plt Count Lymph % (Auto) [place] % (Auto) [place] # Seg Neutrophils % Seg Neuts % (Manual) Lymphocytes % (Manual) Basophils % (Manual) Seg Neutrophils # Seg Neutrophils # Man Lymphocytes # (Manual) Monocytes # (Manual) Basophils # (Manual) POC ABG pH ABG pH POC ABG pCO2 POC ABG pO2 ABG pO2 ABG Base Excess ABG Hemoglobin Oxyhemoglobin Sodium Potassium Chloride Carbon Dioxide BUN Creatinine Glucose 41 L POC Glucose < 40 L < 40 L Hemoglobin A1c Calcium Phosphorus Magnesium AST Alkaline Phosphatase Total Protein Albumin Urine WBC (Auto) Urine Creatinine Urine Total Protein 06/12/17 06/12/17 06/12/17 07:09 07:51 10:06 WBC RBC Hgb Hct MCH MCHC RDW Plt Count Lymph % (Auto) [place] % (Auto) [place] # Seg Neutrophils % Seg Neuts % (Manual) Lymphocytes % (Manual) Basophils % (Manual) Seg Neutrophils # Seg Neutrophils # Man Lymphocytes # (Manual) Monocytes # (Manual) Basophils # (Manual) POC ABG pH ABG pH POC ABG pCO2 POC ABG pO2 ABG pO2 ABG Base Excess ABG Hemoglobin Oxyhemoglobin Sodium Potassium Chloride Carbon Dioxide BUN Creatinine Glucose POC Glucose 64 L 42 L 61 L Hemoglobin A1c Calcium Phosphorus Magnesium AST Alkaline Phosphatase Total Protein Albumin Urine WBC (Auto) Urine Creatinine Urine Total Protein 06/12/17 06/12/17 06/12/17 11:16 14:04 18:03 WBC RBC Hgb Hct MCH MCHC RDW Plt Count Lymph % (Auto) [place] % (Auto) [place] # Seg Neutrophils % Seg Neuts % (Manual) Lymphocytes % (Manual) Basophils % (Manual) Seg Neutrophils # Seg Neutrophils # Man Lymphocytes # (Manual) Monocytes # (Manual) Basophils # (Manual) POC ABG pH ABG pH POC ABG pCO2 POC ABG pO2 ABG pO2 ABG Base Excess ABG Hemoglobin Oxyhemoglobin Sodium Potassium Chloride Carbon Dioxide BUN Creatinine Glucose POC Glucose 67 L 112 H 116 H Hemoglobin A1c Calcium Phosphorus Magnesium AST Alkaline Phosphatase Total Protein Albumin Urine WBC (Auto) Urine Creatinine Urine Total Protein 06/12/17 06/12/17 06/12/17 19:30 20:34 21:01 WBC RBC Hgb Hct MCH MCHC RDW Plt Count Lymph % (Auto) [place] % (Auto) [place] # Seg Neutrophils % Seg Neuts % (Manual) Lymphocytes % (Manual) Basophils % (Manual) Seg Neutrophils # Seg Neutrophils # Man Lymphocytes # (Manual) Monocytes # (Manual) Basophils # (Manual) POC ABG pH ABG pH POC ABG pCO2 POC ABG pO2 ABG pO2 ABG Base Excess ABG Hemoglobin Oxyhemoglobin Sodium Potassium Chloride Carbon Dioxide BUN Creatinine Glucose POC Glucose 156 H 172 H 174 H Hemoglobin A1c Calcium Phosphorus Magnesium AST Alkaline Phosphatase Total Protein Albumin Urine WBC (Auto) Urine Creatinine Urine Total Protein 06/12/17 06/12/17 06/13/17 22:00 23:23 00:27 WBC RBC Hgb Hct MCH MCHC RDW Plt Count Lymph % (Auto) [place] % (Auto) [place] # Seg Neutrophils % Seg Neuts % (Manual) Lymphocytes % (Manual) Basophils % (Manual) Seg Neutrophils # Seg Neutrophils # Man Lymphocytes # (Manual) Monocytes # (Manual) Basophils # (Manual) POC ABG pH ABG pH POC ABG pCO2 POC ABG pO2 ABG pO2 ABG Base Excess ABG Hemoglobin Oxyhemoglobin Sodium Potassium Chloride Carbon Dioxide BUN Creatinine Glucose POC Glucose 240 H 286 H 182 H Hemoglobin A1c Calcium Phosphorus Magnesium AST Alkaline Phosphatase Total Protein Albumin Urine WBC (Auto) Urine Creatinine Urine Total Protein 06/13/17 06/13/17 06/13/17 01:28 02:10 03:15 WBC RBC Hgb Hct MCH MCHC RDW Plt Count Lymph % (Auto) [place] % (Auto) [place] # Seg Neutrophils % Seg Neuts % (Manual) Lymphocytes % (Manual) Basophils % (Manual) Seg Neutrophils # Seg Neutrophils # Man Lymphocytes # (Manual) Monocytes # (Manual) Basophils # (Manual) POC ABG pH ABG pH POC ABG pCO2 POC ABG pO2 ABG pO2 ABG Base Excess ABG Hemoglobin Oxyhemoglobin Sodium Potassium Chloride Carbon Dioxide BUN Creatinine Glucose POC Glucose 304 H 277 H 318 H Hemoglobin A1c Calcium Phosphorus Magnesium AST Alkaline Phosphatase Total Protein Albumin Urine WBC (Auto) Urine Creatinine Urine Total Protein 06/13/17 06/13/17 06/13/17 04:15 05:10 05:38 WBC RBC Hgb Hct MCH MCHC RDW Plt Count Lymph % (Auto) [place] % (Auto) [place] # Seg Neutrophils % Seg Neuts % (Manual) Lymphocytes % (Manual) Basophils % (Manual) Seg Neutrophils # Seg Neutrophils # Man Lymphocytes # (Manual) Monocytes # (Manual) Basophils # (Manual) POC ABG pH ABG pH POC ABG pCO2 POC ABG pO2 ABG pO2 ABG Base Excess ABG Hemoglobin Oxyhemoglobin Sodium Potassium Chloride Carbon Dioxide BUN Creatinine Glucose POC Glucose 294 H 275 H 315 H Hemoglobin A1c Calcium Phosphorus Magnesium AST Alkaline Phosphatase Total Protein Albumin Urine WBC (Auto) Urine Creatinine Urine Total Protein 06/13/17 06/13/17 06/13/17 06:21 12:02 16:52 WBC RBC Hgb Hct MCH MCHC RDW Plt Count Lymph % (Auto) [place] % (Auto) [place] # Seg Neutrophils % Seg Neuts % (Manual) Lymphocytes % (Manual) Basophils % (Manual) Seg Neutrophils # Seg Neutrophils # Man Lymphocytes # (Manual) Monocytes # (Manual) Basophils # (Manual) POC ABG pH ABG pH POC ABG pCO2 POC ABG pO2 ABG pO2 ABG Base Excess ABG Hemoglobin Oxyhemoglobin Sodium Potassium Chloride Carbon Dioxide BUN Creatinine Glucose POC Glucose 350 H 333 H 343 H Hemoglobin A1c Calcium Phosphorus Magnesium AST Alkaline Phosphatase Total Protein Albumin Urine WBC (Auto) Urine Creatinine Urine Total Protein 06/14/17 06/14/17 06/14/17 00:01 04:18 04:18 WBC 29.6 H RBC 2.81 L Hgb 7.8 L Hct 23.2 L MCH MCHC RDW 15.3 H Plt Count Lymph % (Auto) [place] % (Auto) [place] # Seg Neutrophils % Seg Neuts % (Manual) Lymphocytes % (Manual) Basophils % (Manual) Seg Neutrophils # Seg Neutrophils # Man Lymphocytes # (Manual) Monocytes # (Manual) Basophils # (Manual) POC ABG pH ABG pH POC ABG pCO2 POC ABG pO2 ABG pO2 ABG Base Excess ABG Hemoglobin Oxyhemoglobin Sodium Potassium Chloride Carbon Dioxide 20 L BUN 75 H Creatinine 2.2 H Glucose 364 H POC Glucose 297 H Hemoglobin A1c Calcium Phosphorus Magnesium AST Alkaline Phosphatase Total Protein Albumin Urine WBC (Auto) Urine Creatinine Urine Total Protein 06/14/17 06/14/17 06/14/17 05:10 08:25 11:46 WBC RBC Hgb Hct MCH MCHC RDW Plt Count Lymph % (Auto) [place] % (Auto) [place] # Seg Neutrophils % Seg Neuts % (Manual) Lymphocytes % (Manual) Basophils % (Manual) Seg Neutrophils # Seg Neutrophils # Man Lymphocytes # (Manual) Monocytes # (Manual) Basophils # (Manual) POC ABG pH ABG pH POC ABG pCO2 POC ABG pO2 ABG pO2 ABG Base Excess ABG Hemoglobin Oxyhemoglobin Sodium Potassium Chloride Carbon Dioxide BUN Creatinine Glucose POC Glucose 350 H 322 H 391 H Hemoglobin A1c Calcium Phosphorus Magnesium AST Alkaline Phosphatase Total Protein Albumin Urine WBC (Auto) Urine Creatinine Urine Total Protein 06/14/17 06/15/17 06/15/17 18:04 00:16 11:20 WBC RBC Hgb Hct MCH MCHC RDW Plt Count Lymph % (Auto) [place] % (Auto) [place] # Seg Neutrophils % Seg Neuts % (Manual) Lymphocytes % (Manual) Basophils % (Manual) Seg Neutrophils # Seg Neutrophils # Man Lymphocytes # (Manual) Monocytes # (Manual) Basophils # (Manual) POC ABG pH ABG pH POC ABG pCO2 POC ABG pO2 ABG pO2 ABG Base Excess ABG Hemoglobin Oxyhemoglobin Sodium Potassium Chloride Carbon Dioxide 21 L BUN 88 H Creatinine 2.7 H Glucose 302 H POC Glucose 384 H 435 H Hemoglobin A1c Calcium Phosphorus Magnesium AST Alkaline Phosphatase Total Protein Albumin Urine WBC (Auto) Urine Creatinine Urine Total Protein 06/15/17 06/15/17 06/15/17 11:47 17:35 21:33 WBC RBC Hgb Hct MCH MCHC RDW Plt Count Lymph % (Auto) [place] % (Auto) [place] # Seg Neutrophils % Seg Neuts % (Manual) Lymphocytes % (Manual) Basophils % (Manual) Seg Neutrophils # Seg Neutrophils # Man Lymphocytes # (Manual) Monocytes # (Manual) Basophils # (Manual) POC ABG pH ABG pH POC ABG pCO2 POC ABG pO2 ABG pO2 ABG Base Excess ABG Hemoglobin Oxyhemoglobin Sodium Potassium Chloride Carbon Dioxide BUN Creatinine Glucose POC Glucose 311 H 428 H 346 H Hemoglobin A1c Calcium Phosphorus Magnesium AST Alkaline Phosphatase Total Protein Albumin Urine WBC (Auto) Urine Creatinine Urine Total Protein 06/15/17 06/15/17 06/16/17 23:23 Unknown 05:36 WBC RBC Hgb Hct MCH MCHC RDW Plt Count Lymph % (Auto) [place] % (Auto) [place] # Seg Neutrophils % Seg Neuts % (Manual) Lymphocytes % (Manual) Basophils % (Manual) Seg Neutrophils # Seg Neutrophils # Man Lymphocytes # (Manual) Monocytes # (Manual) Basophils # (Manual) POC ABG pH ABG pH POC ABG pCO2 POC ABG pO2 ABG pO2 ABG Base Excess ABG Hemoglobin 10.1 L Oxyhemoglobin 94.9 L Sodium Potassium Chloride Carbon Dioxide BUN Creatinine Glucose POC Glucose 351 H 303 H Hemoglobin A1c Calcium Phosphorus Magnesium AST Alkaline Phosphatase Total Protein Albumin Urine WBC (Auto) Urine Creatinine Urine Total Protein 06/16/17 06/16/17 06/16/17 06:33 06:33 08:26 WBC 25.8 H RBC 2.68 L Hgb 7.2 L Hct 21.6 L MCH 27 L MCHC RDW 15.9 H Plt Count Lymph % (Auto) [place] % (Auto) [place] # Seg Neutrophils % Seg Neuts % (Manual) Lymphocytes % (Manual) Basophils % (Manual) Seg Neutrophils # Seg Neutrophils # Man Lymphocytes # (Manual) Monocytes # (Manual) Basophils # (Manual) POC ABG pH ABG pH POC ABG pCO2 POC ABG pO2 ABG pO2 ABG Base Excess ABG Hemoglobin Oxyhemoglobin Sodium Potassium Chloride Carbon Dioxide 21 L BUN 94 H Creatinine 2.7 H Glucose 280 H POC Glucose Hemoglobin A1c Calcium Phosphorus Magnesium AST Alkaline Phosphatase Total Protein Albumin Urine WBC (Auto) > 182.0 H Urine Creatinine Urine Total Protein 06/16/17 06/16/17 06/16/17 08:26 11:45 18:28 WBC RBC Hgb Hct MCH MCHC RDW Plt Count Lymph % (Auto) [place] % (Auto) [place] # Seg Neutrophils % Seg Neuts % (Manual) Lymphocytes % (Manual) Basophils % (Manual) Seg Neutrophils # Seg Neutrophils # Man Lymphocytes # (Manual) Monocytes # (Manual) Basophils # (Manual) POC ABG pH ABG pH POC ABG pCO2 POC ABG pO2 ABG pO2 ABG Base Excess ABG Hemoglobin Oxyhemoglobin Sodium Potassium Chloride Carbon Dioxide BUN Creatinine Glucose POC Glucose 263 H 175 H Hemoglobin A1c Calcium Phosphorus Magnesium AST Alkaline Phosphatase Total Protein Albumin Urine WBC (Auto) Urine Creatinine 119.9 H Urine Total Protein 295 H 06/16/17 06/17/17 06/17/17 23:36 03:51 04:04 WBC 28.1 H RBC 2.61 L Hgb 7.1 L Hct 21.5 L MCH 27 L MCHC RDW 15.8 H Plt Count Lymph % (Auto) [place] % (Auto) [place] # Seg Neutrophils % Seg Neuts % (Manual) 90.5 H Lymphocytes % (Manual) 2.0 L Basophils % (Manual) Seg Neutrophils # Seg Neutrophils # Man 25.4 H Lymphocytes # (Manual) 0.6 L Monocytes # (Manual) 1.5 H Basophils # (Manual) POC ABG pH ABG pH 7.483 H POC ABG pCO2 POC ABG pO2 ABG pO2 144.0 H ABG Base Excess -2.1 L ABG Hemoglobin 6.5 L Oxyhemoglobin Sodium Potassium Chloride Carbon Dioxide BUN Creatinine Glucose POC Glucose 152 H Hemoglobin A1c Calcium Phosphorus Magnesium AST Alkaline Phosphatase Total Protein Albumin Urine WBC (Auto) Urine Creatinine Urine Total Protein 06/17/17 06/17/17 06/17/17 04:04 05:34 09:34 WBC RBC Hgb Hct MCH MCHC RDW Plt Count Lymph % (Auto) [place] % (Auto) [place] # Seg Neutrophils % Seg Neuts % (Manual) Lymphocytes % (Manual) Basophils % (Manual) Seg Neutrophils # Seg Neutrophils # Man Lymphocytes # (Manual) Monocytes # (Manual) Basophils # (Manual) POC ABG pH ABG pH POC ABG pCO2 POC ABG pO2 ABG pO2 ABG Base Excess ABG Hemoglobin Oxyhemoglobin Sodium 136 L Potassium Chloride Carbon Dioxide 20 L BUN 97 H Creatinine 2.7 H Glucose 151 H POC Glucose 203 H 243 H Hemoglobin A1c Calcium Phosphorus Magnesium AST Alkaline Phosphatase Total Protein Albumin Urine WBC (Auto) Urine Creatinine Urine Total Protein 06/17/17 06/17/17 06/17/17 12:36 17:24 21:36 WBC RBC Hgb Hct MCH MCHC RDW Plt Count Lymph % (Auto) [place] % (Auto) [place] # Seg Neutrophils % Seg Neuts % (Manual) Lymphocytes % (Manual) Basophils % (Manual) Seg Neutrophils # Seg Neutrophils # Man Lymphocytes # (Manual) Monocytes # (Manual) Basophils # (Manual) POC ABG pH ABG pH POC ABG pCO2 POC ABG pO2 ABG pO2 ABG Base Excess ABG Hemoglobin Oxyhemoglobin Sodium Potassium Chloride Carbon Dioxide BUN Creatinine Glucose POC Glucose 214 H 131 H 175 H Hemoglobin A1c Calcium Phosphorus Magnesium AST Alkaline Phosphatase Total Protein Albumin Urine WBC (Auto) Urine Creatinine Urine Total Protein 06/18/17 06/18/17 00:14 04:55 WBC RBC Hgb Hct MCH MCHC RDW Plt Count Lymph % (Auto) [place] % (Auto) [place] # Seg Neutrophils % Seg Neuts % (Manual) Lymphocytes % (Manual) Basophils % (Manual) Seg Neutrophils # Seg Neutrophils # Man Lymphocytes # (Manual) Monocytes # (Manual) Basophils # (Manual) POC ABG pH ABG pH POC ABG pCO2 POC ABG pO2 ABG pO2 ABG Base Excess ABG Hemoglobin Oxyhemoglobin Sodium Potassium Chloride Carbon Dioxide BUN Creatinine Glucose POC Glucose 171 H 161 H Hemoglobin A1c Calcium Phosphorus Magnesium AST Alkaline Phosphatase Total Protein Albumin Urine WBC (Auto) Urine Creatinine Urine Total Protein
[2017-06-18] MEDS: LOVENOX SUB-Q SCH (09:42)
[2017-06-18] MEDS: MAXIPIME 2 GM in NACL 0.9% 20 ML IV SCH (09:42)
[2017-06-18] MEDS: KEPPRA PO SCH ×2 (09:43→22:32)
[2017-06-18] MEDS: ROBINUL FEEDTUBE SCH ×3 (09:44→23:31)
[2017-06-18] MEDS: PEPCID PO SCH (09:44)
[2017-06-18] MEDS: AMBIEN FEEDTUBE SCH (09:44)
[2017-06-18] MEDS: LASIX PO SCH (09:45)
[2017-06-18] MEDS: ALDACTONE PO SCH (09:45)
[2017-06-18] MEDS: COREG PO SCH (09:45)
[2017-06-18] MEDS ORDERED: VANCOMYCIN 1,250 MG in NACL 0.9% 250ML 250 ML IV ONE (10:00)
[2017-06-18] MEDS ORDERED: PANCREAZE DR 10,500 UNIT FEEDTUBE PRN (10:31)
[2017-06-18] MEDS ORDERED: SODIUM BICARBONATE FEEDTUBE PRN (10:31)
[2017-06-18] MEDS ORDERED: SIMPLE SYRUP FEEDTUBE PRN ×2 (10:31)
[2017-06-18 11:36] LABS: Calcium 8.9 mg/dL (8.4-10.2)
--- NOTE | 2017-06-18 13:56 | Progress Note ---
Assessment and Plan - Patient Problems (1) Acute renal failure with tubular necrosis Current Visit: Yes Status: Acute Plan to address problem: Non-Oliguric Acute renal failure/acute tubular necrosis. BUN rising out of proportion to Cr, despite holding lasix. with down trending Hb , to rule out GI bleed, check stool guaiac. transfuse for Hb < 7 cont lasix 40mg po qd Supportive care for JERRI avoid nephrotoxins, NSAIDs, IV contrast. overall poor prognosis. Discussion about goals of care ongoing. (2) Acute respiratory failure Current Visit: Yes Status: Acute Qualifiers: Respiratory failure complication: hypoxia Qualified Code(s): J96.01 - Acute respiratory failure with hypoxia Plan to address problem: Ventilator management by pulmonary/CCM. (3) Hyperosmolar non-ketotic state in patient with type 2 diabetes mellitus Current Visit: Yes Status: Acute Plan to address problem: Blood sugar management by primary attending (4) Proteinuria Current Visit: Yes Status: Chronic Plan to address problem: likely due to underlying diabetic nephropathy. ARAM-I contraindicated due to h/o allergy (5) Hypertension Current Visit: Yes Status: Acute Qualifiers: Hypertension type: essential hypertension Qualified Code(s): I10 - Essential (primary) hypertension Plan to address problem: Blood pressure has improved. Follow blood pressure on current medications (6) Acute systolic heart failure Current Visit: Yes Status: Acute Plan to address problem: Continue beta jas. Continue spironolactone and monitor fluid balance. ARAM inhibitor/angiotensin receptor jas contraindicated due to her history of allergy. resume lasix 40mg po qd (7) Anemia in chronic illness Current Visit: Yes Status: Acute Plan to address problem: monitor Hb, transfuse with 1PRBC for Hb < 7, check stool guaiac Subjective Date of service: 06/18/17 Principal diagnosis: coma Interval history: pt s/p trach/peg, on vent, remains unresponsive Objective - Vital Signs Vital signs: Vital Signs - 12hr 06/18/17 06/18/17 06/18/17 02:00 03:00 03:58 Temperature 100.2 F H Pulse Rate 99 H 100 H Respiratory 20 23 Rate Blood Pressure 119/62 119/60 O2 Sat by Pulse 100 100 Oximetry 06/18/17 06/18/17 06/18/17 04:00 04:42 05:00 Temperature Pulse Rate 97 H 100 H 98 H Respiratory 23 24 Rate Blood Pressure 115/58 115/58 135/72 O2 Sat by Pulse 100 100 100 Oximetry 06/18/17 06/18/17 06/18/17 06:00 06:01 06:02 Temperature Pulse Rate 94 H 94 H 94 H Respiratory 22 Rate Blood Pressure 126/76 127/76 127/76 O2 Sat by Pulse 100 Oximetry 06/18/17 06/18/17 06/18/17 07:00 07:36 07:40 Temperature Pulse Rate 97 H 96 H 96 H Respiratory 22 21 Rate Blood Pressure 131/76 131/76 131/76 O2 Sat by Pulse 100 100 99 Oximetry 06/18/17 06/18/17 06/18/17 07:46 08:00 09:00 Temperature 98.5 F Pulse Rate 89 84 86 Respiratory 21 16 Rate Blood Pressure 131/76 108/57 112/65 O2 Sat by Pulse 96 96 100 Oximetry 06/18/17 06/18/17 06/18/17 09:45 10:00 11:00 Temperature Pulse Rate 85 85 95 H Respiratory 19 18 Rate Blood Pressure 112/65 109/67 115/66 O2 Sat by Pulse 100 100 Oximetry 06/18/17 13:14 Temperature Pulse Rate 86 Respiratory Rate Blood Pressure 109/66 O2 Sat by Pulse 97 Oximetry - General Appearance General appearance: well-developed, intubated, comatose EENT: ATNC, PERRL, mucous membranes moist Neck: no JVD Respiratory: Present: Decreased Breath Sounds Cardiology: regular, S1S2 Gastrointestinal: normoactive bowel sounds Integumentary: no rash, other (2+ edema b/l LE ) Neurologic: obtunded - Lab 06/17/17 04:04 06/18/17 10:57 Most recent lab results ABG pH 7.483 pH Units (7.350-7.450) H 06/17/17 03:51 ABG pCO2 28.7 mm Hg 06/17/17 03:51 ABG pO2 144.0 mm Hg (80.0-90.0) H 06/17/17 03:51 ABG HCO3 21.1 mmol/L (20.0-26.0) 06/17/17 03:51 ABG O2 Saturation 98.9 % (95.0-99.0) 06/17/17 03:51 Calcium 8.9 mg/dL (8.4-10.2) 06/18/17 10:57 Phosphorus 4.40 mg/dL (2.5-4.5) 06/07/17 07:51 Magnesium 1.70 mg/dL (1.7-2.3) 06/07/17 07:51 Urine Creatinine 119.9 mg/dL (0.1-20.0) H 06/16/17 08:26 Urine Sodium 39 mmol/L 06/16/17 08:26 Urine Total Protein 295 mg/dL (5-11.8) H 06/16/17 08:26
[2017-06-18] MEDS ORDERED: NACL 0.9% 250ML 250 ML IV ONE (16:21)
--- NOTE | 2017-06-18 16:47 | Progress Note ---
Assessment and Plan /Acute hypoxic respiratory failure -was intubated, on mechanical ventilation>96hrs, now tracheostomy to ventilator -Had PEG and Trach, 06/11/17 - s/p bronch on 05/17 showed Right upper lobe atelectasis, respiratory failure partial mucous plugging right upper lobe /Status post cardiac arrest - Cardiology following - EF 15-20% /Acute encephalopathy with anoxic hypoxic brain injury -Continue supportive care - discussion with family in progress for comfort care /Seizure disorder-complex partial - Patient is on IV Keppra - Cont Ambien -Neurology following Cardiomyopathy -Cardiology following, continue aspirin, statin, beta jas, Lasix and spironolactone Hyperosmolar hyperglycemic syndrome in Diabetes mellitus type 2. This had resolved - She was on Insulin drip, now on subcut Insulin - Insulin dose increased to 25 Units bid because of hyperglycemia /Hypoglycemia.episodes, Now resolved /Acute kidney injury. -Creatinine 2.1 today - Nephrology following /Hypertension. BP stable with beta jas, hydralazine, Imdur, Lasix and spironolactone /Sepsis, with leukocytosis, tachycardia tachypnea - Aspiration pneumonia versus UTI versus atelectasis - Continue antibiotics for now, will follow bronchoscopy report and BAL culture /DVT prophylaxis with Lovenox /Disposition - Continue ICU care. poor prognosis -will need LTAC placement POOR PROGNOSIS Brief history: Patient had 36-year-old -[place] female was admitted to the floor for seizure episode, altered mental status, acute hypoxic respiratory failure, patient was intubated in the emergency department patient had PEA and resuscitated successfully. She was placed on trach and PEG tube on 06/11/17. Hospitalist Physical Gen appearance:Not in acute distress, lying in bed, obese HEENT: facial edema, Neck:supple, no JVD, Tracheostomy Lungs: Coarse breath sounds bilaterally, no wheeze Heart: S1 and S2 regular, no murmurs, rubs or gallop Abdomen: soft, non tender, non distended, normal bowel sounds, PEG tube present Ext: Edema both upper and lower extremities, no cyanosis,anasarca Neuro: Unresponsive Subjective Date of service: 06/18/17 Principal diagnosis: coma Interval history: pt seen and examined Unresponsive, No fever PEG and Trach done 06/11 s/p bronch on 05/17 Objective - Constitutional Vitals: Vital Signs - 12hr 0406/18/17 06/18/17 05:00 06:00 06:01 Temperature Pulse Rate 98 H 94 H 94 H Respiratory 24 22 Rate Blood Pressure 135/72 126/76 127/76 O2 Sat by Pulse 100 100 Oximetry 06/18/17 06/18/17 06/18/17 06:02 07:00 07:36 Temperature Pulse Rate 94 H 97 H 96 H Respiratory 22 Rate Blood Pressure 127/76 131/76 131/76 O2 Sat by Pulse 100 100 Oximetry 06/18/17 06/18/17 06/18/17 07:40 07:46 08:00 Temperature 98.5 F Pulse Rate 96 H 89 84 Respiratory 21 21 Rate Blood Pressure 131/76 131/76 108/57 O2 Sat by Pulse 99 96 96 Oximetry 06/18/17 06/18/17 06/18/17 09:00 09:45 10:00 Temperature Pulse Rate 86 85 85 Respiratory 16 19 Rate Blood Pressure 112/65 112/65 109/67 O2 Sat by Pulse 100 100 Oximetry 06/18/17 06/18/17 06/18/17 11:00 12:00 13:00 Temperature 98.1 F Pulse Rate 95 H 89 79 Respiratory 18 15 20 Rate Blood Pressure 115/66 119/66 119/66 O2 Sat by Pulse 100 100 95 Oximetry 06/18/17 06/18/17 06/18/17 13:14 14:00 15:00 Temperature Pulse Rate 86 76 80 Respiratory 18 19 Rate Blood Pressure 109/66 93/46 96/55 O2 Sat by Pulse 97 96 100 Oximetry 06/18/17 06/18/17 06/18/17 15:29 15:30 16:00 Temperature 98 F Pulse Rate 77 Respiratory 18 Rate Blood Pressure 96/58 96/58 90/52 O2 Sat by Pulse 98 Oximetry - Labs CBC & Chem 7: 06/19/17 04:24 06/19/17 04:24 Labs: Abnormal lab results 06/17/17 06/17/17 06/17/17 Range/Units 09:34 17:24 21:36 Sodium (137-145) mmol/L Carbon Dioxide (22-30) mmol/L BUN (7-17) mg/dL Creatinine (0.7-1.2) mg/dL Glucose (65-100) mg/dL POC Glucose 243 H 131 H 175 H (70-105) 06/18/17 06/18/17 06/18/17 Range/Units 00:14 04:55 10:57 Sodium 134 L (137-145) mmol/L Carbon Dioxide 19 L (22-30) mmol/L BUN 107 H (7-17) mg/dL Creatinine 2.7 H (0.7-1.2) mg/dL Glucose 196 H (65-100) mg/dL POC Glucose 171 H 161 H (70-105)
[2017-06-19] MEDS: ISORDIL TITRADOSE PO SCH ×4 (04:13→22:34)
[2017-06-19] MEDS: COREG PO SCH ×3 (04:13→22:33)
[2017-06-19] MEDS: APRESOLINE PO SCH ×4 (04:13→22:33)
[2017-06-19 05:42] LABS: Hemoglobin 6.7 gm/dl (10.1-14.3); Mean Corpuscular HGB Conc 33 % (30-34); Mean Corpuscular Hemoglobin 27 pg (28-32); Mean Corpuscular Volume 81 fl (79-97); Platelet Count 401 K/mm3 (140-440); Red Blood Count 2.46 M/mm3 (3.65-5.03); Red Cell Distribution Width 15.4 % (13.2-15.2)
[2017-06-19 06:04] LABS: Calcium 8.8 mg/dL (8.4-10.2)
[2017-06-19] MEDS: HumaLOG SUB-Q SCH ×3 (06:17→17:29)
[2017-06-19 08:10] LABS: Anisocytosis 1+; Band Neutrophils # (Manual) 0.3 K/mm3; Basophils % (Manual) 0 % (0.0-1.8); Eosinophils % (Manual) 0 % (0.0-4.3); Hypochromasia 2+; Total Cells Counted 100
[2017-06-19 08:11] LABS: Platelet Estimate Consistent w Auto
[2017-06-19] MEDS: KEPPRA PO SCH ×2 (10:52→22:35)
[2017-06-19] MEDS: PEPCID PO SCH (10:54)
[2017-06-19] MEDS: LOVENOX SUB-Q SCH (10:54)
[2017-06-19] MEDS: ALDACTONE PO SCH (10:55)
[2017-06-19] MEDS: LASIX PO SCH (10:55)
[2017-06-19] MEDS ORDERED: NACL 0.9% 500 ML 500 ML IV NR (11:00)
[2017-06-19] MEDS: MAXIPIME 2 GM in NACL 0.9% 20 ML IV SCH (11:04)
[2017-06-19] MEDS: ROBINUL FEEDTUBE SCH ×3 (11:04→22:32)
[2017-06-19] MEDS: AMBIEN FEEDTUBE SCH (11:06)
--- NOTE | 2017-06-19 12:02 | Progress Note ---
Assessment and Plan Fever. None today. RUL atelectasis right lung. WBC is still trending up. BAL positive for Klebsiella pneumoniae, sensitive to cefepime VAP. See above Status post cardiac arrest Acute respiratory failure. Metabolic encephalopathy. No major changes today. DKA Seizures clinically, she appears to be controlled Recommendations Continue cefepime I will continue vancomycin for the moment out of concern of the WBC change Neurology reevaluation. See prior notes Discussed with family at the bedside in detail. All questions answered Critical care time was 31 minutes of [id number] evaluation and coordination of care Subjective Date of service: 06/19/17 Principal diagnosis: coma Interval history: Trach, nonresponsive on ventilators support. Objective Vital Signs - 12hr 06/19/17 06/19/17 06/19/17 00:00 00:04 00:20 Temperature Pulse Rate 84 85 Pulse Rate [ 84 From Monitor] Respiratory 22 23 Rate Blood Pressure 110/56 110/56 110/56 O2 Sat by Pulse 100 100 100 Oximetry O2 Sat by Pulse 100 Oximetry [ Assessment] 06/19/17 06/19/17 06/19/17 01:00 01:45 02:00 Temperature 99.1 F Pulse Rate 82 83 Pulse Rate [ From Monitor] Respiratory 18 22 Rate Blood Pressure 122/72 126/75 O2 Sat by Pulse 100 100 Oximetry O2 Sat by Pulse Oximetry [ Assessment] 06/19/17 06/19/17 06/19/17 03:00 04:00 04:18 Temperature 98 F Pulse Rate 82 83 81 Pulse Rate [ 80 From Monitor] Respiratory 20 21 Rate Blood Pressure 125/73 120/65 120/65 O2 Sat by Pulse 100 100 95 Oximetry O2 Sat by Pulse Oximetry [ Assessment] 06/19/17 06/19/17 06/19/17 05:00 06:00 06:16 Temperature Pulse Rate 82 79 Pulse Rate [ From Monitor] Respiratory 20 22 Rate Blood Pressure 122/66 109/60 109/60 O2 Sat by Pulse 99 100 Oximetry O2 Sat by Pulse Oximetry [ Assessment] 06/19/17 06/19/17 06/19/17:18 07:00 08:00 Temperature 97.9 F Pulse Rate 81 84 Pulse Rate [ From Monitor] Respiratory 21 21 Rate Blood Pressure 109/60 109/60 131/76 O2 Sat by Pulse 97 99 Oximetry O2 Sat by Pulse Oximetry [ Assessment] 06/19/17 06/19/17 06/19/17 09:00 09:04 10:00 Temperature Pulse Rate 84 83 82 Pulse Rate [ From Monitor] Respiratory 36 H 35 H 30 H Rate Blood Pressure 143/72 143/72 143/72 O2 Sat by Pulse 97 98 95 Oximetry O2 Sat by Pulse Oximetry [ Assessment] 06/19/17 10:55 Temperature Pulse Rate 82 Pulse Rate [ From Monitor] Respiratory Rate Blood Pressure 123/63 O2 Sat by Pulse Oximetry O2 Sat by Pulse Oximetry [ Assessment] Constitutional: no acute distress, other Eyes: non-icteric ENT: oropharynx moist, other (trach in position) Neck: supple, no JVD Effort: normal Ascultation: Bilateral: clear, diminished breath sounds Percussion: Bilateral: not dull Cardiovascular: regular rate and rhythm Gastrointestinal: normoactive bowel sounds, soft, non-tender Integumentary: normal Extremities: no cyanosis, no edema, pink and warm Neurologic: other (unresponsive, rolls her eyes sporadically no posturing. Unchanged) Psychiatric: other CBC and BMP: 06/19/17 04:24 06/19/17 04:24 ABG, PT/INR, D-dimer: ABG POC ABG pH 7.461 (7.35-7.45) H 06/10/17 03:24 ABG pH 7.483 pH Units (7.350-7.450) H 06/17/17 03:51 POC ABG pCO2 36.6 (35-45) 06/10/17 03:24 ABG pCO2 28.7 mm Hg 06/17/17 03:51 POC ABG pO2 131 (80-105) H 06/10/17 03:24 ABG pO2 144.0 mm Hg (80.0-90.0) H 06/17/17 03:51 POC ABG HCO3 26.1 06/10/17 03:24 POC ABG Total CO2 27 06/10/17 03:24 POC ABG O2 Sat 99 06/10/17 03:24 ABG O2 Saturation 98.9 % (95.0-99.0) 06/17/17 03:51 PT/INR, D-dimer PT 12.4 Sec. (12.2-14.9) 06/09/17 04:18 INR 0.88 (0.87-1.13) 06/09/17 04:18 Abnormal lab findings: Abnormal Labs 05/30/17 05/30/17 05/30/17 07:48 07:48 08:32 WBC 11.5 H RBC Hgb Hct MCH 27 L MCHC RDW 16.3 H Plt Count Lymph % (Auto) [place] % (Auto) [place] # Seg Neutrophils % Seg Neuts % (Manual) Lymphocytes % (Manual) Basophils % (Manual) Seg Neutrophils # Seg Neutrophils # Man Lymphocytes # (Manual) Monocytes # (Manual) Basophils # (Manual) POC ABG pH ABG pH POC ABG pCO2 POC ABG pO2 ABG pO2 ABG Base Excess ABG Hemoglobin Oxyhemoglobin Sodium 133 L Potassium Chloride 89.9 L Carbon Dioxide BUN 27 H Creatinine 2.0 H Glucose 741 H* POC Glucose > 500 H Hemoglobin A1c Calcium Phosphorus Magnesium AST Alkaline Phosphatase Total Protein Albumin Urine WBC (Auto) Urine Creatinine Urine Total Protein 05/30/17 05/30/17 05/30/17 08:59 08:59 16:08 WBC 14.5 H RBC Hgb Hct MCH MCHC RDW 16.0 H Plt Count Lymph % (Auto) [place] % (Auto) [place] # Seg Neutrophils % Seg Neuts % (Manual) 95.0 H Lymphocytes % (Manual) 2.0 L Basophils % (Manual) 2.0 H Seg Neutrophils # Seg Neutrophils # Man 13.8 H Lymphocytes # (Manual) 0.3 L Monocytes # (Manual) Basophils # (Manual) 0.3 H POC ABG pH ABG pH POC ABG pCO2 POC ABG pO2 ABG pO2 ABG Base Excess ABG Hemoglobin Oxyhemoglobin Sodium 134 L 135 L Potassium 3.2 L Chloride 90.8 L 93.6 L Carbon Dioxide BUN 28 H 30 H Creatinine 2.0 H 2.1 H Glucose 742 H* 567 H* POC Glucose Hemoglobin A1c Calcium Phosphorus Magnesium AST Alkaline Phosphatase 246 H Total Protein 5.6 L Albumin 2.9 L Urine WBC (Auto) Urine Creatinine Urine Total Protein 05/30/17 05/30/17 05/30/17 16:35 17:55 18:59 WBC RBC Hgb Hct MCH MCHC RDW Plt Count Lymph % (Auto) [place] % (Auto) [place] # Seg Neutrophils % Seg Neuts % (Manual) Lymphocytes % (Manual) Basophils % (Manual) Seg Neutrophils # Seg Neutrophils # Man Lymphocytes # (Manual) Monocytes # (Manual) Basophils # (Manual) POC ABG pH 7.544 H ABG pH POC ABG pCO2 32.0 L POC ABG pO2 155 H ABG pO2 ABG Base Excess ABG Hemoglobin Oxyhemoglobin Sodium Potassium 3.1 L Chloride 93.9 L Carbon Dioxide BUN 30 H Creatinine 2.0 H Glucose 561 H* POC Glucose 497 H Hemoglobin A1c Calcium Phosphorus Magnesium AST Alkaline Phosphatase Total Protein Albumin Urine WBC (Auto) Urine Creatinine Urine Total Protein 05/30/17 05/30/17 05/30/17 19:31 19:31 21:38 WBC RBC Hgb Hct MCH MCHC RDW Plt Count Lymph % (Auto) [place] % (Auto) [place] # Seg Neutrophils % Seg Neuts % (Manual) Lymphocytes % (Manual) Basophils % (Manual) Seg Neutrophils # Seg Neutrophils # Man Lymphocytes # (Manual) Monocytes # (Manual) Basophils # (Manual) POC ABG pH ABG pH POC ABG pCO2 POC ABG pO2 ABG pO2 ABG Base Excess ABG Hemoglobin Oxyhemoglobin Sodium 135 L Potassium 2.9 L* Chloride 93.8 L 95.4 L Carbon Dioxide 20 L BUN 29 H 30 H Creatinine 2.2 H 2.3 H Glucose 478 H 364 H POC Glucose Hemoglobin A1c Calcium Phosphorus 2.20 L D Magnesium 1.40 L AST 42 H Alkaline Phosphatase 177 H Total Protein 5.4 L Albumin 2.4 L Urine WBC (Auto) Urine Creatinine Urine Total Protein 05/30/17 05/31/17 05/31/17 23:06 02:17 05:27 WBC RBC Hgb Hct MCH MCHC RDW Plt Count Lymph % (Auto) [place] % (Auto) [place] # Seg Neutrophils % Seg Neuts % (Manual) Lymphocytes % (Manual) Basophils % (Manual) Seg Neutrophils # Seg Neutrophils # Man Lymphocytes # (Manual) Monocytes # (Manual) Basophils # (Manual) POC ABG pH 7.489 H ABG pH POC ABG pCO2 POC ABG pO2 ABG pO2 ABG Base Excess ABG Hemoglobin Oxyhemoglobin Sodium Potassium 3.2 L 3.5 L Chloride Carbon Dioxide BUN 30 H 31 H Creatinine 2.5 H 2.4 H Glucose 288 H 246 H POC Glucose Hemoglobin A1c Calcium 8.3 L Phosphorus Magnesium AST Alkaline Phosphatase Total Protein Albumin Urine WBC (Auto) Urine Creatinine Urine Total Protein 05/31/17 05/31/17 05/31/17 05:45 05:45 05:45 WBC RBC Hgb Hct MCH MCHC RDW Plt Count Lymph % (Auto) [place] % (Auto) [place] # Seg Neutrophils % Seg Neuts % (Manual) Lymphocytes % (Manual) Basophils % (Manual) Seg Neutrophils # Seg Neutrophils # Man Lymphocytes # (Manual) Monocytes # (Manual) Basophils # (Manual) POC ABG pH ABG pH POC ABG pCO2 POC ABG pO2 ABG pO2 ABG Base Excess ABG Hemoglobin Oxyhemoglobin Sodium Potassium Chloride Carbon Dioxide BUN 32 H 30 H Creatinine 2.5 H 2.6 H Glucose 266 H 271 H POC Glucose Hemoglobin A1c 9.7 H Calcium 8.3 L 8.2 L Phosphorus Magnesium AST Alkaline Phosphatase 145 H Total Protein 4.7 L Albumin 1.8 L Urine WBC (Auto) Urine Creatinine Urine Total Protein 05/31/17 05/31/17 05/31/17 08:18 09:20 12:18 WBC RBC Hgb Hct MCH MCHC RDW Plt Count Lymph % (Auto) [place] % (Auto) [place] # Seg Neutrophils % Seg Neuts % (Manual) Lymphocytes % (Manual) Basophils % (Manual) Seg Neutrophils # Seg Neutrophils # Man Lymphocytes # (Manual) Monocytes # (Manual) Basophils # (Manual) POC ABG pH ABG pH POC ABG pCO2 POC ABG pO2 ABG pO2 ABG Base Excess ABG Hemoglobin Oxyhemoglobin Sodium Potassium Chloride Carbon Dioxide BUN Creatinine Glucose POC Glucose 300 H 254 H 170 H Hemoglobin A1c Calcium Phosphorus Magnesium AST Alkaline Phosphatase Total Protein Albumin Urine WBC (Auto) Urine Creatinine Urine Total Protein 05/31/17 05/31/17 05/31/17 14:09 14:17 14:27 WBC RBC Hgb Hct MCH MCHC RDW Plt Count Lymph % (Auto) [place] % (Auto) [place] # Seg Neutrophils % Seg Neuts % (Manual) Lymphocytes % (Manual) Basophils % (Manual) Seg Neutrophils # Seg Neutrophils # Man Lymphocytes # (Manual) Monocytes # (Manual) Basophils # (Manual) POC ABG pH ABG pH POC ABG pCO2 POC ABG pO2 ABG pO2 ABG Base Excess ABG Hemoglobin Oxyhemoglobin Sodium Potassium 3.4 L Chloride 107.1 H Carbon Dioxide BUN 30 H Creatinine 2.6 H Glucose 38 L* POC Glucose < 40 L 189 H Hemoglobin A1c Calcium 7.6 L Phosphorus Magnesium AST Alkaline Phosphatase Total Protein Albumin Urine WBC (Auto) Urine Creatinine Urine Total Protein 05/31/17 05/31/17 05/31/17 15:01 16:01 17:19 WBC RBC Hgb Hct MCH MCHC RDW Plt Count Lymph % (Auto) [place] % (Auto) [place] # Seg Neutrophils % Seg Neuts % (Manual) Lymphocytes % (Manual) Basophils % (Manual) Seg Neutrophils # Seg Neutrophils # Man Lymphocytes # (Manual) Monocytes # (Manual) Basophils # (Manual) POC ABG pH ABG pH POC ABG pCO2 POC ABG pO2 ABG pO2 ABG Base Excess ABG Hemoglobin Oxyhemoglobin Sodium Potassium Chloride Carbon Dioxide BUN Creatinine Glucose POC Glucose 130 H 165 H 131 H Hemoglobin A1c Calcium Phosphorus Magnesium AST Alkaline Phosphatase Total Protein Albumin Urine WBC (Auto) Urine Creatinine Urine Total Protein 05/31/17 05/31/17 05/31/17 18:46 19:54 20:36 WBC RBC Hgb Hct MCH MCHC RDW Plt Count Lymph % (Auto) [place] % (Auto) [place] # Seg Neutrophils % Seg Neuts % (Manual) Lymphocytes % (Manual) Basophils % (Manual) Seg Neutrophils # Seg Neutrophils # Man Lymphocytes # (Manual) Monocytes # (Manual) Basophils # (Manual) POC ABG pH ABG pH POC ABG pCO2 POC ABG pO2 ABG pO2 ABG Base Excess ABG Hemoglobin Oxyhemoglobin Sodium Potassium Chloride Carbon Dioxide BUN 29 H Creatinine 2.4 H Glucose 124 H POC Glucose 128 H 157 H Hemoglobin A1c Calcium 7.9 L Phosphorus Magnesium AST Alkaline Phosphatase Total Protein Albumin Urine WBC (Auto) Urine Creatinine Urine Total Protein 05/31/17 06/01/17 06/01/17 21:41 03:22 04:06 WBC RBC Hgb Hct MCH MCHC RDW Plt Count Lymph % (Auto) [place] % (Auto) [place] # Seg Neutrophils % Seg Neuts % (Manual) Lymphocytes % (Manual) Basophils % (Manual) Seg Neutrophils # Seg Neutrophils # Man Lymphocytes # (Manual) Monocytes # (Manual) Basophils # (Manual) POC ABG pH ABG pH POC ABG pCO2 POC ABG pO2 ABG pO2 ABG Base Excess ABG Hemoglobin Oxyhemoglobin Sodium Potassium Chloride Carbon Dioxide 19 L BUN 29 H Creatinine 2.6 H Glucose 205 H POC Glucose 158 H 251 H Hemoglobin A1c Calcium 7.8 L Phosphorus Magnesium AST Alkaline Phosphatase Total Protein Albumin Urine WBC (Auto) Urine Creatinine Urine Total Protein 06/01/17 06/01/17 06/01/17 04:30 09:15 09:59 WBC 19.7 H RBC Hgb 10.0 L Hct MCH 27 L MCHC RDW 17.1 H Plt Count Lymph % (Auto) [place] % (Auto) [place] # Seg Neutrophils % Seg Neuts % (Manual) Lymphocytes % (Manual) Basophils % (Manual) Seg Neutrophils # Seg Neutrophils # Man Lymphocytes # (Manual) Monocytes # (Manual) Basophils # (Manual) POC ABG pH 7.464 H ABG pH POC ABG pCO2 31.3 L POC ABG pO2 ABG pO2 ABG Base Excess ABG Hemoglobin Oxyhemoglobin Sodium Potassium Chloride Carbon Dioxide BUN Creatinine Glucose POC Glucose 330 H Hemoglobin A1c Calcium Phosphorus Magnesium AST Alkaline Phosphatase Total Protein Albumin Urine WBC (Auto) Urine Creatinine Urine Total Protein 06/01/17 06/01/17 06/01/17 11:36 12:25 13:43 WBC RBC Hgb Hct MCH MCHC RDW Plt Count Lymph % (Auto) [place] % (Auto) [place] # Seg Neutrophils % Seg Neuts % (Manual) Lymphocytes % (Manual) Basophils % (Manual) Seg Neutrophils # Seg Neutrophils # Man Lymphocytes # (Manual) Monocytes # (Manual) Basophils # (Manual) POC ABG pH ABG pH POC ABG pCO2 POC ABG pO2 ABG pO2 ABG Base Excess ABG Hemoglobin Oxyhemoglobin Sodium Potassium Chloride Carbon Dioxide BUN Creatinine Glucose POC Glucose 431 H 434 H 445 H Hemoglobin A1c Calcium Phosphorus Magnesium AST Alkaline Phosphatase Total Protein Albumin Urine WBC (Auto) Urine Creatinine Urine Total Protein 06/01/17 06/01/17 06/01/17 14:26 15:46 16:03 WBC RBC Hgb Hct MCH MCHC RDW Plt Count Lymph % (Auto) [place] % (Auto) [place] # Seg Neutrophils % Seg Neuts % (Manual) Lymphocytes % (Manual) Basophils % (Manual) Seg Neutrophils # Seg Neutrophils # Man Lymphocytes # (Manual) Monocytes # (Manual) Basophils # (Manual) POC ABG pH ABG pH POC ABG pCO2 POC ABG pO2 ABG pO2 ABG Base Excess ABG Hemoglobin Oxyhemoglobin Sodium Potassium Chloride Carbon Dioxide BUN Creatinine Glucose POC Glucose 310 H 292 H 244 H Hemoglobin A1c Calcium Phosphorus Magnesium AST Alkaline Phosphatase Total Protein Albumin Urine WBC (Auto) Urine Creatinine Urine Total Protein 06/01/17 06/01/17 06/01/17 16:59 17:49 19:05 WBC RBC Hgb Hct MCH MCHC RDW Plt Count Lymph % (Auto) [place] % (Auto) [place] # Seg Neutrophils % Seg Neuts % (Manual) Lymphocytes % (Manual) Basophils % (Manual) Seg Neutrophils # Seg Neutrophils # Man Lymphocytes # (Manual) Monocytes # (Manual) Basophils # (Manual) POC ABG pH ABG pH POC ABG pCO2 POC ABG pO2 ABG pO2 ABG Base Excess ABG Hemoglobin Oxyhemoglobin Sodium Potassium Chloride Carbon Dioxide BUN Creatinine Glucose POC Glucose 260 H 203 H 156 H Hemoglobin A1c Calcium Phosphorus Magnesium AST Alkaline Phosphatase Total Protein Albumin Urine WBC (Auto) Urine Creatinine Urine Total Protein 06/02/17 06/02/17 06/02/17 00:09 01:06 02:31 WBC RBC Hgb Hct MCH MCHC RDW Plt Count Lymph % (Auto) [place] % (Auto) [place] # Seg Neutrophils % Seg Neuts % (Manual) Lymphocytes % (Manual) Basophils % (Manual) Seg Neutrophils # Seg Neutrophils # Man Lymphocytes # (Manual) Monocytes # (Manual) Basophils # (Manual) POC ABG pH ABG pH POC ABG pCO2 POC ABG pO2 ABG pO2 ABG Base Excess ABG Hemoglobin Oxyhemoglobin Sodium Potassium Chloride Carbon Dioxide BUN Creatinine Glucose POC Glucose 137 H 146 H 182 H Hemoglobin A1c Calcium Phosphorus Magnesium AST Alkaline Phosphatase Total Protein Albumin Urine WBC (Auto) Urine Creatinine Urine Total Protein 06/02/17 06/02/17 06/02/17 04:03 04:24 04:24 WBC 21.0 H RBC 3.62 L Hgb Hct 29.6 L MCH MCHC RDW 16.5 H Plt Count Lymph % (Auto) [place] % (Auto) [place] # Seg Neutrophils % Seg Neuts % (Manual) 98.0 H Lymphocytes % (Manual) 1.0 L Basophils % (Manual) Seg Neutrophils # Seg Neutrophils # Man 20.6 H Lymphocytes # (Manual) 0.2 L Monocytes # (Manual) Basophils # (Manual) POC ABG pH ABG pH POC ABG pCO2 POC ABG pO2 ABG pO2 ABG Base Excess ABG Hemoglobin Oxyhemoglobin Sodium Potassium Chloride Carbon Dioxide 20 L BUN 36 H Creatinine 2.8 H Glucose 137 H POC Glucose 150 H Hemoglobin A1c Calcium 7.5 L Phosphorus 4.60 H Magnesium 1.50 L AST Alkaline Phosphatase 132 H Total Protein 4.1 L Albumin 1.7 L Urine WBC (Auto) Urine Creatinine Urine Total Protein 06/02/17 06/02/17 06/02/17 05:01 05:14 06:20 WBC RBC Hgb Hct MCH MCHC RDW Plt Count Lymph % (Auto) [place] % (Auto) [place] # Seg Neutrophils % Seg Neuts % (Manual) Lymphocytes % (Manual) Basophils % (Manual) Seg Neutrophils # Seg Neutrophils # Man Lymphocytes # (Manual) Monocytes # (Manual) Basophils # (Manual) POC ABG pH 7.517 H ABG pH POC ABG pCO2 28.4 L POC ABG pO2 67 L ABG pO2 ABG Base Excess ABG Hemoglobin Oxyhemoglobin Sodium Potassium Chloride Carbon Dioxide BUN Creatinine Glucose POC Glucose 137 H 163 H Hemoglobin A1c Calcium Phosphorus Magnesium AST Alkaline Phosphatase Total Protein Albumin Urine WBC (Auto) Urine Creatinine Urine Total Protein 06/02/17 06/02/17 06/02/17 07:43 09:40 10:18 WBC RBC Hgb Hct MCH MCHC RDW Plt Count Lymph % (Auto) [place] % (Auto) [place] # Seg Neutrophils % Seg Neuts % (Manual) Lymphocytes % (Manual) Basophils % (Manual) Seg Neutrophils # Seg Neutrophils # Man Lymphocytes # (Manual) Monocytes # (Manual) Basophils # (Manual) POC ABG pH ABG pH POC ABG pCO2 POC ABG pO2 ABG pO2 ABG Base Excess ABG Hemoglobin Oxyhemoglobin Sodium Potassium Chloride Carbon Dioxide BUN Creatinine Glucose POC Glucose 135 H 196 H Hemoglobin A1c Calcium Phosphorus Magnesium AST Alkaline Phosphatase Total Protein Albumin Urine WBC (Auto) Urine Creatinine Urine Total Protein < 4 L 06/02/17 06/02/17 06/02/17 10:33 11:55 17:39 WBC RBC Hgb Hct MCH MCHC RDW Plt Count Lymph % (Auto) [place] % (Auto) [place] # Seg Neutrophils % Seg Neuts % (Manual) Lymphocytes % (Manual) Basophils % (Manual) Seg Neutrophils # Seg Neutrophils # Man Lymphocytes # (Manual) Monocytes # (Manual) Basophils # (Manual) POC ABG pH ABG pH POC ABG pCO2 POC ABG pO2 ABG pO2 ABG Base Excess ABG Hemoglobin Oxyhemoglobin Sodium Potassium Chloride Carbon Dioxide BUN Creatinine Glucose POC Glucose 188 H 110 H 150 H Hemoglobin A1c Calcium Phosphorus Magnesium AST Alkaline Phosphatase Total Protein Albumin Urine WBC (Auto) Urine Creatinine Urine Total Protein 06/02/17 06/02/17 06/03/17 18:12 21:32 02:02 WBC RBC Hgb Hct MCH MCHC RDW Plt Count Lymph % (Auto) [place] % (Auto) [place] # Seg Neutrophils % Seg Neuts % (Manual) Lymphocytes % (Manual) Basophils % (Manual) Seg Neutrophils # Seg Neutrophils # Man Lymphocytes # (Manual) Monocytes # (Manual) Basophils # (Manual) POC ABG pH ABG pH POC ABG pCO2 POC ABG pO2 ABG pO2 ABG Base Excess ABG Hemoglobin Oxyhemoglobin Sodium Potassium Chloride Carbon Dioxide BUN Creatinine Glucose POC Glucose 131 H 143 H 191 H Hemoglobin A1c Calcium Phosphorus Magnesium AST Alkaline Phosphatase Total Protein Albumin Urine WBC (Auto) Urine Creatinine Urine Total Protein 06/03/17 06/03/17 06/03/17 04:14 04:14 05:06 WBC 21.1 H RBC Hgb Hct MCH 27 L MCHC RDW 15.9 H Plt Count 447 H Lymph % (Auto) [place] % (Auto) [place] # Seg Neutrophils % Seg Neuts % (Manual) 94.0 H Lymphocytes % (Manual) 3.0 L Basophils % (Manual) Seg Neutrophils # Seg Neutrophils # Man 19.8 H Lymphocytes # (Manual) 0.6 L Monocytes # (Manual) Basophils # (Manual) POC ABG pH ABG pH POC ABG pCO2 28.6 L POC ABG pO2 112 H ABG pO2 ABG Base Excess ABG Hemoglobin Oxyhemoglobin Sodium Potassium Chloride Carbon Dioxide 14 L BUN 45 H Creatinine 2.8 H Glucose 211 H POC Glucose Hemoglobin A1c Calcium 8.0 L Phosphorus Magnesium AST Alkaline Phosphatase Total Protein Albumin Urine WBC (Auto) Urine Creatinine Urine Total Protein 06/03/17 06/03/17 06/03/17 06:00 10:20 13:43 WBC RBC Hgb Hct MCH MCHC RDW Plt Count Lymph % (Auto) [place] % (Auto) [place] # Seg Neutrophils % Seg Neuts % (Manual) Lymphocytes % (Manual) Basophils % (Manual) Seg Neutrophils # Seg Neutrophils # Man Lymphocytes # (Manual) Monocytes # (Manual) Basophils # (Manual) POC ABG pH ABG pH POC ABG pCO2 POC ABG pO2 ABG pO2 ABG Base Excess ABG Hemoglobin Oxyhemoglobin Sodium Potassium Chloride Carbon Dioxide BUN Creatinine Glucose POC Glucose 224 H 226 H 296 H Hemoglobin A1c Calcium Phosphorus Magnesium AST Alkaline Phosphatase Total Protein Albumin Urine WBC (Auto) Urine Creatinine Urine Total Protein 06/03/17 06/03/17 06/03/17 17:38 19:23 20:45 WBC RBC Hgb Hct MCH MCHC RDW Plt Count Lymph % (Auto) [place] % (Auto) [place] # Seg Neutrophils % Seg Neuts % (Manual) Lymphocytes % (Manual) Basophils % (Manual) Seg Neutrophils # Seg Neutrophils # Man Lymphocytes # (Manual) Monocytes # (Manual) Basophils # (Manual) POC ABG pH ABG pH POC ABG pCO2 POC ABG pO2 ABG pO2 ABG Base Excess ABG Hemoglobin Oxyhemoglobin Sodium Potassium Chloride Carbon Dioxide BUN Creatinine Glucose POC Glucose 295 H 275 H 338 H Hemoglobin A1c Calcium Phosphorus Magnesium AST Alkaline Phosphatase Total Protein Albumin Urine WBC (Auto) Urine Creatinine Urine Total Protein 06/03/17 06/03/17 06/04/17 21:50 23:08 00:16 WBC RBC Hgb Hct MCH MCHC RDW Plt Count Lymph % (Auto) [place] % (Auto) [place] # Seg Neutrophils % Seg Neuts % (Manual) Lymphocytes % (Manual) Basophils % (Manual) Seg Neutrophils # Seg Neutrophils # Man Lymphocytes # (Manual) Monocytes # (Manual) Basophils # (Manual) POC ABG pH ABG pH POC ABG pCO2 POC ABG pO2 ABG pO2 ABG Base Excess ABG Hemoglobin Oxyhemoglobin Sodium Potassium Chloride Carbon Dioxide BUN Creatinine Glucose POC Glucose 223 H 214 H 226 H Hemoglobin A1c Calcium Phosphorus Magnesium AST Alkaline Phosphatase Total Protein Albumin Urine WBC (Auto) Urine Creatinine Urine Total Protein 06/04/17 06/04/17 06/04/17 01:05 02:07 03:27 WBC RBC Hgb Hct MCH MCHC RDW Plt Count Lymph % (Auto) [place] % (Auto) [place] # Seg Neutrophils % Seg Neuts % (Manual) Lymphocytes % (Manual) Basophils % (Manual) Seg Neutrophils # Seg Neutrophils # Man Lymphocytes # (Manual) Monocytes # (Manual) Basophils # (Manual) POC ABG pH ABG pH POC ABG pCO2 POC ABG pO2 ABG pO2 ABG Base Excess ABG Hemoglobin Oxyhemoglobin Sodium Potassium Chloride Carbon Dioxide BUN Creatinine Glucose POC Glucose 217 H 229 H 185 H Hemoglobin A1c Calcium Phosphorus Magnesium AST Alkaline Phosphatase Total Protein Albumin Urine WBC (Auto) Urine Creatinine Urine Total Protein 06/04/17 06/04/17 06/04/17 03:52 04:05 04:05 WBC 19.6 H RBC Hgb Hct MCH 26 L MCHC RDW 15.6 H Plt Count 564 H Lymph % (Auto) 7.3 L [place] % (Auto) 10.8 H [place] # 2.1 H Seg Neutrophils % 81.4 H Seg Neuts % (Manual) Lymphocytes % (Manual) Basophils % (Manual) Seg Neutrophils # 15.9 H Seg Neutrophils # Man Lymphocytes # (Manual) Monocytes # (Manual) Basophils # (Manual) POC ABG pH ABG pH POC ABG pCO2 POC ABG pO2 ABG pO2 ABG Base Excess ABG Hemoglobin Oxyhemoglobin Sodium Potassium Chloride Carbon Dioxide 17 L BUN 52 H Creatinine 2.5 H Glucose 163 H POC Glucose 181 H Hemoglobin A1c Calcium 7.9 L Phosphorus Magnesium AST Alkaline Phosphatase Total Protein Albumin Urine WBC (Auto) Urine Creatinine Urine Total Protein 06/04/17 06/04/17 06/04/17 04:56 05:39 06:12 WBC RBC Hgb Hct MCH MCHC RDW Plt Count Lymph % (Auto) [place] % (Auto) [place] # Seg Neutrophils % Seg Neuts % (Manual) Lymphocytes % (Manual) Basophils % (Manual) Seg Neutrophils # Seg Neutrophils # Man Lymphocytes # (Manual) Monocytes # (Manual) Basophils # (Manual) POC ABG pH 7.486 H ABG pH POC ABG pCO2 26.8 L POC ABG pO2 ABG pO2 ABG Base Excess ABG Hemoglobin Oxyhemoglobin Sodium Potassium Chloride Carbon Dioxide BUN Creatinine Glucose POC Glucose 208 H 225 H Hemoglobin A1c Calcium Phosphorus Magnesium AST Alkaline Phosphatase Total Protein Albumin Urine WBC (Auto) Urine Creatinine Urine Total Protein 06/04/17 06/04/17 06/04/17 07:07 08:06 09:15 WBC RBC Hgb Hct MCH MCHC RDW Plt Count Lymph % (Auto) [place] % (Auto) [place] # Seg Neutrophils % Seg Neuts % (Manual) Lymphocytes % (Manual) Basophils % (Manual) Seg Neutrophils # Seg Neutrophils # Man Lymphocytes # (Manual) Monocytes # (Manual) Basophils # (Manual) POC ABG pH ABG pH POC ABG pCO2 POC ABG pO2 ABG pO2 ABG Base Excess ABG Hemoglobin Oxyhemoglobin Sodium Potassium Chloride Carbon Dioxide BUN Creatinine Glucose POC Glucose 201 H 171 H 178 H Hemoglobin A1c Calcium Phosphorus Magnesium AST Alkaline Phosphatase Total Protein Albumin Urine WBC (Auto) Urine Creatinine Urine Total Protein 06/04/17 06/04/17 06/04/17 10:16 12:22 17:21 WBC RBC Hgb Hct MCH MCHC RDW Plt Count Lymph % (Auto) [place] % (Auto) [place] # Seg Neutrophils % Seg Neuts % (Manual) Lymphocytes % (Manual) Basophils % (Manual) Seg Neutrophils # Seg Neutrophils # Man Lymphocytes # (Manual) Monocytes # (Manual) Basophils # (Manual) POC ABG pH ABG pH POC ABG pCO2 POC ABG pO2 ABG pO2 ABG Base Excess ABG Hemoglobin Oxyhemoglobin Sodium Potassium Chloride Carbon Dioxide BUN Creatinine Glucose POC Glucose 191 H 188 H Hemoglobin A1c Calcium Phosphorus Magnesium AST Alkaline Phosphatase Total Protein Albumin Urine WBC (Auto) Urine Creatinine 78.7 H Urine Total Protein 197 H 06/04/17 06/04/17 06/05/17 17:56 22:10 00:00 WBC RBC Hgb Hct MCH MCHC RDW Plt Count Lymph % (Auto) [place] % (Auto) [place] # Seg Neutrophils % Seg Neuts % (Manual) Lymphocytes % (Manual) Basophils % (Manual) Seg Neutrophils # Seg Neutrophils # Man Lymphocytes # (Manual) Monocytes # (Manual) Basophils # (Manual) POC ABG pH ABG pH POC ABG pCO2 POC ABG pO2 ABG pO2 ABG Base Excess ABG Hemoglobin Oxyhemoglobin Sodium Potassium Chloride Carbon Dioxide 17 L BUN 55 H Creatinine 2.3 H Glucose 300 H POC Glucose 266 H 337 H Hemoglobin A1c Calcium 7.4 L Phosphorus Magnesium AST Alkaline Phosphatase Total Protein Albumin Urine WBC (Auto) Urine Creatinine Urine Total Protein 06/05/17 06/05/17 06/05/17 03:26 04:11 05:13 WBC RBC Hgb Hct MCH MCHC RDW Plt Count Lymph % (Auto) [place] % (Auto) [place] # Seg Neutrophils % Seg Neuts % (Manual) Lymphocytes % (Manual) Basophils % (Manual) Seg Neutrophils # Seg Neutrophils # Man Lymphocytes # (Manual) Monocytes # (Manual) Basophils # (Manual) POC ABG pH 7.586 H ABG pH POC ABG pCO2 22.6 L POC ABG pO2 179 H ABG pO2 ABG Base Excess ABG Hemoglobin Oxyhemoglobin Sodium Potassium Chloride Carbon Dioxide 19 L BUN 55 H Creatinine 2.2 H Glucose 226 H POC Glucose 220 H Hemoglobin A1c Calcium 7.7 L Phosphorus Magnesium AST Alkaline Phosphatase Total Protein Albumin Urine WBC (Auto) Urine Creatinine Urine Total Protein 06/05/17 06/05/17 06/05/17 12:42 18:24 21:23 WBC RBC Hgb Hct MCH MCHC RDW Plt Count Lymph % (Auto) [place] % (Auto) [place] # Seg Neutrophils % Seg Neuts % (Manual) Lymphocytes % (Manual) Basophils % (Manual) Seg Neutrophils # Seg Neutrophils # Man Lymphocytes # (Manual) Monocytes # (Manual) Basophils # (Manual) POC ABG pH ABG pH POC ABG pCO2 POC ABG pO2 ABG pO2 ABG Base Excess ABG Hemoglobin Oxyhemoglobin Sodium Potassium Chloride Carbon Dioxide BUN Creatinine Glucose POC Glucose 168 H 121 H 166 H Hemoglobin A1c Calcium Phosphorus Magnesium AST Alkaline Phosphatase Total Protein Albumin Urine WBC (Auto) Urine Creatinine Urine Total Protein 06/06/17 06/06/17 06/06/17 00:14 04:11 06:19 WBC RBC Hgb Hct MCH MCHC RDW Plt Count Lymph % (Auto) [place] % (Auto) [place] # Seg Neutrophils % Seg Neuts % (Manual) Lymphocytes % (Manual) Basophils % (Manual) Seg Neutrophils # Seg Neutrophils # Man Lymphocytes # (Manual) Monocytes # (Manual) Basophils # (Manual) POC ABG pH ABG pH POC ABG pCO2 33.0 L POC ABG pO2 ABG pO2 ABG Base Excess ABG Hemoglobin Oxyhemoglobin Sodium Potassium Chloride Carbon Dioxide BUN Creatinine Glucose POC Glucose 179 H 180 H Hemoglobin A1c Calcium Phosphorus Magnesium AST Alkaline Phosphatase Total Protein Albumin Urine WBC (Auto) Urine Creatinine Urine Total Protein 06/06/17 06/06/17 06/06/17 12:19 18:38 20:01 WBC RBC Hgb Hct MCH MCHC RDW Plt Count Lymph % (Auto) [place] % (Auto) [place] # Seg Neutrophils % Seg Neuts % (Manual) Lymphocytes % (Manual) Basophils % (Manual) Seg Neutrophils # Seg Neutrophils # Man Lymphocytes # (Manual) Monocytes # (Manual) Basophils # (Manual) POC ABG pH ABG pH POC ABG pCO2 POC ABG pO2 ABG pO2 ABG Base Excess ABG Hemoglobin Oxyhemoglobin Sodium Potassium Chloride Carbon Dioxide BUN Creatinine Glucose POC Glucose 123 H 56 L 65 L Hemoglobin A1c Calcium Phosphorus Magnesium AST Alkaline Phosphatase Total Protein Albumin Urine WBC (Auto) Urine Creatinine Urine Total Protein 06/06/17 06/07/17 06/07/17 23:51 04:25 05:29 WBC RBC Hgb Hct MCH MCHC RDW Plt Count Lymph % (Auto) [place] % (Auto) [place] # Seg Neutrophils % Seg Neuts % (Manual) Lymphocytes % (Manual) Basophils % (Manual) Seg Neutrophils # Seg Neutrophils # Man Lymphocytes # (Manual) Monocytes # (Manual) Basophils # (Manual) POC ABG pH 7.470 H ABG pH POC ABG pCO2 33.6 L POC ABG pO2 ABG pO2 ABG Base Excess ABG Hemoglobin Oxyhemoglobin Sodium Potassium Chloride Carbon Dioxide BUN Creatinine Glucose POC Glucose 118 H 183 H Hemoglobin A1c Calcium Phosphorus Magnesium AST Alkaline Phosphatase Total Protein Albumin Urine WBC (Auto) Urine Creatinine Urine Total Protein 06/07/17 06/07/17 06/07/17 07:51 12:00 18:08 WBC RBC Hgb Hct MCH MCHC RDW Plt Count Lymph % (Auto) [place] % (Auto) [place] # Seg Neutrophils % Seg Neuts % (Manual) Lymphocytes % (Manual) Basophils % (Manual) Seg Neutrophils # Seg Neutrophils # Man Lymphocytes # (Manual) Monocytes # (Manual) Basophils # (Manual) POC ABG pH ABG pH POC ABG pCO2 POC ABG pO2 ABG pO2 ABG Base Excess ABG Hemoglobin Oxyhemoglobin Sodium 135 L Potassium Chloride Carbon Dioxide 21 L BUN 50 H Creatinine 1.8 H Glucose 232 H POC Glucose 361 H 249 H Hemoglobin A1c Calcium 8.0 L Phosphorus Magnesium AST Alkaline Phosphatase Total Protein Albumin Urine WBC (Auto) Urine Creatinine Urine Total Protein 06/07/17 06/08/17 06/08/17 23:53 05:25 11:50 WBC RBC Hgb Hct MCH MCHC RDW Plt Count Lymph % (Auto) [place] % (Auto) [place] # Seg Neutrophils % Seg Neuts % (Manual) Lymphocytes % (Manual) Basophils % (Manual) Seg Neutrophils # Seg Neutrophils # Man Lymphocytes # (Manual) Monocytes # (Manual) Basophils # (Manual) POC ABG pH ABG pH POC ABG pCO2 POC ABG pO2 ABG pO2 ABG Base Excess ABG Hemoglobin Oxyhemoglobin Sodium Potassium Chloride Carbon Dioxide BUN Creatinine Glucose POC Glucose 190 H 136 H 166 H Hemoglobin A1c Calcium Phosphorus Magnesium AST Alkaline Phosphatase Total Protein Albumin Urine WBC (Auto) Urine Creatinine Urine Total Protein 06/08/17 06/08/17 06/08/17 14:20 14:20 19:05 WBC 15.7 H RBC 3.49 L Hgb 9.4 L Hct 27.9 L MCH 27 L MCHC RDW 15.3 H Plt Count 590 H Lymph % (Auto) [place] % (Auto) [place] # Seg Neutrophils % Seg Neuts % (Manual) Lymphocytes % (Manual) Basophils % (Manual) Seg Neutrophils # Seg Neutrophils # Man Lymphocytes # (Manual) Monocytes # (Manual) Basophils # (Manual) POC ABG pH ABG pH POC ABG pCO2 POC ABG pO2 ABG pO2 ABG Base Excess ABG Hemoglobin Oxyhemoglobin Sodium Potassium Chloride Carbon Dioxide BUN 55 H Creatinine 1.7 H Glucose 117 H POC Glucose 135 H Hemoglobin A1c Calcium Phosphorus Magnesium AST Alkaline Phosphatase Total Protein Albumin Urine WBC (Auto) Urine Creatinine Urine Total Protein 06/08/17 06/08/17 06/09/17 21:52 23:55 04:18 WBC RBC Hgb Hct MCH MCHC RDW Plt Count Lymph % (Auto) [place] % (Auto) [place] # Seg Neutrophils % Seg Neuts % (Manual) Lymphocytes % (Manual) Basophils % (Manual) Seg Neutrophils # Seg Neutrophils # Man Lymphocytes # (Manual) Monocytes # (Manual) Basophils # (Manual) POC ABG pH ABG pH POC ABG pCO2 POC ABG pO2 ABG pO2 ABG Base Excess ABG Hemoglobin Oxyhemoglobin Sodium Potassium Chloride Carbon Dioxide BUN 51 H Creatinine 1.6 H Glucose POC Glucose 186 H 209 H Hemoglobin A1c Calcium Phosphorus Magnesium AST Alkaline Phosphatase Total Protein Albumin Urine WBC (Auto) Urine Creatinine Urine Total Protein 06/09/17 06/09/17 06/09/17 09:56 12:42 18:09 WBC RBC Hgb Hct MCH MCHC RDW Plt Count Lymph % (Auto) [place] % (Auto) [place] # Seg Neutrophils % Seg Neuts % (Manual) Lymphocytes % (Manual) Basophils % (Manual) Seg Neutrophils # Seg Neutrophils # Man Lymphocytes # (Manual) Monocytes # (Manual) Basophils # (Manual) POC ABG pH ABG pH POC ABG pCO2 POC ABG pO2 ABG pO2 ABG Base Excess ABG Hemoglobin Oxyhemoglobin Sodium Potassium Chloride Carbon Dioxide BUN Creatinine Glucose POC Glucose 63 L 142 H 166 H Hemoglobin A1c Calcium Phosphorus Magnesium AST Alkaline Phosphatase Total Protein Albumin Urine WBC (Auto) Urine Creatinine Urine Total Protein 06/09/17 06/10/17 06/10/17 23:39 03:24 04:28 WBC 15.1 H RBC 2.99 L Hgb 8.1 L Hct 23.6 L MCH 27 L MCHC 35 H RDW 15.4 H Plt Count 500 H Lymph % (Auto) [place] % (Auto) [place] # Seg Neutrophils % Seg Neuts % (Manual) Lymphocytes % (Manual) Basophils % (Manual) Seg Neutrophils # Seg Neutrophils # Man Lymphocytes # (Manual) Monocytes # (Manual) Basophils # (Manual) POC ABG pH 7.461 H ABG pH POC ABG pCO2 POC ABG pO2 131 H ABG pO2 ABG Base Excess ABG Hemoglobin Oxyhemoglobin Sodium Potassium Chloride Carbon Dioxide BUN Creatinine Glucose POC Glucose 284 H Hemoglobin A1c Calcium Phosphorus Magnesium AST Alkaline Phosphatase Total Protein Albumin Urine WBC (Auto) Urine Creatinine Urine Total Protein 06/10/17 06/10/17 06/10/17 04:28 05:10 12:41 WBC RBC Hgb Hct MCH MCHC RDW Plt Count Lymph % (Auto) [place] % (Auto) [place] # Seg Neutrophils % Seg Neuts % (Manual) Lymphocytes % (Manual) Basophils % (Manual) Seg Neutrophils # Seg Neutrophils # Man Lymphocytes # (Manual) Monocytes # (Manual) Basophils # (Manual) POC ABG pH ABG pH POC ABG pCO2 POC ABG pO2 ABG pO2 ABG Base Excess ABG Hemoglobin Oxyhemoglobin Sodium Potassium Chloride Carbon Dioxide BUN 53 H Creatinine 1.8 H Glucose 185 H POC Glucose 190 H 50 L Hemoglobin A1c Calcium Phosphorus Magnesium AST Alkaline Phosphatase Total Protein Albumin Urine WBC (Auto) Urine Creatinine Urine Total Protein 06/10/17 06/10/17 06/11/17 14:35 18:31 00:09 WBC RBC Hgb Hct MCH MCHC RDW Plt Count Lymph % (Auto) [place] % (Auto) [place] # Seg Neutrophils % Seg Neuts % (Manual) Lymphocytes % (Manual) Basophils % (Manual) Seg Neutrophils # Seg Neutrophils # Man Lymphocytes # (Manual) Monocytes # (Manual) Basophils # (Manual) POC ABG pH ABG pH POC ABG pCO2 POC ABG pO2 ABG pO2 ABG Base Excess ABG Hemoglobin Oxyhemoglobin Sodium Potassium Chloride Carbon Dioxide BUN Creatinine Glucose POC Glucose 58 L 55 L 126 H Hemoglobin A1c Calcium Phosphorus Magnesium AST Alkaline Phosphatase Total Protein Albumin Urine WBC (Auto) Urine Creatinine Urine Total Protein 06/11/17 06/11/17 06/11/17 05:32 06:01 06:03 WBC 15.6 H RBC 3.03 L Hgb 8.3 L Hct 24.0 L MCH MCHC 35 H RDW Plt Count 492 H Lymph % (Auto) [place] % (Auto) [place] # Seg Neutrophils % Seg Neuts % (Manual) Lymphocytes % (Manual) Basophils % (Manual) Seg Neutrophils # Seg Neutrophils # Man Lymphocytes # (Manual) Monocytes # (Manual) Basophils # (Manual) POC ABG pH ABG pH POC ABG pCO2 POC ABG pO2 ABG pO2 ABG Base Excess ABG Hemoglobin Oxyhemoglobin Sodium Potassium Chloride Carbon Dioxide BUN 55 H Creatinine 1.8 H Glucose 228 H POC Glucose 219 H Hemoglobin A1c Calcium Phosphorus Magnesium AST Alkaline Phosphatase Total Protein Albumin Urine WBC (Auto) Urine Creatinine Urine Total Protein 06/11/17 06/11/17 06/12/17 11:53 18:31 04:24 WBC 17.4 H RBC 2.90 L Hgb 8.0 L Hct 23.0 L MCH MCHC 35 H RDW Plt Count 460 H Lymph % (Auto) [place] % (Auto) [place] # Seg Neutrophils % Seg Neuts % (Manual) Lymphocytes % (Manual) Basophils % (Manual) Seg Neutrophils # Seg Neutrophils # Man Lymphocytes # (Manual) Monocytes # (Manual) Basophils # (Manual) POC ABG pH ABG pH POC ABG pCO2 POC ABG pO2 ABG pO2 ABG Base Excess ABG Hemoglobin Oxyhemoglobin Sodium Potassium Chloride Carbon Dioxide BUN Creatinine Glucose POC Glucose 220 H 254 H Hemoglobin A1c Calcium Phosphorus Magnesium AST Alkaline Phosphatase Total Protein Albumin Urine WBC (Auto) Urine Creatinine Urine Total Protein 06/12/17 06/12/17 06/12/17 05:37 05:40 06:00 WBC RBC Hgb Hct MCH MCHC RDW Plt Count Lymph % (Auto) [place] % (Auto) [place] # Seg Neutrophils % Seg Neuts % (Manual) Lymphocytes % (Manual) Basophils % (Manual) Seg Neutrophils # Seg Neutrophils # Man Lymphocytes # (Manual) Monocytes # (Manual) Basophils # (Manual) POC ABG pH ABG pH POC ABG pCO2 POC ABG pO2 ABG pO2 ABG Base Excess ABG Hemoglobin Oxyhemoglobin Sodium Potassium Chloride Carbon Dioxide BUN Creatinine Glucose 41 L POC Glucose < 40 L < 40 L Hemoglobin A1c Calcium Phosphorus Magnesium AST Alkaline Phosphatase Total Protein Albumin Urine WBC (Auto) Urine Creatinine Urine Total Protein 06/12/17 06/12/17 06/12/17 07:09 07:51 10:06 WBC RBC Hgb Hct MCH MCHC RDW Plt Count Lymph % (Auto) [place] % (Auto) [place] # Seg Neutrophils % Seg Neuts % (Manual) Lymphocytes % (Manual) Basophils % (Manual) Seg Neutrophils # Seg Neutrophils # Man Lymphocytes # (Manual) Monocytes # (Manual) Basophils # (Manual) POC ABG pH ABG pH POC ABG pCO2 POC ABG pO2 ABG pO2 ABG Base Excess ABG Hemoglobin Oxyhemoglobin Sodium Potassium Chloride Carbon Dioxide BUN Creatinine Glucose POC Glucose 64 L 42 L 61 L Hemoglobin A1c Calcium Phosphorus Magnesium AST Alkaline Phosphatase Total Protein Albumin Urine WBC (Auto) Urine Creatinine Urine Total Protein 06/12/17 06/12/17 06/12/17 11:16 14:04 18:03 WBC RBC Hgb Hct MCH MCHC RDW Plt Count Lymph % (Auto) [place] % (Auto) [place] # Seg Neutrophils % Seg Neuts % (Manual) Lymphocytes % (Manual) Basophils % (Manual) Seg Neutrophils # Seg Neutrophils # Man Lymphocytes # (Manual) Monocytes # (Manual) Basophils # (Manual) POC ABG pH ABG pH POC ABG pCO2 POC ABG pO2 ABG pO2 ABG Base Excess ABG Hemoglobin Oxyhemoglobin Sodium Potassium Chloride Carbon Dioxide BUN Creatinine Glucose POC Glucose 67 L 112 H 116 H Hemoglobin A1c Calcium Phosphorus Magnesium AST Alkaline Phosphatase Total Protein Albumin Urine WBC (Auto) Urine Creatinine Urine Total Protein 06/12/17 06/12/17 06/12/17 19:30 20:34 21:01 WBC RBC Hgb Hct MCH MCHC RDW Plt Count Lymph % (Auto) [place] % (Auto) [place] # Seg Neutrophils % Seg Neuts % (Manual) Lymphocytes % (Manual) Basophils % (Manual) Seg Neutrophils # Seg Neutrophils # Man Lymphocytes # (Manual) Monocytes # (Manual) Basophils # (Manual) POC ABG pH ABG pH POC ABG pCO2 POC ABG pO2 ABG pO2 ABG Base Excess ABG Hemoglobin Oxyhemoglobin Sodium Potassium Chloride Carbon Dioxide BUN Creatinine Glucose POC Glucose 156 H 172 H 174 H Hemoglobin A1c Calcium Phosphorus Magnesium AST Alkaline Phosphatase Total Protein Albumin Urine WBC (Auto) Urine Creatinine Urine Total Protein 06/12/17 06/12/17 06/13/17 22:00 23:23 00:27 WBC RBC Hgb Hct MCH MCHC RDW Plt Count Lymph % (Auto) [place] % (Auto) [place] # Seg Neutrophils % Seg Neuts % (Manual) Lymphocytes % (Manual) Basophils % (Manual) Seg Neutrophils # Seg Neutrophils # Man Lymphocytes # (Manual) Monocytes # (Manual) Basophils # (Manual) POC ABG pH ABG pH POC ABG pCO2 POC ABG pO2 ABG pO2 ABG Base Excess ABG Hemoglobin Oxyhemoglobin Sodium Potassium Chloride Carbon Dioxide BUN Creatinine Glucose POC Glucose 240 H 286 H 182 H Hemoglobin A1c Calcium Phosphorus Magnesium AST Alkaline Phosphatase Total Protein Albumin Urine WBC (Auto) Urine Creatinine Urine Total Protein 06/13/17 06/13/17 06/13/17 01:28 02:10 03:15 WBC RBC Hgb Hct MCH MCHC RDW Plt Count Lymph % (Auto) [place] % (Auto) [place] # Seg Neutrophils % Seg Neuts % (Manual) Lymphocytes % (Manual) Basophils % (Manual) Seg Neutrophils # Seg Neutrophils # Man Lymphocytes # (Manual) Monocytes # (Manual) Basophils # (Manual) POC ABG pH ABG pH POC ABG pCO2 POC ABG pO2 ABG pO2 ABG Base Excess ABG Hemoglobin Oxyhemoglobin Sodium Potassium Chloride Carbon Dioxide BUN Creatinine Glucose POC Glucose 304 H 277 H 318 H Hemoglobin A1c Calcium Phosphorus Magnesium AST Alkaline Phosphatase Total Protein Albumin Urine WBC (Auto) Urine Creatinine Urine Total Protein 06/13/17 06/13/17 06/13/17 04:15 05:10 05:38 WBC RBC Hgb Hct MCH MCHC RDW Plt Count Lymph % (Auto) [place] % (Auto) [place] # Seg Neutrophils % Seg Neuts % (Manual) Lymphocytes % (Manual) Basophils % (Manual) Seg Neutrophils # Seg Neutrophils # Man Lymphocytes # (Manual) Monocytes # (Manual) Basophils # (Manual) POC ABG pH ABG pH POC ABG pCO2 POC ABG pO2 ABG pO2 ABG Base Excess ABG Hemoglobin Oxyhemoglobin Sodium Potassium Chloride Carbon Dioxide BUN Creatinine Glucose POC Glucose 294 H 275 H 315 H Hemoglobin A1c Calcium Phosphorus Magnesium AST Alkaline Phosphatase Total Protein Albumin Urine WBC (Auto) Urine Creatinine Urine Total Protein 06/13/17 06/13/17 06/13/17 06:21 12:02 16:52 WBC RBC Hgb Hct MCH MCHC RDW Plt Count Lymph % (Auto) [place] % (Auto) [place] # Seg Neutrophils % Seg Neuts % (Manual) Lymphocytes % (Manual) Basophils % (Manual) Seg Neutrophils # Seg Neutrophils # Man Lymphocytes # (Manual) Monocytes # (Manual) Basophils # (Manual) POC ABG pH ABG pH POC ABG pCO2 POC ABG pO2 ABG pO2 ABG Base Excess ABG Hemoglobin Oxyhemoglobin Sodium Potassium Chloride Carbon Dioxide BUN Creatinine Glucose POC Glucose 350 H 333 H 343 H Hemoglobin A1c Calcium Phosphorus Magnesium AST Alkaline Phosphatase Total Protein Albumin Urine WBC (Auto) Urine Creatinine Urine Total Protein 06/14/17 06/14/17 06/14/17 00:01 04:18 04:18 WBC 29.6 H RBC 2.81 L Hgb 7.8 L Hct 23.2 L MCH MCHC RDW 15.3 H Plt Count Lymph % (Auto) [place] % (Auto) [place] # Seg Neutrophils % Seg Neuts % (Manual) Lymphocytes % (Manual) Basophils % (Manual) Seg Neutrophils # Seg Neutrophils # Man Lymphocytes # (Manual) Monocytes # (Manual) Basophils # (Manual) POC ABG pH ABG pH POC ABG pCO2 POC ABG pO2 ABG pO2 ABG Base Excess ABG Hemoglobin Oxyhemoglobin Sodium Potassium Chloride Carbon Dioxide 20 L BUN 75 H Creatinine 2.2 H Glucose 364 H POC Glucose 297 H Hemoglobin A1c Calcium Phosphorus Magnesium AST Alkaline Phosphatase Total Protein Albumin Urine WBC (Auto) Urine Creatinine Urine Total Protein 06/14/17 06/14/17 06/14/17 05:10 08:25 11:46 WBC RBC Hgb Hct MCH MCHC RDW Plt Count Lymph % (Auto) [place] % (Auto) [place] # Seg Neutrophils % Seg Neuts % (Manual) Lymphocytes % (Manual) Basophils % (Manual) Seg Neutrophils # Seg Neutrophils # Man Lymphocytes # (Manual) Monocytes # (Manual) Basophils # (Manual) POC ABG pH ABG pH POC ABG pCO2 POC ABG pO2 ABG pO2 ABG Base Excess ABG Hemoglobin Oxyhemoglobin Sodium Potassium Chloride Carbon Dioxide BUN Creatinine Glucose POC Glucose 350 H 322 H 391 H Hemoglobin A1c Calcium Phosphorus Magnesium AST Alkaline Phosphatase Total Protein Albumin Urine WBC (Auto) Urine Creatinine Urine Total Protein 06/14/17 06/15/17 06/15/17 18:04 00:16 11:20 WBC RBC Hgb Hct MCH MCHC RDW Plt Count Lymph % (Auto) [place] % (Auto) [place] # Seg Neutrophils % Seg Neuts % (Manual) Lymphocytes % (Manual) Basophils % (Manual) Seg Neutrophils # Seg Neutrophils # Man Lymphocytes # (Manual) Monocytes # (Manual) Basophils # (Manual) POC ABG pH ABG pH POC ABG pCO2 POC ABG pO2 ABG pO2 ABG Base Excess ABG Hemoglobin Oxyhemoglobin Sodium Potassium Chloride Carbon Dioxide 21 L BUN 88 H Creatinine 2.7 H Glucose 302 H POC Glucose 384 H 435 H Hemoglobin A1c Calcium Phosphorus Magnesium AST Alkaline Phosphatase Total Protein Albumin Urine WBC (Auto) Urine Creatinine Urine Total Protein 06/15/17 06/15/17 06/15/17 11:47 17:35 21:33 WBC RBC Hgb Hct MCH MCHC RDW Plt Count Lymph % (Auto) [place] % (Auto) [place] # Seg Neutrophils % Seg Neuts % (Manual) Lymphocytes % (Manual) Basophils % (Manual) Seg Neutrophils # Seg Neutrophils # Man Lymphocytes # (Manual) Monocytes # (Manual) Basophils # (Manual) POC ABG pH ABG pH POC ABG pCO2 POC ABG pO2 ABG pO2 ABG Base Excess ABG Hemoglobin Oxyhemoglobin Sodium Potassium Chloride Carbon Dioxide BUN Creatinine Glucose POC Glucose 311 H 428 H 346 H Hemoglobin A1c Calcium Phosphorus Magnesium AST Alkaline Phosphatase Total Protein Albumin Urine WBC (Auto) Urine Creatinine Urine Total Protein 06/15/17 06/15/17 06/16/17 23:23 Unknown 05:36 WBC RBC Hgb Hct MCH MCHC RDW Plt Count Lymph % (Auto) [place] % (Auto) [place] # Seg Neutrophils % Seg Neuts % (Manual) Lymphocytes % (Manual) Basophils % (Manual) Seg Neutrophils # Seg Neutrophils # Man Lymphocytes # (Manual) Monocytes # (Manual) Basophils # (Manual) POC ABG pH ABG pH POC ABG pCO2 POC ABG pO2 ABG pO2 ABG Base Excess ABG Hemoglobin 10.1 L Oxyhemoglobin 94.9 L Sodium Potassium Chloride Carbon Dioxide BUN Creatinine Glucose POC Glucose 351 H 303 H Hemoglobin A1c Calcium Phosphorus Magnesium AST Alkaline Phosphatase Total Protein Albumin Urine WBC (Auto) Urine Creatinine Urine Total Protein 06/16/17 06/16/17 06/16/17 06:33 06:33 08:26 WBC 25.8 H RBC 2.68 L Hgb 7.2 L Hct 21.6 L MCH 27 L MCHC RDW 15.9 H Plt Count Lymph % (Auto) [place] % (Auto) [place] # Seg Neutrophils % Seg Neuts % (Manual) Lymphocytes % (Manual) Basophils % (Manual) Seg Neutrophils # Seg Neutrophils # Man Lymphocytes # (Manual) Monocytes # (Manual) Basophils # (Manual) POC ABG pH ABG pH POC ABG pCO2 POC ABG pO2 ABG pO2 ABG Base Excess ABG Hemoglobin Oxyhemoglobin Sodium Potassium Chloride Carbon Dioxide 21 L BUN 94 H Creatinine 2.7 H Glucose 280 H POC Glucose Hemoglobin A1c Calcium Phosphorus Magnesium AST Alkaline Phosphatase Total Protein Albumin Urine WBC (Auto) > 182.0 H Urine Creatinine Urine Total Protein 06/16/17 06/16/17 06/16/17 08:26 11:45 18:28 WBC RBC Hgb Hct MCH MCHC RDW Plt Count Lymph % (Auto) [place] % (Auto) [place] # Seg Neutrophils % Seg Neuts % (Manual) Lymphocytes % (Manual) Basophils % (Manual) Seg Neutrophils # Seg Neutrophils # Man Lymphocytes # (Manual) Monocytes # (Manual) Basophils # (Manual) POC ABG pH ABG pH POC ABG pCO2 POC ABG pO2 ABG pO2 ABG Base Excess ABG Hemoglobin Oxyhemoglobin Sodium Potassium Chloride Carbon Dioxide BUN Creatinine Glucose POC Glucose 263 H 175 H Hemoglobin A1c Calcium Phosphorus Magnesium AST Alkaline Phosphatase Total Protein Albumin Urine WBC (Auto) Urine Creatinine 119.9 H Urine Total Protein 295 H 06/16/17 06/17/17 06/17/17 23:36 03:51 04:04 WBC 28.1 H RBC 2.61 L Hgb 7.1 L Hct 21.5 L MCH 27 L MCHC RDW 15.8 H Plt Count Lymph % (Auto) [place] % (Auto) [place] # Seg Neutrophils % Seg Neuts % (Manual) 90.5 H Lymphocytes % (Manual) 2.0 L Basophils % (Manual) Seg Neutrophils # Seg Neutrophils # Man 25.4 H Lymphocytes # (Manual) 0.6 L Monocytes # (Manual) 1.5 H Basophils # (Manual) POC ABG pH ABG pH 7.483 H POC ABG pCO2 POC ABG pO2 ABG pO2 144.0 H ABG Base Excess -2.1 L ABG Hemoglobin 6.5 L Oxyhemoglobin Sodium Potassium Chloride Carbon Dioxide BUN Creatinine Glucose POC Glucose 152 H Hemoglobin A1c Calcium Phosphorus Magnesium AST Alkaline Phosphatase Total Protein Albumin Urine WBC (Auto) Urine Creatinine Urine Total Protein 06/17/17 06/17/17 06/17/17 04:04 05:34 09:34 WBC RBC Hgb Hct MCH MCHC RDW Plt Count Lymph % (Auto) [place] % (Auto) [place] # Seg Neutrophils % Seg Neuts % (Manual) Lymphocytes % (Manual) Basophils % (Manual) Seg Neutrophils # Seg Neutrophils # Man Lymphocytes # (Manual) Monocytes # (Manual) Basophils # (Manual) POC ABG pH ABG pH POC ABG pCO2 POC ABG pO2 ABG pO2 ABG Base Excess ABG Hemoglobin Oxyhemoglobin Sodium 136 L Potassium Chloride Carbon Dioxide 20 L BUN 97 H Creatinine 2.7 H Glucose 151 H POC Glucose 203 H 243 H Hemoglobin A1c Calcium Phosphorus Magnesium AST Alkaline Phosphatase Total Protein Albumin Urine WBC (Auto) Urine Creatinine Urine Total Protein 06/17/17 06/17/17 06/17/17 12:36 17:24 21:36 WBC RBC Hgb Hct MCH MCHC RDW Plt Count Lymph % (Auto) [place] % (Auto) [place] # Seg Neutrophils % Seg Neuts % (Manual) Lymphocytes % (Manual) Basophils % (Manual) Seg Neutrophils # Seg Neutrophils # Man Lymphocytes # (Manual) Monocytes # (Manual) Basophils # (Manual) POC ABG pH ABG pH POC ABG pCO2 POC ABG pO2 ABG pO2 ABG Base Excess ABG Hemoglobin Oxyhemoglobin Sodium Potassium Chloride Carbon Dioxide BUN Creatinine Glucose POC Glucose 214 H 131 H 175 H Hemoglobin A1c Calcium Phosphorus Magnesium AST Alkaline Phosphatase Total Protein Albumin Urine WBC (Auto) Urine Creatinine Urine Total Protein 06/18/17 06/18/17 06/18/17 00:14 04:55 10:57 WBC RBC Hgb Hct MCH MCHC RDW Plt Count Lymph % (Auto) [place] % (Auto) [place] # Seg Neutrophils % Seg Neuts % (Manual) Lymphocytes % (Manual) Basophils % (Manual) Seg Neutrophils # Seg Neutrophils # Man Lymphocytes # (Manual) Monocytes # (Manual) Basophils # (Manual) POC ABG pH ABG pH POC ABG pCO2 POC ABG pO2 ABG pO2 ABG Base Excess ABG Hemoglobin Oxyhemoglobin Sodium 134 L Potassium Chloride Carbon Dioxide 19 L BUN 107 H Creatinine 2.7 H Glucose 196 H POC Glucose 171 H 161 H Hemoglobin A1c Calcium Phosphorus Magnesium AST Alkaline Phosphatase Total Protein Albumin Urine WBC (Auto) Urine Creatinine Urine Total Protein 06/18/17 06/18/17 06/19/17 17:31 23:25 04:24 WBC 33.8 H RBC 2.46 L Hgb 6.7 L Hct 20.0 L MCH 27 L MCHC RDW 15.4 H Plt Count Lymph % (Auto) [place] % (Auto) [place] # Seg Neutrophils % Seg Neuts % (Manual) 91.0 H Lymphocytes % (Manual) 2.0 L Basophils % (Manual) Seg Neutrophils # Seg Neutrophils # Man 30.8 H Lymphocytes # (Manual) 0.7 L Monocytes # (Manual) 2.0 H Basophils # (Manual) POC ABG pH ABG pH POC ABG pCO2 POC ABG pO2 ABG pO2 ABG Base Excess ABG Hemoglobin Oxyhemoglobin Sodium Potassium Chloride Carbon Dioxide BUN Creatinine Glucose POC Glucose 241 H 303 H Hemoglobin A1c Calcium Phosphorus Magnesium AST Alkaline Phosphatase Total Protein Albumin Urine WBC (Auto) Urine Creatinine Urine Total Protein 06/19/17 06/19/17 04:24 05:19 WBC RBC Hgb Hct MCH MCHC RDW Plt Count Lymph % (Auto) [place] % (Auto) [place] # Seg Neutrophils % Seg Neuts % (Manual) Lymphocytes % (Manual) Basophils % (Manual) Seg Neutrophils # Seg Neutrophils # Man Lymphocytes # (Manual) Monocytes # (Manual) Basophils # (Manual) POC ABG pH ABG pH POC ABG pCO2 POC ABG pO2 ABG pO2 ABG Base Excess ABG Hemoglobin Oxyhemoglobin Sodium 135 L Potassium Chloride 97.2 L Carbon Dioxide 20 L BUN 116 H Creatinine 3.1 H Glucose 220 H POC Glucose 238 H Hemoglobin A1c Calcium Phosphorus Magnesium AST Alkaline Phosphatase Total Protein Albumin Urine WBC (Auto) Urine Creatinine Urine Total Protein
--- NOTE | 2017-06-19 16:41 | Progress Note ---
Assessment and Plan - Patient Problems (1) Acute renal failure with tubular necrosis Current Visit: Yes Status: Acute Plan to address problem: Non-Oliguric Acute renal failure/acute tubular necrosis. BUN rising out of proportion to Cr, with down trending Hb, to rule out GI bleed. transfuse for Hb < 7 cont lasix 40mg po qd. Supportive care for JERRI avoid nephrotoxins, NSAIDs, IV contrast. overall poor prognosis. discussed with patient's father who is leaning towards comfort care if no meaningful neurological recovery possible. Awaiting neurology input. Discussion about goals of care ongoing with family (2) Acute respiratory failure Current Visit: Yes Status: Acute Qualifiers: Respiratory failure complication: hypoxia Qualified Code(s): J96.01 - Acute respiratory failure with hypoxia Plan to address problem: Ventilator management by pulmonary/CCM. (3) Hyperosmolar non-ketotic state in patient with type 2 diabetes mellitus Current Visit: Yes Status: Acute Plan to address problem: Blood sugar management by primary attending (4) Proteinuria Current Visit: Yes Status: Chronic Plan to address problem: likely due to underlying diabetic nephropathy. ARAM-I contraindicated due to h/o allergy (5) Hypertension Current Visit: Yes Status: Acute Qualifiers: Hypertension type: essential hypertension Qualified Code(s): I10 - Essential (primary) hypertension Plan to address problem: Blood pressure stable. Follow blood pressure on current medications (6) Acute systolic heart failure Current Visit: Yes Status: Acute Plan to address problem: Continue beta jas. Continue spironolactone and monitor fluid balance. ARAM inhibitor/angiotensin receptor jas contraindicated due to her history of allergy. cont lasix 40mg po qd (7) Anemia in chronic illness Current Visit: Yes Status: Acute Plan to address problem: monitor Hb, transfuse with 1PRBC for Hb < 7, check stool guaiac (8) Sepsis Current Visit: Yes Status: Acute Plan to address problem: worsening leukocytosis, intermittent fever, BAL positive for klebsiella, cont ABXs as per CCM team for VAP/sepsis. dose renally adjusted. Subjective Date of service: 06/19/17 Principal diagnosis: coma Interval history: pt s/p trach/peg, on vent, remains unresponsive Objective - Vital Signs Vital signs: Vital Signs - 12hr 06/19/17 06/19/17 06/19/17 05:00 06:00 06:16 Temperature Pulse Rate 82 79 Respiratory 20 22 Rate Blood Pressure 122/66 109/60 109/60 O2 Sat by Pulse 99 100 Oximetry 06/19/17 06/19/17 06/19/17 06:18 07:00 08:00 Temperature 97.9 F Pulse Rate 81 84 Respiratory 21 21 Rate Blood Pressure 109/60 109/60 131/76 O2 Sat by Pulse 97 99 Oximetry 06/19/17 06/19/17 06/19/17 09:00 09:04 10:00 Temperature Pulse Rate 84 83 82 Respiratory 36 H 35 H 30 H Rate Blood Pressure 143/72 143/72 143/72 O2 Sat by Pulse 97 98 95 Oximetry 06/19/17 06/19/17 06/19/17 10:55 11:00 12:00 Temperature 97.6 F Pulse Rate 82 81 82 Respiratory 38 H Rate Blood Pressure 123/63 124/63 116/62 O2 Sat by Pulse 96 97 Oximetry 06/19/17 06/19/17 06/19/17 13:00 14:00 14:49 Temperature Pulse Rate 82 80 80 Respiratory 25 H 26 H Rate Blood Pressure 124/65 120/70 120/70 O2 Sat by Pulse 97 97 Oximetry 06/19/17 15:00 Temperature Pulse Rate 78 Respiratory 22 Rate Blood Pressure 124/65 O2 Sat by Pulse 97 Oximetry - General Appearance General appearance: well-developed, appears stated age, chronically ill, intubated, comatose EENT: ATNC, PERRL, mucous membranes moist Neck: no JVD Respiratory: Present: Other (coarse breath sounds bilaterally ) Cardiology: regular, S1S2 Gastrointestinal: normoactive bowel sounds Integumentary: no rash, other (+ edema b/l LE ) - Lab 06/19/17 04:24 06/19/17 04:24 Most recent lab results ABG pH 7.483 pH Units (7.350-7.450) H 06/17/17 03:51 ABG pCO2 28.7 mm Hg 06/17/17 03:51 ABG pO2 144.0 mm Hg (80.0-90.0) H 06/17/17 03:51 ABG HCO3 21.1 mmol/L (20.0-26.0) 06/17/17 03:51 ABG O2 Saturation 98.9 % (95.0-99.0) 06/17/17 03:51 Calcium 8.8 mg/dL (8.4-10.2) 06/19/17 04:24 Phosphorus 4.40 mg/dL (2.5-4.5) 06/07/17 07:51 Magnesium 1.70 mg/dL (1.7-2.3) 06/07/17 07:51 Urine Creatinine 119.9 mg/dL (0.1-20.0) H 06/16/17 08:26 Urine Sodium 39 mmol/L 06/16/17 08:26 Urine Total Protein 295 mg/dL (5-11.8) H 06/16/17 08:26
--- NOTE | 2017-06-19 18:06 | Progress Note ---
Assessment and Plan /Acute hypoxic respiratory failure -was intubated, on mechanical ventilation>96hrs, now tracheostomy to ventilator -Had PEG and Trach, 06/11/17 - s/p bronch on 05/17 showed Right upper lobe atelectasis, respiratory failure partial mucous plugging right upper lobe - BAL positive for Klebsiella pneumoniae, sensitive to cefepime /Sepsis, with leukocytosis, tachycardia tachypnea - Pneumonia versus UTI versus atelectasis - Continue antibiotics for now, /PNA with sepsis - Placed on cefepime, also continue vancomycin as white count trending up /Status post cardiac arrest - Cardiology following - EF 15-20% /Acute encephalopathy with anoxic hypoxic brain injury -Continue supportive care - discussion with family in progress for comfort care - Neurology following the patient and recommended a DO NOT RESUSCITATE followed by comfort care /Seizure disorder-complex partial - Patient is on IV Keppra -Neurology following Cardiomyopathy -Cardiology following, continue aspirin, statin, beta jas, Lasix and spironolactone Hyperosmolar hyperglycemic syndrome in Diabetes mellitus type 2. This had resolved - She was on Insulin drip, now on subcut Insulin - Insulin dose increased to 25 Units bid because of hyperglycemia /Hypoglycemia.episodes, Now resolved /Acute kidney injury. -Creatinine 3.1 today - Nephrology following /Hypertension. BP stable with beta jas, hydralazine, Imdur, Lasix and spironolactone /DVT prophylaxis with Lovenox /Disposition - Continue ICU care. poor prognosis - may need LTAC placement POOR PROGNOSIS Brief history: Patient had 36-year-old -Serbian female was admitted to the floor for seizure episode, altered mental status, acute hypoxic respiratory failure, patient was intubated in the emergency department patient had PEA and resuscitated successfully. She was placed on trach and PEG tube on 06/11/17. Hospitalist Physical Gen appearance:Not in acute distress, lying in bed, obese HEENT: facial edema, Neck:supple, no JVD, Tracheostomy Lungs: Coarse breath sounds bilaterally, no wheeze Heart: S1 and S2 regular, no murmurs, rubs or gallop Abdomen: soft, non tender, non distended, normal bowel sounds, PEG tube present Ext: Edema both upper and lower extremities, no cyanosis,anasarca Neuro: Unresponsive Subjective Date of service: 06/19/17 Principal diagnosis: coma Interval history: pt seen and examined Unresponsive, No fever PEG and Trach done 06/11 s/p bronch on 05/17 The WBC count trending up, hemoglobin 6.7 today Objective - Constitutional Vitals: Vital Signs - 12hr 06/19/17 06/19/17 06/19/17 06:16 06:18 07:00 Temperature Pulse Rate 81 Respiratory 21 Rate Blood Pressure 109/60 109/60 109/60 O2 Sat by Pulse 97 Oximetry 06/19/17 06/19/17 06/19/17 08:00 09:00 09:04 Temperature 97.9 F Pulse Rate 84 84 83 Respiratory 21 36 H 35 H Rate Blood Pressure 131/76 143/72 143/72 O2 Sat by Pulse 99 97 98 Oximetry 06/19/17 06/19/17 06/19/17 10:00 10:55 11:00 Temperature Pulse Rate 82 82 81 Respiratory 30 H 38 H Rate Blood Pressure 143/72 123/63 124/63 O2 Sat by Pulse 95 96 Oximetry 06/19/17 06/19/17 06/19/17 12:00 13:00 14:00 Temperature 97.6 F Pulse Rate 82 82 80 Respiratory 25 H 26 H Rate Blood Pressure 116/62 124/65 120/70 O2 Sat by Pulse 97 97 97 Oximetry 06/19/17 06/19/17 06/19/17 14:49 15:00 16:00 Temperature 97.7 F Pulse Rate 80 78 79 Respiratory 22 21 Rate Blood Pressure 120/70 124/65 129/77 O2 Sat by Pulse 97 96 Oximetry 06/19/17 17:00 Temperature Pulse Rate 80 Respiratory 23 Rate Blood Pressure 140/81 O2 Sat by Pulse 97 Oximetry - Labs CBC & Chem 7: 06/20/17 04:34 06/20/17 04:34 Labs: Abnormal lab results 06/18/17 06/18/17 06/19/17 Range/Units 17:31 23:25 04:24 WBC 33.8 H (4.5-11.0) K/mm3 RBC 2.46 L (3.65-5.03) M/mm3 Hgb 6.7 L (10.1-14.3) gm/dl Hct 20.0 L (30.3-42.9) % MCH 27 L (28-32) pg RDW 15.4 H (13.2-15.2) % Seg Neuts % (Manual) 91.0 H (40.0-70.0) % Lymphocytes % (Manual) 2.0 L (13.4-35.0) % Seg Neutrophils # Man 30.8 H (1.8-7.7) K/mm3 Lymphocytes # (Manual) 0.7 L (1.2-5.4) K/mm3 Monocytes # (Manual) 2.0 H (0.0-0.8) K/mm3 Sodium (137-145) mmol/L Chloride (98-107) mmol/L Carbon Dioxide (22-30) mmol/L BUN (7-17) mg/dL Creatinine (0.7-1.2) mg/dL Glucose (65-100) mg/dL POC Glucose 241 H 303 H (70-105) Crossmatch 06/19/17 06/19/17 06/19/17 Range/Units 04:24 05:19 16:50 WBC (4.5-11.0) K/mm3 RBC (3.65-5.03) M/mm3 Hgb (10.1-14.3) gm/dl Hct (30.3-42.9) % MCH (28-32) pg RDW (13.2-15.2) % Seg Neuts % (Manual) (40.0-70.0) % Lymphocytes % (Manual) (13.4-35.0) % Seg Neutrophils # Man (1.8-7.7) K/mm3 Lymphocytes # (Manual) (1.2-5.4) K/mm3 Monocytes # (Manual) (0.0-0.8) K/mm3 Sodium 135 L (137-145) mmol/L Chloride 97.2 L (98-107) mmol/L Carbon Dioxide 20 L (22-30) mmol/L BUN 116 H (7-17) mg/dL Creatinine 3.1 H (0.7-1.2) mg/dL Glucose 220 H (65-100) mg/dL POC Glucose 238 H (70-105) Crossmatch See Detail
[2017-06-19] MEDS ORDERED: SODIUM BICARBONATE IV ONE (19:40)
--- NOTE | 2017-06-19 23:10 | Progress Note ---
Assessment and Plan Impression: 1. Hypoxic ischemic encephalopathy 2. Generalized tonic clonic seizure, single episode Plan: 1. Will stop Ambien. Unlikely to improve from stopping it though, I explained. 2. Again explained that her lack of normal motor responses lack of being his commands meant even at 72 hours that she is not going to wake up. I therefore again suggested they consider as a first step making her a DO NOT RESUSCITATE and later considering withdrawal of support. 25 minutes critical care time spent with this patient. Will sign off. Call for any questions. Dr. Sy I believe returns Thursday. Subjective Date of service: 06/19/17 Principal diagnosis: coma Interval history: HPI: This 36-year-old -[place] female is seen again in follow-up for coma following cardiac arrest following a seizure. She has not responded to Ambien. Objective - Exam Narrative Exam: Gen. appearance: Well-developed but obese (per BMI) mid 30s -[place] female in NAD, status post tracheotomy, with parents and others at bedside. Neurologic Exam: Mental Status: Does not obey commands or respond to voice or pain though keeps eyes open. Cranial Nerves: No blink to threat, right pupil 2 mm and left 3 mm both reacting to light, roving eye movements and at least partially positive doll's eyes, positive corneals right>left, no grimace to supraorbital pressure, coughs to tracheal suctioning but cannot reach back of throat with suction to check gags, will not protrude tongue to command. Cerebellar: Cannot assess. Motor Exam Upper Extremities: Decerebrate right arm with slight adduction of left arm to supraorbital pressure. No withdrawal to nail bed pressure or palmar rub. Motor Exam Lower Extremities: Decerebrate right leg to supraorbital pressure. No withdrawal to nail bed pressure or plantar rub. - Vital Sign Vital Signs - 12hr 06/19/17 06/19/17 06/19/17 12:00 13:00 14:00 Temperature 97.6 F Pulse Rate 82 82 80 Respiratory 25 H 26 H Rate Blood Pressure 116/62 124/65 120/70 O2 Sat by Pulse 97 97 97 Oximetry O2 Sat by Pulse Oximetry [ Assessment] 06/19/17 06/19/17 06/19/17 14:49 15:00 16:00 Temperature 97.7 F Pulse Rate 80 78 79 Respiratory 22 21 Rate Blood Pressure 120/70 124/65 129/77 O2 Sat by Pulse 97 96 Oximetry O2 Sat by Pulse Oximetry [ Assessment] 06/19/17 06/19/17 06/19/17 17:00 18:00 19:00 Temperature Pulse Rate 80 80 77 Respiratory 23 27 H 26 H Rate Blood Pressure 140/81 136/79 133/73 O2 Sat by Pulse 97 98 92 Oximetry O2 Sat by Pulse Oximetry [ Assessment] 06/19/17 06/19/17 06/19/17 19:25 20:00 20:01 Temperature 97.9 F Pulse Rate 77 77 77 Respiratory 17 21 Rate Blood Pressure 133/73 135/76 O2 Sat by Pulse 97 100 97 Oximetry O2 Sat by Pulse 100 Oximetry [ Assessment] 06/19/17 06/19/17 06/19/17 21:01 22:00 22:33 Temperature Pulse Rate 77 78 77 Respiratory 22 25 H Rate Blood Pressure 121/68 129/72 129/72 O2 Sat by Pulse 98 98 Oximetry O2 Sat by Pulse Oximetry [ Assessment] 06/19/17 06/19/17 22:34 22:40 Temperature Pulse Rate 77 77 Respiratory 17 Rate Blood Pressure 129/72 O2 Sat by Pulse 100 Oximetry O2 Sat by Pulse Oximetry [ Assessment] - Laboratory Findings CBC and BMP: 06/19/17 04:24 06/19/17 04:24 Abnormal Lab Findings: Abnormal Labs 05/30/17 05/30/17 05/30/17 07:48 07:48 08:32 WBC 11.5 H RBC Hgb Hct MCH 27 L MCHC RDW 16.3 H Plt Count Lymph % (Auto) Hunt % (Auto) Hunt # Seg Neutrophils % Seg Neuts % (Manual) Lymphocytes % (Manual) Basophils % (Manual) Seg Neutrophils # Seg Neutrophils # Man Lymphocytes # (Manual) Monocytes # (Manual) Basophils # (Manual) POC ABG pH ABG pH POC ABG pCO2 POC ABG pO2 ABG pO2 ABG Base Excess ABG Hemoglobin Oxyhemoglobin Sodium 133 L Potassium Chloride 89.9 L Carbon Dioxide BUN 27 H Creatinine 2.0 H Glucose 741 H* POC Glucose > 500 H Hemoglobin A1c Calcium Phosphorus Magnesium AST Alkaline Phosphatase Total Protein Albumin Urine WBC (Auto) Urine Creatinine Urine Total Protein Crossmatch 05/30/17 05/30/17 05/30/17 08:59 08:59 16:08 WBC 14.5 H RBC Hgb Hct MCH MCHC RDW 16.0 H Plt Count Lymph % (Auto) Hunt % (Auto) Hunt # Seg Neutrophils % Seg Neuts % (Manual) 95.0 H Lymphocytes % (Manual) 2.0 L Basophils % (Manual) 2.0 H Seg Neutrophils # Seg Neutrophils # Man 13.8 H Lymphocytes # (Manual) 0.3 L Monocytes # (Manual) Basophils # (Manual) 0.3 H POC ABG pH ABG pH POC ABG pCO2 POC ABG pO2 ABG pO2 ABG Base Excess ABG Hemoglobin Oxyhemoglobin Sodium 134 L 135 L Potassium 3.2 L Chloride 90.8 L 93.6 L Carbon Dioxide BUN 28 H 30 H Creatinine 2.0 H 2.1 H Glucose 742 H* 567 H* POC Glucose Hemoglobin A1c Calcium Phosphorus Magnesium AST Alkaline Phosphatase 246 H Total Protein 5.6 L Albumin 2.9 L Urine WBC (Auto) Urine Creatinine Urine Total Protein Crossmatch 05/30/17 05/30/17 05/30/17 16:35 17:55 18:59 WBC RBC Hgb Hct MCH MCHC RDW Plt Count Lymph % (Auto) Hunt % (Auto) Hunt # Seg Neutrophils % Seg Neuts % (Manual) Lymphocytes % (Manual) Basophils % (Manual) Seg Neutrophils # Seg Neutrophils # Man Lymphocytes # (Manual) Monocytes # (Manual) Basophils # (Manual) POC ABG pH 7.544 H ABG pH POC ABG pCO2 32.0 L POC ABG pO2 155 H ABG pO2 ABG Base Excess ABG Hemoglobin Oxyhemoglobin Sodium Potassium 3.1 L Chloride 93.9 L Carbon Dioxide BUN 30 H Creatinine 2.0 H Glucose 561 H* POC Glucose 497 H Hemoglobin A1c Calcium Phosphorus Magnesium AST Alkaline Phosphatase Total Protein Albumin Urine WBC (Auto) Urine Creatinine Urine Total Protein Crossmatch 05/30/17 05/30/17 05/30/17 19:31 19:31 21:38 WBC RBC Hgb Hct MCH MCHC RDW Plt Count Lymph % (Auto) Hunt % (Auto) Hunt # Seg Neutrophils % Seg Neuts % (Manual) Lymphocytes % (Manual) Basophils % (Manual) Seg Neutrophils # Seg Neutrophils # Man Lymphocytes # (Manual) Monocytes # (Manual) Basophils # (Manual) POC ABG pH ABG pH POC ABG pCO2 POC ABG pO2 ABG pO2 ABG Base Excess ABG Hemoglobin Oxyhemoglobin Sodium 135 L Potassium 2.9 L* Chloride 93.8 L 95.4 L Carbon Dioxide 20 L BUN 29 H 30 H Creatinine 2.2 H 2.3 H Glucose 478 H 364 H POC Glucose Hemoglobin A1c Calcium Phosphorus 2.20 L D Magnesium 1.40 L AST 42 H Alkaline Phosphatase 177 H Total Protein 5.4 L Albumin 2.4 L Urine WBC (Auto) Urine Creatinine Urine Total Protein Crossmatch 05/30/17 05/31/17 05/31/17 23:06 02:17 05:27 WBC RBC Hgb Hct MCH MCHC RDW Plt Count Lymph % (Auto) Hunt % (Auto) Hunt # Seg Neutrophils % Seg Neuts % (Manual) Lymphocytes % (Manual) Basophils % (Manual) Seg Neutrophils # Seg Neutrophils # Man Lymphocytes # (Manual) Monocytes # (Manual) Basophils # (Manual) POC ABG pH 7.489 H ABG pH POC ABG pCO2 POC ABG pO2 ABG pO2 ABG Base Excess ABG Hemoglobin Oxyhemoglobin Sodium Potassium 3.2 L 3.5 L Chloride Carbon Dioxide BUN 30 H 31 H Creatinine 2.5 H 2.4 H Glucose 288 H 246 H POC Glucose Hemoglobin A1c Calcium 8.3 L Phosphorus Magnesium AST Alkaline Phosphatase Total Protein Albumin Urine WBC (Auto) Urine Creatinine Urine Total Protein Crossmatch 05/31/17 05/31/17 05/31/17 05:45 05:45 05:45 WBC RBC Hgb Hct MCH MCHC RDW Plt Count Lymph % (Auto) Hunt % (Auto) Hunt # Seg Neutrophils % Seg Neuts % (Manual) Lymphocytes % (Manual) Basophils % (Manual) Seg Neutrophils # Seg Neutrophils # Man Lymphocytes # (Manual) Monocytes # (Manual) Basophils # (Manual) POC ABG pH ABG pH POC ABG pCO2 POC ABG pO2 ABG pO2 ABG Base Excess ABG Hemoglobin Oxyhemoglobin Sodium Potassium Chloride Carbon Dioxide BUN 32 H 30 H Creatinine 2.5 H 2.6 H Glucose 266 H 271 H POC Glucose Hemoglobin A1c 9.7 H Calcium 8.3 L 8.2 L Phosphorus Magnesium AST Alkaline Phosphatase 145 H Total Protein 4.7 L Albumin 1.8 L Urine WBC (Auto) Urine Creatinine Urine Total Protein Crossmatch 05/31/17 05/31/17 05/31/17 08:18 09:20 12:18 WBC RBC Hgb Hct MCH MCHC RDW Plt Count Lymph % (Auto) Hunt % (Auto) Hunt # Seg Neutrophils % Seg Neuts % (Manual) Lymphocytes % (Manual) Basophils % (Manual) Seg Neutrophils # Seg Neutrophils # Man Lymphocytes # (Manual) Monocytes # (Manual) Basophils # (Manual) POC ABG pH ABG pH POC ABG pCO2 POC ABG pO2 ABG pO2 ABG Base Excess ABG Hemoglobin Oxyhemoglobin Sodium Potassium Chloride Carbon Dioxide BUN Creatinine Glucose POC Glucose 300 H 254 H 170 H Hemoglobin A1c Calcium Phosphorus Magnesium AST Alkaline Phosphatase Total Protein Albumin Urine WBC (Auto) Urine Creatinine Urine Total Protein Crossmatch 05/31/17 05/31/17 05/31/17 14:09 14:17 14:27 WBC RBC Hgb Hct MCH MCHC RDW Plt Count Lymph % (Auto) Hunt % (Auto) Hunt # Seg Neutrophils % Seg Neuts % (Manual) Lymphocytes % (Manual) Basophils % (Manual) Seg Neutrophils # Seg Neutrophils # Man Lymphocytes # (Manual) Monocytes # (Manual) Basophils # (Manual) POC ABG pH ABG pH POC ABG pCO2 POC ABG pO2 ABG pO2 ABG Base Excess ABG Hemoglobin Oxyhemoglobin Sodium Potassium 3.4 L Chloride 107.1 H Carbon Dioxide BUN 30 H Creatinine 2.6 H Glucose 38 L* POC Glucose < 40 L 189 H Hemoglobin A1c Calcium 7.6 L Phosphorus Magnesium AST Alkaline Phosphatase Total Protein Albumin Urine WBC (Auto) Urine Creatinine Urine Total Protein Crossmatch 05/31/17 05/31/17 05/31/17 15:01 16:01 17:19 WBC RBC Hgb Hct MCH MCHC RDW Plt Count Lymph % (Auto) Hunt % (Auto) Hunt # Seg Neutrophils % Seg Neuts % (Manual) Lymphocytes % (Manual) Basophils % (Manual) Seg Neutrophils # Seg Neutrophils # Man Lymphocytes # (Manual) Monocytes # (Manual) Basophils # (Manual) POC ABG pH ABG pH POC ABG pCO2 POC ABG pO2 ABG pO2 ABG Base Excess ABG Hemoglobin Oxyhemoglobin Sodium Potassium Chloride Carbon Dioxide BUN Creatinine Glucose POC Glucose 130 H 165 H 131 H Hemoglobin A1c Calcium Phosphorus Magnesium AST Alkaline Phosphatase Total Protein Albumin Urine WBC (Auto) Urine Creatinine Urine Total Protein Crossmatch 05/31/17 05/31/17 05/31/17 18:46 19:54 20:36 WBC RBC Hgb Hct MCH MCHC RDW Plt Count Lymph % (Auto) Hunt % (Auto) Hunt # Seg Neutrophils % Seg Neuts % (Manual) Lymphocytes % (Manual) Basophils % (Manual) Seg Neutrophils # Seg Neutrophils # Man Lymphocytes # (Manual) Monocytes # (Manual) Basophils # (Manual) POC ABG pH ABG pH POC ABG pCO2 POC ABG pO2 ABG pO2 ABG Base Excess ABG Hemoglobin Oxyhemoglobin Sodium Potassium Chloride Carbon Dioxide BUN 29 H Creatinine 2.4 H Glucose 124 H POC Glucose 128 H 157 H Hemoglobin A1c Calcium 7.9 L Phosphorus Magnesium AST Alkaline Phosphatase Total Protein Albumin Urine WBC (Auto) Urine Creatinine Urine Total Protein Crossmatch 05/31/17 06/01/17 06/01/17 21:41 03:22 04:06 WBC RBC Hgb Hct MCH MCHC RDW Plt Count Lymph % (Auto) Hunt % (Auto) Hunt # Seg Neutrophils % Seg Neuts % (Manual) Lymphocytes % (Manual) Basophils % (Manual) Seg Neutrophils # Seg Neutrophils # Man Lymphocytes # (Manual) Monocytes # (Manual) Basophils # (Manual) POC ABG pH ABG pH POC ABG pCO2 POC ABG pO2 ABG pO2 ABG Base Excess ABG Hemoglobin Oxyhemoglobin Sodium Potassium Chloride Carbon Dioxide 19 L BUN 29 H Creatinine 2.6 H Glucose 205 H POC Glucose 158 H 251 H Hemoglobin A1c Calcium 7.8 L Phosphorus Magnesium AST Alkaline Phosphatase Total Protein Albumin Urine WBC (Auto) Urine Creatinine Urine Total Protein Crossmatch 06/01/17 06/01/17 06/01/17 04:30 09:15 09:59 WBC 19.7 H RBC Hgb 10.0 L Hct MCH 27 L MCHC RDW 17.1 H Plt Count Lymph % (Auto) Hunt % (Auto) Hunt # Seg Neutrophils % Seg Neuts % (Manual) Lymphocytes % (Manual) Basophils % (Manual) Seg Neutrophils # Seg Neutrophils # Man Lymphocytes # (Manual) Monocytes # (Manual) Basophils # (Manual) POC ABG pH 7.464 H ABG pH POC ABG pCO2 31.3 L POC ABG pO2 ABG pO2 ABG Base Excess ABG Hemoglobin Oxyhemoglobin Sodium Potassium Chloride Carbon Dioxide BUN Creatinine Glucose POC Glucose 330 H Hemoglobin A1c Calcium Phosphorus Magnesium AST Alkaline Phosphatase Total Protein Albumin Urine WBC (Auto) Urine Creatinine Urine Total Protein Crossmatch 06/01/17 06/01/17 06/01/17 11:36 12:25 13:43 WBC RBC Hgb Hct MCH MCHC RDW Plt Count Lymph % (Auto) Hunt % (Auto) Hunt # Seg Neutrophils % Seg Neuts % (Manual) Lymphocytes % (Manual) Basophils % (Manual) Seg Neutrophils # Seg Neutrophils # Man Lymphocytes # (Manual) Monocytes # (Manual) Basophils # (Manual) POC ABG pH ABG pH POC ABG pCO2 POC ABG pO2 ABG pO2 ABG Base Excess ABG Hemoglobin Oxyhemoglobin Sodium Potassium Chloride Carbon Dioxide BUN Creatinine Glucose POC Glucose 431 H 434 H 445 H Hemoglobin A1c Calcium Phosphorus Magnesium AST Alkaline Phosphatase Total Protein Albumin Urine WBC (Auto) Urine Creatinine Urine Total Protein Crossmatch 06/01/17 06/01/17 06/01/17 14:26 15:46 16:03 WBC RBC Hgb Hct MCH MCHC RDW Plt Count Lymph % (Auto) Hunt % (Auto) Hunt # Seg Neutrophils % Seg Neuts % (Manual) Lymphocytes % (Manual) Basophils % (Manual) Seg Neutrophils # Seg Neutrophils # Man Lymphocytes # (Manual) Monocytes # (Manual) Basophils # (Manual) POC ABG pH ABG pH POC ABG pCO2 POC ABG pO2 ABG pO2 ABG Base Excess ABG Hemoglobin Oxyhemoglobin Sodium Potassium Chloride Carbon Dioxide BUN Creatinine Glucose POC Glucose 310 H 292 H 244 H Hemoglobin A1c Calcium Phosphorus Magnesium AST Alkaline Phosphatase Total Protein Albumin Urine WBC (Auto) Urine Creatinine Urine Total Protein Crossmatch 06/01/17 06/01/17 06/01/17 16:59 17:49 19:05 WBC RBC Hgb Hct MCH MCHC RDW Plt Count Lymph % (Auto) Hunt % (Auto) Hunt # Seg Neutrophils % Seg Neuts % (Manual) Lymphocytes % (Manual) Basophils % (Manual) Seg Neutrophils # Seg Neutrophils # Man Lymphocytes # (Manual) Monocytes # (Manual) Basophils # (Manual) POC ABG pH ABG pH POC ABG pCO2 POC ABG pO2 ABG pO2 ABG Base Excess ABG Hemoglobin Oxyhemoglobin Sodium Potassium Chloride Carbon Dioxide BUN Creatinine Glucose POC Glucose 260 H 203 H 156 H Hemoglobin A1c Calcium Phosphorus Magnesium AST Alkaline Phosphatase Total Protein Albumin Urine WBC (Auto) Urine Creatinine Urine Total Protein Crossmatch 06/02/17 06/02/17 06/02/17 00:09 01:06 02:31 WBC RBC Hgb Hct MCH MCHC RDW Plt Count Lymph % (Auto) Hunt % (Auto) Hunt # Seg Neutrophils % Seg Neuts % (Manual) Lymphocytes % (Manual) Basophils % (Manual) Seg Neutrophils # Seg Neutrophils # Man Lymphocytes # (Manual) Monocytes # (Manual) Basophils # (Manual) POC ABG pH ABG pH POC ABG pCO2 POC ABG pO2 ABG pO2 ABG Base Excess ABG Hemoglobin Oxyhemoglobin Sodium Potassium Chloride Carbon Dioxide BUN Creatinine Glucose POC Glucose 137 H 146 H 182 H Hemoglobin A1c Calcium Phosphorus Magnesium AST Alkaline Phosphatase Total Protein Albumin Urine WBC (Auto) Urine Creatinine Urine Total Protein Crossmatch 06/02/17 06/02/17 06/02/17 04:03 04:24 04:24 WBC 21.0 H RBC 3.62 L Hgb Hct 29.6 L MCH MCHC RDW 16.5 H Plt Count Lymph % (Auto) Hunt % (Auto) Hunt # Seg Neutrophils % Seg Neuts % (Manual) 98.0 H Lymphocytes % (Manual) 1.0 L Basophils % (Manual) Seg Neutrophils # Seg Neutrophils # Man 20.6 H Lymphocytes # (Manual) 0.2 L Monocytes # (Manual) Basophils # (Manual) POC ABG pH ABG pH POC ABG pCO2 POC ABG pO2 ABG pO2 ABG Base Excess ABG Hemoglobin Oxyhemoglobin Sodium Potassium Chloride Carbon Dioxide 20 L BUN 36 H Creatinine 2.8 H Glucose 137 H POC Glucose 150 H Hemoglobin A1c Calcium 7.5 L Phosphorus 4.60 H Magnesium 1.50 L AST Alkaline Phosphatase 132 H Total Protein 4.1 L Albumin 1.7 L Urine WBC (Auto) Urine Creatinine Urine Total Protein Crossmatch 06/02/17 06/02/17 06/02/17 05:01 05:14 06:20 WBC RBC Hgb Hct MCH MCHC RDW Plt Count Lymph % (Auto) Hunt % (Auto) Hunt # Seg Neutrophils % Seg Neuts % (Manual) Lymphocytes % (Manual) Basophils % (Manual) Seg Neutrophils # Seg Neutrophils # Man Lymphocytes # (Manual) Monocytes # (Manual) Basophils # (Manual) POC ABG pH 7.517 H ABG pH POC ABG pCO2 28.4 L POC ABG pO2 67 L ABG pO2 ABG Base Excess ABG Hemoglobin Oxyhemoglobin Sodium Potassium Chloride Carbon Dioxide BUN Creatinine Glucose POC Glucose 137 H 163 H Hemoglobin A1c Calcium Phosphorus Magnesium AST Alkaline Phosphatase Total Protein Albumin Urine WBC (Auto) Urine Creatinine Urine Total Protein Crossmatch 06/02/17 06/02/17 06/02/17 07:43 09:40 10:18 WBC RBC Hgb Hct MCH MCHC RDW Plt Count Lymph % (Auto) Hunt % (Auto) Hunt # Seg Neutrophils % Seg Neuts % (Manual) Lymphocytes % (Manual) Basophils % (Manual) Seg Neutrophils # Seg Neutrophils # Man Lymphocytes # (Manual) Monocytes # (Manual) Basophils # (Manual) POC ABG pH ABG pH POC ABG pCO2 POC ABG pO2 ABG pO2 ABG Base Excess ABG Hemoglobin Oxyhemoglobin Sodium Potassium Chloride Carbon Dioxide BUN Creatinine Glucose POC Glucose 135 H 196 H Hemoglobin A1c Calcium Phosphorus Magnesium AST Alkaline Phosphatase Total Protein Albumin Urine WBC (Auto) Urine Creatinine Urine Total Protein < 4 L Crossmatch 06/02/17 06/02/17 06/02/17 10:33 11:55 17:39 WBC RBC Hgb Hct MCH MCHC RDW Plt Count Lymph % (Auto) Hunt % (Auto) Hunt # Seg Neutrophils % Seg Neuts % (Manual) Lymphocytes % (Manual) Basophils % (Manual) Seg Neutrophils # Seg Neutrophils # Man Lymphocytes # (Manual) Monocytes # (Manual) Basophils # (Manual) POC ABG pH ABG pH POC ABG pCO2 POC ABG pO2 ABG pO2 ABG Base Excess ABG Hemoglobin Oxyhemoglobin Sodium Potassium Chloride Carbon Dioxide BUN Creatinine Glucose POC Glucose 188 H 110 H 150 H Hemoglobin A1c Calcium Phosphorus Magnesium AST Alkaline Phosphatase Total Protein Albumin Urine WBC (Auto) Urine Creatinine Urine Total Protein Crossmatch 06/02/17 06/02/17 06/03/17 18:12 21:32 02:02 WBC RBC Hgb Hct MCH MCHC RDW Plt Count Lymph % (Auto) Hunt % (Auto) Hunt # Seg Neutrophils % Seg Neuts % (Manual) Lymphocytes % (Manual) Basophils % (Manual) Seg Neutrophils # Seg Neutrophils # Man Lymphocytes # (Manual) Monocytes # (Manual) Basophils # (Manual) POC ABG pH ABG pH POC ABG pCO2 POC ABG pO2 ABG pO2 ABG Base Excess ABG Hemoglobin Oxyhemoglobin Sodium Potassium Chloride Carbon Dioxide BUN Creatinine Glucose POC Glucose 131 H 143 H 191 H Hemoglobin A1c Calcium Phosphorus Magnesium AST Alkaline Phosphatase Total Protein Albumin Urine WBC (Auto) Urine Creatinine Urine Total Protein Crossmatch 06/03/17 06/03/17 06/03/17 04:14 04:14 05:06 WBC 21.1 H RBC Hgb Hct MCH 27 L MCHC RDW 15.9 H Plt Count 447 H Lymph % (Auto) Hunt % (Auto) Hunt # Seg Neutrophils % Seg Neuts % (Manual) 94.0 H Lymphocytes % (Manual) 3.0 L Basophils % (Manual) Seg Neutrophils # Seg Neutrophils # Man 19.8 H Lymphocytes # (Manual) 0.6 L Monocytes # (Manual) Basophils # (Manual) POC ABG pH ABG pH POC ABG pCO2 28.6 L POC ABG pO2 112 H ABG pO2 ABG Base Excess ABG Hemoglobin Oxyhemoglobin Sodium Potassium Chloride Carbon Dioxide 14 L BUN 45 H Creatinine 2.8 H Glucose 211 H POC Glucose Hemoglobin A1c Calcium 8.0 L Phosphorus Magnesium AST Alkaline Phosphatase Total Protein Albumin Urine WBC (Auto) Urine Creatinine Urine Total Protein Crossmatch 06/03/17 06/03/17 06/03/17 06:00 10:20 13:43 WBC RBC Hgb Hct MCH MCHC RDW Plt Count Lymph % (Auto) Hunt % (Auto) Hunt # Seg Neutrophils % Seg Neuts % (Manual) Lymphocytes % (Manual) Basophils % (Manual) Seg Neutrophils # Seg Neutrophils # Man Lymphocytes # (Manual) Monocytes # (Manual) Basophils # (Manual) POC ABG pH ABG pH POC ABG pCO2 POC ABG pO2 ABG pO2 ABG Base Excess ABG Hemoglobin Oxyhemoglobin Sodium Potassium Chloride Carbon Dioxide BUN Creatinine Glucose POC Glucose 224 H 226 H 296 H Hemoglobin A1c Calcium Phosphorus Magnesium AST Alkaline Phosphatase Total Protein Albumin Urine WBC (Auto) Urine Creatinine Urine Total Protein Crossmatch 06/03/17 06/03/17 06/03/17 17:38 19:23 20:45 WBC RBC Hgb Hct MCH MCHC RDW Plt Count Lymph % (Auto) Hunt % (Auto) Hunt # Seg Neutrophils % Seg Neuts % (Manual) Lymphocytes % (Manual) Basophils % (Manual) Seg Neutrophils # Seg Neutrophils # Man Lymphocytes # (Manual) Monocytes # (Manual) Basophils # (Manual) POC ABG pH ABG pH POC ABG pCO2 POC ABG pO2 ABG pO2 ABG Base Excess ABG Hemoglobin Oxyhemoglobin Sodium Potassium Chloride Carbon Dioxide BUN Creatinine Glucose POC Glucose 295 H 275 H 338 H Hemoglobin A1c Calcium Phosphorus Magnesium AST Alkaline Phosphatase Total Protein Albumin Urine WBC (Auto) Urine Creatinine Urine Total Protein Crossmatch 03/21/18 03/21/18 03/22/18 21:50 23:08 00:16 WBC RBC Hgb Hct MCH MCHC RDW Plt Count Lymph % (Auto) Hunt % (Auto) Hunt # Seg Neutrophils % Seg Neuts % (Manual) Lymphocytes % (Manual) Basophils % (Manual) Seg Neutrophils # Seg Neutrophils # Man Lymphocytes # (Manual) Monocytes # (Manual) Basophils # (Manual) POC ABG pH ABG pH POC ABG pCO2 POC ABG pO2 ABG pO2 ABG Base Excess ABG Hemoglobin Oxyhemoglobin Sodium Potassium Chloride Carbon Dioxide BUN Creatinine Glucose POC Glucose 223 H 214 H 226 H Hemoglobin A1c Calcium Phosphorus Magnesium AST Alkaline Phosphatase Total Protein Albumin Urine WBC (Auto) Urine Creatinine Urine Total Protein Crossmatch 06/04/17 06/04/17 06/04/17 01:05 02:07 03:27 WBC RBC Hgb Hct MCH MCHC RDW Plt Count Lymph % (Auto) Hunt % (Auto) Hunt # Seg Neutrophils % Seg Neuts % (Manual) Lymphocytes % (Manual) Basophils % (Manual) Seg Neutrophils # Seg Neutrophils # Man Lymphocytes # (Manual) Monocytes # (Manual) Basophils # (Manual) POC ABG pH ABG pH POC ABG pCO2 POC ABG pO2 ABG pO2 ABG Base Excess ABG Hemoglobin Oxyhemoglobin Sodium Potassium Chloride Carbon Dioxide BUN Creatinine Glucose POC Glucose 217 H 229 H 185 H Hemoglobin A1c Calcium Phosphorus Magnesium AST Alkaline Phosphatase Total Protein Albumin Urine WBC (Auto) Urine Creatinine Urine Total Protein Crossmatch 06/04/17 06/04/17 06/04/17 03:52 04:05 04:05 WBC 19.6 H RBC Hgb Hct MCH 26 L MCHC RDW 15.6 H Plt Count 564 H Lymph % (Auto) 7.3 L Hunt % (Auto) 10.8 H Hunt # 2.1 H Seg Neutrophils % 81.4 H Seg Neuts % (Manual) Lymphocytes % (Manual) Basophils % (Manual) Seg Neutrophils # 15.9 H Seg Neutrophils # Man Lymphocytes # (Manual) Monocytes # (Manual) Basophils # (Manual) POC ABG pH ABG pH POC ABG pCO2 POC ABG pO2 ABG pO2 ABG Base Excess ABG Hemoglobin Oxyhemoglobin Sodium Potassium Chloride Carbon Dioxide 17 L BUN 52 H Creatinine 2.5 H Glucose 163 H POC Glucose 181 H Hemoglobin A1c Calcium 7.9 L Phosphorus Magnesium AST Alkaline Phosphatase Total Protein Albumin Urine WBC (Auto) Urine Creatinine Urine Total Protein Crossmatch 06/04/17 06/04/17 06/04/17 04:56 05:39 06:12 WBC RBC Hgb Hct MCH MCHC RDW Plt Count Lymph % (Auto) Hunt % (Auto) Hunt # Seg Neutrophils % Seg Neuts % (Manual) Lymphocytes % (Manual) Basophils % (Manual) Seg Neutrophils # Seg Neutrophils # Man Lymphocytes # (Manual) Monocytes # (Manual) Basophils # (Manual) POC ABG pH 7.486 H ABG pH POC ABG pCO2 26.8 L POC ABG pO2 ABG pO2 ABG Base Excess ABG Hemoglobin Oxyhemoglobin Sodium Potassium Chloride Carbon Dioxide BUN Creatinine Glucose POC Glucose 208 H 225 H Hemoglobin A1c Calcium Phosphorus Magnesium AST Alkaline Phosphatase Total Protein Albumin Urine WBC (Auto) Urine Creatinine Urine Total Protein Crossmatch 06/04/17 06/04/17 06/04/17 07:07 08:06 09:15 WBC RBC Hgb Hct MCH MCHC RDW Plt Count Lymph % (Auto) Hunt % (Auto) Hunt # Seg Neutrophils % Seg Neuts % (Manual) Lymphocytes % (Manual) Basophils % (Manual) Seg Neutrophils # Seg Neutrophils # Man Lymphocytes # (Manual) Monocytes # (Manual) Basophils # (Manual) POC ABG pH ABG pH POC ABG pCO2 POC ABG pO2 ABG pO2 ABG Base Excess ABG Hemoglobin Oxyhemoglobin Sodium Potassium Chloride Carbon Dioxide BUN Creatinine Glucose POC Glucose 201 H 171 H 178 H Hemoglobin A1c Calcium Phosphorus Magnesium AST Alkaline Phosphatase Total Protein Albumin Urine WBC (Auto) Urine Creatinine Urine Total Protein Crossmatch 06/04/17 06/04/17 06/04/17 10:16 12:22 17:21 WBC RBC Hgb Hct MCH MCHC RDW Plt Count Lymph % (Auto) Hunt % (Auto) Hunt # Seg Neutrophils % Seg Neuts % (Manual) Lymphocytes % (Manual) Basophils % (Manual) Seg Neutrophils # Seg Neutrophils # Man Lymphocytes # (Manual) Monocytes # (Manual) Basophils # (Manual) POC ABG pH ABG pH POC ABG pCO2 POC ABG pO2 ABG pO2 ABG Base Excess ABG Hemoglobin Oxyhemoglobin Sodium Potassium Chloride Carbon Dioxide BUN Creatinine Glucose POC Glucose 191 H 188 H Hemoglobin A1c Calcium Phosphorus Magnesium AST Alkaline Phosphatase Total Protein Albumin Urine WBC (Auto) Urine Creatinine 78.7 H Urine Total Protein 197 H Crossmatch 06/04/17 06/04/17 06/05/17 17:56 22:10 00:00 WBC RBC Hgb Hct MCH MCHC RDW Plt Count Lymph % (Auto) Hunt % (Auto) Hunt # Seg Neutrophils % Seg Neuts % (Manual) Lymphocytes % (Manual) Basophils % (Manual) Seg Neutrophils # Seg Neutrophils # Man Lymphocytes # (Manual) Monocytes # (Manual) Basophils # (Manual) POC ABG pH ABG pH POC ABG pCO2 POC ABG pO2 ABG pO2 ABG Base Excess ABG Hemoglobin Oxyhemoglobin Sodium Potassium Chloride Carbon Dioxide 17 L BUN 55 H Creatinine 2.3 H Glucose 300 H POC Glucose 266 H 337 H Hemoglobin A1c Calcium 7.4 L Phosphorus Magnesium AST Alkaline Phosphatase Total Protein Albumin Urine WBC (Auto) Urine Creatinine Urine Total Protein Crossmatch 06/05/17 06/05/17 06/05/17 03:26 04:11 05:13 WBC RBC Hgb Hct MCH MCHC RDW Plt Count Lymph % (Auto) Hunt % (Auto) Hunt # Seg Neutrophils % Seg Neuts % (Manual) Lymphocytes % (Manual) Basophils % (Manual) Seg Neutrophils # Seg Neutrophils # Man Lymphocytes # (Manual) Monocytes # (Manual) Basophils # (Manual) POC ABG pH 7.586 H ABG pH POC ABG pCO2 22.6 L POC ABG pO2 179 H ABG pO2 ABG Base Excess ABG Hemoglobin Oxyhemoglobin Sodium Potassium Chloride Carbon Dioxide 19 L BUN 55 H Creatinine 2.2 H Glucose 226 H POC Glucose 220 H Hemoglobin A1c Calcium 7.7 L Phosphorus Magnesium AST Alkaline Phosphatase Total Protein Albumin Urine WBC (Auto) Urine Creatinine Urine Total Protein Crossmatch 06/05/17 06/05/17 06/05/17 12:42 18:24 21:23 WBC RBC Hgb Hct MCH MCHC RDW Plt Count Lymph % (Auto) Hunt % (Auto) Hunt # Seg Neutrophils % Seg Neuts % (Manual) Lymphocytes % (Manual) Basophils % (Manual) Seg Neutrophils # Seg Neutrophils # Man Lymphocytes # (Manual) Monocytes # (Manual) Basophils # (Manual) POC ABG pH ABG pH POC ABG pCO2 POC ABG pO2 ABG pO2 ABG Base Excess ABG Hemoglobin Oxyhemoglobin Sodium Potassium Chloride Carbon Dioxide BUN Creatinine Glucose POC Glucose 168 H 121 H 166 H Hemoglobin A1c Calcium Phosphorus Magnesium AST Alkaline Phosphatase Total Protein Albumin Urine WBC (Auto) Urine Creatinine Urine Total Protein Crossmatch 06/06/17 06/06/17 06/06/17 00:14 04:11 06:19 WBC RBC Hgb Hct MCH MCHC RDW Plt Count Lymph % (Auto) Hunt % (Auto) Hunt # Seg Neutrophils % Seg Neuts % (Manual) Lymphocytes % (Manual) Basophils % (Manual) Seg Neutrophils # Seg Neutrophils # Man Lymphocytes # (Manual) Monocytes # (Manual) Basophils # (Manual) POC ABG pH ABG pH POC ABG pCO2 33.0 L POC ABG pO2 ABG pO2 ABG Base Excess ABG Hemoglobin Oxyhemoglobin Sodium Potassium Chloride Carbon Dioxide BUN Creatinine Glucose POC Glucose 179 H 180 H Hemoglobin A1c Calcium Phosphorus Magnesium AST Alkaline Phosphatase Total Protein Albumin Urine WBC (Auto) Urine Creatinine Urine Total Protein Crossmatch 06/06/17 06/06/17 06/06/17 12:19 18:38 20:01 WBC RBC Hgb Hct MCH MCHC RDW Plt Count Lymph % (Auto) Hunt % (Auto) Hunt # Seg Neutrophils % Seg Neuts % (Manual) Lymphocytes % (Manual) Basophils % (Manual) Seg Neutrophils # Seg Neutrophils # Man Lymphocytes # (Manual) Monocytes # (Manual) Basophils # (Manual) POC ABG pH ABG pH POC ABG pCO2 POC ABG pO2 ABG pO2 ABG Base Excess ABG Hemoglobin Oxyhemoglobin Sodium Potassium Chloride Carbon Dioxide BUN Creatinine Glucose POC Glucose 123 H 56 L 65 L Hemoglobin A1c Calcium Phosphorus Magnesium AST Alkaline Phosphatase Total Protein Albumin Urine WBC (Auto) Urine Creatinine Urine Total Protein Crossmatch 06/06/17 06/07/17 06/07/17 23:51 04:25 05:29 WBC RBC Hgb Hct MCH MCHC RDW Plt Count Lymph % (Auto) Hunt % (Auto) Hunt # Seg Neutrophils % Seg Neuts % (Manual) Lymphocytes % (Manual) Basophils % (Manual) Seg Neutrophils # Seg Neutrophils # Man Lymphocytes # (Manual) Monocytes # (Manual) Basophils # (Manual) POC ABG pH 7.470 H ABG pH POC ABG pCO2 33.6 L POC ABG pO2 ABG pO2 ABG Base Excess ABG Hemoglobin Oxyhemoglobin Sodium Potassium Chloride Carbon Dioxide BUN Creatinine Glucose POC Glucose 118 H 183 H Hemoglobin A1c Calcium Phosphorus Magnesium AST Alkaline Phosphatase Total Protein Albumin Urine WBC (Auto) Urine Creatinine Urine Total Protein Crossmatch 06/07/17 06/07/17 06/07/17 07:51 12:00 18:08 WBC RBC Hgb Hct MCH MCHC RDW Plt Count Lymph % (Auto) Hunt % (Auto) Hunt # Seg Neutrophils % Seg Neuts % (Manual) Lymphocytes % (Manual) Basophils % (Manual) Seg Neutrophils # Seg Neutrophils # Man Lymphocytes # (Manual) Monocytes # (Manual) Basophils # (Manual) POC ABG pH ABG pH POC ABG pCO2 POC ABG pO2 ABG pO2 ABG Base Excess ABG Hemoglobin Oxyhemoglobin Sodium 135 L Potassium Chloride Carbon Dioxide 21 L BUN 50 H Creatinine 1.8 H Glucose 232 H POC Glucose 361 H 249 H Hemoglobin A1c Calcium 8.0 L Phosphorus Magnesium AST Alkaline Phosphatase Total Protein Albumin Urine WBC (Auto) Urine Creatinine Urine Total Protein Crossmatch 06/07/17 06/08/17 06/08/17 23:53 05:25 11:50 WBC RBC Hgb Hct MCH MCHC RDW Plt Count Lymph % (Auto) Hunt % (Auto) Hunt # Seg Neutrophils % Seg Neuts % (Manual) Lymphocytes % (Manual) Basophils % (Manual) Seg Neutrophils # Seg Neutrophils # Man Lymphocytes # (Manual) Monocytes # (Manual) Basophils # (Manual) POC ABG pH ABG pH POC ABG pCO2 POC ABG pO2 ABG pO2 ABG Base Excess ABG Hemoglobin Oxyhemoglobin Sodium Potassium Chloride Carbon Dioxide BUN Creatinine Glucose POC Glucose 190 H 136 H 166 H Hemoglobin A1c Calcium Phosphorus Magnesium AST Alkaline Phosphatase Total Protein Albumin Urine WBC (Auto) Urine Creatinine Urine Total Protein Crossmatch 06/08/17 06/08/17 06/08/17 14:20 14:20 19:05 WBC 15.7 H RBC 3.49 L Hgb 9.4 L Hct 27.9 L MCH 27 L MCHC RDW 15.3 H Plt Count 590 H Lymph % (Auto) Hunt % (Auto) Hunt # Seg Neutrophils % Seg Neuts % (Manual) Lymphocytes % (Manual) Basophils % (Manual) Seg Neutrophils # Seg Neutrophils # Man Lymphocytes # (Manual) Monocytes # (Manual) Basophils # (Manual) POC ABG pH ABG pH POC ABG pCO2 POC ABG pO2 ABG pO2 ABG Base Excess ABG Hemoglobin Oxyhemoglobin Sodium Potassium Chloride Carbon Dioxide BUN 55 H Creatinine 1.7 H Glucose 117 H POC Glucose 135 H Hemoglobin A1c Calcium Phosphorus Magnesium AST Alkaline Phosphatase Total Protein Albumin Urine WBC (Auto) Urine Creatinine Urine Total Protein Crossmatch 06/08/17 06/08/17 06/09/17 21:52 23:55 04:18 WBC RBC Hgb Hct MCH MCHC RDW Plt Count Lymph % (Auto) Hunt % (Auto) Hunt # Seg Neutrophils % Seg Neuts % (Manual) Lymphocytes % (Manual) Basophils % (Manual) Seg Neutrophils # Seg Neutrophils # Man Lymphocytes # (Manual) Monocytes # (Manual) Basophils # (Manual) POC ABG pH ABG pH POC ABG pCO2 POC ABG pO2 ABG pO2 ABG Base Excess ABG Hemoglobin Oxyhemoglobin Sodium Potassium Chloride Carbon Dioxide BUN 51 H Creatinine 1.6 H Glucose POC Glucose 186 H 209 H Hemoglobin A1c Calcium Phosphorus Magnesium AST Alkaline Phosphatase Total Protein Albumin Urine WBC (Auto) Urine Creatinine Urine Total Protein Crossmatch 06/09/17 06/09/17 06/09/17 09:56 12:42 18:09 WBC RBC Hgb Hct MCH MCHC RDW Plt Count Lymph % (Auto) Hunt % (Auto) Hunt # Seg Neutrophils % Seg Neuts % (Manual) Lymphocytes % (Manual) Basophils % (Manual) Seg Neutrophils # Seg Neutrophils # Man Lymphocytes # (Manual) Monocytes # (Manual) Basophils # (Manual) POC ABG pH ABG pH POC ABG pCO2 POC ABG pO2 ABG pO2 ABG Base Excess ABG Hemoglobin Oxyhemoglobin Sodium Potassium Chloride Carbon Dioxide BUN Creatinine Glucose POC Glucose 63 L 142 H 166 H Hemoglobin A1c Calcium Phosphorus Magnesium AST Alkaline Phosphatase Total Protein Albumin Urine WBC (Auto) Urine Creatinine Urine Total Protein Crossmatch 06/09/17 06/10/17 06/10/17 23:39 03:24 04:28 WBC 15.1 H RBC 2.99 L Hgb 8.1 L Hct 23.6 L MCH 27 L MCHC 35 H RDW 15.4 H Plt Count 500 H Lymph % (Auto) Hunt % (Auto) Hunt # Seg Neutrophils % Seg Neuts % (Manual) Lymphocytes % (Manual) Basophils % (Manual) Seg Neutrophils # Seg Neutrophils # Man Lymphocytes # (Manual) Monocytes # (Manual) Basophils # (Manual) POC ABG pH 7.461 H ABG pH POC ABG pCO2 POC ABG pO2 131 H ABG pO2 ABG Base Excess ABG Hemoglobin Oxyhemoglobin Sodium Potassium Chloride Carbon Dioxide BUN Creatinine Glucose POC Glucose 284 H Hemoglobin A1c Calcium Phosphorus Magnesium AST Alkaline Phosphatase Total Protein Albumin Urine WBC (Auto) Urine Creatinine Urine Total Protein Crossmatch 0306/10/17 06/10/17 04:28 05:10 12:41 WBC RBC Hgb Hct MCH MCHC RDW Plt Count Lymph % (Auto) Hunt % (Auto) Hunt # Seg Neutrophils % Seg Neuts % (Manual) Lymphocytes % (Manual) Basophils % (Manual) Seg Neutrophils # Seg Neutrophils # Man Lymphocytes # (Manual) Monocytes # (Manual) Basophils # (Manual) POC ABG pH ABG pH POC ABG pCO2 POC ABG pO2 ABG pO2 ABG Base Excess ABG Hemoglobin Oxyhemoglobin Sodium Potassium Chloride Carbon Dioxide BUN 53 H Creatinine 1.8 H Glucose 185 H POC Glucose 190 H 50 L Hemoglobin A1c Calcium Phosphorus Magnesium AST Alkaline Phosphatase Total Protein Albumin Urine WBC (Auto) Urine Creatinine Urine Total Protein Crossmatch 06/10/17 06/10/17 06/11/17 14:35 18:31 00:09 WBC RBC Hgb Hct MCH MCHC RDW Plt Count Lymph % (Auto) Hunt % (Auto) Hunt # Seg Neutrophils % Seg Neuts % (Manual) Lymphocytes % (Manual) Basophils % (Manual) Seg Neutrophils # Seg Neutrophils # Man Lymphocytes # (Manual) Monocytes # (Manual) Basophils # (Manual) POC ABG pH ABG pH POC ABG pCO2 POC ABG pO2 ABG pO2 ABG Base Excess ABG Hemoglobin Oxyhemoglobin Sodium Potassium Chloride Carbon Dioxide BUN Creatinine Glucose POC Glucose 58 L 55 L 126 H Hemoglobin A1c Calcium Phosphorus Magnesium AST Alkaline Phosphatase Total Protein Albumin Urine WBC (Auto) Urine Creatinine Urine Total Protein Crossmatch 06/11/17 06/11/17 06/11/17 05:32 06:01 06:03 WBC 15.6 H RBC 3.03 L Hgb 8.3 L Hct 24.0 L MCH MCHC 35 H RDW Plt Count 492 H Lymph % (Auto) Hunt % (Auto) Hunt # Seg Neutrophils % Seg Neuts % (Manual) Lymphocytes % (Manual) Basophils % (Manual) Seg Neutrophils # Seg Neutrophils # Man Lymphocytes # (Manual) Monocytes # (Manual) Basophils # (Manual) POC ABG pH ABG pH POC ABG pCO2 POC ABG pO2 ABG pO2 ABG Base Excess ABG Hemoglobin Oxyhemoglobin Sodium Potassium Chloride Carbon Dioxide BUN 55 H Creatinine 1.8 H Glucose 228 H POC Glucose 219 H Hemoglobin A1c Calcium Phosphorus Magnesium AST Alkaline Phosphatase Total Protein Albumin Urine WBC (Auto) Urine Creatinine Urine Total Protein Crossmatch 06/11/17 06/11/17 06/12/17 11:53 18:31 04:24 WBC 17.4 H RBC 2.90 L Hgb 8.0 L Hct 23.0 L MCH MCHC 35 H RDW Plt Count 460 H Lymph % (Auto) Hunt % (Auto) Hunt # Seg Neutrophils % Seg Neuts % (Manual) Lymphocytes % (Manual) Basophils % (Manual) Seg Neutrophils # Seg Neutrophils # Man Lymphocytes # (Manual) Monocytes # (Manual) Basophils # (Manual) POC ABG pH ABG pH POC ABG pCO2 POC ABG pO2 ABG pO2 ABG Base Excess ABG Hemoglobin Oxyhemoglobin Sodium Potassium Chloride Carbon Dioxide BUN Creatinine Glucose POC Glucose 220 H 254 H Hemoglobin A1c Calcium Phosphorus Magnesium AST Alkaline Phosphatase Total Protein Albumin Urine WBC (Auto) Urine Creatinine Urine Total Protein Crossmatch 06/12/17 06/12/17 06/12/17 05:37 05:40 06:00 WBC RBC Hgb Hct MCH MCHC RDW Plt Count Lymph % (Auto) Hunt % (Auto) Hunt # Seg Neutrophils % Seg Neuts % (Manual) Lymphocytes % (Manual) Basophils % (Manual) Seg Neutrophils # Seg Neutrophils # Man Lymphocytes # (Manual) Monocytes # (Manual) Basophils # (Manual) POC ABG pH ABG pH POC ABG pCO2 POC ABG pO2 ABG pO2 ABG Base Excess ABG Hemoglobin Oxyhemoglobin Sodium Potassium Chloride Carbon Dioxide BUN Creatinine Glucose 41 L POC Glucose < 40 L < 40 L Hemoglobin A1c Calcium Phosphorus Magnesium AST Alkaline Phosphatase Total Protein Albumin Urine WBC (Auto) Urine Creatinine Urine Total Protein Crossmatch 06/12/17 06/12/17 06/12/17 07:09 07:51 10:06 WBC RBC Hgb Hct MCH MCHC RDW Plt Count Lymph % (Auto) Hunt % (Auto) Hunt # Seg Neutrophils % Seg Neuts % (Manual) Lymphocytes % (Manual) Basophils % (Manual) Seg Neutrophils # Seg Neutrophils # Man Lymphocytes # (Manual) Monocytes # (Manual) Basophils # (Manual) POC ABG pH ABG pH POC ABG pCO2 POC ABG pO2 ABG pO2 ABG Base Excess ABG Hemoglobin Oxyhemoglobin Sodium Potassium Chloride Carbon Dioxide BUN Creatinine Glucose POC Glucose 64 L 42 L 61 L Hemoglobin A1c Calcium Phosphorus Magnesium AST Alkaline Phosphatase Total Protein Albumin Urine WBC (Auto) Urine Creatinine Urine Total Protein Crossmatch 06/12/17 06/12/1706/12/18 11:16 14:04 18:03 WBC RBC Hgb Hct MCH MCHC RDW Plt Count Lymph % (Auto) Hunt % (Auto) Hunt # Seg Neutrophils % Seg Neuts % (Manual) Lymphocytes % (Manual) Basophils % (Manual) Seg Neutrophils # Seg Neutrophils # Man Lymphocytes # (Manual) Monocytes # (Manual) Basophils # (Manual) POC ABG pH ABG pH POC ABG pCO2 POC ABG pO2 ABG pO2 ABG Base Excess ABG Hemoglobin Oxyhemoglobin Sodium Potassium Chloride Carbon Dioxide BUN Creatinine Glucose POC Glucose 67 L 112 H 116 H Hemoglobin A1c Calcium Phosphorus Magnesium AST Alkaline Phosphatase Total Protein Albumin Urine WBC (Auto) Urine Creatinine Urine Total Protein Crossmatch 06/12/17 06/12/17 06/12/17 19:30 20:34 21:01 WBC RBC Hgb Hct MCH MCHC RDW Plt Count Lymph % (Auto) Hunt % (Auto) Hunt # Seg Neutrophils % Seg Neuts % (Manual) Lymphocytes % (Manual) Basophils % (Manual) Seg Neutrophils # Seg Neutrophils # Man Lymphocytes # (Manual) Monocytes # (Manual) Basophils # (Manual) POC ABG pH ABG pH POC ABG pCO2 POC ABG pO2 ABG pO2 ABG Base Excess ABG Hemoglobin Oxyhemoglobin Sodium Potassium Chloride Carbon Dioxide BUN Creatinine Glucose POC Glucose 156 H 172 H 174 H Hemoglobin A1c Calcium Phosphorus Magnesium AST Alkaline Phosphatase Total Protein Albumin Urine WBC (Auto) Urine Creatinine Urine Total Protein Crossmatch 06/12/17 06/12/17 06/13/17 22:00 23:23 00:27 WBC RBC Hgb Hct MCH MCHC RDW Plt Count Lymph % (Auto) Hunt % (Auto) Hunt # Seg Neutrophils % Seg Neuts % (Manual) Lymphocytes % (Manual) Basophils % (Manual) Seg Neutrophils # Seg Neutrophils # Man Lymphocytes # (Manual) Monocytes # (Manual) Basophils # (Manual) POC ABG pH ABG pH POC ABG pCO2 POC ABG pO2 ABG pO2 ABG Base Excess ABG Hemoglobin Oxyhemoglobin Sodium Potassium Chloride Carbon Dioxide BUN Creatinine Glucose POC Glucose 240 H 286 H 182 H Hemoglobin A1c Calcium Phosphorus Magnesium AST Alkaline Phosphatase Total Protein Albumin Urine WBC (Auto) Urine Creatinine Urine Total Protein Crossmatch 06/13/17 06/13/17 06/13/17 01:28 02:10 03:15 WBC RBC Hgb Hct MCH MCHC RDW Plt Count Lymph % (Auto) Hunt % (Auto) Hunt # Seg Neutrophils % Seg Neuts % (Manual) Lymphocytes % (Manual) Basophils % (Manual) Seg Neutrophils # Seg Neutrophils # Man Lymphocytes # (Manual) Monocytes # (Manual) Basophils # (Manual) POC ABG pH ABG pH POC ABG pCO2 POC ABG pO2 ABG pO2 ABG Base Excess ABG Hemoglobin Oxyhemoglobin Sodium Potassium Chloride Carbon Dioxide BUN Creatinine Glucose POC Glucose 304 H 277 H 318 H Hemoglobin A1c Calcium Phosphorus Magnesium AST Alkaline Phosphatase Total Protein Albumin Urine WBC (Auto) Urine Creatinine Urine Total Protein Crossmatch 06/13/17 06/13/17 06/13/17 04:15 05:10 05:38 WBC RBC Hgb Hct MCH MCHC RDW Plt Count Lymph % (Auto) Hunt % (Auto) Hunt # Seg Neutrophils % Seg Neuts % (Manual) Lymphocytes % (Manual) Basophils % (Manual) Seg Neutrophils # Seg Neutrophils # Man Lymphocytes # (Manual) Monocytes # (Manual) Basophils # (Manual) POC ABG pH ABG pH POC ABG pCO2 POC ABG pO2 ABG pO2 ABG Base Excess ABG Hemoglobin Oxyhemoglobin Sodium Potassium Chloride Carbon Dioxide BUN Creatinine Glucose POC Glucose 294 H 275 H 315 H Hemoglobin A1c Calcium Phosphorus Magnesium AST Alkaline Phosphatase Total Protein Albumin Urine WBC (Auto) Urine Creatinine Urine Total Protein Crossmatch 06/13/17 06/13/17 06/13/17 06:21 12:02 16:52 WBC RBC Hgb Hct MCH MCHC RDW Plt Count Lymph % (Auto) Hunt % (Auto) Hunt # Seg Neutrophils % Seg Neuts % (Manual) Lymphocytes % (Manual) Basophils % (Manual) Seg Neutrophils # Seg Neutrophils # Man Lymphocytes # (Manual) Monocytes # (Manual) Basophils # (Manual) POC ABG pH ABG pH POC ABG pCO2 POC ABG pO2 ABG pO2 ABG Base Excess ABG Hemoglobin Oxyhemoglobin Sodium Potassium Chloride Carbon Dioxide BUN Creatinine Glucose POC Glucose 350 H 333 H 343 H Hemoglobin A1c Calcium Phosphorus Magnesium AST Alkaline Phosphatase Total Protein Albumin Urine WBC (Auto) Urine Creatinine Urine Total Protein Crossmatch 06/14/17 06/14/17 06/14/17 00:01 04:18 04:18 WBC 29.6 H RBC 2.81 L Hgb 7.8 L Hct 23.2 L MCH MCHC RDW 15.3 H Plt Count Lymph % (Auto) Hunt % (Auto) Hunt # Seg Neutrophils % Seg Neuts % (Manual) Lymphocytes % (Manual) Basophils % (Manual) Seg Neutrophils # Seg Neutrophils # Man Lymphocytes # (Manual) Monocytes # (Manual) Basophils # (Manual) POC ABG pH ABG pH POC ABG pCO2 POC ABG pO2 ABG pO2 ABG Base Excess ABG Hemoglobin Oxyhemoglobin Sodium Potassium Chloride Carbon Dioxide 20 L BUN 75 H Creatinine 2.2 H Glucose 364 H POC Glucose 297 H Hemoglobin A1c Calcium Phosphorus Magnesium AST Alkaline Phosphatase Total Protein Albumin Urine WBC (Auto) Urine Creatinine Urine Total Protein Crossmatch 06/14/17 06/14/17 06/14/17 05:10 08:25 11:46 WBC RBC Hgb Hct MCH MCHC RDW Plt Count Lymph % (Auto) Hunt % (Auto) Hunt # Seg Neutrophils % Seg Neuts % (Manual) Lymphocytes % (Manual) Basophils % (Manual) Seg Neutrophils # Seg Neutrophils # Man Lymphocytes # (Manual) Monocytes # (Manual) Basophils # (Manual) POC ABG pH ABG pH POC ABG pCO2 POC ABG pO2 ABG pO2 ABG Base Excess ABG Hemoglobin Oxyhemoglobin Sodium Potassium Chloride Carbon Dioxide BUN Creatinine Glucose POC Glucose 350 H 322 H 391 H Hemoglobin A1c Calcium Phosphorus Magnesium AST Alkaline Phosphatase Total Protein Albumin Urine WBC (Auto) Urine Creatinine Urine Total Protein Crossmatch 06/14/17 06/15/17 06/15/17 18:04 00:16 11:20 WBC RBC Hgb Hct MCH MCHC RDW Plt Count Lymph % (Auto) Hunt % (Auto) Hunt # Seg Neutrophils % Seg Neuts % (Manual) Lymphocytes % (Manual) Basophils % (Manual) Seg Neutrophils # Seg Neutrophils # Man Lymphocytes # (Manual) Monocytes # (Manual) Basophils # (Manual) POC ABG pH ABG pH POC ABG pCO2 POC ABG pO2 ABG pO2 ABG Base Excess ABG Hemoglobin Oxyhemoglobin Sodium Potassium Chloride Carbon Dioxide 21 L BUN 88 H Creatinine 2.7 H Glucose 302 H POC Glucose 384 H 435 H Hemoglobin A1c Calcium Phosphorus Magnesium AST Alkaline Phosphatase Total Protein Albumin Urine WBC (Auto) Urine Creatinine Urine Total Protein Crossmatch 06/15/17 06/15/17 06/15/17 11:47 17:35 21:33 WBC RBC Hgb Hct MCH MCHC RDW Plt Count Lymph % (Auto) Hunt % (Auto) Hunt # Seg Neutrophils % Seg Neuts % (Manual) Lymphocytes % (Manual) Basophils % (Manual) Seg Neutrophils # Seg Neutrophils # Man Lymphocytes # (Manual) Monocytes # (Manual) Basophils # (Manual) POC ABG pH ABG pH POC ABG pCO2 POC ABG pO2 ABG pO2 ABG Base Excess ABG Hemoglobin Oxyhemoglobin Sodium Potassium Chloride Carbon Dioxide BUN Creatinine Glucose POC Glucose 311 H 428 H 346 H Hemoglobin A1c Calcium Phosphorus Magnesium AST Alkaline Phosphatase Total Protein Albumin Urine WBC (Auto) Urine Creatinine Urine Total Protein Crossmatch 06/15/17 06/15/17 06/16/17 23:23 Unknown 05:36 WBC RBC Hgb Hct MCH MCHC RDW Plt Count Lymph % (Auto) Hunt % (Auto) Hunt # Seg Neutrophils % Seg Neuts % (Manual) Lymphocytes % (Manual) Basophils % (Manual) Seg Neutrophils # Seg Neutrophils # Man Lymphocytes # (Manual) Monocytes # (Manual) Basophils # (Manual) POC ABG pH ABG pH POC ABG pCO2 POC ABG pO2 ABG pO2 ABG Base Excess ABG Hemoglobin 10.1 L Oxyhemoglobin 94.9 L Sodium Potassium Chloride Carbon Dioxide BUN Creatinine Glucose POC Glucose 351 H 303 H Hemoglobin A1c Calcium Phosphorus Magnesium AST Alkaline Phosphatase Total Protein Albumin Urine WBC (Auto) Urine Creatinine Urine Total Protein Crossmatch 06/16/17 06/16/17 06/16/17 06:33 06:33 08:26 WBC 25.8 H RBC 2.68 L Hgb 7.2 L Hct 21.6 L MCH 27 L MCHC RDW 15.9 H Plt Count Lymph % (Auto) Hunt % (Auto) Hunt # Seg Neutrophils % Seg Neuts % (Manual) Lymphocytes % (Manual) Basophils % (Manual) Seg Neutrophils # Seg Neutrophils # Man Lymphocytes # (Manual) Monocytes # (Manual) Basophils # (Manual) POC ABG pH ABG pH POC ABG pCO2 POC ABG pO2 ABG pO2 ABG Base Excess ABG Hemoglobin Oxyhemoglobin Sodium Potassium Chloride Carbon Dioxide 21 L BUN 94 H Creatinine 2.7 H Glucose 280 H POC Glucose Hemoglobin A1c Calcium Phosphorus Magnesium AST Alkaline Phosphatase Total Protein Albumin Urine WBC (Auto) > 182.0 H Urine Creatinine Urine Total Protein Crossmatch 06/16/17 06/16/17 06/16/17 08:26 11:45 18:28 WBC RBC Hgb Hct MCH MCHC RDW Plt Count Lymph % (Auto) Hunt % (Auto) Hunt # Seg Neutrophils % Seg Neuts % (Manual) Lymphocytes % (Manual) Basophils % (Manual) Seg Neutrophils # Seg Neutrophils # Man Lymphocytes # (Manual) Monocytes # (Manual) Basophils # (Manual) POC ABG pH ABG pH POC ABG pCO2 POC ABG pO2 ABG pO2 ABG Base Excess ABG Hemoglobin Oxyhemoglobin Sodium Potassium Chloride Carbon Dioxide BUN Creatinine Glucose POC Glucose 263 H 175 H Hemoglobin A1c Calcium Phosphorus Magnesium AST Alkaline Phosphatase Total Protein Albumin Urine WBC (Auto) Urine Creatinine 119.9 H Urine Total Protein 295 H Crossmatch 06/16/17 06/17/17 06/17/17 23:36 03:51 04:04 WBC 28.1 H RBC 2.61 L Hgb 7.1 L Hct 21.5 L MCH 27 L MCHC RDW 15.8 H Plt Count Lymph % (Auto) Hunt % (Auto) Hunt # Seg Neutrophils % Seg Neuts % (Manual) 90.5 H Lymphocytes % (Manual) 2.0 L Basophils % (Manual) Seg Neutrophils # Seg Neutrophils # Man 25.4 H Lymphocytes # (Manual) 0.6 L Monocytes # (Manual) 1.5 H Basophils # (Manual) POC ABG pH ABG pH 7.483 H POC ABG pCO2 POC ABG pO2 ABG pO2 144.0 H ABG Base Excess -2.1 L ABG Hemoglobin 6.5 L Oxyhemoglobin Sodium Potassium Chloride Carbon Dioxide BUN Creatinine Glucose POC Glucose 152 H Hemoglobin A1c Calcium Phosphorus Magnesium AST Alkaline Phosphatase Total Protein Albumin Urine WBC (Auto) Urine Creatinine Urine Total Protein Crossmatch 06/17/17 06/17/17 06/17/17 04:04 05:34 09:34 WBC RBC Hgb Hct MCH MCHC RDW Plt Count Lymph % (Auto) Hunt % (Auto) Hunt # Seg Neutrophils % Seg Neuts % (Manual) Lymphocytes % (Manual) Basophils % (Manual) Seg Neutrophils # Seg Neutrophils # Man Lymphocytes # (Manual) Monocytes # (Manual) Basophils # (Manual) POC ABG pH ABG pH POC ABG pCO2 POC ABG pO2 ABG pO2 ABG Base Excess ABG Hemoglobin Oxyhemoglobin Sodium 136 L Potassium Chloride Carbon Dioxide 20 L BUN 97 H Creatinine 2.7 H Glucose 151 H POC Glucose 203 H 243 H Hemoglobin A1c Calcium Phosphorus Magnesium AST Alkaline Phosphatase Total Protein Albumin Urine WBC (Auto) Urine Creatinine Urine Total Protein Crossmatch 06/17/17 06/17/17 06/17/17 12:36 17:24 21:36 WBC RBC Hgb Hct MCH MCHC RDW Plt Count Lymph % (Auto) Hunt % (Auto) Hunt # Seg Neutrophils % Seg Neuts % (Manual) Lymphocytes % (Manual) Basophils % (Manual) Seg Neutrophils # Seg Neutrophils # Man Lymphocytes # (Manual) Monocytes # (Manual) Basophils # (Manual) POC ABG pH ABG pH POC ABG pCO2 POC ABG pO2 ABG pO2 ABG Base Excess ABG Hemoglobin Oxyhemoglobin Sodium Potassium Chloride Carbon Dioxide BUN Creatinine Glucose POC Glucose 214 H 131 H 175 H Hemoglobin A1c Calcium Phosphorus Magnesium AST Alkaline Phosphatase Total Protein Albumin Urine WBC (Auto) Urine Creatinine Urine Total Protein Crossmatch 06/18/17 06/18/17 06/18/17 00:14 04:55 10:57 WBC RBC Hgb Hct MCH MCHC RDW Plt Count Lymph % (Auto) Hunt % (Auto) Hunt # Seg Neutrophils % Seg Neuts % (Manual) Lymphocytes % (Manual) Basophils % (Manual) Seg Neutrophils # Seg Neutrophils # Man Lymphocytes # (Manual) Monocytes # (Manual) Basophils # (Manual) POC ABG pH ABG pH POC ABG pCO2 POC ABG pO2 ABG pO2 ABG Base Excess ABG Hemoglobin Oxyhemoglobin Sodium 134 L Potassium Chloride Carbon Dioxide 19 L BUN 107 H Creatinine 2.7 H Glucose 196 H POC Glucose 171 H 161 H Hemoglobin A1c Calcium Phosphorus Magnesium AST Alkaline Phosphatase Total Protein Albumin Urine WBC (Auto) Urine Creatinine Urine Total Protein Crossmatch 06/18/17 06/18/17 06/19/17 17:31 23:25 04:24 WBC 33.8 H RBC 2.46 L Hgb 6.7 L Hct 20.0 L MCH 27 L MCHC RDW 15.4 H Plt Count Lymph % (Auto) Hunt % (Auto) Hunt # Seg Neutrophils % Seg Neuts % (Manual) 91.0 H Lymphocytes % (Manual) 2.0 L Basophils % (Manual) Seg Neutrophils # Seg Neutrophils # Man 30.8 H Lymphocytes # (Manual) 0.7 L Monocytes # (Manual) 2.0 H Basophils # (Manual) POC ABG pH ABG pH POC ABG pCO2 POC ABG pO2 ABG pO2 ABG Base Excess ABG Hemoglobin Oxyhemoglobin Sodium Potassium Chloride Carbon Dioxide BUN Creatinine Glucose POC Glucose 241 H 303 H Hemoglobin A1c Calcium Phosphorus Magnesium AST Alkaline Phosphatase Total Protein Albumin Urine WBC (Auto) Urine Creatinine Urine Total Protein Crossmatch 06/19/17 06/19/17 06/19/17 04:24 05:19 12:14 WBC RBC Hgb Hct MCH MCHC RDW Plt Count Lymph % (Auto) Hunt % (Auto) Hunt # Seg Neutrophils % Seg Neuts % (Manual) Lymphocytes % (Manual) Basophils % (Manual) Seg Neutrophils # Seg Neutrophils # Man Lymphocytes # (Manual) Monocytes # (Manual) Basophils # (Manual) POC ABG pH ABG pH POC ABG pCO2 POC ABG pO2 ABG pO2 ABG Base Excess ABG Hemoglobin Oxyhemoglobin Sodium 135 L Potassium Chloride 97.2 L Carbon Dioxide 20 L BUN 116 H Creatinine 3.1 H Glucose 220 H POC Glucose 238 H 224 H Hemoglobin A1c Calcium Phosphorus Magnesium AST Alkaline Phosphatase Total Protein Albumin Urine WBC (Auto) Urine Creatinine Urine Total Protein Crossmatch 06/19/17 06/19/17 16:45 16:50 WBC RBC Hgb Hct MCH MCHC RDW Plt Count Lymph % (Auto) Hunt % (Auto) Hunt # Seg Neutrophils % Seg Neuts % (Manual) Lymphocytes % (Manual) Basophils % (Manual) Seg Neutrophils # Seg Neutrophils # Man Lymphocytes # (Manual) Monocytes # (Manual) Basophils # (Manual) POC ABG pH ABG pH POC ABG pCO2 POC ABG pO2 ABG pO2 ABG Base Excess ABG Hemoglobin Oxyhemoglobin Sodium Potassium Chloride Carbon Dioxide BUN Creatinine Glucose POC Glucose 177 H Hemoglobin A1c Calcium Phosphorus Magnesium AST Alkaline Phosphatase Total Protein Albumin Urine WBC (Auto) Urine Creatinine Urine Total Protein Crossmatch See Detail
[2017-06-20] MEDS: HumaLOG SUB-Q SCH ×4 (01:34→18:00)
[2017-06-20] MEDS: ISORDIL TITRADOSE PO SCH ×3 (05:08→22:00)
[2017-06-20] MEDS: APRESOLINE PO SCH ×3 (05:08→21:59)
[2017-06-20 05:19] LABS: Hematocrit 24.4 % (30.3-42.9); Hemoglobin 7.8 gm/dl (10.1-14.3); Mean Corpuscular HGB Conc 32 % (30-34); Mean Corpuscular Hemoglobin 27 pg (28-32); Mean Corpuscular Volume 85 fl (79-97); Platelet Count 441 K/mm3 (140-440); Red Blood Count 2.86 M/mm3 (3.65-5.03); Red Cell Distribution Width 16.2 % (13.2-15.2)
[2017-06-20 05:42] LABS: Calcium 8.6 mg/dL (8.4-10.2)
[2017-06-20 06:38] LABS: Total Cells Counted 100
[2017-06-20 06:39] LABS: Anisocytosis 1+; Band Neutrophils # (Manual) 3.6 K/mm3; Basophils % (Manual) 0 % (0.0-1.8); Eosinophils % (Manual) 0 % (0.0-4.3); Hypochromasia 1+
[2017-06-20] MEDS: ROBINUL FEEDTUBE SCH ×3 (08:00→20:26)
--- NOTE | 2017-06-20 08:20 | Progress Note ---
Assessment and Plan - Patient Problems (1) Acute renal failure with tubular necrosis Current Visit: Yes Status: Acute Plan to address problem: Non-Oliguric Acute renal failure/acute tubular necrosis. Kidney function has worsened. Follow kidney function and electrolytes on diuretics. (2) Acute respiratory failure Current Visit: Yes Status: Acute Qualifiers: Respiratory failure complication: hypoxia Qualified Code(s): J96.01 - Acute respiratory failure with hypoxia Plan to address problem: Continue Ventilator management by primary attending (3) Acute systolic heart failure Current Visit: Yes Status: Acute Plan to address problem: Continue diuretics and beta jas. Decrease the dose of diuretics. Hold spironolactone. ARAM inhibitor/angiotensin receptor jas contraindicated due to her history of allergy (4) Hyperosmolar non-ketotic state in patient with type 2 diabetes mellitus Current Visit: Yes Status: Acute Plan to address problem: Blood sugar management by primary attending (5) Hypertension Current Visit: Yes Status: Acute Qualifiers: Hypertension type: essential hypertension Qualified Code(s): I10 - Essential (primary) hypertension Plan to address problem: Blood pressure has improved. Follow blood pressure on current medications Subjective Date of service: 06/20/17 Principal diagnosis: coma Interval history: Patient seen lying in bed in the intensive care unit. On ventilator. Not communicating. Not following commands. No family at bedside Vent settings CMV 450/12/35% PEEP of 5 Objective - Exam Narrative Exam: Young -[place] female lying in bed on ventilator HEENT: NCAT, Neck: Supple, no venous distention CVS: S1S2 RRR with no murmur, rub or gallop Chest: Coarse breath sounds with Low pitched rhonchi bilaterally Abdomen: Protuberant, soft, nontender, no organomegaly, bowel sounds are present Extremities: 1+ bilateral edema both upper and lower extremities Neuro: Eyes open, not following commands - Vital Signs Vital signs: Vital Signs - 12hr 06/19/17 06/19/17 06/19/17 21:01 22:00 22:33 Temperature Pulse Rate 77 78 77 Respiratory 22 25 H Rate Blood Pressure 121/68 129/72 129/72 O2 Sat by Pulse 98 98 Oximetry 06/19/17 06/19/17 06/19/17 22:34 22:35 22:40 Temperature Pulse Rate 77 78 77 Respiratory 22 17 Rate Blood Pressure 129/72 129/72 O2 Sat by Pulse 98 100 Oximetry 06/19/17 06/19/17 06/19/17 23:01 23:13 23:58 Temperature 98.6 F Pulse Rate 77 76 77 Respiratory 16 18 Rate Blood Pressure 117/60 117/60 117/80 O2 Sat by Pulse 99 98 97 Oximetry 06/20/17 06/20/17 06/20/17 00:00 00:13 00:43 Temperature 98.6 F 98.6 F Pulse Rate 78 79 79 Respiratory 18 17 17 Rate Blood Pressure 120/68 120/68 120/68 O2 Sat by Pulse 98 100 100 Oximetry 06/20/17 06/20/17 06/20/17 01:00 01:13 01:43 Temperature 98.6 F 98.6 F Pulse Rate 77 79 79 Respiratory 24 17 17 Rate Blood Pressure 120/67 120/67 120/67 O2 Sat by Pulse 98 100 100 Oximetry 06/20/17 06/20/17 06/20/17 02:00 02:13 02:43 Temperature 98.6 F 98.6 F Pulse Rate 79 79 79 Respiratory 15 17 17 Rate Blood Pressure 123/67 123/67 124/69 O2 Sat by Pulse 98 100 100 Oximetry 06/20/17 06/20/17 06/20/17 03:00 03:13 03:19 Temperature 98.6 F Pulse Rate 79 79 79 Respiratory 22 17 17 Rate Blood Pressure 124/69 124/69 O2 Sat by Pulse 98 100 100 Oximetry 06/20/17 06/20/17 06/20/17 03:30 03:32 04:00 Temperature 98.2 F Pulse Rate 80 79 Respiratory 19 Rate Blood Pressure 124/69 127/67 O2 Sat by Pulse 98 98 Oximetry 06/20/17 06/20/17 06/20/17 04:59 05:00 05:02 Temperature Pulse Rate 79 79 Respiratory 19 17 Rate Blood Pressure 133/68 O2 Sat by Pulse 98 100 Oximetry 06/20/17 06/20/17 05:08 06:01 Temperature Pulse Rate 80 81 Respiratory 21 Rate Blood Pressure 133/68 135/70 O2 Sat by Pulse 98 Oximetry - Lab 06/20/17 04:34 06/20/17 04:34 Most recent lab results ABG pH 7.483 pH Units (7.350-7.450) H 06/17/17 03:51 ABG pCO2 28.7 mm Hg 06/17/17 03:51 ABG pO2 144.0 mm Hg (80.0-90.0) H 06/17/17 03:51 ABG HCO3 21.1 mmol/L (20.0-26.0) 06/17/17 03:51 ABG O2 Saturation 98.9 % (95.0-99.0) 06/17/17 03:51 Calcium 8.6 mg/dL (8.4-10.2) 06/20/17 04:34 Phosphorus 4.40 mg/dL (2.5-4.5) 06/07/17 07:51 Magnesium 1.70 mg/dL (1.7-2.3) 06/07/17 07:51 Urine Creatinine 119.9 mg/dL (0.1-20.0) H 06/16/17 08:26 Urine Sodium 39 mmol/L 06/16/17 08:26 Urine Total Protein 295 mg/dL (5-11.8) H 06/16/17 08:26
--- NOTE | 2017-06-20 11:19 | Progress Note ---
Assessment and Plan Fever. None today. RUL atelectasis right lung. WBC is still trending up. BAL positive for Klebsiella pneumoniae/Serratia, sensitive to Cefepime VAP. See above. Add Vanco in view of persistent leukocytosis,ID to review Status post cardiac arrest Acute respiratory failure. Metabolic encephalopathy. Appreciate comments. No major changes today. DKA Seizures clinically, she appears to be controlled Recommendations Continue Cefepime Continue vancomycin ,ID consult The patient family approached me after her neurology evaluation update. They' re requesting her to be switched to DO NOT RESUSCITATE CODE STATUS at this time. Probably thinking about terminating at some point after Thursday but this is still under discussion. Discussed with family at the bedside in detail. All questions answered Critical care time was 31 minutes of [id number] evaluation and coordination of care Subjective Date of service: 06/20/17 Principal diagnosis: coma Interval history: unresponsive Objective Vital Signs - 12hr 06/19/17 06/20/17 06/20/17 23:58 00:00 00:13 Temperature 98.6 F 98.6 F Pulse Rate 77 78 79 Respiratory 18 18 17 Rate Blood Pressure 117/80 120/68 120/68 O2 Sat by Pulse 97 98 100 Oximetry 06/20/17 06/20/17 06/20/17 00:43 01:00 01:13 Temperature 98.6 F 98.6 F Pulse Rate 79 77 79 Respiratory 17 24 17 Rate Blood Pressure 120/68 120/67 120/67 O2 Sat by Pulse 100 98 100 Oximetry 06/20/17 06/20/17 06/20/17 01:43 02:00 02:13 Temperature 98.6 F 98.6 F Pulse Rate 79 79 79 Respiratory 17 15 17 Rate Blood Pressure 120/67 123/67 123/67 O2 Sat by Pulse 100 98 100 Oximetry 06/20/17 06/20/17 06/20/17 02:43 03:00 03:13 Temperature 98.6 F 98.6 F Pulse Rate 79 79 79 Respiratory 17 22 17 Rate Blood Pressure 124/69 124/69 124/69 O2 Sat by Pulse 100 98 100 Oximetry 06/20/17 06/20/17 06/20/17 03:19 03:30 03:32 Temperature 98.2 F Pulse Rate 79 80 Respiratory 17 Rate Blood Pressure 124/69 O2 Sat by Pulse 100 98 Oximetry 06/20/17 06/20/17 06/20/17 04:00 04:59 05:00 Temperature Pulse Rate 79 79 79 Respiratory 19 19 Rate Blood Pressure 127/67 133/68 O2 Sat by Pulse 98 98 Oximetry 06/20/17 06/20/17 06/20/17 05:02 05:08 06:01 Temperature Pulse Rate 80 81 Respiratory 17 21 Rate Blood Pressure 133/68 135/70 O2 Sat by Pulse 100 98 Oximetry 06/20/17 06/20/17 06/20/17 07:00 08:00 10:00 Temperature 97.9 F Pulse Rate 80 Respiratory Rate Blood Pressure 136/82 O2 Sat by Pulse 98 98 Oximetry Constitutional: other (mild breathing difficulty) Eyes: non-icteric ENT: oropharynx moist, other (trach in position) Neck: supple, no JVD Effort: normal Ascultation: Right: rhonchi (mild), Bilateral: clear, diminished breath sounds Cardiovascular: regular rate and rhythm Gastrointestinal: normoactive bowel sounds, soft, non-tender Integumentary: normal Extremities: no cyanosis, no edema, pink and warm Neurologic: other (unresponsive, rolls her eyes sporadically no posturing. Unchanged) Psychiatric: other CBC and BMP: 06/20/17 04:34 06/20/17 04:34 ABG, PT/INR, D-dimer: ABG POC ABG pH 7.461 (7.35-7.45) H 06/10/17 03:24 ABG pH 7.483 pH Units (7.350-7.450) H 06/17/17 03:51 POC ABG pCO2 36.6 (35-45) 06/10/17 03:24 ABG pCO2 28.7 mm Hg 06/17/17 03:51 POC ABG pO2 131 (80-105) H 06/10/17 03:24 ABG pO2 144.0 mm Hg (80.0-90.0) H 06/17/17 03:51 POC ABG HCO3 26.1 06/10/17 03:24 POC ABG Total CO2 27 06/10/17 03:24 POC ABG O2 Sat 99 06/10/17 03:24 ABG O2 Saturation 98.9 % (95.0-99.0) 06/17/17 03:51 PT/INR, D-dimer PT 12.4 Sec. (12.2-14.9) 06/09/17 04:18 INR 0.88 (0.87-1.13) 06/09/17 04:18 Abnormal lab findings: Abnormal Labs 05/30/17 05/30/17 05/30/17 07:48 07:48 08:32 WBC 11.5 H RBC Hgb Hct MCH 27 L MCHC RDW 16.3 H Plt Count Lymph % (Auto) Blount % (Auto) Blount # Seg Neutrophils % Seg Neuts % (Manual) Lymphocytes % (Manual) Monocytes % (Manual) Basophils % (Manual) Seg Neutrophils # Seg Neutrophils # Man Lymphocytes # (Manual) Monocytes # (Manual) Basophils # (Manual) POC ABG pH ABG pH POC ABG pCO2 POC ABG pO2 ABG pO2 ABG Base Excess ABG Hemoglobin Oxyhemoglobin Sodium 133 L Potassium Chloride 89.9 L Carbon Dioxide BUN 27 H Creatinine 2.0 H Glucose 741 H* POC Glucose > 500 H Hemoglobin A1c Calcium Phosphorus Magnesium AST Alkaline Phosphatase Total Protein Albumin Urine WBC (Auto) Urine Creatinine Urine Total Protein Crossmatch 05/30/17 05/30/17 05/30/17 08:59 08:59 16:08 WBC 14.5 H RBC Hgb Hct MCH MCHC RDW 16.0 H Plt Count Lymph % (Auto) Blount % (Auto) Blount # Seg Neutrophils % Seg Neuts % (Manual) 95.0 H Lymphocytes % (Manual) 2.0 L Monocytes % (Manual) Basophils % (Manual) 2.0 H Seg Neutrophils # Seg Neutrophils # Man 13.8 H Lymphocytes # (Manual) 0.3 L Monocytes # (Manual) Basophils # (Manual) 0.3 H POC ABG pH ABG pH POC ABG pCO2 POC ABG pO2 ABG pO2 ABG Base Excess ABG Hemoglobin Oxyhemoglobin Sodium 134 L 135 L Potassium 3.2 L Chloride 90.8 L 93.6 L Carbon Dioxide BUN 28 H 30 H Creatinine 2.0 H 2.1 H Glucose 742 H* 567 H* POC Glucose Hemoglobin A1c Calcium Phosphorus Magnesium AST Alkaline Phosphatase 246 H Total Protein 5.6 L Albumin 2.9 L Urine WBC (Auto) Urine Creatinine Urine Total Protein Crossmatch 05/30/17 05/30/17 05/30/17 16:35 17:55 18:59 WBC RBC Hgb Hct MCH MCHC RDW Plt Count Lymph % (Auto) Blount % (Auto) Blount # Seg Neutrophils % Seg Neuts % (Manual) Lymphocytes % (Manual) Monocytes % (Manual) Basophils % (Manual) Seg Neutrophils # Seg Neutrophils # Man Lymphocytes # (Manual) Monocytes # (Manual) Basophils # (Manual) POC ABG pH 7.544 H ABG pH POC ABG pCO2 32.0 L POC ABG pO2 155 H ABG pO2 ABG Base Excess ABG Hemoglobin Oxyhemoglobin Sodium Potassium 3.1 L Chloride 93.9 L Carbon Dioxide BUN 30 H Creatinine 2.0 H Glucose 561 H* POC Glucose 497 H Hemoglobin A1c Calcium Phosphorus Magnesium AST Alkaline Phosphatase Total Protein Albumin Urine WBC (Auto) Urine Creatinine Urine Total Protein Crossmatch 05/30/17 05/30/17 05/30/17 19:31 19:31 21:38 WBC RBC Hgb Hct MCH MCHC RDW Plt Count Lymph % (Auto) Blount % (Auto) Blount # Seg Neutrophils % Seg Neuts % (Manual) Lymphocytes % (Manual) Monocytes % (Manual) Basophils % (Manual) Seg Neutrophils # Seg Neutrophils # Man Lymphocytes # (Manual) Monocytes # (Manual) Basophils # (Manual) POC ABG pH ABG pH POC ABG pCO2 POC ABG pO2 ABG pO2 ABG Base Excess ABG Hemoglobin Oxyhemoglobin Sodium 135 L Potassium 2.9 L* Chloride 93.8 L 95.4 L Carbon Dioxide 20 L BUN 29 H 30 H Creatinine 2.2 H 2.3 H Glucose 478 H 364 H POC Glucose Hemoglobin A1c Calcium Phosphorus 2.20 L D Magnesium 1.40 L AST 42 H Alkaline Phosphatase 177 H Total Protein 5.4 L Albumin 2.4 L Urine WBC (Auto) Urine Creatinine Urine Total Protein Crossmatch 05/30/17 05/31/17 05/31/17 23:06 02:17 05:27 WBC RBC Hgb Hct MCH MCHC RDW Plt Count Lymph % (Auto) Blount % (Auto) Blount # Seg Neutrophils % Seg Neuts % (Manual) Lymphocytes % (Manual) Monocytes % (Manual) Basophils % (Manual) Seg Neutrophils # Seg Neutrophils # Man Lymphocytes # (Manual) Monocytes # (Manual) Basophils # (Manual) POC ABG pH 7.489 H ABG pH POC ABG pCO2 POC ABG pO2 ABG pO2 ABG Base Excess ABG Hemoglobin Oxyhemoglobin Sodium Potassium 3.2 L 3.5 L Chloride Carbon Dioxide BUN 30 H 31 H Creatinine 2.5 H 2.4 H Glucose 288 H 246 H POC Glucose Hemoglobin A1c Calcium 8.3 L Phosphorus Magnesium AST Alkaline Phosphatase Total Protein Albumin Urine WBC (Auto) Urine Creatinine Urine Total Protein Crossmatch 05/31/17 05/31/17 05/31/17 05:45 05:45 05:45 WBC RBC Hgb Hct MCH MCHC RDW Plt Count Lymph % (Auto) Blount % (Auto) Blount # Seg Neutrophils % Seg Neuts % (Manual) Lymphocytes % (Manual) Monocytes % (Manual) Basophils % (Manual) Seg Neutrophils # Seg Neutrophils # Man Lymphocytes # (Manual) Monocytes # (Manual) Basophils # (Manual) POC ABG pH ABG pH POC ABG pCO2 POC ABG pO2 ABG pO2 ABG Base Excess ABG Hemoglobin Oxyhemoglobin Sodium Potassium Chloride Carbon Dioxide BUN 32 H 30 H Creatinine 2.5 H 2.6 H Glucose 266 H 271 H POC Glucose Hemoglobin A1c 9.7 H Calcium 8.3 L 8.2 L Phosphorus Magnesium AST Alkaline Phosphatase 145 H Total Protein 4.7 L Albumin 1.8 L Urine WBC (Auto) Urine Creatinine Urine Total Protein Crossmatch 05/31/17 05/31/17 05/31/17 08:18 09:20 12:18 WBC RBC Hgb Hct MCH MCHC RDW Plt Count Lymph % (Auto) Blount % (Auto) Blount # Seg Neutrophils % Seg Neuts % (Manual) Lymphocytes % (Manual) Monocytes % (Manual) Basophils % (Manual) Seg Neutrophils # Seg Neutrophils # Man Lymphocytes # (Manual) Monocytes # (Manual) Basophils # (Manual) POC ABG pH ABG pH POC ABG pCO2 POC ABG pO2 ABG pO2 ABG Base Excess ABG Hemoglobin Oxyhemoglobin Sodium Potassium Chloride Carbon Dioxide BUN Creatinine Glucose POC Glucose 300 H 254 H 170 H Hemoglobin A1c Calcium Phosphorus Magnesium AST Alkaline Phosphatase Total Protein Albumin Urine WBC (Auto) Urine Creatinine Urine Total Protein Crossmatch 05/31/17 05/31/17 05/31/17 14:09 14:17 14:27 WBC RBC Hgb Hct MCH MCHC RDW Plt Count Lymph % (Auto) Blount % (Auto) Blount # Seg Neutrophils % Seg Neuts % (Manual) Lymphocytes % (Manual) Monocytes % (Manual) Basophils % (Manual) Seg Neutrophils # Seg Neutrophils # Man Lymphocytes # (Manual) Monocytes # (Manual) Basophils # (Manual) POC ABG pH ABG pH POC ABG pCO2 POC ABG pO2 ABG pO2 ABG Base Excess ABG Hemoglobin Oxyhemoglobin Sodium Potassium 3.4 L Chloride 107.1 H Carbon Dioxide BUN 30 H Creatinine 2.6 H Glucose 38 L* POC Glucose < 40 L 189 H Hemoglobin A1c Calcium 7.6 L Phosphorus Magnesium AST Alkaline Phosphatase Total Protein Albumin Urine WBC (Auto) Urine Creatinine Urine Total Protein Crossmatch 05/31/17 05/31/17 05/31/17 15:01 16:01 17:19 WBC RBC Hgb Hct MCH MCHC RDW Plt Count Lymph % (Auto) Blount % (Auto) Blount # Seg Neutrophils % Seg Neuts % (Manual) Lymphocytes % (Manual) Monocytes % (Manual) Basophils % (Manual) Seg Neutrophils # Seg Neutrophils # Man Lymphocytes # (Manual) Monocytes # (Manual) Basophils # (Manual) POC ABG pH ABG pH POC ABG pCO2 POC ABG pO2 ABG pO2 ABG Base Excess ABG Hemoglobin Oxyhemoglobin Sodium Potassium Chloride Carbon Dioxide BUN Creatinine Glucose POC Glucose 130 H 165 H 131 H Hemoglobin A1c Calcium Phosphorus Magnesium AST Alkaline Phosphatase Total Protein Albumin Urine WBC (Auto) Urine Creatinine Urine Total Protein Crossmatch 05/31/17 05/31/17 05/31/17 18:46 19:54 20:36 WBC RBC Hgb Hct MCH MCHC RDW Plt Count Lymph % (Auto) Blount % (Auto) Blount # Seg Neutrophils % Seg Neuts % (Manual) Lymphocytes % (Manual) Monocytes % (Manual) Basophils % (Manual) Seg Neutrophils # Seg Neutrophils # Man Lymphocytes # (Manual) Monocytes # (Manual) Basophils # (Manual) POC ABG pH ABG pH POC ABG pCO2 POC ABG pO2 ABG pO2 ABG Base Excess ABG Hemoglobin Oxyhemoglobin Sodium Potassium Chloride Carbon Dioxide BUN 29 H Creatinine 2.4 H Glucose 124 H POC Glucose 128 H 157 H Hemoglobin A1c Calcium 7.9 L Phosphorus Magnesium AST Alkaline Phosphatase Total Protein Albumin Urine WBC (Auto) Urine Creatinine Urine Total Protein Crossmatch 05/31/17 06/01/17 06/01/17 21:41 03:22 04:06 WBC RBC Hgb Hct MCH MCHC RDW Plt Count Lymph % (Auto) Blount % (Auto) Blount # Seg Neutrophils % Seg Neuts % (Manual) Lymphocytes % (Manual) Monocytes % (Manual) Basophils % (Manual) Seg Neutrophils # Seg Neutrophils # Man Lymphocytes # (Manual) Monocytes # (Manual) Basophils # (Manual) POC ABG pH ABG pH POC ABG pCO2 POC ABG pO2 ABG pO2 ABG Base Excess ABG Hemoglobin Oxyhemoglobin Sodium Potassium Chloride Carbon Dioxide 19 L BUN 29 H Creatinine 2.6 H Glucose 205 H POC Glucose 158 H 251 H Hemoglobin A1c Calcium 7.8 L Phosphorus Magnesium AST Alkaline Phosphatase Total Protein Albumin Urine WBC (Auto) Urine Creatinine Urine Total Protein Crossmatch 06/01/17 06/01/17 06/01/17 04:30 09:15 09:59 WBC 19.7 H RBC Hgb 10.0 L Hct MCH 27 L MCHC RDW 17.1 H Plt Count Lymph % (Auto) Blount % (Auto) Blount # Seg Neutrophils % Seg Neuts % (Manual) Lymphocytes % (Manual) Monocytes % (Manual) Basophils % (Manual) Seg Neutrophils # Seg Neutrophils # Man Lymphocytes # (Manual) Monocytes # (Manual) Basophils # (Manual) POC ABG pH 7.464 H ABG pH POC ABG pCO2 31.3 L POC ABG pO2 ABG pO2 ABG Base Excess ABG Hemoglobin Oxyhemoglobin Sodium Potassium Chloride Carbon Dioxide BUN Creatinine Glucose POC Glucose 330 H Hemoglobin A1c Calcium Phosphorus Magnesium AST Alkaline Phosphatase Total Protein Albumin Urine WBC (Auto) Urine Creatinine Urine Total Protein Crossmatch 06/01/17 06/01/17 06/01/17 11:36 12:25 13:43 WBC RBC Hgb Hct MCH MCHC RDW Plt Count Lymph % (Auto) Blount % (Auto) Blount # Seg Neutrophils % Seg Neuts % (Manual) Lymphocytes % (Manual) Monocytes % (Manual) Basophils % (Manual) Seg Neutrophils # Seg Neutrophils # Man Lymphocytes # (Manual) Monocytes # (Manual) Basophils # (Manual) POC ABG pH ABG pH POC ABG pCO2 POC ABG pO2 ABG pO2 ABG Base Excess ABG Hemoglobin Oxyhemoglobin Sodium Potassium Chloride Carbon Dioxide BUN Creatinine Glucose POC Glucose 431 H 434 H 445 H Hemoglobin A1c Calcium Phosphorus Magnesium AST Alkaline Phosphatase Total Protein Albumin Urine WBC (Auto) Urine Creatinine Urine Total Protein Crossmatch 06/01/17 06/01/17 06/01/17 14:26 15:46 16:03 WBC RBC Hgb Hct MCH MCHC RDW Plt Count Lymph % (Auto) Blount % (Auto) Blount # Seg Neutrophils % Seg Neuts % (Manual) Lymphocytes % (Manual) Monocytes % (Manual) Basophils % (Manual) Seg Neutrophils # Seg Neutrophils # Man Lymphocytes # (Manual) Monocytes # (Manual) Basophils # (Manual) POC ABG pH ABG pH POC ABG pCO2 POC ABG pO2 ABG pO2 ABG Base Excess ABG Hemoglobin Oxyhemoglobin Sodium Potassium Chloride Carbon Dioxide BUN Creatinine Glucose POC Glucose 310 H 292 H 244 H Hemoglobin A1c Calcium Phosphorus Magnesium AST Alkaline Phosphatase Total Protein Albumin Urine WBC (Auto) Urine Creatinine Urine Total Protein Crossmatch 06/01/17 06/01/17 06/01/17 16:59 17:49 19:05 WBC RBC Hgb Hct MCH MCHC RDW Plt Count Lymph % (Auto) Blount % (Auto) Blount # Seg Neutrophils % Seg Neuts % (Manual) Lymphocytes % (Manual) Monocytes % (Manual) Basophils % (Manual) Seg Neutrophils # Seg Neutrophils # Man Lymphocytes # (Manual) Monocytes # (Manual) Basophils # (Manual) POC ABG pH ABG pH POC ABG pCO2 POC ABG pO2 ABG pO2 ABG Base Excess ABG Hemoglobin Oxyhemoglobin Sodium Potassium Chloride Carbon Dioxide BUN Creatinine Glucose POC Glucose 260 H 203 H 156 H Hemoglobin A1c Calcium Phosphorus Magnesium AST Alkaline Phosphatase Total Protein Albumin Urine WBC (Auto) Urine Creatinine Urine Total Protein Crossmatch 06/02/17 06/02/17 06/02/17 00:09 01:06 02:31 WBC RBC Hgb Hct MCH MCHC RDW Plt Count Lymph % (Auto) Blount % (Auto) Blount # Seg Neutrophils % Seg Neuts % (Manual) Lymphocytes % (Manual) Monocytes % (Manual) Basophils % (Manual) Seg Neutrophils # Seg Neutrophils # Man Lymphocytes # (Manual) Monocytes # (Manual) Basophils # (Manual) POC ABG pH ABG pH POC ABG pCO2 POC ABG pO2 ABG pO2 ABG Base Excess ABG Hemoglobin Oxyhemoglobin Sodium Potassium Chloride Carbon Dioxide BUN Creatinine Glucose POC Glucose 137 H 146 H 182 H Hemoglobin A1c Calcium Phosphorus Magnesium AST Alkaline Phosphatase Total Protein Albumin Urine WBC (Auto) Urine Creatinine Urine Total Protein Crossmatch 06/02/17 06/02/17 06/02/17 04:03 04:24 04:24 WBC 21.0 H RBC 3.62 L Hgb Hct 29.6 L MCH MCHC RDW 16.5 H Plt Count Lymph % (Auto) Blount % (Auto) Blount # Seg Neutrophils % Seg Neuts % (Manual) 98.0 H Lymphocytes % (Manual) 1.0 L Monocytes % (Manual) Basophils % (Manual) Seg Neutrophils # Seg Neutrophils # Man 20.6 H Lymphocytes # (Manual) 0.2 L Monocytes # (Manual) Basophils # (Manual) POC ABG pH ABG pH POC ABG pCO2 POC ABG pO2 ABG pO2 ABG Base Excess ABG Hemoglobin Oxyhemoglobin Sodium Potassium Chloride Carbon Dioxide 20 L BUN 36 H Creatinine 2.8 H Glucose 137 H POC Glucose 150 H Hemoglobin A1c Calcium 7.5 L Phosphorus 4.60 H Magnesium 1.50 L AST Alkaline Phosphatase 132 H Total Protein 4.1 L Albumin 1.7 L Urine WBC (Auto) Urine Creatinine Urine Total Protein Crossmatch 06/02/17 06/02/17 06/02/17 05:01 05:14 06:20 WBC RBC Hgb Hct MCH MCHC RDW Plt Count Lymph % (Auto) Blount % (Auto) Blount # Seg Neutrophils % Seg Neuts % (Manual) Lymphocytes % (Manual) Monocytes % (Manual) Basophils % (Manual) Seg Neutrophils # Seg Neutrophils # Man Lymphocytes # (Manual) Monocytes # (Manual) Basophils # (Manual) POC ABG pH 7.517 H ABG pH POC ABG pCO2 28.4 L POC ABG pO2 67 L ABG pO2 ABG Base Excess ABG Hemoglobin Oxyhemoglobin Sodium Potassium Chloride Carbon Dioxide BUN Creatinine Glucose POC Glucose 137 H 163 H Hemoglobin A1c Calcium Phosphorus Magnesium AST Alkaline Phosphatase Total Protein Albumin Urine WBC (Auto) Urine Creatinine Urine Total Protein Crossmatch 06/02/17 06/02/17 06/02/17 07:43 09:40 10:18 WBC RBC Hgb Hct MCH MCHC RDW Plt Count Lymph % (Auto) Blount % (Auto) Blount # Seg Neutrophils % Seg Neuts % (Manual) Lymphocytes % (Manual) Monocytes % (Manual) Basophils % (Manual) Seg Neutrophils # Seg Neutrophils # Man Lymphocytes # (Manual) Monocytes # (Manual) Basophils # (Manual) POC ABG pH ABG pH POC ABG pCO2 POC ABG pO2 ABG pO2 ABG Base Excess ABG Hemoglobin Oxyhemoglobin Sodium Potassium Chloride Carbon Dioxide BUN Creatinine Glucose POC Glucose 135 H 196 H Hemoglobin A1c Calcium Phosphorus Magnesium AST Alkaline Phosphatase Total Protein Albumin Urine WBC (Auto) Urine Creatinine Urine Total Protein < 4 L Crossmatch 06/02/17 06/02/17 06/02/17 10:33 11:55 17:39 WBC RBC Hgb Hct MCH MCHC RDW Plt Count Lymph % (Auto) Blount % (Auto) Blount # Seg Neutrophils % Seg Neuts % (Manual) Lymphocytes % (Manual) Monocytes % (Manual) Basophils % (Manual) Seg Neutrophils # Seg Neutrophils # Man Lymphocytes # (Manual) Monocytes # (Manual) Basophils # (Manual) POC ABG pH ABG pH POC ABG pCO2 POC ABG pO2 ABG pO2 ABG Base Excess ABG Hemoglobin Oxyhemoglobin Sodium Potassium Chloride Carbon Dioxide BUN Creatinine Glucose POC Glucose 188 H 110 H 150 H Hemoglobin A1c Calcium Phosphorus Magnesium AST Alkaline Phosphatase Total Protein Albumin Urine WBC (Auto) Urine Creatinine Urine Total Protein Crossmatch 06/02/17 06/02/17 06/03/17 18:12 21:32 02:02 WBC RBC Hgb Hct MCH MCHC RDW Plt Count Lymph % (Auto) Blount % (Auto) Blount # Seg Neutrophils % Seg Neuts % (Manual) Lymphocytes % (Manual) Monocytes % (Manual) Basophils % (Manual) Seg Neutrophils # Seg Neutrophils # Man Lymphocytes # (Manual) Monocytes # (Manual) Basophils # (Manual) POC ABG pH ABG pH POC ABG pCO2 POC ABG pO2 ABG pO2 ABG Base Excess ABG Hemoglobin Oxyhemoglobin Sodium Potassium Chloride Carbon Dioxide BUN Creatinine Glucose POC Glucose 131 H 143 H 191 H Hemoglobin A1c Calcium Phosphorus Magnesium AST Alkaline Phosphatase Total Protein Albumin Urine WBC (Auto) Urine Creatinine Urine Total Protein Crossmatch 06/03/17 06/03/17 06/03/17 04:14 04:14 05:06 WBC 21.1 H RBC Hgb Hct MCH 27 L MCHC RDW 15.9 H Plt Count 447 H Lymph % (Auto) Blount % (Auto) Blount # Seg Neutrophils % Seg Neuts % (Manual) 94.0 H Lymphocytes % (Manual) 3.0 L Monocytes % (Manual) Basophils % (Manual) Seg Neutrophils # Seg Neutrophils # Man 19.8 H Lymphocytes # (Manual) 0.6 L Monocytes # (Manual) Basophils # (Manual) POC ABG pH ABG pH POC ABG pCO2 28.6 L POC ABG pO2 112 H ABG pO2 ABG Base Excess ABG Hemoglobin Oxyhemoglobin Sodium Potassium Chloride Carbon Dioxide 14 L BUN 45 H Creatinine 2.8 H Glucose 211 H POC Glucose Hemoglobin A1c Calcium 8.0 L Phosphorus Magnesium AST Alkaline Phosphatase Total Protein Albumin Urine WBC (Auto) Urine Creatinine Urine Total Protein Crossmatch 06/03/17 06/03/17 06/03/17 06:00 10:20 13:43 WBC RBC Hgb Hct MCH MCHC RDW Plt Count Lymph % (Auto) Blount % (Auto) Blount # Seg Neutrophils % Seg Neuts % (Manual) Lymphocytes % (Manual) Monocytes % (Manual) Basophils % (Manual) Seg Neutrophils # Seg Neutrophils # Man Lymphocytes # (Manual) Monocytes # (Manual) Basophils # (Manual) POC ABG pH ABG pH POC ABG pCO2 POC ABG pO2 ABG pO2 ABG Base Excess ABG Hemoglobin Oxyhemoglobin Sodium Potassium Chloride Carbon Dioxide BUN Creatinine Glucose POC Glucose 224 H 226 H 296 H Hemoglobin A1c Calcium Phosphorus Magnesium AST Alkaline Phosphatase Total Protein Albumin Urine WBC (Auto) Urine Creatinine Urine Total Protein Crossmatch 06/03/17 06/03/17 06/03/17 17:38 19:23 20:45 WBC RBC Hgb Hct MCH MCHC RDW Plt Count Lymph % (Auto) Blount % (Auto) Blount # Seg Neutrophils % Seg Neuts % (Manual) Lymphocytes % (Manual) Monocytes % (Manual) Basophils % (Manual) Seg Neutrophils # Seg Neutrophils # Man Lymphocytes # (Manual) Monocytes # (Manual) Basophils # (Manual) POC ABG pH ABG pH POC ABG pCO2 POC ABG pO2 ABG pO2 ABG Base Excess ABG Hemoglobin Oxyhemoglobin Sodium Potassium Chloride Carbon Dioxide BUN Creatinine Glucose POC Glucose 295 H 275 H 338 H Hemoglobin A1c Calcium Phosphorus Magnesium AST Alkaline Phosphatase Total Protein Albumin Urine WBC (Auto) Urine Creatinine Urine Total Protein Crossmatch 06/03/17 06/03/17 06/04/17 21:50 23:08 00:16 WBC RBC Hgb Hct MCH MCHC RDW Plt Count Lymph % (Auto) Blount % (Auto) Blount # Seg Neutrophils % Seg Neuts % (Manual) Lymphocytes % (Manual) Monocytes % (Manual) Basophils % (Manual) Seg Neutrophils # Seg Neutrophils # Man Lymphocytes # (Manual) Monocytes # (Manual) Basophils # (Manual) POC ABG pH ABG pH POC ABG pCO2 POC ABG pO2 ABG pO2 ABG Base Excess ABG Hemoglobin Oxyhemoglobin Sodium Potassium Chloride Carbon Dioxide BUN Creatinine Glucose POC Glucose 223 H 214 H 226 H Hemoglobin A1c Calcium Phosphorus Magnesium AST Alkaline Phosphatase Total Protein Albumin Urine WBC (Auto) Urine Creatinine Urine Total Protein Crossmatch 06/04/17 06/04/17 06/04/17 01:05 02:07 03:27 WBC RBC Hgb Hct MCH MCHC RDW Plt Count Lymph % (Auto) Blount % (Auto) Blount # Seg Neutrophils % Seg Neuts % (Manual) Lymphocytes % (Manual) Monocytes % (Manual) Basophils % (Manual) Seg Neutrophils # Seg Neutrophils # Man Lymphocytes # (Manual) Monocytes # (Manual) Basophils # (Manual) POC ABG pH ABG pH POC ABG pCO2 POC ABG pO2 ABG pO2 ABG Base Excess ABG Hemoglobin Oxyhemoglobin Sodium Potassium Chloride Carbon Dioxide BUN Creatinine Glucose POC Glucose 217 H 229 H 185 H Hemoglobin A1c Calcium Phosphorus Magnesium AST Alkaline Phosphatase Total Protein Albumin Urine WBC (Auto) Urine Creatinine Urine Total Protein Crossmatch 06/04/17 06/04/17 06/04/17 03:52 04:05 04:05 WBC 19.6 H RBC Hgb Hct MCH 26 L MCHC RDW 15.6 H Plt Count 564 H Lymph % (Auto) 7.3 L Blount % (Auto) 10.8 H Blount # 2.1 H Seg Neutrophils % 81.4 H Seg Neuts % (Manual) Lymphocytes % (Manual) Monocytes % (Manual) Basophils % (Manual) Seg Neutrophils # 15.9 H Seg Neutrophils # Man Lymphocytes # (Manual) Monocytes # (Manual) Basophils # (Manual) POC ABG pH ABG pH POC ABG pCO2 POC ABG pO2 ABG pO2 ABG Base Excess ABG Hemoglobin Oxyhemoglobin Sodium Potassium Chloride Carbon Dioxide 17 L BUN 52 H Creatinine 2.5 H Glucose 163 H POC Glucose 181 H Hemoglobin A1c Calcium 7.9 L Phosphorus Magnesium AST Alkaline Phosphatase Total Protein Albumin Urine WBC (Auto) Urine Creatinine Urine Total Protein Crossmatch 06/04/17 06/04/17 06/04/17 04:56 05:39 06:12 WBC RBC Hgb Hct MCH MCHC RDW Plt Count Lymph % (Auto) Blount % (Auto) Blount # Seg Neutrophils % Seg Neuts % (Manual) Lymphocytes % (Manual) Monocytes % (Manual) Basophils % (Manual) Seg Neutrophils # Seg Neutrophils # Man Lymphocytes # (Manual) Monocytes # (Manual) Basophils # (Manual) POC ABG pH 7.486 H ABG pH POC ABG pCO2 26.8 L POC ABG pO2 ABG pO2 ABG Base Excess ABG Hemoglobin Oxyhemoglobin Sodium Potassium Chloride Carbon Dioxide BUN Creatinine Glucose POC Glucose 208 H 225 H Hemoglobin A1c Calcium Phosphorus Magnesium AST Alkaline Phosphatase Total Protein Albumin Urine WBC (Auto) Urine Creatinine Urine Total Protein Crossmatch 06/04/17 06/04/17 06/04/17 07:07 08:06 09:15 WBC RBC Hgb Hct MCH MCHC RDW Plt Count Lymph % (Auto) Blount % (Auto) Blount # Seg Neutrophils % Seg Neuts % (Manual) Lymphocytes % (Manual) Monocytes % (Manual) Basophils % (Manual) Seg Neutrophils # Seg Neutrophils # Man Lymphocytes # (Manual) Monocytes # (Manual) Basophils # (Manual) POC ABG pH ABG pH POC ABG pCO2 POC ABG pO2 ABG pO2 ABG Base Excess ABG Hemoglobin Oxyhemoglobin Sodium Potassium Chloride Carbon Dioxide BUN Creatinine Glucose POC Glucose 201 H 171 H 178 H Hemoglobin A1c Calcium Phosphorus Magnesium AST Alkaline Phosphatase Total Protein Albumin Urine WBC (Auto) Urine Creatinine Urine Total Protein Crossmatch 06/04/17 06/04/17 06/04/17 10:16 12:22 17:21 WBC RBC Hgb Hct MCH MCHC RDW Plt Count Lymph % (Auto) Blount % (Auto) Blount # Seg Neutrophils % Seg Neuts % (Manual) Lymphocytes % (Manual) Monocytes % (Manual) Basophils % (Manual) Seg Neutrophils # Seg Neutrophils # Man Lymphocytes # (Manual) Monocytes # (Manual) Basophils # (Manual) POC ABG pH ABG pH POC ABG pCO2 POC ABG pO2 ABG pO2 ABG Base Excess ABG Hemoglobin Oxyhemoglobin Sodium Potassium Chloride Carbon Dioxide BUN Creatinine Glucose POC Glucose 191 H 188 H Hemoglobin A1c Calcium Phosphorus Magnesium AST Alkaline Phosphatase Total Protein Albumin Urine WBC (Auto) Urine Creatinine 78.7 H Urine Total Protein 197 H Crossmatch 06/04/17 06/04/17 06/05/17 17:56 22:10 00:00 WBC RBC Hgb Hct MCH MCHC RDW Plt Count Lymph % (Auto) Blount % (Auto) Blount # Seg Neutrophils % Seg Neuts % (Manual) Lymphocytes % (Manual) Monocytes % (Manual) Basophils % (Manual) Seg Neutrophils # Seg Neutrophils # Man Lymphocytes # (Manual) Monocytes # (Manual) Basophils # (Manual) POC ABG pH ABG pH POC ABG pCO2 POC ABG pO2 ABG pO2 ABG Base Excess ABG Hemoglobin Oxyhemoglobin Sodium Potassium Chloride Carbon Dioxide 17 L BUN 55 H Creatinine 2.3 H Glucose 300 H POC Glucose 266 H 337 H Hemoglobin A1c Calcium 7.4 L Phosphorus Magnesium AST Alkaline Phosphatase Total Protein Albumin Urine WBC (Auto) Urine Creatinine Urine Total Protein Crossmatch 06/05/17 06/05/17 06/05/17 03:26 04:11 05:13 WBC RBC Hgb Hct MCH MCHC RDW Plt Count Lymph % (Auto) Blount % (Auto) Blount # Seg Neutrophils % Seg Neuts % (Manual) Lymphocytes % (Manual) Monocytes % (Manual) Basophils % (Manual) Seg Neutrophils # Seg Neutrophils # Man Lymphocytes # (Manual) Monocytes # (Manual) Basophils # (Manual) POC ABG pH 7.586 H ABG pH POC ABG pCO2 22.6 L POC ABG pO2 179 H ABG pO2 ABG Base Excess ABG Hemoglobin Oxyhemoglobin Sodium Potassium Chloride Carbon Dioxide 19 L BUN 55 H Creatinine 2.2 H Glucose 226 H POC Glucose 220 H Hemoglobin A1c Calcium 7.7 L Phosphorus Magnesium AST Alkaline Phosphatase Total Protein Albumin Urine WBC (Auto) Urine Creatinine Urine Total Protein Crossmatch 06/05/17 06/05/17 06/05/17 12:42 18:24 21:23 WBC RBC Hgb Hct MCH MCHC RDW Plt Count Lymph % (Auto) Blount % (Auto) Blount # Seg Neutrophils % Seg Neuts % (Manual) Lymphocytes % (Manual) Monocytes % (Manual) Basophils % (Manual) Seg Neutrophils # Seg Neutrophils # Man Lymphocytes # (Manual) Monocytes # (Manual) Basophils # (Manual) POC ABG pH ABG pH POC ABG pCO2 POC ABG pO2 ABG pO2 ABG Base Excess ABG Hemoglobin Oxyhemoglobin Sodium Potassium Chloride Carbon Dioxide BUN Creatinine Glucose POC Glucose 168 H 121 H 166 H Hemoglobin A1c Calcium Phosphorus Magnesium AST Alkaline Phosphatase Total Protein Albumin Urine WBC (Auto) Urine Creatinine Urine Total Protein Crossmatch 06/06/17 06/06/17 06/06/17 00:14 04:11 06:19 WBC RBC Hgb Hct MCH MCHC RDW Plt Count Lymph % (Auto) Blount % (Auto) Blount # Seg Neutrophils % Seg Neuts % (Manual) Lymphocytes % (Manual) Monocytes % (Manual) Basophils % (Manual) Seg Neutrophils # Seg Neutrophils # Man Lymphocytes # (Manual) Monocytes # (Manual) Basophils # (Manual) POC ABG pH ABG pH POC ABG pCO2 33.0 L POC ABG pO2 ABG pO2 ABG Base Excess ABG Hemoglobin Oxyhemoglobin Sodium Potassium Chloride Carbon Dioxide BUN Creatinine Glucose POC Glucose 179 H 180 H Hemoglobin A1c Calcium Phosphorus Magnesium AST Alkaline Phosphatase Total Protein Albumin Urine WBC (Auto) Urine Creatinine Urine Total Protein Crossmatch 06/06/17 06/06/17 06/06/17 12:19 18:38 20:01 WBC RBC Hgb Hct MCH MCHC RDW Plt Count Lymph % (Auto) Blount % (Auto) Blount # Seg Neutrophils % Seg Neuts % (Manual) Lymphocytes % (Manual) Monocytes % (Manual) Basophils % (Manual) Seg Neutrophils # Seg Neutrophils # Man Lymphocytes # (Manual) Monocytes # (Manual) Basophils # (Manual) POC ABG pH ABG pH POC ABG pCO2 POC ABG pO2 ABG pO2 ABG Base Excess ABG Hemoglobin Oxyhemoglobin Sodium Potassium Chloride Carbon Dioxide BUN Creatinine Glucose POC Glucose 123 H 56 L 65 L Hemoglobin A1c Calcium Phosphorus Magnesium AST Alkaline Phosphatase Total Protein Albumin Urine WBC (Auto) Urine Creatinine Urine Total Protein Crossmatch 06/06/17 06/07/17 06/07/17 23:51 04:25 05:29 WBC RBC Hgb Hct MCH MCHC RDW Plt Count Lymph % (Auto) Blount % (Auto) Blount # Seg Neutrophils % Seg Neuts % (Manual) Lymphocytes % (Manual) Monocytes % (Manual) Basophils % (Manual) Seg Neutrophils # Seg Neutrophils # Man Lymphocytes # (Manual) Monocytes # (Manual) Basophils # (Manual) POC ABG pH 7.470 H ABG pH POC ABG pCO2 33.6 L POC ABG pO2 ABG pO2 ABG Base Excess ABG Hemoglobin Oxyhemoglobin Sodium Potassium Chloride Carbon Dioxide BUN Creatinine Glucose POC Glucose 118 H 183 H Hemoglobin A1c Calcium Phosphorus Magnesium AST Alkaline Phosphatase Total Protein Albumin Urine WBC (Auto) Urine Creatinine Urine Total Protein Crossmatch 06/07/17 06/07/17 06/07/17 07:51 12:00 18:08 WBC RBC Hgb Hct MCH MCHC RDW Plt Count Lymph % (Auto) Blount % (Auto) Blount # Seg Neutrophils % Seg Neuts % (Manual) Lymphocytes % (Manual) Monocytes % (Manual) Basophils % (Manual) Seg Neutrophils # Seg Neutrophils # Man Lymphocytes # (Manual) Monocytes # (Manual) Basophils # (Manual) POC ABG pH ABG pH POC ABG pCO2 POC ABG pO2 ABG pO2 ABG Base Excess ABG Hemoglobin Oxyhemoglobin Sodium 135 L Potassium Chloride Carbon Dioxide 21 L BUN 50 H Creatinine 1.8 H Glucose 232 H POC Glucose 361 H 249 H Hemoglobin A1c Calcium 8.0 L Phosphorus Magnesium AST Alkaline Phosphatase Total Protein Albumin Urine WBC (Auto) Urine Creatinine Urine Total Protein Crossmatch 06/07/17 06/08/17 06/08/17 23:53 05:25 11:50 WBC RBC Hgb Hct MCH MCHC RDW Plt Count Lymph % (Auto) Blount % (Auto) Blount # Seg Neutrophils % Seg Neuts % (Manual) Lymphocytes % (Manual) Monocytes % (Manual) Basophils % (Manual) Seg Neutrophils # Seg Neutrophils # Man Lymphocytes # (Manual) Monocytes # (Manual) Basophils # (Manual) POC ABG pH ABG pH POC ABG pCO2 POC ABG pO2 ABG pO2 ABG Base Excess ABG Hemoglobin Oxyhemoglobin Sodium Potassium Chloride Carbon Dioxide BUN Creatinine Glucose POC Glucose 190 H 136 H 166 H Hemoglobin A1c Calcium Phosphorus Magnesium AST Alkaline Phosphatase Total Protein Albumin Urine WBC (Auto) Urine Creatinine Urine Total Protein Crossmatch 06/08/17 06/08/17 06/08/17 14:20 14:20 19:05 WBC 15.7 H RBC 3.49 L Hgb 9.4 L Hct 27.9 L MCH 27 L MCHC RDW 15.3 H Plt Count 590 H Lymph % (Auto) Blount % (Auto) Blount # Seg Neutrophils % Seg Neuts % (Manual) Lymphocytes % (Manual) Monocytes % (Manual) Basophils % (Manual) Seg Neutrophils # Seg Neutrophils # Man Lymphocytes # (Manual) Monocytes # (Manual) Basophils # (Manual) POC ABG pH ABG pH POC ABG pCO2 POC ABG pO2 ABG pO2 ABG Base Excess ABG Hemoglobin Oxyhemoglobin Sodium Potassium Chloride Carbon Dioxide BUN 55 H Creatinine 1.7 H Glucose 117 H POC Glucose 135 H Hemoglobin A1c Calcium Phosphorus Magnesium AST Alkaline Phosphatase Total Protein Albumin Urine WBC (Auto) Urine Creatinine Urine Total Protein Crossmatch 06/08/17 06/08/17 06/09/17 21:52 23:55 04:18 WBC RBC Hgb Hct MCH MCHC RDW Plt Count Lymph % (Auto) Blount % (Auto) Blount # Seg Neutrophils % Seg Neuts % (Manual) Lymphocytes % (Manual) Monocytes % (Manual) Basophils % (Manual) Seg Neutrophils # Seg Neutrophils # Man Lymphocytes # (Manual) Monocytes # (Manual) Basophils # (Manual) POC ABG pH ABG pH POC ABG pCO2 POC ABG pO2 ABG pO2 ABG Base Excess ABG Hemoglobin Oxyhemoglobin Sodium Potassium Chloride Carbon Dioxide BUN 51 H Creatinine 1.6 H Glucose POC Glucose 186 H 209 H Hemoglobin A1c Calcium Phosphorus Magnesium AST Alkaline Phosphatase Total Protein Albumin Urine WBC (Auto) Urine Creatinine Urine Total Protein Crossmatch 06/09/17 06/09/17 06/09/17 09:56 12:42 18:09 WBC RBC Hgb Hct MCH MCHC RDW Plt Count Lymph % (Auto) Blount % (Auto) [place]ount # Seg Neutrophils % Seg Neuts % (Manual) Lymphocytes % (Manual) Monocytes % (Manual) Basophils % (Manual) Seg Neutrophils # Seg Neutrophils # Man Lymphocytes # (Manual) Monocytes # (Manual) Basophils # (Manual) POC ABG pH ABG pH POC ABG pCO2 POC ABG pO2 ABG pO2 ABG Base Excess ABG Hemoglobin Oxyhemoglobin Sodium Potassium Chloride Carbon Dioxide BUN Creatinine Glucose POC Glucose 63 L 142 H 166 H Hemoglobin A1c Calcium Phosphorus Magnesium AST Alkaline Phosphatase Total Protein Albumin Urine WBC (Auto) Urine Creatinine Urine Total Protein Crossmatch 06/09/17 06/10/17 06/10/17 23:39 03:24 04:28 WBC 15.1 H RBC 2.99 L Hgb 8.1 L Hct 23.6 L MCH 27 L MCHC 35 H RDW 15.4 H Plt Count 500 H Lymph % (Auto) Blount % (Auto) [place]ount # Seg Neutrophils % Seg Neuts % (Manual) Lymphocytes % (Manual) Monocytes % (Manual) Basophils % (Manual) Seg Neutrophils # Seg Neutrophils # Man Lymphocytes # (Manual) Monocytes # (Manual) Basophils # (Manual) POC ABG pH 7.461 H ABG pH POC ABG pCO2 POC ABG pO2 131 H ABG pO2 ABG Base Excess ABG Hemoglobin Oxyhemoglobin Sodium Potassium Chloride Carbon Dioxide BUN Creatinine Glucose POC Glucose 284 H Hemoglobin A1c Calcium Phosphorus Magnesium AST Alkaline Phosphatase Total Protein Albumin Urine WBC (Auto) Urine Creatinine Urine Total Protein Crossmatch 06/10/17 06/10/17 06/10/17 04:28 05:10 12:41 WBC RBC Hgb Hct MCH MCHC RDW Plt Count Lymph % (Auto) Blount % (Auto) [place]ount # Seg Neutrophils % Seg Neuts % (Manual) Lymphocytes % (Manual) Monocytes % (Manual) Basophils % (Manual) Seg Neutrophils # Seg Neutrophils # Man Lymphocytes # (Manual) Monocytes # (Manual) Basophils # (Manual) POC ABG pH ABG pH POC ABG pCO2 POC ABG pO2 ABG pO2 ABG Base Excess ABG Hemoglobin Oxyhemoglobin Sodium Potassium Chloride Carbon Dioxide BUN 53 H Creatinine 1.8 H Glucose 185 H POC Glucose 190 H 50 L Hemoglobin A1c Calcium Phosphorus Magnesium AST Alkaline Phosphatase Total Protein Albumin Urine WBC (Auto) Urine Creatinine Urine Total Protein Crossmatch 06/10/17 06/10/17 06/11/17 14:35 18:31 00:09 WBC RBC Hgb Hct MCH MCHC RDW Plt Count Lymph % (Auto) Blount % (Auto) [place]ount # Seg Neutrophils % Seg Neuts % (Manual) Lymphocytes % (Manual) Monocytes % (Manual) Basophils % (Manual) Seg Neutrophils # Seg Neutrophils # Man Lymphocytes # (Manual) Monocytes # (Manual) Basophils # (Manual) POC ABG pH ABG pH POC ABG pCO2 POC ABG pO2 ABG pO2 ABG Base Excess ABG Hemoglobin Oxyhemoglobin Sodium Potassium Chloride Carbon Dioxide BUN Creatinine Glucose POC Glucose 58 L 55 L 126 H Hemoglobin A1c Calcium Phosphorus Magnesium AST Alkaline Phosphatase Total Protein Albumin Urine WBC (Auto) Urine Creatinine Urine Total Protein Crossmatch 06/11/17 06/11/17 06/11/17 05:32 06:01 06:03 WBC 15.6 H RBC 3.03 L Hgb 8.3 L Hct 24.0 L MCH MCHC 35 H RDW Plt Count 492 H Lymph % (Auto) Blount % (Auto) [place] # Seg Neutrophils % Seg Neuts % (Manual) Lymphocytes % (Manual) Monocytes % (Manual) Basophils % (Manual) Seg Neutrophils # Seg Neutrophils # Man Lymphocytes # (Manual) Monocytes # (Manual) Basophils # (Manual) POC ABG pH ABG pH POC ABG pCO2 POC ABG pO2 ABG pO2 ABG Base Excess ABG Hemoglobin Oxyhemoglobin Sodium Potassium Chloride Carbon Dioxide BUN 55 H Creatinine 1.8 H Glucose 228 H POC Glucose 219 H Hemoglobin A1c Calcium Phosphorus Magnesium AST Alkaline Phosphatase Total Protein Albumin Urine WBC (Auto) Urine Creatinine Urine Total Protein Crossmatch 06/11/17 06/11/17 06/12/17 11:53 18:31 04:24 WBC 17.4 H RBC 2.90 L Hgb 8.0 L Hct 23.0 L MCH MCHC 35 H RDW Plt Count 460 H Lymph % (Auto) Blount % (Auto) [place] # Seg Neutrophils % Seg Neuts % (Manual) Lymphocytes % (Manual) Monocytes % (Manual) Basophils % (Manual) Seg Neutrophils # Seg Neutrophils # Man Lymphocytes # (Manual) Monocytes # (Manual) Basophils # (Manual) POC ABG pH ABG pH POC ABG pCO2 POC ABG pO2 ABG pO2 ABG Base Excess ABG Hemoglobin Oxyhemoglobin Sodium Potassium Chloride Carbon Dioxide BUN Creatinine Glucose POC Glucose 220 H 254 H Hemoglobin A1c Calcium Phosphorus Magnesium AST Alkaline Phosphatase Total Protein Albumin Urine WBC (Auto) Urine Creatinine Urine Total Protein Crossmatch 06/12/17 06/12/17 06/12/17 05:37 05:40 06:00 WBC RBC Hgb Hct MCH MCHC RDW Plt Count Lymph % (Auto) Blount % (Auto) [place]ount # Seg Neutrophils % Seg Neuts % (Manual) Lymphocytes % (Manual) Monocytes % (Manual) Basophils % (Manual) Seg Neutrophils # Seg Neutrophils # Man Lymphocytes # (Manual) Monocytes # (Manual) Basophils # (Manual) POC ABG pH ABG pH POC ABG pCO2 POC ABG pO2 ABG pO2 ABG Base Excess ABG Hemoglobin Oxyhemoglobin Sodium Potassium Chloride Carbon Dioxide BUN Creatinine Glucose 41 L POC Glucose < 40 L < 40 L Hemoglobin A1c Calcium Phosphorus Magnesium AST Alkaline Phosphatase Total Protein Albumin Urine WBC (Auto) Urine Creatinine Urine Total Protein Crossmatch 06/12/17 06/12/17 06/12/17 07:09 07:51 10:06 WBC RBC Hgb Hct MCH MCHC RDW Plt Count Lymph % (Auto) Blount % (Auto) [place]ount # Seg Neutrophils % Seg Neuts % (Manual) Lymphocytes % (Manual) Monocytes % (Manual) Basophils % (Manual) Seg Neutrophils # Seg Neutrophils # Man Lymphocytes # (Manual) Monocytes # (Manual) Basophils # (Manual) POC ABG pH ABG pH POC ABG pCO2 POC ABG pO2 ABG pO2 ABG Base Excess ABG Hemoglobin Oxyhemoglobin Sodium Potassium Chloride Carbon Dioxide BUN Creatinine Glucose POC Glucose 64 L 42 L 61 L Hemoglobin A1c Calcium Phosphorus Magnesium AST Alkaline Phosphatase Total Protein Albumin Urine WBC (Auto) Urine Creatinine Urine Total Protein Crossmatch 03/06/12/17 06/12/17 11:16 14:04 18:03 WBC RBC Hgb Hct MCH MCHC RDW Plt Count Lymph % (Auto) Blount % (Auto) [place] # Seg Neutrophils % Seg Neuts % (Manual) Lymphocytes % (Manual) Monocytes % (Manual) Basophils % (Manual) Seg Neutrophils # Seg Neutrophils # Man Lymphocytes # (Manual) Monocytes # (Manual) Basophils # (Manual) POC ABG pH ABG pH POC ABG pCO2 POC ABG pO2 ABG pO2 ABG Base Excess ABG Hemoglobin Oxyhemoglobin Sodium Potassium Chloride Carbon Dioxide BUN Creatinine Glucose POC Glucose 67 L 112 H 116 H Hemoglobin A1c Calcium Phosphorus Magnesium AST Alkaline Phosphatase Total Protein Albumin Urine WBC (Auto) Urine Creatinine Urine Total Protein Crossmatch 06/12/17 06/12/17 06/12/17 19:30 20:34 21:01 WBC RBC Hgb Hct MCH MCHC RDW Plt Count Lymph % (Auto) [place]ount % (Auto) [place]ount # Seg Neutrophils % Seg Neuts % (Manual) Lymphocytes % (Manual) Monocytes % (Manual) Basophils % (Manual) Seg Neutrophils # Seg Neutrophils # Man Lymphocytes # (Manual) Monocytes # (Manual) Basophils # (Manual) POC ABG pH ABG pH POC ABG pCO2 POC ABG pO2 ABG pO2 ABG Base Excess ABG Hemoglobin Oxyhemoglobin Sodium Potassium Chloride Carbon Dioxide BUN Creatinine Glucose POC Glucose 156 H 172 H 174 H Hemoglobin A1c Calcium Phosphorus Magnesium AST Alkaline Phosphatase Total Protein Albumin Urine WBC (Auto) Urine Creatinine Urine Total Protein Crossmatch 06/12/17 06/12/17 06/13/17 22:00 23:23 00:27 WBC RBC Hgb Hct MCH MCHC RDW Plt Count Lymph % (Auto) [place]ount % (Auto) [place]ount # Seg Neutrophils % Seg Neuts % (Manual) Lymphocytes % (Manual) Monocytes % (Manual) Basophils % (Manual) Seg Neutrophils # Seg Neutrophils # Man Lymphocytes # (Manual) Monocytes # (Manual) Basophils # (Manual) POC ABG pH ABG pH POC ABG pCO2 POC ABG pO2 ABG pO2 ABG Base Excess ABG Hemoglobin Oxyhemoglobin Sodium Potassium Chloride Carbon Dioxide BUN Creatinine Glucose POC Glucose 240 H 286 H 182 H Hemoglobin A1c Calcium Phosphorus Magnesium AST Alkaline Phosphatase Total Protein Albumin Urine WBC (Auto) Urine Creatinine Urine Total Protein Crossmatch 06/13/17 06/13/17 06/13/17 01:28 02:10 03:15 WBC RBC Hgb Hct MCH MCHC RDW Plt Count Lymph % (Auto) Blount % (Auto) [place]ount # Seg Neutrophils % Seg Neuts % (Manual) Lymphocytes % (Manual) Monocytes % (Manual) Basophils % (Manual) Seg Neutrophils # Seg Neutrophils # Man Lymphocytes # (Manual) Monocytes # (Manual) Basophils # (Manual) POC ABG pH ABG pH POC ABG pCO2 POC ABG pO2 ABG pO2 ABG Base Excess ABG Hemoglobin Oxyhemoglobin Sodium Potassium Chloride Carbon Dioxide BUN Creatinine Glucose POC Glucose 304 H 277 H 318 H Hemoglobin A1c Calcium Phosphorus Magnesium AST Alkaline Phosphatase Total Protein Albumin Urine WBC (Auto) Urine Creatinine Urine Total Protein Crossmatch 06/13/17 06/13/17 06/13/17 04:15 05:10 05:38 WBC RBC Hgb Hct MCH MCHC RDW Plt Count Lymph % (Auto) Blount % (Auto) [place]ount # Seg Neutrophils % Seg Neuts % (Manual) Lymphocytes % (Manual) Monocytes % (Manual) Basophils % (Manual) Seg Neutrophils # Seg Neutrophils # Man Lymphocytes # (Manual) Monocytes # (Manual) Basophils # (Manual) POC ABG pH ABG pH POC ABG pCO2 POC ABG pO2 ABG pO2 ABG Base Excess ABG Hemoglobin Oxyhemoglobin Sodium Potassium Chloride Carbon Dioxide BUN Creatinine Glucose POC Glucose 294 H 275 H 315 H Hemoglobin A1c Calcium Phosphorus Magnesium AST Alkaline Phosphatase Total Protein Albumin Urine WBC (Auto) Urine Creatinine Urine Total Protein Crossmatch 06/13/17 06/13/17 06/13/17 06:21 12:02 16:52 WBC RBC Hgb Hct MCH MCHC RDW Plt Count Lymph % (Auto) Blount % (Auto) [place]ount # Seg Neutrophils % Seg Neuts % (Manual) Lymphocytes % (Manual) Monocytes % (Manual) Basophils % (Manual) Seg Neutrophils # Seg Neutrophils # Man Lymphocytes # (Manual) Monocytes # (Manual) Basophils # (Manual) POC ABG pH ABG pH POC ABG pCO2 POC ABG pO2 ABG pO2 ABG Base Excess ABG Hemoglobin Oxyhemoglobin Sodium Potassium Chloride Carbon Dioxide BUN Creatinine Glucose POC Glucose 350 H 333 H 343 H Hemoglobin A1c Calcium Phosphorus Magnesium AST Alkaline Phosphatase Total Protein Albumin Urine WBC (Auto) Urine Creatinine Urine Total Protein Crossmatch 06/14/17 06/14/17 06/14/17 00:01 04:18 04:18 WBC 29.6 H RBC 2.81 L Hgb 7.8 L Hct 23.2 L MCH MCHC RDW 15.3 H Plt Count Lymph % (Auto) Blount % (Auto) Blount # Seg Neutrophils % Seg Neuts % (Manual) Lymphocytes % (Manual) Monocytes % (Manual) Basophils % (Manual) Seg Neutrophils # Seg Neutrophils # Man Lymphocytes # (Manual) Monocytes # (Manual) Basophils # (Manual) POC ABG pH ABG pH POC ABG pCO2 POC ABG pO2 ABG pO2 ABG Base Excess ABG Hemoglobin Oxyhemoglobin Sodium Potassium Chloride Carbon Dioxide 20 L BUN 75 H Creatinine 2.2 H Glucose 364 H POC Glucose 297 H Hemoglobin A1c Calcium Phosphorus Magnesium AST Alkaline Phosphatase Total Protein Albumin Urine WBC (Auto) Urine Creatinine Urine Total Protein Crossmatch 06/14/17 06/14/17 06/14/17 05:10 08:25 11:46 WBC RBC Hgb Hct MCH MCHC RDW Plt Count Lymph % (Auto) Blount % (Auto) Blount # Seg Neutrophils % Seg Neuts % (Manual) Lymphocytes % (Manual) Monocytes % (Manual) Basophils % (Manual) Seg Neutrophils # Seg Neutrophils # Man Lymphocytes # (Manual) Monocytes # (Manual) Basophils # (Manual) POC ABG pH ABG pH POC ABG pCO2 POC ABG pO2 ABG pO2 ABG Base Excess ABG Hemoglobin Oxyhemoglobin Sodium Potassium Chloride Carbon Dioxide BUN Creatinine Glucose POC Glucose 350 H 322 H 391 H Hemoglobin A1c Calcium Phosphorus Magnesium AST Alkaline Phosphatase Total Protein Albumin Urine WBC (Auto) Urine Creatinine Urine Total Protein Crossmatch 06/14/17 06/15/17 06/15/17 18:04 00:16 11:20 WBC RBC Hgb Hct MCH MCHC RDW Plt Count Lymph % (Auto) Blount % (Auto) Blount # Seg Neutrophils % Seg Neuts % (Manual) Lymphocytes % (Manual) Monocytes % (Manual) Basophils % (Manual) Seg Neutrophils # Seg Neutrophils # Man Lymphocytes # (Manual) Monocytes # (Manual) Basophils # (Manual) POC ABG pH ABG pH POC ABG pCO2 POC ABG pO2 ABG pO2 ABG Base Excess ABG Hemoglobin Oxyhemoglobin Sodium Potassium Chloride Carbon Dioxide 21 L BUN 88 H Creatinine 2.7 H Glucose 302 H POC Glucose 384 H 435 H Hemoglobin A1c Calcium Phosphorus Magnesium AST Alkaline Phosphatase Total Protein Albumin Urine WBC (Auto) Urine Creatinine Urine Total Protein Crossmatch 0406/15/17 06/15/17 11:47 17:35 21:33 WBC RBC Hgb Hct MCH MCHC RDW Plt Count Lymph % (Auto) Blount % (Auto) Blount # Seg Neutrophils % Seg Neuts % (Manual) Lymphocytes % (Manual) Monocytes % (Manual) Basophils % (Manual) Seg Neutrophils # Seg Neutrophils # Man Lymphocytes # (Manual) Monocytes # (Manual) Basophils # (Manual) POC ABG pH ABG pH POC ABG pCO2 POC ABG pO2 ABG pO2 ABG Base Excess ABG Hemoglobin Oxyhemoglobin Sodium Potassium Chloride Carbon Dioxide BUN Creatinine Glucose POC Glucose 311 H 428 H 346 H Hemoglobin A1c Calcium Phosphorus Magnesium AST Alkaline Phosphatase Total Protein Albumin Urine WBC (Auto) Urine Creatinine Urine Total Protein Crossmatch 06/15/17 06/15/17 06/16/17 23:23 Unknown 05:36 WBC RBC Hgb Hct MCH MCHC RDW Plt Count Lymph % (Auto) Blount % (Auto) Blount # Seg Neutrophils % Seg Neuts % (Manual) Lymphocytes % (Manual) Monocytes % (Manual) Basophils % (Manual) Seg Neutrophils # Seg Neutrophils # Man Lymphocytes # (Manual) Monocytes # (Manual) Basophils # (Manual) POC ABG pH ABG pH POC ABG pCO2 POC ABG pO2 ABG pO2 ABG Base Excess ABG Hemoglobin 10.1 L Oxyhemoglobin 94.9 L Sodium Potassium Chloride Carbon Dioxide BUN Creatinine Glucose POC Glucose 351 H 303 H Hemoglobin A1c Calcium Phosphorus Magnesium AST Alkaline Phosphatase Total Protein Albumin Urine WBC (Auto) Urine Creatinine Urine Total Protein Crossmatch 06/16/17 06/16/17 06/16/17 06:33 06:33 08:26 WBC 25.8 H RBC 2.68 L Hgb 7.2 L Hct 21.6 L MCH 27 L MCHC RDW 15.9 H Plt Count Lymph % (Auto) Blount % (Auto) Blount # Seg Neutrophils % Seg Neuts % (Manual) Lymphocytes % (Manual) Monocytes % (Manual) Basophils % (Manual) Seg Neutrophils # Seg Neutrophils # Man Lymphocytes # (Manual) Monocytes # (Manual) Basophils # (Manual) POC ABG pH ABG pH POC ABG pCO2 POC ABG pO2 ABG pO2 ABG Base Excess ABG Hemoglobin Oxyhemoglobin Sodium Potassium Chloride Carbon Dioxide 21 L BUN 94 H Creatinine 2.7 H Glucose 280 H POC Glucose Hemoglobin A1c Calcium Phosphorus Magnesium AST Alkaline Phosphatase Total Protein Albumin Urine WBC (Auto) > 182.0 H Urine Creatinine Urine Total Protein Crossmatch 06/16/17 06/16/17 06/16/17 08:26 11:45 18:28 WBC RBC Hgb Hct MCH MCHC RDW Plt Count Lymph % (Auto) Blount % (Auto) Blount # Seg Neutrophils % Seg Neuts % (Manual) Lymphocytes % (Manual) Monocytes % (Manual) Basophils % (Manual) Seg Neutrophils # Seg Neutrophils # Man Lymphocytes # (Manual) Monocytes # (Manual) Basophils # (Manual) POC ABG pH ABG pH POC ABG pCO2 POC ABG pO2 ABG pO2 ABG Base Excess ABG Hemoglobin Oxyhemoglobin Sodium Potassium Chloride Carbon Dioxide BUN Creatinine Glucose POC Glucose 263 H 175 H Hemoglobin A1c Calcium Phosphorus Magnesium AST Alkaline Phosphatase Total Protein Albumin Urine WBC (Auto) Urine Creatinine 119.9 H Urine Total Protein 295 H Crossmatch 06/16/17 06/17/17 06/17/17 23:36 03:51 04:04 WBC 28.1 H RBC 2.61 L Hgb 7.1 L Hct 21.5 L MCH 27 L MCHC RDW 15.8 H Plt Count Lymph % (Auto) Blount % (Auto) Blount # Seg Neutrophils % Seg Neuts % (Manual) 90.5 H Lymphocytes % (Manual) 2.0 L Monocytes % (Manual) Basophils % (Manual) Seg Neutrophils # Seg Neutrophils # Man 25.4 H Lymphocytes # (Manual) 0.6 L Monocytes # (Manual) 1.5 H Basophils # (Manual) POC ABG pH ABG pH 7.483 H POC ABG pCO2 POC ABG pO2 ABG pO2 144.0 H ABG Base Excess -2.1 L ABG Hemoglobin 6.5 L Oxyhemoglobin Sodium Potassium Chloride Carbon Dioxide BUN Creatinine Glucose POC Glucose 152 H Hemoglobin A1c Calcium Phosphorus Magnesium AST Alkaline Phosphatase Total Protein Albumin Urine WBC (Auto) Urine Creatinine Urine Total Protein Crossmatch 06/17/17 06/17/17 06/17/17 04:04 05:34 09:34 WBC RBC Hgb Hct MCH MCHC RDW Plt Count Lymph % (Auto) Blount % (Auto) Blount # Seg Neutrophils % Seg Neuts % (Manual) Lymphocytes % (Manual) Monocytes % (Manual) Basophils % (Manual) Seg Neutrophils # Seg Neutrophils # Man Lymphocytes # (Manual) Monocytes # (Manual) Basophils # (Manual) POC ABG pH ABG pH POC ABG pCO2 POC ABG pO2 ABG pO2 ABG Base Excess ABG Hemoglobin Oxyhemoglobin Sodium 136 L Potassium Chloride Carbon Dioxide 20 L BUN 97 H Creatinine 2.7 H Glucose 151 H POC Glucose 203 H 243 H Hemoglobin A1c Calcium Phosphorus Magnesium AST Alkaline Phosphatase Total Protein Albumin Urine WBC (Auto) Urine Creatinine Urine Total Protein Crossmatch 06/17/17 06/17/17 06/17/17 12:36 17:24 21:36 WBC RBC Hgb Hct MCH MCHC RDW Plt Count Lymph % (Auto) Blount % (Auto) Blount # Seg Neutrophils % Seg Neuts % (Manual) Lymphocytes % (Manual) Monocytes % (Manual) Basophils % (Manual) Seg Neutrophils # Seg Neutrophils # Man Lymphocytes # (Manual) Monocytes # (Manual) Basophils # (Manual) POC ABG pH ABG pH POC ABG pCO2 POC ABG pO2 ABG pO2 ABG Base Excess ABG Hemoglobin Oxyhemoglobin Sodium Potassium Chloride Carbon Dioxide BUN Creatinine Glucose POC Glucose 214 H 131 H 175 H Hemoglobin A1c Calcium Phosphorus Magnesium AST Alkaline Phosphatase Total Protein Albumin Urine WBC (Auto) Urine Creatinine Urine Total Protein Crossmatch 06/18/17 06/18/17 06/18/17 00:14 04:55 10:57 WBC RBC Hgb Hct MCH MCHC RDW Plt Count Lymph % (Auto) Blount % (Auto) Blount # Seg Neutrophils % Seg Neuts % (Manual) Lymphocytes % (Manual) Monocytes % (Manual) Basophils % (Manual) Seg Neutrophils # Seg Neutrophils # Man Lymphocytes # (Manual) Monocytes # (Manual) Basophils # (Manual) POC ABG pH ABG pH POC ABG pCO2 POC ABG pO2 ABG pO2 ABG Base Excess ABG Hemoglobin Oxyhemoglobin Sodium 134 L Potassium Chloride Carbon Dioxide 19 L BUN 107 H Creatinine 2.7 H Glucose 196 H POC Glucose 171 H 161 H Hemoglobin A1c Calcium Phosphorus Magnesium AST Alkaline Phosphatase Total Protein Albumin Urine WBC (Auto) Urine Creatinine Urine Total Protein Crossmatch 06/18/17 06/18/17 06/19/17 17:31 23:25 04:24 WBC 33.8 H RBC 2.46 L Hgb 6.7 L Hct 20.0 L MCH 27 L MCHC RDW 15.4 H Plt Count Lymph % (Auto) Blount % (Auto) Blount # Seg Neutrophils % Seg Neuts % (Manual) 91.0 H Lymphocytes % (Manual) 2.0 L Monocytes % (Manual) Basophils % (Manual) Seg Neutrophils # Seg Neutrophils # Man 30.8 H Lymphocytes # (Manual) 0.7 L Monocytes # (Manual) 2.0 H Basophils # (Manual) POC ABG pH ABG pH POC ABG pCO2 POC ABG pO2 ABG pO2 ABG Base Excess ABG Hemoglobin Oxyhemoglobin Sodium Potassium Chloride Carbon Dioxide BUN Creatinine Glucose POC Glucose 241 H 303 H Hemoglobin A1c Calcium Phosphorus Magnesium AST Alkaline Phosphatase Total Protein Albumin Urine WBC (Auto) Urine Creatinine Urine Total Protein Crossmatch 06/19/17 06/19/17 06/19/17 04:24 05:19 12:14 WBC RBC Hgb Hct MCH MCHC RDW Plt Count Lymph % (Auto) Blount % (Auto) Blount # Seg Neutrophils % Seg Neuts % (Manual) Lymphocytes % (Manual) Monocytes % (Manual) Basophils % (Manual) Seg Neutrophils # Seg Neutrophils # Man Lymphocytes # (Manual) Monocytes # (Manual) Basophils # (Manual) POC ABG pH ABG pH POC ABG pCO2 POC ABG pO2 ABG pO2 ABG Base Excess ABG Hemoglobin Oxyhemoglobin Sodium 135 L Potassium Chloride 97.2 L Carbon Dioxide 20 L BUN 116 H Creatinine 3.1 H Glucose 220 H POC Glucose 238 H 224 H Hemoglobin A1c Calcium Phosphorus Magnesium AST Alkaline Phosphatase Total Protein Albumin Urine WBC (Auto) Urine Creatinine Urine Total Protein Crossmatch 06/19/17 06/19/17 06/20/17 16:45 16:50 04:34 WBC 36.4 H RBC 2.86 L Hgb 7.8 L Hct 24.4 L MCH 27 L MCHC RDW 16.2 H Plt Count 441 H Lymph % (Auto) Blount % (Auto) Blount # Seg Neutrophils % Seg Neuts % (Manual) 72.0 H Lymphocytes % (Manual) 9.0 L Monocytes % (Manual) 9.0 H Basophils % (Manual) Seg Neutrophils # Seg Neutrophils # Man 26.2 H Lymphocytes # (Manual) Monocytes # (Manual) 3.3 H Basophils # (Manual) POC ABG pH ABG pH POC ABG pCO2 POC ABG pO2 ABG pO2 ABG Base Excess ABG Hemoglobin Oxyhemoglobin Sodium Potassium Chloride Carbon Dioxide BUN Creatinine Glucose POC Glucose 177 H Hemoglobin A1c Calcium Phosphorus Magnesium AST Alkaline Phosphatase Total Protein Albumin Urine WBC (Auto) Urine Creatinine Urine Total Protein Crossmatch See Detail 06/20/17 06/20/17 04:34 04:58 WBC RBC Hgb Hct MCH MCHC RDW Plt Count Lymph % (Auto) Blount % (Auto) Blount # Seg Neutrophils % Seg Neuts % (Manual) Lymphocytes % (Manual) Monocytes % (Manual) Basophils % (Manual) Seg Neutrophils # Seg Neutrophils # Man Lymphocytes # (Manual) Monocytes # (Manual) Basophils # (Manual) POC ABG pH ABG pH POC ABG pCO2 POC ABG pO2 ABG pO2 ABG Base Excess ABG Hemoglobin Oxyhemoglobin Sodium Potassium Chloride Carbon Dioxide 18 L BUN 109 H Creatinine 2.8 H Glucose POC Glucose 108 H Hemoglobin A1c Calcium Phosphorus Magnesium AST Alkaline Phosphatase Total Protein Albumin Urine WBC (Auto) Urine Creatinine Urine Total Protein Crossmatch
--- NOTE | 2017-06-20 11:39 | Progress Note ---
Assessment and Plan /Acute hypoxic respiratory failure -was intubated, on mechanical ventilation>96hrs, now tracheostomy to ventilator -Had PEG and Trach, 06/11/17 - s/p bronch on 05/17 showed Right upper lobe atelectasis, respiratory failure partial mucous plugging right upper lobe - BAL positive for Klebsiella pneumoniae, sensitive to cefepime /Sepsis, with leukocytosis, tachycardia tachypnea - Pneumonia versus UTI versus atelectasis - Continue antibiotics for now with Vanc and cefepime - consulted ID for further recommendation /PNA with sepsis - Placed on cefepime, also continue vancomycin as white count trending up - will follow ID recommendation /Status post cardiac arrest - Cardiology following - EF 15-20% /Acute encephalopathy with anoxic hypoxic brain injury -Continue supportive care - discussion with family in progress for comfort care - Neurology following the patient and recommended a DO NOT RESUSCITATE followed by comfort care /Seizure disorder-complex partial - Patient is on IV Keppra -Neurology following Cardiomyopathy -Cardiology following, continue aspirin, statin, beta jas, lasix - ACEI on hold for JERRI Hyperosmolar hyperglycemic syndrome in Diabetes mellitus type 2. This had resolved - She was on Insulin drip, now on subcut Insulin - Insulin dose increased to 25 Units bid because of hyperglycemia /Hypoglycemia.episodes, Now resolved /Acute kidney injury, likely vasomotor nephropathy -Creatinine 2.8 today - Nephrology following /Hypertension. BP stable with beta jas, hydralazine, Imdur, lasix /DVT prophylaxis with Lovenox /Disposition - Continue ICU care. poor prognosis - may need LTAC placement if family does not want comfort care POOR PROGNOSIS DNR status Brief history: Patient had 36-year-old -[place] female was admitted to the floor for seizure episode, altered mental status, acute hypoxic respiratory failure, patient was intubated in the emergency department patient had PEA and resuscitated successfully. She was placed on trach and PEG tube on 06/11/17. Neurology was consulted and recommended DNR and comfort care. Family now wished for DNR but still deciding for comfort care. Hospitalist Physical Gen appearance:Not in acute distress, lying in bed, obese HEENT: facial edema, Neck:supple, no JVD, Tracheostomy Lungs: Coarse breath sounds bilaterally, no wheeze Heart: S1 and S2 regular, no murmurs, rubs or gallop Abdomen: soft, non tender, non distended, normal bowel sounds, PEG tube present Ext: Edema both upper and lower extremities, no cyanosis,anasarca Neuro: Unresponsive Subjective Date of service: 06/20/17 Principal diagnosis: coma Interval history: pt seen and examined Unresponsive, No fever PEG and Trach done 06/11 s/p bronch on 05/17 The WBC count trending up, hemoglobin 7.8 today Objective - Constitutional Vitals: Vital Signs - 12hr 06/19/17 06/20/17 06/20/17 23:58 00:00 00:13 Temperature 98.6 F 98.6 F Pulse Rate 77 78 79 Respiratory 18 18 17 Rate Blood Pressure 117/80 120/68 120/68 O2 Sat by Pulse 97 98 100 Oximetry 06/20/17 06/20/17 06/20/17 00:43 01:00 01:13 Temperature 98.6 F 98.6 F Pulse Rate 79 77 79 Respiratory 17 24 17 Rate Blood Pressure 120/68 120/67 120/67 O2 Sat by Pulse 100 98 100 Oximetry 06/20/17 06/20/17 06/20/17 01:43 02:00 02:13 Temperature 98.6 F 98.6 F Pulse Rate 79 79 79 Respiratory 17 15 17 Rate Blood Pressure 120/67 123/67 123/67 O2 Sat by Pulse 100 98 100 Oximetry 06/20/17 06/20/17 06/20/17 02:43 03:00 03:13 Temperature 98.6 F 98.6 F Pulse Rate 79 79 79 Respiratory 17 22 17 Rate Blood Pressure 124/69 124/69 124/69 O2 Sat by Pulse 100 98 100 Oximetry 06/20/17 06/20/17 06/20/17 03:19 03:30 03:32 Temperature 98.2 F Pulse Rate 79 80 Respiratory 17 Rate Blood Pressure 124/69 O2 Sat by Pulse 100 98 Oximetry 06/20/17 06/20/17 06/20/17 04:00 04:59 05:00 Temperature Pulse Rate 79 79 79 Respiratory 19 19 Rate Blood Pressure 127/67 133/68 O2 Sat by Pulse 98 98 Oximetry 06/20/17 06/20/17 06/20/17 05:02 05:08 06:01 Temperature Pulse Rate 80 81 Respiratory 17 21 Rate Blood Pressure 133/68 135/70 O2 Sat by Pulse 100 98 Oximetry 06/20/17 06/20/1706/20/18 07:00 08:00 10:00 Temperature 97.9 F Pulse Rate 80 Respiratory Rate Blood Pressure 136/82 O2 Sat by Pulse 98 98 Oximetry - Labs CBC & Chem 7: 06/20/17 04:34 06/20/17 04:34 Labs: Abnormal lab results 06/19/17 06/19/17 06/19/17 Range/Units 12:14 16:45 16:50 WBC (4.5-11.0) K/mm3 RBC (3.65-5.03) M/mm3 Hgb (10.1-14.3) gm/dl Hct (30.3-42.9) % MCH (28-32) pg RDW (13.2-15.2) % Plt Count (140-440) K/mm3 Seg Neuts % (Manual) (40.0-70.0) % Lymphocytes % (Manual) (13.4-35.0) % Monocytes % (Manual) (0.0-7.3) % Seg Neutrophils # Man (1.8-7.7) K/mm3 Monocytes # (Manual) (0.0-0.8) K/mm3 Carbon Dioxide (22-30) mmol/L BUN (7-17) mg/dL Creatinine (0.7-1.2) mg/dL POC Glucose 224 H 177 H (70-105) Crossmatch See Detail 06/20/17 06/20/17 06/20/17 Range/Units 04:34 04:34 04:58 WBC 36.4 H (4.5-11.0) K/mm3 RBC 2.86 L (3.65-5.03) M/mm3 Hgb 7.8 L (10.1-14.3) gm/dl Hct 24.4 L (30.3-42.9) % MCH 27 L (28-32) pg RDW 16.2 H (13.2-15.2) % Plt Count 441 H (140-440) K/mm3 Seg Neuts % (Manual) 72.0 H (40.0-70.0) % Lymphocytes % (Manual) 9.0 L (13.4-35.0) % Monocytes % (Manual) 9.0 H (0.0-7.3) % Seg Neutrophils # Man 26.2 H (1.8-7.7) K/mm3 Monocytes # (Manual) 3.3 H (0.0-0.8) K/mm3 Carbon Dioxide 18 L (22-30) mmol/L BUN 109 H (7-17) mg/dL Creatinine 2.8 H (0.7-1.2) mg/dL POC Glucose 108 H (70-105) Crossmatch
[2017-06-20] MEDS: KEPPRA PO SCH ×2 (14:00→22:02)
[2017-06-20] MEDS: ALDACTONE PO SCH (14:00)
[2017-06-20] MEDS: MAXIPIME 2 GM in NACL 0.9% 20 ML IV SCH (14:00)
[2017-06-20] MEDS: COREG PO SCH ×2 (14:00→22:01)
[2017-06-20] MEDS: LOVENOX SUB-Q SCH (14:00)
[2017-06-20] MEDS: LASIX PO SCH (14:00)
[2017-06-20] MEDS: PEPCID PO SCH (14:00)
[2017-06-20] MEDS ORDERED: VANCOMYCIN 1,250 MG in NACL 0.9% 250ML 250 ML IV ONE (18:00)
[2017-06-21 06:21] LABS: Calcium 8.5 mg/dL (8.4-10.2)
[2017-06-21] MEDS: HumaLOG SUB-Q SCH ×4 (06:37→17:11)
[2017-06-21] MEDS: APRESOLINE PO SCH ×3 (06:37→22:26)
[2017-06-21] MEDS: ISORDIL TITRADOSE PO SCH ×3 (06:37→22:27)
[2017-06-21] MEDS: MAXIPIME 2 GM in NACL 0.9% 20 ML IV SCH (09:04)
[2017-06-21] MEDS: LASIX PO SCH (09:05)
[2017-06-21] MEDS: LOVENOX SUB-Q SCH (09:05)
[2017-06-21] MEDS: COREG PO SCH ×2 (09:05→22:27)
[2017-06-21] MEDS: KEPPRA PO SCH ×2 (09:06→22:25)
[2017-06-21] MEDS: ROBINUL FEEDTUBE SCH ×3 (09:10→22:26)
--- NOTE | 2017-06-21 11:49 | Progress Note ---
Assessment and Plan Fever. None today. RUL atelectasis right lung with high WBC . BAL positive for Klebsiella pneumoniae/Serratia, sensitive to Cefepime VAP. See above. On Vanco in view of persistent leukocytosis,ID to review Status post cardiac arrest Acute respiratory failure. Metabolic encephalopathy. Appreciate comments. No major changes today. DKA Seizures clinically, she appears to be controlled CMP Recommendations Continue Cefepime, vancomycin ,ID consult Suction as needed CBC and chest x-rays up-to-date in the morning BNP update Switched to DO NOT RESUSCITATE CODE STATUS per family request yesterday. May move to terminating at some point after Thursday, still under discussion. No family available for case discussion Critical care time was 31 minutes of [id number] evaluation and coordination of care Subjective Date of service: 06/21/17 Principal diagnosis: coma Interval history: unresponsive Objective Vital Signs - 12hr 06/21/17 06/21/17 06/21/17 00:00 01:00 02:00 Temperature 97.9 F Pulse Rate 84 81 82 Pulse Rate [ From Monitor] Respiratory 21 17 21 Rate Blood Pressure 138/70 130/64 138/69 O2 Sat by Pulse 98 98 98 Oximetry O2 Sat by Pulse Oximetry [ Assessment] 06/21/17 06/21/17 06/21/17 03:00 04:00 05:00 Temperature 98.0 F Pulse Rate 83 81 84 Pulse Rate [ From Monitor] Respiratory 22 19 21 Rate Blood Pressure 134/70 138/68 140/71 O2 Sat by Pulse 98 100 98 Oximetry O2 Sat by Pulse Oximetry [ Assessment] 06/21/17 06/21/17 06/21/17 06:00 07:00 08:00 Temperature 98.5 F Pulse Rate 84 87 85 Pulse Rate [ 121 H From Monitor] Respiratory 18 16 18 Rate Blood Pressure 137/70 149/73 137/72 O2 Sat by Pulse 98 98 96 Oximetry O2 Sat by Pulse Oximetry [ Assessment] 06/21/17 06/21/17 06/21/17 09:00 09:05 09:25 Temperature Pulse Rate 87 88 89 Pulse Rate [ From Monitor] Respiratory 18 Rate Blood Pressure 129/69 129/69 129/69 O2 Sat by Pulse 97 100 Oximetry O2 Sat by Pulse 99 Oximetry [ Assessment] Constitutional: other (mild breathing difficulty) Eyes: non-icteric ENT: oropharynx moist, other (trach in position) Neck: supple, no JVD Effort: normal Ascultation: Right: rales, rhonchi (mild), Bilateral: clear, diminished breath sounds, other (coarse BS bilaterally) Percussion: Bilateral: not dull Cardiovascular: regular rate and rhythm Gastrointestinal: normoactive bowel sounds, soft, non-tender Integumentary: normal Extremities: no cyanosis, no edema, pink and warm Neurologic: other (unresponsive, rolls her eyes sporadically no posturing. Unchanged) Psychiatric: other CBC and BMP: 06/20/17 04:34 06/21/17 05:23 ABG, PT/INR, D-dimer: ABG POC ABG pH 7.461 (7.35-7.45) H 06/10/17 03:24 ABG pH 7.483 pH Units (7.350-7.450) H 06/17/17 03:51 POC ABG pCO2 36.6 (35-45) 06/10/17 03:24 ABG pCO2 28.7 mm Hg 06/17/17 03:51 POC ABG pO2 131 (80-105) H 06/10/17 03:24 ABG pO2 144.0 mm Hg (80.0-90.0) H 06/17/17 03:51 POC ABG HCO3 26.1 06/10/17 03:24 POC ABG Total CO2 27 06/10/17 03:24 POC ABG O2 Sat 99 06/10/17 03:24 ABG O2 Saturation 98.9 % (95.0-99.0) 06/17/17 03:51 PT/INR, D-dimer PT 12.4 Sec. (12.2-14.9) 06/09/17 04:18 INR 0.88 (0.87-1.13) 06/09/17 04:18 Abnormal lab findings: Abnormal Labs 05/30/17 05/30/17 05/30/17 07:48 07:48 08:32 WBC 11.5 H RBC Hgb Hct MCH 27 L MCHC RDW 16.3 H Plt Count Lymph % (Auto) [place] % (Auto) [place] # Seg Neutrophils % Seg Neuts % (Manual) Lymphocytes % (Manual) Monocytes % (Manual) Basophils % (Manual) Seg Neutrophils # Seg Neutrophils # Man Lymphocytes # (Manual) Monocytes # (Manual) Basophils # (Manual) POC ABG pH ABG pH POC ABG pCO2 POC ABG pO2 ABG pO2 ABG Base Excess ABG Hemoglobin Oxyhemoglobin Sodium 133 L Potassium Chloride 89.9 L Carbon Dioxide BUN 27 H Creatinine 2.0 H Glucose 741 H* POC Glucose > 500 H Hemoglobin A1c Calcium Phosphorus Magnesium AST Alkaline Phosphatase Total Protein Albumin Urine WBC (Auto) Urine Creatinine Urine Total Protein Crossmatch 05/30/17 05/30/17 05/30/17 08:59 08:59 16:08 WBC 14.5 H RBC Hgb Hct MCH MCHC RDW 16.0 H Plt Count Lymph % (Auto) [place] % (Auto) [place] # Seg Neutrophils % Seg Neuts % (Manual) 95.0 H Lymphocytes % (Manual) 2.0 L Monocytes % (Manual) Basophils % (Manual) 2.0 H Seg Neutrophils # Seg Neutrophils # Man 13.8 H Lymphocytes # (Manual) 0.3 L Monocytes # (Manual) Basophils # (Manual) 0.3 H POC ABG pH ABG pH POC ABG pCO2 POC ABG pO2 ABG pO2 ABG Base Excess ABG Hemoglobin Oxyhemoglobin Sodium 134 L 135 L Potassium 3.2 L Chloride 90.8 L 93.6 L Carbon Dioxide BUN 28 H 30 H Creatinine 2.0 H 2.1 H Glucose 742 H* 567 H* POC Glucose Hemoglobin A1c Calcium Phosphorus Magnesium AST Alkaline Phosphatase 246 H Total Protein 5.6 L Albumin 2.9 L Urine WBC (Auto) Urine Creatinine Urine Total Protein Crossmatch 05/30/17 05/30/17 05/30/17 16:35 17:55 18:59 WBC RBC Hgb Hct MCH MCHC RDW Plt Count Lymph % (Auto) [place] % (Auto) [place] # Seg Neutrophils % Seg Neuts % (Manual) Lymphocytes % (Manual) Monocytes % (Manual) Basophils % (Manual) Seg Neutrophils # Seg Neutrophils # Man Lymphocytes # (Manual) Monocytes # (Manual) Basophils # (Manual) POC ABG pH 7.544 H ABG pH POC ABG pCO2 32.0 L POC ABG pO2 155 H ABG pO2 ABG Base Excess ABG Hemoglobin Oxyhemoglobin Sodium Potassium 3.1 L Chloride 93.9 L Carbon Dioxide BUN 30 H Creatinine 2.0 H Glucose 561 H* POC Glucose 497 H Hemoglobin A1c Calcium Phosphorus Magnesium AST Alkaline Phosphatase Total Protein Albumin Urine WBC (Auto) Urine Creatinine Urine Total Protein Crossmatch 05/30/17 05/30/17 05/30/17 19:31 19:31 21:38 WBC RBC Hgb Hct MCH MCHC RDW Plt Count Lymph % (Auto) [place] % (Auto) [place] # Seg Neutrophils % Seg Neuts % (Manual) Lymphocytes % (Manual) Monocytes % (Manual) Basophils % (Manual) Seg Neutrophils # Seg Neutrophils # Man Lymphocytes # (Manual) Monocytes # (Manual) Basophils # (Manual) POC ABG pH ABG pH POC ABG pCO2 POC ABG pO2 ABG pO2 ABG Base Excess ABG Hemoglobin Oxyhemoglobin Sodium 135 L Potassium 2.9 L* Chloride 93.8 L 95.4 L Carbon Dioxide 20 L BUN 29 H 30 H Creatinine 2.2 H 2.3 H Glucose 478 H 364 H POC Glucose Hemoglobin A1c Calcium Phosphorus 2.20 L D Magnesium 1.40 L AST 42 H Alkaline Phosphatase 177 H Total Protein 5.4 L Albumin 2.4 L Urine WBC (Auto) Urine Creatinine Urine Total Protein Crossmatch 05/30/17 05/31/17 05/31/17 23:06 02:17 05:27 WBC RBC Hgb Hct MCH MCHC RDW Plt Count Lymph % (Auto) [place] % (Auto) [place] # Seg Neutrophils % Seg Neuts % (Manual) Lymphocytes % (Manual) Monocytes % (Manual) Basophils % (Manual) Seg Neutrophils # Seg Neutrophils # Man Lymphocytes # (Manual) Monocytes # (Manual) Basophils # (Manual) POC ABG pH 7.489 H ABG pH POC ABG pCO2 POC ABG pO2 ABG pO2 ABG Base Excess ABG Hemoglobin Oxyhemoglobin Sodium Potassium 3.2 L 3.5 L Chloride Carbon Dioxide BUN 30 H 31 H Creatinine 2.5 H 2.4 H Glucose 288 H 246 H POC Glucose Hemoglobin A1c Calcium 8.3 L Phosphorus Magnesium AST Alkaline Phosphatase Total Protein Albumin Urine WBC (Auto) Urine Creatinine Urine Total Protein Crossmatch 05/31/17 05/31/17 05/31/17 05:45 05:45 05:45 WBC RBC Hgb Hct MCH MCHC RDW Plt Count Lymph % (Auto) [place] % (Auto) [place] # Seg Neutrophils % Seg Neuts % (Manual) Lymphocytes % (Manual) Monocytes % (Manual) Basophils % (Manual) Seg Neutrophils # Seg Neutrophils # Man Lymphocytes # (Manual) Monocytes # (Manual) Basophils # (Manual) POC ABG pH ABG pH POC ABG pCO2 POC ABG pO2 ABG pO2 ABG Base Excess ABG Hemoglobin Oxyhemoglobin Sodium Potassium Chloride Carbon Dioxide BUN 32 H 30 H Creatinine 2.5 H 2.6 H Glucose 266 H 271 H POC Glucose Hemoglobin A1c 9.7 H Calcium 8.3 L 8.2 L Phosphorus Magnesium AST Alkaline Phosphatase 145 H Total Protein 4.7 L Albumin 1.8 L Urine WBC (Auto) Urine Creatinine Urine Total Protein Crossmatch 05/31/17 05/31/17 05/31/17 08:18 09:20 12:18 WBC RBC Hgb Hct MCH MCHC RDW Plt Count Lymph % (Auto) [place] % (Auto) [place] # Seg Neutrophils % Seg Neuts % (Manual) Lymphocytes % (Manual) Monocytes % (Manual) Basophils % (Manual) Seg Neutrophils # Seg Neutrophils # Man Lymphocytes # (Manual) Monocytes # (Manual) Basophils # (Manual) POC ABG pH ABG pH POC ABG pCO2 POC ABG pO2 ABG pO2 ABG Base Excess ABG Hemoglobin Oxyhemoglobin Sodium Potassium Chloride Carbon Dioxide BUN Creatinine Glucose POC Glucose 300 H 254 H 170 H Hemoglobin A1c Calcium Phosphorus Magnesium AST Alkaline Phosphatase Total Protein Albumin Urine WBC (Auto) Urine Creatinine Urine Total Protein Crossmatch 05/31/17 05/31/17 05/31/17 14:09 14:17 14:27 WBC RBC Hgb Hct MCH MCHC RDW Plt Count Lymph % (Auto) [place] % (Auto) [place] # Seg Neutrophils % Seg Neuts % (Manual) Lymphocytes % (Manual) Monocytes % (Manual) Basophils % (Manual) Seg Neutrophils # Seg Neutrophils # Man Lymphocytes # (Manual) Monocytes # (Manual) Basophils # (Manual) POC ABG pH ABG pH POC ABG pCO2 POC ABG pO2 ABG pO2 ABG Base Excess ABG Hemoglobin Oxyhemoglobin Sodium Potassium 3.4 L Chloride 107.1 H Carbon Dioxide BUN 30 H Creatinine 2.6 H Glucose 38 L* POC Glucose < 40 L 189 H Hemoglobin A1c Calcium 7.6 L Phosphorus Magnesium AST Alkaline Phosphatase Total Protein Albumin Urine WBC (Auto) Urine Creatinine Urine Total Protein Crossmatch 05/31/17 05/31/17 05/31/17 15:01 16:01 17:19 WBC RBC Hgb Hct MCH MCHC RDW Plt Count Lymph % (Auto) [place] % (Auto) [place] # Seg Neutrophils % Seg Neuts % (Manual) Lymphocytes % (Manual) Monocytes % (Manual) Basophils % (Manual) Seg Neutrophils # Seg Neutrophils # Man Lymphocytes # (Manual) Monocytes # (Manual) Basophils # (Manual) POC ABG pH ABG pH POC ABG pCO2 POC ABG pO2 ABG pO2 ABG Base Excess ABG Hemoglobin Oxyhemoglobin Sodium Potassium Chloride Carbon Dioxide BUN Creatinine Glucose POC Glucose 130 H 165 H 131 H Hemoglobin A1c Calcium Phosphorus Magnesium AST Alkaline Phosphatase Total Protein Albumin Urine WBC (Auto) Urine Creatinine Urine Total Protein Crossmatch 05/31/17 05/31/17 05/31/17 18:46 19:54 20:36 WBC RBC Hgb Hct MCH MCHC RDW Plt Count Lymph % (Auto) [place] % (Auto) [place] # Seg Neutrophils % Seg Neuts % (Manual) Lymphocytes % (Manual) Monocytes % (Manual) Basophils % (Manual) Seg Neutrophils # Seg Neutrophils # Man Lymphocytes # (Manual) Monocytes # (Manual) Basophils # (Manual) POC ABG pH ABG pH POC ABG pCO2 POC ABG pO2 ABG pO2 ABG Base Excess ABG Hemoglobin Oxyhemoglobin Sodium Potassium Chloride Carbon Dioxide BUN 29 H Creatinine 2.4 H Glucose 124 H POC Glucose 128 H 157 H Hemoglobin A1c Calcium 7.9 L Phosphorus Magnesium AST Alkaline Phosphatase Total Protein Albumin Urine WBC (Auto) Urine Creatinine Urine Total Protein Crossmatch 05/31/17 06/01/17 06/01/17 21:41 03:22 04:06 WBC RBC Hgb Hct MCH MCHC RDW Plt Count Lymph % (Auto) [place] % (Auto) [place] # Seg Neutrophils % Seg Neuts % (Manual) Lymphocytes % (Manual) Monocytes % (Manual) Basophils % (Manual) Seg Neutrophils # Seg Neutrophils # Man Lymphocytes # (Manual) Monocytes # (Manual) Basophils # (Manual) POC ABG pH ABG pH POC ABG pCO2 POC ABG pO2 ABG pO2 ABG Base Excess ABG Hemoglobin Oxyhemoglobin Sodium Potassium Chloride Carbon Dioxide 19 L BUN 29 H Creatinine 2.6 H Glucose 205 H POC Glucose 158 H 251 H Hemoglobin A1c Calcium 7.8 L Phosphorus Magnesium AST Alkaline Phosphatase Total Protein Albumin Urine WBC (Auto) Urine Creatinine Urine Total Protein Crossmatch 06/01/17 06/01/17 06/01/17 04:30 09:15 09:59 WBC 19.7 H RBC Hgb 10.0 L Hct MCH 27 L MCHC RDW 17.1 H Plt Count Lymph % (Auto) [place] % (Auto) [place] # Seg Neutrophils % Seg Neuts % (Manual) Lymphocytes % (Manual) Monocytes % (Manual) Basophils % (Manual) Seg Neutrophils # Seg Neutrophils # Man Lymphocytes # (Manual) Monocytes # (Manual) Basophils # (Manual) POC ABG pH 7.464 H ABG pH POC ABG pCO2 31.3 L POC ABG pO2 ABG pO2 ABG Base Excess ABG Hemoglobin Oxyhemoglobin Sodium Potassium Chloride Carbon Dioxide BUN Creatinine Glucose POC Glucose 330 H Hemoglobin A1c Calcium Phosphorus Magnesium AST Alkaline Phosphatase Total Protein Albumin Urine WBC (Auto) Urine Creatinine Urine Total Protein Crossmatch 06/01/17 06/01/17 06/01/17 11:36 12:25 13:43 WBC RBC Hgb Hct MCH MCHC RDW Plt Count Lymph % (Auto) [place] % (Auto) [place] # Seg Neutrophils % Seg Neuts % (Manual) Lymphocytes % (Manual) Monocytes % (Manual) Basophils % (Manual) Seg Neutrophils # Seg Neutrophils # Man Lymphocytes # (Manual) Monocytes # (Manual) Basophils # (Manual) POC ABG pH ABG pH POC ABG pCO2 POC ABG pO2 ABG pO2 ABG Base Excess ABG Hemoglobin Oxyhemoglobin Sodium Potassium Chloride Carbon Dioxide BUN Creatinine Glucose POC Glucose 431 H 434 H 445 H Hemoglobin A1c Calcium Phosphorus Magnesium AST Alkaline Phosphatase Total Protein Albumin Urine WBC (Auto) Urine Creatinine Urine Total Protein Crossmatch 06/01/17 06/01/17 06/01/17 14:26 15:46 16:03 WBC RBC Hgb Hct MCH MCHC RDW Plt Count Lymph % (Auto) [place] % (Auto) [place] # Seg Neutrophils % Seg Neuts % (Manual) Lymphocytes % (Manual) Monocytes % (Manual) Basophils % (Manual) Seg Neutrophils # Seg Neutrophils # Man Lymphocytes # (Manual) Monocytes # (Manual) Basophils # (Manual) POC ABG pH ABG pH POC ABG pCO2 POC ABG pO2 ABG pO2 ABG Base Excess ABG Hemoglobin Oxyhemoglobin Sodium Potassium Chloride Carbon Dioxide BUN Creatinine Glucose POC Glucose 310 H 292 H 244 H Hemoglobin A1c Calcium Phosphorus Magnesium AST Alkaline Phosphatase Total Protein Albumin Urine WBC (Auto) Urine Creatinine Urine Total Protein Crossmatch 06/01/17 06/01/17 06/01/17 16:59 17:49 19:05 WBC RBC Hgb Hct MCH MCHC RDW Plt Count Lymph % (Auto) [place] % (Auto) [place] # Seg Neutrophils % Seg Neuts % (Manual) Lymphocytes % (Manual) Monocytes % (Manual) Basophils % (Manual) Seg Neutrophils # Seg Neutrophils # Man Lymphocytes # (Manual) Monocytes # (Manual) Basophils # (Manual) POC ABG pH ABG pH POC ABG pCO2 POC ABG pO2 ABG pO2 ABG Base Excess ABG Hemoglobin Oxyhemoglobin Sodium Potassium Chloride Carbon Dioxide BUN Creatinine Glucose POC Glucose 260 H 203 H 156 H Hemoglobin A1c Calcium Phosphorus Magnesium AST Alkaline Phosphatase Total Protein Albumin Urine WBC (Auto) Urine Creatinine Urine Total Protein Crossmatch 06/02/17 06/02/17 06/02/17 00:09 01:06 02:31 WBC RBC Hgb Hct MCH MCHC RDW Plt Count Lymph % (Auto) [place] % (Auto) [place] # Seg Neutrophils % Seg Neuts % (Manual) Lymphocytes % (Manual) Monocytes % (Manual) Basophils % (Manual) Seg Neutrophils # Seg Neutrophils # Man Lymphocytes # (Manual) Monocytes # (Manual) Basophils # (Manual) POC ABG pH ABG pH POC ABG pCO2 POC ABG pO2 ABG pO2 ABG Base Excess ABG Hemoglobin Oxyhemoglobin Sodium Potassium Chloride Carbon Dioxide BUN Creatinine Glucose POC Glucose 137 H 146 H 182 H Hemoglobin A1c Calcium Phosphorus Magnesium AST Alkaline Phosphatase Total Protein Albumin Urine WBC (Auto) Urine Creatinine Urine Total Protein Crossmatch 06/02/17 06/02/17 06/02/17 04:03 04:24 04:24 WBC 21.0 H RBC 3.62 L Hgb Hct 29.6 L MCH MCHC RDW 16.5 H Plt Count Lymph % (Auto) [place] % (Auto) [place] # Seg Neutrophils % Seg Neuts % (Manual) 98.0 H Lymphocytes % (Manual) 1.0 L Monocytes % (Manual) Basophils % (Manual) Seg Neutrophils # Seg Neutrophils # Man 20.6 H Lymphocytes # (Manual) 0.2 L Monocytes # (Manual) Basophils # (Manual) POC ABG pH ABG pH POC ABG pCO2 POC ABG pO2 ABG pO2 ABG Base Excess ABG Hemoglobin Oxyhemoglobin Sodium Potassium Chloride Carbon Dioxide 20 L BUN 36 H Creatinine 2.8 H Glucose 137 H POC Glucose 150 H Hemoglobin A1c Calcium 7.5 L Phosphorus 4.60 H Magnesium 1.50 L AST Alkaline Phosphatase 132 H Total Protein 4.1 L Albumin 1.7 L Urine WBC (Auto) Urine Creatinine Urine Total Protein Crossmatch 06/02/17 06/02/17 06/02/17 05:01 05:14 06:20 WBC RBC Hgb Hct MCH MCHC RDW Plt Count Lymph % (Auto) [place] % (Auto) [place] # Seg Neutrophils % Seg Neuts % (Manual) Lymphocytes % (Manual) Monocytes % (Manual) Basophils % (Manual) Seg Neutrophils # Seg Neutrophils # Man Lymphocytes # (Manual) Monocytes # (Manual) Basophils # (Manual) POC ABG pH 7.517 H ABG pH POC ABG pCO2 28.4 L POC ABG pO2 67 L ABG pO2 ABG Base Excess ABG Hemoglobin Oxyhemoglobin Sodium Potassium Chloride Carbon Dioxide BUN Creatinine Glucose POC Glucose 137 H 163 H Hemoglobin A1c Calcium Phosphorus Magnesium AST Alkaline Phosphatase Total Protein Albumin Urine WBC (Auto) Urine Creatinine Urine Total Protein Crossmatch 06/02/17 06/02/17 06/02/17 07:43 09:40 10:18 WBC RBC Hgb Hct MCH MCHC RDW Plt Count Lymph % (Auto) [place] % (Auto) [place] # Seg Neutrophils % Seg Neuts % (Manual) Lymphocytes % (Manual) Monocytes % (Manual) Basophils % (Manual) Seg Neutrophils # Seg Neutrophils # Man Lymphocytes # (Manual) Monocytes # (Manual) Basophils # (Manual) POC ABG pH ABG pH POC ABG pCO2 POC ABG pO2 ABG pO2 ABG Base Excess ABG Hemoglobin Oxyhemoglobin Sodium Potassium Chloride Carbon Dioxide BUN Creatinine Glucose POC Glucose 135 H 196 H Hemoglobin A1c Calcium Phosphorus Magnesium AST Alkaline Phosphatase Total Protein Albumin Urine WBC (Auto) Urine Creatinine Urine Total Protein < 4 L Crossmatch 06/02/17 06/02/17 06/02/17 10:33 11:55 17:39 WBC RBC Hgb Hct MCH MCHC RDW Plt Count Lymph % (Auto) [place] % (Auto) [place] # Seg Neutrophils % Seg Neuts % (Manual) Lymphocytes % (Manual) Monocytes % (Manual) Basophils % (Manual) Seg Neutrophils # Seg Neutrophils # Man Lymphocytes # (Manual) Monocytes # (Manual) Basophils # (Manual) POC ABG pH ABG pH POC ABG pCO2 POC ABG pO2 ABG pO2 ABG Base Excess ABG Hemoglobin Oxyhemoglobin Sodium Potassium Chloride Carbon Dioxide BUN Creatinine Glucose POC Glucose 188 H 110 H 150 H Hemoglobin A1c Calcium Phosphorus Magnesium AST Alkaline Phosphatase Total Protein Albumin Urine WBC (Auto) Urine Creatinine Urine Total Protein Crossmatch 06/02/17 06/02/17 06/03/17 18:12 21:32 02:02 WBC RBC Hgb Hct MCH MCHC RDW Plt Count Lymph % (Auto) [place] % (Auto) [place] # Seg Neutrophils % Seg Neuts % (Manual) Lymphocytes % (Manual) Monocytes % (Manual) Basophils % (Manual) Seg Neutrophils # Seg Neutrophils # Man Lymphocytes # (Manual) Monocytes # (Manual) Basophils # (Manual) POC ABG pH ABG pH POC ABG pCO2 POC ABG pO2 ABG pO2 ABG Base Excess ABG Hemoglobin Oxyhemoglobin Sodium Potassium Chloride Carbon Dioxide BUN Creatinine Glucose POC Glucose 131 H 143 H 191 H Hemoglobin A1c Calcium Phosphorus Magnesium AST Alkaline Phosphatase Total Protein Albumin Urine WBC (Auto) Urine Creatinine Urine Total Protein Crossmatch 06/03/17 06/03/17 06/03/17 04:14 04:14 05:06 WBC 21.1 H RBC Hgb Hct MCH 27 L MCHC RDW 15.9 H Plt Count 447 H Lymph % (Auto) [place] % (Auto) [place] # Seg Neutrophils % Seg Neuts % (Manual) 94.0 H Lymphocytes % (Manual) 3.0 L Monocytes % (Manual) Basophils % (Manual) Seg Neutrophils # Seg Neutrophils # Man 19.8 H Lymphocytes # (Manual) 0.6 L Monocytes # (Manual) Basophils # (Manual) POC ABG pH ABG pH POC ABG pCO2 28.6 L POC ABG pO2 112 H ABG pO2 ABG Base Excess ABG Hemoglobin Oxyhemoglobin Sodium Potassium Chloride Carbon Dioxide 14 L BUN 45 H Creatinine 2.8 H Glucose 211 H POC Glucose Hemoglobin A1c Calcium 8.0 L Phosphorus Magnesium AST Alkaline Phosphatase Total Protein Albumin Urine WBC (Auto) Urine Creatinine Urine Total Protein Crossmatch 06/03/17 06/03/17 06/03/17 06:00 10:20 13:43 WBC RBC Hgb Hct MCH MCHC RDW Plt Count Lymph % (Auto) [place] % (Auto) [place] # Seg Neutrophils % Seg Neuts % (Manual) Lymphocytes % (Manual) Monocytes % (Manual) Basophils % (Manual) Seg Neutrophils # Seg Neutrophils # Man Lymphocytes # (Manual) Monocytes # (Manual) Basophils # (Manual) POC ABG pH ABG pH POC ABG pCO2 POC ABG pO2 ABG pO2 ABG Base Excess ABG Hemoglobin Oxyhemoglobin Sodium Potassium Chloride Carbon Dioxide BUN Creatinine Glucose POC Glucose 224 H 226 H 296 H Hemoglobin A1c Calcium Phosphorus Magnesium AST Alkaline Phosphatase Total Protein Albumin Urine WBC (Auto) Urine Creatinine Urine Total Protein Crossmatch 06/03/17 06/03/17 06/03/17 17:38 19:23 20:45 WBC RBC Hgb Hct MCH MCHC RDW Plt Count Lymph % (Auto) [place] % (Auto) [place] # Seg Neutrophils % Seg Neuts % (Manual) Lymphocytes % (Manual) Monocytes % (Manual) Basophils % (Manual) Seg Neutrophils # Seg Neutrophils # Man Lymphocytes # (Manual) Monocytes # (Manual) Basophils # (Manual) POC ABG pH ABG pH POC ABG pCO2 POC ABG pO2 ABG pO2 ABG Base Excess ABG Hemoglobin Oxyhemoglobin Sodium Potassium Chloride Carbon Dioxide BUN Creatinine Glucose POC Glucose 295 H 275 H 338 H Hemoglobin A1c Calcium Phosphorus Magnesium AST Alkaline Phosphatase Total Protein Albumin Urine WBC (Auto) Urine Creatinine Urine Total Protein Crossmatch 06/03/17 06/03/17 06/04/17 21:50 23:08 00:16 WBC RBC Hgb Hct MCH MCHC RDW Plt Count Lymph % (Auto) [place] % (Auto) [place] # Seg Neutrophils % Seg Neuts % (Manual) Lymphocytes % (Manual) Monocytes % (Manual) Basophils % (Manual) Seg Neutrophils # Seg Neutrophils # Man Lymphocytes # (Manual) Monocytes # (Manual) Basophils # (Manual) POC ABG pH ABG pH POC ABG pCO2 POC ABG pO2 ABG pO2 ABG Base Excess ABG Hemoglobin Oxyhemoglobin Sodium Potassium Chloride Carbon Dioxide BUN Creatinine Glucose POC Glucose 223 H 214 H 226 H Hemoglobin A1c Calcium Phosphorus Magnesium AST Alkaline Phosphatase Total Protein Albumin Urine WBC (Auto) Urine Creatinine Urine Total Protein Crossmatch 06/04/17 06/04/17 06/04/17 01:05 02:07 03:27 WBC RBC Hgb Hct MCH MCHC RDW Plt Count Lymph % (Auto) [place] % (Auto) [place] # Seg Neutrophils % Seg Neuts % (Manual) Lymphocytes % (Manual) Monocytes % (Manual) Basophils % (Manual) Seg Neutrophils # Seg Neutrophils # Man Lymphocytes # (Manual) Monocytes # (Manual) Basophils # (Manual) POC ABG pH ABG pH POC ABG pCO2 POC ABG pO2 ABG pO2 ABG Base Excess ABG Hemoglobin Oxyhemoglobin Sodium Potassium Chloride Carbon Dioxide BUN Creatinine Glucose POC Glucose 217 H 229 H 185 H Hemoglobin A1c Calcium Phosphorus Magnesium AST Alkaline Phosphatase Total Protein Albumin Urine WBC (Auto) Urine Creatinine Urine Total Protein Crossmatch 06/04/17 06/04/17 06/04/17 03:52 04:05 04:05 WBC 19.6 H RBC Hgb Hct MCH 26 L MCHC RDW 15.6 H Plt Count 564 H Lymph % (Auto) 7.3 L [place] % (Auto) 10.8 H [place] # 2.1 H Seg Neutrophils % 81.4 H Seg Neuts % (Manual) Lymphocytes % (Manual) Monocytes % (Manual) Basophils % (Manual) Seg Neutrophils # 15.9 H Seg Neutrophils # Man Lymphocytes # (Manual) Monocytes # (Manual) Basophils # (Manual) POC ABG pH ABG pH POC ABG pCO2 POC ABG pO2 ABG pO2 ABG Base Excess ABG Hemoglobin Oxyhemoglobin Sodium Potassium Chloride Carbon Dioxide 17 L BUN 52 H Creatinine 2.5 H Glucose 163 H POC Glucose 181 H Hemoglobin A1c Calcium 7.9 L Phosphorus Magnesium AST Alkaline Phosphatase Total Protein Albumin Urine WBC (Auto) Urine Creatinine Urine Total Protein Crossmatch 06/04/17 06/04/17 06/04/17 04:56 05:39 06:12 WBC RBC Hgb Hct MCH MCHC RDW Plt Count Lymph % (Auto) [place] % (Auto) [place] # Seg Neutrophils % Seg Neuts % (Manual) Lymphocytes % (Manual) Monocytes % (Manual) Basophils % (Manual) Seg Neutrophils # Seg Neutrophils # Man Lymphocytes # (Manual) Monocytes # (Manual) Basophils # (Manual) POC ABG pH 7.486 H ABG pH POC ABG pCO2 26.8 L POC ABG pO2 ABG pO2 ABG Base Excess ABG Hemoglobin Oxyhemoglobin Sodium Potassium Chloride Carbon Dioxide BUN Creatinine Glucose POC Glucose 208 H 225 H Hemoglobin A1c Calcium Phosphorus Magnesium AST Alkaline Phosphatase Total Protein Albumin Urine WBC (Auto) Urine Creatinine Urine Total Protein Crossmatch 06/04/17 06/04/17 06/04/17 07:07 08:06 09:15 WBC RBC Hgb Hct MCH MCHC RDW Plt Count Lymph % (Auto) [place] % (Auto) [place] # Seg Neutrophils % Seg Neuts % (Manual) Lymphocytes % (Manual) Monocytes % (Manual) Basophils % (Manual) Seg Neutrophils # Seg Neutrophils # Man Lymphocytes # (Manual) Monocytes # (Manual) Basophils # (Manual) POC ABG pH ABG pH POC ABG pCO2 POC ABG pO2 ABG pO2 ABG Base Excess ABG Hemoglobin Oxyhemoglobin Sodium Potassium Chloride Carbon Dioxide BUN Creatinine Glucose POC Glucose 201 H 171 H 178 H Hemoglobin A1c Calcium Phosphorus Magnesium AST Alkaline Phosphatase Total Protein Albumin Urine WBC (Auto) Urine Creatinine Urine Total Protein Crossmatch 06/04/17 06/04/17 06/04/17 10:16 12:22 17:21 WBC RBC Hgb Hct MCH MCHC RDW Plt Count Lymph % (Auto) [place] % (Auto) [place] # Seg Neutrophils % Seg Neuts % (Manual) Lymphocytes % (Manual) Monocytes % (Manual) Basophils % (Manual) Seg Neutrophils # Seg Neutrophils # Man Lymphocytes # (Manual) Monocytes # (Manual) Basophils # (Manual) POC ABG pH ABG pH POC ABG pCO2 POC ABG pO2 ABG pO2 ABG Base Excess ABG Hemoglobin Oxyhemoglobin Sodium Potassium Chloride Carbon Dioxide BUN Creatinine Glucose POC Glucose 191 H 188 H Hemoglobin A1c Calcium Phosphorus Magnesium AST Alkaline Phosphatase Total Protein Albumin Urine WBC (Auto) Urine Creatinine 78.7 H Urine Total Protein 197 H Crossmatch 06/04/17 06/04/17 06/05/17 17:56 22:10 00:00 WBC RBC Hgb Hct MCH MCHC RDW Plt Count Lymph % (Auto) [place] % (Auto) [place] # Seg Neutrophils % Seg Neuts % (Manual) Lymphocytes % (Manual) Monocytes % (Manual) Basophils % (Manual) Seg Neutrophils # Seg Neutrophils # Man Lymphocytes # (Manual) Monocytes # (Manual) Basophils # (Manual) POC ABG pH ABG pH POC ABG pCO2 POC ABG pO2 ABG pO2 ABG Base Excess ABG Hemoglobin Oxyhemoglobin Sodium Potassium Chloride Carbon Dioxide 17 L BUN 55 H Creatinine 2.3 H Glucose 300 H POC Glucose 266 H 337 H Hemoglobin A1c Calcium 7.4 L Phosphorus Magnesium AST Alkaline Phosphatase Total Protein Albumin Urine WBC (Auto) Urine Creatinine Urine Total Protein Crossmatch 06/05/17 06/05/17 06/05/17 03:26 04:11 05:13 WBC RBC Hgb Hct MCH MCHC RDW Plt Count Lymph % (Auto) [place] % (Auto) [place] # Seg Neutrophils % Seg Neuts % (Manual) Lymphocytes % (Manual) Monocytes % (Manual) Basophils % (Manual) Seg Neutrophils # Seg Neutrophils # Man Lymphocytes # (Manual) Monocytes # (Manual) Basophils # (Manual) POC ABG pH 7.586 H ABG pH POC ABG pCO2 22.6 L POC ABG pO2 179 H ABG pO2 ABG Base Excess ABG Hemoglobin Oxyhemoglobin Sodium Potassium Chloride Carbon Dioxide 19 L BUN 55 H Creatinine 2.2 H Glucose 226 H POC Glucose 220 H Hemoglobin A1c Calcium 7.7 L Phosphorus Magnesium AST Alkaline Phosphatase Total Protein Albumin Urine WBC (Auto) Urine Creatinine Urine Total Protein Crossmatch 06/05/17 06/05/17 06/05/17 12:42 18:24 21:23 WBC RBC Hgb Hct MCH MCHC RDW Plt Count Lymph % (Auto) [place] % (Auto) [place] # Seg Neutrophils % Seg Neuts % (Manual) Lymphocytes % (Manual) Monocytes % (Manual) Basophils % (Manual) Seg Neutrophils # Seg Neutrophils # Man Lymphocytes # (Manual) Monocytes # (Manual) Basophils # (Manual) POC ABG pH ABG pH POC ABG pCO2 POC ABG pO2 ABG pO2 ABG Base Excess ABG Hemoglobin Oxyhemoglobin Sodium Potassium Chloride Carbon Dioxide BUN Creatinine Glucose POC Glucose 168 H 121 H 166 H Hemoglobin A1c Calcium Phosphorus Magnesium AST Alkaline Phosphatase Total Protein Albumin Urine WBC (Auto) Urine Creatinine Urine Total Protein Crossmatch 06/06/17 06/06/17 06/06/17 00:14 04:11 06:19 WBC RBC Hgb Hct MCH MCHC RDW Plt Count Lymph % (Auto) [place] % (Auto) [place] # Seg Neutrophils % Seg Neuts % (Manual) Lymphocytes % (Manual) Monocytes % (Manual) Basophils % (Manual) Seg Neutrophils # Seg Neutrophils # Man Lymphocytes # (Manual) Monocytes # (Manual) Basophils # (Manual) POC ABG pH ABG pH POC ABG pCO2 33.0 L POC ABG pO2 ABG pO2 ABG Base Excess ABG Hemoglobin Oxyhemoglobin Sodium Potassium Chloride Carbon Dioxide BUN Creatinine Glucose POC Glucose 179 H 180 H Hemoglobin A1c Calcium Phosphorus Magnesium AST Alkaline Phosphatase Total Protein Albumin Urine WBC (Auto) Urine Creatinine Urine Total Protein Crossmatch 06/06/17 06/06/17 06/06/17 12:19 18:38 20:01 WBC RBC Hgb Hct MCH MCHC RDW Plt Count Lymph % (Auto) [place] % (Auto) [place] # Seg Neutrophils % Seg Neuts % (Manual) Lymphocytes % (Manual) Monocytes % (Manual) Basophils % (Manual) Seg Neutrophils # Seg Neutrophils # Man Lymphocytes # (Manual) Monocytes # (Manual) Basophils # (Manual) POC ABG pH ABG pH POC ABG pCO2 POC ABG pO2 ABG pO2 ABG Base Excess ABG Hemoglobin Oxyhemoglobin Sodium Potassium Chloride Carbon Dioxide BUN Creatinine Glucose POC Glucose 123 H 56 L 65 L Hemoglobin A1c Calcium Phosphorus Magnesium AST Alkaline Phosphatase Total Protein Albumin Urine WBC (Auto) Urine Creatinine Urine Total Protein Crossmatch 06/06/17 06/07/17 06/07/17 23:51 04:25 05:29 WBC RBC Hgb Hct MCH MCHC RDW Plt Count Lymph % (Auto) [place] % (Auto) [place] # Seg Neutrophils % Seg Neuts % (Manual) Lymphocytes % (Manual) Monocytes % (Manual) Basophils % (Manual) Seg Neutrophils # Seg Neutrophils # Man Lymphocytes # (Manual) Monocytes # (Manual) Basophils # (Manual) POC ABG pH 7.470 H ABG pH POC ABG pCO2 33.6 L POC ABG pO2 ABG pO2 ABG Base Excess ABG Hemoglobin Oxyhemoglobin Sodium Potassium Chloride Carbon Dioxide BUN Creatinine Glucose POC Glucose 118 H 183 H Hemoglobin A1c Calcium Phosphorus Magnesium AST Alkaline Phosphatase Total Protein Albumin Urine WBC (Auto) Urine Creatinine Urine Total Protein Crossmatch 06/07/17 06/07/17 06/07/17 07:51 12:00 18:08 WBC RBC Hgb Hct MCH MCHC RDW Plt Count Lymph % (Auto) [place] % (Auto) [place] # Seg Neutrophils % Seg Neuts % (Manual) Lymphocytes % (Manual) Monocytes % (Manual) Basophils % (Manual) Seg Neutrophils # Seg Neutrophils # Man Lymphocytes # (Manual) Monocytes # (Manual) Basophils # (Manual) POC ABG pH ABG pH POC ABG pCO2 POC ABG pO2 ABG pO2 ABG Base Excess ABG Hemoglobin Oxyhemoglobin Sodium 135 L Potassium Chloride Carbon Dioxide 21 L BUN 50 H Creatinine 1.8 H Glucose 232 H POC Glucose 361 H 249 H Hemoglobin A1c Calcium 8.0 L Phosphorus Magnesium AST Alkaline Phosphatase Total Protein Albumin Urine WBC (Auto) Urine Creatinine Urine Total Protein Crossmatch 06/07/17 06/08/17 06/08/17 23:53 05:25 11:50 WBC RBC Hgb Hct MCH MCHC RDW Plt Count Lymph % (Auto) [place] % (Auto) [place] # Seg Neutrophils % Seg Neuts % (Manual) Lymphocytes % (Manual) Monocytes % (Manual) Basophils % (Manual) Seg Neutrophils # Seg Neutrophils # Man Lymphocytes # (Manual) Monocytes # (Manual) Basophils # (Manual) POC ABG pH ABG pH POC ABG pCO2 POC ABG pO2 ABG pO2 ABG Base Excess ABG Hemoglobin Oxyhemoglobin Sodium Potassium Chloride Carbon Dioxide BUN Creatinine Glucose POC Glucose 190 H 136 H 166 H Hemoglobin A1c Calcium Phosphorus Magnesium AST Alkaline Phosphatase Total Protein Albumin Urine WBC (Auto) Urine Creatinine Urine Total Protein Crossmatch 06/08/17 06/08/17 06/08/17 14:20 14:20 19:05 WBC 15.7 H RBC 3.49 L Hgb 9.4 L Hct 27.9 L MCH 27 L MCHC RDW 15.3 H Plt Count 590 H Lymph % (Auto) [place] % (Auto) [place] # Seg Neutrophils % Seg Neuts % (Manual) Lymphocytes % (Manual) Monocytes % (Manual) Basophils % (Manual) Seg Neutrophils # Seg Neutrophils # Man Lymphocytes # (Manual) Monocytes # (Manual) Basophils # (Manual) POC ABG pH ABG pH POC ABG pCO2 POC ABG pO2 ABG pO2 ABG Base Excess ABG Hemoglobin Oxyhemoglobin Sodium Potassium Chloride Carbon Dioxide BUN 55 H Creatinine 1.7 H Glucose 117 H POC Glucose 135 H Hemoglobin A1c Calcium Phosphorus Magnesium AST Alkaline Phosphatase Total Protein Albumin Urine WBC (Auto) Urine Creatinine Urine Total Protein Crossmatch 06/08/17 06/08/17 06/09/17 21:52 23:55 04:18 WBC RBC Hgb Hct MCH MCHC RDW Plt Count Lymph % (Auto) [place] % (Auto) [place] # Seg Neutrophils % Seg Neuts % (Manual) Lymphocytes % (Manual) Monocytes % (Manual) Basophils % (Manual) Seg Neutrophils # Seg Neutrophils # Man Lymphocytes # (Manual) Monocytes # (Manual) Basophils # (Manual) POC ABG pH ABG pH POC ABG pCO2 POC ABG pO2 ABG pO2 ABG Base Excess ABG Hemoglobin Oxyhemoglobin Sodium Potassium Chloride Carbon Dioxide BUN 51 H Creatinine 1.6 H Glucose POC Glucose 186 H 209 H Hemoglobin A1c Calcium Phosphorus Magnesium AST Alkaline Phosphatase Total Protein Albumin Urine WBC (Auto) Urine Creatinine Urine Total Protein Crossmatch 06/09/17 06/09/17 06/09/17 09:56 12:42 18:09 WBC RBC Hgb Hct MCH MCHC RDW Plt Count Lymph % (Auto) [place] % (Auto) [place] # Seg Neutrophils % Seg Neuts % (Manual) Lymphocytes % (Manual) Monocytes % (Manual) Basophils % (Manual) Seg Neutrophils # Seg Neutrophils # Man Lymphocytes # (Manual) Monocytes # (Manual) Basophils # (Manual) POC ABG pH ABG pH POC ABG pCO2 POC ABG pO2 ABG pO2 ABG Base Excess ABG Hemoglobin Oxyhemoglobin Sodium Potassium Chloride Carbon Dioxide BUN Creatinine Glucose POC Glucose 63 L 142 H 166 H Hemoglobin A1c Calcium Phosphorus Magnesium AST Alkaline Phosphatase Total Protein Albumin Urine WBC (Auto) Urine Creatinine Urine Total Protein Crossmatch 06/09/17 06/10/17 06/10/17 23:39 03:24 04:28 WBC 15.1 H RBC 2.99 L Hgb 8.1 L Hct 23.6 L MCH 27 L MCHC 35 H RDW 15.4 H Plt Count 500 H Lymph % (Auto) [place] % (Auto) [place] # Seg Neutrophils % Seg Neuts % (Manual) Lymphocytes % (Manual) Monocytes % (Manual) Basophils % (Manual) Seg Neutrophils # Seg Neutrophils # Man Lymphocytes # (Manual) Monocytes # (Manual) Basophils # (Manual) POC ABG pH 7.461 H ABG pH POC ABG pCO2 POC ABG pO2 131 H ABG pO2 ABG Base Excess ABG Hemoglobin Oxyhemoglobin Sodium Potassium Chloride Carbon Dioxide BUN Creatinine Glucose POC Glucose 284 H Hemoglobin A1c Calcium Phosphorus Magnesium AST Alkaline Phosphatase Total Protein Albumin Urine WBC (Auto) Urine Creatinine Urine Total Protein Crossmatch 06/10/17 06/10/17 06/10/17 04:28 05:10 12:41 WBC RBC Hgb Hct MCH MCHC RDW Plt Count Lymph % (Auto) [place] % (Auto) [place] # Seg Neutrophils % Seg Neuts % (Manual) Lymphocytes % (Manual) Monocytes % (Manual) Basophils % (Manual) Seg Neutrophils # Seg Neutrophils # Man Lymphocytes # (Manual) Monocytes # (Manual) Basophils # (Manual) POC ABG pH ABG pH POC ABG pCO2 POC ABG pO2 ABG pO2 ABG Base Excess ABG Hemoglobin Oxyhemoglobin Sodium Potassium Chloride Carbon Dioxide BUN 53 H Creatinine 1.8 H Glucose 185 H POC Glucose 190 H 50 L Hemoglobin A1c Calcium Phosphorus Magnesium AST Alkaline Phosphatase Total Protein Albumin Urine WBC (Auto) Urine Creatinine Urine Total Protein Crossmatch 06/10/17 06/10/17 06/11/17 14:35 18:31 00:09 WBC RBC Hgb Hct MCH MCHC RDW Plt Count Lymph % (Auto) [place] % (Auto) [place] # Seg Neutrophils % Seg Neuts % (Manual) Lymphocytes % (Manual) Monocytes % (Manual) Basophils % (Manual) Seg Neutrophils # Seg Neutrophils # Man Lymphocytes # (Manual) Monocytes # (Manual) Basophils # (Manual) POC ABG pH ABG pH POC ABG pCO2 POC ABG pO2 ABG pO2 ABG Base Excess ABG Hemoglobin Oxyhemoglobin Sodium Potassium Chloride Carbon Dioxide BUN Creatinine Glucose POC Glucose 58 L 55 L 126 H Hemoglobin A1c Calcium Phosphorus Magnesium AST Alkaline Phosphatase Total Protein Albumin Urine WBC (Auto) Urine Creatinine Urine Total Protein Crossmatch 06/11/17 06/11/17 06/11/17 05:32 06:01 06:03 WBC 15.6 H RBC 3.03 L Hgb 8.3 L Hct 24.0 L MCH MCHC 35 H RDW Plt Count 492 H Lymph % (Auto) [place] % (Auto) [place] # Seg Neutrophils % Seg Neuts % (Manual) Lymphocytes % (Manual) Monocytes % (Manual) Basophils % (Manual) Seg Neutrophils # Seg Neutrophils # Man Lymphocytes # (Manual) Monocytes # (Manual) Basophils # (Manual) POC ABG pH ABG pH POC ABG pCO2 POC ABG pO2 ABG pO2 ABG Base Excess ABG Hemoglobin Oxyhemoglobin Sodium Potassium Chloride Carbon Dioxide BUN 55 H Creatinine 1.8 H Glucose 228 H POC Glucose 219 H Hemoglobin A1c Calcium Phosphorus Magnesium AST Alkaline Phosphatase Total Protein Albumin Urine WBC (Auto) Urine Creatinine Urine Total Protein Crossmatch 06/11/17 06/11/17 06/12/17 11:53 18:31 04:24 WBC 17.4 H RBC 2.90 L Hgb 8.0 L Hct 23.0 L MCH MCHC 35 H RDW Plt Count 460 H Lymph % (Auto) [place] % (Auto) [place] # Seg Neutrophils % Seg Neuts % (Manual) Lymphocytes % (Manual) Monocytes % (Manual) Basophils % (Manual) Seg Neutrophils # Seg Neutrophils # Man Lymphocytes # (Manual) Monocytes # (Manual) Basophils # (Manual) POC ABG pH ABG pH POC ABG pCO2 POC ABG pO2 ABG pO2 ABG Base Excess ABG Hemoglobin Oxyhemoglobin Sodium Potassium Chloride Carbon Dioxide BUN Creatinine Glucose POC Glucose 220 H 254 H Hemoglobin A1c Calcium Phosphorus Magnesium AST Alkaline Phosphatase Total Protein Albumin Urine WBC (Auto) Urine Creatinine Urine Total Protein Crossmatch 06/12/17 06/12/17 06/12/17 05:37 05:40 06:00 WBC RBC Hgb Hct MCH MCHC RDW Plt Count Lymph % (Auto) [place] % (Auto) [place] # Seg Neutrophils % Seg Neuts % (Manual) Lymphocytes % (Manual) Monocytes % (Manual) Basophils % (Manual) Seg Neutrophils # Seg Neutrophils # Man Lymphocytes # (Manual) Monocytes # (Manual) Basophils # (Manual) POC ABG pH ABG pH POC ABG pCO2 POC ABG pO2 ABG pO2 ABG Base Excess ABG Hemoglobin Oxyhemoglobin Sodium Potassium Chloride Carbon Dioxide BUN Creatinine Glucose 41 L POC Glucose < 40 L < 40 L Hemoglobin A1c Calcium Phosphorus Magnesium AST Alkaline Phosphatase Total Protein Albumin Urine WBC (Auto) Urine Creatinine Urine Total Protein Crossmatch 06/12/17 06/12/17 06/12/17 07:09 07:51 10:06 WBC RBC Hgb Hct MCH MCHC RDW Plt Count Lymph % (Auto) [place] % (Auto) [place] # Seg Neutrophils % Seg Neuts % (Manual) Lymphocytes % (Manual) Monocytes % (Manual) Basophils % (Manual) Seg Neutrophils # Seg Neutrophils # Man Lymphocytes # (Manual) Monocytes # (Manual) Basophils # (Manual) POC ABG pH ABG pH POC ABG pCO2 POC ABG pO2 ABG pO2 ABG Base Excess ABG Hemoglobin Oxyhemoglobin Sodium Potassium Chloride Carbon Dioxide BUN Creatinine Glucose POC Glucose 64 L 42 L 61 L Hemoglobin A1c Calcium Phosphorus Magnesium AST Alkaline Phosphatase Total Protein Albumin Urine WBC (Auto) Urine Creatinine Urine Total Protein Crossmatch 06/12/17 06/12/17 06/12/17 11:16 14:04 18:03 WBC RBC Hgb Hct MCH MCHC RDW Plt Count Lymph % (Auto) [place] % (Auto) [place] # Seg Neutrophils % Seg Neuts % (Manual) Lymphocytes % (Manual) Monocytes % (Manual) Basophils % (Manual) Seg Neutrophils # Seg Neutrophils # Man Lymphocytes # (Manual) Monocytes # (Manual) Basophils # (Manual) POC ABG pH ABG pH POC ABG pCO2 POC ABG pO2 ABG pO2 ABG Base Excess ABG Hemoglobin Oxyhemoglobin Sodium Potassium Chloride Carbon Dioxide BUN Creatinine Glucose POC Glucose 67 L 112 H 116 H Hemoglobin A1c Calcium Phosphorus Magnesium AST Alkaline Phosphatase Total Protein Albumin Urine WBC (Auto) Urine Creatinine Urine Total Protein Crossmatch 06/12/17 06/12/17 06/12/17 19:30 20:34 21:01 WBC RBC Hgb Hct MCH MCHC RDW Plt Count Lymph % (Auto) [place] % (Auto) [place] # Seg Neutrophils % Seg Neuts % (Manual) Lymphocytes % (Manual) Monocytes % (Manual) Basophils % (Manual) Seg Neutrophils # Seg Neutrophils # Man Lymphocytes # (Manual) Monocytes # (Manual) Basophils # (Manual) POC ABG pH ABG pH POC ABG pCO2 POC ABG pO2 ABG pO2 ABG Base Excess ABG Hemoglobin Oxyhemoglobin Sodium Potassium Chloride Carbon Dioxide BUN Creatinine Glucose POC Glucose 156 H 172 H 174 H Hemoglobin A1c Calcium Phosphorus Magnesium AST Alkaline Phosphatase Total Protein Albumin Urine WBC (Auto) Urine Creatinine Urine Total Protein Crossmatch 06/12/17 06/12/17 06/13/17 22:00 23:23 00:27 WBC RBC Hgb Hct MCH MCHC RDW Plt Count Lymph % (Auto) [place] % (Auto) [place] # Seg Neutrophils % Seg Neuts % (Manual) Lymphocytes % (Manual) Monocytes % (Manual) Basophils % (Manual) Seg Neutrophils # Seg Neutrophils # Man Lymphocytes # (Manual) Monocytes # (Manual) Basophils # (Manual) POC ABG pH ABG pH POC ABG pCO2 POC ABG pO2 ABG pO2 ABG Base Excess ABG Hemoglobin Oxyhemoglobin Sodium Potassium Chloride Carbon Dioxide BUN Creatinine Glucose POC Glucose 240 H 286 H 182 H Hemoglobin A1c Calcium Phosphorus Magnesium AST Alkaline Phosphatase Total Protein Albumin Urine WBC (Auto) Urine Creatinine Urine Total Protein Crossmatch 06/13/17 06/13/17 06/13/17 01:28 02:10 03:15 WBC RBC Hgb Hct MCH MCHC RDW Plt Count Lymph % (Auto) [place] % (Auto) [place] # Seg Neutrophils % Seg Neuts % (Manual) Lymphocytes % (Manual) Monocytes % (Manual) Basophils % (Manual) Seg Neutrophils # Seg Neutrophils # Man Lymphocytes # (Manual) Monocytes # (Manual) Basophils # (Manual) POC ABG pH ABG pH POC ABG pCO2 POC ABG pO2 ABG pO2 ABG Base Excess ABG Hemoglobin Oxyhemoglobin Sodium Potassium Chloride Carbon Dioxide BUN Creatinine Glucose POC Glucose 304 H 277 H 318 H Hemoglobin A1c Calcium Phosphorus Magnesium AST Alkaline Phosphatase Total Protein Albumin Urine WBC (Auto) Urine Creatinine Urine Total Protein Crossmatch 06/13/17 06/13/17 06/13/17 04:15 05:10 05:38 WBC RBC Hgb Hct MCH MCHC RDW Plt Count Lymph % (Auto) [place] % (Auto) [place] # Seg Neutrophils % Seg Neuts % (Manual) Lymphocytes % (Manual) Monocytes % (Manual) Basophils % (Manual) Seg Neutrophils # Seg Neutrophils # Man Lymphocytes # (Manual) Monocytes # (Manual) Basophils # (Manual) POC ABG pH ABG pH POC ABG pCO2 POC ABG pO2 ABG pO2 ABG Base Excess ABG Hemoglobin Oxyhemoglobin Sodium Potassium Chloride Carbon Dioxide BUN Creatinine Glucose POC Glucose 294 H 275 H 315 H Hemoglobin A1c Calcium Phosphorus Magnesium AST Alkaline Phosphatase Total Protein Albumin Urine WBC (Auto) Urine Creatinine Urine Total Protein Crossmatch 06/13/17 06/13/17 06/13/17 06:21 12:02 16:52 WBC RBC Hgb Hct MCH MCHC RDW Plt Count Lymph % (Auto) [place] % (Auto) [place] # Seg Neutrophils % Seg Neuts % (Manual) Lymphocytes % (Manual) Monocytes % (Manual) Basophils % (Manual) Seg Neutrophils # Seg Neutrophils # Man Lymphocytes # (Manual) Monocytes # (Manual) Basophils # (Manual) POC ABG pH ABG pH POC ABG pCO2 POC ABG pO2 ABG pO2 ABG Base Excess ABG Hemoglobin Oxyhemoglobin Sodium Potassium Chloride Carbon Dioxide BUN Creatinine Glucose POC Glucose 350 H 333 H 343 H Hemoglobin A1c Calcium Phosphorus Magnesium AST Alkaline Phosphatase Total Protein Albumin Urine WBC (Auto) Urine Creatinine Urine Total Protein Crossmatch 06/14/17 06/14/17 06/14/17 00:01 04:18 04:18 WBC 29.6 H RBC 2.81 L Hgb 7.8 L Hct 23.2 L MCH MCHC RDW 15.3 H Plt Count Lymph % (Auto) [place] % (Auto) [place] # Seg Neutrophils % Seg Neuts % (Manual) Lymphocytes % (Manual) Monocytes % (Manual) Basophils % (Manual) Seg Neutrophils # Seg Neutrophils # Man Lymphocytes # (Manual) Monocytes # (Manual) Basophils # (Manual) POC ABG pH ABG pH POC ABG pCO2 POC ABG pO2 ABG pO2 ABG Base Excess ABG Hemoglobin Oxyhemoglobin Sodium Potassium Chloride Carbon Dioxide 20 L BUN 75 H Creatinine 2.2 H Glucose 364 H POC Glucose 297 H Hemoglobin A1c Calcium Phosphorus Magnesium AST Alkaline Phosphatase Total Protein Albumin Urine WBC (Auto) Urine Creatinine Urine Total Protein Crossmatch 06/14/17 06/14/17 06/14/17 05:10 08:25 11:46 WBC RBC Hgb Hct MCH MCHC RDW Plt Count Lymph % (Auto) [place] % (Auto) [place] # Seg Neutrophils % Seg Neuts % (Manual) Lymphocytes % (Manual) Monocytes % (Manual) Basophils % (Manual) Seg Neutrophils # Seg Neutrophils # Man Lymphocytes # (Manual) Monocytes # (Manual) Basophils # (Manual) POC ABG pH ABG pH POC ABG pCO2 POC ABG pO2 ABG pO2 ABG Base Excess ABG Hemoglobin Oxyhemoglobin Sodium Potassium Chloride Carbon Dioxide BUN Creatinine Glucose POC Glucose 350 H 322 H 391 H Hemoglobin A1c Calcium Phosphorus Magnesium AST Alkaline Phosphatase Total Protein Albumin Urine WBC (Auto) Urine Creatinine Urine Total Protein Crossmatch 06/14/17 06/15/17 06/15/17 18:04 00:16 11:20 WBC RBC Hgb Hct MCH MCHC RDW Plt Count Lymph % (Auto) [place] % (Auto) [place] # Seg Neutrophils % Seg Neuts % (Manual) Lymphocytes % (Manual) Monocytes % (Manual) Basophils % (Manual) Seg Neutrophils # Seg Neutrophils # Man Lymphocytes # (Manual) Monocytes # (Manual) Basophils # (Manual) POC ABG pH ABG pH POC ABG pCO2 POC ABG pO2 ABG pO2 ABG Base Excess ABG Hemoglobin Oxyhemoglobin Sodium Potassium Chloride Carbon Dioxide 21 L BUN 88 H Creatinine 2.7 H Glucose 302 H POC Glucose 384 H 435 H Hemoglobin A1c Calcium Phosphorus Magnesium AST Alkaline Phosphatase Total Protein Albumin Urine WBC (Auto) Urine Creatinine Urine Total Protein Crossmatch 06/15/17 06/15/17 06/15/17 11:47 17:35 21:33 WBC RBC Hgb Hct MCH MCHC RDW Plt Count Lymph % (Auto) [place] % (Auto) [place] # Seg Neutrophils % Seg Neuts % (Manual) Lymphocytes % (Manual) Monocytes % (Manual) Basophils % (Manual) Seg Neutrophils # Seg Neutrophils # Man Lymphocytes # (Manual) Monocytes # (Manual) Basophils # (Manual) POC ABG pH ABG pH POC ABG pCO2 POC ABG pO2 ABG pO2 ABG Base Excess ABG Hemoglobin Oxyhemoglobin Sodium Potassium Chloride Carbon Dioxide BUN Creatinine Glucose POC Glucose 311 H 428 H 346 H Hemoglobin A1c Calcium Phosphorus Magnesium AST Alkaline Phosphatase Total Protein Albumin Urine WBC (Auto) Urine Creatinine Urine Total Protein Crossmatch 06/15/17 06/15/17 06/16/17 23:23 Unknown 05:36 WBC RBC Hgb Hct MCH MCHC RDW Plt Count Lymph % (Auto) [place] % (Auto) [place] # Seg Neutrophils % Seg Neuts % (Manual) Lymphocytes % (Manual) Monocytes % (Manual) Basophils % (Manual) Seg Neutrophils # Seg Neutrophils # Man Lymphocytes # (Manual) Monocytes # (Manual) Basophils # (Manual) POC ABG pH ABG pH POC ABG pCO2 POC ABG pO2 ABG pO2 ABG Base Excess ABG Hemoglobin 10.1 L Oxyhemoglobin 94.9 L Sodium Potassium Chloride Carbon Dioxide BUN Creatinine Glucose POC Glucose 351 H 303 H Hemoglobin A1c Calcium Phosphorus Magnesium AST Alkaline Phosphatase Total Protein Albumin Urine WBC (Auto) Urine Creatinine Urine Total Protein Crossmatch 06/16/17 06/16/17 06/16/17 06:33 06:33 08:26 WBC 25.8 H RBC 2.68 L Hgb 7.2 L Hct 21.6 L MCH 27 L MCHC RDW 15.9 H Plt Count Lymph % (Auto) [place] % (Auto) [place] # Seg Neutrophils % Seg Neuts % (Manual) Lymphocytes % (Manual) Monocytes % (Manual) Basophils % (Manual) Seg Neutrophils # Seg Neutrophils # Man Lymphocytes # (Manual) Monocytes # (Manual) Basophils # (Manual) POC ABG pH ABG pH POC ABG pCO2 POC ABG pO2 ABG pO2 ABG Base Excess ABG Hemoglobin Oxyhemoglobin Sodium Potassium Chloride Carbon Dioxide 21 L BUN 94 H Creatinine 2.7 H Glucose 280 H POC Glucose Hemoglobin A1c Calcium Phosphorus Magnesium AST Alkaline Phosphatase Total Protein Albumin Urine WBC (Auto) > 182.0 H Urine Creatinine Urine Total Protein Crossmatch 06/16/17 06/16/17 06/16/17 08:26 11:45 18:28 WBC RBC Hgb Hct MCH MCHC RDW Plt Count Lymph % (Auto) [place] % (Auto) [place] # Seg Neutrophils % Seg Neuts % (Manual) Lymphocytes % (Manual) Monocytes % (Manual) Basophils % (Manual) Seg Neutrophils # Seg Neutrophils # Man Lymphocytes # (Manual) Monocytes # (Manual) Basophils # (Manual) POC ABG pH ABG pH POC ABG pCO2 POC ABG pO2 ABG pO2 ABG Base Excess ABG Hemoglobin Oxyhemoglobin Sodium Potassium Chloride Carbon Dioxide BUN Creatinine Glucose POC Glucose 263 H 175 H Hemoglobin A1c Calcium Phosphorus Magnesium AST Alkaline Phosphatase Total Protein Albumin Urine WBC (Auto) Urine Creatinine 119.9 H Urine Total Protein 295 H Crossmatch 06/16/17 06/17/17 06/17/17 23:36 03:51 04:04 WBC 28.1 H RBC 2.61 L Hgb 7.1 L Hct 21.5 L MCH 27 L MCHC RDW 15.8 H Plt Count Lymph % (Auto) [place] % (Auto) [place] # Seg Neutrophils % Seg Neuts % (Manual) 90.5 H Lymphocytes % (Manual) 2.0 L Monocytes % (Manual) Basophils % (Manual) Seg Neutrophils # Seg Neutrophils # Man 25.4 H Lymphocytes # (Manual) 0.6 L Monocytes # (Manual) 1.5 H Basophils # (Manual) POC ABG pH ABG pH 7.483 H POC ABG pCO2 POC ABG pO2 ABG pO2 144.0 H ABG Base Excess -2.1 L ABG Hemoglobin 6.5 L Oxyhemoglobin Sodium Potassium Chloride Carbon Dioxide BUN Creatinine Glucose POC Glucose 152 H Hemoglobin A1c Calcium Phosphorus Magnesium AST Alkaline Phosphatase Total Protein Albumin Urine WBC (Auto) Urine Creatinine Urine Total Protein Crossmatch 06/17/17 06/17/17 06/17/17 04:04 05:34 09:34 WBC RBC Hgb Hct MCH MCHC RDW Plt Count Lymph % (Auto) [place] % (Auto) [place] # Seg Neutrophils % Seg Neuts % (Manual) Lymphocytes % (Manual) Monocytes % (Manual) Basophils % (Manual) Seg Neutrophils # Seg Neutrophils # Man Lymphocytes # (Manual) Monocytes # (Manual) Basophils # (Manual) POC ABG pH ABG pH POC ABG pCO2 POC ABG pO2 ABG pO2 ABG Base Excess ABG Hemoglobin Oxyhemoglobin Sodium 136 L Potassium Chloride Carbon Dioxide 20 L BUN 97 H Creatinine 2.7 H Glucose 151 H POC Glucose 203 H 243 H Hemoglobin A1c Calcium Phosphorus Magnesium AST Alkaline Phosphatase Total Protein Albumin Urine WBC (Auto) Urine Creatinine Urine Total Protein Crossmatch 06/17/17 06/17/17 06/17/17 12:36 17:24 21:36 WBC RBC Hgb Hct MCH MCHC RDW Plt Count Lymph % (Auto) [place] % (Auto) [place] # Seg Neutrophils % Seg Neuts % (Manual) Lymphocytes % (Manual) Monocytes % (Manual) Basophils % (Manual) Seg Neutrophils # Seg Neutrophils # Man Lymphocytes # (Manual) Monocytes # (Manual) Basophils # (Manual) POC ABG pH ABG pH POC ABG pCO2 POC ABG pO2 ABG pO2 ABG Base Excess ABG Hemoglobin Oxyhemoglobin Sodium Potassium Chloride Carbon Dioxide BUN Creatinine Glucose POC Glucose 214 H 131 H 175 H Hemoglobin A1c Calcium Phosphorus Magnesium AST Alkaline Phosphatase Total Protein Albumin Urine WBC (Auto) Urine Creatinine Urine Total Protein Crossmatch 06/18/17 06/18/17 06/18/17 00:14 04:55 10:57 WBC RBC Hgb Hct MCH MCHC RDW Plt Count Lymph % (Auto) [place] % (Auto) [place] # Seg Neutrophils % Seg Neuts % (Manual) Lymphocytes % (Manual) Monocytes % (Manual) Basophils % (Manual) Seg Neutrophils # Seg Neutrophils # Man Lymphocytes # (Manual) Monocytes # (Manual) Basophils # (Manual) POC ABG pH ABG pH POC ABG pCO2 POC ABG pO2 ABG pO2 ABG Base Excess ABG Hemoglobin Oxyhemoglobin Sodium 134 L Potassium Chloride Carbon Dioxide 19 L BUN 107 H Creatinine 2.7 H Glucose 196 H POC Glucose 171 H 161 H Hemoglobin A1c Calcium Phosphorus Magnesium AST Alkaline Phosphatase Total Protein Albumin Urine WBC (Auto) Urine Creatinine Urine Total Protein Crossmatch 06/18/17 06/18/17 06/19/17 17:31 23:25 04:24 WBC 33.8 H RBC 2.46 L Hgb 6.7 L Hct 20.0 L MCH 27 L MCHC RDW 15.4 H Plt Count Lymph % (Auto) [place] % (Auto) [place] # Seg Neutrophils % Seg Neuts % (Manual) 91.0 H Lymphocytes % (Manual) 2.0 L Monocytes % (Manual) Basophils % (Manual) Seg Neutrophils # Seg Neutrophils # Man 30.8 H Lymphocytes # (Manual) 0.7 L Monocytes # (Manual) 2.0 H Basophils # (Manual) POC ABG pH ABG pH POC ABG pCO2 POC ABG pO2 ABG pO2 ABG Base Excess ABG Hemoglobin Oxyhemoglobin Sodium Potassium Chloride Carbon Dioxide BUN Creatinine Glucose POC Glucose 241 H 303 H Hemoglobin A1c Calcium Phosphorus Magnesium AST Alkaline Phosphatase Total Protein Albumin Urine WBC (Auto) Urine Creatinine Urine Total Protein Crossmatch 06/19/17 06/19/17 06/19/17 04:24 05:19 12:14 WBC RBC Hgb Hct MCH MCHC RDW Plt Count Lymph % (Auto) [place] % (Auto) [place] # Seg Neutrophils % Seg Neuts % (Manual) Lymphocytes % (Manual) Monocytes % (Manual) Basophils % (Manual) Seg Neutrophils # Seg Neutrophils # Man Lymphocytes # (Manual) Monocytes # (Manual) Basophils # (Manual) POC ABG pH ABG pH POC ABG pCO2 POC ABG pO2 ABG pO2 ABG Base Excess ABG Hemoglobin Oxyhemoglobin Sodium 135 L Potassium Chloride 97.2 L Carbon Dioxide 20 L BUN 116 H Creatinine 3.1 H Glucose 220 H POC Glucose 238 H 224 H Hemoglobin A1c Calcium Phosphorus Magnesium AST Alkaline Phosphatase Total Protein Albumin Urine WBC (Auto) Urine Creatinine Urine Total Protein Crossmatch 06/19/17 06/19/17 06/20/17 16:45 16:50 04:34 WBC 36.4 H RBC 2.86 L Hgb 7.8 L Hct 24.4 L MCH 27 L MCHC RDW 16.2 H Plt Count 441 H Lymph % (Auto) [place] % (Auto) [place] # Seg Neutrophils % Seg Neuts % (Manual) 72.0 H Lymphocytes % (Manual) 9.0 L Monocytes % (Manual) 9.0 H Basophils % (Manual) Seg Neutrophils # Seg Neutrophils # Man 26.2 H Lymphocytes # (Manual) Monocytes # (Manual) 3.3 H Basophils # (Manual) POC ABG pH ABG pH POC ABG pCO2 POC ABG pO2 ABG pO2 ABG Base Excess ABG Hemoglobin Oxyhemoglobin Sodium Potassium Chloride Carbon Dioxide BUN Creatinine Glucose POC Glucose 177 H Hemoglobin A1c Calcium Phosphorus Magnesium AST Alkaline Phosphatase Total Protein Albumin Urine WBC (Auto) Urine Creatinine Urine Total Protein Crossmatch See Detail 06/20/17 06/20/17 06/20/17 04:34 04:58 12:33 WBC RBC Hgb Hct MCH MCHC RDW Plt Count Lymph % (Auto) [place] % (Auto) [place] # Seg Neutrophils % Seg Neuts % (Manual) Lymphocytes % (Manual) Monocytes % (Manual) Basophils % (Manual) Seg Neutrophils # Seg Neutrophils # Man Lymphocytes # (Manual) Monocytes # (Manual) Basophils # (Manual) POC ABG pH ABG pH POC ABG pCO2 POC ABG pO2 ABG pO2 ABG Base Excess ABG Hemoglobin Oxyhemoglobin Sodium Potassium Chloride Carbon Dioxide 18 L BUN 109 H Creatinine 2.8 H Glucose POC Glucose 108 H 130 H Hemoglobin A1c Calcium Phosphorus Magnesium AST Alkaline Phosphatase Total Protein Albumin Urine WBC (Auto) Urine Creatinine Urine Total Protein Crossmatch 06/20/17 06/20/17 06/21/17 17:06 23:33 05:23 WBC RBC Hgb Hct MCH MCHC RDW Plt Count Lymph % (Auto) [place] % (Auto) [place] # Seg Neutrophils % Seg Neuts % (Manual) Lymphocytes % (Manual) Monocytes % (Manual) Basophils % (Manual) Seg Neutrophils # Seg Neutrophils # Man Lymphocytes # (Manual) Monocytes # (Manual) Basophils # (Manual) POC ABG pH ABG pH POC ABG pCO2 POC ABG pO2 ABG pO2 ABG Base Excess ABG Hemoglobin Oxyhemoglobin Sodium Potassium Chloride Carbon Dioxide 18 L BUN 105 H Creatinine 2.5 H Glucose 154 H POC Glucose 154 H 174 H Hemoglobin A1c Calcium Phosphorus Magnesium AST Alkaline Phosphatase Total Protein Albumin Urine WBC (Auto) Urine Creatinine Urine Total Protein Crossmatch 06/21/17 06:05 WBC RBC Hgb Hct MCH MCHC RDW Plt Count Lymph % (Auto) [place] % (Auto) [place] # Seg Neutrophils % Seg Neuts % (Manual) Lymphocytes % (Manual) Monocytes % (Manual) Basophils % (Manual) Seg Neutrophils # Seg Neutrophils # Man Lymphocytes # (Manual) Monocytes # (Manual) Basophils # (Manual) POC ABG pH ABG pH POC ABG pCO2 POC ABG pO2 ABG pO2 ABG Base Excess ABG Hemoglobin Oxyhemoglobin Sodium Potassium Chloride Carbon Dioxide BUN Creatinine Glucose POC Glucose 168 H Hemoglobin A1c Calcium Phosphorus Magnesium AST Alkaline Phosphatase Total Protein Albumin Urine WBC (Auto) Urine Creatinine Urine Total Protein Crossmatch
--- NOTE | 2017-06-21 13:09 | Progress Note ---
Assessment and Plan /Sepsis, with leukocytosis, tachycardia tachypnea - Pneumonia versus UTI versus atelectasis - Continue antibiotics for now with Vanc and cefepime - consulted ID for further recommendation /PNA with sepsis - Placed on cefepime, also continue vancomycin as white count trending up - will follow ID recommendation /Acute hypoxic respiratory failure -was intubated, on mechanical ventilation>96hrs, now tracheostomy to ventilator -Had PEG and Trach, 06/11/17 - s/p bronch on 05/17 showed Right upper lobe atelectasis, respiratory failure partial mucous plugging right upper lobe - BAL positive for Klebsiella pneumoniae, sensitive to cefepime /Status post cardiac arrest - Cardiology following - EF 15-20% /Acute encephalopathy with anoxic hypoxic brain injury -Continue supportive care - discussion with family in progress for comfort care - Neurology following the patient and recommended a DO NOT RESUSCITATE followed by comfort care /Seizure disorder-complex partial - Patient is on IV Keppra -Neurology following Cardiomyopathy -Cardiology following, continue aspirin, statin, beta jas, lasix - ACEI on hold for JERRI Hyperosmolar hyperglycemic syndrome in Diabetes mellitus type 2. This had resolved - She was on Insulin drip, now on subcut Insulin - Insulin dose increased to 25 Units bid because of hyperglycemia /Hypoglycemia.episodes, Now resolved /Acute kidney injury, likely vasomotor nephropathy -Creatinine 2.8 today - Nephrology following /Hypertension. BP stable with beta jas, hydralazine, Imdur, lasix /Anemia, s/p 1 unit PRBC transfusion, r/o GI loss, stool for occult pending /Nutrition - not tolerating TF, high residual, start on d5NS @ 30Ml/H, also try reglan q6h /Disposition - Continue ICU care. poor prognosis - may need LTAC placement if family does not want comfort care /DVT prophylaxis with Lovenox POOR PROGNOSIS DNR status Brief history: Patient had 36-year-old -[place] female was admitted to the floor for seizure episode, altered mental status, acute hypoxic respiratory failure, patient was intubated in the emergency department patient had PEA and resuscitated successfully. She was placed on trach and PEG tube on 06/11/17. Neurology was consulted and recommended DNR and comfort care. Family now wished for DNR but still deciding for comfort care. Radiological studies: CXRys: No infiltrates, atelectasis Abdominal xrys CT head - no bleed, mass or acute CVA MRI brain: Extensive anoxic brain injury, mastoiditis Hospitalist Physical Gen appearance:Not in acute distress, lying in bed, obese HEENT: facial edema, Neck:supple, no JVD, Tracheostomy Lungs: Coarse breath sounds bilaterally, no wheeze Heart: S1 and S2 regular, no murmurs, rubs or gallop Abdomen: soft, non tender, non distended, normal bowel sounds, PEG tube present Ext: Edema both upper and lower extremities, no cyanosis,anasarca Neuro: Unresponsive Subjective Date of service: 06/21/17 Principal diagnosis: coma Interval history: pt seen and examined Unresponsive, No fever PEG and Trach done 06/11 s/p bronch on 05/17 The WBC count trending up, not tolerating TF Objective - Constitutional Vitals: Vital Signs - 12hr 06/21/17 06/21/17 06/21/17 02:00 03:00 04:00 Temperature 98.0 F Pulse Rate 82 83 81 Pulse Rate [ From Monitor] Respiratory 21 22 19 Rate Blood Pressure 138/69 134/70 138/68 O2 Sat by Pulse 98 98 100 Oximetry O2 Sat by Pulse Oximetry [ Assessment] 06/21/17 06/21/17 06/21/17 05:00 06:00 07:00 Temperature Pulse Rate 84 84 87 Pulse Rate [ From Monitor] Respiratory 21 18 16 Rate Blood Pressure 140/71 137/70 149/73 O2 Sat by Pulse 98 98 98 Oximetry O2 Sat by Pulse Oximetry [ Assessment] 06/21/17 06/21/17 06/21/17 08:00 09:00 09:05 Temperature 98.5 F Pulse Rate 85 87 88 Pulse Rate [ 121 H From Monitor] Respiratory 18 18 Rate Blood Pressure 137/72 129/69 129/69 O2 Sat by Pulse 96 97 Oximetry O2 Sat by Pulse Oximetry [ Assessment] 06/21/17 06/21/17 06/21/17 09:25 10:00 11:00 Temperature Pulse Rate 89 87 83 Pulse Rate [ From Monitor] Respiratory 20 21 Rate Blood Pressure 129/69 133/72 130/70 O2 Sat by Pulse 100 97 97 Oximetry O2 Sat by Pulse 99 Oximetry [ Assessment] 06/21/17 12:00 Temperature 98.6 F Pulse Rate Pulse Rate [ From Monitor] Respiratory 20 Rate Blood Pressure O2 Sat by Pulse 100 Oximetry O2 Sat by Pulse Oximetry [ Assessment] - Labs CBC & Chem 7: 06/21/17 16:52 06/21/17 05:23 Labs: Abnormal lab results 06/20/17 06/20/17 06/20/17 Range/Units 12:33 17:06 23:33 Carbon Dioxide (22-30) mmol/L BUN (7-17) mg/dL Creatinine (0.7-1.2) mg/dL Glucose (65-100) mg/dL POC Glucose 130 H 154 H 174 H (70-105) 06/21/17 06/21/17 06/21/17 Range/Units 05:23 06:05 09:12 Carbon Dioxide 18 L (22-30) mmol/L BUN 105 H (7-17) mg/dL Creatinine 2.5 H (0.7-1.2) mg/dL Glucose 154 H (65-100) mg/dL POC Glucose 168 H 183 H (70-105) 06/21/17 Range/Units 11:55 Carbon Dioxide (22-30) mmol/L BUN (7-17) mg/dL Creatinine (0.7-1.2) mg/dL Glucose (65-100) mg/dL POC Glucose 174 H (70-105)
--- NOTE | 2017-06-21 14:46 | Progress Note ---
Assessment and Plan - Patient Problems (1) Acute renal failure with tubular necrosis Current Visit: Yes Status: Acute Plan to address problem: Non-Oliguric Acute renal failure/acute tubular necrosis. Kidney function is now improving . Follow kidney function and electrolytes on diuretics. (2) Acute respiratory failure Current Visit: Yes Status: Acute Qualifiers: Respiratory failure complication: hypoxia Qualified Code(s): J96.01 - Acute respiratory failure with hypoxia Plan to address problem: Continue Ventilator management by primary attending (3) Acute systolic heart failure Current Visit: Yes Status: Acute Plan to address problem: Continue diuretics and beta jas. Decrease the dose of diuretics. Hold spironolactone. ARAM inhibitor/angiotensin receptor jas contraindicated due to her history of allergy (4) Hyperosmolar non-ketotic state in patient with type 2 diabetes mellitus Current Visit: Yes Status: Acute Plan to address problem: Blood sugar management by primary attending (5) Hypertension Current Visit: Yes Status: Acute Qualifiers: Hypertension type: essential hypertension Qualified Code(s): I10 - Essential (primary) hypertension Plan to address problem: Blood pressure has improved. Follow blood pressure on current medications Subjective Date of service: 06/21/17 Principal diagnosis: coma Interval history: Patient seen lying in bed in the intensive care unit. On ventilator. Not communicating. Not following commands. No family at bedside Vent settings CMV 450/12/35% PEEP of 5 Objective - Exam Narrative Exam: Young -[place] female lying in bed trach intact on ventilator HEENT: NCAT, Neck: Supple, no venous distention CVS: S1S2 RRR with no murmur, rub or gallop Chest: Coarse breath sounds with Low pitched rhonchi bilaterally Abdomen: Protuberant, soft, nontender, no organomegaly, bowel sounds are present Extremities: 1+ bilateral edema both upper and lower extremities Neuro: Eyes open, not following commands - Vital Signs Vital signs: Vital Signs - 12hr 06/21/17 06/21/17 06/21/17 03:00 04:00 05:00 Temperature 98.0 F Pulse Rate 83 81 84 Pulse Rate [ From Monitor] Respiratory 22 19 21 Rate Blood Pressure 134/70 138/68 140/71 O2 Sat by Pulse 98 100 98 Oximetry O2 Sat by Pulse Oximetry [ Assessment] 06/21/17 06/21/17 06/21/17 06:00 07:00 08:00 Temperature 98.5 F Pulse Rate 84 87 85 Pulse Rate [ 121 H From Monitor] Respiratory 18 16 18 Rate Blood Pressure 137/70 149/73 137/72 O2 Sat by Pulse 98 98 96 Oximetry O2 Sat by Pulse Oximetry [ Assessment] 06/21/17 06/21/17 06/21/17 09:00 09:05 09:25 Temperature Pulse Rate 87 88 89 Pulse Rate [ From Monitor] Respiratory 18 Rate Blood Pressure 129/69 129/69 129/69 O2 Sat by Pulse 97 100 Oximetry O2 Sat by Pulse 99 Oximetry [ Assessment] 06/21/17 06/21/17 06/21/17 10:00 11:00 12:00 Temperature 98.6 F Pulse Rate 87 83 83 Pulse Rate [ 121 H From Monitor] Respiratory 19 21 22 Rate Blood Pressure 133/72 130/70 138/73 O2 Sat by Pulse 100 97 98 Oximetry O2 Sat by Pulse Oximetry [ Assessment] 06/21/17 06/21/17 06/21/17 13:00 13:10 13:40 Temperature Pulse Rate 82 83 81 Pulse Rate [ From Monitor] Respiratory 22 Rate Blood Pressure 130/71 130/71 130/71 O2 Sat by Pulse 97 100 Oximetry O2 Sat by Pulse Oximetry [ Assessment] 06/21/17 14:00 Temperature Pulse Rate 79 Pulse Rate [ 121 H From Monitor] Respiratory 21 Rate Blood Pressure 129/65 O2 Sat by Pulse 98 Oximetry O2 Sat by Pulse Oximetry [ Assessment] - Lab 06/20/17 04:34 06/21/17 05:23 Most recent lab results ABG pH 7.483 pH Units (7.350-7.450) H 06/17/17 03:51 ABG pCO2 28.7 mm Hg 06/17/17 03:51 ABG pO2 144.0 mm Hg (80.0-90.0) H 06/17/17 03:51 ABG HCO3 21.1 mmol/L (20.0-26.0) 06/17/17 03:51 ABG O2 Saturation 98.9 % (95.0-99.0) 06/17/17 03:51 Calcium 8.5 mg/dL (8.4-10.2) 06/21/17 05:23 Phosphorus 4.10 mg/dL (2.5-4.5) 06/21/17 05:23 Magnesium 1.70 mg/dL (1.7-2.3) 06/07/17 07:51 Urine Creatinine 119.9 mg/dL (0.1-20.0) H 06/16/17 08:26 Urine Sodium 39 mmol/L 06/16/17 08:26 Urine Total Protein 295 mg/dL (5-11.8) H 06/16/17 08:26
[2017-06-21] MEDS ORDERED: REGLAN PO PRN (16:27)
[2017-06-21] MEDS ORDERED: D5W 1,000 ML IV SCH (17:00)
[2017-06-21 17:09] LABS: Hematocrit 26.1 % (30.3-42.9); Mean Corpuscular HGB Conc 31 % (30-34); Mean Corpuscular Hemoglobin 27 pg (28-32); Mean Corpuscular Volume 87 fl (79-97); Platelet Count 413 K/mm3 (140-440); Red Blood Count 2.98 M/mm3 (3.65-5.03); Red Cell Distribution Width 16.6 % (13.2-15.2)
[2017-06-21] MEDS: REGLAN PO SCH ×2 (17:10→22:26)
[2017-06-22] MEDS: HumaLOG SUB-Q SCH ×5 (00:20→23:49)
[2017-06-22 05:21] LABS: Hematocrit 23.9 % (30.3-42.9); Hemoglobin 7.9 gm/dl (10.1-14.3); Mean Corpuscular HGB Conc 33 % (30-34); Mean Corpuscular Hemoglobin 28 pg (28-32); Mean Corpuscular Volume 83 fl (79-97); Platelet Count 493 K/mm3 (140-440); Red Blood Count 2.88 M/mm3 (3.65-5.03); Red Cell Distribution Width 16.4 % (13.2-15.2)
[2017-06-22 05:42] LABS: Calcium 8.4 mg/dL (8.4-10.2)
[2017-06-22 06:09] LABS: Anisocytosis 1+; Band Neutrophils # (Manual) 0.3 K/mm3; Basophilic Stippling Few; Basophils % (Manual) 0 % (0.0-1.8); Giant Platelets Rare; Myelocytes # (Manual) 0.3 K/mm3; Poikilocytosis 1+; Total Cells Counted 100
[2017-06-22 06:10] LABS: Helmet Cells Few; Ovalocytes 1+; Schistocytes Rare; Tear Drop Cells Few
[2017-06-22] MEDS: APRESOLINE PO SCH ×3 (06:11→21:45)
[2017-06-22] MEDS: ISORDIL TITRADOSE PO SCH ×3 (06:12→21:46)
[2017-06-22] MEDS: REGLAN PO SCH (06:12)
--- NOTE | 2017-06-22 08:25 | Consultation ---
History of Present Illness - Reason for Consult Consult date: 06/22/17 Leukocytosis Requesting physician: CHEIKH SR - History of Present Illness #6 yo AA F PMH HTN, DM, seizure disorder who was brought to the emergency room on 05/30/17 after sustaining 2 episodes of grand mal type seizures at home. History is obtained from records since patient is currently intubated in the ICU. In the ER patient was quite agitated and had to be intubated for airway protection. During intubation patient sustained PEA arrest and was resuscitated. In the ER patient was febrile with a temperature of 101.1, pulse 101, respiratory rate 23, saturation 59% prior to intubation, blood pressure 191 /119. White blood cell count was 11.5, hemoglobin and hematocrit 12.0 and 36.8 , platelets 383. BUN and creatinine were 27 and 2.0. Urine toxicology was negative. The glucose was 741. Urinalysis showed negative nitrates, negative leukocytes esterase, WBC 2.0, RBC 5.0. Blood cultures on 05/31 were negative. CXR on admission showed pulmonary venous congestion. CT head was negative for acute findings. She was started on Zosyn and vancomycin. She was admitted to the intensive care unit. She has remained unresponsive. MRI of the brain on showed anoxic encephalopathy, acute sphenoid sinusitis and mild Left mastoiditis. She underwent tracheostomy and G tube placement on 06/11/17. Chest x-rays have shown bilateral pulmonary opacities due to edema, atelectasis and/ or pneumonia. On 06/17/17 she underwent bronchoscopy and BAL, which showed right upper lobe atelectasis and partial mucous plugging of the right upper lobe. BAL culture grew Klebsiella pneumoniae and Serratia marcescens. She was started on cefepime and vancomycin for 06/15/17. During her inpatient course her white blood cell count has remained elevated. As high as 36.4 on 06/20/17. She had had some intermittent low-grade fevers on 06/12, 06/14, 06/15, 06/18. Infectious diseases is consulted to help with further antibiotic management. Microbiology Blood cultures 05/31/17 negative 06/21/17 pending Sputum 05/30 normal tato BAL culture 06/17/17 Klebsiella pneumonia and Serratia marcescens Antimicrobials Cefepime 06/15/17- IV vancomycin 06/15/17- Prior antimicrobials Zosyn 05/31-06/02/17 Vancomycin 05/31-06/02/17 Cefazolin 06/11/17 Past History Past Medical History: diabetes, hypertension, seizures, other (gastroparesis) Past Surgical History: cholecystectomy, Other (botox for gastroparesis, bilateral breast reduction) Social history: no significant social history, , other (some marijuana to help gastroparesis.). denies: smoking, alcohol abuse (as one drink per month her mother estimates.), prescription drug abuse, IV drug use Family history: no significant family history, diabetes (both sides family), hypertension (both sides of family), stroke (mother), other (epilepsy in paternal first cousin and a first cousin wants removed on maternal side) Medications and Allergies Allergies Allergy/AdvReac Type Severity Reaction Status Date / Time lisinopril Allergy Angioedema Verified 12/30/16 12:06 Home Medications Medication Instructions Recorded Confirmed Last Taken Type Insulin Regular, Human [Novolin R] 22 units SQ AC 30 Days vial 01/01/17 Unknown Rx Bumetanide [Bumetanide 2 mg tab] 2 mg PO DAILY 06/02/17 06/02/17 Unknown History Carvedilol [Coreg] 6.25 mg PO BID 06/02/17 06/02/17 Unknown History Dicyclomine [Bentyl] 1 cap PO BID PRN 06/02/17 06/02/17 Unknown History Furosemide [Lasix TAB] 40 mg PO QDAY 06/02/17 06/02/17 Unknown History HYDROcodone/APAP 5-325 1 - 2 tab PO Q6HR PRN 06/02/17 06/02/17 Unknown History Metoclopramide [Reglan TAB] 1 tab PO Q6HR 06/02/17 06/02/17 Unknown History Pantoprazole [Protonix] 40 mg PO QDAY 06/02/17 06/02/17 Unknown History Valsartan/Hydrochlorothiazide 1 tab PO DAILY 06/02/17 06/02/17 Unknown History [Valsartan-Hctz 160-12.5 mg Tab] Active Meds: Active Medications Acetaminophen (Tylenol) 650 mg FEEDTUBE Q6H PRN PRN Reason: Pain, Mild (1-3) Last Admin: 05/30/17 22:44 Dose: 650 mg Lipase/Protease/Amylase (Pancreaze 10,500 Unit) 1 each FEEDTUBE PRN PRN PRN Reason: For Clogged Feeding Tube Lipase/Protease/Amylase (Pancreaze Dr 10,500 Unit) 1 each FEEDTUBE PRN PRN PRN Reason: For Clogged Feeding Tube Atorvastatin Calcium (Lipitor) 40 mg PO QHS [facility] Last Admin: 06/21/17 22:27 Dose: 40 mg Carvedilol (Coreg) 25 mg PO BID [facility] Last Admin: 06/21/17 22:27 Dose: 25 mg Dextrose (D50w (25gm) Syringe) 0 ml IV PRN PRN PRN Reason: Hypoglycemia Last Admin: 06/12/17 08:26 Dose: 50 ml Enoxaparin Sodium (Lovenox) 30 mg SUB-Q QDAY [facility] Last Admin: 06/21/17 09:05 Dose: 30 mg Furosemide (Lasix) 40 mg PO QDAY [facility] Last Admin: 06/21/17 09:05 Dose: 40 mg Glycopyrrolate (Robinul) 1 mg FEEDTUBE TID [facility] Last Admin: 06/21/17 22:26 Dose: 1 mg Hydralazine HCl (Apresoline) 10 mg IV Q6HR PRN PRN Reason: Hypertension Last Admin: 06/07/17 01:01 Dose: 10 mg Hydralazine HCl (Apresoline) 50 mg PO Q8HR [facility] Last Admin: 06/22/17 06:11 Dose: 50 mg Hydrophilic Ointment (Vaseline Lip Therapy) 1 applic TP Q2HR PRN PRN Reason: Dry Lips Last Admin: 06/02/17 17:03 Dose: 1 applic Cefepime HCl 2 gm/ Sodium (Chloride) 20 mls @ 2 mls/min IV Q24HR [facility] Last Admin: 06/21/17 09:04 Dose: 2 mls/min Dextrose (D5w) 1,000 mls @ 30 mls/hr IV DIRECT [facility] Last Admin: 06/21/17 17:12 Dose: 30 mls/hr Insulin Human Isoph/Insulin Regular (Humulin 70/30) 35 unit SUB-Q BID [facility] Last Admin: 06/21/17 22:27 Dose: 35 unit Insulin Human Lispro (Humalog) 0 unit SUB-Q Q6HR [facility]; Protocol Last Admin: 06/22/17 06:09 Dose: 3 unit Isosorbide Dinitrate (Isordil Titradose) 10 mg PO Q8HR [facility] Last Admin: 06/22/17 06:12 Dose: 10 mg Levetiracetam (Keppra) 750 mg PO BID [facility] Last Admin: 06/21/17 22:25 Dose: 750 mg Metoclopramide HCl (Reglan) 10 mg PO Q6H [facility] Last Admin: 06/22/17 06:12 Dose: 10 mg Multi-Ingred Cream/Lotion/Oil/Oint (Artificial Tears Ophth Oint) 1 applic OU Q4HR PRN PRN Reason: Dry Eye(s) Last Admin: 06/08/17 11:06 Dose: 1 applic Simple Syrup (Simple Syrup) 15 ml FEEDTUBE PRN PRN PRN Reason: Hypoglycemia Simple Syrup (Simple Syrup) 30 ml FEEDTUBE PRN PRN PRN Reason: Hypoglycemia Simple Syrup (Simple Syrup) 15 ml FEEDTUBE PRN PRN PRN Reason: Hypoglycemia Simple Syrup (Simple Syrup) 30 ml FEEDTUBE PRN PRN PRN Reason: Hypoglycemia Sodium Bicarbonate (Sodium Bicarbonate) 325 mg FEEDTUBE PRN PRN PRN Reason: For Clogged Feeding Tube Sodium Bicarbonate (Sodium Bicarbonate) 325 mg FEEDTUBE PRN PRN PRN Reason: For Clogged Feeding Tube Sodium Chloride (Nacl 0.9% 500 Ml) 1 ml IV DIRECT [facility] Vancomycin HCl (Vancomycin Pharmacy To Dose) 1 each IV PKCONSULT GUZMAN Review of Systems ROS unobtainable: due to endotracheal tube Physical Examination - Physical Exam Narrative exam: General appearance: Pt in NAD, on the vent, off sedation, not responsive. Eyes: anicteric sclerae, moist conjunctivae; pupils sluggish. HENT: Atraumatic. Trach in place. Neck: Supple. Lungs: CTA, with normal respiratory effort and no intercostal retractions CV: S1,S2. Abdomen: Soft, non-tender; non-distended. G tube in place, site clean. Rectal: rectal tube in place, empty bag. : blas catheter in place. Extremities: Hands edema Skin: Normal temperature, turgor and texture; no rash, ulcers or subcutaneous nodules Psych: Not responsive. Neuro: Not responsive, off sedation. Lines: RUE midline. - Constitutional Vitals: Vital Signs Temp Pulse Resp BP Pulse Ox 98.5 F 85 18 129/64 99 06/22/17 08:00 06/22/17 08:00 06/22/17 08:00 06/22/17 08:00 06/22/17 08:00 Temperature -Last 24 Hours Temperature 98.5 F Temperature 98.8 F Temperature 97.1 F Temperature 98.9 F Temperature 99.0 F Temperature 98.6 F Results - Labs CBC & Chem 7: 06/22/17 04:48 06/22/17 04:48 Labs: Abnormal lab results 06/21/17 06/21/17 06/21/17 Range/Units 09:12 11:55 16:52 WBC 28.0 H (4.5-11.0) K/mm3 RBC 2.98 L (3.65-5.03) M/mm3 Hgb 8.0 L (10.1-14.3) gm/dl Hct 26.1 L (30.3-42.9) % MCH 27 L (28-32) pg RDW 16.6 H (13.2-15.2) % Plt Count (140-440) K/mm3 Seg Neuts % (Manual) (40.0-70.0) % Lymphocytes % (Manual) (13.4-35.0) % Nucleated RBC % (0.0-0.9) % Seg Neutrophils # Man (1.8-7.7) K/mm3 Lymphocytes # (Manual) (1.2-5.4) K/mm3 Monocytes # (Manual) (0.0-0.8) K/mm3 Eosinophils # (Manual) (0.0-0.4) K/mm3 Carbon Dioxide (22-30) mmol/L BUN (7-17) mg/dL Creatinine (0.7-1.2) mg/dL Glucose (65-100) mg/dL POC Glucose 183 H 174 H (70-105) 06/21/17 06/21/17 06/22/17 Range/Units 17:10 23:45 04:48 WBC 27.0 H (4.5-11.0) K/mm3 RBC 2.88 L (3.65-5.03) M/mm3 Hgb 7.9 L (10.1-14.3) gm/dl Hct 23.9 L (30.3-42.9) % MCH (28-32) pg RDW 16.4 H (13.2-15.2) % Plt Count 493 H (140-440) K/mm3 Seg Neuts % (Manual) 91.0 H (40.0-70.0) % Lymphocytes % (Manual) 0 L (13.4-35.0) % Nucleated RBC % 1.0 H (0.0-0.9) % Seg Neutrophils # Man 24.6 H (1.8-7.7) K/mm3 Lymphocytes # (Manual) 0.0 L (1.2-5.4) K/mm3 Monocytes # (Manual) 1.1 H (0.0-0.8) K/mm3 Eosinophils # (Manual) 0.5 H (0.0-0.4) K/mm3 Carbon Dioxide (22-30) mmol/L BUN (7-17) mg/dL Creatinine (0.7-1.2) mg/dL Glucose (65-100) mg/dL POC Glucose 194 H 175 H (70-105) 06/22/17 06/22/17 Range/Units 04:48 05:40 WBC (4.5-11.0) K/mm3 RBC (3.65-5.03) M/mm3 Hgb (10.1-14.3) gm/dl Hct (30.3-42.9) % MCH (28-32) pg RDW (13.2-15.2) % Plt Count (140-440) K/mm3 Seg Neuts % (Manual) (40.0-70.0) % Lymphocytes % (Manual) (13.4-35.0) % Nucleated RBC % (0.0-0.9) % Seg Neutrophils # Man (1.8-7.7) K/mm3 Lymphocytes # (Manual) (1.2-5.4) K/mm3 Monocytes # (Manual) (0.0-0.8) K/mm3 Eosinophils # (Manual) (0.0-0.4) K/mm3 Carbon Dioxide 19 L (22-30) mmol/L BUN 95 H (7-17) mg/dL Creatinine 2.3 H (0.7-1.2) mg/dL Glucose 159 H (65-100) mg/dL POC Glucose 172 H (70-105) Assessment and Plan Assessment: 1) Acute cardiopulmonary arrest, status post CPR 05/30/17. 2) Acute respiratory failure. Intubated 05/30/17, s/p trach and G tube 06/11/17. 3) Pneumonia s/p bronch 06/17/17 with RUL atelectasis and partial mucous plugging RUL. BAL cx with K. pneumoniae and Serratia marcescens. 4) Generalized tonic-clonic seizures on admission. 5) Acute/worsening Leukocytosis. Multifactorial. 6) Intermittent fever 7) Acute encephalopathy due to anoxic brain injury. 8) Diarrhea with rectal tube in place. 9) JERRI/ATN. 10) Acute sphenoid sinusitis and mild Left mastoiditis on MRI Brain 06/03/17. 11) Uncontrolled type 2 DM Recommendations: -Check CXR. -Check LFTs. -Check tracheal aspirate. -follow-up blood cultures from 06/21. If no evidence of MRSA will stop vancomycin -Continue cefepime. -Start empiric flagyl since pt has had diarrhea. -d/w [employer]. Thank you for your consultation, will follow up with you. Gertrude Beasley MD Infectious Diseases Specialist [facility] ([facility]) M [phone]
[2017-06-22] MEDS: LASIX PO SCH (09:31)
[2017-06-22] MEDS: LOVENOX SUB-Q SCH (09:31)
[2017-06-22] MEDS: ROBINUL FEEDTUBE SCH ×3 (09:31→21:45)
[2017-06-22] MEDS: MAXIPIME 2 GM in NACL 0.9% 20 ML IV SCH (09:31)
[2017-06-22] MEDS: KEPPRA PO SCH ×2 (09:31→21:45)
[2017-06-22] MEDS: COREG PO SCH ×2 (09:32→21:45)
--- NOTE | 2017-06-22 09:58 | Progress Note ---
Assessment and Plan - Patient Problems (1) Acute renal failure with tubular necrosis Current Visit: Yes Status: Acute Plan to address problem: Non-Oliguric Acute renal failure/acute tubular necrosis. Kidney function is now improving . Follow kidney function and electrolytes on diuretics. (2) Acute respiratory failure Current Visit: Yes Status: Acute Qualifiers: Respiratory failure complication: hypoxia Qualified Code(s): J96.01 - Acute respiratory failure with hypoxia Plan to address problem: Continue Ventilator management by primary attending (3) Acute systolic heart failure Current Visit: Yes Status: Acute Plan to address problem: Continue diuretics and beta jas. ARAM inhibitor/angiotensin receptor jas contraindicated due to her history of allergy (4) Hyperosmolar non-ketotic state in patient with type 2 diabetes mellitus Current Visit: Yes Status: Acute Plan to address problem: Blood sugar management by primary attending (5) Hypertension Current Visit: Yes Status: Acute Qualifiers: Hypertension type: essential hypertension Qualified Code(s): I10 - Essential (primary) hypertension Plan to address problem: Blood pressure has improved. Follow blood pressure on current medications Subjective Date of service: 06/22/17 Principal diagnosis: coma Interval history: Patient seen lying in bed in the intensive care unit. Trach intact On ventilator. Not communicating. Not following commands. No family at bedside Objective - Exam Narrative Exam: Young -Armenian female lying in bed trach intact on ventilator HEENT: NCAT, Neck: Supple, no venous distention CVS: S1S2 RRR with no murmur, rub or gallop Chest: Coarse breath sounds with Low pitched rhonchi bilaterally Abdomen: Protuberant, soft, nontender, no organomegaly, bowel sounds are present Extremities: 1+ bilateral edema both upper and lower extremities Neuro: Eyes open, not following commands - Vital Signs Vital signs: Vital Signs - 12hr 06/21/17 06/21/17 06/21/17 22:00 22:21 22:26 Temperature Pulse Rate 78 81 74 Respiratory 17 22 Rate Blood Pressure 158/77 158/77 157/77 O2 Sat by Pulse 100 100 Oximetry O2 Sat by Pulse Oximetry [ Assessment] 06/21/17 06/21/17 06/21/17 22:27 23:00 23:11 Temperature Pulse Rate 80 82 80 Respiratory 21 Rate Blood Pressure 158/77 153/75 153/75 O2 Sat by Pulse 99 100 Oximetry O2 Sat by Pulse Oximetry [ Assessment] 06/21/17 06/22/17 06/22/17 23:14 00:00 01:00 Temperature 97.1 F L Pulse Rate 80 83 Respiratory 17 21 Rate Blood Pressure 153/74 147/73 O2 Sat by Pulse 99 96 Oximetry O2 Sat by Pulse 100 Oximetry [ Assessment] 06/22/17 06/22/17 06/22/17 02:00 03:00 03:03 Temperature Pulse Rate 83 91 H 89 Respiratory 16 18 Rate Blood Pressure 141/71 151/80 151/80 O2 Sat by Pulse 95 97 100 Oximetry O2 Sat by Pulse Oximetry [ Assessment] 06/22/17 06/22/17 06/22/17 04:00 04:10 04:11 Temperature 98.8 F Pulse Rate 84 Respiratory 16 16 Rate Blood Pressure O2 Sat by Pulse 100 99 Oximetry O2 Sat by Pulse Oximetry [ Assessment] 06/22/17 06/22/17 06/22/17 05:00 06:00 06:11 Temperature Pulse Rate 86 82 86 Respiratory 17 18 Rate Blood Pressure 153/80 148/76 148/76 O2 Sat by Pulse 98 100 Oximetry O2 Sat by Pulse Oximetry [ Assessment] 06/22/17 06/22/17 06/22/17 06:12 07:00 07:52 Temperature Pulse Rate 86 88 Respiratory 18 Rate Blood Pressure 148/76 142/78 O2 Sat by Pulse 97 98 Oximetry O2 Sat by Pulse Oximetry [ Assessment] 06/22/17 06/22/17 08:00 09:32 Temperature 98.5 F Pulse Rate 84 85 Respiratory 18 Rate Blood Pressure 129/64 127/65 O2 Sat by Pulse 100 Oximetry O2 Sat by Pulse Oximetry [ Assessment] - Lab 06/22/17 04:48 06/22/17 04:48 Most recent lab results ABG pH 7.483 pH Units (7.350-7.450) H 06/17/17 03:51 ABG pCO2 28.7 mm Hg 06/17/17 03:51 ABG pO2 144.0 mm Hg (80.0-90.0) H 06/17/17 03:51 ABG HCO3 21.1 mmol/L (20.0-26.0) 06/17/17 03:51 ABG O2 Saturation 98.9 % (95.0-99.0) 06/17/17 03:51 Calcium 8.4 mg/dL (8.4-10.2) 06/22/17 04:48 Phosphorus 4.10 mg/dL (2.5-4.5) 06/21/17 05:23 Magnesium 1.70 mg/dL (1.7-2.3) 06/07/17 07:51 Urine Creatinine 119.9 mg/dL (0.1-20.0) H 06/16/17 08:26 Urine Sodium 39 mmol/L 06/16/17 08:26 Urine Total Protein 295 mg/dL (5-11.8) H 06/16/17 08:26
--- NOTE | 2017-06-22 11:34 | Progress Note ---
Assessment and Plan 36 y/o female with acute respiratory failure secondary to metabolic encephalopathy, thought to be from seizures, s/p cardiac arrest. 1. Continue PSV trials, status post trach and peg 2. CM has sent referral to LTACH. Awaiting insurance 3. PT/OT if possible 4. Blood sugar control CCT 31 minutes. Subjective Date of service: 06/22/17 Principal diagnosis: coma Interval history: No acute events. Tolerating PSV. No family at bedside. Objective Vital Signs - 12hr 06/22/17 06/22/17 06/22/17 00:00 01:00 02:00 Temperature 97.1 F L Pulse Rate 80 83 83 Respiratory 17 21 16 Rate Blood Pressure 153/74 147/73 141/71 O2 Sat by Pulse 99 96 95 Oximetry 06/22/17 06/22/17 06/22/17 03:00 03:03 04:00 Temperature 98.8 F Pulse Rate 91 H 89 Respiratory 18 Rate Blood Pressure 151/80 151/80 O2 Sat by Pulse 97 100 Oximetry 06/22/17 06/22/17 06/22/17 04:10 04:11 05:00 Temperature Pulse Rate 84 86 Respiratory 16 16 17 Rate Blood Pressure 153/80 O2 Sat by Pulse 100 99 98 Oximetry 06/22/17 06/22/17 06/22/17 06:00 06:11 06:12 Temperature Pulse Rate 82 86 86 Respiratory 18 Rate Blood Pressure 148/76 148/76 148/76 O2 Sat by Pulse 100 Oximetry 06/22/17 06/22/17 06/22/17 07:00 07:52 08:00 Temperature 98.5 F Pulse Rate 88 84 Respiratory 18 18 Rate Blood Pressure 142/78 129/64 O2 Sat by Pulse 97 98 100 Oximetry 06/22/17 06/22/17 06/22/17 09:00 09:32 10:00 Temperature Pulse Rate 84 85 89 Respiratory 17 19 Rate Blood Pressure 127/65 127/65 136/67 O2 Sat by Pulse 99 99 Oximetry Constitutional: other (mild breathing difficulty) Eyes: non-icteric ENT: oropharynx moist, other (trach in position) Neck: supple, no JVD Effort: normal Ascultation: Right: rales, rhonchi (mild), Bilateral: clear, diminished breath sounds, other (coarse BS bilaterally) Percussion: Bilateral: not dull Cardiovascular: regular rate and rhythm Gastrointestinal: normoactive bowel sounds, soft, non-tender Integumentary: normal Extremities: no cyanosis, no edema, pink and warm Neurologic: other (unresponsive, rolls her eyes sporadically no posturing. Unchanged) Psychiatric: other CBC and BMP: 06/22/17 04:48 06/22/17 04:48 ABG, PT/INR, D-dimer: ABG POC ABG pH 7.461 (7.35-7.45) H 06/10/17 03:24 ABG pH 7.483 pH Units (7.350-7.450) H 06/17/17 03:51 POC ABG pCO2 36.6 (35-45) 06/10/17 03:24 ABG pCO2 28.7 mm Hg 06/17/17 03:51 POC ABG pO2 131 (80-105) H 06/10/17 03:24 ABG pO2 144.0 mm Hg (80.0-90.0) H 06/17/17 03:51 POC ABG HCO3 26.1 06/10/17 03:24 POC ABG Total CO2 27 06/10/17 03:24 POC ABG O2 Sat 99 06/10/17 03:24 ABG O2 Saturation 98.9 % (95.0-99.0) 06/17/17 03:51 PT/INR, D-dimer PT 12.4 Sec. (12.2-14.9) 06/09/17 04:18 INR 0.88 (0.87-1.13) 06/09/17 04:18 Abnormal lab findings: Abnormal Labs 05/30/17 05/30/17 05/30/17 07:48 07:48 08:32 WBC 11.5 H RBC Hgb Hct MCH 27 L MCHC RDW 16.3 H Plt Count Lymph % (Auto) [place] % (Auto) [place] # Seg Neutrophils % Seg Neuts % (Manual) Lymphocytes % (Manual) Monocytes % (Manual) Basophils % (Manual) Nucleated RBC % Seg Neutrophils # Seg Neutrophils # Man Lymphocytes # (Manual) Monocytes # (Manual) Eosinophils # (Manual) Basophils # (Manual) POC ABG pH ABG pH POC ABG pCO2 POC ABG pO2 ABG pO2 ABG Base Excess ABG Hemoglobin Oxyhemoglobin Sodium 133 L Potassium Chloride 89.9 L Carbon Dioxide BUN 27 H Creatinine 2.0 H Glucose 741 H* POC Glucose > 500 H Hemoglobin A1c Calcium Phosphorus Magnesium AST Alkaline Phosphatase Total Protein Albumin Urine WBC (Auto) Urine Creatinine Urine Total Protein Crossmatch 05/30/17 05/30/17 05/30/17 08:59 08:59 16:08 WBC 14.5 H RBC Hgb Hct MCH MCHC RDW 16.0 H Plt Count Lymph % (Auto) [place] % (Auto) [place] # Seg Neutrophils % Seg Neuts % (Manual) 95.0 H Lymphocytes % (Manual) 2.0 L Monocytes % (Manual) Basophils % (Manual) 2.0 H Nucleated RBC % Seg Neutrophils # Seg Neutrophils # Man 13.8 H Lymphocytes # (Manual) 0.3 L Monocytes # (Manual) Eosinophils # (Manual) Basophils # (Manual) 0.3 H POC ABG pH ABG pH POC ABG pCO2 POC ABG pO2 ABG pO2 ABG Base Excess ABG Hemoglobin Oxyhemoglobin Sodium 134 L 135 L Potassium 3.2 L Chloride 90.8 L 93.6 L Carbon Dioxide BUN 28 H 30 H Creatinine 2.0 H 2.1 H Glucose 742 H* 567 H* POC Glucose Hemoglobin A1c Calcium Phosphorus Magnesium AST Alkaline Phosphatase 246 H Total Protein 5.6 L Albumin 2.9 L Urine WBC (Auto) Urine Creatinine Urine Total Protein Crossmatch 05/30/17 05/30/17 05/30/17 16:35 17:55 18:59 WBC RBC Hgb Hct MCH MCHC RDW Plt Count Lymph % (Auto) [place] % (Auto) [place] # Seg Neutrophils % Seg Neuts % (Manual) Lymphocytes % (Manual) Monocytes % (Manual) Basophils % (Manual) Nucleated RBC % Seg Neutrophils # Seg Neutrophils # Man Lymphocytes # (Manual) Monocytes # (Manual) Eosinophils # (Manual) Basophils # (Manual) POC ABG pH 7.544 H ABG pH POC ABG pCO2 32.0 L POC ABG pO2 155 H ABG pO2 ABG Base Excess ABG Hemoglobin Oxyhemoglobin Sodium Potassium 3.1 L Chloride 93.9 L Carbon Dioxide BUN 30 H Creatinine 2.0 H Glucose 561 H* POC Glucose 497 H Hemoglobin A1c Calcium Phosphorus Magnesium AST Alkaline Phosphatase Total Protein Albumin Urine WBC (Auto) Urine Creatinine Urine Total Protein Crossmatch 05/30/17 05/30/17 05/30/17 19:31 19:31 21:38 WBC RBC Hgb Hct MCH MCHC RDW Plt Count Lymph % (Auto) [place] % (Auto) [place] # Seg Neutrophils % Seg Neuts % (Manual) Lymphocytes % (Manual) Monocytes % (Manual) Basophils % (Manual) Nucleated RBC % Seg Neutrophils # Seg Neutrophils # Man Lymphocytes # (Manual) Monocytes # (Manual) Eosinophils # (Manual) Basophils # (Manual) POC ABG pH ABG pH POC ABG pCO2 POC ABG pO2 ABG pO2 ABG Base Excess ABG Hemoglobin Oxyhemoglobin Sodium 135 L Potassium 2.9 L* Chloride 93.8 L 95.4 L Carbon Dioxide 20 L BUN 29 H 30 H Creatinine 2.2 H 2.3 H Glucose 478 H 364 H POC Glucose Hemoglobin A1c Calcium Phosphorus 2.20 L D Magnesium 1.40 L AST 42 H Alkaline Phosphatase 177 H Total Protein 5.4 L Albumin 2.4 L Urine WBC (Auto) Urine Creatinine Urine Total Protein Crossmatch 05/30/17 05/31/17 05/31/17 23:06 02:17 05:27 WBC RBC Hgb Hct MCH MCHC RDW Plt Count Lymph % (Auto) [place] % (Auto) [place] # Seg Neutrophils % Seg Neuts % (Manual) Lymphocytes % (Manual) Monocytes % (Manual) Basophils % (Manual) Nucleated RBC % Seg Neutrophils # Seg Neutrophils # Man Lymphocytes # (Manual) Monocytes # (Manual) Eosinophils # (Manual) Basophils # (Manual) POC ABG pH 7.489 H ABG pH POC ABG pCO2 POC ABG pO2 ABG pO2 ABG Base Excess ABG Hemoglobin Oxyhemoglobin Sodium Potassium 3.2 L 3.5 L Chloride Carbon Dioxide BUN 30 H 31 H Creatinine 2.5 H 2.4 H Glucose 288 H 246 H POC Glucose Hemoglobin A1c Calcium 8.3 L Phosphorus Magnesium AST Alkaline Phosphatase Total Protein Albumin Urine WBC (Auto) Urine Creatinine Urine Total Protein Crossmatch 05/31/17 05/31/17 05/31/17 05:45 05:45 05:45 WBC RBC Hgb Hct MCH MCHC RDW Plt Count Lymph % (Auto) [place] % (Auto) [place] # Seg Neutrophils % Seg Neuts % (Manual) Lymphocytes % (Manual) Monocytes % (Manual) Basophils % (Manual) Nucleated RBC % Seg Neutrophils # Seg Neutrophils # Man Lymphocytes # (Manual) Monocytes # (Manual) Eosinophils # (Manual) Basophils # (Manual) POC ABG pH ABG pH POC ABG pCO2 POC ABG pO2 ABG pO2 ABG Base Excess ABG Hemoglobin Oxyhemoglobin Sodium Potassium Chloride Carbon Dioxide BUN 32 H 30 H Creatinine 2.5 H 2.6 H Glucose 266 H 271 H POC Glucose Hemoglobin A1c 9.7 H Calcium 8.3 L 8.2 L Phosphorus Magnesium AST Alkaline Phosphatase 145 H Total Protein 4.7 L Albumin 1.8 L Urine WBC (Auto) Urine Creatinine Urine Total Protein Crossmatch 05/31/17 05/31/17 05/31/17 08:18 09:20 12:18 WBC RBC Hgb Hct MCH MCHC RDW Plt Count Lymph % (Auto) [place] % (Auto) [place] # Seg Neutrophils % Seg Neuts % (Manual) Lymphocytes % (Manual) Monocytes % (Manual) Basophils % (Manual) Nucleated RBC % Seg Neutrophils # Seg Neutrophils # Man Lymphocytes # (Manual) Monocytes # (Manual) Eosinophils # (Manual) Basophils # (Manual) POC ABG pH ABG pH POC ABG pCO2 POC ABG pO2 ABG pO2 ABG Base Excess ABG Hemoglobin Oxyhemoglobin Sodium Potassium Chloride Carbon Dioxide BUN Creatinine Glucose POC Glucose 300 H 254 H 170 H Hemoglobin A1c Calcium Phosphorus Magnesium AST Alkaline Phosphatase Total Protein Albumin Urine WBC (Auto) Urine Creatinine Urine Total Protein Crossmatch 05/31/17 05/31/17 05/31/17 14:09 14:17 14:27 WBC RBC Hgb Hct MCH MCHC RDW Plt Count Lymph % (Auto) [place] % (Auto) [place] # Seg Neutrophils % Seg Neuts % (Manual) Lymphocytes % (Manual) Monocytes % (Manual) Basophils % (Manual) Nucleated RBC % Seg Neutrophils # Seg Neutrophils # Man Lymphocytes # (Manual) Monocytes # (Manual) Eosinophils # (Manual) Basophils # (Manual) POC ABG pH ABG pH POC ABG pCO2 POC ABG pO2 ABG pO2 ABG Base Excess ABG Hemoglobin Oxyhemoglobin Sodium Potassium 3.4 L Chloride 107.1 H Carbon Dioxide BUN 30 H Creatinine 2.6 H Glucose 38 L* POC Glucose < 40 L 189 H Hemoglobin A1c Calcium 7.6 L Phosphorus Magnesium AST Alkaline Phosphatase Total Protein Albumin Urine WBC (Auto) Urine Creatinine Urine Total Protein Crossmatch 05/31/17 05/31/17 05/31/17 15:01 16:01 17:19 WBC RBC Hgb Hct MCH MCHC RDW Plt Count Lymph % (Auto) [place] % (Auto) [place] # Seg Neutrophils % Seg Neuts % (Manual) Lymphocytes % (Manual) Monocytes % (Manual) Basophils % (Manual) Nucleated RBC % Seg Neutrophils # Seg Neutrophils # Man Lymphocytes # (Manual) Monocytes # (Manual) Eosinophils # (Manual) Basophils # (Manual) POC ABG pH ABG pH POC ABG pCO2 POC ABG pO2 ABG pO2 ABG Base Excess ABG Hemoglobin Oxyhemoglobin Sodium Potassium Chloride Carbon Dioxide BUN Creatinine Glucose POC Glucose 130 H 165 H 131 H Hemoglobin A1c Calcium Phosphorus Magnesium AST Alkaline Phosphatase Total Protein Albumin Urine WBC (Auto) Urine Creatinine Urine Total Protein Crossmatch 05/31/17 05/31/17 05/31/17 18:46 19:54 20:36 WBC RBC Hgb Hct MCH MCHC RDW Plt Count Lymph % (Auto) [place] % (Auto) [place] # Seg Neutrophils % Seg Neuts % (Manual) Lymphocytes % (Manual) Monocytes % (Manual) Basophils % (Manual) Nucleated RBC % Seg Neutrophils # Seg Neutrophils # Man Lymphocytes # (Manual) Monocytes # (Manual) Eosinophils # (Manual) Basophils # (Manual) POC ABG pH ABG pH POC ABG pCO2 POC ABG pO2 ABG pO2 ABG Base Excess ABG Hemoglobin Oxyhemoglobin Sodium Potassium Chloride Carbon Dioxide BUN 29 H Creatinine 2.4 H Glucose 124 H POC Glucose 128 H 157 H Hemoglobin A1c Calcium 7.9 L Phosphorus Magnesium AST Alkaline Phosphatase Total Protein Albumin Urine WBC (Auto) Urine Creatinine Urine Total Protein Crossmatch 05/31/17 06/01/17 06/01/17 21:41 03:22 04:06 WBC RBC Hgb Hct MCH MCHC RDW Plt Count Lymph % (Auto) [place] % (Auto) [place] # Seg Neutrophils % Seg Neuts % (Manual) Lymphocytes % (Manual) Monocytes % (Manual) Basophils % (Manual) Nucleated RBC % Seg Neutrophils # Seg Neutrophils # Man Lymphocytes # (Manual) Monocytes # (Manual) Eosinophils # (Manual) Basophils # (Manual) POC ABG pH ABG pH POC ABG pCO2 POC ABG pO2 ABG pO2 ABG Base Excess ABG Hemoglobin Oxyhemoglobin Sodium Potassium Chloride Carbon Dioxide 19 L BUN 29 H Creatinine 2.6 H Glucose 205 H POC Glucose 158 H 251 H Hemoglobin A1c Calcium 7.8 L Phosphorus Magnesium AST Alkaline Phosphatase Total Protein Albumin Urine WBC (Auto) Urine Creatinine Urine Total Protein Crossmatch 06/01/17 06/01/17 06/01/17 04:30 09:15 09:59 WBC 19.7 H RBC Hgb 10.0 L Hct MCH 27 L MCHC RDW 17.1 H Plt Count Lymph % (Auto) [place] % (Auto) [place] # Seg Neutrophils % Seg Neuts % (Manual) Lymphocytes % (Manual) Monocytes % (Manual) Basophils % (Manual) Nucleated RBC % Seg Neutrophils # Seg Neutrophils # Man Lymphocytes # (Manual) Monocytes # (Manual) Eosinophils # (Manual) Basophils # (Manual) POC ABG pH 7.464 H ABG pH POC ABG pCO2 31.3 L POC ABG pO2 ABG pO2 ABG Base Excess ABG Hemoglobin Oxyhemoglobin Sodium Potassium Chloride Carbon Dioxide BUN Creatinine Glucose POC Glucose 330 H Hemoglobin A1c Calcium Phosphorus Magnesium AST Alkaline Phosphatase Total Protein Albumin Urine WBC (Auto) Urine Creatinine Urine Total Protein Crossmatch 06/01/17 06/01/17 06/01/17 11:36 12:25 13:43 WBC RBC Hgb Hct MCH MCHC RDW Plt Count Lymph % (Auto) [place] % (Auto) [place] # Seg Neutrophils % Seg Neuts % (Manual) Lymphocytes % (Manual) Monocytes % (Manual) Basophils % (Manual) Nucleated RBC % Seg Neutrophils # Seg Neutrophils # Man Lymphocytes # (Manual) Monocytes # (Manual) Eosinophils # (Manual) Basophils # (Manual) POC ABG pH ABG pH POC ABG pCO2 POC ABG pO2 ABG pO2 ABG Base Excess ABG Hemoglobin Oxyhemoglobin Sodium Potassium Chloride Carbon Dioxide BUN Creatinine Glucose POC Glucose 431 H 434 H 445 H Hemoglobin A1c Calcium Phosphorus Magnesium AST Alkaline Phosphatase Total Protein Albumin Urine WBC (Auto) Urine Creatinine Urine Total Protein Crossmatch 06/01/17 06/01/17 06/01/17 14:26 15:46 16:03 WBC RBC Hgb Hct MCH MCHC RDW Plt Count Lymph % (Auto) [place] % (Auto) [place] # Seg Neutrophils % Seg Neuts % (Manual) Lymphocytes % (Manual) Monocytes % (Manual) Basophils % (Manual) Nucleated RBC % Seg Neutrophils # Seg Neutrophils # Man Lymphocytes # (Manual) Monocytes # (Manual) Eosinophils # (Manual) Basophils # (Manual) POC ABG pH ABG pH POC ABG pCO2 POC ABG pO2 ABG pO2 ABG Base Excess ABG Hemoglobin Oxyhemoglobin Sodium Potassium Chloride Carbon Dioxide BUN Creatinine Glucose POC Glucose 310 H 292 H 244 H Hemoglobin A1c Calcium Phosphorus Magnesium AST Alkaline Phosphatase Total Protein Albumin Urine WBC (Auto) Urine Creatinine Urine Total Protein Crossmatch 06/01/17 06/01/17 06/01/17 16:59 17:49 19:05 WBC RBC Hgb Hct MCH MCHC RDW Plt Count Lymph % (Auto) [place] % (Auto) [place] # Seg Neutrophils % Seg Neuts % (Manual) Lymphocytes % (Manual) Monocytes % (Manual) Basophils % (Manual) Nucleated RBC % Seg Neutrophils # Seg Neutrophils # Man Lymphocytes # (Manual) Monocytes # (Manual) Eosinophils # (Manual) Basophils # (Manual) POC ABG pH ABG pH POC ABG pCO2 POC ABG pO2 ABG pO2 ABG Base Excess ABG Hemoglobin Oxyhemoglobin Sodium Potassium Chloride Carbon Dioxide BUN Creatinine Glucose POC Glucose 260 H 203 H 156 H Hemoglobin A1c Calcium Phosphorus Magnesium AST Alkaline Phosphatase Total Protein Albumin Urine WBC (Auto) Urine Creatinine Urine Total Protein Crossmatch 06/02/17 06/02/17 06/02/17 00:09 01:06 02:31 WBC RBC Hgb Hct MCH MCHC RDW Plt Count Lymph % (Auto) [place] % (Auto) [place] # Seg Neutrophils % Seg Neuts % (Manual) Lymphocytes % (Manual) Monocytes % (Manual) Basophils % (Manual) Nucleated RBC % Seg Neutrophils # Seg Neutrophils # Man Lymphocytes # (Manual) Monocytes # (Manual) Eosinophils # (Manual) Basophils # (Manual) POC ABG pH ABG pH POC ABG pCO2 POC ABG pO2 ABG pO2 ABG Base Excess ABG Hemoglobin Oxyhemoglobin Sodium Potassium Chloride Carbon Dioxide BUN Creatinine Glucose POC Glucose 137 H 146 H 182 H Hemoglobin A1c Calcium Phosphorus Magnesium AST Alkaline Phosphatase Total Protein Albumin Urine WBC (Auto) Urine Creatinine Urine Total Protein Crossmatch 06/02/17 06/02/17 06/02/17 04:03 04:24 04:24 WBC 21.0 H RBC 3.62 L Hgb Hct 29.6 L MCH MCHC RDW 16.5 H Plt Count Lymph % (Auto) [place] % (Auto) [place] # Seg Neutrophils % Seg Neuts % (Manual) 98.0 H Lymphocytes % (Manual) 1.0 L Monocytes % (Manual) Basophils % (Manual) Nucleated RBC % Seg Neutrophils # Seg Neutrophils # Man 20.6 H Lymphocytes # (Manual) 0.2 L Monocytes # (Manual) Eosinophils # (Manual) Basophils # (Manual) POC ABG pH ABG pH POC ABG pCO2 POC ABG pO2 ABG pO2 ABG Base Excess ABG Hemoglobin Oxyhemoglobin Sodium Potassium Chloride Carbon Dioxide 20 L BUN 36 H Creatinine 2.8 H Glucose 137 H POC Glucose 150 H Hemoglobin A1c Calcium 7.5 L Phosphorus 4.60 H Magnesium 1.50 L AST Alkaline Phosphatase 132 H Total Protein 4.1 L Albumin 1.7 L Urine WBC (Auto) Urine Creatinine Urine Total Protein Crossmatch 06/02/17 06/02/17 06/02/17 05:01 05:14 06:20 WBC RBC Hgb Hct MCH MCHC RDW Plt Count Lymph % (Auto) [place] % (Auto) [place] # Seg Neutrophils % Seg Neuts % (Manual) Lymphocytes % (Manual) Monocytes % (Manual) Basophils % (Manual) Nucleated RBC % Seg Neutrophils # Seg Neutrophils # Man Lymphocytes # (Manual) Monocytes # (Manual) Eosinophils # (Manual) Basophils # (Manual) POC ABG pH 7.517 H ABG pH POC ABG pCO2 28.4 L POC ABG pO2 67 L ABG pO2 ABG Base Excess ABG Hemoglobin Oxyhemoglobin Sodium Potassium Chloride Carbon Dioxide BUN Creatinine Glucose POC Glucose 137 H 163 H Hemoglobin A1c Calcium Phosphorus Magnesium AST Alkaline Phosphatase Total Protein Albumin Urine WBC (Auto) Urine Creatinine Urine Total Protein Crossmatch 06/02/17 06/02/17 06/02/17 07:43 09:40 10:18 WBC RBC Hgb Hct MCH MCHC RDW Plt Count Lymph % (Auto) [place] % (Auto) [place] # Seg Neutrophils % Seg Neuts % (Manual) Lymphocytes % (Manual) Monocytes % (Manual) Basophils % (Manual) Nucleated RBC % Seg Neutrophils # Seg Neutrophils # Man Lymphocytes # (Manual) Monocytes # (Manual) Eosinophils # (Manual) Basophils # (Manual) POC ABG pH ABG pH POC ABG pCO2 POC ABG pO2 ABG pO2 ABG Base Excess ABG Hemoglobin Oxyhemoglobin Sodium Potassium Chloride Carbon Dioxide BUN Creatinine Glucose POC Glucose 135 H 196 H Hemoglobin A1c Calcium Phosphorus Magnesium AST Alkaline Phosphatase Total Protein Albumin Urine WBC (Auto) Urine Creatinine Urine Total Protein < 4 L Crossmatch 06/02/17 06/02/17 06/02/17 10:33 11:55 17:39 WBC RBC Hgb Hct MCH MCHC RDW Plt Count Lymph % (Auto) [place] % (Auto) [place] # Seg Neutrophils % Seg Neuts % (Manual) Lymphocytes % (Manual) Monocytes % (Manual) Basophils % (Manual) Nucleated RBC % Seg Neutrophils # Seg Neutrophils # Man Lymphocytes # (Manual) Monocytes # (Manual) Eosinophils # (Manual) Basophils # (Manual) POC ABG pH ABG pH POC ABG pCO2 POC ABG pO2 ABG pO2 ABG Base Excess ABG Hemoglobin Oxyhemoglobin Sodium Potassium Chloride Carbon Dioxide BUN Creatinine Glucose POC Glucose 188 H 110 H 150 H Hemoglobin A1c Calcium Phosphorus Magnesium AST Alkaline Phosphatase Total Protein Albumin Urine WBC (Auto) Urine Creatinine Urine Total Protein Crossmatch 06/02/17 06/02/17 06/03/17 18:12 21:32 02:02 WBC RBC Hgb Hct MCH MCHC RDW Plt Count Lymph % (Auto) [place] % (Auto) [place] # Seg Neutrophils % Seg Neuts % (Manual) Lymphocytes % (Manual) Monocytes % (Manual) Basophils % (Manual) Nucleated RBC % Seg Neutrophils # Seg Neutrophils # Man Lymphocytes # (Manual) Monocytes # (Manual) Eosinophils # (Manual) Basophils # (Manual) POC ABG pH ABG pH POC ABG pCO2 POC ABG pO2 ABG pO2 ABG Base Excess ABG Hemoglobin Oxyhemoglobin Sodium Potassium Chloride Carbon Dioxide BUN Creatinine Glucose POC Glucose 131 H 143 H 191 H Hemoglobin A1c Calcium Phosphorus Magnesium AST Alkaline Phosphatase Total Protein Albumin Urine WBC (Auto) Urine Creatinine Urine Total Protein Crossmatch 06/03/17 06/03/17 06/03/17 04:14 04:14 05:06 WBC 21.1 H RBC Hgb Hct MCH 27 L MCHC RDW 15.9 H Plt Count 447 H Lymph % (Auto) [place] % (Auto) [place] # Seg Neutrophils % Seg Neuts % (Manual) 94.0 H Lymphocytes % (Manual) 3.0 L Monocytes % (Manual) Basophils % (Manual) Nucleated RBC % Seg Neutrophils # Seg Neutrophils # Man 19.8 H Lymphocytes # (Manual) 0.6 L Monocytes # (Manual) Eosinophils # (Manual) Basophils # (Manual) POC ABG pH ABG pH POC ABG pCO2 28.6 L POC ABG pO2 112 H ABG pO2 ABG Base Excess ABG Hemoglobin Oxyhemoglobin Sodium Potassium Chloride Carbon Dioxide 14 L BUN 45 H Creatinine 2.8 H Glucose 211 H POC Glucose Hemoglobin A1c Calcium 8.0 L Phosphorus Magnesium AST Alkaline Phosphatase Total Protein Albumin Urine WBC (Auto) Urine Creatinine Urine Total Protein Crossmatch 06/03/17 06/03/17 06/03/17 06:00 10:20 13:43 WBC RBC Hgb Hct MCH MCHC RDW Plt Count Lymph % (Auto) [place] % (Auto) [place] # Seg Neutrophils % Seg Neuts % (Manual) Lymphocytes % (Manual) Monocytes % (Manual) Basophils % (Manual) Nucleated RBC % Seg Neutrophils # Seg Neutrophils # Man Lymphocytes # (Manual) Monocytes # (Manual) Eosinophils # (Manual) Basophils # (Manual) POC ABG pH ABG pH POC ABG pCO2 POC ABG pO2 ABG pO2 ABG Base Excess ABG Hemoglobin Oxyhemoglobin Sodium Potassium Chloride Carbon Dioxide BUN Creatinine Glucose POC Glucose 224 H 226 H 296 H Hemoglobin A1c Calcium Phosphorus Magnesium AST Alkaline Phosphatase Total Protein Albumin Urine WBC (Auto) Urine Creatinine Urine Total Protein Crossmatch 06/03/17 06/03/17 06/03/17 17:38 19:23 20:45 WBC RBC Hgb Hct MCH MCHC RDW Plt Count Lymph % (Auto) [place] % (Auto) [place] # Seg Neutrophils % Seg Neuts % (Manual) Lymphocytes % (Manual) Monocytes % (Manual) Basophils % (Manual) Nucleated RBC % Seg Neutrophils # Seg Neutrophils # Man Lymphocytes # (Manual) Monocytes # (Manual) Eosinophils # (Manual) Basophils # (Manual) POC ABG pH ABG pH POC ABG pCO2 POC ABG pO2 ABG pO2 ABG Base Excess ABG Hemoglobin Oxyhemoglobin Sodium Potassium Chloride Carbon Dioxide BUN Creatinine Glucose POC Glucose 295 H 275 H 338 H Hemoglobin A1c Calcium Phosphorus Magnesium AST Alkaline Phosphatase Total Protein Albumin Urine WBC (Auto) Urine Creatinine Urine Total Protein Crossmatch 06/03/17 06/03/17 06/04/17 21:50 23:08 00:16 WBC RBC Hgb Hct MCH MCHC RDW Plt Count Lymph % (Auto) [place] % (Auto) [place] # Seg Neutrophils % Seg Neuts % (Manual) Lymphocytes % (Manual) Monocytes % (Manual) Basophils % (Manual) Nucleated RBC % Seg Neutrophils # Seg Neutrophils # Man Lymphocytes # (Manual) Monocytes # (Manual) Eosinophils # (Manual) Basophils # (Manual) POC ABG pH ABG pH POC ABG pCO2 POC ABG pO2 ABG pO2 ABG Base Excess ABG Hemoglobin Oxyhemoglobin Sodium Potassium Chloride Carbon Dioxide BUN Creatinine Glucose POC Glucose 223 H 214 H 226 H Hemoglobin A1c Calcium Phosphorus Magnesium AST Alkaline Phosphatase Total Protein Albumin Urine WBC (Auto) Urine Creatinine Urine Total Protein Crossmatch 06/04/17 06/04/17 06/04/17 01:05 02:07 03:27 WBC RBC Hgb Hct MCH MCHC RDW Plt Count Lymph % (Auto) [place] % (Auto) [place] # Seg Neutrophils % Seg Neuts % (Manual) Lymphocytes % (Manual) Monocytes % (Manual) Basophils % (Manual) Nucleated RBC % Seg Neutrophils # Seg Neutrophils # Man Lymphocytes # (Manual) Monocytes # (Manual) Eosinophils # (Manual) Basophils # (Manual) POC ABG pH ABG pH POC ABG pCO2 POC ABG pO2 ABG pO2 ABG Base Excess ABG Hemoglobin Oxyhemoglobin Sodium Potassium Chloride Carbon Dioxide BUN Creatinine Glucose POC Glucose 217 H 229 H 185 H Hemoglobin A1c Calcium Phosphorus Magnesium AST Alkaline Phosphatase Total Protein Albumin Urine WBC (Auto) Urine Creatinine Urine Total Protein Crossmatch 06/04/17 06/04/17 06/04/17 03:52 04:05 04:05 WBC 19.6 H RBC Hgb Hct MCH 26 L MCHC RDW 15.6 H Plt Count 564 H Lymph % (Auto) 7.3 L [place] % (Auto) 10.8 H [place] # 2.1 H Seg Neutrophils % 81.4 H Seg Neuts % (Manual) Lymphocytes % (Manual) Monocytes % (Manual) Basophils % (Manual) Nucleated RBC % Seg Neutrophils # 15.9 H Seg Neutrophils # Man Lymphocytes # (Manual) Monocytes # (Manual) Eosinophils # (Manual) Basophils # (Manual) POC ABG pH ABG pH POC ABG pCO2 POC ABG pO2 ABG pO2 ABG Base Excess ABG Hemoglobin Oxyhemoglobin Sodium Potassium Chloride Carbon Dioxide 17 L BUN 52 H Creatinine 2.5 H Glucose 163 H POC Glucose 181 H Hemoglobin A1c Calcium 7.9 L Phosphorus Magnesium AST Alkaline Phosphatase Total Protein Albumin Urine WBC (Auto) Urine Creatinine Urine Total Protein Crossmatch 06/04/17 06/04/17 06/04/17 04:56 05:39 06:12 WBC RBC Hgb Hct MCH MCHC RDW Plt Count Lymph % (Auto) [place] % (Auto) [place] # Seg Neutrophils % Seg Neuts % (Manual) Lymphocytes % (Manual) Monocytes % (Manual) Basophils % (Manual) Nucleated RBC % Seg Neutrophils # Seg Neutrophils # Man Lymphocytes # (Manual) Monocytes # (Manual) Eosinophils # (Manual) Basophils # (Manual) POC ABG pH 7.486 H ABG pH POC ABG pCO2 26.8 L POC ABG pO2 ABG pO2 ABG Base Excess ABG Hemoglobin Oxyhemoglobin Sodium Potassium Chloride Carbon Dioxide BUN Creatinine Glucose POC Glucose 208 H 225 H Hemoglobin A1c Calcium Phosphorus Magnesium AST Alkaline Phosphatase Total Protein Albumin Urine WBC (Auto) Urine Creatinine Urine Total Protein Crossmatch 06/04/17 06/04/17 06/04/17 07:07 08:06 09:15 WBC RBC Hgb Hct MCH MCHC RDW Plt Count Lymph % (Auto) [place] % (Auto) [place] # Seg Neutrophils % Seg Neuts % (Manual) Lymphocytes % (Manual) Monocytes % (Manual) Basophils % (Manual) Nucleated RBC % Seg Neutrophils # Seg Neutrophils # Man Lymphocytes # (Manual) Monocytes # (Manual) Eosinophils # (Manual) Basophils # (Manual) POC ABG pH ABG pH POC ABG pCO2 POC ABG pO2 ABG pO2 ABG Base Excess ABG Hemoglobin Oxyhemoglobin Sodium Potassium Chloride Carbon Dioxide BUN Creatinine Glucose POC Glucose 201 H 171 H 178 H Hemoglobin A1c Calcium Phosphorus Magnesium AST Alkaline Phosphatase Total Protein Albumin Urine WBC (Auto) Urine Creatinine Urine Total Protein Crossmatch 06/04/17 06/04/17 06/04/17 10:16 12:22 17:21 WBC RBC Hgb Hct MCH MCHC RDW Plt Count Lymph % (Auto) [place] % (Auto) [place] # Seg Neutrophils % Seg Neuts % (Manual) Lymphocytes % (Manual) Monocytes % (Manual) Basophils % (Manual) Nucleated RBC % Seg Neutrophils # Seg Neutrophils # Man Lymphocytes # (Manual) Monocytes # (Manual) Eosinophils # (Manual) Basophils # (Manual) POC ABG pH ABG pH POC ABG pCO2 POC ABG pO2 ABG pO2 ABG Base Excess ABG Hemoglobin Oxyhemoglobin Sodium Potassium Chloride Carbon Dioxide BUN Creatinine Glucose POC Glucose 191 H 188 H Hemoglobin A1c Calcium Phosphorus Magnesium AST Alkaline Phosphatase Total Protein Albumin Urine WBC (Auto) Urine Creatinine 78.7 H Urine Total Protein 197 H Crossmatch 06/04/17 06/04/17 06/05/17 17:56 22:10 00:00 WBC RBC Hgb Hct MCH MCHC RDW Plt Count Lymph % (Auto) [place] % (Auto) [place] # Seg Neutrophils % Seg Neuts % (Manual) Lymphocytes % (Manual) Monocytes % (Manual) Basophils % (Manual) Nucleated RBC % Seg Neutrophils # Seg Neutrophils # Man Lymphocytes # (Manual) Monocytes # (Manual) Eosinophils # (Manual) Basophils # (Manual) POC ABG pH ABG pH POC ABG pCO2 POC ABG pO2 ABG pO2 ABG Base Excess ABG Hemoglobin Oxyhemoglobin Sodium Potassium Chloride Carbon Dioxide 17 L BUN 55 H Creatinine 2.3 H Glucose 300 H POC Glucose 266 H 337 H Hemoglobin A1c Calcium 7.4 L Phosphorus Magnesium AST Alkaline Phosphatase Total Protein Albumin Urine WBC (Auto) Urine Creatinine Urine Total Protein Crossmatch 06/05/17 06/05/17 06/05/17 03:26 04:11 05:13 WBC RBC Hgb Hct MCH MCHC RDW Plt Count Lymph % (Auto) [place] % (Auto) [place] # Seg Neutrophils % Seg Neuts % (Manual) Lymphocytes % (Manual) Monocytes % (Manual) Basophils % (Manual) Nucleated RBC % Seg Neutrophils # Seg Neutrophils # Man Lymphocytes # (Manual) Monocytes # (Manual) Eosinophils # (Manual) Basophils # (Manual) POC ABG pH 7.586 H ABG pH POC ABG pCO2 22.6 L POC ABG pO2 179 H ABG pO2 ABG Base Excess ABG Hemoglobin Oxyhemoglobin Sodium Potassium Chloride Carbon Dioxide 19 L BUN 55 H Creatinine 2.2 H Glucose 226 H POC Glucose 220 H Hemoglobin A1c Calcium 7.7 L Phosphorus Magnesium AST Alkaline Phosphatase Total Protein Albumin Urine WBC (Auto) Urine Creatinine Urine Total Protein Crossmatch 06/05/17 06/05/17 06/05/17 12:42 18:24 21:23 WBC RBC Hgb Hct MCH MCHC RDW Plt Count Lymph % (Auto) [place] % (Auto) [place] # Seg Neutrophils % Seg Neuts % (Manual) Lymphocytes % (Manual) Monocytes % (Manual) Basophils % (Manual) Nucleated RBC % Seg Neutrophils # Seg Neutrophils # Man Lymphocytes # (Manual) Monocytes # (Manual) Eosinophils # (Manual) Basophils # (Manual) POC ABG pH ABG pH POC ABG pCO2 POC ABG pO2 ABG pO2 ABG Base Excess ABG Hemoglobin Oxyhemoglobin Sodium Potassium Chloride Carbon Dioxide BUN Creatinine Glucose POC Glucose 168 H 121 H 166 H Hemoglobin A1c Calcium Phosphorus Magnesium AST Alkaline Phosphatase Total Protein Albumin Urine WBC (Auto) Urine Creatinine Urine Total Protein Crossmatch 06/06/17 06/06/17 06/06/17 00:14 04:11 06:19 WBC RBC Hgb Hct MCH MCHC RDW Plt Count Lymph % (Auto) [place] % (Auto) [place] # Seg Neutrophils % Seg Neuts % (Manual) Lymphocytes % (Manual) Monocytes % (Manual) Basophils % (Manual) Nucleated RBC % Seg Neutrophils # Seg Neutrophils # Man Lymphocytes # (Manual) Monocytes # (Manual) Eosinophils # (Manual) Basophils # (Manual) POC ABG pH ABG pH POC ABG pCO2 33.0 L POC ABG pO2 ABG pO2 ABG Base Excess ABG Hemoglobin Oxyhemoglobin Sodium Potassium Chloride Carbon Dioxide BUN Creatinine Glucose POC Glucose 179 H 180 H Hemoglobin A1c Calcium Phosphorus Magnesium AST Alkaline Phosphatase Total Protein Albumin Urine WBC (Auto) Urine Creatinine Urine Total Protein Crossmatch 06/06/17 06/06/17 06/06/17 12:19 18:38 20:01 WBC RBC Hgb Hct MCH MCHC RDW Plt Count Lymph % (Auto) [place] % (Auto) [place] # Seg Neutrophils % Seg Neuts % (Manual) Lymphocytes % (Manual) Monocytes % (Manual) Basophils % (Manual) Nucleated RBC % Seg Neutrophils # Seg Neutrophils # Man Lymphocytes # (Manual) Monocytes # (Manual) Eosinophils # (Manual) Basophils # (Manual) POC ABG pH ABG pH POC ABG pCO2 POC ABG pO2 ABG pO2 ABG Base Excess ABG Hemoglobin Oxyhemoglobin Sodium Potassium Chloride Carbon Dioxide BUN Creatinine Glucose POC Glucose 123 H 56 L 65 L Hemoglobin A1c Calcium Phosphorus Magnesium AST Alkaline Phosphatase Total Protein Albumin Urine WBC (Auto) Urine Creatinine Urine Total Protein Crossmatch 06/06/17 06/07/17 06/07/17 23:51 04:25 05:29 WBC RBC Hgb Hct MCH MCHC RDW Plt Count Lymph % (Auto) [place] % (Auto) [place] # Seg Neutrophils % Seg Neuts % (Manual) Lymphocytes % (Manual) Monocytes % (Manual) Basophils % (Manual) Nucleated RBC % Seg Neutrophils # Seg Neutrophils # Man Lymphocytes # (Manual) Monocytes # (Manual) Eosinophils # (Manual) Basophils # (Manual) POC ABG pH 7.470 H ABG pH POC ABG pCO2 33.6 L POC ABG pO2 ABG pO2 ABG Base Excess ABG Hemoglobin Oxyhemoglobin Sodium Potassium Chloride Carbon Dioxide BUN Creatinine Glucose POC Glucose 118 H 183 H Hemoglobin A1c Calcium Phosphorus Magnesium AST Alkaline Phosphatase Total Protein Albumin Urine WBC (Auto) Urine Creatinine Urine Total Protein Crossmatch 06/07/17 06/07/17 06/07/17 07:51 12:00 18:08 WBC RBC Hgb Hct MCH MCHC RDW Plt Count Lymph % (Auto) [place] % (Auto) [place] # Seg Neutrophils % Seg Neuts % (Manual) Lymphocytes % (Manual) Monocytes % (Manual) Basophils % (Manual) Nucleated RBC % Seg Neutrophils # Seg Neutrophils # Man Lymphocytes # (Manual) Monocytes # (Manual) Eosinophils # (Manual) Basophils # (Manual) POC ABG pH ABG pH POC ABG pCO2 POC ABG pO2 ABG pO2 ABG Base Excess ABG Hemoglobin Oxyhemoglobin Sodium 135 L Potassium Chloride Carbon Dioxide 21 L BUN 50 H Creatinine 1.8 H Glucose 232 H POC Glucose 361 H 249 H Hemoglobin A1c Calcium 8.0 L Phosphorus Magnesium AST Alkaline Phosphatase Total Protein Albumin Urine WBC (Auto) Urine Creatinine Urine Total Protein Crossmatch 06/07/17 06/08/17 06/08/17 23:53 05:25 11:50 WBC RBC Hgb Hct MCH MCHC RDW Plt Count Lymph % (Auto) [place] % (Auto) [place] # Seg Neutrophils % Seg Neuts % (Manual) Lymphocytes % (Manual) Monocytes % (Manual) Basophils % (Manual) Nucleated RBC % Seg Neutrophils # Seg Neutrophils # Man Lymphocytes # (Manual) Monocytes # (Manual) Eosinophils # (Manual) Basophils # (Manual) POC ABG pH ABG pH POC ABG pCO2 POC ABG pO2 ABG pO2 ABG Base Excess ABG Hemoglobin Oxyhemoglobin Sodium Potassium Chloride Carbon Dioxide BUN Creatinine Glucose POC Glucose 190 H 136 H 166 H Hemoglobin A1c Calcium Phosphorus Magnesium AST Alkaline Phosphatase Total Protein Albumin Urine WBC (Auto) Urine Creatinine Urine Total Protein Crossmatch 06/08/17 06/08/17 06/08/17 14:20 14:20 19:05 WBC 15.7 H RBC 3.49 L Hgb 9.4 L Hct 27.9 L MCH 27 L MCHC RDW 15.3 H Plt Count 590 H Lymph % (Auto) [place] % (Auto) [place] # Seg Neutrophils % Seg Neuts % (Manual) Lymphocytes % (Manual) Monocytes % (Manual) Basophils % (Manual) Nucleated RBC % Seg Neutrophils # Seg Neutrophils # Man Lymphocytes # (Manual) Monocytes # (Manual) Eosinophils # (Manual) Basophils # (Manual) POC ABG pH ABG pH POC ABG pCO2 POC ABG pO2 ABG pO2 ABG Base Excess ABG Hemoglobin Oxyhemoglobin Sodium Potassium Chloride Carbon Dioxide BUN 55 H Creatinine 1.7 H Glucose 117 H POC Glucose 135 H Hemoglobin A1c Calcium Phosphorus Magnesium AST Alkaline Phosphatase Total Protein Albumin Urine WBC (Auto) Urine Creatinine Urine Total Protein Crossmatch 06/08/17 06/08/17 06/09/17 21:52 23:55 04:18 WBC RBC Hgb Hct MCH MCHC RDW Plt Count Lymph % (Auto) [place] % (Auto) [place] # Seg Neutrophils % Seg Neuts % (Manual) Lymphocytes % (Manual) Monocytes % (Manual) Basophils % (Manual) Nucleated RBC % Seg Neutrophils # Seg Neutrophils # Man Lymphocytes # (Manual) Monocytes # (Manual) Eosinophils # (Manual) Basophils # (Manual) POC ABG pH ABG pH POC ABG pCO2 POC ABG pO2 ABG pO2 ABG Base Excess ABG Hemoglobin Oxyhemoglobin Sodium Potassium Chloride Carbon Dioxide BUN 51 H Creatinine 1.6 H Glucose POC Glucose 186 H 209 H Hemoglobin A1c Calcium Phosphorus Magnesium AST Alkaline Phosphatase Total Protein Albumin Urine WBC (Auto) Urine Creatinine Urine Total Protein Crossmatch 06/09/17 06/09/17 06/09/17 09:56 12:42 18:09 WBC RBC Hgb Hct MCH MCHC RDW Plt Count Lymph % (Auto) [place] % (Auto) [place] # Seg Neutrophils % Seg Neuts % (Manual) Lymphocytes % (Manual) Monocytes % (Manual) Basophils % (Manual) Nucleated RBC % Seg Neutrophils # Seg Neutrophils # Man Lymphocytes # (Manual) Monocytes # (Manual) Eosinophils # (Manual) Basophils # (Manual) POC ABG pH ABG pH POC ABG pCO2 POC ABG pO2 ABG pO2 ABG Base Excess ABG Hemoglobin Oxyhemoglobin Sodium Potassium Chloride Carbon Dioxide BUN Creatinine Glucose POC Glucose 63 L 142 H 166 H Hemoglobin A1c Calcium Phosphorus Magnesium AST Alkaline Phosphatase Total Protein Albumin Urine WBC (Auto) Urine Creatinine Urine Total Protein Crossmatch 06/09/17 06/10/17 06/10/17 23:39 03:24 04:28 WBC 15.1 H RBC 2.99 L Hgb 8.1 L Hct 23.6 L MCH 27 L MCHC 35 H RDW 15.4 H Plt Count 500 H Lymph % (Auto) [place] % (Auto) [place] # Seg Neutrophils % Seg Neuts % (Manual) Lymphocytes % (Manual) Monocytes % (Manual) Basophils % (Manual) Nucleated RBC % Seg Neutrophils # Seg Neutrophils # Man Lymphocytes # (Manual) Monocytes # (Manual) Eosinophils # (Manual) Basophils # (Manual) POC ABG pH 7.461 H ABG pH POC ABG pCO2 POC ABG pO2 131 H ABG pO2 ABG Base Excess ABG Hemoglobin Oxyhemoglobin Sodium Potassium Chloride Carbon Dioxide BUN Creatinine Glucose POC Glucose 284 H Hemoglobin A1c Calcium Phosphorus Magnesium AST Alkaline Phosphatase Total Protein Albumin Urine WBC (Auto) Urine Creatinine Urine Total Protein Crossmatch 06/10/17 06/10/17 06/10/17 04:28 05:10 12:41 WBC RBC Hgb Hct MCH MCHC RDW Plt Count Lymph % (Auto) [place] % (Auto) [place] # Seg Neutrophils % Seg Neuts % (Manual) Lymphocytes % (Manual) Monocytes % (Manual) Basophils % (Manual) Nucleated RBC % Seg Neutrophils # Seg Neutrophils # Man Lymphocytes # (Manual) Monocytes # (Manual) Eosinophils # (Manual) Basophils # (Manual) POC ABG pH ABG pH POC ABG pCO2 POC ABG pO2 ABG pO2 ABG Base Excess ABG Hemoglobin Oxyhemoglobin Sodium Potassium Chloride Carbon Dioxide BUN 53 H Creatinine 1.8 H Glucose 185 H POC Glucose 190 H 50 L Hemoglobin A1c Calcium Phosphorus Magnesium AST Alkaline Phosphatase Total Protein Albumin Urine WBC (Auto) Urine Creatinine Urine Total Protein Crossmatch 06/10/17 06/10/17 06/11/17 14:35 18:31 00:09 WBC RBC Hgb Hct MCH MCHC RDW Plt Count Lymph % (Auto) [place] % (Auto) [place] # Seg Neutrophils % Seg Neuts % (Manual) Lymphocytes % (Manual) Monocytes % (Manual) Basophils % (Manual) Nucleated RBC % Seg Neutrophils # Seg Neutrophils # Man Lymphocytes # (Manual) Monocytes # (Manual) Eosinophils # (Manual) Basophils # (Manual) POC ABG pH ABG pH POC ABG pCO2 POC ABG pO2 ABG pO2 ABG Base Excess ABG Hemoglobin Oxyhemoglobin Sodium Potassium Chloride Carbon Dioxide BUN Creatinine Glucose POC Glucose 58 L 55 L 126 H Hemoglobin A1c Calcium Phosphorus Magnesium AST Alkaline Phosphatase Total Protein Albumin Urine WBC (Auto) Urine Creatinine Urine Total Protein Crossmatch 06/11/17 06/11/17 06/11/17 05:32 06:01 06:03 WBC 15.6 H RBC 3.03 L Hgb 8.3 L Hct 24.0 L MCH MCHC 35 H RDW Plt Count 492 H Lymph % (Auto) [place] % (Auto) [place] # Seg Neutrophils % Seg Neuts % (Manual) Lymphocytes % (Manual) Monocytes % (Manual) Basophils % (Manual) Nucleated RBC % Seg Neutrophils # Seg Neutrophils # Man Lymphocytes # (Manual) Monocytes # (Manual) Eosinophils # (Manual) Basophils # (Manual) POC ABG pH ABG pH POC ABG pCO2 POC ABG pO2 ABG pO2 ABG Base Excess ABG Hemoglobin Oxyhemoglobin Sodium Potassium Chloride Carbon Dioxide BUN 55 H Creatinine 1.8 H Glucose 228 H POC Glucose 219 H Hemoglobin A1c Calcium Phosphorus Magnesium AST Alkaline Phosphatase Total Protein Albumin Urine WBC (Auto) Urine Creatinine Urine Total Protein Crossmatch 06/11/17 06/11/17 06/12/17 11:53 18:31 04:24 WBC 17.4 H RBC 2.90 L Hgb 8.0 L Hct 23.0 L MCH MCHC 35 H RDW Plt Count 460 H Lymph % (Auto) [place] % (Auto) [place] # Seg Neutrophils % Seg Neuts % (Manual) Lymphocytes % (Manual) Monocytes % (Manual) Basophils % (Manual) Nucleated RBC % Seg Neutrophils # Seg Neutrophils # Man Lymphocytes # (Manual) Monocytes # (Manual) Eosinophils # (Manual) Basophils # (Manual) POC ABG pH ABG pH POC ABG pCO2 POC ABG pO2 ABG pO2 ABG Base Excess ABG Hemoglobin Oxyhemoglobin Sodium Potassium Chloride Carbon Dioxide BUN Creatinine Glucose POC Glucose 220 H 254 H Hemoglobin A1c Calcium Phosphorus Magnesium AST Alkaline Phosphatase Total Protein Albumin Urine WBC (Auto) Urine Creatinine Urine Total Protein Crossmatch 06/12/17 06/12/17 06/12/17 05:37 05:40 06:00 WBC RBC Hgb Hct MCH MCHC RDW Plt Count Lymph % (Auto) [place] % (Auto) [place] # Seg Neutrophils % Seg Neuts % (Manual) Lymphocytes % (Manual) Monocytes % (Manual) Basophils % (Manual) Nucleated RBC % Seg Neutrophils # Seg Neutrophils # Man Lymphocytes # (Manual) Monocytes # (Manual) Eosinophils # (Manual) Basophils # (Manual) POC ABG pH ABG pH POC ABG pCO2 POC ABG pO2 ABG pO2 ABG Base Excess ABG Hemoglobin Oxyhemoglobin Sodium Potassium Chloride Carbon Dioxide BUN Creatinine Glucose 41 L POC Glucose < 40 L < 40 L Hemoglobin A1c Calcium Phosphorus Magnesium AST Alkaline Phosphatase Total Protein Albumin Urine WBC (Auto) Urine Creatinine Urine Total Protein Crossmatch 06/12/17 06/12/17 06/12/17 07:09 07:51 10:06 WBC RBC Hgb Hct MCH MCHC RDW Plt Count Lymph % (Auto) [place] % (Auto) [place] # Seg Neutrophils % Seg Neuts % (Manual) Lymphocytes % (Manual) Monocytes % (Manual) Basophils % (Manual) Nucleated RBC % Seg Neutrophils # Seg Neutrophils # Man Lymphocytes # (Manual) Monocytes # (Manual) Eosinophils # (Manual) Basophils # (Manual) POC ABG pH ABG pH POC ABG pCO2 POC ABG pO2 ABG pO2 ABG Base Excess ABG Hemoglobin Oxyhemoglobin Sodium Potassium Chloride Carbon Dioxide BUN Creatinine Glucose POC Glucose 64 L 42 L 61 L Hemoglobin A1c Calcium Phosphorus Magnesium AST Alkaline Phosphatase Total Protein Albumin Urine WBC (Auto) Urine Creatinine Urine Total Protein Crossmatch 06/12/17 06/12/17 06/12/17 11:16 14:04 18:03 WBC RBC Hgb Hct MCH MCHC RDW Plt Count Lymph % (Auto) [place] % (Auto) [place] # Seg Neutrophils % Seg Neuts % (Manual) Lymphocytes % (Manual) Monocytes % (Manual) Basophils % (Manual) Nucleated RBC % Seg Neutrophils # Seg Neutrophils # Man Lymphocytes # (Manual) Monocytes # (Manual) Eosinophils # (Manual) Basophils # (Manual) POC ABG pH ABG pH POC ABG pCO2 POC ABG pO2 ABG pO2 ABG Base Excess ABG Hemoglobin Oxyhemoglobin Sodium Potassium Chloride Carbon Dioxide BUN Creatinine Glucose POC Glucose 67 L 112 H 116 H Hemoglobin A1c Calcium Phosphorus Magnesium AST Alkaline Phosphatase Total Protein Albumin Urine WBC (Auto) Urine Creatinine Urine Total Protein Crossmatch 06/12/17 06/12/17 06/12/17 19:30 20:34 21:01 WBC RBC Hgb Hct MCH MCHC RDW Plt Count Lymph % (Auto) [place] % (Auto) [place] # Seg Neutrophils % Seg Neuts % (Manual) Lymphocytes % (Manual) Monocytes % (Manual) Basophils % (Manual) Nucleated RBC % Seg Neutrophils # Seg Neutrophils # Man Lymphocytes # (Manual) Monocytes # (Manual) Eosinophils # (Manual) Basophils # (Manual) POC ABG pH ABG pH POC ABG pCO2 POC ABG pO2 ABG pO2 ABG Base Excess ABG Hemoglobin Oxyhemoglobin Sodium Potassium Chloride Carbon Dioxide BUN Creatinine Glucose POC Glucose 156 H 172 H 174 H Hemoglobin A1c Calcium Phosphorus Magnesium AST Alkaline Phosphatase Total Protein Albumin Urine WBC (Auto) Urine Creatinine Urine Total Protein Crossmatch 06/12/17 06/12/17 06/13/17 22:00 23:23 00:27 WBC RBC Hgb Hct MCH MCHC RDW Plt Count Lymph % (Auto) [place] % (Auto) [place] # Seg Neutrophils % Seg Neuts % (Manual) Lymphocytes % (Manual) Monocytes % (Manual) Basophils % (Manual) Nucleated RBC % Seg Neutrophils # Seg Neutrophils # Man Lymphocytes # (Manual) Monocytes # (Manual) Eosinophils # (Manual) Basophils # (Manual) POC ABG pH ABG pH POC ABG pCO2 POC ABG pO2 ABG pO2 ABG Base Excess ABG Hemoglobin Oxyhemoglobin Sodium Potassium Chloride Carbon Dioxide BUN Creatinine Glucose POC Glucose 240 H 286 H 182 H Hemoglobin A1c Calcium Phosphorus Magnesium AST Alkaline Phosphatase Total Protein Albumin Urine WBC (Auto) Urine Creatinine Urine Total Protein Crossmatch 06/13/17 06/13/17 06/13/17 01:28 02:10 03:15 WBC RBC Hgb Hct MCH MCHC RDW Plt Count Lymph % (Auto) [place] % (Auto) [place] # Seg Neutrophils % Seg Neuts % (Manual) Lymphocytes % (Manual) Monocytes % (Manual) Basophils % (Manual) Nucleated RBC % Seg Neutrophils # Seg Neutrophils # Man Lymphocytes # (Manual) Monocytes # (Manual) Eosinophils # (Manual) Basophils # (Manual) POC ABG pH ABG pH POC ABG pCO2 POC ABG pO2 ABG pO2 ABG Base Excess ABG Hemoglobin Oxyhemoglobin Sodium Potassium Chloride Carbon Dioxide BUN Creatinine Glucose POC Glucose 304 H 277 H 318 H Hemoglobin A1c Calcium Phosphorus Magnesium AST Alkaline Phosphatase Total Protein Albumin Urine WBC (Auto) Urine Creatinine Urine Total Protein Crossmatch 06/13/17 06/13/17 06/13/17 04:15 05:10 05:38 WBC RBC Hgb Hct MCH MCHC RDW Plt Count Lymph % (Auto) [place] % (Auto) [place] # Seg Neutrophils % Seg Neuts % (Manual) Lymphocytes % (Manual) Monocytes % (Manual) Basophils % (Manual) Nucleated RBC % Seg Neutrophils # Seg Neutrophils # Man Lymphocytes # (Manual) Monocytes # (Manual) Eosinophils # (Manual) Basophils # (Manual) POC ABG pH ABG pH POC ABG pCO2 POC ABG pO2 ABG pO2 ABG Base Excess ABG Hemoglobin Oxyhemoglobin Sodium Potassium Chloride Carbon Dioxide BUN Creatinine Glucose POC Glucose 294 H 275 H 315 H Hemoglobin A1c Calcium Phosphorus Magnesium AST Alkaline Phosphatase Total Protein Albumin Urine WBC (Auto) Urine Creatinine Urine Total Protein Crossmatch 06/13/17 06/13/17 06/13/17 06:21 12:02 16:52 WBC RBC Hgb Hct MCH MCHC RDW Plt Count Lymph % (Auto) [place] % (Auto) [place] # Seg Neutrophils % Seg Neuts % (Manual) Lymphocytes % (Manual) Monocytes % (Manual) Basophils % (Manual) Nucleated RBC % Seg Neutrophils # Seg Neutrophils # Man Lymphocytes # (Manual) Monocytes # (Manual) Eosinophils # (Manual) Basophils # (Manual) POC ABG pH ABG pH POC ABG pCO2 POC ABG pO2 ABG pO2 ABG Base Excess ABG Hemoglobin Oxyhemoglobin Sodium Potassium Chloride Carbon Dioxide BUN Creatinine Glucose POC Glucose 350 H 333 H 343 H Hemoglobin A1c Calcium Phosphorus Magnesium AST Alkaline Phosphatase Total Protein Albumin Urine WBC (Auto) Urine Creatinine Urine Total Protein Crossmatch 06/14/17 06/14/17 06/14/17 00:01 04:18 04:18 WBC 29.6 H RBC 2.81 L Hgb 7.8 L Hct 23.2 L MCH MCHC RDW 15.3 H Plt Count Lymph % (Auto) [place] % (Auto) [place] # Seg Neutrophils % Seg Neuts % (Manual) Lymphocytes % (Manual) Monocytes % (Manual) Basophils % (Manual) Nucleated RBC % Seg Neutrophils # Seg Neutrophils # Man Lymphocytes # (Manual) Monocytes # (Manual) Eosinophils # (Manual) Basophils # (Manual) POC ABG pH ABG pH POC ABG pCO2 POC ABG pO2 ABG pO2 ABG Base Excess ABG Hemoglobin Oxyhemoglobin Sodium Potassium Chloride Carbon Dioxide 20 L BUN 75 H Creatinine 2.2 H Glucose 364 H POC Glucose 297 H Hemoglobin A1c Calcium Phosphorus Magnesium AST Alkaline Phosphatase Total Protein Albumin Urine WBC (Auto) Urine Creatinine Urine Total Protein Crossmatch 06/14/17 06/14/17 06/14/17 05:10 08:25 11:46 WBC RBC Hgb Hct MCH MCHC RDW Plt Count Lymph % (Auto) [place] % (Auto) [place] # Seg Neutrophils % Seg Neuts % (Manual) Lymphocytes % (Manual) Monocytes % (Manual) Basophils % (Manual) Nucleated RBC % Seg Neutrophils # Seg Neutrophils # Man Lymphocytes # (Manual) Monocytes # (Manual) Eosinophils # (Manual) Basophils # (Manual) POC ABG pH ABG pH POC ABG pCO2 POC ABG pO2 ABG pO2 ABG Base Excess ABG Hemoglobin Oxyhemoglobin Sodium Potassium Chloride Carbon Dioxide BUN Creatinine Glucose POC Glucose 350 H 322 H 391 H Hemoglobin A1c Calcium Phosphorus Magnesium AST Alkaline Phosphatase Total Protein Albumin Urine WBC (Auto) Urine Creatinine Urine Total Protein Crossmatch 06/14/17 06/15/17 06/15/17 18:04 00:16 11:20 WBC RBC Hgb Hct MCH MCHC RDW Plt Count Lymph % (Auto) [place] % (Auto) [place] # Seg Neutrophils % Seg Neuts % (Manual) Lymphocytes % (Manual) Monocytes % (Manual) Basophils % (Manual) Nucleated RBC % Seg Neutrophils # Seg Neutrophils # Man Lymphocytes # (Manual) Monocytes # (Manual) Eosinophils # (Manual) Basophils # (Manual) POC ABG pH ABG pH POC ABG pCO2 POC ABG pO2 ABG pO2 ABG Base Excess ABG Hemoglobin Oxyhemoglobin Sodium Potassium Chloride Carbon Dioxide 21 L BUN 88 H Creatinine 2.7 H Glucose 302 H POC Glucose 384 H 435 H Hemoglobin A1c Calcium Phosphorus Magnesium AST Alkaline Phosphatase Total Protein Albumin Urine WBC (Auto) Urine Creatinine Urine Total Protein Crossmatch 06/15/17 06/15/17 06/15/17 11:47 17:35 21:33 WBC RBC Hgb Hct MCH MCHC RDW Plt Count Lymph % (Auto) [place] % (Auto) [place] # Seg Neutrophils % Seg Neuts % (Manual) Lymphocytes % (Manual) Monocytes % (Manual) Basophils % (Manual) Nucleated RBC % Seg Neutrophils # Seg Neutrophils # Man Lymphocytes # (Manual) Monocytes # (Manual) Eosinophils # (Manual) Basophils # (Manual) POC ABG pH ABG pH POC ABG pCO2 POC ABG pO2 ABG pO2 ABG Base Excess ABG Hemoglobin Oxyhemoglobin Sodium Potassium Chloride Carbon Dioxide BUN Creatinine Glucose POC Glucose 311 H 428 H 346 H Hemoglobin A1c Calcium Phosphorus Magnesium AST Alkaline Phosphatase Total Protein Albumin Urine WBC (Auto) Urine Creatinine Urine Total Protein Crossmatch 06/15/17 06/15/17 06/16/17 23:23 Unknown 05:36 WBC RBC Hgb Hct MCH MCHC RDW Plt Count Lymph % (Auto) [place] % (Auto) [place] # Seg Neutrophils % Seg Neuts % (Manual) Lymphocytes % (Manual) Monocytes % (Manual) Basophils % (Manual) Nucleated RBC % Seg Neutrophils # Seg Neutrophils # Man Lymphocytes # (Manual) Monocytes # (Manual) Eosinophils # (Manual) Basophils # (Manual) POC ABG pH ABG pH POC ABG pCO2 POC ABG pO2 ABG pO2 ABG Base Excess ABG Hemoglobin 10.1 L Oxyhemoglobin 94.9 L Sodium Potassium Chloride Carbon Dioxide BUN Creatinine Glucose POC Glucose 351 H 303 H Hemoglobin A1c Calcium Phosphorus Magnesium AST Alkaline Phosphatase Total Protein Albumin Urine WBC (Auto) Urine Creatinine Urine Total Protein Crossmatch 06/16/17 06/16/17 06/16/17 06:33 06:33 08:26 WBC 25.8 H RBC 2.68 L Hgb 7.2 L Hct 21.6 L MCH 27 L MCHC RDW 15.9 H Plt Count Lymph % (Auto) [place] % (Auto) [place] # Seg Neutrophils % Seg Neuts % (Manual) Lymphocytes % (Manual) Monocytes % (Manual) Basophils % (Manual) Nucleated RBC % Seg Neutrophils # Seg Neutrophils # Man Lymphocytes # (Manual) Monocytes # (Manual) Eosinophils # (Manual) Basophils # (Manual) POC ABG pH ABG pH POC ABG pCO2 POC ABG pO2 ABG pO2 ABG Base Excess ABG Hemoglobin Oxyhemoglobin Sodium Potassium Chloride Carbon Dioxide 21 L BUN 94 H Creatinine 2.7 H Glucose 280 H POC Glucose Hemoglobin A1c Calcium Phosphorus Magnesium AST Alkaline Phosphatase Total Protein Albumin Urine WBC (Auto) > 182.0 H Urine Creatinine Urine Total Protein Crossmatch 06/16/17 06/16/17 06/16/17 08:26 11:45 18:28 WBC RBC Hgb Hct MCH MCHC RDW Plt Count Lymph % (Auto) [place] % (Auto) [place] # Seg Neutrophils % Seg Neuts % (Manual) Lymphocytes % (Manual) Monocytes % (Manual) Basophils % (Manual) Nucleated RBC % Seg Neutrophils # Seg Neutrophils # Man Lymphocytes # (Manual) Monocytes # (Manual) Eosinophils # (Manual) Basophils # (Manual) POC ABG pH ABG pH POC ABG pCO2 POC ABG pO2 ABG pO2 ABG Base Excess ABG Hemoglobin Oxyhemoglobin Sodium Potassium Chloride Carbon Dioxide BUN Creatinine Glucose POC Glucose 263 H 175 H Hemoglobin A1c Calcium Phosphorus Magnesium AST Alkaline Phosphatase Total Protein Albumin Urine WBC (Auto) Urine Creatinine 119.9 H Urine Total Protein 295 H Crossmatch 06/16/17 06/17/17 06/17/17 23:36 03:51 04:04 WBC 28.1 H RBC 2.61 L Hgb 7.1 L Hct 21.5 L MCH 27 L MCHC RDW 15.8 H Plt Count Lymph % (Auto) [place] % (Auto) [place] # Seg Neutrophils % Seg Neuts % (Manual) 90.5 H Lymphocytes % (Manual) 2.0 L Monocytes % (Manual) Basophils % (Manual) Nucleated RBC % Seg Neutrophils # Seg Neutrophils # Man 25.4 H Lymphocytes # (Manual) 0.6 L Monocytes # (Manual) 1.5 H Eosinophils # (Manual) Basophils # (Manual) POC ABG pH ABG pH 7.483 H POC ABG pCO2 POC ABG pO2 ABG pO2 144.0 H ABG Base Excess -2.1 L ABG Hemoglobin 6.5 L Oxyhemoglobin Sodium Potassium Chloride Carbon Dioxide BUN Creatinine Glucose POC Glucose 152 H Hemoglobin A1c Calcium Phosphorus Magnesium AST Alkaline Phosphatase Total Protein Albumin Urine WBC (Auto) Urine Creatinine Urine Total Protein Crossmatch 06/17/17 06/17/17 06/17/17 04:04 05:34 09:34 WBC RBC Hgb Hct MCH MCHC RDW Plt Count Lymph % (Auto) [place] % (Auto) [place] # Seg Neutrophils % Seg Neuts % (Manual) Lymphocytes % (Manual) Monocytes % (Manual) Basophils % (Manual) Nucleated RBC % Seg Neutrophils # Seg Neutrophils # Man Lymphocytes # (Manual) Monocytes # (Manual) Eosinophils # (Manual) Basophils # (Manual) POC ABG pH ABG pH POC ABG pCO2 POC ABG pO2 ABG pO2 ABG Base Excess ABG Hemoglobin Oxyhemoglobin Sodium 136 L Potassium Chloride Carbon Dioxide 20 L BUN 97 H Creatinine 2.7 H Glucose 151 H POC Glucose 203 H 243 H Hemoglobin A1c Calcium Phosphorus Magnesium AST Alkaline Phosphatase Total Protein Albumin Urine WBC (Auto) Urine Creatinine Urine Total Protein Crossmatch 06/17/17 06/17/17 06/17/17 12:36 17:24 21:36 WBC RBC Hgb Hct MCH MCHC RDW Plt Count Lymph % (Auto) [place] % (Auto) [place] # Seg Neutrophils % Seg Neuts % (Manual) Lymphocytes % (Manual) Monocytes % (Manual) Basophils % (Manual) Nucleated RBC % Seg Neutrophils # Seg Neutrophils # Man Lymphocytes # (Manual) Monocytes # (Manual) Eosinophils # (Manual) Basophils # (Manual) POC ABG pH ABG pH POC ABG pCO2 POC ABG pO2 ABG pO2 ABG Base Excess ABG Hemoglobin Oxyhemoglobin Sodium Potassium Chloride Carbon Dioxide BUN Creatinine Glucose POC Glucose 214 H 131 H 175 H Hemoglobin A1c Calcium Phosphorus Magnesium AST Alkaline Phosphatase Total Protein Albumin Urine WBC (Auto) Urine Creatinine Urine Total Protein Crossmatch 06/18/17 06/18/17 06/18/17 00:14 04:55 10:57 WBC RBC Hgb Hct MCH MCHC RDW Plt Count Lymph % (Auto) [place] % (Auto) [place] # Seg Neutrophils % Seg Neuts % (Manual) Lymphocytes % (Manual) Monocytes % (Manual) Basophils % (Manual) Nucleated RBC % Seg Neutrophils # Seg Neutrophils # Man Lymphocytes # (Manual) Monocytes # (Manual) Eosinophils # (Manual) Basophils # (Manual) POC ABG pH ABG pH POC ABG pCO2 POC ABG pO2 ABG pO2 ABG Base Excess ABG Hemoglobin Oxyhemoglobin Sodium 134 L Potassium Chloride Carbon Dioxide 19 L BUN 107 H Creatinine 2.7 H Glucose 196 H POC Glucose 171 H 161 H Hemoglobin A1c Calcium Phosphorus Magnesium AST Alkaline Phosphatase Total Protein Albumin Urine WBC (Auto) Urine Creatinine Urine Total Protein Crossmatch 06/18/17 06/18/17 06/19/17 17:31 23:25 04:24 WBC 33.8 H RBC 2.46 L Hgb 6.7 L Hct 20.0 L MCH 27 L MCHC RDW 15.4 H Plt Count Lymph % (Auto) [place] % (Auto) [place] # Seg Neutrophils % Seg Neuts % (Manual) 91.0 H Lymphocytes % (Manual) 2.0 L Monocytes % (Manual) Basophils % (Manual) Nucleated RBC % Seg Neutrophils # Seg Neutrophils # Man 30.8 H Lymphocytes # (Manual) 0.7 L Monocytes # (Manual) 2.0 H Eosinophils # (Manual) Basophils # (Manual) POC ABG pH ABG pH POC ABG pCO2 POC ABG pO2 ABG pO2 ABG Base Excess ABG Hemoglobin Oxyhemoglobin Sodium Potassium Chloride Carbon Dioxide BUN Creatinine Glucose POC Glucose 241 H 303 H Hemoglobin A1c Calcium Phosphorus Magnesium AST Alkaline Phosphatase Total Protein Albumin Urine WBC (Auto) Urine Creatinine Urine Total Protein Crossmatch 06/19/17 06/19/17 06/19/17 04:24 05:19 12:14 WBC RBC Hgb Hct MCH MCHC RDW Plt Count Lymph % (Auto) [place] % (Auto) [place] # Seg Neutrophils % Seg Neuts % (Manual) Lymphocytes % (Manual) Monocytes % (Manual) Basophils % (Manual) Nucleated RBC % Seg Neutrophils # Seg Neutrophils # Man Lymphocytes # (Manual) Monocytes # (Manual) Eosinophils # (Manual) Basophils # (Manual) POC ABG pH ABG pH POC ABG pCO2 POC ABG pO2 ABG pO2 ABG Base Excess ABG Hemoglobin Oxyhemoglobin Sodium 135 L Potassium Chloride 97.2 L Carbon Dioxide 20 L BUN 116 H Creatinine 3.1 H Glucose 220 H POC Glucose 238 H 224 H Hemoglobin A1c Calcium Phosphorus Magnesium AST Alkaline Phosphatase Total Protein Albumin Urine WBC (Auto) Urine Creatinine Urine Total Protein Crossmatch 06/19/17 06/19/17 06/20/17 16:45 16:50 04:34 WBC 36.4 H RBC 2.86 L Hgb 7.8 L Hct 24.4 L MCH 27 L MCHC RDW 16.2 H Plt Count 441 H Lymph % (Auto) [place] % (Auto) [place] # Seg Neutrophils % Seg Neuts % (Manual) 72.0 H Lymphocytes % (Manual) 9.0 L Monocytes % (Manual) 9.0 H Basophils % (Manual) Nucleated RBC % Seg Neutrophils # Seg Neutrophils # Man 26.2 H Lymphocytes # (Manual) Monocytes # (Manual) 3.3 H Eosinophils # (Manual) Basophils # (Manual) POC ABG pH ABG pH POC ABG pCO2 POC ABG pO2 ABG pO2 ABG Base Excess ABG Hemoglobin Oxyhemoglobin Sodium Potassium Chloride Carbon Dioxide BUN Creatinine Glucose POC Glucose 177 H Hemoglobin A1c Calcium Phosphorus Magnesium AST Alkaline Phosphatase Total Protein Albumin Urine WBC (Auto) Urine Creatinine Urine Total Protein Crossmatch See Detail 06/20/17 06/20/17 06/20/17 04:34 04:58 12:33 WBC RBC Hgb Hct MCH MCHC RDW Plt Count Lymph % (Auto) [place] % (Auto) [place] # Seg Neutrophils % Seg Neuts % (Manual) Lymphocytes % (Manual) Monocytes % (Manual) Basophils % (Manual) Nucleated RBC % Seg Neutrophils # Seg Neutrophils # Man Lymphocytes # (Manual) Monocytes # (Manual) Eosinophils # (Manual) Basophils # (Manual) POC ABG pH ABG pH POC ABG pCO2 POC ABG pO2 ABG pO2 ABG Base Excess ABG Hemoglobin Oxyhemoglobin Sodium Potassium Chloride Carbon Dioxide 18 L BUN 109 H Creatinine 2.8 H Glucose POC Glucose 108 H 130 H Hemoglobin A1c Calcium Phosphorus Magnesium AST Alkaline Phosphatase Total Protein Albumin Urine WBC (Auto) Urine Creatinine Urine Total Protein Crossmatch 06/20/17 06/20/17 06/21/17 17:06 23:33 05:23 WBC RBC Hgb Hct MCH MCHC RDW Plt Count Lymph % (Auto) [place] % (Auto) [place] # Seg Neutrophils % Seg Neuts % (Manual) Lymphocytes % (Manual) Monocytes % (Manual) Basophils % (Manual) Nucleated RBC % Seg Neutrophils # Seg Neutrophils # Man Lymphocytes # (Manual) Monocytes # (Manual) Eosinophils # (Manual) Basophils # (Manual) POC ABG pH ABG pH POC ABG pCO2 POC ABG pO2 ABG pO2 ABG Base Excess ABG Hemoglobin Oxyhemoglobin Sodium Potassium Chloride Carbon Dioxide 18 L BUN 105 H Creatinine 2.5 H Glucose 154 H POC Glucose 154 H 174 H Hemoglobin A1c Calcium Phosphorus Magnesium AST Alkaline Phosphatase Total Protein Albumin Urine WBC (Auto) Urine Creatinine Urine Total Protein Crossmatch 06/21/17 06/21/17 06/21/17 06:05 09:12 11:55 WBC RBC Hgb Hct MCH MCHC RDW Plt Count Lymph % (Auto) [place] % (Auto) [place] # Seg Neutrophils % Seg Neuts % (Manual) Lymphocytes % (Manual) Monocytes % (Manual) Basophils % (Manual) Nucleated RBC % Seg Neutrophils # Seg Neutrophils # Man Lymphocytes # (Manual) Monocytes # (Manual) Eosinophils # (Manual) Basophils # (Manual) POC ABG pH ABG pH POC ABG pCO2 POC ABG pO2 ABG pO2 ABG Base Excess ABG Hemoglobin Oxyhemoglobin Sodium Potassium Chloride Carbon Dioxide BUN Creatinine Glucose POC Glucose 168 H 183 H 174 H Hemoglobin A1c Calcium Phosphorus Magnesium AST Alkaline Phosphatase Total Protein Albumin Urine WBC (Auto) Urine Creatinine Urine Total Protein Crossmatch 06/21/17 06/21/17 06/21/17 16:52 17:10 23:45 WBC 28.0 H RBC 2.98 L Hgb 8.0 L Hct 26.1 L MCH 27 L MCHC RDW 16.6 H Plt Count Lymph % (Auto) [place] % (Auto) [place] # Seg Neutrophils % Seg Neuts % (Manual) Lymphocytes % (Manual) Monocytes % (Manual) Basophils % (Manual) Nucleated RBC % Seg Neutrophils # Seg Neutrophils # Man Lymphocytes # (Manual) Monocytes # (Manual) Eosinophils # (Manual) Basophils # (Manual) POC ABG pH ABG pH POC ABG pCO2 POC ABG pO2 ABG pO2 ABG Base Excess ABG Hemoglobin Oxyhemoglobin Sodium Potassium Chloride Carbon Dioxide BUN Creatinine Glucose POC Glucose 194 H 175 H Hemoglobin A1c Calcium Phosphorus Magnesium AST Alkaline Phosphatase Total Protein Albumin Urine WBC (Auto) Urine Creatinine Urine Total Protein Crossmatch 06/22/17 06/22/17 06/22/17 04:48 04:48 05:40 WBC 27.0 H RBC 2.88 L Hgb 7.9 L Hct 23.9 L MCH MCHC RDW 16.4 H Plt Count 493 H Lymph % (Auto) [place] % (Auto) [place] # Seg Neutrophils % Seg Neuts % (Manual) 91.0 H Lymphocytes % (Manual) 0 L Monocytes % (Manual) Basophils % (Manual) Nucleated RBC % 1.0 H Seg Neutrophils # Seg Neutrophils # Man 24.6 H Lymphocytes # (Manual) 0.0 L Monocytes # (Manual) 1.1 H Eosinophils # (Manual) 0.5 H Basophils # (Manual) POC ABG pH ABG pH POC ABG pCO2 POC ABG pO2 ABG pO2 ABG Base Excess ABG Hemoglobin Oxyhemoglobin Sodium Potassium Chloride Carbon Dioxide 19 L BUN 95 H Creatinine 2.3 H Glucose 159 H POC Glucose 172 H Hemoglobin A1c Calcium Phosphorus Magnesium AST Alkaline Phosphatase Total Protein Albumin Urine WBC (Auto) Urine Creatinine Urine Total Protein Crossmatch
[2017-06-22] MEDS: FLAGYL 500 MG/100 ML 500 MG/100 ML BAG IV SCH ×2 (13:23→21:44)
--- NOTE | 2017-06-22 13:34 | XRay Report ---
PORTABLE CHEST INDICATION: Pneumonia. COMPARISON: 06/15/2017 FINDINGS: Portable, frontal chest radiograph demonstrate stable cardiomediastinal silhouette/mild cardiomegaly, tracheostomy tube, EKG leads, osseous structures and left mid to lower lung hazy possible layering fluid obscuring the left hemidiaphragm. Right lung now clear. CONCLUSION: Interval clearing of right upper lobe with stable hazy left lower lung opacity/effusion, cardiomegaly and a tracheostomy tube, as described. Please correlate. Thank you for the opportunity to participate in this patient's care.
--- NOTE | 2017-06-22 18:19 | Progress Note ---
Assessment and Plan /Sepsis, with leukocytosis, tachycardia tachypnea - Pneumonia versus UTI versus atelectasis vs diarrhea - Continue antibiotics for now with Vanc and cefepime - consulted ID for further recommendation /PNA with sepsis - Placed on cefepime, and flagyl - will follow ID recommendation /Acute hypoxic respiratory failure -was intubated, on mechanical ventilation>96hrs, now tracheostomy to ventilator -Had PEG and Trach, 06/11/17 - s/p bronch on 05/17 showed Right upper lobe atelectasis, respiratory failure partial mucous plugging right upper lobe - BAL positive for Klebsiella pneumoniae, sensitive to cefepime /Status post cardiac arrest - Cardiology following - EF 15-20% /Acute encephalopathy with anoxic hypoxic brain injury -Continue supportive care - discussion with family in progress for comfort care - Neurology following the patient and recommended a DO NOT RESUSCITATE followed by comfort care /Seizure disorder-complex partial - Patient is on IV Keppra -Neurology following Cardiomyopathy -Cardiology following, continue aspirin, statin, beta jas, lasix - ACEI on hold for JERRI Hyperosmolar hyperglycemic syndrome in Diabetes mellitus type 2. This had resolved - She was on Insulin drip, now on subcut Insulin - Insulin dose increased to 25 Units bid because of hyperglycemia /Hypoglycemia.episodes, Now resolved /Acute kidney injury, likely vasomotor nephropathy -Creatinine 2.8 today - Nephrology following /Hypertension. BP stable with beta jas, hydralazine, Imdur, lasix /Anemia, s/p 1 unit PRBC transfusion, no GI loss, stool for occult negative /Nutrition - not tolerating TF, noted high residual, started on d5NS @ 30Ml/H, placed on reglan q6h /malfunctioning PEG tube? - GS reconsulted, TF on hold now /Disposition - Continue ICU care. poor prognosis - may need LTAC placement if family does not want comfort care /DVT prophylaxis with Lovenox POOR PROGNOSIS DNR status Brief history: Patient had 36-year-old -[place] female was admitted to the floor for seizure episode, altered mental status, acute hypoxic respiratory failure, patient was intubated in the emergency department patient had PEA and resuscitated successfully. She was placed on trach and PEG tube on 06/11/17. Neurology was consulted and recommended DNR and comfort care. Family now wished for DNR but still deciding for comfort care. CM working on LTAC placement. Radiological studies: CXRys: No infiltrates, atelectasis Abdominal xrys CT head - no bleed, mass or acute CVA MRI brain: Extensive anoxic brain injury, mastoiditis Hospitalist Physical Gen appearance:Not in acute distress, lying in bed, obese HEENT: facial edema, Neck:supple, no JVD, Tracheostomy Lungs: Coarse breath sounds bilaterally, no wheeze Heart: S1 and S2 regular, no murmurs, rubs or gallop Abdomen: soft, non tender, non distended, normal bowel sounds, PEG tube present Ext: Edema both upper and lower extremities, no cyanosis,anasarca Neuro: Unresponsive Subjective Date of service: 06/22/17 Principal diagnosis: coma Interval history: pt seen and examined Unresponsive, No fever PEG and Trach done 06/11 s/p bronch on 05/17 The WBC count trending up, RN reported leacking around TF Objective - Constitutional Vitals: Vital Signs - 12hr 06/22/17 06/22/17 06/22/17 07:00 08:00 08:40 Temperature 98.5 F Pulse Rate 88 85 84 Respiratory 18 18 Rate Blood Pressure 142/78 129/64 129/64 O2 Sat by Pulse 97 99 100 Oximetry O2 Sat by Pulse Oximetry [ Assessment] 06/22/17 06/22/17 06/22/17 09:00 09:32 10:00 Temperature Pulse Rate 84 85 89 Respiratory 17 19 Rate Blood Pressure 127/65 127/65 136/67 O2 Sat by Pulse 99 99 Oximetry O2 Sat by Pulse Oximetry [ Assessment] 06/22/17 06/22/17 06/22/17 11:00 12:00 12:20 Temperature 98.4 F Pulse Rate 89 89 87 Respiratory 17 23 Rate Blood Pressure 127/66 131/68 131/68 O2 Sat by Pulse 99 98 99 Oximetry O2 Sat by Pulse Oximetry [ Assessment] 06/22/17 06/22/17 06/22/17 13:00 13:23 14:00 Temperature Pulse Rate 86 85 87 Respiratory 21 22 Rate Blood Pressure 129/71 129/71 118/67 O2 Sat by Pulse 97 100 Oximetry O2 Sat by Pulse Oximetry [ Assessment] 06/22/17 06/22/17 06/22/17 15:00 16:00 16:30 Temperature 99.1 F Pulse Rate 86 90 87 Respiratory 20 23 Rate Blood Pressure 127/72 127/74 127/74 O2 Sat by Pulse 99 99 100 Oximetry O2 Sat by Pulse 100 Oximetry [ Assessment] 06/22/17 06/22/17 17:01 18:00 Temperature Pulse Rate 85 88 Respiratory 20 19 Rate Blood Pressure 127/74 126/78 O2 Sat by Pulse 100 99 Oximetry O2 Sat by Pulse Oximetry [ Assessment] - Labs CBC & Chem 7: 06/22/17 04:48 06/22/17 04:48 Labs: Abnormal lab results 06/21/17 06/22/17 06/22/17 Range/Units 23:45 04:48 04:48 WBC 27.0 H (4.5-11.0) K/mm3 RBC 2.88 L (3.65-5.03) M/mm3 Hgb 7.9 L (10.1-14.3) gm/dl Hct 23.9 L (30.3-42.9) % RDW 16.4 H (13.2-15.2) % Plt Count 493 H (140-440) K/mm3 Seg Neuts % (Manual) 91.0 H (40.0-70.0) % Lymphocytes % (Manual) 0 L (13.4-35.0) % Nucleated RBC % 1.0 H (0.0-0.9) % Seg Neutrophils # Man 24.6 H (1.8-7.7) K/mm3 Lymphocytes # (Manual) 0.0 L (1.2-5.4) K/mm3 Monocytes # (Manual) 1.1 H (0.0-0.8) K/mm3 Eosinophils # (Manual) 0.5 H (0.0-0.4) K/mm3 Carbon Dioxide 19 L (22-30) mmol/L BUN 95 H (7-17) mg/dL Creatinine 2.3 H (0.7-1.2) mg/dL Glucose 159 H (65-100) mg/dL POC Glucose 175 H (70-105) 06/22/17 06/22/17 Range/Units 05:40 12:09 WBC (4.5-11.0) K/mm3 RBC (3.65-5.03) M/mm3 Hgb (10.1-14.3) gm/dl Hct (30.3-42.9) % RDW (13.2-15.2) % Plt Count (140-440) K/mm3 Seg Neuts % (Manual) (40.0-70.0) % Lymphocytes % (Manual) (13.4-35.0) % Nucleated RBC % (0.0-0.9) % Seg Neutrophils # Man (1.8-7.7) K/mm3 Lymphocytes # (Manual) (1.2-5.4) K/mm3 Monocytes # (Manual) (0.0-0.8) K/mm3 Eosinophils # (Manual) (0.0-0.4) K/mm3 Carbon Dioxide (22-30) mmol/L BUN (7-17) mg/dL Creatinine (0.7-1.2) mg/dL Glucose (65-100) mg/dL POC Glucose 172 H 207 H (70-105)
--- NOTE | 2017-06-22 19:22 | Consultation ---
History of Present Illness Consult date: 06/22/17 Chief complaint: malfunctioning peg tube - History of present illness History of present illness: 36 yo F with hx of HTN, DM who presented to the hospital s/p seizures with altered mental status. The patient was intubated on arrival secondary to altered mental status. She has had a history of intubation in the past. She was also found to be severely hyperglycemic with blood glucose in the 500s. The patient is s/p cardiac arrest and has been unable to be weaned from the ventilator. She is s/p percutaneous tracheostomy and PEG tube placement by myself and Dr. palma on 06/11/17. Surgery is reconsulted to evaluate PEG tube. Per nursing notes, tube feeds were seen leaking around PEG. Minimal residuals noted in nursing notes. Patient has been tolerating TF. Past History Past Medical History: diabetes, hypertension, seizures, other (gastroparesis) Past Surgical History: cholecystectomy, Other (botox for gastroparesis, bilateral breast reduction) Social history: no significant social history, , other (some marijuana to help gastroparesis.). denies: smoking, alcohol abuse (as one drink per month her mother estimates.), prescription drug abuse, IV drug use Family history: no significant family history, diabetes (both sides family), hypertension (both sides of family), stroke (mother), other (epilepsy in paternal first cousin and a first cousin wants removed on maternal side) Medications and Allergies Allergies Allergy/AdvReac Type Severity Reaction Status Date / Time lisinopril Allergy Angioedema Verified 12/30/16 12:06 Home Medications Medication Instructions Recorded Confirmed Last Taken Type Insulin Regular, Human [Novolin R] 22 units SQ AC 30 Days vial 01/01/17 Unknown Rx Bumetanide [Bumetanide 2 mg tab] 2 mg PO DAILY 06/02/17 06/02/17 Unknown History Carvedilol [Coreg] 6.25 mg PO BID 06/02/17 06/02/17 Unknown History Dicyclomine [Bentyl] 1 cap PO BID PRN 06/02/17 06/02/17 Unknown History Furosemide [Lasix TAB] 40 mg PO QDAY 06/02/17 06/02/17 Unknown History HYDROcodone/APAP 5-325 1 - 2 tab PO Q6HR PRN 06/02/17 06/02/17 Unknown History Metoclopramide [Reglan TAB] 1 tab PO Q6HR 06/02/17 06/02/17 Unknown History Pantoprazole [Protonix] 40 mg PO QDAY 06/02/17 06/02/17 Unknown History Valsartan/Hydrochlorothiazide 1 tab PO DAILY 06/02/17 06/02/17 Unknown History [Valsartan-Hctz 160-12.5 mg Tab] Active Meds: Active Medications Acetaminophen (Tylenol) 650 mg FEEDTUBE Q6H PRN PRN Reason: Pain, Mild (1-3) Last Admin: 05/30/17 22:44 Dose: 650 mg Lipase/Protease/Amylase (Pancreaze Dr 10,500 Unit) 1 each FEEDTUBE PRN PRN PRN Reason: For Clogged Feeding Tube Atorvastatin Calcium (Lipitor) 40 mg PO QHS [facility] Last Admin: 06/21/17 22:27 Dose: 40 mg Carvedilol (Coreg) 25 mg PO BID [facility] Last Admin: 06/22/17 09:32 Dose: 25 mg Dextrose (D50w (25gm) Syringe) 0 ml IV PRN PRN PRN Reason: Hypoglycemia Last Admin: 06/12/17 08:26 Dose: 50 ml Enoxaparin Sodium (Lovenox) 30 mg SUB-Q QDAY [facility] Last Admin: 06/22/17 09:31 Dose: 30 mg Furosemide (Lasix) 40 mg PO QDAY [facility] Last Admin: 06/22/17 09:31 Dose: 40 mg Glycopyrrolate (Robinul) 1 mg FEEDTUBE TID [facility] Last Admin: 06/22/17 13:23 Dose: 1 mg Hydralazine HCl (Apresoline) 10 mg IV Q6HR PRN PRN Reason: Hypertension Last Admin: 06/07/17 01:01 Dose: 10 mg Hydralazine HCl (Apresoline) 50 mg PO Q8HR [facility] Last Admin: 06/22/17 13:23 Dose: 50 mg Hydrophilic Ointment (Vaseline Lip Therapy) 1 applic TP Q2HR PRN PRN Reason: Dry Lips Last Admin: 06/02/17 17:03 Dose: 1 applic Cefepime HCl 2 gm/ Sodium (Chloride) 20 mls @ 2 mls/min IV Q24HR [facility] Last Admin: 06/22/17 09:31 Dose: 2 mls/min Metronidazole (Flagyl 500 Mg/100 Ml) 500 mg in 100 mls @ 100 mls/hr IV Q8HR [facility] Last Admin: 06/22/17 13:23 Dose: 100 mls/hr Insulin Human Isoph/Insulin Regular (Humulin 70/30) 35 unit SUB-Q BID [facility] Last Admin: 06/22/17 09:32 Dose: 35 unit Insulin Human Lispro (Humalog) 0 unit SUB-Q Q6HR [facility]; Protocol Last Admin: 06/22/17 17:59 Dose: Not Given Isosorbide Dinitrate (Isordil Titradose) 10 mg PO Q8HR [facility] Last Admin: 06/22/17 13:23 Dose: 10 mg Levetiracetam (Keppra) 750 mg PO BID [facility] Last Admin: 06/22/17 09:31 Dose: 750 mg Multi-Ingred Cream/Lotion/Oil/Oint (Artificial Tears Ophth Oint) 1 applic OU Q4HR PRN PRN Reason: Dry Eye(s) Last Admin: 06/08/17 11:06 Dose: 1 applic Simple Syrup (Simple Syrup) 15 ml FEEDTUBE PRN PRN PRN Reason: Hypoglycemia Simple Syrup (Simple Syrup) 30 ml FEEDTUBE PRN PRN PRN Reason: Hypoglycemia Sodium Bicarbonate (Sodium Bicarbonate) 325 mg FEEDTUBE PRN PRN PRN Reason: For Clogged Feeding Tube Sodium Chloride (Nacl 0.9% 500 Ml) 1 ml IV DIRECT [facility] Review of Systems ROS unobtainable: due to endotracheal tube, due to mental status Exam Vital Signs Pulse Resp 101 H 23 05/30/17 06:58 05/30/17 06:58 Narrative exam: Gen: Not alert or responsive, on vent via tracheostomy ENT: tracheostomy in place, site c/d/i CV: s1, s2+ Resp: on vent Abd: soft, ND, NT. PEG in place, site c/d/i with drain sponge between PEG tube bumper and skin. PEG tube bumper at 3.5cm at the skin. PEG flushes easily with saline and no leakage of fluid around tube. Few ccs of tube feeds mixed with bilious fluid along with air aspirated from PEG tube. Tube clamped. Results - Labs 06/22/17 04:48 04/09/18 04:48 Abnormal lab results 06/21/17 06/22/17 06/22/17 Range/Units 23:45 04:48 04:48 WBC 27.0 H (4.5-11.0) K/mm3 RBC 2.88 L (3.65-5.03) M/mm3 Hgb 7.9 L (10.1-14.3) gm/dl Hct 23.9 L (30.3-42.9) % RDW 16.4 H (13.2-15.2) % Plt Count 493 H (140-440) K/mm3 Seg Neuts % (Manual) 91.0 H (40.0-70.0) % Lymphocytes % (Manual) 0 L (13.4-35.0) % Nucleated RBC % 1.0 H (0.0-0.9) % Seg Neutrophils # Man 24.6 H (1.8-7.7) K/mm3 Lymphocytes # (Manual) 0.0 L (1.2-5.4) K/mm3 Monocytes # (Manual) 1.1 H (0.0-0.8) K/mm3 Eosinophils # (Manual) 0.5 H (0.0-0.4) K/mm3 Carbon Dioxide 19 L (22-30) mmol/L BUN 95 H (7-17) mg/dL Creatinine 2.3 H (0.7-1.2) mg/dL Glucose 159 H (65-100) mg/dL POC Glucose 175 H (70-105) 06/22/17 06/22/17 Range/Units 05:40 12:09 WBC (4.5-11.0) K/mm3 RBC (3.65-5.03) M/mm3 Hgb (10.1-14.3) gm/dl Hct (30.3-42.9) % RDW (13.2-15.2) % Plt Count (140-440) K/mm3 Seg Neuts % (Manual) (40.0-70.0) % Lymphocytes % (Manual) (13.4-35.0) % Nucleated RBC % (0.0-0.9) % Seg Neutrophils # Man (1.8-7.7) K/mm3 Lymphocytes # (Manual) (1.2-5.4) K/mm3 Monocytes # (Manual) (0.0-0.8) K/mm3 Eosinophils # (Manual) (0.0-0.4) K/mm3 Carbon Dioxide (22-30) mmol/L BUN (7-17) mg/dL Creatinine (0.7-1.2) mg/dL Glucose (65-100) mg/dL POC Glucose 172 H 207 H (70-105) Diabetes panel 06/22/17 Range/Units 04:48 Sodium 141 (137-145) mmol/L Potassium 3.9 (3.6-5.0) mmol/L Chloride 103.8 (98-107) mmol/L Carbon Dioxide 19 L (22-30) mmol/L BUN 95 H (7-17) mg/dL Creatinine 2.3 H (0.7-1.2) mg/dL Glucose 159 H (65-100) mg/dL Calcium 8.4 (8.4-10.2) mg/dL Calcium panel 06/22/17 Range/Units 04:48 Calcium 8.4 (8.4-10.2) mg/dL Pituitary panel 06/22/17 Range/Units 04:48 Sodium 141 (137-145) mmol/L Potassium 3.9 (3.6-5.0) mmol/L Chloride 103.8 (98-107) mmol/L Carbon Dioxide 19 L (22-30) mmol/L BUN 95 H (7-17) mg/dL Creatinine 2.3 H (0.7-1.2) mg/dL Glucose 159 H (65-100) mg/dL Calcium 8.4 (8.4-10.2) mg/dL Adrenal panel 06/22/17 Range/Units 04:48 Sodium 141 (137-145) mmol/L Potassium 3.9 (3.6-5.0) mmol/L Chloride 103.8 (98-107) mmol/L Carbon Dioxide 19 L (22-30) mmol/L BUN 95 H (7-17) mg/dL Creatinine 2.3 H (0.7-1.2) mg/dL Glucose 159 H (65-100) mg/dL Calcium 8.4 (8.4-10.2) mg/dL Assessment and Plan 36 yo F with PEG tube malfunction s/p trach and PEG on 3/29/18 1. on physical examination the PEG tube appears to be in proper place without signs of leakage. However, will obtain tube study to confirm positioning prior to restarting TF. 2. clamp PEG and hold TF 3. will follow up on tube study in am D/W Patients overnight nurse Thank you for this consultation, please call with questions or concerns.
--- NOTE | 2017-06-22 21:25 | XRay Report ---
FINAL REPORT PROCEDURE: XR G-TUBE STUDY TECHNIQUE: Two supine views of the abdomen were obtained before and after administration of barium through the existing gastrostomy tube.. HISTORY: PEG tube malfunction COMPARISON: No prior studies are available for comparison. FINDINGS: Bowel gas pattern:Intestinal gas is distributed predominantly in nondistended colon.. Masses or calcifications:None . Bony structures:No significant abnormality . Pneumoperitoneum:None . Other:A gastrostomy tube is identified. This secondary graft demonstrates contrast within the gastric lumen. IMPRESSION: Findings are consistent with intragastric location of the gastrostomy tube..
[2017-06-22] MEDS: D50W (25GM) Syringe IV PRN (22:15)
[2017-06-23] MEDS: HumaLOG SUB-Q SCH ×3 (05:40→17:47)
[2017-06-23 05:46] LABS: Hematocrit 23.6 % (30.3-42.9); Hemoglobin 7.8 gm/dl (10.1-14.3); Mean Corpuscular HGB Conc 33 % (30-34); Mean Corpuscular Hemoglobin 27 pg (28-32); Mean Corpuscular Volume 82 fl (79-97); Platelet Count 499 K/mm3 (140-440); Red Blood Count 2.89 M/mm3 (3.65-5.03); Red Cell Distribution Width 16.3 % (13.2-15.2)
[2017-06-23 05:48] LABS: Alanine Aminotransferase 40 units/L (7-56)
[2017-06-23 05:49] LABS: Bilirubin,Direct < 0.2 mg/dL (0-0.2)
[2017-06-23] MEDS: FLAGYL 500 MG/100 ML 500 MG/100 ML BAG IV SCH ×3 (05:54→21:19)
[2017-06-23] MEDS: APRESOLINE PO SCH ×3 (05:54→22:54)
[2017-06-23] MEDS: ISORDIL TITRADOSE PO SCH ×3 (05:55→22:54)
[2017-06-23 06:03] LABS: Calcium 8.3 mg/dL (8.4-10.2)
[2017-06-23 06:24] LABS: Basophils % (Manual) 0 % (0.0-1.8); Monocytes % (Manual) 2.5 % (0.0-7.3); Myelocytes # (Manual) 0.4 K/mm3; Total Cells Counted 200
[2017-06-23 06:25] LABS: Platelet Estimate Appears Increased
--- NOTE | 2017-06-23 08:03 | Progress Note ---
Assessment and Plan Assessment: 1) Acute cardiopulmonary arrest, status post CPR 05/30/17. 2) Acute respiratory failure. Intubated 05/30/17, s/p trach and G tube 06/11/17. 3) Pneumonia s/p bronch 06/17/17 with RUL atelectasis and partial mucous plugging RUL. BAL cx with K. pneumoniae and Serratia marcescens. -CXR 06/22 Stable. 4) Generalized tonic-clonic seizures on admission. 5) Acute/worsening Leukocytosis. Multifactorial. Overall better. 6) Intermittent fever. Afebrile now. 7) Acute encephalopathy due to anoxic brain injury. 8) Malfunctioning G tube. 9) Diarrhea with rectal tube in place. 10) JERRI/ATN. 11) Elevated LFTs 12) Acute sphenoid sinusitis and mild Left mastoiditis on MRI Brain 06/03/17. 13) Uncontrolled type 2 DM Recommendations: -Will f/u tracheal aspirate. -Stop vancomycin -Continue cefepime (D9). -Continue empiric flagyl since pt has had diarrhea. -IR consulted to change G tube to GJ tube. -d/w [employer], Dr Pate. Will follow up with you. Gertrude Beasley MD Infectious Diseases Specialist [facility] ([facility]) m [phone] Subjective Date of service: 06/23/17 Principal diagnosis: coma Interval history: Afebrile. Feedings noted around G tube. Abdominal X-ray showed G tube is intragastric positioning. But pt still having TF leakage around tube. Apparently patient has been having high residuals of >500cc several days ago and TF held for 2 days. Microbiology Blood cultures 05/31/17 negative 06/21/17 NGTD Sputum 05/30 normal tato BAL culture 06/17/17 Klebsiella pneumonia and Serratia marcescens Antimicrobials Cefepime 06/15/17- Flagyl 06/22- Prior antimicrobials Zosyn 05/31-06/02/17 Vancomycin 05/31-06/02/17 Cefazolin 06/11/17 IV vancomycin 06/15/17- Objective - Exam Narrative Exam: General appearance: Pt in NAD, on the vent, off sedation, not responsive. Eyes: anicteric sclerae, moist conjunctivae; pupils sluggish. HENT: Atraumatic. Trach in place. Neck: Supple. Lungs: CTA, with normal respiratory effort and no intercostal retractions CV: S1,S2. Abdomen: +BS. ND. G tube in place, leakage of TF, induration around G tube. Rectal: rectal tube in place. : blas catheter in place. Extremities: Hands edema. Skin: Normal temperature, turgor and texture; no rash, ulcers or subcutaneous nodules Psych: Not responsive. Neuro: Not responsive, off sedation. Lines: RUE midline. - Constitutional Vitals: Vital Signs Temp Pulse Resp BP Pulse Ox 97.7 F 80 14 150/79 100 06/23/17 05:27 06/23/17 07:51 06/23/17 05:01 06/23/17 07:51 06/23/17 07:59 Temperature -Last 24 Hours Temperature 97.7 F Temperature 97.4 F Temperature 98.2 F Temperature 99.1 F Temperature 98.4 F - Labs CBC & Chem 7: 06/23/17 04:41 06/23/17 04:41 Labs: Abnormal lab results 06/22/17 06/22/17 06/23/17 Range/Units 12:09 22:08 04:41 WBC (4.5-11.0) K/mm3 RBC (3.65-5.03) M/mm3 Hgb (10.1-14.3) gm/dl Hct (30.3-42.9) % MCH (28-32) pg RDW (13.2-15.2) % Plt Count (140-440) K/mm3 Seg Neuts % (Manual) (40.0-70.0) % Lymphocytes % (Manual) (13.4-35.0) % Seg Neutrophils # Man (1.8-7.7) K/mm3 Lymphocytes # (Manual) (1.2-5.4) K/mm3 Carbon Dioxide (22-30) mmol/L BUN (7-17) mg/dL Creatinine (0.7-1.2) mg/dL POC Glucose 207 H 66 L (70-105) Calcium (8.4-10.2) mg/dL AST 41 H (5-40) units/L Alkaline Phosphatase 642 H (35-129) units/L Total Protein 5.5 L (6.3-8.2) g/dL Albumin 2.0 L (3.9-5) g/dL 06/23/17 06/23/17 06/23/17 Range/Units 04:41 04:41 05:36 WBC 27.6 H (4.5-11.0) K/mm3 RBC 2.89 L (3.65-5.03) M/mm3 Hgb 7.8 L (10.1-14.3) gm/dl Hct 23.6 L (30.3-42.9) % MCH 27 L (28-32) pg RDW 16.3 H (13.2-15.2) % Plt Count 499 H (140-440) K/mm3 Seg Neuts % (Manual) 95.0 H (40.0-70.0) % Lymphocytes % (Manual) 0 L (13.4-35.0) % Seg Neutrophils # Man 26.2 H (1.8-7.7) K/mm3 Lymphocytes # (Manual) 0.0 L (1.2-5.4) K/mm3 Carbon Dioxide 19 L (22-30) mmol/L BUN 90 H (7-17) mg/dL Creatinine 2.1 H (0.7-1.2) mg/dL POC Glucose 109 H (70-105) Calcium 8.3 L (8.4-10.2) mg/dL AST (5-40) units/L Alkaline Phosphatase (35-129) units/L Total Protein (6.3-8.2) g/dL Albumin (3.9-5) g/dL
--- NOTE | 2017-06-23 08:36 | Event Note ---
Date: 06/23/17 G tube study confirms intragastric location of PEG tube. May resume TF and PEG tube care.
--- NOTE | 2017-06-23 08:52 | Progress Note ---
Assessment and Plan - Patient Problems (1) Acute renal failure with tubular necrosis Current Visit: Yes Status: Acute Plan to address problem: Non-Oliguric Acute renal failure/acute tubular necrosis. Kidney function is now improving. Follow kidney function and electrolytes on diuretics. (2) Acute respiratory failure Current Visit: Yes Status: Acute Qualifiers: Respiratory failure complication: hypoxia Qualified Code(s): J96.01 - Acute respiratory failure with hypoxia Plan to address problem: Continue Ventilator management by primary attending (3) Acute systolic heart failure Current Visit: Yes Status: Acute Plan to address problem: Continue diuretics and beta jas. ARAM inhibitor/angiotensin receptor jas contraindicated due to her history of allergy (4) Hyperosmolar non-ketotic state in patient with type 2 diabetes mellitus Current Visit: Yes Status: Acute Plan to address problem: Blood sugar management by primary attending (5) Hypertension Current Visit: Yes Status: Acute Qualifiers: Hypertension type: essential hypertension Qualified Code(s): I10 - Essential (primary) hypertension Plan to address problem: Blood pressure has improved. Follow blood pressure on current medications Subjective Date of service: 06/23/17 Principal diagnosis: coma Interval history: Patient seen lying in bed in the intensive care unit this morning. Trach intact On ventilator. Not communicating. Not following commands. No family at bedside Objective - Exam Narrative Exam: Young -[place] female lying in bed trach intact on ventilator HEENT: NCAT, Neck: Supple, no venous distention CVS: S1S2 RRR with no murmur, rub or gallop Chest: Coarse breath sounds with Low pitched rhonchi bilaterally Abdomen: Protuberant, soft, nontender, no organomegaly, bowel sounds are present Extremities: 1+ bilateral edema both upper and lower extremities Neuro: Eyes open, not following commands - Vital Signs Vital signs: Vital Signs - 12hr 06/22/17 06/22/17 06/22/17 21:00 21:44 21:45 Temperature Pulse Rate 80 77 Respiratory 15 Rate Blood Pressure 128/76 128/76 O2 Sat by Pulse 100 Oximetry O2 Sat by Pulse 100 Oximetry [ Assessment] 06/22/17 06/22/17 06/22/17 22:00 23:00 23:23 Temperature Pulse Rate 81 79 79 Respiratory 16 16 13 Rate Blood Pressure 130/77 129/73 129/73 O2 Sat by Pulse 100 99 100 Oximetry O2 Sat by Pulse Oximetry [ Assessment] 06/22/17 06/22/17 06/23/17 23:27 23:49 00:00 Temperature 97.4 F L Pulse Rate 80 81 Respiratory 15 Rate Blood Pressure 130/72 O2 Sat by Pulse 100 Oximetry O2 Sat by Pulse Oximetry [ Assessment] 06/23/17 06/23/17 06/23/17 01:00 02:00 03:00 Temperature Pulse Rate 82 79 81 Respiratory 15 15 16 Rate Blood Pressure 126/70 131/70 132/68 O2 Sat by Pulse 100 100 100 Oximetry O2 Sat by Pulse Oximetry [ Assessment] 06/23/17 06/23/17 06/23/17 03:55 04:00 05:01 Temperature Pulse Rate 80 84 82 Respiratory 16 14 Rate Blood Pressure 132/68 130/71 148/74 O2 Sat by Pulse 100 100 100 Oximetry O2 Sat by Pulse Oximetry [ Assessment] 06/23/17 06/23/17 06/23/17 05:27 05:54 07:51 Temperature 97.7 F Pulse Rate 79 80 Respiratory Rate Blood Pressure 148/74 150/79 O2 Sat by Pulse 100 Oximetry O2 Sat by Pulse Oximetry [ Assessment] 06/23/17 07:59 Temperature Pulse Rate Respiratory Rate Blood Pressure O2 Sat by Pulse 100 Oximetry O2 Sat by Pulse Oximetry [ Assessment] - Lab 06/23/17 04:41 06/23/17 04:41 Most recent lab results ABG pH 7.483 pH Units (7.350-7.450) H 06/17/17 03:51 ABG pCO2 28.7 mm Hg 06/17/17 03:51 ABG pO2 144.0 mm Hg (80.0-90.0) H 06/17/17 03:51 ABG HCO3 21.1 mmol/L (20.0-26.0) 06/17/17 03:51 ABG O2 Saturation 98.9 % (95.0-99.0) 06/17/17 03:51 Calcium 8.3 mg/dL (8.4-10.2) L 06/23/17 04:41 Phosphorus 4.10 mg/dL (2.5-4.5) 06/21/17 05:23 Magnesium 1.70 mg/dL (1.7-2.3) 06/07/17 07:51 Urine Creatinine 119.9 mg/dL (0.1-20.0) H 06/16/17 08:26 Urine Sodium 39 mmol/L 06/16/17 08:26 Urine Total Protein 295 mg/dL (5-11.8) H 06/16/17 08:26
--- NOTE | 2017-06-23 09:37 | Progress Note ---
Assessment and Plan 36 yo F with malfunctioning PEG tube, high gastric residuals secondary to known hx of gastroparesis Plan: 1. hold TF 2. consult IR to replace PEG with GJ 3. resume TF when ok with IR 4. continue critical care management per ICU team D/W Dr. Pate. Subjective Date of service: 06/23/17 Narrative: Pt seen and examined. On vent. G tube study shows intragastric positioning of PEG but in discussing with nursing this am, still having TF leakage around tube. Apparently patient has been having high residuals of >500cc several days ago and TF held for 2 days. Objective Vital Signs - 12hr 06/22/17 06/22/17 06/22/17 21:44 21:45 22:00 Temperature Pulse Rate 77 81 Respiratory 16 Rate Blood Pressure 128/76 130/77 O2 Sat by Pulse 100 Oximetry O2 Sat by Pulse 100 Oximetry [ Assessment] 06/22/17 06/22/17 06/22/17 23:00 23:23 23:27 Temperature Pulse Rate 79 79 80 Respiratory 16 13 Rate Blood Pressure 129/73 129/73 O2 Sat by Pulse 99 100 Oximetry O2 Sat by Pulse Oximetry [ Assessment] 06/22/17 06/23/17 06/23/17 23:49 00:00 01:00 Temperature 97.4 F L Pulse Rate 81 82 Respiratory 15 15 Rate Blood Pressure 130/72 126/70 O2 Sat by Pulse 100 100 Oximetry O2 Sat by Pulse Oximetry [ Assessment] 06/23/17 06/23/17 06/23/17 02:00 03:00 03:55 Temperature Pulse Rate 79 81 80 Respiratory 15 16 Rate Blood Pressure 131/70 132/68 132/68 O2 Sat by Pulse 100 100 100 Oximetry O2 Sat by Pulse Oximetry [ Assessment] 06/23/17 06/23/17 06/23/17 04:00 05:01 05:27 Temperature 97.7 F Pulse Rate 84 82 Respiratory 16 14 Rate Blood Pressure 130/71 148/74 O2 Sat by Pulse 100 100 Oximetry O2 Sat by Pulse Oximetry [ Assessment] 06/23/17 06/23/17 06/23/17 05:54 06:01 07:00 Temperature Pulse Rate 79 77 88 Respiratory 15 18 Rate Blood Pressure 148/74 140/74 150/79 O2 Sat by Pulse 100 100 Oximetry O2 Sat by Pulse Oximetry [ Assessment] 06/23/17 06/23/17 06/23/17 07:51 07:59 08:00 Temperature Pulse Rate 80 84 Respiratory 22 Rate Blood Pressure 150/79 139/73 O2 Sat by Pulse 100 100 99 Oximetry O2 Sat by Pulse Oximetry [ Assessment] 06/23/17 09:00 Temperature 98.9 F Pulse Rate 81 Respiratory 19 Rate Blood Pressure 139/71 O2 Sat by Pulse 99 Oximetry O2 Sat by Pulse Oximetry [ Assessment] - General physical appearance Narrative Exam: Gen: Not alert or responsive, on vent via tracheostomy ENT: tracheostomy in place, site c/d/i CV: s1, s2+ Resp: on vent Abd: soft, ND, NT. PEG in place with some induration around site. No evidence of cellulitis or fluctuance. A small amoutn of tube feeds seen leaking around tube. Gastric contents easily aspirated and flushed through G tube without additional leakage around tube. - Labs 06/23/17 04:41 06/23/17 04:41 Diabetes panel 06/23/17 06/23/17 Range/Units 04:41 04:41 Sodium 141 (137-145) mmol/L Potassium 4.5 (3.6-5.0) mmol/L Chloride 104.5 (98-107) mmol/L Carbon Dioxide 19 L (22-30) mmol/L BUN 90 H (7-17) mg/dL Creatinine 2.1 H (0.7-1.2) mg/dL Glucose 91 (65-100) mg/dL Calcium 8.3 L (8.4-10.2) mg/dL AST 41 H (5-40) units/L ALT 40 (7-56) units/L Alkaline Phosphatase 642 H (35-129) units/L Total Protein 5.5 L (6.3-8.2) g/dL Albumin 2.0 L (3.9-5) g/dL Calcium panel 06/23/17 06/23/17 Range/Units 04:41 04:41 Calcium 8.3 L (8.4-10.2) mg/dL Albumin 2.0 L (3.9-5) g/dL Pituitary panel 06/23/17 Range/Units 04:41 Sodium 141 (137-145) mmol/L Potassium 4.5 (3.6-5.0) mmol/L Chloride 104.5 (98-107) mmol/L Carbon Dioxide 19 L (22-30) mmol/L BUN 90 H (7-17) mg/dL Creatinine 2.1 H (0.7-1.2) mg/dL Glucose 91 (65-100) mg/dL Calcium 8.3 L (8.4-10.2) mg/dL Adrenal panel 06/23/17 06/23/17 Range/Units 04:41 04:41 Sodium 141 (137-145) mmol/L Potassium 4.5 (3.6-5.0) mmol/L Chloride 104.5 (98-107) mmol/L Carbon Dioxide 19 L (22-30) mmol/L BUN 90 H (7-17) mg/dL Creatinine 2.1 H (0.7-1.2) mg/dL Glucose 91 (65-100) mg/dL Calcium 8.3 L (8.4-10.2) mg/dL Total Bilirubin 0.30 (0.1-1.2) mg/dL AST 41 H (5-40) units/L ALT 40 (7-56) units/L Alkaline Phosphatase 642 H (35-129) units/L Total Protein 5.5 L (6.3-8.2) g/dL Albumin 2.0 L (3.9-5) g/dL
--- NOTE | 2017-06-23 09:51 | Progress Note ---
Assessment and Plan 36 y/o female with acute respiratory failure secondary to metabolic encephalopathy, thought to be from seizures, s/p cardiac arrest. 1. Will attempt 24 hour T-piece 2. CM has sent referral to LTACH. Awaiting insurance 3. PT/OT if possible 4. Blood sugar control 5. Per surgery, will need a g-j tube CCT 31 minutes. Subjective Date of service: 06/23/17 Principal diagnosis: coma Interval history: Still having High residuals. Surgery saw yesterday. Had tube study done which confirmed placement. Patient not responsive. Currently on T-piece. Objective Vital Signs - 12hr 06/22/17 06/22/17 06/22/17 22:00 23:00 23:23 Temperature Pulse Rate 81 79 79 Respiratory 16 16 13 Rate Blood Pressure 130/77 129/73 129/73 O2 Sat by Pulse 100 99 100 Oximetry 06/22/17 06/22/17 06/23/17 23:27 23:49 00:00 Temperature 97.4 F L Pulse Rate 80 81 Respiratory 15 Rate Blood Pressure 130/72 O2 Sat by Pulse 100 Oximetry 06/23/17 06/23/17 06/23/17 01:00 02:00 03:00 Temperature Pulse Rate 82 79 81 Respiratory 15 15 16 Rate Blood Pressure 126/70 131/70 132/68 O2 Sat by Pulse 100 100 100 Oximetry 06/23/17 06/23/17 06/23/17 03:55 04:00 05:01 Temperature Pulse Rate 80 84 82 Respiratory 16 14 Rate Blood Pressure 132/68 130/71 148/74 O2 Sat by Pulse 100 100 100 Oximetry 06/23/17 06/23/17 06/23/17 05:27 05:54 06:01 Temperature 97.7 F Pulse Rate 79 77 Respiratory 15 Rate Blood Pressure 148/74 140/74 O2 Sat by Pulse 100 Oximetry 06/23/17 06/23/17 06/23/17 07:00 07:51 07:59 Temperature Pulse Rate 88 80 Respiratory 18 Rate Blood Pressure 150/79 150/79 O2 Sat by Pulse 100 100 100 Oximetry 06/23/17 06/23/17 08:00 09:00 Temperature 98.9 F Pulse Rate 84 81 Respiratory 22 19 Rate Blood Pressure 139/73 139/71 O2 Sat by Pulse 99 99 Oximetry Constitutional: other (mild breathing difficulty) Eyes: non-icteric ENT: oropharynx moist, other (trach in position) Neck: supple, no JVD Effort: normal Ascultation: Right: rales, rhonchi (mild), Bilateral: clear, diminished breath sounds, other (coarse BS bilaterally) Percussion: Bilateral: not dull Cardiovascular: regular rate and rhythm Gastrointestinal: normoactive bowel sounds, soft, non-tender Integumentary: normal Extremities: no cyanosis, no edema, pink and warm Neurologic: other (unresponsive, rolls her eyes sporadically no posturing. Unchanged) Psychiatric: other CBC and BMP: 06/23/17 04:41 06/23/17 04:41 ABG, PT/INR, D-dimer: ABG POC ABG pH 7.461 (7.35-7.45) H 06/10/17 03:24 ABG pH 7.483 pH Units (7.350-7.450) H 06/17/17 03:51 POC ABG pCO2 36.6 (35-45) 06/10/17 03:24 ABG pCO2 28.7 mm Hg 06/17/17 03:51 POC ABG pO2 131 (80-105) H 06/10/17 03:24 ABG pO2 144.0 mm Hg (80.0-90.0) H 06/17/17 03:51 POC ABG HCO3 26.1 06/10/17 03:24 POC ABG Total CO2 27 06/10/17 03:24 POC ABG O2 Sat 99 06/10/17 03:24 ABG O2 Saturation 98.9 % (95.0-99.0) 06/17/17 03:51 PT/INR, D-dimer PT 12.4 Sec. (12.2-14.9) 06/09/17 04:18 INR 0.88 (0.87-1.13) 06/09/17 04:18 Abnormal lab findings: Abnormal Labs 05/30/17 05/30/17 05/30/17 07:48 07:48 08:32 WBC 11.5 H RBC Hgb Hct MCH 27 L MCHC RDW 16.3 H Plt Count Lymph % (Auto) [place] % (Auto) [place] # Seg Neutrophils % Seg Neuts % (Manual) Lymphocytes % (Manual) Monocytes % (Manual) Basophils % (Manual) Nucleated RBC % Seg Neutrophils # Seg Neutrophils # Man Lymphocytes # (Manual) Monocytes # (Manual) Eosinophils # (Manual) Basophils # (Manual) POC ABG pH ABG pH POC ABG pCO2 POC ABG pO2 ABG pO2 ABG Base Excess ABG Hemoglobin Oxyhemoglobin Sodium 133 L Potassium Chloride 89.9 L Carbon Dioxide BUN 27 H Creatinine 2.0 H Glucose 741 H* POC Glucose > 500 H Hemoglobin A1c Calcium Phosphorus Magnesium AST Alkaline Phosphatase Total Protein Albumin Urine WBC (Auto) Urine Creatinine Urine Total Protein Crossmatch 05/30/17 05/30/17 05/30/17 08:59 08:59 16:08 WBC 14.5 H RBC Hgb Hct MCH MCHC RDW 16.0 H Plt Count Lymph % (Auto) [place] % (Auto) [place] # Seg Neutrophils % Seg Neuts % (Manual) 95.0 H Lymphocytes % (Manual) 2.0 L Monocytes % (Manual) Basophils % (Manual) 2.0 H Nucleated RBC % Seg Neutrophils # Seg Neutrophils # Man 13.8 H Lymphocytes # (Manual) 0.3 L Monocytes # (Manual) Eosinophils # (Manual) Basophils # (Manual) 0.3 H POC ABG pH ABG pH POC ABG pCO2 POC ABG pO2 ABG pO2 ABG Base Excess ABG Hemoglobin Oxyhemoglobin Sodium 134 L 135 L Potassium 3.2 L Chloride 90.8 L 93.6 L Carbon Dioxide BUN 28 H 30 H Creatinine 2.0 H 2.1 H Glucose 742 H* 567 H* POC Glucose Hemoglobin A1c Calcium Phosphorus Magnesium AST Alkaline Phosphatase 246 H Total Protein 5.6 L Albumin 2.9 L Urine WBC (Auto) Urine Creatinine Urine Total Protein Crossmatch 05/30/17 05/30/17 05/30/17 16:35 17:55 18:59 WBC RBC Hgb Hct MCH MCHC RDW Plt Count Lymph % (Auto) [place] % (Auto) [place] # Seg Neutrophils % Seg Neuts % (Manual) Lymphocytes % (Manual) Monocytes % (Manual) Basophils % (Manual) Nucleated RBC % Seg Neutrophils # Seg Neutrophils # Man Lymphocytes # (Manual) Monocytes # (Manual) Eosinophils # (Manual) Basophils # (Manual) POC ABG pH 7.544 H ABG pH POC ABG pCO2 32.0 L POC ABG pO2 155 H ABG pO2 ABG Base Excess ABG Hemoglobin Oxyhemoglobin Sodium Potassium 3.1 L Chloride 93.9 L Carbon Dioxide BUN 30 H Creatinine 2.0 H Glucose 561 H* POC Glucose 497 H Hemoglobin A1c Calcium Phosphorus Magnesium AST Alkaline Phosphatase Total Protein Albumin Urine WBC (Auto) Urine Creatinine Urine Total Protein Crossmatch 05/30/17 05/30/17 05/30/17 19:31 19:31 21:38 WBC RBC Hgb Hct MCH MCHC RDW Plt Count Lymph % (Auto) [place] % (Auto) [place] # Seg Neutrophils % Seg Neuts % (Manual) Lymphocytes % (Manual) Monocytes % (Manual) Basophils % (Manual) Nucleated RBC % Seg Neutrophils # Seg Neutrophils # Man Lymphocytes # (Manual) Monocytes # (Manual) Eosinophils # (Manual) Basophils # (Manual) POC ABG pH ABG pH POC ABG pCO2 POC ABG pO2 ABG pO2 ABG Base Excess ABG Hemoglobin Oxyhemoglobin Sodium 135 L Potassium 2.9 L* Chloride 93.8 L 95.4 L Carbon Dioxide 20 L BUN 29 H 30 H Creatinine 2.2 H 2.3 H Glucose 478 H 364 H POC Glucose Hemoglobin A1c Calcium Phosphorus 2.20 L D Magnesium 1.40 L AST 42 H Alkaline Phosphatase 177 H Total Protein 5.4 L Albumin 2.4 L Urine WBC (Auto) Urine Creatinine Urine Total Protein Crossmatch 05/30/17 05/31/17 05/31/17 23:06 02:17 05:27 WBC RBC Hgb Hct MCH MCHC RDW Plt Count Lymph % (Auto) [place] % (Auto) [place] # Seg Neutrophils % Seg Neuts % (Manual) Lymphocytes % (Manual) Monocytes % (Manual) Basophils % (Manual) Nucleated RBC % Seg Neutrophils # Seg Neutrophils # Man Lymphocytes # (Manual) Monocytes # (Manual) Eosinophils # (Manual) Basophils # (Manual) POC ABG pH 7.489 H ABG pH POC ABG pCO2 POC ABG pO2 ABG pO2 ABG Base Excess ABG Hemoglobin Oxyhemoglobin Sodium Potassium 3.2 L 3.5 L Chloride Carbon Dioxide BUN 30 H 31 H Creatinine 2.5 H 2.4 H Glucose 288 H 246 H POC Glucose Hemoglobin A1c Calcium 8.3 L Phosphorus Magnesium AST Alkaline Phosphatase Total Protein Albumin Urine WBC (Auto) Urine Creatinine Urine Total Protein Crossmatch 05/31/17 05/31/17 05/31/17 05:45 05:45 05:45 WBC RBC Hgb Hct MCH MCHC RDW Plt Count Lymph % (Auto) [place] % (Auto) [place] # Seg Neutrophils % Seg Neuts % (Manual) Lymphocytes % (Manual) Monocytes % (Manual) Basophils % (Manual) Nucleated RBC % Seg Neutrophils # Seg Neutrophils # Man Lymphocytes # (Manual) Monocytes # (Manual) Eosinophils # (Manual) Basophils # (Manual) POC ABG pH ABG pH POC ABG pCO2 POC ABG pO2 ABG pO2 ABG Base Excess ABG Hemoglobin Oxyhemoglobin Sodium Potassium Chloride Carbon Dioxide BUN 32 H 30 H Creatinine 2.5 H 2.6 H Glucose 266 H 271 H POC Glucose Hemoglobin A1c 9.7 H Calcium 8.3 L 8.2 L Phosphorus Magnesium AST Alkaline Phosphatase 145 H Total Protein 4.7 L Albumin 1.8 L Urine WBC (Auto) Urine Creatinine Urine Total Protein Crossmatch 05/31/17 05/31/17 05/31/17 08:18 09:20 12:18 WBC RBC Hgb Hct MCH MCHC RDW Plt Count Lymph % (Auto) [place] % (Auto) [place] # Seg Neutrophils % Seg Neuts % (Manual) Lymphocytes % (Manual) Monocytes % (Manual) Basophils % (Manual) Nucleated RBC % Seg Neutrophils # Seg Neutrophils # Man Lymphocytes # (Manual) Monocytes # (Manual) Eosinophils # (Manual) Basophils # (Manual) POC ABG pH ABG pH POC ABG pCO2 POC ABG pO2 ABG pO2 ABG Base Excess ABG Hemoglobin Oxyhemoglobin Sodium Potassium Chloride Carbon Dioxide BUN Creatinine Glucose POC Glucose 300 H 254 H 170 H Hemoglobin A1c Calcium Phosphorus Magnesium AST Alkaline Phosphatase Total Protein Albumin Urine WBC (Auto) Urine Creatinine Urine Total Protein Crossmatch 05/31/17 05/31/17 05/31/17 14:09 14:17 14:27 WBC RBC Hgb Hct MCH MCHC RDW Plt Count Lymph % (Auto) [place] % (Auto) [place] # Seg Neutrophils % Seg Neuts % (Manual) Lymphocytes % (Manual) Monocytes % (Manual) Basophils % (Manual) Nucleated RBC % Seg Neutrophils # Seg Neutrophils # Man Lymphocytes # (Manual) Monocytes # (Manual) Eosinophils # (Manual) Basophils # (Manual) POC ABG pH ABG pH POC ABG pCO2 POC ABG pO2 ABG pO2 ABG Base Excess ABG Hemoglobin Oxyhemoglobin Sodium Potassium 3.4 L Chloride 107.1 H Carbon Dioxide BUN 30 H Creatinine 2.6 H Glucose 38 L* POC Glucose < 40 L 189 H Hemoglobin A1c Calcium 7.6 L Phosphorus Magnesium AST Alkaline Phosphatase Total Protein Albumin Urine WBC (Auto) Urine Creatinine Urine Total Protein Crossmatch 05/31/17 05/31/17 05/31/17 15:01 16:01 17:19 WBC RBC Hgb Hct MCH MCHC RDW Plt Count Lymph % (Auto) [place] % (Auto) [place] # Seg Neutrophils % Seg Neuts % (Manual) Lymphocytes % (Manual) Monocytes % (Manual) Basophils % (Manual) Nucleated RBC % Seg Neutrophils # Seg Neutrophils # Man Lymphocytes # (Manual) Monocytes # (Manual) Eosinophils # (Manual) Basophils # (Manual) POC ABG pH ABG pH POC ABG pCO2 POC ABG pO2 ABG pO2 ABG Base Excess ABG Hemoglobin Oxyhemoglobin Sodium Potassium Chloride Carbon Dioxide BUN Creatinine Glucose POC Glucose 130 H 165 H 131 H Hemoglobin A1c Calcium Phosphorus Magnesium AST Alkaline Phosphatase Total Protein Albumin Urine WBC (Auto) Urine Creatinine Urine Total Protein Crossmatch 05/31/17 05/31/17 05/31/17 18:46 19:54 20:36 WBC RBC Hgb Hct MCH MCHC RDW Plt Count Lymph % (Auto) [place] % (Auto) [place] # Seg Neutrophils % Seg Neuts % (Manual) Lymphocytes % (Manual) Monocytes % (Manual) Basophils % (Manual) Nucleated RBC % Seg Neutrophils # Seg Neutrophils # Man Lymphocytes # (Manual) Monocytes # (Manual) Eosinophils # (Manual) Basophils # (Manual) POC ABG pH ABG pH POC ABG pCO2 POC ABG pO2 ABG pO2 ABG Base Excess ABG Hemoglobin Oxyhemoglobin Sodium Potassium Chloride Carbon Dioxide BUN 29 H Creatinine 2.4 H Glucose 124 H POC Glucose 128 H 157 H Hemoglobin A1c Calcium 7.9 L Phosphorus Magnesium AST Alkaline Phosphatase Total Protein Albumin Urine WBC (Auto) Urine Creatinine Urine Total Protein Crossmatch 05/31/17 06/01/17 06/01/17 21:41 03:22 04:06 WBC RBC Hgb Hct MCH MCHC RDW Plt Count Lymph % (Auto) [place] % (Auto) [place] # Seg Neutrophils % Seg Neuts % (Manual) Lymphocytes % (Manual) Monocytes % (Manual) Basophils % (Manual) Nucleated RBC % Seg Neutrophils # Seg Neutrophils # Man Lymphocytes # (Manual) Monocytes # (Manual) Eosinophils # (Manual) Basophils # (Manual) POC ABG pH ABG pH POC ABG pCO2 POC ABG pO2 ABG pO2 ABG Base Excess ABG Hemoglobin Oxyhemoglobin Sodium Potassium Chloride Carbon Dioxide 19 L BUN 29 H Creatinine 2.6 H Glucose 205 H POC Glucose 158 H 251 H Hemoglobin A1c Calcium 7.8 L Phosphorus Magnesium AST Alkaline Phosphatase Total Protein Albumin Urine WBC (Auto) Urine Creatinine Urine Total Protein Crossmatch 06/01/17 06/01/17 06/01/17 04:30 09:15 09:59 WBC 19.7 H RBC Hgb 10.0 L Hct MCH 27 L MCHC RDW 17.1 H Plt Count Lymph % (Auto) [place] % (Auto) [place] # Seg Neutrophils % Seg Neuts % (Manual) Lymphocytes % (Manual) Monocytes % (Manual) Basophils % (Manual) Nucleated RBC % Seg Neutrophils # Seg Neutrophils # Man Lymphocytes # (Manual) Monocytes # (Manual) Eosinophils # (Manual) Basophils # (Manual) POC ABG pH 7.464 H ABG pH POC ABG pCO2 31.3 L POC ABG pO2 ABG pO2 ABG Base Excess ABG Hemoglobin Oxyhemoglobin Sodium Potassium Chloride Carbon Dioxide BUN Creatinine Glucose POC Glucose 330 H Hemoglobin A1c Calcium Phosphorus Magnesium AST Alkaline Phosphatase Total Protein Albumin Urine WBC (Auto) Urine Creatinine Urine Total Protein Crossmatch 06/01/17 06/01/17 06/01/17 11:36 12:25 13:43 WBC RBC Hgb Hct MCH MCHC RDW Plt Count Lymph % (Auto) [place] % (Auto) [place] # Seg Neutrophils % Seg Neuts % (Manual) Lymphocytes % (Manual) Monocytes % (Manual) Basophils % (Manual) Nucleated RBC % Seg Neutrophils # Seg Neutrophils # Man Lymphocytes # (Manual) Monocytes # (Manual) Eosinophils # (Manual) Basophils # (Manual) POC ABG pH ABG pH POC ABG pCO2 POC ABG pO2 ABG pO2 ABG Base Excess ABG Hemoglobin Oxyhemoglobin Sodium Potassium Chloride Carbon Dioxide BUN Creatinine Glucose POC Glucose 431 H 434 H 445 H Hemoglobin A1c Calcium Phosphorus Magnesium AST Alkaline Phosphatase Total Protein Albumin Urine WBC (Auto) Urine Creatinine Urine Total Protein Crossmatch 06/01/17 06/01/17 06/01/17 14:26 15:46 16:03 WBC RBC Hgb Hct MCH MCHC RDW Plt Count Lymph % (Auto) [place] % (Auto) [place] # Seg Neutrophils % Seg Neuts % (Manual) Lymphocytes % (Manual) Monocytes % (Manual) Basophils % (Manual) Nucleated RBC % Seg Neutrophils # Seg Neutrophils # Man Lymphocytes # (Manual) Monocytes # (Manual) Eosinophils # (Manual) Basophils # (Manual) POC ABG pH ABG pH POC ABG pCO2 POC ABG pO2 ABG pO2 ABG Base Excess ABG Hemoglobin Oxyhemoglobin Sodium Potassium Chloride Carbon Dioxide BUN Creatinine Glucose POC Glucose 310 H 292 H 244 H Hemoglobin A1c Calcium Phosphorus Magnesium AST Alkaline Phosphatase Total Protein Albumin Urine WBC (Auto) Urine Creatinine Urine Total Protein Crossmatch 06/01/17 06/01/17 06/01/17 16:59 17:49 19:05 WBC RBC Hgb Hct MCH MCHC RDW Plt Count Lymph % (Auto) [place] % (Auto) [place] # Seg Neutrophils % Seg Neuts % (Manual) Lymphocytes % (Manual) Monocytes % (Manual) Basophils % (Manual) Nucleated RBC % Seg Neutrophils # Seg Neutrophils # Man Lymphocytes # (Manual) Monocytes # (Manual) Eosinophils # (Manual) Basophils # (Manual) POC ABG pH ABG pH POC ABG pCO2 POC ABG pO2 ABG pO2 ABG Base Excess ABG Hemoglobin Oxyhemoglobin Sodium Potassium Chloride Carbon Dioxide BUN Creatinine Glucose POC Glucose 260 H 203 H 156 H Hemoglobin A1c Calcium Phosphorus Magnesium AST Alkaline Phosphatase Total Protein Albumin Urine WBC (Auto) Urine Creatinine Urine Total Protein Crossmatch 06/02/17 06/02/17 06/02/17 00:09 01:06 02:31 WBC RBC Hgb Hct MCH MCHC RDW Plt Count Lymph % (Auto) [place] % (Auto) [place] # Seg Neutrophils % Seg Neuts % (Manual) Lymphocytes % (Manual) Monocytes % (Manual) Basophils % (Manual) Nucleated RBC % Seg Neutrophils # Seg Neutrophils # Man Lymphocytes # (Manual) Monocytes # (Manual) Eosinophils # (Manual) Basophils # (Manual) POC ABG pH ABG pH POC ABG pCO2 POC ABG pO2 ABG pO2 ABG Base Excess ABG Hemoglobin Oxyhemoglobin Sodium Potassium Chloride Carbon Dioxide BUN Creatinine Glucose POC Glucose 137 H 146 H 182 H Hemoglobin A1c Calcium Phosphorus Magnesium AST Alkaline Phosphatase Total Protein Albumin Urine WBC (Auto) Urine Creatinine Urine Total Protein Crossmatch 06/02/17 06/02/17 06/02/17 04:03 04:24 04:24 WBC 21.0 H RBC 3.62 L Hgb Hct 29.6 L MCH MCHC RDW 16.5 H Plt Count Lymph % (Auto) [place] % (Auto) [place] # Seg Neutrophils % Seg Neuts % (Manual) 98.0 H Lymphocytes % (Manual) 1.0 L Monocytes % (Manual) Basophils % (Manual) Nucleated RBC % Seg Neutrophils # Seg Neutrophils # Man 20.6 H Lymphocytes # (Manual) 0.2 L Monocytes # (Manual) Eosinophils # (Manual) Basophils # (Manual) POC ABG pH ABG pH POC ABG pCO2 POC ABG pO2 ABG pO2 ABG Base Excess ABG Hemoglobin Oxyhemoglobin Sodium Potassium Chloride Carbon Dioxide 20 L BUN 36 H Creatinine 2.8 H Glucose 137 H POC Glucose 150 H Hemoglobin A1c Calcium 7.5 L Phosphorus 4.60 H Magnesium 1.50 L AST Alkaline Phosphatase 132 H Total Protein 4.1 L Albumin 1.7 L Urine WBC (Auto) Urine Creatinine Urine Total Protein Crossmatch 06/02/17 06/02/17 06/02/17 05:01 05:14 06:20 WBC RBC Hgb Hct MCH MCHC RDW Plt Count Lymph % (Auto) [place] % (Auto) [place] # Seg Neutrophils % Seg Neuts % (Manual) Lymphocytes % (Manual) Monocytes % (Manual) Basophils % (Manual) Nucleated RBC % Seg Neutrophils # Seg Neutrophils # Man Lymphocytes # (Manual) Monocytes # (Manual) Eosinophils # (Manual) Basophils # (Manual) POC ABG pH 7.517 H ABG pH POC ABG pCO2 28.4 L POC ABG pO2 67 L ABG pO2 ABG Base Excess ABG Hemoglobin Oxyhemoglobin Sodium Potassium Chloride Carbon Dioxide BUN Creatinine Glucose POC Glucose 137 H 163 H Hemoglobin A1c Calcium Phosphorus Magnesium AST Alkaline Phosphatase Total Protein Albumin Urine WBC (Auto) Urine Creatinine Urine Total Protein Crossmatch 06/02/17 06/02/17 06/02/17 07:43 09:40 10:18 WBC RBC Hgb Hct MCH MCHC RDW Plt Count Lymph % (Auto) [place] % (Auto) [place] # Seg Neutrophils % Seg Neuts % (Manual) Lymphocytes % (Manual) Monocytes % (Manual) Basophils % (Manual) Nucleated RBC % Seg Neutrophils # Seg Neutrophils # Man Lymphocytes # (Manual) Monocytes # (Manual) Eosinophils # (Manual) Basophils # (Manual) POC ABG pH ABG pH POC ABG pCO2 POC ABG pO2 ABG pO2 ABG Base Excess ABG Hemoglobin Oxyhemoglobin Sodium Potassium Chloride Carbon Dioxide BUN Creatinine Glucose POC Glucose 135 H 196 H Hemoglobin A1c Calcium Phosphorus Magnesium AST Alkaline Phosphatase Total Protein Albumin Urine WBC (Auto) Urine Creatinine Urine Total Protein < 4 L Crossmatch 06/02/17 06/02/17 06/02/17 10:33 11:55 17:39 WBC RBC Hgb Hct MCH MCHC RDW Plt Count Lymph % (Auto) [place] % (Auto) [place] # Seg Neutrophils % Seg Neuts % (Manual) Lymphocytes % (Manual) Monocytes % (Manual) Basophils % (Manual) Nucleated RBC % Seg Neutrophils # Seg Neutrophils # Man Lymphocytes # (Manual) Monocytes # (Manual) Eosinophils # (Manual) Basophils # (Manual) POC ABG pH ABG pH POC ABG pCO2 POC ABG pO2 ABG pO2 ABG Base Excess ABG Hemoglobin Oxyhemoglobin Sodium Potassium Chloride Carbon Dioxide BUN Creatinine Glucose POC Glucose 188 H 110 H 150 H Hemoglobin A1c Calcium Phosphorus Magnesium AST Alkaline Phosphatase Total Protein Albumin Urine WBC (Auto) Urine Creatinine Urine Total Protein Crossmatch 06/02/17 06/02/17 06/03/17 18:12 21:32 02:02 WBC RBC Hgb Hct MCH MCHC RDW Plt Count Lymph % (Auto) [place] % (Auto) [place] # Seg Neutrophils % Seg Neuts % (Manual) Lymphocytes % (Manual) Monocytes % (Manual) Basophils % (Manual) Nucleated RBC % Seg Neutrophils # Seg Neutrophils # Man Lymphocytes # (Manual) Monocytes # (Manual) Eosinophils # (Manual) Basophils # (Manual) POC ABG pH ABG pH POC ABG pCO2 POC ABG pO2 ABG pO2 ABG Base Excess ABG Hemoglobin Oxyhemoglobin Sodium Potassium Chloride Carbon Dioxide BUN Creatinine Glucose POC Glucose 131 H 143 H 191 H Hemoglobin A1c Calcium Phosphorus Magnesium AST Alkaline Phosphatase Total Protein Albumin Urine WBC (Auto) Urine Creatinine Urine Total Protein Crossmatch 06/03/17 06/03/17 06/03/17 04:14 04:14 05:06 WBC 21.1 H RBC Hgb Hct MCH 27 L MCHC RDW 15.9 H Plt Count 447 H Lymph % (Auto) [place] % (Auto) [place] # Seg Neutrophils % Seg Neuts % (Manual) 94.0 H Lymphocytes % (Manual) 3.0 L Monocytes % (Manual) Basophils % (Manual) Nucleated RBC % Seg Neutrophils # Seg Neutrophils # Man 19.8 H Lymphocytes # (Manual) 0.6 L Monocytes # (Manual) Eosinophils # (Manual) Basophils # (Manual) POC ABG pH ABG pH POC ABG pCO2 28.6 L POC ABG pO2 112 H ABG pO2 ABG Base Excess ABG Hemoglobin Oxyhemoglobin Sodium Potassium Chloride Carbon Dioxide 14 L BUN 45 H Creatinine 2.8 H Glucose 211 H POC Glucose Hemoglobin A1c Calcium 8.0 L Phosphorus Magnesium AST Alkaline Phosphatase Total Protein Albumin Urine WBC (Auto) Urine Creatinine Urine Total Protein Crossmatch 06/03/17 06/03/17 06/03/17 06:00 10:20 13:43 WBC RBC Hgb Hct MCH MCHC RDW Plt Count Lymph % (Auto) [place] % (Auto) [place] # Seg Neutrophils % Seg Neuts % (Manual) Lymphocytes % (Manual) Monocytes % (Manual) Basophils % (Manual) Nucleated RBC % Seg Neutrophils # Seg Neutrophils # Man Lymphocytes # (Manual) Monocytes # (Manual) Eosinophils # (Manual) Basophils # (Manual) POC ABG pH ABG pH POC ABG pCO2 POC ABG pO2 ABG pO2 ABG Base Excess ABG Hemoglobin Oxyhemoglobin Sodium Potassium Chloride Carbon Dioxide BUN Creatinine Glucose POC Glucose 224 H 226 H 296 H Hemoglobin A1c Calcium Phosphorus Magnesium AST Alkaline Phosphatase Total Protein Albumin Urine WBC (Auto) Urine Creatinine Urine Total Protein Crossmatch 06/03/17 06/03/17 06/03/17 17:38 19:23 20:45 WBC RBC Hgb Hct MCH MCHC RDW Plt Count Lymph % (Auto) [place] % (Auto) [place] # Seg Neutrophils % Seg Neuts % (Manual) Lymphocytes % (Manual) Monocytes % (Manual) Basophils % (Manual) Nucleated RBC % Seg Neutrophils # Seg Neutrophils # Man Lymphocytes # (Manual) Monocytes # (Manual) Eosinophils # (Manual) Basophils # (Manual) POC ABG pH ABG pH POC ABG pCO2 POC ABG pO2 ABG pO2 ABG Base Excess ABG Hemoglobin Oxyhemoglobin Sodium Potassium Chloride Carbon Dioxide BUN Creatinine Glucose POC Glucose 295 H 275 H 338 H Hemoglobin A1c Calcium Phosphorus Magnesium AST Alkaline Phosphatase Total Protein Albumin Urine WBC (Auto) Urine Creatinine Urine Total Protein Crossmatch 06/03/17 06/03/17 06/04/17 21:50 23:08 00:16 WBC RBC Hgb Hct MCH MCHC RDW Plt Count Lymph % (Auto) [place] % (Auto) [place] # Seg Neutrophils % Seg Neuts % (Manual) Lymphocytes % (Manual) Monocytes % (Manual) Basophils % (Manual) Nucleated RBC % Seg Neutrophils # Seg Neutrophils # Man Lymphocytes # (Manual) Monocytes # (Manual) Eosinophils # (Manual) Basophils # (Manual) POC ABG pH ABG pH POC ABG pCO2 POC ABG pO2 ABG pO2 ABG Base Excess ABG Hemoglobin Oxyhemoglobin Sodium Potassium Chloride Carbon Dioxide BUN Creatinine Glucose POC Glucose 223 H 214 H 226 H Hemoglobin A1c Calcium Phosphorus Magnesium AST Alkaline Phosphatase Total Protein Albumin Urine WBC (Auto) Urine Creatinine Urine Total Protein Crossmatch 06/04/17 06/04/17 06/04/17 01:05 02:07 03:27 WBC RBC Hgb Hct MCH MCHC RDW Plt Count Lymph % (Auto) [place] % (Auto) [place] # Seg Neutrophils % Seg Neuts % (Manual) Lymphocytes % (Manual) Monocytes % (Manual) Basophils % (Manual) Nucleated RBC % Seg Neutrophils # Seg Neutrophils # Man Lymphocytes # (Manual) Monocytes # (Manual) Eosinophils # (Manual) Basophils # (Manual) POC ABG pH ABG pH POC ABG pCO2 POC ABG pO2 ABG pO2 ABG Base Excess ABG Hemoglobin Oxyhemoglobin Sodium Potassium Chloride Carbon Dioxide BUN Creatinine Glucose POC Glucose 217 H 229 H 185 H Hemoglobin A1c Calcium Phosphorus Magnesium AST Alkaline Phosphatase Total Protein Albumin Urine WBC (Auto) Urine Creatinine Urine Total Protein Crossmatch 06/04/17 06/04/17 06/04/17 03:52 04:05 04:05 WBC 19.6 H RBC Hgb Hct MCH 26 L MCHC RDW 15.6 H Plt Count 564 H Lymph % (Auto) 7.3 L [place] % (Auto) 10.8 H [place] # 2.1 H Seg Neutrophils % 81.4 H Seg Neuts % (Manual) Lymphocytes % (Manual) Monocytes % (Manual) Basophils % (Manual) Nucleated RBC % Seg Neutrophils # 15.9 H Seg Neutrophils # Man Lymphocytes # (Manual) Monocytes # (Manual) Eosinophils # (Manual) Basophils # (Manual) POC ABG pH ABG pH POC ABG pCO2 POC ABG pO2 ABG pO2 ABG Base Excess ABG Hemoglobin Oxyhemoglobin Sodium Potassium Chloride Carbon Dioxide 17 L BUN 52 H Creatinine 2.5 H Glucose 163 H POC Glucose 181 H Hemoglobin A1c Calcium 7.9 L Phosphorus Magnesium AST Alkaline Phosphatase Total Protein Albumin Urine WBC (Auto) Urine Creatinine Urine Total Protein Crossmatch 06/04/17 06/04/17 06/04/17 04:56 05:39 06:12 WBC RBC Hgb Hct MCH MCHC RDW Plt Count Lymph % (Auto) [place] % (Auto) [place] # Seg Neutrophils % Seg Neuts % (Manual) Lymphocytes % (Manual) Monocytes % (Manual) Basophils % (Manual) Nucleated RBC % Seg Neutrophils # Seg Neutrophils # Man Lymphocytes # (Manual) Monocytes # (Manual) Eosinophils # (Manual) Basophils # (Manual) POC ABG pH 7.486 H ABG pH POC ABG pCO2 26.8 L POC ABG pO2 ABG pO2 ABG Base Excess ABG Hemoglobin Oxyhemoglobin Sodium Potassium Chloride Carbon Dioxide BUN Creatinine Glucose POC Glucose 208 H 225 H Hemoglobin A1c Calcium Phosphorus Magnesium AST Alkaline Phosphatase Total Protein Albumin Urine WBC (Auto) Urine Creatinine Urine Total Protein Crossmatch 06/04/17 06/04/17 06/04/17 07:07 08:06 09:15 WBC RBC Hgb Hct MCH MCHC RDW Plt Count Lymph % (Auto) [place] % (Auto) [place] # Seg Neutrophils % Seg Neuts % (Manual) Lymphocytes % (Manual) Monocytes % (Manual) Basophils % (Manual) Nucleated RBC % Seg Neutrophils # Seg Neutrophils # Man Lymphocytes # (Manual) Monocytes # (Manual) Eosinophils # (Manual) Basophils # (Manual) POC ABG pH ABG pH POC ABG pCO2 POC ABG pO2 ABG pO2 ABG Base Excess ABG Hemoglobin Oxyhemoglobin Sodium Potassium Chloride Carbon Dioxide BUN Creatinine Glucose POC Glucose 201 H 171 H 178 H Hemoglobin A1c Calcium Phosphorus Magnesium AST Alkaline Phosphatase Total Protein Albumin Urine WBC (Auto) Urine Creatinine Urine Total Protein Crossmatch 06/04/17 06/04/17 06/04/17 10:16 12:22 17:21 WBC RBC Hgb Hct MCH MCHC RDW Plt Count Lymph % (Auto) [place] % (Auto) [place] # Seg Neutrophils % Seg Neuts % (Manual) Lymphocytes % (Manual) Monocytes % (Manual) Basophils % (Manual) Nucleated RBC % Seg Neutrophils # Seg Neutrophils # Man Lymphocytes # (Manual) Monocytes # (Manual) Eosinophils # (Manual) Basophils # (Manual) POC ABG pH ABG pH POC ABG pCO2 POC ABG pO2 ABG pO2 ABG Base Excess ABG Hemoglobin Oxyhemoglobin Sodium Potassium Chloride Carbon Dioxide BUN Creatinine Glucose POC Glucose 191 H 188 H Hemoglobin A1c Calcium Phosphorus Magnesium AST Alkaline Phosphatase Total Protein Albumin Urine WBC (Auto) Urine Creatinine 78.7 H Urine Total Protein 197 H Crossmatch 06/04/17 06/04/1718 17:56 22:10 00:00 WBC RBC Hgb Hct MCH MCHC RDW Plt Count Lymph % (Auto) [place] % (Auto) [place] # Seg Neutrophils % Seg Neuts % (Manual) Lymphocytes % (Manual) Monocytes % (Manual) Basophils % (Manual) Nucleated RBC % Seg Neutrophils # Seg Neutrophils # Man Lymphocytes # (Manual) Monocytes # (Manual) Eosinophils # (Manual) Basophils # (Manual) POC ABG pH ABG pH POC ABG pCO2 POC ABG pO2 ABG pO2 ABG Base Excess ABG Hemoglobin Oxyhemoglobin Sodium Potassium Chloride Carbon Dioxide 17 L BUN 55 H Creatinine 2.3 H Glucose 300 H POC Glucose 266 H 337 H Hemoglobin A1c Calcium 7.4 L Phosphorus Magnesium AST Alkaline Phosphatase Total Protein Albumin Urine WBC (Auto) Urine Creatinine Urine Total Protein Crossmatch 06/05/17 06/05/17 06/05/17 03:26 04:11 05:13 WBC RBC Hgb Hct MCH MCHC RDW Plt Count Lymph % (Auto) [place] % (Auto) [place] # Seg Neutrophils % Seg Neuts % (Manual) Lymphocytes % (Manual) Monocytes % (Manual) Basophils % (Manual) Nucleated RBC % Seg Neutrophils # Seg Neutrophils # Man Lymphocytes # (Manual) Monocytes # (Manual) Eosinophils # (Manual) Basophils # (Manual) POC ABG pH 7.586 H ABG pH POC ABG pCO2 22.6 L POC ABG pO2 179 H ABG pO2 ABG Base Excess ABG Hemoglobin Oxyhemoglobin Sodium Potassium Chloride Carbon Dioxide 19 L BUN 55 H Creatinine 2.2 H Glucose 226 H POC Glucose 220 H Hemoglobin A1c Calcium 7.7 L Phosphorus Magnesium AST Alkaline Phosphatase Total Protein Albumin Urine WBC (Auto) Urine Creatinine Urine Total Protein Crossmatch 06/05/17 06/05/17 06/05/17 12:42 18:24 21:23 WBC RBC Hgb Hct MCH MCHC RDW Plt Count Lymph % (Auto) [place] % (Auto) [place] # Seg Neutrophils % Seg Neuts % (Manual) Lymphocytes % (Manual) Monocytes % (Manual) Basophils % (Manual) Nucleated RBC % Seg Neutrophils # Seg Neutrophils # Man Lymphocytes # (Manual) Monocytes # (Manual) Eosinophils # (Manual) Basophils # (Manual) POC ABG pH ABG pH POC ABG pCO2 POC ABG pO2 ABG pO2 ABG Base Excess ABG Hemoglobin Oxyhemoglobin Sodium Potassium Chloride Carbon Dioxide BUN Creatinine Glucose POC Glucose 168 H 121 H 166 H Hemoglobin A1c Calcium Phosphorus Magnesium AST Alkaline Phosphatase Total Protein Albumin Urine WBC (Auto) Urine Creatinine Urine Total Protein Crossmatch 06/06/17 06/06/17 06/06/17 00:14 04:11 06:19 WBC RBC Hgb Hct MCH MCHC RDW Plt Count Lymph % (Auto) [place] % (Auto) [place] # Seg Neutrophils % Seg Neuts % (Manual) Lymphocytes % (Manual) Monocytes % (Manual) Basophils % (Manual) Nucleated RBC % Seg Neutrophils # Seg Neutrophils # Man Lymphocytes # (Manual) Monocytes # (Manual) Eosinophils # (Manual) Basophils # (Manual) POC ABG pH ABG pH POC ABG pCO2 33.0 L POC ABG pO2 ABG pO2 ABG Base Excess ABG Hemoglobin Oxyhemoglobin Sodium Potassium Chloride Carbon Dioxide BUN Creatinine Glucose POC Glucose 179 H 180 H Hemoglobin A1c Calcium Phosphorus Magnesium AST Alkaline Phosphatase Total Protein Albumin Urine WBC (Auto) Urine Creatinine Urine Total Protein Crossmatch 06/06/17 06/06/17 06/06/17 12:19 18:38 20:01 WBC RBC Hgb Hct MCH MCHC RDW Plt Count Lymph % (Auto) [place] % (Auto) [place] # Seg Neutrophils % Seg Neuts % (Manual) Lymphocytes % (Manual) Monocytes % (Manual) Basophils % (Manual) Nucleated RBC % Seg Neutrophils # Seg Neutrophils # Man Lymphocytes # (Manual) Monocytes # (Manual) Eosinophils # (Manual) Basophils # (Manual) POC ABG pH ABG pH POC ABG pCO2 POC ABG pO2 ABG pO2 ABG Base Excess ABG Hemoglobin Oxyhemoglobin Sodium Potassium Chloride Carbon Dioxide BUN Creatinine Glucose POC Glucose 123 H 56 L 65 L Hemoglobin A1c Calcium Phosphorus Magnesium AST Alkaline Phosphatase Total Protein Albumin Urine WBC (Auto) Urine Creatinine Urine Total Protein Crossmatch 06/06/17 06/07/17 06/07/17 23:51 04:25 05:29 WBC RBC Hgb Hct MCH MCHC RDW Plt Count Lymph % (Auto) [place] % (Auto) [place] # Seg Neutrophils % Seg Neuts % (Manual) Lymphocytes % (Manual) Monocytes % (Manual) Basophils % (Manual) Nucleated RBC % Seg Neutrophils # Seg Neutrophils # Man Lymphocytes # (Manual) Monocytes # (Manual) Eosinophils # (Manual) Basophils # (Manual) POC ABG pH 7.470 H ABG pH POC ABG pCO2 33.6 L POC ABG pO2 ABG pO2 ABG Base Excess ABG Hemoglobin Oxyhemoglobin Sodium Potassium Chloride Carbon Dioxide BUN Creatinine Glucose POC Glucose 118 H 183 H Hemoglobin A1c Calcium Phosphorus Magnesium AST Alkaline Phosphatase Total Protein Albumin Urine WBC (Auto) Urine Creatinine Urine Total Protein Crossmatch 06/07/17 06/07/17 06/07/17 07:51 12:00 18:08 WBC RBC Hgb Hct MCH MCHC RDW Plt Count Lymph % (Auto) [place] % (Auto) [place] # Seg Neutrophils % Seg Neuts % (Manual) Lymphocytes % (Manual) Monocytes % (Manual) Basophils % (Manual) Nucleated RBC % Seg Neutrophils # Seg Neutrophils # Man Lymphocytes # (Manual) Monocytes # (Manual) Eosinophils # (Manual) Basophils # (Manual) POC ABG pH ABG pH POC ABG pCO2 POC ABG pO2 ABG pO2 ABG Base Excess ABG Hemoglobin Oxyhemoglobin Sodium 135 L Potassium Chloride Carbon Dioxide 21 L BUN 50 H Creatinine 1.8 H Glucose 232 H POC Glucose 361 H 249 H Hemoglobin A1c Calcium 8.0 L Phosphorus Magnesium AST Alkaline Phosphatase Total Protein Albumin Urine WBC (Auto) Urine Creatinine Urine Total Protein Crossmatch 06/07/17 06/08/17 06/08/17 23:53 05:25 11:50 WBC RBC Hgb Hct MCH MCHC RDW Plt Count Lymph % (Auto) [place] % (Auto) [place] # Seg Neutrophils % Seg Neuts % (Manual) Lymphocytes % (Manual) Monocytes % (Manual) Basophils % (Manual) Nucleated RBC % Seg Neutrophils # Seg Neutrophils # Man Lymphocytes # (Manual) Monocytes # (Manual) Eosinophils # (Manual) Basophils # (Manual) POC ABG pH ABG pH POC ABG pCO2 POC ABG pO2 ABG pO2 ABG Base Excess ABG Hemoglobin Oxyhemoglobin Sodium Potassium Chloride Carbon Dioxide BUN Creatinine Glucose POC Glucose 190 H 136 H 166 H Hemoglobin A1c Calcium Phosphorus Magnesium AST Alkaline Phosphatase Total Protein Albumin Urine WBC (Auto) Urine Creatinine Urine Total Protein Crossmatch 06/08/17 06/08/17 06/08/17 14:20 14:20 19:05 WBC 15.7 H RBC 3.49 L Hgb 9.4 L Hct 27.9 L MCH 27 L MCHC RDW 15.3 H Plt Count 590 H Lymph % (Auto) [place] % (Auto) [place] # Seg Neutrophils % Seg Neuts % (Manual) Lymphocytes % (Manual) Monocytes % (Manual) Basophils % (Manual) Nucleated RBC % Seg Neutrophils # Seg Neutrophils # Man Lymphocytes # (Manual) Monocytes # (Manual) Eosinophils # (Manual) Basophils # (Manual) POC ABG pH ABG pH POC ABG pCO2 POC ABG pO2 ABG pO2 ABG Base Excess ABG Hemoglobin Oxyhemoglobin Sodium Potassium Chloride Carbon Dioxide BUN 55 H Creatinine 1.7 H Glucose 117 H POC Glucose 135 H Hemoglobin A1c Calcium Phosphorus Magnesium AST Alkaline Phosphatase Total Protein Albumin Urine WBC (Auto) Urine Creatinine Urine Total Protein Crossmatch 06/08/17 06/08/17 06/09/17 21:52 23:55 04:18 WBC RBC Hgb Hct MCH MCHC RDW Plt Count Lymph % (Auto) [place] % (Auto) [place] # Seg Neutrophils % Seg Neuts % (Manual) Lymphocytes % (Manual) Monocytes % (Manual) Basophils % (Manual) Nucleated RBC % Seg Neutrophils # Seg Neutrophils # Man Lymphocytes # (Manual) Monocytes # (Manual) Eosinophils # (Manual) Basophils # (Manual) POC ABG pH ABG pH POC ABG pCO2 POC ABG pO2 ABG pO2 ABG Base Excess ABG Hemoglobin Oxyhemoglobin Sodium Potassium Chloride Carbon Dioxide BUN 51 H Creatinine 1.6 H Glucose POC Glucose 186 H 209 H Hemoglobin A1c Calcium Phosphorus Magnesium AST Alkaline Phosphatase Total Protein Albumin Urine WBC (Auto) Urine Creatinine Urine Total Protein Crossmatch 06/09/17 06/09/17 06/09/17 09:56 12:42 18:09 WBC RBC Hgb Hct MCH MCHC RDW Plt Count Lymph % (Auto) [place] % (Auto) [place] # Seg Neutrophils % Seg Neuts % (Manual) Lymphocytes % (Manual) Monocytes % (Manual) Basophils % (Manual) Nucleated RBC % Seg Neutrophils # Seg Neutrophils # Man Lymphocytes # (Manual) Monocytes # (Manual) Eosinophils # (Manual) Basophils # (Manual) POC ABG pH ABG pH POC ABG pCO2 POC ABG pO2 ABG pO2 ABG Base Excess ABG Hemoglobin Oxyhemoglobin Sodium Potassium Chloride Carbon Dioxide BUN Creatinine Glucose POC Glucose 63 L 142 H 166 H Hemoglobin A1c Calcium Phosphorus Magnesium AST Alkaline Phosphatase Total Protein Albumin Urine WBC (Auto) Urine Creatinine Urine Total Protein Crossmatch 06/09/17 06/10/17 06/10/17 23:39 03:24 04:28 WBC 15.1 H RBC 2.99 L Hgb 8.1 L Hct 23.6 L MCH 27 L MCHC 35 H RDW 15.4 H Plt Count 500 H Lymph % (Auto) [place] % (Auto) [place] # Seg Neutrophils % Seg Neuts % (Manual) Lymphocytes % (Manual) Monocytes % (Manual) Basophils % (Manual) Nucleated RBC % Seg Neutrophils # Seg Neutrophils # Man Lymphocytes # (Manual) Monocytes # (Manual) Eosinophils # (Manual) Basophils # (Manual) POC ABG pH 7.461 H ABG pH POC ABG pCO2 POC ABG pO2 131 H ABG pO2 ABG Base Excess ABG Hemoglobin Oxyhemoglobin Sodium Potassium Chloride Carbon Dioxide BUN Creatinine Glucose POC Glucose 284 H Hemoglobin A1c Calcium Phosphorus Magnesium AST Alkaline Phosphatase Total Protein Albumin Urine WBC (Auto) Urine Creatinine Urine Total Protein Crossmatch 06/10/17 06/10/17 06/10/17 04:28 05:10 12:41 WBC RBC Hgb Hct MCH MCHC RDW Plt Count Lymph % (Auto) [place] % (Auto) [place] # Seg Neutrophils % Seg Neuts % (Manual) Lymphocytes % (Manual) Monocytes % (Manual) Basophils % (Manual) Nucleated RBC % Seg Neutrophils # Seg Neutrophils # Man Lymphocytes # (Manual) Monocytes # (Manual) Eosinophils # (Manual) Basophils # (Manual) POC ABG pH ABG pH POC ABG pCO2 POC ABG pO2 ABG pO2 ABG Base Excess ABG Hemoglobin Oxyhemoglobin Sodium Potassium Chloride Carbon Dioxide BUN 53 H Creatinine 1.8 H Glucose 185 H POC Glucose 190 H 50 L Hemoglobin A1c Calcium Phosphorus Magnesium AST Alkaline Phosphatase Total Protein Albumin Urine WBC (Auto) Urine Creatinine Urine Total Protein Crossmatch 06/10/17 06/10/17 06/11/17 14:35 18:31 00:09 WBC RBC Hgb Hct MCH MCHC RDW Plt Count Lymph % (Auto) [place] % (Auto) [place] # Seg Neutrophils % Seg Neuts % (Manual) Lymphocytes % (Manual) Monocytes % (Manual) Basophils % (Manual) Nucleated RBC % Seg Neutrophils # Seg Neutrophils # Man Lymphocytes # (Manual) Monocytes # (Manual) Eosinophils # (Manual) Basophils # (Manual) POC ABG pH ABG pH POC ABG pCO2 POC ABG pO2 ABG pO2 ABG Base Excess ABG Hemoglobin Oxyhemoglobin Sodium Potassium Chloride Carbon Dioxide BUN Creatinine Glucose POC Glucose 58 L 55 L 126 H Hemoglobin A1c Calcium Phosphorus Magnesium AST Alkaline Phosphatase Total Protein Albumin Urine WBC (Auto) Urine Creatinine Urine Total Protein Crossmatch 06/11/17 06/11/17 06/11/17 05:32 06:01 06:03 WBC 15.6 H RBC 3.03 L Hgb 8.3 L Hct 24.0 L MCH MCHC 35 H RDW Plt Count 492 H Lymph % (Auto) [place] % (Auto) [place] # Seg Neutrophils % Seg Neuts % (Manual) Lymphocytes % (Manual) Monocytes % (Manual) Basophils % (Manual) Nucleated RBC % Seg Neutrophils # Seg Neutrophils # Man Lymphocytes # (Manual) Monocytes # (Manual) Eosinophils # (Manual) Basophils # (Manual) POC ABG pH ABG pH POC ABG pCO2 POC ABG pO2 ABG pO2 ABG Base Excess ABG Hemoglobin Oxyhemoglobin Sodium Potassium Chloride Carbon Dioxide BUN 55 H Creatinine 1.8 H Glucose 228 H POC Glucose 219 H Hemoglobin A1c Calcium Phosphorus Magnesium AST Alkaline Phosphatase Total Protein Albumin Urine WBC (Auto) Urine Creatinine Urine Total Protein Crossmatch 06/11/17 06/11/17 06/12/17 11:53 18:31 04:24 WBC 17.4 H RBC 2.90 L Hgb 8.0 L Hct 23.0 L MCH MCHC 35 H RDW Plt Count 460 H Lymph % (Auto) [place] % (Auto) [place] # Seg Neutrophils % Seg Neuts % (Manual) Lymphocytes % (Manual) Monocytes % (Manual) Basophils % (Manual) Nucleated RBC % Seg Neutrophils # Seg Neutrophils # Man Lymphocytes # (Manual) Monocytes # (Manual) Eosinophils # (Manual) Basophils # (Manual) POC ABG pH ABG pH POC ABG pCO2 POC ABG pO2 ABG pO2 ABG Base Excess ABG Hemoglobin Oxyhemoglobin Sodium Potassium Chloride Carbon Dioxide BUN Creatinine Glucose POC Glucose 220 H 254 H Hemoglobin A1c Calcium Phosphorus Magnesium AST Alkaline Phosphatase Total Protein Albumin Urine WBC (Auto) Urine Creatinine Urine Total Protein Crossmatch 06/12/17 06/12/17 06/12/17 05:37 05:40 06:00 WBC RBC Hgb Hct MCH MCHC RDW Plt Count Lymph % (Auto) [place] % (Auto) [place] # Seg Neutrophils % Seg Neuts % (Manual) Lymphocytes % (Manual) Monocytes % (Manual) Basophils % (Manual) Nucleated RBC % Seg Neutrophils # Seg Neutrophils # Man Lymphocytes # (Manual) Monocytes # (Manual) Eosinophils # (Manual) Basophils # (Manual) POC ABG pH ABG pH POC ABG pCO2 POC ABG pO2 ABG pO2 ABG Base Excess ABG Hemoglobin Oxyhemoglobin Sodium Potassium Chloride Carbon Dioxide BUN Creatinine Glucose 41 L POC Glucose < 40 L < 40 L Hemoglobin A1c Calcium Phosphorus Magnesium AST Alkaline Phosphatase Total Protein Albumin Urine WBC (Auto) Urine Creatinine Urine Total Protein Crossmatch 06/12/17 06/12/17 06/12/17 07:09 07:51 10:06 WBC RBC Hgb Hct MCH MCHC RDW Plt Count Lymph % (Auto) [place] % (Auto) [place] # Seg Neutrophils % Seg Neuts % (Manual) Lymphocytes % (Manual) Monocytes % (Manual) Basophils % (Manual) Nucleated RBC % Seg Neutrophils # Seg Neutrophils # Man Lymphocytes # (Manual) Monocytes # (Manual) Eosinophils # (Manual) Basophils # (Manual) POC ABG pH ABG pH POC ABG pCO2 POC ABG pO2 ABG pO2 ABG Base Excess ABG Hemoglobin Oxyhemoglobin Sodium Potassium Chloride Carbon Dioxide BUN Creatinine Glucose POC Glucose 64 L 42 L 61 L Hemoglobin A1c Calcium Phosphorus Magnesium AST Alkaline Phosphatase Total Protein Albumin Urine WBC (Auto) Urine Creatinine Urine Total Protein Crossmatch 06/12/17 06/12/17 06/12/17 11:16 14:04 18:03 WBC RBC Hgb Hct MCH MCHC RDW Plt Count Lymph % (Auto) [place] % (Auto) [place] # Seg Neutrophils % Seg Neuts % (Manual) Lymphocytes % (Manual) Monocytes % (Manual) Basophils % (Manual) Nucleated RBC % Seg Neutrophils # Seg Neutrophils # Man Lymphocytes # (Manual) Monocytes # (Manual) Eosinophils # (Manual) Basophils # (Manual) POC ABG pH ABG pH POC ABG pCO2 POC ABG pO2 ABG pO2 ABG Base Excess ABG Hemoglobin Oxyhemoglobin Sodium Potassium Chloride Carbon Dioxide BUN Creatinine Glucose POC Glucose 67 L 112 H 116 H Hemoglobin A1c Calcium Phosphorus Magnesium AST Alkaline Phosphatase Total Protein Albumin Urine WBC (Auto) Urine Creatinine Urine Total Protein Crossmatch 06/12/17 06/12/17 06/12/17 19:30 20:34 21:01 WBC RBC Hgb Hct MCH MCHC RDW Plt Count Lymph % (Auto) [place] % (Auto) [place] # Seg Neutrophils % Seg Neuts % (Manual) Lymphocytes % (Manual) Monocytes % (Manual) Basophils % (Manual) Nucleated RBC % Seg Neutrophils # Seg Neutrophils # Man Lymphocytes # (Manual) Monocytes # (Manual) Eosinophils # (Manual) Basophils # (Manual) POC ABG pH ABG pH POC ABG pCO2 POC ABG pO2 ABG pO2 ABG Base Excess ABG Hemoglobin Oxyhemoglobin Sodium Potassium Chloride Carbon Dioxide BUN Creatinine Glucose POC Glucose 156 H 172 H 174 H Hemoglobin A1c Calcium Phosphorus Magnesium AST Alkaline Phosphatase Total Protein Albumin Urine WBC (Auto) Urine Creatinine Urine Total Protein Crossmatch 06/12/17 06/12/17 06/13/17 22:00 23:23 00:27 WBC RBC Hgb Hct MCH MCHC RDW Plt Count Lymph % (Auto) [place] % (Auto) [place] # Seg Neutrophils % Seg Neuts % (Manual) Lymphocytes % (Manual) Monocytes % (Manual) Basophils % (Manual) Nucleated RBC % Seg Neutrophils # Seg Neutrophils # Man Lymphocytes # (Manual) Monocytes # (Manual) Eosinophils # (Manual) Basophils # (Manual) POC ABG pH ABG pH POC ABG pCO2 POC ABG pO2 ABG pO2 ABG Base Excess ABG Hemoglobin Oxyhemoglobin Sodium Potassium Chloride Carbon Dioxide BUN Creatinine Glucose POC Glucose 240 H 286 H 182 H Hemoglobin A1c Calcium Phosphorus Magnesium AST Alkaline Phosphatase Total Protein Albumin Urine WBC (Auto) Urine Creatinine Urine Total Protein Crossmatch 06/13/17 06/13/17 06/13/17 01:28 02:10 03:15 WBC RBC Hgb Hct MCH MCHC RDW Plt Count Lymph % (Auto) [place] % (Auto) [place] # Seg Neutrophils % Seg Neuts % (Manual) Lymphocytes % (Manual) Monocytes % (Manual) Basophils % (Manual) Nucleated RBC % Seg Neutrophils # Seg Neutrophils # Man Lymphocytes # (Manual) Monocytes # (Manual) Eosinophils # (Manual) Basophils # (Manual) POC ABG pH ABG pH POC ABG pCO2 POC ABG pO2 ABG pO2 ABG Base Excess ABG Hemoglobin Oxyhemoglobin Sodium Potassium Chloride Carbon Dioxide BUN Creatinine Glucose POC Glucose 304 H 277 H 318 H Hemoglobin A1c Calcium Phosphorus Magnesium AST Alkaline Phosphatase Total Protein Albumin Urine WBC (Auto) Urine Creatinine Urine Total Protein Crossmatch 06/13/17 06/13/17 06/13/17 04:15 05:10 05:38 WBC RBC Hgb Hct MCH MCHC RDW Plt Count Lymph % (Auto) [place] % (Auto) [place] # Seg Neutrophils % Seg Neuts % (Manual) Lymphocytes % (Manual) Monocytes % (Manual) Basophils % (Manual) Nucleated RBC % Seg Neutrophils # Seg Neutrophils # Man Lymphocytes # (Manual) Monocytes # (Manual) Eosinophils # (Manual) Basophils # (Manual) POC ABG pH ABG pH POC ABG pCO2 POC ABG pO2 ABG pO2 ABG Base Excess ABG Hemoglobin Oxyhemoglobin Sodium Potassium Chloride Carbon Dioxide BUN Creatinine Glucose POC Glucose 294 H 275 H 315 H Hemoglobin A1c Calcium Phosphorus Magnesium AST Alkaline Phosphatase Total Protein Albumin Urine WBC (Auto) Urine Creatinine Urine Total Protein Crossmatch 06/13/17 06/13/17 06/13/17 06:21 12:02 16:52 WBC RBC Hgb Hct MCH MCHC RDW Plt Count Lymph % (Auto) [place] % (Auto) [place] # Seg Neutrophils % Seg Neuts % (Manual) Lymphocytes % (Manual) Monocytes % (Manual) Basophils % (Manual) Nucleated RBC % Seg Neutrophils # Seg Neutrophils # Man Lymphocytes # (Manual) Monocytes # (Manual) Eosinophils # (Manual) Basophils # (Manual) POC ABG pH ABG pH POC ABG pCO2 POC ABG pO2 ABG pO2 ABG Base Excess ABG Hemoglobin Oxyhemoglobin Sodium Potassium Chloride Carbon Dioxide BUN Creatinine Glucose POC Glucose 350 H 333 H 343 H Hemoglobin A1c Calcium Phosphorus Magnesium AST Alkaline Phosphatase Total Protein Albumin Urine WBC (Auto) Urine Creatinine Urine Total Protein Crossmatch 06/14/17 06/14/17 06/14/17 00:01 04:18 04:18 WBC 29.6 H RBC 2.81 L Hgb 7.8 L Hct 23.2 L MCH MCHC RDW 15.3 H Plt Count Lymph % (Auto) [place] % (Auto) [place] # Seg Neutrophils % Seg Neuts % (Manual) Lymphocytes % (Manual) Monocytes % (Manual) Basophils % (Manual) Nucleated RBC % Seg Neutrophils # Seg Neutrophils # Man Lymphocytes # (Manual) Monocytes # (Manual) Eosinophils # (Manual) Basophils # (Manual) POC ABG pH ABG pH POC ABG pCO2 POC ABG pO2 ABG pO2 ABG Base Excess ABG Hemoglobin Oxyhemoglobin Sodium Potassium Chloride Carbon Dioxide 20 L BUN 75 H Creatinine 2.2 H Glucose 364 H POC Glucose 297 H Hemoglobin A1c Calcium Phosphorus Magnesium AST Alkaline Phosphatase Total Protein Albumin Urine WBC (Auto) Urine Creatinine Urine Total Protein Crossmatch 06/14/17 06/14/17 06/14/17 05:10 08:25 11:46 WBC RBC Hgb Hct MCH MCHC RDW Plt Count Lymph % (Auto) [place] % (Auto) [place] # Seg Neutrophils % Seg Neuts % (Manual) Lymphocytes % (Manual) Monocytes % (Manual) Basophils % (Manual) Nucleated RBC % Seg Neutrophils # Seg Neutrophils # Man Lymphocytes # (Manual) Monocytes # (Manual) Eosinophils # (Manual) Basophils # (Manual) POC ABG pH ABG pH POC ABG pCO2 POC ABG pO2 ABG pO2 ABG Base Excess ABG Hemoglobin Oxyhemoglobin Sodium Potassium Chloride Carbon Dioxide BUN Creatinine Glucose POC Glucose 350 H 322 H 391 H Hemoglobin A1c Calcium Phosphorus Magnesium AST Alkaline Phosphatase Total Protein Albumin Urine WBC (Auto) Urine Creatinine Urine Total Protein Crossmatch 06/14/17 06/15/17 06/15/17 18:04 00:16 11:20 WBC RBC Hgb Hct MCH MCHC RDW Plt Count Lymph % (Auto) [place] % (Auto) [place] # Seg Neutrophils % Seg Neuts % (Manual) Lymphocytes % (Manual) Monocytes % (Manual) Basophils % (Manual) Nucleated RBC % Seg Neutrophils # Seg Neutrophils # Man Lymphocytes # (Manual) Monocytes # (Manual) Eosinophils # (Manual) Basophils # (Manual) POC ABG pH ABG pH POC ABG pCO2 POC ABG pO2 ABG pO2 ABG Base Excess ABG Hemoglobin Oxyhemoglobin Sodium Potassium Chloride Carbon Dioxide 21 L BUN 88 H Creatinine 2.7 H Glucose 302 H POC Glucose 384 H 435 H Hemoglobin A1c Calcium Phosphorus Magnesium AST Alkaline Phosphatase Total Protein Albumin Urine WBC (Auto) Urine Creatinine Urine Total Protein Crossmatch 06/15/17 06/15/17 06/15/17 11:47 17:35 21:33 WBC RBC Hgb Hct MCH MCHC RDW Plt Count Lymph % (Auto) [place] % (Auto) [place] # Seg Neutrophils % Seg Neuts % (Manual) Lymphocytes % (Manual) Monocytes % (Manual) Basophils % (Manual) Nucleated RBC % Seg Neutrophils # Seg Neutrophils # Man Lymphocytes # (Manual) Monocytes # (Manual) Eosinophils # (Manual) Basophils # (Manual) POC ABG pH ABG pH POC ABG pCO2 POC ABG pO2 ABG pO2 ABG Base Excess ABG Hemoglobin Oxyhemoglobin Sodium Potassium Chloride Carbon Dioxide BUN Creatinine Glucose POC Glucose 311 H 428 H 346 H Hemoglobin A1c Calcium Phosphorus Magnesium AST Alkaline Phosphatase Total Protein Albumin Urine WBC (Auto) Urine Creatinine Urine Total Protein Crossmatch 06/15/17 06/15/17 06/16/17 23:23 Unknown 05:36 WBC RBC Hgb Hct MCH MCHC RDW Plt Count Lymph % (Auto) [place] % (Auto) [place] # Seg Neutrophils % Seg Neuts % (Manual) Lymphocytes % (Manual) Monocytes % (Manual) Basophils % (Manual) Nucleated RBC % Seg Neutrophils # Seg Neutrophils # Man Lymphocytes # (Manual) Monocytes # (Manual) Eosinophils # (Manual) Basophils # (Manual) POC ABG pH ABG pH POC ABG pCO2 POC ABG pO2 ABG pO2 ABG Base Excess ABG Hemoglobin 10.1 L Oxyhemoglobin 94.9 L Sodium Potassium Chloride Carbon Dioxide BUN Creatinine Glucose POC Glucose 351 H 303 H Hemoglobin A1c Calcium Phosphorus Magnesium AST Alkaline Phosphatase Total Protein Albumin Urine WBC (Auto) Urine Creatinine Urine Total Protein Crossmatch 06/16/17 06/16/17 06/16/17 06:33 06:33 08:26 WBC 25.8 H RBC 2.68 L Hgb 7.2 L Hct 21.6 L MCH 27 L MCHC RDW 15.9 H Plt Count Lymph % (Auto) [place] % (Auto) [place] # Seg Neutrophils % Seg Neuts % (Manual) Lymphocytes % (Manual) Monocytes % (Manual) Basophils % (Manual) Nucleated RBC % Seg Neutrophils # Seg Neutrophils # Man Lymphocytes # (Manual) Monocytes # (Manual) Eosinophils # (Manual) Basophils # (Manual) POC ABG pH ABG pH POC ABG pCO2 POC ABG pO2 ABG pO2 ABG Base Excess ABG Hemoglobin Oxyhemoglobin Sodium Potassium Chloride Carbon Dioxide 21 L BUN 94 H Creatinine 2.7 H Glucose 280 H POC Glucose Hemoglobin A1c Calcium Phosphorus Magnesium AST Alkaline Phosphatase Total Protein Albumin Urine WBC (Auto) > 182.0 H Urine Creatinine Urine Total Protein Crossmatch 06/16/17 06/16/17 06/16/17 08:26 11:45 18:28 WBC RBC Hgb Hct MCH MCHC RDW Plt Count Lymph % (Auto) [place] % (Auto) [place] # Seg Neutrophils % Seg Neuts % (Manual) Lymphocytes % (Manual) Monocytes % (Manual) Basophils % (Manual) Nucleated RBC % Seg Neutrophils # Seg Neutrophils # Man Lymphocytes # (Manual) Monocytes # (Manual) Eosinophils # (Manual) Basophils # (Manual) POC ABG pH ABG pH POC ABG pCO2 POC ABG pO2 ABG pO2 ABG Base Excess ABG Hemoglobin Oxyhemoglobin Sodium Potassium Chloride Carbon Dioxide BUN Creatinine Glucose POC Glucose 263 H 175 H Hemoglobin A1c Calcium Phosphorus Magnesium AST Alkaline Phosphatase Total Protein Albumin Urine WBC (Auto) Urine Creatinine 119.9 H Urine Total Protein 295 H Crossmatch 06/16/17 06/17/17 06/17/17 23:36 03:51 04:04 WBC 28.1 H RBC 2.61 L Hgb 7.1 L Hct 21.5 L MCH 27 L MCHC RDW 15.8 H Plt Count Lymph % (Auto) [place] % (Auto) [place] # Seg Neutrophils % Seg Neuts % (Manual) 90.5 H Lymphocytes % (Manual) 2.0 L Monocytes % (Manual) Basophils % (Manual) Nucleated RBC % Seg Neutrophils # Seg Neutrophils # Man 25.4 H Lymphocytes # (Manual) 0.6 L Monocytes # (Manual) 1.5 H Eosinophils # (Manual) Basophils # (Manual) POC ABG pH ABG pH 7.483 H POC ABG pCO2 POC ABG pO2 ABG pO2 144.0 H ABG Base Excess -2.1 L ABG Hemoglobin 6.5 L Oxyhemoglobin Sodium Potassium Chloride Carbon Dioxide BUN Creatinine Glucose POC Glucose 152 H Hemoglobin A1c Calcium Phosphorus Magnesium AST Alkaline Phosphatase Total Protein Albumin Urine WBC (Auto) Urine Creatinine Urine Total Protein Crossmatch 06/17/17 06/17/17 06/17/17 04:04 05:34 09:34 WBC RBC Hgb Hct MCH MCHC RDW Plt Count Lymph % (Auto) [place] % (Auto) [place] # Seg Neutrophils % Seg Neuts % (Manual) Lymphocytes % (Manual) Monocytes % (Manual) Basophils % (Manual) Nucleated RBC % Seg Neutrophils # Seg Neutrophils # Man Lymphocytes # (Manual) Monocytes # (Manual) Eosinophils # (Manual) Basophils # (Manual) POC ABG pH ABG pH POC ABG pCO2 POC ABG pO2 ABG pO2 ABG Base Excess ABG Hemoglobin Oxyhemoglobin Sodium 136 L Potassium Chloride Carbon Dioxide 20 L BUN 97 H Creatinine 2.7 H Glucose 151 H POC Glucose 203 H 243 H Hemoglobin A1c Calcium Phosphorus Magnesium AST Alkaline Phosphatase Total Protein Albumin Urine WBC (Auto) Urine Creatinine Urine Total Protein Crossmatch 06/17/17 06/17/17 06/17/17 12:36 17:24 21:36 WBC RBC Hgb Hct MCH MCHC RDW Plt Count Lymph % (Auto) [place] % (Auto) [place] # Seg Neutrophils % Seg Neuts % (Manual) Lymphocytes % (Manual) Monocytes % (Manual) Basophils % (Manual) Nucleated RBC % Seg Neutrophils # Seg Neutrophils # Man Lymphocytes # (Manual) Monocytes # (Manual) Eosinophils # (Manual) Basophils # (Manual) POC ABG pH ABG pH POC ABG pCO2 POC ABG pO2 ABG pO2 ABG Base Excess ABG Hemoglobin Oxyhemoglobin Sodium Potassium Chloride Carbon Dioxide BUN Creatinine Glucose POC Glucose 214 H 131 H 175 H Hemoglobin A1c Calcium Phosphorus Magnesium AST Alkaline Phosphatase Total Protein Albumin Urine WBC (Auto) Urine Creatinine Urine Total Protein Crossmatch 06/18/17 06/18/17 06/18/17 00:14 04:55 10:57 WBC RBC Hgb Hct MCH MCHC RDW Plt Count Lymph % (Auto) [place] % (Auto) [place] # Seg Neutrophils % Seg Neuts % (Manual) Lymphocytes % (Manual) Monocytes % (Manual) Basophils % (Manual) Nucleated RBC % Seg Neutrophils # Seg Neutrophils # Man Lymphocytes # (Manual) Monocytes # (Manual) Eosinophils # (Manual) Basophils # (Manual) POC ABG pH ABG pH POC ABG pCO2 POC ABG pO2 ABG pO2 ABG Base Excess ABG Hemoglobin Oxyhemoglobin Sodium 134 L Potassium Chloride Carbon Dioxide 19 L BUN 107 H Creatinine 2.7 H Glucose 196 H POC Glucose 171 H 161 H Hemoglobin A1c Calcium Phosphorus Magnesium AST Alkaline Phosphatase Total Protein Albumin Urine WBC (Auto) Urine Creatinine Urine Total Protein Crossmatch 06/18/17 06/18/17 06/19/17 17:31 23:25 04:24 WBC 33.8 H RBC 2.46 L Hgb 6.7 L Hct 20.0 L MCH 27 L MCHC RDW 15.4 H Plt Count Lymph % (Auto) [place] % (Auto) [place] # Seg Neutrophils % Seg Neuts % (Manual) 91.0 H Lymphocytes % (Manual) 2.0 L Monocytes % (Manual) Basophils % (Manual) Nucleated RBC % Seg Neutrophils # Seg Neutrophils # Man 30.8 H Lymphocytes # (Manual) 0.7 L Monocytes # (Manual) 2.0 H Eosinophils # (Manual) Basophils # (Manual) POC ABG pH ABG pH POC ABG pCO2 POC ABG pO2 ABG pO2 ABG Base Excess ABG Hemoglobin Oxyhemoglobin Sodium Potassium Chloride Carbon Dioxide BUN Creatinine Glucose POC Glucose 241 H 303 H Hemoglobin A1c Calcium Phosphorus Magnesium AST Alkaline Phosphatase Total Protein Albumin Urine WBC (Auto) Urine Creatinine Urine Total Protein Crossmatch 06/19/17 06/19/17 06/19/17 04:24 05:19 12:14 WBC RBC Hgb Hct MCH MCHC RDW Plt Count Lymph % (Auto) [place] % (Auto) [place] # Seg Neutrophils % Seg Neuts % (Manual) Lymphocytes % (Manual) Monocytes % (Manual) Basophils % (Manual) Nucleated RBC % Seg Neutrophils # Seg Neutrophils # Man Lymphocytes # (Manual) Monocytes # (Manual) Eosinophils # (Manual) Basophils # (Manual) POC ABG pH ABG pH POC ABG pCO2 POC ABG pO2 ABG pO2 ABG Base Excess ABG Hemoglobin Oxyhemoglobin Sodium 135 L Potassium Chloride 97.2 L Carbon Dioxide 20 L BUN 116 H Creatinine 3.1 H Glucose 220 H POC Glucose 238 H 224 H Hemoglobin A1c Calcium Phosphorus Magnesium AST Alkaline Phosphatase Total Protein Albumin Urine WBC (Auto) Urine Creatinine Urine Total Protein Crossmatch 06/19/17 06/19/17 06/20/17 16:45 16:50 04:34 WBC 36.4 H RBC 2.86 L Hgb 7.8 L Hct 24.4 L MCH 27 L MCHC RDW 16.2 H Plt Count 441 H Lymph % (Auto) [place] % (Auto) [place] # Seg Neutrophils % Seg Neuts % (Manual) 72.0 H Lymphocytes % (Manual) 9.0 L Monocytes % (Manual) 9.0 H Basophils % (Manual) Nucleated RBC % Seg Neutrophils # Seg Neutrophils # Man 26.2 H Lymphocytes # (Manual) Monocytes # (Manual) 3.3 H Eosinophils # (Manual) Basophils # (Manual) POC ABG pH ABG pH POC ABG pCO2 POC ABG pO2 ABG pO2 ABG Base Excess ABG Hemoglobin Oxyhemoglobin Sodium Potassium Chloride Carbon Dioxide BUN Creatinine Glucose POC Glucose 177 H Hemoglobin A1c Calcium Phosphorus Magnesium AST Alkaline Phosphatase Total Protein Albumin Urine WBC (Auto) Urine Creatinine Urine Total Protein Crossmatch See Detail 06/20/17 06/20/17 06/20/17 04:34 04:58 12:33 WBC RBC Hgb Hct MCH MCHC RDW Plt Count Lymph % (Auto) [place] % (Auto) [place] # Seg Neutrophils % Seg Neuts % (Manual) Lymphocytes % (Manual) Monocytes % (Manual) Basophils % (Manual) Nucleated RBC % Seg Neutrophils # Seg Neutrophils # Man Lymphocytes # (Manual) Monocytes # (Manual) Eosinophils # (Manual) Basophils # (Manual) POC ABG pH ABG pH POC ABG pCO2 POC ABG pO2 ABG pO2 ABG Base Excess ABG Hemoglobin Oxyhemoglobin Sodium Potassium Chloride Carbon Dioxide 18 L BUN 109 H Creatinine 2.8 H Glucose POC Glucose 108 H 130 H Hemoglobin A1c Calcium Phosphorus Magnesium AST Alkaline Phosphatase Total Protein Albumin Urine WBC (Auto) Urine Creatinine Urine Total Protein Crossmatch 06/20/17 06/20/17 06/21/17 17:06 23:33 05:23 WBC RBC Hgb Hct MCH MCHC RDW Plt Count Lymph % (Auto) [place] % (Auto) [place] # Seg Neutrophils % Seg Neuts % (Manual) Lymphocytes % (Manual) Monocytes % (Manual) Basophils % (Manual) Nucleated RBC % Seg Neutrophils # Seg Neutrophils # Man Lymphocytes # (Manual) Monocytes # (Manual) Eosinophils # (Manual) Basophils # (Manual) POC ABG pH ABG pH POC ABG pCO2 POC ABG pO2 ABG pO2 ABG Base Excess ABG Hemoglobin Oxyhemoglobin Sodium Potassium Chloride Carbon Dioxide 18 L BUN 105 H Creatinine 2.5 H Glucose 154 H POC Glucose 154 H 174 H Hemoglobin A1c Calcium Phosphorus Magnesium AST Alkaline Phosphatase Total Protein Albumin Urine WBC (Auto) Urine Creatinine Urine Total Protein Crossmatch 06/21/17 06/21/17 06/21/17 06:05 09:12 11:55 WBC RBC Hgb Hct MCH MCHC RDW Plt Count Lymph % (Auto) [place] % (Auto) [place] # Seg Neutrophils % Seg Neuts % (Manual) Lymphocytes % (Manual) Monocytes % (Manual) Basophils % (Manual) Nucleated RBC % Seg Neutrophils # Seg Neutrophils # Man Lymphocytes # (Manual) Monocytes # (Manual) Eosinophils # (Manual) Basophils # (Manual) POC ABG pH ABG pH POC ABG pCO2 POC ABG pO2 ABG pO2 ABG Base Excess ABG Hemoglobin Oxyhemoglobin Sodium Potassium Chloride Carbon Dioxide BUN Creatinine Glucose POC Glucose 168 H 183 H 174 H Hemoglobin A1c Calcium Phosphorus Magnesium AST Alkaline Phosphatase Total Protein Albumin Urine WBC (Auto) Urine Creatinine Urine Total Protein Crossmatch 06/21/17 06/21/17 06/21/17 16:52 17:10 23:45 WBC 28.0 H RBC 2.98 L Hgb 8.0 L Hct 26.1 L MCH 27 L MCHC RDW 16.6 H Plt Count Lymph % (Auto) [place] % (Auto) [place] # Seg Neutrophils % Seg Neuts % (Manual) Lymphocytes % (Manual) Monocytes % (Manual) Basophils % (Manual) Nucleated RBC % Seg Neutrophils # Seg Neutrophils # Man Lymphocytes # (Manual) Monocytes # (Manual) Eosinophils # (Manual) Basophils # (Manual) POC ABG pH ABG pH POC ABG pCO2 POC ABG pO2 ABG pO2 ABG Base Excess ABG Hemoglobin Oxyhemoglobin Sodium Potassium Chloride Carbon Dioxide BUN Creatinine Glucose POC Glucose 194 H 175 H Hemoglobin A1c Calcium Phosphorus Magnesium AST Alkaline Phosphatase Total Protein Albumin Urine WBC (Auto) Urine Creatinine Urine Total Protein Crossmatch 06/22/17 06/22/17 06/22/17 04:48 04:48 05:40 WBC 27.0 H RBC 2.88 L Hgb 7.9 L Hct 23.9 L MCH MCHC RDW 16.4 H Plt Count 493 H Lymph % (Auto) [place] % (Auto) [place] # Seg Neutrophils % Seg Neuts % (Manual) 91.0 H Lymphocytes % (Manual) 0 L Monocytes % (Manual) Basophils % (Manual) Nucleated RBC % 1.0 H Seg Neutrophils # Seg Neutrophils # Man 24.6 H Lymphocytes # (Manual) 0.0 L Monocytes # (Manual) 1.1 H Eosinophils # (Manual) 0.5 H Basophils # (Manual) POC ABG pH ABG pH POC ABG pCO2 POC ABG pO2 ABG pO2 ABG Base Excess ABG Hemoglobin Oxyhemoglobin Sodium Potassium Chloride Carbon Dioxide 19 L BUN 95 H Creatinine 2.3 H Glucose 159 H POC Glucose 172 H Hemoglobin A1c Calcium Phosphorus Magnesium AST Alkaline Phosphatase Total Protein Albumin Urine WBC (Auto) Urine Creatinine Urine Total Protein Crossmatch 06/22/17 06/22/17 06/23/17 12:09 22:08 04:41 WBC RBC Hgb Hct MCH MCHC RDW Plt Count Lymph % (Auto) [place] % (Auto) [place] # Seg Neutrophils % Seg Neuts % (Manual) Lymphocytes % (Manual) Monocytes % (Manual) Basophils % (Manual) Nucleated RBC % Seg Neutrophils # Seg Neutrophils # Man Lymphocytes # (Manual) Monocytes # (Manual) Eosinophils # (Manual) Basophils # (Manual) POC ABG pH ABG pH POC ABG pCO2 POC ABG pO2 ABG pO2 ABG Base Excess ABG Hemoglobin Oxyhemoglobin Sodium Potassium Chloride Carbon Dioxide BUN Creatinine Glucose POC Glucose 207 H 66 L Hemoglobin A1c Calcium Phosphorus Magnesium AST 41 H Alkaline Phosphatase 642 H Total Protein 5.5 L Albumin 2.0 L Urine WBC (Auto) Urine Creatinine Urine Total Protein Crossmatch 06/23/17 06/23/17 06/23/17 04:41 04:41 05:36 WBC 27.6 H RBC 2.89 L Hgb 7.8 L Hct 23.6 L MCH 27 L MCHC RDW 16.3 H Plt Count 499 H Lymph % (Auto) [place] % (Auto) [place] # Seg Neutrophils % Seg Neuts % (Manual) 95.0 H Lymphocytes % (Manual) 0 L Monocytes % (Manual) Basophils % (Manual) Nucleated RBC % Seg Neutrophils # Seg Neutrophils # Man 26.2 H Lymphocytes # (Manual) 0.0 L Monocytes # (Manual) Eosinophils # (Manual) Basophils # (Manual) POC ABG pH ABG pH POC ABG pCO2 POC ABG pO2 ABG pO2 ABG Base Excess ABG Hemoglobin Oxyhemoglobin Sodium Potassium Chloride Carbon Dioxide 19 L BUN 90 H Creatinine 2.1 H Glucose POC Glucose 109 H Hemoglobin A1c Calcium 8.3 L Phosphorus Magnesium AST Alkaline Phosphatase Total Protein Albumin Urine WBC (Auto) Urine Creatinine Urine Total Protein Crossmatch
[2017-06-23] MEDS ORDERED: PEPCID PO SCH (10:00)
[2017-06-23] MEDS: LOVENOX SUB-Q SCH (10:44)
[2017-06-23] MEDS: MAXIPIME 2 GM in NACL 0.9% 20 ML IV SCH ×2 (11:00→15:29)
[2017-06-23] MEDS: COREG PO SCH ×2 (15:29→22:54)
[2017-06-23] MEDS: ROBINUL FEEDTUBE SCH ×2 (15:29→20:24)
[2017-06-23] MEDS: LASIX PO SCH (15:29)
[2017-06-23] MEDS: KEPPRA PO SCH (15:29)
--- NOTE | 2017-06-23 18:56 | Progress Note ---
Assessment and Plan Assessment and plan: 36-year-old -[place] female was admitted to the floor for seizure episode, altered mental status, acute hypoxic respiratory failure, patient was intubated in the emergency department patient had PEA and resuscitated successfully. Acute hypoxic respiratory -Patient is on trach Acute encephalopathy - Hinges, this Seizure disorder -Patient is on Keppra Diabetes mellitus with hyperglycemia - Patient is on sliding scale insulin and long-acting insulin Malnutrition - Patient is currently on on OG-tube feeding Hypertension - Continue home medications DVT prophylaxis Disposition - Pending ICU bed - Continue ICU care. Patient needs LTAC placement History Interval history: Patient was seen and evaluated this morning, patient is on mechanical ventilation, comatose Hospitalist Physical - Physical exam Narrative exam: Patient is on PEG and trach. The patient appeared well nourished and normally developed. Vital signs as documented. Head exam is unremarkable. No scleral icterus . Neck is without jugular venous distension, thyromegaly, or carotid bruits. Lungs are clear to auscultation. Cardiac exam reveals regular rate and Rhythm. First and second heart sounds normal. No murmurs, rubs or gallops. Abdominal exam reveals normal bowel sounds, no masses, no organomegaly and no aortic enlargement. Extremities are nonedematous and both femoral and pedal pulses are normal. EDI PROGRAMMER: Comatose - Constitutional Vitals: Temp Pulse Resp BP Pulse Ox 98.6 F 92 H 25 H 143/80 100 06/23/17 17:00 06/23/17 18:00 06/23/17 18:00 06/23/17 18:00 06/23/17 18:42 General appearance: Present: other (unresponsive, on the ventilator) Results - Labs CBC & Chem 7: 06/23/17 04:41 06/23/17 04:41 Labs: Laboratory Last Values WBC 27.6 K/mm3 (4.5-11.0) H 06/23/17 04:41 RBC 2.89 M/mm3 (3.65-5.03) L 06/23/17 04:41 Hgb 7.8 gm/dl (10.1-14.3) L 06/23/17 04:41 Hct 23.6 % (30.3-42.9) L 06/23/17 04:41 MCV 82 fl (79-97) 06/23/17 04:41 MCH 27 pg (28-32) L 06/23/17 04:41 MCHC 33 % (30-34) 06/23/17 04:41 RDW 16.3 % (13.2-15.2) H 06/23/17 04:41 Plt Count 499 K/mm3 (140-440) H 06/23/17 04:41 Lymph % (Auto) 7.3 % (13.4-35.0) L 06/04/17 04:05 [place] % (Auto) 10.8 % (0.0-7.3) H 06/04/17 04:05 Eos % (Auto) 0.1 % (0.0-4.3) 06/04/17 04:05 Baso % (Auto) 0.4 % (0.0-1.8) 06/04/17 04:05 Lymph # 1.4 K/mm3 (1.2-5.4) 06/04/17 04:05 [place] # 2.1 K/mm3 (0.0-0.8) H 06/04/17 04:05 Eos # 0.0 K/mm3 (0.0-0.4) 06/04/17 04:05 Baso # 0.1 K/mm3 (0.0-0.1) 06/04/17 04:05 Add Manual Diff Complete 06/23/17 04:41 Total Counted 200 06/23/17 04:41 Seg Neutrophils % Manager Asset Management 06/20/17 04:34 Seg Neuts % (Manual) 95.0 % (40.0-70.0) H 06/23/17 04:41 Band Neutrophils % 0 % 06/23/17 04:41 Lymphocytes % (Manual) 0 % (13.4-35.0) L 06/23/17 04:41 Reactive Lymphs % (Man) 0 % 06/23/17 04:41 Monocytes % (Manual) 2.5 % (0.0-7.3) 06/23/17 04:41 Eosinophils % (Manual) 1.0 % (0.0-4.3) 06/23/17 04:41 Basophils % (Manual) 0 % (0.0-1.8) 06/23/17 04:41 Metamyelocytes % 0 % 06/23/17 04:41 Myelocytes % 1.5 % 06/23/17 04:41 Promyelocytes % 0 % 06/23/17 04:41 Blast Cells % 0 % 06/23/17 04:41 Nucleated RBC % Not Reportable 06/23/17 04:41 Seg Neutrophils # 15.9 K/mm3 (1.8-7.7) H 06/04/17 04:05 Seg Neutrophils # Man 26.2 K/mm3 (1.8-7.7) H 06/23/17 04:41 Band Neutrophils # 0.0 K/mm3 06/23/17 04:41 Lymphocytes # (Manual) 0.0 K/mm3 (1.2-5.4) L 06/23/17 04:41 Abs React Lymphs (Man) 0.0 K/mm3 06/23/17 04:41 Monocytes # (Manual) 0.7 K/mm3 (0.0-0.8) 06/23/17 04:41 Eosinophils # (Manual) 0.3 K/mm3 (0.0-0.4) 06/23/17 04:41 Basophils # (Manual) 0.0 K/mm3 (0.0-0.1) 06/23/17 04:41 Metamyelocytes # 0.0 K/mm3 06/23/17 04:41 Myelocytes # 0.4 K/mm3 06/23/17 04:41 Promyelocytes # 0.0 K/mm3 06/23/17 04:41 Blast Cells # 0.0 K/mm3 06/23/17 04:41 WBC Morphology Not Reportable 06/23/17 04:41 Hypersegmented Neuts Not Reportable 06/23/17 04:41 Hyposegmented Neuts Not Reportable 06/23/17 04:41 Hypogranular Neuts Not Reportable 06/23/17 04:41 Smudge Cells Not Reportable 06/23/17 04:41 Toxic Granulation Not Reportable 06/23/17 04:41 Toxic Vacuolation Not Reportable 06/23/17 04:41 Dohle Bodies Not Reportable 06/23/17 04:41 Pelger-Huet Anomaly Not Reportable 06/23/17 04:41 Don Rods Not Reportable 06/23/17 04:41 Platelet Estimate Appears increased 06/23/17 04:41 Clumped Platelets Not Reportable 06/23/17 04:41 Plt Clumps, EDTA Not Reportable 06/23/17 04:41 Large Platelets Not Reportable 06/23/17 04:41 Giant Platelets Not Reportable 06/23/17 04:41 Platelet Satelliting Not Reportable 06/23/17 04:41 Plt Morphology Comment Not Reportable 06/23/17 04:41 RBC Morphology Not Reportable 06/23/17 04:41 Dimorphic RBCs Not Reportable 06/23/17 04:41 Polychromasia Not Reportable 06/23/17 04:41 Hypochromasia Not Reportable 06/23/17 04:41 Poikilocytosis Not Reportable 06/23/17 04:41 Basophilic Stippling Few 06/22/17 04:48 Anisocytosis Not Reportable 06/23/17 04:41 Microcytosis Not Reportable 06/23/17 04:41 Macrocytosis Not Reportable 06/23/17 04:41 Spherocytes Not Reportable 06/23/17 04:41 Pappenheimer Bodies Not Reportable 06/23/17 04:41 Sickle Cells Not Reportable 06/23/17 04:41 Target Cells Not Reportable 06/23/17 04:41 Tear Drop Cells Not Reportable 06/23/17 04:41 Ovalocytes Not Reportable 06/23/17 04:41 Helmet Cells Not Reportable 06/23/17 04:41 [place] Bodies Not Reportable 06/23/17 04:41 [place] Rings Not Reportable 06/23/17 04:41 [place] Cells Not Reportable 06/23/17 04:41 Bite Cells Not Reportable 06/23/17 04:41 Crenated Cell Not Reportable 06/23/17 04:41 Elliptocytes Not Reportable 06/23/17 04:41 Acanthocytes (Spur) Not Reportable 06/23/17 04:41 Rouleaux Not Reportable 06/23/17 04:41 Hemoglobin C Crystals Not Reportable 06/23/17 04:41 Schistocytes Not Reportable 06/23/17 04:41 Malaria parasites Not Reportable 06/23/17 04:41 Fadi Bodies Not Reportable 06/23/17 04:41 Hem Pathologist Commnt No 06/23/17 04:41 PT 12.4 Sec. (12.2-14.9) 06/09/17 04:18 INR 0.88 (0.87-1.13) 06/09/17 04:18 POC ABG pH 7.461 (7.35-7.45) H 06/10/17 03:24 ABG pH 7.483 pH Units (7.350-7.450) H 06/17/17 03:51 POC ABG pCO2 36.6 (35-45) 06/10/17 03:24 ABG pCO2 28.7 mm Hg 06/17/17 03:51 POC ABG pO2 131 (80-105) H 06/10/17 03:24 ABG pO2 144.0 mm Hg (80.0-90.0) H 06/17/17 03:51 POC ABG HCO3 26.1 06/10/17 03:24 ABG HCO3 21.1 mmol/L (20.0-26.0) 06/17/17 03:51 POC ABG Total CO2 27 06/10/17 03:24 POC ABG O2 Sat 99 06/10/17 03:24 ABG O2 Saturation 98.9 % (95.0-99.0) 06/17/17 03:51 ABG O2 Content 9.1 (0.0-44) 06/17/17 03:51 POC ABG Base Excess 2 06/10/17 03:24 ABG Base Excess -2.1 mmol/L (-2.0-3.0) L 06/17/17 03:51 ABG Hemoglobin 6.5 gm/dl (12.0-16.0) L 06/17/17 03:51 ABG Carboxyhemoglobin 1.9 % (0.0-5.0) 06/17/17 03:51 ABG Methemoglobin 0.4 % (0.0-1.5) 06/17/17 03:51 VBG pH 7.327 (7.320-7.420) 05/30/17 10:43 Oxyhemoglobin 96.6 % (95.0-99.0) 06/17/17 03:51 FiO2 28 % 06/17/17 03:51 Sodium 141 mmol/L (137-145) 06/23/17 04:41 Potassium 4.5 mmol/L (3.6-5.0) 06/23/17 04:41 Chloride 104.5 mmol/L (98-107) 06/23/17 04:41 Carbon Dioxide 19 mmol/L (22-30) L 06/23/17 04:41 Anion Gap 22 mmol/L 06/23/17 04:41 BUN 90 mg/dL (7-17) H 06/23/17 04:41 Creatinine 2.1 mg/dL (0.7-1.2) H 06/23/17 04:41 Estimated GFR 32 ml/min 06/23/17 04:41 BUN/Creatinine Ratio 43 % 06/23/17 04:41 Glucose 91 mg/dL (65-100) 06/23/17 04:41 POC Glucose 147 (70-105) H 06/23/17 12:14 Hemoglobin A1c 9.7 % (4-6) H 05/31/17 05:45 Calcium 8.3 mg/dL (8.4-10.2) L 06/23/17 04:41 Phosphorus 4.10 mg/dL (2.5-4.5) 06/21/17 05:23 Magnesium 1.70 mg/dL (1.7-2.3) 06/07/17 07:51 Total Bilirubin 0.30 mg/dL (0.1-1.2) 06/23/17 04:41 Direct Bilirubin < 0.2 mg/dL (0-0.2) 06/23/17 04:41 Indirect Bilirubin 0.1 mg/dL 06/23/17 04:41 AST 41 units/L (5-40) H 06/23/17 04:41 ALT 40 units/L (7-56) 06/23/17 04:41 Alkaline Phosphatase 642 units/L (35-129) H 06/23/17 04:41 Total Protein 5.5 g/dL (6.3-8.2) L 06/23/17 04:41 Albumin 2.0 g/dL (3.9-5) L 06/23/17 04:41 Albumin/Globulin Ratio 0.6 % 06/23/17 04:41 Urine Color Yellow (Yellow) 06/16/17 08:26 Urine Turbidity Clear (Clear) 06/16/17 08:26 Urine pH 5.0 (5.0-7.0) 06/16/17 08:26 Ur Specific [place] 1.017 (1.003-1.030) 06/16/17 08:26 Urine Protein 100 mg/dl mg/dL (Negative) 06/16/17 08:26 Urine Glucose (UA) Neg mg/dL (Negative) 06/16/17 08:26 Urine Ketones Neg mg/dL (Negative) 06/16/17 08:26 Urine Blood Sm (Negative) 06/16/17 08:26 Urine Nitrite Neg (Negative) 06/16/17 08:26 Urine Bilirubin Neg (Negative) 06/16/17 08:26 Urine Urobilinogen < 2.0 mg/dL (<2.0) 06/16/17 08:26 Ur Leukocyte Esterase Lg (Negative) 06/16/17 08:26 Urine WBC (Auto) > 182.0 /HPF (0.0-6.0) H 06/16/17 08:26 Urine RBC (Auto) > 182.0 /HPF (0.0-6.0) 06/16/17 08:26 U Epithel Cells (Auto) 13.0 /HPF (0-13.0) 06/16/17 08:26 Urine Bacteria (Auto) 4+ /HPF (Negative) 06/16/17 08:26 Urine WBC Clumps 3+ /HPF 06/16/17 08:26 Ur Transition Epith Cell 3 /HPF 06/16/17 08:26 Urine Mucus 1+ /HPF 06/16/17 08:26 Ur Yeast w Hyphae 3+ /HPF 06/16/17 08:26 Urine Yeast (Budding) 3+ /HPF 06/16/17 08:26 Urine Eosinophils 5% (None Seen) 06/16/17 08:26 Urine Creatinine 119.9 mg/dL (0.1-20.0) H 06/16/17 08:26 Urine Sodium 39 mmol/L 06/16/17 08:26 Urine Total Protein 295 mg/dL (5-11.8) H 06/16/17 08:26 Random Vancomycin 19 ug/mL (0-40.0) 06/20/17 04:34 Urine Opiates Screen Presumptive negative 05/30/17 15:04 Urine Methadone Screen Presumptive negative 05/30/17 15:04 Ur Barbiturates Screen Presumptive negative 05/30/17 15:04 Levetiracetam 21.2 mcg/mL 05/30/17 08:59 Ur Phencyclidine Scrn Presumptive negative 05/30/17 15:04 Ur Amphetamines Screen Presumptive negative 05/30/17 15:04 U Benzodiazepines Scrn Presumptive negative 05/30/17 15:04 Urine Cocaine Screen Presumptive negative 05/30/17 15:04 U Marijuana (THC) Screen Presumptive positive 05/30/17 15:04 Drugs of Abuse Note Disclamer 05/30/17 15:04 Blood Type B NEGATIVE 06/19/17 16:50 Antibody Screen Negative 06/19/17 16:50 Crossmatch See Detail 06/19/17 16:50
[2017-06-23] MEDS: KEPPRA 750 MG in NACL 0.9% 100 ML IV SCH (22:04)
[2017-06-24] MEDS: HumaLOG SUB-Q SCH ×4 (00:09→19:45)
[2017-06-24] MEDS: APRESOLINE PO SCH ×2 (05:04→15:42)
[2017-06-24] MEDS: ISORDIL TITRADOSE PO SCH ×2 (05:04→15:41)
[2017-06-24] MEDS: FLAGYL 500 MG/100 ML 500 MG/100 ML BAG IV SCH ×2 (05:10→15:43)
[2017-06-24] MEDS: APRESOLINE IV PRN (05:11)
--- NOTE | 2017-06-24 07:47 | Progress Note ---
Assessment and Plan Assessment: 1) Acute cardiopulmonary arrest, status post CPR 05/30/17. 2) Acute respiratory failure. Intubated 05/30/17, s/p trach and G tube 06/11/17. 3) Pneumonia s/p bronch 06/17/17 with RUL atelectasis and partial mucous plugging RUL. BAL cx with K. pneumoniae and Serratia marcescens. -CXR 06/22 Stable. -Tracheal aspirate cx 06/22 Klebsiella pneumoniae 4) Generalized tonic-clonic seizures on admission. 5) Acute/worsening Leukocytosis. Multifactorial. Overall better. 6) Intermittent fever. Afebrile now. 7) Acute encephalopathy due to anoxic brain injury. 8) Malfunctioning G tube. 9) Diarrhea with rectal tube in place. 10) JERRI/ATN. 11) Elevated LFTs. 12) Acute sphenoid sinusitis and mild Left mastoiditis on MRI Brain 06/03/17. 13) Uncontrolled type 2 DM Recommendations: -Will f/u final tracheal aspirate culture. -Continue cefepime (D10). -Continue empiric flagyl (D3) since pt has had diarrhea. -IR consulted to change G tube to GJ tube. -Monitor CBC, CMP. -d/w [employer]. Will follow up with you. Gertrude Beasley MD Infectious Diseases Specialist [facility] ([facility]) m [phone] Subjective Date of service: 06/24/17 Principal diagnosis: coma Interval history: Afebrile. Feeds still on hold. Tolerating T-piece. Microbiology Blood cultures 05/31/17 negative 06/21/17 NGTD Sputum 05/30 normal tato 06/22 TA Klebsiella pneumoniae BAL culture 06/17/17 Klebsiella pneumonia and Serratia marcescens Antimicrobials Cefepime 06/15/17- Flagyl 06/22- Prior antimicrobials Zosyn 05/31-06/02/17 Vancomycin 05/31-06/02/17 Cefazolin 06/11/17 IV vancomycin 06/15/17- Objective - Exam Narrative Exam: General appearance: Pt in NAD, on T-piece, off sedation, not responsive. Eyes: anicteric sclerae, moist conjunctivae; pupils sluggish. HENT: Atraumatic. Trach in place. Neck: Supple. Lungs: CTA, with normal respiratory effort and no intercostal retractions CV: S1,S2. Abdomen: +BS. ND. G tube in place, induration around G-tube. Rectal: rectal tube in place. : blas catheter in place. Extremities: Hands edema. Skin: Normal temperature, turgor and texture; no rash, ulcers or subcutaneous nodules Psych: Not responsive. Neuro: Not responsive, off sedation. Lines: RUE midline. - Constitutional Vitals: Vital Signs Temp Pulse Resp BP Pulse Ox 98.7 F 100 H 31 H 141/70 96 06/24/17 03:45 06/24/17 06:00 06/24/17 06:00 06/24/17 06:00 06/24/17 06:00 Temperature -Last 24 Hours Temperature 98.7 F Temperature 99 F Temperature 98.6 F Temperature 98.6 F Temperature 97.7 F Temperature 98.9 F - Labs CBC & Chem 7: 06/23/17 04:41 06/23/17 04:41 Labs: Abnormal lab results 06/23/17 06/23/17 06/24/17 Range/Units 12:14 17:33 00:10 POC Glucose 147 H 194 H 196 H (70-105) 06/24/17 06/24/17 Range/Units 00:40 05:40 POC Glucose 168 H 180 H (70-105)
[2017-06-24] MEDS: ROBINUL FEEDTUBE SCH ×2 (08:00→15:43)
[2017-06-24] MEDS ORDERED: PEPCID IV SCH (10:00)
[2017-06-24] MEDS: LOVENOX SUB-Q SCH (10:56)
[2017-06-24] MEDS: COREG PO SCH (10:56)
[2017-06-24] MEDS: KEPPRA 750 MG in NACL 0.9% 100 ML IV SCH (10:57)
[2017-06-24] MEDS: MAXIPIME 2 GM in NACL 0.9% 20 ML IV SCH (10:57)
--- NOTE | 2017-06-24 11:11 | Progress Note ---
Assessment and Plan 36 y/o female with acute respiratory failure secondary to metabolic encephalopathy, thought to be from seizures, s/p cardiac arrest. 1. Continue T-piece, will likely discontinue vent after today. 2. CM has sent referral to LTACH. Awaiting insurance 3. PT/OT if possible 4. Blood sugar control 5. Per surgery, will need a g-j tube CCT 31 minutes. Subjective Date of service: 06/24/17 Principal diagnosis: coma Interval history: Tolerated T-piece all night. No acute events. IR has seen and evaluated for G- J tube placement. Objective Vital Signs - 12hr 06/24/17 06/24/17 06/24/17 00:00 00:02 00:11 Temperature 99 F Pulse Rate 95 H 92 H Pulse Rate [ 92 H From Monitor] Respiratory 26 H 22 22 Rate Blood Pressure 143/85 143/85 O2 Sat by Pulse 94 97 96 Oximetry O2 Sat by Pulse Oximetry [ Assessment] 06/24/17 06/24/17 06/24/17 00:15 01:00 02:00 Temperature Pulse Rate 94 H 97 H Pulse Rate [ From Monitor] Respiratory 26 H 17 Rate Blood Pressure 143/87 143/87 O2 Sat by Pulse 100 Oximetry O2 Sat by Pulse 99 Oximetry [ Assessment] 06/24/17 06/24/17 06/24/17 03:00 03:45 03:51 Temperature 98.7 F Pulse Rate 94 H Pulse Rate [ From Monitor] Respiratory 24 29 H Rate Blood Pressure 148/88 O2 Sat by Pulse 100 99 Oximetry O2 Sat by Pulse Oximetry [ Assessment] 06/24/17 06/24/17 06/24/17 04:00 05:00 05:11 Temperature Pulse Rate 94 H 98 H 97 H Pulse Rate [ From Monitor] Respiratory 24 28 H Rate Blood Pressure 154/77 162/85 162/85 O2 Sat by Pulse 99 94 Oximetry O2 Sat by Pulse Oximetry [ Assessment] 06/24/17 06/24/17 06/24/17 06:00 07:00 08:00 Temperature 97.8 F Pulse Rate 100 H 97 H 100 H Pulse Rate [ From Monitor] Respiratory 31 H 25 H 30 H Rate Blood Pressure 141/70 139/72 138/78 O2 Sat by Pulse 96 95 95 Oximetry O2 Sat by Pulse 97 Oximetry [ Assessment] 06/24/17 06/24/17 06/24/17 09:00 09:23 10:00 Temperature Pulse Rate 96 H 96 H Pulse Rate [ From Monitor] Respiratory 29 H 30 H Rate Blood Pressure 143/75 146/79 O2 Sat by Pulse 94 96 94 Oximetry O2 Sat by Pulse Oximetry [ Assessment] 06/24/17 10:56 Temperature Pulse Rate 92 H Pulse Rate [ From Monitor] Respiratory Rate Blood Pressure 146/79 O2 Sat by Pulse Oximetry O2 Sat by Pulse Oximetry [ Assessment] Constitutional: other (mild breathing difficulty) Eyes: non-icteric ENT: oropharynx moist, other (trach in position) Neck: supple, no JVD Effort: normal Ascultation: Right: rales, rhonchi (mild), Bilateral: clear, diminished breath sounds, other (coarse BS bilaterally) Percussion: Bilateral: not dull Cardiovascular: regular rate and rhythm Gastrointestinal: normoactive bowel sounds, soft, non-tender Integumentary: normal Extremities: no cyanosis, no edema, pink and warm Neurologic: other (unresponsive, rolls her eyes sporadically no posturing. Unchanged) Psychiatric: other CBC and BMP: 06/23/17 04:41 06/23/17 04:41 ABG, PT/INR, D-dimer: ABG POC ABG pH 7.461 (7.35-7.45) H 06/10/17 03:24 ABG pH 7.483 pH Units (7.350-7.450) H 06/17/17 03:51 POC ABG pCO2 36.6 (35-45) 06/10/17 03:24 ABG pCO2 28.7 mm Hg 06/17/17 03:51 POC ABG pO2 131 (80-105) H 06/10/17 03:24 ABG pO2 144.0 mm Hg (80.0-90.0) H 06/17/17 03:51 POC ABG HCO3 26.1 06/10/17 03:24 POC ABG Total CO2 27 06/10/17 03:24 POC ABG O2 Sat 99 06/10/17 03:24 ABG O2 Saturation 98.9 % (95.0-99.0) 06/17/17 03:51 PT/INR, D-dimer PT 12.4 Sec. (12.2-14.9) 06/09/17 04:18 INR 0.88 (0.87-1.13) 06/09/17 04:18 Abnormal lab findings: Abnormal Labs 05/30/17 05/30/17 05/30/17 07:48 07:48 08:32 WBC 11.5 H RBC Hgb Hct MCH 27 L MCHC RDW 16.3 H Plt Count Lymph % (Auto) [place] % (Auto) [place] # Seg Neutrophils % Seg Neuts % (Manual) Lymphocytes % (Manual) Monocytes % (Manual) Basophils % (Manual) Nucleated RBC % Seg Neutrophils # Seg Neutrophils # Man Lymphocytes # (Manual) Monocytes # (Manual) Eosinophils # (Manual) Basophils # (Manual) POC ABG pH ABG pH POC ABG pCO2 POC ABG pO2 ABG pO2 ABG Base Excess ABG Hemoglobin Oxyhemoglobin Sodium 133 L Potassium Chloride 89.9 L Carbon Dioxide BUN 27 H Creatinine 2.0 H Glucose 741 H* POC Glucose > 500 H Hemoglobin A1c Calcium Phosphorus Magnesium AST Alkaline Phosphatase Total Protein Albumin Urine WBC (Auto) Urine Creatinine Urine Total Protein Crossmatch 05/30/17 05/30/17 05/30/17 08:59 08:59 16:08 WBC 14.5 H RBC Hgb Hct MCH MCHC RDW 16.0 H Plt Count Lymph % (Auto) [place] % (Auto) [place] # Seg Neutrophils % Seg Neuts % (Manual) 95.0 H Lymphocytes % (Manual) 2.0 L Monocytes % (Manual) Basophils % (Manual) 2.0 H Nucleated RBC % Seg Neutrophils # Seg Neutrophils # Man 13.8 H Lymphocytes # (Manual) 0.3 L Monocytes # (Manual) Eosinophils # (Manual) Basophils # (Manual) 0.3 H POC ABG pH ABG pH POC ABG pCO2 POC ABG pO2 ABG pO2 ABG Base Excess ABG Hemoglobin Oxyhemoglobin Sodium 134 L 135 L Potassium 3.2 L Chloride 90.8 L 93.6 L Carbon Dioxide BUN 28 H 30 H Creatinine 2.0 H 2.1 H Glucose 742 H* 567 H* POC Glucose Hemoglobin A1c Calcium Phosphorus Magnesium AST Alkaline Phosphatase 246 H Total Protein 5.6 L Albumin 2.9 L Urine WBC (Auto) Urine Creatinine Urine Total Protein Crossmatch 05/30/17 05/30/17 05/30/17 16:35 17:55 18:59 WBC RBC Hgb Hct MCH MCHC RDW Plt Count Lymph % (Auto) [place] % (Auto) [place] # Seg Neutrophils % Seg Neuts % (Manual) Lymphocytes % (Manual) Monocytes % (Manual) Basophils % (Manual) Nucleated RBC % Seg Neutrophils # Seg Neutrophils # Man Lymphocytes # (Manual) Monocytes # (Manual) Eosinophils # (Manual) Basophils # (Manual) POC ABG pH 7.544 H ABG pH POC ABG pCO2 32.0 L POC ABG pO2 155 H ABG pO2 ABG Base Excess ABG Hemoglobin Oxyhemoglobin Sodium Potassium 3.1 L Chloride 93.9 L Carbon Dioxide BUN 30 H Creatinine 2.0 H Glucose 561 H* POC Glucose 497 H Hemoglobin A1c Calcium Phosphorus Magnesium AST Alkaline Phosphatase Total Protein Albumin Urine WBC (Auto) Urine Creatinine Urine Total Protein Crossmatch 05/30/17 05/30/17 05/30/17 19:31 19:31 21:38 WBC RBC Hgb Hct MCH MCHC RDW Plt Count Lymph % (Auto) [place] % (Auto) [place] # Seg Neutrophils % Seg Neuts % (Manual) Lymphocytes % (Manual) Monocytes % (Manual) Basophils % (Manual) Nucleated RBC % Seg Neutrophils # Seg Neutrophils # Man Lymphocytes # (Manual) Monocytes # (Manual) Eosinophils # (Manual) Basophils # (Manual) POC ABG pH ABG pH POC ABG pCO2 POC ABG pO2 ABG pO2 ABG Base Excess ABG Hemoglobin Oxyhemoglobin Sodium 135 L Potassium 2.9 L* Chloride 93.8 L 95.4 L Carbon Dioxide 20 L BUN 29 H 30 H Creatinine 2.2 H 2.3 H Glucose 478 H 364 H POC Glucose Hemoglobin A1c Calcium Phosphorus 2.20 L D Magnesium 1.40 L AST 42 H Alkaline Phosphatase 177 H Total Protein 5.4 L Albumin 2.4 L Urine WBC (Auto) Urine Creatinine Urine Total Protein Crossmatch 05/30/17 05/31/17 05/31/17 23:06 02:17 05:27 WBC RBC Hgb Hct MCH MCHC RDW Plt Count Lymph % (Auto) [place] % (Auto) [place] # Seg Neutrophils % Seg Neuts % (Manual) Lymphocytes % (Manual) Monocytes % (Manual) Basophils % (Manual) Nucleated RBC % Seg Neutrophils # Seg Neutrophils # Man Lymphocytes # (Manual) Monocytes # (Manual) Eosinophils # (Manual) Basophils # (Manual) POC ABG pH 7.489 H ABG pH POC ABG pCO2 POC ABG pO2 ABG pO2 ABG Base Excess ABG Hemoglobin Oxyhemoglobin Sodium Potassium 3.2 L 3.5 L Chloride Carbon Dioxide BUN 30 H 31 H Creatinine 2.5 H 2.4 H Glucose 288 H 246 H POC Glucose Hemoglobin A1c Calcium 8.3 L Phosphorus Magnesium AST Alkaline Phosphatase Total Protein Albumin Urine WBC (Auto) Urine Creatinine Urine Total Protein Crossmatch 05/31/17 05/31/17 05/31/17 05:45 05:45 05:45 WBC RBC Hgb Hct MCH MCHC RDW Plt Count Lymph % (Auto) [place] % (Auto) [place] # Seg Neutrophils % Seg Neuts % (Manual) Lymphocytes % (Manual) Monocytes % (Manual) Basophils % (Manual) Nucleated RBC % Seg Neutrophils # Seg Neutrophils # Man Lymphocytes # (Manual) Monocytes # (Manual) Eosinophils # (Manual) Basophils # (Manual) POC ABG pH ABG pH POC ABG pCO2 POC ABG pO2 ABG pO2 ABG Base Excess ABG Hemoglobin Oxyhemoglobin Sodium Potassium Chloride Carbon Dioxide BUN 32 H 30 H Creatinine 2.5 H 2.6 H Glucose 266 H 271 H POC Glucose Hemoglobin A1c 9.7 H Calcium 8.3 L 8.2 L Phosphorus Magnesium AST Alkaline Phosphatase 145 H Total Protein 4.7 L Albumin 1.8 L Urine WBC (Auto) Urine Creatinine Urine Total Protein Crossmatch 05/31/17 05/31/17 05/31/17 08:18 09:20 12:18 WBC RBC Hgb Hct MCH MCHC RDW Plt Count Lymph % (Auto) [place] % (Auto) [place] # Seg Neutrophils % Seg Neuts % (Manual) Lymphocytes % (Manual) Monocytes % (Manual) Basophils % (Manual) Nucleated RBC % Seg Neutrophils # Seg Neutrophils # Man Lymphocytes # (Manual) Monocytes # (Manual) Eosinophils # (Manual) Basophils # (Manual) POC ABG pH ABG pH POC ABG pCO2 POC ABG pO2 ABG pO2 ABG Base Excess ABG Hemoglobin Oxyhemoglobin Sodium Potassium Chloride Carbon Dioxide BUN Creatinine Glucose POC Glucose 300 H 254 H 170 H Hemoglobin A1c Calcium Phosphorus Magnesium AST Alkaline Phosphatase Total Protein Albumin Urine WBC (Auto) Urine Creatinine Urine Total Protein Crossmatch 05/31/17 05/31/17 05/31/17 14:09 14:17 14:27 WBC RBC Hgb Hct MCH MCHC RDW Plt Count Lymph % (Auto) [place] % (Auto) [place] # Seg Neutrophils % Seg Neuts % (Manual) Lymphocytes % (Manual) Monocytes % (Manual) Basophils % (Manual) Nucleated RBC % Seg Neutrophils # Seg Neutrophils # Man Lymphocytes # (Manual) Monocytes # (Manual) Eosinophils # (Manual) Basophils # (Manual) POC ABG pH ABG pH POC ABG pCO2 POC ABG pO2 ABG pO2 ABG Base Excess ABG Hemoglobin Oxyhemoglobin Sodium Potassium 3.4 L Chloride 107.1 H Carbon Dioxide BUN 30 H Creatinine 2.6 H Glucose 38 L* POC Glucose < 40 L 189 H Hemoglobin A1c Calcium 7.6 L Phosphorus Magnesium AST Alkaline Phosphatase Total Protein Albumin Urine WBC (Auto) Urine Creatinine Urine Total Protein Crossmatch 05/31/17 05/31/17 05/31/17 15:01 16:01 17:19 WBC RBC Hgb Hct MCH MCHC RDW Plt Count Lymph % (Auto) [place] % (Auto) [place] # Seg Neutrophils % Seg Neuts % (Manual) Lymphocytes % (Manual) Monocytes % (Manual) Basophils % (Manual) Nucleated RBC % Seg Neutrophils # Seg Neutrophils # Man Lymphocytes # (Manual) Monocytes # (Manual) Eosinophils # (Manual) Basophils # (Manual) POC ABG pH ABG pH POC ABG pCO2 POC ABG pO2 ABG pO2 ABG Base Excess ABG Hemoglobin Oxyhemoglobin Sodium Potassium Chloride Carbon Dioxide BUN Creatinine Glucose POC Glucose 130 H 165 H 131 H Hemoglobin A1c Calcium Phosphorus Magnesium AST Alkaline Phosphatase Total Protein Albumin Urine WBC (Auto) Urine Creatinine Urine Total Protein Crossmatch 05/31/17 05/31/17 05/31/17 18:46 19:54 20:36 WBC RBC Hgb Hct MCH MCHC RDW Plt Count Lymph % (Auto) [place] % (Auto) [place] # Seg Neutrophils % Seg Neuts % (Manual) Lymphocytes % (Manual) Monocytes % (Manual) Basophils % (Manual) Nucleated RBC % Seg Neutrophils # Seg Neutrophils # Man Lymphocytes # (Manual) Monocytes # (Manual) Eosinophils # (Manual) Basophils # (Manual) POC ABG pH ABG pH POC ABG pCO2 POC ABG pO2 ABG pO2 ABG Base Excess ABG Hemoglobin Oxyhemoglobin Sodium Potassium Chloride Carbon Dioxide BUN 29 H Creatinine 2.4 H Glucose 124 H POC Glucose 128 H 157 H Hemoglobin A1c Calcium 7.9 L Phosphorus Magnesium AST Alkaline Phosphatase Total Protein Albumin Urine WBC (Auto) Urine Creatinine Urine Total Protein Crossmatch 05/31/17 06/01/17 06/01/17 21:41 03:22 04:06 WBC RBC Hgb Hct MCH MCHC RDW Plt Count Lymph % (Auto) [place] % (Auto) [place] # Seg Neutrophils % Seg Neuts % (Manual) Lymphocytes % (Manual) Monocytes % (Manual) Basophils % (Manual) Nucleated RBC % Seg Neutrophils # Seg Neutrophils # Man Lymphocytes # (Manual) Monocytes # (Manual) Eosinophils # (Manual) Basophils # (Manual) POC ABG pH ABG pH POC ABG pCO2 POC ABG pO2 ABG pO2 ABG Base Excess ABG Hemoglobin Oxyhemoglobin Sodium Potassium Chloride Carbon Dioxide 19 L BUN 29 H Creatinine 2.6 H Glucose 205 H POC Glucose 158 H 251 H Hemoglobin A1c Calcium 7.8 L Phosphorus Magnesium AST Alkaline Phosphatase Total Protein Albumin Urine WBC (Auto) Urine Creatinine Urine Total Protein Crossmatch 06/01/17 06/01/17 06/01/17 04:30 09:15 09:59 WBC 19.7 H RBC Hgb 10.0 L Hct MCH 27 L MCHC RDW 17.1 H Plt Count Lymph % (Auto) [place] % (Auto) [place] # Seg Neutrophils % Seg Neuts % (Manual) Lymphocytes % (Manual) Monocytes % (Manual) Basophils % (Manual) Nucleated RBC % Seg Neutrophils # Seg Neutrophils # Man Lymphocytes # (Manual) Monocytes # (Manual) Eosinophils # (Manual) Basophils # (Manual) POC ABG pH 7.464 H ABG pH POC ABG pCO2 31.3 L POC ABG pO2 ABG pO2 ABG Base Excess ABG Hemoglobin Oxyhemoglobin Sodium Potassium Chloride Carbon Dioxide BUN Creatinine Glucose POC Glucose 330 H Hemoglobin A1c Calcium Phosphorus Magnesium AST Alkaline Phosphatase Total Protein Albumin Urine WBC (Auto) Urine Creatinine Urine Total Protein Crossmatch 06/01/17 06/01/17 06/01/17 11:36 12:25 13:43 WBC RBC Hgb Hct MCH MCHC RDW Plt Count Lymph % (Auto) [place] % (Auto) [place] # Seg Neutrophils % Seg Neuts % (Manual) Lymphocytes % (Manual) Monocytes % (Manual) Basophils % (Manual) Nucleated RBC % Seg Neutrophils # Seg Neutrophils # Man Lymphocytes # (Manual) Monocytes # (Manual) Eosinophils # (Manual) Basophils # (Manual) POC ABG pH ABG pH POC ABG pCO2 POC ABG pO2 ABG pO2 ABG Base Excess ABG Hemoglobin Oxyhemoglobin Sodium Potassium Chloride Carbon Dioxide BUN Creatinine Glucose POC Glucose 431 H 434 H 445 H Hemoglobin A1c Calcium Phosphorus Magnesium AST Alkaline Phosphatase Total Protein Albumin Urine WBC (Auto) Urine Creatinine Urine Total Protein Crossmatch 06/01/17 06/01/17 06/01/17 14:26 15:46 16:03 WBC RBC Hgb Hct MCH MCHC RDW Plt Count Lymph % (Auto) [place] % (Auto) [place] # Seg Neutrophils % Seg Neuts % (Manual) Lymphocytes % (Manual) Monocytes % (Manual) Basophils % (Manual) Nucleated RBC % Seg Neutrophils # Seg Neutrophils # Man Lymphocytes # (Manual) Monocytes # (Manual) Eosinophils # (Manual) Basophils # (Manual) POC ABG pH ABG pH POC ABG pCO2 POC ABG pO2 ABG pO2 ABG Base Excess ABG Hemoglobin Oxyhemoglobin Sodium Potassium Chloride Carbon Dioxide BUN Creatinine Glucose POC Glucose 310 H 292 H 244 H Hemoglobin A1c Calcium Phosphorus Magnesium AST Alkaline Phosphatase Total Protein Albumin Urine WBC (Auto) Urine Creatinine Urine Total Protein Crossmatch 06/01/17 06/01/17 06/01/17 16:59 17:49 19:05 WBC RBC Hgb Hct MCH MCHC RDW Plt Count Lymph % (Auto) [place] % (Auto) [place] # Seg Neutrophils % Seg Neuts % (Manual) Lymphocytes % (Manual) Monocytes % (Manual) Basophils % (Manual) Nucleated RBC % Seg Neutrophils # Seg Neutrophils # Man Lymphocytes # (Manual) Monocytes # (Manual) Eosinophils # (Manual) Basophils # (Manual) POC ABG pH ABG pH POC ABG pCO2 POC ABG pO2 ABG pO2 ABG Base Excess ABG Hemoglobin Oxyhemoglobin Sodium Potassium Chloride Carbon Dioxide BUN Creatinine Glucose POC Glucose 260 H 203 H 156 H Hemoglobin A1c Calcium Phosphorus Magnesium AST Alkaline Phosphatase Total Protein Albumin Urine WBC (Auto) Urine Creatinine Urine Total Protein Crossmatch 06/02/17 06/02/17 06/02/17 00:09 01:06 02:31 WBC RBC Hgb Hct MCH MCHC RDW Plt Count Lymph % (Auto) [place] % (Auto) [place] # Seg Neutrophils % Seg Neuts % (Manual) Lymphocytes % (Manual) Monocytes % (Manual) Basophils % (Manual) Nucleated RBC % Seg Neutrophils # Seg Neutrophils # Man Lymphocytes # (Manual) Monocytes # (Manual) Eosinophils # (Manual) Basophils # (Manual) POC ABG pH ABG pH POC ABG pCO2 POC ABG pO2 ABG pO2 ABG Base Excess ABG Hemoglobin Oxyhemoglobin Sodium Potassium Chloride Carbon Dioxide BUN Creatinine Glucose POC Glucose 137 H 146 H 182 H Hemoglobin A1c Calcium Phosphorus Magnesium AST Alkaline Phosphatase Total Protein Albumin Urine WBC (Auto) Urine Creatinine Urine Total Protein Crossmatch 06/02/17 06/02/17 06/02/17 04:03 04:24 04:24 WBC 21.0 H RBC 3.62 L Hgb Hct 29.6 L MCH MCHC RDW 16.5 H Plt Count Lymph % (Auto) [place] % (Auto) [place] # Seg Neutrophils % Seg Neuts % (Manual) 98.0 H Lymphocytes % (Manual) 1.0 L Monocytes % (Manual) Basophils % (Manual) Nucleated RBC % Seg Neutrophils # Seg Neutrophils # Man 20.6 H Lymphocytes # (Manual) 0.2 L Monocytes # (Manual) Eosinophils # (Manual) Basophils # (Manual) POC ABG pH ABG pH POC ABG pCO2 POC ABG pO2 ABG pO2 ABG Base Excess ABG Hemoglobin Oxyhemoglobin Sodium Potassium Chloride Carbon Dioxide 20 L BUN 36 H Creatinine 2.8 H Glucose 137 H POC Glucose 150 H Hemoglobin A1c Calcium 7.5 L Phosphorus 4.60 H Magnesium 1.50 L AST Alkaline Phosphatase 132 H Total Protein 4.1 L Albumin 1.7 L Urine WBC (Auto) Urine Creatinine Urine Total Protein Crossmatch 06/02/17 06/02/17 06/02/17 05:01 05:14 06:20 WBC RBC Hgb Hct MCH MCHC RDW Plt Count Lymph % (Auto) [place] % (Auto) [place] # Seg Neutrophils % Seg Neuts % (Manual) Lymphocytes % (Manual) Monocytes % (Manual) Basophils % (Manual) Nucleated RBC % Seg Neutrophils # Seg Neutrophils # Man Lymphocytes # (Manual) Monocytes # (Manual) Eosinophils # (Manual) Basophils # (Manual) POC ABG pH 7.517 H ABG pH POC ABG pCO2 28.4 L POC ABG pO2 67 L ABG pO2 ABG Base Excess ABG Hemoglobin Oxyhemoglobin Sodium Potassium Chloride Carbon Dioxide BUN Creatinine Glucose POC Glucose 137 H 163 H Hemoglobin A1c Calcium Phosphorus Magnesium AST Alkaline Phosphatase Total Protein Albumin Urine WBC (Auto) Urine Creatinine Urine Total Protein Crossmatch 06/02/17 06/02/17 06/02/17 07:43 09:40 10:18 WBC RBC Hgb Hct MCH MCHC RDW Plt Count Lymph % (Auto) [place] % (Auto) [place] # Seg Neutrophils % Seg Neuts % (Manual) Lymphocytes % (Manual) Monocytes % (Manual) Basophils % (Manual) Nucleated RBC % Seg Neutrophils # Seg Neutrophils # Man Lymphocytes # (Manual) Monocytes # (Manual) Eosinophils # (Manual) Basophils # (Manual) POC ABG pH ABG pH POC ABG pCO2 POC ABG pO2 ABG pO2 ABG Base Excess ABG Hemoglobin Oxyhemoglobin Sodium Potassium Chloride Carbon Dioxide BUN Creatinine Glucose POC Glucose 135 H 196 H Hemoglobin A1c Calcium Phosphorus Magnesium AST Alkaline Phosphatase Total Protein Albumin Urine WBC (Auto) Urine Creatinine Urine Total Protein < 4 L Crossmatch 06/02/17 06/02/17 06/02/17 10:33 11:55 17:39 WBC RBC Hgb Hct MCH MCHC RDW Plt Count Lymph % (Auto) [place] % (Auto) [place] # Seg Neutrophils % Seg Neuts % (Manual) Lymphocytes % (Manual) Monocytes % (Manual) Basophils % (Manual) Nucleated RBC % Seg Neutrophils # Seg Neutrophils # Man Lymphocytes # (Manual) Monocytes # (Manual) Eosinophils # (Manual) Basophils # (Manual) POC ABG pH ABG pH POC ABG pCO2 POC ABG pO2 ABG pO2 ABG Base Excess ABG Hemoglobin Oxyhemoglobin Sodium Potassium Chloride Carbon Dioxide BUN Creatinine Glucose POC Glucose 188 H 110 H 150 H Hemoglobin A1c Calcium Phosphorus Magnesium AST Alkaline Phosphatase Total Protein Albumin Urine WBC (Auto) Urine Creatinine Urine Total Protein Crossmatch 06/02/17 06/02/17 06/03/17 18:12 21:32 02:02 WBC RBC Hgb Hct MCH MCHC RDW Plt Count Lymph % (Auto) [place] % (Auto) [place] # Seg Neutrophils % Seg Neuts % (Manual) Lymphocytes % (Manual) Monocytes % (Manual) Basophils % (Manual) Nucleated RBC % Seg Neutrophils # Seg Neutrophils # Man Lymphocytes # (Manual) Monocytes # (Manual) Eosinophils # (Manual) Basophils # (Manual) POC ABG pH ABG pH POC ABG pCO2 POC ABG pO2 ABG pO2 ABG Base Excess ABG Hemoglobin Oxyhemoglobin Sodium Potassium Chloride Carbon Dioxide BUN Creatinine Glucose POC Glucose 131 H 143 H 191 H Hemoglobin A1c Calcium Phosphorus Magnesium AST Alkaline Phosphatase Total Protein Albumin Urine WBC (Auto) Urine Creatinine Urine Total Protein Crossmatch 06/03/17 06/03/17 06/03/17 04:14 04:14 05:06 WBC 21.1 H RBC Hgb Hct MCH 27 L MCHC RDW 15.9 H Plt Count 447 H Lymph % (Auto) [place] % (Auto) [place] # Seg Neutrophils % Seg Neuts % (Manual) 94.0 H Lymphocytes % (Manual) 3.0 L Monocytes % (Manual) Basophils % (Manual) Nucleated RBC % Seg Neutrophils # Seg Neutrophils # Man 19.8 H Lymphocytes # (Manual) 0.6 L Monocytes # (Manual) Eosinophils # (Manual) Basophils # (Manual) POC ABG pH ABG pH POC ABG pCO2 28.6 L POC ABG pO2 112 H ABG pO2 ABG Base Excess ABG Hemoglobin Oxyhemoglobin Sodium Potassium Chloride Carbon Dioxide 14 L BUN 45 H Creatinine 2.8 H Glucose 211 H POC Glucose Hemoglobin A1c Calcium 8.0 L Phosphorus Magnesium AST Alkaline Phosphatase Total Protein Albumin Urine WBC (Auto) Urine Creatinine Urine Total Protein Crossmatch 06/03/17 06/03/17 06/03/17 06:00 10:20 13:43 WBC RBC Hgb Hct MCH MCHC RDW Plt Count Lymph % (Auto) [place] % (Auto) [place] # Seg Neutrophils % Seg Neuts % (Manual) Lymphocytes % (Manual) Monocytes % (Manual) Basophils % (Manual) Nucleated RBC % Seg Neutrophils # Seg Neutrophils # Man Lymphocytes # (Manual) Monocytes # (Manual) Eosinophils # (Manual) Basophils # (Manual) POC ABG pH ABG pH POC ABG pCO2 POC ABG pO2 ABG pO2 ABG Base Excess ABG Hemoglobin Oxyhemoglobin Sodium Potassium Chloride Carbon Dioxide BUN Creatinine Glucose POC Glucose 224 H 226 H 296 H Hemoglobin A1c Calcium Phosphorus Magnesium AST Alkaline Phosphatase Total Protein Albumin Urine WBC (Auto) Urine Creatinine Urine Total Protein Crossmatch 06/03/17 06/03/17 06/03/17 17:38 19:23 20:45 WBC RBC Hgb Hct MCH MCHC RDW Plt Count Lymph % (Auto) [place] % (Auto) [place] # Seg Neutrophils % Seg Neuts % (Manual) Lymphocytes % (Manual) Monocytes % (Manual) Basophils % (Manual) Nucleated RBC % Seg Neutrophils # Seg Neutrophils # Man Lymphocytes # (Manual) Monocytes # (Manual) Eosinophils # (Manual) Basophils # (Manual) POC ABG pH ABG pH POC ABG pCO2 POC ABG pO2 ABG pO2 ABG Base Excess ABG Hemoglobin Oxyhemoglobin Sodium Potassium Chloride Carbon Dioxide BUN Creatinine Glucose POC Glucose 295 H 275 H 338 H Hemoglobin A1c Calcium Phosphorus Magnesium AST Alkaline Phosphatase Total Protein Albumin Urine WBC (Auto) Urine Creatinine Urine Total Protein Crossmatch 06/03/17 06/03/17 06/04/17 21:50 23:08 00:16 WBC RBC Hgb Hct MCH MCHC RDW Plt Count Lymph % (Auto) [place] % (Auto) [place] # Seg Neutrophils % Seg Neuts % (Manual) Lymphocytes % (Manual) Monocytes % (Manual) Basophils % (Manual) Nucleated RBC % Seg Neutrophils # Seg Neutrophils # Man Lymphocytes # (Manual) Monocytes # (Manual) Eosinophils # (Manual) Basophils # (Manual) POC ABG pH ABG pH POC ABG pCO2 POC ABG pO2 ABG pO2 ABG Base Excess ABG Hemoglobin Oxyhemoglobin Sodium Potassium Chloride Carbon Dioxide BUN Creatinine Glucose POC Glucose 223 H 214 H 226 H Hemoglobin A1c Calcium Phosphorus Magnesium AST Alkaline Phosphatase Total Protein Albumin Urine WBC (Auto) Urine Creatinine Urine Total Protein Crossmatch 06/04/17 06/04/17 06/04/17 01:05 02:07 03:27 WBC RBC Hgb Hct MCH MCHC RDW Plt Count Lymph % (Auto) [place] % (Auto) [place] # Seg Neutrophils % Seg Neuts % (Manual) Lymphocytes % (Manual) Monocytes % (Manual) Basophils % (Manual) Nucleated RBC % Seg Neutrophils # Seg Neutrophils # Man Lymphocytes # (Manual) Monocytes # (Manual) Eosinophils # (Manual) Basophils # (Manual) POC ABG pH ABG pH POC ABG pCO2 POC ABG pO2 ABG pO2 ABG Base Excess ABG Hemoglobin Oxyhemoglobin Sodium Potassium Chloride Carbon Dioxide BUN Creatinine Glucose POC Glucose 217 H 229 H 185 H Hemoglobin A1c Calcium Phosphorus Magnesium AST Alkaline Phosphatase Total Protein Albumin Urine WBC (Auto) Urine Creatinine Urine Total Protein Crossmatch 06/04/17 06/04/17 06/04/17 03:52 04:05 04:05 WBC 19.6 H RBC Hgb Hct MCH 26 L MCHC RDW 15.6 H Plt Count 564 H Lymph % (Auto) 7.3 L [place] % (Auto) 10.8 H [place] # 2.1 H Seg Neutrophils % 81.4 H Seg Neuts % (Manual) Lymphocytes % (Manual) Monocytes % (Manual) Basophils % (Manual) Nucleated RBC % Seg Neutrophils # 15.9 H Seg Neutrophils # Man Lymphocytes # (Manual) Monocytes # (Manual) Eosinophils # (Manual) Basophils # (Manual) POC ABG pH ABG pH POC ABG pCO2 POC ABG pO2 ABG pO2 ABG Base Excess ABG Hemoglobin Oxyhemoglobin Sodium Potassium Chloride Carbon Dioxide 17 L BUN 52 H Creatinine 2.5 H Glucose 163 H POC Glucose 181 H Hemoglobin A1c Calcium 7.9 L Phosphorus Magnesium AST Alkaline Phosphatase Total Protein Albumin Urine WBC (Auto) Urine Creatinine Urine Total Protein Crossmatch 06/04/17 06/04/17 06/04/17 04:56 05:39 06:12 WBC RBC Hgb Hct MCH MCHC RDW Plt Count Lymph % (Auto) [place] % (Auto) [place] # Seg Neutrophils % Seg Neuts % (Manual) Lymphocytes % (Manual) Monocytes % (Manual) Basophils % (Manual) Nucleated RBC % Seg Neutrophils # Seg Neutrophils # Man Lymphocytes # (Manual) Monocytes # (Manual) Eosinophils # (Manual) Basophils # (Manual) POC ABG pH 7.486 H ABG pH POC ABG pCO2 26.8 L POC ABG pO2 ABG pO2 ABG Base Excess ABG Hemoglobin Oxyhemoglobin Sodium Potassium Chloride Carbon Dioxide BUN Creatinine Glucose POC Glucose 208 H 225 H Hemoglobin A1c Calcium Phosphorus Magnesium AST Alkaline Phosphatase Total Protein Albumin Urine WBC (Auto) Urine Creatinine Urine Total Protein Crossmatch 06/04/17 06/04/17 06/04/17 07:07 08:06 09:15 WBC RBC Hgb Hct MCH MCHC RDW Plt Count Lymph % (Auto) [place] % (Auto) [place] # Seg Neutrophils % Seg Neuts % (Manual) Lymphocytes % (Manual) Monocytes % (Manual) Basophils % (Manual) Nucleated RBC % Seg Neutrophils # Seg Neutrophils # Man Lymphocytes # (Manual) Monocytes # (Manual) Eosinophils # (Manual) Basophils # (Manual) POC ABG pH ABG pH POC ABG pCO2 POC ABG pO2 ABG pO2 ABG Base Excess ABG Hemoglobin Oxyhemoglobin Sodium Potassium Chloride Carbon Dioxide BUN Creatinine Glucose POC Glucose 201 H 171 H 178 H Hemoglobin A1c Calcium Phosphorus Magnesium AST Alkaline Phosphatase Total Protein Albumin Urine WBC (Auto) Urine Creatinine Urine Total Protein Crossmatch 06/04/17 06/04/17 06/04/17 10:16 12:22 17:21 WBC RBC Hgb Hct MCH MCHC RDW Plt Count Lymph % (Auto) [place] % (Auto) [place] # Seg Neutrophils % Seg Neuts % (Manual) Lymphocytes % (Manual) Monocytes % (Manual) Basophils % (Manual) Nucleated RBC % Seg Neutrophils # Seg Neutrophils # Man Lymphocytes # (Manual) Monocytes # (Manual) Eosinophils # (Manual) Basophils # (Manual) POC ABG pH ABG pH POC ABG pCO2 POC ABG pO2 ABG pO2 ABG Base Excess ABG Hemoglobin Oxyhemoglobin Sodium Potassium Chloride Carbon Dioxide BUN Creatinine Glucose POC Glucose 191 H 188 H Hemoglobin A1c Calcium Phosphorus Magnesium AST Alkaline Phosphatase Total Protein Albumin Urine WBC (Auto) Urine Creatinine 78.7 H Urine Total Protein 197 H Crossmatch 06/04/17 06/04/17 06/05/17 17:56 22:10 00:00 WBC RBC Hgb Hct MCH MCHC RDW Plt Count Lymph % (Auto) [place] % (Auto) [place] # Seg Neutrophils % Seg Neuts % (Manual) Lymphocytes % (Manual) Monocytes % (Manual) Basophils % (Manual) Nucleated RBC % Seg Neutrophils # Seg Neutrophils # Man Lymphocytes # (Manual) Monocytes # (Manual) Eosinophils # (Manual) Basophils # (Manual) POC ABG pH ABG pH POC ABG pCO2 POC ABG pO2 ABG pO2 ABG Base Excess ABG Hemoglobin Oxyhemoglobin Sodium Potassium Chloride Carbon Dioxide 17 L BUN 55 H Creatinine 2.3 H Glucose 300 H POC Glucose 266 H 337 H Hemoglobin A1c Calcium 7.4 L Phosphorus Magnesium AST Alkaline Phosphatase Total Protein Albumin Urine WBC (Auto) Urine Creatinine Urine Total Protein Crossmatch 06/05/17 06/05/17 06/05/17 03:26 04:11 05:13 WBC RBC Hgb Hct MCH MCHC RDW Plt Count Lymph % (Auto) [place] % (Auto) [place] # Seg Neutrophils % Seg Neuts % (Manual) Lymphocytes % (Manual) Monocytes % (Manual) Basophils % (Manual) Nucleated RBC % Seg Neutrophils # Seg Neutrophils # Man Lymphocytes # (Manual) Monocytes # (Manual) Eosinophils # (Manual) Basophils # (Manual) POC ABG pH 7.586 H ABG pH POC ABG pCO2 22.6 L POC ABG pO2 179 H ABG pO2 ABG Base Excess ABG Hemoglobin Oxyhemoglobin Sodium Potassium Chloride Carbon Dioxide 19 L BUN 55 H Creatinine 2.2 H Glucose 226 H POC Glucose 220 H Hemoglobin A1c Calcium 7.7 L Phosphorus Magnesium AST Alkaline Phosphatase Total Protein Albumin Urine WBC (Auto) Urine Creatinine Urine Total Protein Crossmatch 06/05/17 06/05/17 06/05/17 12:42 18:24 21:23 WBC RBC Hgb Hct MCH MCHC RDW Plt Count Lymph % (Auto) [place] % (Auto) [place] # Seg Neutrophils % Seg Neuts % (Manual) Lymphocytes % (Manual) Monocytes % (Manual) Basophils % (Manual) Nucleated RBC % Seg Neutrophils # Seg Neutrophils # Man Lymphocytes # (Manual) Monocytes # (Manual) Eosinophils # (Manual) Basophils # (Manual) POC ABG pH ABG pH POC ABG pCO2 POC ABG pO2 ABG pO2 ABG Base Excess ABG Hemoglobin Oxyhemoglobin Sodium Potassium Chloride Carbon Dioxide BUN Creatinine Glucose POC Glucose 168 H 121 H 166 H Hemoglobin A1c Calcium Phosphorus Magnesium AST Alkaline Phosphatase Total Protein Albumin Urine WBC (Auto) Urine Creatinine Urine Total Protein Crossmatch 06/06/17 06/06/17 06/06/17 00:14 04:11 06:19 WBC RBC Hgb Hct MCH MCHC RDW Plt Count Lymph % (Auto) [place] % (Auto) [place] # Seg Neutrophils % Seg Neuts % (Manual) Lymphocytes % (Manual) Monocytes % (Manual) Basophils % (Manual) Nucleated RBC % Seg Neutrophils # Seg Neutrophils # Man Lymphocytes # (Manual) Monocytes # (Manual) Eosinophils # (Manual) Basophils # (Manual) POC ABG pH ABG pH POC ABG pCO2 33.0 L POC ABG pO2 ABG pO2 ABG Base Excess ABG Hemoglobin Oxyhemoglobin Sodium Potassium Chloride Carbon Dioxide BUN Creatinine Glucose POC Glucose 179 H 180 H Hemoglobin A1c Calcium Phosphorus Magnesium AST Alkaline Phosphatase Total Protein Albumin Urine WBC (Auto) Urine Creatinine Urine Total Protein Crossmatch 06/06/17 06/06/17 06/06/17 12:19 18:38 20:01 WBC RBC Hgb Hct MCH MCHC RDW Plt Count Lymph % (Auto) [place] % (Auto) [place] # Seg Neutrophils % Seg Neuts % (Manual) Lymphocytes % (Manual) Monocytes % (Manual) Basophils % (Manual) Nucleated RBC % Seg Neutrophils # Seg Neutrophils # Man Lymphocytes # (Manual) Monocytes # (Manual) Eosinophils # (Manual) Basophils # (Manual) POC ABG pH ABG pH POC ABG pCO2 POC ABG pO2 ABG pO2 ABG Base Excess ABG Hemoglobin Oxyhemoglobin Sodium Potassium Chloride Carbon Dioxide BUN Creatinine Glucose POC Glucose 123 H 56 L 65 L Hemoglobin A1c Calcium Phosphorus Magnesium AST Alkaline Phosphatase Total Protein Albumin Urine WBC (Auto) Urine Creatinine Urine Total Protein Crossmatch 06/06/17 06/07/1706/07/18 23:51 04:25 05:29 WBC RBC Hgb Hct MCH MCHC RDW Plt Count Lymph % (Auto) [place] % (Auto) [place] # Seg Neutrophils % Seg Neuts % (Manual) Lymphocytes % (Manual) Monocytes % (Manual) Basophils % (Manual) Nucleated RBC % Seg Neutrophils # Seg Neutrophils # Man Lymphocytes # (Manual) Monocytes # (Manual) Eosinophils # (Manual) Basophils # (Manual) POC ABG pH 7.470 H ABG pH POC ABG pCO2 33.6 L POC ABG pO2 ABG pO2 ABG Base Excess ABG Hemoglobin Oxyhemoglobin Sodium Potassium Chloride Carbon Dioxide BUN Creatinine Glucose POC Glucose 118 H 183 H Hemoglobin A1c Calcium Phosphorus Magnesium AST Alkaline Phosphatase Total Protein Albumin Urine WBC (Auto) Urine Creatinine Urine Total Protein Crossmatch 06/07/17 06/07/17 06/07/17 07:51 12:00 18:08 WBC RBC Hgb Hct MCH MCHC RDW Plt Count Lymph % (Auto) [place] % (Auto) [place] # Seg Neutrophils % Seg Neuts % (Manual) Lymphocytes % (Manual) Monocytes % (Manual) Basophils % (Manual) Nucleated RBC % Seg Neutrophils # Seg Neutrophils # Man Lymphocytes # (Manual) Monocytes # (Manual) Eosinophils # (Manual) Basophils # (Manual) POC ABG pH ABG pH POC ABG pCO2 POC ABG pO2 ABG pO2 ABG Base Excess ABG Hemoglobin Oxyhemoglobin Sodium 135 L Potassium Chloride Carbon Dioxide 21 L BUN 50 H Creatinine 1.8 H Glucose 232 H POC Glucose 361 H 249 H Hemoglobin A1c Calcium 8.0 L Phosphorus Magnesium AST Alkaline Phosphatase Total Protein Albumin Urine WBC (Auto) Urine Creatinine Urine Total Protein Crossmatch 06/07/17 06/08/17 06/08/17 23:53 05:25 11:50 WBC RBC Hgb Hct MCH MCHC RDW Plt Count Lymph % (Auto) [place] % (Auto) [place] # Seg Neutrophils % Seg Neuts % (Manual) Lymphocytes % (Manual) Monocytes % (Manual) Basophils % (Manual) Nucleated RBC % Seg Neutrophils # Seg Neutrophils # Man Lymphocytes # (Manual) Monocytes # (Manual) Eosinophils # (Manual) Basophils # (Manual) POC ABG pH ABG pH POC ABG pCO2 POC ABG pO2 ABG pO2 ABG Base Excess ABG Hemoglobin Oxyhemoglobin Sodium Potassium Chloride Carbon Dioxide BUN Creatinine Glucose POC Glucose 190 H 136 H 166 H Hemoglobin A1c Calcium Phosphorus Magnesium AST Alkaline Phosphatase Total Protein Albumin Urine WBC (Auto) Urine Creatinine Urine Total Protein Crossmatch 06/08/17 06/08/17 06/08/17 14:20 14:20 19:05 WBC 15.7 H RBC 3.49 L Hgb 9.4 L Hct 27.9 L MCH 27 L MCHC RDW 15.3 H Plt Count 590 H Lymph % (Auto) [place] % (Auto) [place] # Seg Neutrophils % Seg Neuts % (Manual) Lymphocytes % (Manual) Monocytes % (Manual) Basophils % (Manual) Nucleated RBC % Seg Neutrophils # Seg Neutrophils # Man Lymphocytes # (Manual) Monocytes # (Manual) Eosinophils # (Manual) Basophils # (Manual) POC ABG pH ABG pH POC ABG pCO2 POC ABG pO2 ABG pO2 ABG Base Excess ABG Hemoglobin Oxyhemoglobin Sodium Potassium Chloride Carbon Dioxide BUN 55 H Creatinine 1.7 H Glucose 117 H POC Glucose 135 H Hemoglobin A1c Calcium Phosphorus Magnesium AST Alkaline Phosphatase Total Protein Albumin Urine WBC (Auto) Urine Creatinine Urine Total Protein Crossmatch 06/08/17 06/08/17 06/09/17 21:52 23:55 04:18 WBC RBC Hgb Hct MCH MCHC RDW Plt Count Lymph % (Auto) [place] % (Auto) [place] # Seg Neutrophils % Seg Neuts % (Manual) Lymphocytes % (Manual) Monocytes % (Manual) Basophils % (Manual) Nucleated RBC % Seg Neutrophils # Seg Neutrophils # Man Lymphocytes # (Manual) Monocytes # (Manual) Eosinophils # (Manual) Basophils # (Manual) POC ABG pH ABG pH POC ABG pCO2 POC ABG pO2 ABG pO2 ABG Base Excess ABG Hemoglobin Oxyhemoglobin Sodium Potassium Chloride Carbon Dioxide BUN 51 H Creatinine 1.6 H Glucose POC Glucose 186 H 209 H Hemoglobin A1c Calcium Phosphorus Magnesium AST Alkaline Phosphatase Total Protein Albumin Urine WBC (Auto) Urine Creatinine Urine Total Protein Crossmatch 06/09/17 06/09/17 06/09/17 09:56 12:42 18:09 WBC RBC Hgb Hct MCH MCHC RDW Plt Count Lymph % (Auto) [place] % (Auto) [place] # Seg Neutrophils % Seg Neuts % (Manual) Lymphocytes % (Manual) Monocytes % (Manual) Basophils % (Manual) Nucleated RBC % Seg Neutrophils # Seg Neutrophils # Man Lymphocytes # (Manual) Monocytes # (Manual) Eosinophils # (Manual) Basophils # (Manual) POC ABG pH ABG pH POC ABG pCO2 POC ABG pO2 ABG pO2 ABG Base Excess ABG Hemoglobin Oxyhemoglobin Sodium Potassium Chloride Carbon Dioxide BUN Creatinine Glucose POC Glucose 63 L 142 H 166 H Hemoglobin A1c Calcium Phosphorus Magnesium AST Alkaline Phosphatase Total Protein Albumin Urine WBC (Auto) Urine Creatinine Urine Total Protein Crossmatch 06/09/17 06/10/17 06/10/17 23:39 03:24 04:28 WBC 15.1 H RBC 2.99 L Hgb 8.1 L Hct 23.6 L MCH 27 L MCHC 35 H RDW 15.4 H Plt Count 500 H Lymph % (Auto) [place] % (Auto) [place] # Seg Neutrophils % Seg Neuts % (Manual) Lymphocytes % (Manual) Monocytes % (Manual) Basophils % (Manual) Nucleated RBC % Seg Neutrophils # Seg Neutrophils # Man Lymphocytes # (Manual) Monocytes # (Manual) Eosinophils # (Manual) Basophils # (Manual) POC ABG pH 7.461 H ABG pH POC ABG pCO2 POC ABG pO2 131 H ABG pO2 ABG Base Excess ABG Hemoglobin Oxyhemoglobin Sodium Potassium Chloride Carbon Dioxide BUN Creatinine Glucose POC Glucose 284 H Hemoglobin A1c Calcium Phosphorus Magnesium AST Alkaline Phosphatase Total Protein Albumin Urine WBC (Auto) Urine Creatinine Urine Total Protein Crossmatch 06/10/17 06/10/17 06/10/17 04:28 05:10 12:41 WBC RBC Hgb Hct MCH MCHC RDW Plt Count Lymph % (Auto) [place] % (Auto) [place] # Seg Neutrophils % Seg Neuts % (Manual) Lymphocytes % (Manual) Monocytes % (Manual) Basophils % (Manual) Nucleated RBC % Seg Neutrophils # Seg Neutrophils # Man Lymphocytes # (Manual) Monocytes # (Manual) Eosinophils # (Manual) Basophils # (Manual) POC ABG pH ABG pH POC ABG pCO2 POC ABG pO2 ABG pO2 ABG Base Excess ABG Hemoglobin Oxyhemoglobin Sodium Potassium Chloride Carbon Dioxide BUN 53 H Creatinine 1.8 H Glucose 185 H POC Glucose 190 H 50 L Hemoglobin A1c Calcium Phosphorus Magnesium AST Alkaline Phosphatase Total Protein Albumin Urine WBC (Auto) Urine Creatinine Urine Total Protein Crossmatch 06/10/17 06/10/17 06/11/17 14:35 18:31 00:09 WBC RBC Hgb Hct MCH MCHC RDW Plt Count Lymph % (Auto) [place] % (Auto) [place] # Seg Neutrophils % Seg Neuts % (Manual) Lymphocytes % (Manual) Monocytes % (Manual) Basophils % (Manual) Nucleated RBC % Seg Neutrophils # Seg Neutrophils # Man Lymphocytes # (Manual) Monocytes # (Manual) Eosinophils # (Manual) Basophils # (Manual) POC ABG pH ABG pH POC ABG pCO2 POC ABG pO2 ABG pO2 ABG Base Excess ABG Hemoglobin Oxyhemoglobin Sodium Potassium Chloride Carbon Dioxide BUN Creatinine Glucose POC Glucose 58 L 55 L 126 H Hemoglobin A1c Calcium Phosphorus Magnesium AST Alkaline Phosphatase Total Protein Albumin Urine WBC (Auto) Urine Creatinine Urine Total Protein Crossmatch 06/11/17 06/11/17 06/11/17 05:32 06:01 06:03 WBC 15.6 H RBC 3.03 L Hgb 8.3 L Hct 24.0 L MCH MCHC 35 H RDW Plt Count 492 H Lymph % (Auto) [place] % (Auto) [place] # Seg Neutrophils % Seg Neuts % (Manual) Lymphocytes % (Manual) Monocytes % (Manual) Basophils % (Manual) Nucleated RBC % Seg Neutrophils # Seg Neutrophils # Man Lymphocytes # (Manual) Monocytes # (Manual) Eosinophils # (Manual) Basophils # (Manual) POC ABG pH ABG pH POC ABG pCO2 POC ABG pO2 ABG pO2 ABG Base Excess ABG Hemoglobin Oxyhemoglobin Sodium Potassium Chloride Carbon Dioxide BUN 55 H Creatinine 1.8 H Glucose 228 H POC Glucose 219 H Hemoglobin A1c Calcium Phosphorus Magnesium AST Alkaline Phosphatase Total Protein Albumin Urine WBC (Auto) Urine Creatinine Urine Total Protein Crossmatch 06/11/17 06/11/17 06/12/17 11:53 18:31 04:24 WBC 17.4 H RBC 2.90 L Hgb 8.0 L Hct 23.0 L MCH MCHC 35 H RDW Plt Count 460 H Lymph % (Auto) [place] % (Auto) [place] # Seg Neutrophils % Seg Neuts % (Manual) Lymphocytes % (Manual) Monocytes % (Manual) Basophils % (Manual) Nucleated RBC % Seg Neutrophils # Seg Neutrophils # Man Lymphocytes # (Manual) Monocytes # (Manual) Eosinophils # (Manual) Basophils # (Manual) POC ABG pH ABG pH POC ABG pCO2 POC ABG pO2 ABG pO2 ABG Base Excess ABG Hemoglobin Oxyhemoglobin Sodium Potassium Chloride Carbon Dioxide BUN Creatinine Glucose POC Glucose 220 H 254 H Hemoglobin A1c Calcium Phosphorus Magnesium AST Alkaline Phosphatase Total Protein Albumin Urine WBC (Auto) Urine Creatinine Urine Total Protein Crossmatch 06/12/17 06/12/17 06/12/17 05:37 05:40 06:00 WBC RBC Hgb Hct MCH MCHC RDW Plt Count Lymph % (Auto) [place] % (Auto) [place] # Seg Neutrophils % Seg Neuts % (Manual) Lymphocytes % (Manual) Monocytes % (Manual) Basophils % (Manual) Nucleated RBC % Seg Neutrophils # Seg Neutrophils # Man Lymphocytes # (Manual) Monocytes # (Manual) Eosinophils # (Manual) Basophils # (Manual) POC ABG pH ABG pH POC ABG pCO2 POC ABG pO2 ABG pO2 ABG Base Excess ABG Hemoglobin Oxyhemoglobin Sodium Potassium Chloride Carbon Dioxide BUN Creatinine Glucose 41 L POC Glucose < 40 L < 40 L Hemoglobin A1c Calcium Phosphorus Magnesium AST Alkaline Phosphatase Total Protein Albumin Urine WBC (Auto) Urine Creatinine Urine Total Protein Crossmatch 06/12/17 06/12/17 06/12/17 07:09 07:51 10:06 WBC RBC Hgb Hct MCH MCHC RDW Plt Count Lymph % (Auto) [place] % (Auto) [place] # Seg Neutrophils % Seg Neuts % (Manual) Lymphocytes % (Manual) Monocytes % (Manual) Basophils % (Manual) Nucleated RBC % Seg Neutrophils # Seg Neutrophils # Man Lymphocytes # (Manual) Monocytes # (Manual) Eosinophils # (Manual) Basophils # (Manual) POC ABG pH ABG pH POC ABG pCO2 POC ABG pO2 ABG pO2 ABG Base Excess ABG Hemoglobin Oxyhemoglobin Sodium Potassium Chloride Carbon Dioxide BUN Creatinine Glucose POC Glucose 64 L 42 L 61 L Hemoglobin A1c Calcium Phosphorus Magnesium AST Alkaline Phosphatase Total Protein Albumin Urine WBC (Auto) Urine Creatinine Urine Total Protein Crossmatch 06/12/17 06/12/17 06/12/17 11:16 14:04 18:03 WBC RBC Hgb Hct MCH MCHC RDW Plt Count Lymph % (Auto) [place] % (Auto) [place] # Seg Neutrophils % Seg Neuts % (Manual) Lymphocytes % (Manual) Monocytes % (Manual) Basophils % (Manual) Nucleated RBC % Seg Neutrophils # Seg Neutrophils # Man Lymphocytes # (Manual) Monocytes # (Manual) Eosinophils # (Manual) Basophils # (Manual) POC ABG pH ABG pH POC ABG pCO2 POC ABG pO2 ABG pO2 ABG Base Excess ABG Hemoglobin Oxyhemoglobin Sodium Potassium Chloride Carbon Dioxide BUN Creatinine Glucose POC Glucose 67 L 112 H 116 H Hemoglobin A1c Calcium Phosphorus Magnesium AST Alkaline Phosphatase Total Protein Albumin Urine WBC (Auto) Urine Creatinine Urine Total Protein Crossmatch 06/12/17 06/12/17 06/12/17 19:30 20:34 21:01 WBC RBC Hgb Hct MCH MCHC RDW Plt Count Lymph % (Auto) [place] % (Auto) [place] # Seg Neutrophils % Seg Neuts % (Manual) Lymphocytes % (Manual) Monocytes % (Manual) Basophils % (Manual) Nucleated RBC % Seg Neutrophils # Seg Neutrophils # Man Lymphocytes # (Manual) Monocytes # (Manual) Eosinophils # (Manual) Basophils # (Manual) POC ABG pH ABG pH POC ABG pCO2 POC ABG pO2 ABG pO2 ABG Base Excess ABG Hemoglobin Oxyhemoglobin Sodium Potassium Chloride Carbon Dioxide BUN Creatinine Glucose POC Glucose 156 H 172 H 174 H Hemoglobin A1c Calcium Phosphorus Magnesium AST Alkaline Phosphatase Total Protein Albumin Urine WBC (Auto) Urine Creatinine Urine Total Protein Crossmatch 06/12/17 06/12/17 06/13/17 22:00 23:23 00:27 WBC RBC Hgb Hct MCH MCHC RDW Plt Count Lymph % (Auto) [place] % (Auto) [place] # Seg Neutrophils % Seg Neuts % (Manual) Lymphocytes % (Manual) Monocytes % (Manual) Basophils % (Manual) Nucleated RBC % Seg Neutrophils # Seg Neutrophils # Man Lymphocytes # (Manual) Monocytes # (Manual) Eosinophils # (Manual) Basophils # (Manual) POC ABG pH ABG pH POC ABG pCO2 POC ABG pO2 ABG pO2 ABG Base Excess ABG Hemoglobin Oxyhemoglobin Sodium Potassium Chloride Carbon Dioxide BUN Creatinine Glucose POC Glucose 240 H 286 H 182 H Hemoglobin A1c Calcium Phosphorus Magnesium AST Alkaline Phosphatase Total Protein Albumin Urine WBC (Auto) Urine Creatinine Urine Total Protein Crossmatch 06/13/17 06/13/17 06/13/17 01:28 02:10 03:15 WBC RBC Hgb Hct MCH MCHC RDW Plt Count Lymph % (Auto) [place] % (Auto) [place] # Seg Neutrophils % Seg Neuts % (Manual) Lymphocytes % (Manual) Monocytes % (Manual) Basophils % (Manual) Nucleated RBC % Seg Neutrophils # Seg Neutrophils # Man Lymphocytes # (Manual) Monocytes # (Manual) Eosinophils # (Manual) Basophils # (Manual) POC ABG pH ABG pH POC ABG pCO2 POC ABG pO2 ABG pO2 ABG Base Excess ABG Hemoglobin Oxyhemoglobin Sodium Potassium Chloride Carbon Dioxide BUN Creatinine Glucose POC Glucose 304 H 277 H 318 H Hemoglobin A1c Calcium Phosphorus Magnesium AST Alkaline Phosphatase Total Protein Albumin Urine WBC (Auto) Urine Creatinine Urine Total Protein Crossmatch 06/13/17 06/13/17 06/13/17 04:15 05:10 05:38 WBC RBC Hgb Hct MCH MCHC RDW Plt Count Lymph % (Auto) [place] % (Auto) [place] # Seg Neutrophils % Seg Neuts % (Manual) Lymphocytes % (Manual) Monocytes % (Manual) Basophils % (Manual) Nucleated RBC % Seg Neutrophils # Seg Neutrophils # Man Lymphocytes # (Manual) Monocytes # (Manual) Eosinophils # (Manual) Basophils # (Manual) POC ABG pH ABG pH POC ABG pCO2 POC ABG pO2 ABG pO2 ABG Base Excess ABG Hemoglobin Oxyhemoglobin Sodium Potassium Chloride Carbon Dioxide BUN Creatinine Glucose POC Glucose 294 H 275 H 315 H Hemoglobin A1c Calcium Phosphorus Magnesium AST Alkaline Phosphatase Total Protein Albumin Urine WBC (Auto) Urine Creatinine Urine Total Protein Crossmatch 06/13/17 06/13/17 06/13/17 06:21 12:02 16:52 WBC RBC Hgb Hct MCH MCHC RDW Plt Count Lymph % (Auto) [place] % (Auto) [place] # Seg Neutrophils % Seg Neuts % (Manual) Lymphocytes % (Manual) Monocytes % (Manual) Basophils % (Manual) Nucleated RBC % Seg Neutrophils # Seg Neutrophils # Man Lymphocytes # (Manual) Monocytes # (Manual) Eosinophils # (Manual) Basophils # (Manual) POC ABG pH ABG pH POC ABG pCO2 POC ABG pO2 ABG pO2 ABG Base Excess ABG Hemoglobin Oxyhemoglobin Sodium Potassium Chloride Carbon Dioxide BUN Creatinine Glucose POC Glucose 350 H 333 H 343 H Hemoglobin A1c Calcium Phosphorus Magnesium AST Alkaline Phosphatase Total Protein Albumin Urine WBC (Auto) Urine Creatinine Urine Total Protein Crossmatch 06/14/17 06/14/17 06/14/17 00:01 04:18 04:18 WBC 29.6 H RBC 2.81 L Hgb 7.8 L Hct 23.2 L MCH MCHC RDW 15.3 H Plt Count Lymph % (Auto) [place] % (Auto) [place] # Seg Neutrophils % Seg Neuts % (Manual) Lymphocytes % (Manual) Monocytes % (Manual) Basophils % (Manual) Nucleated RBC % Seg Neutrophils # Seg Neutrophils # Man Lymphocytes # (Manual) Monocytes # (Manual) Eosinophils # (Manual) Basophils # (Manual) POC ABG pH ABG pH POC ABG pCO2 POC ABG pO2 ABG pO2 ABG Base Excess ABG Hemoglobin Oxyhemoglobin Sodium Potassium Chloride Carbon Dioxide 20 L BUN 75 H Creatinine 2.2 H Glucose 364 H POC Glucose 297 H Hemoglobin A1c Calcium Phosphorus Magnesium AST Alkaline Phosphatase Total Protein Albumin Urine WBC (Auto) Urine Creatinine Urine Total Protein Crossmatch 06/14/17 06/14/17 06/14/17 05:10 08:25 11:46 WBC RBC Hgb Hct MCH MCHC RDW Plt Count Lymph % (Auto) [place] % (Auto) [place] # Seg Neutrophils % Seg Neuts % (Manual) Lymphocytes % (Manual) Monocytes % (Manual) Basophils % (Manual) Nucleated RBC % Seg Neutrophils # Seg Neutrophils # Man Lymphocytes # (Manual) Monocytes # (Manual) Eosinophils # (Manual) Basophils # (Manual) POC ABG pH ABG pH POC ABG pCO2 POC ABG pO2 ABG pO2 ABG Base Excess ABG Hemoglobin Oxyhemoglobin Sodium Potassium Chloride Carbon Dioxide BUN Creatinine Glucose POC Glucose 350 H 322 H 391 H Hemoglobin A1c Calcium Phosphorus Magnesium AST Alkaline Phosphatase Total Protein Albumin Urine WBC (Auto) Urine Creatinine Urine Total Protein Crossmatch 06/14/17 06/15/17 06/15/17 18:04 00:16 11:20 WBC RBC Hgb Hct MCH MCHC RDW Plt Count Lymph % (Auto) [place] % (Auto) [place] # Seg Neutrophils % Seg Neuts % (Manual) Lymphocytes % (Manual) Monocytes % (Manual) Basophils % (Manual) Nucleated RBC % Seg Neutrophils # Seg Neutrophils # Man Lymphocytes # (Manual) Monocytes # (Manual) Eosinophils # (Manual) Basophils # (Manual) POC ABG pH ABG pH POC ABG pCO2 POC ABG pO2 ABG pO2 ABG Base Excess ABG Hemoglobin Oxyhemoglobin Sodium Potassium Chloride Carbon Dioxide 21 L BUN 88 H Creatinine 2.7 H Glucose 302 H POC Glucose 384 H 435 H Hemoglobin A1c Calcium Phosphorus Magnesium AST Alkaline Phosphatase Total Protein Albumin Urine WBC (Auto) Urine Creatinine Urine Total Protein Crossmatch 06/15/17 06/15/17 06/15/17 11:47 17:35 21:33 WBC RBC Hgb Hct MCH MCHC RDW Plt Count Lymph % (Auto) [place] % (Auto) [place] # Seg Neutrophils % Seg Neuts % (Manual) Lymphocytes % (Manual) Monocytes % (Manual) Basophils % (Manual) Nucleated RBC % Seg Neutrophils # Seg Neutrophils # Man Lymphocytes # (Manual) Monocytes # (Manual) Eosinophils # (Manual) Basophils # (Manual) POC ABG pH ABG pH POC ABG pCO2 POC ABG pO2 ABG pO2 ABG Base Excess ABG Hemoglobin Oxyhemoglobin Sodium Potassium Chloride Carbon Dioxide BUN Creatinine Glucose POC Glucose 311 H 428 H 346 H Hemoglobin A1c Calcium Phosphorus Magnesium AST Alkaline Phosphatase Total Protein Albumin Urine WBC (Auto) Urine Creatinine Urine Total Protein Crossmatch 06/15/17 06/15/17 06/16/17 23:23 Unknown 05:36 WBC RBC Hgb Hct MCH MCHC RDW Plt Count Lymph % (Auto) [place] % (Auto) [place] # Seg Neutrophils % Seg Neuts % (Manual) Lymphocytes % (Manual) Monocytes % (Manual) Basophils % (Manual) Nucleated RBC % Seg Neutrophils # Seg Neutrophils # Man Lymphocytes # (Manual) Monocytes # (Manual) Eosinophils # (Manual) Basophils # (Manual) POC ABG pH ABG pH POC ABG pCO2 POC ABG pO2 ABG pO2 ABG Base Excess ABG Hemoglobin 10.1 L Oxyhemoglobin 94.9 L Sodium Potassium Chloride Carbon Dioxide BUN Creatinine Glucose POC Glucose 351 H 303 H Hemoglobin A1c Calcium Phosphorus Magnesium AST Alkaline Phosphatase Total Protein Albumin Urine WBC (Auto) Urine Creatinine Urine Total Protein Crossmatch 06/16/17 06/16/17 06/16/17 06:33 06:33 08:26 WBC 25.8 H RBC 2.68 L Hgb 7.2 L Hct 21.6 L MCH 27 L MCHC RDW 15.9 H Plt Count Lymph % (Auto) [place] % (Auto) [place] # Seg Neutrophils % Seg Neuts % (Manual) Lymphocytes % (Manual) Monocytes % (Manual) Basophils % (Manual) Nucleated RBC % Seg Neutrophils # Seg Neutrophils # Man Lymphocytes # (Manual) Monocytes # (Manual) Eosinophils # (Manual) Basophils # (Manual) POC ABG pH ABG pH POC ABG pCO2 POC ABG pO2 ABG pO2 ABG Base Excess ABG Hemoglobin Oxyhemoglobin Sodium Potassium Chloride Carbon Dioxide 21 L BUN 94 H Creatinine 2.7 H Glucose 280 H POC Glucose Hemoglobin A1c Calcium Phosphorus Magnesium AST Alkaline Phosphatase Total Protein Albumin Urine WBC (Auto) > 182.0 H Urine Creatinine Urine Total Protein Crossmatch 06/16/17 06/16/17 06/16/17 08:26 11:45 18:28 WBC RBC Hgb Hct MCH MCHC RDW Plt Count Lymph % (Auto) [place] % (Auto) [place] # Seg Neutrophils % Seg Neuts % (Manual) Lymphocytes % (Manual) Monocytes % (Manual) Basophils % (Manual) Nucleated RBC % Seg Neutrophils # Seg Neutrophils # Man Lymphocytes # (Manual) Monocytes # (Manual) Eosinophils # (Manual) Basophils # (Manual) POC ABG pH ABG pH POC ABG pCO2 POC ABG pO2 ABG pO2 ABG Base Excess ABG Hemoglobin Oxyhemoglobin Sodium Potassium Chloride Carbon Dioxide BUN Creatinine Glucose POC Glucose 263 H 175 H Hemoglobin A1c Calcium Phosphorus Magnesium AST Alkaline Phosphatase Total Protein Albumin Urine WBC (Auto) Urine Creatinine 119.9 H Urine Total Protein 295 H Crossmatch 06/16/17 06/17/17 06/17/17 23:36 03:51 04:04 WBC 28.1 H RBC 2.61 L Hgb 7.1 L Hct 21.5 L MCH 27 L MCHC RDW 15.8 H Plt Count Lymph % (Auto) [place] % (Auto) [place] # Seg Neutrophils % Seg Neuts % (Manual) 90.5 H Lymphocytes % (Manual) 2.0 L Monocytes % (Manual) Basophils % (Manual) Nucleated RBC % Seg Neutrophils # Seg Neutrophils # Man 25.4 H Lymphocytes # (Manual) 0.6 L Monocytes # (Manual) 1.5 H Eosinophils # (Manual) Basophils # (Manual) POC ABG pH ABG pH 7.483 H POC ABG pCO2 POC ABG pO2 ABG pO2 144.0 H ABG Base Excess -2.1 L ABG Hemoglobin 6.5 L Oxyhemoglobin Sodium Potassium Chloride Carbon Dioxide BUN Creatinine Glucose POC Glucose 152 H Hemoglobin A1c Calcium Phosphorus Magnesium AST Alkaline Phosphatase Total Protein Albumin Urine WBC (Auto) Urine Creatinine Urine Total Protein Crossmatch 06/17/17 06/17/17 06/17/17 04:04 05:34 09:34 WBC RBC Hgb Hct MCH MCHC RDW Plt Count Lymph % (Auto) [place] % (Auto) [place] # Seg Neutrophils % Seg Neuts % (Manual) Lymphocytes % (Manual) Monocytes % (Manual) Basophils % (Manual) Nucleated RBC % Seg Neutrophils # Seg Neutrophils # Man Lymphocytes # (Manual) Monocytes # (Manual) Eosinophils # (Manual) Basophils # (Manual) POC ABG pH ABG pH POC ABG pCO2 POC ABG pO2 ABG pO2 ABG Base Excess ABG Hemoglobin Oxyhemoglobin Sodium 136 L Potassium Chloride Carbon Dioxide 20 L BUN 97 H Creatinine 2.7 H Glucose 151 H POC Glucose 203 H 243 H Hemoglobin A1c Calcium Phosphorus Magnesium AST Alkaline Phosphatase Total Protein Albumin Urine WBC (Auto) Urine Creatinine Urine Total Protein Crossmatch 06/17/17 06/17/17 06/17/17 12:36 17:24 21:36 WBC RBC Hgb Hct MCH MCHC RDW Plt Count Lymph % (Auto) [place] % (Auto) [place] # Seg Neutrophils % Seg Neuts % (Manual) Lymphocytes % (Manual) Monocytes % (Manual) Basophils % (Manual) Nucleated RBC % Seg Neutrophils # Seg Neutrophils # Man Lymphocytes # (Manual) Monocytes # (Manual) Eosinophils # (Manual) Basophils # (Manual) POC ABG pH ABG pH POC ABG pCO2 POC ABG pO2 ABG pO2 ABG Base Excess ABG Hemoglobin Oxyhemoglobin Sodium Potassium Chloride Carbon Dioxide BUN Creatinine Glucose POC Glucose 214 H 131 H 175 H Hemoglobin A1c Calcium Phosphorus Magnesium AST Alkaline Phosphatase Total Protein Albumin Urine WBC (Auto) Urine Creatinine Urine Total Protein Crossmatch 06/18/17 06/18/17 06/18/17 00:14 04:55 10:57 WBC RBC Hgb Hct MCH MCHC RDW Plt Count Lymph % (Auto) [place] % (Auto) [place] # Seg Neutrophils % Seg Neuts % (Manual) Lymphocytes % (Manual) Monocytes % (Manual) Basophils % (Manual) Nucleated RBC % Seg Neutrophils # Seg Neutrophils # Man Lymphocytes # (Manual) Monocytes # (Manual) Eosinophils # (Manual) Basophils # (Manual) POC ABG pH ABG pH POC ABG pCO2 POC ABG pO2 ABG pO2 ABG Base Excess ABG Hemoglobin Oxyhemoglobin Sodium 134 L Potassium Chloride Carbon Dioxide 19 L BUN 107 H Creatinine 2.7 H Glucose 196 H POC Glucose 171 H 161 H Hemoglobin A1c Calcium Phosphorus Magnesium AST Alkaline Phosphatase Total Protein Albumin Urine WBC (Auto) Urine Creatinine Urine Total Protein Crossmatch 06/18/17 06/18/17 06/19/17 17:31 23:25 04:24 WBC 33.8 H RBC 2.46 L Hgb 6.7 L Hct 20.0 L MCH 27 L MCHC RDW 15.4 H Plt Count Lymph % (Auto) [place] % (Auto) [place] # Seg Neutrophils % Seg Neuts % (Manual) 91.0 H Lymphocytes % (Manual) 2.0 L Monocytes % (Manual) Basophils % (Manual) Nucleated RBC % Seg Neutrophils # Seg Neutrophils # Man 30.8 H Lymphocytes # (Manual) 0.7 L Monocytes # (Manual) 2.0 H Eosinophils # (Manual) Basophils # (Manual) POC ABG pH ABG pH POC ABG pCO2 POC ABG pO2 ABG pO2 ABG Base Excess ABG Hemoglobin Oxyhemoglobin Sodium Potassium Chloride Carbon Dioxide BUN Creatinine Glucose POC Glucose 241 H 303 H Hemoglobin A1c Calcium Phosphorus Magnesium AST Alkaline Phosphatase Total Protein Albumin Urine WBC (Auto) Urine Creatinine Urine Total Protein Crossmatch 06/19/17 06/19/17 06/19/17 04:24 05:19 12:14 WBC RBC Hgb Hct MCH MCHC RDW Plt Count Lymph % (Auto) [place] % (Auto) [place] # Seg Neutrophils % Seg Neuts % (Manual) Lymphocytes % (Manual) Monocytes % (Manual) Basophils % (Manual) Nucleated RBC % Seg Neutrophils # Seg Neutrophils # Man Lymphocytes # (Manual) Monocytes # (Manual) Eosinophils # (Manual) Basophils # (Manual) POC ABG pH ABG pH POC ABG pCO2 POC ABG pO2 ABG pO2 ABG Base Excess ABG Hemoglobin Oxyhemoglobin Sodium 135 L Potassium Chloride 97.2 L Carbon Dioxide 20 L BUN 116 H Creatinine 3.1 H Glucose 220 H POC Glucose 238 H 224 H Hemoglobin A1c Calcium Phosphorus Magnesium AST Alkaline Phosphatase Total Protein Albumin Urine WBC (Auto) Urine Creatinine Urine Total Protein Crossmatch 06/19/17 06/19/17 06/20/17 16:45 16:50 04:34 WBC 36.4 H RBC 2.86 L Hgb 7.8 L Hct 24.4 L MCH 27 L MCHC RDW 16.2 H Plt Count 441 H Lymph % (Auto) [place] % (Auto) [place] # Seg Neutrophils % Seg Neuts % (Manual) 72.0 H Lymphocytes % (Manual) 9.0 L Monocytes % (Manual) 9.0 H Basophils % (Manual) Nucleated RBC % Seg Neutrophils # Seg Neutrophils # Man 26.2 H Lymphocytes # (Manual) Monocytes # (Manual) 3.3 H Eosinophils # (Manual) Basophils # (Manual) POC ABG pH ABG pH POC ABG pCO2 POC ABG pO2 ABG pO2 ABG Base Excess ABG Hemoglobin Oxyhemoglobin Sodium Potassium Chloride Carbon Dioxide BUN Creatinine Glucose POC Glucose 177 H Hemoglobin A1c Calcium Phosphorus Magnesium AST Alkaline Phosphatase Total Protein Albumin Urine WBC (Auto) Urine Creatinine Urine Total Protein Crossmatch See Detail 06/20/17 06/20/17 06/20/17 04:34 04:58 12:33 WBC RBC Hgb Hct MCH MCHC RDW Plt Count Lymph % (Auto) [place] % (Auto) [place] # Seg Neutrophils % Seg Neuts % (Manual) Lymphocytes % (Manual) Monocytes % (Manual) Basophils % (Manual) Nucleated RBC % Seg Neutrophils # Seg Neutrophils # Man Lymphocytes # (Manual) Monocytes # (Manual) Eosinophils # (Manual) Basophils # (Manual) POC ABG pH ABG pH POC ABG pCO2 POC ABG pO2 ABG pO2 ABG Base Excess ABG Hemoglobin Oxyhemoglobin Sodium Potassium Chloride Carbon Dioxide 18 L BUN 109 H Creatinine 2.8 H Glucose POC Glucose 108 H 130 H Hemoglobin A1c Calcium Phosphorus Magnesium AST Alkaline Phosphatase Total Protein Albumin Urine WBC (Auto) Urine Creatinine Urine Total Protein Crossmatch 06/20/17 06/20/17 06/21/17 17:06 23:33 05:23 WBC RBC Hgb Hct MCH MCHC RDW Plt Count Lymph % (Auto) [place] % (Auto) [place] # Seg Neutrophils % Seg Neuts % (Manual) Lymphocytes % (Manual) Monocytes % (Manual) Basophils % (Manual) Nucleated RBC % Seg Neutrophils # Seg Neutrophils # Man Lymphocytes # (Manual) Monocytes # (Manual) Eosinophils # (Manual) Basophils # (Manual) POC ABG pH ABG pH POC ABG pCO2 POC ABG pO2 ABG pO2 ABG Base Excess ABG Hemoglobin Oxyhemoglobin Sodium Potassium Chloride Carbon Dioxide 18 L BUN 105 H Creatinine 2.5 H Glucose 154 H POC Glucose 154 H 174 H Hemoglobin A1c Calcium Phosphorus Magnesium AST Alkaline Phosphatase Total Protein Albumin Urine WBC (Auto) Urine Creatinine Urine Total Protein Crossmatch 06/21/17 06/21/17 06/21/17 06:05 09:12 11:55 WBC RBC Hgb Hct MCH MCHC RDW Plt Count Lymph % (Auto) [place] % (Auto) [place] # Seg Neutrophils % Seg Neuts % (Manual) Lymphocytes % (Manual) Monocytes % (Manual) Basophils % (Manual) Nucleated RBC % Seg Neutrophils # Seg Neutrophils # Man Lymphocytes # (Manual) Monocytes # (Manual) Eosinophils # (Manual) Basophils # (Manual) POC ABG pH ABG pH POC ABG pCO2 POC ABG pO2 ABG pO2 ABG Base Excess ABG Hemoglobin Oxyhemoglobin Sodium Potassium Chloride Carbon Dioxide BUN Creatinine Glucose POC Glucose 168 H 183 H 174 H Hemoglobin A1c Calcium Phosphorus Magnesium AST Alkaline Phosphatase Total Protein Albumin Urine WBC (Auto) Urine Creatinine Urine Total Protein Crossmatch 06/21/17 06/21/17 06/21/17 16:52 17:10 23:45 WBC 28.0 H RBC 2.98 L Hgb 8.0 L Hct 26.1 L MCH 27 L MCHC RDW 16.6 H Plt Count Lymph % (Auto) [place] % (Auto) [place] # Seg Neutrophils % Seg Neuts % (Manual) Lymphocytes % (Manual) Monocytes % (Manual) Basophils % (Manual) Nucleated RBC % Seg Neutrophils # Seg Neutrophils # Man Lymphocytes # (Manual) Monocytes # (Manual) Eosinophils # (Manual) Basophils # (Manual) POC ABG pH ABG pH POC ABG pCO2 POC ABG pO2 ABG pO2 ABG Base Excess ABG Hemoglobin Oxyhemoglobin Sodium Potassium Chloride Carbon Dioxide BUN Creatinine Glucose POC Glucose 194 H 175 H Hemoglobin A1c Calcium Phosphorus Magnesium AST Alkaline Phosphatase Total Protein Albumin Urine WBC (Auto) Urine Creatinine Urine Total Protein Crossmatch 06/22/17 06/22/17 06/22/17 04:48 04:48 05:40 WBC 27.0 H RBC 2.88 L Hgb 7.9 L Hct 23.9 L MCH MCHC RDW 16.4 H Plt Count 493 H Lymph % (Auto) [place] % (Auto) [place] # Seg Neutrophils % Seg Neuts % (Manual) 91.0 H Lymphocytes % (Manual) 0 L Monocytes % (Manual) Basophils % (Manual) Nucleated RBC % 1.0 H Seg Neutrophils # Seg Neutrophils # Man 24.6 H Lymphocytes # (Manual) 0.0 L Monocytes # (Manual) 1.1 H Eosinophils # (Manual) 0.5 H Basophils # (Manual) POC ABG pH ABG pH POC ABG pCO2 POC ABG pO2 ABG pO2 ABG Base Excess ABG Hemoglobin Oxyhemoglobin Sodium Potassium Chloride Carbon Dioxide 19 L BUN 95 H Creatinine 2.3 H Glucose 159 H POC Glucose 172 H Hemoglobin A1c Calcium Phosphorus Magnesium AST Alkaline Phosphatase Total Protein Albumin Urine WBC (Auto) Urine Creatinine Urine Total Protein Crossmatch 06/22/17 06/22/17 06/23/17 12:09 22:08 04:41 WBC RBC Hgb Hct MCH MCHC RDW Plt Count Lymph % (Auto) [place] % (Auto) [place] # Seg Neutrophils % Seg Neuts % (Manual) Lymphocytes % (Manual) Monocytes % (Manual) Basophils % (Manual) Nucleated RBC % Seg Neutrophils # Seg Neutrophils # Man Lymphocytes # (Manual) Monocytes # (Manual) Eosinophils # (Manual) Basophils # (Manual) POC ABG pH ABG pH POC ABG pCO2 POC ABG pO2 ABG pO2 ABG Base Excess ABG Hemoglobin Oxyhemoglobin Sodium Potassium Chloride Carbon Dioxide BUN Creatinine Glucose POC Glucose 207 H 66 L Hemoglobin A1c Calcium Phosphorus Magnesium AST 41 H Alkaline Phosphatase 642 H Total Protein 5.5 L Albumin 2.0 L Urine WBC (Auto) Urine Creatinine Urine Total Protein Crossmatch 06/23/17 06/23/17 06/23/17 04:41 04:41 05:36 WBC 27.6 H RBC 2.89 L Hgb 7.8 L Hct 23.6 L MCH 27 L MCHC RDW 16.3 H Plt Count 499 H Lymph % (Auto) [place] % (Auto) [place] # Seg Neutrophils % Seg Neuts % (Manual) 95.0 H Lymphocytes % (Manual) 0 L Monocytes % (Manual) Basophils % (Manual) Nucleated RBC % Seg Neutrophils # Seg Neutrophils # Man 26.2 H Lymphocytes # (Manual) 0.0 L Monocytes # (Manual) Eosinophils # (Manual) Basophils # (Manual) POC ABG pH ABG pH POC ABG pCO2 POC ABG pO2 ABG pO2 ABG Base Excess ABG Hemoglobin Oxyhemoglobin Sodium Potassium Chloride Carbon Dioxide 19 L BUN 90 H Creatinine 2.1 H Glucose POC Glucose 109 H Hemoglobin A1c Calcium 8.3 L Phosphorus Magnesium AST Alkaline Phosphatase Total Protein Albumin Urine WBC (Auto) Urine Creatinine Urine Total Protein Crossmatch 06/23/17 06/23/17 06/24/17 12:14 17:33 00:10 WBC RBC Hgb Hct MCH MCHC RDW Plt Count Lymph % (Auto) [place] % (Auto) [place] # Seg Neutrophils % Seg Neuts % (Manual) Lymphocytes % (Manual) Monocytes % (Manual) Basophils % (Manual) Nucleated RBC % Seg Neutrophils # Seg Neutrophils # Man Lymphocytes # (Manual) Monocytes # (Manual) Eosinophils # (Manual) Basophils # (Manual) POC ABG pH ABG pH POC ABG pCO2 POC ABG pO2 ABG pO2 ABG Base Excess ABG Hemoglobin Oxyhemoglobin Sodium Potassium Chloride Carbon Dioxide BUN Creatinine Glucose POC Glucose 147 H 194 H 196 H Hemoglobin A1c Calcium Phosphorus Magnesium AST Alkaline Phosphatase Total Protein Albumin Urine WBC (Auto) Urine Creatinine Urine Total Protein Crossmatch 06/24/17 06/24/17 00:40 05:40 WBC RBC Hgb Hct MCH MCHC RDW Plt Count Lymph % (Auto) [place] % (Auto) [place] # Seg Neutrophils % Seg Neuts % (Manual) Lymphocytes % (Manual) Monocytes % (Manual) Basophils % (Manual) Nucleated RBC % Seg Neutrophils # Seg Neutrophils # Man Lymphocytes # (Manual) Monocytes # (Manual) Eosinophils # (Manual) Basophils # (Manual) POC ABG pH ABG pH POC ABG pCO2 POC ABG pO2 ABG pO2 ABG Base Excess ABG Hemoglobin Oxyhemoglobin Sodium Potassium Chloride Carbon Dioxide BUN Creatinine Glucose POC Glucose 168 H 180 H Hemoglobin A1c Calcium Phosphorus Magnesium AST Alkaline Phosphatase Total Protein Albumin Urine WBC (Auto) Urine Creatinine Urine Total Protein Crossmatch
--- NOTE | 2017-06-24 13:18 | Progress Note ---
Assessment and Plan - Patient Problems (1) Acute renal failure with tubular necrosis Current Visit: Yes Status: Acute Plan to address problem: Non-Oliguric Acute renal failure/acute tubular necrosis. Kidney function was improving. No labs today. Follow kidney function and electrolytes on diuretics. (2) Acute respiratory failure Current Visit: Yes Status: Acute Qualifiers: Respiratory failure complication: hypoxia Qualified Code(s): J96.01 - Acute respiratory failure with hypoxia Plan to address problem: Continue Ventilator management by primary attending (3) Acute systolic heart failure Current Visit: Yes Status: Acute Plan to address problem: Continue diuretics and beta jas. ARAM inhibitor/angiotensin receptor jas contraindicated due to her history of allergy (4) Hyperosmolar non-ketotic state in patient with type 2 diabetes mellitus Current Visit: Yes Status: Acute Plan to address problem: Blood sugar management by primary attending (5) Hypertension Current Visit: Yes Status: Acute Qualifiers: Hypertension type: essential hypertension Qualified Code(s): I10 - Essential (primary) hypertension Plan to address problem: Blood pressure has improved. Follow blood pressure on current medications Subjective Date of service: 06/24/17 Principal diagnosis: coma Interval history: Patient seen lying in bed in the intensive care unit this morning. Trach intact On ventilator. Not communicating. Not following commands. No family at bedside Objective - Exam Narrative Exam: Young -[place] female lying in bed trach intact on ventilator HEENT: NCAT, Neck: Supple, no venous distention CVS: S1S2 RRR with no murmur, rub or gallop Chest: Coarse breath sounds with Low pitched rhonchi bilaterally Abdomen: Protuberant, soft, nontender, no organomegaly, bowel sounds are present Extremities: 1+ bilateral edema both upper and lower extremities Neuro: Eyes open, not following commands - Vital Signs Vital signs: Vital Signs - 12hr 06/24/17 06/24/17 06/24/17 02:00 03:00 03:45 Temperature 98.7 F Pulse Rate 97 H 94 H Respiratory 17 24 Rate Blood Pressure 143/87 148/88 O2 Sat by Pulse 100 Oximetry O2 Sat by Pulse Oximetry [ Assessment] 06/24/17 06/24/17 06/24/17 03:51 04:00 05:00 Temperature Pulse Rate 94 H 98 H Respiratory 29 H 24 28 H Rate Blood Pressure 154/77 162/85 O2 Sat by Pulse 99 99 94 Oximetry O2 Sat by Pulse Oximetry [ Assessment] 06/24/17 06/24/17 06/24/17 05:11 06:00 07:00 Temperature Pulse Rate 97 H 100 H 97 H Respiratory 31 H 25 H Rate Blood Pressure 162/85 141/70 139/72 O2 Sat by Pulse 96 95 Oximetry O2 Sat by Pulse Oximetry [ Assessment] 06/24/17 06/24/17 06/24/17 08:00 09:00 09:23 Temperature 97.8 F Pulse Rate 100 H 96 H Respiratory 30 H 29 H Rate Blood Pressure 138/78 143/75 O2 Sat by Pulse 95 94 96 Oximetry O2 Sat by Pulse 97 Oximetry [ Assessment] 06/24/17 06/24/17 10:00 10:56 Temperature Pulse Rate 96 H 92 H Respiratory 30 H Rate Blood Pressure 146/79 146/79 O2 Sat by Pulse 94 Oximetry O2 Sat by Pulse Oximetry [ Assessment] - Lab 06/23/17 04:41 06/23/17 04:41 Most recent lab results ABG pH 7.483 pH Units (7.350-7.450) H 06/17/17 03:51 ABG pCO2 28.7 mm Hg 06/17/17 03:51 ABG pO2 144.0 mm Hg (80.0-90.0) H 06/17/17 03:51 ABG HCO3 21.1 mmol/L (20.0-26.0) 06/17/17 03:51 ABG O2 Saturation 98.9 % (95.0-99.0) 06/17/17 03:51 Calcium 8.3 mg/dL (8.4-10.2) L 06/23/17 04:41 Phosphorus 4.10 mg/dL (2.5-4.5) 06/21/17 05:23 Magnesium 1.70 mg/dL (1.7-2.3) 06/07/17 07:51 Urine Creatinine 119.9 mg/dL (0.1-20.0) H 06/16/17 08:26 Urine Sodium 39 mmol/L 06/16/17 08:26 Urine Total Protein 295 mg/dL (5-11.8) H 06/16/17 08:26
[2017-06-24] MEDS: LASIX PO SCH (15:42)
--- NOTE | 2017-06-24 15:48 | Progress Note ---
Assessment and Plan Assessment and plan: 36-year-old -Ira[place] female was admitted to the floor for seizure episode, altered mental status, acute hypoxic respiratory failure, patient was intubated in the emergency department patient had PEA and resuscitated successfully. Acute cardiopulmonary arrest, status post CPR 05/30/17. Acute hypoxic respiratory - Acute respiratory failure. Intubated 05/30/17, s/p trach and PEG tube 06/11/17. Acute encephalopathy due to anoxic brain injury - Supportive care Seizure disorder, Generalized tonic-clonic seizures on admission. -Patient is on Keppra Diabetes mellitus with hyperglycemia - Patient is on sliding scale insulin and long-acting insulin Malnutrition - Patient needs G-tube placement Hypertension - Continue home medications\ Sepsis - On empiric antibiotics with flagyl and cefepime DVT prophylaxis Disposition - Pending ICU bed - Continue ICU care. Patient needs LTAC placement History Interval history: Patient was seen and evaluated this morning, patient is on trach and PEG, comatose Hospitalist Physical - Physical exam Narrative exam: Patient is on PEG and trach. The patient appeared well nourished and normally developed. Vital signs as documented. Head exam is unremarkable. No scleral icterus . Neck is without jugular venous distension, thyromegaly, or carotid bruits. Lungs are clear to auscultation. Cardiac exam reveals regular rate and Rhythm. First and second heart sounds normal. No murmurs, rubs or gallops. Abdominal exam reveals normal bowel sounds, no masses, no organomegaly and no aortic enlargement. Extremities are nonedematous and both femoral and pedal pulses are normal. 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 - Constitutional Vitals: Temp Pulse Resp BP Pulse Ox 97.8 F 92 H 30 H 146/79 98 06/24/17 08:00 06/24/17 10:56 06/24/17 10:00 06/24/17 10:56 06/24/17 14:17 General appearance: Present: other (unresponsive, on the ventilator) Results - Labs CBC & Chem 7: 06/23/17 04:41 06/23/17 04:41 Labs: Laboratory Last Values WBC 27.6 K/mm3 (4.5-11.0) H 06/23/17 04:41 RBC 2.89 M/mm3 (3.65-5.03) L 06/23/17 04:41 Hgb 7.8 gm/dl (10.1-14.3) L 06/23/17 04:41 Hct 23.6 % (30.3-42.9) L 06/23/17 04:41 MCV 82 fl (79-97) 06/23/17 04:41 MCH 27 pg (28-32) L 06/23/17 04:41 MCHC 33 % (30-34) 06/23/17 04:41 RDW 16.3 % (13.2-15.2) H 06/23/17 04:41 Plt Count 499 K/mm3 (140-440) H 06/23/17 04:41 Lymph % (Auto) 7.3 % (13.4-35.0) L 06/04/17 04:05 [place] % (Auto) 10.8 % (0.0-7.3) H 06/04/17 04:05 Eos % (Auto) 0.1 % (0.0-4.3) 06/04/17 04:05 Baso % (Auto) 0.4 % (0.0-1.8) 06/04/17 04:05 Lymph # 1.4 K/mm3 (1.2-5.4) 06/04/17 04:05 [place] # 2.1 K/mm3 (0.0-0.8) H 06/04/17 04:05 Eos # 0.0 K/mm3 (0.0-0.4) 06/04/17 04:05 Baso # 0.1 K/mm3 (0.0-0.1) 06/04/17 04:05 Add Manual Diff Complete 06/23/17 04:41 Total Counted 200 06/23/17 04:41 Seg Neutrophils % Knife Glazer 06/20/17 04:34 Seg Neuts % (Manual) 95.0 % (40.0-70.0) H 06/23/17 04:41 Band Neutrophils % 0 % 06/23/17 04:41 Lymphocytes % (Manual) 0 % (13.4-35.0) L 06/23/17 04:41 Reactive Lymphs % (Man) 0 % 06/23/17 04:41 Monocytes % (Manual) 2.5 % (0.0-7.3) 06/23/17 04:41 Eosinophils % (Manual) 1.0 % (0.0-4.3) 06/23/17 04:41 Basophils % (Manual) 0 % (0.0-1.8) 06/23/17 04:41 Metamyelocytes % 0 % 06/23/17 04:41 Myelocytes % 1.5 % 06/23/17 04:41 Promyelocytes % 0 % 06/23/17 04:41 Blast Cells % 0 % 06/23/17 04:41 Nucleated RBC % Not Reportable 06/23/17 04:41 Seg Neutrophils # 15.9 K/mm3 (1.8-7.7) H 06/04/17 04:05 Seg Neutrophils # Man 26.2 K/mm3 (1.8-7.7) H 06/23/17 04:41 Band Neutrophils # 0.0 K/mm3 06/23/17 04:41 Lymphocytes # (Manual) 0.0 K/mm3 (1.2-5.4) L 06/23/17 04:41 Abs React Lymphs (Man) 0.0 K/mm3 06/23/17 04:41 Monocytes # (Manual) 0.7 K/mm3 (0.0-0.8) 06/23/17 04:41 Eosinophils # (Manual) 0.3 K/mm3 (0.0-0.4) 06/23/17 04:41 Basophils # (Manual) 0.0 K/mm3 (0.0-0.1) 06/23/17 04:41 Metamyelocytes # 0.0 K/mm3 06/23/17 04:41 Myelocytes # 0.4 K/mm3 06/23/17 04:41 Promyelocytes # 0.0 K/mm3 06/23/17 04:41 Blast Cells # 0.0 K/mm3 06/23/17 04:41 WBC Morphology Not Reportable 06/23/17 04:41 Hypersegmented Neuts Not Reportable 06/23/17 04:41 Hyposegmented Neuts Not Reportable 06/23/17 04:41 Hypogranular Neuts Not Reportable 06/23/17 04:41 Smudge Cells Not Reportable 06/23/17 04:41 Toxic Granulation Not Reportable 06/23/17 04:41 Toxic Vacuolation Not Reportable 06/23/17 04:41 Dohle Bodies Not Reportable 06/23/17 04:41 Pelger-Huet Anomaly Not Reportable 06/23/17 04:41 Don Rods Not Reportable 06/23/17 04:41 Platelet Estimate Appears increased 06/23/17 04:41 Clumped Platelets Not Reportable 06/23/17 04:41 Plt Clumps, EDTA Not Reportable 06/23/17 04:41 Large Platelets Not Reportable 06/23/17 04:41 Giant Platelets Not Reportable 06/23/17 04:41 Platelet Satelliting Not Reportable 06/23/17 04:41 Plt Morphology Comment Not Reportable 06/23/17 04:41 RBC Morphology Not Reportable 06/23/17 04:41 Dimorphic RBCs Not Reportable 06/23/17 04:41 Polychromasia Not Reportable 06/23/17 04:41 Hypochromasia Not Reportable 06/23/17 04:41 Poikilocytosis Not Reportable 06/23/17 04:41 Basophilic Stippling Few 06/22/17 04:48 Anisocytosis Not Reportable 06/23/17 04:41 Microcytosis Not Reportable 06/23/17 04:41 Macrocytosis Not Reportable 06/23/17 04:41 Spherocytes Not Reportable 06/23/17 04:41 Pappenheimer Bodies Not Reportable 06/23/17 04:41 Sickle Cells Not Reportable 06/23/17 04:41 Target Cells Not Reportable 06/23/17 04:41 Tear Drop Cells Not Reportable 06/23/17 04:41 Ovalocytes Not Reportable 06/23/17 04:41 Helmet Cells Not Reportable 06/23/17 04:41 [place] Bodies Not Reportable 06/23/17 04:41 Walker Rings Not Reportable 06/23/17 04:41 Arley Cells Not Reportable 06/23/17 04:41 Bite Cells Not Reportable 06/23/17 04:41 Crenated Cell Not Reportable 06/23/17 04:41 Elliptocytes Not Reportable 06/23/17 04:41 Acanthocytes (Spur) Not Reportable 06/23/17 04:41 Rouleaux Not Reportable 06/23/17 04:41 Hemoglobin C Crystals Not Reportable 06/23/17 04:41 Schistocytes Not Reportable 06/23/17 04:41 Malaria parasites Not Reportable 06/23/17 04:41 Fadi Bodies Not Reportable 06/23/17 04:41 Hem Pathologist Commnt No 06/23/17 04:41 PT 12.4 Sec. (12.2-14.9) 06/09/17 04:18 INR 0.88 (0.87-1.13) 06/09/17 04:18 POC ABG pH 7.461 (7.35-7.45) H 06/10/17 03:24 ABG pH 7.483 pH Units (7.350-7.450) H 06/17/17 03:51 POC ABG pCO2 36.6 (35-45) 06/10/17 03:24 ABG pCO2 28.7 mm Hg 06/17/17 03:51 POC ABG pO2 131 (80-105) H 06/10/17 03:24 ABG pO2 144.0 mm Hg (80.0-90.0) H 06/17/17 03:51 POC ABG HCO3 26.1 06/10/17 03:24 ABG HCO3 21.1 mmol/L (20.0-26.0) 06/17/17 03:51 POC ABG Total CO2 27 06/10/17 03:24 POC ABG O2 Sat 99 06/10/17 03:24 ABG O2 Saturation 98.9 % (95.0-99.0) 06/17/17 03:51 ABG O2 Content 9.1 (0.0-44) 06/17/17 03:51 POC ABG Base Excess 2 06/10/17 03:24 ABG Base Excess -2.1 mmol/L (-2.0-3.0) L 06/17/17 03:51 ABG Hemoglobin 6.5 gm/dl (12.0-16.0) L 06/17/17 03:51 ABG Carboxyhemoglobin 1.9 % (0.0-5.0) 06/17/17 03:51 ABG Methemoglobin 0.4 % (0.0-1.5) 06/17/17 03:51 VBG pH 7.327 (7.320-7.420) 05/30/17 10:43 Oxyhemoglobin 96.6 % (95.0-99.0) 06/17/17 03:51 FiO2 28 % 06/17/17 03:51 Sodium 141 mmol/L (137-145) 06/23/17 04:41 Potassium 4.5 mmol/L (3.6-5.0) 06/23/17 04:41 Chloride 104.5 mmol/L (98-107) 06/23/17 04:41 Carbon Dioxide 19 mmol/L (22-30) L 06/23/17 04:41 Anion Gap 22 mmol/L 06/23/17 04:41 BUN 90 mg/dL (7-17) H 06/23/17 04:41 Creatinine 2.1 mg/dL (0.7-1.2) H 06/23/17 04:41 Estimated GFR 32 ml/min 06/23/17 04:41 BUN/Creatinine Ratio 43 % 06/23/17 04:41 Glucose 91 mg/dL (65-100) 06/23/17 04:41 POC Glucose 190 (70-105) H 06/24/17 12:06 Hemoglobin A1c 9.7 % (4-6) H 05/31/17 05:45 Calcium 8.3 mg/dL (8.4-10.2) L 06/23/17 04:41 Phosphorus 4.10 mg/dL (2.5-4.5) 06/21/17 05:23 Magnesium 1.70 mg/dL (1.7-2.3) 06/07/17 07:51 Total Bilirubin 0.30 mg/dL (0.1-1.2) 06/23/17 04:41 Direct Bilirubin < 0.2 mg/dL (0-0.2) 06/23/17 04:41 Indirect Bilirubin 0.1 mg/dL 06/23/17 04:41 AST 41 units/L (5-40) H 06/23/17 04:41 ALT 40 units/L (7-56) 06/23/17 04:41 Alkaline Phosphatase 642 units/L (35-129) H 06/23/17 04:41 Total Protein 5.5 g/dL (6.3-8.2) L 06/23/17 04:41 Albumin 2.0 g/dL (3.9-5) L 06/23/17 04:41 Albumin/Globulin Ratio 0.6 % 06/23/17 04:41 Urine Color Yellow (Yellow) 06/16/17 08:26 Urine Turbidity Clear (Clear) 06/16/17 08:26 Urine pH 5.0 (5.0-7.0) 06/16/17 08:26 Ur Specific [place] 1.017 (1.003-1.030) 06/16/17 08:26 Urine Protein 100 mg/dl mg/dL (Negative) 06/16/17 08:26 Urine Glucose (UA) Neg mg/dL (Negative) 06/16/17 08:26 Urine Ketones Neg mg/dL (Negative) 06/16/17 08:26 Urine Blood Sm (Negative) 06/16/17 08:26 Urine Nitrite Neg (Negative) 06/16/17 08:26 Urine Bilirubin Neg (Negative) 06/16/17 08:26 Urine Urobilinogen < 2.0 mg/dL (<2.0) 06/16/17 08:26 Ur Leukocyte Esterase Lg (Negative) 06/16/17 08:26 Urine WBC (Auto) > 182.0 /HPF (0.0-6.0) H 06/16/17 08:26 Urine RBC (Auto) > 182.0 /HPF (0.0-6.0) 06/16/17 08:26 U Epithel Cells (Auto) 13.0 /HPF (0-13.0) 06/16/17 08:26 Urine Bacteria (Auto) 4+ /HPF (Negative) 06/16/17 08:26 Urine WBC Clumps 3+ /HPF 06/16/17 08:26 Ur Transition Epith Cell 3 /HPF 06/16/17 08:26 Urine Mucus 1+ /HPF 06/16/17 08:26 Ur Yeast w Hyphae 3+ /HPF 06/16/17 08:26 Urine Yeast (Budding) 3+ /HPF 06/16/17 08:26 Urine Eosinophils 5% (None Seen) 06/16/17 08:26 Urine Creatinine 119.9 mg/dL (0.1-20.0) H 06/16/17 08:26 Urine Sodium 39 mmol/L 06/16/17 08:26 Urine Total Protein 295 mg/dL (5-11.8) H 06/16/17 08:26 Random Vancomycin 19 ug/mL (0-40.0) 06/20/17 04:34 Urine Opiates Screen Presumptive negative 05/30/17 15:04 Urine Methadone Screen Presumptive negative 05/30/17 15:04 Ur Barbiturates Screen Presumptive negative 05/30/17 15:04 Levetiracetam 21.2 mcg/mL 05/30/17 08:59 Ur Phencyclidine Scrn Presumptive negative 05/30/17 15:04 Ur Amphetamines Screen Presumptive negative 05/30/17 15:04 U Benzodiazepines Scrn Presumptive negative 05/30/17 15:04 Urine Cocaine Screen Presumptive negative 05/30/17 15:04 U Marijuana (THC) Screen Presumptive positive 05/30/17 15:04 Drugs of Abuse Note Disclamer 05/30/17 15:04 Blood Type B NEGATIVE 06/19/17 16:50 Antibody Screen Negative 06/19/17 16:50 Crossmatch See Detail 06/19/17 16:50
[2017-06-24] MEDS: D5/0.45NS 1,000 ML IV SCH (20:13)
[2017-06-25] MEDS: COREG PO SCH ×2 (01:49→11:20)
[2017-06-25] MEDS: APRESOLINE PO SCH ×2 (01:50→06:39)
[2017-06-25] MEDS: ROBINUL FEEDTUBE SCH ×2 (01:50→11:19)
[2017-06-25] MEDS: ISORDIL TITRADOSE PO SCH ×2 (01:52→06:38)
[2017-06-25] MEDS: KEPPRA PO SCH ×2 (01:53→11:19)
[2017-06-25] MEDS: FLAGYL 500 MG/100 ML 500 MG/100 ML BAG IV SCH ×2 (01:55→06:39)
[2017-06-25] MEDS: HumaLOG SUB-Q SCH ×3 (02:00→12:38)
[2017-06-25 04:53] LABS: Hematocrit 28.7 % (30.3-42.9); Hemoglobin 9.5 gm/dl (10.1-14.3); Mean Corpuscular HGB Conc 33 % (30-34); Mean Corpuscular Hemoglobin 27 pg (28-32); Mean Corpuscular Volume 83 fl (79-97); Platelet Count 559 K/mm3 (140-440); Red Blood Count 3.47 M/mm3 (3.65-5.03); Red Cell Distribution Width 16.3 % (13.2-15.2)
[2017-06-25 05:09] LABS: Albumin 1.9 g/dL (3.9-5); Calcium 8.5 mg/dL (8.4-10.2)
[2017-06-25 06:28] LABS: Band Neutrophils # (Manual) 0.2 K/mm3; Basophils % (Manual) 0 % (0.0-1.8); Monocytes % (Manual) 3.5 % (0.0-7.3); Total Cells Counted 200
--- NOTE | 2017-06-25 07:21 | Progress Note ---
Assessment and Plan Assessment: 1) Acute cardiopulmonary arrest, status post CPR 05/30/17. 2) Acute respiratory failure. Intubated 05/30/17, s/p trach and G tube 06/11/17. 3) Pneumonia s/p bronch 06/17/17 with RUL atelectasis and partial mucous plugging RUL. BAL cx with K. pneumoniae and Serratia marcescens. -CXR 06/22 Stable. -Tracheal aspirate cx 06/22 Klebsiella pneumoniae 4) Generalized tonic-clonic seizures on admission. 5) Acute/worsening Leukocytosis. Multifactorial. Overall better. 6) Intermittent fever. Afebrile now. 7) Acute encephalopathy due to anoxic brain injury. 8) Malfunctioning G tube. 9) Diarrhea with rectal tube in place. Improved. 10) JERRI/ATN. 11) Elevated LFTs. 12) Acute sphenoid sinusitis and mild Left mastoiditis on MRI Brain 06/03/17. 13) Uncontrolled type 2 DM Recommendations: -Will f/u final tracheal aspirate culture. -Continue cefepime (D103/29). -Continue empiric flagyl (). -IR consulted to change G tube to GJ tube. Will get done tomorrow or Thursday. -Monitor CBC, CMP. -d/w MANAGER OF RECRUITING. -Will get transfer to LTAC on the 6th floor. Gertrude Beasley MD Infectious Diseases Specialist [facility], [place], [facility]ated [facility] ([facility]) M [phone] Subjective Date of service: 06/25/17 Principal diagnosis: coma Interval history: Afebrile. Microbiology Blood cultures 05/31/17 negative 06/21/17 NGTD Sputum 05/30 normal tato 06/22 TA Klebsiella pneumoniae BAL culture 06/17/17 Klebsiella pneumonia and Serratia marcescens Antimicrobials Cefepime 06/15/17- Flagyl 06/22- Prior antimicrobials Zosyn 05/31-06/02/17 Vancomycin 05/31-06/02/17 Cefazolin 06/11/17 IV vancomycin 06/15/17- Objective - Exam Narrative Exam: General appearance: Pt in NAD, T- piece, off sedation, not responsive. Eyes: anicteric sclerae, moist conjunctivae; pupils sluggish. HENT: Atraumatic. Trach in place. Neck: Supple. Lungs: CTA, with normal respiratory effort and no intercostal retractions CV: S1,S2. Abdomen: +BS. ND. G tube in place, induration around G-tube. Rectal: rectal tube in place. : blas catheter in place. Extremities: Hands edema. Skin: Normal temperature, turgor and texture; no rash, ulcers or subcutaneous nodules Psych: Not responsive. Neuro: Not responsive, off sedation. Lines: RUE midline. - Constitutional Vitals: Vital Signs Temp Pulse Resp BP Pulse Ox 98.1 F 89 23 159/80 100 06/25/17 04:00 06/25/17 06:39 06/25/17 06:00 06/25/17 06:39 06/25/17 06:00 Temperature -Last 24 Hours Temperature 98.1 F Temperature 97.0 F Temperature 97.0 F Temperature 98.2 F Temperature 97.8 F - Labs CBC & Chem 7: 06/25/17 04:14 06/25/17 04:14 Labs: Abnormal lab results 06/24/17 06/24/17 06/25/17 Range/Units 12:06 17:51 00:31 WBC (4.5-11.0) K/mm3 RBC (3.65-5.03) M/mm3 Hgb (10.1-14.3) gm/dl Hct (30.3-42.9) % MCH (28-32) pg RDW (13.2-15.2) % Plt Count (140-440) K/mm3 Seg Neuts % (Manual) (40.0-70.0) % Lymphocytes % (Manual) (13.4-35.0) % Seg Neutrophils # Man (1.8-7.7) K/mm3 Lymphocytes # (Manual) (1.2-5.4) K/mm3 Eosinophils # (Manual) (0.0-0.4) K/mm3 Carbon Dioxide (22-30) mmol/L BUN (7-17) mg/dL Creatinine (0.7-1.2) mg/dL Glucose (65-100) mg/dL POC Glucose 190 H 199 H 217 H (70-105) Alkaline Phosphatase (35-129) units/L Albumin (3.9-5) g/dL 06/25/17 06/25/17 06/25/17 Range/Units 04:14 04:14 05:59 WBC 20.5 H (4.5-11.0) K/mm3 RBC 3.47 L (3.65-5.03) M/mm3 Hgb 9.5 L (10.1-14.3) gm/dl Hct 28.7 L (30.3-42.9) % MCH 27 L (28-32) pg RDW 16.3 H (13.2-15.2) % Plt Count 559 H (140-440) K/mm3 Seg Neuts % (Manual) 88.0 H (40.0-70.0) % Lymphocytes % (Manual) 4.5 L (13.4-35.0) % Seg Neutrophils # Man 18.0 H (1.8-7.7) K/mm3 Lymphocytes # (Manual) 0.9 L (1.2-5.4) K/mm3 Eosinophils # (Manual) 0.6 H (0.0-0.4) K/mm3 Carbon Dioxide 20 L (22-30) mmol/L BUN 77 H (7-17) mg/dL Creatinine 1.9 H (0.7-1.2) mg/dL Glucose 193 H (65-100) mg/dL POC Glucose 224 H (70-105) Alkaline Phosphatase 549 H (35-129) units/L Albumin 1.9 L (3.9-5) g/dL
--- NOTE | 2017-06-25 08:30 | Progress Note ---
Assessment and Plan - Patient Problems (1) Acute renal failure with tubular necrosis Current Visit: Yes Status: Acute Plan to address problem: Non-Oliguric Acute renal failure/acute tubular necrosis. Kidney function is improving. Follow up kidney function and electrolytes on diuretics. (2) Acute respiratory failure Current Visit: Yes Status: Acute Qualifiers: Respiratory failure complication: hypoxia Qualified Code(s): J96.01 - Acute respiratory failure with hypoxia Plan to address problem: Continue Ventilator management by primary attending (3) Acute systolic heart failure Current Visit: Yes Status: Acute Plan to address problem: Continue diuretics and beta jas. ARAM inhibitor/angiotensin receptor jas contraindicated due to her history of allergy (4) Hyperosmolar non-ketotic state in patient with type 2 diabetes mellitus Current Visit: Yes Status: Acute Plan to address problem: Blood sugar management by primary attending (5) Hypertension Current Visit: Yes Status: Acute Qualifiers: Hypertension type: essential hypertension Qualified Code(s): I10 - Essential (primary) hypertension Plan to address problem: Blood pressure has improved. Follow blood pressure on current medications Subjective Date of service: 06/25/17 Principal diagnosis: coma Interval history: Patient seen lying in bed in the intensive care unit this morning. Trach intact On ventilator. Not communicating. Not following commands. No family at bedside Objective - Exam Narrative Exam: Young -Mal[place]ian female lying in bed trach intact on T-piece HEENT: NCAT, Neck: Supple, no venous distention CVS: S1S2 RRR with no murmur, rub or gallop Chest: Coarse breath sounds with Low pitched rhonchi bilaterally Abdomen: Protuberant, soft, nontender, no organomegaly, bowel sounds are present Extremities: 1+ bilateral edema both upper and lower extremities Neuro: Eyes open, not following commands - Vital Signs Vital signs: Vital Signs - 12hr 06/24/17 06/24/17 06/24/17 21:00 22:00 22:06 Temperature Pulse Rate 85 84 84 Respiratory 21 19 19 Rate Blood Pressure 150/81 141/75 141/75 O2 Sat by Pulse 99 99 99 Oximetry O2 Sat by Pulse Oximetry [ Assessment] 06/24/17 06/25/17 06/25/17 23:00 00:00 00:30 Temperature 97.0 F L Pulse Rate 87 87 Respiratory 20 18 Rate Blood Pressure 149/78 145/76 O2 Sat by Pulse 96 98 Oximetry O2 Sat by Pulse 100 Oximetry [ Assessment] 06/25/17 06/25/17 06/25/17 01:00 01:49 01:50 Temperature Pulse Rate 86 87 89 Respiratory 20 Rate Blood Pressure 155/80 154/86 156/82 O2 Sat by Pulse 97 Oximetry O2 Sat by Pulse Oximetry [ Assessment] 06/25/17 06/25/17 06/25/17 01:52 02:00 03:00 Temperature Pulse Rate 56 L 91 H 86 Respiratory 24 20 Rate Blood Pressure 156/82 148/91 146/71 O2 Sat by Pulse 98 100 Oximetry O2 Sat by Pulse Oximetry [ Assessment] 06/25/17 06/25/17 06/25/17 04:00 05:00 06:00 Temperature 98.1 F Pulse Rate 83 88 89 Respiratory 18 23 23 Rate Blood Pressure 154/82 148/82 148/82 O2 Sat by Pulse 95 97 100 Oximetry O2 Sat by Pulse Oximetry [ Assessment] 06/25/17 06/25/17 06/25/17 06:38 06:39 07:49 Temperature 97.6 F Pulse Rate 89 89 Respiratory Rate Blood Pressure 159/80 159/80 O2 Sat by Pulse Oximetry O2 Sat by Pulse Oximetry [ Assessment] - Lab 06/25/17 04:14 06/25/17 04:14 Most recent lab results ABG pH 7.483 pH Units (7.350-7.450) H 06/17/17 03:51 ABG pCO2 28.7 mm Hg 06/17/17 03:51 ABG pO2 144.0 mm Hg (80.0-90.0) H 06/17/17 03:51 ABG HCO3 21.1 mmol/L (20.0-26.0) 06/17/17 03:51 ABG O2 Saturation 98.9 % (95.0-99.0) 06/17/17 03:51 Calcium 8.5 mg/dL (8.4-10.2) 06/25/17 04:14 Phosphorus 4.10 mg/dL (2.5-4.5) 06/21/17 05:23 Magnesium 1.70 mg/dL (1.7-2.3) 06/07/17 07:51 Urine Creatinine 119.9 mg/dL (0.1-20.0) H 06/16/17 08:26 Urine Sodium 39 mmol/L 06/16/17 08:26 Urine Total Protein 295 mg/dL (5-11.8) H 06/16/17 08:26
[2017-06-25] MEDS ORDERED: MAXIPIME 2 GM in NACL 0.9% 20 ML IV SCH (10:00)
[2017-06-25] MEDS ORDERED: PEPCID PO SCH ×2 (10:00)
[2017-06-25] MEDS ORDERED: LOVENOX SUB-Q SCH (10:00)
[2017-06-25] MEDS: D5/0.45NS 1,000 ML IV SCH ×2 (11:20→12:40)
--- NOTE | 2017-06-25 11:22 | Event Note ---
Date: 06/25/17 Consulted by general surgery for conversion of G tube to GJ tube. I tried to contact the patient's mother and the patient's spouse multiple times , but they did not corn picker. Consent cannot be obtained at this time. Resume tube feeds. IR will attempt again to contact patient's family. Will plan on G to GJ conversion on thursday or thursday.
[2017-06-25] MEDS: LASIX PO SCH (11:29)
[2017-06-25] MEDS: MAXIPIME 2 GM in NACL 0.9% 20 ML IV SCH (12:36)
--- NOTE | 2017-06-25 12:39 | Progress Note ---
Assessment and Plan 36 y/o female with acute respiratory failure secondary to metabolic encephalopathy, thought to be from seizures, s/p cardiac arrest. 1. Continue T-piece 2. has sent referral to LTACH. Awaiting insurance, per nursing will go to LTACH later today. 3. PT/OT if possible 4. Blood sugar control 5. Per surgery, will need a g-j tube Subjective Date of service: 06/25/17 Principal diagnosis: coma Interval history: No acute events. Tolerating T-piece well. Has not required vent in 48 hours. Objective Vital Signs - 12hr 06/25/17 06/25/17 06/25/17 01:00 01:49 01:50 Temperature Pulse Rate 86 87 89 Respiratory 20 Rate Blood Pressure 155/80 154/86 156/82 O2 Sat by Pulse 97 Oximetry O2 Sat by Pulse Oximetry [ Assessment] 06/25/17 06/25/17 06/25/17 01:52 02:00 03:00 Temperature Pulse Rate 56 L 91 H 86 Respiratory 24 20 Rate Blood Pressure 156/82 148/91 146/71 O2 Sat by Pulse 98 100 Oximetry O2 Sat by Pulse Oximetry [ Assessment] 06/25/17 06/25/17 06/25/17 04:00 05:00 06:00 Temperature 98.1 F Pulse Rate 83 88 89 Respiratory 18 23 23 Rate Blood Pressure 154/82 148/82 148/82 O2 Sat by Pulse 95 97 100 Oximetry O2 Sat by Pulse Oximetry [ Assessment] 06/25/17 06/25/17 06/25/17 06:38 06:39 07:00 Temperature Pulse Rate 89 89 89 Respiratory 13 Rate Blood Pressure 159/80 159/80 145/79 O2 Sat by Pulse 98 Oximetry O2 Sat by Pulse Oximetry [ Assessment] 06/25/17 06/25/17 06/25/17 07:49 08:00 09:00 Temperature 97.6 F Pulse Rate 81 84 Respiratory 18 21 Rate Blood Pressure 145/82 145/82 O2 Sat by Pulse 99 Oximetry O2 Sat by Pulse Oximetry [ Assessment] 06/25/17 06/25/17 06/25/17 09:30 10:00 10:15 Temperature Pulse Rate 104 H Respiratory 33 H Rate Blood Pressure 135/84 O2 Sat by Pulse 97 99 Oximetry O2 Sat by Pulse 98 Oximetry [ Assessment] 06/25/17 06/25/17 11:20 11:41 Temperature 98.0 F Pulse Rate 94 H Respiratory Rate Blood Pressure 117/60 O2 Sat by Pulse Oximetry O2 Sat by Pulse Oximetry [ Assessment] Constitutional: other (mild breathing difficulty) Eyes: non-icteric ENT: oropharynx moist, other (trach in position) Neck: supple, no JVD Effort: normal Ascultation: Right: rales, rhonchi (mild), Bilateral: clear, diminished breath sounds, other (coarse BS bilaterally) Percussion: Bilateral: not dull Cardiovascular: regular rate and rhythm Gastrointestinal: normoactive bowel sounds, soft, non-tender Integumentary: normal Extremities: no cyanosis, no edema, pink and warm Neurologic: other (unresponsive, rolls her eyes sporadically no posturing. Unchanged) Psychiatric: other CBC and BMP: 06/25/17 04:14 06/25/17 04:14 ABG, PT/INR, D-dimer: ABG POC ABG pH 7.461 (7.35-7.45) H 06/10/17 03:24 ABG pH 7.483 pH Units (7.350-7.450) H 06/17/17 03:51 POC ABG pCO2 36.6 (35-45) 06/10/17 03:24 ABG pCO2 28.7 mm Hg 06/17/17 03:51 POC ABG pO2 131 (80-105) H 06/10/17 03:24 ABG pO2 144.0 mm Hg (80.0-90.0) H 06/17/17 03:51 POC ABG HCO3 26.1 06/10/17 03:24 POC ABG Total CO2 27 06/10/17 03:24 POC ABG O2 Sat 99 06/10/17 03:24 ABG O2 Saturation 98.9 % (95.0-99.0) 06/17/17 03:51 PT/INR, D-dimer PT 12.4 Sec. (12.2-14.9) 06/09/17 04:18 INR 0.88 (0.87-1.13) 06/09/17 04:18 Abnormal lab findings: Abnormal Labs 05/30/17 05/30/17 05/30/17 07:48 07:48 08:32 WBC 11.5 H RBC Hgb Hct MCH 27 L MCHC RDW 16.3 H Plt Count Lymph % (Auto) [place] % (Auto) [place] # Seg Neutrophils % Seg Neuts % (Manual) Lymphocytes % (Manual) Monocytes % (Manual) Basophils % (Manual) Nucleated RBC % Seg Neutrophils # Seg Neutrophils # Man Lymphocytes # (Manual) Monocytes # (Manual) Eosinophils # (Manual) Basophils # (Manual) POC ABG pH ABG pH POC ABG pCO2 POC ABG pO2 ABG pO2 ABG Base Excess ABG Hemoglobin Oxyhemoglobin Sodium 133 L Potassium Chloride 89.9 L Carbon Dioxide BUN 27 H Creatinine 2.0 H Glucose 741 H* POC Glucose > 500 H Hemoglobin A1c Calcium Phosphorus Magnesium AST Alkaline Phosphatase Total Protein Albumin Urine WBC (Auto) Urine Creatinine Urine Total Protein Crossmatch 05/30/17 05/30/17 05/30/17 08:59 08:59 16:08 WBC 14.5 H RBC Hgb Hct MCH MCHC RDW 16.0 H Plt Count Lymph % (Auto) [place] % (Auto) [place] # Seg Neutrophils % Seg Neuts % (Manual) 95.0 H Lymphocytes % (Manual) 2.0 L Monocytes % (Manual) Basophils % (Manual) 2.0 H Nucleated RBC % Seg Neutrophils # Seg Neutrophils # Man 13.8 H Lymphocytes # (Manual) 0.3 L Monocytes # (Manual) Eosinophils # (Manual) Basophils # (Manual) 0.3 H POC ABG pH ABG pH POC ABG pCO2 POC ABG pO2 ABG pO2 ABG Base Excess ABG Hemoglobin Oxyhemoglobin Sodium 134 L 135 L Potassium 3.2 L Chloride 90.8 L 93.6 L Carbon Dioxide BUN 28 H 30 H Creatinine 2.0 H 2.1 H Glucose 742 H* 567 H* POC Glucose Hemoglobin A1c Calcium Phosphorus Magnesium AST Alkaline Phosphatase 246 H Total Protein 5.6 L Albumin 2.9 L Urine WBC (Auto) Urine Creatinine Urine Total Protein Crossmatch 05/30/17 05/30/17 05/30/17 16:35 17:55 18:59 WBC RBC Hgb Hct MCH MCHC RDW Plt Count Lymph % (Auto) [place] % (Auto) [place] # Seg Neutrophils % Seg Neuts % (Manual) Lymphocytes % (Manual) Monocytes % (Manual) Basophils % (Manual) Nucleated RBC % Seg Neutrophils # Seg Neutrophils # Man Lymphocytes # (Manual) Monocytes # (Manual) Eosinophils # (Manual) Basophils # (Manual) POC ABG pH 7.544 H ABG pH POC ABG pCO2 32.0 L POC ABG pO2 155 H ABG pO2 ABG Base Excess ABG Hemoglobin Oxyhemoglobin Sodium Potassium 3.1 L Chloride 93.9 L Carbon Dioxide BUN 30 H Creatinine 2.0 H Glucose 561 H* POC Glucose 497 H Hemoglobin A1c Calcium Phosphorus Magnesium AST Alkaline Phosphatase Total Protein Albumin Urine WBC (Auto) Urine Creatinine Urine Total Protein Crossmatch 05/30/17 05/30/17 05/30/17 19:31 19:31 21:38 WBC RBC Hgb Hct MCH MCHC RDW Plt Count Lymph % (Auto) [place] % (Auto) [place] # Seg Neutrophils % Seg Neuts % (Manual) Lymphocytes % (Manual) Monocytes % (Manual) Basophils % (Manual) Nucleated RBC % Seg Neutrophils # Seg Neutrophils # Man Lymphocytes # (Manual) Monocytes # (Manual) Eosinophils # (Manual) Basophils # (Manual) POC ABG pH ABG pH POC ABG pCO2 POC ABG pO2 ABG pO2 ABG Base Excess ABG Hemoglobin Oxyhemoglobin Sodium 135 L Potassium 2.9 L* Chloride 93.8 L 95.4 L Carbon Dioxide 20 L BUN 29 H 30 H Creatinine 2.2 H 2.3 H Glucose 478 H 364 H POC Glucose Hemoglobin A1c Calcium Phosphorus 2.20 L D Magnesium 1.40 L AST 42 H Alkaline Phosphatase 177 H Total Protein 5.4 L Albumin 2.4 L Urine WBC (Auto) Urine Creatinine Urine Total Protein Crossmatch 05/30/17 05/31/17 05/31/17 23:06 02:17 05:27 WBC RBC Hgb Hct MCH MCHC RDW Plt Count Lymph % (Auto) [place] % (Auto) [place] # Seg Neutrophils % Seg Neuts % (Manual) Lymphocytes % (Manual) Monocytes % (Manual) Basophils % (Manual) Nucleated RBC % Seg Neutrophils # Seg Neutrophils # Man Lymphocytes # (Manual) Monocytes # (Manual) Eosinophils # (Manual) Basophils # (Manual) POC ABG pH 7.489 H ABG pH POC ABG pCO2 POC ABG pO2 ABG pO2 ABG Base Excess ABG Hemoglobin Oxyhemoglobin Sodium Potassium 3.2 L 3.5 L Chloride Carbon Dioxide BUN 30 H 31 H Creatinine 2.5 H 2.4 H Glucose 288 H 246 H POC Glucose Hemoglobin A1c Calcium 8.3 L Phosphorus Magnesium AST Alkaline Phosphatase Total Protein Albumin Urine WBC (Auto) Urine Creatinine Urine Total Protein Crossmatch 05/31/17 05/31/17 05/31/17 05:45 05:45 05:45 WBC RBC Hgb Hct MCH MCHC RDW Plt Count Lymph % (Auto) [place] % (Auto) [place] # Seg Neutrophils % Seg Neuts % (Manual) Lymphocytes % (Manual) Monocytes % (Manual) Basophils % (Manual) Nucleated RBC % Seg Neutrophils # Seg Neutrophils # Man Lymphocytes # (Manual) Monocytes # (Manual) Eosinophils # (Manual) Basophils # (Manual) POC ABG pH ABG pH POC ABG pCO2 POC ABG pO2 ABG pO2 ABG Base Excess ABG Hemoglobin Oxyhemoglobin Sodium Potassium Chloride Carbon Dioxide BUN 32 H 30 H Creatinine 2.5 H 2.6 H Glucose 266 H 271 H POC Glucose Hemoglobin A1c 9.7 H Calcium 8.3 L 8.2 L Phosphorus Magnesium AST Alkaline Phosphatase 145 H Total Protein 4.7 L Albumin 1.8 L Urine WBC (Auto) Urine Creatinine Urine Total Protein Crossmatch 05/31/17 05/31/17 05/31/17 08:18 09:20 12:18 WBC RBC Hgb Hct MCH MCHC RDW Plt Count Lymph % (Auto) [place] % (Auto) [place] # Seg Neutrophils % Seg Neuts % (Manual) Lymphocytes % (Manual) Monocytes % (Manual) Basophils % (Manual) Nucleated RBC % Seg Neutrophils # Seg Neutrophils # Man Lymphocytes # (Manual) Monocytes # (Manual) Eosinophils # (Manual) Basophils # (Manual) POC ABG pH ABG pH POC ABG pCO2 POC ABG pO2 ABG pO2 ABG Base Excess ABG Hemoglobin Oxyhemoglobin Sodium Potassium Chloride Carbon Dioxide BUN Creatinine Glucose POC Glucose 300 H 254 H 170 H Hemoglobin A1c Calcium Phosphorus Magnesium AST Alkaline Phosphatase Total Protein Albumin Urine WBC (Auto) Urine Creatinine Urine Total Protein Crossmatch 05/31/17 05/31/17 05/31/17 14:09 14:17 14:27 WBC RBC Hgb Hct MCH MCHC RDW Plt Count Lymph % (Auto) [place] % (Auto) [place] # Seg Neutrophils % Seg Neuts % (Manual) Lymphocytes % (Manual) Monocytes % (Manual) Basophils % (Manual) Nucleated RBC % Seg Neutrophils # Seg Neutrophils # Man Lymphocytes # (Manual) Monocytes # (Manual) Eosinophils # (Manual) Basophils # (Manual) POC ABG pH ABG pH POC ABG pCO2 POC ABG pO2 ABG pO2 ABG Base Excess ABG Hemoglobin Oxyhemoglobin Sodium Potassium 3.4 L Chloride 107.1 H Carbon Dioxide BUN 30 H Creatinine 2.6 H Glucose 38 L* POC Glucose < 40 L 189 H Hemoglobin A1c Calcium 7.6 L Phosphorus Magnesium AST Alkaline Phosphatase Total Protein Albumin Urine WBC (Auto) Urine Creatinine Urine Total Protein Crossmatch 05/31/17 05/31/17 05/31/17 15:01 16:01 17:19 WBC RBC Hgb Hct MCH MCHC RDW Plt Count Lymph % (Auto) [place] % (Auto) [place] # Seg Neutrophils % Seg Neuts % (Manual) Lymphocytes % (Manual) Monocytes % (Manual) Basophils % (Manual) Nucleated RBC % Seg Neutrophils # Seg Neutrophils # Man Lymphocytes # (Manual) Monocytes # (Manual) Eosinophils # (Manual) Basophils # (Manual) POC ABG pH ABG pH POC ABG pCO2 POC ABG pO2 ABG pO2 ABG Base Excess ABG Hemoglobin Oxyhemoglobin Sodium Potassium Chloride Carbon Dioxide BUN Creatinine Glucose POC Glucose 130 H 165 H 131 H Hemoglobin A1c Calcium Phosphorus Magnesium AST Alkaline Phosphatase Total Protein Albumin Urine WBC (Auto) Urine Creatinine Urine Total Protein Crossmatch 05/31/17 05/31/17 05/31/17 18:46 19:54 20:36 WBC RBC Hgb Hct MCH MCHC RDW Plt Count Lymph % (Auto) [place] % (Auto) [place] # Seg Neutrophils % Seg Neuts % (Manual) Lymphocytes % (Manual) Monocytes % (Manual) Basophils % (Manual) Nucleated RBC % Seg Neutrophils # Seg Neutrophils # Man Lymphocytes # (Manual) Monocytes # (Manual) Eosinophils # (Manual) Basophils # (Manual) POC ABG pH ABG pH POC ABG pCO2 POC ABG pO2 ABG pO2 ABG Base Excess ABG Hemoglobin Oxyhemoglobin Sodium Potassium Chloride Carbon Dioxide BUN 29 H Creatinine 2.4 H Glucose 124 H POC Glucose 128 H 157 H Hemoglobin A1c Calcium 7.9 L Phosphorus Magnesium AST Alkaline Phosphatase Total Protein Albumin Urine WBC (Auto) Urine Creatinine Urine Total Protein Crossmatch 05/31/17 06/01/17 06/01/17 21:41 03:22 04:06 WBC RBC Hgb Hct MCH MCHC RDW Plt Count Lymph % (Auto) [place] % (Auto) [place] # Seg Neutrophils % Seg Neuts % (Manual) Lymphocytes % (Manual) Monocytes % (Manual) Basophils % (Manual) Nucleated RBC % Seg Neutrophils # Seg Neutrophils # Man Lymphocytes # (Manual) Monocytes # (Manual) Eosinophils # (Manual) Basophils # (Manual) POC ABG pH ABG pH POC ABG pCO2 POC ABG pO2 ABG pO2 ABG Base Excess ABG Hemoglobin Oxyhemoglobin Sodium Potassium Chloride Carbon Dioxide 19 L BUN 29 H Creatinine 2.6 H Glucose 205 H POC Glucose 158 H 251 H Hemoglobin A1c Calcium 7.8 L Phosphorus Magnesium AST Alkaline Phosphatase Total Protein Albumin Urine WBC (Auto) Urine Creatinine Urine Total Protein Crossmatch 06/01/17 06/01/17 06/01/17 04:30 09:15 09:59 WBC 19.7 H RBC Hgb 10.0 L Hct MCH 27 L MCHC RDW 17.1 H Plt Count Lymph % (Auto) [place] % (Auto) [place] # Seg Neutrophils % Seg Neuts % (Manual) Lymphocytes % (Manual) Monocytes % (Manual) Basophils % (Manual) Nucleated RBC % Seg Neutrophils # Seg Neutrophils # Man Lymphocytes # (Manual) Monocytes # (Manual) Eosinophils # (Manual) Basophils # (Manual) POC ABG pH 7.464 H ABG pH POC ABG pCO2 31.3 L POC ABG pO2 ABG pO2 ABG Base Excess ABG Hemoglobin Oxyhemoglobin Sodium Potassium Chloride Carbon Dioxide BUN Creatinine Glucose POC Glucose 330 H Hemoglobin A1c Calcium Phosphorus Magnesium AST Alkaline Phosphatase Total Protein Albumin Urine WBC (Auto) Urine Creatinine Urine Total Protein Crossmatch 06/01/17 06/01/17 06/01/17 11:36 12:25 13:43 WBC RBC Hgb Hct MCH MCHC RDW Plt Count Lymph % (Auto) [place] % (Auto) [place] # Seg Neutrophils % Seg Neuts % (Manual) Lymphocytes % (Manual) Monocytes % (Manual) Basophils % (Manual) Nucleated RBC % Seg Neutrophils # Seg Neutrophils # Man Lymphocytes # (Manual) Monocytes # (Manual) Eosinophils # (Manual) Basophils # (Manual) POC ABG pH ABG pH POC ABG pCO2 POC ABG pO2 ABG pO2 ABG Base Excess ABG Hemoglobin Oxyhemoglobin Sodium Potassium Chloride Carbon Dioxide BUN Creatinine Glucose POC Glucose 431 H 434 H 445 H Hemoglobin A1c Calcium Phosphorus Magnesium AST Alkaline Phosphatase Total Protein Albumin Urine WBC (Auto) Urine Creatinine Urine Total Protein Crossmatch 06/01/17 06/01/17 06/01/17 14:26 15:46 16:03 WBC RBC Hgb Hct MCH MCHC RDW Plt Count Lymph % (Auto) [place] % (Auto) [place] # Seg Neutrophils % Seg Neuts % (Manual) Lymphocytes % (Manual) Monocytes % (Manual) Basophils % (Manual) Nucleated RBC % Seg Neutrophils # Seg Neutrophils # Man Lymphocytes # (Manual) Monocytes # (Manual) Eosinophils # (Manual) Basophils # (Manual) POC ABG pH ABG pH POC ABG pCO2 POC ABG pO2 ABG pO2 ABG Base Excess ABG Hemoglobin Oxyhemoglobin Sodium Potassium Chloride Carbon Dioxide BUN Creatinine Glucose POC Glucose 310 H 292 H 244 H Hemoglobin A1c Calcium Phosphorus Magnesium AST Alkaline Phosphatase Total Protein Albumin Urine WBC (Auto) Urine Creatinine Urine Total Protein Crossmatch 06/01/17 06/01/17 06/01/17 16:59 17:49 19:05 WBC RBC Hgb Hct MCH MCHC RDW Plt Count Lymph % (Auto) [place] % (Auto) [place] # Seg Neutrophils % Seg Neuts % (Manual) Lymphocytes % (Manual) Monocytes % (Manual) Basophils % (Manual) Nucleated RBC % Seg Neutrophils # Seg Neutrophils # Man Lymphocytes # (Manual) Monocytes # (Manual) Eosinophils # (Manual) Basophils # (Manual) POC ABG pH ABG pH POC ABG pCO2 POC ABG pO2 ABG pO2 ABG Base Excess ABG Hemoglobin Oxyhemoglobin Sodium Potassium Chloride Carbon Dioxide BUN Creatinine Glucose POC Glucose 260 H 203 H 156 H Hemoglobin A1c Calcium Phosphorus Magnesium AST Alkaline Phosphatase Total Protein Albumin Urine WBC (Auto) Urine Creatinine Urine Total Protein Crossmatch 06/02/17 06/02/17 06/02/17 00:09 01:06 02:31 WBC RBC Hgb Hct MCH MCHC RDW Plt Count Lymph % (Auto) [place] % (Auto) [place] # Seg Neutrophils % Seg Neuts % (Manual) Lymphocytes % (Manual) Monocytes % (Manual) Basophils % (Manual) Nucleated RBC % Seg Neutrophils # Seg Neutrophils # Man Lymphocytes # (Manual) Monocytes # (Manual) Eosinophils # (Manual) Basophils # (Manual) POC ABG pH ABG pH POC ABG pCO2 POC ABG pO2 ABG pO2 ABG Base Excess ABG Hemoglobin Oxyhemoglobin Sodium Potassium Chloride Carbon Dioxide BUN Creatinine Glucose POC Glucose 137 H 146 H 182 H Hemoglobin A1c Calcium Phosphorus Magnesium AST Alkaline Phosphatase Total Protein Albumin Urine WBC (Auto) Urine Creatinine Urine Total Protein Crossmatch 06/02/17 06/02/17 06/02/17 04:03 04:24 04:24 WBC 21.0 H RBC 3.62 L Hgb Hct 29.6 L MCH MCHC RDW 16.5 H Plt Count Lymph % (Auto) [place] % (Auto) [place] # Seg Neutrophils % Seg Neuts % (Manual) 98.0 H Lymphocytes % (Manual) 1.0 L Monocytes % (Manual) Basophils % (Manual) Nucleated RBC % Seg Neutrophils # Seg Neutrophils # Man 20.6 H Lymphocytes # (Manual) 0.2 L Monocytes # (Manual) Eosinophils # (Manual) Basophils # (Manual) POC ABG pH ABG pH POC ABG pCO2 POC ABG pO2 ABG pO2 ABG Base Excess ABG Hemoglobin Oxyhemoglobin Sodium Potassium Chloride Carbon Dioxide 20 L BUN 36 H Creatinine 2.8 H Glucose 137 H POC Glucose 150 H Hemoglobin A1c Calcium 7.5 L Phosphorus 4.60 H Magnesium 1.50 L AST Alkaline Phosphatase 132 H Total Protein 4.1 L Albumin 1.7 L Urine WBC (Auto) Urine Creatinine Urine Total Protein Crossmatch 06/02/17 06/02/17 06/02/17 05:01 05:14 06:20 WBC RBC Hgb Hct MCH MCHC RDW Plt Count Lymph % (Auto) [place] % (Auto) [place] # Seg Neutrophils % Seg Neuts % (Manual) Lymphocytes % (Manual) Monocytes % (Manual) Basophils % (Manual) Nucleated RBC % Seg Neutrophils # Seg Neutrophils # Man Lymphocytes # (Manual) Monocytes # (Manual) Eosinophils # (Manual) Basophils # (Manual) POC ABG pH 7.517 H ABG pH POC ABG pCO2 28.4 L POC ABG pO2 67 L ABG pO2 ABG Base Excess ABG Hemoglobin Oxyhemoglobin Sodium Potassium Chloride Carbon Dioxide BUN Creatinine Glucose POC Glucose 137 H 163 H Hemoglobin A1c Calcium Phosphorus Magnesium AST Alkaline Phosphatase Total Protein Albumin Urine WBC (Auto) Urine Creatinine Urine Total Protein Crossmatch 06/02/17 06/02/17 06/02/17 07:43 09:40 10:18 WBC RBC Hgb Hct MCH MCHC RDW Plt Count Lymph % (Auto) [place] % (Auto) [place] # Seg Neutrophils % Seg Neuts % (Manual) Lymphocytes % (Manual) Monocytes % (Manual) Basophils % (Manual) Nucleated RBC % Seg Neutrophils # Seg Neutrophils # Man Lymphocytes # (Manual) Monocytes # (Manual) Eosinophils # (Manual) Basophils # (Manual) POC ABG pH ABG pH POC ABG pCO2 POC ABG pO2 ABG pO2 ABG Base Excess ABG Hemoglobin Oxyhemoglobin Sodium Potassium Chloride Carbon Dioxide BUN Creatinine Glucose POC Glucose 135 H 196 H Hemoglobin A1c Calcium Phosphorus Magnesium AST Alkaline Phosphatase Total Protein Albumin Urine WBC (Auto) Urine Creatinine Urine Total Protein < 4 L Crossmatch 06/02/17 06/02/17 06/02/17 10:33 11:55 17:39 WBC RBC Hgb Hct MCH MCHC RDW Plt Count Lymph % (Auto) [place] % (Auto) [place] # Seg Neutrophils % Seg Neuts % (Manual) Lymphocytes % (Manual) Monocytes % (Manual) Basophils % (Manual) Nucleated RBC % Seg Neutrophils # Seg Neutrophils # Man Lymphocytes # (Manual) Monocytes # (Manual) Eosinophils # (Manual) Basophils # (Manual) POC ABG pH ABG pH POC ABG pCO2 POC ABG pO2 ABG pO2 ABG Base Excess ABG Hemoglobin Oxyhemoglobin Sodium Potassium Chloride Carbon Dioxide BUN Creatinine Glucose POC Glucose 188 H 110 H 150 H Hemoglobin A1c Calcium Phosphorus Magnesium AST Alkaline Phosphatase Total Protein Albumin Urine WBC (Auto) Urine Creatinine Urine Total Protein Crossmatch 06/02/17 06/02/17 06/03/17 18:12 21:32 02:02 WBC RBC Hgb Hct MCH MCHC RDW Plt Count Lymph % (Auto) [place] % (Auto) [place] # Seg Neutrophils % Seg Neuts % (Manual) Lymphocytes % (Manual) Monocytes % (Manual) Basophils % (Manual) Nucleated RBC % Seg Neutrophils # Seg Neutrophils # Man Lymphocytes # (Manual) Monocytes # (Manual) Eosinophils # (Manual) Basophils # (Manual) POC ABG pH ABG pH POC ABG pCO2 POC ABG pO2 ABG pO2 ABG Base Excess ABG Hemoglobin Oxyhemoglobin Sodium Potassium Chloride Carbon Dioxide BUN Creatinine Glucose POC Glucose 131 H 143 H 191 H Hemoglobin A1c Calcium Phosphorus Magnesium AST Alkaline Phosphatase Total Protein Albumin Urine WBC (Auto) Urine Creatinine Urine Total Protein Crossmatch 06/03/17 06/03/17 06/03/17 04:14 04:14 05:06 WBC 21.1 H RBC Hgb Hct MCH 27 L MCHC RDW 15.9 H Plt Count 447 H Lymph % (Auto) [place] % (Auto) [place] # Seg Neutrophils % Seg Neuts % (Manual) 94.0 H Lymphocytes % (Manual) 3.0 L Monocytes % (Manual) Basophils % (Manual) Nucleated RBC % Seg Neutrophils # Seg Neutrophils # Man 19.8 H Lymphocytes # (Manual) 0.6 L Monocytes # (Manual) Eosinophils # (Manual) Basophils # (Manual) POC ABG pH ABG pH POC ABG pCO2 28.6 L POC ABG pO2 112 H ABG pO2 ABG Base Excess ABG Hemoglobin Oxyhemoglobin Sodium Potassium Chloride Carbon Dioxide 14 L BUN 45 H Creatinine 2.8 H Glucose 211 H POC Glucose Hemoglobin A1c Calcium 8.0 L Phosphorus Magnesium AST Alkaline Phosphatase Total Protein Albumin Urine WBC (Auto) Urine Creatinine Urine Total Protein Crossmatch 06/03/17 06/03/17 06/03/17 06:00 10:20 13:43 WBC RBC Hgb Hct MCH MCHC RDW Plt Count Lymph % (Auto) [place] % (Auto) [place] # Seg Neutrophils % Seg Neuts % (Manual) Lymphocytes % (Manual) Monocytes % (Manual) Basophils % (Manual) Nucleated RBC % Seg Neutrophils # Seg Neutrophils # Man Lymphocytes # (Manual) Monocytes # (Manual) Eosinophils # (Manual) Basophils # (Manual) POC ABG pH ABG pH POC ABG pCO2 POC ABG pO2 ABG pO2 ABG Base Excess ABG Hemoglobin Oxyhemoglobin Sodium Potassium Chloride Carbon Dioxide BUN Creatinine Glucose POC Glucose 224 H 226 H 296 H Hemoglobin A1c Calcium Phosphorus Magnesium AST Alkaline Phosphatase Total Protein Albumin Urine WBC (Auto) Urine Creatinine Urine Total Protein Crossmatch 06/03/17 06/03/17 06/03/17 17:38 19:23 20:45 WBC RBC Hgb Hct MCH MCHC RDW Plt Count Lymph % (Auto) [place] % (Auto) [place] # Seg Neutrophils % Seg Neuts % (Manual) Lymphocytes % (Manual) Monocytes % (Manual) Basophils % (Manual) Nucleated RBC % Seg Neutrophils # Seg Neutrophils # Man Lymphocytes # (Manual) Monocytes # (Manual) Eosinophils # (Manual) Basophils # (Manual) POC ABG pH ABG pH POC ABG pCO2 POC ABG pO2 ABG pO2 ABG Base Excess ABG Hemoglobin Oxyhemoglobin Sodium Potassium Chloride Carbon Dioxide BUN Creatinine Glucose POC Glucose 295 H 275 H 338 H Hemoglobin A1c Calcium Phosphorus Magnesium AST Alkaline Phosphatase Total Protein Albumin Urine WBC (Auto) Urine Creatinine Urine Total Protein Crossmatch 06/03/17 06/03/17 06/04/17 21:50 23:08 00:16 WBC RBC Hgb Hct MCH MCHC RDW Plt Count Lymph % (Auto) [place] % (Auto) [place] # Seg Neutrophils % Seg Neuts % (Manual) Lymphocytes % (Manual) Monocytes % (Manual) Basophils % (Manual) Nucleated RBC % Seg Neutrophils # Seg Neutrophils # Man Lymphocytes # (Manual) Monocytes # (Manual) Eosinophils # (Manual) Basophils # (Manual) POC ABG pH ABG pH POC ABG pCO2 POC ABG pO2 ABG pO2 ABG Base Excess ABG Hemoglobin Oxyhemoglobin Sodium Potassium Chloride Carbon Dioxide BUN Creatinine Glucose POC Glucose 223 H 214 H 226 H Hemoglobin A1c Calcium Phosphorus Magnesium AST Alkaline Phosphatase Total Protein Albumin Urine WBC (Auto) Urine Creatinine Urine Total Protein Crossmatch 06/04/17 06/04/17 06/04/17 01:05 02:07 03:27 WBC RBC Hgb Hct MCH MCHC RDW Plt Count Lymph % (Auto) [place] % (Auto) [place] # Seg Neutrophils % Seg Neuts % (Manual) Lymphocytes % (Manual) Monocytes % (Manual) Basophils % (Manual) Nucleated RBC % Seg Neutrophils # Seg Neutrophils # Man Lymphocytes # (Manual) Monocytes # (Manual) Eosinophils # (Manual) Basophils # (Manual) POC ABG pH ABG pH POC ABG pCO2 POC ABG pO2 ABG pO2 ABG Base Excess ABG Hemoglobin Oxyhemoglobin Sodium Potassium Chloride Carbon Dioxide BUN Creatinine Glucose POC Glucose 217 H 229 H 185 H Hemoglobin A1c Calcium Phosphorus Magnesium AST Alkaline Phosphatase Total Protein Albumin Urine WBC (Auto) Urine Creatinine Urine Total Protein Crossmatch 06/04/17 06/04/17 06/04/17 03:52 04:05 04:05 WBC 19.6 H RBC Hgb Hct MCH 26 L MCHC RDW 15.6 H Plt Count 564 H Lymph % (Auto) 7.3 L [place] % (Auto) 10.8 H [place] # 2.1 H Seg Neutrophils % 81.4 H Seg Neuts % (Manual) Lymphocytes % (Manual) Monocytes % (Manual) Basophils % (Manual) Nucleated RBC % Seg Neutrophils # 15.9 H Seg Neutrophils # Man Lymphocytes # (Manual) Monocytes # (Manual) Eosinophils # (Manual) Basophils # (Manual) POC ABG pH ABG pH POC ABG pCO2 POC ABG pO2 ABG pO2 ABG Base Excess ABG Hemoglobin Oxyhemoglobin Sodium Potassium Chloride Carbon Dioxide 17 L BUN 52 H Creatinine 2.5 H Glucose 163 H POC Glucose 181 H Hemoglobin A1c Calcium 7.9 L Phosphorus Magnesium AST Alkaline Phosphatase Total Protein Albumin Urine WBC (Auto) Urine Creatinine Urine Total Protein Crossmatch 06/04/17 06/04/17 06/04/17 04:56 05:39 06:12 WBC RBC Hgb Hct MCH MCHC RDW Plt Count Lymph % (Auto) [place] % (Auto) [place] # Seg Neutrophils % Seg Neuts % (Manual) Lymphocytes % (Manual) Monocytes % (Manual) Basophils % (Manual) Nucleated RBC % Seg Neutrophils # Seg Neutrophils # Man Lymphocytes # (Manual) Monocytes # (Manual) Eosinophils # (Manual) Basophils # (Manual) POC ABG pH 7.486 H ABG pH POC ABG pCO2 26.8 L POC ABG pO2 ABG pO2 ABG Base Excess ABG Hemoglobin Oxyhemoglobin Sodium Potassium Chloride Carbon Dioxide BUN Creatinine Glucose POC Glucose 208 H 225 H Hemoglobin A1c Calcium Phosphorus Magnesium AST Alkaline Phosphatase Total Protein Albumin Urine WBC (Auto) Urine Creatinine Urine Total Protein Crossmatch 06/04/17 06/04/17 06/04/17 07:07 08:06 09:15 WBC RBC Hgb Hct MCH MCHC RDW Plt Count Lymph % (Auto) [place] % (Auto) [place] # Seg Neutrophils % Seg Neuts % (Manual) Lymphocytes % (Manual) Monocytes % (Manual) Basophils % (Manual) Nucleated RBC % Seg Neutrophils # Seg Neutrophils # Man Lymphocytes # (Manual) Monocytes # (Manual) Eosinophils # (Manual) Basophils # (Manual) POC ABG pH ABG pH POC ABG pCO2 POC ABG pO2 ABG pO2 ABG Base Excess ABG Hemoglobin Oxyhemoglobin Sodium Potassium Chloride Carbon Dioxide BUN Creatinine Glucose POC Glucose 201 H 171 H 178 H Hemoglobin A1c Calcium Phosphorus Magnesium AST Alkaline Phosphatase Total Protein Albumin Urine WBC (Auto) Urine Creatinine Urine Total Protein Crossmatch 06/04/17 06/04/17 06/04/17 10:16 12:22 17:21 WBC RBC Hgb Hct MCH MCHC RDW Plt Count Lymph % (Auto) [place] % (Auto) [place] # Seg Neutrophils % Seg Neuts % (Manual) Lymphocytes % (Manual) Monocytes % (Manual) Basophils % (Manual) Nucleated RBC % Seg Neutrophils # Seg Neutrophils # Man Lymphocytes # (Manual) Monocytes # (Manual) Eosinophils # (Manual) Basophils # (Manual) POC ABG pH ABG pH POC ABG pCO2 POC ABG pO2 ABG pO2 ABG Base Excess ABG Hemoglobin Oxyhemoglobin Sodium Potassium Chloride Carbon Dioxide BUN Creatinine Glucose POC Glucose 191 H 188 H Hemoglobin A1c Calcium Phosphorus Magnesium AST Alkaline Phosphatase Total Protein Albumin Urine WBC (Auto) Urine Creatinine 78.7 H Urine Total Protein 197 H Crossmatch 06/04/17 06/04/17 06/05/17 17:56 22:10 00:00 WBC RBC Hgb Hct MCH MCHC RDW Plt Count Lymph % (Auto) [place] % (Auto) [place] # Seg Neutrophils % Seg Neuts % (Manual) Lymphocytes % (Manual) Monocytes % (Manual) Basophils % (Manual) Nucleated RBC % Seg Neutrophils # Seg Neutrophils # Man Lymphocytes # (Manual) Monocytes # (Manual) Eosinophils # (Manual) Basophils # (Manual) POC ABG pH ABG pH POC ABG pCO2 POC ABG pO2 ABG pO2 ABG Base Excess ABG Hemoglobin Oxyhemoglobin Sodium Potassium Chloride Carbon Dioxide 17 L BUN 55 H Creatinine 2.3 H Glucose 300 H POC Glucose 266 H 337 H Hemoglobin A1c Calcium 7.4 L Phosphorus Magnesium AST Alkaline Phosphatase Total Protein Albumin Urine WBC (Auto) Urine Creatinine Urine Total Protein Crossmatch 06/05/17 06/05/17 06/05/17 03:26 04:11 05:13 WBC RBC Hgb Hct MCH MCHC RDW Plt Count Lymph % (Auto) [place] % (Auto) [place] # Seg Neutrophils % Seg Neuts % (Manual) Lymphocytes % (Manual) Monocytes % (Manual) Basophils % (Manual) Nucleated RBC % Seg Neutrophils # Seg Neutrophils # Man Lymphocytes # (Manual) Monocytes # (Manual) Eosinophils # (Manual) Basophils # (Manual) POC ABG pH 7.586 H ABG pH POC ABG pCO2 22.6 L POC ABG pO2 179 H ABG pO2 ABG Base Excess ABG Hemoglobin Oxyhemoglobin Sodium Potassium Chloride Carbon Dioxide 19 L BUN 55 H Creatinine 2.2 H Glucose 226 H POC Glucose 220 H Hemoglobin A1c Calcium 7.7 L Phosphorus Magnesium AST Alkaline Phosphatase Total Protein Albumin Urine WBC (Auto) Urine Creatinine Urine Total Protein Crossmatch 06/05/17 06/05/17 06/05/17 12:42 18:24 21:23 WBC RBC Hgb Hct MCH MCHC RDW Plt Count Lymph % (Auto) [place] % (Auto) [place] # Seg Neutrophils % Seg Neuts % (Manual) Lymphocytes % (Manual) Monocytes % (Manual) Basophils % (Manual) Nucleated RBC % Seg Neutrophils # Seg Neutrophils # Man Lymphocytes # (Manual) Monocytes # (Manual) Eosinophils # (Manual) Basophils # (Manual) POC ABG pH ABG pH POC ABG pCO2 POC ABG pO2 ABG pO2 ABG Base Excess ABG Hemoglobin Oxyhemoglobin Sodium Potassium Chloride Carbon Dioxide BUN Creatinine Glucose POC Glucose 168 H 121 H 166 H Hemoglobin A1c Calcium Phosphorus Magnesium AST Alkaline Phosphatase Total Protein Albumin Urine WBC (Auto) Urine Creatinine Urine Total Protein Crossmatch 06/06/17 06/06/17 06/06/17 00:14 04:11 06:19 WBC RBC Hgb Hct MCH MCHC RDW Plt Count Lymph % (Auto) [place] % (Auto) [place] # Seg Neutrophils % Seg Neuts % (Manual) Lymphocytes % (Manual) Monocytes % (Manual) Basophils % (Manual) Nucleated RBC % Seg Neutrophils # Seg Neutrophils # Man Lymphocytes # (Manual) Monocytes # (Manual) Eosinophils # (Manual) Basophils # (Manual) POC ABG pH ABG pH POC ABG pCO2 33.0 L POC ABG pO2 ABG pO2 ABG Base Excess ABG Hemoglobin Oxyhemoglobin Sodium Potassium Chloride Carbon Dioxide BUN Creatinine Glucose POC Glucose 179 H 180 H Hemoglobin A1c Calcium Phosphorus Magnesium AST Alkaline Phosphatase Total Protein Albumin Urine WBC (Auto) Urine Creatinine Urine Total Protein Crossmatch 06/06/17 06/06/17 06/06/17 12:19 18:38 20:01 WBC RBC Hgb Hct MCH MCHC RDW Plt Count Lymph % (Auto) [place] % (Auto) [place] # Seg Neutrophils % Seg Neuts % (Manual) Lymphocytes % (Manual) Monocytes % (Manual) Basophils % (Manual) Nucleated RBC % Seg Neutrophils # Seg Neutrophils # Man Lymphocytes # (Manual) Monocytes # (Manual) Eosinophils # (Manual) Basophils # (Manual) POC ABG pH ABG pH POC ABG pCO2 POC ABG pO2 ABG pO2 ABG Base Excess ABG Hemoglobin Oxyhemoglobin Sodium Potassium Chloride Carbon Dioxide BUN Creatinine Glucose POC Glucose 123 H 56 L 65 L Hemoglobin A1c Calcium Phosphorus Magnesium AST Alkaline Phosphatase Total Protein Albumin Urine WBC (Auto) Urine Creatinine Urine Total Protein Crossmatch 06/06/17 06/07/17 06/07/17 23:51 04:25 05:29 WBC RBC Hgb Hct MCH MCHC RDW Plt Count Lymph % (Auto) [place] % (Auto) [place] # Seg Neutrophils % Seg Neuts % (Manual) Lymphocytes % (Manual) Monocytes % (Manual) Basophils % (Manual) Nucleated RBC % Seg Neutrophils # Seg Neutrophils # Man Lymphocytes # (Manual) Monocytes # (Manual) Eosinophils # (Manual) Basophils # (Manual) POC ABG pH 7.470 H ABG pH POC ABG pCO2 33.6 L POC ABG pO2 ABG pO2 ABG Base Excess ABG Hemoglobin Oxyhemoglobin Sodium Potassium Chloride Carbon Dioxide BUN Creatinine Glucose POC Glucose 118 H 183 H Hemoglobin A1c Calcium Phosphorus Magnesium AST Alkaline Phosphatase Total Protein Albumin Urine WBC (Auto) Urine Creatinine Urine Total Protein Crossmatch 06/07/17 06/07/17 06/07/17 07:51 12:00 18:08 WBC RBC Hgb Hct MCH MCHC RDW Plt Count Lymph % (Auto) [place] % (Auto) [place] # Seg Neutrophils % Seg Neuts % (Manual) Lymphocytes % (Manual) Monocytes % (Manual) Basophils % (Manual) Nucleated RBC % Seg Neutrophils # Seg Neutrophils # Man Lymphocytes # (Manual) Monocytes # (Manual) Eosinophils # (Manual) Basophils # (Manual) POC ABG pH ABG pH POC ABG pCO2 POC ABG pO2 ABG pO2 ABG Base Excess ABG Hemoglobin Oxyhemoglobin Sodium 135 L Potassium Chloride Carbon Dioxide 21 L BUN 50 H Creatinine 1.8 H Glucose 232 H POC Glucose 361 H 249 H Hemoglobin A1c Calcium 8.0 L Phosphorus Magnesium AST Alkaline Phosphatase Total Protein Albumin Urine WBC (Auto) Urine Creatinine Urine Total Protein Crossmatch 06/07/17 06/08/17 06/08/17 23:53 05:25 11:50 WBC RBC Hgb Hct MCH MCHC RDW Plt Count Lymph % (Auto) [place] % (Auto) [place] # Seg Neutrophils % Seg Neuts % (Manual) Lymphocytes % (Manual) Monocytes % (Manual) Basophils % (Manual) Nucleated RBC % Seg Neutrophils # Seg Neutrophils # Man Lymphocytes # (Manual) Monocytes # (Manual) Eosinophils # (Manual) Basophils # (Manual) POC ABG pH ABG pH POC ABG pCO2 POC ABG pO2 ABG pO2 ABG Base Excess ABG Hemoglobin Oxyhemoglobin Sodium Potassium Chloride Carbon Dioxide BUN Creatinine Glucose POC Glucose 190 H 136 H 166 H Hemoglobin A1c Calcium Phosphorus Magnesium AST Alkaline Phosphatase Total Protein Albumin Urine WBC (Auto) Urine Creatinine Urine Total Protein Crossmatch 06/08/17 06/08/17 06/08/17 14:20 14:20 19:05 WBC 15.7 H RBC 3.49 L Hgb 9.4 L Hct 27.9 L MCH 27 L MCHC RDW 15.3 H Plt Count 590 H Lymph % (Auto) [place] % (Auto) [place] # Seg Neutrophils % Seg Neuts % (Manual) Lymphocytes % (Manual) Monocytes % (Manual) Basophils % (Manual) Nucleated RBC % Seg Neutrophils # Seg Neutrophils # Man Lymphocytes # (Manual) Monocytes # (Manual) Eosinophils # (Manual) Basophils # (Manual) POC ABG pH ABG pH POC ABG pCO2 POC ABG pO2 ABG pO2 ABG Base Excess ABG Hemoglobin Oxyhemoglobin Sodium Potassium Chloride Carbon Dioxide BUN 55 H Creatinine 1.7 H Glucose 117 H POC Glucose 135 H Hemoglobin A1c Calcium Phosphorus Magnesium AST Alkaline Phosphatase Total Protein Albumin Urine WBC (Auto) Urine Creatinine Urine Total Protein Crossmatch 06/08/17 06/08/17 06/09/17 21:52 23:55 04:18 WBC RBC Hgb Hct MCH MCHC RDW Plt Count Lymph % (Auto) [place] % (Auto) [place] # Seg Neutrophils % Seg Neuts % (Manual) Lymphocytes % (Manual) Monocytes % (Manual) Basophils % (Manual) Nucleated RBC % Seg Neutrophils # Seg Neutrophils # Man Lymphocytes # (Manual) Monocytes # (Manual) Eosinophils # (Manual) Basophils # (Manual) POC ABG pH ABG pH POC ABG pCO2 POC ABG pO2 ABG pO2 ABG Base Excess ABG Hemoglobin Oxyhemoglobin Sodium Potassium Chloride Carbon Dioxide BUN 51 H Creatinine 1.6 H Glucose POC Glucose 186 H 209 H Hemoglobin A1c Calcium Phosphorus Magnesium AST Alkaline Phosphatase Total Protein Albumin Urine WBC (Auto) Urine Creatinine Urine Total Protein Crossmatch 06/09/17 06/09/17 06/09/17 09:56 12:42 18:09 WBC RBC Hgb Hct MCH MCHC RDW Plt Count Lymph % (Auto) [place] % (Auto) [place] # Seg Neutrophils % Seg Neuts % (Manual) Lymphocytes % (Manual) Monocytes % (Manual) Basophils % (Manual) Nucleated RBC % Seg Neutrophils # Seg Neutrophils # Man Lymphocytes # (Manual) Monocytes # (Manual) Eosinophils # (Manual) Basophils # (Manual) POC ABG pH ABG pH POC ABG pCO2 POC ABG pO2 ABG pO2 ABG Base Excess ABG Hemoglobin Oxyhemoglobin Sodium Potassium Chloride Carbon Dioxide BUN Creatinine Glucose POC Glucose 63 L 142 H 166 H Hemoglobin A1c Calcium Phosphorus Magnesium AST Alkaline Phosphatase Total Protein Albumin Urine WBC (Auto) Urine Creatinine Urine Total Protein Crossmatch 06/09/17 06/10/17 06/10/17 23:39 03:24 04:28 WBC 15.1 H RBC 2.99 L Hgb 8.1 L Hct 23.6 L MCH 27 L MCHC 35 H RDW 15.4 H Plt Count 500 H Lymph % (Auto) [place] % (Auto) [place] # Seg Neutrophils % Seg Neuts % (Manual) Lymphocytes % (Manual) Monocytes % (Manual) Basophils % (Manual) Nucleated RBC % Seg Neutrophils # Seg Neutrophils # Man Lymphocytes # (Manual) Monocytes # (Manual) Eosinophils # (Manual) Basophils # (Manual) POC ABG pH 7.461 H ABG pH POC ABG pCO2 POC ABG pO2 131 H ABG pO2 ABG Base Excess ABG Hemoglobin Oxyhemoglobin Sodium Potassium Chloride Carbon Dioxide BUN Creatinine Glucose POC Glucose 284 H Hemoglobin A1c Calcium Phosphorus Magnesium AST Alkaline Phosphatase Total Protein Albumin Urine WBC (Auto) Urine Creatinine Urine Total Protein Crossmatch 06/10/17 06/10/17 06/10/17 04:28 05:10 12:41 WBC RBC Hgb Hct MCH MCHC RDW Plt Count Lymph % (Auto) [place] % (Auto) [place] # Seg Neutrophils % Seg Neuts % (Manual) Lymphocytes % (Manual) Monocytes % (Manual) Basophils % (Manual) Nucleated RBC % Seg Neutrophils # Seg Neutrophils # Man Lymphocytes # (Manual) Monocytes # (Manual) Eosinophils # (Manual) Basophils # (Manual) POC ABG pH ABG pH POC ABG pCO2 POC ABG pO2 ABG pO2 ABG Base Excess ABG Hemoglobin Oxyhemoglobin Sodium Potassium Chloride Carbon Dioxide BUN 53 H Creatinine 1.8 H Glucose 185 H POC Glucose 190 H 50 L Hemoglobin A1c Calcium Phosphorus Magnesium AST Alkaline Phosphatase Total Protein Albumin Urine WBC (Auto) Urine Creatinine Urine Total Protein Crossmatch 06/10/17 06/10/17 06/11/17 14:35 18:31 00:09 WBC RBC Hgb Hct MCH MCHC RDW Plt Count Lymph % (Auto) [place] % (Auto) [place] # Seg Neutrophils % Seg Neuts % (Manual) Lymphocytes % (Manual) Monocytes % (Manual) Basophils % (Manual) Nucleated RBC % Seg Neutrophils # Seg Neutrophils # Man Lymphocytes # (Manual) Monocytes # (Manual) Eosinophils # (Manual) Basophils # (Manual) POC ABG pH ABG pH POC ABG pCO2 POC ABG pO2 ABG pO2 ABG Base Excess ABG Hemoglobin Oxyhemoglobin Sodium Potassium Chloride Carbon Dioxide BUN Creatinine Glucose POC Glucose 58 L 55 L 126 H Hemoglobin A1c Calcium Phosphorus Magnesium AST Alkaline Phosphatase Total Protein Albumin Urine WBC (Auto) Urine Creatinine Urine Total Protein Crossmatch 06/11/17 06/11/17 06/11/17 05:32 06:01 06:03 WBC 15.6 H RBC 3.03 L Hgb 8.3 L Hct 24.0 L MCH MCHC 35 H RDW Plt Count 492 H Lymph % (Auto) [place] % (Auto) [place] # Seg Neutrophils % Seg Neuts % (Manual) Lymphocytes % (Manual) Monocytes % (Manual) Basophils % (Manual) Nucleated RBC % Seg Neutrophils # Seg Neutrophils # Man Lymphocytes # (Manual) Monocytes # (Manual) Eosinophils # (Manual) Basophils # (Manual) POC ABG pH ABG pH POC ABG pCO2 POC ABG pO2 ABG pO2 ABG Base Excess ABG Hemoglobin Oxyhemoglobin Sodium Potassium Chloride Carbon Dioxide BUN 55 H Creatinine 1.8 H Glucose 228 H POC Glucose 219 H Hemoglobin A1c Calcium Phosphorus Magnesium AST Alkaline Phosphatase Total Protein Albumin Urine WBC (Auto) Urine Creatinine Urine Total Protein Crossmatch 06/11/17 06/11/17 06/12/17 11:53 18:31 04:24 WBC 17.4 H RBC 2.90 L Hgb 8.0 L Hct 23.0 L MCH MCHC 35 H RDW Plt Count 460 H Lymph % (Auto) [place] % (Auto) [place] # Seg Neutrophils % Seg Neuts % (Manual) Lymphocytes % (Manual) Monocytes % (Manual) Basophils % (Manual) Nucleated RBC % Seg Neutrophils # Seg Neutrophils # Man Lymphocytes # (Manual) Monocytes # (Manual) Eosinophils # (Manual) Basophils # (Manual) POC ABG pH ABG pH POC ABG pCO2 POC ABG pO2 ABG pO2 ABG Base Excess ABG Hemoglobin Oxyhemoglobin Sodium Potassium Chloride Carbon Dioxide BUN Creatinine Glucose POC Glucose 220 H 254 H Hemoglobin A1c Calcium Phosphorus Magnesium AST Alkaline Phosphatase Total Protein Albumin Urine WBC (Auto) Urine Creatinine Urine Total Protein Crossmatch 06/12/17 06/12/17 06/12/17 05:37 05:40 06:00 WBC RBC Hgb Hct MCH MCHC RDW Plt Count Lymph % (Auto) [place] % (Auto) [place] # Seg Neutrophils % Seg Neuts % (Manual) Lymphocytes % (Manual) Monocytes % (Manual) Basophils % (Manual) Nucleated RBC % Seg Neutrophils # Seg Neutrophils # Man Lymphocytes # (Manual) Monocytes # (Manual) Eosinophils # (Manual) Basophils # (Manual) POC ABG pH ABG pH POC ABG pCO2 POC ABG pO2 ABG pO2 ABG Base Excess ABG Hemoglobin Oxyhemoglobin Sodium Potassium Chloride Carbon Dioxide BUN Creatinine Glucose 41 L POC Glucose < 40 L < 40 L Hemoglobin A1c Calcium Phosphorus Magnesium AST Alkaline Phosphatase Total Protein Albumin Urine WBC (Auto) Urine Creatinine Urine Total Protein Crossmatch 06/12/17 06/12/17 06/12/17 07:09 07:51 10:06 WBC RBC Hgb Hct MCH MCHC RDW Plt Count Lymph % (Auto) [place] % (Auto) [place] # Seg Neutrophils % Seg Neuts % (Manual) Lymphocytes % (Manual) Monocytes % (Manual) Basophils % (Manual) Nucleated RBC % Seg Neutrophils # Seg Neutrophils # Man Lymphocytes # (Manual) Monocytes # (Manual) Eosinophils # (Manual) Basophils # (Manual) POC ABG pH ABG pH POC ABG pCO2 POC ABG pO2 ABG pO2 ABG Base Excess ABG Hemoglobin Oxyhemoglobin Sodium Potassium Chloride Carbon Dioxide BUN Creatinine Glucose POC Glucose 64 L 42 L 61 L Hemoglobin A1c Calcium Phosphorus Magnesium AST Alkaline Phosphatase Total Protein Albumin Urine WBC (Auto) Urine Creatinine Urine Total Protein Crossmatch 06/12/17 06/12/17 06/12/17 11:16 14:04 18:03 WBC RBC Hgb Hct MCH MCHC RDW Plt Count Lymph % (Auto) [place] % (Auto) [place] # Seg Neutrophils % Seg Neuts % (Manual) Lymphocytes % (Manual) Monocytes % (Manual) Basophils % (Manual) Nucleated RBC % Seg Neutrophils # Seg Neutrophils # Man Lymphocytes # (Manual) Monocytes # (Manual) Eosinophils # (Manual) Basophils # (Manual) POC ABG pH ABG pH POC ABG pCO2 POC ABG pO2 ABG pO2 ABG Base Excess ABG Hemoglobin Oxyhemoglobin Sodium Potassium Chloride Carbon Dioxide BUN Creatinine Glucose POC Glucose 67 L 112 H 116 H Hemoglobin A1c Calcium Phosphorus Magnesium AST Alkaline Phosphatase Total Protein Albumin Urine WBC (Auto) Urine Creatinine Urine Total Protein Crossmatch 06/12/17 06/12/17 06/12/17 19:30 20:34 21:01 WBC RBC Hgb Hct MCH MCHC RDW Plt Count Lymph % (Auto) [place] % (Auto) [place] # Seg Neutrophils % Seg Neuts % (Manual) Lymphocytes % (Manual) Monocytes % (Manual) Basophils % (Manual) Nucleated RBC % Seg Neutrophils # Seg Neutrophils # Man Lymphocytes # (Manual) Monocytes # (Manual) Eosinophils # (Manual) Basophils # (Manual) POC ABG pH ABG pH POC ABG pCO2 POC ABG pO2 ABG pO2 ABG Base Excess ABG Hemoglobin Oxyhemoglobin Sodium Potassium Chloride Carbon Dioxide BUN Creatinine Glucose POC Glucose 156 H 172 H 174 H Hemoglobin A1c Calcium Phosphorus Magnesium AST Alkaline Phosphatase Total Protein Albumin Urine WBC (Auto) Urine Creatinine Urine Total Protein Crossmatch 06/12/17 06/12/17 06/13/17 22:00 23:23 00:27 WBC RBC Hgb Hct MCH MCHC RDW Plt Count Lymph % (Auto) [place] % (Auto) [place] # Seg Neutrophils % Seg Neuts % (Manual) Lymphocytes % (Manual) Monocytes % (Manual) Basophils % (Manual) Nucleated RBC % Seg Neutrophils # Seg Neutrophils # Man Lymphocytes # (Manual) Monocytes # (Manual) Eosinophils # (Manual) Basophils # (Manual) POC ABG pH ABG pH POC ABG pCO2 POC ABG pO2 ABG pO2 ABG Base Excess ABG Hemoglobin Oxyhemoglobin Sodium Potassium Chloride Carbon Dioxide BUN Creatinine Glucose POC Glucose 240 H 286 H 182 H Hemoglobin A1c Calcium Phosphorus Magnesium AST Alkaline Phosphatase Total Protein Albumin Urine WBC (Auto) Urine Creatinine Urine Total Protein Crossmatch 06/13/17 06/13/17 06/13/17 01:28 02:10 03:15 WBC RBC Hgb Hct MCH MCHC RDW Plt Count Lymph % (Auto) [place] % (Auto) [place] # Seg Neutrophils % Seg Neuts % (Manual) Lymphocytes % (Manual) Monocytes % (Manual) Basophils % (Manual) Nucleated RBC % Seg Neutrophils # Seg Neutrophils # Man Lymphocytes # (Manual) Monocytes # (Manual) Eosinophils # (Manual) Basophils # (Manual) POC ABG pH ABG pH POC ABG pCO2 POC ABG pO2 ABG pO2 ABG Base Excess ABG Hemoglobin Oxyhemoglobin Sodium Potassium Chloride Carbon Dioxide BUN Creatinine Glucose POC Glucose 304 H 277 H 318 H Hemoglobin A1c Calcium Phosphorus Magnesium AST Alkaline Phosphatase Total Protein Albumin Urine WBC (Auto) Urine Creatinine Urine Total Protein Crossmatch 06/13/17 06/13/17 06/13/17 04:15 05:10 05:38 WBC RBC Hgb Hct MCH MCHC RDW Plt Count Lymph % (Auto) [place] % (Auto) [place] # Seg Neutrophils % Seg Neuts % (Manual) Lymphocytes % (Manual) Monocytes % (Manual) Basophils % (Manual) Nucleated RBC % Seg Neutrophils # Seg Neutrophils # Man Lymphocytes # (Manual) Monocytes # (Manual) Eosinophils # (Manual) Basophils # (Manual) POC ABG pH ABG pH POC ABG pCO2 POC ABG pO2 ABG pO2 ABG Base Excess ABG Hemoglobin Oxyhemoglobin Sodium Potassium Chloride Carbon Dioxide BUN Creatinine Glucose POC Glucose 294 H 275 H 315 H Hemoglobin A1c Calcium Phosphorus Magnesium AST Alkaline Phosphatase Total Protein Albumin Urine WBC (Auto) Urine Creatinine Urine Total Protein Crossmatch 06/13/17 06/13/17 06/13/17 06:21 12:02 16:52 WBC RBC Hgb Hct MCH MCHC RDW Plt Count Lymph % (Auto) [place] % (Auto) [place] # Seg Neutrophils % Seg Neuts % (Manual) Lymphocytes % (Manual) Monocytes % (Manual) Basophils % (Manual) Nucleated RBC % Seg Neutrophils # Seg Neutrophils # Man Lymphocytes # (Manual) Monocytes # (Manual) Eosinophils # (Manual) Basophils # (Manual) POC ABG pH ABG pH POC ABG pCO2 POC ABG pO2 ABG pO2 ABG Base Excess ABG Hemoglobin Oxyhemoglobin Sodium Potassium Chloride Carbon Dioxide BUN Creatinine Glucose POC Glucose 350 H 333 H 343 H Hemoglobin A1c Calcium Phosphorus Magnesium AST Alkaline Phosphatase Total Protein Albumin Urine WBC (Auto) Urine Creatinine Urine Total Protein Crossmatch 06/14/17 06/14/17 06/14/17 00:01 04:18 04:18 WBC 29.6 H RBC 2.81 L Hgb 7.8 L Hct 23.2 L MCH MCHC RDW 15.3 H Plt Count Lymph % (Auto) [place] % (Auto) [place] # Seg Neutrophils % Seg Neuts % (Manual) Lymphocytes % (Manual) Monocytes % (Manual) Basophils % (Manual) Nucleated RBC % Seg Neutrophils # Seg Neutrophils # Man Lymphocytes # (Manual) Monocytes # (Manual) Eosinophils # (Manual) Basophils # (Manual) POC ABG pH ABG pH POC ABG pCO2 POC ABG pO2 ABG pO2 ABG Base Excess ABG Hemoglobin Oxyhemoglobin Sodium Potassium Chloride Carbon Dioxide 20 L BUN 75 H Creatinine 2.2 H Glucose 364 H POC Glucose 297 H Hemoglobin A1c Calcium Phosphorus Magnesium AST Alkaline Phosphatase Total Protein Albumin Urine WBC (Auto) Urine Creatinine Urine Total Protein Crossmatch 06/14/17 06/14/17 06/14/17 05:10 08:25 11:46 WBC RBC Hgb Hct MCH MCHC RDW Plt Count Lymph % (Auto) [place] % (Auto) [place] # Seg Neutrophils % Seg Neuts % (Manual) Lymphocytes % (Manual) Monocytes % (Manual) Basophils % (Manual) Nucleated RBC % Seg Neutrophils # Seg Neutrophils # Man Lymphocytes # (Manual) Monocytes # (Manual) Eosinophils # (Manual) Basophils # (Manual) POC ABG pH ABG pH POC ABG pCO2 POC ABG pO2 ABG pO2 ABG Base Excess ABG Hemoglobin Oxyhemoglobin Sodium Potassium Chloride Carbon Dioxide BUN Creatinine Glucose POC Glucose 350 H 322 H 391 H Hemoglobin A1c Calcium Phosphorus Magnesium AST Alkaline Phosphatase Total Protein Albumin Urine WBC (Auto) Urine Creatinine Urine Total Protein Crossmatch 06/14/17 06/15/17 06/15/17 18:04 00:16 11:20 WBC RBC Hgb Hct MCH MCHC RDW Plt Count Lymph % (Auto) [place] % (Auto) [place] # Seg Neutrophils % Seg Neuts % (Manual) Lymphocytes % (Manual) Monocytes % (Manual) Basophils % (Manual) Nucleated RBC % Seg Neutrophils # Seg Neutrophils # Man Lymphocytes # (Manual) Monocytes # (Manual) Eosinophils # (Manual) Basophils # (Manual) POC ABG pH ABG pH POC ABG pCO2 POC ABG pO2 ABG pO2 ABG Base Excess ABG Hemoglobin Oxyhemoglobin Sodium Potassium Chloride Carbon Dioxide 21 L BUN 88 H Creatinine 2.7 H Glucose 302 H POC Glucose 384 H 435 H Hemoglobin A1c Calcium Phosphorus Magnesium AST Alkaline Phosphatase Total Protein Albumin Urine WBC (Auto) Urine Creatinine Urine Total Protein Crossmatch 06/15/17 06/15/17 06/15/17 11:47 17:35 21:33 WBC RBC Hgb Hct MCH MCHC RDW Plt Count Lymph % (Auto) [place] % (Auto) [place] # Seg Neutrophils % Seg Neuts % (Manual) Lymphocytes % (Manual) Monocytes % (Manual) Basophils % (Manual) Nucleated RBC % Seg Neutrophils # Seg Neutrophils # Man Lymphocytes # (Manual) Monocytes # (Manual) Eosinophils # (Manual) Basophils # (Manual) POC ABG pH ABG pH POC ABG pCO2 POC ABG pO2 ABG pO2 ABG Base Excess ABG Hemoglobin Oxyhemoglobin Sodium Potassium Chloride Carbon Dioxide BUN Creatinine Glucose POC Glucose 311 H 428 H 346 H Hemoglobin A1c Calcium Phosphorus Magnesium AST Alkaline Phosphatase Total Protein Albumin Urine WBC (Auto) Urine Creatinine Urine Total Protein Crossmatch 06/15/17 06/15/17 06/16/17 23:23 Unknown 05:36 WBC RBC Hgb Hct MCH MCHC RDW Plt Count Lymph % (Auto) [place] % (Auto) [place] # Seg Neutrophils % Seg Neuts % (Manual) Lymphocytes % (Manual) Monocytes % (Manual) Basophils % (Manual) Nucleated RBC % Seg Neutrophils # Seg Neutrophils # Man Lymphocytes # (Manual) Monocytes # (Manual) Eosinophils # (Manual) Basophils # (Manual) POC ABG pH ABG pH POC ABG pCO2 POC ABG pO2 ABG pO2 ABG Base Excess ABG Hemoglobin 10.1 L Oxyhemoglobin 94.9 L Sodium Potassium Chloride Carbon Dioxide BUN Creatinine Glucose POC Glucose 351 H 303 H Hemoglobin A1c Calcium Phosphorus Magnesium AST Alkaline Phosphatase Total Protein Albumin Urine WBC (Auto) Urine Creatinine Urine Total Protein Crossmatch 06/16/17 06/16/17 06/16/17 06:33 06:33 08:26 WBC 25.8 H RBC 2.68 L Hgb 7.2 L Hct 21.6 L MCH 27 L MCHC RDW 15.9 H Plt Count Lymph % (Auto) [place] % (Auto) [place] # Seg Neutrophils % Seg Neuts % (Manual) Lymphocytes % (Manual) Monocytes % (Manual) Basophils % (Manual) Nucleated RBC % Seg Neutrophils # Seg Neutrophils # Man Lymphocytes # (Manual) Monocytes # (Manual) Eosinophils # (Manual) Basophils # (Manual) POC ABG pH ABG pH POC ABG pCO2 POC ABG pO2 ABG pO2 ABG Base Excess ABG Hemoglobin Oxyhemoglobin Sodium Potassium Chloride Carbon Dioxide 21 L BUN 94 H Creatinine 2.7 H Glucose 280 H POC Glucose Hemoglobin A1c Calcium Phosphorus Magnesium AST Alkaline Phosphatase Total Protein Albumin Urine WBC (Auto) > 182.0 H Urine Creatinine Urine Total Protein Crossmatch 06/16/17 06/16/17 06/16/17 08:26 11:45 18:28 WBC RBC Hgb Hct MCH MCHC RDW Plt Count Lymph % (Auto) [place] % (Auto) [place] # Seg Neutrophils % Seg Neuts % (Manual) Lymphocytes % (Manual) Monocytes % (Manual) Basophils % (Manual) Nucleated RBC % Seg Neutrophils # Seg Neutrophils # Man Lymphocytes # (Manual) Monocytes # (Manual) Eosinophils # (Manual) Basophils # (Manual) POC ABG pH ABG pH POC ABG pCO2 POC ABG pO2 ABG pO2 ABG Base Excess ABG Hemoglobin Oxyhemoglobin Sodium Potassium Chloride Carbon Dioxide BUN Creatinine Glucose POC Glucose 263 H 175 H Hemoglobin A1c Calcium Phosphorus Magnesium AST Alkaline Phosphatase Total Protein Albumin Urine WBC (Auto) Urine Creatinine 119.9 H Urine Total Protein 295 H Crossmatch 06/16/17 06/17/17 06/17/17 23:36 03:51 04:04 WBC 28.1 H RBC 2.61 L Hgb 7.1 L Hct 21.5 L MCH 27 L MCHC RDW 15.8 H Plt Count Lymph % (Auto) [place] % (Auto) [place] # Seg Neutrophils % Seg Neuts % (Manual) 90.5 H Lymphocytes % (Manual) 2.0 L Monocytes % (Manual) Basophils % (Manual) Nucleated RBC % Seg Neutrophils # Seg Neutrophils # Man 25.4 H Lymphocytes # (Manual) 0.6 L Monocytes # (Manual) 1.5 H Eosinophils # (Manual) Basophils # (Manual) POC ABG pH ABG pH 7.483 H POC ABG pCO2 POC ABG pO2 ABG pO2 144.0 H ABG Base Excess -2.1 L ABG Hemoglobin 6.5 L Oxyhemoglobin Sodium Potassium Chloride Carbon Dioxide BUN Creatinine Glucose POC Glucose 152 H Hemoglobin A1c Calcium Phosphorus Magnesium AST Alkaline Phosphatase Total Protein Albumin Urine WBC (Auto) Urine Creatinine Urine Total Protein Crossmatch 06/17/17 06/17/17 06/17/17 04:04 05:34 09:34 WBC RBC Hgb Hct MCH MCHC RDW Plt Count Lymph % (Auto) [place] % (Auto) [place] # Seg Neutrophils % Seg Neuts % (Manual) Lymphocytes % (Manual) Monocytes % (Manual) Basophils % (Manual) Nucleated RBC % Seg Neutrophils # Seg Neutrophils # Man Lymphocytes # (Manual) Monocytes # (Manual) Eosinophils # (Manual) Basophils # (Manual) POC ABG pH ABG pH POC ABG pCO2 POC ABG pO2 ABG pO2 ABG Base Excess ABG Hemoglobin Oxyhemoglobin Sodium 136 L Potassium Chloride Carbon Dioxide 20 L BUN 97 H Creatinine 2.7 H Glucose 151 H POC Glucose 203 H 243 H Hemoglobin A1c Calcium Phosphorus Magnesium AST Alkaline Phosphatase Total Protein Albumin Urine WBC (Auto) Urine Creatinine Urine Total Protein Crossmatch 06/17/17 06/17/17 06/17/17 12:36 17:24 21:36 WBC RBC Hgb Hct MCH MCHC RDW Plt Count Lymph % (Auto) [place] % (Auto) [place] # Seg Neutrophils % Seg Neuts % (Manual) Lymphocytes % (Manual) Monocytes % (Manual) Basophils % (Manual) Nucleated RBC % Seg Neutrophils # Seg Neutrophils # Man Lymphocytes # (Manual) Monocytes # (Manual) Eosinophils # (Manual) Basophils # (Manual) POC ABG pH ABG pH POC ABG pCO2 POC ABG pO2 ABG pO2 ABG Base Excess ABG Hemoglobin Oxyhemoglobin Sodium Potassium Chloride Carbon Dioxide BUN Creatinine Glucose POC Glucose 214 H 131 H 175 H Hemoglobin A1c Calcium Phosphorus Magnesium AST Alkaline Phosphatase Total Protein Albumin Urine WBC (Auto) Urine Creatinine Urine Total Protein Crossmatch 06/18/17 06/18/17 06/18/17 00:14 04:55 10:57 WBC RBC Hgb Hct MCH MCHC RDW Plt Count Lymph % (Auto) [place] % (Auto) [place] # Seg Neutrophils % Seg Neuts % (Manual) Lymphocytes % (Manual) Monocytes % (Manual) Basophils % (Manual) Nucleated RBC % Seg Neutrophils # Seg Neutrophils # Man Lymphocytes # (Manual) Monocytes # (Manual) Eosinophils # (Manual) Basophils # (Manual) POC ABG pH ABG pH POC ABG pCO2 POC ABG pO2 ABG pO2 ABG Base Excess ABG Hemoglobin Oxyhemoglobin Sodium 134 L Potassium Chloride Carbon Dioxide 19 L BUN 107 H Creatinine 2.7 H Glucose 196 H POC Glucose 171 H 161 H Hemoglobin A1c Calcium Phosphorus Magnesium AST Alkaline Phosphatase Total Protein Albumin Urine WBC (Auto) Urine Creatinine Urine Total Protein Crossmatch 06/18/17 06/18/17 06/19/17 17:31 23:25 04:24 WBC 33.8 H RBC 2.46 L Hgb 6.7 L Hct 20.0 L MCH 27 L MCHC RDW 15.4 H Plt Count Lymph % (Auto) [place] % (Auto) [place] # Seg Neutrophils % Seg Neuts % (Manual) 91.0 H Lymphocytes % (Manual) 2.0 L Monocytes % (Manual) Basophils % (Manual) Nucleated RBC % Seg Neutrophils # Seg Neutrophils # Man 30.8 H Lymphocytes # (Manual) 0.7 L Monocytes # (Manual) 2.0 H Eosinophils # (Manual) Basophils # (Manual) POC ABG pH ABG pH POC ABG pCO2 POC ABG pO2 ABG pO2 ABG Base Excess ABG Hemoglobin Oxyhemoglobin Sodium Potassium Chloride Carbon Dioxide BUN Creatinine Glucose POC Glucose 241 H 303 H Hemoglobin A1c Calcium Phosphorus Magnesium AST Alkaline Phosphatase Total Protein Albumin Urine WBC (Auto) Urine Creatinine Urine Total Protein Crossmatch 06/19/17 06/19/17 06/19/17 04:24 05:19 12:14 WBC RBC Hgb Hct MCH MCHC RDW Plt Count Lymph % (Auto) [place] % (Auto) [place] # Seg Neutrophils % Seg Neuts % (Manual) Lymphocytes % (Manual) Monocytes % (Manual) Basophils % (Manual) Nucleated RBC % Seg Neutrophils # Seg Neutrophils # Man Lymphocytes # (Manual) Monocytes # (Manual) Eosinophils # (Manual) Basophils # (Manual) POC ABG pH ABG pH POC ABG pCO2 POC ABG pO2 ABG pO2 ABG Base Excess ABG Hemoglobin Oxyhemoglobin Sodium 135 L Potassium Chloride 97.2 L Carbon Dioxide 20 L BUN 116 H Creatinine 3.1 H Glucose 220 H POC Glucose 238 H 224 H Hemoglobin A1c Calcium Phosphorus Magnesium AST Alkaline Phosphatase Total Protein Albumin Urine WBC (Auto) Urine Creatinine Urine Total Protein Crossmatch 06/19/17 06/19/17 06/20/17 16:45 16:50 04:34 WBC 36.4 H RBC 2.86 L Hgb 7.8 L Hct 24.4 L MCH 27 L MCHC RDW 16.2 H Plt Count 441 H Lymph % (Auto) [place] % (Auto) [place] # Seg Neutrophils % Seg Neuts % (Manual) 72.0 H Lymphocytes % (Manual) 9.0 L Monocytes % (Manual) 9.0 H Basophils % (Manual) Nucleated RBC % Seg Neutrophils # Seg Neutrophils # Man 26.2 H Lymphocytes # (Manual) Monocytes # (Manual) 3.3 H Eosinophils # (Manual) Basophils # (Manual) POC ABG pH ABG pH POC ABG pCO2 POC ABG pO2 ABG pO2 ABG Base Excess ABG Hemoglobin Oxyhemoglobin Sodium Potassium Chloride Carbon Dioxide BUN Creatinine Glucose POC Glucose 177 H Hemoglobin A1c Calcium Phosphorus Magnesium AST Alkaline Phosphatase Total Protein Albumin Urine WBC (Auto) Urine Creatinine Urine Total Protein Crossmatch See Detail 06/20/17 06/20/17 06/20/17 04:34 04:58 12:33 WBC RBC Hgb Hct MCH MCHC RDW Plt Count Lymph % (Auto) [place] % (Auto) [place] # Seg Neutrophils % Seg Neuts % (Manual) Lymphocytes % (Manual) Monocytes % (Manual) Basophils % (Manual) Nucleated RBC % Seg Neutrophils # Seg Neutrophils # Man Lymphocytes # (Manual) Monocytes # (Manual) Eosinophils # (Manual) Basophils # (Manual) POC ABG pH ABG pH POC ABG pCO2 POC ABG pO2 ABG pO2 ABG Base Excess ABG Hemoglobin Oxyhemoglobin Sodium Potassium Chloride Carbon Dioxide 18 L BUN 109 H Creatinine 2.8 H Glucose POC Glucose 108 H 130 H Hemoglobin A1c Calcium Phosphorus Magnesium AST Alkaline Phosphatase Total Protein Albumin Urine WBC (Auto) Urine Creatinine Urine Total Protein Crossmatch 06/20/17 06/20/17 06/21/17 17:06 23:33 05:23 WBC RBC Hgb Hct MCH MCHC RDW Plt Count Lymph % (Auto) [place] % (Auto) [place] # Seg Neutrophils % Seg Neuts % (Manual) Lymphocytes % (Manual) Monocytes % (Manual) Basophils % (Manual) Nucleated RBC % Seg Neutrophils # Seg Neutrophils # Man Lymphocytes # (Manual) Monocytes # (Manual) Eosinophils # (Manual) Basophils # (Manual) POC ABG pH ABG pH POC ABG pCO2 POC ABG pO2 ABG pO2 ABG Base Excess ABG Hemoglobin Oxyhemoglobin Sodium Potassium Chloride Carbon Dioxide 18 L BUN 105 H Creatinine 2.5 H Glucose 154 H POC Glucose 154 H 174 H Hemoglobin A1c Calcium Phosphorus Magnesium AST Alkaline Phosphatase Total Protein Albumin Urine WBC (Auto) Urine Creatinine Urine Total Protein Crossmatch 06/21/17 06/21/17 06/21/17 06:05 09:12 11:55 WBC RBC Hgb Hct MCH MCHC RDW Plt Count Lymph % (Auto) [place] % (Auto) [place] # Seg Neutrophils % Seg Neuts % (Manual) Lymphocytes % (Manual) Monocytes % (Manual) Basophils % (Manual) Nucleated RBC % Seg Neutrophils # Seg Neutrophils # Man Lymphocytes # (Manual) Monocytes # (Manual) Eosinophils # (Manual) Basophils # (Manual) POC ABG pH ABG pH POC ABG pCO2 POC ABG pO2 ABG pO2 ABG Base Excess ABG Hemoglobin Oxyhemoglobin Sodium Potassium Chloride Carbon Dioxide BUN Creatinine Glucose POC Glucose 168 H 183 H 174 H Hemoglobin A1c Calcium Phosphorus Magnesium AST Alkaline Phosphatase Total Protein Albumin Urine WBC (Auto) Urine Creatinine Urine Total Protein Crossmatch 06/21/17 06/21/17 06/21/17 16:52 17:10 23:45 WBC 28.0 H RBC 2.98 L Hgb 8.0 L Hct 26.1 L MCH 27 L MCHC RDW 16.6 H Plt Count Lymph % (Auto) [place] % (Auto) [place] # Seg Neutrophils % Seg Neuts % (Manual) Lymphocytes % (Manual) Monocytes % (Manual) Basophils % (Manual) Nucleated RBC % Seg Neutrophils # Seg Neutrophils # Man Lymphocytes # (Manual) Monocytes # (Manual) Eosinophils # (Manual) Basophils # (Manual) POC ABG pH ABG pH POC ABG pCO2 POC ABG pO2 ABG pO2 ABG Base Excess ABG Hemoglobin Oxyhemoglobin Sodium Potassium Chloride Carbon Dioxide BUN Creatinine Glucose POC Glucose 194 H 175 H Hemoglobin A1c Calcium Phosphorus Magnesium AST Alkaline Phosphatase Total Protein Albumin Urine WBC (Auto) Urine Creatinine Urine Total Protein Crossmatch 06/22/17 06/22/17 06/22/17 04:48 04:48 05:40 WBC 27.0 H RBC 2.88 L Hgb 7.9 L Hct 23.9 L MCH MCHC RDW 16.4 H Plt Count 493 H Lymph % (Auto) [place] % (Auto) [place] # Seg Neutrophils % Seg Neuts % (Manual) 91.0 H Lymphocytes % (Manual) 0 L Monocytes % (Manual) Basophils % (Manual) Nucleated RBC % 1.0 H Seg Neutrophils # Seg Neutrophils # Man 24.6 H Lymphocytes # (Manual) 0.0 L Monocytes # (Manual) 1.1 H Eosinophils # (Manual) 0.5 H Basophils # (Manual) POC ABG pH ABG pH POC ABG pCO2 POC ABG pO2 ABG pO2 ABG Base Excess ABG Hemoglobin Oxyhemoglobin Sodium Potassium Chloride Carbon Dioxide 19 L BUN 95 H Creatinine 2.3 H Glucose 159 H POC Glucose 172 H Hemoglobin A1c Calcium Phosphorus Magnesium AST Alkaline Phosphatase Total Protein Albumin Urine WBC (Auto) Urine Creatinine Urine Total Protein Crossmatch 06/22/17 06/22/17 06/23/17 12:09 22:08 04:41 WBC RBC Hgb Hct MCH MCHC RDW Plt Count Lymph % (Auto) [place] % (Auto) [place] # Seg Neutrophils % Seg Neuts % (Manual) Lymphocytes % (Manual) Monocytes % (Manual) Basophils % (Manual) Nucleated RBC % Seg Neutrophils # Seg Neutrophils # Man Lymphocytes # (Manual) Monocytes # (Manual) Eosinophils # (Manual) Basophils # (Manual) POC ABG pH ABG pH POC ABG pCO2 POC ABG pO2 ABG pO2 ABG Base Excess ABG Hemoglobin Oxyhemoglobin Sodium Potassium Chloride Carbon Dioxide BUN Creatinine Glucose POC Glucose 207 H 66 L Hemoglobin A1c Calcium Phosphorus Magnesium AST 41 H Alkaline Phosphatase 642 H Total Protein 5.5 L Albumin 2.0 L Urine WBC (Auto) Urine Creatinine Urine Total Protein Crossmatch 06/23/17 06/23/17 06/23/17 04:41 04:41 05:36 WBC 27.6 H RBC 2.89 L Hgb 7.8 L Hct 23.6 L MCH 27 L MCHC RDW 16.3 H Plt Count 499 H Lymph % (Auto) [place] % (Auto) [place] # Seg Neutrophils % Seg Neuts % (Manual) 95.0 H Lymphocytes % (Manual) 0 L Monocytes % (Manual) Basophils % (Manual) Nucleated RBC % Seg Neutrophils # Seg Neutrophils # Man 26.2 H Lymphocytes # (Manual) 0.0 L Monocytes # (Manual) Eosinophils # (Manual) Basophils # (Manual) POC ABG pH ABG pH POC ABG pCO2 POC ABG pO2 ABG pO2 ABG Base Excess ABG Hemoglobin Oxyhemoglobin Sodium Potassium Chloride Carbon Dioxide 19 L BUN 90 H Creatinine 2.1 H Glucose POC Glucose 109 H Hemoglobin A1c Calcium 8.3 L Phosphorus Magnesium AST Alkaline Phosphatase Total Protein Albumin Urine WBC (Auto) Urine Creatinine Urine Total Protein Crossmatch 06/23/17 06/23/17 06/24/17 12:14 17:33 00:10 WBC RBC Hgb Hct MCH MCHC RDW Plt Count Lymph % (Auto) [place] % (Auto) [place] # Seg Neutrophils % Seg Neuts % (Manual) Lymphocytes % (Manual) Monocytes % (Manual) Basophils % (Manual) Nucleated RBC % Seg Neutrophils # Seg Neutrophils # Man Lymphocytes # (Manual) Monocytes # (Manual) Eosinophils # (Manual) Basophils # (Manual) POC ABG pH ABG pH POC ABG pCO2 POC ABG pO2 ABG pO2 ABG Base Excess ABG Hemoglobin Oxyhemoglobin Sodium Potassium Chloride Carbon Dioxide BUN Creatinine Glucose POC Glucose 147 H 194 H 196 H Hemoglobin A1c Calcium Phosphorus Magnesium AST Alkaline Phosphatase Total Protein Albumin Urine WBC (Auto) Urine Creatinine Urine Total Protein Crossmatch 06/24/17 06/24/17 06/24/17 00:40 05:40 12:06 WBC RBC Hgb Hct MCH MCHC RDW Plt Count Lymph % (Auto) [place] % (Auto) [place] # Seg Neutrophils % Seg Neuts % (Manual) Lymphocytes % (Manual) Monocytes % (Manual) Basophils % (Manual) Nucleated RBC % Seg Neutrophils # Seg Neutrophils # Man Lymphocytes # (Manual) Monocytes # (Manual) Eosinophils # (Manual) Basophils # (Manual) POC ABG pH ABG pH POC ABG pCO2 POC ABG pO2 ABG pO2 ABG Base Excess ABG Hemoglobin Oxyhemoglobin Sodium Potassium Chloride Carbon Dioxide BUN Creatinine Glucose POC Glucose 168 H 180 H 190 H Hemoglobin A1c Calcium Phosphorus Magnesium AST Alkaline Phosphatase Total Protein Albumin Urine WBC (Auto) Urine Creatinine Urine Total Protein Crossmatch 06/24/17 06/25/17 06/25/17 17:51 00:31 04:14 WBC 20.5 H RBC 3.47 L Hgb 9.5 L Hct 28.7 L MCH 27 L MCHC RDW 16.3 H Plt Count 559 H Lymph % (Auto) [place] % (Auto) [place] # Seg Neutrophils % Seg Neuts % (Manual) 88.0 H Lymphocytes % (Manual) 4.5 L Monocytes % (Manual) Basophils % (Manual) Nucleated RBC % Seg Neutrophils # Seg Neutrophils # Man 18.0 H Lymphocytes # (Manual) 0.9 L Monocytes # (Manual) Eosinophils # (Manual) 0.6 H Basophils # (Manual) POC ABG pH ABG pH POC ABG pCO2 POC ABG pO2 ABG pO2 ABG Base Excess ABG Hemoglobin Oxyhemoglobin Sodium Potassium Chloride Carbon Dioxide BUN Creatinine Glucose POC Glucose 199 H 217 H Hemoglobin A1c Calcium Phosphorus Magnesium AST Alkaline Phosphatase Total Protein Albumin Urine WBC (Auto) Urine Creatinine Urine Total Protein Crossmatch 06/25/17 06/25/17 06/25/17 04:14 05:59 11:36 WBC RBC Hgb Hct MCH MCHC RDW Plt Count Lymph % (Auto) [place] % (Auto) [place] # Seg Neutrophils % Seg Neuts % (Manual) Lymphocytes % (Manual) Monocytes % (Manual) Basophils % (Manual) Nucleated RBC % Seg Neutrophils # Seg Neutrophils # Man Lymphocytes # (Manual) Monocytes # (Manual) Eosinophils # (Manual) Basophils # (Manual) POC ABG pH ABG pH POC ABG pCO2 POC ABG pO2 ABG pO2 ABG Base Excess ABG Hemoglobin Oxyhemoglobin Sodium Potassium Chloride Carbon Dioxide 20 L BUN 77 H Creatinine 1.9 H Glucose 193 H POC Glucose 224 H 198 H Hemoglobin A1c Calcium Phosphorus Magnesium AST Alkaline Phosphatase 549 H Total Protein Albumin 1.9 L Urine WBC (Auto) Urine Creatinine Urine Total Protein Crossmatch
--- NOTE | 2017-06-25 14:34 | Discharge Summary ---
Providers - Providers Date of Admission: 05/30/17 11:38 Attending physician: LUIZ DICKEY MD 05/30/17 11:35 Consult to Case Management [CONS] Routine Services Needed at Discharge: Energy Administrator Notified:: yes 05/30/17 11:37 Consult to Physician [CONS] Routine Comment: Consulting Provider: DARRYL WARD Physician Instructions: Reason For Exam: SEIZURE, ALTERED MENTAL STATUS 05/30/17 11:48 Consult to Physician [CONS] Stat Comment: Consulting Provider: ANIRUDH MARTINES Physician Instructions: Reason For Exam: HYPERGLYCEMIA 05/30/17 14:08 Consult to Physician [CONS] Stat Comment: Consulting Provider: ANIRUDH MARTINES Physician Instructions: Reason For Exam: altered mental status, intubated 05/30/17 19:18 Consult to Dietitian/Nutrition [CONS] Routine Physician Instructions: Reason For Exam: DKA Reason for Consult: Nutrition Recommendations Reason for Consult: Write/Manage Tube Feeding 06/01/17 23:46 Consult to Physician [CONS] Stat Comment: contact #[phone] Consulting Provider: LIZZ PRESLEY Physician Instructions: I notified answering service , spoke with Erika Reason For Exam: ARF 06/02/17 14:58 Consult to Dietitian/Nutrition [CONS] Routine Physician Instructions: Reason For Exam: Reason for Consult: Write/Manage Tube Feeding 06/04/17 11:00 Consult to Physician [CONS] Routine Comment: Add to list Consulting Provider: PRATIK RAMIREZ Physician Instructions: Reason For Exam: Anoxic Brain injury 06/08/17 13:38 Consult to Physician [CONS] Routine Comment: Consulting Provider: TONEY DAVIDSON Physician Instructions: Reason For Exam: Evaluate for Trach and PEG 06/09/17 15:39 Consult to PICC Line RN [CONS] Stat Reason For Exam: midline placement Right ARM only. Type Line:: Midline 06/21/17 13:07 Consult to Physician [CONS] Routine Comment: Consulting Provider: ZHANG SMITH Physician Instructions: Reason For Exam: persistant leukocytosis 06/22/17 18:20 Consult to Physician [CONS] Routine Comment: Consulting Provider: HOLLIS MITCHELL Physician Instructions: Reason For Exam: malfunction PEG tube 06/22/17 21:47 Consult to Wound/ET Nurse [CONS] Routine Reason For Exam: wound eval 06/23/17 09:33 Consult to Interventional Radiology [CONS] Routine Consulting Provider: PRATIK TAY Reason For Exam: replace PEG with G-J, gastroparesis Place consult to:: Arnie Notified:: yes Phone number called:: overhead page Was contact made?: Yes If yes, spoke with:: Arnie Time called:: 11:40 Comment:: will notified Dr Tay Primary care physician: WEED INSPECTOR Hospitalization Reason for admission: anoxic brain injury, seizure, cardiac arrest status post successfull Condition: Poor Pertinent studies: MRI of the brain extensive anoxic brain injury Procedures: PEG and trach placement Hospital course: 36-year-old -[place] female was admitted to the floor for seizure episode, altered mental status, acute hypoxic respiratory failure, patient was intubated in the emergency department patient had PEA and resuscitated successfully. Acute cardiopulmonary arrest, status post CPR 05/30/17. Acute hypoxic respiratory - Acute respiratory failure. Intubated 05/30/17, s/p trach and PEG tube 06/11/17. Acute encephalopathy due to anoxic brain injury - Supportive care Seizure disorder, Generalized tonic-clonic seizures on admission. -Patient is on Keppra Diabetes mellitus with hyperglycemia - Patient is on sliding scale insulin and long-acting insulin Malnutrition - Patient needs G-tube placement Hypertension - Continue home medications Sepsis - Was treated with empiric antibiotics with flagyl and cefepime Patient was discharged to LT[facility]. Patient was in persistent vegetative state. Patient was DNR/DNI. Family refused withdrawal of care. Disposition: [id number] MEDICARE CERT [facility] Time spent for discharge: 35 minutes - Discharge Diagnoses (1) Acute anoxic encephalopathy Status: Acute (2) Acute renal failure with tubular necrosis Status: Acute (3) Acute respiratory failure Status: Acute Qualifiers: Respiratory failure complication: hypoxia Qualified Code(s): J96.01 - Acute respiratory failure with hypoxia (4) Acute systolic heart failure Status: Acute (5) Altered mental state Status: Acute (6) Anemia in chronic illness Status: Acute (7) DVT prophylaxis Status: Acute (8) Dilated cardiomyopathy Status: Acute Core Measure Documentation - Palliative Care Palliative Care/ Comfort Measures: Hospice Care - Core Measures Any of the following diagnoses?: none Exam - Physical Exam Narrative exam: Patient is on PEG and trach. The patient appeared well nourished and normally developed. Vital signs as documented. Head exam is unremarkable. No scleral icterus . Neck is without jugular venous distension, thyromegaly, or carotid bruits. Lungs are clear to auscultation. Cardiac exam reveals regular rate and Rhythm. Abdominal exam reveals G-tube in place. Extremities are nonedematous and both femoral and pedal pulses are normal. MONEY COUNTER: Comatose, persistent vegetative state - Constitutional Vitals: Temp Pulse Resp BP Pulse Ox 98.0 F 94 H 33 H 117/60 98 06/25/17 11:41 06/25/17 11:20 06/25/17 10:00 06/25/17 11:20 06/25/17 10:15 Plan Activity: other (patient is immobile) Weight Bearing Status: Non-Weight Bearing (patient is immobile) Diet: per dietitian instruction Follow up with: PRIMARY CAREMD [Primary Care Provider] - 7 Days
[2017-06-25 15:20] VITALS: BP 116/72
[2017-06-25] MEDS ORDERED: IOPIDINE ONE (15:31)
[2017-06-25] MEDS ORDERED: NEOFRIN ONE (15:32)
== END 2017-06-25 13:00 | DRG 4 ==
LOC: ED 06:46 → CC1 11:38
PROVIDERS: ADMIT Internal Medicine; ATTEND Internal Medicine
PROC: 5A1955Z Respiratory Ventilation, Greater than 96 Consecutive Hours (ICD-10-PCS; 2017-05-30)
PROC: 4A033R1 Measurement of Arterial Saturation, Peripheral, Percutaneous Approach (ICD-10-PCS; 2017-05-30)
PROC: 0BH17EZ Insertion of Endotracheal Airway into Trachea, Via Natural or Artificial Opening (ICD-10-PCS; 2017-05-30)
PROC: 0DH63UZ Insertion of Feeding Device into Stomach, Percutaneous Approach (ICD-10-PCS; 2017-06-09)
PROC: 0B113F4 Bypass Trachea to Cutaneous with Tracheostomy Device, Percutaneous Approach (ICD-10-PCS; principal; 2017-06-11)
PROC: 0DH63UZ Insertion of Feeding Device into Stomach, Percutaneous Approach (ICD-10-PCS; 2017-06-11)
PROC: 0BJ08ZZ Inspection of Tracheobronchial Tree, Via Natural or Artificial Opening Endoscopic (ICD-10-PCS; 2017-06-11)
PROC: 0B9C8ZX Drainage of Right Upper Lung Lobe, Via Natural or Artificial Opening Endoscopic, Diagnostic (ICD-10-PCS; 2017-06-17)
PROC: 30233N1 Transfusion of Nonautologous Red Blood Cells into Peripheral Vein, Percutaneous Approach (ICD-10-PCS; 2017-06-19)
DX: A41.9 Sepsis, unspecified organism (principal); J96.00 Acute respiratory failure, unspecified whether with hypoxia or hypercapnia; N17.0 Acute kidney failure with tubular necrosis; I50.21 Acute systolic (congestive) heart failure; E11.00 Type 2 diabetes mellitus with hyperosmolarity without nonketotic hyperglycemic-hyperosmolar coma (NKHHC); I46.9 Cardiac arrest, cause unspecified; J69.0 Pneumonitis due to inhalation of food and vomit; G93.1 Anoxic brain damage, not elsewhere classified; I42.0 Dilated cardiomyopathy; K94.23 Gastrostomy malfunction; T17.890A Other foreign object in other parts of respiratory tract causing asphyxiation, initial encounter; J98.11 Atelectasis; E46 Unspecified protein-calorie malnutrition; D63.8 Anemia in other chronic diseases classified elsewhere; E11.65 Type 2 diabetes mellitus with hyperglycemia; I11.0 Hypertensive heart disease with heart failure; G40.909 Epilepsy, unspecified, not intractable, without status epilepticus; E87.5 Hyperkalemia; R80.9 Proteinuria, unspecified; E11.43 Type 2 diabetes mellitus with diabetic autonomic (poly)neuropathy; K31.84 Gastroparesis; J01.30 Acute sphenoidal sinusitis, unspecified; Z79.4 Long term (current) use of insulin; Z79.899 Other long term (current) drug therapy; Z90.49 Acquired absence of other specified parts of digestive tract; Z68.29 Body mass index [BMI] 29.0-29.9, adult
CPT/HCPCS: 36415; 36600; 70450; 70551; 71045; 74018; 76770; 80048; 80053; 80074; 80177; 80202; 80307; 81001; 82270; 82570; 82803; 82805; 82947; 82962; 83036; 83735; 84100; 84156; 84300; 85007; 85025; 85027; 85610; 86850; 86900; 86901; 86920; 87040; 87070; 87076; 87116; 87186; 87205; 89050; 93005; 93010; 93306; 94002; 94003; 94760; 95819; 96361; 96365; 96372; 96375; 99291; A9270-GY; J0171; J0360; J0461; J0690; J0692; J1200; J1650; J1815; J1940; J1953; J2060; J2250; J2370; J2543; J2704; J2920; J3010; J3370; J3475; J3480; J7030; J7040; J7042; J7050; J7070; P9016; P9045; P9047; Q9967